=== PATIENT | male | born 1945 | race Caucasian/White ===

== ENCOUNTER 2022-03-11 16:02 | Outpatient (CLI) | payer MEDICARE, SELFPAY | END 2022-03-11 16:03 | disposition home or self-care (01) | LOC: AMB 03-17 11:31 | PROVIDERS: Visit Provider Family Medicine | DX: R07.89 Other chest pain (principal) | CPT/HCPCS: A0425; A0427 ==

== ENCOUNTER 2022-03-11 16:46 | Observation (INO) | payer MEDICARE, SELFPAY ==
[2022-03-11] VITALS (10 sets, daily range): BP systolic 81–109; BP diastolic 51–77; PULSE 81–90; RESP 14–20; TEMP 36–36.4; O2SAT 95–96; BMI 26.0; BMI 26.8
--- NOTE | 2022-03-11 17:12 | CRLHL7_ITS ---
For Patients: As a result of the Century Cures Act, medical imaging exams and procedure reports are released immediately into your electronic medical record. You may view this report before your referring provider. If you have questions, please contact your health care provider. INDICATION: Chest pain TECHNIQUE: Chest 2 views. COMPARISON: None FINDINGS: Cardiovascular and mediastinum: Heart size and vasculature are normal in caliber and appearance. Mediastinum is within normal limits. Sternotomy wires left-sided transvenous pacer device. Lungs and pleural spaces: Lungs are clear. No sign of infiltrate or mass. No sign of pleural effusion. No pneumothorax. Bones and soft tissues: No significant findings. IMPRESSION: Unremarkable chest. Dictated by Gulshan Schroeder MD @ 03/11/2022 5:39:19 PM Dictated by: Gulshan Schroeder MD @ 03/11/2022 17:39:23 (Electronically Signed)
[2022-03-11 17:35] LABS: Troponin, Point-of-Care* 0.03 ng/ml (0.01-0.04)
[2022-03-11 17:37] LABS: Basophils Absolute Auto 0.03 K/uL (0.00-0.30); Basophils Percent Auto 0.4 % (0.0-3.0); Eosinophils Absolute Auto 0.12 K/uL (0.00-0.50); Eosinophils Percent Auto 1.6 % (0.0-7.0); Hematocrit 46.8 % (37.0-53.0); Hemoglobin* 15.9 gm/dL (13.5-17.5); Immature Granulocytes Abs Auto 0.01 K/uL (0.00-0.30); Lymphocytes Absolute Auto 1.78 K/uL (0.90-2.90); Lymphocytes Percent Auto 23.9 % (20-44); Mean Corpuscular HGB Conc 34 gm/dL (32-36); Mean Corpuscular Hemoglobin 34 pg (26-34); Mean Corpuscular Volume 99 fL (80-100); Monocytes Percent Auto 10.5 % (0.0-11.0); Neutrophils Absolute Auto 4.73 K/uL (1.7-7.0); Neutrophils Percent Auto 63.5 % (42.0-72.0); Platelet Count* 95 K/uL (140-440); RDW Coefficient of Variation % 13.4 % (11.5-15.5); Red Blood Count 4.72 m/uL (4.30-5.90); White Blood Count* 7.45 K/uL (4.50-11.00)
[2022-03-11 17:39] LABS: Slide Review Reflex No
--- NOTE | 2022-03-11 17:45 | ED_ITS ---
HPI - General Adult General Chief complaint: Chest Pain Stated complaint: Chest pain Time Seen by Provider: 03/11/22 17:10 History of Present Illness HPI narrative: 76-year-old male coming in today because his defibrillator went off. States that he was in the garage drinking alcohol with his grandson when he felt lightheaded and brought him back in the house and that is when his defibrillator went off. They called EMS and he was transferred here. He states now he feels fine. Denies any chest pain or shortness of breath. He is complaining because he feels hungry. Tells me that at 1st he had a 4-5 liquor drinks then tells me it was only 2-3. He denies any recent illness. No cough, fevers or chills. No changes in his appetite. He denies a headache or blurry vision. His past medical history is significant for coronary artery disease, defibrillator placement, diabetes, hyperlipidemia, congestive heart failure. Related Data Home Medications Medication Instructions Recorded Confirmed albuterol sulfate 90 mcg/actuation 2 inh INHALATION Q8H PRN 03/11/22 03/11/22 aerosol inhaler apixaban 5 mg tablet 5 mg PO Q12H 03/11/22 03/11/22 aspirin 81 mg tablet,delayed 81 mg PO DAILY 03/11/22 03/11/22 release (Adult Aspirin Regimen) atorvastatin 40 mg tablet 40 mg PO DAILY 03/11/22 03/11/22 empagliflozin 25 mg tablet 25 mg PO DAILY 03/11/22 03/11/22 fluticasone propionate 230 2 inh INHALATION BID 03/11/22 03/11/22 mcg-salmeterol 21 mcg/actuation HFA inhaler gabapentin 300 mg capsule 600 mg PO Q8H 03/11/22 03/11/22 glipizide 10 mg tablet 10 mg PO BID 03/11/22 03/11/22 metformin 1,000 mg tablet 500 mg PO BID 03/11/22 03/11/22 nitroglycerin 0.4 mg sublingual 0.4 mg SUBLINGUAL Q5-15M PRN 03/11/22 03/11/22 tablet semaglutide 0.25 mg or 0.5 mg (2 0.5 mg SUBCUT QWEEK 03/11/22 03/11/22 mg/1.5 mL) subcutaneous pen injector vitamin B complex (B 1 tab PO DAILY 03/11/22 03/11/22 Complex-Vitamin B12 tablet) Allergies Allergy/AdvReac Type Severity Reaction Status Date / Time No Known Allergies Allergy Verified 03/11/22 16:58 Review of Systems Status of ROS: Reports: 10 or more systems reviewed and unremarkable except as noted in History and below [facility] Social History Smoking Status: Never smoker Do you use any of these nicotine containing products: None Second hand tobacco smoke exposure: No How often do you have a drink containing alcohol: 2-3 times a week AUDIT-C Alcohol total score: 3 Non-prescribed substance use: denies use service: Yes Exam Narrative: Exam Narrative: Well-nourished well-developed patient in no acute distress. Alert and oriented. Answers questions appropriately. However, he is clearly intoxicated. He can take deep breaths without any discomfort and is not in any respiratory distress. HEENT: Normocephalic. Pupils are equally round reactive to light. Extraocular muscles are intact. Conjunctivae are moist without any icterus noted. Slightly dry mucous membranes. Posterior pharynx is normal. Neck is soft without any lymphadenopathy or thyromegaly. No masses are appreciated. Cardiovascular: Heart is regular rate and rhythm S1 and S2 are present. Lungs: Clear to auscultation bilaterally no wheezes rhonchi or rales are appreciated. Patient takes deep breaths without any discomfort. Abdomen: Soft and nontender nondistended with normal bowel sounds. No guarding or rebound. Extremities: Bilateral lower extremities are without edema. Skin: Well perfused without any obvious rashes. Const: Vital Signs, click to edit/add: Vital Signs - 24 hr 03/11/22 16:51 03/11/22 18:20 03/11/22 18:30 Pulse Rate [Right Pulse Oximeter] 88 Respiratory Rate 18 Blood Pressure [Ri ght Upper Arm] 105/70 96/60 94/57 L Pulse Oximetry 03/11/22 18:31 03/11/22 18:36 03/11/22 18:46 Pulse Rate [Right Pulse Oximeter] Respiratory Rate Blood Pressure [Ri ght Upper Arm] 89/71 L 81/57 L 86/51 L Pulse Oximetry 03/11/22 19:15 Pulse Rate [Right Pulse Oximeter] 81 Respiratory Rate 20 Blood Pressure [Ri ght Upper Arm] 105/70 Pulse Oximetry 95 Course Course Hospital Course: Patient received halfL of normal saline EN route. When he arrived his systolic blood pressure was 105. He was mentating normally. Initial EKG showed normal sinus rhythm with a first-degree AV block and some nonspecific T-wave abnormalities. His troponin was within normal range. Patient was placed on the heart monitor in soon after arrival and was found he had a 13 beat run of V-tach for which he was asymptomatic. Aside from a slightly low potassium labs were unremarkable. I did discuss the patient with Dr. Wallace, cardiology at [facility], who recommended patient be admitted and monitored overnight. He also recommended that his defibrillator be interrogated. We discussed his low blood pressures which had now dropped into the 80s systolic, nursing staff at [facility] was able to see that he was discharged home with a blood pressure of mid [address] Wallace concluded that the patient likely runs very low given his poor EF and was not terribly concerned about this at this time. Vital Signs Vital signs: Initial Vital Signs Pulse Rate 88 03/11/22 16:51 Pulse Rhythm 03/11/22 16:51 Pulse Strength 3+ Normal 03/11/22 16:51 Respiratory Rate 18 03/11/22 16:51 Blood Pressure 105/70 03/11/22 16:51 Blood Pressure Mean 81 03/11/22 16:51 Blood Pressure Position Supine 03/11/22 16:51 Oxygen Delivery Method 03/11/22 16:51 Vital Signs Pulse Rate 88 03/11/22 16:51 Respiratory Rate 18 03/11/22 16:51 Blood Pressure 105/70 03/11/22 16:51 Pulse Rate 81 03/11/22 19:15 Respiratory Rate 20 03/11/22 19:15 Blood Pressure 105/70 03/11/22 19:15 Pulse Oximetry 95 03/11/22 19:15 Medical Decision Making [facility] Narrative Medical decision making narrative: 76-year-old male status post defibrillation will be admitted for observation. He is acutely intoxicated with a blood alcohol is 0.12. He is receiving a L of normal saline right now with added potassium. Magnesium was normal. Patient will be again admitted for further management. Lab Data Lab results reviewed: Yes I reviewed the patient's lab results Labs: Lab Results 03/11/22 03/11/22 03/11/22 Range/Units 17:12 17:23 17:23 WBC 7.45 (4.50-11.00) K/uL RBC 4.72 (4.30-5.90) m/uL Hgb 15.9 (13.5-17.5) gm/dL Hct 46.8 (37.0-53.0) % MCV 99 (80-100) fL MCH 34 (26-34) pg MCHC 34 (32-36) gm/dL RDW Coeff of Fallon 13.4 (11.5-15.5) % Plt Count 95 L (140-440) K/uL Neut % (Auto) 63.5 (42.0-72.0) % Lymph % (Auto) 23.9 (20-44) % [place] % (Auto) 10.5 (0.0-11.0) % Eos % (Auto) 1.6 (0.0-7.0) % Baso % (Auto) 0.4 (0.0-3.0) % Neut # (Auto) 4.73 (1.7-7.0) K/uL Lymph # (Auto) 1.78 (0.90-2.90) K/uL [place] # (Auto) 0.80 (0.00-0.90) K/UL Eos # (Auto) 0.12 (0.00-0.50) K/uL Baso # (Auto) 0.03 (0.00-0.30) K/uL Abs Immat Gran (auto) 0.01 (0.00-0.30) K/uL Sodium 138 (135-149) mmol/L Potassium 3.3 L (3.6-5.1) mmol/L Chloride 108 (96-114) mmol/L Carbon Dioxide 22 (20-32) mmol/L BUN 22 (7-30) mg/dL Creatinine 1.4 (0.5-1.5) mg/dL Estimated Creat Clear 55.33 Estimated GFR 53 ml/min Glucose 102 (60-115) mg/dL Calcium 8.6 (8.4-10.6) mg/dL Magnesium 2.2 (1.5-2.6) mg/dL Total Bilirubin 0.5 (0.1-1.5) mg/dL Direct Bilirubin 0.3 (0.0-0.5) mg/dL AST 43 H (12-35) U/L ALT 41 (4-50) U/L Alkaline Phosphatase 70 (40-150) U/L Total Protein 5.8 L (6.0-8.3) g/dL Albumin 3.7 (3.3-5.0) g/dL Ethyl Alcohol 0.12 H (0.01-0.03) % POC Troponin I 0.03 (0.01-0.04) ng/ml 03/11/22 Range/Units 18:52 WBC (4.50-11.00) K/uL RBC (4.30-5.90) m/uL Hgb (13.5-17.5) gm/dL Hct (37.0-53.0) % MCV (80-100) fL MCH (26-34) pg MCHC (32-36) gm/dL RDW Coeff of Fallon (11.5-15.5) % Plt Count (140-440) K/uL Neut % (Auto) (42.0-72.0) % Lymph % (Auto) (20-44) % [place] % (Auto) (0.0-11.0) % Eos % (Auto) (0.0-7.0) % Baso % (Auto) (0.0-3.0) % Neut # (Auto) (1.7-7.0) K/uL Lymph # (Auto) (0.90-2.90) K/uL [place] # (Auto) (0.00-0.90) K/UL Eos # (Auto) (0.00-0.50) K/uL Baso # (Auto) (0.00-0.30) K/uL Abs Immat Gran (auto) (0.00-0.30) K/uL Sodium (135-149) mmol/L Potassium (3.6-5.1) mmol/L Chloride (96-114) mmol/L Carbon Dioxide (20-32) mmol/L BUN (7-30) mg/dL Creatinine (0.5-1.5) mg/dL Estimated Creat Clear Estimated GFR ml/min Glucose (60-115) mg/dL Calcium (8.4-10.6) mg/dL Magnesium (1.5-2.6) mg/dL Total Bilirubin (0.1-1.5) mg/dL Direct Bilirubin (0.0-0.5) mg/dL AST (12-35) U/L ALT (4-50) U/L Alkaline Phosphatase (40-150) U/L Total Protein (6.0-8.3) g/dL Albumin (3.3-5.0) g/dL Ethyl Alcohol (0.01-0.03) % POC Troponin I 0.04 (0.01-0.04) ng/ml Imaging Data Chest x-ray: Attestation: I have reviewed the pertinent imaging results. My impression: Normal chest Radiologist's impression: FINDINGS: Cardiovascular and mediastinum: Heart size and vasculature are normal in caliber and appearance. Mediastinum is within normal limits. Sternotomy wires left-sided transvenous pacer device. Lungs and pleural spaces: Lungs are clear. No sign of infiltrate or mass. No sign of pleural effusion. No pneumothorax. Bones and soft tissues: No significant findings. IMPRESSION: Unremarkable chest. ECG Data Attestation: I personally reviewed and interpreted this ECG as follows: (Normal sinus rhythm with first-degree AV block and nonspecific T-wave abnormality) Discharge Plan Discharge Prescriptions: No Action albuterol sulfate 90 mcg/actuation HFA aerosol inhaler 2 inh inhalation Q8H PRN0RF apixaban 5 mg tablet 5 mg PO Q12H 0RF atorvastatin 40 mg tablet 40 mg PO DAILY 0RF empagliflozin 25 mg tablet 25 mg PO DAILY 0RF fluticasone propion-salmeterol 230-21 mcg/actuation HFA aerosol inhaler 2 inh inhalation BID 0RF gabapentin 300 mg capsule 600 mg PO Q8H 0RF glipizide 10 mg tablet 10 mg PO BID 0RF metformin 1,000 mg tablet 500 mg PO BID 0RF nitroglycerin 0.4 mg tablet, sublingual 0.4 mg sublingual Q5-15M PRN0RF Rx Instructions: do not exceed 3 doses per episode semaglutide 0.25 mg or 0.5 mg(2 mg/1.5 mL) pen injector 0.5 mg subcut QWEEK 0RF vitamin B complex [B Complex-Vitamin B12] Tablet 1 tab PO DAILY 0RF aspirin [Adult Aspirin Regimen] 81 mg tablet,delayed release (/EC) 81 mg PO DAILY 0RF Follow Up/Referrals: Provider,Not a Local [Primary Care Provider] -
[2022-03-11 17:59] LABS: Albumin* 3.7 g/dL (3.3-5.0); Chloride* 108 mmol/L (96-114); Potassium* 3.3 mmol/L (3.6-5.1); Sodium* 138 mmol/L (135-149)
[2022-03-11 18:01] LABS: Creatinine* 1.4 mg/dL (0.5-1.5); Est. Creatinine Clearance* 55.33; Estimated Glomerular Filt Rate 53 ml/min
[2022-03-11 18:02] LABS: Alanine Aminotransferase* 41 U/L (4-50); Alkaline Phosphatase* 70 U/L (40-150); Aspartate Amino Transferase* 43 U/L (12-35); Bilirubin Direct* 0.3 mg/dL (0.0-0.5); Bilirubin Total* 0.5 mg/dL (0.1-1.5); Blood Urea Nitrogen* 22 mg/dL (7-30); Calcium* 8.6 mg/dL (8.4-10.6); Carbon Dioxide* 22 mmol/L (20-32); Glucose* 102 mg/dL (60-115); Total Protein* 5.8 g/dL (6.0-8.3)
[2022-03-11 18:03] LABS: Ethanol* 0.12 % (0.01-0.03)
--- NOTE | 2022-03-11 18:45 | ED.NURSE ---
13 beats vtach at 1826. aware.
[2022-03-11 18:54] LABS: Magnesium* 2.2 mg/dL (1.5-2.6)
[2022-03-11] MEDS: 0.9 % SODIUM CHLORIDE 1000 ml 1,000 ML IV (18:56)
[2022-03-11 19:24] LABS: Troponin, Point-of-Care* 0.04 ng/ml (0.01-0.04)
[2022-03-11] MEDS: POTASSIUM CHLORIDE 10 MEQ/100 ML PIGGYBACK 100 MEQ IVPB (19:26)
--- NOTE | 2022-03-11 19:52 | W.PC.EDHO ---
Primary Language: Preferred Language: Orientation Status: [X] Alert & Oriented [] Slight Confusion [] Known Dx Dementia Transfers By: [x] Assist of 1 [] Assist of 2 [] Lift Active Medications Generic Name Dose Route Start Last Admin Trade Name Freq PRN Reason Stop Dose Admin Potassium Chloride 10 meq in 100 mls @ 100 mls/hr 03/11/22 18:51 03/11/22 19:26 Potassium Chloride IVPB 03/11/22 19:50 100 mls/hr ONCE ONE Administration Discontinued Medications Generic Name Dose Route Start Last Admin Trade Name Freq PRN Reason Stop Dose Admin Sodium Chloride 1,000 mls @ 1,000 mls/hr 03/11/22 18:45 03/11/22 18:56 0.9 % Sodium Chloride 1000 Ml IV 03/11/22 19:44 1,000 mls/hr .Q1H EMMANUEL Administration Description of Symptoms ED Triage Present Problem BIBA after defib fired. Hx of triple bipass and Description pacemaker, MIx3, DM. Was drinking etoh this afternoon - started feeling weak and went to lay down and defib fired. Nitro given by EMS ED Triage Date of Onset of 03/11/22 Symptoms IV Insertion/Site Date of IV Line Insertion [ 03/11/22 Left Forearm] Oxygen Administration Pulse Oximetry 95 Oxygen Delivery Method Room Air Oxygen Delivery Method Room Air Cardiac Monitoring EKG Method [employer] EKG Method 12 Lead EKG Method 12 Lead EKG Method 12 Lead
--- NOTE | 2022-03-11 20:28 | PM.IMHP1 ---
Hospitalist- H&P: HPI History of Present Illness Time Seen by Provider: 19:00 Date Seen: 03/11/22 Chief complaint: Chest pain Narrative: Gulshan Crouch is a 76 year old man who presents the emergency department after summoning 911 help after his automatic implantable defibrillator discharged today. He was in his usual state of health until his fibrillator discharge this afternoon. Earlier in the day he had been outside using his ?weed whacker.? After this work he went to the [facility] where he was drinking gagandeep and Coke with a friend. Initially he tells the physician in the emergency department that he drank perhaps 4-5 such drinks. Subsequently he told the same emergency department physician that he may be drink 2 to 3 such drinks. By the time I ask him how much he had drank he tells me he had 2 drinks. Subsequently, he went inside his home because he was feeling somewhat dizzy. This is when he felt his defibrillator discharge. He states that it felt like a light discharge compared to what he has experienced in the past. The last time he had an experience with his defibrillator discharging was about 3 years ago, when he had 6 discharges in a role. In August or September of this year he had a new defibrillator implanted. This is the 1st time that he has felt his defibrillator discharge since the episode 3 years ago. Denies chest heaviness, pressure, tightness, or pain. Denies syncope or near-syncope. Often feels lightheaded. States systolic blood pressures tend to run low. Denies cough for shortness of breath. No other anginal equivalent. Denies palpitations. Denies fevers, rigors, diaphoresis. No recent trauma or injury. Denies nausea or vomiting. Denies dyspepsia. States he is hungry. No recent increase in lower extremity edema. States bowel and bladder function are functioning normally. Denies any new focal motor neurologic deficits. States blood sugars have been well controlled. Denies hypoglycemia. Review of Systems Status of ROS: Reports: 10 or more systems reviewed and unremarkable except as noted in History and below Narrative: Tells me he ordinarily drinks perhaps 2-3 drinks 2-3 times per week. Denies use of street or recreational drugs. Continues to smoke roughly 3/4 of pack cigarettes per day. He tells me he receives his medical care at the [place], [place]. Primary care physician is Dr. Efren Monteiro. 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 Timo cell phone number is [phone]. Timo's home phone number is [phone]. Lives with his son, [id number], granddaughter. He is a for the past 2 years. He starting to date once again. Also has a dog and a cat. Retired. PFSH PFS Social History Smoking Status: Never smoker Do you use any of these nicotine containing products: None Second hand tobacco smoke exposure: No How often do you have a drink containing alcohol: 2-3 times a week AUDIT-C Alcohol total score: 3 Non-prescribed substance use: denies use service: Yes Meds Home Medications and Allergies Home Medications Medication Instructions Recorded Confirmed Type albuterol sulfate 90 mcg/actuation 2 inh INHALATION Q8H PRN 03/11/22 03/11/22 History aerosol inhaler apixaban 5 mg tablet 5 mg PO Q12H 03/11/22 03/11/22 History aspirin 81 mg tablet,delayed 81 mg PO DAILY 03/11/22 03/11/22 History release (Adult Aspirin Regimen) atorvastatin 40 mg tablet 40 mg PO DAILY 03/11/22 03/11/22 History empagliflozin 25 mg tablet 25 mg PO DAILY 03/11/22 03/11/22 History fluticasone propionate 230 2 inh INHALATION BID 03/11/22 03/11/22 History mcg-salmeterol 21 mcg/actuation HFA inhaler gabapentin 300 mg capsule 600 mg PO Q8H 03/11/22 03/11/22 History glipizide 10 mg tablet 10 mg PO BID 03/11/22 03/11/22 History metformin 1,000 mg tablet 500 mg PO BID 03/11/22 03/11/22 History nitroglycerin 0.4 mg sublingual 0.4 mg SUBLINGUAL Q5-15M PRN 03/11/22 03/11/22 History tablet semaglutide 0.25 mg or 0.5 mg (2 0.5 mg SUBCUT QWEEK 03/11/22 03/11/22 History mg/1.5 mL) subcutaneous pen injector vitamin B complex (B 1 tab PO DAILY 03/11/22 03/11/22 History Complex-Vitamin B12 tablet) Home Medication Comments: Taking his medications as prescribed. Allergies Allergy/AdvReac Type Severity Reaction Status Date / Time No Known Allergies Allergy Verified 03/11/22 16:58 Exam Narrative: Exam Narrative: Awake. Alert. Articulate. Oriented to self, place, time, situation. Seems somewhat jovial. Mood and affect are congruent. Symmetrically mildly decreased hearing bilaterally. Vision is preserved. No icterus or conjunctival injection. Midline nasal septum. Buccal mucosa is dry with dentition in fair repair. Midline trachea. Normal thyroid. Neck supple. Lungs clear to auscultation, without wheezing, rhonchi, or rales. Chest wall excursions are full. No CVA tenderness. Heart tones with regular rhythm, normal S1-S2, no murmur, gallop, or rub. Abdomen is obese with active bowel sounds, soft, nontender. Extremities without edema bilaterally. Skin is dry, warm, intact. No petechiae, cyanosis, or rashes. No focal motor neurologic deficits. No tremor, asterixis, or ataxia. Independent with transfers, station, and gait. Const: Vital Signs, click to edit/add: Vital Signs - 24 hr 03/11/22 16:51 03/11/22 18:20 03/11/22 18:30 Pulse Rate [Right Pulse Oximeter] 88 Respiratory Rate 18 Blood Pressure [Ri ght Upper Arm] 105/70 96/60 94/57 L Pulse Oximetry 03/11/22 18:31 03/11/22 18:36 03/11/22 18:46 Pulse Rate [Right Pulse Oximeter] Respiratory Rate Blood Pressure [Ri ght Upper Arm] 89/71 L 81/57 L 86/51 L Pulse Oximetry 03/11/22 19:15 03/11/22 20:08 Pulse Rate [Right Pulse Oximeter] 81 81 Respiratory Rate 20 14 Blood Pressure [Ri ght Upper Arm] 105/70 108/67 Pulse Oximetry 95 95 Hospitalist - H&P: Result Labs Labs: Short CBC 03/11/22 Range/Units 17:23 WBC 7.45 (4.50-11.00) K/uL Hgb 15.9 (13.5-17.5) gm/dL Hct 46.8 (37.0-53.0) % Plt Count 95 L (140-440) K/uL BMP 03/11/22 17:23 Sodium 138 Potassium 3.3 L Chloride 108 Carbon Dioxide 22 BUN 22 Creatinine 1.4 Glucose 102 Calcium 8.6 Liver Function 03/11/22 Range/Units 17:23 Total Bilirubin 0.5 (0.1-1.5) mg/dL Direct Bilirubin 0.3 (0.0-0.5) mg/dL AST 43 H (12-35) U/L ALT 41 (4-50) U/L Alkaline Phosphatase 70 (40-150) U/L Albumin 3.7 (3.3-5.0) g/dL ECG ECG interpretation date: 03/11/22 ECG interpretation time: 19:00 Prior ECG tracings: available for review Interpretation: Normal sinus rhythm with first-degree AV block. Imaging Chest x-ray: Attestation: I have reviewed the pertinent imaging results. Radiologist's impression: No acute changes. Status post open heart surgery in the past. Implanted defibrillator with leads appropriately placed. Assessment and Plan Assessment and plan (1) Defibrillator discharge: Status: Acute Assessment and Plan: Likely the defibrillator discharged due to ischemic cardiomyopathy, chronic dysrhythmia, and exacerbated by alcohol consumption, dehydration from working outdoors. Admit to observation. Monitor on telemetry. Monitor trop I's serially and ECG. Will need defibrillator interrogation in near future. Continue with current medical support. (2) Ventricular tachycardia: Status: Acute Assessment and Plan: 13 beat run in the ED today. Reviewed with superintendent plant who indicates that this is chronic. (3) AICD (automatic cardioverter/defibrillator) present: Status: Acute (4) Ischemic cardiomyopathy with implantable cardioverter-defibrillator (ICD): Problem comment: EF ~20% 2006 ECHO Status: Acute (5) Coronary artery disease: Problem comment: 1995 inferior VA, PTCA 06/13/11 CABG x 3 vessels: DEAL to LAD, SVG to PDA, SVG to OM per Dr. Pineda Status: Acute Assessment and Plan: Continue with supportive medications (6) Hypertension: Status: Acute (7) Diabetes mellitus type 2 in obese: Status: Acute Assessment and Plan: Continue with current meds. Monitor FSBG while in hospital QID and cover with SS insulin. (8) Combined systolic and diastolic congestive heart failure, NYHA class 2: Status: Acute (9) Combined systolic and diastolic ACC/AHA stage C congestive heart failure: Status: Acute (10) Dyslipidemia associated with type 2 diabetes mellitus: Status: Acute (11) Chronic anticoagulation: Problem comment: Apixaban 5 mg po BID Status: Acute (12) Atrial fibrillation: Status: Acute Assessment and Plan: Currently in NSR (13) Tobacco dependence: Status: Acute Assessment and Plan: He declines nicotine support in hospital Will nonetheless order nicotine inhaler PRN (14) Alcohol intoxication: Status: Acute Assessment and Plan: Patient is giving us mixed messages about his drinking habits. [facility] protocol monitoring and coverage in hospital. Strongly cautioned him about the increased risk of his defibrillator discharging when acutely intoxicated with alcohol. Plan 1. Reviewed my impression with the patient and his son, Timo. Answered their questions. Patient and son are agreeable to admission to observation. 2. Asked the patient if he could bring in his device so that we can interrogate his defibrillator. He refused to do so. He states that he will do so once he returns to his home and provide that information to the [facility] in [place], [place]. 3. Discussed general measures of maintaining his state of hydration during this very hot weather that we are now having.
[2022-03-11 21:12] LABS: SARS PCR* Negative SARS-CoV-2 (Negative)
[2022-03-11] MEDS: METFORMIN 1,000 MG TABLET 500 MG PO (22:48)
[2022-03-11] MEDS: glipiZIDE 5 MG TABLET 10 MG PO (22:49)
[2022-03-11] MEDS: GABAPENTIN 300 MG CAPSULE 600 MG PO (22:50)
[2022-03-11] MEDS: POTASSIUM BICARB 25 MEQ EFFERVESCENT TAB PO (22:51)
[2022-03-11] MEDS: APIXABAN 5 MG TABLET PO (22:51)
[2022-03-11 23:06] LABS: Phosphorus* 3.4 mg/dL (2.5-4.5)
[2022-03-11 23:19] LABS: Troponin I* 0.04 ng/mL (0.01-0.04)
[2022-03-12] MEDS: POTASSIUM BICARB 25 MEQ EFFERVESCENT TAB PO (01:48)
[2022-03-12 04:00] VITALS: BP 101/67; PULSE 78; RESP 20; TEMP 36.2; O2SAT 92
--- NOTE | 2022-03-12 06:05 | PC.ADMIT ---
[email or web address] [facility] Admission Note:admitted from the ED at 2130. Stable on arrival. patient vitals taken and oriented to the room The patient,Gulshan Crouch,76 y/o, was given written information regarding hospital policies, unit procedures and contact persons. Patient's smoking status: Never smoker. Vital Signs - 8 hr 03/12/22 04:00 Temperature 97.2 F L Pulse Rate [Pulse Oximeter] 78 Respiratory Rate 20 Blood Pressure [Right Arm] 101/67 Pulse Oximetry 92
--- NOTE | 2022-03-12 06:06 | PC.NURSE ---
Alert and oriented x4. Admitted overnight with stable vitals. No new concerns noted overnight. Remained on continuous telemetry and oximety monitoring.
[2022-03-12] MEDS: GABAPENTIN 300 MG CAPSULE 600 MG PO (06:18)
[2022-03-12 07:00] VITALS: BP 99/66; PULSE 73; PULSE 77; RESP 18; TEMP 36.6; O2SAT 93
[2022-03-12] MEDS: glipiZIDE 5 MG TABLET 10 MG PO (07:43)
[2022-03-12] MEDS: METFORMIN 1,000 MG TABLET 500 MG PO (07:43)
--- NOTE | 2022-03-12 08:16 | PC.NURSE ---
UPDATED ON NO LABS DRAWN THIS MORNING, PER MD NO LAB DRAW NEEDED THIS MORNING.
[2022-03-12] MEDS: ASPIRIN 81 MG TABLET EC PO (08:36)
[2022-03-12] MEDS: ATORVASTATIN CALCIUM 40 MG TABLET PO (08:36)
[2022-03-12] MEDS: APIXABAN 5 MG TABLET PO (08:36)
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
[2022-03-12 09:15] LABS: Chloride* 111 mmol/L (96-114); Glucose* 229 mg/dL (60-115); Potassium* 4.6 mmol/L (3.6-5.1); Sodium* 141 mmol/L (135-149)
[2022-03-12 09:16] LABS: Blood Urea Nitrogen* 20 mg/dL (7-30); Calcium* 8.5 mg/dL (8.4-10.6); Carbon Dioxide* 21 mmol/L (20-32); Creatinine* 1.2 mg/dL (0.5-1.5); Est. Creatinine Clearance* 64.55; Estimated Glomerular Filt Rate 63 ml/min
[2022-03-12 09:30] LABS: Albumin* 3.7 g/dL (3.3-5.0); Phosphorus* 3.2 mg/dL (2.5-4.5); Troponin I* 0.04 ng/mL (0.01-0.04)
--- NOTE | 2022-03-12 10:01 | PC.NURSE ---
Discharge: Pt. is alert and oriented x3. Cooperative and pleasant. Pt. denies any chest pain, pain, N/V. Pt. has 1 degree AV block w/BBB on tele. Pt. is on room air, IV left forearm is patent and intact. Removed at 1000 prior to discharge. Discharge instructions signed. Pt. awaiting on ride home will be leaving around 1030.
--- OUTSIDE RECORDS SUMMARY | 2022-04-02 16:02 | XMS_ITS | Continuity of Care Document ---
:1945 Author Organization [facility] Care Team Providers Name Role Phone [facility] Unavailable Unavailable Problems Combined list of problems from Department of Defense and [facility] facilities. It does not include entries that were removed or entered in error. Problem Status Onset Problem Date of Comments Source Date Type Resolution Chronic systolic Active Condition Jun 21, [place] heart failure 011 2014 Entered [facility] By: SAKSHI CROUCH Comment: S/P ICD placement in 2011. January 17, 2021 Entered By: SAKSHI CROUCH Comment: Echo (12/2020 ANW) EF 23%, LAE, mod global hypokinesis. Coronary artery Active Condition Jun 21, [place] disease 994 2014 Entered [facility] By: SAKSHI CROUCH Comment: S/P inferior [place] in 1993. Jun 21, 2015 Entered By: SAKSHI CROUCH Comment: S/P atherectomy RCA in 1993. Jun 21, 2015 Entered By: SAKSHI CROUCH Comment: S/P CABG x 3 in 2010. Cardiac defibrillator Active Condition [place] in situ [facility] Chronic low back pain Active Condition [facility] [place] Chronic obstructive Active Condition Jun 26 [place] pulmonary disease 2010 Entered [facility] (SNOMED CT [id number]) By: SAKSHI CROUCH Comment: FEV1/FVC (05/2011) 2.47/3.46. FEV1 58% pred. FEV1% 70. History of Active Condition [place] adenomatous polyp of [facility] colon (SNOMED CT 414043399) Hyperlipidemia Active Condition [place] [facility] Hypertension Active Condition [place] [facility] Peripheral neuropathy Active Condition [facility] Persistent atrial [place] fibrillation [facility] Status post left Active Condition [place] inguinal hernia [facility] CS repair Thrombocytopenia Active [place] (SNOMED CT [id number]) [facility] Tobacco use Active Condition [place] [facility] Type 2 diabetes Active Condition [place] mellitus [facility] Unifocal PVCs [facility] POL[facility] Diagnosis: ICD-10-CM active Diagnosis [place] I50.9 Heart failure, [facility] unspecifiedwith Provider Comments: Heart Failure, unspecified Diagnosis: ICD-10-CM active Diagnosis [place] E11.9 Type 2 diabetes [facility] mellitus without complicationswith Provider Comments: Type 2 diabetes mellitus ([facility] [id number]) Diagnosis: ICD-10-CM active Diagnosis [place] Z95.810 Presence of [facility] automatic (implantable) cardiac defibrillatorwith Provider Comments: Cardiac defibrillator in situ ([facility] [id number]) Diagnosis: ICD-10-CM active Diagnosis [place] Z51.81 Encounter for [facility] therapeutic drug level monitoringwith Provider Comments: Encounter for therapeutic drug level monitoring Diagnosis: ICD-10-CM active Diagnosis [place] I48.19 Other [facility] persistent atrial fibrillationwith Provider Comments: Persistent atrial fibrillation ([facility] [id number]) Admit Reason: PVI GEN active Diagnosis [place] CHANGE [facility] Diagnosis: ICD-10-CM active Diagnosis [place] D69.6 [facility] Thrombocytopenia, unspecifiedwith Provider Comments: Thrombocytopenia ([facility] [id number]) Diagnosis: ICD-10-CM active Diagnosis [place] I51.7 [facility] Cardiomegalywith Provider Comments: Cardiomegaly Diagnosis: ICD-10-CM active Diagnosis [place] Z01.818 Encounter for [facility] other preprocedural examinationwith Provider Comments: Encounter for other preprocedural examination Diagnosis: ICD-10-CM active Diagnosis [place] I49.3 Ventricular [facility] premature depolarizationwith Provider Comments: Unifocal PVCs ([facility] [id number]) Diagnosis: ICD-10-CM active Diagnosis [place] Z01.818 Encounter for [facility] other preprocedural examinationwith Provider Comments: Encounter for other Preprocedural Examination Diagnosis: ICD-10-CM active Diagnosis [place] Z95.810 Presence of [facility] automatic (implantable) cardiac defibrillatorwith Provider Comments: Presence of automatic (implantable) cardiac defibrillator Diagnosis: ICD-10-CM active Diagnosis [place] I47.2 Ventricular [facility] tachycardiawith Provider Comments: Ventricular tachycardia Diagnosis: ICD-10-CM active Diagnosis [place] Z13.6 Encounter for [facility] screening for cardiovascular disorderswith Provider Comments: Encounter for Screening for Cardiovascular Disorders Diagnosis: ICD-10-CM active Diagnosis [place] I50.22 Chronic [facility] systolic (congestive) heart failurewith Provider Comments: Chronic systolic heart failure ([facility] [id number]) Diagnosis: ICD-10-CM active Diagnosis [place] J44.9 Chronic [facility] obstructive pulmonary disease, unspecifiedwith Provider Comments: Chronic obstructive pulmonary disease ([facility] [id number]) Diagnosis: ICD-10-CM active Diagnosis [place] Z79.01 longterm [facility] (current) use of anticoagulantswith 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 Diagnosis: ICD-10-CM active Diagnosis [place] Z71.81 Spiritual or [facility] mu-ism counselingwith Provider Comments: Spiritual or mu-ism counseling Admit Reason: active Diagnosis [place] A-FIB,DOFETILIDE LOAD [facility] Diagnosis: ICD-10-CM active Diagnosis [place] I50.22 Chronic [facility] S systolic (congestive) heart failurewith Provider Comments: Chronic Systolic (Congestive) Heart Failure Diagnosis: ICD-10-CM active Diagnosis [place] E11.9 Type 2 diabetes [facility] mellitus without complicationswith Provider Comments: Type 2 diabetes mellitus without complications Diagnosis: ICD-10-CM active Diagnosis [place] J44.9 Chronic [facility] obstructive pulmonary disease, unspecifiedwith Provider Comments: COPD, Stable Diagnosis: ICD-10-CM active Diagnosis [place] I48.19 Other [facility] persistent atrial fibrillationwith Provider Comments: Persistent atrial fibrillation (SNOMED CT [id number]) Diagnosis: ICD-10-CM active Diagnosis [place] G63 Polyneuropathy in [facility] diseases classified elsewherewith Provider Comments: Peripheral neuropathy ([facility] [id number]) Diagnosis: ICD-10-CM active Diagnosis [place] M54.17 Radiculopathy, [facility] lumbosacral regionwith Provider Comments: Radiculopathy, [place] Medications Combined list of outpatient medications from Department of Defense and Veterans Affairs facilities. Medications provided include 1) outpatient medications from the last 15 months, and 2) patient-reported medications. Medication Details Route Status Patient Prescription Prescription Last Ordering Order Source Instructions Expires Number Dispense Provider Date Date ADVAIR HFA Active [id number] [place] 12/24 3/ Pharmac (FLUTICASON 1 R,MAXIMILIANO 2020 y Da ta E/SALMETERO Transac L), tion 115-21MCG, Service HFA AER AD, Facilit INHALATION, y GLAXOSMITHK LINE, 12 g CANISTER ALBUTEROL INHALE 2 INHALA ACTIVE 08/11/2022 [id number] JENIFFER GALLEGOS, 08/10/ [place] 90MCG/ACTUA PUFFS BY TION 2 JAYY L 2020 [place] [facility] T (CFC-F) INHALATI HCS INHL,ORAL,8 ON FOUR .5GM DOSE TIMES A COUNTER DAY NEEDED FOR SHORTNES S OF BREATH *SHAKE WELL* (FOR IMMEDIAT E RELIEF) ALBUTEROL INHALE 2 INHALA DISCONT 06/21/2021 [id number] H LISA,BR 06/22/ [place] 90MCG/ACTUA PUFFS BY TION INUE 1 UCE R 2020 [place] VA T (CFC-F) INHALATI HCS INHL,ORAL,8 ON FOUR .5GM DOSE TIMES A COUNTER DAY NEEDED FOR SHORTNES S OF BREATH *SHAKE WELL* (FOR IMMEDIAT E RELIEF) APIXABAN 5 TAKE ONE Active 03/27/2022 [id number] HELMR ICK, 06/01/ [place] MG ORAL TAB TABLET 1 2020 [place] BY MOUTH [facility] EVERY 12 HOURS TO PREVENT BLOOD CLOTS, STROKE APIXABAN 5 TAKE ONE Discont 01/19/2022 [id number] HOWL ETT, 03/27/ [place] MG ORAL TAB TABLET inued 1 MEGHAN Y 2020 alok s BY MOUTH [facility] EVERY 12 HOURS TO PREVENT BLOOD CLOTS, STROKE APIXABAN 5 TAKE ONE Discont 02/14/2021 [id number] THOL AKANA 01/19/ [place] MG ORAL TAB TABLET inued 1 BOOGIE2020 [place] BY MOUTH [facility] TWICE A ISHNA DAY TO [facility] PREVENT BLOOD CLOTS APIXABAN TAKE ONE ORALLY ACTIVE 03/27/2022 [id number] HELMRI CK, 03/26/ [place] 5MG TAB TABLET 2 2020 [place] BY MOUTH [facility] EVERY 12 HOURS TO PREVENT BLOOD CLOTS, STROKE APIXABAN TAKE ONE ORALLY DISCONT 01/19/2022 [id number] HOW EVELIO,K 01/18/ [place] 5MG TAB TABLET INUED 1 RISTIN Y 2020 [place] BY MOUTH (EDIT) [facility] EVERY 12 HOURS TO PREVENT BLOOD CLOTS, STROKE APIXABAN TAKE ONE ORALLY DISCONT 02/14/2021 [id number] THO LAKANA 01/17/ [place] 5MG TAB TABLET INUED 1 BOOGIE,[facility] 2020 [place] BY MOUTH (EDIT) [facility] TWICE A NA NARAS DAY TO PREVENT BLOOD CLOTS ASCORBIC TAKE TWO ACTIVE JJ PELAEZ [place] ACID 500MG TABLETS JONI A 2020 [place] [facility] TAB EVERY HCS DAY atorvastati TAKE Active 06/21/2022 [id number] IWLLA, 12/29/ [place] n (U/D) 80 ONE-HALF 2 SAKSHI R 2021 [place] MG ORAL TAB TABLET [facility] BY MOUTH AT BEDTIME FOR CHOLESTE ROL atorvastati TAKE Discont 10/31/2021 [id number] WILLA , 06/23/ [place] n (U/D) 80 ONE-HALF inued 1 SAKSHI R 2020 [place] MG ORAL TAB TABLET [facility] BY MOUTH AT BEDTIME FOR CHOLESTE ROL ATORVASTATI TAKE ORALLY ACTIVE 06/21/2022 [id number] RACHEL Kumar,BR 09/01/ [place] 80MG ONE-HALF 2 UCE R 2021 [place] TAB TABLET HCS BY MOUTH AT BEDTIME FOR CHOLESTE ROL ATORVASTATI TAKE ORALLY DISCONT 10/31/2021 [id number] H LISA,JORGE ALBERTO 11/30/ [place] CA 80MG ONE-HALF INUE 1 R 2020 [place] TAB TABLET HCS BY MOUTH AT BEDTIME FOR CHOLESTE ROL cephALEXin TAKE ONE 12/29/2021 [id number] PETER GAITAN 12/02/ [place] (U/D) 500 CAPSULE 2 CHERRY 2021 [place] MG ORAL CAP BY MOUTH VA TWICE A DAY FOR 3 DAYS - AFTER CIED PROCEDUR E - CEPHALEXIN TAKE ONE ORALLY 12/29/2021 [id number] Mehran CEVALLOS I 11/30/ [place] 500MG CAP CAPSULE 2 [id number] [place] BY MOUTH HCS TWICE A DAY FOR 3 DAYS - AFTER CIED PROCEDUR E - DIGOXIN Active [id number] CHARITY 01/14/ Pharmac (digoxin), 1 ,AVERY 2020 y Data 125 MCG, Transac TABLET, tion ORAL, Service [facility] Facilit RX LL, 100 y ea. BOTTLE digoxin TAKE ONE Discont 01/16/2022 [id number] THOLAKA NA 03/25/ [place] (U/D) 125 TABLET inued 1 2020 [place]is MCG ORAL BY MOUTH VENKATAKR [facility] TAB EVERY ISHNA DAY MELANY DIGOXIN TAKE ONE ORALLY DISCONT 01/16/2022 [id number] THOLAK EBONY 01/15/ [place] 0.125MG TAB TABLET INUED 1 BOOGIE,LAUREANO 2020 ALOK S VA BY MOUTH [place] [facility] EVERY NA NARAS DAY DOFETILIDE TAKE ONE Discont 06/21/2021 [id number] ANDRADE NGI, 04/04/ [place] 250 MCG CAPSULE inued 1 RODO S 2020 [place]is ORAL CAP BY MOUTH [facility] TWICE A DAY FOR HEART RHYTHM CONTROL DOFETILIDE TAKE ONE ORALLY DISCONT 06/21/2021 [id number] V ELANGI,P 03/23/ [place] 250MCG CAP CAPSULE INUED 1 RATIK S 2020 [place] VA BY MOUTH HCS TWICE A DAY FOR HEART RHYTHM CONTROL ELIQUIS Active [id number] OGINO 01/14/ (APIXABAN), 1 ,AVERY 2020 y Data 5 MG, Transac TABLET, tion ORAL, [facility] Facilit , 60 ea. y BOTTLE EMPAGLIFLOZ TAKE ONE Active 06/21/2022 [id number] BHASKAR ON, 01/21/ [place] IN 25 MG TABLET 2 SAKSHI R 2021 [place] ORAL TAB BY MOUTH [facility] EVERY DAY EMPAGLIFLOZ TAKE ONE Discont 01/30/2022 [id number] PRISCA SON, 06/23/ [place] IN 25 MG TABLET inued 1 SAKSHI R 2020 [place] ORAL TAB BY MOUTH [facility] EVERY DAY EMPAGLIFLOZ TAKE ONE Discont 11/16/2021 [id number] COPE SON, [place] IN 25 MG TABLET inued 1 SAKSHI R 2020 [place] ORAL TAB BY MOUTH [facility] EVERY DAY EMPAGLIFLOZ TAKE ONE ORALLY ACTIVE 06/21/2022 [id number] JORGE ALBERTO CROUCH 07/03/ [place] IN 25MG TAB TABLET 2 [facility] R 2020 [place] [facility] BY MOUTH HCS EVERY DAY EMPAGLIFLOZ TAKE ONE ORALLY DISCONT 01/30/2022 [id number] JORGE ALBERTO CROUCH 03/15/ [place] IN 25MG TAB TABLET INUE 1 [facility] R 2020 [place] [facility] BY MOUTH HCS EVERY DAY EMPAGLIFLOZ TAKE ONE ORALLY DISCONT 11/16/2021 [id number] JORGE ALBERTO CROUCH 11/20/ [place] IN 25MG TAB TABLET INUE 1 [facility] 2020 [place] [facility] BY MOUTH HCS EVERY DAY FLUTICASONE INHALE 1 INHALA DISCONT 01/30/2022 [id number] JORGE ALBERTO CROUCH 04/07/ [place] 230MCG/SALM PUFF BY TION INUED 1 [facility] 2020 OL[place] V A ETEROL INHALATI HCS 21MCG ON EVERY INHL,ORAL,1 12 HOURS 2GM RINSE MOUTH AFTER EACH USE; REPLACES SYMBICOR T FLUTICASONE INHALE 1 INHALA DISCONT 04/15/2021 [id number] THOLAKANA 01/17/ [place] 230MCG/SALM PUFF BY TION INUE 1 [facility] 2020 OL [place] VA ETEROL INHALATI [place] [facility] 21MCG ON EVERY NA NARAS INHL,ORAL,1 12 HOURS 2GM RINSE MOUTH AFTER EACH USE; REPLACES SYMBICOR T Fluticasone INHALE 1 Discont 01/30/2022 [id number] COPE SON, 07/15/ [place] Propionate PUFF inued 1 [facility] 2020 olis 0.23mg/Actu BYINHALA [facility] at + TION Salmeterol EVERY 12 0.021mg/Act HOURS uat, RINSE Aerosol, MOUTH Inhalation AFTER EACH USE; REPLACES SYMBICOR T Fluticasone INHALE 1 Discont 04/15/2021 [id number] THO LAKANA 02/01/ [place] Propionate PUFF BY inued 1 BOOGIE2020 ol[place] 0.23mg/Actu INHALATI VENKATAKR V [facility] at + ON EVERY ISHNA Salmeterol 12 HOURS MELANY 0.021mg/Act RINSE uat, MOUTH Aerosol, AFTER Inhalation EACH USE; REPLACES SYMBICOR T FUROSEMIDE Active [id number] [place] 05/2 3/ Pharmac (FUROSEMIDE 1 ,AVERY 2020 y Data ), 40MG, Transac TABLET, tion ORAL, Service MYLAN, 1000 Facilit ea. BOTTLE y FUROSEMIDE TAKE ONE Active 06/21/2022 [id number] HANSO N, 01/21/ [place] (U/D) 40 MG TABLET 2 SAKSHI R 2021 [place] ORAL TAB BY MOUTH [facility] EVERY DAY FUROSEMIDE TAKE ONE Discont 01/16/2022 [id number] THOL AKANA 06/23/ [place] (U/D) 40 MG TABLET inued 1 2020 olis ORAL TAB BY MOUTH [facility] EVERY ISHNA DAY MELANY FUROSEMIDE TAKE ONE ORALLY SUSPEND 06/21/2022 [id number] JORGE ALBERTO CROUCH 07/04/ [place] 40MG TAB TABLET ED 2 UC R 2020 [place] VA BY MOUTH [facility] EVERY DAY FUROSEMIDE TAKE ONE ORALLY DISCONT 01/16/2022 [id number] T HOLAKANA 01/15/ [place] 40MG TAB TABLET INUE 1 BOOGIE,LAUREANO 2020 [place] V A BY MOUTH [facility] EVERY NA NAR DAY GABAPENTIN TAKE TWO Active 06/21/2022 [id number] HANSO N, 01/21/ [place] (U/D) 300 CAPSULES 2 2021 [place] MG ORAL CAP BY MOUTH [facility] THREE TIMES A DAY FOR LEG PAIN GABAPENTIN TAKE TWO Discont 01/30/2022 [id number] BHASKAR ON, 06/23/ [place] (U/D) 300 CAPSULES inued 1 2020 [place] MG ORAL CAP BY MOUTH [facility] THREE TIMES A DAY FOR LEG PAIN GABAPENTIN TAKE TWO ORALLY ACTIVE 06/21/2022 [id number] H JORGE ALBERTO GONZALEZ 07/21/ [place] 300MG CAP CAPSULES 2 UCE R 2020 [place] [facility] BY MOUTH HCS THREE TIMES A DAY FOR LEG PAIN GABAPENTIN TAKE TWO ORALLY DISCONT 01/30/2022 [id number] WILLABR 01/31/ [place] 300MG CAP CAPSULES INUE 1 UCE R 2020 [place] VA BY MOUTH HCS THREE TIMES A DAY FOR LEG PAIN glipiZIDE TAKE TWO Active 06/21/2022 [id number] CROUCH , 08/27/ [place] (U/D) 10 MG TABLETS 2 SAKSHI R 2021 olis ORAL TAB BY MOUTH VA TWICE A DAY TAKE 30 MINUTES BEFORE MEAL FOR DIABETES glipiZIDE TAKE TWO Discont 10/31/2021 [id number] BHASKARO N, 06/23/ [place] (U/D) 10 MG TABLETS inued 1 SAKSHI R 2020 [place] ORAL TAB BY MOUTH VA TWICE A DAY TAKE 30 MINUTES BEFORE MEAL FOR DIABETES GLIPIZIDE TAKE TWO ORALLY ACTIVE 06/21/2022 [id number] COLLADO NSON,BR 06/21/ [place] 10MG TAB TABLETS 2 [facility] R 2020 [place] VA BY MOUTH HCS TWICE A DAY TAKE 30 MINUTES BEFORE MEAL FOR DIABETES GLIPIZIDE TAKE TWO ORALLY DISCONT 10/31/2021 [id number] COLLADO NSON,BR 10/31/ [place] 10MG TAB TABLETS INUE 1 [facility] R 2020 [place] VA BY MOUTH HCS TWICE A DAY TAKE 30 MINUTES BEFORE MEAL FOR DIABETES MARINE TAKE BY ORALLY ACTIVE JJ PELAEZ 02/19/ [place] LIPID (FISH MOUTH JONI A 2020 [place] VA OIL) HCS CAP,ORAL METFORMIN TAKE ONE ORALLY 01/30/2022 [id number] H JORGE ALBERTO GONZALEZ 01/31/ [place] HCL 1000MG TABLET 2 [facility] R 2020 [place] VA TAB BY MOUTH HCS TWO TIMES A DAY FOR DIABETES Metformin TAKE ONE 01/30/2022 [id number] BHASKARO N, 10/16/ [place] Hydrochlori TABLET 2 SAKSHI R 2021 ol[place] de Tablet BY MOUTH VA Extended TWO Release TIMES A 1,000 mg DAY FOR Oral DIABETES metoprolol TAKE Active 04/03/2022 [id number] SUSY, 06/25/ [place] succ (U/D) ONE-HALF 1 JOSSELYN Thakur 2020 alok s 100 MG ORAL TABLET VA TB24 BY MOUTH EVERY DAY FOR HEART metoprolol TAKE ONE Discont 01/30/2022 [id number] BHASK[place] ON, 08/11/ [place] succ (U/D) AND inued 1 SAKSHI R 2020 olis 25 MG ORAL ONE-HALF VA TB24 TABLETS BY MOUTH EVERY DAY FOR HEART metoprolol TAKE ONE Discont 04/15/2021 [id number] THOL AKANA 01/30/ [place] succ (U/D) AND inued 1 BOOGIE, 2020 ol[place] 25 MG ORAL ONE-HALF VENKATAKR VA TB24 TABLETS ISHNA BY MOUTH MELANY EVERY DAY FOR HEART -REPLACE S METOPROL OL SUCCINAT E 100MG SA TABLET METOPROLOL TAKE Active 09/27/2022 [id number] GLAUSER, 11/11/ [place] SUCC 200 MG ONE-HALF 2 TUCKER N 2021 olis ORAL TB24 TABLET [facility] BY MOUTH EVERY DAY FOR HEART METOPROLOL TAKE Discont 09/27/2022 [id number] GLAUSER , 11/11/ [place] SUCC 200 MG ONE-HALF inued 2 TUCKER N 2021 ol[place] ORAL TB24 TABLET [facility] BY MOUTH EVERY DAY FOR HEART METOPROLOL Active [id number] CHARITY 12/24 3/ Pharmac SUCCINATE 1 ,AVERY 2020 y Data (metoprolol Transac succinate), tion 25 MG, TAB Service ER 24H, Facilit ORAL, y [facility], 500 ea. BOTTLE METOPROLOL TAKE ORALLY DISCONT 04/03/2022 [id number] BRENT JAIN 04/03/ [place] SUCCINATE ONE-HALF INUED 2 SEPH J 2020 OLIS V A 100MG TABLET (EDIT) HCS TAB,SA BY MOUTH EVERY DAY FOR HEART METOPROLOL TAKE ORALLY ACTIVE 09/27/2022 [id number] GLAUSER ,N 11/08/ [place] SUCCINATE ONE-HALF 2 ORA N 2021 [place] VA 200MG TABLET HCS TAB,SA BY MOUTH EVERY DAY FOR HEART METOPROLOL TAKE ORALLY DISCONT 09/27/2022 [id number] GLAUSE R,N 09/27/ [place] SUCCINATE ONE-HALF INUED 2 ORA N 2021 [place] VA 200MG TABLET HCS TAB,SA BY MOUTH EVERY DAY FOR HEART METOPROLOL TAKE ONE ORALLY DISCONT 01/30/2022 [id number] H LISA,BR 01/31/ [place] SUCCINATE AND INUED 1 UCE R 2020 [place] VA 25MG TAB,SA ONE-HALF (EDIT) HCS TABLETS BY MOUTH EVERY DAY FOR HEART METOPROLOL TAKE ONE ORALLY DISCONT 04/15/2021 [id number] T HOLAKANA 01/15/ [place] SUCCINATE AND INUED 1 BOOGIELAUREANO 2020 OLIS V A 25MG TAB,SA ONE-HALF (EDIT) [place] [facility] TABLETS NA NARAS BY MOUTH EVERY DAY FOR HEART -REPLACE S METOPROL OL SUCCINAT E 100MG SA TABLET MULTIVITAMI TAKE BY ORALLY ACTIVE JJ PELAEZ 02/19/ [place] NS CAP/TAB MOUTH JONI A 2020 [place] VA HCS NON VA MED USE CATS ORALLY ACTIVE JJ PELAEZ 02/19/ [place] NOT LISTED CLAW JONI Brooks 2020 [place] VA MOUTH HCS Olodaterol INHALE 2 Active 07/12/2022 [id number] JEFF MCLAUGHLIN, 07/17/ [place] 0.0025 PUFFS BY 1 JAYY L 2020 olis mg/Actuat + INHALATI [facility] Tiotropium ON EVERY 0.0025 DAY TO mg/Actuat PREVENT Mist, TROUBLE Inhalation BREATHIN G OLODATEROL INHALE 2 INHALA ACTIVE 07/12/2022 [id number] JENIFFER GALLEGOS, 07/11/ [place] 2.5MCG/TIOT PUFFS BY TION 2 JAYY L 2020 OL IS VA ROPIUM INHALATI HCS 2.5MCG/ACTU ON EVERY AT DAY TO INHL,ORAL,6 PREVENT 0D,4GM TROUBLE BREATHIN G Sacubitril TAKE 1 02/20/2022 [id number] BENIGNO, 03/05/ [place] 24 mg + TABLET 1 VICENTE Brooks 2021 olis Valsartan BY MOUTH [facility] 26 mg TWICE A Tablet, DAY FOR Oral HEART FAILURE Sacubitril TAKE Discont 01/16/2022 [id number] THOLAKA NA 02/19/ [place] 24 mg + ONE-HALF inued 1 2020 olis Valsartan TABLET VENKATAKJanak [facility] 26 mg BY MOUTH ISHNA Tablet, TWICE A MELANY Oral DAY FOR HEART FAILURE -REPLACE S [place] SACUBITRIL TAKE ORALLY DISCONT 01/16/2022 [id number] THOLAK EBONY 01/15/ [place] 24MG/VALSAR ONE-HALF INUED 1 BOOGIE,LAUREANO 2020 O LIS VA ERICKSON 26MG TABLET (EDIT) [place] [facility] TAB BY MOUTH NA NARAS TWICE A DAY FOR HEART FAILURE -REPLACE S [place]ARTAN SACUBITRIL TAKE 1 ORALLY 02/20/2022 [id number] BAR T,JJ 02/20/ [place] 24MG/VALSAR TABLET 1 JONI A 2020 [place] VA ERICKSON 26MG BY MOUTH HCS TAB TWICE A DAY FOR HEART FAILURE SEMAGLUTIDE INJECT SUBCUT DISCONT 02/22/2022 [id number] [place] CHAELS, 04/09/ [place] 0.5MG/0.375 0.5MG ANEOUS INUED 1 [facility] 2020 OLIS VA ML UNDER (EDIT) HCS INJ,SOLN,PE THE SKIN N,1.5ML EVERY WEEK FOR DIABETES -MULTIPL E DOSES PER PEN SEMAGLUTIDE INJECT SUBCUT DISCONT 02/22/2022 [id number] [place] CHA[place]S, 02/22/ [place] 0.5MG/0.375 0.25MG ANEOUS INUE 1 [facility] 2020 ALOK S VA ML UNDER HCS INJ,SOLN,PE THE SKIN N,1.5ML EVERY WEEK FOR 4 WEEKS, THEN INJECT 0.5MG EVERY WEEK FOR DIABETES -MULTIPL E DOSES PER PEN SEMAGLUTIDE INJECT SUBCUT ACTIVE 12/05/2022 [id number] [place] CHA[place]S, 12/05/ [place] 1MG/0.75ML 1MG ANEOUS 2 [facility] 2021 OLIS VA INJ,SOLN,PE UNDER HCS N,3ML THE SKIN EVERY WEEK FOR DIABETES -REFRIGE RATE -MULTIPL E DOSES PER PEN SEMAGLUTIDE INJECT SUBCUT DISCONT 05/09/2022 [id number] [place] CHA[place]S, 05/09/ [place] 1MG/0.75ML 1MG ANEOUS INUED 2 [facility] 2020 OL[place] VA INJ,SOLN,PE UNDER HCS N,3ML THE SKIN EVERY WEEK FOR DIABETES -REFRIGE RATE -MULTIPL E DOSES PER PEN SILDENAFIL TAKE ONE ORALLY ACTIVE 01/03/2023 [id number] COLLADO NSON,BR 01/03/ [place] CITRATE TABLET 2 UCE R 2021 [place] VA 100MG TAB BY MOUTH HCS ONCE NEEDED 1 HOUR BEFORE ANTICIPA ERI SEXUAL ACTIVITY spironolact TAKE 02/28/2022 [id number] PRITCHETT, 12/02/ [place] one (U/D) ONE-HALF 2 APRIL U 2021 olis 25 MG ORAL TABLET [facility] TAB BY MOUTH EVERY DAY SPIRONOLACT TAKE ORALLY ACTIVE 01/03/2023 [id number] BHASKARO N,BR 02/18/ [place] ONE 25MG ONE-HALF 2 UCE R 2021 [place] VA TAB TABLET HCS BY MOUTH EVERY DAY SPIRONOLACT TAKE ORALLY DISCONT 02/28/2022 [id number] PRITCHETT ,NID 11/30/ [place] ONE 25MG ONE-HALF INUED 2 HI U 2021 [place] VA TAB TABLET HCS BY MOUTH EVERY DAY VITAMIN B TAKE 1 ORALLY ACTIVE 08/17/2022 [id number] WILLA ,BR 08/20/ [place] COMPLEX CAP CAPSULE 2 UCE R 2020 OLIS V A BY MOUTH HCS EVERY DAY FOR NUTRITIO N VITAMIN B TAKE 1 ORALLY DISCONT 06/21/2021 [id number] PRISCA JORGENSEN,BR 09/07/ [place] COMPLEX CAP CAPSULE INUE 1 UCE R 2020 OLIS V A BY [facility] EVERY DAY FOR NUTRITIO N Allergies, Adverse Reactions, Alerts Combined list of allergies from Department of Defense and Veterans Affairs facilities. It does not include entries that were removed or entered in error. Substance Category Reaction Severity Reaction Status Date Comments S ource type Reported LISINOPRIL Drug Cough Drug active [place] allergy allergy 8 [facility] Immunizations Combined list of available immunizations from the Department of Defense and Veterans Affairs facilities. Immunization Series Date Administered Site Reaction Lot CVX Drug [facility] atus Comments Source Given By Number Code Rack Loader INFLUENZA, complet [place] INJECTABLE, 2020 ed [facility] QUADRIVALENT, [facility] PRESERVATIVE FREE COVID-19 3 complet [place] (Ry[place]), 2020 ed [facility] MRNA, LNP-S, H CS PF, 30 MCG/0.3 ML DOSE COVID-19 2 complet [place]), 2020 ed [facility] MRNA, LNP-S, H CS PF, 30 MCG/0.3 ML DOSE COVID-19 1 complet [place] ([place]), 2020 ed [facility] MRNA, LNP-S, H CS PF, 30 MCG/0.3 ML DOSE Influenza 07/07/ PRITI VIVAR () Not In fluenza DoD vaccine, 2019 Given vaccine, quadrivalent, sobeida zan adjuvanted ent, adjuvante d INFLUENZA, complet [place] UNSPECIFIED 2019 ed [facility] FORMULATION [facility] S ZOSTER 2 complet [place] RECOMBINANT 2019 ed [facility] zoster PRITI VIVAR () Not zoste r DoD recombinant 2019 Given recombin a nt INFLUENZA, complet [place] SEASONAL, 2018 ed [facility] INJECTABLE, [facility] PRESERVATIVE FREE ZOSTER 1 complet [place] RECOMBINANT 2018 ed [facility] INFLUENZA, complet [place] SEASONAL, 2017 ed [facility] INJECTABLE, HC S PRESERVATIVE FREE INFLUENZA, complet [place] HIGH DOSE 2016 ed [facility] INFLUENZA, complet [place] HIGH DOSE 2015 ed [facility] INFLUENZA, complet [place] SEASONAL, 2014 ed [facility] INJECTABLE, HC S PRESERVATIVE FREE PNEUMOCOCCAL complet wYET H,m03 [place] CONJUGATE PCV 2015 ed 211, [place] [facility] 13 HCS INFLUENZA, complet [place] UNSPECIFIED 2013 ed [place] [facility] FORMULATION HC S PNEUMOCOCCAL, complet marybel ck and [place] UNSPECIFIED 2012 ed co, [place] FORM[facility]ATION [id number], 1 HCS 2apr14 TDAP complet glaxosmit M [place] 2012 ed hkline,74 [place] ap3,06/02 HCS /15 INFLUENZA, complet [place] UNSPECIFIED 2012 ed [facility] INFLUENZA, complet [place] UNSPECIFIED 2010 ed [facility] S INFLUENZA, complet [place] UNSPECIFIED 2009 ed [facility] S INFLUENZA, complet [place] UNSPECIFIED 2008 ed [facility] S INFLUENZA, complet [place] UNSPECIFIED 2007 ed [facility] INFLUENZA, complet [place] UNSPECIFIED 2006 ed [facility] S INFLUENZA complet M [place] (HISTORICAL) 2005 ed O [facility] INFLUENZA, complet [place] UNSPECIFIED 2004 ed [place] [facility] TD(ADULT) 139 complet M [place] UNSPECIFIED 2004 ed [facility] INFLUENZA, 08/01/ XIMENA,ABISAI 88 comple t [place] UNSPECIFIED 2003 M ed [facility] S PNEUMOCOCCAL, 08/01/ XIMENA,ABISAI 109 com plet [place] UNSPECIFIED 2003 M ed [facility] INFLUENZA complet [place] (HISTORICAL) 2002 ed O [facility] TD(ADULT) complet [place] UNSPECIFIED 1995 ed [place] [facility] S Results Combined list of recent chemistry, hematology and other laboratory results from Department of Defense and Veterans Affairs, ranging from 15 months to all on record, depending upon the facility. Order Results Value Reference Date Interpretation Specimen Commen ts Source Name Range HEMOGLOBI HEMOGLOBIN 8.5 4.0 - 6.0 02/13 H Specimen Type: BLOOD [place] N A1C A1C/HEMOGLO /2021 No comment e ntered. IS [facility] BIN.TOTAL Ordering Prov ider: JAYY SAMS IN BLOOD Report Release d Date/Time: Feb 07, 2022 04:30 PM Reporting Lab: [facility] [address] [place] [address] Performing Lab: [facility] [address] [place] [address] FINGERSTI GLUCOSE 284 70 - 100 11/30 H Specimen Type : BLOOD [place] CK [MASS/VOLUM /2021 Comment: Sa ve Result Nurse Notified IS [facility] GLUCOSE E] IN Ordering Provid er: TEAM,CARDS TWO CAPILLARY Report Releas ed Date/Time: Nov 30, 2021 11:46 AM BLOOD Reporting Lab: [facility] [address] [place] [address] Performing Lab: [facility] [address] [place] [address] ALBUMIN ALBUMIN 3.4 3.5 - 5.2 04 L Specimen Type: PLASMA [place] [MASS/VOLUM /2021 No comment e [place]tered. [place] [facility] E] IN SERUM Ordering Pr ovider: ELIUD DINERO F OR PLASMA Report Releas ed Date/Time: Nov 29, 2021 07:53 PM Reporting Lab: [facility] [address] [place] [facility] [address] Performing Lab: [facility] [address] [place] [facility] [address] BASIC CREATININE 1.2 0.7 - 1.2 11/30 Specimen Ty pe: PLASMA [place] METABOLIC [MASS/VOLUM /2021 No comment entered. IS [facility] PANEL+MG E] IN SERUM Ordering P rovider: ANGIE MALHOTRA OR PLASMA Report Releas ed Date/Time: Nov 29, 2021 08:12 PM Reporting Lab: [facility] [address] [place] [address] Performing Lab: [facility] [address] [place] [facility] [address] BASIC UREA 18 8 - 26 11/30 Specimen Type: P LASMA [place] METABOLIC NITROGEN /2021 No comment en tered. IS [facility] PANEL+MG [MASS/VOLUM Ordering P rovider: ANGIE MALHOTRA E] IN SERUM Report Rele ased Date/Time: Nov 29, 2021 08:12 PM OR PLASMA Reporting Lab : [facility] [address] [place] [address] Performing Lab: [facility] [place] [address] BASIC GLUCOSE 342 74 - 100 11/30 H Specimen Type: PLASMA [place] METABOLIC [MASS/VOLUM /2021 No comment entered. IS [facility] PANEL+MG E] IN SERUM Ordering P rovider: ANGIE MALHOTRA OR PLASMA Report Releas ed Date/Time: Nov 29, 2021 08:12 PM Reporting Lab: [facility] [address] [place] [facility] [address] Performing Lab: [facility] [address] [place] [facility] [address] BASIC SODIUM 141 136 - 145 11/30 Specimen Type: PLASMA [place] METABOLIC [MOLES/VOLU /2021 No comment entered. IS [facility] PANEL+MG ME] IN Ordering Provi lou: ANGIE MALHOTRA SERUM OR Report Release d Date/Time: Nov 29, 2021 08:12 PM PLASMA Reporting Lab: [facility] [address] [place] [address] Performing Lab: [facility] [address] [place] [address] BASIC POTASSIUM 4.3 3.5 - 5.1 11/30 Specimen Typ e: PLASMA [place] METABOLIC [MOLES/VOLU /2021 No comment entered. IS [facility] PANEL+MG ME] IN Ordering Provi lou: ANGIE MALHOTRA SERUM OR Report Release d Date/Time: Nov 29, 2021 08:12 PM PLASMA Reporting Lab: [facility] [address] [place] [address] Performing Lab: [facility] [address] [place] [address] BASIC CHLORIDE 108 98 - 107 11/30 H Specimen Type: PLASMA [place] METABOLIC [MOLES/VOLU /2021 No comment entered. IS [facility] PANEL+MG ME] IN Ordering Provi lou: ANGIE MALHOTRA SERUM OR Report Release d Date/Time: Nov 29, 2021 08:12 PM PLASMA Reporting Lab: [facility] [address] [place] [address] Performing Lab: [facility] [address] [place] [address] BASIC CARBON 26 22 - 29 11/30 Specimen Type: P LASMA [place] METABOLIC DIOXIDE, /2021 No comment en tered. IS [facility] PANEL+MG TOTAL Ordering Provi lou: ANGIE MALHOTRA [MOLES/VOLU Report Rele ased Date/Time: Nov 29, 2021 08:12 PM ME] IN Reporting Lab: [facility] SERUM OR [facility] Sa[place]ya FEL[facility] [address] PLASMA Performing Lab: [facility] [address] [place] [address] BASIC CALCIUM 8.6 8.4 - 10.2 11/30 Specimen Type : PLASMA [place] METABOLIC [MASS/VOLUM /2021 No comment entered. IS [facility] PANEL+MG E] IN SERUM Ordering P rovider: ANGIE MALHOTRA OR PLASMA Report Releas ed Date/Time: Nov 29, 2021 08:12 PM Reporting Lab: [facility] [address] [place] [address] Performing Lab: [facility] [address] [place] [address] BASIC MAGNESIUM 1.5 1.6 - 2.6 11/30 L Specimen Typ e: PLASMA [place] METABOLIC [MASS/VOLUM /2021 No comment entered. IS [facility] PANEL+MG E] IN SERUM Ordering P rovider: ANGIE MALHOTRA OR PLASMA Report Releas ed Date/Time: Nov 29, 2021 08:12 PM Reporting Lab: [facility] [address] [place] [facility] [address] Performing Lab: [facility] [address] [place] [facility] [address] BASIC ANION GAP 7 5 - 15 11/30 Specimen Type: PLASMA [place] METABOLIC IN SERUM OR /2021 No comment entered. IS [facility] PANEL+MG PLASMA Ordering Provi lou: ANGIE MALHOTRA Report Released Date/Time: Nov 29, 2021 08:12 PM Reporting Lab: [facility] [address] [place] [facility] [address] Performing Lab: [facility] [address] [place] [facility] [address] BASIC CREAT 63 60 11/30 Specimen Type: P LASMA [place] METABOLIC EGFR(CKD-EP /2021 No comment entered. IS [facility] PANEL+MG I) Ordering Provi lou: ANGIE MALHOTRA Report Released Date/Time: Nov 29, 2021 08:12 PM Reporting Lab: [facility] [address] [place] [facility] [address] Performing Lab: [facility] [address] [place] [facility] [address] CBC LEUKOCYTES 10.61 4.0 - 11.0 11/30 Specimen T ype: BLOOD [place] [#/VOLUME] /2021 No comment en tered. IS [facility] IN BLOOD BY Ordering Pr ovider: ANGIE MALHOTRA AUTOMATED Report Releas ed Date/Time: Nov 29, 2021 08:12 PM COUNT Reporting Lab: [facility] [address] [place] [facility] [address] Performing Lab: [facility] [address] [place] [facility] [address] CBC ERYTHROCYTE 4.33 4.6 - 6.2 11/30 L Specimen T ype: BLOOD [place] S /2021 No comment enter ed. [place] [facility] [#/VOLUME] Ordering Pro vider: ANGIE MALHOTRA IN BLOOD BY Report Rele ased Date/Time: Nov 29, 2021 08:12 PM AUTOMATED Reporting Lab : [facility] COUNT [address] [place] [facility] [address] Performing Lab: [facility] [address] [place] [facility] [address] CBC HEMOGLOBIN 14.6 13.5 - 11/30 Specimen Type : BLOOD [place] [MASS/VOLUM 17.9 /2021 No comment e [facility]tered. [facility] E] IN BLOOD Ordering Pr ovider: ANGIE MALHOTRA Report Released Date/Time: Nov 29, 2021 08:12 PM Reporting Lab: [facility] [address] [facility] [address] Performing Lab: [facility] [address] [place] [facility] [address] CBC HEMATOCRIT 45.2 41 - 54 11/30 Specimen Type : BLOOD [place] [VOLUME /2021 No comment enter ed. IS [facility] FRACTION] Ordering Prov ider: ANGIE MALHOTRA OF BLOOD BY Report Rele ased Date/Time: Nov 29, 2021 08:12 PM AUTOMATED Reporting Lab : [facility] [address] [facility] [address] Performing Lab: [facility] [address] [facility] [address] CBC MCV 104.4 80 - 100 04/ H Specimen Type: BLOOD [place] [ENTITIC /2021 No comment ente red. IS [facility] VOLUME] BY Ordering Pro vider: ANGIE MALHOTRA AUTOMATED Report Releas ed Date/Time: Nov 29, 2021 08:12 PM COUNT Reporting Lab: [facility] [address] [facility] [address] Performing Lab: [facility] [address] [facility] [address] CBC MCH 33.7 27 - 33 11/30 H Specimen Type: B LOOD [place] [ENTITIC /2021 No comment [place] red. [place] [facility] MASS] BY Ordering Provi lou: ANGIE MALHOTRA AUTOMATED Report Releas ed Date/Time: Nov 29, 2021 08:12 PM COUNT Reporting Lab: [facility] [address] [facility] [address] Performing Lab: [facility] [address] [facility] [address] CBC MCHC 32.3 32.0 - 11/30 Specimen Type: B LOOD [place] [MASS/VOLUM 37.5 No comment e ntered. [facility] E] BY Ordering Provid er: ANGIE MALHOTRA AUTOMATED Report Releas ed Date/Time: Nov 29, 2021 08:12 PM COUNT Reporting Lab: [facility] [address] [place] [facility] [address] Performing Lab: [facility] [address] [place] [facility] [address] CBC PLATELETS 71 150 - 400 04/08 L Specimen Typ e: BLOOD [place] [#/VOLUME] /2021 No comment [place]red. [place] [facility] IN [place]LOOD BY Ordering Pr ovider: ANGIE MALHOTRA AUTOMATED Report Releas ed Date/Time: Nov 29, 2021 08:12 PM COUNT Reporting Lab: [facility] [address] [place] [facility] [address] Performing Lab: [facility] [address] [place] [facility] [address] CBC PLATELET 13.9 7.4 - 10.4 04/08 H Specimen Typ e: BLOOD [place] MEAN VOLUME /2021 No comment [place]tered. [place] [facility] [ENTITIC Ordering Provi lou: ANGIE MALHOTRA VOLUME] IN Report Relea sed Date/Time: Nov 29, 2021 08:12 PM BLOOD BY Reporting Lab: [facility] AUTOMATED [address] [facility] [address] COUNT Performing Lab: [facility] [address] [place] [facility] [address] CBC ERYTHROCYTE 14.7 11.5 - 04/08 H Specimen Typ e: BLOOD [place] DISTRIBUTIO 14.5 /2021 No comment e [place]tered. [place] [facility] N WIDTH Ordering Provid er: ANGIE MALHOTRA [RATIO] BY Report Relea sed Date/Time: Nov 29, 2021 08:12 PM AUTOMATED Reporting Lab : [facility] COUNT [address] [place] [facility] [address] Performing Lab: [facility] [address] [place] [facility] [address] CBC PLATELETS 17.8 0 - 10 04/08 H Specimen Type: BLOOD [place] RETICULATED /2021 No comment e ntered. [facility] /100 Ordering Provid er: ANGIE MALHOTRA PLATELETS Report Releas ed Date/Time: Nov 29, 2021 08:12 PM IN BLOOD BY Reporting L ab: [facility] H[facility] AUTOMATED [address] [facility] [address] COUNT Performing Lab: [facility] [address] [place] [facility] [address] FINGERSTI GLUCOSE 165 70 - 100 04/08 H Specimen Type : BLOOD [place] CK [MASS/VOLUM /2021 Comment: Sa ve Result Nurse Notified IS [facility] GLUCOSE E] IN Ordering Provid er: IRENE BURNS TWO CAPILLARY Report Releas ed Date/Time: Nov 30, 2021 06:32 AM BLOOD Reporting Lab: [facility] [address] [place] [address] Performing Lab: [facility] [address] [place] [address] FINGERSTI GLUCOSE 160 70 - 100 04/07 H Specimen Type : BLOOD [place] CK [MASS/VOLUM /2021 Comment: Sa ve Result Nurse Notified IS [facility] GLUCOSE E] IN Ordering Provid er: IRENE BURNS TWO CAPILLARY Report Releas ed Date/Time: Nov 29, 2021 07:48 PM BLOOD Reporting Lab: [facility] [address] [place] [address] Performing Lab: [facility] [address] [place] [address] FINGERSTI GLUCOSE 161 70 - 100 04/07 H Specimen Type : BLOOD [place] CK [MASS/VOLUM /2021 Comment: Sa ve Result Nurse Notified IS [facility] GLUCOSE E] IN Ordering Provid er: SAKSHI CROUCH CAPILLARY Report Releas ed Date/Time: Nov 29, 2021 07:04 PM BLOOD Reporting Lab: [facility] [address] [place] [address] Performing Lab: [facility] [address] [place] [address] FINGERSTI GLUCOSE 179 70 - 100 04/07 H Specimen Type : BLOOD [place] CK [MASS/VOLUM /2021 No comment e ntered. IS [facility] GLUCOSE E] IN Ordering Provid er: IRENE BURNS TWO CAPILLARY Report Releas ed Date/Time: Nov 29, 2021 08:08 PM BLOOD Reporting Lab: [facility] [address] [place] [address] Performing Lab: [facility] [address] [place] [address] POC PH OF 7.321 7.35 - 04 L Specimen Type: A RTERIAL BLOOD [place] ABG/ELECT ARTERIAL 7.45 /2021 Comment: Chris ple Type = ARTERIAL IS [facility] ROLYTES BLOOD Ordering Provid er: IRENE BURNS TWO Report Released Date/Time: Nov 29, 2021 07:53 PM Reporting Lab: [facility] [address] [place] [address] Performing Lab: [facility] [address] [place] [address] POC CARBON 46.0 35.00 - 04/07 H Specimen Type: A RTERIAL BLOOD [place] ABG/ELECT DIOXIDE 45.00 /2021 Comment: [place] le Type = [place] [facility] ROLYTES [PARTIAL Ordering Provi lou: TEAM,CARDS TWO PRESSURE] Report Releas ed Date/Time: Nov 29, 2021 07:53 PM IN ARTERIAL Reporting L ab: [facility] BLOOD [address] [place] [address] Performing Lab: [facility] [address] [place] [address] POC OXYGEN 103 80.0 - 11/29 Specimen Type: A RTERIAL BLOOD [place] ABG/ELECT [PARTIAL 105.0 /2021 Comment: Chris ple Type = ARTERIAL [facility] PRESSURE] Ordering Prov ider: IRENE BURNS TWO IN ARTERIAL Report Rele ased Date/Time: Nov 29, 2021 07:53 PM BLOOD Reporting Lab: [facility] [address] [place] [facility] [address] Performing Lab: [facility] [place] [address] POC CARBON 25 23.0 - 11/29 Specimen Type: A RTERIAL BLOOD [place] ABG/ELECT DIOXIDE, 27.0 /2021 Comment: Chris ple Type = ARTERIAL [facility] TOTAL Ordering Provid er: IRENE BURNS TWO [MOLES/VOLU Report Rele ased Date/Time: Nov 29, 2021 07:53 PM ME] IN Reporting Lab: [facility] ARTERIAL [address] [facility] [address] BLOOD Performing Lab: [facility] [address] [place] [facility] [address] POC BICARBONATE 23.8 22.0 - 04 Specimen Typ e: ARTERIAL BLOOD [place] ABG/ELECT [MOLES/VOLU 26.0 /2021 Comment: Sample Type = ARTERIAL IS [facility] ROLYTES ME] IN Ordering Provid er: IRENE BURNS TWO ARTERIAL Report Release d Date/Time: Nov 29, 2021 07:53 PM BLOOD Reporting Lab: [facility] [address] [facility] [place] [address] Performing Lab: [facility] [address] [place] [facility] [address] POC BASE EXCESS -2 - 2 11/29 Specimen Typ e: ARTERIAL BLOOD [place] ABG/ELECT IN ARTERIAL /2021 Comment: Sample Type = [facility] ROL[facility] BLOOD BY Ordering Provi lou: IRENE BURNS TWO CALCULATION Report Rele ased Date/Time: Nov 29, 2021 07:53 PM Reporting Lab: [facility] [address] [place] [address] Performing Lab: [facility] [address] [place] [address] POC FRACTIONAL 97 95 - 98 11/29 Specimen Type : ARTERIAL BLOOD [place] ABG/ELECT OXYHEMOGLOB /2021 Comment: Sample Type = [facility] ROLYTES IN IN Ordering Provid er: IRENE BURNS TWO ARTERIAL Report Release d Date/Time: Nov 29, 2021 07:53 PM BLOOD Reporting Lab: [facility] [address] [place] [address] Performing Lab: [facility] [place] [address] POC SODIUM 145 138.0 - 11/29 Specimen Type: A RTERIAL BLOOD [place] ABG/ELECT [MOLES/VOLU 146.0 /2021 Comment: Sample Type = [facility] ROLYTES ME] IN Ordering Provid er: IRENE BURNS TWO ARTERIAL Report Release d Date/Time: Nov 29, 2021 07:53 PM BLOOD Reporting Lab: [facility] [address] [place] [address] Performing Lab: [facility] [place] [address] POC POTASSIUM 3.5 3.50 - 11/29 Specimen Type: ARTERIAL BLOOD [place] ABG/ELECT [MOLES/VOLU 5.00 /2021 Comment: Sample Type = [facility] ROLYTES ME] IN Ordering Provid er: IRENE BURNS TWO ARTERIAL Report Release d Date/Time: Nov 29, 2021 07:53 PM BLOOD Reporting Lab: [facility] [address] [place] [facility] [address] Performing Lab: [facility] [address] [place] [facility] [address] POC HEMOGLOBIN 16.0 12.00 - 11/29 Specimen Type : ARTERIAL BLOOD [place] ABG/ELECT [MASS/VOLUM 17.00 /2021 Comment: Sample Type = [facility] ROLYTES E] IN Ordering Provid er: IRENE BURNS TWO ARTERIAL Report Release d Date/Time: Nov 29, 2021 07:53 PM BLOOD Reporting Lab: [facility] [address] [place] [address] Performing Lab: [facility] [address] [place] [facility] [address] POC HEMATOCRIT 47 38.0 - 11/29 Specimen Type : ARTERIAL BLOOD [place] ABG/ELECT [VOLUME 51.0 Comment: Samp le Type = ARTERIAL IS [facility] ROLYTES FRACTION] Ordering Prov ider: TEAM,CARDS TWO OF ARTERIAL Report Rele ased Date/Time: Nov 29, 2021 07:53 PM BLOOD Reporting Lab: [facility] [address] [place] [facility] [address] Performing Lab: [facility] [address] [place] [facility] [address] POC CALCIUM.ION 4.2 4.50 - 11/29 L Specimen Typ e: ARTERIAL BLOOD [place] ABG/ELECT IZED 5.30 Comment: Samp le Type = ARTERIAL IS [facility] ROLYTES [MOLES/VOLU Ordering Pr ovider: TEAM,CARDS TWO ME] IN Report Released Date/Time: Nov 29, 2021 07:53 PM ARTERIAL Reporting Lab: [facility] BLOOD [address] [place] [facility] [address] Performing Lab: [facility] [address] [place] [facility] [address] Vital Signs Combined list of inpatient and outpatient Vital Signs from Department of Defense and Veterans Affairs, ranging from 12 months to all on record, depending upon the facility. Vital Sign Value Date Comments Source SYSTOLIC BLOOD PRESSURE 98 11/30/2021 03:56:00 [facility] DIASTOLIC BLOOD PRESSURE 65 11/30/2021 03:56:00 [facility] PULSE OXIMETRY 88% 11/30/2021 03:56:00 [place] [facility] PULSE 88 11/30/2021 03:56:00 [place] [facility] RESPIRATION 16 11/30/2021 03:56:00 [place] [facility] SYSTOLIC BLOOD PRESSURE 104 11/29/2021 19:53:00 [facility] DIASTOLIC BLOOD PRESSURE 68 11/29/2021 19:53:00 [facility] PULSE OXIMETRY 94% 11/29/2021 19:53:00 [place] [facility] PULSE 91 11/29/2021 19:53:00 [place] [facility] SYSTOLIC BLOOD PRESSURE 123 09/21/2021 09:49:59 [facility] DIASTOLIC BLOOD PRESSURE 75 09/21/2021 09:49:59 [place] [facility] PULSE OXIMETRY 98% 09/21/2021 09:49:59 [place] [facility] WEIGHT 223.7 09/21/2021 09:49:59 [place] [facility] BMI 29kg/m2 09/21/2021 09:49:59 [place] [facility] PAIN 0 09/21/2021 09:49:59 [place] [facility] [facility] HEIGHT 73.5 09/21/2021 09:49:59 [place] [facility] [facility] TEMPERATURE 97.5 09/21/2021 09:49:59 [place] [facility] [facility] PULSE 76 09/21/2021 09:49:59 [place] [facility] RESPIRATION 18 09/21/2021 09:49:59 [place] [facility] SYSTOLIC BLOOD PRESSURE 114 06/20/2021 09:36:05 [place] [facility] DIASTOLIC BLOOD PRESSURE 79 06/20/2021 09:36:05 [facility] PULSE OXIMETRY 96% 06/20/2021 09:36:05 [facility] WEIGHT 230.4 06/20/2021 09:36:05 [facility] BMI 30kg/m2 06/20/2021 09:36:05 [facility] PAIN 1 06/20/2021 09:36:05 [facility] TEMPERATURE 98.6 06/20/2021 09:36:05 [facility] PULSE 88 06/20/2021 09:36:05 [facility] RESPIRATION 18 06/20/2021 09:36:05 [facility] SYSTOLIC BLOOD PRESSURE 114 06/18/2021 12:53:22 [facility] DIASTOLIC BLOOD PRESSURE 71 06/18/2021 12:53:22 [facility] PULSE OXIMETRY 99% 06/18/2021 12:53:22 [facility] WEIGHT 230.1 06/18/2021 12:53:22 [facility] BMI 30kg/m2 06/18/2021 12:53:22 [facility] PAIN 0 06/18/2021 12:53:22 [facility] HEIGHT 73 06/18/2021 12:53:22 [facility] TEMPERATURE 96.8 06/18/2021 12:53:22 [facility] PULSE 62 06/18/2021 12:53[facility]22 [facility] 16 06/18/2021 12:53:22 [facility] Encounters Combined list of: 1) Encounters from [facility] facilities going back up to the last 18 months, not all VA inpatient encounters are included; 2) Encounters from the Department of Defense facilities going back up to 280 months. Location Location Encounter Encounter Reason Attending ADM DC Stat us Disposition Source Details Type Number For Provider Date Date Visit Outpatient [id number] TIFFANY BERNAL 09/27 [place] En[place] [id number] GRICELDA /2020 [facility] Outpatient [id number] 09/27 [place] [id number] /2020 [facility] Outpatient [id number] Danna WILLALISHA 09/28 [place] Encounter [id number] is: CE R /2020 [facility] ICD-10- HCS CM M54.17 Radicul opathy, lumbosa cral region< br/>wit h Provide r Comment s: Radicul opathy, Lumbosa cral Region Outpatient [id number] Danna WILLALISHA 10/04 [place] Encounter [id number] is: [place] R /2020 [facility] ICD-10- HCS CM 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
with Provide r Comment s: [facility] [facility] [id number] 06) Outpatient 82064-0.61 10/14 [place] Encounter [id number] /2021 [facility] Outpatient 00660-9.61 10/24 [place] Encounter [id number] /2020 [facility] Outpatient 82230-9.61 11/02 [place] Encounter [id number] /2020 [facility] Outpatient 44643-3.61 11/04 [place] Encounter [id number] /2020 [facility] Outpatient 10506-2.61 11/06 [place] Encounter [id number] /2020 [facility] Outpatient 90040-5.61 11/14 [place] Encounter [id number] /2020 [facility] OFFICE O/P 94159-0.61 Diagnos WILLA,BRU 11/15 [place] EST MOD 8.33100904 is: CE R /2020 [facility] 30-39 MIN ICD-10- HCS CM E11.9 Type 2 diabete s mellitu s without complic ations< br/>wit h Provide r Comment s: Type 2 diabete s mellitu s (SCT 5705205 6) Outpatient 16067-2.61 11/15 [place] Encounter [id number] /2020 [facility] Outpatient 92449-2.61 11/16 [place] Encounter [id number] /2020 [facility] [place] [address]-5.61 Diagnos MYLENE, 11/20 [place] DIG 8.19133080 is: ANGEL K /2020 [facility] ASSMT&MGMT ICD-10- HCS 5-10 CM E11.9 Type 2 diabete s mellitu s without complic ations< br/>wit h Provide r Comment s: Type 2 diabete s mellitu s (SCT 3751925 6) Outpatient 57459-6.61 01/10 [place] En[place] [id number] /2020 [facility] OFFICE O/P 19177-8.61 Diagnos SUZETTE,SA 01/10 [place] EST 8.79031105 is: NDRA L /2020 [facility] MINIMAL ICD-10- HCS PROB CM Z95.810 Presenc e of automat ic (implan table) cardiac defibri llator< br/>wit h Provide r Comment s: Cardiac defibri llator in situ (SCT 7439608 02) REM 85557-1.66 Diagnos DARLEENG 01/10 [place] INTER[place]OG 2.04646255 is: REGORY /2020 [facility] PM/IDS ICD-10- [facility] CM Z95.810 Presenc e of automat ic (implan table) cardiac defibri llator< br/>wit h Provide r Comment s: Presenc e of automat ic (implan table) cardiac defibri llator Outpatient 48014-861 01/11 [place] Encounter [id number] /2020 [facility] Outpatient 34075-7.61 RONALD,Alan 01/11 [place] Encounter [id number] ERRY /2020 [facility] Outpatient 86911-101/12 [place] Encounter [id number] /2020 [facility] Outpatient 35396-201/12 [place] Encounter [id number] /2020 [facility] Outpatient LISHA CROUCH 01/12 [place] Encounter [id number] CE R /2020 [facility] OFFICE O/P Diagnos THOLAKANAH 01/15 [place] NEW MOD 8.16383392 is: MOSESVENKA /2020 [facility] 45-59 MIN ICD-10- TAKRISHNA [facility] CM NARAS I48.19 Other persist ent atrial fibrill ation<b r/>with Provide r Comment s: Persist ent atrial fibrill ation (SNOMED CT 2825986 07) QTXP OL Diagnos MYLENE, 01/15 [place] DIG 8.17903916 is: ANGEL K [facility] ASSMT&MGMT ICD-10- HCS 5-10 CM I50.22 Chronic systoli c (conges tive) heart failure
wi th Provide r Comment s: Chronic systoli c heart failure (SCT 6845736 04) QNHP OL Diagnos DAHLEN,AND 01/16 [place] DIG 8.80957945 is: HUI L [facility] ASSMT&MGMT ICD-10- HCS 5-10 CM J44.9 Chronic obstruc tive pulmona ry disease , unspeci fied
with Provide r Comment s: COPD, Stable OFFICE O/P Diagnos LISHA CROUCH 01/17 [place] EST LOW 8.10677426 is: CE R /2020 [facility] 20-29 MIN ICD-10- HCS CM I50.22 Chronic systoli c (conges tive) heart failure
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
wi th Provide r Comment s: longterm (curren t) use of anticoa gulants OFFICE O/P 86490-261 Diagnos QUENTIN SHAFFER 01/19 [place] EST MOD 8.53987400 is: LL D /2020 [facility] 30-39 MIN ICD-10- HCS CM E11.9 Type 2 diabete s mellitu s without complic ations< br/>wit h Provide r Comment s: Type 2 diabete s mellitu s without complic ations Outpatient 61348-1.61 06/02 [place] Encounter [id number] /2020 [facility] Outpatient 14351-9.61 06/02 [place] Encounter [id number] /2020 [facility] Outpatient 16409-8.61 Diagnos CROUCHLISHA 01/29 [place] Encounter 8.18033515 is: CE R /2020 [facility] ICD-10- HCS CM I50.22 Chronic systoli c (conges tive) heart failure
wi th Provide r Comment s: Chronic systoli c heart failure (SCT 5190002 ) REM 30971-6.66 Diagnos Fransisco MOREJON 02/09 [place] INTERROG 2.03291162 is: REGORY /2020 [facility] EV[place] PM/IDS ICD-10- [facility] CM Z95.810 Presenc e of automat ic (implan table) cardiac defibri llator< br/>wit h Provide r Comment s: Presenc e of automat ic (implan table) cardiac defibri llator OFFICE O/P 74992-1.61 Diagnos BENIGNOBRADL 02/19 [place] 8.72714647 is: EY A [facility] 60-74 MIN ICD-10- HCS CM I50.22 Chronic systoli c (conges tive) heart failure
wi th Provide r Comment s: Chronic systoli c heart failure (SCT 7283283 04) INTERROG 43178-661 Diagnos CHERELLESHERYLJANELL,L 02/19 [place] DEVICE 8.60002797 is: CHRIS [facility] EVAL HEART ICD-10- HCS CM I51.7 Cardiom egaly<b r/>with Provide r Comment [place]: [place] [address]-1 Diagnos OMER,STEP 02/19 [place] DIG 8.08746199 is: HANIE [facility] ASSMT&MGMT ICD-10- HCS 5-10 CM E11.9 Type 2 diabete s mellitu s without complic ations< br/>wit h Provide r Comment s: Type 2 diabete s mellitu s (SCT 7417325 6) [place] [address]-3 Diagnos Ofe SAMS 03/05 [place] PHARM ADDL 8.29415216 is: ORDAN [facility] 15 MIN ICD-10- HCS CM E11.9 Type 2 diabete s mellitu s without complic ations< br/>wit h Provide r Comment s: Type 2 diabete s mellitu s (SCT 9485186 6) OFFICE O/P 49050-0 Diagnos EMPERATRIZ GONSALEZ 03/05 [place] EST 8.57122151 is: LLE [facility] MINIMAL ICD-10- HCS PROB CM I50.22 Chronic systoli c (conges tive) heart failure
wi th Provide r Comment s: Chronic Systoli c (Conges tive) Heart Failure Outpatient 42747-5.61 03/07 [place] Encounter [id number] /2021 [facility] Out[facility] 31363-7 MANOLO JOHNSON 03/14 [place] Encounter [id number] [facility] OFFICE O/P 11640-6 Diagnos Alan NAVA 03/15 [place] EST 8.45147598 is: BERTRAND K [facility] MINIMAL ICD-10- HCS PROB CM Z95.810 Presenc e of automat ic (implan table) cardiac defibri llator< br/>wit h Provide r Comment s: Cardiac defibri llator in situ ([facility] 6730565 02) Outpatient 32069-1.61 Diagnos GLAUSER,NO 03/15 [place] Encounter 8.75626002 is: RA N [facility] ICD-10- HCS CM I48.19 Other persist ent atrial fibrill ation<b r/>with Provide r Comment s: Persist ent atrial fibrill ation ([facility] 0520854 07) Outpatient 72923-2.61 03/20 [place] Encounter [id number] [facility] Outpatient 31243-6.61 SYSTEM,CIS 03/20 [place] Encounter [id number] -AR [facility] H[facility] ELECTROCAR 48614-861 Diagnos FLOREA,LEIGH 03/20 [place] DIOGRAM 8.73349956 is: REL [facility] COMPLETE ICD-10- HCS CM Z13.6 Encount er for screeni ng for cardiov ascular disorde rs
with Provide r Comment s: Encount er for Screeni ng for Cardiov ascular Disorde rs OFFICE O/P 98123-4.61 Diagnos GLAUSER,NO 03/20 [place] EST MOD 8.54211061 is: RA N [facility] 30-39 MIN ICD-10- HCS CM I48.19 Other persist ent atrial fibrill ation<b r/>with Provide r Comment s: Persist ent atrial fibrill ation ([facility] 6896569 07) Inpatient 41431-1.61 Admit TEAM,CARD 03/20 [place] Encounter [id number] Reason: II [facility] OFETILI DE LOAD
Inpatient 54332-5.61 Admit TEAM,CARD 03/20 03/23 [place] Encounter [id number] Reason: II [facility] inpatient HCS OFETILI treatment to DE the Service LOAD<br Connected /> (OPT-SC) rolls. Inpatient 16367-1.61 AMARI,L 03/20 03/20 [place] Encounter [id number] UCAS A /2020 [facility] Inpatient 23169-3.61 03/20 [place] En[place] [id number] /2020 [facility] INPATIENT 57730-0.61 Diagnos CHANDRASHE 03/20 03/20 [place] CONSULTATI 8.08323825 is: WHIT,Seamus S /2020 [place] ICD-10- HCS CM I48.19 Other persist ent atrial fibrill ation<b r/>with Provide r Comment s: Persist ent atrial fibrill ation ([facility] 0456499 07) Inpatient 50954-7.61 RODERICK, 03/20 03/20 [place] Encounter [id number] IGLESIA R /2020 [facility] Inpatient 37277-7.61 HERTLING,M 03/20 03/20 [place] Encounter [id number] ICHAELA R /2020 [facility] Inpatient 88532-3.61 03/21 03/21 [place] En[place] [id number] /2020 [facility] Inpatient 37383-8.61 SYSTEM,CIS 03/21 03/21 [place] Encounter [id number] -ARK /2020 [facility] Inpatient 06273-1.61 ESCALERA,CAR 03/21 03/21 [place] Encounter [id number] A M /2020 [facility] Inpatient 91801-5.61 VELANGI,IA 03/21 03/21 [place] Encounter [id number] ATIK S /2020 [facility] [address]-6.61 Diagnos FRIDA,HILDA 03/21 03/21 [place] FLAT BED KNITTER 8.31276354 is: ALD F /2020 [facility] ALLERGIST/IMMUNOLOGIST ICD-10- HCS INDIVIDU CM Z71.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 us chemical dependency counselor ing<br/ >with Provide r Comment s: Spiritu al or religio us chemical dependency counselor ing Inpatient 61772-0.61 03/22 03/22 [place] En[place] [id number] /2020 [facility] Inpatient 77993-9.61 SYSTEM,CIS 03/22 03/22 [place] Encounter [id number] -ARK /2020 [facility] Inpatient 56221-7.61 JUAN GARRISON 03/22 03/22 [place] Encounter [id number] VIPUL A /2020 [facility] Inpatient 08655-5.61 TONIO LAWRENCE 03/22 03/22 [place] Encounter [id number] IA F /2020 [facility] Inpatient 40438-2.61 03/22 03/22 [place] Encounter [id number] /2020 [facility] Inpatient 95132-5.61 RODRÍGUEZ LANDRY 03/22 03/22 [place] Encounter [id number] RLA /2020 [facility] REM 57769-1.66 Diagnos Fransisco MOREJON 03/22 [place] INTERROG 2.89504193 is: REGORY /2020 [facility] EV[place] PM/IDS ICD-10- [facility] CM Z95.810 Presenc e of automat ic (implan table) cardiac defibri llator< br/>wit h Provide r Comment s: Presenc e of automat ic (implan table) cardiac defibri llator Inpatient 53310-6.61 03/23 03/23 [place] Encounter [id number] /2020 [facility] Inpatient 30434-8.61 03/23 03/23 [place] Encounter [id number] /2020 [facility] Inpatient 06669-0.61 SYSTEM,CIS 03/23 03/23 [place] Encounter [id number] -ARK /2020 [facility] [place] [address]-6.61 Diagnos HILDA GALICIA 03/23 03/23 [place] FLAT BED KNITTER 8.51322375 is: ALD F /2020 [facility] ALLERGIST/IMMUNOLOGIST ICD-10- HCS INDIVIDU CM 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
with Provide r Comment s: Chronic obstruc tive pulmona ry disease (SCT 8064074 5) Inpatient 68723-861 ANDREEA,MI 03/23 03/23 [place] Encounter [id number] DUSTY J /2020 [facility] ANESTH 72760-1 Diagnos MICHELLE BOJORQUEZ 03/23 03/23 [place] CORRECT 8.14269071 is: José MCCALLUM /2020 [facility] HEART ICD-10- HCS RHYTHM CM I48.19 Other persist ent atrial fibrill ation<b r/>with Provide r Comment s: Persist ent atrial fibrill ation ([facility] 1070103 07) Outpatient 05991-403/23 [place] Encounter [id number] [facility] Outpatient 06605-461 03/23 [place] Encounter [id number] [facility] 34088-7 Diagnos CHANDRASHE 03/23 [place] DISCHARGE 8.61764586 is: Seamus [facility] ICD-10- HCS CM I48.19 Other persist ent atrial fibrill ation<b r/>with Provide r Comment s: Persist ent atrial fibrill ation ([facility] 3803870 07) Outpatient 20642-961 03/26 [place] Encounter [id number] [facility] HC PRO 95117-161 Diagnos WINTER,03/26 [place] PHONE CALL 8.22917839 is: [facility] 11-20 MIN ICD-10- HCS CM 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
Provide r Comment s: longterm (curren t) use of anticoa gulants Outpatient 47878-0 CARROLL SKAGGS 03/28 [place] Encounter [id number] [facility] Outpatient 00885-061 03/30 [place] Encounter [id number] [facility] OFFICE O/P 28792-961 Diagnos Alan NAVA 04/02 [place] EST 8.96143331 is: BERTRAND K [facility] ICD-10- HCS PROB CM Z95.810 Presenc e of automat ic (implan table) cardiac defibri llator< br/>wit h Provide r Comment s: Cardiac defibri llator in situ ([facility] 4325575 02) REM 45115-2.66 Diagnos NEETALEAHPADMINI,G 04/02 [place] INTER[place]OG 2.91120738 is: REGORY [facility] EVL PM/IDS ICD-10- [facility] CM Z95.810 Presenc e of automat ic (implan table) cardiac defibri llator< br/>wit h Provide r Comment s: Presenc e of automat ic (implan table) cardiac defibri llator Outpatient 17204-804/12 [place] Encounter [id number] [facility] PRO 32450-1 Diagnos Ofe SAMS 04/12 [place] PHONE CALL 8.82733085 is: ORDAN L [facility] 11-20 MIN ICD-10- HCS CM E11.9 Type 2 diabete s mellitu s without complic ations< br/>wit h Provide r Comment s: Type 2 diabete s mellitu s ([facility] 5616849 6) PRO 70318-4 Diagnos Ofe SAMS 05/08 [place] PHONE CALL 8.10344772 is: ORDAN L [facility] 11-20 MIN ICD-10- HCS CM E11.9 Type 2 diabete s mellitu s without complic ations< br/>wit h Provide r Comment s: Type 2 diabete s mellitu s (SCT 0998548 6) Outpatient 78005-1.61 / [place] Encounter [id number] [facility] Outpatient 67250-406/06 [place] En[place] [id number] [facility] HC PRO Diagnos FLAQUITAOfe 06/13 [place] PHONE CALL 8.10837099 is: CHIVO L [facility] 11-20 MIN ICD-10- HCS CM E11.9 Type 2 diabete s mellitu s without complic ations< br/>wit h Provide r Comment s: Type 2 diabete s mellitu s ([facility] 6097289 6) OFFICE O/P Diagnos BENIGNOBRADL 06/18 [place] EST MOD 8.40457025 is: EY [facility] 30-39 MIN ICD-10- HCS CM I50.22 Chronic systoli c (conges tive) heart failure
wi th Provide r Comment s: Chronic systoli c heart failure ([facility] 7428438 04) TELEMONITO Diagnos WILLY WILBURN 06/19 [place] RING/HOME 8.99147234 is: [facility] PER MNTH ICD-10- HCS CM I50.22 Chronic systoli c (conges tive) heart failure
wi th Provide r Comment s: Chronic systoli c heart failure ([facility] 5878242 04) OFFICE O/P Diagnos WILLABRU 06/20 [place] EST LOW 8.94846123 is: CE [facility] 20-29 MIN ICD-10- HCS CM E11.9 Type 2 diabete s mellitu s without complic ations< br/>wit h Provide r Comment s: Type 2 diabete s mellitu s ([facility] 9584974 6) Outpatient 06/26 [place] Encounter [id number] [facility] HC PRO Diagnos WILLY WILBURN 06/26 [place] PHONE CALL 8.18413474 is: [facility] 21-30 MIN ICD-10- HCS CM I50.22 Chronic systoli c (conges tive) heart failure
wi th Provide r Comment s: Chronic systoli c heart failure ([facility] 5508092 04) Outpatient Diagnos WILLY WILBURN 07/03 [place] Encounter 8.23321015 is: [facility] ICD-10- HCS CM I50.22 Chronic systoli c (conges tive) heart failure
wi th Provide r Comment s: Chronic systoli c heart failure (SCT 6453653 04) PRO 43364-6 Diagnos FLAQUITAOfe 07/11 [place] PHONE CALL 8.66951146 is: CHIVO L [facility] 21-30 MIN ICD-10- HCS CM E11.9 Type 2 diabete s mellitu s without complic ations< br/>wit h Provide r Comment s: Type 2 diabete s mellitu s (SCT 2834935 6) INJ 97603-9.61 Diagnos BENEDICT LYNNO 07/26 [place] PERFLUTREN 8.47663399 is: [facility] LIP ICD-10- HCS MICROS,ML CM I50.22 Chronic systoli c (conges tive) heart failure
wi th Provide r Comment s: Chronic systoli c heart failure (SCT 7340993 04) PRO 62852-8 Diagnos WILLY WILBURN 07/30 [place] PHONE CALL 8.11591804 is: [facility] 11-20 MIN ICD-10- HCS CM I50.22 Chronic systoli c (conges tive) heart failure
wi th Provide r Comment s: Chronic systoli c heart failure (SCT 3288454 04) Outpatient 45263-3 Diagnos WILLY WILBURN 07/31 [place] Encounter 8.41301320 is: [facility] ICD-10- HCS CM J44.9 Chronic obstruc tive pulmona ry disease , unspeci fied
with Provide r Comment s: Chronic obstruc tive pulmona ry disease (SCT 7049677 5) Outpatient 43644-607/31 [place] Encounter [id number] [facility] REM 65309-7. Diagnos NEETARBACH,P 08/03 [place] INTER[place]OG 2.24623487 is: ATLY ROSS S EVL PM/IDS ICD-10- [facility] CM Z95.810 Presenc e of automat ic (implan table) cardiac defibri llator< br/>wit h Provide r Comment s: Presenc e of automat ic (implan table) cardiac defibri llator DEV Diagnos SUZETTE,SA 08/03 [place] INTERROG 8.33984108 is: NDRA [facility] REMOTE ICD-10- HCS 1/2/ICT BUSINESS DEVELOPMENT MANAGER CM Z95.810 Presenc e of automat ic (implan table) cardiac defibri llator< br/>wit h Provide r Comment s: Cardiac defibri llator in situ ([facility] 5191971 02) HC PRO Diagnos Ofe SAMS 08/10 [place] PHONE CALL 8.05228057 is: CHIVO [facility] 11-20 MIN ICD-10- HCS CM E11.9 Type 2 diabete s mellitu s without complic ations< br/>wit h Provide r Comment s: Type 2 diabete s mellitu s (SCT 1847062 6) Outpatient Diagnos WILBURN,WILLY 09/03 [place] Encounter [id number] is: [facility] ICD-10- HCS CM I50.22 Chronic systoli c (conges tive) heart failure
wi Provide r Comment s: Chronic systoli c heart failure (SCT 2054235 04) HC PRO Ofe Stout 09/14 [place] PHONE CALL 8.54522831 is: CHIVO [facility] 11-20 MIN ICD-10- HCS CM E11.9 Type 2 diabete s mellitu s without complic ations< br/>wit h Provide r Comment s: Type 2 diabete s mellitu s (SCT 0878043 6) Outpatient 09/20 [place] Encounter [id number] [facility] ELECTROCAR Diagnos BENIGNO,BRADL 09/21 [place] DIOGRAM 8.93454697 is: EY [facility] COMPLETE ICD-10- HCS CM Z13.6 Encount er for screeni ng for cardiov ascular disorde rs
with Provide r Comment s: Encount er for Screeni ng for Cardiov ascular Disorde rs INTERROG 02512-1.61 Diagnos SUZETTE,SA 09/21 [place] DEVICE 8.32962963 is: NDRA [facility] EVAL HEART ICD-10- HCS CM Z95.810 Presenc e of automat ic (implan table) cardiac defibri llator< br/>wit h Provide r Comment s: Cardiac defibri llator in situ ([facility] 2195428 02) OFFICE O/P 56320-061 Diagnos GLAUSER,NO 09/21 [place] EST [place] 8.79331975 is: RA N [facility] 40-54 MIN ICD-10- HCS CM I48.19 Other persist ent atrial fibrill ation<b r/>with Provide r Comment s: Persist ent atrial fibrill ation ([facility] 4113858 07) Outpatient 11896-1.61 / [place] En[place] [id number] /2021 [facility] Out[facility] 92040-6.61 10/02 [place] Encounter [id number] /2021 [facility] HC PRO 21574-461 Diagnos GENNARO,JANET 10/09 [place] PHONE CALL 8.28915765 is: HRYN [facility] 11-20 MIN ICD-10- HCS CM I50.9 Heart failure , unspeci fied
with Provide r Comment s: Heart Failure , unspeci fied EXT 54270-7.61 Diagnos BENIGNO,BRADL 10/12 [place] ECG>48HR<7 8.15867992 is: EY A [facility] D ICD-10- HCS RECORDING CM I47.2 Ventric ular tachyca rdia
with Provide r Comment s: Ventric ular tachyca rdia HC PRO 55731-2.61 Diagnos Ofe SAMS 10/12 [place] PHONE CALL 8.04594125 is: ORDAN L [facility] 11-20 MIN ICD-10- HCS CM E11.9 Type 2 diabete s mellitu s without complic ations< br/>wit h Provide r Comment s: Type 2 diabete s mellitu s ([facility] 7661501 6) Outpatient 89087-6 Diagnos GENNAROJANET 10/18 [place] Encounter [id number] is: HRYN M /2021 [facility] ICD-10- HCS CM I50.9 Heart failure , unspeci fied
with Provide r Comment s: Heart Failure , unspeci fied Outpatient 57020-861 10/19 [place] Encounter [id number] /2021 [facility] Outpatient 70118-3.10/25 [place] Encounter [id number] /2021 [facility] Outpatient 18612-661 10/29 [place] Encounter [id number] /2021 [facility] Outpatient 11587-4.66 11/02 [place] Encounter [id number] /2021 [facility] DEV 22998-7 Diagnos FASHINGBAU 11/02 [place] INTERROG 8.49911086 is: GOPAL RAMIREZ /2021 [facility] ICD-10- T HCS 1/2/ICT BUSINESS DEVELOPMENT MANAGER CM Z95.810 Presenc e of automat ic (implan table) cardiac defibri llator< br/>wit h Provide r Comment s: Cardiac defibri llator in situ ([facility] 9402340 ) REM 67108-3.66 Diagnos ROWENA,KR 11/02 [place] INTER[place]OG 2.21144667 is: ISTI L /2021 [facility] EVL PM/IDS ICD-10- [facility] CM Z95.810 Presenc e of automat ic (implan table) cardiac defibri llator< br/>wit h Provide r Comment s: Presenc e of automat ic (implan table) cardiac defibri llator Outpatient 60798-561 Diagnos GLAUSER,NO 11/05 [place] Encounter [id number] is: RA N /2021 [facility] ICD-10- HCS CM Z95.810 Presenc e of automat ic (implan table) cardiac defibri llator< br/>wit h Provide r Comment s: Cardiac defibri llator in situ ([facility] 9118651 ) HC PRO 14591-1 Diagnos Ofe SAMS 11/09 [place] PHONE CALL 8.59069703 is: CHIVO L [facility] 5-10 MIN ICD-10- HCS CM E11.9 Type 2 diabete s mellitu s without complic ations< br/>wit h Provide r Comment s: Type 2 diabete s mellitu s (SCT [id number] 6) Outpatient 12617-8. Diagnos GENNARO,JANET 11/15 [place] Encounter [id number] is: HRYN M [facility] [place] ICD-10- HCS CM I50.9 Heart failure , unspeci fied
with Provide r Comment s: Heart Failure , unspeci fied Outpatient 61674-5.61 Diagnos GENNARO,JANET 11/16 [place] Encounter [id number] is: HRYN M [facility] [place] ICD-10- HCS CM I50.9 Heart failure , unspeci fied
with Provide r Comment s: Heart Failure , unspeci fied Outpatient 00058-7.66 11/19 [place] Encounter [id number] [place] IS [facility] DEV 98852-561 Diagnos JUDAH,L 11/19 [place] INTERROG [id number] is: CHRIS [facility] A REMOTE ICD-10- HCS 1/2/ICT BUSINESS DEVELOPMENT MANAGER CM I47.2 Ventric ular tachyca rdia
with Provide r Comment s: Ventric ular tachyca rdia REM 82339-8.66 Diagnos DARLEEN,G 11/19 [place] INTER[place] [id number] is: REGORY [place] IS EVL PM/IDS ICD-10- CO [facility] CM Z95.810 Presenc e of automat ic (implan table) cardiac defibri llator< br/>wit h Provide r Comment s: Presenc e of automat ic (implan table) cardiac defibri llator Outpatient 70567-5.61 Diagnos HANNAH REED 11/21 [place] Encounter [id number] is: YENG [facility] [place] ICD-10- HCS CM Z01.818 Encount er for other preproc edural examina tion
with Provide r Comment s: Encount er for other Preproc edural Examina tion Outpatient 59256-0.61 04/ [place] Encounter [id number] [facility] 06780-4.61 / [place] En[place] [id number] [facility] 79760-2.61 SYSTEM,CIS 11/29 [place] Encounter [id number] -ARK [facility] 19049-4.61 / [place] En[place] [id number] [facility] 01583-8.61 / [place] En[place] [id number] [facility] 92918-7.61 11/29 [place] Encounter [id number] /2022 [facility] 91078-461 11/29 [place] Encounter [id number] /2022 [facility] [place] [facility] ECHO 88292-4 Diagnos FLOREA,LEIGH 11/29 [place] TRANSESOPH [id number] is: REL [place] AGEAL ICD-10- HCS CM I49.3 Ventric ular prematu re depolar ization
wi Provide r Comment s: Unifoca l PVCs ([facility] [id number]) OFFICE O/P 96811-7 Diagnos NICOLEKRIT 11/29 [place] EST HI [id number] is: HIKA [facility] 40-54 MIN ICD-10- HCS CM Z01.818 Encount er for other preproc edural examina tion
with Provide r Comment s: Encount er for other preproc edural examina tion Outpatient 67038-361 RIC OLVERA 11/29 [place] Encounter [id number] [place] [facility] PRGRMG 03696-261 Diagnos SZUMIJANELL,L 11/29 [place] EVAL [id number] is: CHRIS [facility] [place] IMPLANTABL ICD-10- HCS E DFB CM I51.7 Cardiom egaly<b r/>with Provide r Comment s: Cardiom egaly Outpatient 57286-8.61 11/29 [place] Encounter [id number] /2021 [facility] Outpatient 79108-3.61 SYSTEM,CIS 11/29 [place] Encounter [id number] -AR [facility] INJECTION 30765-7.61 Diagnos RENE 11/29 [place] EXT [id number] is: MOSES,VEN [facility] VENOGRAPHY ICD-10- TAKRISHNA [facility] CM NARAS I48.19 Other persist ent atrial fibrill ation<b r/>with Provide r Comment s: Persist ent atrial fibrill ation (SCT 7574931 07) Outpatient 41129-1.61 11/29 [place] Encounter [id number] [facility] OFFICE O/P 40815-7.61 Diagnos LANNY RIVERA 11/29 [place] EST [id number] is: [place] [facility] MINIMAL ICD-10- HCS PROB CM D69.6 Thrombo cytopen ia, unspeci fied
with Provide r Comment s: Thrombo cytopen ia ([facility] 0142502 00) Outpatient 78276-1.61 11/29 [place] Encounter [id number] [facility] Inpatient 91203-8.61 Admit TEAM,CARDS 11/29 11/30 [place] Encounter [id number] Reason: TWO /2021 discharge [facility] PVI GEN from [facility] CHANGE< inpatient br/> treatment. Inpatient 44040-8.61 SYSTEM,CIS 11/29 11/29 [place] Encounter [id number] -ARK /2021 [facility] Inpatient 00487-0.61 11/29 [place] Encounter [id number] /2021 [facility] Inpatient 06891-3.61 11/29 11/29 [place] Encounter [id number] /2021 [facility] Inpatient 89046-0.61 11/30 11/30 [place] Encounter [id number] /2021 [facility] Inpatient 13091-6.61 11/30 11/30 [place] Encounter [id number] /2021 [facility] Inpatient 96674-7.61 SYSTEM,CIS 11/30 11/30 [place] Encounter [id number] -ARK /2021 [facility] PM DEVICE 87818-961 Diagnos FASHINGBAU 11/30 11/30 [place] PROGR EVAL [id number] is: ER,DANIAARE /2021 [facility] ICD-10- T [facility] CM Z95.810 Presenc e of automat ic (implan table) cardiac defibri llator< br/>wit h Provide r Comment s: Cardiac defibri llator in situ (SCT 9177902 02) INITIAL 12900-1 Diagnos CARCORA,YA 11/30 11/30 [facility] [id number] is: SER P /2021 [place] [facility] ICD-10- [facility] CM I48.19 Other persist ent atrial fibrill ation<b r/>with Provide r Comment s: Persist ent atrial fibrill ation ([facility] 4747045 07) Inpatient 38959-1.61 11/30 11/30 [place] Encounter [id number] /2021 [facility] Outpatient 08441-961 11/30 [place] Encounter [id number] [facility] Outpatient 83298-561 SYSTEM,CIS 12/01 [place] Encounter [id number] - [facility] 62813-5 Diagnos BENIGNO,BRADL 12/01 [place] DISCHARGE [id number] is: EY A /2021 [facility] DAY ICD-10- [facility] CM I48.19 Other persist ent atrial fibrill ation<b r/>with Provide r Comment s: Persist ent atrial fibrill ation (SCT 5632415 07) Outpatient [id number] SYSTEM,CIS 12/02 [place] Encounter [id number] - [facility] Outpatient 12736-061 SYSTEM,CIS 12/03 [place] Encounter [id number] -AR [facility] Outpatient 89321-3.66 12/03 [place] Encounter [id number] [facility] 33152-9 Diagnos SUZETTE,SA 12/03 [place] INTERROG [id number] is: NDRA L [place] REMOTE ICD-10- HCS 1/2/ICT BUSINESS DEVELOPMENT MANAGER CM Z95.810 Presenc e of automat ic (implan table) cardiac defibri llator< br/>wit h Provide r Comment s: Cardiac defibri llator in situ ([facility] 4162242 02) [place] [address]-6.61 Diagnos UWIMBABAZI 12/04 [place] DIG [id number] is: ,DAHLIA [place] ASSMT&MGMT ICD-10- HCS 21+ CM Z51.81 Encount er for therape utic drug level monitor ing<br/ >with Provide r Comment s: Encount er for therape utic drug level monitor ing Outpatient 87415-4.61 12/05 [place] En[place] [id number] [place] [facility] [place] 84876-012/06 [place] En[place] [id number] [place] [facility] POSTOP 54898-2.61 Diagnos SUZETTE,SA 12/07 [place] FOLLOW-UP [id number] is: NDRA L [place] VISIT ICD-10- HCS CM Z95.810 Presenc e of automat ic (implan table) cardiac defibri llator< br/>wit h Provide r Comment s: Cardiac defibri llator in situ ([facility] 8143619 02) Outpatient 88482-2.12/12 [place] En[place] [id number] [facility] [place] 03991-4.61 12/21 [place] En[place] [id number] [place] [facility] [place] PRO 57102-3.61 Diagnos Ofe SAMS 12/21 [place] PHONE CALL [id number] is: ORDAN L [place] 11-20 [place] ICD-10- HCS CM E11.9 Type 2 diabete s mellitu s without complic ations< br/>wit h Provide r Comment s: Type 2 diabete s mellitu s (SCT 2910309 6) Outpatient 69631-0.61 Diagnos GENNARO,JANET 12/21 [place] Encounter [id number] is: HRYN M [facility] ICD-10- HCS CM I50.9 Heart failure , unspeci fied
with Provide r Comment s: Heart Failure , unspeci fied Outpatient 85491-561 01/02 [place] Encounter [id number] /2021 [facility] PM DEVICE 62095-4 Diagnos FASHINGBAU 01/07 [place] PROGR EVAL [id number] is: ER,MARGARE /2021 [facility] DUAL ICD-10- T HCS CM Z95.810 Presenc e of automat ic (implan table) cardiac defibri llator< br/>wit h Provide r Comment s: Cardiac defibri llator in situ (SCT 8234357 02) PRO 50589-4 Diagnos JANET BURDICK 01/08 [place] PHONE CALL [id number] is: HRYN M ALOK S [place] 11-20 [place] ICD-10- HCS CM I50.9 Heart failure , unspeci fied
with Provide r Comment s: Heart Failure , unspeci fied Outpatient 82549-601/11 [place] Encounter [id number] /2021 [facility] Outpatient 46105-1 Diagnos JANET BURDICK 01/18 [place] Encounter [id number] is: HRYN M /2021 [facility] ICD-10- HCS CM I50.9 Heart failure , unspeci fied
with Provide r Comment s: Heart Failure , unspeci fied HC PRO 45715-9 Diagnos Ofe SAMS 02/07 [place] PHONE CALL [id number] is: ORDAN L /2021 [place] 11[facility] [place] ICD-10- HCS CM E11.9 Type 2 diabete s mellitu s without complic ations< br/>wit h Provide r Comment s: Type 2 diabete s mellitu s (SCT 7970696 6) Outpatient 45340-5.66 02/12 [place] Encounter [id number] [place] [facility] Outpatient 90735-7.61 02/13 [place] Encounter [id number] [facility] Outpatient 75105-5.61 Diagnos GENNAROJANET 02/20 [place] Encounter [id number] is: HRYN M [facility] ICD-10- [facility] CM I50.9 Heart failure , unspeci fied
with Provide r Comment s: Heart Failure , unspeci fied Outpatient 29719-7.61 03/06 [place] Encounter [id number] [facility] Social History Combined list of available smoking, tobacco, and other social [facility]. Social History Type Response Date Comment Source Tobacco smoking status [facility] TOBACCO USE 11/29/2021 [facility] NHIS CURRENT NRT ACCEPT History of tobacco use [facility] TOBACCO USE 03/20/2021 [facility] CURRENT NRT DECLINE [facility] of [facility]/15/2020 [facility] NO History of tobacco [facility]IMMUNOLOG[facility] 06/21/2019 [facility] NO [facility] of [facility] [place] [facility] 06/09/2018 [facility] MIN OF WAKEUP History of tobacco use CURRENT TOBACCO USER 06/20/2017 [facility] History of tobacco use CURRENT TOBACCO USER 06/19/2016 [facility] History of tobacco use CURRENT TOBACCO USER 06/21/2015 [facility] History of tobacco use CURRENT TOBACCO USER 03/22/2014 [facility] History of tobacco use CURRENT TOBACCO USER 03/25/2013 [facility] History of tobacco use CURRENT TOBACCO USER 02/05/2012 [facility] History of tobacco use CURRENT TOBACCO USER 01/01/2011 [facility] History of tobacco use CURRENT TOBACCO USER 03/07/2010 [facility] History of tobacco use CURRENT TOBACCO USER 02/21/2009 [facility] History of tobacco use CURRENT TOBACCO USER 11/06/2007 [facility] History of tobacco use CURRENT TOBACCO USER 01/02/2007 [facility] This section is an [facility] empty social history section. Plan of Care List of future care activities from [facility] facilities. Additional future care activities may be listed in the Assessment and Plan section. Date/Time Care Activity Care Activity Detail Facility 03/21/2022 AMBULATORY - NONE AMBULATORY - NONE [facility] Advance Directives List of completed, amended, or rescinded Advance Directives on record at Department of Veterans Affairs facilities. An actual copy of the Directive is not included. Date Advance Directive Provider Source 03/06/2005 ADVANCE DIRECTIVE GANESH RODRIGUEZ [facility]
--- OUTSIDE RECORDS SUMMARY | 2022-04-02 16:02 | XMS_ITS | Encounter Summary ---
:1945 Author Organization Department [facility] Address [address] [place] [address] Care Team Providers Name Role Phone CROUCH SAKSHI Primary Care Provider Unavailable Insurance Providers: All historical and current Section Date Range: From patient's date of to the date document was created.This section includes the names of all active insurance providers for the patient. Insurance Type of Plan Start of End of Group Member Insurance Policy P atient's Provider Coverage Name Policy Policy Number ID Provider's Tapia's Relationship Coverage Coverage Telephone Name to Policy Number Tapia MEDICARE MEDICARE PART Jun 25, PART B [id number] Saumya QUINONES PATIENT (WNR) (M) B 2011 [id number] 0 AVID MEDICARE MEDICARE PART Sep 25, PART A [id number] Saumya QUINONES PATIENT (WNR) (M) A 2009 78A 0 AVID MEDICARE MEDICARE PART Sep 25, PART A [id number] Saumya MICHELE (WNR) (M) A 2009 78A [phone] AVID MEDICARE MEDICARE PART Sep 25, PART B [id number] Saumya MICHELE (WNR) (M) B 2009 78A [phone] AVID Selected Encounter This section includes the information on record at [place] for the Encounter. 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 Date/Time Primary/Secondary Diagnosis Name Provider Source Diagnosis Mar 22, 2021 PRIMARY Presence of GARETH GUZMÁN 06:26 PM automatic M [facility] (implantable) cardiac defibrillator Plan of Treatment: Future Appointments (+ 6 months) and Future Tests (+/- 45 days) The Plan of Treatment section includes future care activities for the patient from all [place] [facility]. This section includes future appointments and future orders which are active, pending orscheduled.Future Appointments This section includes appointments that were scheduled to occur 6 months from the date of the Encounter, up to a maximum of 20 appointments. The data comes from all [place] treatment facilities. Appointment Date/Time Appointment Type Appointment Facili ty Name Mar 23, 2021 02:30 PM AMBULATORY - MEDICINE [facility] Mar 23, 2021 03:00 PM AMBULATORY - MEDICINE [facility] Mar 26, 2021 09:00 AM AMBULATORY - NONE [facility] Apr 02, 2021 01:13 PM AMBULATORY - MEDICINE [facility] May 08, 2021 02:00 PM AMBULATORY - NONE [facility] Jun 13, 2021 02:00 PM AMBULATORY - NONE [facility] Jun 18, 2021 12:45 PM AMBULATORY - NONE [facility] Jun 18, 2021 01:30 PM AMBULATORY - MEDICINE [facility] Jun 20, 2021 10:00 AM AMBULATORY - MEDICINE [facility] Jul 11, 2021 01:00 PM AMBULATORY - NONE [facility] Jul 26, 2021 09:00 AM AMBULATORY - MEDICINE [facility] Jul 26, 2021 10:30 AM AMBULATORY - NONE [facility] Aug 03, 2021 10:46 AM AMBULATORY - MEDICINE [facility] Aug 08, 2021 07:00 AM AMBULATORY - NONE [facility] Aug 10, 2021 10:30 AM AMBULATORY - NONE [facility] Sep 14, 2021 09:00 AM AMBULATORY - NONE [facility] Sep 21, 2021 09:45 AM AMBULATORY - MEDICINE [facility] Sep 21, 2021 10:00 AM AMBULATORY - MEDICINE [facility] Sep 21, 2021 10:30 AM AMBULATORY - MEDICINE [facility] Sep 21, 2021 11:00 AM AMBULATORY - MEDICINE [facility] Lab Results: +/- 30 days of the encounter This section includes the Chemistry and Hematology Lab Results on record with [place] for the patient. Radiology Reports and Pathology Reports are provided separately, in subsequent sections.Lab Results This section contains the Chemistry/Hematology Results that were resulted 30 days before or 30 daysafter the date of the Encounter. Date/Time Source Result Type Result - Unit Interpretation Reference Range Comment Mar 23, 2021 09:57 AM [facility] POTASSIUM Specim en Type: PLASMA No comment enter ed. Ordering Provid er: RODO PINTO Report Released Date/Time: Mar 23, 2021 09:33 AM Reporting Lab: [facility] [address] Performing Lab: [facility] [address] POTASSIUM 4.6 mmol/L 3.5-5.1 Mar 23, 2021 06:48 [facility] BASIC METABOLIC Specimen Type: PLASMA AM PANEL+MG Comment: Cancel lation Called to: Dora Mae MSA 03/23/2021 @ 0930 by AEK. 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 Ordering Provid er: RODO PINTO Report Released Date/Time: Mar 22, 2021 10:19 AM Reporting Lab: [facility] [address] Performing Lab: [facility] [address] CREATININE 1.3 mg/dL H 0.7-1.2 UREA NITROGEN 25 mg/dL 8-26 GLUCOSE 170 mg/dL H 74-100 SODIUM 139 mmol/L 136-145 POTASSIUM canc mmol/L 3.5-5.1 CHLORIDE 109 mmol/L H 98-107 CO2 23 mmol/L 22-29 CALCIUM 9.0 mg/dL 8.4-10.2 MAGNESIUM 2.2 mg/dL 1.6-2.6 ANION GAP 7 mmol/L 5-15 ESTIMATED GFR(eGFR) 54 L >60 Mar 23, 2021 06:48 AM [facility] MAGNESIUM Specim en Type: PLASMA No comment enter ed. Ordering Provid er: RODO PINTO Report Released Date/Time: Mar 22, 2021 10:19 AM Reporting Lab: [facility] [address] Performing Lab: [facility] [address] MAGNESIUM 2.2 mg/dL 1.6-2.6 Mar 23, 2021 06:13 [facility] FINGERSTICK GLUCOSE Speci men Type: BLOOD AM Comment: [place] Nurse Notified Ordering Provid er: GRANTCARD II Report Released Date/Time: Mar 23, 2021 07:07 AM Reporting Lab: [facility] [address] [facility] [address] Performing Lab: [facility] [address] [facility] [address] FINGER[place]ICK GLUCOSE 168 mg/dL H 70-100 Mar 22, 2021 08:30 [facility] [place] GLUCOSE Speci men Type: BLOOD PM Comment: VENOUS SAMPLE Ordering Provid er: DARLYN BURNS II Report Released Date/Time: Mar 23, 2021 08:23 AM Reporting Lab: [facility] [address] [facility] [address] Performing Lab: [facility] [address] [facility] [address] FINGER[place]ICK GLUCOSE 240 mg/dL H 70-100 Mar 22, 2021 04:28 [facility] [place] GLUCOSE Speci men Type: BLOOD PM Comment: [place] Nurse Notified Ordering Provid er: GRANTCARD II Report Released Date/Time: Mar 22, 2021 04:42 PM Reporting Lab: [facility] [address] [facility] [address] Performing Lab: [facility] [address] [facility] [address] [place] GLUCOSE 197 mg/dL H 70-100 Mar 22, 2021 11:28 [facility] [place] GLUCOSE Speci men Type: BLOOD AM Comment: [place] Nurse Notified Ordering Provid er: TEAMCARD II Report Released Date/Time: Mar 22, 2021 12:14 PM Reporting Lab: [facility] [address] [facility] [address] Performing Lab: [facility] [address] [facility] [address] [place] GLUCOSE 225 mg/dL H 70-100 Mar 22, 2021 06:13 [facility] [place] GLUCOSE Speci men Type: BLOOD AM Comment: [place] Nurse Notified Ordering Provid er: GRANTCARD II Report Released Date/Time: Mar 22, 2021 12:13 PM Reporting Lab: [facility] [address] [facility] [address] Performing Lab: [facility] [address] [facility] [address] [place]ING[place] GLUCOSE 155 mg/dL H 70-100 Mar 21, 2021 07:36 [facility] [place] GLUCOSE Speci men Type: BLOOD PM Comment: [place] Nurse Notified Ordering Provid er: DARLYN BURNS II Report Released Date/Time: Mar 21, 2021 08:53 PM Reporting Lab: [facility] [address] [facility] [address] Performing Lab: [facility] [address] [facility] [address] FINGER[place]ICK GLUCOSE 214 mg/dL H 70-100 Mar 21, 2021 04:00 [facility] F[place] GLUCOSE Speci men Type: BLOOD PM Comment: [place] Nurse Notified Ordering Provid er: DARLYN BURNS II Report Released Date/Time: Mar 21, 2021 04:27 PM Reporting Lab: [facility] [address] [facility] [address] Performing Lab: [facility] [address] [facility] [address] [place]ING[place] GLUCOSE 252 mg/dL H 70-100 Mar 21, 2021 11:43 [facility] F[place] GLUCOSE Speci men Type: BLOOD AM Comment: [place] Nurse Notified Ordering Provid er: DARLYN BURNS II Report Released Date/Time: Mar 21, 2021 12:08 PM Reporting Lab: [facility] [address] [facility] [address] Performing Lab: [facility] [address] [facility] [address] [place]ING[place] GLUCOSE 227 mg/dL H 70-100 Mar 21, 2021 06:45 AM [facility] ALBUMIN Specim en Type: PLASMA No comment enter ed. Ordering Provid er: LISBET WASHINGTON V Report Released Date/Time: Mar 20, 2021 10:27 AM Reporting Lab: [facility] [address] [facility] [address] Performing Lab: [facility] [address] [facility] [address] ALBUMIN 3.5 g/dL 3.5-5.2 Mar 21, 2021 06:45 [facility] BASIC METABOLIC Specimen Type: PLASMA AM PANEL+MG No comment enter ed. Ordering Provid er: RODO PINTO Report Released Date/Time: Mar 20, 2021 02:43 PM Reporting Lab: [facility] [address] [facility] [address] Performing Lab: [facility] [address] [facility] [address] CREATININE 1.5 mg/dL H 0.7-1.2 UREA NITROGEN 26 mg/dL 8-26 GLUCOSE 207 mg/dL H 74-100 SODIUM 140 mmol/L 136-145 POTASSIUM 4.4 mmol/L 3.5-5.1 CHLORIDE 109 mmol/L H 98-107 CO2 24 mmol/L 22-29 CALCIUM 9.0 mg/dL 8.4-10.2 MAGNESIUM 2.3 mg/dL 1.6-2.6 ANION GAP 7 mmol/L 5-15 ESTIMATED GFR(eGFR) 46 L >60 Mar 21, 2021 06:38 [facility] FINGER[place]ICK GLUCOSE Speci men Type: BLOOD AM Comment: [place] Nurse Notified Ordering Provid er: TEAM,CARD II Report Released Date/Time: Mar 21, 2021 07:23 AM Reporting Lab: [facility] [address] [facility] [address] Performing Lab: [facility] [address] [address] [facility] [address] [place] GLUCOSE 159 mg/dL H 70-100 Mar 20, 2021 08:27 [facility] [place] GLUCOSE Speci men Type: BLOOD PM Comment: [place] Nurse Notified Ordering Provid er: GRANTCARD II Report Released Date/Time: Mar 20, 2021 10:52 PM Reporting Lab: [facility] [address] [place] [facility] [address] Performing Lab: [facility] [address] [address] [facility] [address] [place] GLUCOSE 224 mg/dL H 70-100 Mar 20, 2021 05:06 [facility] [place] GLUCOSE Speci men Type: BLOOD PM Comment: [place] Nurse Notified Ordering Provid er: GRANT,CARD II Report Released Date/Time: Mar 20, 2021 05:27 PM Reporting Lab: [facility] [address] [facility] [address] Performing Lab: [facility] [address] [place] GLUCOSE 183 mg/dL H 70-100 Mar 20, 2021 08:16 [facility] BASIC METABOLIC Specimen Type: PLASMA AM PANEL+MG No comment enter ed. Ordering Provid er: TUCKER JULIAN Report Released Date/Time: Mar 15, 2021 02:20 PM Reporting Lab: [facility] [address] Performing Lab: [facility] [address] CREATININE 1.6 mg/dL H 0.7-1.2 UREA NITROGEN 31 mg/dL H 8-26 GLUCOSE 216 mg/dL H 74-100 SODIUM 142 mmol/L 136-145 POTASSIUM 4.6 mmol/L 3.5-5.1 CHLORIDE 106 mmol/L 98-107 CO2 25 mmol/L 22-29 CALCIUM 9.3 mg/dL 8.4-10.2 MAGNESIUM 2.2 mg/dL 1.6-2.6 ANION GAP 11 mmol/L 5-15 ESTIMATED GFR(eGFR) 43 L >60 Mar 20, 2021 08:16 [facility] COVID-19 DIAGNOSTIC Speci men Type: NASOPHARYNGEAL AM PANEL (CEPHEID) Comment: Cepchiara samuel GeneXpert (618) Ordering Provid er: TUCKER JULIAN Report Released Date/Time: Mar 15, 2021 02:20 PM Reporting Lab: [facility] [address] Performing Lab: [facility] [address] COVID-19 (CEPHEID) Not Detected Not Dete cted Mar 05, 2021 09:42 [facility] BASIC METABOLIC Specimen Type: PLASMA AM PANEL+MG No comment enter ed. Ordering Provid er: VICENTE PELAEZ Report Released Date/Time: Feb 19, 2021 01:50 PM Reporting Lab: [facility] [id number] Performing Lab: [facility] [id number] CREATININE 1.4 mg/dL H 0.7-1.2 UREA NITROGEN 22 mg/dL 8-26 GLUCOSE 241 mg/dL H 74-100 SODIUM 139 mmol/L 136-145 POTASSIUM 4.6 mmol/L 3.5-5.1 CHLORIDE 105 mmol/L 98-107 CO2 24 mmol/L 22-29 CALCIUM 9.1 mg/dL 8.4-10.2 MAGNESIUM 2.1 mg/dL 1.6-2.6 ANION GAP 10 mmol/L 5-15 ESTIMATED GFR(eGFR) 50 L >60 Advance Directives: All historical and current Section Date Range: From patient's date of to the date document was created. This section includes ALL of a patient's completed or amended [place] Advance and Rescinded Directives. The entries below indicate that a directive exists for the patient, but an actual copy is not included with this document. The data comes from all [place] facilities. Date Advance Directives Provider Source Mar 06, 2005 ADVANCE DIRECTIVE GANESH RODRIGUEZ [facility]
--- OUTSIDE RECORDS SUMMARY | 2022-04-02 16:02 | XMS_ITS ---
HOSPITALIZATION [facility] Encounter Summary Created on:March 20, 2021 Patient:PAUL MICHELE Sex:Male :1945 Author Organization [facility] Address [address] [place], [place] [id number] Care Team Providers Name Role Phone WILLA SAKSHI Primary Care Provider Unavailable Insurance Providers: [...] MEDICARE MEDICARE PART Jun 25, PART B [id number] Saumya QUINONES PATIENT (WNR) (M) B 2011 78A 0 AVID MEDICARE MEDICARE PART Sep 25, PART A [id number] Saumya QUINONES PATIENT (WNR) (M) A 2009 78A 0 AVID MEDICARE MEDICARE PART Sep 25, PART A [id number] Saumya MICHELE (WNR) (M) A 2009 78A [id number] AVID MEDICARE MEDICARE PART Sep 25, PART B [id number] Saumya MICHELE (WNR) (M) B 2009 [id number] [id number] AVID Selected Encounter This section includes the information on record at [place] for the Encounter. Date/Time Encounter Type Encounter Description Reason Provider Source Mar 20, 2021 10:20 Inpatient Visit HOSPITALIZATION TEAM,CA RD II AM [facility] Encounter Template Text not used by MS Plan of Treatment: Future Appointments (+ 6 months) and Future Tests (+/- 45 days) The Plan of Treatment section includes [facility] care activities [facility] the [facility] This section includes future appointments and future orders which are active, pending orscheduled.Future Appointments This section includes appointments that were scheduled to occur 6 months from the date of the Encounter, up to a maximum of 20 appointments. The data comes from all [place] treatment facilities. Appointment Date/Time Appointment Type Appointment Facili ty Name Mar 22, 2021 06:26 PM AMBULATORY - MEDICINE [facility] Mar 23, 2021 02:30 PM AMBULATORY - MEDICINE [facility] Mar 23, 2021 03:00 PM AMBULATORY - MEDICINE [facility] Mar 26, 2021 09:00 AM AMBULATORY - [facility] Apr 02, 2021 01:13 PM AMBULATORY - MEDICINE [facility] May 08, 2021 02:00 PM AMBULATORY - NONE [facility] Jun 13, 2021 02:00 PM AMBULATORY - [facility] Jun 18, 2021 12:45 PM AMBULATORY - [facility] Jun 18, 2021 01:30 PM AMBULATORY - MEDICINE [facility] Jun 20, 2021 10:00 AM AMBULATORY - MEDICINE [facility] Jul 11, 2021 01:00 PM AMBULATORY - [facility] Jul 26, 2021 09:00 AM AMBULATORY - MEDICINE [facility] Jul 26, 2021 10:30 AM AMBULATORY - [facility] Aug 03, 2021 10:46 AM AMBULATORY - MEDICINE [facility] Aug 08, 2021 07:00 AM AMBULATORY - [facility] Aug 10, 2021 10:30 AM AMBULATORY - [facility] Sep 14, 2021 09:00 AM AMBULATORY - [facility] Lab Results: +/- 30 days of the encounter This section includes the Chemistry and Hematology Lab Results on record with [place] for the patient. Radiology Reports and Pathology Reports are provided separately, in subsequent sections.Lab Results This section contains the Chemistry/Hematology Results that were resulted 30 days before or 30 daysafter the date of the Encounter. Date/Time Source Result Type Result - Unit Interpretation Reference Range Comment Mar 23, 2021 09:57 AM [facility] POTASSIUM Specim en Type: PLASMA No comment enter ed. Ordering Provid er: RODO PINTO Report Released Date/Time: Mar 23, 2021 09:33 AM Reporting Lab: [facility] [address] [facility] [address] Performing Lab: [facility] [address] [facility] [address] POTASSIUM 4.6 mmol/L 3.5-5.1 Mar 23, 2021 06:48 [facility] BASIC METABOLIC Specimen Type: PLASMA AM PANEL+MG Comment: Cancel lation Called to: Dora Mae MSA 03/23/2021 @ 0930 by AEK. 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 Ordering Provid er: RODO PINTO Report Released Date/Time: Mar 22, 2021 10:19 AM Reporting Lab: [facility] [address] [facility] [address] Performing Lab: [facility] [address] CREATININE 1.3 mg/dL H 0.7-1.2 UREA NITROGEN 25 mg/dL 8-26 GLUCOSE 170 mg/dL H 74-100 SODIUM 139 mmol/L 136-145 POTASSIUM canc mmol/L 3.5-5.1 CHLORIDE 109 mmol/L H 98-107 CO2 23 mmol/L 22-29 CALCIUM 9.0 mg/dL 8.4-10.2 MAGNESIUM 2.2 mg/dL 1.6-2.6 ANION GAP 7 mmol/L 5-15 ESTIMATED GFR(eGFR) 54 L >60 Mar 23, 2021 06:48 AM [facility] MAGNESIUM Specim en Type: PLASMA No comment enter ed. Ordering Provid er: RODO PINTO Report Released Date/Time: Mar 22, 2021 10:19 AM Reporting Lab: [facility] [address] [facility] [address] Performing Lab: [facility] [address] [facility] [address] MAGNESIUM 2.2 mg/dL 1.6-2.6 Mar 23, 2021 06:13 [facility] [place] GLUCOSE Speci men Type: BLOOD AM Comment: [place] Nurse Notified Ordering Provid er: DARLYN BURNS II Report Released Date/Time: Mar 23, 2021 07:07 AM Reporting Lab: [facility] [address] [facility] [address] Performing Lab: [facility] [address] [facility] [address] [place] GLUCOSE 168 mg/dL H 70-100 Mar 22, 2021 08:30 [facility] [place] GLUCOSE Speci men Type: BLOOD PM Comment: VENOUS SAMPLE Ordering Provid er: DARLYN BURNS II Report Released Date/Time: Mar 23, 2021 08:23 AM Reporting Lab: [facility] [address] [facility] [address] Performing Lab: [facility] [address] [facility] [address] [place] GLUCOSE 240 mg/dL H 70-100 Mar 22, 2021 04:28 [facility] [place] GLUCOSE Speci men Type: BLOOD PM Comment: [place] Nurse Notified Ordering Provid er: DARLYN BURNS II Report Released Date/Time: Mar 22, 2021 04:42 PM Reporting Lab: [facility] [address] [facility] [address] Performing Lab: [facility] [address] [facility] [address] [place] GLUCOSE 197 mg/dL H 70-100 Mar 22, 2021 11:28 [facility] [place] GLUCOSE Speci men Type: BLOOD AM Comment: [place] Nurse Notified Ordering Provid er: DARLYN BURNS II Report Released Date/Time: Mar 22, 2021 12:14 PM Reporting Lab: [facility] [address] [facility] [address] Performing Lab: [facility] [address] [facility] [address] FING[place]ICK GLUCOSE 225 mg/dL H 70-100 Mar 22, 2021 06:13 [facility] [place] GLUCOSE Speci men Type: BLOOD AM Comment: [place] Nurse Notified Ordering Provid er: DARLYN BURNS II Report Released Date/Time: Mar 22, 2021 12:13 PM Reporting Lab: [facility] [address] [facility] [address] Performing Lab: [facility] [address] [facility] [address] FING[place] GLUCOSE 155 mg/dL H 70-100 Mar 21, 2021 07:36 [facility] [place] GLUCOSE Speci men Type: BLOOD PM Comment: [place] Nurse Notified Ordering Provid er: DARLYN BURNS II Report Released Date/Time: Mar 21, 2021 08:53 PM Reporting Lab: [facility] [address] [facility] [address] Performing Lab: [facility] [address] [facility] [address] FINGER[place]ICK GLUCOSE 214 mg/dL H 70-100 Mar 21, 2021 04:00 [facility] [place] GLUCOSE Speci men Type: BLOOD PM Comment: [place] Nurse Notified Ordering Provid er: DARLYN BURNS II Report Released Date/Time: Mar 21, 2021 04:27 PM Reporting Lab: [facility] [address] [facility] [address] Performing Lab: [facility] [address] [facility] [address] FING[place]ICK GLUCOSE 252 mg/dL H 70-100 Mar 21, 2021 11:43 [facility] [place] GLUCOSE Speci men Type: BLOOD AM Comment: [place] Nurse Notified Ordering Provid er: DARLYN BURNS II Report Released Date/Time: Mar 21, 2021 12:08 PM Reporting Lab: [facility] [address] [facility] [address] Performing Lab: [facility] [address] [facility] [address] [place] GLUCOSE 227 mg/dL H 70-100 Mar 21, 2021 06:45 AM [facility] ALBUMIN Specim en Type: PLASMA No comment enter ed. Ordering Provid er: LISBET [place] V Report Released Date/Time: Mar 20, 2021 10:27 AM Reporting Lab: [facility] [address] [facility] [address] Performing Lab: [facility] [address] [facility] [address] ALBUMIN 3.5 g/dL 3.5-5.2 Mar 21, 2021 06:45 [facility] BASIC METABOLIC Specimen Type: PLASMA AM PANEL+MG No comment enter ed. Ordering Provid er: RODO PINTO Report Released Date/Time: Mar 20, 2021 02:43 PM Reporting Lab: [facility] [address] [facility] [address] Performing Lab: [facility] [address] [facility] [address] CREATININE 1.5 mg/dL H 0.7-1.2 UREA NITROGEN 26 mg/dL 8-26 GLUCOSE 207 mg/dL H 74-100 SODIUM 140 mmol/L 136-145 POTASSIUM 4.4 mmol/L 3.5-5.1 CHLORIDE 109 mmol/L H 98-107 CO2 24 mmol/L 22-29 CALCIUM 9.0 mg/dL 8.4-10.2 MAGNESIUM 2.3 mg/dL 1.6-2.6 ANION GAP 7 mmol/L 5-15 ESTIMATED GFR(eGFR) 46 L >60 Mar 21, 2021 06:38 [facility] [place] GLUCOSE Speci men Type: BLOOD AM Comment: [place] Nurse Notified Ordering Provid er: TEAM,CARD II Report Released Date/Time: Mar 21, 2021 07:23 AM Reporting Lab: [facility] [address] [facility] [address] Performing Lab: [facility] [address] [facility] [address] [place] GLUCOSE 159 mg/dL H 70-100 Mar 20, 2021 08:27 [facility] [place] GLUCOSE Speci men Type: BLOOD PM Comment: [place] Nurse Notified Ordering Provid er: TEAM,CARD II Report Released Date/Time: Mar 20, 2021 10:52 PM Reporting Lab: [facility] [address] [facility] [address] Performing Lab: [facility] [address] [facility] [address] F[place] GLUCOSE 224 mg/dL H 70-100 Mar 20, 2021 05:06 [facility] [place] GLUCOSE Speci men Type: BLOOD PM Comment: [place] Nurse Notified Ordering Provid er: TEAM,CARD II Report Released Date/Time: Mar 20, 2021 05:27 PM Reporting Lab: [facility] [address] [facility] [address] Performing Lab: [facility] [address] [facility] [address] [place]ING[place] GLUCOSE 183 mg/dL H 70-100 Mar 20, 2021 08:16 [facility] BASIC METABOLIC Specimen Type: PLASMA AM PANEL+MG No comment enter ed. Ordering Provid er: TUCKER JULIAN Report Released Date/Time: Mar 15, 2021 02:20 PM Reporting Lab: [facility] [address] [facility] [address] Performing Lab: [facility] [address] [facility] [address] CREATININE 1.6 mg/dL H 0.7-1.2 UREA NITROGEN 31 mg/dL H 8-26 GLUCOSE 216 mg/dL H 74-100 SODIUM 142 mmol/L 136-145 POTASSIUM 4.6 mmol/L 3.5-5.1 CHLORIDE 106 mmol/L 98-107 CO2 25 mmol/L 22-29 CALCIUM 9.3 mg/dL 8.4-10.2 MAGNESIUM 2.2 mg/dL 1.6-2.6 ANION GAP 11 mmol/L 5-15 ESTIMATED GFR(eGFR) 43 L >60 Mar 20, 2021 08:16 [facility] COVID-19 DIAGNOSTIC Speci men Type: NASOPHARYNGEAL AM PANEL (CEPHEID) Comment: Wiley samuel GeneXpert ([id number]) Ordering Provid er: TUCKER JULIAN Report Released Date/Time: Mar 15, 2021 02:20 PM Reporting Lab: [facility] [address] Performing Lab: [facility] [address] COVID-19 (CEPHEID) Not Detected Not Dete cted Mar 05, 2021 09:42 [facility] BASIC METABOLIC Specimen Type: PLASMA AM PANEL+MG No comment enter ed. Ordering Provid er: VICENTE PELAEZ Report Released Date/Time: Feb 19, 2021 01:50 PM Reporting Lab: [facility] [address] Performing Lab: [facility] [address] CREATININE 1.4 mg/dL H 0.7-1.2 UREA NITROGEN 22 mg/dL 8-26 GLUCOSE 241 mg/dL H 74-100 SODIUM 139 mmol/L 136-145 POTASSIUM 4.6 mmol/L 3.5-5.1 CHLORIDE 105 mmol/L 98-107 CO2 24 mmol/L 22-29 CALCIUM 9.1 mg/dL 8.4-10.2 MAGNESIUM 2.1 mg/dL 1.6-2.6 ANION GAP 10 mmol/L 5-15 ESTIMATED GFR(eGFR) 50 L >60 Feb 19, 2021 12:03 PM [facility] AST/SGOT Specim en Type: PLASMA No comment enter ed. Ordering Provid er: SAKSHI CRUOCH Report Released Date/Time: January 17, 2021 05:13 PM Reporting Lab: [facility] [address] Performing Lab: [facility] [address] AST/SGOT 28 U/L <34 Feb 19, 2021 12:03 PM [facility] ALT/SGPT Specim en Type: PLASMA No comment enter ed. Ordering Provid er: SAKSHI CROUCH Report Released Date/Time: January 17, 2021 05:13 PM Reporting Lab: [facility] [address] [facility] [address] Performing Lab: [facility] [address] [facility] [address] ALT/SGPT 32 U/L <55 Feb 19, 2021 [facility] CREATININE(INCLUDES EGFR) Sp ecimen Type: PLASMA 12:03 PM No comment enter ed. Ordering Provid er: SAKSHI CROUCH Report Released Date/Time: January 17, 2021 05:13 PM Reporting Lab: [facility] [address] [facility] [address] Performing Lab: [facility] [address] [facility] [address] CREATININE 1.4 mg/dL H 0.7-1.2 ESTIMATED GFR(eGFR) 50 L >60 Feb 19, 2021 12:03 PM [facility] POTASSIUM Specim en Type: PLASMA No comment enter ed. Ordering Provid er: SAKSHI CROUCH Report Released Date/Time: January 17, 2021 05:13 PM Reporting Lab: [facility] [address] [facility] [address] Performing Lab: [facility] [address] [facility] [address] POTASSIUM 4.2 mmol/L 3.5-5.1 Feb 19, 2021 12:03 PM [facility] HEMOGLOBIN A1C Specim en Type: BLOOD No comment enter ed. Ordering Provid er: SAKSHI CROUCH Report Released Date/Time: January 17, 2021 05:13 PM Reporting Lab: [facility] [address] [facility] [address] Performing Lab: [facility] [address] [facility] [address] HEMOGLOBIN A1C 10.0 H 4.0-6.0 Social History: Smoking Status (Most current) and Tobacco Use (All prior to encounter date) This section includes the most current, and the historical, smoking and tobacco-related health factors from the [place] facility where the Encounter took place.Current Smoking Status This section includes the most current smoking, or tobacco-related health factor, from the [place] facility where the Encounter took place. Date/Time Current Smoking Status Comment Facility Mar 20, 2021 11:21 AM [facility] TOBACCO USE CURRENT NRT [facility] DECLINE Tobacco Use History This section includes a history of the smoking, or tobacco- related health factors, that were collected on or before the date of the Encounter. The data comes from the [place] facility where the Encounter took place. Date/Time Smoking Status/Tobacco Use Comment Nicola ity Nov 15, 2020 10:00 AM VA-TOBACCO DOESNT USE WI 30 MIN [facility] WAKEUP Nov 15, 2020 10:00 AM VA-TOBACCO USE 30 YEARS OR MORE [facility] Nov 15, 2020 10:00 AM VA-TOBACCO USE ADVICE [place] [facility] Nov 15, 2020 10:00 AM VA-TOBACCO USE DIRECTOR CONSTRUCTION SERVICES NO [facility] Nov 15, 2020 10:00 AM VA-TOBACCO USE MED NO [place] [facility] Nov 15, 2020 10:00 AM VA-TOBACCO USER EVERY DAY [facility] Jun 21, 2019 02:29 PM VA-TOBACCO USE 30 YEARS OR MORE [facility] Jun 21, 2019 02:29 PM VA-TOBACCO USE ADVICE [place] [facility] Jun 21, 2019 02:29 PM VA-TOBACCO USE DIRECTOR CONSTRUCTION SERVICES NO [facility] Jun 21, 2019 02:29 PM VA-TOBACCO USE MED NO [place] [facility] Jun 21, 2019 02:29 PM VA-TOBACCO USE [place] 30 MIN OF WAKEUP [facility] Jun 21, 2019 02:29 PM VA-TOBACCO USER EVERY DAY [facility] Jun 09, 2018 03:48 PM VA-TOBACCO USE 30 YEARS OR MORE [facility] Jun 09, 2018 03:48 PM VA-TOBACCO USE ADVICE [place] [facility] Jun 09, 2018 03:48 PM VA-TOBACCO USE DIRECTOR CONSTRUCTION SERVICES NO [facility] Jun 09, 2018 03:48 PM VA-TOBACCO USE MED NO [place] [facility] Jun 09, 2018 03:48 PM VA-TOBACCO USE [place] 30 MIN OF WAKEUP [facility] Jun 09, 2018 03:48 PM VA-TOBACCO USER EVERY DAY [facility] Jun 20, 2017 07:53 AM [facility] Jun 19, 2016 08:41 AM CURRENT TOBACCO USER [facility] Jun 21, 2015 08:15 AM CURRENT TOBACCO USER [facility] Mar 22, 2014 10:03 AM CURRENT [facility]AC[facility] Mar 25, 2013 11:01 AM CURRENT TOBACCO USER [facility] Feb 05, 2012 08:55 AM CURRENT TOBACCO USER [facility] January 01, 2011 09:26 AM CURRENT TOBACCO USER [facility] Mar 07, 2010 10:02 AM CURRENT TOBACCO USER [facility] Feb 21, 2009 08:17 AM CURRENT TOBACCO USER [facility] Nov 06, 2007 10:02 AM CURRENT TOBACCO USER [facility] January 02, 2007 10:33 AM CURRENT TOBACCO USER [facility] Advance Directives: All historical and current Section Date Range: From patient's date of to the date document was created. This section includes ALL of a patient's completed or amended [place] Advance and Rescinded Directives. The entries below indicate that a directive exists for the patient, but an actual copy is not included with this document. The data comes from all [place] facilities. Date Advance Directives Provider Source Mar 06, 2005 ADVANCE DIRECTIVE GANESH RODRIGUEZ [facility]
--- OUTSIDE RECORDS SUMMARY | 2022-04-02 16:02 | XMS_ITS | Encounter Summary ---
:1945 Author Organization [facility] Address [address] [place] [address] Support Name Relationship Address Phone NIDIA MICHELE Unavailable [phone] [place] [phone] NIDIA MICHELE Unavailable [address] [place] [phone] Insurance Providers: All historical and current Section [...] MEDICARE MEDICARE PART Jun 25, PART B [id number] Lizzie QUINONES PATIENT (WNR) (M) B 2011 78A 0 AVID MEDICARE MEDICARE PART Sep 25, PART A [id number] Lizzie QUINONES PATIENT (WNR) (M) A 2009 78A 0 AVID MEDICARE MEDICARE PART Sep 25, PART A [id number] Lizzie MICHELE (WNR) (M) A 2009 78A [phone] AVID MEDICARE MEDICARE PART Sep 25, PART B [id number] Lizzie MICHELE (WNR) (M) B 2009 78A [phone] AVID Selected Encounter This section includes the information on record at [place] for the Encounter. Date/Time Encounter Type Encounter Description Reason Provider Source Mar 20, 2021 12:47 PM Inpatient Visit CLINICAL PHARMACY E Encounter Template Text not used by [place] Plan of Treatment: Future Appointments (+ 6 months) and Future Tests (+/- 45 days) The Plan of Treatment section includes future care activities for the patient from all [facility] treatment[facility]ilities. This section includes future appointments and future orders which are active, pending orscheduled.Future Appointments This section includes appointments that were scheduled to occur 6 months from the date of the Encounter, up to a maximum of 20 appointments. The data comes from all [place] treatment facilities. Appointment Date/Time Appointment Type Appointment Facili ty Name Mar 22, 2021 06:26 PM AMBULATORY - MEDICINE [facility] Mar 23, 2021 02:30 PM AMBULATORY - MEDICINE [facility] Mar 23, 2021 03:00 PM AMBULATORY - MEDICINE [facility] Mar 26, 2021 09:00 AM AMBULATORY - NONE [facility] Apr 02, 2021 01:13 PM AMBULATORY - MEDICINE [facility] May 08, 2021 02:00 PM AMBULATORY - NONE [facility] Jun 13, 2021 02:00 PM AMBULATORY - NONE [facility] Jun 18, 2021 12:45 PM AMBULATORY - NONE [facility] Jun 18, 2021 01:30 PM AMBULATORY - MEDICINE [facility] Jun 20, 2021 10:00 AM AMBULATORY - MEDICINE [facility] Jul 11, 2021 01:00 PM AMBULATORY - NONE [facility] Jul 26, 2021 09:00 AM AMBULATORY - MEDICINE [facility] Jul 26, 2021 10:30 AM AMBULATORY - NONE [facility] Aug 03, 2021 10:46 AM AMBULATORY - MEDICINE [facility] Aug 08, 2021 07:00 AM AMBULATORY - NONE [facility] Aug 10, 2021 10:30 AM AMBULATORY - NONE [facility] Sep 14, 2021 09:00 AM AMBULATORY - NONE [facility] Lab Results: +/- 30 days of the encounter This section includes the Chemistry and Hematology Lab Results on record with [place] for the patient. Radiology Reports and Pathology Reports are provided separately, in subsequent sections.Lab Results This section contains the Chemistry/Hematology Results that were resulted 30 days before or 30 daysafter the date of the Encounter. Date/Time Source Result Type Result - Unit Interpretation Reference Range Comment Mar 23, 2021 09:57 AM [facility] POTASSIUM Specim en Type: PLASMA No comment enter ed. Ordering Provid er: RODO PINTO Report Released Date/Time: Mar 23, 2021 09:33 AM Reporting Lab: [facility] [address] [facility] [address] Performing Lab: [facility] [address] POTASSIUM 4.6 3.5-5.1 Mar 23, 2021 06:48 AM [facility] MAGNESIUM Specim en Type: PLASMA No comment enter ed. Ordering Provid er: RODO PINTO Report Released Date/Time: Mar 22, 2021 10:19 AM Reporting Lab: [facility] [address] [facility] [address] Performing Lab: [facility] [address] [facility] [address] MAGNESIUM 2.2 1.6-2.6 Mar 23, 2021 06:48 [facility] BASIC METABOLIC Specimen Type: PLASMA AM PANEL+MG Comment: Cancel lation Called to: Dora Mae MSA 03/23/2021 @ 0930 by AEK. 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 Ordering Provid er: RODO PINTO Report Released Date/Time: Mar 22, 2021 10:19 AM Reporting Lab: [facility] [address] [facility] [address] Performing Lab: [facility] [address] [facility] [address] CREATININE 1.3 H 0.7-1.2 UREA NITROGEN 25 8-26 GLUCOSE 170 H 74-100 SODIUM 139 136-145 POTASSIUM canc 3.5-5.1 CHLORIDE 109 H 98-107 CO2 23 22-29 CALCIUM 9.0 8.4-10.2 MAGNESIUM 2.2 1.6-2.6 ANION GAP 7 5-15 ESTIMATED GFR(eGFR) 54 L >60 Mar 23, 2021 06:13 [facility] [place] GLUCOSE Speci men Type: BLOOD AM Comment: [place] Nurse Notified Ordering Provid er: GRANTCARD II Report Released Date/Time: Mar 23, 2021 07:07 AM Reporting Lab: [facility] [address] [facility] [address] Performing Lab: [facility] [address] [facility] [address] [place] GLUCOSE 168 H 70-100 Mar 22, 2021 08:30 [facility] [place] GLUCOSE Speci men Type: BLOOD PM Comment: VENOUS SAMPLE Ordering Provid er: GRANTCARD II Report Released Date/Time: Mar 23, 2021 08:23 AM Reporting Lab: [facility] [address] [facility] [address] Performing Lab: [facility] [address] [facility] [address] [place] GLUCOSE 240 H 70-100 Mar 22, 2021 04:28 [facility] [place] GLUCOSE Speci men Type: BLOOD PM Comment: [place] Nurse Notified Ordering Provid er: GRANTCARD II Report Released Date/Time: Mar 22, 2021 04:42 PM Reporting Lab: [facility] [address] [facility] [address] Performing Lab: [facility] [address] [facility] [address] [place] GLUCOSE 197 H 70-100 Mar 22, 2021 11:28 [facility] [place] GLUCOSE Speci men Type: BLOOD AM Comment: [place] Nurse Notified Ordering Provid er: GRANTCARD II Report Released Date/Time: Mar 22, 2021 12:14 PM Reporting Lab: [facility] [address] [facility] [address] Performing Lab: [facility] [address] [facility] [address] [place] GLUCOSE 225 H 70-100 Mar 22, 2021 06:13 [facility] [place] GLUCOSE Speci men Type: BLOOD AM Comment: [place] Nurse Notified Ordering Provid er: GRANTCARD II Report Released Date/Time: Mar 22, 2021 12:13 PM Reporting Lab: [facility] [address] [facility] [address] Performing Lab: [facility] [address] [facility] [address] [place] GLUCOSE 155 H 70-100 Mar 21, 2021 07:36 [facility] [place] GLUCOSE Speci men Type: BLOOD PM Comment: [place] Nurse Notified Ordering Provid er: GRANTCARD II Report Released Date/Time: Mar 21, 2021 08:53 PM Reporting Lab: [facility] [address] [facility] [address] Performing Lab: [facility] [address] [facility] [address] [place] GLUCOSE 214 H 70-100 Mar 21, 2021 04:00 [facility] F[place] GLUCOSE Speci men Type: BLOOD PM Comment: [place] Nurse Notified Ordering Provid er: GRANTCARD II Report Released Date/Time: Mar 21, 2021 04:27 PM Reporting Lab: [facility] [address] [facility] [address] Performing Lab: [facility] [address] [facility] [address] [place] GLUCOSE 252 H 70-100 Mar 21, 2021 11:43 [facility] [place] GLUCOSE Speci men Type: BLOOD AM Comment: [place] Nurse Notified Ordering Provid er: DARLYN BURNS II Report Released Date/Time: Mar 21, 2021 12:08 PM Reporting Lab: [facility] [address] [facility] [address] Performing Lab: [facility] [address] [facility] [address] [place] GLUCOSE 227 H 70-100 Mar 21, 2021 06:45 AM [facility] ALBUMIN Specim en Type: PLASMA No comment enter ed. Ordering Provid er: LISBET WASHINGTON V Report Released Date/Time: Mar 20, 2021 10:27 AM Reporting Lab: [facility] [address] [facility] [address] Performing Lab: [facility] [address] [facility] [address] ALBUMIN 3.5 3.5-5.2 Mar 21, 2021 06:45 [facility] BASIC METABOLIC Specimen Type: PLASMA AM PANEL+MG No comment enter ed. Ordering Provid er: RODO PINTO Report Released Date/Time: Mar 20, 2021 02:43 PM Reporting Lab: [facility] [address] [facility] [address] Performing Lab: [facility] [address] [facility] [address] CREATININE 1.5 H 0.7-1.2 UREA NITROGEN 26 8-26 GLUCOSE 207 H 74-100 SODIUM 140 136-145 POTASSIUM 4.4 3.5-5.1 CHLORIDE 109 H 98-107 CO2 24 22-29 CALCIUM 9.0 8.4-10.2 MAGNESIUM 2.3 1.6-2.6 ANION GAP 7 5-15 ESTIMATED GFR(eGFR) 46 L >60 Mar 21, 2021 06:38 [facility] [place] GLUCOSE Speci men Type: BLOOD AM Comment: [place] Nurse Notified Ordering Provid er: DARLYN BURNS II Report Released Date/Time: Mar 21, 2021 07:23 AM Reporting Lab: [facility] [address] [facility] [address] Performing Lab: [facility] [address] [facility] [address] [place] GLUCOSE 159 H 70-100 Mar 20, 2021 08:27 [facility] [place] GLUCOSE Speci men Type: BLOOD PM Comment: [place] Nurse Notified Ordering Provid er: DARLYN BURNS II Report Released Date/Time: Mar 20, 2021 10:52 PM Reporting Lab: [facility] [address] [facility] [address] Performing Lab: [facility] [address] [facility] [address] [place] GLUCOSE 224 H 70-100 Mar 20, 2021 05:06 [facility] [place] GLUCOSE Speci men Type: BLOOD PM Comment: [place] Nurse Notified Ordering Provid er: GRANTCARD II Report Released Date/Time: Mar 20, 2021 05:27 PM Reporting Lab: [facility] [address] [facility] [address] Performing Lab: [facility] [address] [facility] [address] [place] GLUCOSE 183 H 70-100 Mar 20, 2021 08:16 [facility] COVID-19 DIAGNOSTIC Speci men Type: NASOPHARYNGEAL AM PANEL (CEPHEID) Comment: Cephei lizzie GeneXpert (618) Ordering Provid er: TUCKER JULIAN Report Released Date/Time: Mar 15, 2021 02:20 PM Reporting Lab: [facility] [address] [facility] [address] Performing Lab: [facility] [address] [facility] [address] COVID-19 (CEPHEID) Not Detected Not Dete cted Mar 20, 2021 08:16 [facility] BASIC METABOLIC Specimen Type: PLASMA AM PANEL+MG No comment enter ed. Ordering Provid er: TUCKER JULIAN Report Released Date/Time: Mar 15, 2021 02:20 PM Reporting Lab: [facility] [address] [facility] [address] Performing Lab: [facility] [address] [facility] [address] CREATININE 1.6 H 0.7-1.2 UREA NITROGEN 31 H 8-26 GLUCOSE 216 H 74-100 SODIUM 142 136-145 POTASSIUM 4.6 3.5-5.1 CHLORIDE 106 98-107 CO2 25 22-29 CALCIUM 9.3 8.4-10.2 MAGNESIUM 2.2 1.6-2.6 ANION GAP 11 5-15 ESTIMATED GFR(eGFR) 43 L >60 Mar 05, 2021 09:42 [facility] BASIC METABOLIC Specimen Type: PLASMA AM PANEL+MG No comment enter ed. Ordering Provid er: VICENTE PELAEZ Report Released Date/Time: Feb 19, 2021 01:50 PM Reporting Lab: [facility] [address] [facility] [address] Performing Lab: [facility] [address] CREATININE 1.4 H 0.7-1.2 UREA NITROGEN 22 8-26 GLUCOSE 241 H 74-100 SODIUM 139 136-145 POTASSIUM 4.6 3.5-5.1 CHLORIDE 105 98-107 CO2 24 22-29 CALCIUM 9.1 8.4-10.2 MAGNESIUM 2.1 1.6-2.6 ANION GAP 10 5-15 ESTIMATED GFR(eGFR) 50 L >60 Feb 19, 2021 12:03 PM [facility] AST/SGOT Specim en Type: PLASMA No comment enter ed. Ordering Provid er: SAKSHI CROUCH Report Released Date/Time: January 17, 2021 05:13 PM Reporting Lab: [facility] [address] Performing Lab: [facility] [address] AST/SGOT 28 <34 Feb 19, 2021 12:03 PM [facility] ALT/SGPT Specim en Type: PLASMA No comment enter ed. Ordering Provid er: SAKSHI CROUCH Report Released Date/Time: January 17, 2021 05:13 PM Reporting Lab: [facility] [address] Performing Lab: [facility] [address] ALT/SGPT 32 <55 Feb 19, 2021 [facility] CREATININE(INCLUDES EGFR) Sp ecimen Type: PLASMA 12:03 PM No comment enter ed. Ordering Provid er: SAKSHI CROUCH Report Released Date/Time: January 17, 2021 05:13 PM Reporting Lab: [facility] [address] Performing Lab: [facility] [address] CREATININE 1.4 H 0.7-1.2 ESTIMATED GFR(eGFR) 50 L >60 Feb 19, 2021 12:03 PM [facility] POTASSIUM Specim en Type: PLASMA No comment enter ed. Ordering Provid er: SAKSHI CROUCH Report Released Date/Time: January 17, 2021 05:13 PM Reporting Lab: [facility] [address] [facility] [address] Performing Lab: [facility] [address] [facility] [address] POTASSIUM 4.2 3.5-5.1 Feb 19, 2021 12:03 PM [facility] HEMOGLOBIN A1C Specim en Type: BLOOD No comment enter ed. Ordering Provid er: SAKSHI CROUCH Report Released Date/Time: January 17, 2021 05:13 PM Reporting Lab: [facility] [address] [facility] [address] Performing Lab: [facility] [address] [facility] [address] HEMOGLOBIN A1C 10.0 H 4.0-6.0 Social History: Smoking Status (Most current) and Tobacco Use (All prior to encounter date) This section includes the most current, and the historical, smoking and tobacco-related health factors from the [place] facility where the Encounter took place.Current Smoking Status This section includes the most current smoking, or tobacco-related health factor, from the [place] facility where the Encounter took place. Date/Time Current Smoking Status Comment Facility Mar 20, 2021 11:21 AM [facility] TOBACCO USE CURRENT NRT [facility] DECLINE Tobacco Use History This section includes a history of the smoking, or tobacco- related health factors, that were collected on or before the date of the Encounter. The data comes from the [place] facility where the Encounter took place. 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 [facility] Nov 15, 2020 10:00 AM VA-TOBACCO USE MED NO [place] [facility] Nov 15, 2020 10:00 AM VA-TOBACCO USER EVERY DAY [facility] Jun 21, 2019 02:29 PM VA-TOBACCO USE 30 YEARS OR MORE [facility] Jun 21, 2019 02:29 PM VA-TOBACCO USE ADVICE [place] [facility] Jun 21, 2019 02:29 PM 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 [facility] Jun 21, 2019 02:29 PM [facility]ACCO [facility] Jun 21, 2019 02:29 PM VA-TOBACCO USE WI 30 MIN OF WAKEUP [facility] Jun 21, 2019 02:29 PM VA-TOBACCO USER EVERY DAY [facility] Jun 09, 2018 03:48 PM VA-TOBACCO USE 30 YEARS OR MORE [facility] Jun 09, 2018 03:48 PM VA-TOBACCO USE ADVICE [facility] Jun 09, 2018 03:48 PM 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 [facility] Jun 09, 2018 03:48 PM [facility] Jun 09, 2018 03:48 PM VA-TOBACCO USE WI 30 MIN OF WAKEUP [facility] Jun 09, 2018 03:48 PM VA-TOBACCO USER EVERY DAY [facility] Jun 20, 2017 07:53 AM CURRENT TOBACCO USER [facility] Jun 19, 2016 08:41 AM CURRENT TOBACCO USER [facility] Jun 21, 2015 08:15 AM CURRENT TOBACCO USER [facility] Mar 22, 2014 10:03 AM CURRENT TOBACCO USER [facility] Mar 25, 2013 11:01 AM CURRENT TOBACCO USER [facility] Feb 05, 2012 08:55 AM CURRENT TOBACCO USER [facility] January 01, 2011 09:26 AM CURRENT TOBACCO USER [facility] Mar 07, 2010 10:02 AM CURRENT TOBACCO USER [facility] Feb 21, 2009 08:17 AM CURRENT TOBACCO USER [facility] Nov 06, 2007 10:02 AM CURRENT TOBACCO USER [facility] January 02, 2007 10:33 AM CURRENT TOBACCO USER [facility] Advance Directives: All historical and current Section Date Range: From patient's date of to the date document was created. This section includes ALL of a patient's completed or amended [place] Advance and Rescinded Directives. The entries below indicate that a directive exists for the patient, but an actual copy is not included with this document. The data comes from all [place] facilities. Date Advance Directives Provider Source Mar 06, 2005 ADVANCE DIRECTIVE GANESH RODRIGUEZ [facility] Encounter Notes: All associated encounter notes This section contains the clinical notes associated to the Encounter. Date/Time Encounter Note(s) Provider Source Mar 20, 2021 12:47 PM PHARMACY MEDICATION MGT NOTE: CHRISSY MILLER [facility] LOCAL TITLE: DRUG RECONCILIATION ON ADMIT STANDARD TITLE: PHARMACY MEDICATION MGT NOTE DATE OF NOTE: MAR 20, 2021@12:47 ENTRY DATE: MAR 20, 2021@12:47:59 AUTHOR: SJ MILLER EXP COSIGNER: URGENCY: STATUS: COMPLETED PHARMACY MEDICATION HISTORY NOTE Medication & allergy history was compiled by yelena valencia to assist providers ordering inpatient medicatio ns. Essential medication list includes active local & remote VA prescriptions, non-VA medica tions, recently & discontinued prescriptions, pending & clinic medication order s. With the exception of allergies, if a category is not listed below, there were no relevant medications for the patient. Current active & pending inpati ent medication orders will be reviewed to complete medication reconciliation. COVID-19 ([employer]), MRNA, LNP-S, P* 2 11/04/2020 [place] 1 10/14/2020 [place]* INTERVIEW Patient and/or caregiver has been INTERVIEWED by pharmacy. Allergies: FACILITY ALLERGY/ADR -------- No Remote Allergy/ADR Data available for this pa meryl [facility] LISINOPRIL Tobacco use within the last 30 days: Yes Type/Amount: Cigarettes; 1 ppd Interested in inpatient NRT? No Interested in outpatient NRT? No Interested in talking with pharmacist after dis charge? No Patient has a HHN through [employer] [facility] that assists with medication management (PH: [phone]) through filling a pill box. Patient could recognize medication n angelina but was uncertain of directions for use. Generalist verified scheduled oral medications with HHN, angela addison discrepancies noted below. Source of Info: [facility] Drug Last Refills Qty Filled Remaining ---- --- ------ --------- ALBUTEROL 90MCG (CFC-F) 200D ORAL INHL 1 021 (7) 2 PUFFS QID PRN FOR SHORTNESS OF BREATH *SHAKE WELL* (FOR IMMEDIATE RELIEF) Pt using ~daily APIXABAN 5MG TAB 60 02/22/2021 (10) ONE Q12H TO PREVENT BLOOD CLOTS, STROKE (AM, PM) ATORVASTATIN CALCIUM 80MG TAB 45 11/30/2020 (3) ONE-HALF QHS FOR CHOLESTEROL (HS) DIGOXIN 0.125MG TAB 90 01/15/2021 (2) ONE QDAY This medication was not listed by HHN, however, pt reports he believes he is taking, stating the medication sounded familiar EMPAGLIFLOZIN 25MG TAB 60 03/15/2021 (2) ONE QDAY (AM) FLUTICASONE 230/SALMET 21MCG 120D INHL 2 021 (3) 1 PUFF Q12H RINSE MOUTH AFTER EACH USE; REPLACES SYMBICORT FUROSEMIDE 40MG TAB 90 01/15/2021 (1) ONE QDAY (AM) GABAPENTIN 300MG CAP 360 01/31/2021 (3) TWO TID FOR LEG PAIN GLIPIZIDE 10MG TAB 360 01/19/2021 (2) TWO BID 30 MINUTES BEFORE MEAL FOR DIABETES METFORMIN HCL 1000MG TAB 180 01/31/2021 (3) ONE TWO TIMES A DAY FOR DIABETES METOPROLOL SUCCINATE 25MG SA TAB 135 01/31/2021 (3) ONE AND ONE-HALF QDAY FOR HEART This dose reduction was started during 03/08/21 HHN visit, previously patient was splitting 100mg tab (50mg qday) NITROGLYCERIN 0.4MG SL TAB 100 11/16/2020 (3) DISSOLVE ONE UNDER THE TONGUE ONCE FOR CHEST PA IN * MAY REPEAT EVERY 5 MINUTES--NO MORE THAN 3 TOTAL Pt reports he hasn't taken in years SACUBITRIL 24MG/VALSARTAN 26MG TAB 120 1 (2) 1 BID FOR HEART FAILURE (AM, PM) SEMAGLUTIDE 0.5MG/0.375ML INJ PEN 1.5M 1 021 (5) INJECT 0.25MG SQ EVERY WEEK FOR 4 WEEKS, THEN I NJECT 0.5MG EVERY WEEK FOR DIABETES -MULTIPLE DOSES P ER PEN Pt takes on ; reports he has had thre e doses of the 0.25mg dose VITAMIN B COMPLEX CAP 100 01/24/2021 (2) 1 QDAY FOR NUTRITION (AM) The following prescriptions have expir ed ASPIRIN 81MG EC TAB 120 08/19/2020 (2) ONE EVERY DAY (AM) : 03/16/2021 KETOTIFEN 0.025% OPH SOLN 5 12/06/2019 (2) 1 DROP IN BOTH EYES TWICE A DAY : 11/16/2020 Pt not using The following are Non-VA medica tions MARINE LIPID (FISH OIL) CAP,ORAL QDAY (AM) (360M G-1200MG Dose) ASCORBIC ACID 500MG TAB 1000MG EVERY DAY (AM) CATS CLAW 500MG TAB - TWO QDAY (PM) MULTIVITAMINS CAP/TAB QDAY MAGNESIUM OXIDE 240MG TAB QDAY (PM) VITAMIN D3 5000 UNITS (125MCG) TAB QDAY (PM) CINNAMON 500MG TAB QDAY (AM) VITAMIN A (UNKNOWN STRENGTH) Reported by patient, however, [facility] does not hav e documentation of Vit A Discontinued Medications: NOT on [facility] Med List* * BUDESONIDE 80/FORMOTER 4.5MCG 120D INH (D/C'd ) INHALE 2 PUFFS BY INHALATION TWICE A DAY *RINSE MOUTH AFTER USING. LOSARTAN 50MG TAB (D/C'd 01/15/21) TAKE ONE-HALF TABLET BY MOUTH EVERY DAY FOR BLOO D PRESSURE, FOR HEART //////////////////////////////////////////////////////////////////////////////// Consider the following inpatient medications whe n reviewing list above to complete medication reconciliation: Active Inpatient Medications (including Supplies ): Active Inpatient Medications Status 1) SALINE FLUSH INJ 10ML IV Q8H AFTER EACH USE, MINIMUM ACTIVE OF EVERY SHIFT. Pending Inpatient Medications Status 1) ALBUTEROL INHL,ORAL 2 PUFFS INHL QID PRN PEND ING 2) APIXABAN TAB,ORAL 5MG PO Q12H PENDING 3) ASPIRIN TAB,EC 81MG PO QDAY PENDING 4) ATORVASTATIN TAB 40MG PO QHS PENDING 5) DIGOXIN TAB 0.125MG PO QDAY PENDING 6) EMPAGLIFLOZIN TAB,ORAL 25MG PO QDAY PENDING 7) FLUTICASONE/SALMETEROL INHL,ORAL 1 PUFF FLUTI YUVAL PENDING 230/SALMET 21 MCG INHL Q12H 8) FUROSEMIDE TAB 40MG PO QDAY PENDING 9) GABAPENTIN CAP,ORAL 600MG PO TID PENDING 10) METOPROLOL SUCCINATE TAB,SA 37.5MG PO QDAY P ENDING 11 Total Medications /es/ SJ Kristin MILLER Pharmacist Signed: 03/20/2021 13:22 Receipt Acknowledged By: * AWAITING SIGNATURE * RODO PINTO
--- OUTSIDE RECORDS SUMMARY | 2022-04-02 16:03 | XMS_ITS | Encounter Summary ---
:1945 [address] Department [facility] Address [address] [place] [address] Support Name Relationship Address Phone NIDIA MICHELE Unavailable [address] [place] [phone] NIDIA MICHELE Unavailable [address] [place] [phone] Insurance Providers: All historical and current Section [...] MEDICARE MEDICARE PART Jun 25, PART B [id number] Saumya QUINONES PATIENT (WNR) (M) B 2011 78A 0 AVID MEDICARE MEDICARE PART Sep 25, PART A [id number] Saumya QUINONES PATIENT (WNR) (M) A 2009 78A 0 AVID MEDICARE MEDICARE PART Sep 25, PART A [id number] Saumya MICHELE (WNR) (M) A 2009 [id number] [id number] AVID MEDICARE MEDICARE PART Sep 25, PART B [id number] Saumya MICHELE (WNR) (M) B 2009 [id number] AVID Selected Encounter This section includes the information on record at [place] for the Encounter. Date/Time Encounter Type Encounter Reason Provider Source Description Mar 28, 2021 12:01 Outpatient TELEPHONE PRIMARY SKAGGSCARROLL PM Encounter CARE IHE Encounter Template Text not used by [facility] Plan of Treatment: Future Appointments (+ 6 [...] 20 appointments. The data comes from all [place] treatment facilities. Appointment Date/Time Appointment Type Appointment Facili ty Name Apr 02, 2021 01:13 PM AMBULATORY - MEDICINE [facility] May 08, 2021 02:00 PM AMBULATORY - NONE [facility] Jun 13, 2021 02:00 PM AMBULATORY - NONE [facility] Jun 18, 2021 12:45 PM AMBULATORY - [facility] Jun 18, 2021 01:30 PM AMBULATORY - MEDICINE [facility] Jun 20, 2021 10:00 AM AMBULATORY - MEDICINE [facility] Jul 11, 2021 01:00 PM AMBULATORY - NONE [facility] Jul 26, 2021 09:00 AM AMBULATORY - MEDICINE [facility] Jul 26, 2021 10:30 AM AMBULATORY - [facility] Aug 03, 2021 10:46 AM AMBULATORY - MEDICINE [facility] Aug 08, 2021 07:00 AM AMBULATORY - [facility] Aug 10, 2021 10:30 AM AMBULATORY - [facility] Sep 14, 2021 09:00 AM AMBULATORY - NONE [facility] Sep 21, 2021 09:45 AM AMBULATORY - MEDICINE [facility] Sep 21, 2021 10:00 AM AMBULATORY - MEDICINE [facility] Sep 21, 2021 10:30 AM AMBULATORY - MEDICINE [facility] Sep 21, 2021 11:00 AM AMBULATORY - MEDICINE [facility] Sep 21, 2021 11:30 AM AMBULATORY - MEDICINE [facility] Lab Results: +/- 30 days of the encounter This section includes the Chemistry and Hematology Lab Results on record with [place] for the patient. Radiology Reports and Pathology Reports are provided separately, in subsequent sections.Lab Results This section contains the Chemistry/Hematology Results that were resulted 30 days before or 30 daysafter the date of the Encounter. Date/Time Source Result Type Result - Unit Interpretation Reference Range Comment Mar 23, 2021 09:57 AM [facility] POTASSIUM Specim en Type: PLASMA No comment enter ed. Ordering Provid er: RODO PINTO Report Released Date/Time: Mar 23, 2021 09:33 AM Reporting Lab: [facility] [address] [facility] [place] [address] Performing Lab: [facility] [address] [facility] [address] POTASSIUM 4.6 3.5-5.1 Mar 23, 2021 06:48 AM [facility] MAGNESIUM Specim en Type: PLASMA No comment enter ed. Ordering Provid er: RODO PINTO Report Released Date/Time: Mar 22, 2021 10:19 AM Reporting Lab: [facility] [address] [facility] [address] Performing Lab: [facility] [address] [facility] [address] MAGNESIUM 2.2 1.6-2.6 Mar 23, 2021 06:48 [facility] BASIC METABOLIC Specimen Type: PLASMA AM PANEL+MG Comment: Cancel lation Called to: Dora Mae MSA 03/23/2021 @ 3010 by AEK. 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 Ordering Provid er: RODO PINTO Report Released Date/Time: Mar 22, 2021 10:19 AM Reporting Lab: [facility] [address] [facility] [address] Performing Lab: [facility] [address] [facility] [address] CREATININE 1.3 H 0.7-1.2 UREA NITROGEN 25 8-26 GLUCOSE 170 H 74-100 SODIUM 139 136-145 POTASSIUM canc 3.5-5.1 CHLORIDE 109 H 98-107 CO2 23 22-29 CALCIUM 9.0 8.4-10.2 MAGNESIUM 2.2 1.6-2.6 ANION GAP 7 5-15 ESTIMATED GFR(eGFR) 54 L >60 Mar 23, 2021 06:13 [facility] FINGERSTICK GLUCOSE Speci men Type: BLOOD AM Comment: Abram rock Nurse Notified Ordering Provid er: GRANT,CARD II Report Released Date/Time: Mar 23, 2021 07:07 AM Reporting Lab: [facility] [address] [facility] [address] Performing Lab: [facility] [address] [facility] [address] FINGERSTICK GLUCOSE 168 H 70-100 Mar 22, 2021 08:30 [facility] FINGERSTICK GLUCOSE Speci men Type: BLOOD PM Comment: VENOUS SAMPLE Ordering Provid er: TEAM,CARD II Report Released Date/Time: Mar 23, 2021 08:23 AM Reporting Lab: [facility] [address] [facility] [address] Performing Lab: [facility] [address] [facility] [place] [address] FINGERSTICK GLUCOSE 240 H 70-100 Mar 22, 2021 04:28 [facility] FINGERSTICK GLUCOSE Speci men Type: BLOOD PM Comment: [place] rock Nurse Notified Ordering Provid er: TEAM,CARD II Report Released Date/Time: Mar 22, 2021 04:42 PM Reporting Lab: [facility] [address] [facility] [place] [address] Performing Lab: [facility] [address] [facility] [place] [address] FING[place]ICK GLUCOSE 197 H 70-100 Mar 22, 2021 11:28 [facility] F[place] GLUCOSE Speci men Type: BLOOD AM Comment: Abram Welch Notified Ordering Provid er: GRANTCARD II Report Released Date/Time: Mar 22, 2021 12:14 PM Reporting Lab: [facility] [address] [facility] [place] [address] Performing Lab: [facility] [address] [facility] [place] [address] FING[place]ICK GLUCOSE 225 H 70-100 Mar 22, 2021 06:13 [facility] FINGERSTICK GLUCOSE Speci men Type: BLOOD AM Comment: Abram Welch Notified Ordering Provid er: GRANTCARD II Report Released Date/Time: Mar 22, 2021 12:13 PM Reporting Lab: [facility] [address] [facility] [place] [address] Performing Lab: [facility] [address] [facility] [place] [address] F[place] GLUCOSE 155 H 70-100 Mar 21, 2021 07:36 [facility] F[place]ER[place]ICK GLUCOSE Speci men Type: BLOOD PM Comment: [place]am rock Nurse Notified Ordering Provid er: TEAM,CARD II Report Released Date/Time: Mar 21, 2021 08:53 PM Reporting Lab: [facility] [address] [facility] [place] [address] Performing Lab: [facility] [address] [facility] [place] [address] FINGERSTICK GLUCOSE 214 H 70-100 Mar 21, 2021 04:00 [facility] FINGERSTICK GLUCOSE Speci men Type: BLOOD PM Comment: Abram Welch Notified Ordering Provid er: GRANTCARD II Report Released Date/Time: Mar 21, 2021 04:27 PM Reporting Lab: [facility] [address] [facility] [address] Performing Lab: [facility] [address] [facility] [address] FINGERSTICK GLUCOSE 252 H 70-100 Mar 21, 2021 11:43 [facility] FINGERSTICK GLUCOSE Speci men Type: BLOOD AM Comment: [place] Nurse Notified Ordering Provid er: TEAM,CARD II Report Released Date/Time: Mar 21, 2021 12:08 PM Reporting Lab: [facility] [address] [facility] [address] Performing Lab: [facility] [address] [facility] [address] FINGERSTICK GLUCOSE 227 H 70-100 Mar 21, 2021 06:45 AM [facility] ALBUMIN Specim en Type: PLASMA No comment enter ed. Ordering Provid er: LISBET WASHINGTON V Report Released Date/Time: Mar 20, 2021 10:27 AM Reporting Lab: [facility] [address] [facility] [address] Performing Lab: [facility] [address] ALBUMIN 3.5 3.5-5.2 Mar 21, 2021 06:45 [facility] BASIC METABOLIC Specimen Type: PLASMA AM PANEL+MG No comment enter ed. Ordering Provid er: RODO PINTO Report Released Date/Time: Mar 20, 2021 02:43 PM Reporting Lab: [facility] [address] [facility] [address] Performing Lab: [facility] [address] [facility] [address] CREATININE 1.5 H 0.7-1.2 UREA NITROGEN 26 8-26 GLUCOSE 207 H 74-100 SODIUM 140 136-145 POTASSIUM 4.4 3.5-5.1 CHLORIDE 109 H 98-107 CO2 24 22-29 CALCIUM 9.0 8.4-10.2 MAGNESIUM 2.3 1.6-2.6 ANION GAP 7 5-15 ESTIMATED GFR(eGFR) 46 L >60 Mar 21, 2021 06:38 [facility] FINGERSTICK GLUCOSE Speci men Type: BLOOD AM Comment: [place] Nurse Notified Ordering Provid er: GRANT,CARD II Report Released Date/Time: Mar 21, 2021 07:23 AM Reporting Lab: [facility] [address] [facility] [address] Performing Lab: [facility] [address] [facility] [address] FINGERSTICK GLUCOSE 159 H 70-100 Mar 20, 2021 08:27 [facility] FINGERSTICK GLUCOSE Speci men Type: BLOOD PM Comment: [place] Nurse Notified Ordering Provid er: DARLYN BURNS II Report Released Date/Time: Mar 20, 2021 10:52 PM Reporting Lab: [facility] [address] [facility] [address] Performing Lab: [facility] [address] [facility] [address] FINGER[place]ICK GLUCOSE 224 H 70-100 Mar 20, 2021 05:06 [facility] FINGERSTICK GLUCOSE Speci men Type: BLOOD PM Comment: [place] Nurse Notified Ordering Provid er: GRANT,CARD II Report Released Date/Time: Mar 20, 2021 05:27 PM Reporting Lab: [facility] [address] [facility] [address] Performing Lab: [facility] [address] [place] GLUCOSE 183 H 70-100 Mar 20, 2021 08:16 [facility] COVID-19 DIAGNOSTIC Speci men Type: NASOPHARYNGEAL AM PANEL (CEPHEID) Comment: Wiley samuel GeneXpert (618) Ordering Provid er: TUCKER JULIAN Report Released Date/Time: Mar 15, 2021 02:20 PM Reporting Lab: [facility] [address] [facility] [address] Performing Lab: [facility] [address] COVID-19 (CEPHEID) Not Detected Not Dete cted Mar 20, 2021 08:16 [facility] BASIC METABOLIC Specimen Type: PLASMA AM PANEL+MG No comment enter ed. Ordering Provid er: TUCKER JULIAN Report Released Date/Time: Mar 15, 2021 02:20 PM Reporting Lab: [facility] [address] [facility] [address] Performing Lab: [facility] [address] [facility] [address] CREATININE 1.6 H 0.7-1.2 UREA NITROGEN 31 H 8-26 GLUCOSE 216 H 74-100 SODIUM 142 136-145 POTASSIUM 4.6 3.5-5.1 CHLORIDE 106 98-107 CO2 25 22-29 CALCIUM 9.3 8.4-10.2 MAGNESIUM 2.2 1.6-2.6 ANION GAP 11 5-15 ESTIMATED GFR(eGFR) 43 L >60 Mar 05, 2021 09:42 [facility] BASIC METABOLIC Specimen Type: PLASMA AM PANEL+MG No comment enter ed. Ordering Provid er: VICENTE PELAEZ Report Released Date/Time: Feb 19, 2021 01:50 PM Reporting Lab: [facility] [address] [facility] [place] [address] Performing Lab: [facility] [address] [facility] [place] [address] CREATININE 1.4 H 0.7-1.2 UREA NITROGEN 22 8-26 GLUCOSE 241 H 74-100 SODIUM 139 136-145 POTASSIUM 4.6 3.5-5.1 CHLORIDE 105 98-107 CO2 24 22-29 CALCIUM 9.1 8.4-10.2 MAGNESIUM 2.1 1.6-2.6 ANION GAP 10 5-15 ESTIMATED GFR(eGFR) 50 L >60 Social History: Smoking Status (Most current) and Tobacco Use (All prior to encounter date) This section includes the most current, and the historical, smoking and tobacco-related health factors from the [place] facility where the Encounter took place.Current Smoking Status This section includes the most current smoking, or tobacco-related health factor, from the [place] facility where the Encounter took place. Date/Time Current Smoking Status Comment Facility Mar 20, 2021 11:21 AM [facility] TOBACCO USE CURRENT NRT [facility] DECLINE Tobacco Use History This section includes a history of the smoking, or tobacco- related health factors, that were collected on or before the date of the Encounter. The data comes from the [place] facility where the Encounter took place. 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 [facility] Nov 15, 2020 10:00 AM VA-TOBACCO USE MED NO [place] [facility] Nov 15, 2020 10:00 AM VA-TOBACCO USER EVERY DAY [facility] Jun 21, 2019 02:29 PM VA-TOBACCO USE 30 YEARS OR MORE [facility] Jun 21, 2019 02:29 PM [facility] Jun 21, 2019 02:29 PM VA-TOBACCO USE POLICY CHANGE CLERK NO [facility] Jun 21, 2019 02:29 PM [facility] Jun 21, 2019 02:29 PM VA-TOBACCO USE [place] 30 MIN OF WAKEUP [facility] Jun 21, 2019 02:29 PM VA-TOBACCO USER EVERY DAY [facility] Jun 09, 2018 03:48 PM VA-TOBACCO USE 30 YEARS OR MORE [facility] Jun 09, 2018 03:48 PM [facility] Jun 09, 2018 03:48 PM VA-TOBACCO USE POLICY CHANGE CLERK NO [facility] Jun 09, 2018 03:48 PM VA-TOBACCO USE MED NO [facility] Jun 09, 2018 03:48 PM VA-TOBACCO USE [place] 30 MIN OF WAKEUP [facility] Jun 09, 2018 03:48 PM VA-TOBACCO USER EVERY DAY [facility] Jun 20, 2017 07:53 AM CURRENT TOBACCO USER [facility] Jun 19, 2016 08:41 AM CURRENT TOBACCO USER [facility] Jun 21, 2015 08:15 AM CURRENT TOBACCO USER [facility] Mar 22, 2014 10:03 AM CURRENT TOBACCO USER [facility] Mar 25, 2013 11:01 AM CURRENT TOBACCO USER [facility] Feb 05, 2012 08:55 AM CURRENT TOBACCO USER [facility] January 01, 2011 09:26 AM CURRENT TOBACCO USER [facility] Mar 07, 2010 10:02 AM CURRENT TOBACCO USER [facility] Feb 21, 2009 08:17 AM CURRENT TOBACCO USER [facility] Nov 06, 2007 10:02 AM CURRENT TOBACCO USER [facility] January 02, 2007 10:33 AM CURRENT TOBACCO USER [facility] Advance Directives: All historical and current Section Date Range: From patient's date of to the date document was created. This section includes ALL of a patient's completed or amended [place] Advance and Rescinded Directives. The entries below indicate that a directive exists for the patient, but an actual copy is not included with this document. The data comes from all [place] facilities. Date Advance Directives Provider Source Mar 06, 2005 ADVANCE DIRECTIVE GANESH RODRIGUEZ [facility] Encounter Notes: All associated encounter notes This section contains the clinical notes associated to the Encounter. Date/Time Encounter Note(s) Provider Source Mar 28, 2021 12:01 PM REPORT OF CONTACT: EMERSON SKAGGS [facility] LOCAL TITLE: PATIENT CONTACT NOTE STANDARD TITLE: REPORT OF CONTACT DATE OF NOTE: MAR 28, 2021@12:01 ENTRY DATE: MAR 28, 2021@12:01:20 AUTHOR: EMERSON SKAGGS EXP COSIGNER: URGENCY: STATUS: COMPLETED PATIENT CONTACT NOTE Has ADDENDA Patient contact Name of [place]: PAUL MICHELE Date & Time of Contact: Mar@12:01 Type of Contact: Telephone Reason for Contact: First attempt to contact pat ient re: hospital d/c. Will make another attempt to reach patient. /eb SKAGGS RN REGISTERED NURSE Signed: 03/28/2021 12:03 03/28/2021 ADDENDUM STATUS: COMPLETED Second attempt to contact patient re: hospital d /c. left message with [facility] number if patient wants to call. /eb SKAGGS RN REGISTERED NURSE Signed: 03/28/2021 15:07
--- OUTSIDE RECORDS SUMMARY | 2022-04-02 16:03 | XMS_ITS | Encounter Summary ---
:1945 Author Organization [facility] Address [address] [place], [place] [address] Care Team Providers Name Role Phone WILLA [...] MEDICARE MEDICARE PART Jun 25, PART B [id number] Saumya QUINONES PATIENT (WNR) (M) B 2011 78A 0 AVID MEDICARE MEDICARE PART Sep 25, PART A [id number] Saumya QUINONES PATIENT (WNR) (M) A 2009 78A 0 AVID MEDICARE MEDICARE PART Sep 25, PART A [id number] Saumya MICHELE (WNR) (M) A 2009 78A [phone] AVID MEDICARE MEDICARE PART Sep 25, PART B [id number] Saumya MICHELE ATTHOMAS (WNR) (M) B 2009 [id number] [id number] AVID Selected Encounter This section includes the information on record at [place] for the Encounter. Date/Time Encounter Type Encounter Description Reason Provider Source Mar 23, 2021 02:03 Outpatient Encounter CLINICAL PHARMACY PM IHE Encounter Template Text not used by [place] Plan of Treatment: Future Appointments (+ 6 months) and Future Tests (+/- 45 days) The Plan of Treatment section includes future care activities for the patient [facility] This section includes future appointments and future orders which are active, pending orscheduled.Future Appointments This section includes appointments that were scheduled to occur 6 months from the date of the Encounter, up to a maximum of 20 appointments. The data comes from all [place] treatment facilities. Appointment Date/Time Appointment Type Appointment Facili ty Name Mar 26, 2021 09:00 AM AMBULATORY - NONE [facility] Apr 02, 2021 01:13 PM AMBULATORY - MEDICINE [facility] May 08, 2021 02:00 PM AMBULATORY - NONE [facility] Jun 13, 2021 02:00 PM AMBULATORY - NONE [facility] Jun 18, 2021 12:45 PM AMBULATORY - [facility] Jun 18, 2021 01:30 PM AMBULATORY - MEDICINE [facility] Jun 20, 2021 10:00 AM AMBULATORY - MEDICINE [facility] Jul 11, 2021 01:00 PM AMBULATORY - [facility] Jul 26, 2021 09:00 AM AMBULATORY - MEDICINE [facility] Jul 26, 2021 10:30 AM AMBULATORY - [facility] Aug 03, 2021 10:46 AM AMBULATORY - MEDICINE [facility] Aug 08, 2021 07:00 AM AMBULATORY - NONE [facility] Aug 10, 2021 10:30 AM AMBULATORY - [facility] Sep 14, 2021 09:00 AM AMBULATORY - [facility] Sep 21, 2021 09:45 AM AMBULATORY - MEDICINE [facility] Sep 21, 2021 10:00 AM AMBULATORY - MEDICINE [facility] Sep 21, 2021 10:30 AM AMBULATORY - MEDICINE [facility] Sep 21, 2021 11:00 AM AMBULATORY - MEDICINE [facility] Sep 21, 2021 11:30 AM AMBULATORY - MEDICINE [facility] Lab Results: +/- 30 days of the encounter This section includes the Chemistry and Hematology Lab Results on record with [place] for the patient. Radiology Reports and Pathology Reports are provided separately, in subsequent sections.Lab Results This section contains the Chemistry/Hematology Results that were resulted 30 days before or 30 daysafter the date of the Encounter. Date/Time Source Result Type Result - Unit Interpretation Reference Range Comment Mar 23, 2021 09:57 AM [facility] POTASSIUM Specim en Type: PLASMA No comment enter ed. Ordering Provid er: VELANGI,RODO S Report Released Date/Time: Mar 23, 2021 09:33 AM Reporting Lab: [facility] [address] [facility] [address] Performing Lab: [facility] [address] [facility] [address] POTASSIUM 4.6 mmol/L 3.5-5.1 Mar 23, 2021 06:48 [facility] BASIC METABOLIC Specimen Type: PLASMA AM PANEL+MG Comment: Cancel lation Called to: Dora Mae MSA 03/23/2021 @ 0930 by AEK. 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 Ordering Provid er: RODO PINTO Report Released Date/Time: Mar 22, 2021 10:19 AM Reporting Lab: [facility] [address] [facility] [address] Performing Lab: [facility] [address] [facility] [address] CREATININE 1.3 mg/dL H 0.7-1.2 UREA NITROGEN 25 mg/dL 8-26 GLUCOSE 170 mg/dL H 74-100 SODIUM 139 mmol/L 136-145 POTASSIUM canc mmol/L 3.5-5.1 CHLORIDE 109 mmol/L H 98-107 CO2 23 mmol/L 22-29 CALCIUM 9.0 mg/dL 8.4-10.2 MAGNESIUM 2.2 mg/dL 1.6-2.6 ANION GAP 7 mmol/L 5-15 ESTIMATED GFR(eGFR) 54 L >60 Mar 23, 2021 06:48 AM [facility] MAGNESIUM Specim en Type: PLASMA No comment enter ed. Ordering Provid er: RODO PINTO Report Released Date/Time: Mar 22, 2021 10:19 AM Reporting Lab: [facility] [address] [facility] [address] Performing Lab: [facility] [address] [facility] [address] MAGNESIUM 2.2 mg/dL 1.6-2.6 Mar 23, 2021 06:13 [facility] [place] GLUCOSE Speci men Type: BLOOD AM Comment: [place] Nurse Notified Ordering Provid er: TEAM,CARD II Report Released Date/Time: Mar 23, 2021 07:07 AM Reporting Lab: [facility] [address] [facility] [address] Performing Lab: [facility] [address] [facility] [address] FINGERSTICK GLUCOSE 168 mg/dL H 70-100 Mar 22, 2021 08:30 [facility] [place] GLUCOSE Speci men Type: BLOOD PM Comment: VENOUS SAMPLE Ordering Provid er: DARLYN BURNS II Report Released Date/Time: Mar 23, 2021 08:23 AM Reporting Lab: [facility] [address] [facility] [address] Performing Lab: [facility] [address] [facility] [address] F[place]ICK GLUCOSE 240 mg/dL H 70-100 Mar 22, 2021 04:28 [facility] [place] GLUCOSE Speci men Type: BLOOD PM Comment: [place] Nurse Notified Ordering Provid er: GRANTCARD II Report Released Date/Time: Mar 22, 2021 04:42 PM Reporting Lab: [facility] [address] [facility] [address] Performing Lab: [facility] [address] [facility] [address] FING[place]ICK GLUCOSE 197 mg/dL H 70-100 Mar 22, 2021 11:28 [facility] [place] GLUCOSE Speci men Type: BLOOD AM Comment: [place] Nurse Notified Ordering Provid er: GRANTCARD II Report Released Date/Time: Mar 22, 2021 12:14 PM Reporting Lab: [facility] [address] [facility] [address] Performing Lab: [facility] [address] [facility] [address] [place] GLUCOSE 225 mg/dL H 70-100 Mar 22, 2021 06:13 [facility] [place] GLUCOSE Speci men Type: BLOOD AM Comment: [place] Nurse Notified Ordering Provid er: GRANTCARD II Report Released Date/Time: Mar 22, 2021 12:13 PM Reporting Lab: [facility] [address] [facility] [address] Performing Lab: [facility] [address] [facility] [address] [place] GLUCOSE 155 mg/dL H 70-100 Mar 21, 2021 07:36 [facility] [place] GLUCOSE Speci men Type: BLOOD PM Comment: [place] Nurse Notified Ordering Provid er: GRANTCARD II Report Released Date/Time: Mar 21, 2021 08:53 PM Reporting Lab: [facility] [address] [facility] [address] Performing Lab: [facility] [address] [facility] [address] F[place] GLUCOSE 214 mg/dL H 70-100 Mar 21, 2021 04:00 [facility] [place] GLUCOSE Speci men Type: BLOOD PM Comment: [place] Nurse Notified Ordering Provid er: DARLYN BURNS II Report Released Date/Time: Mar 21, 2021 04:27 PM Reporting Lab: [facility] [address] [facility] [address] Performing Lab: [facility] [address] [facility] [address] FINGERSTICK GLUCOSE 252 mg/dL H 70-100 Mar 21, 2021 11:43 [facility] [place] GLUCOSE Speci men Type: BLOOD AM Comment: [place] Nurse Notified Ordering Provid er: DARLYN BURNS II Report Released Date/Time: Mar 21, 2021 12:08 PM Reporting Lab: [facility] [address] [facility] [address] Performing Lab: [facility] [address] [facility] [address] [place] GLUCOSE 227 mg/dL H 70-100 Mar 21, 2021 06:45 AM [facility] ALBUMIN Specim en Type: PLASMA No comment enter ed. Ordering Provid er: LISBET WASHINGTON V Report Released Date/Time: Mar 20, 2021 10:27 AM Reporting Lab: [facility] [address] [facility] [address] Performing Lab: [facility] [address] [facility] [address] ALBUMIN 3.5 g/dL 3.5-5.2 Mar 21, 2021 06:45 [facility] BASIC METABOLIC Specimen Type: PLASMA AM PANEL+MG No comment enter ed. Ordering Provid er: RODO PINTO Report Released Date/Time: Mar 20, 2021 02:43 PM Reporting Lab: [facility] [address] [facility] [address] Performing Lab: [facility] [address] [facility] [address] CREATININE 1.5 mg/dL H 0.7-1.2 UREA NITROGEN 26 mg/dL 8-26 GLUCOSE 207 mg/dL H 74-100 SODIUM 140 mmol/L 136-145 POTASSIUM 4.4 mmol/L 3.5-5.1 CHLORIDE 109 mmol/L H 98-107 CO2 24 mmol/L 22-29 CALCIUM 9.0 mg/dL 8.4-10.2 MAGNESIUM 2.3 mg/dL 1.6-2.6 ANION GAP 7 mmol/L 5-15 ESTIMATED GFR(eGFR) 46 L >60 Mar 21, 2021 06:38 [facility] [place] GLUCOSE Speci men Type: BLOOD AM Comment: [place] Nurse Notified Ordering Provid er: TEAM,CARD II Report Released Date/Time: Mar 21, 2021 07:23 AM Reporting [facility] [address] Performing Lab: [facility] [address] [place] GLUCOSE 159 mg/dL H 70-100 Mar 20, 2021 08:27 [facility] [place] GLUCOSE Speci men Type: BLOOD PM Comment: [place] Nurse Notified Ordering Provid er: GRANT,CARD II Report Released Date/Time: Mar 20, 2021 10:52 PM Reporting Lab: [facility] [address] Performing Lab: [facility] [address] [place] GLUCOSE 224 mg/dL H 70-100 Mar 20, 2021 05:06 [facility] [place] GLUCOSE Speci men Type: BLOOD PM Comment: [place] Nurse Notified Ordering Provid er: GRANT,CARD II Report Released Date/Time: Mar 20, 2021 05:27 PM Reporting Lab: [facility] [address] Performing Lab: [facility] [address] [place] GLUCOSE 183 mg/dL H 70-100 Mar 20, 2021 08:16 [facility] BASIC METABOLIC Specimen Type: PLASMA AM PANEL+MG No comment enter ed. Ordering Provid er: TUCKER JULIAN Report Released Date/Time: Mar 15, 2021 02:20 PM Reporting Lab[facility] [address] Performing Lab: [facility] [address] CREATININE 1.6 mg/dL H 0.7-1.2 UREA NITROGEN 31 mg/dL H 8-26 GLUCOSE 216 mg/dL H 74-100 SODIUM 142 mmol/L 136-145 POTASSIUM 4.6 mmol/L 3.5-5.1 CHLORIDE 106 mmol/L 98-107 CO2 25 mmol/L 22-29 CALCIUM 9.3 mg/dL 8.4-10.2 MAGNESIUM 2.2 mg/dL 1.6-2.6 ANION GAP 11 mmol/L 5-15 ESTIMATED GFR(eGFR) 43 L >60 Mar 20, 2021 08:16 [facility] COVID-19 DIAGNOSTIC Speci men Type: NASOPHARYNGEAL AM PANEL (CEPHEID) Comment: Wiley samuel GeneXpert ([id number]) Ordering Provid er: TUCKER JULIAN Report Released Date/Time: Mar 15, 2021 02:20 PM Reporting Lab: [facility] [address] Performing Lab: [facility] [address] COVID-19 (CEPHEID) Not Detected Not Dete cted Mar 05, 2021 09:42 [facility] BASIC METABOLIC Specimen Type: PLASMA AM PANEL+MG No comment enter ed. Ordering Provid er: VICENTE PELAEZ Report Released Date/Time: Feb 19, 2021 01:50 PM Reporting Lab: [facility] [address] Performing Lab: [facility] [address] CREATININE 1.4 mg/dL H 0.7-1.2 UREA NITROGEN 22 mg/dL 8-26 GLUCOSE 241 mg/dL H 74-100 SODIUM 139 mmol/L 136-145 POTASSIUM 4.6 mmol/L 3.5-5.1 CHLORIDE 105 mmol/L 98-107 CO2 24 mmol/L 22-29 CALCIUM 9.1 mg/dL 8.4-10.2 MAGNESIUM 2.1 mg/dL 1.6-2.6 ANION GAP 10 mmol/L 5-15 ESTIMATED GFR(eGFR) 50 L >60 Vital Signs: All taken on the encounter date This section contains inpatient and outpatient Vital Signs collected on the date of the Encounter. Date/Time Temperature Pulse Blood Respiratory SP02 Pain Height Weight Axel dy Source Pressure Rate Mass Index Mar 23, 98.2 F 73 118/82 18 /min 92 % 0 [place] 2020 08:45 /min mm[Hg] [facility] Social History: Smoking Status (Most current) and Tobacco Use (All prior to encounter date) This section includes the most current, and the historical, smoking and tobacco-related health factors from the [place] facility where the Encounter took place.Current Smoking Status This section includes the most current smoking, or tobacco-related health factor, from the [place] facility where the Encounter took place. Date/Time Current Smoking Status Comment Facility Mar 20, 2021 11:21 AM VA-VAAES TOBACCO USE CURRENT NRT [facility] DECLINE Tobacco Use History This section includes a history of the smoking, or tobacco- related health factors, that were collected on or before the date of the Encounter. The data comes from the [place] facility where the Encounter took place. Date/Time Smoking Status/Tobacco Use Comment [facility] it Nov 15, 2020 10:00 AM VA-TOBACCO DOESNT USE WI 30 MIN [facility] WAKEUP Nov 15, 2020 10:00 AM VA-TOBACCO USE 30 YEARS OR MORE [facility] Nov 15, 2020 10:00 AM VA-TOBACCO USE ADVICE [place] [facility] Nov 15, 2020 10:00 AM VA-TOBACCO USE REHAB DIRECTOR NO [facility] Nov 15, 2020 10:00 AM VA-TOBACCO USE MED NO [place] [facility] Nov 15, 2020 10:00 AM VA-TOBACCO USER EVERY DAY [facility] Jun 21, 2019 02:29 PM VA-TOBACCO USE 30 YEARS OR MORE [facility] Jun 21, 2019 02:29 PM VA-TOBACCO USE ADVICE [place] [facility] Jun 21, 2019 02:29 PM VA-TOBACCO USE REHAB DIRECTOR NO [facility] Jun 21, 2019 02:29 PM VA-TOBACCO USE MED NO [place] [facility] Jun 21, 2019 02:29 PM VA-TOBACCO USE WI 30 MIN OF WAKEUP [facility] Jun 21, 2019 02:29 PM VA-TOBACCO USER EVERY DAY [facility] Jun 09, 2018 03:48 PM VA-TOBACCO USE 30 YEARS OR MORE [facility] Jun 09, 2018 03:48 PM VA-TOBACCO USE ADVICE [place] [facility] Jun 09, 2018 03:48 PM VA-TOBACCO USE REHAB DIRECTOR NO [facility] Jun 09, 2018 03:48 PM VA-TOBACCO USE MED NO [place] [facility] Jun 09, 2018 03:48 PM VA-TOBACCO USE [place] 30 MIN OF WAKEUP [facility] Jun 09, 2018 03:48 PM VA-TOBACCO USER EVERY DAY [facility] Jun 20, 2017 07:53 AM CURRENT TOBACCO USER [facility] Jun 19, 2016 08:41 AM CURRENT TOBACCO USER [facility] Jun 21, 2015 08:15 AM CURRENT TOBACCO USER [facility] Mar 22, 2014 10:03 AM CURRENT TOBACCO USER [facility] Mar 25, 2013 11:01 AM CURRENT TOBACCO USER [facility] Feb 05, 2012 08:55 AM CURRENT TOBACCO USER [facility] January 01, 2011 09:26 AM CURRENT TOBACCO USER [facility] Mar 07, 2010 10:02 AM CURRENT TOBACCO USER [facility] Feb 21, 2009 08:17 AM CURRENT TOBACCO USER [facility] Nov 06, 2007 10:02 AM CURRENT TOBACCO USER [facility] January 02, 2007 10:33 AM CURRENT TOBACCO USER [facility] Advance Directives: All historical and current Section Date Range: From patient's date of to the date document was created. This section includes ALL of a patient's completed or amended [place] Advance and Rescinded Directives. The entries below indicate that a directive exists for the patient, but an actual copy is not included with this document. The data comes from all [place] facilities. Date Advance Directives Provider Source Mar 06, 2005 ADVANCE DIRECTIVE GANESH RODRIGUEZ [facility] Encounter Notes: All associated encounter notes This section contains the clinical notes associated to the Encounter. Date/Time Encounter Note(s) Provider Source Mar 23, 2021 02:03 PM PHARMACY EDUCATION NOTE: SJ MILLER [facility] LOCAL TITLE: EDUCATION PHARMACY MED INSTRUCTION /RECONCILIATION STANDARD TITLE: PHARMACY EDUCATION NOTE DATE OF NOTE: MAR 23, 2021@14:03 ENTRY DATE: MAR 23, 2021@14:03:37 AUTHOR: SJ MILLER EXP COSIGNER: URGENCY: STATUS: COMPLETED MEDICATION DISCHARGE EDUCATION LEARNING NEEDS/OBJECTIVES Participant(s) indicates readiness to learn and has been instructed on indications, side effects, direct ions for use and given a list of medications. Participant(s) charlene l receive medication information sheets for medications filled. Education included discussion of the following: --- The following medication is NEW: - Dofetilide - Heart Rhythm Control The following medications were STOPPED: - Digoxin o Permanently discontinued; do not take any long er - Sacubitril/Valsartan o Temporarily discontinued; your primary care provider will re-asses your kidney function at follow-up to determine if you should re-start or switch to a different medication. Tobacco Cessation Discharge Plan Patient declined tobacco cessation medications and follow up services at discharge. Source of Info: [facility] Drug Last Refills Rx # Qty Filled Remaining ACCU-CHEK GUIDE (GLUCOSE) TEST STRIP [id number] 50 02/15/2021 (2) 1 STRIP FOR TESTING TWICE WEEKLY TO CHECK BLOOD SUGAR--USE WITHIN 3 MINUTES OF REMOVING FROM CONTAINER TEST AT DI FFERENT TIMES OF THE DAY OR DIRECTED Provider: SAKSHI CROUCH ALBUTEROL 90MCG (CFC-F) 200D ORAL INHL [id number] 12/21/2020 (7) INHALE 2 PUFFS BY INHALATION FOUR TIMES A DAY A S NEEDED FOR SHORTNESS OF BREATH *SHAKE WELL* (FOR IMMEDIATE RELIEF) Provider: SAKSHI CROUCH APIXABAN 5MG TAB [id number] 60 02/22/2021 (10) TAKE ONE TABLET BY MOUTH EVERY 12 HOURS TO PREV ENT BLOOD CLOTS, STROKE Provider: MEGHAN GARDNER ATORVASTATIN CALCIUM 80MG TAB [id number] 45 11/30/2020 (3) TAKE ONE-HALF TABLET BY MOUTH AT BEDTIME FOR CH OLESTEROL Provider: SAKSHI CROUCH DOFETILIDE 250MCG CAP [id number] 180 (0) TAKE ONE CAPSULE BY MOUTH TWICE A DAY FOR HEART RHYTHM CONTROL Provider: RODO PINTO EMPAGLIFLOZIN 25MG TAB [id number] 60 03/15/2021 (2) TAKE ONE TABLET BY MOUTH EVERY DAY Provider: SAKSHI CROUCH FLUTICASONE 230/SALMET 21MCG 120D INHL [id number] 04/07/2021 (3) INHALE 1 PUFF BY INHALATION EVERY 12 HOURS RINS E MOUTH AFTER EACH USE; REPLACES SYMBICORT Provider: SAKSHI CROUCH FUROSEMIDE 40MG TAB [id number] 90 01/15/2021 (1) TAKE ONE TABLET BY MOUTH EVERY DAY Provider: MARY FIGUEROA GABAPENTIN 300MG CAP [id number] 360 01/31/2021 (3) TAKE TWO CAPSULES BY MOUTH THREE TIMES A DAY FO R LEG PAIN Provider: SAKSHI CROUCH GLIPIZIDE 10MG TAB [id number] 360 01/19/2021 (2) TAKE TWO TABLETS BY MOUTH TWICE A DAY TAKE 3 0 MINUTES BEFORE MEAL FOR DIABETES Provider: SAKSHI CROUCH METFORMIN HCL 1000MG TAB [id number] 180 01/31/2021 (3) TAKE ONE TABLET BY MOUTH TWO TIMES A DAY FOR DI ABETES Provider: SAKSHI CROUCH METOPROLOL SUCCINATE 25MG SA TAB [id number] 135 01/31/2021 (3) TAKE ONE AND ONE-HALF TABLETS BY MOUTH EVERY DA Y FOR HEART Provider: SAKSHI CROUCH NITROGLYCERIN 0.4MG SL TAB [id number] 100 11/16/2020 (3) DISSOLVE ONE TABLET UNDER THE TONGUE ONCE FOR C HEST PAIN * MAY REPEAT EVERY 5 MINUTES--NO MORE THAN 3 TOTAL Provider: SAKSHI CROUCH SACUBITRIL 24MG/VALSARTAN 26MG TAB [id number] 120 02/20/2021 (2) TAKE 1 TABLET BY MOUTH TWICE A DAY FOR HEART FA ILURE Provider: VICENTE PELAEZ Please do NOT take this medication any longer. You will be given further directions at your follow-up appointment with pr imary care. SEMAGLUTIDE 0.5MG/0.375ML INJ PEN 1.5ML [id number] 02/22/2021 (5) INJECT 0.25MG UNDER THE SKIN EVERY WEEK FOR 4 W EEKS, THEN INJECT 0.5MG EVERY WEEK FOR DIABETES -MULTIPLE DOSES PER PEN Provider: JAYY SAMS You reported taking on Friday, next dose due VITAMIN B COMPLEX CAP [id number] 01/24/2021 (2) TAKE 1 CAPSULE BY MOUTH EVERY DAY FOR NUTRITION Provider: SAKSHI CROUCH The following medications rodríguez ve that you were still taking. When a refill is needed, please contact the prescriber for a r enewal. ASPIRIN 81MG EC TAB 120 08/19/2020 (2) ONE TABLET EVERY DAY : 03/16/2021 RX[facility] - Non VA Meds (max 6 months) MARINE LIPID (FISH OIL) CAP,ORAL DAILY ASCORBIC ACID 500MG TAB 1000MG EVERY DAY CATS CLAW 2 TABS EVERY DAY MULTIVITAMINS CAP/TAB EVERY DAY VITAMIN D3 5000 UNITS EVERY DAY CINNAMON 500MG TAB EVERY DAY VITAMIN A EVERY DAY PARTICIPANTS: Patient TEACHING STRATEGY: Face to Face, Medication inf ormation sheets and list of medications READINESS TO LEARN No barriers identified PATIENT/FAMILY RESPONSE (OUTCOME): Verbalizes c ritical information about the topic FOLLOW-UP RECOMMENDED: As directed by discharging provider /billy/ SJ MILLER Pharmacist Signed: 03/23/2021 14:07 Receipt Acknowledged By: * AWAITING SIGNATURE * RODO PINTO
--- OUTSIDE RECORDS SUMMARY | 2022-04-02 16:03 | XMS_ITS | Encounter Summary ---
:1945 Author Organization Department [facility] Address [address] [place] [id number] Care Team Providers Name Role Phone SAKSHI CROUCH Primary Care Provider Unavailable Insurance Providers: All [...] MEDICARE MEDICARE PART Jun 25, PART B [id number] Saumya QUINONES PATIENT (WNR) (M) B 2011 78A 0 AVID MEDICARE MEDICARE PART Sep 25, PART A [id number] Saumya QUINONES PATIENT (WNR) (M) A 2009 78A 0 AVID MEDICARE MEDICARE PART Sep 25, PART A [id number] Saumya MICHELE (WNR) (M) A 2009 78A [id number] AVID MEDICARE MEDICARE PART Sep 25, PART B [id number] Saumya MICHELE ATTHOMAS (WNR) (M) B 2009 78A [phone] AVID Selected Encounter This section includes the information on record at [place] for the Encounter. Date/Time Encounter Type Encounter Reason Provider Source Description Apr 02, 2021 OFFICE O/P EST CIED DEVICES ICD-10-CM Z95.810 Alan NAVA 09:12 AM MINIMAL PROB Presence of K automatic (implantable) cardiac defibrillator with Provider Comments: Cardiac defibrillator in situ ([facility] [id number]) IHE Encounter Template Text not used by [facility] Assessments - Encounter Diagnoses This section includes the primary and secondary diagnoses documented for the Encounter. 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 This section includes future appointments and future orders which are active, pending orscheduled.Future Appointments This section includes appointments that were scheduled to occur 6 months from the date of the Encounter, up to a maximum of 20 appointments. The data comes from all [place] treatment facilities. Appointment Date/Time Appointment Type Appointment Facili ty Name May 08, 2021 02:00 PM AMBULATORY - NONE [facility] Jun 13, 2021 02:00 PM AMBULATORY - NONE [facility] Jun 18, 2021 12:45 PM AMBULATORY - NONE [facility] Jun 18, 2021 01:30 PM AMBULATORY - MEDICINE [facility] Jun 20, 2021 10:00 AM AMBULATORY - MEDICINE [facility] Jul 11, 2021 01:00 PM AMBULATORY - NONE [facility] Jul 26, 2021 09:00 AM AMBULATORY - MEDICINE [facility] Jul 26, 2021 10:30 AM AMBULATORY - NONE [facility] Aug 03, 2021 10:46 AM AMBULATORY - MEDICINE [facility] Aug 08, 2021 07:00 AM AMBULATORY - NONE [facility] Aug 10, 2021 10:30 AM AMBULATORY - NONE [facility] Sep 14, 2021 09:00 AM AMBULATORY - NONE [facility] Sep 21, 2021 09:45 AM AMBULATORY - MEDICINE [facility] Sep 21, 2021 10:00 AM AMBULATORY - MEDICINE [facility] Sep 21, 2021 10:30 AM AMBULATORY - MEDICINE [facility] Sep 21, 2021 11:00 AM AMBULATORY - MEDICINE [facility] Sep 21, 2021 11:30 AM AMBULATORY - MEDICINE [facility] Lab Results: +/- 30 days of the encounter This section includes the Chemistry and Hematology Lab Results on record with [place] for the patient. Radiology Reports and Pathology Reports are provided separately, in subsequent sections.Lab Results This section contains the Chemistry/Hematology Results that were resulted 30 days before or 30 daysafter the date of the Encounter. Date/Time Source Result Type Result - Unit Interpretation Reference Range Comment Mar 23, 2021 09:57 AM [facility] POTASSIUM Specim en Type: PLASMA No comment enter ed. Ordering Provid er: RODO PINTO Report Released Date/Time: Mar 23, 2021 09:33 AM Reporting Lab: [facility] [address] [address] Performing Lab: [facility] [address] POTASSIUM 4.6 mmol/L 3.5-5.1 Mar 23, 2021 06:48 [facility] BASIC METABOLIC Specimen Type: PLASMA AM PANEL+MG Comment: Cancel lation Called to: Dora Mae MSA 03/23/2021 @ 0930 by AEK. 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 Ordering Provid er: RODO PINTO Report Released Date/Time: Mar 22, 2021 10:19 AM Reporting Lab: [facility] [address] Performing Lab: [facility] [address] CREATININE 1.3 mg/dL H 0.7-1.2 UREA NITROGEN 25 mg/dL 8-26 GLUCOSE 170 mg/dL H 74-100 SODIUM 139 mmol/L 136-145 POTASSIUM canc mmol/L 3.5-5.1 CHLORIDE 109 mmol/L H 98-107 CO2 23 mmol/L 22-29 CALCIUM 9.0 mg/dL 8.4-10.2 MAGNESIUM 2.2 mg/dL 1.6-2.6 ANION GAP 7 mmol/L 5-15 ESTIMATED GFR(eGFR) 54 L >60 Mar 23, 2021 06:48 AM [facility] MAGNESIUM Specim en Type: PLASMA No comment enter ed. Ordering Provid er: RODO PINTO Report Released Date/Time: Mar 22, 2021 10:19 AM [facility] [address] Per[facility] [address] MAGNESIUM 2.2 mg/dL 1.6-2.6 Mar 23, 2021 06:13 [facility] FINGER[place]ICK GLUCOSE Speci men Type: BLOOD AM Comment: [place] Nurse Notified Ordering Provid er: GRANTCARD II Report Released Date/Time: Mar 23, 2021 07:07 AM Reporting Lab: [facility] [address] [facility] [address] Performing Lab: [facility] [address] [facility] [address] [place] GLUCOSE 168 mg/dL H 70-100 Mar 22, 2021 08:30 [facility] [place] GLUCOSE Speci men Type: BLOOD PM Comment: VENOUS SAMPLE Ordering Provid er: GRANTCARD II Report Released Date/Time: Mar 23, 2021 08:23 AM Reporting Lab: [facility] [address] [facility] [address] Performing Lab: [facility] [address] [facility] [address] [place] GLUCOSE 240 mg/dL H 70-100 Mar 22, 2021 04:28 [facility] [place] GLUCOSE Speci men Type: BLOOD PM Comment: [place] Nurse Notified Ordering Provid er: GRANTCARD II Report Released Date/Time: Mar 22, 2021 04:42 PM Reporting Lab: [facility] [address] [facility] [address] Performing Lab: [facility] [address] [facility] [address] [place] GLUCOSE 197 mg/dL H 70-100 Mar 22, 2021 11:28 [facility] [place] GLUCOSE Speci men Type: BLOOD AM Comment: [place] Nurse Notified Ordering Provid er: GRANTCARD II Report Released Date/Time: Mar 22, 2021 12:14 PM Reporting Lab: [facility] [address] [facility] [address] Performing Lab: [facility] [address] [facility] [address] [place] GLUCOSE 225 mg/dL H 70-100 Mar 22, 2021 06:13 [facility] [place] GLUCOSE Speci men Type: BLOOD AM Comment: [place] Nurse Notified Ordering Provid er: GRANT,CARD II Report Released Date/Time: Mar 22, 2021 12:13 PM Reporting Lab: [facility] [address] [facility] [address] Performing Lab: [facility] [address] [facility] [address] [place] GLUCOSE 155 mg/dL H 70-100 Mar 21, 2021 07:36 [facility] [place] GLUCOSE Speci men Type: BLOOD PM Comment: [place] Nurse Notified Ordering Provid er: TEAM,CARD II Report Released Date/Time: Mar 21, 2021 08:53 PM Reporting Lab: [facility] [address] [facility] [address] Performing Lab: [facility] [address] [facility] [address] [place] GLUCOSE 214 mg/dL H 70-100 Mar 21, 2021 04:00 [facility] [place] GLUCOSE Speci men Type: BLOOD PM Comment: [place] Nurse Notified Ordering Provid er: GRANT,CARD II Report Released Date/Time: Mar 21, 2021 04:27 PM Reporting Lab: [facility] [address] [facility] [address] Performing Lab: [facility] [address] [facility] [address] [place] GLUCOSE 252 mg/dL H 70-100 Mar 21, 2021 11:43 [facility] [place] GLUCOSE Speci men Type: BLOOD AM Comment: [place] Nurse Notified Ordering Provid er: TEAM,CARD II Report Released Date/Time: Mar 21, 2021 12:08 PM Reporting Lab: [facility] [address] [facility] [address] Performing Lab: [facility] [address] [facility] [address] [place] GLUCOSE 227 mg/dL H 70-100 Mar 21, 2021 06:45 AM [facility] ALBUMIN Specim en Type: PLASMA No comment enter ed. Ordering Provid er: LISBET WASHINTGON V Report Released Date/Time: Mar 20, 2021 10:27 AM Reporting Lab: [facility] [address] [facility] [address] Performing Lab: [facility] [address] [facility] [address] ALBUMIN 3.5 g/dL 3.5-5.2 Mar 21, 2021 06:45 [facility] BASIC METABOLIC Specimen Type: PLASMA AM PANEL+MG No comment enter ed. Ordering Provid er: RODO PINTO Report Released Date/Time: Mar 20, 2021 02:43 PM Reporting Lab: [facility] [address] [facility] [address] Performing Lab: [facility] [address] [facility] [address] CREATININE 1.5 mg/dL H 0.7-1.2 UREA NITROGEN 26 mg/dL 8-26 GLUCOSE 207 mg/dL H 74-100 SODIUM 140 mmol/L 136-145 POTASSIUM 4.4 mmol/L 3.5-5.1 CHLORIDE 109 mmol/L H 98-107 CO2 24 mmol/L 22-29 CALCIUM 9.0 mg/dL 8.4-10.2 MAGNESIUM 2.3 mg/dL 1.6-2.6 ANION GAP 7 mmol/L 5-15 ESTIMATED GFR(eGFR) 46 L >60 Mar 21, 2021 06:38 [facility] [place] GLUCOSE Speci men Type: BLOOD AM Comment: [place] Nurse Notified Ordering Provid er: TEAM,CARD II Report Released Date/Time: Mar 21, 2021 07:23 AM Reporting Lab: [facility] [address] [facility] [address] [place] GLUCOSE 159 mg/dL H 70-100 Mar 20, 2021 08:27 [facility] [place] GLUCOSE Speci men Type: BLOOD PM Comment: [place] Nurse Notified Ordering Provid er: TEAM,CARD II Report Released Date/Time: Mar 20, 2021 10:52 PM Reporting Lab: [facility] [address] [facility] [address] Performing Lab: [facility] [address] [place] GLUCOSE 224 mg/dL H 70-100 Mar 20, 2021 05:06 [facility] [place] GLUCOSE Speci men Type: BLOOD PM Comment: [place] Nurse Notified Ordering Provid er: TEAM,CARD II Report Released Date/Time: Mar 20, 2021 05:27 PM Reporting [facility] [address] Performing Lab: [facility] [address] [place] GLUCOSE 183 mg/dL H 70-100 Mar 20, 2021 08:16 [facility] BASIC METABOLIC Specimen Type: PLASMA AM PANEL+MG No comment enter ed. Ordering Provid er: GLAUSER,TUCKER N Report Released Date/Time: Mar 15, 2021 02:20 PM Reporting Lab: [facility] [address] Performing Lab: [facility] [address] CREATININE 1.6 mg/dL H 0.7-1.2 UREA NITROGEN 31 mg/dL H 8-26 GLUCOSE 216 mg/dL H 74-100 SODIUM 142 mmol/L 136-145 POTASSIUM 4.6 mmol/L 3.5-5.1 CHLORIDE 106 mmol/L 98-107 CO2 25 mmol/L 22-29 CALCIUM 9.3 mg/dL 8.4-10.2 MAGNESIUM 2.2 mg/dL 1.6-2.6 ANION GAP 11 mmol/L 5-15 ESTIMATED GFR(eGFR) 43 L >60 Mar 20, 2021 08:16 [facility] COVID-19 DIAGNOSTIC Speci men Type: NASOPHARYNGEAL AM PANEL (CEPHEID) Comment: Cephei d GeneXpert (618) Ordering Provid er: TUCKER JULIAN Report Released Date/Time: Mar 15, 2021 02:20 PM Reporting Lab: [facility] [address] Performing Lab: [facility] [address] COVID-19 (CEPHEID) Not Detected Not Dete cted Mar 05, 2021 09:42 [facility] BASIC METABOLIC Specimen Type: PLASMA AM PANEL+MG No comment enter ed. Ordering Provid er: VICENTE PELAEZ Report Released Date/Time: Feb 19, 2021 01:50 PM Reporting Lab: [facility] [address] Performing Lab: [facility] [address] CREATININE 1.4 mg/dL H 0.7-1.2 UREA NITROGEN 22 mg/dL 8-26 GLUCOSE 241 mg/dL H 74-100 SODIUM 139 mmol/L 136-145 POTASSIUM 4.6 mmol/L 3.5-5.1 CHLORIDE 105 mmol/L 98-107 CO2 24 mmol/L 22-29 CALCIUM 9.1 mg/dL 8.4-10.2 MAGNESIUM 2.1 mg/dL 1.6-2.6 ANION GAP 10 mmol/L 5-15 ESTIMATED GFR(eGFR) 50 L >60 Social History: Smoking Status (Most current) and Tobacco Use (All prior to encounter date) This section includes the most current, and the historical, smoking and tobacco-related health factors from the [place] facility where the Encounter took place.Current Smoking Status This section includes the most current smoking, or tobacco-related health factor, from the [place] facility where the Encounter took place. Date/Time Current Smoking Status Comment Facility Mar 20, 2021 11:21 AM [facility] TOBACCO USE CURRENT NRT [facility] DECLINE Tobacco Use History This section includes a history of the smoking, or tobacco- related health factors, that were collected on or before the date of the Encounter. The data comes from the [place] facility where the Encounter took place. 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 [facility] Nov 15, 2020 10:00 AM VA-TOBACCO USE MED NO [place] [facility] Nov 15, 2020 10:00 AM VA-TOBACCO USER EVERY DAY [facility] Jun 21, 2019 02:29 PM VA-TOBACCO USE 30 YEARS OR MORE [facility] Jun 21, 2019 02:29 PM VA-TOBACCO USE ADVICE [place] [facility] Jun 21, 2019 02:29 PM 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 [facility] Jun 21, 2019 02:29 PM VA-TOBACCO USE MED NO [place] [facility] Jun 21, 2019 02:29 PM VA-TOBACCO USE WI 30 MIN OF WAKEUP [facility] Jun 21, 2019 02:29 PM VA-TOBACCO USER EVERY DAY [facility] Jun 09, 2018 03:48 PM VA-TOBACCO USE 30 YEARS OR MORE [facility] Jun 09, 2018 03:48 PM VA-TOBACCO USE ADVICE [place] [facility] Jun 09, 2018 03:48 PM 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 [facility] Jun 09, 2018 03:48 PM VA-TOBACCO USE MED NO [place] [facility] Jun 09, 2018 03:48 PM VA-TOBACCO USE [place] 30 MIN OF WAKEUP [facility] Jun 09, 2018 03:48 PM VA-TOBACCO USER EVERY DAY [facility] Jun 20, 2017 07:53 AM CURRENT TOBACCO USER [facility] Jun 19, 2016 08:41 AM CURRENT TOBACCO USER [facility] Jun 21, 2015 08:15 AM CURRENT TOBACCO USER [facility] Mar 22, 2014 10:03 AM CURRENT TOBACCO USER [facility] Mar 25, 2013 11:01 AM CURRENT TOBACCO USER [facility] Feb 05, 2012 08:55 AM CURRENT TOBACCO USER [facility] January 01, 2011 09:26 AM CURRENT TOBACCO USER [facility] Mar 07, 2010 10:02 AM CURRENT TOBACCO USER [facility] Feb 21, 2009 08:17 AM CURRENT TOBACCO USER [facility] Nov 06, 2007 10:02 AM CURRENT TOBACCO USER [facility] January 02, 2007 10:33 AM CURRENT TOBACCO USER [facility] Advance Directives: All historical and current Section Date Range: From patient's date of to the date document was created. This section includes ALL of a patient's completed or amended [place] Advance and Rescinded Directives. The entries below indicate that a directive exists for the patient, but an actual copy is not included with this document. The data comes from all [place] facilities. Date Advance Directives Provider Source Mar 06, 2005 ADVANCE DIRECTIVE MICHAELGANESH [facility] Encounter Notes: All associated encounter notes This section contains the clinical notes associated to the Encounter. Date/Time Encounter Note(s) Provider Source Apr 02, 2021 09:12 CARDIOLOGY DIAGNOSTIC STUDY NOTE: ZACARIAS NAVA RA [facility] AM LOCAL TITLE: CARDIOLOGY ELECTROPHYSIOLOGY NOTE STANDARD TITLE: CARDIOLOGY DIAGNOSTIC STUDY NOTE DATE OF NOTE: APR 02, 2021@09:12 ENTRY DATE: APR 02, 2021@09:12:40 AUTHOR: BHARATI NAVA EXP COSIGNER: URGENCY: STATUS: COMPLETED CARDIOLOGY ELECTROPHYSIOLOGY NOTE Has ADDEN DA Patient's Medtronic single chamber ICD checked v ia [employer]. Indication: ICM w/ LVEF <35%; CHF NYHA Class II [facility] ([facility]) comments: 1 VF, shock successful. Battery Voltage at 2.63 V, alert not yet triggered. [facility]'s comments: Episode #106 recorded in VF zone 03/30/2021 @ 1725 with successful delivery of shock. Episode #105 recorded at the same time as a non- sustained high rate episode. Two NSVT episodes recorded the same day, both at 0938, appearing to show the same episode. Spoke with pt @ 0905 who was not aware of shock, but reported feeling dizzy and waking up on the floor. Pt shared he thought he had passed out. He reports feeling fine after thinking he had passe d out, and feeling fine now. Pt denied missing any meds, and denied any other illness. He denied any other symptoms, including fluid retention, and reported being ab le to sleep flat and no breathing issues. Sent message via [employer] to EP Betina Brooks and SHIPPING LEAD PERSON to inform that that consult would be placed. Instructed by DEMETRIS YOUNG to instead discuss with Dr. Phillips as he just had pt loaded with dofetilide. Report available via [employer]. Active Outpatient Medications (including Supplie s): Active Outpatient Medications Status 1) ACCU-CHEK GUIDE (GLUCOSE) TEST STRIP 1 STRIP FOR ACTIVE TESTING TWICE WEEKLY TO CHECK BLOOD SUGAR--USE WITHIN 3 MINUTES OF REMOVING FROM CONTAINER T EST AT DIFFERENT TIMES OF THE DAY OR DIRECTED 2) ALBUTEROL 90MCG (CFC-F) 200D ORAL INHL INHALE 2 PUFFS ACTIVE BY INHALATION FOUR TIMES A DAY NEEDED FOR SHORTNESS OF BREATH *SHAKE WELL* (FOR IMMEDIATE RELIEF) 3) APIXABAN 5MG TAB TAKE ONE TABLET BY MOUTH SAMI RY 12 ACTIVE (S) HOURS TO PREVENT BLOOD CLOTS, STROKE 4) ATORVASTATIN CALCIUM 80MG TAB TAKE ONE-HALF T ABLET BY ACTIVE (S) MOUTH AT BEDTIME FOR CHOLESTEROL 5) DOFETILIDE 250MCG CAP TAKE ONE CAPSULE BY FLORY TH TWICE ACTIVE A DAY FOR HEART RHYTHM CONTROL 6) EMPAGLIFLOZIN 25MG TAB TAKE ONE TABLET BY FLORY TH EVERY ACTIVE DAY 7) FLUTICASONE 230/SALMET 21MCG 120D INHL INHALE 1 PUFF ACTIVE (S) BY INHALATION EVERY 12 HOURS RINSE MOUTH AFTER EACH USE; REPLACES SYMBICORT 8) FUROSEMIDE 40MG TAB TAKE ONE TABLET BY MOUTH EVERY ACTIVE DAY 9) GABAPENTIN 300MG CAP TAKE TWO CAPSULES BY FLORY TH THREE ACTIVE TIMES A DAY FOR LEG PAIN 10) GLIPIZIDE 10MG TAB TAKE TWO TABLETS BY MOUTH TWICE A ACTIVE (S) DAY TAKE 30 MINUTES BEFORE MEAL FOR DIABETES 11) METFORMIN HCL 1000MG TAB TAKE ONE TABLET BY MOUTH TWO ACTIVE TIMES A DAY FOR DIABETES 12) METOPROLOL SUCCINATE 25MG SA TAB TAKE ONE AN D ACTIVE ONE-HALF TABLETS BY MOUTH EVERY DAY FOR HEART 13) NITROGLYCERIN 0.4MG SL TAB DISSOLVE ONE TABL ET UNDER ACTIVE THE TONGUE ONCE FOR CHEST PAIN * MAY REPEAT SAMI RY 5 MINUTES--NO MORE THAN 3 TOTAL 14) SACUBITRIL 24MG/VALSARTAN 26MG TAB TAKE 1 TA BLET BY ACTIVE MOUTH TWICE A DAY FOR HEART FAILURE 15) SEMAGLUTIDE 0.5MG/0.375ML INJ PEN 1.5ML INJE CT 0.25MG ACTIVE UNDER THE SKIN EVERY WEEK FOR 4 WEEKS, THEN INJ ECT 0.5MG EVERY WEEK FOR DIABETES -MULTIPLE DOSES P ER PEN 16) VITAMIN B COMPLEX CAP TAKE 1 CAPSULE BY MOUT H EVERY ACTIVE DAY FOR NUTRITION Active Non-VA Medications Status 1) Non-VA ASCORBIC ACID 500MG TAB 1000MG EVERY D AY ACTIVE 2) Non-VA MARINE LIPID (FISH OIL) CAP,ORAL MOUTH ACTIVE 3) Non-VA MULTIVITAMINS CAP/TAB MOUTH ACTIVE 4) Non-VA NON VA MED NOT LISTED MISCELLANEOUS CA TS CLAW ACTIVE MOUTH 20 Total Medications Next Remote: 05/04/2021 (ongoing monitoring) Next EP device: 06/26/2021 /billy/ JOE DENG, RN REGISTERED NURSE Signed: 04/02/2021 10:59 Receipt Acknowledged By: 04/24/2021 16:43 /es/ KATHERINE AYON MD STAFF PHYSICIAN - CARDIAC BACK PADDER 04/02/2021 12:34 /es/ JOSSELYN HERNANDEZ MD ENGLISH LANGUAGE ARTS TEACHER/CARLOS VAZQUEZ 04/02/2021 ADDENDUM STATUS: COMPLETED Communicated w/ Dr. Phillips via RN in EP lab; instruct ed to review w/ Dr. Hernandez. Printed episode and brought to Dr. Hernandez, who is now co-signed to note as well, and communicated brief overview. 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 Called patient, he notes lig htheadedness and syncope at time of ICD shock. Since that time notes feels well with no reoccurrence of syncope or further ICD shocks. No chest pain or SOB. No weight gain or orthopnea. Discussed with Dr. Figueroa. Will stop dofetilide (which was started ~ 2 weeks ago for AF), as there is concern VT is related to dofetilide. He will take toprol XL 50 mg daily and will co-sign E P dancing master to assist with setting him up for PVI/possible PVC ablation. The patient is agreeable to this plan. /billy/ JOSSELYN HERNANDEZ MD ENGLISH LANGUAGE ARTS TEACHER/ED GEORGE Signed: 04/02/2021 15:19 Receipt Acknowledged By: 04/24/2021 16:43 /billy/ KATHERINE AYON MD STAFF PHYSICIAN - CARDIAC BACK PADDER * AWAITING SIGNATURE * FEI AGUILAR 04/03/2021 ADDENDUM STATUS: COMPLETED Recent admission for dofetilide load as noted. D C note mentions entresto was held due to rise in creatini ne but creatinine at discharge was back to baseline. Decision to restart entresto or change to ACEI w as deferred to me. Since CHF clinic started entresto I think I would defer to them. Creatinine already baseline at discharge so not sure why another SM A7 needed to decide that. /es/ SAKSHI CROUCH MD STAFF PHYSICIAN Signed: 04/03/2021 17:41 Receipt Acknowledged By: 04/04/2021 07:01 /billy/ EDITH GONSALEZ, RN CHF Clinical Nurse Coordinator 04/24/2021 ADDENDUM STATUS: COMPLETED Possible it looks like proarrhythmia, agree with stopping Dofetilide. /billy/ KATHERINE FIGUEROA MD STAFF PHYSICIAN - CARDIAC BACK PADDER Signed: 04/24/2021 16:45
--- OUTSIDE RECORDS SUMMARY | 2022-04-02 16:03 | XMS_ITS | Encounter Summary ---
:1945 Author Organization [facility] Address [address] [place], [place] [id number] Care Team Providers Name Role Phone WILLA [...] MEDICARE MEDICARE PART Jun 25, PART B [id number] Saumya QUINONES PATIENT (WNR) (M) B 2011 78A 0 AVID MEDICARE MEDICARE PART Sep 25, PART A [id number] Saumya QUINONES PATIENT (WNR) (M) A 2009 78A 0 AVID MEDICARE MEDICARE PART Sep 25, PART A [id number] Saumya MICHELE (WNR) (M) A 2009 [id number] [id number] AVID MEDICARE MEDICARE PART Sep 25, PART B [id number] Saumya MICHELE ATTHOMAS (WNR) (M) B 2009 [id number] AVID Selected Encounter This section includes the information on record at [place] for the Encounter. Date/Time Encounter Type Encounter Reason Provider Source Description Mar 20, 2021 ELECTROCARDIOGRAM EKG ICD-10-CM Z13.6 HERMANN LYNN 08:30 AM COMPLETE Encounter for EL screening for cardiovascular disorders with Provider Comments: Encounter for Screening for Cardiovascular Disorders IHE Encounter Template Text not used by [place] Assessments - Encounter Diagnoses This section includes the primary and secondary diagnoses documented for the Encounter. Date/Time Primary/Secondary Diagnosis Name Provider Source Diagnosis Mar 28, 2021 PRIMARY Encounter for MELVIN RODRIGUES [facility] 01:28 PM screening for [facility] cardiovascular disorders Plan of Treatment: Future Appointments (+ 6 months) and Future Tests (+/- 45 days) The Plan of Treatment section includes future care activities for the patient from all [place] treatmentfacilities. This section includes future appointments and future orders which are active, pending orscheduled.Future Appointments This section includes appointments that were scheduled to occur 6 months from the date of the Encounter, up to a maximum of 20 appointments. The data comes from all [place] treatment facilities. Appointment Date/Time Appointment Type Appointment Facili ty Name Mar 22, 2021 06:26 PM AMBULATORY - MEDICINE [facility] Mar 23, 2021 02:30 PM AMBULATORY - MEDICINE [facility] Mar 23, 2021 03:00 PM AMBULATORY - MEDICINE [facility] Mar 26, 2021 09:00 AM AMBULATORY - NONE [facility] Apr 02, 2021 01:13 PM AMBULATORY - MEDICINE [facility] May 08, 2021 02:00 PM AMBULATORY - NONE [facility] Jun 13, 2021 02:00 PM AMBULATORY - NONE [facility] Jun 18, 2021 12:45 PM AMBULATORY - NONE [facility] Jun 18, 2021 01:30 PM AMBULATORY - MEDICINE [facility] Jun 20, 2021 10:00 AM AMBULATORY - MEDICINE [facility] Jul 11, 2021 01:00 PM AMBULATORY - NONE [facility] Jul 26, 2021 09:00 AM AMBULATORY - MEDICINE [facility] Jul 26, 2021 10:30 AM AMBULATORY - NONE [facility] Aug 03, 2021 10:46 AM AMBULATORY - MEDICINE [facility] Aug 08, 2021 07:00 AM AMBULATORY - NONE [facility] Aug 10, 2021 10:30 AM AMBULATORY - NONE [facility] Sep 14, 2021 09:00 AM AMBULATORY - NONE [facility] Lab Results: +/- 30 days [...] Range Comment Mar 23, 2021 09:[address] [facility] POTASSIUM Specim en Type: PLASMA No comment enter ed. Ordering Provid er: RODO PINTO Report Released Date/Time: Mar 23, 2021 09:33 AM Reporting Lab: [facility] [address] [facility] [address] Performing Lab: [facility] [address] [facility] [address] POTASSIUM 4.6 mmol/L 3.5-5.1 Mar 23, 2021 06:48 [facility] BASIC METABOLIC Specimen Type: PLASMA AM PANEL+MG Comment: Cancel lation Called to: Dora Mae MSA 03/23/2021 @ 0930 by AEK. 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 Ordering Provid er: RODO PINTO Report Released Date/Time: Mar 22, 2021 10:19 AM Reporting Lab: [facility] [address] [facility] [address] Performing Lab: [facility] [address] [facility] [address] CREATININE 1.3 mg/dL H 0.7-1.2 UREA NITROGEN 25 mg/dL 8-26 GLUCOSE 170 mg/dL H 74-100 SODIUM 139 mmol/L 136-145 POTASSIUM canc mmol/L 3.5-5.1 CHLORIDE 109 mmol/L H 98-107 CO2 23 mmol/L 22-29 CALCIUM 9.0 mg/dL 8.4-10.2 MAGNESIUM 2.2 mg/dL 1.6-2.6 ANION GAP 7 mmol/L 5-15 ESTIMATED GFR(eGFR) 54 L >60 Mar 23, 2021 06:[address] [facility] MAGNESIUM Specim en Type: PLASMA No comment enter ed. Ordering Provid er: RODO PINTO Report Released Date/Time: Mar 22, 2021 10:19 AM Reporting Lab: [facility] [address] [facility] [address] Performing Lab: [facility] [address] [facility] [address] MAGNESIUM 2.2 mg/dL 1.6-2.6 Mar 23, 2021 06:13 [facility] FINGERSTICK GLUCOSE Speci men Type: BLOOD AM Comment: Abram rock Nurse Notified Ordering Provid er: GRANT,CARD II Report Released Date/Time: Mar 23, 2021 07:07 AM Reporting Lab: [facility] [address] [facility] [address] Performing Lab: [facility] [address] [facility] [address] FINGERSTICK GLUCOSE 168 mg/dL H 70-100 Mar 22, 2021 08:30 [facility] FINGER[place]ICK GLUCOSE Speci men Type: BLOOD PM Comment: VENOUS SAMPLE Ordering Provid er: DARLYN BURNS II Report Released Date/Time: Mar 23, 2021 08:23 AM Reporting Lab: [facility] [address] [facility] [address] Performing Lab: [facility] [address] [facility] [address] FINGERSTICK GLUCOSE 240 mg/dL H 70-100 Mar 22, 2021 04:28 [facility] F[place]ER[place]ICK GLUCOSE Speci men Type: BLOOD PM Comment: Abram Welch Notified Ordering Provid er: DARLYN BURNS II Report Released Date/Time: Mar 22, 2021 04:42 PM Reporting Lab: [facility] [address] [facility] [address] Performing Lab: [facility] [address] [facility] [address] FINGERSTICK GLUCOSE 197 mg/dL H 70-100 Mar 22, 2021 11:28 [facility] FINGERSTICK GLUCOSE Speci men Type: BLOOD AM Comment: Abram Welch Notified Ordering Provid er: DARLYN BURNS II Report Released Date/Time: Mar 22, 2021 12:14 PM Reporting Lab: [facility] [address] [facility] [address] Performing Lab: [facility] [address] [facility] [address] FINGERSTICK GLUCOSE 225 mg/dL H 70-100 Mar 22, 2021 06:13 [facility] FINGERSTICK GLUCOSE Speci men Type: BLOOD AM Comment: Abram rock Nurse Notified Ordering Provid er: DARLYN BURNS II Report Released Date/Time: Mar 22, 2021 12:13 PM Reporting Lab: [facility] [address] [facility] [address] Performing Lab: [facility] [address] [facility] [address] FINGERSTICK GLUCOSE 155 mg/dL H 70-100 Mar 21, 2021 07:36 [facility] FINGERSTICK GLUCOSE Speci men Type: BLOOD PM Comment: Abram rock Nurse Notified Ordering Provid er: DARLYN BURNS II Report Released Date/Time: Mar 21, 2021 08:53 PM Reporting Lab: [facility] [address] [facility] [address] Performing Lab: [facility] [address] [facility] [address] FINGERSTICK GLUCOSE 214 mg/dL H 70-100 Mar 21, 2021 04:00 [facility] FINGERSTICK GLUCOSE Speci men Type: BLOOD PM Comment: Abram rokc Nurse Notified Ordering Provid er: DARLYN BURNS II Report Released Date/Time: Mar 21, 2021 04:27 PM Reporting Lab: [facility] [address] [facility] [address] Performing Lab: [facility] [address] [facility] [address] FINGERSTICK GLUCOSE 252 mg/dL H 70-100 Mar 21, 2021 11:43 [facility] FINGERSTICK GLUCOSE Speci men Type: BLOOD AM Comment: Abram rock Nurse Notified Ordering Provid er: DARLYN BURNS II Report Released Date/Time: Mar 21, 2021 12:08 PM Reporting Lab: [facility] [address] [facility] [address] Performing Lab: [facility] [address] [facility] [address] FINGERSTICK GLUCOSE 227 mg/dL H 70-100 Mar 21, 2021 06:[address] [facility] ALBUMIN Specim en Type: PLASMA No comment enter ed. Ordering Provid er: LISBET [place] V Report Released Date/Time: Mar 20, 2021 10:27 AM Reporting Lab: [facility] [address] [facility] [address] Performing Lab: [facility] [address] [facility] [address] ALBUMIN 3.5 g/dL 3.5-5.2 Mar 21, 2021 06:45 [facility] BASIC METABOLIC Specimen Type: PLASMA AM PANEL+MG No comment enter ed. Ordering Provid er: RODO PINTO Report Released Date/Time: Mar 20, 2021 02:43 PM Reporting Lab: [facility] [address] [facility] [address] Performing Lab: [facility] [address] [facility] [address] CREATININE 1.5 mg/dL H 0.7-1.2 UREA NITROGEN 26 mg/dL 8-26 GLUCOSE 207 mg/dL H 74-100 SODIUM 140 mmol/L 136-145 POTASSIUM 4.4 mmol/L 3.5-5.1 CHLORIDE 109 mmol/L H 98-107 CO2 24 mmol/L 22-29 CALCIUM 9.0 mg/dL 8.4-10.2 MAGNESIUM 2.3 mg/dL 1.6-2.6 ANION GAP 7 mmol/L 5-15 ESTIMATED GFR(eGFR) 46 L >60 Mar 21, 2021 06:38 [facility] FINGERSTICK GLUCOSE Speci men Type: BLOOD AM Comment: Abram rock Nurse Notified Ordering Provid er: TEAM,CARD II Report Released Date/Time: Mar 21, 2021 07:23 AM Reporting Lab: [facility] [address] [facility] [address] Performing Lab: [facility] [address] [facility] [address] FINGERSTICK GLUCOSE 159 mg/dL H 70-100 Mar 20, 2021 08:27 [facility] FINGERSTICK GLUCOSE Speci men Type: BLOOD PM Comment: Abram rock Nurse Notified Ordering Provid er: TEAM,CARD II Report Released Date/Time: Mar 20, 2021 10:52 PM Reporting Lab: [facility] [address] [facility] [address] Performing Lab: [facility] [address] [facility] [address] FINGERSTICK GLUCOSE 224 mg/dL H 70-100 Mar 20, 2021 05:06 [facility] FINGERSTICK GLUCOSE Speci men Type: BLOOD PM Comment: Abram rock Nurse Notified Ordering Provid er: TEAM,CARD II Report Released Date/Time: Mar 20, 2021 05:27 PM Reporting Lab: [facility] [address] [facility] [address] Performing Lab: [facility] [address] [facility] [address] FINGER[place]ICK GLUCOSE 183 mg/dL H 70-100 Mar 20, 2021 08:16 [facility] BASIC METABOLIC Specimen Type: PLASMA AM PANEL+MG No comment enter ed. Ordering Provid er: TUCKER JULIAN Report Released Date/Time: Mar 15, 2021 02:20 PM Reporting Lab: [facility] [address] [facility] [address] Performing Lab: [facility] [address] [facility] [address] CREATININE 1.6 mg/dL H 0.7-1.2 UREA NITROGEN 31 mg/dL H 8-26 GLUCOSE 216 mg/dL H 74-100 SODIUM 142 mmol/L 136-145 POTASSIUM 4.6 mmol/L 3.5-5.1 CHLORIDE 106 mmol/L 98-107 CO2 25 mmol/L 22-29 CALCIUM 9.3 mg/dL 8.4-10.2 MAGNESIUM 2.2 mg/dL 1.6-2.6 ANION GAP 11 mmol/L 5-15 ESTIMATED GFR(eGFR) 43 L >60 Mar 20, 2021 08:16 [facility] COVID-19 DIAGNOSTIC Speci men Type: NASOPHARYNGEAL AM PANEL (CEPHEID) Comment: Cephei d GeneXpert (618) Ordering Provid er: TUCKER JULIAN Report Released Date/Time: Mar 15, 2021 02:20 PM Reporting Lab: [facility] [address] Performing Lab: [facility] [address] COVID-19 (CEPHEID) Not Detected Not Dete cted Mar 05, 2021 09:42 [facility] BASIC METABOLIC Specimen Type: PLASMA AM PANEL+MG No comment enter ed. Ordering Provid er: VICENTE PELAEZ Report Released Date/Time: Feb 19, 2021 01:50 PM Reporting Lab: [facility] [address] Performing Lab: [facility] [address] CREATININE 1.4 mg/dL H 0.7-1.2 UREA NITROGEN 22 mg/dL 8-26 GLUCOSE 241 mg/dL H 74-100 SODIUM 139 mmol/L 136-145 POTASSIUM 4.6 mmol/L 3.5-5.1 CHLORIDE 105 mmol/L 98-107 CO2 24 mmol/L 22-29 CALCIUM 9.1 mg/dL 8.4-10.2 MAGNESIUM 2.1 mg/dL 1.6-2.6 ANION GAP 10 mmol/L 5-15 ESTIMATED GFR(eGFR) 50 L >60 Feb 19, 2021 12:[address] [facility] AST/SGOT Specim en Type: PLASMA No comment enter ed. Ordering Provid er: SKASHI CROUCH Report Released Date/Time: January 17, 2021 05:13 PM Reporting Lab: [facility] [address] Performing Lab: [facility] [address] [facility] [address] AST/SGOT 28 U/L <34 Feb 19, 2021 12:[address] [facility] ALT/SGPT Specim en Type: PLASMA No comment enter ed. Ordering Provid er: SAKSHI CROUCH Report Released Date/Time: January 17, 2021 05:13 PM Reporting Lab: [facility] [address] [facility] [address] Performing Lab: [facility] [address] [facility] [address] ALT/SGPT 32 U/L <55 Feb 19, 2021 [facility] CREATININE(INCLUDES EGFR) Sp ecimen Type: PLASMA 12:03 PM No comment enter ed. Ordering Provid er: SAKSHI CROUCH Report Released Date/Time: January 17, 2021 05:13 PM Reporting Lab: [facility] [address] [facility] [address] Performing Lab: [facility] [address] [facility] [address] CREATININE 1.4 mg/dL H 0.7-1.2 ESTIMATED GFR(eGFR) 50 L >60 Feb 19, 2021 12:[address] [facility] POTASSIUM Specim en Type: PLASMA No comment enter ed. Ordering Provid er: SAKSHI CROUCH Report Released Date/Time: January 17, 2021 05:13 PM Reporting Lab: [facility] [address] [facility] [address] Performing Lab: [facility] [address] [facility] [address] POTASSIUM 4.2 mmol/L 3.5-5.1 Feb 19, 2021 12:[address] [facility] HEMOGLOBIN A1C Specim en Type: BLOOD No comment enter ed. Ordering Provid er: SAKSHI CROUCH Report Released Date/Time: January 17, 2021 05:13 PM Reporting Lab: [facility] [address] [facility] [address] Performing Lab: [facility] [address] [facility] [address] HEMOGLOBIN A1C 10.0 H 4.0-6.0 Social History: [...] 11:21 AM [facility] TOBACCO USE CURRENT NRT [facility] DECLINE Tobacco Use History This section includes a history of the smoking, or tobacco- related health factors, that were collected on or before the date of the Encounter. The data comes from the [place] facility where the Encounter took place. Date/Time Smoking Status/Tobacco Use Comment [facility] it Nov 15, 2020 10:00 AM VA-TOBACCO DOES[place] USE [place] [address] [facility] WAKEUP Nov 15, 2020 10:00 AM VA-TOBACCO USE [address] 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 Nov 15, 2020 10:00 AM VA-TOBACCO USE MED [place] [facility] Nov 15, 2020 10:00 AM VA-TOBACCO USER EVERY DAY [facility] Jun 21, 2019 02:29 PM VA-TOBACCO USE [address] 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 Jun 21, 2019 02:29 PM VA-TOBACCO USE MED [place] [facility] Jun 21, 2019 02:29 PM VA-TOBACCO USE [place] [address] [facility] Jun 21, 2019 02:29 PM VA-TOBACCO USER EVERY DAY [facility] Jun 09, 2018 03:48 PM VA-TOBACCO USE [address] 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 Jun 09, 2018 03:48 PM VA-TOBACCO USE MED NO [place] [facility] Jun 09, 2018 03:48 PM VA-TOBACCO USE [place] [address] [facility] Jun 09, 2018 03:48 PM VA-TOBACCO USER EVERY DAY [facility] Jun 20, 2017 07:53 AM CURRENT TOBACCO USER [facility] Jun 19, 2016 08:41 AM CURRENT TOBACCO USER [facility] Jun 21, 2015 08:15 AM CURRENT TOBACCO USER [facility] Mar 22, 2014 10:03 AM CURRENT TOBACCO USER [facility] Mar 25, 2013 11:01 AM CURRENT TOBACCO USER [facility] Feb 05, 2012 08:55 AM CURRENT TOBACCO USER [facility] January 01, 2011 09:26 AM CURRENT TOBACCO USER [facility] Mar 07, 2010 10:02 AM CURRENT TOBACCO USER [facility] Feb 21, 2009 08:17 AM CURRENT TOBACCO USER [facility] Nov 06, 2007 10:02 AM CURRENT TOBACCO USER [facility] January 02, 2007 10:33 AM CURRENT TOBACCO USER [facility] Advance Directives: All historical and current [...] Mar 06, 2005 ADVANCE DIRECTIVE GANESH RODRIGUEZ [facility]
--- OUTSIDE RECORDS SUMMARY | 2022-04-02 16:03 | XMS_ITS | Encounter Summary ---
:1945 Author Organization Department [facility] Address [address] [place] [address] Care Team Providers Name Role Phone WILLA [...] MEDICARE MEDICARE PART Jun 25, PART B [id number] Saumya QUINONES PATIENT (WNR) (M) B 2011 78A 0 AVID MEDICARE MEDICARE PART Sep 25, PART A [id number] Saumya QUINONES PATIENT (WNR) (M) A 2009 78A 0 AVID MEDICARE MEDICARE PART Sep 25, PART A [id number] Saumya MICHELE (WNR) (M) A 2009 [id number] [id number] AVID MEDICARE MEDICARE PART Sep 25, PART B [id number] Saumya MICHELE (WNR) (M) B 2009 [id number] [phone] AVID Selected Encounter This section includes the information on record at [place] for the Encounter. Date/Time Encounter Type Encounter Description Reason Provider Source Mar 26, 2021 09:00 Outpatient Encounter TELEPHONE PRIMARY CARE IHE Encounter Template Text not used by [place] Plan of Treatment: Future Appointments (+ 6 months) and Future Tests (+/- 45 days) The Plan of Treatment section includes future care activities for the patient from [facility] This section includes future appointments and future orders which are active, pending orscheduled.Future Appointments This section includes appointments that were scheduled to occur 6 months from the date of the Encounter, up to a maximum of 20 appointments. The data comes from all [place] treatment facilities. Appointment Date/Time Appointment Type Appointment Facili ty Name Apr 02, 2021 01:13 PM AMBULATORY - MEDICINE [facility] May 08, 2021 02:00 PM AMBULATORY - NONE [facility] Jun 13, 2021 02:00 PM AMBULATORY - NONE [facility] Jun 18, 2021 12:45 PM AMBULATORY - [facility] Jun 18, 2021 01:30 PM AMBULATORY - MEDICINE [facility] Jun 20, 2021 10:00 AM AMBULATORY - MEDICINE [facility] Jul 11, 2021 01:00 PM AMBULATORY - NONE [facility] Jul 26, 2021 09:00 AM AMBULATORY - MEDICINE [facility] Jul 26, 2021 10:30 AM AMBULATORY - [facility] Aug 03, 2021 10:46 AM AMBULATORY - MEDICINE [facility] Aug 08, 2021 07:00 AM AMBULATORY - [facility] Aug 10, 2021 10:30 AM AMBULATORY - NONE [facility] Sep 14, 2021 09:00 AM AMBULATORY - NONE [facility] Sep 21, 2021 09:45 AM AMBULATORY - MEDICINE [facility] Sep 21, 2021 10:00 AM AMBULATORY - MEDICINE [facility] Sep 21, 2021 10:30 AM AMBULATORY - MEDICINE [facility] Sep 21, 2021 11:00 AM AMBULATORY - MEDICINE [facility] Sep 21, 2021 11:30 AM AMBULATORY - MEDICINE [facility] Lab Results: +/- 30 days of the encounter This section includes the Chemistry and Hematology Lab Results on record with [place] for the patient. Radiology Reports and Pathology Reports are provided separately, in subsequent sections.Lab Results This section contains the Chemistry/Hematology Results that were resulted 30 days before or 30 daysafter the date of the Encounter. Date/Time Source Result Type Result - Unit Interpretation Reference Range Comment Mar 23, 2021 09:57 AM [facility] POTASSIUM Specim en Type: PLASMA No comment enter ed. Ordering Provid er: RODO PINTO Report Released Date/Time: Mar 23, 2021 09:33 AM Reporting Lab: [facility] [address] [facility] [address] Performing Lab: [facility] [address] [facility] [address] POTASSIUM 4.6 mmol/L 3.5-5.1 Mar 23, 2021 06:48 [facility] BASIC METABOLIC Specimen Type: PLASMA AM PANEL+MG Comment: Cancel lation Called to: Dora ROSANGELA Mae 03/23/2021 @ 0930 by AEK. 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 Ordering Provid er: RODO PINTO Report Released Date/Time: Mar 22, 2021 10:19 AM Reporting Lab: [facility] [address] [facility] [address] Performing Lab: [facility] [address] CREATININE 1.3 mg/dL H 0.7-1.2 UREA NITROGEN 25 mg/dL 8-26 GLUCOSE 170 mg/dL H 74-100 SODIUM 139 mmol/L 136-145 POTASSIUM canc mmol/L 3.5-5.1 CHLORIDE 109 mmol/L H 98-107 CO2 23 mmol/L 22-29 CALCIUM 9.0 mg/dL 8.4-10.2 MAGNESIUM 2.2 mg/dL 1.6-2.6 ANION GAP 7 mmol/L 5-15 ESTIMATED GFR(eGFR) 54 L >60 Mar 23, 2021 06:48 AM [facility] MAGNESIUM Specim en Type: PLASMA No comment enter ed. Ordering Provid er: RODO PINTO Report Released Date/Time: Mar 22, 2021 10:19 AM Reporting Lab: [facility] [address] [facility] [address] Performing Lab: [facility] [address] [facility] [address] MAGNESIUM 2.2 mg/dL 1.6-2.6 Mar 23, 2021 06:13 [facility] [place] GLUCOSE Speci men Type: BLOOD AM Comment: [place] Nurse Notified Ordering Provid er: DARLYN BURNS II Report Released Date/Time: Mar 23, 2021 07:07 AM Reporting Lab: [facility] [address] [facility] [address] Performing Lab: [facility] [address] [facility] [address] [place] GLUCOSE 168 mg/dL H 70-100 Mar 22, 2021 08:30 [facility] [place] GLUCOSE Speci men Type: BLOOD PM Comment: VENOUS SAMPLE Ordering Provid er: DARLYN BURNS II Report Released Date/Time: Mar 23, 2021 08:23 AM Reporting Lab: [facility] [address] [facility] [address] Performing Lab: [facility] [address] [facility] [address] [place] GLUCOSE 240 mg/dL H 70-100 Mar 22, 2021 04:28 [facility] [place] GLUCOSE Speci men Type: BLOOD PM Comment: [place] Nurse Notified Ordering Provid er: GRANTCARD II Report Released Date/Time: Mar 22, 2021 04:42 PM Reporting Lab: [facility] [address] [facility] [address] Performing Lab: [facility] [address] [facility] [address] [place] GLUCOSE 197 mg/dL H 70-100 Mar 22, 2021 11:28 [facility] [place] GLUCOSE Speci men Type: BLOOD AM Comment: Abram [place] Notified Ordering Provid er: GRANTCARD II Report Released Date/Time: Mar 22, 2021 12:14 PM Reporting Lab: [facility] [address] [facility] [address] Performing Lab: [facility] [address] [facility] [address] [place] GLUCOSE 225 mg/dL H 70-100 Mar 22, 2021 06:13 [facility] [place] GLUCOSE Speci men Type: BLOOD AM Comment: [place] Nurse Notified Ordering Provid er: GRANTCARD II Report Released Date/Time: Mar 22, 2021 12:13 PM Reporting Lab: [facility] [address] [facility] [address] Performing Lab: [facility] [address] [facility] [address] [place] GLUCOSE 155 mg/dL H 70-100 Mar 21, 2021 07:36 [facility] [place] GLUCOSE Speci men Type: BLOOD PM Comment: [place] Nurse Notified Ordering Provid er: GRANTCARD II Report Released Date/Time: Mar 21, 2021 08:53 PM Reporting Lab: [facility] [address] [facility] [address] Performing Lab: [facility] [address] [facility] [address] [place] GLUCOSE 214 mg/dL H 70-100 Mar 21, 2021 04:00 [facility] [place] GLUCOSE Speci men Type: BLOOD PM Comment: [place] Nurse Notified Ordering Provid er: DARLYN BURNS II Report Released Date/Time: Mar 21, 2021 04:27 PM Reporting Lab: [facility] [address] [facility] [address] Performing Lab: [facility] [address] [facility] [address] [place] GLUCOSE 252 mg/dL H 70-100 Mar 21, 2021 11:43 [facility] [place] GLUCOSE Speci men Type: BLOOD AM Comment: [place] Nurse Notified Ordering Provid er: GRANTCARD II Report Released Date/Time: Mar 21, 2021 12:08 PM Reporting Lab: [facility] [address] [facility] [address] Performing Lab: [facility] [address] [facility] [address] [place] GLUCOSE 227 mg/dL H 70-100 Mar 21, 2021 06:45 AM [facility] ALBUMIN Specim en Type: PLASMA No comment enter ed. Ordering Provid er: LISBET W[place] V Report Released Date/Time: Mar 20, 2021 10:27 AM Reporting Lab: [facility] [address] [facility] [address] Performing Lab: [facility] [address] [facility] [address] ALBUMIN 3.5 g/dL 3.5-5.2 Mar 21, 2021 06:45 [facility] BASIC METABOLIC Specimen Type: PLASMA AM PANEL+MG No comment enter ed. Ordering Provid er: RODO PINTO Report Released Date/Time: Mar 20, 2021 02:43 PM Reporting Lab: [facility] [address] [facility] [address] Performing Lab: [facility] [address] [facility] [address] CREATININE 1.5 mg/dL H 0.7-1.2 UREA NITROGEN 26 mg/dL 8-26 GLUCOSE 207 mg/dL H 74-100 SODIUM 140 mmol/L 136-145 POTASSIUM 4.4 mmol/L 3.5-5.1 CHLORIDE 109 mmol/L H 98-107 CO2 24 mmol/L 22-29 CALCIUM 9.0 mg/dL 8.4-10.2 MAGNESIUM 2.3 mg/dL 1.6-2.6 ANION GAP 7 mmol/L 5-15 ESTIMATED GFR(eGFR) 46 L >60 Mar 21, 2021 06:38 [facility] [place] GLUCOSE Speci men Type: BLOOD AM Comment: [place] Nurse Notified Ordering Provid er: TEAM,CARD II Report Released Date/Time: Mar 21, 2021 07:23 AM Reporting Lab: [facility] [address] [facility] [address] Performing Lab: [facility] [address] [facility] [address] [place] GLUCOSE 159 mg/dL H 70-100 Mar 20, 2021 08:27 [facility] [place] GLUCOSE Speci men Type: BLOOD PM Comment: [place] Nurse Notified Ordering Provid er: TEAM,CARD II Report Released Date/Time: Mar 20, 2021 10:52 PM Reporting Lab: [facility] [address] [address] Performing Lab: [facility] [address] [place] GLUCOSE 224 mg/dL H 70-100 Mar 20, 2021 05:06 [facility] [place] GLUCOSE Speci men Type: BLOOD PM Comment: [place] Nurse Notified Ordering Provid er: TEAM,CARD II Report Released Date/Time: Mar 20, 2021 05:27 PM Reporting Lab: [facility] [address] [facility] [address] Performing Lab: [facility] [address] [facility] [address] [place] GLUCOSE 183 mg/dL H 70-100 Mar 20, 2021 08:16 [facility] BASIC METABOLIC Specimen Type: PLASMA AM PANEL+MG No comment enter ed. Ordering Provid er: TUCKER JULIAN Report Released Date/Time: Mar 15, 2021 02:20 PM Reporting Lab: [facility] [address] [facility] [address] Performing Lab: [facility] [address] [facility] [address] CREATININE 1.6 mg/dL H 0.7-1.2 UREA NITROGEN 31 mg/dL H 8-26 GLUCOSE 216 mg/dL H 74-100 SODIUM 142 mmol/L 136-145 POTASSIUM 4.6 mmol/L 3.5-5.1 CHLORIDE 106 mmol/L 98-107 CO2 25 mmol/L 22-29 CALCIUM 9.3 mg/dL 8.4-10.2 MAGNESIUM 2.2 mg/dL 1.6-2.6 ANION GAP 11 mmol/L 5-15 ESTIMATED GFR(eGFR) 43 L >60 Mar 20, 2021 08:16 [facility] COVID-19 DIAGNOSTIC Speci men Type: NASOPHARYNGEAL AM PANEL (CEPHEID) Comment: Wiley samuel GeneXpert ([id number]) Ordering Provid er: TUCKER JULIAN Report Released Date/Time: Mar 15, 2021 02:20 PM Reporting Lab: [facility] [address] Performing Lab: [facility] [address] COVID-19 (CEPHEID) Not Detected Not Dete cted Mar 05, 2021 09:42 [facility] BASIC METABOLIC Specimen Type: PLASMA AM PANEL+MG No comment enter ed. Ordering Provid er: VICENTE PELAEZ Report Released Date/Time: Feb 19, 2021 01:50 PM Reporting Lab: [facility] [address] Performing Lab: [facility] [address] CREATININE 1.4 mg/dL H 0.7-1.2 UREA NITROGEN [...] smoking and tobacco-related health factors from the [place] facility where the Encounter took place.Current Smoking Status This section includes the most current smoking, or tobacco-related health factor, from the [place] facility where the Encounter took place. Date/Time Current Smoking Status Comment Facility Mar 20, 2021 11:21 AM [place]-VAA[facility] TOBACCO USE CURRENT NRT [facility] DECLINE Tobacco Use History This section includes a history of the smoking, or tobacco- related health factors, that were collected on or before the date of the Encounter. The data comes from the [place] facility where the Encounter took place. 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 [facility] Nov 15, 2020 10:00 AM VA-TOBACCO USE MED NO [place] [facility] Nov 15, 2020 10:00 AM VA-TOBACCO USER EVERY DAY [facility] Jun 21, 2019 02:29 PM VA-TOBACCO USE 30 YEARS OR MORE [facility] Jun 21, 2019 02:29 PM VA-TOBACCO USE ADVICE [place] [facility] Jun 21, 2019 02:29 PM 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 [facility] Jun 21, 2019 02:29 PM VA-TOBACCO USE MED NO [place] [facility] Jun 21, 2019 02:29 PM VA-TOBACCO USE [place] 30 MIN OF WAKEUP [facility] Jun 21, 2019 02:29 PM VA-TOBACCO USER EVERY DAY [facility] Jun 09, 2018 03:48 PM VA-TOBACCO USE 30 YEARS OR MORE [facility] Jun 09, 2018 03:48 PM VA-TOBACCO USE ADVICE [place] [facility] Jun 09, 2018 03:48 PM 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 [facility] Jun 09, 2018 03:48 PM VA-TOBACCO USE MED NO [place] [facility] Jun 09, 2018 03:48 PM VA-TOBACCO USE [place] 30 MIN OF WAKEUP [facility] Jun 09, 2018 03:48 PM VA-TOBACCO USER EVERY DAY [facility] Jun 20, 2017 07:53 AM CURRENT TOBACCO USER [facility] Jun 19, 2016 08:41 AM CURRENT TOBACCO USER [facility] Jun 21, 2015 08:15 AM CURRENT TOBACCO USER [facility] Mar 22, 2014 10:03 AM CURRENT TOBACCO USER [facility] Mar 25, 2013 11:01 AM CURRENT TOBACCO USER [facility] Feb 05, 2012 08:55 AM CURRENT TOBACCO USER [facility] January 01, 2011 09:26 AM CURRENT TOBACCO USER [facility] Mar 07, 2010 10:02 AM CURRENT TOBACCO USER [facility] Feb 21, 2009 08:17 AM CURRENT TOBACCO USER [facility] Nov 06, 2007 10:02 AM CURRENT TOBACCO USER [facility] January 02, 2007 10:33 AM CURRENT TOBACCO USER [facility] Advance Directives: All historical and current Section Date Range: From patient's date of to the date document was created. This section includes ALL of a patient's completed or amended [place] Advance and Rescinded Directives. The entries below indicate that a directive exists for the patient, but an actual copy is not included with this document. The data comes from all [place] facilities. Date Advance Directives Provider Source Mar 06, 2005 ADVANCE DIRECTIVE GANESH RODRIGUEZ [facility] Encounter Notes: All associated encounter notes This section contains the clinical notes associated to the Encounter. Date/Time Encounter Note(s) Provider Source Mar 26, 2021 09:14 AM REPORT OF CONTACT: JAYY SAMS [facility] LOCAL TITLE: PATIENT CONTACT NOTE STANDARD TITLE: REPORT OF CONTACT DATE OF NOTE: MAR 26, 2021@09:14 ENTRY DATE: MAR 26, 2021@09:14:51 AUTHOR: JAYY SAMS EXP COSIGNER: URGENCY: STATUS: COMPLETED Patient had a scheduled phone appointmen t today Mar at 0900am with this PACT pharmacist for Diabetes. Patient did not an swer. Attempted to contact patient 2x within appt time. Left a voice messag e asking patient to call appointment line [phone] to reschedule. When patient calls the call center appointment heri diaz please reschedule into either of my clinics per patient preference: PHONE: #[phone] ([facility] pact phone pharm blue) VVC: #[phone] ([facility] vvc pharm gabe) /billy/ JAYY SAMS Pharmacist Signed: 03/26/2021 09:16
--- OUTSIDE RECORDS SUMMARY | 2022-04-02 16:03 | XMS_ITS | Encounter Summary ---
:[address] [facility] Address [address] [place] [id number] Care Team Providers Name Role Phone WILLA [...] MEDICARE MEDICARE PART Jun 25, PART B [id number] Lizzie QUINONES PATIENT (WNR) (M) B 2011 78A 0 AVID MEDICARE MEDICARE PART Sep 25, PART A [id number] Lizzie QUINONES PATIENT (WNR) (M) A 2009 78A 0 AVID MEDICARE MEDICARE PART Sep 25, PART A [id number] Lizzie MICHELE (WNR) (M) A 2009 78A [id number] AVID MEDICARE MEDICARE PART Sep 25, PART B [id number] Lizzie MICHELE (WNR) (M) B 2009 [id number] [id number] AVID Selected Encounter This section includes the information on record at [place] for the Encounter. Date/Time Encounter Type Encounter Reason Provider Source Description Mar 26, 2021 HC PRO PHONE TELEPHONE/MEDICI ICD-10-CM Z79.01 [place] 01:38 PM CALL 11-20 MIN NE longterm (current) A use of anticoagulants with Provider Comments: longterm (current) use of anticoagulants IHE Encounter Template Text not used by [place] Assessments - Encounter Diagnoses This section includes the primary and secondary diagnoses documented for the Encounter. 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 This section includes future appointments [...] 02, 2021 01:13 PM AMBULATORY - MEDICINE [facility] May 08, 2021 02:00 PM AMBULATORY - NONE [facility] Jun 13, 2021 02:00 PM AMBULATORY - NONE [facility] Jun 18, 2021 12:45 PM AMBULATORY - NONE [facility] Jun 18, 2021 01:30 PM AMBULATORY - MEDICINE [facility] Jun 20, 2021 10:00 AM AMBULATORY - MEDICINE [facility] Jul 11, 2021 01:00 PM AMBULATORY - NONE [facility] Jul 26, 2021 09:00 AM AMBULATORY - MEDICINE [facility] CS Jul 26, 2021 10:30 AM AMBULATORY - NONE [facility] Aug 03, 2021 10:46 AM AMBULATORY - MEDICINE [facility] Aug 08, 2021 07:00 AM AMBULATORY - NONE [facility] Aug 10, 2021 10:30 AM AMBULATORY - NONE [facility] Sep 14, 2021 09:00 AM AMBULATORY - NONE [facility] Sep 21, 2021 09:45 AM AMBULATORY - MEDICINE [facility] CS Sep 21, 2021 10:00 AM AMBULATORY - MEDICINE [facility] CS Sep 21, 2021 10:30 AM AMBULATORY - MEDICINE [facility] CS Sep 21, 2021 11:00 AM AMBULATORY - MEDICINE [facility] CS Sep 21, 2021 11:30 AM AMBULATORY - MEDICINE [facility] Lab Results: +/- 30 days [...] Range Comment Mar 23, 2021 09:57 AM [facility] POTASSIUM Specim en Type: PLASMA No comment enter ed. Ordering Provid er: RODO PINTO Report Released Date/Time: Mar 23, 2021 09:33 AM Reporting Lab: [facility] [address] [address] Performing Lab: [facility] [address] POTASSIUM 4.6 mmol/L 3.5-5.1 Mar 23, 2021 06:48 [facility] BASIC METABOLIC Specimen Type: PLASMA AM PANEL+MG Comment: Cancel lation Called to: Dora Mae MSA 03/23/2021 @ 0930 by AEK. 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 Ordering Provid er: RODO PINTO Report Released Date/Time: Mar 22, 2021 10:19 AM Reporting Lab: [facility] [address] Performing Lab: [facility] [address] CREATININE 1.3 mg/dL H 0.7-1.2 UREA NITROGEN 25 mg/dL 8-26 GLUCOSE 170 mg/dL H 74-100 SODIUM 139 mmol/L 136-145 POTASSIUM canc mmol/L 3.5-5.1 CHLORIDE 109 mmol/L H 98-107 CO2 23 mmol/L 22-29 CALCIUM 9.0 mg/dL 8.4-10.2 MAGNESIUM 2.2 mg/dL 1.6-2.6 ANION GAP 7 mmol/L 5-15 ESTIMATED GFR(eGFR) 54 L >60 Mar 23, 2021 06:48 AM [facility] MAGNESIUM Specim en Type: PLASMA No comment enter ed. Ordering Provid er: RODO PINTO Report Released Date/Time: Mar 22, 2021 10:19 AM Reporting [facility] [address] Performing Lab: [facility] [address] MAGNESIUM 2.2 mg/dL 1.6-2.6 Mar 23, 2021 06:13 [facility] FINGERSTICK GLUCOSE Speci men Type: BLOOD AM Comment: [place] Nurse Notified Ordering Provid er: DARLYN BURNS II Report Released Date/Time: Mar 23, 2021 07:07 AM Reporting Lab: [facility] [address] [facility] [address] Performing Lab: [facility] [address] [facility] [address] FINGERSTICK GLUCOSE 168 mg/dL H 70-100 Mar 22, 2021 08:30 [facility] F[place] GLUCOSE Speci men Type: BLOOD PM Comment: VENOUS SAMPLE Ordering Provid er: GRANTCARD II Report Released Date/Time: Mar 23, 2021 08:23 AM Reporting Lab: [facility] [address] [facility] [address] Performing Lab: [facility] [address] [facility] [address] [place]ING[place]ICK GLUCOSE 240 mg/dL H 70-100 Mar 22, 2021 04:28 [facility] F[place] GLUCOSE Speci men Type: BLOOD PM Comment: [place] Nurse Notified Ordering Provid er: GRANTCARD II Report Released Date/Time: Mar 22, 2021 04:42 PM Reporting Lab: [facility] [address] [facility] [address] Performing Lab: [facility] [address] [facility] [address] [place] GLUCOSE 197 mg/dL H 70-100 Mar 22, 2021 11:28 [facility] [place] GLUCOSE Speci men Type: BLOOD AM Comment: [place] Nurse Notified Ordering Provid er: GRANTCARD II Report Released Date/Time: Mar 22, 2021 12:14 PM Reporting Lab: [facility] [address] [facility] [address] Performing Lab: [facility] [address] [facility] [address] [place] GLUCOSE 225 mg/dL H 70-100 Mar 22, 2021 06:13 [facility] [place] GLUCOSE Speci men Type: BLOOD AM Comment: [place] Nurse Notified Ordering Provid er: GRANTCARD II Report Released Date/Time: Mar 22, 2021 12:13 PM Reporting Lab: [facility] [address] [facility] [address] Performing Lab: [facility] [address] [facility] [address] [place] GLUCOSE 155 mg/dL H 70-100 Mar 21, 2021 07:36 [facility] [place] GLUCOSE Speci men Type: BLOOD PM Comment: [place] Nurse Notified Ordering Provid er: TEAM,CARD II Report Released Date/Time: Mar 21, 2021 08:53 PM Reporting Lab: [facility] [address] [facility] [address] Performing Lab: [facility] [address] [facility] [address] [place] GLUCOSE 214 mg/dL H 70-100 Mar 21, 2021 04:00 [facility] F[place] GLUCOSE Speci men Type: BLOOD PM Comment: [place] Nurse Notified Ordering Provid er: GRANT,CARD II Report Released Date/Time: Mar 21, 2021 04:27 PM Reporting Lab: [facility] [address] [facility] [address] Performing Lab: [facility] [address] [facility] [address] [place]ING[place] GLUCOSE 252 mg/dL H 70-100 Mar 21, 2021 11:43 [facility] [place] GLUCOSE Speci men Type: BLOOD AM Comment: [place] Nurse Notified Ordering Provid er: GRANT,CARD II Report Released Date/Time: Mar 21, 2021 12:08 PM Reporting Lab: [facility] [address] [facility] [address] Performing Lab: [facility] [address] [facility] [address] [place] GLUCOSE 227 mg/dL H 70-100 Mar 21, 2021 06:45 AM [facility] ALBUMIN Specim en Type: PLASMA No comment enter ed. Ordering Provid er: LISBET WASHINGTON V Report Released Date/Time: Mar 20, 2021 10:27 AM Reporting Lab: [facility] [address] [facility] [address] Performing Lab: [facility] [address] [facility] [address] ALBUMIN 3.5 g/dL 3.5-5.2 Mar 21, 2021 06:45 [facility] BASIC METABOLIC Specimen Type: PLASMA AM PANEL+MG No comment enter ed. Ordering Provid er: RODO PINTO Report Released Date/Time: Mar 20, 2021 02:43 PM Reporting Lab: [facility] [address] [facility] [address] Performing Lab: [facility] [address] [facility] [address] CREATININE 1.5 mg/dL H 0.7-1.2 UREA NITROGEN 26 mg/dL 8-26 GLUCOSE 207 mg/dL H 74-100 SODIUM 140 mmol/L 136-145 POTASSIUM 4.4 mmol/L 3.5-5.1 CHLORIDE 109 mmol/L H 98-107 CO2 24 mmol/L 22-29 CALCIUM 9.0 mg/dL 8.4-10.2 MAGNESIUM 2.3 mg/dL 1.6-2.6 ANION GAP 7 mmol/L 5-15 ESTIMATED GFR(eGFR) 46 L >60 Mar 21, 2021 06:38 [facility] [place] GLUCOSE Speci men Type: BLOOD AM Comment: [place] Nurse Notified Ordering Provid er: TEAM,CARD II Report Released Date/Time: Mar 21, 2021 07:23 AM Reporting Lab: [facility] [address] Performing Lab: [facility] [address] [place] GLUCOSE 159 mg/dL H 70-100 Mar 20, 2021 08:27 [facility] [place] GLUCOSE Speci men Type: BLOOD PM Comment: [place] Nurse Notified Ordering Provid er: TEAM,CARD II Report Released Date/Time: Mar 20, 2021 10:52 PM Reporting Lab: [facility] [address] [facility] [address] Performing [facility]: [facility] [address] [place] GLUCOSE 224 mg/dL H 70-100 Mar 20, 2021 05:06 [facility] [place] GLUCOSE Speci men Type: BLOOD PM Comment: [place] Nurse Notified Ordering Provid er: TEAM,CARD II Report Released Date/Time: Mar 20, 2021 05:27 PM Reporting Lab: [facility] [address] [facility] [address] Performing Lab: [facility] [address] [place] GLUCOSE 183 mg/dL H 70-100 Mar 20, 2021 08:16 [facility] BASIC METABOLIC Specimen Type: PLASMA AM PANEL+MG No comment enter ed. Ordering Provid er: TUCKER JULIAN Report Released Date/Time: Mar 15, 2021 02:20 PM Reporting Lab: [facility] [address] Performing Lab: [facility] [address] CREATININE 1.6 mg/dL H 0.7-1.2 UREA NITROGEN 31 mg/dL H 8-26 GLUCOSE 216 mg/dL H 74-100 SODIUM 142 mmol/L 136-145 POTASSIUM 4.6 mmol/L 3.5-5.1 CHLORIDE 106 mmol/L 98-107 CO2 25 mmol/L 22-29 CALCIUM 9.3 mg/dL 8.4-10.2 MAGNESIUM 2.2 mg/dL 1.6-2.6 ANION GAP 11 mmol/L 5-15 ESTIMATED GFR(eGFR) 43 L >60 Mar 20, 2021 08:16 [facility] COVID-19 DIAGNOSTIC Speci men Type: NASOPHARYNGEAL AM PANEL (CEPHEID) Comment: Cephei lizzie GeneXpert ([phone]) Ordering Provid er: TUCKER JULIAN Report Released Date/Time: Mar 15, 2021 02:20 PM Reporting Lab: [facility] [address] Performing Lab: [facility] [address] COVID-19 (CEPHEID) Not Detected Not Dete cted Mar 05, 2021 09:42 [facility] BASIC METABOLIC Specimen Type: PLASMA AM PANEL+MG No comment enter ed. Ordering Provid er: VICENTE PELAEZ Report Released Date/Time: Feb 19, 2021 01:50 PM Reporting Lab: [facility] [address] Performing Lab: [facility] [address] CREATININE 1.4 mg/dL H 0.7-1.2 UREA NITROGEN [...] smoking and tobacco-related health factors from the [place] facility where the Encounter took place.Current Smoking Status This section includes the most current smoking, or tobacco-related health factor, from the [place] facility where the Encounter took place. Date/Time Current Smoking Status Comment Facility Mar 20, 2021 11:21 AM [facility] TOBACCO USE CURRENT NRT [facility] DECLINE Tobacco Use History This section includes a history of the smoking, or tobacco- related health factors, that were collected on or before the date of the Encounter. The data comes from the [place] facility where the Encounter took place. Date/Time Smoking Status/Tobacco Use Comment [facility] ity Nov 15, 2020 10:00 AM VA-TOBACCO DOESNT USE WI 30 MIN [facility] WAKEUP Nov 15, 2020 10:00 AM VA-TOBACCO USE 30 YEARS OR MORE [facility] Nov 15, 2020 10:00 AM VA-TOBACCO USE ADVICE [facility] Nov 15, 2020 10:00 AM VA-TOBACCO USE ICING MIXER NO [facility] Nov 15, 2020 10:00 AM [facility] Nov 15, 2020 10:00 AM VA-TOBACCO USER EVERY DAY [facility] Jun 21, 2019 02:29 PM VA-TOBACCO USE 30 YEARS OR MORE [facility] Jun 21, 2019 02:29 PM VA-TOBACCO USE ADVICE [facility] Jun 21, 2019 02:29 PM VA-TOBACCO USE ICING MIXER NO [facility] Jun 21, 2019 02:29 PM VA-TOBACCO USE MED NO [facility] Jun 21, 2019 02:29 PM VA-TOBACCO USE WI 30 MIN OF WAKEUP [facility] Jun 21, 2019 02:29 PM VA-TOBACCO USER EVERY DAY [facility] Jun 09, 2018 03:48 PM VA-TOBACCO USE 30 YEARS OR MORE [facility] Jun 09, 2018 03:48 PM VA-TOBACCO USE ADVICE [facility] Jun 09, 2018 03:48 PM VA-TOBACCO USE ICING MIXER NO [facility] Jun 09, 2018 03:48 PM VA-TOBACCO USE MED NO [facility] Jun 09, 2018 03:48 PM VA-TOBACCO USE WI 30 MIN OF WAKEUP [facility] Jun 09, 2018 03:48 PM VA-TOBACCO USER EVERY DAY [facility] Jun 20, 2017 07:53 AM CURRENT TOBACCO USER [facility] Jun 19, 2016 08:41 AM CURRENT TOBACCO USER [facility] Jun 21, 2015 08:15 AM CURRENT TOBACCO USER [facility] Mar 22, 2014 10:03 AM CURRENT TOBACCO USER [facility] Mar 25, 2013 11:01 AM CURRENT TOBACCO USER [facility] Feb 05, 2012 08:55 AM CURRENT TOBACCO USER [facility] January 01, 2011 09:26 AM CURRENT TOBACCO USER [facility] Mar 07, 2010 10:02 AM CURRENT TOBACCO USER [facility] Feb 21, 2009 08:17 AM CURRENT TOBACCO USER [facility] Nov 06, 2007 10:02 AM CURRENT TOBACCO USER [facility] January 02, 2007 10:33 AM CURRENT TOBACCO USER [facility] Advance Directives: All historical and [...] Mar 06, 2005 ADVANCE DIRECTIVE GANESH RODRIGUEZ [facility] Encounter Notes: All associated encounter notes This section contains the clinical notes associated to the Encounter. 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 DOAC Monitoring note - Anticoagulant regimen: Apixaban 5mg every 12 h ours - Indication: Atrial fibrillation - Secondary Indication/Relevant PMH: - h/o CABG 2010, thrombocytopenia - Prior major bleeds: none per pt - Prior anticoagulants: uncertain per pt - Start date: 12/2020 - Anticipated duration of therapy: indefinite - CHADS2-VASC = 5 (age, htn, DM, CAD, HF) - HAS-BLED = 2 (age, aspirin) SUBJECTIVE/OBJECTIVE: History was obtained from patient on Mar via phone at [phone] No Recent health changes: No Upcoming procedures requiring interruption: No Bleeding or thromboembolic complications: No Falls or injuries: Yes Medication changes/Significant DDIs (ie: NSA ID, ASA/antiplatelet use): - Continues ASA 81mg per cardiology, no other N SAID. Yes Alcohol use: - Baseline: Has 1-2 drinks every other day. -Sm okes 1 PPD. No Compliance concerns/frequently missed doses: Lab: ---- Outside hemoglobin Lab result: 15.6 Date: January 10, 2021 Outside platelet count Lab result: 78 Date: January 11, 2021 Outside creatinine (serum) Lab result: 1.32 Date: January 12, 2021 Outside AST Lab result: 30 Date: January 10, 2021 Outside ALT Lab result: 21 Date: January 10, 2021 CrCl Cockcroft & Gault (Actual body weight): 74. 4 (mL/min) Age: 75 Height: 73.5 in [186.7 cm] (02/19/2021 12:45) Weight: 231.2 lb [105.1 kg] (02/19/2021 12:45) CREATININE 1.3 H (03/23/21) Creatinine POC: Collection DT Specimen Test Name Result Units Re f Range 03/25/2017 15:36 BLOOD POC CREATININE 1.1 mg/dL 0.6 - 1.3 CBC: Collection DT Spec WBC HGB HCT PLT MCV 10/27/2020 09:36 BLOOD 8.30 16.7 52.6 78 L 103.5 H LFT: Collection DT Specimen Test Name Result Units Re f Range 12/03/2011 14:20 PLASMA!! BILIRUBIN, TOTAL 0.5 m g/dL 0.2 - 1.0 12/03/2011 14:20 PLASMA!! ALKALINE PHOSPHAT 74 U /L 50 - 136 02/19/2021 12:03 PLASMA AST/SGOT 28 U/L Ref: <=3 4 02/19/2021 12:03 PLASMA ALT/SGPT 32 U/L Ref: <=5 5 !! Indicates COMMENTS AVAILABLE...Refer to Inter im Lab Report. ASSESSMENT/PLAN: Taking DOAC correctly, with compliance, and with out adverse effects attributable to the use of the drug. NEW LABS DRAWN SINCE INITIAL CONSULT; PHARMACIST TO REVIEW. - Continue anticoagulation at current dose. - No questions about written education provided. - Monitor dashboard for labs, drug interactions, and compliance. - Annual follow up unless otherwise specified by provider at initiation or as clinically indicated. - Yes refill requested. - RPh: Agreeable to Rx for 9 0-day supply. Please refill & send to [facility], Thanks. Time spent: 20 minutes Patient education of treatment plan: Patient ind icates readiness to learn, verbalizes understanding, agreement and satisfac tion with the treatment plan. Denies further questions. /billy/ Cert. Angela Assistant Curator Cert. Assistant Curator Signed: 03/26/2021 13:46 Receipt Acknowledged By: 03/26/2021 14:00 /billy/ Nadeen Faith PharmD. Pharmacist 03/26/2021 ADDENDUM STATUS: COMPLETED Est CrCl ~75.1ml/min (ABW) - no change to plan - Rx changed to a 90-DS /billy/ Nadeen Faith PharmD. Pharmacist Signed: 03/26/2021 14:02
--- OUTSIDE RECORDS SUMMARY | 2022-04-02 16:03 | XMS_ITS | Encounter Summary ---
:1945 Author Organization Department [facility] Address [address] [place] [id number] Care Team Providers Name Role Phone WILLA [...] MEDICARE MEDICARE PART Jun 25, PART B [id number] Saumya QUINONES PATIENT (WNR) (M) B 2011 78A 0 AVID MEDICARE MEDICARE PART Sep 25, PART A [id number] Saumya QUINONES PATIENT (WNR) (M) A 2009 78A 0 AVID MEDICARE MEDICARE PART Sep 25, PART A [id number] Saumya MICHELE (WNR) (M) A 2009 [id number] AVID MEDICARE MEDICARE PART Sep 25, PART B [id number] Saumya MICHELE (WNR) (M) B 2009 [id number] AVID Selected Encounter This section includes the information on record at ID for the Encounter. Date/Time Encounter Type Encounter Description Reason Provider Source Mar 30, 2021 10:53 Outpatient Encounter TELEPHONE PRIMARY CARE IHE Encounter Template Text not used by ID Plan of Treatment: Future Appointments (+ 6 months) and Future Tests (+/- 45 days) The Plan of Treatment section includes future care activities for the patient [facility]. This section includes future appointments and future orders which are active, pending orscheduled.Future Appointments This section includes appointments that were scheduled to occur 6 months from the date of the Encounter, up to a maximum of 20 appointments. The data comes from all ID treatment facilities. Appointment Date/Time Appointment Type Appointment Facili ty Name Apr 02, 2021 01:13 PM AMBULATORY - MEDICINE [facility] May 08, 2021 02:00 PM AMBULATORY - NONE [facility] Jun 13, 2021 02:00 PM AMBULATORY - NONE [facility] Jun 18, 2021 12:45 PM AMBULATORY - [facility] Jun 18, 2021 01:30 PM AMBULATORY - MEDICINE [facility] Jun 20, 2021 10:00 AM AMBULATORY - MEDICINE [facility] Jul 11, 2021 01:00 PM AMBULATORY - NONE [facility] Jul 26, 2021 09:00 AM AMBULATORY - MEDICINE [facility] Jul 26, 2021 10:30 AM AMBULATORY - [facility] Aug 03, 2021 10:46 AM AMBULATORY - MEDICINE [facility] Aug 08, 2021 07:00 AM AMBULATORY - [facility] Aug 10, 2021 10:30 AM AMBULATORY - NONE [facility] Sep 14, 2021 09:00 AM AMBULATORY - NONE [facility] Sep 21, 2021 09:45 AM AMBULATORY - MEDICINE [facility] Sep 21, 2021 10:00 AM AMBULATORY - MEDICINE [facility] Sep 21, 2021 10:30 AM AMBULATORY - MEDICINE [facility] Sep 21, 2021 11:00 AM AMBULATORY - MEDICINE [facility] Sep 21, 2021 11:30 AM AMBULATORY - MEDICINE [facility] Lab Results: +/- 30 days of the encounter This section includes the Chemistry and Hematology Lab Results on record with ID for the patient. Radiology Reports and Pathology Reports are provided separately, in subsequent sections.Lab Results This section contains the Chemistry/Hematology Results that were resulted 30 days before or 30 daysafter the date of the Encounter. Date/Time Source Result Type Result - Unit Interpretation Reference Range Comment Mar 23, 2021 09:57 AM [facility] POTASSIUM Specim en Type: PLASMA No comment enter ed. Ordering Provid er: RODO PINTO Report Released Date/Time: Mar 23, 2021 09:33 AM Reporting Lab: [facility] [address] [facility] [address] Performing Lab: [facility] [address] [facility] [address] POTASSIUM 4.6 mmol/L 3.5-5.1 Mar 23, 2021 06:48 [facility] BASIC METABOLIC Specimen Type: PLASMA AM PANEL+MG Comment: Cancel lation Called to: Dora ROSANGELA Mae 03/23/2021 @ 0930 by AEK. 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 Ordering Provid er: RODO PINTO Report Released Date/Time: Mar 22, 2021 10:19 AM Reporting Lab: [facility] [address] [facility] [address] Performing Lab: [facility] [address] CREATININE 1.3 mg/dL H 0.7-1.2 UREA NITROGEN 25 mg/dL 8-26 GLUCOSE 170 mg/dL H 74-100 SODIUM 139 mmol/L 136-145 POTASSIUM canc mmol/L 3.5-5.1 CHLORIDE 109 mmol/L H 98-107 CO2 23 mmol/L 22-29 CALCIUM 9.0 mg/dL 8.4-10.2 MAGNESIUM 2.2 mg/dL 1.6-2.6 ANION GAP 7 mmol/L 5-15 ESTIMATED GFR(eGFR) 54 L >60 Mar 23, 2021 06:48 AM [facility] MAGNESIUM Specim en Type: PLASMA No comment enter ed. Ordering Provid er: RODO PINTO Report Released Date/Time: Mar 22, 2021 10:19 AM Reporting Lab: [facility] [address] [facility] [address] Performing Lab: [facility] [address] [facility] [address] MAGNESIUM 2.2 mg/dL 1.6-2.6 Mar 23, 2021 06:13 [facility] FINGERSTICK GLUCOSE Speci men Type: BLOOD AM Comment: Abram rock Nurse Notified Ordering Provid er: DARLYN BURNS II Report Released Date/Time: Mar 23, 2021 07:07 AM Reporting Lab: [facility] [address] [facility] [address] Performing Lab: [facility] [address] [facility] [address] FINGERSTICK GLUCOSE 168 mg/dL H 70-100 Mar 22, 2021 08:30 [facility] FINGERSTICK GLUCOSE Speci men Type: BLOOD PM Comment: VENOUS SAMPLE Ordering Provid er: DARLYN BURNS II Report Released Date/Time: Mar 23, 2021 08:23 AM Reporting Lab: [facility] [address] [facility] [address] Performing Lab: [facility] [address] [facility] [address] FINGERSTICK GLUCOSE 240 mg/dL H 70-100 Mar 22, 2021 04:28 [facility] FINGERSTICK GLUCOSE Speci men Type: BLOOD PM Comment: Abram rock Nurse Notified Ordering Provid er: GRANTCARD II Report Released Date/Time: Mar 22, 2021 04:42 PM Reporting Lab: [facility] [address] [facility] [address] Performing Lab: [facility] [address] [facility] [address] FINGERSTICK GLUCOSE 197 mg/dL H 70-100 Mar 22, 2021 11:28 [facility] FINGERSTICK GLUCOSE Speci men Type: BLOOD AM Comment: Abram Welch Notified Ordering Provid er: GRANTCARD II Report Released Date/Time: Mar 22, 2021 12:14 PM Reporting Lab: [facility] [address] [facility] [address] Performing Lab: [facility] [address] [facility] [address] FINGERSTICK GLUCOSE 225 mg/dL H 70-100 Mar 22, 2021 06:13 [facility] FINGERSTICK GLUCOSE Speci men Type: BLOOD AM Comment: [place]am rock Nurse Notified Ordering Provid er: GRANTCARD II Report Released Date/Time: Mar 22, 2021 12:13 PM Reporting Lab: [facility] [address] [facility] [address] Performing Lab: [facility] [address] [facility] [address] FINGERSTICK GLUCOSE 155 mg/dL H 70-100 Mar 21, 2021 07:36 [facility] FINGERSTICK GLUCOSE Speci men Type: BLOOD PM Comment: Abram rock Nurse Notified Ordering Provid er: GRANTCARD II Report Released Date/Time: Mar 21, 2021 08:53 PM Reporting Lab: [facility] [address] [facility] [address] Performing Lab: [facility] [address] [facility] [address] FINGERSTICK GLUCOSE 214 mg/dL H 70-100 Mar 21, 2021 04:00 [facility] FINGERSTICK GLUCOSE Speci men Type: BLOOD PM Comment: Abram rock Nurse Notified Ordering Provid er: DARLYN BURNS II Report Released Date/Time: Mar 21, 2021 04:27 PM Reporting Lab: [facility] [address] [facility] [address] Performing Lab: [facility] [address] [facility] [address] FINGERSTICK GLUCOSE 252 mg/dL H 70-100 Mar 21, 2021 11:43 [facility] FINGERSTICK GLUCOSE Speci men Type: BLOOD AM Comment: Abram rock Nurse Notified Ordering Provid er: GRANTCARD II Report Released Date/Time: Mar 21, 2021 12:08 PM Reporting Lab: [facility] [address] [facility] [address] Performing Lab: [facility] [address] [facility] [address] FINGERSTICK GLUCOSE 227 mg/dL H 70-100 Mar 21, 2021 06:45 AM [facility] ALBUMIN Specim en Type: PLASMA No comment enter ed. Ordering Provid er: LISBET WASHINGTON V Report Released Date/Time: Mar 20, 2021 10:27 AM Reporting Lab: [facility] [address] [facility] [address] Performing Lab: [facility] [address] [facility] [address] ALBUMIN 3.5 g/dL 3.5-5.2 Mar 21, 2021 06:45 [facility] BASIC METABOLIC Specimen Type: PLASMA AM PANEL+MG No comment enter ed. Ordering Provid er: RODO PINTO Report Released Date/Time: Mar 20, 2021 02:43 PM Reporting Lab: [facility] [address] [facility] [address] Performing Lab: [facility] [address] [facility] [address] CREATININE 1.5 mg/dL H 0.7-1.2 UREA NITROGEN 26 mg/dL 8-26 GLUCOSE 207 mg/dL H 74-100 SODIUM 140 mmol/L 136-145 POTASSIUM 4.4 mmol/L 3.5-5.1 CHLORIDE 109 mmol/L H 98-107 CO2 24 mmol/L 22-29 CALCIUM 9.0 mg/dL 8.4-10.2 MAGNESIUM 2.3 mg/dL 1.6-2.6 ANION GAP 7 mmol/L 5-15 ESTIMATED GFR(eGFR) 46 L >60 Mar 21, 2021 06:38 [facility] FINGERSTICK GLUCOSE Speci men Type: BLOOD AM Comment: Abram rock Nurse Notified Ordering Provid er: TEAM,CARD II Report Released Date/Time: Mar 21, 2021 07:23 AM Reporting Lab: [facility] [address] [facility] [address] Performing Lab: [facility] [address] [facility] [address] FINGERSTICK GLUCOSE 159 mg/dL H 70-100 Mar 20, 2021 08:27 [facility] FINGERSTICK GLUCOSE Speci men Type: BLOOD PM Comment: Abram rock Nurse Notified Ordering Provid er: TEAM,CARD II Report Released Date/Time: Mar 20, 2021 10:52 PM Reporting Lab: [facility] [address] Performing Lab: [facility] [address] FINGERSTICK GLUCOSE 224 mg/dL H 70-100 Mar 20, 2021 05:06 [facility] FINGERSTICK GLUCOSE Speci men Type: BLOOD PM Comment: [place]am [place] Nurse Notified Ordering Provid er: TEAM,CARD II Report Released Date/Time: Mar 20, 2021 05:27 PM Reporting Lab: [facility] [address] [facility] [address] Performing Lab: [facility] [address] [facility] [address] FINGERSTICK GLUCOSE 183 mg/dL H 70-100 Mar 20, 2021 08:16 [facility] BASIC METABOLIC Specimen Type: PLASMA AM PANEL+MG No comment enter ed. Ordering Provid er: TUCKER JULIAN Report Released Date/Time: Mar 15, 2021 02:20 PM Reporting Lab: [facility] [address] [facility] [address] Performing Lab: [facility] [address] [facility] [address] CREATININE 1.6 mg/dL H 0.7-1.2 UREA NITROGEN 31 mg/dL H 8-26 GLUCOSE 216 mg/dL H 74-100 SODIUM 142 mmol/L 136-145 POTASSIUM 4.6 mmol/L 3.5-5.1 CHLORIDE 106 mmol/L 98-107 CO2 25 mmol/L 22-29 CALCIUM 9.3 mg/dL 8.4-10.2 MAGNESIUM 2.2 mg/dL 1.6-2.6 ANION GAP 11 mmol/L 5-15 ESTIMATED GFR(eGFR) 43 L >60 Mar 20, 2021 08:16 [facility] COVID-19 DIAGNOSTIC Speci men Type: NASOPHARYNGEAL AM PANEL (CEPHEID) Comment: Wiley samuel GeneXpert (618) Ordering Provid er: TUCKER JULIAN Report Released Date/Time: Mar 15, 2021 02:20 PM Reporting Lab: [facility] [address] Performing Lab: [facility] [address] COVID-19 (CEPHEID) Not Detected Not Dete cted Mar 05, 2021 09:42 [facility] BASIC METABOLIC Specimen Type: PLASMA AM PANEL+MG No comment enter ed. Ordering Provid er: VICENTE PELAEZ Report Released Date/Time: Feb 19, 2021 01:50 PM Reporting Lab: [facility] [address] Performing Lab: [facility] [address] CREATININE 1.4 mg/dL H 0.7-1.2 UREA NITROGEN [...] smoking and tobacco-related health factors from the ID facility where the Encounter took place.Current Smoking Status This section includes the most current smoking, or tobacco-related health factor, from the ID facility where the Encounter took place. Date/Time Current Smoking Status Comment Facility Mar 20, 2021 11:21 AM ID-VAAES TOBACCO USE CURRENT NRT [facility] DECLINE Tobacco Use History This section includes a history of the smoking, or tobacco- related health factors, that were collected on or before the date of the Encounter. The data comes from the ID facility where the Encounter took place. Date/Time Smoking Status/Tobacco Use Comment Facil ity Nov 15, 2020 10:00 AM VA-TOBACCO DOESNT USE WI 30 MIN [facility] WAKEUP Nov 15, 2020 10:00 AM VA-TOBACCO USE 30 YEARS OR MORE [facility] Nov 15, 2020 10:00 AM VA-TOBACCO USE ADVICE [facility] Nov 15, 2020 10:00 AM 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 [facility] Nov 15, 2020 10:00 AM VA-TOBACCO USE MED NO [facility] Nov 15, 2020 10:00 AM VA-TOBACCO USER EVERY DAY [facility] Jun 21, 2019 02:29 PM VA-TOBACCO USE 30 YEARS OR MORE [facility] Jun 21, 2019 02:29 PM VA-TOBACCO USE ADVICE [facility] Jun 21, 2019 02:29 PM 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 [facility] Jun 21, 2019 02:29 PM VA-TOBACCO USE MED NO [facility] Jun 21, 2019 02:29 PM VA-TOBACCO USE [place] 30 MIN OF WAKEUP [facility] Jun 21, 2019 02:29 PM VA-TOBACCO USER EVERY DAY [facility] Jun 09, 2018 03:48 PM VA-TOBACCO USE 30 YEARS OR MORE [facility] Jun 09, 2018 03:48 PM VA-TOBACCO USE ADVICE [facility] Jun 09, 2018 03:48 PM 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 [facility] Jun 09, 2018 03:48 PM VA-TOBACCO USE MED NO [place] [facility] Jun 09, 2018 03:48 PM VA-TOBACCO USE [place] 30 MIN OF WAKEUP [facility] Jun 09, 2018 03:48 PM VA-TOBACCO USER EVERY DAY [facility] Jun 20, 2017 07:53 AM [facility] Jun 19, 2016 08:41 AM CURRENT [facility]ACCO [facility] Jun 21, 2015 08:15 AM CURRENT TOBACCO [facility] Mar 22, 2014 10:03 AM CURRENT TOBACCO USER [facility] Mar 25, 2013 11:01 AM CURRENT TOBACCO USER [facility] Feb 05, 2012 08:55 AM CURRENT TOBACCO USER [facility] January 01, 2011 09:26 AM CURRENT TOBACCO USER [facility] Mar 07, 2010 10:02 AM CURRENT TOBACCO USER [facility] Feb 21, 2009 08:17 AM CURRENT TOBACCO USER [facility] Nov 06, 2007 10:02 AM CURRENT TOBACCO USER [facility] January 02, 2007 10:33 AM CURRENT TOBACCO USER [facility] Advance Directives: All historical and current Section Date Range: From patient's date of to the date document was created. This section includes ALL of a patient's completed or amended ID Advance and Rescinded Directives. The entries below indicate that a directive exists for the patient, but an actual copy is not included with this document. The data comes from all ID facilities. Date Advance Directives Provider Source Mar 06, 2005 ADVANCE DIRECTIVE GANESH RODRIGUEZ [facility] Encounter Notes: All associated encounter notes This section contains the clinical notes associated to the Encounter. Date/Time Encounter Note(s) Provider Source Mar 30, 2021 10:53 AM REPORT OF CONTACT: EMERSON SKAGGS [facility] LOCAL TITLE: PATIENT CONTACT NOTE STANDARD TITLE: REPORT OF CONTACT DATE OF NOTE: MAR 30, 2021@10:53 ENTRY DATE: MAR 30, 2021@10:53:18 AUTHOR: EMERSON SKAGGS EXP COSIGNER: URGENCY: STATUS: COMPLETED Patient contact Name of : RYNEPAUL Dorita Date & Time of Contact: Mar@10:53 Type of Contact: Telephone Reason for Contact: Third attempt to contact [facility] for f/u recent post d/c. Left message with [facility] number if patient wants to contact. /billy/ EMERSON SKAGGS RN REGISTERED NURSE Signed: 03/30/2021 10:55
--- OUTSIDE RECORDS SUMMARY | 2022-04-02 16:03 | XMS_ITS ---
HOSPITALIZATION [facility] HCS Encounter Summary Created on:March 23, 2021 Patient:PAUL MICHELE Sex:Male :1945 Author Organization [facility] Address [address] [place], [place] [address] Care Team Providers Name Role Phone WILLA [...] MEDICARE MEDICARE PART Jun 25, PART B [id number] Saumya QUINONES PATIENT (WNR) (M) B 2011 78A 0 AVID MEDICARE MEDICARE PART Sep 25, PART A [id number] Saumya QUINONES PATIENT (WNR) (M) A 2009 78A 0 AVID MEDICARE MEDICARE PART Sep 25, PART A [id number] Saumya MICHELE (WNR) (M) A 2009 [id number] [id number] AVID MEDICARE MEDICARE PART Sep 25, PART B [id number] Saumya MICHELE (WNR) (M) B 2009 78A [id number] AVID Selected Encounter This section includes the information on record at OR for the Encounter. Date/Time Encounter Type Encounter Description Reason Provider Source Mar 20, 2021 10:20 Inpatient Visit HOSPITALIZATION TEAM,MIGEL RD II AM I[facility] Encounter Template Text not used by OR Assessments - Encounter Diagnoses This section includes the primary and secondary diagnoses documented for the Encounter. Date/Time Primary/Secondary Diagnosis Name Provider Source Diagnosis Mar 23, 2021 Diagnosis for Length of Other persistent [facility] 02:00 PM Stay atrial fibrillation [facility] Plan of Treatment: Future Appointments (+ 6 months) and Future Tests (+/- 45 days) The Plan of Treatment section includes future care activities for the patient from all OR treatmentfacilities. This section includes future appointments and future orders which are active, pending orscheduled.Future Appointments This section includes appointments that were scheduled to occur 6 months from the date of the Encounter, up to a maximum of 20 appointments. The data comes from all OR treatment facilities. Appointment Date/Time Appointment Type Appointment Facili ty Name Mar 22, 2021 06:26 PM AMBULATORY - MEDICINE [facility] Mar 23, 2021 02:30 PM AMBULATORY - MEDICINE [facility] Mar 23, 2021 03:00 PM AMBULATORY - MEDICINE [facility] Mar 26, 2021 09:00 AM AMBULATORY - NONE [facility] Apr 02, 2021 01:13 PM AMBULATORY - MEDICINE [facility] May 08, 2021 02:00 PM AMBULATORY - NONE [facility] Jun 13, 2021 02:00 PM AMBULATORY - NONE [facility] Jun 18, 2021 12:45 PM AMBULATORY - NONE [facility] Jun 18, 2021 01:30 PM AMBULATORY - MEDICINE [facility] Jun 20, 2021 10:00 AM AMBULATORY - MEDICINE [facility] Jul 11, 2021 01:00 PM AMBULATORY - NONE [facility] Jul 26, 2021 09:00 AM AMBULATORY - MEDICINE [facility] Jul 26, 2021 10:30 AM AMBULATORY - NONE [facility] Aug 03, 2021 10:46 AM AMBULATORY - MEDICINE [facility] Aug 08, 2021 07:00 AM AMBULATORY - NONE [facility] Aug 10, 2021 10:30 AM AMBULATORY - NONE [facility] Sep 14, 2021 09:00 AM AMBULATORY - NONE [facility] Lab Results: +/- 30 days of the encounter This section includes the Chemistry and Hematology Lab Results on record with OR for the patient. Radiology Reports and Pathology Reports are provided separately, in subsequent sections.Lab Results This section contains the Chemistry/Hematology Results that were resulted 30 days before or 30 daysafter the date of the Encounter. Date/Time Source Result Type Result - Unit Interpretation Reference Range Comment Mar 23, 2021 09:57 AM [facility] POTASSIUM Specim en Type: PLASMA No comment enter ed. Ordering Provid er: RODO PINTO Report Released Date/Time: Mar 23, 2021 09:33 AM Reporting Lab: [facility] [address] [facility] [address] Performing Lab: [facility] [address] [facility] [address] POTASSIUM 4.6 mmol/L 3.5-5.1 Mar 23, 2021 06:48 [facility] BASIC METABOLIC Specimen Type: PLASMA AM PANEL+MG Comment: Cancel lation Called to: Dora Mae MSA 03/23/2021 @ 0930 by AEK. 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 Ordering Provid er: RODO PINTO Report Released Date/Time: Mar 22, 2021 10:19 AM Reporting Lab: [facility] [address] [facility] [address] Performing Lab: [facility] [address] [facility] [address] CREATININE 1.3 mg/dL H 0.7-1.2 UREA NITROGEN 25 mg/dL 8-26 GLUCOSE 170 mg/dL H 74-100 SODIUM 139 mmol/L 136-145 POTASSIUM canc mmol/L 3.5-5.1 CHLORIDE 109 mmol/L H 98-107 CO2 23 mmol/L 22-29 CALCIUM 9.0 mg/dL 8.4-10.2 MAGNESIUM 2.2 mg/dL 1.6-2.6 ANION GAP 7 mmol/L 5-15 ESTIMATED GFR(eGFR) 54 L >60 Mar 23, 2021 06:48 AM [facility] MAGNESIUM Specim en Type: PLASMA No comment enter ed. Ordering Provid er: RODO PINTO Report Released Date/Time: Mar 22, 2021 10:19 AM Reporting Lab: [facility] [address] [facility] [address] Performing Lab: [facility] [address] [facility] [address] MAGNESIUM 2.2 mg/dL 1.6-2.6 Mar 23, 2021 06:13 [facility] [place] GLUCOSE Speci men Type: BLOOD AM Comment: [place] Nurse Notified Ordering Provid er: GRANT,CARD II Report Released Date/Time: Mar 23, 2021 07:07 AM Reporting Lab: [facility] [address] [facility] [address] Performing Lab: [facility] [address] [facility] [address] [place]ICK GLUCOSE 168 mg/dL H 70-100 Mar 22, 2021 08:30 [facility] [place] GLUCOSE Speci men Type: BLOOD PM Comment: VENOUS SAMPLE Ordering Provid er: DARLYN BURNS II Report Released Date/Time: Mar 23, 2021 08:23 AM Reporting Lab: [facility] [address] [facility] [address] Performing Lab: [facility] [address] [facility] [address] [place] GLUCOSE 240 mg/dL H 70-100 Mar 22, 2021 04:28 [facility] [place] GLUCOSE Speci men Type: BLOOD PM Comment: [place] Nurse Notified Ordering Provid er: DARLYN BURNS II Report Released Date/Time: Mar 22, 2021 04:42 PM Reporting Lab: [facility] [address] [facility] [address] Performing Lab: [facility] [address] [facility] [address] [place] GLUCOSE 197 mg/dL H 70-100 Mar 22, 2021 11:28 [facility] [place] GLUCOSE Speci men Type: BLOOD AM Comment: [place] Nurse Notified Ordering Provid er: GRANTCARD II Report Released Date/Time: Mar 22, 2021 12:14 PM Reporting Lab: [facility] [address] [facility] [address] Performing Lab: [facility] [address] [facility] [address] [place] GLUCOSE 225 mg/dL H 70-100 Mar 22, 2021 06:13 [facility] [place] GLUCOSE Speci men Type: BLOOD AM Comment: [place] Nurse Notified Ordering Provid er: GRANTCARD II Report Released Date/Time: Mar 22, 2021 12:13 PM Reporting Lab: [facility] [address] [facility] [address] Performing Lab: [facility] [address] [facility] [address] [place] GLUCOSE 155 mg/dL H 70-100 Mar 21, 2021 07:36 [facility] [place] GLUCOSE Speci men Type: BLOOD PM Comment: [place] Nurse Notified Ordering Provid er: GRANTCARD II Report Released Date/Time: Mar 21, 2021 08:53 PM Reporting Lab: [facility] [address] [place] [place] [address] Performing Lab: [facility] [address] [facility] [address] [place] GLUCOSE 214 mg/dL H 70-100 Mar 21, 2021 04:00 [facility] [place] GLUCOSE Speci men Type: BLOOD PM Comment: [place] Nurse Notified Ordering Provid er: TEAM,CARD II Report Released Date/Time: Mar 21, 2021 04:27 PM Reporting Lab: [facility] [address] [facility] [address] Performing Lab: [facility] [address] [facility] [address] [place] GLUCOSE 252 mg/dL H 70-100 Mar 21, 2021 11:43 [facility] [place] GLUCOSE Speci men Type: BLOOD AM Comment: [place] Nurse Notified Ordering Provid er: GRANT,CARD II Report Released Date/Time: Mar 21, 2021 12:08 PM Reporting Lab: [facility] [place] [facility] [address] Performing Lab: [facility] [address] [place] GLUCOSE 227 mg/dL H 70-100 Mar 21, 2021 06:45 AM [facility] ALBUMIN Specim en Type: PLASMA No comment enter ed. Ordering Provid er: LISBET WASHINGTON V Report Released Date/Time: Mar 20, 2021 10:27 AM Reporting Lab: [facility] [address] [facility] [address] Performing Lab: [facility] [address] [facility] [address] ALBUMIN 3.5 g/dL 3.5-5.2 Mar 21, 2021 06:45 [facility] BASIC METABOLIC Specimen Type: PLASMA AM PANEL+MG No comment enter ed. Ordering Provid er: RODO PINTO Report Released Date/Time: Mar 20, 2021 02:43 PM Reporting Lab: [facility] [address] [facility] [address] Performing Lab: [facility] [address] [facility] [address] CREATININE 1.5 mg/dL H 0.7-1.2 UREA NITROGEN 26 mg/dL 8-26 GLUCOSE 207 mg/dL H 74-100 SODIUM 140 mmol/L 136-145 POTASSIUM 4.4 mmol/L 3.5-5.1 CHLORIDE 109 mmol/L H 98-107 CO2 24 mmol/L 22-29 CALCIUM 9.0 mg/dL 8.4-10.2 MAGNESIUM 2.3 mg/dL 1.6-2.6 ANION GAP 7 mmol/L 5-15 ESTIMATED GFR(eGFR) 46 L >60 Mar 21, 2021 06:38 [facility] [place] GLUCOSE Speci men Type: BLOOD AM Comment: [place] Nurse Notified Ordering Provid er: TEAM,CARD II Report Released Date/Time: Mar 21, 2021 07:23 AM Reporting Lab: [facility] [address] [facility] [address] Performing Lab: [facility] [address] [place] GLUCOSE 159 mg/dL H 70-100 Mar 20, 2021 08:27 [facility] [place] GLUCOSE Speci men Type: BLOOD PM Comment: [place] Nurse Notified Ordering Provid er: TEAM,CARD II Report Released Date/Time: Mar 20, 2021 10:52 PM Reporting Lab: [facility] [address] Performing Lab: [facility] [address] [place] GLUCOSE 224 mg/dL H 70-100 Mar 20, 2021 05:06 [facility] [place] GLUCOSE Speci men Type: BLOOD PM Comment: [place] Nurse Notified Ordering Provid er: GRANT,CARD II Report Released Date/Time: Mar 20, 2021 05:27 PM Reporting Lab: [facility] [address] Performing Lab: [facility] [address] [place] GLUCOSE 183 mg/dL H 70-100 Mar 20, 2021 08:16 [facility] BASIC METABOLIC Specimen Type: PLASMA AM PANEL+MG No comment enter ed. Ordering Provid er: TUCKER JULIAN Report Released Date/Time: Mar 15, 2021 02:20 PM Reporting Lab: [facility] [address] Performing Lab: [facility] [address] CREATININE 1.6 mg/dL H 0.7-1.2 UREA NITROGEN 31 mg/dL H 8-26 GLUCOSE 216 mg/dL H 74-100 SODIUM 142 mmol/L 136-145 POTASSIUM 4.6 mmol/L 3.5-5.1 CHLORIDE 106 mmol/L 98-107 CO2 25 mmol/L 22-29 CALCIUM 9.3 mg/dL 8.4-10.2 MAGNESIUM 2.2 mg/dL 1.6-2.6 ANION GAP 11 mmol/L 5-15 ESTIMATED GFR(eGFR) 43 L >60 Mar 20, 2021 08:16 [facility] COVID-19 DIAGNOSTIC Speci men Type: NASOPHARYNGEAL AM PANEL (CEPHEID) Comment: Wiley samuel GeneXpert (618) Ordering Provid er: TUCKER JULIAN Report Released Date/Time: Mar 15, 2021 02:20 PM Reporting Lab: [facility] [address] Performing Lab: [facility] [address] COVID-19 (CEPHEID) Not Detected Not Dete cted Mar 05, 2021 09:42 [facility] BASIC METABOLIC Specimen Type: PLASMA AM PANEL+MG No comment enter ed. Ordering Provid er: VICENTE PELAEZ Report Released Date/Time: Feb 19, 2021 01:50 PM Reporting Lab: [facility] [address] Performing Lab: [facility] [address] CREATININE 1.4 mg/dL H 0.7-1.2 UREA NITROGEN 22 mg/dL 8-26 GLUCOSE 241 mg/dL H 74-100 SODIUM 139 mmol/L 136-145 POTASSIUM 4.6 mmol/L 3.5-5.1 CHLORIDE 105 mmol/L 98-107 CO2 24 mmol/L 22-29 CALCIUM 9.1 mg/dL 8.4-10.2 MAGNESIUM 2.1 mg/dL 1.6-2.6 ANION GAP 10 mmol/L 5-15 ESTIMATED GFR(eGFR) 50 L >60 Feb 19, 2021 12:03 PM [facility] AST/SGOT Specim en Type: PLASMA No comment enter ed. Ordering Provid er: SAKSHI CROUCH Report Released Date/Time: January 17, 2021 05:13 PM Reporting Lab: [facility] [address] Performing Lab: [facility] [address] AST/SGOT 28 U/L <34 Feb 19, 2021 12:03 PM [facility] ALT/SGPT Specim en Type: PLASMA No comment enter ed. Ordering Provid er: SAKSHI CROUCH Report Released Date/Time: January 17, 2021 05:13 PM Reporting Lab: [facility] [address] [facility] [address] Performing Lab: [facility] [address] [facility] [address] ALT/SGPT 32 U/L <55 Feb 19, 2021 [facility] CREATININE(INCLUDES EGFR) Sp ecimen Type: PLASMA 12:03 PM No comment enter ed. Ordering Provid er: SAKSHI CROUCH Report Released Date/Time: January 17, 2021 05:13 PM Reporting Lab: [facility] [address] [facility] [address] Performing Lab: [facility] [address] [facility] [address] CREATININE 1.4 mg/dL H 0.7-1.2 ESTIMATED GFR(eGFR) 50 L >60 Feb 19, 2021 12:03 PM [facility] POTASSIUM Specim en Type: PLASMA No comment enter ed. Ordering Provid er: SAKSHI CROUCH Report Released Date/Time: January 17, 2021 05:13 PM Reporting Lab: [facility] [address] [facility] [address] Performing Lab: [facility] [address] [facility] [address] POTASSIUM 4.2 mmol/L 3.5-5.1 Feb 19, 2021 12:03 PM [facility] HEMOGLOBIN A1C Specim en Type: BLOOD No comment enter ed. Ordering Provid er: SAKSHI CROUCH Report Released Date/Time: January 17, 2021 05:13 PM Reporting Lab: [facility] [address] [facility] [address] Performing Lab: [facility] [address] [facility] [address] HEMOGLOBIN A1C 10.0 H 4.0-6.0 Social History: Smoking Status (Most current) and Tobacco Use (All prior to encounter date) This section includes the most current, and the historical, smoking and tobacco-related health factors from the OR facility where the Encounter took place.Current Smoking Status This section includes the most current smoking, or tobacco-related health factor, from the OR facility where the Encounter took place. Date/Time Current Smoking Status Comment Facility Mar 20, 2021 11:21 AM VA-VAAES TOBACCO USE CURRENT NRT [facility] DECLINE Tobacco Use History This section includes a history of the smoking, or tobacco- related health factors, that were collected on or before the date of the Encounter. The data comes from the OR facility where the Encounter took place. 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 [facility] Nov 15, 2020 10:00 AM VA-TOBACCO USE MED NO [place] [facility] Nov 15, 2020 10:00 AM VA-TOBACCO USER EVERY DAY [facility] Jun 21, 2019 02:29 PM VA-TOBACCO USE 30 YEARS OR MORE [facility] Jun 21, 2019 02:29 PM VA-TOBACCO USE ADVICE [place] [facility] Jun 21, 2019 02:29 PM 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 [facility] Jun 21, 2019 02:29 PM VA-TOBACCO USE MED NO [place] [facility] Jun 21, 2019 02:29 PM VA-TOBACCO USE WI 30 MIN OF WAKEUP [facility] Jun 21, 2019 02:29 PM VA-TOBACCO USER EVERY DAY [facility] Jun 09, 2018 03:48 PM VA-TOBACCO USE 30 YEARS OR MORE [facility] Jun 09, 2018 03:48 PM VA-TOBACCO USE ADVICE [place] [facility] Jun 09, 2018 03:48 PM 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 [facility] Jun 09, 2018 03:48 PM VA-TOBACCO USE MED NO [place] [facility] Jun 09, 2018 03:48 PM VA-TOBACCO USE [place] 30 MIN OF WAKEUP [facility] Jun 09, 2018 03:48 PM VA-TOBACCO USER EVERY DAY [facility] Jun 20, 2017 07:53 AM CURRENT TOBACCO USER [facility] Jun 19, 2016 08:41 AM CURRENT TOBACCO USER [facility] Jun 21, 2015 08:15 AM CURRENT TOBACCO USER [facility] Mar 22, 2014 10:03 AM CURRENT TOBACCO USER [facility] Mar 25, 2013 11:01 AM CURRENT TOBACCO USER [facility] Feb 05, 2012 08:55 AM CURRENT TOBACCO USER [facility] January 01, 2011 09:26 AM CURRENT TOBACCO USER [facility] Mar 07, 2010 10:02 AM CURRENT TOBACCO USER [facility] Feb 21, 2009 08:17 AM CURRENT TOBACCO USER [facility] Nov 06, 2007 10:02 AM CURRENT TOBACCO USER [facility] January 02, 2007 10:33 AM CURRENT TOBACCO USER [facility] Advance Directives: All historical and current Section Date Range: From patient's date of to the date document was created. This section includes ALL of a patient's completed or amended OR Advance and Rescinded Directives. The entries below indicate that a directive exists for the patient, but an actual copy is not included with this document. The data comes from all [facility]. Date Advance Directives Provider Source Mar 06, 2005 ADVANCE DIRECTIVE GANESH RODRIGUEZ [facility] Encounter Notes: All associated encounter notes This section contains the clinical notes associated to the Encounter. Date/Time Encounter Note(s) Provider Source Mar 23, 2021 02:00 DISCHARGE SUMMARY: RODO PINTO [facility] PM LOCAL TITLE: Discharge Summary STANDARD TITLE: DISCHARGE SUMMARY DICT DATE: MAR 23, 2021@11:53 ENTRY DATE: FEB 242020@11:53:59 DICTATED BY: RODO PINTO ATTENDING: Seamus SOLANO URGENCY: routine STATUS: COMPLETED Medicine Discharge Summary DRAFT UNTIL SIGNED BY ATTENDING MEDICINE DISCHARGE SUMMARY Date of Admission: 03/20 Date of Discharge: 03/23 HOSPITAL COURSE BY PROBLEM: Patient is a 75 year-old male with PMH including DM2, HTN, COPD, tobacco use, CAD s/p OK with angioplasty to RCA in 1993, s/p 3-vessel CABG 10/2010, ICM with single chamber ICD implanted 2011 for p rimary prevention. In December 2020, patient was admitted to OSH with multiple ICD shocks (6) and found to be in atrial fibrillation, a new diagnosis for h im. He was started on anticoagulation and rate-controlled. He also had some CHF and was digressed. An echocardiogram was done showing an ejection f raction of 23%. Dr. Villasenor saw patient in f/u and felt the e pisodes were likely inappropriate shocks due to AF with RVR, althoug h one of the tachycardia appears to be possible VT after ATP. Dr. Zohaib duran recommended dofetilide admission for rhythm control of AFib and consideration of PVI down the road. The following problems were addressed this hospi laura stay #Persistent atrial fibrillation [id number]: 5) s /p DCCV -Serial EGS's QTC 429 --(Dose 1)439 ---(Dose 2)4 92 --- (Dose 3) 465--- (Dose 4) 473 --(Dose 5) 490 - Dofetilide 250 mcg every 12 hours. - Converted to sinus rhythm with DC-cardioversio n (225V)(2 shocks 200 -- 225V) - Continue CHIEF SUSTAINABILITY OFFICER apixaban - D/c Dig per EP. #HFrEF 2/2 ICM s/p ICD #Stage C, class II - Volume: Euvolemic - GDMT: Entresto: Holding in the setting of increasing Scr with corelates with increase in dose of entresto per pharm recs. Consider going back to lisinopril at f/u with cards/PCP. - PRA Metop 37.5 qday - CHIEF SUSTAINABILITY OFFICER empa 25 qday #[place] Baseline Scr 1.1. Scr 1.6 on presentation. Rise corelates with increasing dose of entresto. Will hold entresto. - Follow up with PCP to decide on ACEI/ ARNI con tinuation. #T2DM - CHIEF SUSTAINABILITY OFFICER meds PERTINENT EXAM FINDINGS: Temperature: 98.2 F [36.8 C] (03/23/2021 08:45) Blood Pressure: 118/82 (03/23/2021 08:45) Pulse: 73 (03/23/2021 08:45) Respiration: 18 (03/23/2021 08:45) Pain: 0 (03/23/2021 08:45) General: NAD HEENT: [place] Cardio: RRR Lungs: Clear b/l Abd: Soft, non tender Extrem: No edema 30 minutes was spent on discharge care coordinat ion for this patient. Patients plan was discussed with attending physi kianna Dr. He /billy/ RODO PINTO MD RESIDENT Signed: 03/23/2021 12:06 /billy/ Seamus HE MD STAFF ANIMAL HOSPITAL CLERK Cosigned: 03/23/2021 17:47 Receipt Acknowledged By: * AWAITING SIGNATURE * WILLASAKSHI Mar 23, 2021 01:38 REPORT OF CONTACT: SYLVIA WESTFALL [facility] LOCAL TITLE: APPOINTMENT SCHEDULING NOTE STANDARD TITLE: REPORT OF CONTACT DATE OF NOTE: MAR 23, 2021@13:38 ENTRY DATE: MAR 23, 2021@13:38:19 AUTHOR: SYLVIA WESTFALL EXP COSIGNER: URGENCY: STATUS: COMPLETED APPOINTMENT SCHEDULING NOTE Has ADDENDA Post hospital appointment scheduling Attempt to schedule follow up visit: Patient discharging/discharged from [facility] with orders statin03/23/2021 06:58 New Order entered by Betina PINTO (RESIDENT) Order Text: Discharge Order Discharge Date: Feb Discharged to: Home 03/23/2021 06:58 New Order entered by Betina PINTO (RESIDENT) Order Text: Discharge Order Schedule Follow up Appt in Clinic (name & timef paul) :PCP in 1 week, Cards in 2 weeks. EP in 3 month s Other Follow Up Clinic Orders: With BMP in 1 week. If Scr improving Entresto m ay be the cause. Consider going back to ACEI Follow up orders needing clarification. There is no availability for a F2F visit in the timeframe indicated above. Please review patients chart and contact with a follow up call. PACT Team to address the need for Labs. Patient Assigned Care Team (PACT) notified as F CROATIAN /billy/ [facility] DISCHARGE LEAD MSA Signed: 03/23/2021 13:42 Receipt Acknowledged By: 03/23/2021 13:50 /billy/ EMERSON SKAGGS RN REGISTERED NURSE 04/03/2021 17:42 /es/ SAKSHI CROUCH MD STAFF PHYSICIAN 04/03/2021 ADDENDUM STATUS: COMPLETED I don't think the lab draw appt needed. Defer the entresto vs ACEI question to CHF clinic at this point. /billy/ SAKSHI CROUCH MD STAFF PHYSICIAN Signed: 04/03/2021 17:42 Mar 23, 2021 12:27 NURSING DISCHARGE NOTE: [facility]ORAN [place] [facility] LOCAL TITLE: [place] NURSING DISCHARGE SUMMARY STANDARD TITLE: NURSING DISCHARGE NOTE DATE OF NOTE: MAR 23, 2021@12:27 ENTRY DATE: MAR 23, 2021@12:27:39 AUTHOR: GILBERT DORAN EXP COSIGNER: URGENCY: STATUS: COMPLETED Nursing Discharge Summary Home Discharge date and time: Feb@1400 Accompanied by: Other (specify): friend Wheelchair Transportation: Other (specify): friend Verify that the Contact Name and Phone Number a re correct: PAUL MICHELE [phone] Yes Condition: Alert, Oriented Skin Condition: Intact Incision: No Education/Teach Back Patient and/or Caregiver was given casey informat ion in discharge instruction and able to teach back verbally or by return demonstration. Yes, demonstrated understanding Does patient have vascular access? Yes Peripheral IV Removed Does patient require assistance with outpatient visits due to cognitive limitations, mobility limitations, or has need for nursing assistance throughout the clinic day? Patient DOES NOT have an active YUVAL flag assigned. No /billy/ GILBERT DORAN RN STAFF NURSE Signed: 03/23/2021 14:37 Mar 23, 2021 12:10 EDUCATION DISCHARGE NOTE: GILBERT DORAN [facility] PM LOCAL TITLE: EDUCATION NURSING DISCHARGE INSTRU CTIONS STANDARD TITLE: EDUCATION DISCHARGE NOTE DATE OF NOTE: MAR 23, 2021@12:10 ENTRY DATE: MAR 23, 2021@12:10:59 AUTHOR: GILBERT DORAN EXP COSIGNER: URGENCY: STATUS: COMPLETED IF YOU HAVE A [facility] EMERGENCY CALL [phone] If you have questions about anything related to your inpatient care at the [facility] or your future care in the [facility], call the Call Center or After Hour numbers list ed below. If you receive care at another [place] facility or w ith a community provider, you will need to call them for questions about your future care. -Call Center Friday-Friday, 7:30-4:30 at or Toll Free -After Hours- toll-free -Outpatient Pharmacy - -Verification of Appointments for the following month - *'S CRISIS LINE NUMBER IS (TALK)* Discharge from ICU, Acute Care, Acute Rehab, or CLC C-SSRS Screening Payne Suicide Severity Rating Scale (C-SSRS) screener 1. Over the past month, have you wished you wer e or wished you could go to sleep and not wake up? No 2. Over the past month, have you had any actual thoughts of killing yourself? No 3. Over the past month, have you been thinking about how you might do this? Response not required due to responses to other questions. 4. Over the past month, have you had these thou ghts and had some intention of acting on them? Response not required due to responses to other questions. 5. Over the past month, have you started to wor k out or worked out the details of how to kill yourself? Response not required due to responses to other questions. 6. If yes, at any time in the past month did yo u intend to carry out this plan? Response not required due to responses to other questions. 7. In your lifetime, have you ever done anythin g, started to do anything, or prepared to do anything to end you r life (for example, collected pills, obtained a gun, gave away valuables, went to the roof but didn't jump)? No 8. If YES, was this within the past 3 months? Response not required due to responses to other questions. Written education reviewed and given on: Other diagnosis/instructions: A fibrillation s/ p dofetilide initiation Patient and/or other caregiver has had an oppor tunity to participate in the development of the discharge plan. The [facility] ent had an opportunity to ask questions. While in the hospital you were treated for: Atr ial fibrillation dofetilide initiation Primary Care Team: Primary Care Team: LAURI SEO Primary Care Provider: SAKSHI CROUCH No Associate Provider Assigned. Attending Physician: Seamus HE You are being discharged to: Home Phone number you can be contacted at for the ne xt 2 weeks: Your diet is regular Activity: No restrictions When you go home you will need: Treatments: None Supplies: None Continuing care needs: If you receive care at [place] you will nee d to call the Primary Care Call Center number at [phone] . If you receive care at another OR facility or ommunity provider, you will need to call them to arrange your follow u p care. Future appointments: 03/26/2021 09:00 [facility] PACT PHONE PHARM BLUE INTX TIENT APPOINTMENT 06/18/2021 12:45 [facility] 06/18/2021 13:30 [facility] CHF CONSULT BENIGNO 3D INPATI ENT APPOINTMENT 01/11/2022 15:00 [facility] EYE [facility]THALMOLOGY [facility] A copy of these instructions has been given to: Patient IM - Immunizations Immunization Series Date Facility Reaction Info COVID-19 (PFIZER), MRNA, LNP-S, P* 2 11/04/2020 [place] 1 10/14/2020 [place]* INFLUENZA (HISTORICAL) District O* No Site INFLUENZA, HIGH DOSE SEASONAL 06/20/2017 [place]* 06/19/2016 [place] INFLUENZA, SEASONAL, INJECTABLE,* 07/19/2019 [place] 2018 [place] 06/21/2015 [place] INFLUENZA, UNSPECIFIED FORMULATIO* H y[place] 09/28/2013 [place] 09/02/2012 [place] 07/10/2010 [place] 08/16/2009 [place] 07/12/2008 [place] 05/29/2007 [place] 06/05/2005 [place] 08/01/2004 [place] PNEUMOCOCCAL CONJUGATE PCV 13 06/21/2015 [place]* <C> PNEUMOCOCCAL, UNSPECIFIED FORMULA* 03/26/2013 [place]* <C> 08/01/2004 [place] TD(ADULT) UNSPECIFIED FORMULATION B 06/05/2005 [place] No Site TDAP 03/26/2013 [place] <C> ZOSTER RECOMBINANT 2 02/07/2020 [place]* 1 07/19/2019 [place] <C> See the Detailed [facility]IM] for Comments Copy of PROVIDERS DISCHARGE ORDERS Discharge Order Discharge Date: Feb Discharged to: Home Discharge Type: Hospital Discharge Provider Completing Summary: Noe Attending Physician: Neri Discharge Diagnosis: Persistent a-fib s/p dofit alide initiation Discharge Condition: Good Discharge Order Weight Bearing Restriction: No, Bathing Restriction: No, Activity Restriction: No, Diet: Regular NSAID/Aspirin Restriction (MED/Date to Resume): N/A Wound Condition: N/A Oxygen Needed for Transport? No Special Transportation Needs: None /es/ GILBERT DORAN, AIRCRAFT MECHANIC STRUCTURES NURSE Signed: 03/23/2021 14:37 Mar 23, 2021 11:41 CARDIOLOGY PROCEDURE NOTE: RUTH ARRIAZA [facility] LOCAL TITLE: CARDIOLOGY CARDIOVERSION PROCEDURE NOTE STANDARD TITLE: CARDIOLOGY PROCEDURE NOTE DATE OF NOTE: MAR 23, 2021@11:41 ENTRY DATE: MAR 23, 2021@11:42:12 AUTHOR: RUTH ARRIAZA EXP COSIGNER: URGENCY: STATUS: COMPLETED Responsible Staff Development Administrator: Dr. Liam pierre EKG - Pre procedure: atrial fibrillation Pre Procedure: Patient has been NPO since midnight. A responsible adult/designated petroleum transport driver accompanie s the patient. Name/Relationship: A time out was done to verify correct patient and procedure. Using full name, date of and social securi ty number identified the patient. The cardioversion proced ure was discussed with patient/family and verified to be correct. The patient/family was provided with appropriate education and ackn owledged understanding. Written informed consent was obtained from the p atient, using the [place] approved form. An informed conse nt progress note containing risks, benefits, and alternatives was documented. Procedure: Patient was brought to the anesthesia procedure room and placed on cardiac, blood pressure and oxygen monitors. The Bi-Phasic defibrillator was used with the multi- function electrodes in the anterior/posterior position. Following se dation per anesthesia, patient received 1 synchroni zed shock(s) @ 200 joules followed by an additional synchronized shock @ 225 joules Vital Signs stable throughout procedure Post Procedure: patient tolerated procedure well with return to normal sinus rhythm Patient tolerated procedure well, no complicatio ns. Dr. Varner was present throughout the ane sthesia and cardioversion procedure. Ruth Arriaza MD Physicist Cryogenics, PGY4 /es/ RUTH ARRIAZA MD CATERPILLAR MECHANIC Signed: 03/23/2021 11:47 Receipt Acknowledged By: * AWAITING SIGNATURE * Seamus HE Mar 23, 2021 11:41 ANESTHESIOLOGY OPERATIVE NOTE: MONET BOJORQUEZ [facility] LOCAL TITLE: ARK ANESTHESIA RECORD STANDARD TITLE: ANESTHESIOLOGY OPERATIVE NOTE DATE OF NOTE: MAR 23, 2021@11:41 ENTRY DATE: MAR 23, 2021@11:57 AUTHOR: MONET BOJORQUEZ EXP COSIGNER: URGENCY: STATUS: COMPLETED See [facility] for Full Anesthesia Record /es/ MONET BOJORQUEZ MD ANESTHESIOLOGIST Signed: 03/23/2021 11:57 Mar 23, 2021 11:16 CONSENT: [facility] LOCAL TITLE: CONSENT CLINICAL IMED STANDARD TITLE: CONSENT DATE OF NOTE: MAR 23, 2021@11:16:58 ENTRY DATE: MAR 23, 2021@11:17:05 AUTHOR: CARI HOLLOWAY EXP COSIGNER: URGENCY: STATUS: COMPLETED [facility] Imaging - Scanned Document Signature Informed Consent for Heart - Cardiove rsion (Cardioversion) 1. Anatomical Location: DCCV, pad placed anterio r/posterior 2. Informed consent was obtained at 11:11 AM on 03/23/21. The full consent document can be accessed [facility]. 3. Patient name: PAUL MICHELE 4. The patient HAS decision-making capacity. 5. Surrogate (if applicable): 6. Reason for the treatment (diagnosis, conditio n, or indication): Atrial fibrillation (AF). AF is a rapid heartbe at in the upper chambers of the heart. 7. Treatment/procedure: In this procedure, medic ine or an electrical shock is given. This helps restore the heart to a normal rhythm. Medications are given through a vein. An electrical shock is administe red after you are sedated. Your heart is monitored during the procedure. 8. Anesthesia will be administered. A member of the anesthesia care team will visit you before your treatment to discuss the t ype(s) of anesthesia you may need and to give you more in formation about anesthesia. It may become necessary to alter your anesthesia car e plan after this discussion. Devices may be applied to your body and placed in your veins and arteri es to monitor you during your anesthesia. All forms of anesthesia involve some risk. Minor (not life-threatening) risks incl ude: nausea, vomiting, and pain where an injection is given. Although rare, severe complications include: inj ury to blood vessels, drug reactions, bleeding, blood c lots, loss of sensation or limb function, infection, paralysis, stroke, brain damage, heart attack, a nd . Here is a basic description of the major types o f anesthesia including their risks in addition to those described above: General anesthesia involves drugs that are injec susanne into the bloodstream or breathed into the lungs. A t ube or other device may be inserted into your airway to help you breathe. The expected benefit is saray t you will be totally unconscious and you will not feel pain during the procedure. Additional risks include: injury to the teeth, throat, eyes, or lung. In less than one case in a thousand, patients may be aware of activities during their surgery. Spinal or epidural analgesia/anesthesia involves a drug being injected through a needle or catheter placed into the spinal shanice l. The expected benefit is a temporary decreased feeling in the area of surgical incision, allowing surgery to proceed without pain. Additional risks includ e: headache, backache, convulsions, persistent weak ness and or numbness, abnormal heart rhythms, and incomplete pain relief during the operation that may requir e general anesthesia. Major/minor nerve block involves a drug being in jected near nerves providing loss or reduction of sensati on and movement to the area. The expected benefit is a temporary loss of feeling and/or movem ent of a specific limb or area of your body. Additional risks include: convulsions, per sistent weakness and or numbness, and incomplete harika n relief during the operation that may require general anesthesia. Monitored anesthesia care involves monitoring of the heart and lungs to make sure that they are functioning adequately during your procedure. A local anesthetic will be injected to prevent pain, and the anesthesia care provider may use drugs to help you relax, and lessen any pain. Yo u may remain conscious throughout your procedure, or you may be given m edications that will make you unconscious. The expected benefit is that you will be comfort able during your operation with a minimum amount of anesthesia. This may re sult in a shorter stay in the hospital. Additional risks i nclude: incomplete pain relief during the operation that may require additional anesthesia. Convulsions from the injected drug are a rare but serious complication. 9. Consent to Blood Products (if applicable): It is not expected that blood products will be used in this treatment/procedure. 10. Practitioner obtaining consent: Ruth patel MD 11. Supervising practitioner: Seamus He MD 12. Practitioner(s) performing or supervising tr eatment/procedure (if not listed above): 13. Witness Name(s): 14. Comments: SCANNED DOCUMENT SIGNATURE NOT REQUIRED Electronically Filed: 03/23/2021 by: CARI HOLLOWAY Mar 23, 2021 10:34 CONSENT: [facility] TITLE: CONSENT CLINICAL IMED STANDARD TITLE: CONSENT DATE OF NOTE: MAR 23, 2021@10:34:07 ENTRY DATE: MAR 23, 2021@10:34:16 AUTHOR: CARI HOLLOWAY EXP COSIGNER: URGENCY: STATUS: COMPLETED [facility] - Scanned Document Signature Informed Consent for Heart - Cardiove rsion (Cardioversion) 1. Anatomical Location: External cardioversion 2. Informed consent was obtained at 10:29 AM on 03/23/21. The full consent document can be accessed [facility]. 3. Patient name: PAUL MICHELE 4. The patient HAS decision-making capacity. 5. Surrogate (if applicable): 6. Reason for the treatment (diagnosis, conditio n, or indication): Atrial fibrillation (AF). AF is a rapid heartbe at in the upper chambers of the heart. 7. Treatment/procedure: In this procedure, medic ine or an electrical shock is given. This helps restore the heart to a normal rhythm. Medications are given through a vein. An electrical shock is administe red after you are sedated. Your heart is monitored during the procedure. 8. Moderate sedation will be used. Medications w ill be administered to decrease anxiety and discomf ort during the treatment/procedure. These medications will be administered by a qualified practitioner. Pat ient response to some of these medications varies. Patients are e xpected to remain aware and responsive during the treatment or procedure. Minor risks o f moderate sedation include temporary amnesia or forgetf ulness and drowsiness. Moderate sedation can interfere with your ability to drive, operate machinery, or make important decisions for up to 24 hours. Medications used for moderate sedat ion can cause allergic reactions, respiratory depre ssion (this is when your breathing slows down and may stop), low blood pressure, a nd a slow or irregular heart beat. In rare instances these complications can caus e . Tell your health care team if you do not want to receive moderate sedation. 9. Consent to Blood Products (if applicable): It is not expected that blood products will be used in this treatment/procedure. 10. Practitioner obtaining consent: Ruth patel MD 11. Supervising practitioner: Seamus He MD 12. Practitioner(s) performing or supervising tr eatment/procedure (if not listed above): 13. Witness Name(s): 14. Comments: SCANNED DOCUMENT SIGNATURE NOT REQUIRED Electronically Filed: 03/23/2021 by: CARI HOLLOWAY Mar 23, 2021 07:17 NURSING NOTE: [facility] LOCAL TITLE: TELEMETRY CENTRALIZED NOTE STANDARD TITLE: NURSING NOTE DATE OF NOTE: MAR 23, 2021@07:17 ENTRY DATE: MAR 23, 2021@09:43:09 AUTHOR: FEI DUPONT EXP COSIGNER: URGENCY: STATUS: COMPLETED Telemetry (Cardiac) Monitor: Day Shift Telemetry initiation date/time: Feb@10: 45. Telemetry indication: known or potential for pr olonged QT Cardiac History: AFIB w/ RVR, ICM s/p ICD, CAD s/p CABG ICD VVI @ 40 Cardiac rhythm interpretation: ALUTTER w/ BBB, PVCs HR:52 ME Int:n/a QRS Int:.14 QT Int:.44 QTc Int:.41 Telemetry leads monitored this shift: II and V lead Alarm parameters verified this shift /es/ FEI Liriano [facility] ACO COORDINATOR Signed: 03/23/2021 09:44 Mar 22, 2021 11:05 NURSING NOTE: MICHELLE YOUNGER V [facility] LOCAL TITLE: TELEMETRY CENTRALIZED NOTE STANDARD TITLE: NURSING NOTE DATE OF NOTE: MAR 22, 2021@23:05 ENTRY DATE: MAR 23, 2021@05:32:38 AUTHOR: MICHELLE YOUNGER EXP COSIGNER: URGENCY: STATUS: COMPLETED Telemetry (Cardiac) Monitor: Insurance Coordinator Telemetry initiation date/time: Feb@10: 45. Telemetry indication: Initi ation of dofetolide w/potential for QT prolongation Cardiac History: CAD s/p CABG, ICM s/p ICD, HFr EF, A-Fib w/RVR ICD: VVI 40/-- Cardiac rhythm interpretation: A-Flutter w/vari able conduction, BBB, PVC's (HR this strip 37 to 106 BPM, inclusive of PVC' s) HR:60 ME Int:-- QRS Int:0.142 QT Int:0.45 QTc I nt:0.449 Telemetry leads monitored this shift: II and V lead Alarm parameters verified this shift Alarm parameters modified from default settings : 40 to 130 as directed by nursing previous shift /billy/ MICHELLE YOUNGER Drilling Rig Operator Signed: 03/23/2021 05:35 Mar 22, 2021 09:52 NURSING INPATIENT NOTE: STEVEN MAZARIEGOS [facility] LOCAL TITLE: [place] NURSING PROGRESS NOTE R STANDARD TITLE: NURSING INPATIENT NOTE DATE OF NOTE: MAR 22, 2021@21:52 ENTRY DATE: MAR 22, 2021@21:52:13 AUTHOR: STEVEN MAZARIEGOS EXP COSIGNER: URGENCY: STATUS: COMPLETED Nursing Shift Note Tour: Admitting Diagnosis: A-FIB,DOFETILIDE LOAD Service Branch: Feb, [place] Code Status: Full Code. Blood Pressure: 136/67 (03/22/2021 08:55) Heart Rate: 68 (03/22/2021 08:55) Respirations: 20 (03/22/2021 08:55) Temperature: 97.1 F [36.2 C] (03/22/2021 08:55) Pain: 0 (03/22/2021 08:55) (0-10 scale) Pulse Oximetry: 93 (03/22/2021 08:55) Weight: 231.2 lb [105.1 kg] (02/19/2021 12:45) FINGERSTICK GLUCOSE 197 H (03/22/21) Recent Labs: POTASSIUM 4.4 (03/21/21) SODIUM 140 (03/21/21) MAGNESIUM 2.3 (03/21/21) CALCIUM 9.0 (03/21/21) CREATININE 1.5 H (03/21/21) WBC 8.30 (10/27/20) HGB 16.7 (10/27/20) HCT 52.6 (10/27/20) PLT 78 L (10/27/20) PT____ INR____ CO2 24 (03/21/21) Shift Highlights: No acute changes this tour. Pt remains in a-fib/a-flutter. VSS. Pt still talking about going home today aft er planned cardioversion. 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, no edema noted TELE: A fib/A flutter (groundwater monitoring technician alarm par ameters verified) RESP: Denies SOB, LS CTAB, O2 Sats 95 - 98% on R A GI: Denies N/V, +BS x 4, non-tender abdomen, con tinent of bowel LBM: 03/22 DIET: NPO at midnight : Voids without issues, yellow, clear urine, c ontinent of urine INTEG: WNL PAIN: Denies ACTIVITY: Up adlib independently, ambulates occa sionally PIV: 20G LFA patent, saline locked Please see CPRS/ICIP/BCMA fo r VS, further clinical assessment, orders, labs and medications administration. SKIN REINSPECTION/REASSESSMENT SKIN INSPECTION Skin Color Color: Usual for ethnicity Skin Temperature Temp: Warm Skin Moisture Moisture: Dry Skin Turgor Turgor: Elastic (normal/immediate) INTERVENTIONS No change in previous interventions as listed b elow 03/20/2021 Pressure Ulcer Protocol NA - No Risk SKIN PATCHES The patient/resident has patches on the skin. tele RISK FACTORS THAT INCREASE RISK FOR DEVELOPING PRESSURE INJURIES The patient/resident does not have any spinal c ord injury, paralysis or neurologic disease. Pressure Ulcer/Injury Documentation from the al : No data available Intact /billy/ JOE SARMIENTO, RN, PHN REGISTERED NURSE Signed: 03/23/2021 06:27 Mar 22, 2021 05:14 NURSING INPATIENT NOTE: [facility] LOCAL TITLE: [facility] NURSING PROGRESS NOTE [facility] TITLE: NURSING INPATIENT NOTE DATE OF NOTE: MAR 22, 2021@17:14 ENTRY DATE: MAR 22, 2021@17:14:05 AUTHOR: DANI LANDRY [facility] EXP COSIGNER: URGENCY: STATUS: COMPLETED Nursing Shift Note Nursing care provided from [id number] Highlights from shift: Patient is alert and oriented x 4. Continent and independent in room. Tobacco cessation education was discussed but patient re fused to make any changes at this time. Dofetilide given at 1700. Patient wou ld like to leave tomorrow, 03/23 right after cardio aver ryan procedure. EKG done at 1900. VSS and call light is within reach. See ICCA for detailed assessment, Education pro vided on medication/cares this shift as needed SKIN REINSPECTION/REASSESSMENT SKIN INSPECTION Skin Color Color: Usual for ethnicity Skin Temperature Temp: Warm Skin Moisture Moisture: Dry Skin Turgor Turgor: Elastic (normal/immediate) Radames Skin Assessment The patient's Radames Scale Score is 23. The pat ient is considered not at risk for development of pressure ulcers/inju jorge. Sensory perception -- ability to respond meanin gfully to pressure-related discomfort No impairment. Moisture -- degree to which skin is exposed to moisture Rarely moist. Activity -- ability to change and control body position Walks frequently. Mobility -- ability to change and control body position No limitation. Nutrition -- usual food intake patterns Excellent. Friction and shear No apparent problem. INTERVENTIONS No change in previous interventions as listed b [facility] 03/20/2021 Pressure Ulcer Protocol NA - No Risk SKIN PATCHES The patient/resident has patches on the skin. telemetry RISK FACTORS THAT INCREASE RISK FOR DEVELOPING PRESSURE INJURIES The patient/resident does not have any spinal c ord injury, paralysis or neurologic disease. Pressure Ulcer/Injury Documentation from the banner year: No data available Intact Skin Interventions performed this shift: Patient kept clean and dry with barrier cream a pplied as ordered. /billy/ DANI LANDRY, RN REGISTERED NURSE Signed: 03/22/2021 19:35 Mar 22, 2021 03:05 NURSING NOTE: YANIRA MIRANDA [facility] LOCAL TITLE: TELEMETRY CENTRALIZED NOTE STANDARD TITLE: NURSING NOTE DATE OF NOTE: MAR 22, 2021@15:05 ENTRY DATE: MAR 22, 2021@19:21:37 AUTHOR: YANIRA MIRANDA EXP COSIGNER: URGENCY: STATUS: COMPLETED Telemetry (Cardiac) Monitor: Evening Shift Telemetry initiation date/time: Feb@10: 45. Telemetry indication: Known or Potential for Pr olonged QT, Initiation of Dofetilide Cardiac History: Afib w/RVR, ICM S/P ICD, CAD S /P CABG, HFrEF ICD: VVI @ 40 Cardiac rhythm interpretation: Aflutter w/varia ble conduction, BBB, and ventricular rates ranging 50-87 HR:71 ME Int:n/a QRS Int:.132 QT Int:.475 QTc Int:.516 Telemetry leads monitored this shift: II and V lead Alarm parameters verified this shift /billy/ YANIRA MIRANDA ELECTRODE TURNER AND FINISHER Signed: 03/22/2021 19:26 Mar 22, 2021 11:09 ANESTHESIOLOGY CONSULT: RICCI GONZALEZ [facility] AM LOCAL TITLE: ANESTHESIA PREOPERATIVE ASSESSMENT CONSULT STANDARD TITLE: ANESTHESIOLOGY CONSULT DATE OF NOTE: MAR 22, 2021@11:09 ENTRY DATE: MAR 22, 2021@11:09:47 AUTHOR: RICCI GONZALEZ EXP COSIGNER: URGENCY: STATUS: COMPLETED Preoperative Anesthesia Assessment Chief Complaint: 75 y/o MALE with BMI 30.2 for p reoperative anesthesia INPATIENT F2F visit. ----History of Present Illness PAUL MICHELE is scheduled for: Cardioversion on 03/23/21. If patient does not convert by tomorrow AM will proceed with cardioversion. Pt denies any concerns regarding anesthesia hx, but has responsibilitie s tomorrow night which he is concerned about missing. Other significant PMH: DM2, HTN, COPD, tobacco use, CAD s/p OK with angioplasty to RCA in 1993, s/p 3-vessel CABG 10/2010, ICM with single chamber ICD implanted 2011 for primary prevention. In December 2020, yuliana kennedy was admitted to OSH with multiple ICD shocks (6) and found to be in atria l fibrillation - AC started. ----Allergies [facility] LISINOPRIL ----VITAL SIGNS HR: 68 (03/22/2021 08:55) BP: 136/67 (03/22/2021 08:55) RR: 20 (03/22/2021 08:55) O2: 93 (03/22/2021 08:55) Temp: 97.1 F [36.2 C] (03/22/2021 08:55) HT: 73.5 in [186.7 cm] (02/19/2021 12:45) WT: 231.2 lb [105.1 kg] (02/19/2021 12:45) BMI: 30.2 ----Past Surgical History No personal or family history of anesthesia comp lications Other: atherectomy RCA in 1993 PTCA to RCA in 1993 CABG x3(2010) ICD implant 02/04/12 (Anes: QIAN 70mcg grabiel liriano) ----SOCIAL HISTORY Tobacco: Former Alcohol: No Substance use: No ----PAST MEDICAL HISTORY 1. Status post left inguinal hernia repair 2. Chronic low back pain 3. Thrombocytopenia 4. Chronic obstructive pulmonary disease - FEV1/FVC (05/2011) 2.47/3.46. FEV1 58% pred. FEV1% 70. 5. History of adenomatous polyp of colon 6. Type 2 diabetes mellitus 7. Hypertension 8. Coronary artery disease - S/P inferior OK in 1993. - S/P atherectomy RCA in 1993. - S/P CABG x 3 in 2010. 9. Chronic systolic heart failure - S/P ICD placement in 2011. - Echo (12/2020 ANW) EF 23%, LAE, mod global hyp okinesis. 10. Hyperlipidemia 11. Tobacco use 12. Cardiac defibrillator in situ 13. Peripheral neuropathy 14. Persistent atrial fibrillation ----DETAILED PAST MEDICAL HISTORY CARDIAC SYSTEM - HTN: BP (136-107/71-67) - HLD: on statin. - AF: on AC, Dofetilide initiated 03/22. Holding Dig per EP (Worsening Scr ) - CAD s/p OK with angioplasty to RCA in 1993, s/ p 3-vessel CABG 10/2010 - HFrEF (echo EF ~23% at [facility] 12/2020): Chronic - Cardiac Implanted Electrical Device (CIED): PATTI S ICM with single chamber ICD implanted 2011 for p rimary prevention Denies CP/worsening dyspnea/orthopnea/edema. RESPIRATORY SYSTEM - COPD: moderate - On 2L NC, however, did not place back on after up to bathroom and sats 93% on RA. EAR NOSE AND THROAT (ENT) SYSTEM - dentures GENITOURINARY SYSTEM - CKD: 3a ENDOCRINE SYSTEM/METABOLIC - Elevated BMI: 30.2 - DM Type 2: Currently on in patient Hypoglycemia protocol and Sliding scale. CHIEF SUSTAINABILITY OFFICER Empagliflozin 25 mg 1 table qday, Metformin 1000 mg BID, Glipizide 20 mg BID and Semaglutide weekly. HEMOGLOBIN A1C 10.0 H (02/19) INFECTIOUS DISEASE - COVID-19 vaccine complete: Immunization Series Date Facility Reaction Info COVID-19 ([employer]), MRNA, LNP-S, P* 2 11/04/2020 [facility] 1 10/14/2020 [facility]* 15-point review of systems completed and negativ e other than stated above. ----FUNCTIONAL CAPACITY IN M EASURE OF EXERCISE TOLERANCE BEFORE SURGERY (METS): METS: >4, Climbs 2 flights of stairs w/o CV sx. ----MEDICATIONS Active Inpatient Medications (including Supplies ): Active Inpatient Medications Status 1) ALBUTEROL INHL,ORAL 2 PUFFS INHL QID PRN For ACTIVE shortness of breath 2) APIXABAN TAB,ORAL 5MG PO Q12H ACTIVE 3) ASPIRIN TAB,EC 81MG PO QDAY ACTIVE 4) ATORVASTATIN TAB 40MG PO QHS ACTIVE 5) DEXTROSE 50% WATER (INPT) INJ,SOLN 25-50ML IV PRN ACTIVE Instructions too long. See order details for fu ll text. 6) DOFETILIDE CAP,ORAL 250MCG PO BID Give 05-17 per ACTIVE patient request. Please obtain EKG 2 hours afte r dose administered. 7) EMPAGLIFLOZIN TAB,ORAL 25MG PO QDAY ACTIVE 8) FLUTICASONE/SALMETEROL INHL,ORAL 1 PUFF INHL Q12H ACTIVE 9) FUROSEMIDE TAB 40MG PO QDAY ACTIVE 10) GABAPENTIN CAP,ORAL 600MG PO TID ACTIVE 11) GLUCAGON (INPT) INJ 1MG/1VIAL IM PRN Instruc tions ACTIVE too long. See order details for full text. 12) GLUCOSE SOLN (INPT) LIQUID 36ML-67.5ML PO ME N ACTIVE Instructions too long. See order details for fu ll text. 13) GLUCOSE TAB,CHEWABLE 20-32GM PO PRN Instruct ions too ACTIVE long. See order details for full text. 14) INSULIN ASPART (HUMAN) INJ LOW DOSE MEALTIME ACTIVE CORRECTION SQ DTID Low Dose (requiring less saray n 40 units/day) BG 201-250 2 units, BG 251-300 3 uni ts, BG 301-350 4 units, BG 351-400 5 units, BG >400 6 units 15) SALINE FLUSH INJ 10ML IV Q8H AFTER EACH USE, MINIMUM ACTIVE OF EVERY SHIFT. Naltrexone: No Buprenorphine: No Chronic opioid use: No. ---LABORATORY STUDIES Collection DT Specimen Test Name Result Units Re f Range 10/27/2020 09:36 BLOOD WBC 8.30 K/cmm 4.0 - 11.0 10/27/2020 09:36 BLOOD RBC 5.08 M/cmm 4.6 - 6.2 10/27/2020 09:36 BLOOD HGB 16.7 g/dL 13.5 - 17.9 10/27/2020 09:36 BLOOD HCT 52.6 % 41 - 54 10/27/2020 09:36 BLOOD MCV 103.5 H fL 80 - 100 10/27/2020 09:36 BLOOD MCH 32.9 pg 27 - 33 10/27/2020 09:36 BLOOD MCHC 31.7 L g/dL 32.0 - 3 7.5 10/27/2020 09:36 BLOOD PLT 78 L K/cmm 150 - 400 10/27/2020 09:36 BLOOD MPV 13.2 H fL 7.4 - 10.4 10/27/2020 09:36 BLOOD RDW 13.1 % 11.5 - 14.5 Collection DT Specimen Test Name Result Units Re f Range 03/21/2021 05:30 PLASMA GLUCOSE 207 H mg/dL 74 - 100 03/21/2021 05:30 PLASMA SODIUM 140 mmol/L 136 - 145 03/21/2021 05:30 PLASMA POTASSIUM 4.4 mmol/L 3.5 - 5.1 03/21/2021 05:30 PLASMA CHLORIDE 109 H mmol/L 98 - 107 03/21/2021 05:30 PLASMA CO2 24 mmol/L 22 - 29 03/21/2021 05:30 PLASMA ANION GAP 7 mmol/L 5 - 1 5 03/21/2021 05:30 PLASMA UREA NITROGEN 26 mg/dL 8 - 26 03/21/2021 05:30 PLASMA CREATININE 1.5 H mg/dL 0 .7 - 1.2 03/21/2021 05:30 PLASMA ALBUMIN 3.5 g/dL 3.5 - 5 .2 03/21/2021 05:30 PLASMA CALCIUM 9.0 mg/dL 8.4 - 10.2 02/19/2021 12:03 PLASMA AST/SGOT 28 U/L Ref: <=3 4 02/19/2021 12:03 PLASMA ALT/SGPT 32 U/L Ref: <=5 5 ESTIMATED GFR(eGFR) 46 L (03/21/21) MAGNESIUM 2.3 (03/21/21) Collection DT Spec HGBA1C 02/19/2021 12:03 BLOOD 10.0 H 10/27/2020 09:36 BLOOD 9.5 H 07/19/2019 08:18 BLOOD 8.2 H ----DIAGNOSTIC STUDIES - EKG (03/22/21): AF PVCs, septal infarct (HR 72) Compared to previous: no significant change - EKG (03/21/21): AF PVCs (HR 69) - PULMONARY FUNCTION TEST 11/06/2007: UNITS PRED ACTUAL %PRED PREV1 PREV2 CI FLOWS........................................................................... STANDARD STUDY FVC L 5.29 3.35 63.4 FEV1 L 4.00 2.40 60.0 PF L/SEC 8.230 4.680 56.9 5.26 [id number] L/SEC 3.636 2.040 56.1 1.97 FEV1/FVC % 72 AFTER BRONCHODILATOR FVC L 5.29 3.95 74.7 FEV1 L 4.00 2.93 73.3 PF L/SEC 8.230 7.920 96.2 5.26 [id number] L/SEC 3.636 2.280 62.7 1.97 FEV1/FVC % 74 INTERPRETATION: Probable obstruction: FEV1/FVC r atio<predicted and FEV1 <CI. Lung Volumes may be required to distinguish obs truction from restriction, if clinically indicated. Moderate ( Fev1 >=50% and <80% ref )Bronchodilator response: < 30% increa se does not exclude Asthma and should not be used to guide Rx. - FEV1/FVC (05/2011 ANW)2.47/3.46. FEV1 58% pred . FEV1% 70. - Echocardiogram 01/11/21: 1. Severely increased left ventricular size, mil dly increased wall thickness, severely reduced global systolic function, calcu lated EF of 23 %. 2. Mildly enlarged left atrium. 3. Right ventricular cavity size is normal, glob al systolic RV function is moderately reduced. 4. The aortic valve is trileaflet and sclerotic, no stenosis and no regurgitation. 5. The mitral valve is normal, mild to moderate mitral regurgitation. 6. Mild-moderate tricuspid regurgitation 7. Echo contrast was administered to enhance vis ualization of all left ventricular segments. - CARDIAC CATH (05/2011 ANW) LM 75%, LAD 30%, R1 80%, CX 80% ostial, 75% mid at Om1 bifurcation, RCA 35% prox and distal. EF 35% by LV gram. - Thallium: 05/2007 Impression: Left ventricular ejection fraction is 41 %. No focal wall motion abnormality. ----Risk Stratification CAPRINI score: 7 (High VTE risk, 6.0%) ---Physical Exam Airway Exam: Mallampati Class: I Mouth opening: full Neck: full range of motion Thyromental distance: >6cm. Dentition: dentures Cardiac System: Cardiovascular exam normal: irregular rhythm an d rate, no murmur. Respiratory: Clear to auscultation, normal respiratory rate and effort. on RA. Mental/Neuro exam: Alert, oriented, calm, cooperative. ---EDUCATION Verbal instruction given to patient: NPO instruction: NPO after midnight Additional anesthetic preparation and risk discu ssed: - KYMA - A-line - Anesthesia team - IV access - Monitoring - Positioning - Pre/post op expectations ----ASSESSMENT/PLAN Yes-History and physical: 03/22/21 cardiology in t N/A-Antibiotics ordered: not found-Type & Screen/Cross This is a 75 y/o undergoing evaluation for cardi oversion w/ PMH as listed above. The risks pertaining to anesthesia and flynn rgery are outlined below. 1. Cardiac: Hx of CAD s/p OK with angioplasty to RCA in 1993, s/p 3-vessel CABG 10/2010, AF on AC, HFrEF (echo EF ~23%) Anesthesia to be aware, monitor hemodynamics hugo sely perioperatively and maintain euvolemic state as tolerated. Consider post-op troponins/EKG as needed. 2. Pulmonary: Hx of moderate COPD and elevated B OK (30.2). - Anesthesia to be aware, risk for respi ratory complications, hypoventilation, consider use of duoneubulize r preoperatively, consider minimizing use of opioids & benzodiazepines as well as other medications causing respiratory suppression. 3. Endocrine: DMT2 Currently on inpatient hypogl ycemia protocol and sliding scale. Final decision to be made per Anesthesia team regarding use of perioperative insulin protoc ol (consider usual) for hyperglycemia as indicated. 4. Renal: CKD stage 3a, GFR 46, CREATININE 1.5 H (03/21/21) Avoid nephrotoxic medications as tolerated. Anesthesia Plan: Final plan TBD by anesthesia an d surgical teams on DOSTamera /billy/ RICCI GONZALEZ NP NURSE PRACTITIONER Signed: 03/22/2021 12:03 Mar 22, 2021 10:23 CARDIOLOGY INPATIENT NOTE: RODO PINTO [facility] TITLE: CARDIOLOGY INPT PROGRESS NOTE STANDARD TITLE: CARDIOLOGY INPATIENT NOTE DATE OF NOTE: MAR 22, 2021@10:23 ENTRY DATE: MAR 22, 2021@10:23:48 AUTHOR: RODO PINTO EXP COSIGNER: URGENCY: STATUS: COMPLETED INPATIENT PROGRESS NOTE Assessment/Plan: Patient is a 75 year-old male with PMH including DM2, HTN, COPD, tobacco use, CAD s/p OK with angioplasty to RCA in 1993, s/p 3-vessel CABG 10/2010, ICM with single chamber ICD implanted 2011 for prima ry prevention. In December 2020, patient was admitted to OSH with multiple ICD sh ocks (6) and found to be in atrial fibrillation, a new d iagnosis for him. He was started on anticoagulation and rate-controlled. He also had some CHF and wa s diuresed. An echocardiogram was done showing an ejection fraction of 23%. Dr. Villasenor saw patient in f/u and felt the episodes were likely in appropriate shocks due to AF with RVR, although one of the tachycardia appears to be po ssible VT after ATP. Dr. Villasenor recommended dofetilide ad mission for rhythm control of AFib and consideration of PVI down the road. Changes today - Serial EGS's QTC 429 --(Do se 1)439 ---(Dose 2)492 --- (Dose 3) 465--- (Dose 4) 473 - Still in A-fib. - Will repeat EKG after dose 3. Plan to stop dof etilide if QTC>550. - Will plan to cardiovert if patient does not co nvert to NSR. - Vivian consulted, Aware for possible cardi oversion in the AM. - AM BMP, MG. #Persistent atrial fibrillation [id number]: 5) - Start Dofetilide 250 mcg every 12 hours. Plan for a total of 5 monitored inpatient doses. - EKGs 2 hours after each dose to evaluate QTc. 1st dose only: If QTc increases by <=15%, con tinue current dose of Dofetilide. If QTc increases by >15% or is >550 msec (given RBBB), decrease dose of Dofetilide to 125 mcg BID. Doses 2-5: Dofetilide karen uld be discontinued if at any time after the second dose the QTc increases to >550 msec (ventricula r conduction abnormalities (i.e paced rhythm, bundle branch block or IVCD)). - If pt. does not convert to sinus rhythm after full Dofetilide load, will perform DC-cardioversion. - Continue CHIEF SUSTAINABILITY OFFICER apixaban, pt denies any m issed doses in last 30 days, so no GIRMA needed - Hold Dig per EP ( Worsening Scr ) #HFrEF 2/2 ICM s/p ICD #Stage C, class II - Volume: Euvolimic - GDMT: Entresto: Hol ding in the setting of increasing Scr with corelates with increase in dose of entresto per pharm recs . Metop 37.5 qday ( Holding in the setting of dof etilide load) empa 25 qday Not on MRA. #[place] Baseline Scr 1.1. Scr 1.6 on presentatio n. Rise corelates with increasing dose of entresto. Will hold entresto for now. #T2DM - Hypoglycemia protocol - Sliding scale Deep Vein Thrombosis (DVT) Prophylaxis: On A/C Code Status: Full I have seen and discussed the patient with my a ttending, DrMarbin Subjective: Denies CP, nausea, palpitations. Eger to be dis charched on Mart[place]. Objective: General: NAD HEENT: KHUSHBOO Cardio: A-fib Lungs: Clear b/l Abd: Soft, non tender Extrem: No edema Active Medications: Active Inpatient Medications (including Supplie s): Active Inpatient Medications Status 1) ALBUTEROL INHL,ORAL 2 PUFFS INHL QID PRN For ACTIVE shortness of breath 2) APIXABAN TAB,ORAL 5MG PO Q12H ACTIVE 3) ASPIRIN TAB,EC 81MG PO QDAY ACTIVE 4) ATORVASTATIN TAB 40MG PO QHS ACTIVE 5) DEXTROSE 50% WATER (INPT) INJ,SOLN 25-50ML I V PRN ACTIVE Instructions too long. See order details for fu ll text. 6) DOFETILIDE CAP,ORAL 250MCG PO BID Give 05-17 per ACTIVE patient request. Please obtain EKG 2 hours afte r dose administered. 7) EMPAGLIFLOZIN TAB,ORAL 25MG PO QDAY ACTIVE 8) FLUTICASONE/SALMETEROL INHL,ORAL 1 PUFF INHL Q12H ACTIVE 9) FUROSEMIDE TAB 40MG PO QDAY ACTIVE 10) GABAPENTIN CAP,ORAL 600MG PO TID ACTIVE 11) GLUCAGON (INPT) INJ 1MG/1VIAL IM PRN Instru ctions ACTIVE too long. See order details for full text. 12) GLUCOSE SOLN (INPT) LIQUID 36ML-67.5ML PO P RN ACTIVE Instructions too long. See order details for fu ll text. 13) GLUCOSE TAB,CHEWABLE 20-32GM PO PRN Instruc tions too ACTIVE long. See order details for full text. 14) INSULIN ASPART (HUMAN) INJ LOW DOSE MEALTIM E ACTIVE CORRECTION SQ DTID Low Dose (requiring less saray n 40 units/day) BG 201-250 2 units, BG 251-300 3 uni ts, BG 301-350 4 units, BG 351-400 5 units, BG >400 6 units 15) SALINE FLUSH INJ 10ML IV Q8H AFTER EACH USE , MINIMUM ACTIVE OF EVERY SHIFT. Labs: - INR: INR - NONE FOUND - Complete Blood Count White count: WBC 8.30 (10/27/20) Hemoglobin: HGB 16.7 (10/27/20) Hematocrit: HCT 52.6 (10/27/20) Platelets: PLT 78 L (10/27/20) - Complete Metabolic Panel SODIUM 140 (03/21/21) POTASSIUM 4.4 (03/21/21) CHLORIDE 109 H (03/21/21) CO2 24 (03/21/21) UREA NITROGEN 26 (03/21/21) CREATININE 1.5 H (03/21/21) GLUCOSE 207 H (03/21/21) CALCIUM 9.0 (03/21/21) MAGNESIUM 2.3 (03/21/21) ESTIMATED GFR(eGFR) 46 L (03/21/21) AST/SGOT 28 (02/19/21) ALT/SGPT 32 (02/19/21) ALK PHOSPHATASE____ ALBUMIN 3.5 (03/21/21) BILIRUBIN, TOTAL____ /es/ RODO PINTO MD RESIDENT Signed: 03/22/2021 10:28 Mar 22, 2021 09:14 PASTORAL CARE NOTE: [facility] LOCAL TITLE: PROFESSIONAL ORGANIZER-VISITATION NOTE STANDARD TITLE: PASTORAL CARE NOTE DATE OF NOTE: MAR 22, 2021@09:14 ENTRY DATE: MAR 22, 2021@09:14:03 AUTHOR: MATI GALICIA EXP COSIGNER: URGENCY: STATUS: COMPLETED Pastoral visit. The patient was busy with staff. /es/ FATHER MATI PANTERATonio GALICIA CHIEF, PROFESSIONAL ORGANIZER SERVICE Signed: 03/22/2021 09:14 Mar 22, 2021 09:13 NURSING INPATIENT NOTE: [facility] LOC[facility] TITLE: [place] NURSING PROGRESS NOTE STANDARD TITLE: NURSING INPATIENT NOTE DATE OF NOTE: MAR 22, 2021@09:13 ENTRY DATE: MAR 22, 2021@09:13:40 AUTHOR: GILBERT DORAN EXP COSIGNER: URGENCY: STATUS: COMPLETED Admitting DX: A-FIB,DOFETILIDE LOAD Blood Pressure: 136/67 (03/22/2021 08:55) Heart Rate: 68 (03/22/2021 08:55) Respirations: 20 (03/22/2021 08:55) Temperature: 97.1 F [36.2 C] (03/22/2021 08:55) Pain: 0 (03/22/2021 08:55) Pulse Oximetry: 93 (03/22/2021 08:55) FINGERSTICK GLUCOSE 214 H (03/21/21) Recent Labs: PT____ INR - NONE FOUND POTASSIUM 4.4 (03/21/21) SODIUM 140 (03/21/21) MAGNESIUM 2.3 (03/21/21) WBC 8.30 (10/27/20) HGB 16.7 (10/27/20) HCT 52.6 (10/27/20) CREATININE 1.5 H (03/21/21) NEURO: Alert & Oriented x 4, calm & coop erative with cares, able to make needs known, uses call light appropriately, pt hoping that he can go to CARDIO: Denies C/P, no edema noted, 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 TELE: A flutter 2:1, 4:1 RESP: Denies SOB, LS clear t o decrease, non-labored breathing, O2 sats 93% on 2L via NC, taken off this a.m., low - mid 90s GI: Denies N/V, BS active x 4, non-tender abdomen, continent of bowel, LBM: 03/21 DIET: REGULAR - sitting up to edge of bed to eat breakfast and lunch : Voids without issues, yellow, clear urine, c ontinent of urine PAIN: Denies ACTIVITY: Up adlib independently, ambulates freq uently in room PIV: 20G L FA patent, saline locked SKIN REINSPECTION/REASSESSMENT SKIN INSPECTION Skin Color Color: Usual for ethnicity Skin Temperature Temp: Warm Skin Moisture Moisture: Dry Skin Turgor Turgor: Elastic (normal/immediate) Radames Skin Assessment The patient's Radames Scale Score is 19. The pat ient is considered not at risk for development of pressure ulcers/injurie s. Sensory perception -- ability to respond meanin gfully to pressure-related discomfort Slightly limited. Moisture -- degree to which skin is exposed to moisture Occasionally moist. Activity -- ability to change and control body position Walks occasionally. Mobility -- ability to change and control body position No limitation. Nutrition -- usual food intake patterns Adequate. Friction and shear No apparent problem. INTERVENTIONS No change in previous interventions as listed b [facility] 03/20/2021 Pressure Ulcer Protocol NA - No Risk SKIN PATCHES The patient/resident has patches on the skin. tele RISK FACTORS THAT INCREASE RISK FOR DEVELOPING PRESSURE INJURIES The patient/resident does not have any spinal c ord injury, paralysis or neurologic disease. Pressure Ulcer/Injury Documentation from the al st year: No data available Intact Please see ICIP for further detailed assessmen ts and BCMA for medication Administrations /billy/ GILBERT DORAN, AIRCRAFT MECHANIC STRUCTURES NURSE Signed: 03/22/2021 15:24 Mar 22, 2021 07:01 NURSING NOTE: FEI DUPONT V [facility] LOCAL TITLE: TELEMETRY CENTRALIZED NOTE STANDARD TITLE: NURSING NOTE DATE OF NOTE: MAR 22, 2021@07:01 ENTRY DATE: MAR 22, 2021@09:14:50 AUTHOR: FEI DUPONT EXP COSIGNER: URGENCY: STATUS: COMPLETED Telemetry (Cardiac) Monitor: Day Shift Telemetry initiation date/time: Feb@10: 45. Telemetry indication: known or potential for pr olonged QT Cardiac History: AFIB w/ RVR, CAD s/p CABG ICD VVI @ 40 Cardiac rhythm interpretation: AFLUTTER w/ BBB, PVCs HR:67 ME Int:n/a QRS Int:.14 QT Int:.53 QTc Int:.56 Telemetry leads monitored this shift: II and V lead Alarm parameters verified this shift /billy/ FEI DUPONT ACO COORDINATOR Signed: 03/22/2021 09:18 Mar 22, 2021 01:46 NURSING INPATIENT NOTE: ROHAN LAWRENCE [facility] AM [facility] TITLE: [place]ATINA NURSING PROGRESS NOTE STANDARD TITLE: NURSING INPATIENT NOTE DATE OF NOTE: MAR 22, 2021@01:46 ENTRY DATE: MAR 22, 2021@01:46:47 AUTHOR: ROHAN LAWRENCE EXP COSIGNER: URGENCY: STATUS: COMPLETED Nursing Shift Note Tour: [id number] Admitting Diagnosis: A-FIB,DOFETILIDE LOAD Code Status: Full Code. Shift Highlights: -Gave pt 4th dose of Dofetilide at 0500. Complet ed EKG at 0700, QTc 473 -Pt asked about DC plan. Informed pt of 5th Dofe tilide dose. Encouraged pt to speak with provider. 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 TELE: A Fib w/ frequent PVCs RESP: SOB on exertion, LS diminished, O2 Sats 91 - 95% on 2L NC GI: Denies N/V, +BS x 4, non-tender abdomen, con tinent of bowel LBM: 03/21/2021 DIET: Regular : Voids without issues, yellow, clear urine, c ontinent of urine INTEG: WNL PAIN: Denies ACTIVITY: Up adlib independe ntly, ambulates occasionally, working on word search puzzle PIV: 20G LFA patent, saline locked SAFETY: Falls risk interventions in plac e: call light within reach, side rails up x2, purposeful rounding, non-slip socks on fe et SKIN Skin Interventions performed this shift: Patient turned [id number] or as appropriate while in bed. Patient kept clean and dry. Device(s) removed and skin underneath was inspe cted. Head of Bed kept below 30 degrees unless otherw ise ordered. Please see CPRS/ICIP/BCMA fo r VS, further clinical assessment, orders, labs and medications administration. /billy/ ROHAN LAWRENCE RN, BSN, PHN Signed: 03/22/2021 07:15 Mar 22, 2021 01:38 NURSING INPATIENT NOTE: HOWARD GARRISON [facility] AM LOCAL TITLE: [place]INA NURSING PROGRESS NOTE STANDARD TITLE: NURSING INPATIENT NOTE DATE OF NOTE: MAR 22, 2021@01:38 ENTRY DATE: MAR 22, 2021@01:38:15 AUTHOR: HOWARD GARRISON EXP COSIGNER: URGENCY: STATUS: COMPLETED Shift: [id number] NEURO: Alert, oriented X4, makes needs known. CARDIO: Telemetry shows a-fi b with frequent PVCs, HR 50s-60s. Denies chest pain, dizziness, shortness of breath. BP 100/55. No ed bolivar noted. RESP: Lung sounds decreased, breathing nonlabore d. Satting low-mid 90s% on 2L nasal cannula. GI: Last BM 03/21 : Continent ACTIVITY: Independent with cares and ambulating IV: 20G LFA SKIN Skin Interventions performed this shift: Patient turned [id number] or as appropriate while in bed. Head of Bed kept below 30 degrees unless otherw ise ordered. /billy/ HOWARD GARRISON RN RN Signed: 03/22/2021 01:41 Mar 21, 2021 10:51 NURSING NOTE: NERY HARRINGTON [facility] LOCAL TITLE: TELEMETRY CENTRALIZED NOTE STANDARD TITLE: NURSING NOTE DATE OF NOTE: MAR 21, 2021@22:51 ENTRY DATE: MAR 22, 2021@00:39:31 AUTHOR: NERY HARRINGTON EXP COSIGNER: URGENCY: STATUS: COMPLETED TELEMETRY CENTRALIZED NOTE Has ADDENDA Telemetry (Cardiac) Monitor: Insurance Coordinator Telemetry initiation date/time: Feb@10: 56. Telemetry indication: known or potential for pr olonged QT Cardiac History: AFIB w/ RVR, ICM s/p ICD ICD VVI@40 Cardiac rhythm interpretation: Atrial F lutter with variable conduction ratio; bigeminal PVC's; BBB HR:69 ME Int:-- QRS Int:.14 QT Int:.48 QTc Int:.51 Telemetry leads monitored this shift: II and V lead Alarm parameters verified this shift /eb HARRINGTON HVAC MECHANIC Signed: 03/22/2021 00:41 03/22/2021 ADDENDUM STATUS: COMPLETED 03/21/21 @ 19:40pm- RN was notified of 7 beat run s of Vtach /billy/ NERY KARIBON HARRINGTON HVAC MECHANIC Signed: 03/22/2021 01:00 Mar 21, 2021 03:07 NURSING NOTE: FEI DUPONT [facility] LOCAL TITLE: TELEMETRY CENTRALIZED NOTE STANDARD TITLE: NURSING NOTE DATE OF NOTE: MAR 21, 2021@15:07 ENTRY DATE: MAR 21, 2021@17:20:29 AUTHOR: FEI DUPONT EXP COSIGNER: URGENCY: STATUS: COMPLETED Telemetry (Cardiac) Monitor: Evening Shift Telemetry initiation date/time: Feb@10: 56. Telemetry indication: known or potential for pr olonged QT Cardiac History: AFIB w/ RVR, ICM s/p ICD ICD VVI @ 40 Cardiac rhythm interpretation: AFLUTTER w/ BBB, PVCs HR:56 ME Int:n/a QRS Int:.14 QT Int:.40 QTc Int:.42 Telemetry leads monitored this shift: II and V lead Alarm parameters verified this shift /billy/ FEI DUPONT ACO COORDINATOR Signed: 03/21/2021 17:22 Mar 21, 2021 10:14 CARDIOLOGY INPATIENT NOTE: RODO PINTO [facility] LOCAL TITLE: CARDIOLOGY INPT PROGRESS NOTE STANDARD TITLE: CARDIOLOGY INPATIENT NOTE DATE OF NOTE: MAR 21, 2021@10:14 ENTRY DATE: MAR 21, 2021@10:14:30 AUTHOR: RODO PINTO EXP COSIGNER: URGENCY: STATUS: COMPLETED INPATIENT PROGRESS NOTE Assessment/Plan: Patient is a 75 year-old male with PMH including DM2, HTN, COPD, tobacco use, CAD s/p OK with angioplasty to RCA in 1993, s/p 3-vessel CABG 10/2010, ICM with single chamber ICD implanted 2011 for prima ry prevention. In December 2020, patient was admitted to OSH with multiple ICD sh ocks (6) and found to be in atrial fibrillation, a new d iagnosis for him. He was started on anticoagulation and rate-controlled. He also had some CHF and wa s diuresed. An echocardiogram was done showing an ejection fraction of 23%. Dr. Villasenor saw patient in f/u and felt the episodes were likely in appropriate shocks due to AF with RVR, although one of the tachycardia appears to be po ssible VT after ATP. Dr. Villasenor recommended dofetilide ad mission for rhythm control of AFib and consideration of PVI down the road. Changes today - Serial EGS's QTC 429 --(Dose 1)439 ---(Dose 2) 492 - Still in A-fib. - Will repeat EKG after dose 3. Plan to stop dof etilide if QTC>550. - Will plan to cardiovert if patient does not co nvert to NSR. #Persistent atrial fibrillation [id number]: 5) - Start Dofetilide 250 mcg every 12 hours. Plan for a total of 5 monitored inpatient doses. - EKGs 2 hours after each dose to evaluate QTc. 1st dose only: If QTc increases by <=15%, con tinue current dose of Dofetilide. If QTc increases by >15% or is >550 msec (given RBBB), decrease dose of Dofetilide to 125 mcg BID. Doses 2-5: Dofetilide karen uld be discontinued if at any time after the second dose the QTc increases to >550 msec (ventricula r conduction abnormalities (i.e paced rhythm, bundle branch block or IVCD)). - If pt. does not convert to sinus rhythm after full Dofetilide load, will perform DC-cardioversion. - Continue CHIEF SUSTAINABILITY OFFICER apixaban, pt denies any m issed doses in last 30 days, so no GIRMA needed - Hold Dig per EP ( Worsening Scr ) #HFrEF 2/2 ICM s/p ICD #Stage C, class II - Volume: Euvolimic - GDMT: Entresto: Hol ding in the setting of increasing Scr with corelates with increase in dose of entresto per pharm recs . Metop 37.5 qday ( Holding in the setting of dof etilide load) empa 25 qday Not on MRA. #[place] Baseline Scr 1.1. Scr 1.6 on presentatio n. Rise corelates with increasing dose of entresto. Will hold entresto for now. #T2DM - Hypoglycemia protocol - Sliding scale Deep Vein Thrombosis (DVT) Prophylaxis: On A/C Code Status: Full I have seen and discussed the patient with my a ttending, Subjective: Denies CP, nausea, palpitations. Eger to be dis charched on [place]. Objective: General: NAD HEENT: KHUSHBOO Cardio: A-fib Lungs: Clear b/l Abd: Soft, non tender Extrem: No edema Active Medications: Active Inpatient Medications (including Supplie s): Active Inpatient Medications Status 1) ALBUTEROL INHL,ORAL 2 PUFFS INHL QID PRN For ACTIVE shortness of breath 2) APIXABAN TAB,ORAL 5MG PO Q12H ACTIVE 3) ASPIRIN TAB,EC 81MG PO QDAY ACTIVE 4) ATORVASTATIN TAB 40MG PO QHS ACTIVE 5) DEXTROSE 50% WATER (INPT) INJ,SOLN 25-50ML I V PRN ACTIVE Instructions too long. See order details for fu ll text. 6) DOFETILIDE CAP,ORAL 250MCG PO BID Give 05-17 per ACTIVE patient request. Please obtain EKG 2 hours afte r dose administered. 7) EMPAGLIFLOZIN TAB,ORAL 25MG PO QDAY ACTIVE 8) FLUTICASONE/SALMETEROL INHL,ORAL 1 PUFF INHL Q12H ACTIVE 9) FUROSEMIDE TAB 40MG PO QDAY ACTIVE 10) GABAPENTIN CAP,ORAL 600MG PO TID ACTIVE 11) GLUCAGON (INPT) INJ 1MG/1VIAL IM PRN Instru ctions ACTIVE too long. See order details for full text. 12) GLUCOSE SOLN (INPT) LIQUID 36ML-67.5ML PO P RN ACTIVE Instructions too long. See order details for fu ll text. 13) GLUCOSE TAB,CHEWABLE 20-32GM PO PRN Instruc tions too ACTIVE long. See order details for full text. 14) INSULIN ASPART (HUMAN) INJ LOW DOSE MEALTIM E ACTIVE CORRECTION SQ DTID Low Dose (requiring less saray n 40 units/day) BG 201-250 2 units, BG 251-300 3 uni ts, BG 301-350 4 units, BG 351-400 5 units, BG >400 6 units 15) SALINE FLUSH INJ 10ML IV Q8H AFTER EACH USE , MINIMUM ACTIVE OF EVERY SHIFT. Labs: - INR: INR - NONE FOUND - Complete Blood Count White count: WBC 8.30 (10/27/20) Hemoglobin: HGB 16.7 (10/27/20) Hematocrit: HCT 52.6 (10/27/20) Platelets: PLT 78 L (10/27/20) - Complete Metabolic Panel SODIUM 140 (03/21/21) POTASSIUM 4.4 (03/21/21) CHLORIDE 109 H (03/21/21) CO2 24 (03/21/21) UREA NITROGEN 26 (03/21/21) CREATININE 1.5 H (03/21/21) GLUCOSE 207 H (03/21/21) CALCIUM 9.0 (03/21/21) MAGNESIUM 2.3 (03/21/21) ESTIMATED GFR(eGFR) 46 L (03/21/21) AST/SGOT 28 (02/19/21) ALT/SGPT 32 (02/19/21) ALK PHOSPHATASE____ ALBUMIN 3.5 (03/21/21) BILIRUBIN, TOTAL____ /es/ RODO PINTO MD RESIDENT Signed: 03/21/2021 10:23 Mar 21, 2021 10:12 NURSING INPATIENT NOTE: KORI ESCALERA [facility] LOCAL TITLE: KATINA NURSING PROGRESS NOTE STANDARD TITLE: NURSING INPATIENT NOTE DATE OF NOTE: MAR 21, 2021@10:12 ENTRY DATE: MAR 21, 2021@10:13:03 AUTHOR: KORI ESCALERA EXP COSIGNER: URGENCY: STATUS: COMPLETED Assumed pt care at 0800 from night RN. Pt is AAO , calm/cooperative, follows commands, FLANAGAN, up ad sweta. Lungs CTA. Tel e in place. Voids/BM independently. No major complaints or concerns at this lola e. Pt instructed to use call light for assistance, call light is within reach. SKIN REINSPECTION/REASSESSMENT SKIN INSPECTION Skin Color Color: Usual for ethnicity Skin Temperature Temp: Warm Skin Moisture Moisture: Dry Skin Turgor Turgor: Elastic (normal/immediate) Radames Skin Assessment The patient's Radames Scale Score is 23. The pat ient is considered not at risk for development of pressure ulcers/injurie s. Sensory perception -- ability to respond meanin gfully to pressure-related discomfort No impairment. Moisture -- degree to which skin is exposed to moisture Rarely moist. Activity -- ability to change and control body position Walks frequently. Mobility -- ability to change and control body position No limitation. Nutrition -- usual food intake patterns Excellent. Friction and shear No apparent problem. INTERVENTIONS No change in previous interventions as listed b [facility] 03/20/2021 Pressure Ulcer Protocol NA - No Risk SKIN PATCHES The patient/resident has patches on the skin. tele RISK FACTORS THAT INCREASE RISK FOR DEVELOPING PRESSURE INJURIES The patient/resident does not have any spinal c ord injury, paralysis or neurologic disease. Pressure Ulcer/Injury Documentation from the al st year: No data available Intact - no new skin issues noted /es/ KORI ESCALERA RN Signed: 03/21/2021 10:18 Mar 21, 2021 07:18 NURSING NOTE: FEI DUPONT [facility] LOCAL TITLE: TELEMETRY CENTRALIZED NOTE STANDARD TITLE: NURSING NOTE DATE OF NOTE: MAR 21, 2021@07:18 ENTRY DATE: MAR 21, 2021@09:41:35 AUTHOR: FEI DUPONT EXP COSIGNER: URGENCY: STATUS: COMPLETED Telemetry (Cardiac) Monitor: Day Shift Telemetry initiation date/time: Feb@10: 45. Telemetry indication: known or potential for pr olonged QT Cardiac History: AFIB w/ RVR, ICM w/ ICD, CAD s /p CABG ICD VVI @ 40 Cardiac rhythm interpretation: AFLUTTER w/ BBB, PVCs HR:72 ME Int:n/a QRS Int:.14 QT Int:.48 QTc Int:.52 Telemetry leads monitored this shift: II and V lead Alarm parameters verified this shift /es/ FEI Liriano [facility] ACO COORDINATOR Signed: 03/21/2021 09:43 Mar 21, 2021 02:10 NURSING INPATIENT NOTE: ROHAN LAWRENCE [facility] LOCAL TITLE: [facility] NURSING PROGRESS NOTE STANDARD TITLE: NURSING INPATIENT NOTE DATE OF NOTE: MAR 21, 2021@02:10 ENTRY DATE: MAR 21, 2021@02:10:27 AUTHOR: ROHAN LAWRENCE EXP COSIGNER: URGENCY: STATUS: COMPLETED Nursing Shift Note Tour: [id number] Admitting Diagnosis: A-FIB,DOFETILIDE LOAD Code Status: Full Code. Blood Pressure: 107/71 (03/21/2021 01:00) Heart Rate: 71 (03/21/2021 01:00) Respirations: 18 (03/21/2021 01:00) Temperature: 97.9 F [36.6 C] (03/21/2021 01:00) Pain: 0 (03/21/2021 01:00) (0-10 scale) Pulse Oximetry: 92 (03/21/2021 01:00) Weight: 231.2 lb [105.1 kg] (02/19/2021 12:45) FINGERSTICK GLUCOSE 224 H (03/20/21) Shift Highlights: -Gave oral dofetilide at 0445, completed followu p EKG at 0645 -FS 159, 0700 aspart insulin held 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, no edema noted TELE: A Fib, BBB - EKG completed at 0645 (2 hrs post dofetilide) RESP: Denies SOB, LS CTAB, O2 Sats 92% on 2L NC GI: Denies N/V, +BS x 4, non-tender abdomen, con tinent of bowel LBM: 03/20/2021 DIET: Regular : Voids without issues, yellow, clear urine, c ontinent of urine INTEG: WNL PAIN: Denies ACTIVITY: Up adlib independently, ambulates occa sionally PIV: 20G LFA patent, saline locked SAFETY: Falls risk interventions in plac e: call light within reach, side rails up x2, purposeful rounding, non-slip socks on fe et SKIN Skin Interventions performed this shift: Patient turned [id number] or as appropriate while in bed. Patient kept clean and dry with barrier cream a pplied as ordered. Device(s) removed and skin underneath was inspe cted. Head of Bed kept below 30 degrees unless otherw ise ordered. Please see CPRS/ICIP/BCMA fo r VS, further clinical assessment, orders, labs and medications administration. /billy/ ROHAN LAWRENCE RN, BSN, PHN Signed: 03/21/2021 07:19 Mar 20, 2021 11:00 NURSING NOTE: ANGELIQUE MONTGOMERY [facility] LOCAL TITLE: TELEMETRY CENTRALIZED NOTE STANDARD TITLE: NURSING NOTE DATE OF NOTE: MAR 20, 2021@23:00 ENTRY DATE: MAR 21, 2021@01:15:18 AUTHOR: ANGELIQUE MONTGOMERY EXP COSIGNER: URGENCY: STATUS: COMPLETED Telemetry (Cardiac) Monitor: Insurance Coordinator Telemetry initiation date/time: Feb@10: 45. Telemetry indication: known or potential for pr olonged QT; initiation of dofetilide Cardiac History: AFIB w/ RVR, ICM s/p ICD, HFrE F 2/2 ICM, CAD s/p CABG ICD Parameters: VVI 40 Cardiac rhythm interpretation: AF/FL w/ BBB, is olated PVCs, & ventricular rates from 50 to 90 bpm HR: 70 ME Int: NA QRS Int:0.16 QT Int: 0.39 QTc Int:0.42 Telemetry leads monitored this shift: II and V lead Alarm parameters verified this shift. Alarm parameters modified from default settings : 40 to 130 as directed by nursing who want notification if patient sustai ns <40 bpm. /eb MONTGOMERY Drilling Rig Operator Signed: 03/21/2021 01:19 Mar 20, 2021 10:28 NURSING INPATIENT NOTE: STEVEN MAZARIEGOS [facility] LOCAL TITLE: KATINA NURSING PROGRESS NOTE R STANDARD TITLE: NURSING INPATIENT NOTE DATE OF NOTE: MAR 20, 2021@22:28 ENTRY DATE: MAR 20, 2021@22:28:09 AUTHOR: STEVEN MAZARIEGOS EXP COSIGNER: URGENCY: STATUS: COMPLETED Nursing Shift Note Tour: 1930-midnight Admitting Diagnosis: A-FIB,DOFETILIDE LOAD Service Branch: Feb, [place] Code Status: Full Code. Blood Pressure: 103/60 (02/19/2021 12:45) Heart Rate: 77 (02/19/2021 12:45) Respirations: 16 (02/19/2021 12:45) Temperature: 97.2 F [36.2 C] (02/19/2021 12:45) Pain: 0 (02/19/2021 12:45) (0-10 scale) Pulse Oximetry: 95 (02/19/2021 12:45) Weight: 231.2 lb [105.1 kg] (02/19/2021 12:45) FINGERSTICK GLUCOSE 183 H (03/20/21) Recent Labs: POTASSIUM 4.6 (03/20/21) SODIUM 142 (03/20/21) MAGNESIUM 2.2 (03/20/21) CALCIUM 9.3 (03/20/21) CREATININE 1.6 H (03/20/21) WBC 8.30 (10/27/20) HGB 16.7 (10/27/20) HCT 52.6 (10/27/20) PLT 78 L (10/27/20) PT____ INR____ CO2 25 (03/20/21) Shift Highlights: No acute changes. Pt continues in afib/flutter. VSS. 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, no edema noted TELE: Afib/flutter (groundwater monitoring technician alarm parame ters verified) RESP: Denies SOB, LS CTAB, O2 Sats 93 - 95% on R A until 2230, while pt is sleeping, pt O2 sats decreased to 88-89 on RA, Pt placed on 2L via NC and sats increased to 90-92% GI: Denies N/V, +BS x 4, non-tender abdomen, con tinent of bowel : Voids without issues, yellow, clear urine, c ontinent of urine INTEG: WNL PAIN: Denies ACTIVITY: Up adlib independently, ambulates occa sionally PIV: 20G LFA patent, saline locked Please see CPRS/ICIP/BCMA fo r VS, further clinical assessment, orders, labs and medications administration. SKIN REINSPECTION/REASSESSMENT SKIN INSPECTION Skin Color Color: Usual for ethnicity Skin Temperature Temp: Warm Skin Moisture Moisture: Dry Skin Turgor Turgor: Elastic (normal/immediate) INTERVENTIONS No change in previous interventions as listed b elow 03/20/2021 Pressure Ulcer Protocol NA - No Risk SKIN PATCHES The patient/resident has patches on the skin. tele RISK FACTORS THAT INCREASE RISK FOR DEVELOPING PRESSURE INJURIES The patient/resident does not have any spinal c ord injury, paralysis or neurologic disease. Pressure Ulcer/Injury Documentation from the al year: No data available Satish /billy/ JOE SARMIENTO, RN, PHN REGISTERED NURSE Signed: 03/20/2021 23:25 Mar 20, 2021 07:17 NURSING INPATIENT NOTE: IGLESIA VAUGHN [facility] [facility] PM LOCAL TITLE: KATINA NURSING PROGRESS NOTE STANDARD TITLE: NURSING INPATIENT NOTE DATE OF NOTE: MAR 20, 2021@19:17 ENTRY DATE: MAR 20, 2021@19:17:06 AUTHOR: IGLESIA VAUGHN EXP COSIGNER: URGENCY: STATUS: COMPLETED Nursing Shift Note Tour: [id number] Admitting DX: A-FIB,DOFETILIDE LOAD Please see ICIP for additional assessments a nd vital signs HIGHLIGHTS: -- Patient requested to take dofetilide at 1700 & 0500 - medication re-timed by pharmacist. First dose given this evening, EKG c ompleted two hours after medication administration and available in [employer] [facility]. -- Pt occasionally dipping into low 40s per copy technician but not sustaining. Alarm parameters changed to reflect MD order. ASSSESMENT: Patient is alert and oriented, able to make need s known. Appears slightly anxious about timing of medications while in [facility] pital as he has tickets to an event on Friday. VSS, telemetry shows aflutter w ith BBB and HR in 60s. Denies SOB, unlabored breathing on room air. Voids with out difficulty. ACTIVITY: independent without assistive device IV: 20G PIV LFA saline locked FLUIDS/GTTS/ELECTROLYTES: n/a EDUCATION: Education provided on medication/cares this shif t as needed. SKIN: Skin Interventions performed this shift: Patient turned [id number] or as appropriate while in bed. Other: repositions independently /es/ IGLESIA VAUGHN, MSN RN NURSE EDUCATOR Signed: 03/20/2021 20:06 Mar 20, 2021 03:50 NURSING NOTE: ADRIAN FLETCHER [facility] PM LOCAL TITLE: TELEMETRY CENTRALIZED NOTE [facility] STANDARD TITLE: NURSING NOTE DATE OF NOTE: MAR 20, 2021@15:50 ENTRY DATE: MAR 20, 2021@17:29:20 AUTHOR: ADRIAN FLETCHER EXP COSIGNER: URGENCY: STATUS: COMPLETED Telemetry (Cardiac) Monitor: Telemetry initiation date/time: Feb @ 10 :45 Telemetry indication: /Order: Known or potentia l for pronlonged QT Cardiac History: AFIB w/ RVR; HFrEF 2/2 ICM(S/P ICD); CAD(S/P CABG) ICD Bradycardia Pacing Mode/Rate: VVI @ 40 Cardiac rhythm interpretation: A FIB/FLUTTER; B BB; isolated PVCs HR: 37 - 107 ME Int: N/A QRS Int: .152 QT Int: .465 QTc Int: .437 Telemetry leads monitored this shift: II and V lead Alarm parameters verified this shift. Alarm parameters modified from default settings : 46 to 130 by nursing unit. /billy/ ADRIAN FLETCHER HVAC MECHANIC Signed: 03/20/2021 17:31 Mar 20, 2021 12:00 TREATMENT PLAN INTERDISCIPLINARY NOTE: LINDA MONTE [facility] PM LOCAL TITLE: ITP INTERDISCIPLINARY TREATMENT PL AN STANDARD TITLE: TREATMENT PLAN INTERDISCIPLINARY NOTE DATE OF NOTE: MAR 20, 2021@12:00 ENTRY DATE: MAR 20, 2021@12:01:06 AUTHOR: LINDA FITZPATRICK EXP COSIGNER: URGENCY: STATUS: COMPLETED Interdisciplinary Treatment Plan (ITP) Date of current Admission: Feb Medical problems to be addressed, including reas on for admission as well as all active medical problems: 1. A-fib RVR (dofetilide trial) At risk indicators at time of admission: Current tobacco use Support services in community: Current living situation: Lives alone Patient/Family input to care: Patient Goals:Keep pain under control, get heart rate under control Treatment plan/Interventions: Encourage activity as tolera susanne., Educated Patient on use of Pain Scale, Assess patients'coordination/balance before assisting w ith transfer/mobility. Measurable Outcomes: Patient will verablize under standing of the 0-10 pain scale., Patient will deny pain or report that pain is managed at an accept able level., Patient will not fall during hospitalization. , Skin will remain intact/or no further breakdown., Patient will maintain maximum level of function. Discharge Plan: Discharge plan depends upon patients progress du ring hospitalization. Anticipated resources needed for discharge: Anticipated educational needs: Tests/treatments/procedures: risks and benefits, disease process, medication management, and discharge instructions. Participants: Transportation needs: Friend will pick pt up Plan of care shared with patient/family and verb alized with understanding. /billy/ LINDA FITZPATRICK RN REGISTERED NURSE Signed: 03/20/2021 15:08 Mar 20, 2021 11:21 NURSING ADMISSION EVALUATION NOTE: Dorita FITZPATRICK [facility] AM LOCAL TITLE: VAAES ACUTE INPATIENT NSG ADMISSIO N SCREEN STANDARD TITLE: NURSING ADMISSION EVALUATION NOT E DATE OF NOTE: MAR 20, 2021@11:21 ENTRY DATE: MAR 20, 2021@11:21:15 AUTHOR: LINDA FITZPATRICK EXP COSIGNER: URGENCY: STATUS: COMPLETED ALLERGY/ADVERSE DRUG REACTION (ADR) REVIEW (MRT 5) FACILITY ALLERGY/ADR -------- No Remote Allergy/ADR Data available for this pa [facility] Allergy/Adverse Drug Reaction Review to be condu cted by: Nurse Results of Allergy/ADR Review: Allergy/Adverse Drug Reaction list confirmed MEDICATION REVIEW (MRR1) Did patient bring medication(s) from home? No Medication Review to be conducted by Pharmacist GENERAL INFORMATION Admission information given by: Patient Preferred Language for Discussing Healthcare: Chilean Preferred mode of communication: Verbal Sensory Deficits: Visual deficit: Bilateral Items at bedside: Dentures: Top and bottom Glasses/contacts: On pt (glasses) INFECTIOUS DISEASE RISK SCREEN Travel Screen: Have you traveled within the [facility] with in the last 21 days? No Have you traveled outside the [facility] wit hin the last 21 days? No Have you had other exposure(s) to infectious di sease? No known exposure Symptoms Present: No Symptoms Present History of Multiple Drug Resistant Organism (MD RO): No NUTRITION SCREENING Malnutrition Screening Measurement DT WEIGHT LB(KG)[BMI] 02/19/2021 12:45 231.2(104.87)[30*] 01/17/2021 09:55 232(105.23)[30*] 11/15/2020 09:34 243(110.22)[31*] Lost weight recently without trying: No (0 points) Eating poorly due to decreased appetite: No (0 points) Total Score: 0 Additional Nutrition Screening ==== ======== Patient requiring tube feedings/TPN/PPN? No Do you have any food intolerances, special dieta ry needs, ethnic, cultural or orthodoxy preferences affecting dietary needs? No In the past 3 months, did you ever run o ut of food and were not able to access more food or money to buy more food? No RISK SCREENINGS Alcohol Screen: Screen to be completed by: Nurse SCREEN FOR ALCOHOL (AUDIT-C) An alcohol screening test (AUDIT-C) was [place] (score=4). 1. How often did you have a drink containing al cohol in the past year? Two to three times per week 2. How many drinks containing alcohol did you h ave on a typical day when you were drinking in the past year? One or two drinks 3. How often did you have six or more drinks on one occasion in the past year? Less than monthly Have you consumed alcohol within the last 72 ho urs? No Tobacco or Nicotine Use: Current everyday tobacco user Type: Cigarettes Patient offered FDA-Approved cessation medicati on (nicotine replacement): Patient declines cessation medication. Complete tobacco cessation education: Now Patient declines tobacco cessation counseling. Substance Use Assessment: Have you used any recreational drugs or narcoti cs in the last 72 hours? No RISK OF WANDERING History of wandering or elopement: No Patient expressing a desire/plan to leave immed iately: No SUICIDE Payne Suicide Severity Rating Scale (C-SSRS) 1. Over the past month, have you wished you wer e or wished you could go to sleep and not wake up? No 2. Over the past month, have you had any actual thoughts of killing yourself? No 3. Over the past month, have you been thinking about how you might do this? Response not required due to responses to other questions. 4. Over the past month, have you had these thou ghts and had some intention of acting on them? Response not required due to responses to other questions. 5. Over the past month, have you started to wor k out or worked out the details of how to kill yourself? Response not required due to responses to other questions. 6. If yes, at any time in the past month did yo u intend to carry out this plan? Response not required due to responses to other questions. 7. In your lifetime, have you ever done anythin g, started to do anything, or prepared to do anything to end your life (fo r example, collected pills, obtained a gun, gave away valuables, went to th e roof but didn't jump)? No 8. If YES, was this within the past 3 months? Response not required due to responses to other questions. EXPOSURE TO VIOLENCE AND ABUSE PRE-SCREEN Are you worried for your safety, that you will be hurt or harmed? No Has anyone tried to force you to sign papers or use your money against your will? No POST TRAUMATIC STRESS/ SEXUAL TRAUMA CARE CONSIDERATIONS To minimize a startle response, what is your preference on how best to awaken you? No preference SEXUAL HEALTH Do you have any concerns or health questions re garding your sexual health that you would like to discuss with your provid er? No ADVANCE DIRECTIVE Notification of Rights Related to Advance Direc tives: Written notification provided. The patient wishes to receive information about or assistance with Advance Care Planning and/or Advance Directive: Yes SPIRITUAL ASSESSMENT Are there orthodoxy practices or spiritual conc erns you want the footwear sales associate, your provider, and other health care team membe rs to know? No ANTICIPATED DISCHARGE NEEDS Where do you live? Housing owned/rented by [place] Do you have a legal guardian/conservator? No Method of transportation: Private Vehicle EDUCATIONAL NEEDS/LEARNING STYLE Barriers to learning: None evident Patient learning style preferences: None VISITOR INFORMATION Will you have a primary support person while in the hospital? Yes: Relationship to patient: Other: Friend Visitor Name: Meridian Contact Number: Patient's Visitor Restriction preferences: No Privacy Review: SANTIAGO FALL SCALE & TIPS PROGRAM SANTIAGO FALL SCALE The [place] Fall scale was performed and score wa s 20. This is indicative of low risk of falls. History of falling in past 3 months? No Secondary diagnosis: No Ambulatory aid: None/bedrest/nurse assist Intravenous therapy/Heparin lock: Yes Gait/Transferring: Normal/bed rest/immobile Mental Status: Oriented to own ability/knows own limitations Fall Tailoring Interventions for Patient Safety (TIPS): Fall TIPS initiated with patient: No Comment: Unnecessary for this pt Fall TIPS reviewed with patient: Yes ASPIRATION RISK ASSESSMENT AND SWALLOW SCREEN None INITIAL SKIN INSPECTION/ASSESSMENT SKIN INSPECTION Skin Color Color: Usual for ethnicity Skin Temperature Temp: Warm Skin Moisture Moisture: Dry Skin Turgor Turgor: Elastic (normal/immediate) Radames Skin Assessment The patient's Radames Scale Score is 21. The pat ient is considered not at risk for development of pressure ulcers/injurie s. Sensory perception -- ability to respond meanin gfully to pressure-related discomfort No impairment. Moisture -- degree to which skin is exposed to moisture Rarely moist. Activity -- ability to change and control body position Walks occasionally. Mobility -- ability to change and control body position No limitation. Nutrition -- usual food intake patterns Adequate. Friction and shear No apparent problem. INTERVENTIONS The pressure ulcer/injury prevention protocol w as not needed - patient/resident is not at risk. SKIN PATCHES The patient/resident has patches on the skin. Tele RISK FACTORS THAT INCREASE RISK FOR DEVELOPING PRESSURE INJURIES The patient/resident has the following spinal c ord injury or neurologic deficit. Known vascular surgery or vascular disease Line Operator Comment: ICD Pressure Ulcer/Injury Documentation from the year: No data available Localized abnormality Abrasion/Laceration Right arm (scabbed/healing and healthy) Patient belongings: Dentures (top and bottom) Glasses 2 wallets/money clip S30.00 [facility] home [facility] keys cellphone watch, gold ring chocolate donuts, toiletry kit, dentures case 2 t-shirts 2 coins in wallet /es/ LINDA FITZPATRICK RN REGISTERED NURSE Signed: 03/20/2021 15:13 Mar 20, 2021 11:20 H & P NOTE: RODO PINTO [facility] TITLE: H&P HISTORY & PHYSICAL - MEDICINE STANDARD TITLE: H & P NOTE DATE OF NOTE: MAR 20, 2021@11:20 ENTRY DATE: MAR 20, 2021@11:20:24 AUTHOR: RODO PINTO EXP COSIGNER: URGENCY: STATUS: COMPLETED MEDICINE HISTORY & PHYSICAL Chief Complaint: Planned admission for dofitalite load History of Present Illness (HPI) Patient is a 75 year-old male with PMH including DM2, HTN, COPD, tobacco use, CAD s/p OK with angioplasty to RCA in 1993, s/p 3-vessel CABG 10/2010, ICM with single chamber ICD implanted 2011 for prima ry prevention. In December 2020, patient was admitted to OSH with multiple ICD sh ocks (6) and found to be in atrial fibrillation, a new d iagnosis for him. He was started on anticoagulation and rate-controlled. He also had some CHF and wa s diuresed. An echocardiogram was done showing an ejection fraction of 23%. Dr. Villasenor saw patient in f/u and felt the episodes were likely in appropriate shocks due to AF with RVR, although one of the tachycardia appears to be po ssible VT after ATP. Dr. Villasenor recommended dofetilide ad mission for rhythm control of AFib and consideration of PVI down the road. Past Medical History: Active problems - Computerized Problem List is t he source for the followin. Status post left inguinal hernia repair 2. Chronic low back pain 3. Thrombocytopenia (SNOMED CT 533681850) 4. Chronic obstructive pulmonary disease (SNOME D CT [id number]) - FEV1/FVC (05/2011) 2.47/3.46. FEV1 58% pred. FEV1% 70. 5. History of adenomatous polyp of colon (SNOME D CT [id number]) 6. Type 2 diabetes mellitus 7. Hypertension 8. Coronary artery disease - S/P inferior OK in 1993. - S/P atherectomy RCA in 1993. - S/P CABG x 3 in 2010. 9. Chronic systolic heart failure - S/P ICD placement in 2011. - Echo (12/2020 ANW) EF 23%, LAE, mod global hyp okinesis. 10. Hyperlipidemia 11. Tobacco use 12. Cardiac defibrillator in situ 13. Peripheral neuropathy 14. Persistent atrial fibrillation Past Surgical History: CABG ( 2010) Family History: None Allergies: LISINOPRIL (Nov 09, 2007) Review of System: 5 point ROS Negative except above Physical Exam: Temp: 97.2 F [36.2 C] (02/19/2021 12:45) Pulse:77 (02/19/2021 12:45) BP: 103/60 (02/19/2021 12:45) Resp: 16 (02/19/2021 12:45) Weight: 231.2 lb [105.1 kg] (02/19/2021 12:45) Pain: 0 (02/19/2021 12:45) O2 Sat: 95 (02/19/2021 12:45) BMI: 30.2 General: NAD HEENT: KHUSHBOO Cardio: A-fib Lungs: Clear b/l Abd: Soft, non tender Extrem: No edema Labs: - INR: INR - NONE FOUND - Complete Blood Count White count: WBC 8.30 (10/27/20) Hemoglobin: HGB 16.7 (10/27/20) Hematocrit: HCT 52.6 (10/27/20) Platelets: PLT 78 L (10/27/20) - Complete Metabolic Panel SODIUM 142 (03/20/21) POTASSIUM 4.6 (03/20/21) CHLORIDE 106 (03/20/21) CO2 25 (03/20/21) UREA NITROGEN 31 H (03/20/21) CREATININE 1.6 H (03/20/21) GLUCOSE 216 H (03/20/21) CALCIUM 9.3 (03/20/21) MAGNESIUM 2.2 (03/20/21) ESTIMATED GFR(eGFR) 43 L (03/20/21) AST/SGOT 28 (02/19/21) ALT/SGPT 32 (02/19/21) Assessment/Plan: Patient is a 75 year-old male with PMH including DM2, HTN, COPD, tobacco use, CAD s/p OK with angioplasty to RCA in 1993, s/p 3-vessel CABG 10/2010, ICM with single chamber ICD implanted 2011 for prima ry prevention. Presents for a planned admission for Dofitalide start. #Persistent atrial fibrillation [id number]: 5) - Start Dofetilide 250 mcg every 12 hours. Plan for a total of 5 monitored inpatient doses. - EKGs 2 hours after each dose to evaluate QTc. 1st dose only: If QTc increases by <=15%, con tinue current dose of Dofetilide. If QTc increases by >15% or is >550 msec (given RBBB), decrease dose of Dofetilide to 125 mcg BID. Doses 2-5: Dofetilide karen uld be discontinued if at any time after the second dose the QTc increases to >550 msec (ventricula r conduction abnormalities (i.e paced rhythm, bundle branch block or IVCD)). - If pt. does not convert to sinus rhythm after full Dofetilide load, will perform DC-cardioversion. - Continue CHIEF SUSTAINABILITY OFFICER apixaban, pt denies any m issed doses in last 30 days, so no GIRMA needed - Hold Dig per EP ( Worsening Scr ) #HFrEF 2/2 ICM s/p ICD #Stage C, class II - Volume: Euvolimic - GDMT: Entresto: Hol ding in the setting of increasing Scr with corelates with increase in dose of entresto per pharm recs . Metop 37.5 qday ( Holding in the setting of dof etilide load) empa 25 qday Not on MRA. #[place] Baseline Scr 1.1. Scr 1.6 on presentatio n. Rise corelates with increasing dose of entresto. Will hold entresto for now. #T2DM - Hypoglycemia protocol - Sliding scale Deep Vein Thrombosis (DVT) Prophylaxis: On A/C Code Status: Full I have seen and discussed the patient with my at tending, Dr. Cooper, who agrees with the above assessment and plan. /billy/ RODO PINTO MD RESIDENT Signed: 03/20/2021 14:47 Mar 20, 2021 10:52 CARDIOLOGY ATTENDING NOTE: RUTH ARRIAZA [facility] LOCAL TITLE: CARDIOLOGY ADMISSION STAFF NOTE STANDARD TITLE: CARDIOLOGY ATTENDING NOTE DATE OF NOTE: MAR 20, 2021@10:52 ENTRY DATE: MAR 20, 2021@10:52:19 AUTHOR: RUTH ARRIAZA EXP COSIGNER: URGENCY: STATUS: COMPLETED CARDIOLOGY ADMISSION STAFF NOTE Has ADDENDA Assessment and Plan: 75 year-old male with PMH in cluding DM2, HTN, COPD, tobacco use, CAD s/p OK with angioplasty to RCA in 1993, s/p 3-vessel CABG 2010, ICM with single chamber ICD implanted 2011 for prima ry prevention. In December 2020, patient was admitted to OSH with multiple ICD shocks (6) and found to be in atrial fibrillation. Per EP, will admit the patient for start of dofetilide. Will plan to start first dose this evening after check of labs, baseline EKG a nd will monitor closely per protocol Patient seen and staffed with Dr. Gardenia Arriaza MD Physicist [employer] PGY4 [id number] === Subjective: Patient presenting for planned admission per EP for planned admission for dofetilide load given history of inappropriate s hock in setting of atrial fibrillation. Feels well and without acute compl aints today Objective: Vitals: Temp: 97.2 F [36.2 C] (02/19/2021 12:45) O2 Sat: 95 (02/19/2021 12:45) HR: 77 (02/19/2021 12:45) BP: 103/60 (02/19/2021 12:45) Resp: 16 (02/19/2021 12:45) Weight: 231.2 lb [105.1 kg] (02/19/2021 12:45) Pain: 0 (02/19/2021 12:45) Exam: General: well appearing male in NAD breathing on room air Head: at/nc Eyes: eomi, perrl, sclera anicteric Oral: mucous membranes moist, no oral ulceration CV: irr irr, S1, S2, no murmurs, no JVD Resp: CTAB, breathing non labored Abdomen: obese, soft, NT/ND, BS+ Extremities: moving all 4 with no limitations, n o LE edema Skin: warm and dry, no rashes or wounds noted Neuro: alert, interactive, speech fluent, CN II- XII grossly intact, strength normal Psych: good mood and appropriate affect /es/ RUTH ARRIAZA MD CATERPILLAR MECHANIC Signed: 03/20/2021 13:02 Receipt Acknowledged By: * AWAITING SIGNATURE * Seamus HE 03/20/2021 ADDENDUM STATUS: COMPLETED I have seen and evaluated Mr Tamera Anaya and have discussed his care with the team. Please see team notes for historical details and Dr. Arriaza's note for our mutual opinion. He is here for a Dofetilide load and we will follow per protocol. /billy/ Seamus HE MD STAFF ANIMAL HOSPITAL CLERK Signed: 03/20/2021 15:24 Mar 20, 2021 10:45 NURSING NOTE: ADRIAN FLETCHER [facility] LOCAL TITLE: TELEMETRY CENTRALIZED NOTE BÁRBARA STANDARD TITLE: NURSING NOTE DATE OF NOTE: MAR 20, 2021@10:45 ENTRY DATE: MAR 20, 2021@11:50:19 AUTHOR: ADRIAN FLETCHER EXP COSIGNER: URGENCY: STATUS: COMPLETED Telemetry (Cardiac) Monitor: Telemetry initiation date/time: Feb @ 1 0:45 Telemetry indication: /Order: Known or potentia l for pronlonged QT Cardiac History: AFIB w/ RVR; HFrEF 2/2 ICM(S/P ICD); CAD(S/P CABG) ICD Bradycardia Pacing Mode/Rate: VVI @ 40 Cardiac rhythm interpretation: Atrial fibrillat ion; BBB; multifocal ventricular ectopy; ventricular triplet HR: 68 ME Int: N/A QRS Int: .155 QT Int: .375 QTc Int: .400 Telemetry leads monitored this shift: II and V lead Alarm parameters verified this shift. Alarm parameters modified from default settings : 46 to 130 by nursing unit. /billy/ ADRIAN FLETCHER HVAC MECHANIC Signed: 03/20/2021 11:54
--- OUTSIDE RECORDS SUMMARY | 2022-04-02 16:03 | XMS_ITS | Encounter Summary ---
:1945 Author Organization [facility] Address [address] [place], [place] [address] Care Team Providers Name Role Phone WILLA [...] MEDICARE MEDICARE PART Jun 25, PART B [id number] Saumya QUINONES PATIENT (WNR) (M) B 2011 78A 0 AVID MEDICARE MEDICARE PART Sep 25, PART A [id number] Saumya QUINONES PATIENT (WNR) (M) A 2009 78A 0 AVID MEDICARE MEDICARE PART Sep 25, PART A [id number] Saumya MICHELE (WNR) (M) A 2009 78A [phone] AVID MEDICARE MEDICARE PART Sep 25, PART B [id number] Saumya MICHELE ATTHOMAS (WNR) (M) B 2009 78A [id number] AVID Selected Encounter This section includes the information on record at [place] for the Encounter. Date/Time Encounter Type Encounter Description Reason Provider Source Apr 12, 2021 10:52 Outpatient Encounter CLINICAL PHARMACY AM [facility] Encounter Template Text not used by [place] Plan of Treatment: Future Appointments (+ 6 months) and Future Tests (+/- 45 days) The Plan of Treatment section includes future care activities for the patient from [facility] This section includes future appointments and future orders which are active, pending orscheduled.Future Appointments This section includes appointments that were scheduled to occur 6 months from the date of the Encounter, up to a maximum of 20 appointments. The data comes from all [place] treatment facilities. Appointment Date/Time Appointment Type Appointment Facili ty Name May 08, 2021 02:00 PM AMBULATORY - NONE [facility] Jun 13, 2021 02:00 PM AMBULATORY - NONE [facility] Jun 18, 2021 12:45 PM AMBULATORY - NONE [facility] Jun 18, 2021 01:30 PM AMBULATORY - [facility] Jun 20, 2021 10:00 AM AMBULATORY - [facility] Jul 11, 2021 01:00 PM AMBULATORY - NONE [facility] Jul 26, 2021 09:00 AM AMBULATORY - [facility]ICINE [facility] Jul 26, 2021 10:30 AM [facility]ATORY - [facility] Aug 03, 2021 10:46 AM AMBULATORY - [facility]ICINE [facility] Aug 08, 2021 07:00 AM AMBULATORY - NONE [facility] Aug 10, 2021 10:30 AM AMBULATORY - [facility] Sep 14, 2021 09:00 AM AMBULATORY - [facility] Sep 21, 2021 09:45 AM AMBULATORY - [facility] Sep 21, 2021 10:00 AM AMBULATORY - [facility] Sep 21, 2021 10:30 AM AMBULATORY - [facility] Sep 21, 2021 11:00 AM AMBULATORY - [facility] Sep 21, 2021 11:30 AM AMBULATORY - [facility]IC[facility] Oct 12, 2021 09:30 AM AMBULATORY - NONE [facility] Lab Results: +/- 30 days of the encounter This section includes the Chemistry and Hematology Lab Results on record with [place] for the patient. Radiology Reports and Pathology Reports are provided separately, in subsequent sections.Lab Results This section contains the Chemistry/Hematology Results that were resulted 30 days before or 30 daysafter the date of the Encounter. Date/Time Source Result Type Result - Unit Interpretation Reference Range Comment Mar 23, 2021 09:57 AM [facility] POTASSIUM Specim en Type: PLASMA No comment enter ed. Ordering Provid er: RODO PINTO Report Released Date/Time: Mar 23, 2021 09:33 AM Reporting Lab: [facility] [address] [facility] [phone] Performing Lab: [facility] [address] [facility] [phone] POTASSIUM 4.6 mmol/L 3.5-5.1 Mar 23, 2021 06:48 [facility] BASIC METABOLIC Specimen Type: PLASMA AM PANEL+MG Comment: Cancel lation Called to: Dora Mae ROSANGELA 03/23/2021 @ 0930 by AEK. 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 Ordering Provid er: RODO PINTO Report Released Date/Time: Mar 22, 2021 10:19 AM Reporting Lab: [facility] [address] [facility] [address] Performing Lab: [facility] [address] CREATININE 1.3 mg/dL H 0.7-1.2 UREA NITROGEN 25 mg/dL 8-26 GLUCOSE 170 mg/dL H 74-100 SODIUM 139 mmol/L 136-145 POTASSIUM canc mmol/L 3.5-5.1 CHLORIDE 109 mmol/L H 98-107 CO2 23 mmol/L 22-29 CALCIUM 9.0 mg/dL 8.4-10.2 MAGNESIUM 2.2 mg/dL 1.6-2.6 ANION GAP 7 mmol/L 5-15 ESTIMATED GFR(eGFR) 54 L >60 Mar 23, 2021 06:48 AM [facility] MAGNESIUM Specim en Type: PLASMA No comment enter ed. Ordering Provid er: RODO PINTO Report Released Date/Time: Mar 22, 2021 10:19 AM Reporting Lab: [facility] [address] [facility] [address] Performing Lab: [facility] [address] [facility] [address] MAGNESIUM 2.2 mg/dL 1.6-2.6 Mar 23, 2021 06:13 [facility] [place] GLUCOSE Speci men Type: BLOOD AM Comment: Abram rock Nurse Notified Ordering Provid er: GRANT,CARD II Report Released Date/Time: Mar 23, 2021 07:07 AM Reporting Lab: [facility] [address] [facility] [address] Performing Lab: [facility] [address] [facility] [address] FINGERSTICK GLUCOSE 168 mg/dL H 70-100 Mar 22, 2021 08:30 [facility] [place] GLUCOSE Speci men Type: BLOOD PM Comment: VENOUS SAMPLE Ordering Provid er: GRANT,CARD II Report Released Date/Time: Mar 23, 2021 08:23 AM Reporting Lab: [facility] [address] [facility] [address] Performing Lab: [facility] [address] [facility] [address] [place] GLUCOSE 240 mg/dL H 70-100 Mar 22, 2021 04:28 [facility] [place] GLUCOSE Speci men Type: BLOOD PM Comment: [place]am rock Nurse Notified Ordering Provid er: TEAM,CARD II Report Released Date/Time: Mar 22, 2021 04:42 PM Reporting Lab: [facility] [address] [facility] [address] Performing Lab: [facility] [address] [facility] [address] [place] GLUCOSE 197 mg/dL H 70-100 Mar 22, 2021 11:28 [facility] [place] GLUCOSE Speci men Type: BLOOD AM Comment: Abram Welch Notified Ordering Provid er: GRANTCARD II Report Released Date/Time: Mar 22, 2021 12:14 PM Reporting Lab: [facility] [address] [facility] [phone] Performing Lab: [facility] [address] [facility] [address] [place] GLUCOSE 225 mg/dL H 70-100 Mar 22, 2021 06:13 [facility] [place] GLUCOSE Speci men Type: BLOOD AM Comment: Abram Welch Notified Ordering Provid er: GRANTCARD II Report Released Date/Time: Mar 22, 2021 12:13 PM Reporting Lab: [facility] [address] [facility] [address] Performing Lab: [facility] [address] [facility] [address] [place] GLUCOSE 155 mg/dL H 70-100 Mar 21, 2021 07:36 [facility] [place] GLUCOSE Speci men Type: BLOOD PM Comment: Abram rock Nurse Notified Ordering Provid er: GRANTCARD II Report Released Date/Time: Mar 21, 2021 08:53 PM Reporting Lab: [facility] [address] [facility] [address] Performing Lab: [facility] [address] [facility] [address] [place] GLUCOSE 214 mg/dL H 70-100 Mar 21, 2021 04:00 [facility] [place] GLUCOSE Speci men Type: BLOOD PM Comment: Abram rock Nurse Notified Ordering Provid er: DARLYN BURNS II Report Released Date/Time: Mar 21, 2021 04:27 PM Reporting Lab: [facility] [address] [facility] [address] Performing Lab: [facility] [address] [facility] [address] [place] GLUCOSE 252 mg/dL H 70-100 Mar 21, 2021 11:43 [facility] [place] GLUCOSE Speci men Type: BLOOD AM Comment: Abram rock Nurse Notified Ordering Provid er: GRANTCARD II Report Released Date/Time: Mar 21, 2021 12:08 PM Reporting Lab: [facility] [address] [facility] [address] Performing Lab: [facility] [address] [facility] [address] FINGERSTICK GLUCOSE 227 mg/dL H 70-100 Mar 21, 2021 06:45 AM [facility] ALBUMIN Specim en Type: PLASMA No comment enter ed. Ordering Provid er: LISBET WASHINGTON V Report Released Date/Time: Mar 20, 2021 10:27 AM Reporting Lab: [facility] [address] [facility] [phone] Performing Lab: [facility] [address] [facility] [address] ALBUMIN 3.5 g/dL 3.5-5.2 Mar 21, 2021 06:45 [facility] BASIC METABOLIC Specimen Type: PLASMA AM PANEL+MG No comment enter ed. Ordering Provid er: RODO PINTO Report Released Date/Time: Mar 20, 2021 02:43 PM Reporting Lab: [facility] [address] [facility] [address] Performing Lab: [facility] [address] [facility] [address] CREATININE 1.5 mg/dL H 0.7-1.2 UREA NITROGEN 26 mg/dL 8-26 GLUCOSE 207 mg/dL H 74-100 SODIUM 140 mmol/L 136-145 POTASSIUM 4.4 mmol/L 3.5-5.1 CHLORIDE 109 mmol/L H 98-107 CO2 24 mmol/L 22-29 CALCIUM 9.0 mg/dL 8.4-10.2 MAGNESIUM 2.3 mg/dL 1.6-2.6 ANION GAP 7 mmol/L 5-15 ESTIMATED GFR(eGFR) 46 L >60 Mar 21, 2021 06:38 [facility] [place] GLUCOSE Speci men Type: BLOOD AM Comment: Abram rock Nurse Notified Ordering Provid er: TEAM,CARD II Report Released Date/Time: Mar 21, 2021 07:23 AM Reporting Lab: [facility] [address] [facility] [address] Performing Lab: [facility] [address] [facility] [address] F[place] GLUCOSE 159 mg/dL H 70-100 Mar 20, 2021 08:27 [facility] [place] GLUCOSE Speci men Type: BLOOD PM Comment: Abram rock Nurse Notified Ordering Provid er: TEAM,CARD II Report Released Date/Time: Mar 20, 2021 10:52 PM Reporting Lab: [facility] I [facility] [address] Per[facility]: [facility] [address] [place] GLUCOSE 224 mg/dL H 70-100 Mar 20, 2021 05:06 [facility] [place] GLUCOSE Speci men Type: BLOOD PM Comment: [place]am [place] Nurse Notified Ordering Provid er: TEAM,CARD II Report Released Date/Time: Mar 20, 2021 05:27 PM Reporting Lab: [facility] [address] [facility] [address] Performing Lab: [facility] [address] [place] GLUCOSE 183 mg/dL H 70-100 Mar 20, 2021 08:16 [facility] BASIC METABOLIC Specimen Type: PLASMA AM PANEL+MG No comment enter ed. Ordering Provid er: TUCKER JULIAN Report Released Date/Time: Mar 15, 2021 02:20 PM Reporting Lab: [facility] [address] [facility] [phone] Performing Lab: [facility] [address] [facility] [address] CREATININE 1.6 mg/dL H 0.7-1.2 UREA NITROGEN 31 mg/dL H 8-26 GLUCOSE 216 mg/dL H 74-100 SODIUM 142 mmol/L 136-145 POTASSIUM 4.6 mmol/L 3.5-5.1 CHLORIDE 106 mmol/L 98-107 CO2 25 mmol/L 22-29 CALCIUM 9.3 mg/dL 8.4-10.2 MAGNESIUM 2.2 mg/dL 1.6-2.6 ANION GAP 11 mmol/L 5-15 ESTIMATED GFR(eGFR) 43 L >60 Mar 20, 2021 08:16 [facility] COVID-19 DIAGNOSTIC Speci men Type: NASOPHARYNGEAL AM PANEL (CEPHEID) Comment: Wiley samuel GeneXpert ([id number]) Ordering Provid er: TUCKER JULIAN Report Released Date/Time: Mar 15, 2021 02:20 PM Reporting Lab: [facility] [address] [facility] [address] Performing Lab: [facility] [address] [facility] [address] COVID-19 (CEPHEID) Not Detected Not Dete cted Social History: Smoking Status (Most current) and Tobacco Use (All prior to encounter date) This section includes the most current, and the historical, smoking and tobacco-related health factors from the [place] facility where the Encounter took place.Current Smoking Status This section includes the most current smoking, or tobacco-related health factor, from the [place] facility where the Encounter took place. Date/Time Current Smoking Status Comment Facility Mar 20, 2021 11:21 AM [facility] TOBACCO USE CURRENT NRT [facility] DECLINE Tobacco Use History This section includes a history of the smoking, or tobacco- related health factors, that were collected on or before the date of the Encounter. The data comes from the [place] facility where the Encounter took place. 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 [facility] Nov 15, 2020 10:00 AM VA-TOBACCO USE MED [place] [facility] Nov 15, 2020 10:00 AM VA-TOBACCO USER EVERY DAY [facility] Jun 21, 2019 02:29 PM VA-TOBACCO USE 30 YEARS OR MORE [facility] Jun 21, 2019 02:29 PM VA-TOBACCO USE ADVICE [place] [facility] Jun 21, 2019 02:29 PM 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 [facility] Jun 21, 2019 02:29 PM VA-TOBACCO USE MED NO [facility] Jun 21, 2019 02:29 PM VA-TOBACCO USE WI 30 MIN OF WAKEUP [facility] Jun 21, 2019 02:29 PM VA-TOBACCO USER EVERY DAY [facility] Jun 09, 2018 03:48 PM VA-TOBACCO USE 30 YEARS OR MORE [facility] Jun 09, 2018 03:48 PM VA-TOBACCO USE ADVICE [facility] Jun 09, 2018 03:48 PM 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 Jun 09, 2018 03:48 PM VA-TOBACCO USE WI 30 MIN OF WAKEUP [facility] Jun 09, 2018 03:48 PM VA-TOBACCO USER EVERY DAY [facility] Jun 20, 2017 07:53 AM CURRENT TOBACCO USER [facility] Jun 19, 2016 08:41 AM CURRENT TOBACCO USER [facility] Jun 21, 2015 08:15 AM CURRENT TOBACCO USER [facility] Mar 22, 2014 10:03 AM CURRENT TOBACCO USER [facility] Mar 25, 2013 11:01 AM CURRENT TOBACCO USER [facility] Feb 05, 2012 08:55 AM CURRENT TOBACCO USER [facility] January 01, 2011 09:26 AM CURRENT TOBACCO USER [facility] Mar 07, 2010 10:02 AM CURRENT TOBACCO USER [facility] Feb 21, 2009 08:17 AM CURRENT TOBACCO USER [facility] Nov 06, 2007 10:02 AM CURRENT TOBACCO USER [facility] January 02, 2007 10:33 AM CURRENT TOBACCO USER [facility] Advance Directives: All historical and current Section Date Range: From patient's date of to the date document was created. This section includes ALL of a patient's completed or amended [place] Advance and Rescinded Directives. The entries below indicate that a directive exists for the patient, but an actual copy is not included with this document. The data comes from all [place] facilities. Date Advance Directives Provider Source Mar 06, 2005 ADVANCE DIRECTIVE GANESH RODRIGUEZ [facility] Encounter Notes: All associated encounter notes This section contains the clinical notes associated to the Encounter. Date/Time Encounter Note(s) Provider Source Apr 12, 2021 10:52 AM REPORT OF CONTACT: MOJGAN SHIN [facility] LOCAL TITLE: PATIENT CONTACT NOTE - PHARMACY STANDARD TITLE: REPORT OF CONTACT DATE OF NOTE: APR 12, 2021@10:52 ENTRY DATE: APR 12, 2021@10:52:14 AUTHOR: MOJGAN SHIN EXP COSIGNER: URGENCY: STATUS: COMPLETED PATIENT CONTACT NOTE - PHARMACY Has ADDENDA Patient us requesting a call regarding why DOFET ILIDE 250MCG CAP was discontinued and what is replacing it. Please ca back with plan. Thank you /billy/ MOJGAN SHIN CPHT [facility] COLLECTIONS SPECIALIST Signed: 04/12/2021 10:53 Receipt Acknowledged By: * AWAITING SIGNATURE * PAT FIGUEROA 04/12/2021 12:30 /billy/ JOSSELYN JAIN MD COLLECTIONS SPECIALIST/CARLOS VAZQUEZ 04/13/2021 08:18 /billy/ JOE DENG, RN REGISTERED NURSE 04/12/2021 ADDENDUM STATUS: COMPLETED Called pt 04/12/21. Confirmed he stopped Dofetili de and has no more ICD shocks since stopping. Clarified why we are stopping do fetilide (concern about pro- arrhythmia as indicated in previous note from 04/02/21). Also discussed with patient that plan now is for PVI/PVC ablation. He expressed understanding of the plan and is in agreement with going forward with ablation. /eb JAIN MD COLLECTIONS SPECIALIST/CARLOS VAZQUEZ Signed: 04/12/2021 12:36 04/13/2021 ADDENDUM STATUS: COMPLETED This RN was not in the office 04/12; pt contacted by laboratory secretary per addendum. /billy/ JOE DENG, RN REGISTERED NURSE Signed: 04/13/2021 08:19
--- OUTSIDE RECORDS SUMMARY | 2022-04-02 16:03 | XMS_ITS | Encounter Summary ---
:1945 Author Organization Department [facility] Address [address] [place] [id number] Care Team Providers Name Role Phone WILLA [...] MEDICARE MEDICARE PART Jun 25, PART B [id number] Saumya QUINONES PATIENT (WNR) (M) B 2011 78A 0 AVID MEDICARE MEDICARE PART Sep 25, PART A [id number] Saumya QUINONES PATIENT (WNR) (M) A 2009 78A 0 AVID MEDICARE MEDICARE PART Sep 25, PART A [id number] Saumya MICHELE (WNR) (M) A 2009 [id number] [phone] AVID MEDICARE MEDICARE PART Sep 25, PART B [id number] Saumya MICHELE (WNR) (M) B 2009 [id number] [phone] AVID Selected Encounter This section includes the information on record at [place] for the Encounter. Date/Time Encounter Type Encounter Reason Provider Source Description Apr 12, 2021 HC PRO PHONE TELEPHONE PRIMARY ICD-10-CM E11.9 JETT SAMS 11:17 AM CALL 11-20 MIN CARE Type 2 diabetes AN L mellitus without complications with Provider Comments: Type 2 diabetes mellitus ([facility] [id number]) IHE Encounter Template Text not used by [facility] Assessments - Encounter Diagnoses This section includes the primary and secondary diagnoses documented for the Encounter. Date/Time Primary/Secondary Diagnosis Name Provider Source Diagnosis Apr 12, 2021 PRIMARY Type 2 diabetes JETT SAMS [facility] 11:17 AM mellitus without AN L [facility] complications Plan of Treatment: Future Appointments (+ 6 months) and Future Tests (+/- 45 days) The Plan of Treatment section includes future care activities for the patient from all [place] treatmentfacilities. This section includes future appointments and future orders which are active, pending orscheduled.Future Appointments This section includes appointments that were scheduled to occur 6 months from the date of the Encounter, up to a maximum of 20 appointments. The data comes from all [place] treatment facilities. Appointment Date/Time Appointment Type Appointment Facili ty Name May 08, 2021 02:00 PM AMBULATORY - NONE [facility] Jun 13, 2021 02:00 PM AMBULATORY - NONE [facility] Jun 18, 2021 12:45 PM AMBULATORY - NONE [facility] Jun 18, 2021 01:30 PM AMBULATORY - MEDICINE [facility] Jun 20, 2021 10:00 AM AMBULATORY - MEDICINE [facility] Jul 11, 2021 01:00 PM AMBULATORY - NONE [facility] Jul 26, 2021 09:00 AM AMBULATORY - MEDICINE [facility] Jul 26, 2021 10:30 AM AMBULATORY - NONE [facility] Aug 03, 2021 10:46 AM AM[facility]ULATORY - [facility]ICINE [facility] Aug 08, 2021 07:00 AM AMBULATORY - NONE [facility] Aug 10, 2021 10:30 AM AMBULATORY - NONE [facility] Sep 14, 2021 09:00 AM AMBULATORY - NONE [facility] Sep 21, 2021 09:45 AM AMBULATORY - MEDICINE [facility] Sep 21, 2021 10:00 AM AMBULATORY - MEDICINE [facility] Sep 21, 2021 10:30 AM AMBULATORY - MEDICINE [facility] Sep 21, 2021 11:00 AM AMBULATORY - MEDICINE [facility] Sep 21, 2021 11:30 AM AMBULATORY - MEDICINE [facility] Oct 12, 2021 09:30 AM AMBULATORY - NONE [facility] Lab Results: +/- 30 days of the encounter This section includes the Chemistry and Hematology Lab Results on record with [place] for the patient. Radiology Reports and Pathology Reports are provided separately, in subsequent sections.Lab Results This section contains the Chemistry/Hematology Results that were resulted 30 days before or 30 daysafter the date of the Encounter. Date/Time Source Result Type Result - Unit Interpretation Reference Range Comment Mar 23, 2021 09:57 AM [facility] POTASSIUM Specim en Type: PLASMA No comment enter ed. Ordering Provid er: RODO PINTO Report Released Date/Time: Mar 23, 2021 09:33 AM Reporting Lab: [facility] [address] [facility] [address] Performing Lab: [facility] [address] POTASSIUM 4.6 mmol/L 3.5-5.1 Mar 23, 2021 06:48 [facility] BASIC METABOLIC Specimen Type: PLASMA AM PANEL+MG Comment: Cancel lation Called to: Dora Mae MSA 03/23/2021 @ 0930 by AEK. 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 Ordering Provid er: RODO PINTO Report Released Date/Time: Mar 22, 2021 10:19 AM Reporting Lab: [facility] [address] [facility] [address] Performing Lab: [facility] [address] [facility] [address] CREATININE 1.3 mg/dL H 0.7-1.2 UREA NITROGEN 25 mg/dL 8-26 GLUCOSE 170 mg/dL H 74-100 SODIUM 139 mmol/L 136-145 POTASSIUM canc mmol/L 3.5-5.1 CHLORIDE 109 mmol/L H 98-107 CO2 23 mmol/L 22-29 CALCIUM 9.0 mg/dL 8.4-10.2 MAGNESIUM 2.2 mg/dL 1.6-2.6 ANION GAP 7 mmol/L 5-15 ESTIMATED GFR(eGFR) 54 L >60 Mar 23, 2021 06:48 AM [facility] MAGNESIUM Specim en Type: PLASMA No comment enter ed. Ordering Provid er: RODO PINTO Report Released Date/Time: Mar 22, 2021 10:19 AM Reporting Lab: [facility] [address] [facility] [address] Performing Lab: [facility] [address] [facility] [address] MAGNESIUM 2.2 mg/dL 1.6-2.6 Mar 23, 2021 06:13 [facility] [place] GLUCOSE Speci men Type: BLOOD AM Comment: [place] Nurse Notified Ordering Provid er: GRANTCARD II Report Released Date/Time: Mar 23, 2021 07:07 AM Reporting Lab: [facility] [address] [facility] [address] Performing Lab: [facility] [address] [facility] [address] [place] GLUCOSE 168 mg/dL H 70-100 Mar 22, 2021 08:30 [facility] [place] GLUCOSE Speci men Type: BLOOD PM Comment: VENOUS SAMPLE Ordering Provid er: TEAMCARD II Report Released Date/Time: Mar 23, 2021 08:23 AM Reporting Lab: [facility] [address] [facility] [address] Performing Lab: [facility] [address] [facility] [address] [place] GLUCOSE 240 mg/dL H 70-100 Mar 22, 2021 04:28 [facility] [place] GLUCOSE Speci men Type: BLOOD PM Comment: [place] Nurse Notified Ordering Provid er: GRANTCARD II Report Released Date/Time: Mar 22, 2021 04:42 PM Reporting Lab: [facility] [address] [facility] [phone] Performing Lab: [facility] [address] [facility] [address] [place] GLUCOSE 197 mg/dL H 70-100 Mar 22, 2021 11:28 [facility] [place] GLUCOSE Speci men Type: BLOOD AM Comment: [place] Nurse Notified Ordering Provid er: GRANTCARD II Report Released Date/Time: Mar 22, 2021 12:14 PM Reporting Lab: [facility] [address] [facility] [address] Performing Lab: [facility] [address] [facility] [address] [place] GLUCOSE 225 mg/dL H 70-100 Mar 22, 2021 06:13 [facility] [place] GLUCOSE Speci men Type: BLOOD AM Comment: [place] Nurse Notified Ordering Provid er: GRANTCARD II Report Released Date/Time: Mar 22, 2021 12:13 PM Reporting Lab: [facility] [address] [facility] [address] Performing Lab: [facility] [address] [facility] [address] [place] GLUCOSE 155 mg/dL H 70-100 Mar 21, 2021 07:36 [facility] [place] GLUCOSE Speci men Type: BLOOD PM Comment: [place] Nurse Notified Ordering Provid er: DARLYN BURNS II Report Released Date/Time: Mar 21, 2021 08:53 PM Reporting Lab: [facility] [address] [facility] [address] Performing Lab: [facility] [address] [facility] [address] [place] GLUCOSE 214 mg/dL H 70-100 Mar 21, 2021 04:00 [facility] [place] GLUCOSE Speci men Type: BLOOD PM Comment: [place] Nurse Notified Ordering Provid er: DARLYN BURNS II Report Released Date/Time: Mar 21, 2021 04:27 PM Reporting Lab: [facility] [address] [facility] [address] Performing Lab: [facility] [address] [facility] [address] [place] GLUCOSE 252 mg/dL H 70-100 Mar 21, 2021 11:43 [facility] [place] GLUCOSE Speci men Type: BLOOD AM Comment: [place] Nurse Notified Ordering Provid er: DARLYN BURNS II Report Released Date/Time: Mar 21, 2021 12:08 PM Reporting Lab: [facility] [address] [facility] [address] Performing Lab: [facility] [address] [facility] [address] [place] GLUCOSE 227 mg/dL H 70-100 Mar 21, 2021 06:45 AM [facility] ALBUMIN Specim en Type: PLASMA No comment enter ed. Ordering Provid er: LISBET W[place] V Report Released Date/Time: Mar 20, 2021 10:27 AM Reporting Lab: [facility] [address] [facility] [address] Performing Lab: [facility] [address] [facility] [address] ALBUMIN 3.5 g/dL 3.5-5.2 Mar 21, 2021 06:45 [facility] BASIC METABOLIC Specimen Type: PLASMA AM PANEL+MG No comment enter ed. Ordering Provid er: RODO PINTO Report Released Date/Time: Mar 20, 2021 02:43 PM Reporting Lab: [facility] [address] [facility] [phone] Performing Lab: [facility] [address] [facility] [address] CREATININE 1.5 mg/dL H 0.7-1.2 UREA NITROGEN 26 mg/dL 8-26 GLUCOSE 207 mg/dL H 74-100 SODIUM 140 mmol/L 136-145 POTASSIUM 4.4 mmol/L 3.5-5.1 CHLORIDE 109 mmol/L H 98-107 CO2 24 mmol/L 22-29 CALCIUM 9.0 mg/dL 8.4-10.2 MAGNESIUM 2.3 mg/dL 1.6-2.6 ANION GAP 7 mmol/L 5-15 ESTIMATED GFR(eGFR) 46 L >60 Mar 21, 2021 06:38 [facility] [place] GLUCOSE Speci men Type: BLOOD AM Comment: [place] Nurse Notified Ordering Provid er: DARLYN BURNS II Report Released Date/Time: Mar 21, 2021 07:23 AM Reporting Lab: [facility] [address] [facility] [address] Performing Lab: [facility] [address] [facility] [address] [place] GLUCOSE 159 mg/dL H 70-100 Mar 20, 2021 08:27 [facility] [place] GLUCOSE Speci men Type: BLOOD PM Comment: [place] Nurse Notified Ordering Provid er: GRANTCARD II Report Released Date/Time: Mar 20, 2021 10:52 PM Reporting Lab: [facility] [address] [facility] [address] Performing Lab: [facility] [address] [facility] [address] [place] GLUCOSE 224 mg/dL H 70-100 Mar 20, 2021 05:06 [facility] [place] GLUCOSE Speci men Type: BLOOD PM Comment: [place] Nurse Notified Ordering Provid er: DARLYN BURNS II Report Released Date/Time: Mar 20, 2021 05:27 PM Reporting Lab: [facility] [address] [facility] [address] Performing Lab: [facility] [address] [facility] [address] [place] GLUCOSE 183 mg/dL H 70-100 Mar 20, 2021 08:16 [facility] BASIC METABOLIC Specimen Type: PLASMA AM PANEL+MG No comment enter ed. Ordering Provid er: TUCKER JUILAN Report Released Date/Time: Mar 15, 2021 02:20 PM Reporting Lab: [facility] [address] [facility] [phone] Performing Lab: [facility] [address] [facility] [phone] CREATININE 1.6 mg/dL H 0.7-1.2 UREA NITROGEN 31 mg/dL H 8-26 GLUCOSE 216 mg/dL H 74-100 SODIUM 142 mmol/L 136-145 POTASSIUM 4.6 mmol/L 3.5-5.1 CHLORIDE 106 mmol/L 98-107 CO2 25 mmol/L 22-29 CALCIUM 9.3 mg/dL 8.4-10.2 MAGNESIUM 2.2 mg/dL 1.6-2.6 ANION GAP 11 mmol/L 5-15 ESTIMATED GFR(eGFR) 43 L >60 Mar 20, 2021 08:16 [facility] COVID-19 DIAGNOSTIC Speci men Type: NASOPHARYNGEAL AM PANEL (CEPHEID) Comment: Wiley samuel GeneXpert ([id number]) Ordering Provid er: TUCKER JULIAN Report Released Date/Time: Mar 15, 2021 02:20 PM Reporting Lab: [facility] [address] Performing Lab: [facility] [phone] COVID-19 (CEPHEID) Not Detected Not Dete cted Social History: Smoking Status (Most current) and Tobacco Use (All prior to encounter date) This section includes the most current, and the historical, smoking and tobacco-related health factors from the [place] facility where the Encounter took place.Current Smoking Status This section includes the most current smoking, or tobacco-related health factor, from the [place] facility where the Encounter took place. Date/Time Current Smoking Status Comment Facility Mar 20, 2021 11:21 AM [place] TOBACCO USE CURRENT NRT [facility] DECLINE Tobacco Use History This section includes a history of the smoking, or tobacco- related health factors, that were collected on or before the date of the Encounter. The data comes from the [place] facility where the Encounter took place. Date/Time Smoking Status/Tobacco Use Comment Facil ity Nov 15, 2020 10:00 AM VA-TOBACCO DOESNT USE [place] 30 MIN [facility] WAKEUP Nov 15, 2020 10:00 AM VA-TOBACCO USE 30 YEARS OR MORE [facility] Nov 15, 2020 10:00 AM VA-TOBACCO USE ADVICE [facility] Nov 15, 2020 10:00 AM VA-TOBACCO USE FREIGHT SEPARATOR NO [facility] Nov 15, 2020 10:00 AM VA-TOBACCO USE MED NO [place] [facility] Nov 15, 2020 10:00 AM VA-TOBACCO USER EVERY DAY [facility] Jun 21, 2019 02:29 PM VA-TOBACCO USE 30 YEARS OR MORE [facility] Jun 21, 2019 02:29 PM VA-TOBACCO USE ADVICE [place] [facility] Jun 21, 2019 02:29 PM VA-TOBACCO USE FREIGHT SEPARATOR NO [facility] Jun 21, 2019 02:29 PM VA-TOBACCO USE MED NO [place] [facility] Jun 21, 2019 02:29 PM VA-TOBACCO USE [place] 30 MIN OF WAKEUP [facility] Jun 21, 2019 02:29 PM VA-TOBACCO USER EVERY DAY [facility] Jun 09, 2018 03:48 PM VA-TOBACCO USE 30 YEARS OR MORE [facility] Jun 09, 2018 03:48 PM VA-TOBACCO USE ADVICE [place] [facility] Jun 09, 2018 03:48 PM VA-TOBACCO USE FREIGHT SEPARATOR NO [facility] Jun 09, 2018 03:48 PM VA-TOBACCO USE MED NO [place] [facility] Jun 09, 2018 03:48 PM VA-TOBACCO USE [place] 30 MIN OF WAKEUP [facility] Jun 09, 2018 03:48 PM VA-TOBACCO USER EVERY DAY [facility] Jun 20, 2017 07:53 AM CURRENT TOBACCO USER [facility] Jun 19, 2016 08:41 AM CURRENT TOBACCO USER [facility] Jun 21, 2015 08:15 AM CURRENT TOBACCO USER [facility] Mar 22, 2014 10:03 AM CURRENT TOBACCO USER [facility] Mar 25, 2013 11:01 AM CURRENT TOBACCO USER [facility] Feb 05, 2012 08:55 AM CURRENT TOBACCO USER [facility] January 01, 2011 09:26 AM CURRENT TOBACCO USER [facility] Mar 07, 2010 10:02 AM CURRENT TOBACCO USER [facility] Feb 21, 2009 08:17 AM CURRENT TOBACCO USER [facility] Nov 06, 2007 10:02 AM CURRENT TOBACCO USER [facility] January 02, 2007 10:33 AM CURRENT TOBACCO USER [facility] Advance Directives: All historical and current Section Date Range: From patient's date of to the date document was created. This section includes ALL of a patient's completed or amended [place] Advance and Rescinded Directives. The entries below indicate that a directive exists for the patient, but an actual copy is not included with this document. The data comes from all [place] facilities. Date Advance Directives Provider Source Mar 06, 2005 ADVANCE DIRECTIVE GANESH RODRIGUEZ [facility] Encounter Notes: All associated encounter notes This section contains the clinical notes associated to the Encounter. Date/Time Encounter Note(s) Provider Source Apr 12, 2021 11:17 AM DRY TALC RACKER NOTE: JAYY SAMS [facility] LOCAL TITLE: DIABETES DRY TALC RACKER NOTE STANDARD TITLE: DRY TALC RACKER NOTE DATE OF NOTE: APR 12, 2021@11:17 ENTRY DATE: APR 12, 2021@11:17:10 AUTHOR: JAYY SAMS EXP COSIGNER: URGENCY: STATUS: COMPLETED PAUL MICHELE is a 75 YO MALE followed by [facility] for medication management. SUBJECTIVE: [place] reports that he is d oing well. He has completed 4 injections of the 0.25 mg dose of his semaglutide. He states he is tole rating well. He denies any SE (nausea/diarrhea/constipation) so far. He hasn't noticed any changes in his intake or any weight loss so far. He is ready to increase the dose to the 0.5 mg. He isn't sure why his BG have been higher over the last few days. He thinks he might have been splurging on bigger meals or sweets before bed. ROS: (-) hypoglycemia symptoms (-) hyperglycemia symptoms SMBG Readings: Date AM Noon PM Notes 144 178 147 164 146 157 214 162 179 203 191 219 194 222 186 MEDICATION RECONCILIATION: Active and Recently Outpatient Medicatio ns (excluding Supplies): Active Outpatient Medications Status 1) ACCU-CHEK GUIDE (GLUCOSE) TEST STRIP 1 STRIP FOR ACTIVE (S) TESTING TWICE WEEKLY TO CHECK BLOOD SUGAR--USE [...] (S) MOUTH AT BEDTIME FOR CHOLESTEROL 5) EMPAGLIFLOZIN 25MG TAB TAKE ONE TABLET BY FLORY TH EVERY ACTIVE DAY *confirms* 6) FLUTICASONE 230/SALMET 21MCG 120D INHL INHALE 1 PUFF ACTIVE (S) BY INHALATION EVERY 12 HOURS RINSE MOUTH AFTER EACH USE; REPLACES SYMBICORT 7) FUROSEMIDE 40MG TAB TAKE ONE TABLET BY MOUTH EVERY ACTIVE DAY 8) GABAPENTIN 300MG CAP TAKE TWO CAPSULES BY FLORY TH THREE ACTIVE TIMES A DAY FOR LEG PAIN 9) GLIPIZIDE 10MG TAB TAKE TWO TABLETS BY MOUTH TWICE A ACTIVE DAY TAKE 30 MINUTES BEFORE MEAL FOR DIABETES *confirms* 10) METFORMIN HCL 1000MG TAB TAKE ONE TABLET BY MOUTH TWO ACTIVE TIMES A DAY FOR DIABETES *confirms* 11) METOPROLOL SUCCINATE 100MG SA TAB TAKE ONE-H SKILLED NURSING ACTIVE TABLET BY MOUTH EVERY DAY FOR HEART 12) NITROGLYCERIN 0.4MG SL TAB DISSOLVE ONE TABL ET UNDER ACTIVE THE TONGUE ONCE FOR CHEST PAIN * MAY REPEAT SAMI RY 5 MINUTES--NO MORE THAN 3 TOTAL 13) SACUBITRIL 24MG/VALSARTAN 26MG TAB TAKE 1 TA BLET BY ACTIVE MOUTH TWICE A DAY FOR HEART FAILURE 14) SEMAGLUTIDE 0.5MG/0.375ML INJ PEN 1.5ML INJE CT 0.5MG ACTIVE UNDER THE SKIN EVERY WEEK FOR DIABETES -MULTIPL E DOSES PER PEN *Friday morning; has given 4 doses so fa r of the 0.25 mg; plans to increase to 0.5 mg on Monday 04/16* 15) VITAMIN B COMPLEX CAP TAKE 1 CAPSULE BY MOUT H EVERY ACTIVE DAY FOR NUTRITION Inactive Outpatient Medications Status 1) ASPIRIN 81MG EC TAB TAKE ONE TABLET BY MOUTH EVERY DAY Active Non-VA Medications Status 1) Non-VA ASCORBIC ACID 500MG TAB 1000MG EVERY D AY ACTIVE 2) Non-VA MARINE LIPID (FISH OIL) CAP,ORAL MOUTH ACTIVE 3) Non-VA MULTIVITAMINS CAP/TAB MOUTH ACTIVE 4) Non-VA NON VA MED NOT LISTED MISCELLANEOUS CA TS CLAW ACTIVE MOUTH 20 Total Medications Adherence to medications: denies any missed dose s OBJECTIVE: ALLERGIES/ADR: LISINOPRIL (Nov 09, 2007) Vitals: Temperature: 98.2 F [36.8 C] (03/23/2021 08:45) Blood Pressure: 118/82 (03/23/2021 08:45) Pulse: 73 (03/23/2021 08:45) Respiration: 18 (03/23/2021 08:45) Pain: 0 (03/23/2021 08:45) Height: 73.5 in [186.7 cm] (02/19/2021 12:45) Weight: 231.2 lb [105.1 kg] (02/19/2021 12:45) BMI: 30.2 LABS: Basic Metabolic Panel SODIUM 139 (03/23/21) POTASSIUM 4.6 (03/23/21) CREATININE 1.3 H (03/23/21) UREA NITROGEN 25 (03/23/21) GLUCOSE 170 H (03/23/21) CO2 23 (03/23/21) CHLORIDE 109 H (03/23/21) ESTIMATED GFR(eGFR) 54 L (03/23/21) MAGNESIUM 2.2 (03/23/21) Collection DT Specimen Test Name Result Units Re f Range 03/23/2021 05:30 PLASMA!! CREATININE 1.3 H mg/dL 0.7 - 1.2 03/21/2021 05:30 PLASMA CREATININE 1.5 H mg/dL 0 .7 - 1.2 03/20/2021 08:16 PLASMA CREATININE 1.6 H mg/dL 0 .7 - 1.2 03/23/2021 05:30 PLASMA!! ESTIMATED GFR(eGF 54 L Ref: >=60 03/21/2021 05:30 PLASMA ESTIMATED GFR(eGF 46 L R ef: >=60 03/20/2021 08:16 PLASMA ESTIMATED GFR(eGF 43 L R ef: >=60 CHOLESTEROL 166 (10/27/20) MEASURED LDL____ LDL CALCULATION 76 (10/27/20) HDL 63 (10/27/20) TRIGLYCERIDE____ Collection DT Spec HGBA1C 02/19/2021 12:03 BLOOD 10.0 H 10/27/2020 09:36 BLOOD 9.5 H 07/19/2019 08:18 BLOOD 8.2 H Collection DT Specimen Test Name Result Units Re f Range 12/22/2017 09:45 URINE ALB/CREAT RATIO,U 275.5 H mg/g creat 0 - 30 12/03/2011 18:23 URINE ALB/CREAT RATIO,U 65.79 H mg/g creat 0 - 30 Collection DT Spec WBC HGB HCT PLT MCV 10/27/2020 09:36 BLOOD 8.30 16.7 52.6 78 L 103.5 H ASSESSMENT: #DM - Goal A1c <8% (FBG 80-160, PPG <210) per [facility]/DoD g uidelines. Last A1C above goal. SMBG remains elevated. Suspect diet playin g a role in recent elevations seen. Tolerating semaglutide so far. Reasonable to continue titration to next dose. Expect further improve ment in readings with the higher dose. No changes at this time. Encouraged to be mindful abou t portion sizes and sweet intake. PLAN: - Continue Metformin 1000 mg 1 tablet twice yulia y - Continue Empagliflozin 25 mg 1 tablet daily - Continue Glipizide 10 mg 2 tablets twice daily - Increase Semaglutide 0.5 mg qweek for 4 weeks - Check BG during the day #Disease-Specific Med Rec: Completed today #Labs: A1C when semaglutide titration complete --- - Educated vet on indication/risks/benefits of n ew/changed medication. - Education provided on therapeutic nonpharmacol ogic management to achieve goals. - Vet advised of recent labs. - verbalized understanding to all plans discussed today. Questions were answered to vet's satisfaction. --- Time spent: 16 minutes RTC: 05/08@14:00 /billy/ JAYY SAMS Pharmacist Signed: 04/12/2021 13:47
--- OUTSIDE RECORDS SUMMARY | 2022-04-02 16:03 | XMS_ITS ---
:1945 Author Organization Department [facility] Address [address] [place] [id number] Care Team Providers Name Role Phone SAKSHI [...] MEDICARE MEDICARE PART Jun 25, PART B [id number] Saumya QUINONES PATIENT (WNR) (M) B 2011 78A 0 AVID MEDICARE MEDICARE PART Sep 25, PART A [id number] Saumya QUINONES PATIENT (WNR) (M) A 2009 78A 0 AVID MEDICARE MEDICARE PART Sep 25, PART A [id number] Saumya MICHELE (WNR) (M) A 2009 [id number] [id number] AVID MEDICARE MEDICARE PART Sep 25, PART B [id number] Saumya MICHELE (WNR) (M) B 2009 [id number] AVID Selected Encounter This section includes the information on record at [place] for the Encounter. 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 Date/Time Primary/Secondary Diagnosis Name Provider Source Diagnosis Mar 23, 2021 PRIMARY Spiritual or MATI GALICIA [facility] 08:57 AM hoahaoism F HCS counseling Plan of Treatment: Future Appointments (+ 6 months) and Future Tests (+/- 45 days) The Plan of Treatment section includes future care activities for the patient from all [place] treatmentfacilities. This section includes future appointments and future orders which are active, pending orscheduled.Future Appointments This section includes appointments that were scheduled to occur 6 months from the date of the Encounter, up to a maximum of 20 appointments. The data comes from all [place] treatment facilities. Appointment Date/Time Appointment Type Appointment Facili ty Name Mar 26, 2021 09:00 AM AMBULATORY - NONE [facility] Apr 02, 2021 01:13 PM AMBULATORY - MEDICINE [facility] May 08, 2021 02:00 PM AMBULATORY - NONE [facility] Jun 13, 2021 02:00 PM AMBULATORY - NONE [facility] Jun 18, 2021 12:45 PM AMBULATORY - NONE [facility] Jun 18, 2021 01:30 PM AMBULATORY - MEDICINE [facility] Jun 20, 2021 10:00 AM AMBULATORY - MEDICINE [facility] Jul 11, 2021 01:00 PM AMBULATORY - NONE [facility] Jul 26, 2021 09:00 AM AMBULATORY - MEDICINE [facility] Jul 26, 2021 10:30 AM AMBULATORY - NONE [facility] Aug 03, 2021 10:46 AM AMBULATORY - MEDICINE [facility] Aug 08, 2021 07:00 AM AMBULATORY - NONE [facility] Aug 10, 2021 10:30 AM AMBULATORY - NONE [facility] Sep 14, 2021 09:00 AM AMBULATORY - NONE [facility] Sep 21, 2021 09:45 AM [facility]ICINE [facility] Sep 21, 2021 10:00 AM [facility]UL[facility]ORY - [facility]ICINE [facility] Sep 21, 2021 10:30 AM AMBULATORY - MEDICINE [facility] Sep 21, 2021 11:00 AM AMBULATORY - MEDICINE [facility] Sep 21, 2021 11:30 AM AMBULATORY - MEDICINE [facility] Lab Results: +/- 30 days of [...] Range Comment Mar 23, 2021 09:57 AM [facility] POTASSIUM Specim en Type: PLASMA No comment enter ed. Ordering Provid er: RODO PINTO Report Released Date/Time: Mar 23, 2021 09:33 AM Reporting [facility] [address] Performing Lab: [facility] [address] POTASSIUM 4.6 mmol/L 3.5-5.1 Mar 23, 2021 06:48 [facility] BASIC METABOLIC Specimen Type: PLASMA AM PANEL+MG Comment: Cancel lation Called to: Dora Mae MSA 03/23/2021 @ 0930 by AEK. 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 Ordering Provid er: RODO PINTO Report Released Date/Time: Mar 22, 2021 10:19 AM Reporting Lab: [facility] [address] Performing Lab: [facility] [address] CREATININE 1.3 mg/dL H 0.7-1.2 UREA NITROGEN 25 mg/dL 8-26 GLUCOSE 170 mg/dL H 74-100 SODIUM 139 mmol/L 136-145 POTASSIUM canc mmol/L 3.5-5.1 CHLORIDE 109 mmol/L H 98-107 CO2 23 mmol/L 22-29 CALCIUM 9.0 mg/dL 8.4-10.2 MAGNESIUM 2.2 mg/dL 1.6-2.6 ANION GAP 7 mmol/L 5-15 ESTIMATED GFR(eGFR) 54 L >60 Mar 23, 2021 06:48 AM [facility] MAGNESIUM Specim en Type: PLASMA No comment enter ed. Ordering Provid er: RODO PINTO Report Released Date/Time: Mar 22, 2021 10:19 AM Reporting Lab: [facility] [address] Performing Lab: [facility] [address] MAGNESIUM 2.2 mg/dL 1.6-2.6 Mar 23, 2021 06:13 [facility] FING[place]ICK GLUCOSE Speci men Type: BLOOD AM Comment: [place] Nurse Notified Ordering Provid er: DARLYN BURNS II Report Released Date/Time: Mar 23, 2021 07:07 AM Reporting Lab: [facility] [address] [facility] [address] Performing Lab: [facility] [address] [facility] [address] [place] GLUCOSE 168 mg/dL H 70-100 Mar 22, 2021 08:30 [facility] [place] GLUCOSE Speci men Type: BLOOD PM Comment: VENOUS SAMPLE Ordering Provid er: DARLYN BURNS II Report Released Date/Time: Mar 23, 2021 08:23 AM Reporting Lab: [facility] [address] [facility] [address] Performing Lab: [facility] [address] [facility] [address] [place] GLUCOSE 240 mg/dL H 70-100 Mar 22, 2021 04:28 [facility] [place] GLUCOSE Speci men Type: BLOOD PM Comment: [place] Nurse Notified Ordering Provid er: DARLYN BURNS II Report Released Date/Time: Mar 22, 2021 04:42 PM Reporting Lab: [facility] [address] [facility] [address] Performing Lab: [facility] [address] [facility] [address] [place] GLUCOSE 197 mg/dL H 70-100 Mar 22, 2021 11:28 [facility] [place] GLUCOSE Speci men Type: BLOOD AM Comment: [place] Nurse Notified Ordering Provid er: DARLYN BURNS II Report Released Date/Time: Mar 22, 2021 12:14 PM Reporting Lab: [facility] [address] [facility] [address] Performing Lab: [facility] [address] [facility] [address] [place] GLUCOSE 225 mg/dL H 70-100 Mar 22, 2021 06:13 [facility] [place] GLUCOSE Speci men Type: BLOOD AM Comment: [place] Nurse Notified Ordering Provid er: GRANTCARD II Report Released Date/Time: Mar 22, 2021 12:13 PM Reporting Lab: [facility] [address] [facility] [address] Performing Lab: [facility] [address] [facility] [address] [place] GLUCOSE 155 mg/dL H 70-100 Mar 21, 2021 07:36 [facility] [place] GLUCOSE Speci men Type: BLOOD PM Comment: [place] Nurse Notified Ordering Provid er: GRANTCARD II Report Released Date/Time: Mar 21, 2021 08:53 PM Reporting Lab: [facility] [address] [facility] [address] Performing Lab: [facility] [address] [facility] [address] [place] GLUCOSE 214 mg/dL H 70-100 Mar 21, 2021 04:00 [facility] [place] GLUCOSE Speci men Type: BLOOD PM Comment: [place] Nurse Notified Ordering Provid er: GRANTCARD II Report Released Date/Time: Mar 21, 2021 04:27 PM Reporting Lab: [facility] [address] [facility] [address] Performing Lab: [facility] [address] [facility] [address] [place] GLUCOSE 252 mg/dL H 70-100 Mar 21, 2021 11:43 [facility] [place] GLUCOSE Speci men Type: BLOOD AM Comment: [place] Nurse Notified Ordering Provid er: GRANTCARD II Report Released Date/Time: Mar 21, 2021 12:08 PM Reporting Lab: [facility] [address] [facility] [address] Performing Lab: [facility] [address] [facility] [address] [place] GLUCOSE 227 mg/dL H 70-100 Mar 21, 2021 06:45 AM [facility] ALBUMIN Specim en Type: PLASMA No comment enter ed. Ordering Provid er: LISBET W[place] V Report Released Date/Time: Mar 20, 2021 10:27 AM Reporting Lab: [facility] [address] [facility] [address] Performing Lab: [facility] [address] [facility] [address] ALBUMIN 3.5 g/dL 3.5-5.2 Mar 21, 2021 06:45 [facility] BASIC METABOLIC Specimen Type: PLASMA AM PANEL+MG No comment enter ed. Ordering Provid er: RODO PINTO Report Released Date/Time: Mar 20, 2021 02:43 PM Reporting Lab: [facility] [address] [facility] [address] Performing Lab: [facility] [address] [facility] [address] CREATININE 1.5 mg/dL H 0.7-1.2 UREA NITROGEN 26 mg/dL 8-26 GLUCOSE 207 mg/dL H 74-100 SODIUM 140 mmol/L 136-145 POTASSIUM 4.4 mmol/L 3.5-5.1 CHLORIDE 109 mmol/L H 98-107 CO2 24 mmol/L 22-29 CALCIUM 9.0 mg/dL 8.4-10.2 MAGNESIUM 2.3 mg/dL 1.6-2.6 ANION GAP 7 mmol/L 5-15 ESTIMATED GFR(eGFR) 46 L >60 Mar 21, 2021 06:38 [facility] [place] GLUCOSE Speci men Type: BLOOD AM Comment: [place] Nurse Notified Ordering Provid er: GRANT,CARD II Report Released Date/Time: Mar 21, 2021 07:23 AM Reporting Lab: [facility] [address] [facility] [address] Performing Lab: [facility] [address] [facility] [address] [place] GLUCOSE 159 mg/dL H 70-100 Mar 20, 2021 08:27 [facility] [place] GLUCOSE Speci men Type: BLOOD PM Comment: [place] Nurse Notified Ordering Provid er: TEAM,CARD II Report Released Date/Time: Mar 20, 2021 10:52 PM Reporting Lab: [facility] [address] [facility] [address] Performing Lab: [facility] [address] [facility] [address] [place] GLUCOSE 224 mg/dL H 70-100 Mar 20, 2021 05:06 [facility] [place] GLUCOSE Speci men Type: BLOOD PM Comment: [place] Nurse Notified Ordering Provid er: TEAM,CARD II Report Released Date/Time: Mar 20, 2021 05:27 PM Reporting Lab: [facility] [address] [facility] [address] Performing Lab: [facility] [address] [facility] [address] [place] GLUCOSE 183 mg/dL H 70-100 Mar 20, 2021 08:16 [facility] BASIC METABOLIC Specimen Type: PLASMA AM PANEL+MG No comment enter ed. Ordering Provid er: TUCKER JULIAN Report Released Date/Time: Mar 15, 2021 02:20 PM Reporting Lab: [facility] [address] Performing Lab: [facility] [address] CREATININE 1.6 mg/dL H 0.7-1.2 UREA NITROGEN 31 mg/dL H 8-26 GLUCOSE 216 mg/dL H 74-100 SODIUM 142 mmol/L 136-145 POTASSIUM 4.6 mmol/L 3.5-5.1 CHLORIDE 106 mmol/L 98-107 CO2 25 mmol/L 22-29 CALCIUM 9.3 mg/dL 8.4-10.2 MAGNESIUM 2.2 mg/dL 1.6-2.6 ANION GAP 11 mmol/L 5-15 ESTIMATED GFR(eGFR) 43 L >60 Mar 20, 2021 08:16 [facility] COVID-19 DIAGNOSTIC Speci men Type: NASOPHARYNGEAL AM PANEL (CEPHEID) Comment: Wiley samuel GeneXpert (618) Ordering Provid er: TUCKER JULIAN Report Released Date/Time: Mar 15, 2021 02:20 PM Reporting Lab: [facility] [address] Performing Lab: [facility] [address] COVID-19 (CEPHEID) Not Detected Not Dete cted Mar 05, 2021 09:42 [facility] BASIC METABOLIC Specimen Type: PLASMA AM PANEL+MG No comment enter ed. Ordering Provid er: VICENTE PELAEZ Report Released Date/Time: Feb 19, 2021 01:50 PM Reporting Lab: [facility] [address] Performing Lab: [facility] [address] CREATININE 1.4 mg/dL H 0.7-1.2 UREA NITROGEN [...] % 0 [place] 2020 08:45 /min mm[Hg] [facility] Social History: Smoking Status (Most current) [...] 11:21 AM VA-VAAES TOBACCO USE CURRENT NRT [facility] DECLINE Tobacco Use History This section includes a history of the smoking, or tobacco- related health factors, that were collected on or before the date of the Encounter. The data comes from the [place] facility where the Encounter took place. 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 [facility] Nov 15, 2020 10:00 AM VA-TOBACCO USE MED NO [place] [facility] Nov 15, 2020 10:00 AM VA-TOBACCO USER EVERY DAY [facility] Jun 21, 2019 02:29 PM VA-TOBACCO USE 30 YEARS OR MORE [facility] Jun 21, 2019 02:29 PM VA-TOBACCO USE ADVICE [place] [facility] Jun 21, 2019 02:29 PM 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 [facility] Jun 21, 2019 02:29 PM VA-TOBACCO USE MED NO [place] [facility] Jun 21, 2019 02:29 PM VA-TOBACCO USE [place] 30 MIN OF WAKEUP [facility] Jun 21, 2019 02:29 PM VA-TOBACCO USER EVERY DAY [facility] Jun 09, 2018 03:48 PM VA-TOBACCO USE 30 YEARS OR MORE [facility] Jun 09, 2018 03:48 PM VA-TOBACCO USE ADVICE [place] [facility] Jun 09, 2018 03:48 PM 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 [facility] Jun 09, 2018 03:48 PM VA-TOBACCO USE MED NO [place] [facility] Jun 09, 2018 03:48 PM VA-TOBACCO USE [place] 30 MIN OF WAKEUP [facility] Jun 09, 2018 03:48 PM VA-TOBACCO USER EVERY DAY [facility] Jun 20, 2017 07:53 AM CURRENT TOBACCO USER [facility] Jun 19, 2016 08:41 AM CURRENT TOBACCO USER [facility] Jun 21, 2015 08:15 AM CURRENT TOBACCO USER [facility] Mar 22, 2014 10:03 AM CURRENT TOBACCO USER [facility] Mar 25, 2013 11:01 AM CURRENT TOBACCO USER [facility] Feb 05, 2012 08:55 AM CURRENT TOBACCO USER [facility] January 01, 2011 09:26 AM CURRENT TOBACCO USER [facility] Mar 07, 2010 10:02 AM CURRENT TOBACCO USER [facility] Feb 21, 2009 08:17 AM CURRENT TOBACCO USER [facility] Nov 06, 2007 10:02 AM CURRENT TOBACCO USER [facility] January 02, 2007 10:33 AM CURRENT TOBACCO USER [facility] Advance Directives: All historical and current Section [...] Mar 06, 2005 ADVANCE DIRECTIVE GANESH RODRIGUEZ [facility] Encounter Notes: All associated encounter notes This section contains the clinical notes associated to the Encounter. Date/Time Encounter Note(s) Provider Source Mar 23, 2021 08:30 AM PASTORAL CARE [facility] LOCAL TITLE: SILVER STEWARD-VISITATION NOTE STANDARD TITLE: PASTORAL CARE NOTE DATE OF NOTE: MAR 23, 2021@08:30 ENTRY DATE: MAR 23, 2021@08:56:46 AUTHOR: MATI GALICIA EXP COSIGNER: URGENCY: STATUS: COMPLETED Pastoral visit. The patient talked of his upcomi ng procedure. He appeared ok with it. He declined prayer. /es/ FATHER MATI GALICIA (DAMIEN) CHIEF, SILVER STEWARD SERVICE Signed: 03/23/2021 08:57
--- OUTSIDE RECORDS SUMMARY | 2022-04-02 16:04 | XMS_ITS | Encounter Summary ---
:1945 Author Organization Department [facility] Address [address] [place] [id number] Care Team Providers Name Role Phone CROUCH [...] MEDICARE MEDICARE PART Jun 25, PART B [id number] Saumya QUINONES PATIENT (WNR) (M) B 2011 78A 0 AVID MEDICARE MEDICARE PART Sep 25, PART A [id number] Saumya QUINONES PATIENT (WNR) (M) A 2009 78A 0 AVID MEDICARE MEDICARE PART Sep 25, PART A [id number] Saumya MICHELE (WNR) (M) A 2009 78A [id number] AVID MEDICARE MEDICARE PART Sep 25, PART B [id number] Saumya MICHELE (WNR) (M) B 2009 [id number] [id number] AVID Selected Encounter This section includes the information on record at [place] for the Encounter. Date/Time Encounter Type Encounter Description Reason Provider Source Mar 22, 2021 12:00 AM Inpatient Visit EVENT (HISTORICAL) IHE Encounter Template Text not used by [place] Plan of Treatment: Future Appointments (+ 6 months) and Future Tests (+/- 45 days) The Plan of Treatment section includes future care activities for the [facility] This section includes future appointments and future orders which are active, pending orscheduled.Future Appointments This section includes appointments that were scheduled to occur 6 months from the date of the Encounter, up to a maximum of 20 appointments. The data comes from all [place] treatment facilities. Appointment Date/Time Appointment Type Appointment Facili ty Name Mar 23, 2021 02:30 PM AMBULATORY - MEDICINE [facility] Mar 23, 2021 03:00 PM AMBULATORY - MEDICINE [facility] Mar 26, 2021 09:00 AM AMBULATORY - NONE [facility] Apr 02, 2021 01:13 PM AMBULATORY - MEDICINE [facility] May 08, 2021 02:00 PM AMBULATORY - NONE [facility] Jun 13, 2021 02:00 PM AMBULATORY - NONE [facility] Jun 18, 2021 12:45 PM AMBULATORY - NONE [facility] Jun 18, 2021 01:30 PM AMBULATORY - MEDICINE [facility] Jun 20, 2021 10:00 AM AMBULATORY - MEDICINE [facility] Jul 11, 2021 01:00 PM AMBULATORY - NONE [facility] Jul 26, 2021 09:00 AM AMBULATORY - MEDICINE [facility] Jul 26, 2021 10:30 AM AMBULATORY - NONE [facility] Aug 03, 2021 10:46 AM AMBULATORY - MEDICINE [facility] Aug 08, 2021 07:00 AM AMBULATORY - NONE [facility] Aug 10, 2021 10:30 AM AMBULATORY - NONE [facility] Sep 14, 2021 09:00 AM AMBULATORY - NONE [facility] Sep 21, 2021 09:45 AM AMBULATORY - MEDICINE [facility] Sep 21, 2021 10:00 AM AMBULATORY - MEDICINE [facility] Sep 21, 2021 10:30 AM AMBULATORY - MEDICINE [facility] Sep 21, 2021 11:00 AM AMBULATORY - MEDICINE [facility] Lab Results: +/- 30 days of the encounter This section includes the Chemistry and Hematology Lab Results on record with [place] for the patient. Radiology Reports and Pathology Reports are provided separately, in subsequent sections.Lab Results This section contains the Chemistry/Hematology Results that were resulted 30 days before or 30 daysafter the date of the Encounter. Date/Time Source Result Type Result - Unit Interpretation Reference Range Comment Mar 23, 2021 09:57 AM [facility] POTASSIUM Specim en Type: PLASMA No comment enter ed. Ordering Provid er: RODO PINTO Report Released Date/Time: Mar 23, 2021 09:33 AM Reporting Lab: [facility] [address] [facility] [address] Performing Lab: [facility] [address] [facility] [address] POTASSIUM 4.6 mmol/L 3.5-5.1 Mar 23, 2021 06:48 [facility] BASIC METABOLIC Specimen Type: PLASMA AM PANEL+MG Comment: Cancel lation Called to: Dora Mae MSA 03/23/2021 @ 0930 by AEK. 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 Ordering Provid er: RODO PINTO Report Released Date/Time: Mar 22, 2021 10:19 AM Reporting Lab: [facility] [address] [facility] [address] Performing Lab: [facility] [address] [facility] [address] CREATININE 1.3 mg/dL H 0.7-1.2 UREA NITROGEN 25 mg/dL 8-26 GLUCOSE 170 mg/dL H 74-100 SODIUM 139 mmol/L 136-145 POTASSIUM canc mmol/L 3.5-5.1 CHLORIDE 109 mmol/L H 98-107 CO2 23 mmol/L 22-29 CALCIUM 9.0 mg/dL 8.4-10.2 MAGNESIUM 2.2 mg/dL 1.6-2.6 ANION GAP 7 mmol/L 5-15 ESTIMATED GFR(eGFR) 54 L >60 Mar 23, 2021 06:48 AM [facility] MAGNESIUM Specim en Type: PLASMA No comment enter ed. Ordering Provid er: RODO PINTO Report Released Date/Time: Mar 22, 2021 10:19 AM Reporting Lab: [facility] [address] [facility] [address] Performing Lab: [facility] [address] [facility] [address] MAGNESIUM 2.2 mg/dL 1.6-2.6 Mar 23, 2021 06:13 [facility] [place] GLUCOSE Speci men Type: BLOOD AM Comment: [place] Nurse Notified Ordering Provid er: GRANT,CARD II Report Released Date/Time: Mar 23, 2021 07:07 AM Reporting Lab: [facility] [address] [facility] [address] Performing Lab: [facility] [address] [facility] [address] [place]ICK GLUCOSE 168 mg/dL H 70-100 Mar 22, 2021 08:30 [facility] [place] GLUCOSE Speci men Type: BLOOD PM Comment: VENOUS SAMPLE Ordering Provid er: DARLYN BURNS II Report Released Date/Time: Mar 23, 2021 08:23 AM Reporting Lab: [facility] [address] [facility] [address] Performing Lab: [facility] [address] [facility] [address] [place] GLUCOSE 240 mg/dL H 70-100 Mar 22, 2021 04:28 [facility] [place] GLUCOSE Speci men Type: BLOOD PM Comment: [place] Nurse Notified Ordering Provid er: DARLYN BURNS II Report Released Date/Time: Mar 22, 2021 04:42 PM Reporting Lab: [facility] [address] [facility] [address] Performing Lab: [facility] [address] [facility] [address] [place] GLUCOSE 197 mg/dL H 70-100 Mar 22, 2021 11:28 [facility] [place] GLUCOSE Speci men Type: BLOOD AM Comment: [place] Nurse Notified Ordering Provid er: GRANTCARD II Report Released Date/Time: Mar 22, 2021 12:14 PM Reporting Lab: [facility] [address] [facility] [address] Performing Lab: [facility] [address] [facility] [address] [place] GLUCOSE 225 mg/dL H 70-100 Mar 22, 2021 06:13 [facility] [place] GLUCOSE Speci men Type: BLOOD AM Comment: [place] Nurse Notified Ordering Provid er: GRANTCARD II Report Released Date/Time: Mar 22, 2021 12:13 PM Reporting Lab: [facility] [address] [facility] [address] Performing Lab: [facility] [address] [facility] [address] [place] GLUCOSE 155 mg/dL H 70-100 Mar 21, 2021 07:36 [facility] [place] GLUCOSE Speci men Type: BLOOD PM Comment: [place] Nurse Notified Ordering Provid er: GRANTCARD II Report Released Date/Time: Mar 21, 2021 08:53 PM Reporting Lab: [facility] [place] [address] Performing Lab: [facility] [address] [facility] [address] [place] GLUCOSE 214 mg/dL H 70-100 Mar 21, 2021 04:00 [facility] [place] GLUCOSE Speci men Type: BLOOD PM Comment: [place] Nurse Notified Ordering Provid er: TEAM,CARD II Report Released Date/Time: Mar 21, 2021 04:27 PM Reporting Lab: [facility] [address] [facility] [address] Performing Lab: [facility] [address] [facility] [address] [place] GLUCOSE 252 mg/dL H 70-100 Mar 21, 2021 11:43 [facility] [place] GLUCOSE Speci men Type: BLOOD AM Comment: [place] Nurse Notified Ordering Provid er: GRANT,CARD II Report Released Date/Time: Mar 21, 2021 12:08 PM Reporting Lab: [facility] [place] [facility] [address] Performing Lab: [facility] [address] [place] GLUCOSE 227 mg/dL H 70-100 Mar 21, 2021 06:45 AM [facility] ALBUMIN Specim en Type: PLASMA No comment enter ed. Ordering Provid er: LISBET W[place] V Report Released Date/Time: Mar 20, 2021 10:27 AM Reporting Lab: [facility] [address] [facility] [address] Performing Lab: [facility] [address] [facility] [address] ALBUMIN 3.5 g/dL 3.5-5.2 Mar 21, 2021 06:45 [facility] BASIC METABOLIC Specimen Type: PLASMA AM PANEL+MG No comment enter ed. Ordering Provid er: RODO PINTO Report Released Date/Time: Mar 20, 2021 02:43 PM Reporting Lab: [facility] [address] [facility] [address] Performing Lab: [facility] [address] CREATININE 1.5 mg/dL H 0.7-1.2 UREA NITROGEN 26 mg/dL 8-26 GLUCOSE 207 mg/dL H 74-100 SODIUM 140 mmol/L 136-145 POTASSIUM 4.4 mmol/L 3.5-5.1 CHLORIDE 109 mmol/L H 98-107 CO2 24 mmol/L 22-29 CALCIUM 9.0 mg/dL 8.4-10.2 MAGNESIUM 2.3 mg/dL 1.6-2.6 ANION GAP 7 mmol/L 5-15 ESTIMATED GFR(eGFR) 46 L >60 Mar 21, 2021 06:38 [facility] [place] GLUCOSE Speci men Type: BLOOD AM Comment: [place] Nurse Notified Ordering Provid er: TEAM,CARD II Report Released Date/Time: Mar 21, 2021 07:23 AM Reporting Lab: [facility] [address] [facility] [address] Performing Lab: [facility] [address] [place] GLUCOSE 159 mg/dL H 70-100 Mar 20, 2021 08:27 [facility] [place] GLUCOSE Speci men Type: BLOOD PM Comment: [place] Nurse Notified Ordering Provid er: TEAM,CARD II Report Released Date/Time: Mar 20, 2021 10:52 PM Reporting Lab: [facility] [address] Performing Lab: [facility] [address] [place] GLUCOSE 224 mg/dL H 70-100 Mar 20, 2021 05:06 [facility] [place] GLUCOSE Speci men Type: BLOOD PM Comment: [place] Nurse Notified Ordering Provid er: GRANT,CARD II Report Released Date/Time: Mar 20, 2021 05:27 PM Reporting Lab: [facility] [address] Performing Lab: [facility] [address] [place] GLUCOSE 183 mg/dL H 70-100 Mar 20, 2021 08:16 [facility] BASIC METABOLIC Specimen Type: PLASMA AM PANEL+MG No comment enter ed. Ordering Provid er: TUCKER JULIAN Report Released Date/Time: Mar 15, 2021 02:20 PM Reporting Lab: [facility] [address] Performing Lab: [facility] [address] CREATININE 1.6 mg/dL H 0.7-1.2 UREA NITROGEN 31 mg/dL H 8-26 GLUCOSE 216 mg/dL H 74-100 SODIUM 142 mmol/L 136-145 POTASSIUM 4.6 mmol/L 3.5-5.1 CHLORIDE 106 mmol/L 98-107 CO2 25 mmol/L 22-29 CALCIUM 9.3 mg/dL 8.4-10.2 MAGNESIUM 2.2 mg/dL 1.6-2.6 ANION GAP 11 mmol/L 5-15 ESTIMATED GFR(eGFR) 43 L >60 Mar 20, 2021 08:16 [facility] COVID-19 DIAGNOSTIC Speci men Type: NASOPHARYNGEAL AM PANEL (CEPHEID) Comment: Wiley samuel GeneXpert ([id number]) Ordering Provid er: TUCKER JULIAN Report Released Date/Time: Mar 15, 2021 02:20 PM Reporting Lab: [facility] [address] Performing Lab: [facility] [address] COVID-19 (CEPHEID) Not Detected Not Dete cted Mar 05, 2021 09:42 [facility] BASIC METABOLIC Specimen Type: PLASMA AM PANEL+MG No comment enter ed. Ordering Provid er: VICENTE PELAEZ Report Released Date/Time: Feb 19, 2021 01:50 PM Reporting Lab: [facility] [address] [facility] [address] Performing Lab : [facility] [address] CREATININE 1.4 mg/dL H 0.7-1.2 UREA NITROGEN [...] dy Source Pressure Rate Mass Index Mar 22, 97.1 F 68 136/67 20 /min 93 % 0 [place] 2020 08:55 /min mm[Hg] [facility] Social History: Smoking Status (Most current) and Tobacco Use (All prior to encounter date) This section includes the most current, and the historical, smoking and tobacco-related health factors from the [place] facility where the Encounter took place.Current Smoking Status This section includes the most current smoking, or tobacco-related health factor, from the [place] facility where the Encounter took place. Date/Time Current Smoking Status Comment Facility Mar 20, 2021 11:21 AM [facility] TOBACCO USE CURRENT NRT [facility] DECLINE Tobacco Use History This section includes a history of the smoking, or tobacco- related health factors, that were collected on or before the date of the Encounter. The data comes from the [place] facility where the Encounter took place. 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 [facility] Nov 15, 2020 10:00 AM VA-TOBACCO USE MED NO [place] [facility] Nov 15, 2020 10:00 AM VA-TOBACCO USER EVERY DAY [facility] Jun 21, 2019 02:29 PM VA-TOBACCO USE 30 YEARS OR MORE [facility] Jun 21, 2019 02:29 PM VA-TOBACCO USE ADVICE [place] [facility] Jun 21, 2019 02:29 PM VA-TOBACCO USE ROLLED [employer] WORKER NO [facility] Jun 21, 2019 02:29 PM VA-TOBACCO USE MED NO [place] [facility] Jun 21, 2019 02:29 PM VA-TOBACCO USE WI 30 MIN OF WAKEUP [facility] Jun 21, 2019 02:29 PM VA-TOBACCO USER EVERY DAY [facility] Jun 09, 2018 03:48 PM VA-TOBACCO USE 30 YEARS OR MORE [facility] Jun 09, 2018 03:48 PM VA-TOBACCO USE ADVICE [place] [facility] Jun 09, 2018 03:48 PM VA-TOBACCO USE [employer] WORKER NO [facility] Jun 09, 2018 03:48 PM VA-TOBACCO USE MED NO [place] [facility] Jun 09, 2018 03:48 PM VA-TOBACCO USE [place] 30 MIN OF WAKEUP [facility] Jun 09, 2018 03:48 PM VA-TOBACCO USER EVERY DAY [facility] Jun 20, 2017 07:53 AM CURRENT TOBACCO USER [facility] Jun 19, 2016 08:41 AM CURRENT TOBACCO USER [facility] Jun 21, 2015 08:15 AM CURRENT TOBACCO USER [facility] Mar 22, 2014 10:03 AM [facility] Mar 25, 2013 11:01 AM CURRENT [facility]BACCO [facility]ER [facility] Feb 05, 2012 08:55 AM CURRENT TOBACCO USER [facility] January 01, 2011 09:26 AM CURRENT TOBACCO USER [facility] Mar 07, 2010 10:02 AM CURRENT TOBACCO USER [facility] Feb 21, 2009 08:17 AM CURRENT TOBACCO USER [facility] Nov 06, 2007 10:02 AM CURRENT TOBACCO USER [facility] January 02, 2007 10:33 AM CURRENT TOBACCO USER [facility] Advance Directives: All historical and current Section Date Range: From patient's date of to the date document was created. This section includes ALL of a patient's completed or amended [place] Advance and Rescinded Directives. The entries below indicate that a directive exists for the patient, but an actual copy is not included with this document. The data comes from all [place] facilities. Date Advance Directives Provider Source Mar 06, 2005 ADVANCE DIRECTIVE GANESH RODRIGUEZ [facility]
--- OUTSIDE RECORDS SUMMARY | 2022-04-02 16:04 | XMS_ITS | Encounter Summary ---
:1945 Author Organization Department [facility] Address [address] [place] [id number] Care Team Providers Name Role Phone WILLA [...] MEDICARE MEDICARE PART Jun 25, PART B [id number] Saumya QUINONES PATIENT (WNR) (M) B 2011 78A 0 AVID MEDICARE MEDICARE PART Sep 25, PART A [id number] Saumya QUINONES PATIENT (WNR) (M) A 2009 78A 0 AVID MEDICARE MEDICARE PART Sep 25, PART A [id number] Saumya MICHELE (WNR) (M) A 2009 [id number] [id number] AVID MEDICARE MEDICARE PART Sep 25, PART B [id number] Saumya MICHELE (WNR) (M) B 2009 [id number] [id number] AVID Selected Encounter This section includes the information on record at [place] for the Encounter. Date/Time Encounter Type Encounter Reason Provider Source Description Mar 23, 2021 SUBSEQUENT ANESTHESIA ICD-10-CM J44.9 MONET BOJORQUEZ 11:57 AM HOSPITAL CARE PRE/POST-OP Chronic ALESSIO CONSULT obstructive pulmonary disease, unspecified with Provider Comments: Chronic obstructive pulmonary disease ([facility] [id number]) IHE Encounter Template Text not used by [place] Assessments - Encounter Diagnoses This section includes the primary and secondary diagnoses documented for the Encounter. Date/Time Primary/Secondary Diagnosis Name Provider Source Diagnosis Mar 23, 2021 PRIMARY Chronic MONET BOJORQUEZ [facility] 11:57 AM obstructive [facility] pulmonary disease, unspecified Mar 23, 2021 SECONDARY Personal history MONET BOJORQUEZ [place] 11:57 AM of colonic polyps [facility] Plan of Treatment: Future Appointments (+ 6 months) and Future Tests (+/- 45 days) The Plan of Treatment section includes future care activities for the patient from all [place] treatmentfacilities. This section includes future appointments and future orders which are active, pending orscheduled.Future Appointments This section includes appointments that were scheduled to occur 6 months from the date of the Encounter, up to a maximum of 20 appointments. The data comes from all [place] treatment facilities. Appointment Date/Time Appointment Type Appointment Facili ty Name Mar 26, 2021 09:00 AM AMBULATORY - NONE [facility] Apr 02, 2021 01:13 PM AMBULATORY - MEDICINE [facility] May 08, 2021 02:00 PM AMBULATORY - NONE [facility] Jun 13, 2021 02:00 PM AMBULATORY - NONE [facility] Jun 18, 2021 12:45 PM AMBULATORY - NONE [facility] Jun 18, 2021 01:30 PM AMBULATORY - MEDICINE [facility] Jun 20, 2021 10:00 AM AMBULATORY - MEDICINE [facility] Jul 11, 2021 01:00 PM AMBULATORY - NONE [facility] Jul 26, 2021 09:00 AM AMBULATORY - MEDICINE [facility] Jul 26, 2021 10:30 AM AMBULATORY - NONE [facility] Aug 03, 2021 10:46 AM AMBULATORY - MEDICINE [facility] Aug 08, 2021 07:00 AM AMBULATORY - NONE [facility] Aug 10, 2021 10:30 AM AMBULATORY - NONE [facility] Sep 14, 2021 09:00 AM AMBULATORY - NONE [facility] Sep 21, 2021 09:45 AM AMBULATORY - MEDICINE [facility] Sep 21, 2021 10:00 AM AMBULATORY - MEDICINE [facility] Sep 21, 2021 10:30 AM AMBULATORY - MEDICINE [facility] Sep 21, 2021 11:00 AM AMBULATORY - MEDICINE [facility] Sep 21, 2021 11:30 AM [facility] Lab Results: +/- 30 days of the encounter This section includes the Chemistry and Hematology Lab Results on record with [place] for the patient. Radiology Reports and Pathology Reports are provided separately, in subsequent sections.Lab Results This section contains the Chemistry/Hematology Results that were resulted 30 days before or 30 daysafter the date of the Encounter. Date/Time Source Result Type Result - Unit Interpretation Reference Range Comment Mar 23, 2021 09:57 AM [facility] POTASSIUM Specim en Type: PLASMA No comment enter ed. Ordering Provid er: RODO PINTO Report Released Date/Time: Mar 23, 2021 09:33 AM Reporting Lab: [facility] [id number] Performing Lab: [facility] [address] POTASSIUM 4.6 mmol/L 3.5-5.1 Mar 23, 2021 06:48 [facility] BASIC METABOLIC Specimen Type: PLASMA AM PANEL+MG Comment: Cancel lation Called to: Dora Mae MSA 03/23/2021 @ 0930 by AEK. 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 Ordering Provid er: RODO PINTO Report Released Date/Time: Mar 22, 2021 10:19 AM Reporting Lab: [facility] [id number] Performing Lab: [facility] [address] CREATININE 1.3 mg/dL H 0.7-1.2 UREA NITROGEN 25 mg/dL 8-26 GLUCOSE 170 mg/dL H 74-100 SODIUM 139 mmol/L 136-145 POTASSIUM canc mmol/L 3.5-5.1 CHLORIDE 109 mmol/L H 98-107 CO2 23 mmol/L 22-29 CALCIUM 9.0 mg/dL 8.4-10.2 MAGNESIUM 2.2 mg/dL 1.6-2.6 ANION GAP 7 mmol/L 5-15 ESTIMATED GFR(eGFR) 54 L >60 Mar 23, 2021 06:48 AM [facility] MAGNESIUM Specim en Type: PLASMA No comment enter ed. Ordering Provid er: RODO PINTO Report Released Date/Time: Mar 22, 2021 10:19 AM Reporting Lab: [facility] [phone] Performing Lab: [place] [address] MAGNESIUM 2.2 mg/dL 1.6-2.6 Mar 23, 2021 06:13 [facility] FINGERSTICK GLUCOSE Speci men Type: BLOOD AM Comment: [place] Nurse Notified Ordering Provid er: GRANTCARD II Report Released Date/Time: Mar 23, 2021 07:07 AM Reporting Lab: [facility] [address] [facility] [address] Performing Lab: [facility] [address] [facility] [address] FINGERSTICK GLUCOSE 168 mg/dL H 70-100 Mar 22, 2021 08:30 [facility] FINGERSTICK GLUCOSE Speci men Type: BLOOD PM Comment: VENOUS SAMPLE Ordering Provid er: GRANTCARD II Report Released Date/Time: Mar 23, 2021 08:23 AM Reporting Lab: [facility] [address] [facility] [address] Performing Lab: [facility] [address] [facility] [address] FINGERSTICK GLUCOSE 240 mg/dL H 70-100 Mar 22, 2021 04:28 [facility] FINGERSTICK GLUCOSE Speci men Type: BLOOD PM Comment: [place] Nurse Notified Ordering Provid er: GRANTCARD II Report Released Date/Time: Mar 22, 2021 04:42 PM Reporting Lab: [facility] [address] [facility] [address] Performing Lab: [facility] [address] [facility] [address] FINGERSTICK GLUCOSE 197 mg/dL H 70-100 Mar 22, 2021 11:28 [facility] FINGERSTICK GLUCOSE Speci men Type: BLOOD AM Comment: [place] Nurse Notified Ordering Provid er: TEAMCARD II Report Released Date/Time: Mar 22, 2021 12:14 PM Reporting Lab: [facility] [address] [facility] [address] Performing Lab: [facility] [address] [facility] [address] FINGERSTICK GLUCOSE 225 mg/dL H 70-100 Mar 22, 2021 06:13 [facility] FINGERSTICK GLUCOSE Speci men Type: BLOOD AM Comment: [place] Nurse Notified Ordering Provid er: TEAMCARD II Report Released Date/Time: Mar 22, 2021 12:13 PM Reporting Lab: [facility] [address] [facility] [address] Performing Lab: [facility] [address] [facility] [address] FINGERSTICK GLUCOSE 155 mg/dL H 70-100 Mar 21, 2021 07:36 [facility] FINGERSTICK GLUCOSE Speci men Type: BLOOD PM Comment: [place] Nurse Notified Ordering Provid er: DARLYN BURNS II Report Released Date/Time: Mar 21, 2021 08:53 PM Reporting Lab: [facility] [address] [facility] [address] Performing Lab: [facility] [address] [facility] [address] FINGERSTICK GLUCOSE 214 mg/dL H 70-100 Mar 21, 2021 04:00 [facility] FINGERSTICK GLUCOSE Speci men Type: BLOOD PM Comment: [place] Nurse Notified Ordering Provid er: DARLYN BURNS II Report Released Date/Time: Mar 21, 2021 04:27 PM Reporting Lab: [facility] [address] [facility] [address] Performing Lab: [facility] [address] [facility] [address] FINGERSTICK GLUCOSE 252 mg/dL H 70-100 Mar 21, 2021 11:43 [facility] FINGERSTICK GLUCOSE Speci men Type: BLOOD AM Comment: [place] Nurse Notified Ordering Provid er: DARLYN BURNS II Report Released Date/Time: Mar 21, 2021 12:08 PM Reporting Lab: [facility] [address] [facility] [address] Performing Lab: [facility] [address] [facility] [address] FINGERSTICK GLUCOSE 227 mg/dL H 70-100 Mar 21, 2021 06:45 AM [facility] ALBUMIN Specim en Type: PLASMA No comment enter ed. Ordering Provid er: LISBET WASHINGTON V Report Released Date/Time: Mar 20, 2021 10:27 AM Reporting Lab: [facility] [address] [facility] [address] Performing Lab: [facility] [address] [facility] [address] ALBUMIN 3.5 g/dL 3.5-5.2 Mar 21, 2021 06:45 [facility] BASIC METABOLIC Specimen Type: PLASMA AM PANEL+MG No comment enter ed. Ordering Provid er: RODO PINTO Report Released Date/Time: Mar 20, 2021 02:43 PM Reporting Lab: [facility] [address] [facility] [address] Performing Lab: [facility] [address] [facility] [address] CREATININE 1.5 mg/dL H 0.7-1.2 UREA NITROGEN 26 mg/dL 8-26 GLUCOSE 207 mg/dL H 74-100 SODIUM 140 mmol/L 136-145 POTASSIUM 4.4 mmol/L 3.5-5.1 CHLORIDE 109 mmol/L H 98-107 CO2 24 mmol/L 22-29 CALCIUM 9.0 mg/dL 8.4-10.2 MAGNESIUM 2.3 mg/dL 1.6-2.6 ANION GAP 7 mmol/L 5-15 ESTIMATED GFR(eGFR) 46 L >60 Mar 21, 2021 06:38 [facility] FINGERSTICK GLUCOSE Speci men Type: BLOOD AM Comment: [place] Nurse Notified Ordering Provid er: TEAM,CARD II Report Released Date/Time: Mar 21, 2021 07:23 AM Reporting Lab: [facility] [address] Performing Lab: [facility] [address] FINGERSTICK GLUCOSE 159 mg/dL H 70-100 Mar 20, 2021 08:27 [facility] FINGERSTICK GLUCOSE Speci men Type: BLOOD PM Comment: [place] Nurse Notified Ordering Provid er: GRANT,CARD II Report Released Date/Time: Mar 20, 2021 10:52 PM Reporting Lab: [facility] [address] [facility] [address] Performing Lab: [facility] [address] [facility] [address] FINGERSTICK GLUCOSE 224 mg/dL H 70-100 Mar 20, 2021 05:06 [facility] FINGERSTICK GLUCOSE Speci men Type: BLOOD PM Comment: [place] Nurse Notified Ordering Provid er: TEAM,CARD II Report Released Date/Time: Mar 20, 2021 05:27 PM Reporting Lab: [facility] [address] [facility] [address] Performing Lab: [facility] [address] FINGERSTICK GLUCOSE 183 mg/dL H 70-100 Mar 20, 2021 08:16 [facility] BASIC METABOLIC Specimen Type: PLASMA AM PANEL+MG No comment enter ed. Ordering Provid er: TUCKER JULIAN Report Released Date/Time: Mar 15, 2021 02:20 PM Reporting Lab: [facility] [address] Performing Lab: [facility] [address] CREATININE 1.6 mg/dL H 0.7-1.2 UREA NITROGEN 31 mg/dL H 8-26 GLUCOSE 216 mg/dL H 74-100 SODIUM 142 mmol/L 136-145 POTASSIUM 4.6 mmol/L 3.5-5.1 CHLORIDE 106 mmol/L 98-107 CO2 25 mmol/L 22-29 CALCIUM 9.3 mg/dL 8.4-10.2 MAGNESIUM 2.2 mg/dL 1.6-2.6 ANION GAP 11 mmol/L 5-15 ESTIMATED GFR(eGFR) 43 L >60 Mar 20, 2021 08:16 [facility] COVID-19 DIAGNOSTIC Speci men Type: NASOPHARYNGEAL AM PANEL (CEPHEID) Comment: Cephei d GeneXpert (618) Ordering Provid er: TUCKER JULIAN Report Released Date/Time: Mar 15, 2021 02:20 PM Reporting Lab: [facility] [address] Performing Lab: [facility] [address] COVID-19 (CEPHEID) Not Detected Not Dete cted Mar 05, 2021 09:42 [facility] BASIC METABOLIC Specimen Type: PLASMA AM PANEL+MG No comment enter ed. Ordering Provid er: VICENTE PELAEZ Report Released Date/Time: Feb 19, 2021 01:50 PM Reporting Lab: [facility] [address] Performing Lab: [facility] [address] CREATININE 1.4 mg/dL H 0.7-1.2 UREA NITROGEN [...] % 0 [place] 2020 08:45 /min mm[Hg] IS [facility] Social History: Smoking Status (Most current) and Tobacco Use (All prior to encounter date) This section includes the most current, and the historical, smoking and tobacco-related health factors from the [place] facility where the Encounter took place.Current Smoking Status This section includes the most current smoking, or tobacco-related health factor, from the [place] facility where the Encounter took place. Date/Time Current Smoking Status Comment Facility Mar 20, 2021 11:21 AM [facility] TOBACCO USE CURRENT NRT [facility] DECLINE Tobacco Use History This section includes a history of the smoking, or tobacco- related health factors, that were collected on or before the date of the Encounter. The data comes from the [place] facility where the Encounter took place. Date/Time Smoking Status/Tobacco Use Comment [facility]ly [facility] ity Nov 15, 2020 10:00 AM VA-TOBACCO DOESNT USE WI 30 MIN [facility] WAKEUP Nov 15, 2020 10:00 AM VA-TOBACCO USE 30 YEARS OR MORE [facility] Nov 15, 2020 10:00 AM VA-TOBACCO USE ADVICE [facility] Nov 15, 2020 10:00 AM VA-TOBACCO USE CHEMIST BIOLOGICAL NO [facility] Nov 15, 2020 10:00 AM VA-TOBACCO USE MED NO [facility] [facility] [facility] Nov 15, 2020 10:00 AM VA-TOBACCO USER EVERY DAY [facility] Jun 21, 2019 02:29 PM VA-TOBACCO USE 30 YEARS OR MORE [facility] Jun 21, 2019 02:29 PM VA-TOBACCO USE ADVICE [facility] Jun 21, 2019 02:29 PM VA-TOBACCO USE CHEMIST BIOLOGICAL NO [facility] Jun 21, 2019 02:29 PM VA-TOBACCO USE MED NO [facility] [facility] [facility] Jun 21, 2019 02:29 PM VA-TOBACCO USE WI 30 MIN OF WAKEUP [facility] Jun 21, 2019 02:29 PM VA-TOBACCO USER EVERY DAY [facility] Jun 09, 2018 03:48 PM VA-TOBACCO USE 30 YEARS OR MORE [facility] Jun 09, 2018 03:48 PM VA-TOBACCO USE ADVICE [facility] Jun 09, 2018 03:48 PM VA-TOBACCO USE CHEMIST BIOLOGICAL NO [facility] Jun 09, 2018 03:48 PM [facility]BACCO [facility] Jun 09, 2018 03:48 PM VA-TOBACCO USE [place] 30 MIN OF WAKEUP [facility] Jun 09, 2018 03:48 PM VA-TOBACCO USER EVERY DAY [facility] Jun 20, 2017 07:53 AM CURRENT TOBACCO USER [facility] Jun 19, 2016 08:41 AM CURRENT TOBACCO [facility]ER [facility] Jun 21, 2015 08:15 AM CURRENT TOBACCO USER [facility] Mar 22, 2014 10:03 AM CURRENT TOBACCO [facility] Mar 25, 2013 11:01 AM CURRENT TOBACCO [facility]ER [facility] Feb 05, 2012 08:55 AM CURRENT TOBACCO [facility] January 01, 2011 09:26 AM CURRENT TOBACCO [facility] Mar 07, 2010 10:02 AM CURRENT TOBACCO [facility]ER [facility] Feb 21, 2009 08:17 AM CURRENT TOBACCO USER [facility] Nov 06, 2007 10:02 AM CURRENT TOBACCO [facility] January 02, 2007 10:33 AM CURRENT TOBACCO USER [facility] Advance Directives: All historical and current Section Date Range: From patient's date of to the date document was created. This section includes ALL of a patient's completed or amended [place] Advance and Rescinded Directives. The entries below indicate that a directive exists for the patient, but an actual copy is not included with this document. The data comes from all [place] facilities. Date Advance Directives Provider Source Mar 06, 2005 ADVANCE DIRECTIVE GANESH RODRIGUEZ [facility] Encounter Notes: All associated encounter notes This section contains the clinical notes associated to the Encounter. Date/Time Encounter Note(s) Provider Source Mar 23, 2021 11:59 ANESTHESIOLOGY NOTE: MONET BOJORQUEZ [facility] AM LOCAL TITLE: ANESTHESIA POST-ANESTHESIA EVALUAT ION STANDARD TITLE: ANESTHESIOLOGY NOTE DATE OF NOTE: MAR 23, 2021@11:59 ENTRY DATE: MAR 23, 2021@11:59:58 AUTHOR: MONET BOJORQUEZ EXP COSIGNER: URGENCY: STATUS: COMPLETED POST-ANESTHESIA EVALUATION PACU PATIENT MET DISCHARGE CRITERIA -- Sanjana score of > or = 8 ANESTHESIA TYPE -- General VITAL SIGNS -- Vital signs stable NORMAL PHYSIOLOGIC SYSTEMS ASSESSMENT -- Neuro/Mental Health: appropriate mentation or p reoperative baseline Airway/Respiratory: normal respiratory status Cardiovascular: appropriate blood pressure, hea rt rate and rhythm Pain: comfortable, well controlled Postop nausea/vomiting: none STATUS AT SIGNOUT -- stable DISPOSITION -- out of OR phase II /es/ MONET BOJORQUEZ MD ANESTHESIOLOGIST Signed: 03/23/2021 12:00 Mar 23, 2021 11:57 ANESTHESIOLOGY NOTE: MONET BOJORQUEZ [facility] TITLE: ANESTHESIA PRE-INDUCTION NOTE STANDARD TITLE: ANESTHESIOLOGY NOTE DATE OF NOTE: MAR 23, 2021@11:57 ENTRY DATE: MAR 23, 2021@11:57:40 AUTHOR: MONET BOJORQUEZ EXP COSIGNER: URGENCY: STATUS: COMPLETED ANESTHESIA PREINDUCTION NOTE Patient identified by name and either date of b irth or full social security. -- Scheduled procedure: ^@@^ -- PREOPERATIVE ASSESSMENT -- ASA status: III Patient's preoperative assessment reviewed----- -- There are no significant changes, new condition s, or additions from the patient's anesthesia preoperative assessment No personal or family history of anesthesia com plications NPO status --- Met ASA guidelines (>2 hrs clear liquids, >6 hr s light meal, >8 hrs heavy meal) Gastroesophogeal Reflux Disease: No Functional Capacity in Measure of Exercise Felix shah before surgery (METS): 4-10 Obstructive sleep apnea: No ----SOCIAL HISTORY Tobacco: Yes Alcohol: Yes Substance use: No Naltrexone: No Buprenorphine: No Medications given today, MAR 23, 2021 SALINE FLUSH 10ML - MAR 23, 2021@06:14:29 GABAPENTIN 600MG - MAR 23, 2021@06:14:33 ASPIRIN 81MG - MAR 23, 2021@09:26:57 APIXABAN 5MG - MAR 23, 2021@09:27:01 FUROSEMIDE 40MG - MAR 23, 2021@09:27:05 EMPAGLIFLOZIN 25MG - MAR 23, 2021@09:27:07 FLUTICASONE/SALMETEROL 1 PUFF - MAR 23, 2021@09 :29:51 Physical Exam -- HT: 73.5 in [186.7 cm] (02/19/2021 12:45) WT: 231.2 lb [105.1 kg] (02/19/2021 12:45) BMI: 30.2 Vital signs stable Airway Exam: Mallampati Class: II Mouth opening: full Neck: full range of motion Thyromental distance: >6cm Dentition: edentulous Cardiac System: Cardiovascular System: Abnormal irregular rhythm Respiratory: Clear to auscultation, normal respiratory rate and effort Mental/Neuro exam: Alert, oriented, calm, cooperative Anesthetic technique -- General Anesthesia Monitors/Equipment: Standard montitors--------- -- Informed consent discussion of anesthesia plan The anesthetic plan has been discussed with the patient and/or responsible dealer compliance representative. The patient/dealer compliance representative has been encouraged to ask questions and any concerns have been addressed. The risks, benefits, side effects, and alternative options of the plan we re discussed. The patient/dealer compliance representative endorses understanding o f the information disclosed. The patient/dealer compliance representative voluntarily elects t o move forward with the anesthetic plan. Planned destination -- Other: darcy /billy/ MONET BOJORQUEZ MD ANESTHESIOLOGIST Signed: 03/23/2021 11:58
--- OUTSIDE RECORDS SUMMARY | 2022-04-02 16:04 | XMS_ITS ---
NON-OR ANESTHESIA PROCEDURES [facility] Encounter Summary Created on:March 23, 2021 Patient:PAUL MICHELE Sex:Male :1945 Author Organization [facility] Address [address] [place] [address] Care Team Providers Name Role Phone CROUCH [...] MEDICARE MEDICARE PART Jun 25, PART B [id number] Saumya QUINONES PATIENT (WNR) (M) B 2011 78A 0 AVID MEDICARE MEDICARE PART Sep 25, PART A [id number] Saumya QUINONES PATIENT (WNR) (M) A 2009 78A 0 AVID MEDICARE MEDICARE PART Sep 25, PART A [id number] Saumya MICHELE (WNR) (M) A 2009 78A [phone] AVID MEDICARE MEDICARE PART Sep 25, PART B [id number] Saumya MICHELE (WNR) (M) B 2009 78A [id number] AVID Selected Encounter This section includes the information on record at [place] for the Encounter. Date/Time Encounter Type Encounter Reason Provider Source Description Mar 23, 2021 ANESTH CORRECT NON-OR ANESTHESIA ICD-10-CM I48.19 MONET JONES 01:02 PM HEART RHYTHM PROCEDURES Other persistent ALESSIO atrial fibrillation with Provider Comments: Persistent atrial fibrillation ([facility] [id number]) IHE Encounter Template Text not used by [place] Assessments - Encounter Diagnoses This section includes the primary and secondary diagnoses documented for the Encounter. 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 This section includes future appointments and future orders which are active, pending orscheduled.Future Appointments This section includes appointments that were scheduled to occur 6 months from the date of the Encounter, up to a maximum of 20 appointments. The data comes from all [place] treatment facilities. Appointment Date/Time Appointment Type Appointment Facili ty Name Mar 26, 2021 09:00 AM AMBULATORY - NONE [facility] Apr 02, 2021 01:13 PM AMBULATORY - MEDICINE [facility] May 08, 2021 02:00 PM AMBULATORY - NONE [facility] Jun 13, 2021 02:00 PM AMBULATORY - NONE [facility] Jun 18, 2021 12:45 PM AMBULATORY - NONE [facility] Jun 18, 2021 01:30 PM AMBULATORY - MEDICINE [facility] Jun 20, 2021 10:00 AM AMBULATORY - MEDICINE [facility] Jul 11, 2021 01:00 PM AMBULATORY - NONE [facility] Jul 26, 2021 09:00 AM AMBULATORY - MEDICINE [facility] Jul 26, 2021 10:30 AM AMBULATORY - NONE [facility] Aug 03, 2021 10:46 AM AMBULATORY - MEDICINE [facility] Aug 08, 2021 07:00 AM AMBULATORY - NONE [facility] Aug 10, 2021 10:30 AM AMBULATORY - NONE [facility] Sep 14, 2021 09:00 AM AMBULATORY - NONE [facility] Sep 21, 2021 09:45 AM AMBULATORY - MEDICINE [facility] Sep 21, 2021 10:00 AM AMBULATORY - MEDICINE [facility] Sep 21, 2021 10:30 AM AMBULATORY - MEDICINE [facility] Sep 21, 2021 11:00 AM AMBULATORY - MEDICINE [facility] Sep 21, 2021 11:30 AM AMBULATORY - MEDICINE [facility] Lab Results: +/- 30 days of the encounter This section includes the Chemistry and Hematology Lab Results on record with [place] for the patient. Radiology Reports and Pathology Reports are provided separately, in subsequent sections.Lab Results This section contains the Chemistry/Hematology Results that were resulted 30 days before or 30 daysafter the date of the Encounter. Date/Time Source Result Type Result - Unit Interpretation Reference Range Comment Mar 23, 2021 09:57 AM [facility] POTASSIUM Specim en Type: PLASMA No comment enter ed. Ordering Provid er: RODO PINTO Report Released Date/Time: Mar 23, 2021 09:33 AM Reporting Lab: [facility] [phone] Performing Lab: [facility] [phone] POTASSIUM 4.6 mmol/L 3.5-5.1 Mar 23, 2021 06:48 [facility] BASIC METABOLIC Specimen Type: PLASMA AM PANEL+MG Comment: Cancel lation Called to: Dora Mae MSA 03/23/2021 @ 0930 by AEK. 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 Ordering Provid er: RODO PINTO Report Released Date/Time: Mar 22, 2021 10:19 AM Reporting Lab: [facility] [address] Performing Lab: [facility] [phone] CREATININE 1.3 mg/dL H 0.7-1.2 UREA NITROGEN 25 mg/dL 8-26 GLUCOSE 170 mg/dL H 74-100 SODIUM 139 mmol/L 136-145 POTASSIUM canc mmol/L 3.5-5.1 CHLORIDE 109 mmol/L H 98-107 CO2 23 mmol/L 22-29 CALCIUM 9.0 mg/dL 8.4-10.2 MAGNESIUM 2.2 mg/dL 1.6-2.6 ANION GAP 7 mmol/L 5-15 ESTIMATED GFR(eGFR) 54 L >60 Mar 23, 2021 06:48 AM [facility] MAGNESIUM Specim en Type: PLASMA No comment enter ed. Ordering Provid er: RODO PINTO Report Released Date/Time: Mar 22, 2021 10:19 AM Reporting Lab: [facility] [phone] Performing Lab: [facility] [address] [facility] [address] MAGNESIUM 2.2 mg/dL 1.6-2.6 Mar 23, 2021 06:13 [facility] FINGERSTICK GLUCOSE Speci men Type: BLOOD AM Comment: [place] Nurse Notified Ordering Provid er: GRANTCARD II Report Released Date/Time: Mar 23, 2021 07:07 AM Reporting Lab: [facility] [address] [facility] [address] Performing Lab: [facility] [address] [facility] [address] FINGERSTICK GLUCOSE 168 mg/dL H 70-100 Mar 22, 2021 08:30 [facility] FINGER[place]ICK GLUCOSE Speci men Type: BLOOD PM Comment: VENOUS SAMPLE Ordering Provid er: DARLYN BURNS II Report Released Date/Time: Mar 23, 2021 08:23 AM Reporting Lab: [facility] [address] [facility] [address] Performing Lab: [facility] [address] [facility] [address] FINGERSTICK GLUCOSE 240 mg/dL H 70-100 Mar 22, 2021 04:28 [facility] F[place] GLUCOSE Speci men Type: BLOOD PM Comment: [place] Nurse Notified Ordering Provid er: DARLYN BURNS II Report Released Date/Time: Mar 22, 2021 04:42 PM Reporting Lab: [facility] [address] [facility] [address] Performing Lab: [facility] [address] [facility] [address] FINGER[place]ICK GLUCOSE 197 mg/dL H 70-100 Mar 22, 2021 11:28 [facility] F[place] GLUCOSE Speci men Type: BLOOD AM Comment: [place] Nurse Notified Ordering Provid er: GRANTCARD II Report Released Date/Time: Mar 22, 2021 12:14 PM Reporting Lab: [facility] [address] [facility] [address] Performing Lab: [facility] [address] [facility] [address] FINGER[place]ICK GLUCOSE 225 mg/dL H 70-100 Mar 22, 2021 06:13 [facility] F[place]ER[place]ICK GLUCOSE Speci men Type: BLOOD AM Comment: [place] Nurse Notified Ordering Provid er: GRANTCARD II Report Released Date/Time: Mar 22, 2021 12:13 PM Reporting Lab: [facility] [address] [facility] [address] Performing Lab: [facility] [address] [facility] [address] [place] GLUCOSE 155 mg/dL H 70-100 Mar 21, 2021 07:36 [facility] F[place] GLUCOSE Speci men Type: BLOOD PM Comment: [place] Nurse Notified Ordering Provid er: GRANT,CARD II Report Released Date/Time: Mar 21, 2021 08:53 PM Reporting Lab: [facility] [address] [facility] [address] Performing Lab: [facility] [address] [facility] [address] FING[place]ICK GLUCOSE 214 mg/dL H 70-100 Mar 21, 2021 04:00 [facility] FINGERSTICK GLUCOSE Speci men Type: BLOOD PM Comment: [place] Nurse Notified Ordering Provid er: GRANT,CARD II Report Released Date/Time: Mar 21, 2021 04:27 PM Reporting Lab: [facility] [address] [facility] [address] Performing Lab: [facility] [address] [facility] [address] [place] GLUCOSE 252 mg/dL H 70-100 Mar 21, 2021 11:43 [facility] F[place] GLUCOSE Speci men Type: BLOOD AM Comment: [place] Nurse Notified Ordering Provid er: GRANTCARD II Report Released Date/Time: Mar 21, 2021 12:08 PM Reporting Lab: [facility] [address] [facility] [address] Performing Lab: [facility] [address] [facility] [address] [place] GLUCOSE 227 mg/dL H 70-100 Mar 21, 2021 06:45 AM [facility] ALBUMIN Specim en Type: PLASMA No comment enter ed. Ordering Provid er: LISBET W[place] V Report Released Date/Time: Mar 20, 2021 10:27 AM Reporting Lab: [facility] [address] [facility] [address] Performing Lab: [facility] [address] [facility] [address] ALBUMIN 3.5 g/dL 3.5-5.2 Mar 21, 2021 06:45 [facility] BASIC METABOLIC Specimen Type: PLASMA AM PANEL+MG No comment enter ed. Ordering Provid er: VELANGI,RODO S Report Released Date/Time: Mar 20, 2021 02:43 PM Reporting Lab: [facility] [address] [facility] [address] Performing Lab: [facility] [address] [facility] [address] CREATININE 1.5 mg/dL H 0.7-1.2 UREA NITROGEN 26 mg/dL 8-26 GLUCOSE 207 mg/dL H 74-100 SODIUM 140 mmol/L 136-145 POTASSIUM 4.4 mmol/L 3.5-5.1 CHLORIDE 109 mmol/L H 98-107 CO2 24 mmol/L 22-29 CALCIUM 9.0 mg/dL 8.4-10.2 MAGNESIUM 2.3 mg/dL 1.6-2.6 ANION GAP 7 mmol/L 5-15 ESTIMATED GFR(eGFR) 46 L >60 Mar 21, 2021 06:38 [facility] F[place] GLUCOSE Speci men Type: BLOOD AM Comment: [place] Nurse Notified Ordering Provid er: TEAM,CARD II Report Released Date/Time: Mar 21, 2021 07:23 AM Reporting Lab: [facility] [address] [facility] [address] Performing Lab: [facility] [address] [facility] [address] [place] GLUCOSE 159 mg/dL H 70-100 Mar 20, 2021 08:27 [facility] [place] GLUCOSE Speci men Type: BLOOD PM Comment: [place] Nurse Notified Ordering Provid er: GRANT,CARD II Report Released Date/Time: Mar 20, 2021 10:52 PM Reporting Lab: [facility] [address] [facility] [address] Performing Lab: [facility] [address] [facility] [address] F[place] GLUCOSE 224 mg/dL H 70-100 Mar 20, 2021 05:06 [facility] [place] GLUCOSE Speci men Type: BLOOD PM Comment: [place] Nurse Notified Ordering Provid er: GRANT,CARD II Report Released Date/Time: Mar 20, 2021 05:27 PM Reporting Lab: [facility] [address] [facility] [address] Performing Lab: [facility] [address] [facility] [address] [place] GLUCOSE 183 mg/dL H 70-100 Mar 20, 2021 08:16 [facility] BASIC METABOLIC Specimen Type: PLASMA AM PANEL+MG No comment enter ed. Ordering Provid er: TUCKER JULIAN Report Released Date/Time: Mar 15, 2021 02:20 PM Reporting Lab: [facility] [address] Performing Lab: [facility] [address] CREATININE 1.6 mg/dL H 0.7-1.2 UREA NITROGEN 31 mg/dL H 8-26 GLUCOSE 216 mg/dL H 74-100 SODIUM 142 mmol/L 136-145 POTASSIUM 4.6 mmol/L 3.5-5.1 CHLORIDE 106 mmol/L 98-107 CO2 25 mmol/L 22-29 CALCIUM 9.3 mg/dL 8.4-10.2 MAGNESIUM 2.2 mg/dL 1.6-2.6 ANION GAP 11 mmol/L 5-15 ESTIMATED GFR(eGFR) 43 L >60 Mar 20, 2021 08:16 [facility] COVID-19 DIAGNOSTIC Speci men Type: NASOPHARYNGEAL AM PANEL (CEPHEID) Comment: Wliey samuel GeneXpert ([id number]) Ordering Provid er: TUCKER JULIAN Report Released Date/Time: Mar 15, 2021 02:20 PM Reporting Lab: [facility] [address] Performing Lab: [facility] [address] COVID-19 (CEPHEID) Not Detected Not Dete cted Mar 05, 2021 09:42 [facility] BASIC METABOLIC Specimen Type: PLASMA AM PANEL+MG No comment enter ed. Ordering Provid er: VICENTE PELAEZ Report Released Date/Time: Feb 19, 2021 01:50 PM Reporting Lab: [facility] [address] Performing Lab: [facility] [address] CREATININE 1.4 mg/dL H 0.7-1.2 UREA NITROGEN [...] smoking and tobacco-related health factors from the [place] facility where the Encounter took place.Current Smoking Status This section includes the most current smoking, or tobacco-related health factor, from the PR facility where the Encounter took place. Date/Time Current Smoking Status Comment Facility Mar 20, 2021 11:21 AM [facility] TOBACCO USE CURRENT NRT [facility] DECLINE Tobacco Use History This section includes a history of the smoking, or tobacco- related health factors, that were collected on or before the date of the Encounter. The data comes from the [place] facility where the Encounter took place. 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 [facility] Nov 15, 2020 10:00 AM VA-TOBACCO USE MED NO [place] [facility] Nov 15, 2020 10:00 AM VA-TOBACCO USER EVERY DAY [facility] Jun 21, 2019 02:29 PM VA-TOBACCO USE 30 YEARS OR MORE [facility] Jun 21, 2019 02:29 PM VA-TOBACCO USE ADVICE [place] [facility] Jun 21, 2019 02:29 PM 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 [facility] Jun 21, 2019 02:29 PM VA-TOBACCO USE MED NO [place] [facility] Jun 21, 2019 02:29 PM VA-TOBACCO USE [place] 30 MIN OF WAKEUP [facility] Jun 21, 2019 02:29 PM VA-TOBACCO USER EVERY DAY [facility] Jun 09, 2018 03:48 PM VA-TOBACCO USE 30 YEARS OR MORE [facility] Jun 09, 2018 03:48 PM [facility]BACCO [facility] Jun 09, 2018 03:48 PM 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 [facility] Jun 09, 2018 03:48 PM VA-TOBACCO USE MED NO [facility] Jun 09, 2018 03:48 PM VA-TOBACCO USE [place] 30 MIN OF WAKEUP [facility] Jun 09, 2018 03:48 PM VA-TOBACCO USER EVERY DAY [facility] Jun 20, 2017 07:53 AM CURRENT TOBACCO USER [facility] Jun 19, 2016 08:41 AM CURRENT TOBACCO USER [facility] Jun 21, 2015 08:15 AM CURRENT TOBACCO USER [facility] Mar 22, 2014 10:03 AM CURRENT TOBACCO USER [facility] Mar 25, 2013 11:01 AM CURRENT TOBACCO USER [facility] Feb 05, 2012 08:55 AM CURRENT TOBACCO USER [facility] January 01, 2011 09:26 AM CURRENT TOBACCO USER [facility] Mar 07, 2010 10:02 AM CURRENT TOBACCO USER [facility] Feb 21, 2009 08:17 AM CURRENT TOBACCO USER [facility] Nov 06, 2007 10:02 AM CURRENT TOBACCO USER [facility] January 02, 2007 10:33 AM CURRENT TOBACCO USER [facility] Advance Directives: All historical and current Section Date Range: From patient's date of to the date document was created. This section includes ALL of a patient's completed or amended [place] Advance and Rescinded Directives. The entries below indicate that a directive exists for the patient, but an actual copy is not included with this document. The data comes from all [place] facilities. Date Advance Directives Provider Source Mar 06, 2005 ADVANCE DIRECTIVE GANESH RODRIGUEZ [facility] Encounter Notes: All associated encounter notes This section contains the clinical notes associated to the Encounter. Date/Time Encounter Note(s) Provider Source Mar 23, 2021 01:02 PM ANESTHESIOLOGY NOTE: MARLYS BENJAMIN [facility] LOCAL TITLE: ANESTHESIA NON OR PROCEDURE NOTE R N STANDARD TITLE: ANESTHESIOLOGY NOTE DATE OF NOTE: MAR 23, 2021@13:02 ENTRY DATE: MAR 23, 2021@13:03 AUTHOR: AMARI,MARLYS M R EXP COSIGNER: URGENCY: STATUS: COMPLETED Prin[place]al Procedure: cardioverson Location of Procedure: [id number] Date: March 23, 2021 Anesthesia start time: 1104 Procedure start time: Procedure end time: Anesthesia end time: 1141 Principal trainmaster: Marlys Benjamin CRNA Anesthesiologist: Trinity Jones MD. 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
--- OUTSIDE RECORDS SUMMARY | 2022-04-02 16:04 | XMS_ITS ---
DAILY HOSPITALIZATION DATA [facility] Encounter Summary Created on:March 22, 2021 Patient:PAUL MICHELE Sex:Male :1945 Author Organization Department [facility] Address [address] [place] [address] Support Name Relationship Address Phone NIDIA MICHELE Unavailable [address] [place] [address] NIDIA MICHELE Unavailable [address] [place] [phone] Insurance Providers: All historical and current Section [...] MEDICARE MEDICARE PART Jun 25, PART B [id number] Saumya QUINONES PATIENT (WNR) (M) B 2011 78A 0 AVID MEDICARE MEDICARE PART Sep 25, PART A [id number] Saumya QUINONES PATIENT (WNR) (M) A 2009 78A 0 AVID MEDICARE MEDICARE PART Sep 25, PART A [id number] Saumya MICHELE (WNR) (M) A 2009 78A [id number] AVID MEDICARE MEDICARE PART Sep 25, PART B [id number] Saumya MICHELE (WNR) (M) B 2009 [id number] [id number] AVID Selected Encounter This section includes the information on record at [facility] for the Encounter. Date/Time Encounter Type Encounter Description Reason Provider Source Mar 22, 2021 Inpatient Visit DAILY HOSPITALIZATION Sofia LAWRENCE 01:46 AM DATA IHE Encounter Template Text not used by [facility] Plan of Treatment: Future Appointments (+ 6 months) and Future Tests (+/- 45 days) The Plan of Treatment section includes [facility] care [facility] the [facility] This section includes future appointments and future orders which are active, pending orscheduled.Future Appointments This section includes appointments that were scheduled to occur 6 months from the date of the Encounter, up to a maximum of 20 appointments. The data comes from all [facility] treatment facilities. Appointment Date/Time Appointment Type Appointment Facili ty Name Mar 23, 2021 02:30 PM AMBULATORY - MEDICINE [facility] Mar 23, 2021 03:00 PM AMBULATORY - MEDICINE [facility] Mar 26, 2021 09:00 AM AMBULATORY - NONE [facility] Apr 02, 2021 01:13 PM [facility] May 08, 2021 02:00 PM AMBULATORY - NONE [facility] Jun 13, 2021 02:00 PM AMBULATORY - NONE [facility] Jun 18, 2021 12:45 PM AMBULATORY - NONE [facility] Jun 18, 2021 01:30 PM AMBULATORY - MEDICINE [facility] Jun 20, 2021 10:00 AM AMBULATORY - MEDICINE [facility] Jul 11, 2021 01:00 PM AMBULATORY - NONE [facility] Jul 26, 2021 09:00 AM AMBULATORY - MEDICINE [facility] Jul 26, 2021 10:30 AM AMBULATORY - NONE [facility] Aug 03, 2021 10:46 AM AM[facility]ULATORY - [facility] Aug 08, 2021 07:00 AM AMBULATORY - NONE [facility] Aug 10, 2021 10:30 AM AMBULATORY - NONE [facility] Sep 14, 2021 09:00 AM AMBULATORY - NONE [facility] Sep 21, 2021 09:45 AM AMBULATORY - MEDICINE [facility] Sep 21, 2021 10:00 AM AMBULATORY - MEDICINE [facility] Sep 21, 2021 10:30 AM AMBULATORY - MEDICINE [facility] Sep 21, 2021 11:00 AM AMBULATORY - MEDICINE [facility] Lab Results: +/- 30 days of the encounter This section includes the Chemistry and Hematology Lab Results on record with [facility] for the patient. Radiology Reports and Pathology Reports are provided separately, in subsequent sections.Lab Results This section contains the Chemistry/Hematology Results that were resulted 30 days before or 30 daysafter the date of the Encounter. Date/Time Source Result Type Result - Unit Interpretation Reference Range Comment Mar 23, 2021 09:57 AM [facility] POTASSIUM Specim en Type: PLASMA No comment enter ed. Ordering Provid er: VELANGI,RODO S Report Released Date/Time: Mar 23, 2021 09:33 AM Reporting Lab: [facility] [address] [facility] [address] Performing Lab: [facility] [address] [facility] [address] POTASSIUM 4.6 3.5-5.1 Mar 23, 2021 06:48 AM [facility] MAGNESIUM Specim en Type: PLASMA No comment enter ed. Ordering Provid er: RODO PINTO Report Released Date/Time: Mar 22, 2021 10:19 AM Reporting Lab: [facility] [address] [facility] [address] Performing Lab: [facility] [address] [facility] [address] MAGNESIUM 2.2 1.6-2.6 Mar 23, 2021 06:48 [facility] BASIC METABOLIC Specimen Type: PLASMA AM PANEL+MG Comment: Cancel lation Called to: Dora Mae MSA 03/23/2021 @ [id number] by AEK. 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 Ordering Provid er: RODO PINTO Report Released Date/Time: Mar 22, 2021 10:19 AM Reporting Lab: [facility] [address] [facility] [address] Performing Lab: [facility] [address] [facility] [address] CREATININE 1.3 H 0.7-1.2 UREA NITROGEN 25 8-26 GLUCOSE 170 H 74-100 SODIUM 139 136-145 POTASSIUM canc 3.5-5.1 CHLORIDE 109 H 98-107 CO2 23 22-29 CALCIUM 9.0 8.4-10.2 MAGNESIUM 2.2 1.6-2.6 ANION GAP 7 5-15 ESTIMATED GFR(eGFR) 54 L >60 Mar 23, 2021 06:13 [facility] [place] GLUCOSE Speci men Type: BLOOD AM Comment: Abram rock Nurse Notified Ordering Provid er: DARLYN BURNS II Report Released Date/Time: Mar 23, 2021 07:07 AM Reporting Lab: [facility] [address] [facility] [address] Performing Lab: [facility] [address] [facility] [address] F[place] GLUCOSE 168 H 70-100 Mar 22, 2021 08:30 [facility] [place] GLUCOSE Speci men Type: BLOOD PM Comment: VENOUS SAMPLE Ordering Provid er: DARLYN BURNS II Report Released Date/Time: Mar 23, 2021 08:23 AM Reporting Lab: [facility] [address] [facility] [address] Performing Lab: [facility] [address] [facility] [address] [place] GLUCOSE 240 H 70-100 Mar 22, 2021 04:28 [facility] [place] GLUCOSE Speci men Type: BLOOD PM Comment: Abram Welch Notified Ordering Provid er: GRANTCARD II Report Released Date/Time: Mar 22, 2021 04:42 PM Reporting Lab: [facility] [address] [facility] [address] Performing Lab: [facility] [address] [facility] [address] [place] GLUCOSE 197 H 70-100 Mar 22, 2021 11:28 [facility] [place] GLUCOSE Speci men Type: BLOOD AM Comment: Abram Welch Notified Ordering Provid er: GRANTCARD II Report Released Date/Time: Mar 22, 2021 12:14 PM Reporting Lab: [facility] [address] [facility] [address] Performing Lab: [facility] [address] [facility] [address] [place] GLUCOSE 225 H 70-100 Mar 22, 2021 06:13 [facility] [place] GLUCOSE Speci men Type: BLOOD AM Comment: Abram Welch Notified Ordering Provid er: DARLYN BRUNS II Report Released Date/Time: Mar 22, 2021 12:13 PM Reporting Lab: [facility] [address] [facility] [address] Performing Lab: [facility] [address] [facility] [address] [place] GLUCOSE 155 H 70-100 Mar 21, 2021 07:36 [facility] [place] GLUCOSE Speci men Type: BLOOD PM Comment: Abram Welch Notified Ordering Provid er: DARLYN BURNS II Report Released Date/Time: Mar 21, 2021 08:53 PM Reporting Lab: [facility] [address] [facility] [address] Performing Lab: [facility] [address] [facility] [address] [place] GLUCOSE 214 H 70-100 Mar 21, 2021 04:00 [facility] [place] GLUCOSE Speci men Type: BLOOD PM Comment: Save R esult Nurse Notified Ordering Provid er: DARLYN BURNS II Report Released Date/Time: Mar 21, 2021 04:27 PM Reporting Lab: [facility] [address] [facility] [address] Performing Lab: [facility] [address] [facility] [address] [place] GLUCOSE 252 H 70-100 Mar 21, 2021 11:43 [facility] [place] GLUCOSE Speci men Type: BLOOD AM Comment: Abram rock Nurse Notified Ordering Provid er: DARLYN BURNS II Report Released Date/Time: Mar 21, 2021 12:08 PM Reporting Lab: [facility] [address] [facility] [address] Performing Lab: [facility] [address] [facility] [address] [place] GLUCOSE 227 H 70-100 Mar 21, 2021 06:45 AM [facility] ALBUMIN Specim en Type: PLASMA No comment enter ed. Ordering Provid er: LISBET [place] V Report Released Date/Time: Mar 20, 2021 10:27 AM Reporting Lab: [facility] [address] [facility] [address] Performing Lab: [facility] [address] [facility] [address] ALBUMIN 3.5 3.5-5.2 Mar 21, 2021 06:45 [facility] BASIC METABOLIC Specimen Type: PLASMA AM PANEL+MG No comment enter ed. Ordering Provid er: RODO PINTO Report Released Date/Time: Mar 20, 2021 02:43 PM Reporting Lab: [facility] [address] [facility] [address] Performing Lab: [facility] [address] [facility] [address] CREATININE 1.5 H 0.7-1.2 UREA NITROGEN 26 8-26 GLUCOSE 207 H 74-100 SODIUM 140 136-145 POTASSIUM 4.4 3.5-5.1 CHLORIDE 109 H 98-107 CO2 24 22-29 CALCIUM 9.0 8.4-10.2 MAGNESIUM 2.3 1.6-2.6 ANION GAP 7 5-15 ESTIMATED GFR(eGFR) 46 L >60 Mar 21, 2021 06:38 [facility] [place] GLUCOSE Speci men Type: BLOOD AM Comment: Abram rock Nurse Notified Ordering Provid er: DARLYN BURNS II Report Released Date/Time: Mar 21, 2021 07:23 AM Reporting Lab: [facility] [address] [facility] [address] Performing Lab: [facility] [address] [facility] [address] [place] GLUCOSE 159 H 70-100 Mar 20, 2021 08:27 [facility] [place] GLUCOSE Speci men Type: BLOOD PM Comment: Abram rock Nurse Notified Ordering Provid er: TEAM,CARD II Report Released Date/Time: Mar 20, 2021 10:52 PM Reporting Lab: [facility] [address] [facility] [address] Performing Lab: [facility] [address] [facility] [address] [place] GLUCOSE 224 H 70-100 Mar 20, 2021 05:06 [facility] [place] GLUCOSE Speci men Type: BLOOD PM Comment: Abram rock Nurse Notified Ordering Provid er: TEAM,CARD II Report Released Date/Time: Mar 20, 2021 05:27 PM Reporting Lab: [facility] [address] [facility] [address] Performing Lab: [facility] [address] [facility] [address] [place] GLUCOSE 183 H 70-100 Mar 20, 2021 08:16 [facility] COVID-19 DIAGNOSTIC Speci men Type: NASOPHARYNGEAL AM PANEL (CEPHEID) Comment: Wiley samuel GeneXpert (618) Ordering Provid er: TUCKER JULIAN Report Released Date/Time: Mar 15, 2021 02:20 PM Reporting Lab: [facility] [address] [facility] [address] Performing Lab: [facility] [address] [facility] [address] COVID-19 (CEPHEID) Not Detected Not Dete cted Mar 20, 2021 08:16 [facility] BASIC METABOLIC Specimen Type: PLASMA AM PANEL+MG No comment enter ed. Ordering Provid er: TUCKER JULIAN Report Released Date/Time: Mar 15, 2021 02:20 PM Reporting Lab: [facility] [address] [facility] [address] Performing Lab: [facility] [address] [facility] [address] CREATININE 1.6 H 0.7-1.2 UREA NITROGEN 31 H 8-26 GLUCOSE 216 H 74-100 SODIUM 142 136-145 POTASSIUM 4.6 3.5-5.1 CHLORIDE 106 98-107 CO2 25 22-29 CALCIUM 9.3 8.4-10.2 MAGNESIUM 2.2 1.6-2.6 ANION GAP 11 5-15 ESTIMATED GFR(eGFR) 43 L >60 Mar 05, 2021 09:42 [facility] BASIC METABOLIC Specimen Type: PLASMA AM PANEL+MG No comment enter ed. Ordering Provid er: VICENTE PELAEZ Report Released Date/Time: Feb 19, 2021 01:50 PM Reporting Lab: [facility] [address] [facility] [address] Performing Lab: [facility] [address] CREATININE 1.4 H 0.7-1.2 UREA NITROGEN 22 8-26 GLUCOSE 241 H 74-100 SODIUM 139 136-145 POTASSIUM 4.6 3.5-5.1 CHLORIDE 105 98-107 CO2 24 22-29 CALCIUM 9.1 8.4-10.2 MAGNESIUM 2.1 1.6-2.6 ANION GAP 10 5-15 ESTIMATED GFR(eGFR) 50 L >60 Vital Signs: All taken on the encounter date This section contains inpatient and outpatient Vital Signs collected on the date of the Encounter. Date/Time Temperature Pulse Blood Respiratory SP02 Pain Height Weight Axel dy Source Pressure Rate Mass Index Mar 22, 97.1 F 68 136/67 20 /min 93 % 0 [place] 2020 08:55 /min mm[Hg] [facility] Social History: Smoking Status (Most current) and Tobacco Use (All prior to encounter date) This section includes the most current, and the historical, smoking and tobacco-related health factors from the [facility] facility where the Encounter took place.Current Smoking Status This section includes the most current smoking, or tobacco-related health factor, from the [facility] facility where the Encounter took place. Date/Time Current Smoking Status Comment Facility Mar 20[facility] 2021 11:[facility] NRT [facility] DECLINE Tobacco Use History This section includes a history of the smoking, or tobacco- related health factors, that were collected on or before the date of the Encounter. The data comes from the [facility] facility where the Encounter took place. 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 [facility] Nov 15, 2020 10:00 AM VA-TOBACCO USE MED NO [place] [facility] Nov 15, 2020 10:00 AM VA-TOBACCO USER EVERY DAY [facility] Jun 21, 2019 02:29 PM VA-TOBACCO USE 30 YEARS OR MORE [facility] Jun 21, 2019 02:29 PM VA-TOBACCO USE ADVICE [place] [facility] Jun 21, 2019 02:29 PM 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 [facility] Jun 21, 2019 02:29 PM VA-TOBACCO USE MED NO [place] [facility] Jun 21, 2019 02:29 PM VA-TOBACCO USE [place] 30 MIN OF WAKEUP [facility] Jun 21, 2019 02:29 PM VA-TOBACCO USER EVERY DAY [facility] Jun 09, 2018 03:48 PM VA-TOBACCO USE 30 YEARS OR MORE [facility] Jun 09, 2018 03:48 PM VA-TOBACCO USE ADVICE [place] [facility] Jun 09, 2018 03:48 PM 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 Mar 22, 2014 10:03 AM [facility] Mar 25, 2013 11:01 AM CURRENT [facility]AC[facility] Feb 05, 2012 08:55 AM CURRENT [facility]AC[facility] January 01, 2011 09:26 AM CURRENT [facility]AC[facility] Mar 07, 2010 10:02 AM CUR[facility] Feb 21, 2009 08:17 AM [facility] Nov 06, 2007 10:02 AM CURRENT [facility]BACCO [facility] January 02, 2007 10:33 AM CURRENT TOBACCO USER [facility] Advance Directives: All historical and current Section Date Range: From patient's date of to the date document was created. This section includes ALL of a patient's completed or amended [facility] Advance and Rescinded Directives. The entries below indicate that a directive exists for the patient, but an actual copy is not included with this document. The data comes from all [facility] facilities. Date Advance Directives Provider Source Mar 06, 2005 ADVANCE DIRECTIVE GANEHS RODRIGUEZ [facility]
--- OUTSIDE RECORDS SUMMARY | 2022-04-02 16:04 | XMS_ITS | Encounter Summary ---
:1945 Author Organization [facility] Address [address] [place], [place] [id number] Support Name Relationship Address Phone NIDIA MICHELE Unavailable [address] [phone] [place]ERS [address] NIDIA MICHELE Unavailable [address] [phone] [place] [address] Insurance Providers: All historical and current Section Date Range: From patient's date of to the date document was created.This section includes the names of all active insurance providers for the patient. Insurance Type of Plan Start of End of Group Member Insurance Policy P atient's Provider Coverage Name Policy Policy Number ID Provider's Pyle's Relationship Coverage Coverage Telephone Name to Policy Number Pyle MEDICARE MEDICARE PART Jun 25, PART B [id number] Saumya QUINONES PATIENT (WNR) (M) B 2011 78A 0 AVID MEDICARE MEDICARE PART Sep 25, PART A [id number] Saumya QUINONES PATIENT (WNR) (M) A 2009 78A 0 AVID MEDICARE MEDICARE PART Sep 25, PART A [id number] Saumya MICHELE ATTHOMAS (WNR) (M) A 2009 78A [id number] AVID MEDICARE MEDICARE PART Sep 25, PART B [id number] Saumya MICHELE ATTHOMAS (WNR) (M) B 2009 [id number] AVID Selected Encounter This section includes the information on record at [place] for the Encounter. Date/Time Encounter Type Encounter Description Reason Provider Source Mar 23, 2021 01:00 Inpatient Visit ADMIN PAT ACTIVTIES SYS [place],[facility] AM ([facility]ASNON[facility]) IHE Encounter Template Text not used by [place] Plan of Treatment: Future Appointments (+ 6 months) and Future Tests (+/- 45 days) The Plan of Treatment section includes future care activities for the patient [facility] [place] [facility] This section includes future appointments and future orders which are active, pending orscheduled.Future Appointments This section includes appointments that were scheduled to occur 6 months from the date of the Encounter, up to a maximum of 20 appointments. The data comes from all [place] treatment facilities. Appointment Date/Time Appointment Type Appointment Facili ty Name Mar 26, 2021 09:00 AM AMBULATORY - NONE [facility] Apr 02, 2021 01:13 PM AMBULATORY - MEDICINE [facility] May 08, 2021 02:00 PM [facility]ORY - [facility] Jun 13, 2021 02:00 PM AMBULATORY - NONE [facility] Jun 18, 2021 12:45 PM AMBULATORY - [facility] Jun 18, 2021 01:30 PM AMBULATORY - MEDICINE [facility] Jun 20, 2021 10:00 AM AMBULATORY - MEDICINE [facility] Jul 11, 2021 01:00 PM AMBULATORY - [facility] Jul 26, 2021 09:00 AM AMBULATORY - MEDICINE [facility] Jul 26, 2021 10:30 AM AM[facility]ULATORY - [facility] Aug 03, 2021 10:46 AM AMBULATORY - MEDICINE [facility] Aug 08, 2021 07:00 AM AMBULATORY - NONE [facility] Aug 10, 2021 10:30 AM AMBULATORY - NONE [facility] Sep 14, 2021 09:00 AM AM[facility]ULATORY - [facility] Sep 21, 2021 09:45 AM AMBULATORY - MEDICINE [facility] Sep 21, 2021 10:00 AM AMBULATORY - MEDICINE [facility] Sep 21, 2021 10:30 AM AMBULATORY - MEDICINE [facility] Sep 21, 2021 11:00 AM AMBULATORY - MEDICINE [facility] Sep 21, 2021 11:30 AM AMBULATORY - MEDICINE [facility] Lab Results: +/- 30 days of the [...] Comment Mar 23, 2021 09:[address] [facility] POTASSIUM Specim en Type: PLASMA No comment enter ed. Ordering Provid er: RODO PINTO Report Released Date/Time: Mar 23, 2021 09:33 AM Reporting Lab: [facility] [address] [facility] [address] Performing Lab: [facility] [address] [facility] [address] POTASSIUM 4.6 3.5-5.1 Mar 23, 2021 06:[address] [facility] MAGNESIUM Specim en Type: PLASMA No comment enter ed. Ordering Provid er: RODO PINTO Report Released Date/Time: Mar 22, 2021 10:19 AM Reporting Lab: [facility] [address] [facility] [address] Performing Lab: [facility] [address] [facility] [address] MAGNESIUM 2.2 1.6-2.6 Mar 23, 2021 06:48 [facility] BASIC METABOLIC Specimen Type: PLASMA AM PANEL+MG Comment: Cancel lation Called to: Dora Mae MSA 03/23/2021 @ 0930 by AEK. 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 Ordering Provid er: RODO PINTO Report Released Date/Time: Mar 22, 2021 10:19 AM Reporting Lab: [facility] [address] [facility] [address] Performing Lab: [facility] [address] [facility] [address] CREATININE 1.3 H 0.7-1.2 UREA NITROGEN 25 8-26 GLUCOSE 170 H 74-100 SODIUM 139 136-145 POTASSIUM canc 3.5-5.1 CHLORIDE 109 H 98-107 CO2 23 22-29 CALCIUM 9.0 8.4-10.2 MAGNESIUM 2.2 1.6-2.6 ANION GAP 7 5-15 ESTIMATED GFR(eGFR) 54 L >60 Mar 23, 2021 06:13 [facility] FINGERSTICK GLUCOSE Speci men Type: BLOOD AM Comment: [place] Nurse Notified Ordering Provid er: DARLYN BURNS II Report Released Date/Time: Mar 23, 2021 07:07 AM Reporting Lab: [facility] [address] [facility] [address] Performing Lab: [facility] [address] [facility] [address] FINGERSTICK GLUCOSE 168 H 70-100 Mar 22, 2021 08:30 [facility] FINGERSTICK GLUCOSE Speci men Type: BLOOD PM Comment: VENOUS SAMPLE Ordering Provid er: TEAM,CARD II Report Released Date/Time: Mar 23, 2021 08:23 AM Reporting Lab: [facility] [address] [facility] [address] Performing Lab: [facility] [address] [facility] [address] FINGERSTICK GLUCOSE 240 H 70-100 Mar 22, 2021 04:28 [facility] FINGERSTICK GLUCOSE Speci men Type: BLOOD PM Comment: Abram Welch Notified Ordering Provid er: GRANTCARD II Report Released Date/Time: Mar 22, 2021 04:42 PM Reporting Lab: [facility] [address] [facility] [address] Performing Lab: [facility] [address] [facility] [address] FINGERSTICK GLUCOSE 197 H 70-100 Mar 22, 2021 11:28 [facility] FINGERSTICK GLUCOSE Speci men Type: BLOOD AM Comment: Abram Welch Notified Ordering Provid er: GRANTCARD II Report Released Date/Time: Mar 22, 2021 12:14 PM Reporting Lab: [facility] [address] [facility] [address] Performing Lab: [facility] [address] [facility] [address] FINGERSTICK GLUCOSE 225 H 70-100 Mar 22, 2021 06:13 [facility] FINGERSTICK GLUCOSE Speci men Type: BLOOD AM Comment: Abram Welch Notified Ordering Provid er: DARLYN BURNS II Report Released Date/Time: Mar 22, 2021 12:13 PM Reporting Lab: [facility] [address] [facility] [address] Performing Lab: [facility] [address] [facility] [address] FINGERSTICK GLUCOSE 155 H 70-100 Mar 21, 2021 07:36 [facility] FINGERSTICK GLUCOSE Speci men Type: BLOOD PM Comment: Abram Welch Notified Ordering Provid er: GRANTCARD II Report Released Date/Time: Mar 21, 2021 08:53 PM Reporting Lab: [facility] [address] [facility] [address] Performing Lab: [facility] [address] [facility] [address] FINGERSTICK GLUCOSE 214 H 70-100 Mar 21, 2021 04:00 [facility] FINGERSTICK GLUCOSE Speci men Type: BLOOD PM Comment: Save R esult Nurse Notified Ordering Provid er: DARLYN BURNS II Report Released Date/Time: Mar 21, 2021 04:27 PM Reporting Lab: [facility] [address] [facility] [address] Performing Lab: [facility] [address] [facility] [address] FINGERSTICK GLUCOSE 252 H 70-100 Mar 21, 2021 11:43 [facility] FINGERSTICK GLUCOSE Speci men Type: BLOOD AM Comment: [place] Nurse Notified Ordering Provid er: DARLYN BURNS II Report Released Date/Time: Mar 21, 2021 12:08 PM Reporting Lab: [facility] [address] [facility] [address] Performing Lab: [facility] [address] [facility] [address] FINGERSTICK GLUCOSE 227 H 70-100 Mar 21, 2021 06:[address] [facility] ALBUMIN Specim en Type: PLASMA No comment enter ed. Ordering Provid er: LISBET WASHINGTON V Report Released Date/Time: Mar 20, 2021 10:27 AM Reporting Lab: [facility] [address] [facility] [address] Performing Lab: [facility] [address] [facility] [address] ALBUMIN 3.5 3.5-5.2 Mar 21, 2021 06:45 [facility] BASIC METABOLIC Specimen Type: PLASMA AM PANEL+MG No comment enter ed. Ordering Provid er: RODO PINTO Report Released Date/Time: Mar 20, 2021 02:43 PM Reporting Lab: [facility] [address] [facility] [address] Performing Lab: [facility] [address] [facility] [address] CREATININE 1.5 H 0.7-1.2 UREA NITROGEN 26 8-26 GLUCOSE 207 H 74-100 SODIUM 140 136-145 POTASSIUM 4.4 3.5-5.1 CHLORIDE 109 H 98-107 CO2 24 22-29 CALCIUM 9.0 8.4-10.2 MAGNESIUM 2.3 1.6-2.6 ANION GAP 7 5-15 ESTIMATED GFR(eGFR) 46 L >60 Mar 21, 2021 06:38 [facility] FINGERSTICK GLUCOSE Speci men Type: BLOOD AM Comment: [place] Nurse Notified Ordering Provid er: DARLYN BURNS II Report Released Date/Time: Mar 21, 2021 07:23 AM Reporting Lab: [facility] [address] [facility] [address] Performing Lab: [facility] [address] [facility] [address] FINGERSTICK GLUCOSE 159 H 70-100 Mar 20, 2021 08:27 [facility] FINGERSTICK GLUCOSE Speci men Type: BLOOD PM Comment: [place] Nurse Notified Ordering Provid er: TEAM,CARD II Report Released Date/Time: Mar 20, 2021 10:52 PM Reporting Lab: [facility] [address] [facility] [address] Performing Lab: [facility] [address] [facility] [address] FINGERSTICK GLUCOSE 224 H 70-100 Mar 20, 2021 05:06 [facility] FINGERSTICK GLUCOSE Speci men Type: BLOOD PM Comment: [place] Nurse Notified Ordering Provid er: TEAM,CARD II Report Released Date/Time: Mar 20, 2021 05:27 PM Reporting Lab: [facility] [address] [facility] [address] Performing Lab: [facility] [address] [facility] [address] FINGERSTICK GLUCOSE 183 H 70-100 Mar 20, 2021 08:16 [facility] COVID-19 DIAGNOSTIC Speci men Type: NASOPHARYNGEAL AM PANEL (CEPHEID) Comment: Wiley samuel GeneXpert ([id number]) Ordering Provid er: TUCKER JULIAN Report Released Date/Time: Mar 15, 2021 02:20 PM Reporting Lab: [facility] [address] [facility] [address] Performing Lab: [facility] [address] [facility] [address] COVID-19 (CEPHEID) Not Detected Not Dete cted Mar 20, 2021 08:16 [facility] BASIC METABOLIC Specimen Type: PLASMA AM PANEL+MG No comment enter ed. Ordering Provid er: TUCKER JULIAN Report Released Date/Time: Mar 15, 2021 02:20 PM Reporting Lab: [facility] [address] [facility] [address] Performing Lab: [facility] [address] [facility] [address] CREATININE 1.6 H 0.7-1.2 UREA NITROGEN 31 H 8-26 GLUCOSE 216 H 74-100 SODIUM 142 136-145 POTASSIUM 4.6 3.5-5.1 CHLORIDE 106 98-107 CO2 25 22-29 CALCIUM 9.3 8.4-10.2 MAGNESIUM 2.2 1.6-2.6 ANION GAP 11 5-15 ESTIMATED GFR(eGFR) 43 L >60 Mar 05, 2021 09:42 [facility] BASIC METABOLIC Specimen Type: PLASMA AM PANEL+MG No comment enter ed. Ordering Provid er: VICENTE PELAEZ Report Released Date/Time: Feb 19, 2021 01:50 PM Reporting Lab: [facility] [address] Performing Lab: [facility] [address] CREATININE 1.4 H 0.7-1.2 UREA NITROGEN 22 [...] 0 [place] 2020 08:45 /min mm[Hg] [facility] Social History: Smoking Status (Most current) [...] 11:21 AM [place]-V[place] TOBACCO USE CURRENT NRT [facility] DECLINE Tobacco Use History This section includes a history of the smoking, or tobacco- related health factors, that were collected on or before the date of the Encounter. The data comes from the [place] facility where the Encounter took place. Date/Time Smoking Status/Tobacco Use Comment Facil ity Nov 15, 2020 10:00 AM [place] [address] [facility] WAKEUP Nov 15, 2020 10:00 AM [place] USE [address] [facility] Nov 15, 2020 10:00 AM [place]-TOBACCO USE ADVICE [place] [facility] Nov 15, 2020 10:00 AM VA-TOBACCO USE NIGHT COORDINATOR NO [facility] Nov 15, 2020 10:00 AM [place]-TOBACCO USE MED NO [place] [facility] Nov 15, 2020 10:00 AM VA-TOBACCO USER EVERY DAY [facility] Jun 21, 2019 02:29 PM VA-TOBACCO USE [address] [facility] Jun 21, 2019 02:29 PM [place]-TOBACCO USE ADVICE [place] [facility] Jun 21, 2019 02:29 PM VA-TOBACCO USE NIGHT COORDINATOR NO [facility] Jun 21, 2019 02:29 PM VA-TOBACCO USE MED NO [place] [facility] Jun 21, 2019 02:29 PM [place]ACCO [place] [address] [facility] Jun 21, 2019 02:29 PM VA-TOBACCO USER EVERY DAY [facility] Jun 09, 2018 03:48 PM VA-TOBACCO USE [address] [facility] Jun 09, 2018 03:48 PM VA-TOBACCO USE ADVICE [place] [facility] Jun 09, 2018 03:48 PM VA-TOBACCO USE NIGHT COORDINATOR NO [facility] Jun 09, 2018 03:48 PM VA-TOBACCO USE MED NO [place] [facility] Jun 09, 2018 03:48 PM [place]ACCO [place] [address] [facility] Jun 09, 2018 03:48 PM VA-TOBACCO USER EVERY DAY [facility] Jun 20, 2017 07:53 AM CURRENT [facility]BACCO USER [facility] Jun 19, 2016 08:41 AM CURRENT TOBACCO USER [facility] Jun 21, 2015 08:15 AM CURRENT TOBACCO USER [facility] Mar 22, 2014 10:03 AM CURRENT TOBACCO USER [facility] Mar 25, 2013 11:01 AM CURRENT TOBACCO USER [facility] Feb 05, 2012 08:55 AM CURRENT TOBACCO USER [facility] January 01, 2011 09:26 AM CURRENT TOBACCO USER [facility] Mar 07, 2010 10:02 AM CURRENT TOBACCO USER [facility] Feb 21, 2009 08:17 AM CURRENT TOBACCO USER [facility] Nov 06, 2007 10:02 AM CURRENT TOBACCO USER [facility] January 02, 2007 10:33 AM CURRENT TOBACCO USER [facility] Advance Directives: All historical and current Section Date Range: From patient's date of to the date document was created. This section includes ALL of a patient's completed or amended [place] Advance and Rescinded Directives. The entries below indicate that a directive exists for the patient, but an actual copy is not included with this document. The data comes from all [place] facilities. Date Advance Directives Provider Source Mar 06, 2005 ADVANCE DIRECTIVE GANESH RODRIGUEZ [facility] Encounter Notes: All associated encounter notes This section contains the clinical notes associated to the Encounter. Date/Time Encounter Note(s) Provider Source Mar 23, 2021 01:00 AM CRITICAL CARE UNIT NOTE: FLORENCIO RIOS [facility] LOCAL TITLE: [facility] RESPIRATORY THERAPY FLOWSHEET STANDARD TITLE: CRITICAL CARE UNIT NOTE DATE OF NOTE: MAR 23, 2021@01:00 ENTRY DATE: MAR 26, 2021@11:47:04 AUTHOR: KARLA RIOSStormMQMehran EXP COSIGNER: URGENCY: STATUS: COMPLETED This is a place pyle only. Please see blueKiwi to view document. /es/ [employer] SYSTEM ICU DOCUMENT IMPORT Signed: 03/26/2021 11:47 Mar 23, 2021 01:00 AM CRITICAL CARE UNIT NOTE: BLANCAKARLANOLA Kristin [facility] LOCAL TITLE: [facility] INPATIENT FLOWSHEET STANDARD TITLE: CRITICAL CARE UNIT NOTE DATE OF NOTE: MAR 23, 2021@01:00 ENTRY DATE: MAR 26, 2021@11:48:19 AUTHOR: BLANCASuperior Solar Solution-ARK EXP COSIGNER: URGENCY: STATUS: COMPLETED This is a place pyle only. Please see blueKiwi to view document. /es/ [facility] SYSTEM ICU DOCUMENT IMPORT Signed: 03/26/2021 11:48
--- OUTSIDE RECORDS SUMMARY | 2022-04-02 16:04 | XMS_ITS | Encounter Summary ---
:1945 Author Organization Department [facility] Address [address] [place] [address] Care Team Providers Name Role Phone SAKSHI [...] MEDICARE MEDICARE PART Jun 25, PART B [id number] Saumya QUINONES PATIENT (WNR) (M) B 2011 78A 0 AVID MEDICARE MEDICARE PART Sep 25, PART A [id number] Saumya QUINONES PATIENT (WNR) (M) A 2009 78A 0 AVID MEDICARE MEDICARE PART Sep 25, PART A [id number] Saumya MICHELE ATTHOMAS (WNR) (M) A 2009 [id number] [phone] AVID MEDICARE MEDICARE PART Sep 25, PART B [id number] Saumya MICHELE ATIENT (WNR) (M) B 2009 [id number] [phone] AVID Selected Encounter This section includes the information on record at [place] for the [place]counter. Date/Time Encounter Type Encounter Description Reason Provider Source Mar 23, 2021 12:00 AM Inpatient Visit ADMIN PAT ACTIVTIES (MASNONCT) E Encounter Template Text not used by [place] Plan of Treatment: Future Appointments (+ 6 months) and Future Tests (+/- 45 days) The Plan of Treatment section includes future care activities for the patient from all [place] [facility]. This section includes future appointments and future orders which are active, pending orscheduled.Future Appointments This section includes appointments that were scheduled to occur 6 months from the date of the Encounter, up to a maximum of 20 appointments. The data comes from all [place] treatment facilities. Appointment Date/Time Appointment Type Appointment Facili ty Name Mar 26, 2021 09:00 AM AMBULATORY - NONE [facility] Apr 02, 2021 01:13 PM AMBULATORY - MEDICINE [facility] May 08, 2021 02:00 PM AMBULATORY - NONE [facility] Jun 13, 2021 02:00 PM AMBULATORY - NONE [facility] Jun 18, 2021 12:45 PM AMBULATORY - [facility] Jun 18, 2021 01:30 PM AMBULATORY - MEDICINE [facility] Jun 20, 2021 10:00 AM AMBULATORY - [facility]IC[facility] Jul 11, 2021 01:00 PM AMBULATORY - NONE [facility] Jul 26, 2021 09:00 AM AMBULATORY - [facility]IC[facility] Jul 26, 2021 10:30 AM AMBULATORY - [facility] Aug 03, 2021 10:46 AM AMBULATORY - MEDICINE [facility] Aug 08, 2021 07:00 AM AMBULATORY - NONE [facility] Aug 10, 2021 10:30 AM AMBULATORY - [facility] Sep 14, 2021 09:00 AM AMBULATORY - [facility] Sep 21, 2021 09:45 AM AMBULATORY - MEDICINE [facility] Sep 21, 2021 10:00 AM AMBULATORY - MEDICINE [facility] Sep 21, 2021 10:30 AM AMBULATORY - MEDICINE [facility] Sep 21, 2021 11:00 AM AMBULATORY - MEDICINE [facility] Sep 21, 2021 11:30 AM AMBULATORY - [facility]IC[facility] Lab Results: +/- 30 days of the encounter This section includes the Chemistry and Hematology Lab Results on record with [place] for the patient. Radiology Reports and Pathology Reports are provided separately, in subsequent sections.Lab Results This section contains the Chemistry/Hematology Results that were resulted 30 days before or 30 daysafter the date of the Encounter. Date/Time Source Result Type Result - Unit Interpretation Reference Range Comment Mar 23, 2021 09:57 AM [facility] POTASSIUM Specim en Type: PLASMA No comment enter ed. Ordering Provid er: VELANGI,RODO S Report Released Date/Time: Mar 23, 2021 09:33 AM Reporting Lab: [facility] [address] [facility] [address] Performing Lab: [facility] [address] [facility] [address] POTASSIUM 4.6 mmol/L 3.5-5.1 Mar 23, 2021 06:48 [facility] BASIC METABOLIC Specimen Type: PLASMA AM PANEL+MG Comment: Cancel lation Called to: Dora Mae MSA 03/23/2021 @ 0930 by AEK. 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 Ordering Provid er: RODO PINTO Report Released Date/Time: Mar 22, 2021 10:19 AM Reporting Lab: [facility] [address] [facility] [address] Performing Lab: [facility] [address] [facility] [address] CREATININE 1.3 mg/dL H 0.7-1.2 UREA NITROGEN 25 mg/dL 8-26 GLUCOSE 170 mg/dL H 74-100 SODIUM 139 mmol/L 136-145 POTASSIUM canc mmol/L 3.5-5.1 CHLORIDE 109 mmol/L H 98-107 CO2 23 mmol/L 22-29 CALCIUM 9.0 mg/dL 8.4-10.2 MAGNESIUM 2.2 mg/dL 1.6-2.6 ANION GAP 7 mmol/L 5-15 ESTIMATED GFR(eGFR) 54 L >60 Mar 23, 2021 06:48 AM [facility] MAGNESIUM Specim en Type: PLASMA No comment enter ed. Ordering Provid er: RODO PINTO Report Released Date/Time: Mar 22, 2021 10:19 AM Reporting Lab: [facility] [address] [facility] [address] Performing Lab: [facility] [address] [facility] [address] MAGNESIUM 2.2 mg/dL 1.6-2.6 Mar 23, 2021 06:13 [facility] FINGERSTICK GLUCOSE Speci men Type: BLOOD AM Comment: [place]am rock Nurse Notified Ordering Provid er: GRANT,CARD II Report Released Date/Time: Mar 23, 2021 07:07 AM Reporting Lab: [facility] [address] [facility] [address] Performing Lab: [facility] [address] [facility] [address] FINGERSTICK GLUCOSE 168 mg/dL H 70-100 Mar 22, 2021 08:30 [facility] FINGERSTICK GLUCOSE Speci men Type: BLOOD PM Comment: VENOUS SAMPLE Ordering Provid er: DARLYN BURNS II Report Released Date/Time: Mar 23, 2021 08:23 AM Reporting Lab: [facility] [address] [facility] [address] Performing Lab: [facility] [address] [facility] [address] FINGERSTICK GLUCOSE 240 mg/dL H 70-100 Mar 22, 2021 04:28 [facility] FINGERSTICK GLUCOSE Speci men Type: BLOOD PM Comment: [place] Nurse Notified Ordering Provid er: DARLYN BURNS II Report Released Date/Time: Mar 22, 2021 04:42 PM Reporting Lab: [facility] [address] [facility] [address] Performing Lab: [facility] [address] [facility] [address] FINGERSTICK GLUCOSE 197 mg/dL H 70-100 Mar 22, 2021 11:28 [facility] FINGERSTICK GLUCOSE Speci men Type: BLOOD AM Comment: [place] Nurse Notified Ordering Provid er: GRANTCARD II Report Released Date/Time: Mar 22, 2021 12:14 PM Reporting Lab: [facility] [address] [facility] [address] Performing Lab: [facility] [address] [facility] [address] FINGERSTICK GLUCOSE 225 mg/dL H 70-100 Mar 22, 2021 06:13 [facility] FINGERSTICK GLUCOSE Speci men Type: BLOOD AM Comment: [place] Nurse Notified Ordering Provid er: DARLYN BURNS II Report Released Date/Time: Mar 22, 2021 12:13 PM Reporting Lab: [facility] [address] [facility] [address] Performing Lab: [facility] [address] [facility] [address] FINGERSTICK GLUCOSE 155 mg/dL H 70-100 Mar 21, 2021 07:36 [facility] FINGERSTICK GLUCOSE Speci men Type: BLOOD PM Comment: [place] Nurse Notified Ordering Provid er: GRANTCARD II Report Released Date/Time: Mar 21, 2021 08:53 PM Reporting Lab: [facility] [address] [facility] [address] Performing Lab: [facility] [address] [facility] [address] FINGERSTICK GLUCOSE 214 mg/dL H 70-100 Mar 21, 2021 04:00 [facility] FINGERSTICK GLUCOSE Speci men Type: BLOOD PM Comment: [place] Nurse Notified Ordering Provid er: TEAM,CARD II Report Released Date/Time: Mar 21, 2021 04:27 PM Reporting Lab: [facility] [address] [facility] [address] Performing Lab: [facility] [address] [facility] [address] FINGERSTICK GLUCOSE 252 mg/dL H 70-100 Mar 21, 2021 11:43 [facility] FINGERSTICK GLUCOSE Speci men Type: BLOOD AM Comment: [place] Nurse Notified Ordering Provid er: GRANTCARD II Report Released Date/Time: Mar 21, 2021 12:08 PM Reporting Lab: [facility] [address] [facility] [address] Performing Lab: [facility] [address] [facility] [address] FINGERSTICK GLUCOSE 227 mg/dL H 70-100 Mar 21, 2021 06:45 AM [facility] ALBUMIN Specim en Type: PLASMA No comment enter ed. Ordering Provid er: LISBET WASHINGTON V Report Released Date/Time: Mar 20, 2021 10:27 AM Reporting Lab: [facility] [address] [facility] [address] Performing Lab: [facility] [address] [facility] [address] ALBUMIN 3.5 g/dL 3.5-5.2 Mar 21, 2021 06:45 [facility] BASIC METABOLIC Specimen Type: PLASMA AM PANEL+MG No comment enter ed. Ordering Provid er: RODO PINTO Report Released Date/Time: Mar 20, 2021 02:43 PM Reporting Lab: [facility] [address] [facility] [address] Performing Lab: [facility] [address] [facility] [address] CREATININE 1.5 mg/dL H 0.7-1.2 UREA NITROGEN 26 mg/dL 8-26 GLUCOSE 207 mg/dL H 74-100 SODIUM 140 mmol/L 136-145 POTASSIUM 4.4 mmol/L 3.5-5.1 CHLORIDE 109 mmol/L H 98-107 CO2 24 mmol/L 22-29 CALCIUM 9.0 mg/dL 8.4-10.2 MAGNESIUM 2.3 mg/dL 1.6-2.6 ANION GAP 7 mmol/L 5-15 ESTIMATED GFR(eGFR) 46 L >60 Mar 21, 2021 06:38 [facility] FINGERSTICK GLUCOSE Speci men Type: BLOOD AM Comment: [place] Nurse Notified Ordering Provid er: TEAM,CARD II Report Released Date/Time: Mar 21, 2021 07:23 AM Reporting Lab: [facility] [address] [facility] [address] [facility] [address] FINGERSTICK GLUCOSE 159 mg/dL H 70-100 Mar 20, 2021 08:27 [facility] FINGERSTICK GLUCOSE Speci men Type: BLOOD PM Comment: [place] Nurse Notified Ordering Provid er: TEAM,CARD II Report Released Date/Time: Mar 20, 2021 10:52 PM Reporting [facility] [address] Performing [facility] [address] FINGERSTICK GLUCOSE 224 mg/dL H 70-100 Mar 20, 2021 05:06 [facility] FINGERSTICK GLUCOSE Speci men Type: BLOOD PM Comment: [place] Nurse Notified Ordering Provid er: TEAM,CARD II Report Released Date/Time: Mar 20, 2021 05:27 PM Reporting Lab: [facility] [address] [facility] [address] Performing Lab: [facility] [address] [facility] [address] FINGERSTICK GLUCOSE 183 mg/dL H 70-100 Mar 20, 2021 08:16 [facility] BASIC METABOLIC Specimen Type: PLASMA AM PANEL+MG No comment enter ed. Ordering Provid er: TUCKER JULIAN Report Released Date/Time: Mar 15, 2021 02:20 PM Reporting Lab: [facility] [address] [facility] [address] Performing [facility]: [facility] [address] CREATININE 1.6 mg/dL H 0.7-1.2 UREA NITROGEN 31 mg/dL H 8-26 GLUCOSE 216 mg/dL H 74-100 SODIUM 142 mmol/L 136-145 POTASSIUM 4.6 mmol/L 3.5-5.1 CHLORIDE 106 mmol/L 98-107 CO2 25 mmol/L 22-29 CALCIUM 9.3 mg/dL 8.4-10.2 MAGNESIUM 2.2 mg/dL 1.6-2.6 ANION GAP 11 mmol/L 5-15 ESTIMATED GFR(eGFR) 43 L >60 Mar 20, 2021 08:16 [facility] COVID-19 DIAGNOSTIC Speci men Type: NASOPHARYNGEAL AM PANEL (CEPHEID) Comment: Wiley samuel GeneXpert ([id number]) Ordering Provid er: TUCKER JULIAN Report Released Date/Time: Mar 15, 2021 02:20 PM Reporting Lab: [facility] [address] Performing Lab: [facility] [address] COVID-19 (CEPHEID) Not Detected Not Dete cted Mar 05, 2021 09:42 [facility] BASIC METABOLIC Specimen Type: PLASMA AM PANEL+MG No comment enter ed. Ordering Provid er: VICENTE PELAEZ Report Released Date/Time: Feb 19, 2021 01:50 PM Reporting Lab: [facility] [address] Performing Lab: [facility] [address] CREATININE 1.4 mg/dL H 0.7-1.2 UREA NITROGEN [...] dy Source Pressure Rate Mass Index Mar 23 98.2 F 73 118/82 18 /min 92 % 0 [place] 2020 08:45 /min mm[Hg] [facility] Social History: Smoking Status (Most current) and Tobacco Use (All prior to encounter date) This section includes the most current, and the historical, smoking and tobacco-related health factors from the [place] facility where the Encounter took place.Current Smoking Status This section includes the most current smoking, or tobacco-related health factor, from the [place] facility where the Encounter took place. Date/Time Current Smoking Status Comment Facility Mar 20, 2021 11:21 AM [facility] TOBACCO USE CURRENT NRT [facility] DECLINE Tobacco Use History This section includes a history of the smoking, or tobacco- related health factors, that were collected on or before the date of the Encounter. The data comes from the [place] facility where the Encounter took place. 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 [facility] Nov 15, 2020 10:00 AM VA-TOBACCO USE MED NO [place] [facility] Nov 15, 2020 10:00 AM VA-TOBACCO USER EVERY DAY [facility] Jun 21, 2019 02:29 PM VA-TOBACCO USE 30 YEARS OR MORE [facility] Jun 21, 2019 02:29 PM VA-TOBACCO USE ADVICE [place] [facility] Jun 21, 2019 02:29 PM 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 [facility] Jun 21, 2019 02:29 PM VA-TOBACCO USE MED NO [place] [facility] Jun 21, 2019 02:29 PM VA-TOBACCO USE WI 30 MIN OF WAKEUP [facility] Jun 21, 2019 02:29 PM VA-TOBACCO USER EVERY DAY [facility] Jun 09, 2018 03:48 PM VA-TOBACCO USE 30 YEARS OR MORE [facility] Jun 09, 2018 03:48 PM VA-TOBACCO USE ADVICE [place] [facility] Jun 09, 2018 03:48 PM 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 [facility] Jun 09, 2018 03:48 PM VA-TOBACCO USE MED NO [place] [facility] Jun 09, 2018 03:48 PM VA-TOBACCO USE [place] 30 MIN OF WAKEUP [facility] Jun 09, 2018 03:48 PM VA-TOBACCO USER EVERY DAY [facility] Jun 20, 2017 07:53 AM CURRENT TOBACCO USER [place] [facility] Jun 19, 2016 08:41 AM [facility] Jun 21, 2015 08:15 AM CURRENT TOBACCO USER [facility] Mar 22, 2014 10:03 AM CURRENT TOBACCO USER [facility] Mar 25, 2013 11:01 AM CURRENT [facility]AC[facility] Feb 05, 2012 08:55 AM CURRENT [facility]BACCO [facility]ER [facility] January 01, 2011 09:26 AM CURRENT TOBACCO USER [facility] Mar 07, 2010 10:02 AM CURRENT TOBACCO USER [facility] Feb 21, 2009 08:17 AM CURRENT TOBACCO USER [facility] Nov 06, 2007 10:02 AM CURRENT TOBACCO USER [facility] January 02, 2007 10:33 AM CURRENT TOBACCO USER [facility] Advance Directives: All historical and current Section Date Range: From patient's date of to the date document was created. This section includes ALL of a patient's completed or amended [place] Advance and Rescinded Directives. The entries below indicate that a directive exists for the patient, but an actual copy is not included with this document. The data comes from all [place] facilities. Date Advance Directives Provider Source Mar 06, 2005 ADVANCE DIRECTIVE MICHAELGANESH [facility] Encounter Notes: All associated encounter notes This section contains the clinical notes associated to the Encounter. Date/Time Encounter Note(s) Provider Source Mar 23, 2021 12:00 AM PROCEDURE NOTE: DARLENE BUTLERJulien Black [facility] LOCAL TITLE: MODERATE SEDATION POST-SEDATION NO TE STANDARD TITLE: PROCEDURE NOTE DATE OF NOTE: MAR 23, 2021 ENTRY DATE: MAR 27 021@15:50:58 AUTHOR: DARLENE BUTLER EXP COSIGNER: URGENCY: STATUS: COMPLETED [facility] - Scanned Document /billy/ DARLENE BUTLER [facility] Signed: 03/27/2021 15:50
--- OUTSIDE RECORDS SUMMARY | 2022-04-02 16:04 | XMS_ITS | Encounter Summary ---
:1945 Author Organization [facility] Address [address] [place] [address] Care Team Providers Name Role Phone SAKSHI [...] MEDICARE MEDICARE PART Jun 25, PART B [id number] Saumya QUINONES PATIENT (WNR) (M) B 2011 78A 0 AVID MEDICARE MEDICARE PART Sep 25, PART A [id number] Saumya QUINONES PATIENT (WNR) (M) A 2009 78A 0 AVID MEDICARE MEDICARE PART Sep 25, PART A [id number] Saumya MICHELE ATTHOMAS (WNR) (M) A 2009 78A [id number] AVID MEDICARE MEDICARE PART Sep 25, PART B [id number] Saumya MICHELE ATIENT (WNR) (M) B 2009 78A [id number] AVID Selected Encounter This section includes the information on record at [place] for the Encounter. Date/Time Encounter Type Encounter Description Reason Provider Source Mar 23, 2021 02:00 Outpatient Encounter ADMIN PAT ACTIVTIES PM (MERTCT) IHE Encounter Template Text not used by [place] Plan of Treatment: Future Appointments (+ 6 months) and Future Tests (+/- 45 days) The Plan of Treatment section includes future care activities for the patient from all [place] [facility]. This section includes future appointments and future orders which are active, pending orscheduled.Future Appointments This section includes appointments that were scheduled to occur 6 months from the date of the Encounter, up to a maximum of 20 appointments. The data comes from all [place] treatment facilities. Appointment Date/Time Appointment Type Appointment Facili ty Name Mar 26, 2021 09:00 AM AMBULATORY - NONE [facility] Apr 02, 2021 01:13 PM AMBULATORY - MEDICINE [facility] May 08, 2021 02:00 PM AMBULATORY - NONE [facility] Jun 13, 2021 02:00 PM AMBULATORY - NONE [facility] Jun 18, 2021 12:45 PM AMBULATORY - [facility] Jun 18, 2021 01:30 PM AMBULATORY - MEDICINE [facility] Jun 20, 2021 10:00 AM AMBULATORY - MEDICINE [facility] Jul 11, 2021 01:00 PM AMBULATORY - NONE [facility] Jul 26, 2021 09:00 AM AMBULATORY - MEDICINE [facility] Jul 26, 2021 10:30 AM AMBULATORY - [facility] Aug 03, 2021 10:46 AM AMBULATORY - MEDICINE [facility] Aug 08, 2021 07:00 AM AMBULATORY - NONE [facility] Aug 10, 2021 10:30 AM AMBULATORY - [facility] Sep 14, 2021 09:00 AM AMBULATORY - [facility] Sep 21, 2021 09:45 AM AMBULATORY - MEDICINE [facility] Sep 21, 2021 10:00 AM AMBULATORY - MEDICINE [facility] Sep 21, 2021 10:30 AM AMBULATORY - MEDICINE [facility] Sep 21, 2021 11:00 AM AMBULATORY - MEDICINE [facility] Sep 21, 2021 11:30 AM AMBULATORY - MEDICINE [facility] Lab Results: +/- 30 days of the encounter This section includes the Chemistry and Hematology Lab Results on record with [place] for the patient. Radiology Reports and Pathology Reports are provided separately, in subsequent sections.Lab Results This section contains the Chemistry/Hematology Results that were resulted 30 days before or 30 daysafter the date of the Encounter. Date/Time Source Result Type Result - Unit Interpretation Reference Range Comment Mar 23, 2021 09:57 AM [facility] POTASSIUM Specim en Type: PLASMA No comment enter ed. Ordering Provid er: VELANGI,RODO S Report Released Date/Time: Mar 23, 2021 09:33 AM Reporting Lab: [facility] [address] [facility] [address] Performing Lab: [facility] [address] [facility] [address] POTASSIUM 4.6 mmol/L 3.5-5.1 Mar 23, 2021 06:48 [facility] BASIC METABOLIC Specimen Type: PLASMA AM PANEL+MG Comment: Cancel lation Called to: Dora Mae MSA 03/23/2021 @ 0930 by AEK. 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 Ordering Provid er: RODO PINTO Report Released Date/Time: Mar 22, 2021 10:19 AM Reporting Lab: [facility] [address] [facility] [address] Performing Lab: [facility] [address] [facility] [address] CREATININE 1.3 mg/dL H 0.7-1.2 UREA NITROGEN 25 mg/dL 8-26 GLUCOSE 170 mg/dL H 74-100 SODIUM 139 mmol/L 136-145 POTASSIUM canc mmol/L 3.5-5.1 CHLORIDE 109 mmol/L H 98-107 CO2 23 mmol/L 22-29 CALCIUM 9.0 mg/dL 8.4-10.2 MAGNESIUM 2.2 mg/dL 1.6-2.6 ANION GAP 7 mmol/L 5-15 ESTIMATED GFR(eGFR) 54 L >60 Mar 23, 2021 06:48 AM [facility] MAGNESIUM Specim en Type: PLASMA No comment enter ed. Ordering Provid er: RODO PINTO Report Released Date/Time: Mar 22, 2021 10:19 AM Reporting Lab: [facility] [address] [facility] [address] Performing Lab: [facility] [address] [facility] [address] MAGNESIUM 2.2 mg/dL 1.6-2.6 Mar 23, 2021 06:13 [facility] FINGERSTICK GLUCOSE Speci men Type: BLOOD AM Comment: [place] Nurse Notified Ordering Provid er: GRANT,CARD II Report Released Date/Time: Mar 23, 2021 07:07 AM Reporting Lab: [facility] [address] [facility] [address] Performing Lab: [facility] [address] [facility] [address] FINGERSTICK GLUCOSE 168 mg/dL H 70-100 Mar 22, 2021 08:30 [facility] FINGERSTICK GLUCOSE Speci men Type: BLOOD PM Comment: VENOUS SAMPLE Ordering Provid er: DARLYN BURNS II Report Released Date/Time: Mar 23, 2021 08:23 AM Reporting Lab: [facility] [address] [facility] [address] Performing Lab: [facility] [address] [facility] [address] FINGERSTICK GLUCOSE 240 mg/dL H 70-100 Mar 22, 2021 04:28 [facility] FINGERSTICK GLUCOSE Speci men Type: BLOOD PM Comment: [place] Nurse Notified Ordering Provid er: DARLYN BURNS II Report Released Date/Time: Mar 22, 2021 04:42 PM Reporting Lab: [facility] [address] [facility] [address] Performing Lab: [facility] [address] [facility] [address] FINGERSTICK GLUCOSE 197 mg/dL H 70-100 Mar 22, 2021 11:28 [facility] FINGERSTICK GLUCOSE Speci men Type: BLOOD AM Comment: [place] Nurse Notified Ordering Provid er: GRANTCARD II Report Released Date/Time: Mar 22, 2021 12:14 PM Reporting Lab: [facility] [address] [facility] [address] Performing Lab: [facility] [address] [facility] [address] FINGERSTICK GLUCOSE 225 mg/dL H 70-100 Mar 22, 2021 06:13 [facility] FINGERSTICK GLUCOSE Speci men Type: BLOOD AM Comment: [place] Nurse Notified Ordering Provid er: DARLYN BURNS II Report Released Date/Time: Mar 22, 2021 12:13 PM Reporting Lab: [facility] [address] [facility] [address] Performing Lab: [facility] [address] [facility] [address] FINGERSTICK GLUCOSE 155 mg/dL H 70-100 Mar 21, 2021 07:36 [facility] FINGERSTICK GLUCOSE Speci men Type: BLOOD PM Comment: [place] Nurse Notified Ordering Provid er: GRANTCARD II Report Released Date/Time: Mar 21, 2021 08:53 PM Reporting Lab: [facility] [address] [facility] [address] Performing Lab: [facility] [address] [facility] [address] FINGERSTICK GLUCOSE 214 mg/dL H 70-100 Mar 21, 2021 04:00 [facility] FINGERSTICK GLUCOSE Speci men Type: BLOOD PM Comment: [place] Nurse Notified Ordering Provid er: TEAM,CARD II Report Released Date/Time: Mar 21, 2021 04:27 PM Reporting Lab: [facility] [address] [facility] [address] Performing Lab: [facility] [address] [facility] [address] FINGERSTICK GLUCOSE 252 mg/dL H 70-100 Mar 21, 2021 11:43 [facility] FINGERSTICK GLUCOSE Speci men Type: BLOOD AM Comment: [place] Nurse Notified Ordering Provid er: GRANTCARD II Report Released Date/Time: Mar 21, 2021 12:08 PM Reporting Lab: [facility] [address] [facility] [address] Performing Lab: [facility] [address] [facility] [address] FINGERSTICK GLUCOSE 227 mg/dL H 70-100 Mar 21, 2021 06:45 AM [facility] ALBUMIN Specim en Type: PLASMA No comment enter ed. Ordering Provid er: LISBET W[place] V Report Released Date/Time: Mar 20, 2021 10:27 AM Reporting Lab: [facility] [address] [facility] [address] Performing Lab: [facility] [address] [facility] [address] ALBUMIN 3.5 g/dL 3.5-5.2 Mar 21, 2021 06:45 [facility] BASIC METABOLIC Specimen Type: PLASMA AM PANEL+MG No comment enter ed. Ordering Provid er: RODO PINTO Report Released Date/Time: Mar 20, 2021 02:43 PM Reporting Lab: [facility] [address] [facility] [address] Performing Lab: [facility] [address] [facility] [address] CREATININE 1.5 mg/dL H 0.7-1.2 UREA NITROGEN 26 mg/dL 8-26 GLUCOSE 207 mg/dL H 74-100 SODIUM 140 mmol/L 136-145 POTASSIUM 4.4 mmol/L 3.5-5.1 CHLORIDE 109 mmol/L H 98-107 CO2 24 mmol/L 22-29 CALCIUM 9.0 mg/dL 8.4-10.2 MAGNESIUM 2.3 mg/dL 1.6-2.6 ANION GAP 7 mmol/L 5-15 ESTIMATED GFR(eGFR) 46 L >60 Mar 21, 2021 06:38 [facility] FINGERSTICK GLUCOSE Speci men Type: BLOOD AM Comment: [place] Nurse Notified Ordering Provid er: TEAM,CARD II Report Released Date/Time: Mar 21, 2021 07:23 AM Reporting Lab: [facility] [address] [facility] [address] Performing Lab: [facility] [address] FINGERSTICK GLUCOSE 159 mg/dL H 70-100 Mar 20, 2021 08:27 [facility] FINGERSTICK GLUCOSE Speci men Type: BLOOD PM Comment: [place] Nurse Notified Ordering Provid er: TEAM,CARD II Report Released Date/Time: Mar 20, 2021 10:52 PM Reporting Lab: [facility] [address] Performing Lab: [facility] [address] FINGERSTICK GLUCOSE 224 mg/dL H 70-100 Mar 20, 2021 05:06 [facility] FINGERSTICK GLUCOSE Speci men Type: BLOOD PM Comment: [place] Nurse Notified Ordering Provid er: TEAM,CARD II Report Released Date/Time: Mar 20, 2021 05:27 PM Reporting Lab: [facility] [address] [facility] [address] Performing Lab: [facility] [address] [facility] [address] [place] GLUCOSE 183 mg/dL H 70-100 Mar 20, 2021 08:16 [facility] BASIC METABOLIC Specimen Type: PLASMA AM PANEL+MG No comment enter ed. Ordering Provid er: TUCKER JULIAN Report Released Date/Time: Mar 15, 2021 02:20 PM Reporting Lab: [facility] [address] Performing Lab: [facility] [address] CREATININE 1.6 mg/dL H 0.7-1.2 UREA NITROGEN 31 mg/dL H 8-26 GLUCOSE 216 mg/dL H 74-100 SODIUM 142 mmol/L 136-145 POTASSIUM 4.6 mmol/L 3.5-5.1 CHLORIDE 106 mmol/L 98-107 CO2 25 mmol/L 22-29 CALCIUM 9.3 mg/dL 8.4-10.2 MAGNESIUM 2.2 mg/dL 1.6-2.6 ANION GAP 11 mmol/L 5-15 ESTIMATED GFR(eGFR) 43 L >60 Mar 20, 2021 08:16 [facility] COVID-19 DIAGNOSTIC Speci men Type: NASOPHARYNGEAL AM PANEL (CEPHEID) Comment: Wiley samuel GeneXpert (618) Ordering Provid er: TUCKER JULIAN Report Released Date/Time: Mar 15, 2021 02:20 PM Reporting Lab: [facility] [address] Performing Lab: [facility] [address] COVID-19 (CEPHEID) Not Detected Not Dete cted Mar 05, 2021 09:42 [facility] BASIC METABOLIC Specimen Type: PLASMA AM PANEL+MG No comment enter ed. Ordering Provid er: VICENTE PELAEZ Report Released Date/Time: Feb 19, 2021 01:50 PM Reporting Lab: [facility] [address] Performing Lab: [facility] [address] CREATININE 1.4 mg/dL H 0.7-1.2 UREA NITROGEN [...] % 0 [place] 2020 08:45 /min mm[Hg] [facility] Social History: Smoking Status (Most current) and Tobacco Use (All prior to encounter date) This section includes the most current, and the historical, smoking and tobacco-related health factors from the [place] facility where the Encounter took place.Current Smoking Status This section includes the most current smoking, or tobacco-related health factor, from the [place] facility where the Encounter took place. Date/Time Current Smoking Status Comment Facility Mar 20, 2021 11:21 AM [facility] TOBACCO USE CURRENT NRT [facility] DECLINE Tobacco Use History This section includes a history of the smoking, or tobacco- related health factors, that were collected on or before the date of the Encounter. The data comes from the [place] facility where the Encounter took place. 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 [facility] Nov 15, 2020 10:00 AM VA-TOBACCO USE MED NO [place] [facility] Nov 15, 2020 10:00 AM VA-TOBACCO USER EVERY DAY [facility] Jun 21, 2019 02:29 PM VA-TOBACCO USE 30 YEARS OR MORE [facility] Jun 21, 2019 02:29 PM VA-TOBACCO USE ADVICE [place] [facility] Jun 21, 2019 02:29 PM 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 [facility] Jun 21, 2019 02:29 PM VA-TOBACCO USE MED NO [place] [facility] Jun 21, 2019 02:29 PM VA-TOBACCO USE WI 30 MIN OF WAKEUP [facility] Jun 21, 2019 02:29 PM VA-TOBACCO USER EVERY DAY [facility] Jun 09, 2018 03:48 PM VA-TOBACCO USE 30 YEARS OR MORE [facility] Jun 09, 2018 03:48 PM VA-TOBACCO USE ADVICE [place] [facility] Jun 09, 2018 03:48 PM 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 [facility] Jun 09, 2018 03:48 PM VA-TOBACCO USE MED NO [place] [facility] Jun 09, 2018 03:48 PM VA-TOBACCO USE WI 30 MIN OF WAKEUP [facility] Jun 09, 2018 03:48 PM VA-TOBACCO USER EVERY DAY [facility] Jun 20, 2017 07:53 AM CURRENT TOBACCO USER [place] [facility] Jun 19, 2016 08:41 AM CURRENT TOBACCO USER [facility] Jun 21, 2015 08:15 AM CURRENT TOBACCO USER [facility] Mar 22, 2014 10:03 AM CURRENT TOBACCO USER [facility] Mar 25, 2013 11:01 AM CURRENT TOBACCO USER [facility] Feb 05, 2012 08:55 AM CURRENT TOBACCO USER [facility] January 01, 2011 09:26 AM CURRENT TOBACCO USER [facility] Mar 07, 2010 10:02 AM CURRENT TOBACCO USER [facility] Feb 21, 2009 08:17 AM CURRENT TOBACCO USER [facility] Nov 06, 2007 10:02 AM CURRENT TOBACCO USER [facility] January 02, 2007 10:33 AM CURRENT TOBACCO USER [facility] Advance Directives: All historical and current Section Date Range: From patient's date of to the date document was created. This section includes ALL of a patient's completed or amended [place] Advance and Rescinded Directives. The entries below indicate that a directive exists for the patient, but an actual copy is not included with this document. The data comes from all [place] facilities. Date Advance Directives Provider Source Mar 06, 2005 ADVANCE DIRECTIVE MICHAELGANESH [facility] Encounter Notes: All associated encounter notes This section contains the clinical notes associated to the Encounter. Date/Time Encounter Note(s) Provider Source Mar 23, 2021 02:00 PM SCANNED REPORT: GILDA GOVEAWILLIESharmila [facility] LOCAL TITLE: TELEMETRY RHYTHM STRIPS STANDARD TITLE: SCANNED REPORT DATE OF NOTE: MAR 23, 2021@14:00 ENTRY DATE: MAR 27, 2021@10:27:42 AUTHOR: GILDA GOVEA EXP COSIGNER: URGENCY: STATUS: COMPLETED [facility] - Scanned Document See [facility]. /billy/ G[facility]DA GOVEA [facility] DIRECT[facility] Signed: 03/27/2021 10:27
--- OUTSIDE RECORDS SUMMARY | 2022-04-02 16:04 | XMS_ITS | Encounter Summary ---
:1945 Author Organization Department [facility] Address [address] [place] [id number] Care Team Providers Name Role Phone CROUCH [...] MEDICARE MEDICARE PART Jun 25, PART B [id number] Saumya QUINONES PATIENT (WNR) (M) B 2011 78A 0 AVID MEDICARE MEDICARE PART Sep 25, PART A [id number] Saumya QUINONES PATIENT (WNR) (M) A 2009 78A 0 AVID MEDICARE MEDICARE PART Sep 25, PART A [id number] Saumya MICHELE (WNR) (M) A 2009 [id number] AVID MEDICARE MEDICARE PART Sep 25, PART B [id number] Saumya MICHELE (WNR) (M) B 2009 [id number] AVID Selected Encounter This section includes the information on [place] at [place] for the Encounter. Date/Time Encounter Type Encounter Reason Provider Source Description Mar 23, 2021 HOSPITAL CARDIOLOGY ICD-10-CM I48.19 TYSHAWN 05:47 PM DISCHARGE DAY Other persistent R,Y S atrial fibrillation with Provider Comments: Persistent atrial fibrillation (SCT [id number]) IHE Encounter Template Text not used by [place] Assessments - Encounter Diagnoses This section includes the primary and secondary diagnoses documented for the Encounter. 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,Y S HCS pulmonary disease, unspecified Mar 23, 2021 SECONDARY Chronic systolic [facility] [place] 05:49 PM (congestive) heart R,Y S HCS failure Mar 23, 2021 SECONDARY Essential [facility] 05:49 PM (primary) R,Y S HCS hypertension Mar 23, 2021 SECONDARY 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 This section includes future appointments [...] 26, 2021 09:00 AM AMBULATORY - NONE [facility] Apr 02, 2021 01:13 PM AMBULATORY - MEDICINE [facility] May 08, 2021 02:00 PM AMBULATORY - NONE [facility] Jun 13, 2021 02:00 PM AMBULATORY - NONE [facility] Jun 18, 2021 12:45 PM AMBULATORY - NONE [facility] Jun 18, 2021 01:30 PM AMBULATORY - MEDICINE [facility] Jun 20, 2021 10:00 AM AMBULATORY - MEDICINE [facility] Jul 11, 2021 01:00 PM AMBULATORY - NONE [facility] Jul 26, 2021 09:00 AM AMBULATORY - MEDICINE [facility] Jul 26, 2021 10:30 AM AMBULATORY - NONE [facility] Aug 03, 2021 10:46 AM AMBULATORY - MEDICINE [facility] Aug 08, 2021 07:00 AM AMBULATORY - NONE [facility] Aug 10, 2021 10:30 AM AMBULATORY - NONE [facility] Sep 14, 2021 09:00 AM AMBULATORY - NONE [facility] Sep 21, 2021 09:45 AM AMBULATORY - MEDICINE [facility] Sep 21, 2021 10:00 AM AMBULATORY - MEDICINE [facility] Sep 21, 2021 10:30 AM AMBULATORY - MEDICINE [facility] Sep 21, 2021 11:00 AM AMBULATORY - MEDICINE [facility] Sep 21, 2021 11:30 AM AMBULATORY - MEDICINE [facility] Lab Results: +/- 30 days of [...] Range Comment Mar 23, 2021 09:57 AM [facility] POTASSIUM Specim en Type: PLASMA No comment enter ed. Ordering Provid er: RODO PINTO Report Released Date/Time: Mar 23, 2021 09:33 AM Reporting Lab: [facility] [address] [facility] [address] Performing Lab: [facility] [address] [facility] [address] POTASSIUM 4.6 mmol/L 3.5-5.1 Mar 23, 2021 06:48 [facility] BASIC METABOLIC Specimen Type: PLASMA AM PANEL+MG Comment: Cancel lation Called to: Dora Mae MSA 03/23/2021 @ 0930 by AEK. 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 Ordering Provid er: RODO PINTO Report Released Date/Time: Mar 22, 2021 10:19 AM Reporting Lab: [facility] [address] [facility] [address] Performing Lab: [facility] [address] [facility] [address] CREATININE 1.3 mg/dL H 0.7-1.2 UREA NITROGEN 25 mg/dL 8-26 GLUCOSE 170 mg/dL H 74-100 SODIUM 139 mmol/L 136-145 POTASSIUM canc mmol/L 3.5-5.1 CHLORIDE 109 mmol/L H 98-107 CO2 23 mmol/L 22-29 CALCIUM 9.0 mg/dL 8.4-10.2 MAGNESIUM 2.2 mg/dL 1.6-2.6 ANION GAP 7 mmol/L 5-15 ESTIMATED GFR(eGFR) 54 L >60 Mar 23, 2021 06:48 AM [facility] MAGNESIUM Specim en Type: PLASMA No comment enter ed. Ordering Provid er: RODO PINTO Report Released Date/Time: Mar 22, 2021 10:19 AM Reporting Lab: [facility] [address] [facility] [address] Performing Lab: [facility] [address] [facility] [address] MAGNESIUM 2.2 mg/dL 1.6-2.6 Mar 23, 2021 06:13 [facility] FINGERSTICK GLUCOSE Speci men Type: BLOOD AM Comment: Abram rock Nurse Notified Ordering Provid er: GRANTCARD II Report Released Date/Time: Mar 23, 2021 07:07 AM Reporting Lab: [facility] [address] [facility] [address] Performing Lab: [facility] [address] [facility] [address] FINGERSTICK GLUCOSE 168 mg/dL H 70-100 Mar 22, 2021 08:30 [facility] GLUCOSE Speci men Type: BLOOD PM Comment: VENOUS SAMPLE Ordering Provid er: GRANTCARD II Report Released Date/Time: Mar 23, 2021 08:23 AM Reporting Lab: [facility] [address] [facility] [address] Performing Lab: [facility] [address] [facility] [address] FINGERSTICK GLUCOSE 240 mg/dL H 70-100 Mar 22, 2021 04:28 [facility] [place] GLUCOSE Speci men Type: BLOOD PM Comment: Abram Welch Notified Ordering Provid er: GRANTCARD II Report Released Date/Time: Mar 22, 2021 04:42 PM Reporting Lab: [facility] [address] [facility] [address] Performing Lab: [facility] [address] [facility] [address] FINGER[place]ICK GLUCOSE 197 mg/dL H 70-100 Mar 22, 2021 11:28 [facility] F[place] GLUCOSE Speci men Type: BLOOD AM Comment: [place] Nurse Notified Ordering Provid er: TEAM,CARD II Report Released Date/Time: Mar 22, 2021 12:14 PM Reporting Lab: [facility] [address] [facility] [address] Performing Lab: [facility] [address] [facility] [address] FINGERSTICK GLUCOSE 225 mg/dL H 70-100 Mar 22, 2021 06:13 [facility] FING[place] GLUCOSE Speci men Type: BLOOD AM Comment: [place] Nurse Notified Ordering Provid er: TEAM,CARD II Report Released Date/Time: Mar 22, 2021 12:13 PM Reporting Lab: [facility] [address] [facility] [address] Performing Lab: [facility] [address] [facility] [address] FINGER[place]ICK GLUCOSE 155 mg/dL H 70-100 Mar 21, 2021 07:36 [facility] FINGER[place]ICK GLUCOSE Speci men Type: BLOOD PM Comment: [place] Nurse Notified Ordering Provid er: TEAM,CARD II Report Released Date/Time: Mar 21, 2021 08:53 PM Reporting Lab: [facility] [address] [facility] [address] Performing Lab: [facility] [address] [facility] [address] FINGERSTICK GLUCOSE 214 mg/dL H 70-100 Mar 21, 2021 04:00 [facility] FINGER[place]ICK GLUCOSE Speci men Type: BLOOD PM Comment: [place] Nurse Notified Ordering Provid er: TEAM,CARD II Report Released Date/Time: Mar 21, 2021 04:27 PM Reporting Lab: [facility] [address] [facility] [address] Performing Lab: [facility] [address] [facility] [address] FINGERSTICK GLUCOSE 252 mg/dL H 70-100 Mar 21, 2021 11:43 [facility] FINGER[place]ICK GLUCOSE Speci men Type: BLOOD AM Comment: [place] Nurse Notified Ordering Provid er: TEAM,CARD II Report Released Date/Time: Mar 21, 2021 12:08 PM Reporting Lab: [facility] [address] [facility] [address] Performing Lab: [facility] [address] [facility] [address] FINGERSTICK GLUCOSE 227 mg/dL H 70-100 Mar 21, 2021 06:45 AM [facility] ALBUMIN Specim en Type: PLASMA No comment enter ed. Ordering Provid er: LISBET W[place] V Report Released Date/Time: Mar 20, 2021 10:27 AM Reporting Lab: [facility] [address] [facility] [address] Performing Lab: [facility] [address] [facility] [address] ALBUMIN 3.5 g/dL 3.5-5.2 Mar 21, 2021 06:45 [facility] BASIC METABOLIC Specimen Type: PLASMA AM PANEL+MG No comment enter ed. Ordering Provid er: RODO PINTO Report Released Date/Time: Mar 20, 2021 02:43 PM Reporting Lab: [facility] [address] [facility] [address] Performing Lab: [facility] [address] [facility] [address] CREATININE 1.5 mg/dL H 0.7-1.2 UREA NITROGEN 26 mg/dL 8-26 GLUCOSE 207 mg/dL H 74-100 SODIUM 140 mmol/L 136-145 POTASSIUM 4.4 mmol/L 3.5-5.1 CHLORIDE 109 mmol/L H 98-107 CO2 24 mmol/L 22-29 CALCIUM 9.0 mg/dL 8.4-10.2 MAGNESIUM 2.3 mg/dL 1.6-2.6 ANION GAP 7 mmol/L 5-15 ESTIMATED GFR(eGFR) 46 L >60 Mar 21, 2021 06:38 [facility] [place] GLUCOSE Speci men Type: BLOOD AM Comment: [place] Nurse Notified Ordering Provid er: TEAM,CARD II Report Released Date/Time: Mar 21, 2021 07:23 AM Reporting Lab: [facility] [address] [facility] [address] Performing Lab: [facility] [address] [facility] [address] FINGER[place]ICK GLUCOSE 159 mg/dL H 70-100 Mar 20, 2021 08:27 [facility] F[place] GLUCOSE Speci men Type: BLOOD PM Comment: [place] Nurse Notified Ordering Provid er: TEAM,CARD II Report Released Date/Time: Mar 20, 2021 10:52 PM Reporting Lab: [facility] [address] [facility] [address] Performing Lab: [facility] [address] [facility] [address] FINGER[place]ICK GLUCOSE 224 mg/dL H 70-100 Mar 20, 2021 05:06 [facility] [place] GLUCOSE Speci men Type: BLOOD PM Comment: [place] Nurse Notified Ordering Provid er: DARLYN BURNS II Report Released Date/Time: Mar 20, 2021 05:27 PM Reporting Lab: [facility] [address] Performing Lab: [facility] [address] FINGER[place] GLUCOSE 183 mg/dL H 70-100 Mar 20, 2021 08:16 [facility] BASIC METABOLIC Specimen Type: PLASMA AM PANEL+MG No comment enter ed. Ordering Provid er: TUCKER JULIAN Report Released Date/Time: Mar 15, 2021 02:20 PM Reporting Lab: [facility] [address] Performing Lab: [facility] [address] CREATININE 1.6 mg/dL H 0.7-1.2 UREA NITROGEN 31 mg/dL H 8-26 GLUCOSE 216 mg/dL H 74-100 SODIUM 142 mmol/L 136-145 POTASSIUM 4.6 mmol/L 3.5-5.1 CHLORIDE 106 mmol/L 98-107 CO2 25 mmol/L 22-29 CALCIUM 9.3 mg/dL 8.4-10.2 MAGNESIUM 2.2 mg/dL 1.6-2.6 ANION GAP 11 mmol/L 5-15 ESTIMATED GFR(eGFR) 43 L >60 Mar 20, 2021 08:16 [facility] COVID-19 DIAGNOSTIC Speci men Type: NASOPHARYNGEAL AM PANEL (CEPHEID) Comment: Wiley samuel GeneXpert (618) Ordering Provid er: TUCKER JULIAN Report Released Date/Time: Mar 15, 2021 02:20 PM Reporting Lab: [facility] [address] Performing Lab: [facility] [address] COVID-19 (CEPHEID) Not Detected Not Dete cted Mar 05, 2021 09:42 [facility] BASIC METABOLIC Specimen Type: PLASMA AM PANEL+MG No comment enter ed. Ordering Provid er: VICENTE PELAEZ Report Released Date/Time: Feb 19, 2021 01:50 PM Reporting Lab: [facility] [address] [facility] [address] Performing Lab: [facility] [address] [facility] [address] CREATININE 1.4 mg/dL H 0.7-1.2 UREA NITROGEN [...] 0 [place] 2020 08:45 /min mm[Hg] IS [facility] Social History: Smoking Status (Most [...] Comment Facility Mar 20, 2021 11:21 AM [place] TOBACCO USE CURRENT NRT [facility] DECLINE Tobacco Use History This section includes a history of the smoking, or tobacco- related health factors, that were collected on or before the date of the Encounter. The data comes from the [place] facility where the Encounter took place. 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 [facility] Nov 15, 2020 10:00 AM VA-TOBACCO USE MED NO [place] [facility] Nov 15, 2020 10:00 AM VA-TOBACCO USER EVERY DAY [facility] Jun 21, 2019 02:29 PM VA-TOBACCO USE 30 YEARS OR MORE [facility] Jun 21, 2019 02:29 PM VA-TOBACCO USE ADVICE [place] [facility] Jun 21, 2019 02:29 PM 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 [facility] Jun 21, 2019 02:29 PM VA-TOBACCO USE MED NO [place] [facility] Jun 21, 2019 02:29 PM VA-TOBACCO USE [place] 30 MIN OF WAKEUP [facility] Jun 21, 2019 02:29 PM VA-TOBACCO USER EVERY DAY [facility] Jun 09, 2018 03:48 PM VA-TOBACCO USE 30 YEARS OR MORE [facility] Jun 09, 2018 03:48 PM [facility] Jun 09, 2018 03:48 PM 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 [facility] Jun 09, 2018 03:48 PM VA-TOBACCO USE MED NO [place] [facility] Jun 09, 2018 03:48 PM VA-TOBACCO USE [place] 30 MIN OF WAKEUP [facility] Jun 09, 2018 03:48 PM VA-TOBACCO USER EVERY DAY [facility] Jun 20, 2017 07:53 AM CURRENT TOBACCO USER [facility] Jun 19, 2016 08:41 AM CURRENT TOBACCO USER [facility] Jun 21, 2015 08:15 AM CURRENT TOBACCO USER [facility] Mar 22, 2014 10:03 AM CURRENT TOBACCO USER [facility] Mar 25, 2013 11:01 AM CURRENT TOBACCO USER [facility] Feb 05, 2012 08:55 AM CURRENT TOBACCO USER [facility] January 01, 2011 09:26 AM CURRENT TOBACCO USER [facility] Mar 07, 2010 10:02 AM CURRENT TOBACCO USER [facility] Feb 21, 2009 08:17 AM CURRENT TOBACCO USER [facility] Nov 06, 2007 10:02 AM CURRENT TOBACCO USER [facility] January 02, 2007 10:33 AM CURRENT TOBACCO USER [facility] Advance Directives: All historical and current [...] Mar 06, 2005 ADVANCE DIRECTIVE GANESH RODRIGUEZ [facility]
--- OUTSIDE RECORDS SUMMARY | 2022-04-02 16:04 | XMS_ITS ---
DAILY HOSPITALIZATION DATA [facility] Encounter Summary Created on:March 23, 2021 Patient:PAUL MICHELE Sex:Male :1945 Author Organization Department [facility] Address [address] [place] [address] Support Name Relationship Address Phone NIDIA MICHELE Unavailable [address] [place] [phone] NIDIA MICHELE Unavailable [address] [place] [phone] Insurance Providers: All historical and current Section [...] MEDICARE MEDICARE PART Jun 25, PART B [id number] Saumya QUINONES PATIENT (WNR) (M) B 2011 78A 0 AVID MEDICARE MEDICARE PART Sep 25, PART A [id number] Saumya QUINONES PATIENT (WNR) (M) A 2009 78A 0 AVID MEDICARE MEDICARE PART Sep 25, PART A [id number] Saumya MICHELE (WNR) (M) A 2009 [id number] AVID MEDICARE MEDICARE PART Sep 25, PART B [id number] Saumya MICHELE (WNR) (M) B 2009 [id number] AVID Selected Encounter This section includes the information on record at [place] for the Encounter. Date/Time Encounter Type Encounter Description Reason Provider Source Mar 23, 2021 Inpatient Visit DAILY HOSPITALIZATION LEATHA DORAN 12:10 PM DATA E J IHE Encounter Template Text not used by [facility] Plan of Treatment: Future Appointments (+ 6 months) and Future Tests (+/- 45 days) The Plan of Treatment section includes future care activities for the patient [facility] [place] [facility] This section includes future appointments and future orders which are active, pending orscheduled.Future Appointments This section includes appointments that were scheduled to occur 6 months from the date of the Encounter, up to a maximum of 20 appointments. The data comes from all [place] treatment facilities. Appointment Date/Time Appointment Type Appointment Facili ty Name Mar 26, 2021 09:00 AM AMBULATORY - NONE [facility] Apr 02, 2021 01:13 PM AMBULATORY - MEDICINE [facility] May 08, 2021 02:00 PM AMBULATORY - NONE [facility] Jun 13, 2021 02:00 PM AMBULATORY - NONE [facility] Jun 18, 2021 12:45 PM AMBULATORY - NONE [facility] Jun 18, 2021 01:30 PM AMBULATORY - MEDICINE [facility] Jun 20, 2021 10:00 AM AMBULATORY - MEDICINE [facility] Jul 11, 2021 01:00 PM AMBULATORY - NONE [facility] Jul 26, 2021 09:00 AM AMBULATORY - MEDICINE [facility] Jul 26, 2021 10:30 AM AMBULATORY - NONE [facility] Aug 03, 2021 10:46 AM AMBULATORY - MEDICINE [facility] Aug 08, 2021 07:00 AM AM[facility]ULATORY - [facility] Aug 10, 2021 10:30 AM AMBULATORY - NONE [facility] Sep 14, 2021 09:00 AM AMBULATORY - NONE [facility] Sep 21, 2021 09:45 AM AMBULATORY - MEDICINE [facility] Sep 21, 2021 10:00 AM AMBULATORY - MEDICINE [facility] Sep 21, 2021 10:30 AM AMBULATORY - MEDICINE [facility] Sep 21, 2021 11:00 AM AMBULATORY - MEDICINE [facility] Sep 21, 2021 11:30 AM AMBULATORY - MEDICINE [facility] Lab Results: +/- 30 days of the encounter This section includes the Chemistry and Hematology Lab Results on record with [place] for the patient. Radiology Reports and Pathology Reports are provided separately, in subsequent sections.Lab Results This section contains the Chemistry/Hematology Results that were resulted 30 days before or 30 daysafter the date of the Encounter. Date/Time Source Result Type Result - Unit Interpretation Reference Range Comment Mar 23, 2021 09:57 AM [facility] POTASSIUM Specim en Type: PLASMA No comment enter ed. Ordering Provid er: RODO PINTO Report Released Date/Time: Mar 23, 2021 09:33 AM Reporting Lab: [facility] [address] [facility] [address] Performing Lab: [facility] [address] [facility] [address] POTASSIUM 4.6 3.5-5.1 Mar 23, 2021 06:48 AM [facility] MAGNESIUM Specim en Type: PLASMA No comment enter ed. Ordering Provid er: RODO PINTO Report Released Date/Time: Mar 22, 2021 10:19 AM Reporting Lab: [facility] [address] [facility] [address] Performing Lab: [facility] [address] [facility] [address] MAGNESIUM 2.2 1.6-2.6 Mar 23, 2021 06:48 [facility] BASIC METABOLIC Specimen Type: PLASMA AM PANEL+MG Comment: Cancel lation Called to: Dora Mae MSA 03/23/2021 @ [id number] by AEK. 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 Ordering Provid er: RODO PINTO Report Released Date/Time: Mar 22, 2021 10:19 AM Reporting Lab: [facility] [address] [facility] [address] Performing Lab: [facility] [address] [facility] [address] CREATININE 1.3 H 0.7-1.2 UREA NITROGEN 25 8-26 GLUCOSE 170 H 74-100 SODIUM 139 136-145 POTASSIUM canc 3.5-5.1 CHLORIDE 109 H 98-107 CO2 23 22-29 CALCIUM 9.0 8.4-10.2 MAGNESIUM 2.2 1.6-2.6 ANION GAP 7 5-15 ESTIMATED GFR(eGFR) 54 L >60 Mar 23, 2021 06:13 [facility] [place] GLUCOSE Speci men Type: BLOOD AM Comment: [place] Nurse Notified Ordering Provid er: GRANTCARD II Report Released Date/Time: Mar 23, 2021 07:07 AM Reporting Lab: [facility] [address] [facility] [address] Performing Lab: [facility] [address] [place] GLUCOSE 168 H 70-100 Mar 22, 2021 08:30 [facility] [place] GLUCOSE Speci men Type: BLOOD PM Comment: VENOUS SAMPLE Ordering Provid er: TEAM,CARD II Report Released Date/Time: Mar 23, 2021 08:23 AM Reporting Lab: [facility] [address] [facility] [address] Performing Lab: [facility] [address] [facility] [address] [place] GLUCOSE 240 H 70-100 Mar 22, 2021 04:28 [facility] [place] GLUCOSE Speci men Type: BLOOD PM Comment: [place]am [place] Notified Ordering Provid er: TEAM,CARD II Report Released Date/Time: Mar 22, 2021 04:42 PM Reporting Lab: [facility] [address] [facility] [address] Performing Lab: [facility] [address] [facility] [address] [place] GLUCOSE 197 H 70-100 Mar 22, 2021 11:28 [facility] [place] GLUCOSE Speci men Type: BLOOD AM Comment: [place]am [place] Notified Ordering Provid er: TEAM,CARD II Report Released Date/Time: Mar 22, 2021 12:14 PM Reporting Lab: [facility] [address] [facility] [address] Performing Lab: [facility] [address] [facility] [address] [place] GLUCOSE 225 H 70-100 Mar 22, 2021 06:13 [facility] [place] GLUCOSE Speci men Type: BLOOD AM Comment: Abram [place] Notified Ordering Provid er: TEAM,CARD II Report Released Date/Time: Mar 22, 2021 12:13 PM Reporting Lab: [facility] [address] [facility] [address] Performing Lab: [facility] [address] [facility] [address] [place] GLUCOSE 155 H 70-100 Mar 21, 2021 07:36 [facility] [place] GLUCOSE Speci men Type: BLOOD PM Comment: Abram [place] Notified Ordering Provid er: TEAM,CARD II Report Released Date/Time: Mar 21, 2021 08:53 PM Reporting Lab: [facility] [address] [facility] [address] Performing Lab: [facility] [address] [facility] [address] [place] GLUCOSE 214 H 70-100 Mar 21, 2021 04:00 [facility] [place] GLUCOSE Speci men Type: BLOOD PM Comment: Abram [place] Notified Ordering Provid er: TEAM,CARD II Report Released Date/Time: Mar 21, 2021 04:27 PM Reporting Lab: [facility] [address] [facility] [address] Performing Lab: [facility] [address] [facility] [address] [place] GLUCOSE 252 H 70-100 Mar 21, 2021 11:43 [facility] [place] GLUCOSE Speci men Type: BLOOD AM Comment: [place] Nurse Notified Ordering Provid er: GRANTCARD II Report Released Date/Time: Mar 21, 2021 12:08 PM Reporting Lab: [facility] [address] [facility] [address] Performing Lab: [facility] [address] [facility] [address] [place] GLUCOSE 227 H 70-100 Mar 21, 2021 06:45 AM [facility] ALBUMIN Specim en Type: PLASMA No comment enter ed. Ordering Provid er: LISBET WASHINGTON V Report Released Date/Time: Mar 20, 2021 10:27 AM Reporting Lab: [facility] [address] [facility] [address] Performing Lab: [facility] [address] [facility] [address] ALBUMIN 3.5 3.5-5.2 Mar 21, 2021 06:45 [facility] BASIC METABOLIC Specimen Type: PLASMA AM PANEL+MG No comment enter ed. Ordering Provid er: RODO PINTO Report Released Date/Time: Mar 20, 2021 02:43 PM Reporting Lab: [facility] [address] [facility] [address] Performing Lab: [facility] [address] [facility] [address] CREATININE 1.5 H 0.7-1.2 UREA NITROGEN 26 8-26 GLUCOSE 207 H 74-100 SODIUM 140 136-145 POTASSIUM 4.4 3.5-5.1 CHLORIDE 109 H 98-107 CO2 24 22-29 CALCIUM 9.0 8.4-10.2 MAGNESIUM 2.3 1.6-2.6 ANION GAP 7 5-15 ESTIMATED GFR(eGFR) 46 L >60 Mar 21, 2021 06:38 [facility] [place] GLUCOSE Speci men Type: BLOOD AM Comment: [place] Nurse Notified Ordering Provid er: GRANTCARD II Report Released Date/Time: Mar 21, 2021 07:23 AM Reporting Lab: [facility] [address] [facility] [address] Performing Lab: [facility] [address] [facility] [address] [place] GLUCOSE 159 H 70-100 Mar 20, 2021 08:27 [facility] [place] GLUCOSE Speci men Type: BLOOD PM Comment: [place] Nurse Notified Ordering Provid er: GRANT,CARD II Report Released Date/Time: Mar 20, 2021 10:52 PM Reporting Lab: [facility] [address] [facility] [address] Performing Lab: [facility] [address] [facility] [address] [place] GLUCOSE 224 H 70-100 Mar 20, 2021 05:06 [facility] [place] GLUCOSE Speci men Type: BLOOD PM Comment: [place] Nurse Notified Ordering Provid er: GRANT,CARD II Report Released Date/Time: Mar 20, 2021 05:27 PM Reporting Lab: [facility] [address] [facility] [address] Performing Lab: [facility] [address] [facility] [address] [place] GLUCOSE 183 H 70-100 Mar 20, 2021 08:16 [facility] COVID-19 DIAGNOSTIC Speci men Type: NASOPHARYNGEAL AM PANEL (CEPHEID) Comment: Cephei d GeneXpert (618) Ordering Provid er: TUCKER JULIAN Report Released Date/Time: Mar 15, 2021 02:20 PM Reporting Lab: [facility] [address] [facility] [address] Performing Lab: [facility] [address] [facility] [address] COVID-19 (CEPHEID) Not Detected Not Dete cted Mar 20, 2021 08:16 [facility] BASIC METABOLIC Specimen Type: PLASMA AM PANEL+MG No comment enter ed. Ordering Provid er: TUCKER JULIAN Report Released Date/Time: Mar 15, 2021 02:20 PM Reporting Lab: [facility] [address] [facility] [address] Performing Lab: [facility] [address] [facility] [address] CREATININE 1.6 H 0.7-1.2 UREA NITROGEN 31 H 8-26 GLUCOSE 216 H 74-100 SODIUM 142 136-145 POTASSIUM 4.6 3.5-5.1 CHLORIDE 106 98-107 CO2 25 22-29 CALCIUM 9.3 8.4-10.2 MAGNESIUM 2.2 1.6-2.6 ANION GAP 11 5-15 ESTIMATED GFR(eGFR) 43 L >60 Mar 05, 2021 09:42 [facility] BASIC METABOLIC Specimen Type: PLASMA AM PANEL+MG No comment enter ed. Ordering Provid er: VICENTE PELAEZ Report Released Date/Time: Feb 19, 2021 01:50 PM Reporting Lab: [facility] [address] [facility] [address] Performing Lab: [facility] [address] [facility] [address] CREATININE 1.4 H 0.7-1.2 UREA NITROGEN 22 [...] 0 [place] 2020 08:45 /min mm[Hg] [facility] Social History: Smoking Status (Most current) and Tobacco Use (All prior to encounter date) This section includes the most current, and the historical, smoking and tobacco-related health factors from the [place] facility where the Encounter took place.Current Smoking Status This section includes the most current smoking, or tobacco-related health factor, from the [place] facility where the Encounter took place. Date/Time Current Smoking Status Comment Facility Mar 20, 2021 11:21 AM [place]-VAAES TOBACCO USE CURRENT NRT [facility] DECLINE Tobacco Use History This section includes a history of the smoking, or tobacco- related health factors, that were collected on or before the date of the Encounter. The data comes from the [place] facility where the Encounter took place. Date/Time Smoking Status/Tobacco Use Comment [facility] Nov 15, 2020 10:00 AM VA-TOBACCO DOESNT USE WI 30 MIN [facility] WAKEUP Nov 15, 2020 10:00 AM [place]-TOBACCO USE 30 YEARS OR MORE [facility] Nov 15, 2020 10:00 AM VA-TOBACCO USE ADVICE [facility] Nov 15, 2020 10:00 AM VA-TOBACCO USE RN ALLERGY NO [facility] Nov 15, 2020 10:00 AM VA-TOBACCO USE MED NO [facility] [facility] Nov 15, 2020 10:00 AM VA-TOBACCO USER EVERY DAY [facility] Jun 21, 2019 02:29 PM VA-TOBACCO USE 30 YEARS OR MORE [facility] Jun 21, 2019 02:29 PM VA-TOBACCO USE ADVICE [facility] Jun 21, 2019 02:29 PM VA-TOBACCO USE RN ALLERGY NO [facility] Jun 21, 2019 02:29 PM VA-TOBACCO USE MED NO [place] [facility] Jun 21, 2019 02:29 PM VA-TOBACCO USE WI 30 MIN OF WAKEUP [facility] Jun 21, 2019 02:29 PM VA-TOBACCO USER EVERY DAY [facility] Jun 09, 2018 03:48 PM VA-TOBACCO USE 30 YEARS OR MORE [facility] Jun 09, 2018 03:48 PM VA-TOBACCO USE ADVICE [facility] [facility] Jun 09, 2018 03:48 PM VA-TOBACCO USE RN ALLERGY NO [facility] Jun 09, 2018 03:48 PM VA-TOBACCO USE MED NO [place] [facility] Jun 09, 2018 03:48 PM VA-TOBACCO USE [place] 30 MIN OF WAKEUP [facility] Jun 09, 2018 03:48 PM VA-TOBACCO USER EVERY DAY [facility] Jun 20, 2017 07:53 AM CURRENT TOBACCO USER [facility] Jun 19, 2016 08:41 AM CURRENT TOBACCO USER [facility] Jun 21, 2015 08:15 AM CURRENT TOBACCO USER [facility] Mar 22, 2014 10:03 AM CURRENT TOBACCO USER [facility] Mar 25, 2013 11:01 AM CURRENT TOBACCO USER [facility] Feb 05, 2012 08:55 AM CURRENT TOBACCO USER [facility] January 01, 2011 09:26 AM CURRENT TOBACCO USER [facility] Mar 07, 2010 10:02 AM CURRENT TOBACCO USER [facility] Feb 21, 2009 08:17 AM CURRENT TOBACCO USER [facility] Nov 06, 2007 10:02 AM CURRENT TOBACCO USER [facility] January 02, 2007 10:33 AM CURRENT TOBACCO USER [facility] Advance Directives: All historical and current Section Date Range: From patient's date of to the date document was created. This section includes ALL of a patient's completed or amended [place] Advance and Rescinded Directives. The entries below indicate that a directive exists for the patient, but an actual copy is not included with this document. The data comes from all [place] facilities. Date Advance Directives Provider Source Mar 06, 2005 ADVANCE DIRECTIVE GANESH RODRIGUEZ [facility]
--- OUTSIDE RECORDS SUMMARY | 2022-04-02 16:04 | XMS_ITS ---
DAILY HOSPITALIZATION DATA [facility] Encounter Summary Created on:March 22, 2021 Patient:PAUL MICHELE Sex:Male :1945 Author Organization Department [facility] Address [address] [place] [address] Support Name Relationship Address Phone NIDIA MICHELE Unavailable [address] [place] [phone] NIDIA MICHELE Unavailable [address] [place] [phone] Insurance Providers: All historical and current Section [...] MEDICARE MEDICARE PART Jun 25, PART B [id number] Saumya QUINONES PATIENT (WNR) (M) B 2011 78A 0 AVID MEDICARE MEDICARE PART Sep 25, PART A [id number] Saumya QUINONES PATIENT (WNR) (M) A 2009 78A 0 AVID MEDICARE MEDICARE PART Sep 25, PART A [id number] Saumya MICHELE (WNR) (M) A 2009 [id number] AVID MEDICARE MEDICARE PART Sep 25, PART B [id number] Saumya MICHELE (WNR) (M) B 2009 [id number] AVID Selected Encounter This section includes the information on record at [place] for the Encounter. Date/Time Encounter Type Encounter Description Reason Provider Source Mar 22, 2021 Inpatient Visit DAILY HOSPITALIZATION HOWARD GARRISON 01:38 AM DATA A [facility] Encounter Template Text not used by [place] Plan of Treatment: Future Appointments (+ 6 months) and Future Tests (+/- 45 days) The Plan of Treatment section includes future care activities for the [facility] [place] This section includes future appointments and future orders which are active, pending orscheduled.Future Appointments This section includes appointments that were scheduled to occur 6 months from the date of the Encounter, up to a maximum of 20 appointments. The data comes from all [place] treatment facilities. Appointment Date/Time Appointment Type Appointment Facili ty Name Mar 23, 2021 02:30 PM AMBULATORY - MEDICINE [facility] Mar 23, 2021 03:00 PM AMBULATORY - MEDICINE [facility] Mar 26, 2021 09:00 AM AMBULATORY - NONE [facility] Apr 02, 2021 01:13 PM AMBULATORY - MEDICINE [facility] May 08, 2021 02:00 PM AMBULATORY - NONE [facility] Jun 13, 2021 02:00 PM AMBULATORY - NONE [facility] Jun 18, 2021 12:45 PM AMBULATORY - NONE [facility] Jun 18, 2021 01:30 PM AMBULATORY - MEDICINE [facility] Jun 20, 2021 10:00 AM AMBULATORY - MEDICINE [facility] Jul 11, 2021 01:00 PM AMBULATORY - NONE [facility] Jul 26, 2021 09:00 AM AMBULATORY - MEDICINE [facility] Jul 26, 2021 10:30 AM AMBULATORY - NONE [facility] Aug 03, 2021 10:46 AM AMBULATORY - MEDICINE [facility] Aug 08, 2021 07:00 AM AMBULATORY - NONE [facility] Aug 10, 2021 10:30 AM AMBULATORY - NONE [facility] Sep 14, 2021 09:00 AM AMBULATORY - NONE [facility] Sep 21, 2021 09:45 AM AMBULATORY - MEDICINE [facility] Sep 21, 2021 10:00 AM AMBULATORY - MEDICINE [facility] Sep 21, 2021 10:30 AM AMBULATORY - MEDICINE [facility] Sep 21, 2021 11:00 AM AMBULATORY - MEDICINE [facility] Lab Results: +/- 30 days [...] Range Comment Mar 23, 2021 09:57 AM [facility] POTASSIUM Specim en Type: PLASMA No comment enter ed. Ordering Provid er: VELANGI,RODO S Report Released Date/Time: Mar 23, 2021 09:33 AM Reporting Lab: [facility] [address] [facility] [address] Performing Lab: [facility] [address] [facility] [address] POTASSIUM 4.6 3.5-5.1 Mar 23, 2021 06:48 AM [facility] MAGNESIUM Specim en Type: PLASMA No comment enter ed. Ordering Provid er: RODO PINTO Report Released Date/Time: Mar 22, 2021 10:19 AM Reporting Lab: [facility] [address] [facility] [address] Performing Lab: [facility] [address] [facility] [address] MAGNESIUM 2.2 1.6-2.6 Mar 23, 2021 06:48 [facility] BASIC METABOLIC Specimen Type: PLASMA AM PANEL+MG Comment: Cancel lation Called to: Dora Mae MSA 03/23/2021 @ 3530 by AEK. 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 Ordering Provid er: RODO PINTO Report Released Date/Time: Mar 22, 2021 10:19 AM Reporting Lab: [facility] [address] [facility] [address] Performing Lab: [facility] [address] [facility] [address] CREATININE 1.3 H 0.7-1.2 UREA NITROGEN 25 8-26 GLUCOSE 170 H 74-100 SODIUM 139 136-145 POTASSIUM canc 3.5-5.1 CHLORIDE 109 H 98-107 CO2 23 22-29 CALCIUM 9.0 8.4-10.2 MAGNESIUM 2.2 1.6-2.6 ANION GAP 7 5-15 ESTIMATED GFR(eGFR) 54 L >60 Mar 23, 2021 06:13 [facility] FINGERSTICK GLUCOSE Speci men Type: BLOOD AM Comment: [place] Nurse Notified Ordering Provid er: DARLYN BURNS II Report Released Date/Time: Mar 23, 2021 07:07 AM Reporting Lab: [facility] [address] [facility] [address] Performing Lab: [facility] [address] [facility] [address] FINGERSTICK GLUCOSE 168 H 70-100 Mar 22, 2021 08:30 [facility] FINGERSTICK GLUCOSE Speci men Type: BLOOD PM Comment: VENOUS SAMPLE Ordering Provid er: DARLYN BURNS II Report Released Date/Time: Mar 23, 2021 08:23 AM Reporting Lab: [facility] [address] [facility] [address] Performing Lab: [facility] [address] [facility] [address] FINGERSTICK GLUCOSE 240 H 70-100 Mar 22, 2021 04:28 [facility] FINGERSTICK GLUCOSE Speci men Type: BLOOD PM Comment: Abram Welch Notified Ordering Provid er: GRANTCARD II Report Released Date/Time: Mar 22, 2021 04:42 PM Reporting Lab: [facility] [address] [facility] [address] Performing Lab: [facility] [address] [facility] [address] FINGERSTICK GLUCOSE 197 H 70-100 Mar 22, 2021 11:28 [facility] FINGERSTICK GLUCOSE Speci men Type: BLOOD AM Comment: Abram Welch Notified Ordering Provid er: GRANTCARD II Report Released Date/Time: Mar 22, 2021 12:14 PM Reporting Lab: [facility] [address] [facility] [address] Performing Lab: [facility] [address] [facility] [address] FINGERSTICK GLUCOSE 225 H 70-100 Mar 22, 2021 06:13 [facility] FINGERSTICK GLUCOSE Speci men Type: BLOOD AM Comment: Abram Welch Notified Ordering Provid er: DARLYN BURNS II Report Released Date/Time: Mar 22, 2021 12:13 PM Reporting Lab: [facility] [address] [facility] [address] Performing Lab: [facility] [address] [facility] [address] FINGERSTICK GLUCOSE 155 H 70-100 Mar 21, 2021 07:36 [facility] FINGERSTICK GLUCOSE Speci men Type: BLOOD PM Comment: Abram Welch Notified Ordering Provid er: DARLYN BURNS II Report Released Date/Time: Mar 21, 2021 08:53 PM Reporting Lab: [facility] [address] [facility] [address] Performing Lab: [facility] [address] [facility] [address] FINGERSTICK GLUCOSE 214 H 70-100 Mar 21, 2021 04:00 [facility] FINGERSTICK GLUCOSE Speci men Type: BLOOD PM Comment: Save R esult Nurse Notified Ordering Provid er: DARLYN BURNS II Report Released Date/Time: Mar 21, 2021 04:27 PM Reporting Lab: [facility] [address] [facility] [address] Performing Lab: [facility] [address] [facility] [address] FINGERSTICK GLUCOSE 252 H 70-100 Mar 21, 2021 11:43 [facility] FINGERSTICK GLUCOSE Speci men Type: BLOOD AM Comment: [place] Nurse Notified Ordering Provid er: DARLYN BURNS II Report Released Date/Time: Mar 21, 2021 12:08 PM Reporting Lab: [facility] [address] [facility] [address] Performing Lab: [facility] [address] [facility] [address] FINGERSTICK GLUCOSE 227 H 70-100 Mar 21, 2021 06:45 AM [facility] ALBUMIN Specim en Type: PLASMA No comment enter ed. Ordering Provid er: LISBET WASHINGTON V Report Released Date/Time: Mar 20, 2021 10:27 AM Reporting Lab: [facility] [address] [facility] [address] Performing Lab: [facility] [address] [facility] [address] ALBUMIN 3.5 3.5-5.2 Mar 21, 2021 06:45 [facility] BASIC METABOLIC Specimen Type: PLASMA AM PANEL+MG No comment enter ed. Ordering Provid er: RODO PINTO Report Released Date/Time: Mar 20, 2021 02:43 PM Reporting Lab: [facility] [address] [facility] [address] Performing Lab: [facility] [address] [facility] [address] CREATININE 1.5 H 0.7-1.2 UREA NITROGEN 26 8-26 GLUCOSE 207 H 74-100 SODIUM 140 136-145 POTASSIUM 4.4 3.5-5.1 CHLORIDE 109 H 98-107 CO2 24 22-29 CALCIUM 9.0 8.4-10.2 MAGNESIUM 2.3 1.6-2.6 ANION GAP 7 5-15 ESTIMATED GFR(eGFR) 46 L >60 Mar 21, 2021 06:38 [facility] FINGERSTICK GLUCOSE Speci men Type: BLOOD AM Comment: [place] Nurse Notified Ordering Provid er: DARLYN BURNS II Report Released Date/Time: Mar 21, 2021 07:23 AM Reporting Lab: [facility] [address] [facility] [address] Performing Lab: [facility] [address] [facility] [address] FINGERSTICK GLUCOSE 159 H 70-100 Mar 20, 2021 08:27 [facility] FINGERSTICK GLUCOSE Speci men Type: BLOOD PM Comment: [place] Nurse Notified Ordering Provid er: TEAM,CARD II Report Released Date/Time: Mar 20, 2021 10:52 PM Reporting Lab: [facility] [address] [facility] [address] Performing Lab: [facility] [address] [facility] [address] FINGERSTICK GLUCOSE 224 H 70-100 Mar 20, 2021 05:06 [facility] FINGERSTICK GLUCOSE Speci men Type: BLOOD PM Comment: [place] Nurse Notified Ordering Provid er: TEAM,CARD II Report Released Date/Time: Mar 20, 2021 05:27 PM Reporting Lab: [facility] [address] [facility] [address] Performing Lab: [facility] [address] [facility] [address] FINGERSTICK GLUCOSE 183 H 70-100 Mar 20, 2021 08:16 [facility] COVID-19 DIAGNOSTIC Speci men Type: NASOPHARYNGEAL AM PANEL (CEPHEID) Comment: Wiley samuel GeneXpert (618) Ordering Provid er: TUCKER JULIAN Report Released Date/Time: Mar 15, 2021 02:20 PM Reporting Lab: [facility] [address] [facility] [address] Performing Lab: [facility] [address] [facility] [address] COVID-19 (CEPHEID) Not Detected Not Dete cted Mar 20, 2021 08:16 [facility] BASIC METABOLIC Specimen Type: PLASMA AM PANEL+MG No comment enter ed. Ordering Provid er: TUCKER JULIAN Report Released Date/Time: Mar 15, 2021 02:20 PM Reporting Lab: [facility] [address] [facility] [address] Performing Lab: [facility] [address] [facility] [address] CREATININE 1.6 H 0.7-1.2 UREA NITROGEN 31 H 8-26 GLUCOSE 216 H 74-100 SODIUM 142 136-145 POTASSIUM 4.6 3.5-5.1 CHLORIDE 106 98-107 CO2 25 22-29 CALCIUM 9.3 8.4-10.2 MAGNESIUM 2.2 1.6-2.6 ANION GAP 11 5-15 ESTIMATED GFR(eGFR) 43 L >60 Mar 05, 2021 09:42 [facility] BASIC METABOLIC Specimen Type: PLASMA AM PANEL+MG No comment enter ed. Ordering Provid er: VICENTE PELAEZ Report Released Date/Time: Feb 19, 2021 01:50 PM Reporting Lab: [facility] [address] [facility] [address] Performing Lab: [facility] [address] CREATININE 1.4 H 0.7-1.2 UREA NITROGEN 22 [...] 0 [place] 2020 08:55 /min mm[Hg] [facility] Social History: Smoking Status (Most [...] Comment Facility Mar 20, 2021 11:[facility] N[facility] DECLINE Tobacco Use History This section includes a history of the smoking, or tobacco- related health factors, that were collected on or before the date of the Encounter. The data comes from the [place] facility where the Encounter took place. Date/Time Smoking Status/Tobacco Use Comment Facil ity Nov 15, 2020 10:00 AM [place]-TOBACCO DOESNT USE WI 30 MIN [facility] WAKEUP Nov 15, 2020 10:00 AM [facility]-TOBACCO USE 30 YEARS OR MORE [facility] Nov 15, 2020 10:00 AM VA-TOBACCO USE ADVICE [place] [facility] Nov 15, 2020 10:00 AM VA-TOBACCO USE LATHE SANDER NO [facility] Nov 15, 2020 10:00 AM VA-TOBACCO USE MED NO [place] [facility] Nov 15, 2020 10:00 AM VA-TOBACCO USER EVERY DAY [facility] Jun 21, 2019 02:29 PM VA-TOBACCO USE 30 YEARS OR MORE [facility] Jun 21, 2019 02:29 PM VA-TOBACCO USE ADVICE [place] [facility] Jun 21, 2019 02:29 PM VA-TOBACCO USE LATHE SANDER NO [facility] Jun 21, 2019 02:29 PM VA-TOBACCO USE MED NO [place] [facility] Jun 21, 2019 02:29 PM VA-TOBACCO USE WI 30 MIN OF WAKEUP [facility] Jun 21, 2019 02:29 PM VA-TOBACCO USER EVERY DAY [facility] Jun 09, 2018 03:48 PM VA-TOBACCO USE 30 YEARS OR MORE [facility] Jun 09, 2018 03:48 PM VA-TOBACCO USE ADVICE [place] [facility] Jun 09, 2018 03:48 PM VA-TOBACCO USE LATHE SANDER NO [facility] Jun 09, 2018 03:48 PM VA-TOBACCO USE MED NO [place] [facility] Jun 09, 2018 03:48 PM VA-TOBACCO USE WI 30 MIN OF WAKEUP [facility] Jun 09, 2018 03:48 PM VA-TOBACCO USER EVERY DAY [facility] Jun 20, 2017 07:53 AM [facility] Jun 19, 2016 08:41 AM [facility] Jun 21, 2015 08:15 AM CURRENT [facility]BACCO [facility]ER [facility] Mar 22, 2014 10:03 AM [facility] Mar 25, 2013 11:01 AM CURRENT TOBACCO USER [facility] Feb 05, 2012 08:55 AM CURRENT TOBACCO USER [facility] January 01, 2011 09:26 AM CURRENT [facility]AC[facility] Mar 07[facility] 2010 10:02 AM CUR[facility]AC[facility] Feb 21, 2009 08:17 AM CUR[facility] Nov 06, 2007 10:02 AM CURRENT TOBACCO USER [facility] January 02, 2007 10:33 AM CURRENT TOBACCO USER [facility] Advance Directives: All historical and current [...] Mar 06, 2005 ADVANCE DIRECTIVE GANESH RODRIGUEZ [facility]
--- OUTSIDE RECORDS SUMMARY | 2022-04-02 16:04 | XMS_ITS | Encounter Summary ---
:1945 Author Organization Department [facility] Address [address] [place] [id number] Care Team Providers Name Role Phone CROUCH [...] MEDICARE MEDICARE PART Jun 25, PART B [id number] Saumya QUINONES PATIENT (WNR) (M) B 2011 78A 0 AVID MEDICARE MEDICARE PART Sep 25, PART A [id number] Saumya QUINONES PATIENT (WNR) (M) A 2009 78A 0 AVID MEDICARE MEDICARE PART Sep 25, PART A [id number] Saumya MICHELE (WNR) (M) A 2009 78A [id number] AVID MEDICARE MEDICARE PART Sep 25, PART B [id number] Saumya MICHELE (WNR) (M) B 2009 [id number] AVID Selected Encounter This section includes the information on record at [place] for the Encounter. Date/Time Encounter Type Encounter Description Reason Provider Source Mar 23, 2021 12:00 AM Inpatient Visit EVENT (HISTORICAL) IHE Encounter Template Text not used by [place] Plan of Treatment: Future Appointments (+ 6 months) and Future Tests (+/- 45 days) The Plan of Treatment section includes [facility] care [facility] the [facility] [place] [facility] This section includes future appointments and future orders which are active, pending orscheduled.Future Appointments This section includes appointments that were scheduled to occur 6 months from the date of the Encounter, up to a maximum of 20 appointments. The data comes from all [place] treatment facilities. Appointment Date/Time Appointment Type Appointment Facili ty Name Mar 26, 2021 09:00 AM AMBULATORY - NONE [facility] Apr 02, 2021 01:13 PM AMBULATORY - [facility]ICINE [facility] May 08, 2021 02:00 PM AMBULATORY - NONE [facility] Jun 13, 2021 02:00 PM AMBULATORY - NONE [facility] Jun 18, 2021 12:45 PM AMBULATORY - [facility] Jun 18, 2021 01:30 PM AMBULATORY - MEDICINE [facility] Jun 20, 2021 10:00 AM AMBULATORY - MEDICINE [facility] Jul 11, 2021 01:00 PM AMBULATORY - [facility] Jul 26, 2021 09:00 AM AMBULATORY - MEDICINE [facility] Jul 26, 2021 10:30 AM AMBULATORY - [facility] Aug 03, 2021 10:46 AM AMBULATORY - [facility]ICINE [facility] Aug 08, 2021 07:00 AM AMBULATORY - NONE [facility] Aug 10, 2021 10:30 AM AMBULATORY - NONE [facility] Sep 14, 2021 09:00 AM AMBULATORY - [facility] Sep 21, 2021 09:45 AM AMBULATORY - MEDICINE [facility] Sep 21, 2021 10:00 AM AMBULATORY - MEDICINE [facility] Sep 21, 2021 10:30 AM AMBULATORY - MEDICINE [facility] Sep 21, 2021 11:00 AM AMBULATORY - MEDICINE [facility] Sep 21, 2021 11:30 AM AMBULATORY - MEDICINE [facility] Lab Results: +/- 30 days of [...] Range Comment Mar 23, 2021 09:57 AM [facility] POTASSIUM Specim en Type: PLASMA No comment enter ed. Ordering Provid er: RODO PINTO Report Released Date/Time: Mar 23, 2021 09:33 AM Reporting Lab: [facility] [address] [facility] [address] Performing Lab: [facility] [address] [facility] [address] POTASSIUM 4.6 mmol/L 3.5-5.1 Mar 23, 2021 06:48 [facility] BASIC METABOLIC Specimen Type: PLASMA AM PANEL+MG Comment: Cancel lation Called to: Dora Mae MSA 03/23/2021 @ 0930 by AEK. 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 Ordering Provid er: RODO PINTO Report Released Date/Time: Mar 22, 2021 10:19 AM Reporting Lab: [facility] [address] [facility] [address] Performing Lab: [facility] [address] [facility] [address] CREATININE 1.3 mg/dL H 0.7-1.2 UREA NITROGEN 25 mg/dL 8-26 GLUCOSE 170 mg/dL H 74-100 SODIUM 139 mmol/L 136-145 POTASSIUM canc mmol/L 3.5-5.1 CHLORIDE 109 mmol/L H 98-107 CO2 23 mmol/L 22-29 CALCIUM 9.0 mg/dL 8.4-10.2 MAGNESIUM 2.2 mg/dL 1.6-2.6 ANION GAP 7 mmol/L 5-15 ESTIMATED GFR(eGFR) 54 L >60 Mar 23, 2021 06:48 AM [facility] MAGNESIUM Specim en Type: PLASMA No comment enter ed. Ordering Provid er: RODO PINTO Report Released Date/Time: Mar 22, 2021 10:19 AM Reporting Lab: [facility] [address] [facility] [address] Performing Lab: [facility] [address] [facility] [address] MAGNESIUM 2.2 mg/dL 1.6-2.6 Mar 23, 2021 06:13 [facility] [place] GLUCOSE Speci men Type: BLOOD AM Comment: [place] Nurse Notified Ordering Provid er: TEAM,CARD II Report Released Date/Time: Mar 23, 2021 07:07 AM Reporting Lab: [facility] [address] [facility] [address] Performing Lab: [facility] [address] [facility] [address] FINGERSTICK GLUCOSE 168 mg/dL H 70-100 Mar 22, 2021 08:30 [facility] [place] GLUCOSE Speci men Type: BLOOD PM Comment: VENOUS SAMPLE Ordering Provid er: DARLYN BURNS II Report Released Date/Time: Mar 23, 2021 08:23 AM Reporting Lab: [facility] [address] [facility] [address] Performing Lab: [facility] [address] [facility] [address] FINGERSTICK GLUCOSE 240 mg/dL H 70-100 Mar 22, 2021 04:28 [facility] [place] GLUCOSE Speci men Type: BLOOD PM Comment: [place] Nurse Notified Ordering Provid er: DARLYN BURNS II Report Released Date/Time: Mar 22, 2021 04:42 PM Reporting Lab: [facility] [address] [facility] [address] Performing Lab: [facility] [address] [facility] [address] FINGERSTICK GLUCOSE 197 mg/dL H 70-100 Mar 22, 2021 11:28 [facility] [place] GLUCOSE Speci men Type: BLOOD AM Comment: [place] Nurse Notified Ordering Provid er: GRANTCARD II Report Released Date/Time: Mar 22, 2021 12:14 PM Reporting Lab: [facility] [address] [facility] [address] Performing Lab: [facility] [address] [facility] [address] FING[place]ICK GLUCOSE 225 mg/dL H 70-100 Mar 22, 2021 06:13 [facility] [place] GLUCOSE Speci men Type: BLOOD AM Comment: [place] Nurse Notified Ordering Provid er: DARLYN BURNS II Report Released Date/Time: Mar 22, 2021 12:13 PM Reporting Lab: [facility] [address] [facility] [address] Performing Lab: [facility] [address] [facility] [address] FING[place] GLUCOSE 155 mg/dL H 70-100 Mar 21, 2021 07:36 [facility] [place] GLUCOSE Speci men Type: BLOOD PM Comment: [place] Nurse Notified Ordering Provid er: GRANTCARD II Report Released Date/Time: Mar 21, 2021 08:53 PM Reporting Lab: [facility] [address] [facility] [address] Performing Lab: [facility] [address] [facility] [address] FINGERSTICK GLUCOSE 214 mg/dL H 70-100 Mar 21, 2021 04:00 [facility] F[place] GLUCOSE Speci men Type: BLOOD PM Comment: [place] Nurse Notified Ordering Provid er: GRANTCARD II Report Released Date/Time: Mar 21, 2021 04:27 PM Reporting Lab: [facility] [address] [facility] [address] Performing Lab: [facility] [address] [facility] [address] FINGER[place]ICK GLUCOSE 252 mg/dL H 70-100 Mar 21, 2021 11:43 [facility] [place] GLUCOSE Speci men Type: BLOOD AM Comment: [place] Nurse Notified Ordering Provid er: GRANTCARD II Report Released Date/Time: Mar 21, 2021 12:08 PM Reporting Lab: [facility] [address] [facility] [address] Performing Lab: [facility] [address] [facility] [address] FING[place] GLUCOSE 227 mg/dL H 70-100 Mar 21, 2021 06:45 AM [facility] ALBUMIN Specim en Type: PLASMA No comment enter ed. Ordering Provid er: LISBET W[place] V Report Released Date/Time: Mar 20, 2021 10:27 AM Reporting Lab: [facility] [address] [facility] [address] Performing Lab: [facility] [address] [facility] [address] ALBUMIN 3.5 g/dL 3.5-5.2 Mar 21, 2021 06:45 [facility] BASIC METABOLIC Specimen Type: PLASMA AM PANEL+MG No comment enter ed. Ordering Provid er: RODO PINTO Report Released Date/Time: Mar 20, 2021 02:43 PM Reporting Lab: [facility] [address] [facility] [address] Performing Lab: [facility] [address] [facility] [address] CREATININE 1.5 mg/dL H 0.7-1.2 UREA NITROGEN 26 mg/dL 8-26 GLUCOSE 207 mg/dL H 74-100 SODIUM 140 mmol/L 136-145 POTASSIUM 4.4 mmol/L 3.5-5.1 CHLORIDE 109 mmol/L H 98-107 CO2 24 mmol/L 22-29 CALCIUM 9.0 mg/dL 8.4-10.2 MAGNESIUM 2.3 mg/dL 1.6-2.6 ANION GAP 7 mmol/L 5-15 ESTIMATED GFR(eGFR) 46 L >60 Mar 21, 2021 06:38 [facility] [place] GLUCOSE Speci men Type: BLOOD AM Comment: [place] Nurse Notified Ordering Provid er: TEAM,CARD II Report Released Date/Time: Mar 21, 2021 07:23 AM Reporting Lab: [facility] [address] [facility] [address] [facility] [address] [place] GLUCOSE 159 mg/dL H 70-100 Mar 20, 2021 08:27 [facility] [place] GLUCOSE Speci men Type: BLOOD PM Comment: [place] Nurse Notified Ordering Provid er: GRANT,CARD II Report Released Date/Time: Mar 20, 2021 10:52 PM Reporting Lab: [facility] [address] Performing Lab: [facility] [address] [place] GLUCOSE 224 mg/dL H 70-100 Mar 20, 2021 05:06 [facility] [place] GLUCOSE Speci men Type: BLOOD PM Comment: [place] Nurse Notified Ordering Provid er: GRANTCARD II Report Released Date/Time: Mar 20, 2021 05:27 PM Reporting [facility]: [facility] [address] Performing Lab: [facility] [address] [place] GLUCOSE 183 mg/dL H 70-100 Mar 20, 2021 08:16 [facility] BASIC METABOLIC Specimen Type: PLASMA AM PANEL+MG No comment enter ed. Ordering Provid er: TUCKER JULIAN Report Released Date/Time: Mar 15, 2021 02:20 PM Reporting [facility] [address] Performing Lab: [facility] [address] CREATININE 1.6 mg/dL H 0.7-1.2 UREA NITROGEN 31 mg/dL H 8-26 GLUCOSE 216 mg/dL H 74-100 SODIUM 142 mmol/L 136-145 POTASSIUM 4.6 mmol/L 3.5-5.1 CHLORIDE 106 mmol/L 98-107 CO2 25 mmol/L 22-29 CALCIUM 9.3 mg/dL 8.4-10.2 MAGNESIUM 2.2 mg/dL 1.6-2.6 ANION GAP 11 mmol/L 5-15 ESTIMATED GFR(eGFR) 43 L >60 Mar 20, 2021 08:16 [facility] COVID-19 DIAGNOSTIC Speci men Type: NASOPHARYNGEAL AM PANEL (CEPHEID) Comment: Wiley samuel GeneXpert (618) Ordering Provid er: TUCKER JULIAN Report Released Date/Time: Mar 15, 2021 02:20 PM Reporting Lab: [facility] [address] Performing Lab: [facility] [address] COVID-19 (CEPHEID) Not Detected Not Dete cted Mar 05, 2021 09:42 [facility] BASIC METABOLIC Specimen Type: PLASMA AM PANEL+MG No comment enter ed. Ordering Provid er: VICENTE PELAEZ Report Released Date/Time: Feb 19, 2021 01:50 PM Reporting Lab: [facility] [address] Performing Lab: [facility] [address] CREATININE 1.4 mg/dL H 0.7-1.2 UREA NITROGEN [...] 0 [place] 2020 08:45 /min mm[Hg] [facility] Social History: Smoking Status (Most current) and [...] 11:21 AM [facility] TOBACCO USE CURRENT NRT [facility] DECLINE Tobacco Use History This section includes a history of the smoking, or tobacco- related health factors, that were collected on or before the date of the Encounter. The data comes from the [place] facility where the Encounter took place. 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 [facility] Nov 15, 2020 10:00 AM VA-TOBACCO USE MED NO [facility] Nov 15, 2020 10:00 AM VA-TOBACCO USER EVERY DAY [facility] Jun 21, 2019 02:29 PM VA-TOBACCO USE 30 YEARS OR MORE [facility] Jun 21, 2019 02:29 PM VA-TOBACCO USE ADVICE [facility] Jun 21, 2019 02:29 PM VA-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 [facility] Jun 21, 2019 02:29 PM VA-TOBACCO USE MED NO [facility] [facility] Jun 21, 2019 02:29 PM VA-TOBACCO USE [place] 30 MIN OF WAKEUP [facility] Jun 21, 2019 02:29 PM VA-TOBACCO USER EVERY DAY [facility] Jun 09, 2018 03:48 PM VA-TOBACCO USE 30 YEARS OR MORE [facility] Jun 09, 2018 03:48 PM VA-TOBACCO USE ADVICE [facility] [facility] Jun 09, 2018 03:48 PM 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
--- OUTSIDE RECORDS SUMMARY | 2022-04-02 16:05 | XMS_ITS | Encounter Summary ---
:1945 Author Organization Department [facility] Address [address] [place] [id number] Care Team Providers Name Role Phone SAKSHI [...] MEDICARE MEDICARE PART Jun 25, PART B [id number] Saumya QUINONES PATIENT (WNR) (M) B 2011 78A 0 AVID MEDICARE MEDICARE PART Sep 25, PART A [id number] Saumya QUINONES PATIENT (WNR) (M) A 2009 78A 0 AVID MEDICARE MEDICARE PART Sep 25, PART A [id number] Saumya MICHELE ATIENT (WNR) (M) A 2009 78A [phone] AVID MEDICARE MEDICARE PART Sep 25, PART B [id number] Saumya MICHELE ATIENT (WNR) (M) B 2009 78A [phone] AVID Selected Encounter This section includes the information on record at [place] for the Encounter. Date/Time Encounter Type Encounter Reason Provider Source Description Mar 20, 2021 OFFICE O/P EST CARDIOLOGY ICD-10-CM I48.19 GLAUSERTUCKER 09:15 AM MOD 30-39 MIN Other persistent N atrial fibrillation with Provider Comments: Persistent atrial fibrillation ([facility] [id number]) IHE Encounter Template Text not used by [facility] Assessments - Encounter Diagnoses This section includes the primary and secondary diagnoses documented for the Encounter. Date/Time Primary/Secondary Diagnosis Name Provider Source Diagnosis Mar 20, 2021 PRIMARY Other persistent TUCKER JULIAN [facility] 10:49 AM atrial N HCS fibrillation Plan of Treatment: Future Appointments (+ 6 months) and Future Tests (+/- 45 days) The Plan of Treatment section includes future care activities for the patient from all [place] treatmentfacilities. This section includes future appointments and future orders which are active, pending orscheduled.Future Appointments This section includes appointments that were scheduled to occur 6 months from the date of the Encounter, up to a maximum of 20 appointments. The data comes from all [place] treatment facilities. Appointment Date/Time Appointment Type Appointment Facili ty Name Mar 22, 2021 06:26 PM AMBULATORY - MEDICINE [facility] Mar 23, 2021 02:30 PM AMBULATORY - MEDICINE [facility] Mar 23, 2021 03:00 PM AMBULATORY - MEDICINE [facility] Mar 26, 2021 09:00 AM AMBULATORY - NONE [facility] Apr 02, 2021 01:13 PM AMBULATORY - MEDICINE [facility] May 08, 2021 02:00 PM AMBULATORY - NONE [facility] Jun 13, 2021 02:00 PM AMBULATORY - NONE [facility] Jun 18, 2021 12:45 PM AMBULATORY - NONE [facility] Jun 18, 2021 01:30 PM AMBULATORY - MEDICINE [facility] Jun 20, 2021 10:00 AM AMBULATORY - MEDICINE [facility] Jul 11, 2021 01:00 PM AMBULATORY - NONE [facility] Jul 26, 2021 09:00 AM AMBULATORY - MEDICINE [facility] Jul 26, 2021 10:30 AM AMBULATORY - NONE [facility] Aug 03, 2021 10:46 AM AMBULATORY - MEDICINE [facility] Aug 08, 2021 07:00 AM AMBULATORY - NONE [facility] Aug 10, 2021 10:30 AM AMBULATORY - NONE [facility] Sep 14, 2021 09:00 AM AMBULATORY - NONE [facility] Lab Results: +/- 30 days of the encounter This section includes the Chemistry and Hematology Lab Results on record with [place] for the patient. Radiology Reports and Pathology Reports are provided separately, in subsequent sections.Lab Results This section contains the Chemistry/Hematology Results that were resulted 30 days before or 30 daysafter the date of the Encounter. Date/Time Source Result Type Result - Unit Interpretation Reference Range Comment Mar 23, 2021 09:57 AM [facility] POTASSIUM Specim en Type: PLASMA No comment enter ed. Ordering Provid er: RODO PINTO Report Released Date/Time: Mar 23, 2021 09:33 AM Reporting [facility] [phone] Performing Lab: [facility] [address] POTASSIUM 4.6 mmol/L 3.5-5.1 Mar 23, 2021 06:48 [facility] BASIC METABOLIC Specimen Type: PLASMA AM PANEL+MG Comment: Cancel lation Called to: Dora Mae MSA 03/23/2021 @ 0930 by AEK. 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 Ordering Provid er: RODO PINTO Report Released Date/Time: Mar 22, 2021 10:19 AM Reporting Lab: [facility] [address] Performing Lab: [facility] [address] CREATININE 1.3 mg/dL H 0.7-1.2 UREA NITROGEN 25 mg/dL 8-26 GLUCOSE 170 mg/dL H 74-100 SODIUM 139 mmol/L 136-145 POTASSIUM canc mmol/L 3.5-5.1 CHLORIDE 109 mmol/L H 98-107 CO2 23 mmol/L 22-29 CALCIUM 9.0 mg/dL 8.4-10.2 MAGNESIUM 2.2 mg/dL 1.6-2.6 ANION GAP 7 mmol/L 5-15 ESTIMATED GFR(eGFR) 54 L >60 Mar 23, 2021 06:48 AM [facility] MAGNESIUM Specim en Type: PLASMA No comment enter ed. Ordering Provid er: RODO PINTO Report Released Date/Time: Mar 22, 2021 10:19 AM Reporting Lab: [facility] [address] [facility] [address] Performing Lab: [facility] [address] MAGNESIUM 2.2 mg/dL 1.6-2.6 Mar 23, 2021 06:13 [facility] FINGERSTICK GLUCOSE Speci men Type: BLOOD AM Comment: Abram Welch Notified Ordering Provid er: GRANT,CARD II Report Released Date/Time: Mar 23, 2021 07:07 AM Reporting Lab: [facility] [address] [facility] [address] Performing Lab: [facility] [address] [facility] [address] FINGERSTICK GLUCOSE 168 mg/dL H 70-100 Mar 22, 2021 08:30 [facility] FINGERSTICK GLUCOSE Speci men Type: BLOOD PM Comment: VENOUS SAMPLE Ordering Provid er: GRANTCARD II Report Released Date/Time: Mar 23, 2021 08:23 AM Reporting Lab: [facility] [address] [facility] [address] Performing Lab: [facility] [address] [facility] [address] FINGERSTICK GLUCOSE 240 mg/dL H 70-100 Mar 22, 2021 04:28 [facility] FINGERSTICK GLUCOSE Speci men Type: BLOOD PM Comment: Abram Welch Notified Ordering Provid er: GRANTCARD II Report Released Date/Time: Mar 22, 2021 04:42 PM Reporting Lab: [facility] [address] [facility] [address] Performing Lab: [facility] [address] [facility] [address] FINGERSTICK GLUCOSE 197 mg/dL H 70-100 Mar 22, 2021 11:28 [facility] FINGERSTICK GLUCOSE Speci men Type: BLOOD AM Comment: Abram Welch Notified Ordering Provid er: GRANTCARD II Report Released Date/Time: Mar 22, 2021 12:14 PM Reporting Lab: [facility] [address] [facility] [address] Performing Lab: [facility] [address] [facility] [address] FINGERSTICK GLUCOSE 225 mg/dL H 70-100 Mar 22, 2021 06:13 [facility] FINGERSTICK GLUCOSE Speci men Type: BLOOD AM Comment: Abram Welch Notified Ordering Provid er: GRANTCARD II Report Released Date/Time: Mar 22, 2021 12:13 PM Reporting Lab: [facility] [address] [facility] [address] Performing Lab: [facility] [address] [facility] [address] FINGERSTICK GLUCOSE 155 mg/dL H 70-100 Mar 21, 2021 07:36 [facility] FINGERSTICK GLUCOSE Speci men Type: BLOOD PM Comment: Abram rock Nurse Notified Ordering Provid er: GRANT,CARD II Report Released Date/Time: Mar 21, 2021 08:53 PM Reporting Lab: [facility] [address] [facility] [address] Performing Lab: [facility] [address] [facility] [address] FINGERSTICK GLUCOSE 214 mg/dL H 70-100 Mar 21, 2021 04:00 [facility] FINGERSTICK GLUCOSE Speci men Type: BLOOD PM Comment: Abram rock Nurse Notified Ordering Provid er: TEAM,CARD II Report Released Date/Time: Mar 21, 2021 04:27 PM Reporting Lab: [facility] [address] [facility] [address] Performing Lab: [facility] [address] [facility] [address] FINGERSTICK GLUCOSE 252 mg/dL H 70-100 Mar 21, 2021 11:43 [facility] FINGERSTICK GLUCOSE Speci men Type: BLOOD AM Comment: Abram rock Nurse Notified Ordering Provid er: GRANTCARD II Report Released Date/Time: Mar 21, 2021 12:08 PM Reporting Lab: [facility] [address] [facility] [address] Performing Lab: [facility] [address] [facility] [address] FINGERSTICK GLUCOSE 227 mg/dL H 70-100 Mar 21, 2021 06:45 AM [facility] ALBUMIN Specim en Type: PLASMA No comment enter ed. Ordering Provid er: LISBET W[place] V Report Released Date/Time: Mar 20, 2021 10:27 AM Reporting Lab: [facility] [address] [facility] [address] Performing Lab: [facility] [address] [facility] [address] ALBUMIN 3.5 g/dL 3.5-5.2 Mar 21, 2021 06:45 [facility] BASIC METABOLIC Specimen Type: PLASMA AM PANEL+MG No comment enter ed. Ordering Provid er: RODO PINTO Report Released Date/Time: Mar 20, 2021 02:43 PM Reporting Lab: [facility] [address] [facility] [address] Performing Lab: [facility] [address] [facility] [address] CREATININE 1.5 mg/dL H 0.7-1.2 UREA NITROGEN 26 mg/dL 8-26 GLUCOSE 207 mg/dL H 74-100 SODIUM 140 mmol/L 136-145 POTASSIUM 4.4 mmol/L 3.5-5.1 CHLORIDE 109 mmol/L H 98-107 CO2 24 mmol/L 22-29 CALCIUM 9.0 mg/dL 8.4-10.2 MAGNESIUM 2.3 mg/dL 1.6-2.6 ANION GAP 7 mmol/L 5-15 ESTIMATED GFR(eGFR) 46 L >60 Mar 21, 2021 06:38 [facility] FINGERSTICK GLUCOSE Speci men Type: BLOOD AM Comment: Abram rock Nurse Notified Ordering Provid er: TEAM,CARD II Report Released Date/Time: Mar 21, 2021 07:23 AM Reporting Lab: [facility] [address] Performing Lab: [facility] [address] FINGERSTICK GLUCOSE 159 mg/dL H 70-100 Mar 20, 2021 08:27 [facility] FINGERSTICK GLUCOSE Speci men Type: BLOOD PM Comment: Abram rock Nurse Notified Ordering Provid er: TEAM,CARD II Report Released Date/Time: Mar 20, 2021 10:52 PM Reporting Lab: [facility] [address] [facility] [address] Performing Lab: [facility] [address] FINGERSTICK GLUCOSE 224 mg/dL H 70-100 Mar 20, 2021 05:06 [facility] FINGERSTICK GLUCOSE Speci men Type: BLOOD PM Comment: Abram rock Nurse Notified Ordering Provid er: GRANT,CARD II Report Released Date/Time: Mar 20, 2021 05:27 PM Reporting Lab: [facility] [address] [facility] [address] Performing Lab: [facility] [address] [facility] [address] FINGERSTICK GLUCOSE 183 mg/dL H 70-100 Mar 20, 2021 08:16 [facility] BASIC METABOLIC Specimen Type: PLASMA AM PANEL+MG No comment enter ed. Ordering Provid er: TUCKER JULIAN Report Released Date/Time: Mar 15, 2021 02:20 PM Reporting Lab: [facility] [address] Performing Lab: [facility] [address] CREATININE 1.6 mg/dL H 0.7-1.2 UREA NITROGEN 31 mg/dL H 8-26 GLUCOSE 216 mg/dL H 74-100 SODIUM 142 mmol/L 136-145 POTASSIUM 4.6 mmol/L 3.5-5.1 CHLORIDE 106 mmol/L 98-107 CO2 25 mmol/L 22-29 CALCIUM 9.3 mg/dL 8.4-10.2 MAGNESIUM 2.2 mg/dL 1.6-2.6 ANION GAP 11 mmol/L 5-15 ESTIMATED GFR(eGFR) 43 L >60 Mar 20, 2021 08:16 [facility] COVID-19 DIAGNOSTIC Speci men Type: NASOPHARYNGEAL AM PANEL (CEPHEID) Comment: Wiley samuel GeneXpert ([id number]) Ordering Provid er: TUCKER JULIAN Report Released Date/Time: Mar 15, 2021 02:20 PM Reporting Lab: [facility] [address] Performing Lab: [facility] [address] COVID-19 (CEPHEID) Not Detected Not Dete cted Mar 05, 2021 09:42 [facility] BASIC METABOLIC Specimen Type: PLASMA AM PANEL+MG No comment enter ed. Ordering Provid er: VICENTE PELAEZ Report Released Date/Time: Feb 19, 2021 01:50 PM Reporting Lab: [facility] [address] Performing Lab: [facility] [address] CREATININE 1.4 mg/dL H 0.7-1.2 UREA NITROGEN 22 mg/dL 8-26 GLUCOSE 241 mg/dL H 74-100 SODIUM 139 mmol/L 136-145 POTASSIUM 4.6 mmol/L 3.5-5.1 CHLORIDE 105 mmol/L 98-107 CO2 24 mmol/L 22-29 CALCIUM 9.1 mg/dL 8.4-10.2 MAGNESIUM 2.1 mg/dL 1.6-2.6 ANION GAP 10 mmol/L 5-15 ESTIMATED GFR(eGFR) 50 L >60 Feb 19, 2021 12:03 PM [facility] AST/SGOT Specim en Type: PLASMA No comment enter ed. Ordering Provid er: SAKSHI CROUCH Report Released Date/Time: January 17, 2021 05:13 PM Reporting Lab: [facility] [address] [facility] [address] Performing Lab: [facility] [address] [facility] [address] AST/SGOT 28 U/L <34 Feb 19, 2021 12:03 PM [facility] ALT/SGPT Specim en Type: PLASMA No comment enter ed. Ordering Provid er: SAKSHI CROUCH Report Released Date/Time: January 17, 2021 05:13 PM Reporting Lab: [facility] [address] [facility] [address] Performing Lab: [facility] [address] [facility] [address] ALT/SGPT 32 U/L <55 Feb 19, 2021 [facility] CREATININE(INCLUDES EGFR) Sp ecimen Type: PLASMA 12:03 PM No comment enter ed. Ordering Provid er: SAKSHI CROUCH Report Released Date/Time: January 17, 2021 05:13 PM Reporting Lab: [facility] [address] [facility] [address] Performing Lab: [facility] [address] [facility] [address] CREATININE 1.4 mg/dL H 0.7-1.2 ESTIMATED GFR(eGFR) 50 L >60 Feb 19, 2021 12:03 PM [facility] POTASSIUM Specim en Type: PLASMA No comment enter ed. Ordering Provid er: SAKSHI CROUCH Report Released Date/Time: January 17, 2021 05:13 PM Reporting Lab: [facility] [address] [facility] [address] Performing Lab: [facility] [address] [facility] [address] POTASSIUM 4.2 mmol/L 3.5-5.1 Feb 19, 2021 12:03 PM [facility] HEMOGLOBIN A1C Specim en Type: BLOOD No comment enter ed. Ordering Provid er: SAKSHI CROUCH Report Released Date/Time: January 17, 2021 05:13 PM Reporting Lab: [facility] [address] [facility] [address] Performing Lab: [facility] [address] [facility] [address] HEMOGLOBIN A1C 10.0 H 4.0-6.0 Social History: Smoking Status (Most current) and Tobacco Use (All prior to encounter date) This section includes the most current, and the historical, smoking and tobacco-related health factors from the [place] facility where the Encounter took place.Current Smoking Status This section includes the most current smoking, or tobacco-related health factor, from the [place] facility where the Encounter took place. Date/Time Current Smoking Status Comment Facility Mar 20, 2021 11:21 AM [facility] TOBACCO USE CURRENT NRT [facility] DECLINE Tobacco Use History This section includes a history of the smoking, or tobacco- related health factors, that were collected on or before the date of the Encounter. The data comes from the [place] facility where the Encounter took place. Date/Time Smoking Status/Tobacco Use Comment [facility] it Nov 15, 2020 10:00 AM VA-TOBACCO DOESNT USE WI 30 MIN [facility] WAKEUP Nov 15, 2020 10:00 AM VA-TOBACCO USE 30 YEARS OR MORE [facility] Nov 15, 2020 10:00 AM VA-TOBACCO USE ADVICE [place] [facility] Nov 15, 2020 10:00 AM VA-TOBACCO USE HEALTH CARE LIAISON NO [facility] Nov 15, 2020 10:00 AM VA-TOBACCO USE MED NO [place] [facility] Nov 15, 2020 10:00 AM VA-TOBACCO USER EVERY DAY [facility] Jun 21, 2019 02:29 PM VA-TOBACCO USE 30 YEARS OR MORE [facility] Jun 21, 2019 02:29 PM VA-TOBACCO USE ADVICE [place] [facility] Jun 21, 2019 02:29 PM VA-TOBACCO USE HEALTH CARE LIAISON NO [facility] Jun 21, 2019 02:29 PM VA-TOBACCO USE MED NO [place] [facility] Jun 21, 2019 02:29 PM VA-TOBACCO USE WI 30 MIN OF WAKEUP [facility] Jun 21, 2019 02:29 PM VA-TOBACCO USER EVERY DAY [facility] Jun 09, 2018 03:48 PM VA-TOBACCO USE 30 YEARS OR MORE [facility] Jun 09, 2018 03:48 PM VA-TOBACCO USE ADVICE [place] [facility] Jun 09, 2018 03:48 PM VA-TOBACCO USE HEALTH CARE LIAISON NO [facility] Jun 09, 2018 03:48 PM VA-TOBACCO USE MED NO [place] [facility] Jun 09, 2018 03:48 PM VA-TOBACCO USE [place] 30 MIN OF WAKEUP [facility] Jun 09, 2018 03:48 PM VA-TOBACCO USER EVERY DAY [facility] Jun 20, 2017 07:53 AM CURRENT TOBACCO USER [facility] Jun 19, 2016 08:41 AM CURRENT TOBACCO USER [facility] Jun 21, 2015 08:15 AM CURRENT TOBACCO USER [facility] Mar 22, 2014 10:03 AM CURRENT TOBACCO USER [facility] Mar 25, 2013 11:01 AM CURRENT TOBACCO USER [facility] Feb 05, 2012 08:55 AM CURRENT TOBACCO USER [facility] January 01, 2011 09:26 AM CURRENT TOBACCO USER [facility] Mar 07, 2010 10:02 AM CURRENT TOBACCO USER [facility] Feb 21, 2009 08:17 AM CURRENT TOBACCO USER [facility] Nov 06, 2007 10:02 AM CURRENT TOBACCO USER [facility] January 02, 2007 10:33 AM CURRENT TOBACCO USER [facility] Advance Directives: All historical and current Section Date Range: From patient's date of to the date document was created. This section includes ALL of a patient's completed or amended [place] Advance and Rescinded Directives. The entries below indicate that a directive exists for the patient, but an actual copy is not included with this document. The data comes from all [place] facilities. Date Advance Directives Provider Source Mar 06, 2005 ADVANCE DIRECTIVE MICHAELGANESH [facility] Encounter Notes: All associated encounter notes This section contains the clinical notes associated to the Encounter. Date/Time Encounter Note(s) Provider Source Mar 20, 2021 10:40 AM CARDIOLOGY DIAGNOSTIC STUDY NOTE: TUCKER JULIAN [facility] LOCAL TITLE: CARDIOLOGY ELECTROPHYSIOLOGY NOTE STANDARD TITLE: CARDIOLOGY DIAGNOSTIC STUDY NOTE DATE OF NOTE: MAR 20, 2021@10:40 ENTRY DATE: MAR 20, 2021@10:41 AUTHOR: TUCKER JULIAN EXP COSIGNER: URGENCY: STATUS: COMPLETED EP Medication Loading Note EP MD: Dr. Hamilton MD Medication: Dofetilide Anticoagulant: Apixaban GIRMA not needed as patient reports no missed dose s of apixaban within last 30 days. Meds to hold: None DCCV: if still in afib following the 5th dose of Dofetilide. HPI: Patient is a 75 year-old male with PMH incl uding DM2, HTN, COPD, tobacco use, CAD s/p VT with angioplasty to RCA in 1993, s/p [...] AF with RVR, although one of the tachycardias appears to be p ossible VT after ATP. Dr. Villasenor recommended dofetilide ad mission for rhythm control of AFib and consideration of PVI down the road. He presents today for elective dofetilide admiss ion. - 03/20/21 labs: Collection time: Mar 20, 2021@08:16 Test Name Result Units Range --------- ------ ----- ----- SODIUM 142 mmol/L 136 - 145 POTASSIUM 4.6 mmol/L 3.5 - 5.1 CHLORIDE 106 mmol/L 98 - 107 CO2 25 mmol/L 22 - 29 ANION GAP 11 mmol/L 5 - 15 GLUCOSE 216H mg/dL 74 - 100 UREA NITROGEN 31H mg/dL 8 - 26 CREATININE 1.6H mg/dL 0.7 - 1.2 ESTIMATED GFR(eGFR) 43L Ref: >=60 CALCIUM 9.3 mg/dL 8.4 - 10.2 MAGNESIUM 2.2 mg/dL 1.6 - 2.6 - 03/20/21 EKG: AFib with PVCs QTc 431, RBBB A/P: - Pt to be admitted to [facility]. - Start Dofetilide 250 mcg every 12 hours - spok e with Dr. Villasenor and given borderline creatinine clearance will start at reduced dose. Also discussed with blue team re: w/u for c auses of elevated creatinine, as prior baseline was ~1.1. Perhaps r/t Entresto vs overdiuresis? Based on creatinine clearance of 61 which is borderline we we start at 250 mcg bid. Plan for a total of 5 monitored inpatient dos es. Obtain EKGs 2 hours after each dose to [...] to sinus rhythm after full Dofetilide load, please perform DC-cardioversion. - Continue apixaban, pt denies any missed doses in last 30 days, so no GIRMA needed - Consider discontinuation of digoxin once sinus rhythm established given his elevated creatinine. - Avoid other QT prolonging medications - Signout given to blue team and bedside RN. IF YOU ARE CONSIDERING A D OSE REDUCTION OR DISCONTINUATION OF DOFETILIDE BASED ON QT PROLONGATION, PLEASE CONTACT EP FOR EKG R [place]. IF LOAD IS SUCCESSFUL, PLE ASE BE SURE PT. GOES HOME WITH A 90 DAYS SUPPLY. EP WILL ARRANGE OUTPATIENT CLINIC FOLLOW-UP WITH L ABS AND EKG. /billy/ TUCKER JULIAN PA-C PHYSICIAN REGULATORY SUBMISSIONS ASSOCIATE Signed: 03/20/2021 10:49
--- OUTSIDE RECORDS SUMMARY | 2022-04-02 16:05 | XMS_ITS | Encounter Summary ---
:1945 Author Organization [facility] Address [address] [place], [place] [id number] Care Team Providers Name Role Phone WILLA [...] MEDICARE MEDICARE PART Jun 25, PART B [id number] Saumya QUINONES PATIENT (WNR) (M) B 2011 78A 0 AVID MEDICARE MEDICARE PART Sep 25, PART A [id number] Saumya QUINONES PATIENT (WNR) (M) A 2009 78A 0 AVID MEDICARE MEDICARE PART Sep 25, PART A [id number] Saumya MICHELE (WNR) (M) A 2009 78A [id number] AVID MEDICARE MEDICARE PART Sep 25, PART B [id number] Saumya MICHELE ATTHOMAS (WNR) (M) B 2009 78A [id number] AVID Selected Encounter This section includes the information on record at [place] for the Encounter. Date/Time Encounter Type Encounter Reason Provider Source Description Mar 20, 2021 INPATIENT CARDIOLOGY ICD-10-CM I48.19 TYSHAWN 03:24 PM CONSULTATION Other persistent R,Y S atrial fibrillation with Provider Comments: Persistent atrial fibrillation ([facility] [id number]) IHE Encounter Template Text not used by [place] Assessments - Encounter Diagnoses This section includes the primary and secondary diagnoses documented for the Encounter. 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 Mar 20, 2021 SECONDARY Chronic [facility] 03:25 PM obstructive R,Y S HCS pulmonary disease, unspecified Mar 20, 2021 SECONDARY Chronic systolic [facility] [place] 03:25 PM (congestive) heart R,Y S HCS failure Mar 20, 2021 SECONDARY Essential [facility] 03:25 PM (primary) R,Y S HCS hypertension Mar 20, 2021 SECONDARY 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 This section includes future appointments and future orders which are active, pending orscheduled.Future Appointments This section includes appointments that were scheduled to occur 6 months from the date of the Encounter, up to a maximum of 20 appointments. The data comes from all [place] treatment facilities. Appointment Date/Time Appointment Type Appointment Facili ty Name Mar 22, 2021 06:26 PM AMBULATORY - MEDICINE [facility] Mar 23, 2021 02:30 PM AMBULATORY - MEDICINE [facility] Mar 23, 2021 03:00 PM AMBULATORY - MEDICINE [facility] Mar 26, 2021 09:00 AM AMBULATORY - NONE [facility] Apr 02, 2021 01:13 PM AMBULATORY - MEDICINE [facility] May 08, 2021 02:00 PM AMBULATORY - NONE [facility] Jun 13, 2021 02:00 PM AMBULATORY - NONE [facility] Jun 18, 2021 12:45 PM AMBULATORY - NONE [facility] Jun 18, 2021 01:30 PM AMBULATORY - MEDICINE [facility] Jun 20, 2021 10:00 AM AMBULATORY - MEDICINE [facility] Jul 11, 2021 01:00 PM AMBULATORY - NONE [facility] Jul 26, 2021 09:00 AM AMBULATORY - MEDICINE [facility] Jul 26, 2021 10:30 AM AMBULATORY - NONE [facility] Aug 03, 2021 10:46 AM AMBULATORY - MEDICINE [facility] Aug 08, 2021 07:00 AM AMBULATORY - NONE [facility] Aug 10, 2021 10:30 AM AMBULATORY - NONE [facility] Sep 14, 2021 09:00 AM AMBULATORY - NONE [facility] Lab Results: +/- 30 days of the encounter This section includes the Chemistry and Hematology Lab Results on record with [place] for the patient. Radiology Reports and Pathology [...] 2021 09:33 AM Reporting Lab: [facility] [address] Performing Lab: [facility] [address] POTASSIUM 4.6 mmol/L 3.5-5.1 Mar 23, 2021 06:48 [facility] BASIC METABOLIC Specimen Type: PLASMA AM PANEL+MG Comment: Cancel lation Called to: Dora Mae MSA 03/23/2021 @ 0930 by AEK. 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 Ordering Provid er: RODO PINTO Report Released Date/Time: Mar 22, 2021 10:19 AM Reporting Lab: [facility] [address] [facility] [address] Performing Lab: [facility] [address] CREATININE 1.3 mg/dL H 0.7-1.2 UREA NITROGEN [...] [facility] [address] [facility] [address] Performing Lab: [facility] [address] [facility] [address] MAGNESIUM 2.2 mg/dL 1.6-2.6 Mar 23, 2021 06:13 [facility] FINGERSTICK GLUCOSE Speci men Type: BLOOD AM Comment: Abram Welch Notified Ordering Provid er: GRANTCARD II Report Released Date/Time: Mar 23, 2021 07:07 AM Reporting Lab: [facility] [address] [facility] [address] Performing Lab: [facility] [address] [facility] [address] FINGERSTICK GLUCOSE 168 mg/dL H 70-100 Mar 22, 2021 08:30 [facility] [place] GLUCOSE Speci men Type: BLOOD PM Comment: VENOUS SAMPLE Ordering Provid er: DARLYN BURNS II Report Released Date/Time: Mar 23, 2021 08:23 AM Reporting Lab: [facility] [address] [facility] [address] Performing Lab: [facility] [address] [facility] [address] FINGERSTICK GLUCOSE 240 mg/dL H 70-100 Mar 22, 2021 04:28 [facility] FINGERSTICK GLUCOSE Speci men Type: BLOOD PM Comment: Abram Welch Notified Ordering Provid er: GRANTCARD II Report Released Date/Time: Mar 22, 2021 04:42 PM Reporting Lab: [facility] [address] [facility] [address] Performing Lab: [facility] [address] [facility] [address] FINGERSTICK GLUCOSE 197 mg/dL H 70-100 Mar 22, 2021 11:28 [facility] FINGERSTICK GLUCOSE Speci men Type: BLOOD AM Comment: Abram Welch Notified Ordering Provid er: GRANTCARD II Report Released Date/Time: Mar 22, 2021 12:14 PM Reporting Lab: [facility] [address] [facility] [address] Performing Lab: [facility] [address] [facility] [address] FINGERSTICK GLUCOSE 225 mg/dL H 70-100 Mar 22, 2021 06:13 [facility] F[place]ERSTICK GLUCOSE Speci men Type: BLOOD AM Comment: Abram rock Nurse Notified Ordering Provid er: TEAMCARD II Report Released Date/Time: Mar 22, 2021 12:13 PM Reporting Lab: [facility] [address] [facility] [address] Performing Lab: [facility] [address] [facility] [address] FINGERSTICK GLUCOSE 155 mg/dL H 70-100 Mar 21, 2021 07:36 [facility] FINGERSTICK GLUCOSE Speci men Type: BLOOD PM Comment: Abram rock Nurse Notified Ordering Provid er: DARLYN BURNS II Report Released Date/Time: Mar 21, 2021 08:53 PM Reporting Lab: [facility] [address] [facility] [address] Performing Lab: [facility] [address] [facility] [address] FINGERSTICK GLUCOSE 214 mg/dL H 70-100 Mar 21, 2021 04:00 [facility] FINGERSTICK GLUCOSE Speci men Type: BLOOD PM Comment: Abram rock Nurse Notified Ordering Provid er: DARLYN BURNS II Report Released Date/Time: Mar 21, 2021 04:27 PM Reporting Lab: [facility] [address] [facility] [address] Performing Lab: [facility] [address] [facility] [address] FINGERSTICK GLUCOSE 252 mg/dL H 70-100 Mar 21, 2021 11:43 [facility] FINGERSTICK GLUCOSE Speci men Type: BLOOD AM Comment: Abram rock Nurse Notified Ordering Provid er: GRANTCARD II Report Released Date/Time: Mar 21, 2021 12:08 PM Reporting Lab: [facility] [address] [facility] [address] Performing Lab: [facility] [address] [facility] [address] FINGERSTICK GLUCOSE 227 mg/dL H 70-100 Mar 21, 2021 06:45 AM [facility] ALBUMIN Specim en Type: PLASMA No comment enter ed. Ordering Provid er: LISBET W[place] V Report Released Date/Time: Mar 20, 2021 10:27 AM Reporting Lab: [facility] [address] [facility] [address] Performing Lab: [facility] [address] [facility] [address] ALBUMIN 3.5 g/dL 3.5-5.2 Mar 21, 2021 06:45 [facility] BASIC METABOLIC Specimen Type: PLASMA AM PANEL+MG No comment enter ed. Ordering Provid er: RODO PINTO Report Released Date/Time: Mar 20, 2021 02:43 PM Reporting Lab: [facility] [address] [facility] [address] Performing Lab: [facility] [address] [facility] [address] CREATININE 1.5 mg/dL H 0.7-1.2 UREA NITROGEN [...] Mar 21, 2021 07:23 AM Reporting Lab: [facility] [address] [facility] [address] Performing Lab: [facility] [address] [facility] [address] FINGERSTICK GLUCOSE 159 mg/dL H 70-100 Mar 20, 2021 08:27 [facility] FINGERSTICK GLUCOSE Speci men Type: BLOOD PM Comment: Abram rock Nurse Notified Ordering Provid er: GRANT,CARD II Report Released Date/Time: Mar 20, 2021 10:52 PM Reporting Lab: [facility] [address] [facility] [address] Performing Lab: [facility] [address] [facility] [address] FINGERSTICK GLUCOSE 224 mg/dL H 70-100 Mar 20, 2021 05:06 [facility] FINGERSTICK GLUCOSE Speci men Type: BLOOD PM Comment: Abram rock Nurse Notified Ordering Provid er: DARLYN BURNS II Report Released Date/Time: Mar 20, 2021 05:27 PM Reporting Lab: [facility] [address] [facility] [address] Performing Lab: [facility] [address] FINGERSTICK GLUCOSE 183 mg/dL H 70-100 Mar 20, 2021 08:16 [facility] BASIC METABOLIC Specimen Type: PLASMA AM PANEL+MG No comment enter ed. Ordering Provid er: TUCKER JULIAN Report Released Date/Time: Mar 15, 2021 02:20 PM Reporting Lab: [facility] [address] Performing Lab: [facility] [address] CREATININE 1.6 mg/dL H 0.7-1.2 UREA NITROGEN [...] Mar 15, 2021 02:20 PM Reporting Lab: [facility] [address] [facility] [address] Performing Lab: [facility] [address] [facility] [address] COVID-19 (CEPHEID) Not Detected Not Dete cted Mar 05, 2021 09:42 [facility] BASIC METABOLIC Specimen Type: PLASMA AM PANEL+MG No comment enter ed. Ordering Provid er: VICENTE PELAEZ Report Released Date/Time: Feb 19, 2021 01:50 PM Reporting Lab: [facility] [address] Performing Lab: [facility] [address] [facility] [address] CREATININE 1.4 mg/dL H 0.7-1.2 UREA NITROGEN 22 mg/dL 8-26 GLUCOSE 241 mg/dL H 74-100 SODIUM 139 mmol/L 136-145 POTASSIUM 4.6 mmol/L 3.5-5.1 CHLORIDE 105 mmol/L 98-107 CO2 24 mmol/L 22-29 CALCIUM 9.1 mg/dL 8.4-10.2 MAGNESIUM 2.1 mg/dL 1.6-2.6 ANION GAP 10 mmol/L 5-15 ESTIMATED GFR(eGFR) 50 L >60 Feb 19, 2021 12:03 PM [facility] AST/SGOT Specim en Type: PLASMA No comment enter ed. Ordering Provid er: SAKSHI CROUCH Report Released Date/Time: January 17, 2021 05:13 PM Reporting Lab: [facility] [address] [facility] [address] Performing Lab: [facility] [address] [facility] [address] AST/SGOT 28 U/L <34 Feb 19, 2021 12:03 PM [facility] ALT/SGPT Specim en Type: PLASMA No comment enter ed. Ordering Provid er: SAKSHI CROUCH Report Released Date/Time: January 17, 2021 05:13 PM Reporting Lab: [facility] [address] [facility] [address] Performing Lab: [facility] [address] [facility] [address] ALT/SGPT 32 U/L <55 Feb 19, 2021 [facility] CREATININE(INCLUDES EGFR) Sp ecimen Type: PLASMA 12:03 PM No comment enter ed. Ordering Provid er: SAKSHI CROUCH Report Released Date/Time: January 17, 2021 05:13 PM Reporting Lab: [facility] [address] [facility] [address] Performing Lab: [facility] [address] [facility] [address] CREATININE 1.4 mg/dL H 0.7-1.2 ESTIMATED GFR(eGFR) 50 L >60 Feb 19, 2021 12:03 PM [facility] POTASSIUM Specim en Type: PLASMA No comment enter ed. Ordering Provid er: SAKSHI CROUCH Report Released Date/Time: January 17, 2021 05:13 PM Reporting Lab: [facility] [address] [facility] [address] Performing Lab: [facility] [address] [facility] [address] POTASSIUM 4.2 mmol/L 3.5-5.1 Feb 19, 2021 12:03 PM [facility] HEMOGLOBIN A1C Specim en Type: BLOOD No comment enter ed. Ordering Provid er: SAKSHI CROUCH Report Released Date/Time: January 17, 2021 05:13 PM Reporting Lab: [facility] [address] [facility] [address] Performing Lab: [facility] [address] [facility] [address] HEMOGLOBIN A1C 10.0 H 4.0-6.0 Social History: Smoking Status (Most current) and Tobacco Use (All prior to encounter date) This section includes the most current, and the historical, smoking and tobacco-related health factors from the [place] facility where the Encounter took place.Current Smoking Status This section includes the most current smoking, or tobacco-related health factor, from the [place] facility where the Encounter took place. Date/Time Current Smoking Status Comment Facility Mar 20, 2021 11:21 AM [facility] TOBACCO USE CURRENT NRT [facility] DECLINE Tobacco Use History This section includes a history of the smoking, or tobacco- related health factors, that were collected on or before the date of the Encounter. The data comes from the [place] facility where the Encounter took place. Date/Time Smoking Status/Tobacco Use Comment Nicola matta Nov 15, 2020 10:00 AM VA-TOBACCO DOESNT USE WI 30 MIN [facility] WAKEUP Nov 15, 2020 10:00 AM VA-TOBACCO USE 30 YEARS OR MORE [facility] Nov 15, 2020 10:00 AM VA-TOBACCO USE ADVICE [facility] Nov 15, 2020 10:00 AM VA-TOBACCO USE VALIDATION ARCHITECT NO [facility] Nov 15, 2020 10:00 AM VA-TOBACCO USE MED NO [place] [facility] [facility] Nov 15, 2020 10:00 AM VA-TOBACCO USER EVERY DAY [facility] Jun 21, 2019 02:29 PM VA-TOBACCO USE 30 YEARS OR MORE [facility] Jun 21, 2019 02:29 PM VA-TOBACCO USE ADVICE [place] [facility] [facility] Jun 21, 2019 02:29 PM VA-TOBACCO USE VALIDATION ARCHITECT NO [facility] Jun 21, 2019 02:29 PM VA-TOBACCO USE MED NO [place] [facility] Jun 21, 2019 02:29 PM VA-TOBACCO USE WI 30 MIN OF WAKEUP [facility] Jun 21, 2019 02:29 PM VA-TOBACCO USER EVERY DAY [facility] Jun 09, 2018 03:48 PM VA-TOBACCO USE 30 YEARS OR MORE [facility] Jun 09, 2018 03:48 PM VA-TOBACCO USE ADVICE [facility] Jun 09, 2018 03:48 PM VA-TOBACCO USE VALIDATION ARCHITECT NO [facility] Jun 09, 2018 03:48 PM VA-TOBACCO USE MED NO [facility] Jun 09, 2018 03:48 PM VA-TOBACCO USE [place] 30 MIN OF WAKEUP [facility] Jun 09, 2018 03:48 PM VA-TOBACCO USER EVERY DAY [facility] Jun 20, 2017 07:53 AM CURRENT TOBACCO USER [facility] Jun 19, 2016 08:41 AM CURRENT TOBACCO USER [facility] Jun 21, 2015 08:15 AM CURRENT TOBACCO USER [facility] Mar 22, 2014 10:03 AM CURRENT TOBACCO USER [facility] Mar 25, 2013 11:01 AM CURRENT TOBACCO USER [facility] Feb 05, 2012 08:55 AM CURRENT TOBACCO USER [facility] January 01, 2011 09:26 AM CURRENT TOBACCO USER [facility] Mar 07, 2010 10:02 AM CURRENT TOBACCO USER [facility] Feb 21, 2009 08:17 AM CURRENT TOBACCO USER [facility] Nov 06, 2007 10:02 AM CURRENT TOBACCO USER [facility] January 02, 2007 10:33 AM CURRENT TOBACCO USER [facility] Advance Directives: All historical and current Section Date Range: From patient's date of to the date document was created. This section includes ALL of a patient's completed or amended [place] Advance and Rescinded Directives. The entries below indicate that a directive exists for the patient, but an actual copy is not included with this document. The data comes from all [place] facilities. Date Advance Directives Provider Source Mar 06, 2005 ADVANCE DIRECTIVE GANESH RODRIGUEZ [facility]
--- OUTSIDE RECORDS SUMMARY | 2022-04-02 16:05 | XMS_ITS | Encounter Summary ---
:[address] [facility] Address [address] [place] [address] Care Team Providers Name Role Phone SAKSHI [...] MEDICARE MEDICARE PART Jun 25, PART B [id number] Saumya QUINONES PATIENT (WNR) (M) B 2011 78A 0 AVID MEDICARE MEDICARE PART Sep 25, PART A [id number] Saumya QUINONES PATIENT (WNR) (M) A 2009 78A 0 AVID MEDICARE MEDICARE PART Sep 25, PART A [id number] Saumya MICHELE ATTHOMAS (WNR) (M) A 2009 [id number] [id number] AVID MEDICARE MEDICARE PART Sep 25, PART B [id number] Saumya MICHELE ATIENT (WNR) (M) B 2009 [id number] AVID Selected Encounter This section includes the information on record at [place] for the Encounter. Date/Time Encounter Type Encounter Description Reason Provider Source Mar 22, 2021 01:00 Inpatient Visit ADMIN PAT ACTIVTIES SYS IRVING,DANNY-RICHARDK AM (MASNONCT) IHE Encounter Template Text not used by [facility] Plan of Treatment: Future Appointments (+ 6 months) and Future Tests (+/- 45 days) The Plan of Treatment section includes future care activities for the [facility] [place] [facility] This section includes future appointments and future orders which are active, pending orscheduled.Future Appointments This section includes appointments that were scheduled to occur 6 months from the date of the Encounter, up to a maximum of 20 appointments. The data comes from all [place] treatment facilities. Appointment Date/Time Appointment Type Appointment Facili ty Name Mar 23, 2021 02:30 PM AMBULATORY - MEDICINE [facility] Mar 23, 2021 03:00 PM AMBULATORY - MEDICINE [facility] Mar 26, 2021 09:00 AM AMBULATORY - NONE [facility] Apr 02, 2021 01:13 PM AMBULATORY - [facility]ICINE [facility] May 08, 2021 02:00 PM AMBULATORY - NONE [facility] Jun 13, 2021 02:00 PM AMBULATORY - NONE [facility] Jun 18, 2021 12:45 PM AMBULATORY - NONE [facility] Jun 18, 2021 01:30 PM AMBULATORY - MEDICINE [facility] Jun 20, 2021 10:00 AM AMBULATORY - MEDICINE [facility] Jul 11, 2021 01:00 PM AMBULATORY - NONE [facility] Jul 26, 2021 09:00 AM AMBULATORY - MEDICINE [facility] Jul 26, 2021 10:30 AM AMBULATORY - NONE [facility] Aug 03, 2021 10:46 AM AMBULATORY - MEDICINE [facility] Aug 08, 2021 07:00 AM AMBULATORY - NONE [facility] Aug 10, 2021 10:30 AM AMBULATORY - NONE [facility] Sep 14, 2021 09:00 AM AMBULATORY - NONE [facility] Sep 21, 2021 09:45 AM AMBULATORY - MEDICINE [facility] Sep 21, 2021 10:00 AM AMBULATORY - MEDICINE [facility] Sep 21, 2021 10:30 AM AMBULATORY - MEDICINE [facility] Sep 21, 2021 11:00 AM AMBULATORY - MEDICINE [facility] Lab Results: +/- 30 days of the encounter This section includes the Chemistry and Hematology Lab Results on record with [place] for the patient. Radiology Reports and Pathology [...] Reporting Lab: [facility] [address] [facility] [address] Performing Lab: [facility] [address] [facility] [address] POTASSIUM 4.6 mmol/L 3.5-5.1 Mar 23, 2021 06:48 [facility] BASIC METABOLIC Specimen Type: PLASMA AM PANEL+MG Comment: Cancel lation Called to: Dora Mae MSA 03/23/2021 @ 0930 by AEK. 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 Ordering Provid er: RODO PINTO Report Released Date/Time: Mar 22, 2021 10:19 AM Reporting Lab: [facility] [address] [facility] [address] Performing Lab: [facility] [address] [facility] [address] CREATININE 1.3 mg/dL H 0.7-1.2 UREA NITROGEN [...] Reporting Lab: [facility] [address] [facility] [address] Performing Lab: [facility] [address] [facility] [address] MAGNESIUM 2.2 mg/dL 1.6-2.6 Mar 23, 2021 06:13 [facility] [place] GLUCOSE Speci men Type: BLOOD AM Comment: [place] Nurse Notified Ordering Provid er: GRANT,CARD II Report Released Date/Time: Mar 23, 2021 07:07 AM Reporting Lab: [facility] [address] [address] Performing Lab: [facility] [address] [facility] [address] FINGERSTICK GLUCOSE 168 mg/dL H 70-100 Mar 22, 2021 08:30 [facility] [place] GLUCOSE Speci men Type: BLOOD PM Comment: VENOUS SAMPLE Ordering Provid er: GRANTCARD II Report Released Date/Time: Mar 23, 2021 08:23 AM Reporting Lab: [facility] [address] [facility] [address] Performing Lab: [facility] [address] [facility] [address] FINGERSTICK GLUCOSE 240 mg/dL H 70-100 Mar 22, 2021 04:28 [facility] [place] GLUCOSE Speci men Type: BLOOD PM Comment: Abram Welch Notified Ordering Provid er: GRANTCARD II Report Released Date/Time: Mar 22, 2021 04:42 PM Reporting Lab: [facility] [address] [facility] [address] Performing Lab: [facility] [address] [facility] [address] FINGERSTICK GLUCOSE 197 mg/dL H 70-100 Mar 22, 2021 11:28 [facility] [place] GLUCOSE Speci men Type: BLOOD AM Comment: Abram Welch Notified Ordering Provid er: DARLYN BURNS II Report Released Date/Time: Mar 22, 2021 12:14 PM Reporting Lab: [facility] [address] [facility] [address] Performing Lab: [facility] [address] [facility] [address] FINGERSTICK GLUCOSE 225 mg/dL H 70-100 Mar 22, 2021 06:13 [facility] [place] GLUCOSE Speci men Type: BLOOD AM Comment: [place] Nurse Notified Ordering Provid er: GRANTCARD II Report Released Date/Time: Mar 22, 2021 12:13 PM Reporting Lab: [facility] [address] [facility] [address] Performing Lab: [facility] [address] [facility] [address] FINGERSTICK GLUCOSE 155 mg/dL H 70-100 Mar 21, 2021 07:36 [facility] [place] GLUCOSE Speci men Type: BLOOD PM Comment: [place] Nurse Notified Ordering Provid er: GRANTCARD II Report Released Date/Time: Mar 21, 2021 08:53 PM Reporting Lab: [facility] [address] [facility] [address] Performing Lab: [facility] [address] [facility] [address] FINGERSTICK GLUCOSE 214 mg/dL H 70-100 Mar 21, 2021 04:00 [facility] [place] GLUCOSE Speci men Type: BLOOD PM Comment: [place] Nurse Notified Ordering Provid er: DARLYN BURNS II Report Released Date/Time: Mar 21, 2021 04:27 PM Reporting Lab: [facility] [address] [facility] [address] Performing Lab: [facility] [address] [facility] [address] FINGERSTICK GLUCOSE 252 mg/dL H 70-100 Mar 21, 2021 11:43 [facility] F[place] GLUCOSE Speci men Type: BLOOD AM Comment: [place] Nurse Notified Ordering Provid er: DARLYN BURNS II Report Released Date/Time: Mar 21, 2021 12:08 PM Reporting Lab: [facility] [address] [facility] [address] Performing Lab: [facility] [address] [facility] [address] FINGERSTICK GLUCOSE 227 mg/dL H 70-100 Mar 21, 2021 06:45 AM [facility] ALBUMIN Specim en Type: PLASMA No comment enter ed. Ordering Provid er: LISBET WASHINGTON V Report Released Date/Time: Mar 20, 2021 10:27 AM Reporting Lab: [facility] [address] [facility] [address] Performing Lab: [facility] [address] [facility] [address] ALBUMIN 3.5 g/dL 3.5-5.2 Mar 21, 2021 06:45 [facility] BASIC METABOLIC Specimen Type: PLASMA AM PANEL+MG No comment enter ed. Ordering Provid er: RODO PINTO Report Released Date/Time: Mar 20, 2021 02:43 PM Reporting Lab: [facility] [address] [facility] [address] Performing Lab: [facility] [address] [facility] [address] CREATININE 1.5 mg/dL H 0.7-1.2 UREA NITROGEN [...] Reporting Lab: [facility] [address] [facility] [address] Performing Lab: [facility] [address] [address] FINGERSTICK GLUCOSE 159 mg/dL H 70-100 Mar 20, 2021 08:27 [facility] [place] GLUCOSE Speci men Type: BLOOD PM Comment: [place] Nurse Notified Ordering Provid er: TEAM,CARD II Report Released Date/Time: Mar 20, 2021 10:52 PM Reporting Lab: [facility] [address] [facility] [address] Performing Lab: [facility] [address] [facility] [address] FINGERSTICK GLUCOSE 224 mg/dL H 70-100 Mar 20, 2021 05:06 [facility] [place] GLUCOSE Speci men Type: BLOOD PM Comment: [place] Nurse Notified Ordering Provid er: TEAM,CARD II Report Released Date/Time: Mar 20, 2021 05:27 PM Reporting Lab: [facility] [address] [facility] [address] Performing Lab: [facility] [address] [facility] [address] FINGER[place]ICK GLUCOSE 183 mg/dL H 70-100 Mar 20, 2021 08:16 [facility] BASIC METABOLIC Specimen Type: PLASMA AM PANEL+MG No comment enter ed. Ordering Provid er: TUCKER JULIAN Report Released Date/Time: Mar 15, 2021 02:20 PM Reporting Lab: [facility] [address] [facility] [address] Performing Lab: [facility] [address] [facility] [address] CREATININE 1.6 mg/dL H 0.7-1.2 UREA NITROGEN [...] Reporting Lab: [facility] [address] Performing Lab: [facility] [address] COVID-19 (CEPHEID) Not Detected Not Dete cted Mar 05, 2021 09:42 [facility] BASIC METABOLIC Specimen Type: PLASMA AM PANEL+MG No comment enter ed. Ordering Provid er: VICENTE PELAEZ Report Released Date/Time: Feb 19, 2021 01:50 PM Reporting Lab: [facility] [address] Performing Lab: [facility] [address] CREATININE 1.4 mg/dL H 0.7-1.2 UREA NITROGEN [...] % 0 [place] 2020 08:55 /min mm[Hg] [facility] Social History: Smoking Status (Most current) and Tobacco Use (All prior to encounter date) This section includes the most current, and the historical, smoking and tobacco-related health factors from the [place] facility where the Encounter took place.Current Smoking Status This section includes the most current smoking, or tobacco-related health factor, from the [place] facility where the Encounter took place. Date/Time Current Smoking Status Comment Facility Mar 20, 2021 11:21 AM [facility] TOBACCO USE CURRENT NRT [facility] DECLINE Tobacco Use History This section includes a history of the smoking, or tobacco- related health factors, that were collected on or before the date of the Encounter. The data comes from the [place] facility where the Encounter took place. Date/Time Smoking Status/Tobacco Use Comment [facility] it Nov 15, 2020 10:00 AM VA-TOBACCO DOESNT USE WI 30 MIN [facility] WAKEUP Nov 15, 2020 10:00 AM VA-TOBACCO USE 30 YEARS OR MORE [facility] Nov 15, 2020 10:00 AM [facility] Nov 15, 2020 10:00 AM VA-TOBACCO USE SOCIAL INSURANCE ADVISER NO [facility] Nov 15, 2020 10:00 AM [facility] Nov 15, 2020 10:00 AM VA-TOBACCO USER EVERY DAY [facility] Jun 21, 2019 02:29 PM VA-TOBACCO USE 30 YEARS OR MORE [facility] Jun 21, 2019 02:29 PM VA-TOBACCO USE ADVICE [place] [facility] Jun 21, 2019 02:29 PM VA-TOBACCO USE SOCIAL INSURANCE ADVISER NO [facility] Jun 21, 2019 02:29 PM VA-TOBACCO USE MED NO [place] [facility] Jun 21, 2019 02:29 PM VA-TOBACCO USE [place] 30 MIN OF WAKEUP [facility] Jun 21, 2019 02:29 PM VA-TOBACCO USER EVERY DAY [facility] Jun 09, 2018 03:48 PM VA-TOBACCO USE 30 YEARS OR MORE [facility] Jun 09, 2018 03:48 PM [facility] Jun 09, 2018 03:48 PM VA-TOBACCO USE SOCIAL INSURANCE ADVISER NO [facility] Jun 09, 2018 03:48 PM VA-TOBACCO USE MED NO [place] [facility] Jun 09, 2018 03:48 PM VA-TOBACCO USE [place] 30 MIN OF WAKEUP [facility] Jun 09, 2018 03:48 PM VA-TOBACCO USER EVERY DAY [facility] Jun 20, 2017 07:53 AM CURRENT TOBACCO USER [facility] Jun 19, 2016 08:41 AM CURRENT TOBACCO USER [facility] Jun 21, 2015 08:15 AM CURRENT TOBACCO USER [facility] Mar 22, 2014 10:03 AM CURRENT TOBACCO USER [facility] Mar 25, 2013 11:01 AM CURRENT TOBACCO USER [facility] Feb 05, 2012 08:55 AM CURRENT TOBACCO USER [facility] January 01, 2011 09:26 AM CURRENT TOBACCO USER [facility] Mar 07, 2010 10:02 AM CURRENT TOBACCO USER [facility] Feb 21, 2009 08:17 AM CURRENT TOBACCO USER [facility] Nov 06, 2007 10:02 AM CURRENT TOBACCO USER [facility] January 02, 2007 10:33 AM CURRENT TOBACCO USER [facility] Advance Directives: All historical and current Section Date Range: From patient's date of to the date document was created. This section includes ALL of a patient's completed or amended [place] Advance and Rescinded Directives. The entries below indicate that a directive exists for the patient, but an actual copy is not included with this document. The data comes from all [place] facilities. Date Advance Directives Provider Source Mar 06, 2005 ADVANCE DIRECTIVE MICHAELGANESH [facility] Encounter Notes: All associated encounter notes This section contains the clinical notes associated to the Encounter. Date/Time Encounter Note(s) Provider Source Mar 22, 2021 01:00 AM CRITICAL CARE UNIT NOTE: FLORENCIO RIOS [facility] LOCAL TITLE: ICCA INPATIENT FLOWSHEET STANDARD TITLE: CRITICAL CARE UNIT NOTE DATE OF NOTE: MAR 22, 2021@01:00 ENTRY DATE: MAR 23, 2021@14:31:54 AUTHOR: FLORENCIO RIOS EXP COSIGNER: URGENCY: STATUS: COMPLETED This is a place tapia only. Please see VISTA Im aging to view document. /billy/ FLORENCIO SYSTEM ICU DOCUMENT IMPORT Signed: 03/23/2021 14:31 Mar 22, 2021 01:00 AM CRITICAL CARE UNIT NOTE: FLORENCIO RIOS [facility] LOCAL TITLE: ICCA RESPIRATORY THERAPY FLOWSHEET STANDARD TITLE: CRITICAL CARE UNIT NOTE DATE OF NOTE: MAR 22, 2021@01:00 ENTRY DATE: MAR 23, 2021@15:02:47 AUTHOR: SYSTEM,FLORENCIO EXP COSIGNER: URGENCY: STATUS: COMPLETED This is a place tapia only. Please see VISTA Im aging to view document. /es/ [facility] SYSTEM ICU DOCUMENT IMPORT Signed: 03/23/2021 15:02
--- OUTSIDE RECORDS SUMMARY | 2022-04-02 16:05 | XMS_ITS ---
DAILY HOSPITALIZATION DATA [facility] HCS Encounter Summary Created on:March 21, 2021 Patient:PAUL MICHELE Sex:Male :1945 Author Organization Department [facility] Address [address] [place] [id number] Care Team Providers Name Role Phone WILLA [...] MEDICARE MEDICARE PART Jun 25, PART B [id number] Saumya QUINONES PATIENT (WNR) (M) B 2011 78A 0 AVID MEDICARE MEDICARE PART Sep 25, PART A [id number] Saumya QUINONES PATIENT (WNR) (M) A 2009 78A 0 AVID MEDICARE MEDICARE PART Sep 25, PART A [id number] Saumya MICHELE ATTHOMAS (WNR) (M) A 2009 [id number] [id number] AVID MEDICARE MEDICARE PART Sep 25, PART B [id number] Saumya MICHELE ATIENT (WNR) (M) B 2009 [id number] [id number] AVID Selected Encounter This section includes the information on record at [place] for the Encounter. Date/Time Encounter Type Encounter Description Reason Provider Source Mar 21, 2021 10:12 Inpatient Visit DAILY HOSPITALIZATION B KORI GONZALEZ AM DATA IHE Encounter Template Text not used by [place] Plan of Treatment: Future Appointments (+ 6 months) and Future Tests (+/- 45 days) The Plan of Treatment section includes [facility] [place] [facility] This section includes future appointments and future orders which are active, pending orscheduled.Future Appointments This section includes appointments that were scheduled to occur 6 months from the date of the Encounter, up to a maximum of 20 appointments. The data comes from all [place] treatment facilities. Appointment Date/Time Appointment Type Appointment Facili ty Name Mar 22, 2021 06:26 PM AMBULATORY - MEDICINE [facility] Mar 23, 2021 02:30 PM AMBULATORY - MEDICINE [facility] Mar 23, 2021 03:00 PM AMBULATORY - MEDICINE [facility] Mar 26, 2021 09:00 AM AMBULATORY - NONE [facility] Apr 02, 2021 01:13 PM AMBULATORY - MEDICINE [facility] May 08, 2021 02:00 PM AMBULATORY - NONE [facility] Jun 13, 2021 02:00 PM AMBULATORY - NONE [facility] Jun 18, 2021 12:45 PM AMBULATORY - NONE [facility] Jun 18, 2021 01:30 PM AMBULATORY - MEDICINE [facility] Jun 20, 2021 10:00 AM AMBULATORY - MEDICINE [facility] Jul 11, 2021 01:00 PM AMBULATORY - NONE [facility] Jul 26, 2021 09:00 AM AMBULATORY - MEDICINE [facility] Jul 26, 2021 10:30 AM AMBULATORY - NONE [facility] Aug 03, 2021 10:46 AM AMBULATORY - MEDICINE [facility] Aug 08, 2021 07:00 AM AMBULATORY - NONE [facility] Aug 10, 2021 10:30 AM AMBULATORY - NONE [facility] Sep 14, 2021 09:00 AM AMBULATORY - NONE [facility] Sep 21, 2021 09:45 AM AMBULATORY - MEDICINE [facility] Sep 21, 2021 10:00 AM AMBULATORY - MEDICINE [facility] Sep 21, 2021 10:30 AM AMBULATORY - MEDICINE [facility] Lab Results: +/- 30 days [...] Range Comment Mar 23, 2021 09:57 AM [facility] POTASSIUM Specim en Type: PLASMA No comment enter ed. Ordering Provid er: RODO PINTO Report Released Date/Time: Mar 23, 2021 09:33 AM Reporting Lab: [facility] [address] [facility] [address] Performing Lab: [facility] [address] [facility] [address] POTASSIUM 4.6 mmol/L 3.5-5.1 Mar 23, 2021 06:48 [facility] BASIC METABOLIC Specimen Type: PLASMA AM PANEL+MG Comment: Cancel lation Called to: Dora Mae MSA 03/23/2021 @ 0930 by AEK. 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 Ordering Provid er: RODO PINTO Report Released Date/Time: Mar 22, 2021 10:19 AM Reporting Lab: [facility] [address] [facility] [address] Performing Lab: [facility] [address] [facility] [address] CREATININE 1.3 mg/dL H 0.7-1.2 UREA NITROGEN 25 mg/dL 8-26 GLUCOSE 170 mg/dL H 74-100 SODIUM 139 mmol/L 136-145 POTASSIUM canc mmol/L 3.5-5.1 CHLORIDE 109 mmol/L H 98-107 CO2 23 mmol/L 22-29 CALCIUM 9.0 mg/dL 8.4-10.2 MAGNESIUM 2.2 mg/dL 1.6-2.6 ANION GAP 7 mmol/L 5-15 ESTIMATED GFR(eGFR) 54 L >60 Mar 23, 2021 06:48 AM [facility] MAGNESIUM Specim en Type: PLASMA No comment enter ed. Ordering Provid er: RODO PINTO Report Released Date/Time: Mar 22, 2021 10:19 AM Reporting Lab: [facility] [address] [facility] [address] Performing Lab: [facility] [address] [facility] [address] MAGNESIUM 2.2 mg/dL 1.6-2.6 Mar 23, 2021 06:13 [facility] FINGERSTICK GLUCOSE Speci men Type: BLOOD AM Comment: [place]am rock Nurse Notified Ordering Provid er: TEAM,CARD II Report Released Date/Time: Mar 23, 2021 07:07 AM Reporting Lab: [facility] [address] [facility] [address] Performing Lab: [facility] [address] [facility] [address] F[place]ER[place]ICK GLUCOSE 168 mg/dL H 70-100 Mar 22, 2021 08:30 [facility] [place] GLUCOSE Speci men Type: BLOOD PM Comment: VENOUS SAMPLE Ordering Provid er: GRANTCARD II Report Released Date/Time: Mar 23, 2021 08:23 AM Reporting Lab: [facility] [address] [facility] [address] Performing Lab: [facility] [address] [facility] [address] [place] GLUCOSE 240 mg/dL H 70-100 Mar 22, 2021 04:28 [facility] [place] GLUCOSE Speci men Type: BLOOD PM Comment: Abram Welch Notified Ordering Provid er: GRANTCARD II Report Released Date/Time: Mar 22, 2021 04:42 PM Reporting Lab: [facility] [address] [facility] [address] Performing Lab: [facility] [address] [facility] [address] [place] GLUCOSE 197 mg/dL H 70-100 Mar 22, 2021 11:28 [facility] [place] GLUCOSE Speci men Type: BLOOD AM Comment: [place] Nurse Notified Ordering Provid er: GRANTCARD II Report Released Date/Time: Mar 22, 2021 12:14 PM Reporting Lab: [facility] [address] [facility] [address] Performing Lab: [facility] [address] [facility] [address] [place] GLUCOSE 225 mg/dL H 70-100 Mar 22, 2021 06:13 [facility] [place] GLUCOSE Speci men Type: BLOOD AM Comment: [place] Nurse Notified Ordering Provid er: GRANTCARD II Report Released Date/Time: Mar 22, 2021 12:13 PM Reporting Lab: [facility] [address] [facility] [address] Performing Lab: [facility] [address] [facility] [address] [place] GLUCOSE 155 mg/dL H 70-100 Mar 21, 2021 07:36 [facility] F[place] GLUCOSE Speci men Type: BLOOD PM Comment: [place] Nurse Notified Ordering Provid er: GRANTCARD II Report Released Date/Time: Mar 21, 2021 08:53 PM Reporting Lab: [facility] [address] [facility] [address] Performing Lab: [facility] [address] [facility] [address] F[place] GLUCOSE 214 mg/dL H 70-100 Mar 21, 2021 04:00 [facility] FINGERSTICK GLUCOSE Speci men Type: BLOOD PM Comment: [place] Nurse Notified Ordering Provid er: TEAM,CARD II Report Released Date/Time: Mar 21, 2021 04:27 PM Reporting Lab: [facility] [address] [facility] [address] Performing Lab: [facility] [address] [facility] [address] [place] GLUCOSE 252 mg/dL H 70-100 Mar 21, 2021 11:43 [facility] [place] GLUCOSE Speci men Type: BLOOD AM Comment: [place] Nurse Notified Ordering Provid er: TEAM,CARD II Report Released Date/Time: Mar 21, 2021 12:08 PM Reporting Lab: [facility] [address] [facility] [address] Performing Lab: [facility] [address] [facility] [address] [place] GLUCOSE 227 mg/dL H 70-100 Mar 21, 2021 06:45 AM [facility] ALBUMIN Specim en Type: PLASMA No comment enter ed. Ordering Provid er: LISBET W[place] V Report Released Date/Time: Mar 20, 2021 10:27 AM Reporting Lab: [facility] [address] [facility] [address] Performing Lab: [facility] [address] [facility] [address] ALBUMIN 3.5 g/dL 3.5-5.2 Mar 21, 2021 06:45 [facility] BASIC METABOLIC Specimen Type: PLASMA AM PANEL+MG No comment enter ed. Ordering Provid er: RODO PINTO Report Released Date/Time: Mar 20, 2021 02:43 PM Reporting Lab: [facility] [address] [facility] [address] Performing Lab: [facility] [address] [facility] [address] CREATININE 1.5 mg/dL H 0.7-1.2 UREA NITROGEN 26 mg/dL 8-26 GLUCOSE 207 mg/dL H 74-100 SODIUM 140 mmol/L 136-145 POTASSIUM 4.4 mmol/L 3.5-5.1 CHLORIDE 109 mmol/L H 98-107 CO2 24 mmol/L 22-29 CALCIUM 9.0 mg/dL 8.4-10.2 MAGNESIUM 2.3 mg/dL 1.6-2.6 ANION GAP 7 mmol/L 5-15 ESTIMATED GFR(eGFR) 46 L >60 Mar 21, 2021 06:38 [facility] F[place]ER[place] GLUCOSE Speci men Type: BLOOD AM Comment: [place] Nurse Notified Ordering Provid er: TEAM,CARD II Report Released Date/Time: Mar 21, 2021 07:23 AM Reporting Lab: [facility] [address] [facility] [address] Performing Lab: [facility] [address] [place] GLUCOSE 159 mg/dL H 70-100 Mar 20, 2021 08:27 [facility] [place] GLUCOSE Speci men Type: BLOOD PM Comment: [place] Nurse Notified Ordering Provid er: TEAM,CARD II Report Released Date/Time: Mar 20, 2021 10:52 PM Reporting Lab: [facility] [address] [facility] [address] Performing Lab[facility] [address] [place] GLUCOSE 224 mg/dL H 70-100 Mar 20, 2021 05:06 [facility] [place] GLUCOSE Speci men Type: BLOOD PM Comment: [place] Nurse Notified Ordering Provid er: GRANT,CARD II Report Released Date/Time: Mar 20, 2021 05:27 PM Reporting Lab: [facility] [address] [facility] [address] Performing Lab: [facility] [address] [place] GLUCOSE 183 mg/dL H 70-100 Mar 20, 2021 08:16 [facility] BASIC METABOLIC Specimen Type: PLASMA AM PANEL+MG No comment enter ed. Ordering Provid er: TUCKER JULIAN Report Released Date/Time: Mar 15, 2021 02:20 PM Reporting Lab: [facility] [address] [facility] [address] Performing Lab: [facility] [address] CREATININE 1.6 mg/dL H 0.7-1.2 UREA NITROGEN 31 mg/dL H 8-26 GLUCOSE 216 mg/dL H 74-100 SODIUM 142 mmol/L 136-145 POTASSIUM 4.6 mmol/L 3.5-5.1 CHLORIDE 106 mmol/L 98-107 CO2 25 mmol/L 22-29 CALCIUM 9.3 mg/dL 8.4-10.2 MAGNESIUM 2.2 mg/dL 1.6-2.6 ANION GAP 11 mmol/L 5-15 ESTIMATED GFR(eGFR) 43 L >60 Mar 20, 2021 08:16 [facility] COVID-19 DIAGNOSTIC Speci men Type: NASOPHARYNGEAL AM PANEL (CEPHEID) Comment: Wiley samuel GeneXpert ([id number]) Ordering Provid er: TUCKER JULIAN Report Released Date/Time: Mar 15, 2021 02:20 PM Reporting Lab: [facility] [address] Performing Lab: [facility] [address] COVID-19 (CEPHEID) Not Detected Not Dete cted Mar 05, 2021 09:42 [facility] BASIC METABOLIC Specimen Type: PLASMA AM PANEL+MG No comment enter ed. Ordering Provid er: VICENTE PELAEZ Report Released Date/Time: Feb 19, 2021 01:50 PM Reporting Lab: [facility] [address] Performing Lab: [facility] [address] CREATININE 1.4 mg/dL H 0.7-1.2 UREA NITROGEN [...] dy Source Pressure Rate Mass Index Mar 21, 97.9 F 71 107/71 18 /min 92 % 0 [place] 2020 01:00 /min mm[Hg] [facility] Social History: Smoking Status [...] 11:21 AM VA-VAAES TOBACCO USE CURRENT NRT [facility] DECLINE Tobacco Use History This section includes a history of the smoking, or tobacco- related health factors, that were collected on or before the date of the Encounter. The data comes from the [place] facility where the Encounter took place. Date/Time Smoking Status/Tobacco Use Comment [facility] it Nov 15, 2020 10:00 AM VA-TOBACCO DOESNT USE [place] 30 MIN [facility] WAKEUP Nov 15, 2020 10:00 AM VA-TOBACCO USE 30 YEARS OR MORE [facility] Nov 15, 2020 10:00 AM VA-TOBACCO USE ADVICE [facility] Nov 15, 2020 10:00 AM VA-TOBACCO USE CATTLE KILLER NO [facility] Nov 15, 2020 10:00 AM VA-TOBACCO USE MED NO [place] [facility] Nov 15, 2020 10:00 AM VA-TOBACCO USER EVERY DAY [facility] Jun 21, 2019 02:29 PM VA-TOBACCO USE 30 YEARS OR MORE [facility] Jun 21, 2019 02:29 PM VA-TOBACCO USE ADVICE [place] [facility] Jun 21, 2019 02:29 PM VA-TOBACCO USE CATTLE KILLER NO [facility] Jun 21, 2019 02:29 PM VA-TOBACCO USE MED NO [place] [facility] Jun 21, 2019 02:29 PM VA-TOBACCO USE [place] 30 MIN OF WAKEUP [facility] Jun 21, 2019 02:29 PM VA-TOBACCO USER EVERY DAY [facility] Jun 09, 2018 03:48 PM VA-TOBACCO USE 30 YEARS OR MORE [facility] Jun 09, 2018 03:48 PM VA-TOBACCO USE ADVICE [place] [facility] Jun 09, 2018 03:48 PM VA-TOBACCO USE CATTLE KILLER NO [facility] Jun 09, 2018 03:48 PM VA-TOBACCO USE MED NO [place] [facility] Jun 09, 2018 03:48 PM VA-TOBACCO USE [place] 30 MIN OF WAKEUP [facility] Jun 09, 2018 03:48 PM VA-TOBACCO USER EVERY DAY [facility] Jun 20, 2017 07:53 AM CURRENT TOBACCO USER [facility] Jun 19, 2016 08:41 AM CURRENT TOBACCO USER [facility] Jun 21, 2015 08:15 AM CURRENT TOBACCO USER [facility] Mar 22, 2014 10:03 AM CURRENT TOBACCO USER [facility] Mar 25, 2013 11:01 AM CURRENT TOBACCO USER [facility] Feb 05, 2012 08:55 AM CURRENT TOBACCO USER [facility] January 01, 2011 09:26 AM CURRENT TOBACCO USER [facility] Mar 07, 2010 10:02 AM CURRENT TOBACCO USER [facility] Feb 21, 2009 08:17 AM CURRENT TOBACCO USER [facility] Nov 06, 2007 10:02 AM CURRENT TOBACCO USER [facility] January 02, 2007 10:33 AM CURRENT TOBACCO USER [facility] Advance Directives: All historical and current Section [...] Mar 06, 2005 ADVANCE DIRECTIVE GANESH RODRIGUEZ [facility]
--- OUTSIDE RECORDS SUMMARY | 2022-04-02 16:05 | XMS_ITS ---
DAILY HOSPITALIZATION DATA [facility] Encounter Summary Created on:March 21, 2021 Patient:PAUL MICHELE Sex:Male :1945 Author Organization Department [facility] Address [address] [place] [id number] Care Team Providers Name Role Phone WILLA [...] MEDICARE MEDICARE PART Jun 25, PART B [id number] Saumya QUINONES PATIENT (WNR) (M) B 2011 78A 0 AVID MEDICARE MEDICARE PART Sep 25, PART A [id number] Saumya QUINONES PATIENT (WNR) (M) A 2009 78A 0 AVID MEDICARE MEDICARE PART Sep 25, PART A [id number] Saumya MICHELE (WNR) (M) A 2009 78A [id number] AVID MEDICARE MEDICARE PART Sep 25, PART B [id number] Saumya MICHELE ATTHOMAS (WNR) (M) B 2009 [id number] AVID Selected Encounter This section includes the information on record at [place] for the Encounter. Date/Time Encounter Type Encounter Description Reason Provider Source Mar 21, 2021 Inpatient Visit DAILY HOSPITALIZATION RODO PINTO 10:14 AM DATA S E Encounter Template Text not used by [place] Plan of Treatment: Future Appointments (+ 6 months) and Future Tests (+/- 45 days) The Plan of Treatment section includes future care activities for the [facility] This section includes future appointments and future orders which are active, pending orscheduled.Future Appointments This section includes appointments that were scheduled to occur 6 months from the date of the Encounter, up to a maximum of 20 appointments. The data comes from all [place] treatment facilities. Appointment Date/Time Appointment Type Appointment Facili ty Name Mar 22, 2021 06:26 PM AMBULATORY - MEDICINE [facility] Mar 23, 2021 02:30 PM AMBULATORY - MEDICINE [facility] Mar 23, 2021 03:00 PM AMBULATORY - MEDICINE [facility] Mar 26, 2021 09:00 AM AMBULATORY - NONE [facility] Apr 02, 2021 01:13 PM AMBULATORY - MEDICINE [facility] May 08, 2021 02:00 PM AMBULATORY - NONE [facility] Jun 13, 2021 02:00 PM AMBULATORY - NONE [facility] Jun 18, 2021 12:45 PM AMBULATORY - NONE [facility] Jun 18, 2021 01:30 PM AMBULATORY - MEDICINE [facility] Jun 20, 2021 10:00 AM AMBULATORY - MEDICINE [facility] Jul 11, 2021 01:00 PM AMBULATORY - NONE [facility] Jul 26, 2021 09:00 AM AMBULATORY - MEDICINE [facility] Jul 26, 2021 10:30 AM AMBULATORY - NONE [facility] Aug 03, 2021 10:46 AM AM[facility]ULATORY - MEDICINE [facility] Aug 08, 2021 07:00 AM AMBULATORY - NONE [facility] Aug 10, 2021 10:30 AM AMBULATORY - NONE [facility] Sep 14, 2021 09:00 AM AMBULATORY - NONE [facility] Sep 21, 2021 09:45 AM AMBULATORY - MEDICINE [facility] Sep 21, 2021 10:00 AM AMBULATORY - MEDICINE [facility] Sep 21, 2021 10:30 AM AMBULATORY - MEDICINE [facility] Lab Results: +/- 30 days of the encounter This section includes the Chemistry and Hematology Lab Results on record with [place] for the patient. Radiology Reports and Pathology Reports are provided separately, in subsequent sections.Lab Results This section contains the Chemistry/Hematology Results that were resulted 30 days before or 30 daysafter the date of the Encounter. Date/Time Source Result Type Result - Unit Interpretation Reference Range Comment Mar 23, 2021 09:[address] [facility] POTASSIUM Specim en Type: PLASMA No comment enter ed. Ordering Provid er: RODO PINTO Report Released Date/Time: Mar 23, 2021 09:33 AM Reporting Lab: [facility] [address] [facility] [address] Performing Lab: [facility] [address] [facility] [address] POTASSIUM 4.6 mmol/L 3.5-5.1 Mar 23, 2021 06:48 [facility] BASIC METABOLIC Specimen Type: PLASMA AM PANEL+MG Comment: Cancel lation Called to: Dora Mae MSA 03/23/2021 @ 0930 by AEK. 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 Ordering Provid er: RODO PINTO Report Released Date/Time: Mar 22, 2021 10:19 AM Reporting Lab: [facility] [address] [facility] [address] Performing Lab: [facility] [address] [facility] [address] CREATININE 1.3 mg/dL H 0.7-1.2 UREA NITROGEN 25 mg/dL 8-26 GLUCOSE 170 mg/dL H 74-100 SODIUM 139 mmol/L 136-145 POTASSIUM canc mmol/L 3.5-5.1 CHLORIDE 109 mmol/L H 98-107 CO2 23 mmol/L 22-29 CALCIUM 9.0 mg/dL 8.4-10.2 MAGNESIUM 2.2 mg/dL 1.6-2.6 ANION GAP 7 mmol/L 5-15 ESTIMATED GFR(eGFR) 54 L >60 Mar 23, 2021 06:[address] [facility] MAGNESIUM Specim en Type: PLASMA No comment enter ed. Ordering Provid er: RODO PINTO Report Released Date/Time: Mar 22, 2021 10:19 AM Reporting Lab: [facility] [address] [facility] [address] Performing Lab: [facility] [address] [facility] [address] MAGNESIUM 2.2 mg/dL 1.6-2.6 Mar 23, 2021 06:13 [facility] [place] GLUCOSE Speci men Type: BLOOD AM Comment: Abram rock Nurse Notified Ordering Provid er: TEAM,CARD II Report Released Date/Time: Mar 23, 2021 07:07 AM Reporting Lab: [facility] [address] [facility] [address] Performing Lab: [facility] [address] [facility] [address] FING[place] GLUCOSE 168 mg/dL H 70-100 Mar 22, 2021 08:30 [facility] [place] GLUCOSE Speci men Type: BLOOD PM Comment: VENOUS SAMPLE Ordering Provid er: GRANTCARD II Report Released Date/Time: Mar 23, 2021 08:23 AM Reporting Lab: [facility] [address] [facility] [address] Performing Lab: [facility] [address] [facility] [address] [place] GLUCOSE 240 mg/dL H 70-100 Mar 22, 2021 04:28 [facility] [place] GLUCOSE Speci men Type: BLOOD PM Comment: Abram Welch Notified Ordering Provid er: GRANTCARD II Report Released Date/Time: Mar 22, 2021 04:42 PM Reporting Lab: [facility] [address] [facility] [address] Performing Lab: [facility] [address] [facility] [address] [place] GLUCOSE 197 mg/dL H 70-100 Mar 22, 2021 11:28 [facility] [place] GLUCOSE Speci men Type: BLOOD AM Comment: [place]am rock Nurse Notified Ordering Provid er: GRANTCARD II Report Released Date/Time: Mar 22, 2021 12:14 PM Reporting Lab: [facility] [address] [facility] [address] Performing Lab: [facility] [address] [facility] [address] [place] GLUCOSE 225 mg/dL H 70-100 Mar 22, 2021 06:13 [facility] [place] GLUCOSE Speci men Type: BLOOD AM Comment: [place] Nurse Notified Ordering Provid er: GRANTCARD II Report Released Date/Time: Mar 22, 2021 12:13 PM Reporting Lab: [facility] [address] [facility] [address] Performing Lab: [facility] [address] [facility] [address] [place] GLUCOSE 155 mg/dL H 70-100 Mar 21, 2021 07:36 [facility] [place] GLUCOSE Speci men Type: BLOOD PM Comment: [place]am rock Nurse Notified Ordering Provid er: GRANTCARD II Report Released Date/Time: Mar 21, 2021 08:53 PM Reporting Lab: [facility] [address] [place] [facility] [address] Performing Lab: [facility] [address] [facility] [address] [place] GLUCOSE 214 mg/dL H 70-100 Mar 21, 2021 04:00 [facility] [place] GLUCOSE Speci men Type: BLOOD PM Comment: [place]am [place] Nurse Notified Ordering Provid er: TEAM,CARD II Report Released Date/Time: Mar 21, 2021 04:27 PM Reporting Lab: [facility] [address] [place] [facility] [address] Performing Lab: [facility] [address] [facility] [address] [place] GLUCOSE 252 mg/dL H 70-100 Mar 21, 2021 11:43 [facility] [place] GLUCOSE Speci men Type: BLOOD AM Comment: [place] Nurse Notified Ordering Provid er: TEAM,CARD II Report Released Date/Time: Mar 21, 2021 12:08 PM Reporting Lab: [facility] [address] [facility] [address] Performing Lab: [facility] [address] [facility] [address] [place] GLUCOSE 227 mg/dL H 70-100 Mar 21, 2021 06:[address] [facility] ALBUMIN Specim en Type: PLASMA No comment enter ed. Ordering Provid er: LISBET WASHINGTON V Report Released Date/Time: Mar 20, 2021 10:27 AM Reporting Lab: [facility] [address] [facility] [address] Performing Lab: [facility] [address] [facility] [address] ALBUMIN 3.5 g/dL 3.5-5.2 Mar 21, 2021 06:45 [facility] BASIC METABOLIC Specimen Type: PLASMA AM PANEL+MG No comment enter ed. Ordering Provid er: RODO PINTO Report Released Date/Time: Mar 20, 2021 02:43 PM Reporting Lab: [facility] [address] [facility] [address] Performing Lab: [facility] [address] [facility] [address] CREATININE 1.5 mg/dL H 0.7-1.2 UREA NITROGEN 26 mg/dL 8-26 GLUCOSE 207 mg/dL H 74-100 SODIUM 140 mmol/L 136-145 POTASSIUM 4.4 mmol/L 3.5-5.1 CHLORIDE 109 mmol/L H 98-107 CO2 24 mmol/L 22-29 CALCIUM 9.0 mg/dL 8.4-10.2 MAGNESIUM 2.3 mg/dL 1.6-2.6 ANION GAP 7 mmol/L 5-15 ESTIMATED GFR(eGFR) 46 L >60 Mar 21, 2021 06:38 [facility] [place] GLUCOSE Speci men Type: BLOOD AM Comment: [place]am [place] Nurse Notified Ordering Provid er: TEAM,CARD II Report Released Date/Time: Mar 21, 2021 07:23 AM Reporting Lab: [facility] [address] [facility] [address] Performing Lab: [facility] [address] [place] GLUCOSE 159 mg/dL H 70-100 Mar 20, 2021 08:27 [facility] [place] GLUCOSE Speci men Type: BLOOD PM Comment: [place]am [place] Nurse Notified Ordering Provid er: TEAM,CARD II Report Released Date/Time: Mar 20, 2021 10:52 PM Reporting Lab: [facility] [address] [facility] [address] Performing Lab: [facility] [address] [place] GLUCOSE 224 mg/dL H 70-100 Mar 20, 2021 05:06 [facility] [place] GLUCOSE Speci men Type: BLOOD PM Comment: [place]am [place] Nurse Notified Ordering Provid er: GRANT,CARD II Report Released Date/Time: Mar 20, 2021 05:27 PM Reporting Lab: [facility] [address] [facility] [address] Performing Lab: [facility] [address] [place] GLUCOSE 183 mg/dL H 70-100 Mar 20, 2021 08:16 [facility] BASIC METABOLIC Specimen Type: PLASMA AM PANEL+MG No comment enter ed. Ordering Provid er: TUCKER JULIAN Report Released Date/Time: Mar 15, 2021 02:20 PM Reporting Lab: [facility] [address] [facility] [address] Performing Lab: [facility] [address] CREATININE 1.6 mg/dL H 0.7-1.2 UREA NITROGEN 31 mg/dL H 8-26 GLUCOSE 216 mg/dL H 74-100 SODIUM 142 mmol/L 136-145 POTASSIUM 4.6 mmol/L 3.5-5.1 CHLORIDE 106 mmol/L 98-107 CO2 25 mmol/L 22-29 CALCIUM 9.3 mg/dL 8.4-10.2 MAGNESIUM 2.2 mg/dL 1.6-2.6 ANION GAP 11 mmol/L 5-15 ESTIMATED GFR(eGFR) 43 L >60 Mar 20, 2021 08:16 [facility] COVID-19 DIAGNOSTIC Speci men Type: NASOPHARYNGEAL AM PANEL (CEPHEID) Comment: Wiley samuel GeneXpert ([id number]) Ordering Provid er: TUCKER JULIAN Report Released Date/Time: Mar 15, 2021 02:20 PM Reporting Lab: [facility] [address] Performing Lab: [facility] [address] COVID-19 (CEPHEID) Not Detected Not Dete cted Mar 05, 2021 09:42 [facility] BASIC METABOLIC Specimen Type: PLASMA AM PANEL+MG No comment enter ed. Ordering Provid er: VICENTE PELAEZ Report Released Date/Time: Feb 19, 2021 01:50 PM Reporting Lab: [facility] [address] Performing Lab: [facility] [address] CREATININE 1.4 mg/dL H 0.7-1.2 UREA NITROGEN [...] % 0 [place] 2020 01:00 /min mm[Hg] [facility] Social History: Smoking Status (Most current) and Tobacco Use (All prior to encounter date) This section includes the most current, and the historical, smoking and tobacco-related health factors from the [place] facility where the Encounter took place.Current Smoking Status This section includes the most current smoking, or tobacco-related health factor, from the [place] facility where the Encounter took place. Date/Time Current Smoking Status Comment Facility Mar 20, 2021 11:21 AM [facility] TOBACCO USE CURRENT NRT [facility] DECLINE Tobacco Use History This section includes a history of the smoking, or tobacco- related health factors, that were collected on or before the date of the Encounter. The data comes from the [place] facility where the Encounter took place. Date/Time Smoking Status/Tobacco Use Comment [facility] it Nov 15, 2020 10:00 AM VA-TOBACCO DOES[place] USE [place] [address] [facility] WAKEUP Nov 15, 2020 10:00 AM VA-TOBACCO USE [address] 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 Nov 15, 2020 10:00 AM VA-TOBACCO USE MED NO [place] [facility] Nov 15, 2020 10:00 AM VA-TOBACCO USER EVERY DAY [facility] Jun 21, 2019 02:29 PM VA-TOBACCO USE [address] 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 Jun 21, 2019 02:29 PM VA-TOBACCO USE MED NO [place] [facility] Jun 21, 2019 02:29 PM VA-TOBACCO [place] [address] [facility] Jun 21, 2019 02:29 PM VA-TOBACCO USER EVERY DAY [facility] Jun 09, 2018 03:48 PM VA-TOBACCO USE [address] 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 Jun 09, 2018 03:48 PM VA-TOBACCO USE MED NO [place] [facility] Jun 09, 2018 03:48 PM VA-TOBACCO [place] [address] [facility] Jun 09, 2018 03:48 PM VA-TOBACCO USER EVERY DAY [facility] Jun 20, 2017 07:53 AM [...] ALL of a patient's completed or amended [place] Advance and Rescinded Directives. The entries below indicate that a directive exists for the patient, but an actual copy is not included with this document. The data comes from all [place] facilities. Date Advance Directives Provider Source Mar 06, 2005 ADVANCE DIRECTIVE GANESH R[address]RIGUEZ [facility]
--- OUTSIDE RECORDS SUMMARY | 2022-04-02 16:05 | XMS_ITS | Encounter Summary ---
:[address] [facility] Address [address] [place] [id number] Care Team Providers Name Role Phone CROUCH [...] MEDICARE MEDICARE PART Jun 25, PART B [id number] Saumya QUINONES PATIENT (WNR) (M) B 2011 78A 0 AVID MEDICARE MEDICARE PART Sep 25, PART A [id number] Saumya QUINONES PATIENT (WNR) (M) A 2009 78A 0 AVID MEDICARE MEDICARE PART Sep 25, PART A [id number] Saumya MICHELE (WNR) (M) A 2009 78A [id number] AVID MEDICARE MEDICARE PART Sep 25, PART B [id number] Saumya MICHELE ATTHOMAS (WNR) (M) B 2009 [id number] [id number] AVID Selected Encounter This section includes the information on record at [place] for the Encounter. Date/Time Encounter Type Encounter Description Reason Provider Source Mar 20, 2021 12:00 Outpatient Encounter EVENT (HISTORICAL) AM IHE Encounter Template Text not used by [place] Plan of Treatment: Future Appointments (+ 6 months) and Future Tests (+/- 45 days) The Plan of Treatment section includes future care activities for the patient [facility] [place] [facility]. This section includes future appointments and future orders which are active, pending orscheduled.Future Appointments This section includes appointments that were scheduled to occur 6 months from the date of the Encounter, up to a maximum of 20 appointments. The data comes from all [place] treatment facilities. Appointment Date/Time Appointment Type Appointment Facili ty Name Mar 22, 2021 06:26 PM AMBULATORY - MEDICINE [facility] Mar 23, 2021 02:30 PM AMBULATORY - [facility]ICINE [facility] Mar 23, 2021 03:00 PM AMBULATORY - MEDICINE [facility] Mar 26, 2021 09:00 AM AMBULATORY - NONE [facility] Apr 02, 2021 01:13 PM AMBULATORY - MEDICINE [facility] May 08, 2021 02:00 PM AMBULATORY - NONE [facility] Jun 13, 2021 02:00 PM AMBULATORY - [facility] Jun 18, 2021 12:45 PM AMBULATORY - [facility] Jun 18, 2021 01:30 PM AMBULATORY - MEDICINE [facility] Jun 20, 2021 10:00 AM AMBULATORY - MEDICINE [facility] Jul 11, 2021 01:00 PM AMBULATORY - [facility] Jul 26, 2021 09:00 AM AMBULATORY - MEDICINE [facility] Jul 26, 2021 10:30 AM AMBULATORY - [facility] Aug 03, 2021 10:46 AM AMBULATORY - MEDICINE [facility] Aug 08, 2021 07:00 AM AMBULATORY - [facility] Aug 10, 2021 10:30 AM AMBULATORY - [facility] Sep 14, 2021 09:00 AM AMBULATORY - [facility] Lab Results: +/- 30 days of the encounter This section includes the Chemistry and Hematology Lab Results on record with [place] for the patient. Radiology Reports and Pathology [...] Lab: [facility] [address] Performing Lab: [facility] [address] [facility] [address] POTASSIUM 4.6 mmol/L 3.5-5.1 Mar 23, 2021 06:48 [facility] BASIC METABOLIC Specimen Type: PLASMA AM PANEL+MG Comment: Cancel latdevin Called to: Dora Mae MSA 03/23/2021 @ 0930 by AEK. 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 Ordering Provid er: RODO PINTO Report Released Date/Time: Mar 22, 2021 10:19 AM Reporting Lab: [facility] [address] [facility] [address] Performing [facility]: [facility] [address] CREATININE 1.3 mg/dL H 0.7-1.2 UREA NITROGEN 25 mg/dL 8-26 GLUCOSE 170 mg/dL H 74-100 SODIUM 139 mmol/L 136-145 POTASSIUM canc mmol/L 3.5-5.1 CHLORIDE 109 mmol/L H 98-107 CO2 23 mmol/L 22-29 CALCIUM 9.0 mg/dL 8.4-10.2 MAGNESIUM 2.2 mg/dL 1.6-2.6 ANION GAP 7 mmol/L 5-15 ESTIMATED GFR(eGFR) 54 L >60 Mar 23, 2021 06:48 AM [facility] MAGNESIUM Specim en Type: PLASMA No comment enter ed. Ordering Provid er: RODO PINTO Report Released Date/Time: Mar 22, 2021 10:19 AM Reporting Lab: [facility] [address] [facility] [address] Performing Lab: [facility] [address] [facility] [address] MAGNESIUM 2.2 mg/dL 1.6-2.6 Mar 23, 2021 06:13 [facility] FINGERSTICK GLUCOSE Speci men Type: BLOOD AM Comment: [place] Nurse Notified Ordering Provid er: DARLYN BURNS II Report Released Date/Time: Mar 23, 2021 07:07 AM Reporting Lab: [facility] [address] [facility] [address] Performing Lab: [facility] [address] [facility] [address] FINGERSTICK GLUCOSE 168 mg/dL H 70-100 Mar 22, 2021 08:30 [facility] FINGERSTICK GLUCOSE Speci men Type: BLOOD PM Comment: VENOUS SAMPLE Ordering Provid er: DARLYN BURNS II Report Released Date/Time: Mar 23, 2021 08:23 AM Reporting Lab: [facility] [address] [facility] [address] Performing Lab: [facility] [address] [facility] [address] FINGERSTICK GLUCOSE 240 mg/dL H 70-100 Mar 22, 2021 04:28 [facility] FINGERSTICK GLUCOSE Speci men Type: BLOOD PM Comment: [place] Nurse Notified Ordering Provid er: DARLYN BURNS II Report Released Date/Time: Mar 22, 2021 04:42 PM Reporting Lab: [facility] [address] [facility] [address] Performing Lab: [facility] [address] [facility] [address] FINGERSTICK GLUCOSE 197 mg/dL H 70-100 Mar 22, 2021 11:28 [facility] FINGERSTICK GLUCOSE Speci men Type: BLOOD AM Comment: [place] Nurse Notified Ordering Provid er: DARLYN BURNS II Report Released Date/Time: Mar 22, 2021 12:14 PM Reporting Lab: [facility] [address] [facility] [address] Performing Lab: [facility] [address] [facility] [address] FINGERSTICK GLUCOSE 225 mg/dL H 70-100 Mar 22, 2021 06:13 [facility] FINGERSTICK GLUCOSE Speci men Type: BLOOD AM Comment: [place] Nurse Notified Ordering Provid er: DARLYN BURNS II Report Released Date/Time: Mar 22, 2021 12:13 PM Reporting Lab: [facility] [address] [facility] [address] Performing Lab: [facility] [address] [facility] [address] FINGERSTICK GLUCOSE 155 mg/dL H 70-100 Mar 21, 2021 07:36 [facility] FINGERSTICK GLUCOSE Speci men Type: BLOOD PM Comment: [place] Nurse Notified Ordering Provid er: DARLYN BURNS II Report Released Date/Time: Mar 21, 2021 08:53 PM Reporting Lab: [facility] [address] [facility] [address] Performing Lab: [facility] [address] [facility] [address] FINGERSTICK GLUCOSE 214 mg/dL H 70-100 Mar 21, 2021 04:00 [facility] FINGERSTICK GLUCOSE Speci men Type: BLOOD PM Comment: [place] Nurse Notified Ordering Provid er: DARLYN BURNS II Report Released Date/Time: Mar 21, 2021 04:27 PM Reporting Lab: [facility] [address] [facility] [address] Performing Lab: [facility] [address] [facility] [address] FINGERSTICK GLUCOSE 252 mg/dL H 70-100 Mar 21, 2021 11:43 [facility] FINGERSTICK GLUCOSE Speci men Type: BLOOD AM Comment: [place] Nurse Notified Ordering Provid er: DARLYN BURNS II Report Released Date/Time: Mar 21, 2021 12:08 PM Reporting Lab: [facility] [address] [facility] [address] Performing Lab: [facility] [address] [facility] [address] FINGERSTICK GLUCOSE 227 mg/dL H 70-100 Mar 21, 2021 06:45 AM [facility] ALBUMIN Specim en Type: PLASMA No comment enter ed. Ordering Provid er: LISBET [place] V Report Released Date/Time: Mar 20, 2021 10:27 AM Reporting Lab: [facility] [address] [facility] [address] Performing Lab: [facility] [address] [facility] [address] ALBUMIN 3.5 g/dL 3.5-5.2 Mar 21, 2021 06:45 [facility] BASIC METABOLIC Specimen Type: PLASMA AM PANEL+MG No comment enter ed. Ordering Provid er: RODO PINTO Report Released Date/Time: Mar 20, 2021 02:43 PM Reporting Lab: [facility] [address] [facility] [address] Performing Lab: [facility] [address] [facility] [address] CREATININE 1.5 mg/dL H 0.7-1.2 UREA NITROGEN [...] [facility] CARE [facility] [address] [facility] [address] Performing Lab: [facility] [address] [facility] [address] FINGERSTICK GLUCOSE 159 mg/dL H 70-100 Mar 20, 2021 08:27 [facility] FINGERSTICK GLUCOSE Speci men Type: BLOOD PM Comment: [place] Nurse Notified Ordering Provid er: TEAM,CARD II Report Released Date/Time: Mar 20, 2021 10:52 PM Reporting Lab: [facility] [address] [facility] [address] Performing Lab: [facility] [address] [facility] [address] FINGERSTICK GLUCOSE 224 mg/dL H 70-100 Mar 20, 2021 05:06 [facility] FINGERSTICK GLUCOSE Speci men Type: BLOOD PM Comment: [place] Nurse Notified Ordering Provid er: TEAM,CARD II Report Released Date/Time: Mar 20, 2021 05:27 PM Reporting Lab: [facility] [address] [facility] [address] Performing Lab: [facility] [address] [facility] [address] FINGERSTICK GLUCOSE 183 mg/dL H 70-100 Mar 20, 2021 08:16 [facility] BASIC METABOLIC Specimen Type: PLASMA AM PANEL+MG No comment enter ed. Ordering Provid er: TUCKER JULIAN Report Released Date/Time: Mar 15, 2021 02:20 PM Reporting Lab: [facility] [address] [facility] [address] Performing Lab: [facility] [address] [facility] [address] CREATININE 1.6 mg/dL H 0.7-1.2 UREA NITROGEN 31 mg/dL H 8-26 GLUCOSE 216 mg/dL H 74-100 SODIUM 142 mmol/L 136-145 POTASSIUM 4.6 mmol/L 3.5-5.1 CHLORIDE 106 mmol/L 98-107 CO2 25 mmol/L 22-29 CALCIUM 9.3 mg/dL 8.4-10.2 MAGNESIUM 2.2 mg/dL 1.6-2.6 ANION GAP 11 mmol/L 5-15 ESTIMATED GFR(eGFR) 43 L >60 Mar 20, 2021 08:16 [facility] COVID-19 DIAGNOSTIC Speci men Type: NASOPHARYNGEAL AM PANEL (CEPHEID) Comment: Wiley samuel GeneXpert (618) Ordering Provid er: TUCKER JULIAN Report Released Date/Time: Mar 15, 2021 02:20 PM Reporting Lab: [facility] [address] Performing Lab: [facility] [address] COVID-19 (CEPHEID) Not Detected Not Dete cted Mar 05, 2021 09:42 [facility] BASIC METABOLIC Specimen Type: PLASMA AM PANEL+MG No comment enter ed. Ordering Provid er: VICENTE PELAEZ Report Released Date/Time: Feb 19, 2021 01:50 PM Reporting Lab: [facility] [address] Performing Lab: [facility] [address] CREATININE 1.4 mg/dL H 0.7-1.2 UREA NITROGEN 22 mg/dL 8-26 GLUCOSE 241 mg/dL H 74-100 SODIUM 139 mmol/L 136-145 POTASSIUM 4.6 mmol/L 3.5-5.1 CHLORIDE 105 mmol/L 98-107 CO2 24 mmol/L 22-29 CALCIUM 9.1 mg/dL 8.4-10.2 MAGNESIUM 2.1 mg/dL 1.6-2.6 ANION GAP 10 mmol/L 5-15 ESTIMATED GFR(eGFR) 50 L >60 Feb 19, 2021 12:03 PM [facility] AST/SGOT Specim en Type: PLASMA No comment enter ed. Ordering Provid er: SAKSHI CROUCH Report Released Date/Time: January 17, 2021 05:13 PM Reporting Lab: [facility] [address] Performing Lab: [facility] [address] AST/SGOT 28 U/L <34 Feb 19, 2021 12:03 PM [facility] ALT/SGPT Specim en Type: PLASMA No comment enter ed. Ordering Provid er: SAKSHI CROUCH Report Released Date/Time: January 17, 2021 05:13 PM Reporting Lab: [facility] [address] [facility] [address] Performing Lab: [facility] [address] [facility] [address] ALT/SGPT 32 U/L <55 Feb 19, 2021 [facility] CREATININE(INCLUDES EGFR) Sp ecimen Type: PLASMA 12:03 PM No comment enter ed. Ordering Provid er: SAKSHI CROUCH Report Released Date/Time: January 17, 2021 05:13 PM Reporting Lab: [facility] [address] [facility] [address] Performing Lab: [facility] [address] [facility] [address] CREATININE 1.4 mg/dL H 0.7-1.2 ESTIMATED GFR(eGFR) 50 L >60 Feb 19, 2021 12:03 PM [facility] POTASSIUM Specim en Type: PLASMA No comment enter ed. Ordering Provid er: SAKSHI CROUCH Report Released Date/Time: January 17, 2021 05:13 PM Reporting Lab: [facility] [address] [facility] [address] Performing Lab: [facility] [address] [facility] [address] POTASSIUM 4.2 mmol/L 3.5-5.1 Feb 19, 2021 12:03 PM [facility] HEMOGLOBIN A1C Specim en Type: BLOOD No comment enter ed. Ordering Provid er: SAKSHI CROUCH Report Released Date/Time: January 17, 2021 05:13 PM Reporting Lab: [facility] [address] [facility] [address] Performing Lab: [facility] [address] [facility] [address] HEMOGLOBIN A1C 10.0 H 4.0-6.0 Social History: Smoking Status (Most current) and Tobacco Use (All prior to encounter date) This section includes the most current, and the historical, smoking and tobacco-related health factors from the [place] facility where the Encounter took place.Current Smoking Status This section includes the most current smoking, or tobacco-related health factor, from the [place] facility where the Encounter took place. Date/Time Current Smoking Status Comment Facility Mar 20, 2021 11:21 AM IN-VAAES TOBACCO USE CURRENT NRT [facility] DECLINE Tobacco Use History This section includes a history of the smoking, or tobacco- related health factors, that were collected on or before the date of the Encounter. The data comes from the [place] facility where the Encounter took place. Date/Time Smoking Status/Tobacco Use Comment Nicola ity Nov 15, 2020 10:00 AM VA-TOBACCO DOESNT USE WI 30 MIN [facility] WAKEUP Nov 15, 2020 10:00 AM VA-TOBACCO USE 30 YEARS OR MORE [facility] Nov 15, 2020 10:00 AM VA-TOBACCO USE ADVICE [facility] Nov 15, 2020 10:00 AM VA-TOBACCO USE DATE PITTER NO [facility] Nov 15, 2020 10:00 AM VA-TOBACCO USE MED NO [facility] Nov 15, 2020 10:00 AM VA-TOBACCO USER EVERY DAY [facility] Jun 21, 2019 02:29 PM VA-TOBACCO USE 30 YEARS OR MORE [facility] Jun 21, 2019 02:29 PM [facility]-TOBACCO [facility] Jun 21, 2019 02:29 PM VA-TOBACCO USE DATE PITTER NO [facility] Jun [...] Jun 09, 2018 03:48 PM VA-TOBACCO USE DATE PITTER NO [facility] Jun 09, 2018 03:48 PM VA-TOBACCO USE MED NO [facility] Jun 09, 2018 03:48 PM VA-TOBACCO USE WI 30 MIN OF WAKEUP [facility] Jun 09, 2018 03:48 PM VA-TOBACCO USER EVERY DAY [facility] Jun 20, 2017 07:53 AM CURRENT TOBACCO USER [facility] Jun 19, 2016 08:41 AM CURRENT TOBACCO USER [facility] Jun 21, 2015 08:15 AM CURRENT TOBACCO [facility] Mar 22, 2014 10:03 AM CURRENT TOBACCO [facility] Mar 25, 2013 11:01 AM CURRENT TOBACCO [facility] Feb 05, 2012 08:55 AM CURRENT TOBACCO US[facility] January 01, 2011 09:26 AM CURRENT TOBACCO [facility] Mar 07, 2010 10:02 AM CURRENT TOBACCO [facility] Feb 21, 2009 08:17 AM CURRENT TOBACCO USER [facility] Nov 06, 2007 10:02 AM CURRENT TOBACCO US[facility] January 02, 2007 10:33 AM CURRENT TOBACCO USER [facility] Advance Directives: All historical and current Section Date Range: From patient's date of to the date document was created. This section includes ALL of a patient's completed or amended [place] Advance and Rescinded Directives. The entries below indicate that a directive exists for the patient, but an actual copy is not included with this document. The data comes from all [place] facilities. Date Advance Directives Provider Source Mar 06, 2005 ADVANCE DIRECTIVE GANESH RODRIGUEZ [facility]
--- OUTSIDE RECORDS SUMMARY | 2022-04-02 16:05 | XMS_ITS | Encounter Summary ---
:1945 Author Organization Department [facility] Address [address] [place] [address] Care Team Providers Name Role Phone SAKSHI [...] MEDICARE MEDICARE PART Jun 25, PART B [id number] Saumya QUINONES PATIENT (WNR) (M) B 2011 78A 0 AVID MEDICARE MEDICARE PART Sep 25, PART A [id number] Saumya QUINONES PATIENT (WNR) (M) A 2009 78A 0 AVID MEDICARE MEDICARE PART Sep 25, PART A [id number] Saumya MICHELE ATTHOMAS (WNR) (M) A 2009 78A [id number] AVID MEDICARE MEDICARE PART Sep 25, PART B [id number] Saumya MICHELE ATIENT (WNR) (M) B 2009 [id number] [id number] AVID Selected Encounter This section includes the information on record at [place] for the Encounter. Date/Time Encounter Type Encounter Description Reason Provider Source Mar 21, 2021 01:00 Inpatient Visit ADMIN PAT ACTIVTIES SYS IRVING,DANNY-RICHARDK AM (MASNONCT) IHE Encounter Template Text not used by [facility] Plan of Treatment: Future Appointments (+ 6 months) and Future Tests (+/- 45 days) The Plan of Treatment section includes future care activities for the [facility] This section includes future appointments and future orders which are active, pending orscheduled.Future Appointments This section includes appointments that were scheduled to occur 6 months from the date of the Encounter, up to a maximum of 20 appointments. The data comes from all [place] treatment facilities. Appointment Date/Time Appointment Type Appointment Facili ty Name Mar 22, 2021 06:26 PM AMBULATORY - MEDICINE [facility] Mar 23, 2021 02:30 PM AMBULATORY - MEDICINE [facility] Mar 23, 2021 03:00 PM AMBULATORY - MEDICINE [facility] Mar 26, 2021 09:00 AM AMBULATORY - NONE [facility] Apr 02, 2021 01:13 PM AMBULATORY - MEDICINE [facility] May 08, 2021 02:00 PM AMBULATORY - NONE [facility] Jun 13, 2021 02:00 PM AMBULATORY - NONE [facility] Jun 18, 2021 12:45 PM AMBULATORY - NONE [facility] Jun 18, 2021 01:30 PM AMBULATORY - MEDICINE [facility] Jun 20, 2021 10:00 AM AMBULATORY - MEDICINE [facility] Jul 11, 2021 01:00 PM AMBULATORY - NONE [facility] Jul 26, 2021 09:00 AM AMBULATORY - MEDICINE [facility] Jul 26, 2021 10:30 AM AMBULATORY - NONE [facility] Aug 03, 2021 10:46 AM AMBULATORY - MEDICINE [facility] Aug 08, 2021 07:00 AM AMBULATORY - NONE [facility] Aug 10, 2021 10:30 AM AMBULATORY - NONE [facility] Sep 14, 2021 09:00 AM AMBULATORY - NONE [facility] Sep 21, 2021 09:45 AM AMBULATORY - MEDICINE [facility] Sep 21, 2021 10:00 AM AMBULATORY - MEDICINE [facility] Sep 21, 2021 10:30 AM AMBULATORY - MEDICINE [facility] Lab Results: +/- 30 days of the encounter This section includes the Chemistry and Hematology Lab Results on record with [place] for the patient. Radiology Reports and Pathology Reports are provided separately, in subsequent sections.Lab Results This section contains the Chemistry/Hematology Results that were resulted 30 days before or 30 daysafter the date of the Encounter. Date/Time Source Result Type Result - Unit Interpretation Reference Range Comment Mar 23, 2021 09:57 AM [facility] POTASSIUM Specim en Type: PLASMA No comment enter ed. Ordering Provid er: RODO PINTO Report Released Date/Time: Mar 23, 2021 09:33 AM Reporting Lab: [facility] [address] [facility] [address] Performing Lab: [facility] [address] [facility] [address] POTASSIUM 4.6 mmol/L 3.5-5.1 Mar 23, 2021 06:48 [facility] BASIC METABOLIC Specimen Type: PLASMA AM PANEL+MG Comment: Cancel lation Called to: Dora Mae MSA 03/23/2021 @ 0930 by AEK. 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 Ordering Provid er: RODO PINTO Report Released Date/Time: Mar 22, 2021 10:19 AM Reporting Lab: [facility] [address] [facility] [address] Performing Lab: [facility] [address] [facility] [address] CREATININE 1.3 mg/dL H 0.7-1.2 UREA NITROGEN 25 mg/dL 8-26 GLUCOSE 170 mg/dL H 74-100 SODIUM 139 mmol/L 136-145 POTASSIUM canc mmol/L 3.5-5.1 CHLORIDE 109 mmol/L H 98-107 CO2 23 mmol/L 22-29 CALCIUM 9.0 mg/dL 8.4-10.2 MAGNESIUM 2.2 mg/dL 1.6-2.6 ANION GAP 7 mmol/L 5-15 ESTIMATED GFR(eGFR) 54 L >60 Mar 23, 2021 06:48 AM [facility] MAGNESIUM Specim en Type: PLASMA No comment enter ed. Ordering Provid er: RODO PINTO Report Released Date/Time: Mar 22, 2021 10:19 AM Reporting Lab: [facility] [address] [facility] [address] Performing Lab: [facility] [address] [facility] [address] MAGNESIUM 2.2 mg/dL 1.6-2.6 Mar 23, 2021 06:13 [facility] FINGERSTICK GLUCOSE Speci men Type: BLOOD AM Comment: Abram rock Nurse Notified Ordering Provid er: GRANT,CARD II Report Released Date/Time: Mar 23, 2021 07:07 AM Reporting Lab: [facility] [address] [facility] [address] Performing Lab: [facility] [address] [facility] [address] FINGERSTICK GLUCOSE 168 mg/dL H 70-100 Mar 22, 2021 08:30 [facility] [place]ICK GLUCOSE Speci men Type: BLOOD PM Comment: VENOUS SAMPLE Ordering Provid er: GRANTCARD II Report Released Date/Time: Mar 23, 2021 08:23 AM Reporting Lab: [facility] [address] [facility] [address] Performing Lab: [facility] [address] [facility] [address] FINGERSTICK GLUCOSE 240 mg/dL H 70-100 Mar 22, 2021 04:28 [facility] FINGERSTICK GLUCOSE Speci men Type: BLOOD PM Comment: Abram Welch Notified Ordering Provid er: GRANTCARD II Report Released Date/Time: Mar 22, 2021 04:42 PM Reporting Lab: [facility] [address] [facility] [address] Performing Lab: [facility] [address] [facility] [address] FINGERSTICK GLUCOSE 197 mg/dL H 70-100 Mar 22, 2021 11:28 [facility] F[place]ER[place]ICK GLUCOSE Speci men Type: BLOOD AM Comment: Abram Welch Notified Ordering Provid er: DARLYN BURNS II Report Released Date/Time: Mar 22, 2021 12:14 PM Reporting Lab: [facility] [address] [facility] [address] Performing Lab: [facility] [address] [facility] [address] FINGERSTICK GLUCOSE 225 mg/dL H 70-100 Mar 22, 2021 06:13 [facility] FINGERSTICK GLUCOSE Speci men Type: BLOOD AM Comment: [place]am rock Nurse Notified Ordering Provid er: GRANTCARD II Report Released Date/Time: Mar 22, 2021 12:13 PM Reporting Lab: [facility] [address] [facility] [address] Performing Lab: [facility] [address] [facility] [address] FINGERSTICK GLUCOSE 155 mg/dL H 70-100 Mar 21, 2021 07:36 [facility] FINGERSTICK GLUCOSE Speci men Type: BLOOD PM Comment: [place]am rock Nurse Notified Ordering Provid er: GRANTCARD II Report Released Date/Time: Mar 21, 2021 08:53 PM Reporting Lab: [facility] [address] [facility] [address] Performing Lab: [facility] [address] [facility] [address] FINGERSTICK GLUCOSE 214 mg/dL H 70-100 Mar 21, 2021 04:00 [facility] FINGERSTICK GLUCOSE Speci men Type: BLOOD PM Comment: [place]am [place] Nurse Notified Ordering Provid er: DARLYN BURNS II Report Released Date/Time: Mar 21, 2021 04:27 PM Reporting Lab: [facility] [address] [facility] [address] Performing Lab: [facility] [address] [facility] [address] FINGERSTICK GLUCOSE 252 mg/dL H 70-100 Mar 21, 2021 11:43 [facility] FINGERSTICK GLUCOSE Speci men Type: BLOOD AM Comment: [place] Nurse Notified Ordering Provid er: DARLYN BURNS II Report Released Date/Time: Mar 21, 2021 12:08 PM Reporting Lab: [facility] [address] [facility] [address] Performing Lab: [facility] [address] [facility] [address] FINGERSTICK GLUCOSE 227 mg/dL H 70-100 Mar 21, 2021 06:45 AM [facility] ALBUMIN Specim en Type: PLASMA No comment enter ed. Ordering Provid er: LISBET [place] V Report Released Date/Time: Mar 20, 2021 10:27 AM Reporting Lab: [facility] [address] [facility] [address] Performing Lab: [facility] [address] [facility] [address] ALBUMIN 3.5 g/dL 3.5-5.2 Mar 21, 2021 06:45 [facility] BASIC METABOLIC Specimen Type: PLASMA AM PANEL+MG No comment enter ed. Ordering Provid er: RODO PINTO Report Released Date/Time: Mar 20, 2021 02:43 PM Reporting Lab: [facility] [address] [facility] [address] Performing Lab: [facility] [address] [facility] [address] CREATININE 1.5 mg/dL H 0.7-1.2 UREA NITROGEN 26 mg/dL 8-26 GLUCOSE 207 mg/dL H 74-100 SODIUM 140 mmol/L 136-145 POTASSIUM 4.4 mmol/L 3.5-5.1 CHLORIDE 109 mmol/L H 98-107 CO2 24 mmol/L 22-29 CALCIUM 9.0 mg/dL 8.4-10.2 MAGNESIUM 2.3 mg/dL 1.6-2.6 ANION GAP 7 mmol/L 5-15 ESTIMATED GFR(eGFR) 46 L >60 Mar 21, 2021 06:38 [facility] FINGERSTICK GLUCOSE Speci men Type: BLOOD AM Comment: Abram rock Nurse Notified Ordering Provid er: TEAM,CARD II Report Released Date/Time: Mar 21, 2021 07:23 AM Reporting Lab: [facility] [address] [facility] [address] Performing Lab: [facility] [address] [facility] [address] FINGER[place]ICK GLUCOSE 159 mg/dL H 70-100 Mar 20, 2021 08:27 [facility] FINGERSTICK GLUCOSE Speci men Type: BLOOD PM Comment: [place] Nurse Notified Ordering Provid er: TEAM,CARD II Report Released Date/Time: Mar 20, 2021 10:52 PM Reporting Lab: [facility] [address] [facility] [address] Performing Lab: [facility] [address] [facility] [address] F[place]ICK GLUCOSE 224 mg/dL H 70-100 Mar 20, 2021 05:06 [facility] FINGERSTICK GLUCOSE Speci men Type: BLOOD PM Comment: [place] Nurse Notified Ordering Provid er: TEAM,CARD II Report Released Date/Time: Mar 20, 2021 05:27 PM Reporting Lab: [facility] [address] [facility] [address] Performing Lab: [facility] [address] [facility] [address] F[place]ICK GLUCOSE 183 mg/dL H 70-100 Mar 20, 2021 08:16 [facility] BASIC METABOLIC Specimen Type: PLASMA AM PANEL+MG No comment enter ed. Ordering Provid er: TUCKER JULIAN Report Released Date/Time: Mar 15, 2021 02:20 PM Reporting Lab: [facility] [address] [facility] [address] Performing Lab: [facility] [address] [facility] [address] CREATININE 1.6 mg/dL H 0.7-1.2 UREA NITROGEN 31 mg/dL H 8-26 GLUCOSE 216 mg/dL H 74-100 SODIUM 142 mmol/L 136-145 POTASSIUM 4.6 mmol/L 3.5-5.1 CHLORIDE 106 mmol/L 98-107 CO2 25 mmol/L 22-29 CALCIUM 9.3 mg/dL 8.4-10.2 MAGNESIUM 2.2 mg/dL 1.6-2.6 ANION GAP 11 mmol/L 5-15 ESTIMATED GFR(eGFR) 43 L >60 Mar 20, 2021 08:16 [facility] COVID-19 DIAGNOSTIC Speci men Type: NASOPHARYNGEAL AM PANEL (CEPHEID) Comment: Wiley samuel GeneXpert ([id number]) Ordering Provid er: TUCKER JULIAN Report Released Date/Time: Mar 15, 2021 02:20 PM Reporting Lab: [facility] [address] Performing Lab: [facility] [address] COVID-19 (CEPHEID) Not Detected Not Dete cted Mar 05, 2021 09:42 [facility] BASIC METABOLIC Specimen Type: PLASMA AM PANEL+MG No comment enter ed. Ordering Provid er: VICENTE PELAEZ Report Released Date/Time: Feb 19, 2021 01:50 PM Reporting Lab: [facility] [address] Performing Lab: [facility] [address] CREATININE 1.4 mg/dL H 0.7-1.2 UREA NITROGEN [...] % 0 [place] 2020 01:00 /min mm[Hg] [facility] Social History: Smoking Status (Most current) and Tobacco Use (All prior to encounter date) This section includes the most current, and the historical, smoking and tobacco-related health factors from the [place] facility where the Encounter took place.Current Smoking Status This section includes the most current smoking, or tobacco-related health factor, from the [place] facility where the Encounter took place. Date/Time Current Smoking Status Comment Facility Mar 20, 2021 11:21 AM [facility] TOBACCO USE CURRENT NRT [facility] DECLINE Tobacco Use History This section includes a history of the smoking, or tobacco- related health factors, that were collected on or before the date of the Encounter. The data comes from the [place] facility where the Encounter took place. 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 [facility] Nov 15, 2020 10:00 AM [facility] USE [place] [facility] Nov 15, 2020 10:00 AM VA-TOBACCO USER EVERY DAY [facility] Jun 21, 2019 02:29 PM VA-TOBACCO USE 30 YEARS OR MORE [facility] Jun 21, 2019 02:29 PM VA-TOBACCO USE ADVICE [place] [facility] Jun 21, 2019 02:29 PM 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 [facility] Jun 21, 2019 02:29 PM VA-TOBACCO USE MED NO [place] [facility] Jun 21, 2019 02:29 PM VA-TOBACCO USE [place] 30 MIN OF WAKEUP [facility] Jun 21, 2019 02:29 PM VA-TOBACCO USER EVERY DAY [facility] Jun 09, 2018 03:48 PM VA-TOBACCO USE 30 YEARS OR MORE [facility] Jun 09, 2018 03:48 PM [facility]ACCO [place]VICE [place] [facility] Jun 09, 2018 03:48 PM 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 [facility] Jun 09, 2018 03:48 PM VA-TOBACCO USE MED NO [place] [facility] Jun 09, 2018 03:48 PM VA-TOBACCO USE [place] 30 MIN OF WAKEUP [facility] Jun 09, 2018 03:48 PM VA-TOBACCO USER EVERY DAY [facility] Jun 20, 2017 07:53 AM CURRENT TOBACCO USER [facility] Jun 19, 2016 08:41 AM CURRENT TOBACCO USER [facility] Jun 21, 2015 08:15 AM CURRENT TOBACCO USER [facility] Mar 22, 2014 10:03 AM CURRENT TOBACCO USER [facility] Mar 25, 2013 11:01 AM CURRENT TOBACCO USER [facility] Feb 05, 2012 08:55 AM CURRENT TOBACCO USER [facility] January 01, 2011 09:26 AM CURRENT TOBACCO USER [facility] Mar 07, 2010 10:02 AM CURRENT TOBACCO USER [facility] Feb 21, 2009 08:17 AM CURRENT TOBACCO USER [facility] Nov 06, 2007 10:02 AM CURRENT TOBACCO USER [facility] January 02, 2007 10:33 AM CURRENT TOBACCO USER [facility] Advance Directives: All historical and current Section Date Range: From patient's date of to the date document was created. This section includes ALL of a patient's completed or amended [place] Advance and Rescinded Directives. The entries below indicate that a directive exists for the patient, but an actual copy is not included with this document. The data comes from all [place] facilities. Date Advance Directives Provider Source Mar 06, 2005 ADVANCE DIRECTIVE MICHAELGANESH [facility] Encounter Notes: All associated encounter notes This section contains the clinical notes associated to the Encounter. Date/Time Encounter Note(s) Provider Source Mar 21, 2021 01:00 AM CRITICAL CARE UNIT NOTE: FLORENCIO RIOS [facility] LOCAL TITLE: ICCA INPATIENT FLOWSHEET STANDARD TITLE: CRITICAL CARE UNIT NOTE DATE OF NOTE: MAR 21, 2021@01:00 ENTRY DATE: MAR 22, 2021@14:33:13 AUTHOR: FLORENCIO RIOS EXP COSIGNER: URGENCY: STATUS: COMPLETED This is a place tapia only. Please see VISTA Im aging to view document. /billy/ FLORENCIO SYSTEM ICU DOCUMENT IMPORT Signed: 03/22/2021 14:33 Mar 21, 2021 01:00 AM CRITICAL CARE UNIT NOTE: FLORENCIO RIOS [facility] LOCAL TITLE: ICCA RESPIRATORY THERAPY FLOWSHEET STANDARD TITLE: CRITICAL CARE UNIT NOTE DATE OF NOTE: MAR 21, 2021@01:00 ENTRY DATE: MAR 22, 2021@15:03:16 AUTHOR: SYSTEM,FLORENCIO EXP COSIGNER: URGENCY: STATUS: COMPLETED This is a place tapia only. Please see VISTA Im aging to view document. /es/ [facility] SYSTEM ICU DOCUMENT IMPORT Signed: 03/22/2021 15:03
--- OUTSIDE RECORDS SUMMARY | 2022-04-02 16:05 | XMS_ITS | Encounter Summary ---
:1945 Author Organization Department [facility] Address [address] [place] [id number] Care Team Providers Name Role Phone CROUCH [...] MEDICARE MEDICARE PART Jun 25, PART B [id number] Saumya QUINONES PATIENT (WNR) (M) B 2011 78A 0 AVID MEDICARE MEDICARE PART Sep 25, PART A [id number] Saumya QUINONES PATIENT (WNR) (M) A 2009 78A 0 AVID MEDICARE MEDICARE PART Sep 25, PART A [id number] Saumya MICHELE (WNR) (M) A 2009 [id number] [id number] AVID MEDICARE MEDICARE PART Sep 25, PART B [id number] Saumya MICHELE (WNR) (M) B 2009 [id number] AVID Selected Encounter This section includes the information on record at AL for the Encounter. Date/Time Encounter Type Encounter Description Reason Provider Source Mar 21, 2021 12:00 AM Inpatient Visit EVENT (HISTORICAL) IHE Encounter Template Text not used by AL Plan of Treatment: Future Appointments (+ 6 months) and Future Tests (+/- 45 days) The Plan of Treatment section includes future care activities for the [facility] This section includes future appointments and future orders which are active, pending orscheduled.Future Appointments This section includes appointments that were scheduled to occur 6 months from the date of the Encounter, up to a maximum of 20 appointments. The data comes from all AL treatment facilities. Appointment Date/Time Appointment Type Appointment Facili ty Name Mar 22, 2021 06:26 PM AMBULATORY - MEDICINE [facility] Mar 23, 2021 02:30 PM AMBULATORY - MEDICINE [facility] Mar 23, 2021 03:00 PM AMBULATORY - MEDICINE [facility] Mar 26, 2021 09:00 AM AMBULATORY - NONE [facility] Apr 02, 2021 01:13 PM AMBULATORY - MEDICINE [facility] May 08, 2021 02:00 PM AMBULATORY - NONE [facility] Jun 13, 2021 02:00 PM AMBULATORY - NONE [facility] Jun 18, 2021 12:45 PM AMBULATORY - NONE [facility] Jun 18, 2021 01:30 PM AMBULATORY - MEDICINE [facility] Jun 20, 2021 10:00 AM AMBULATORY - MEDICINE [facility] Jul 11, 2021 01:00 PM AMBULATORY - NONE [facility] Jul 26, 2021 09:00 AM AMBULATORY - MEDICINE [facility] Jul 26, 2021 10:30 AM AMBULATORY - NONE [facility] Aug 03, 2021 10:46 AM AMBULATORY - MEDICINE [facility] Aug 08, 2021 07:00 AM AMBULATORY - NONE [facility] Aug 10, 2021 10:30 AM AMBULATORY - NONE [facility] Sep 14, 2021 09:00 AM AMBULATORY - NONE [facility] Sep 21, 2021 09:45 AM AMBULATORY - MEDICINE [facility] Sep 21, 2021 10:00 AM AMBULATORY - MEDICINE [facility] Sep 21, 2021 10:30 AM AMBULATORY - MEDICINE [facility] Lab Results: +/- 30 days of the encounter This section includes the Chemistry and Hematology Lab Results on record with AL for the patient. Radiology Reports and Pathology Reports are provided separately, in subsequent sections.Lab Results This section contains the Chemistry/Hematology Results that were resulted 30 days before or 30 daysafter the date of the Encounter. Date/Time Source Result Type Result - Unit Interpretation Reference Range Comment Mar 23, 2021 09:57 AM [facility] POTASSIUM Specim en Type: PLASMA No comment enter ed. Ordering Provid er: RODO PINTO Report Released Date/Time: Mar 23, 2021 09:33 AM Reporting Lab: [facility] [address] [facility] [address] Performing Lab: [facility] [address] [facility] [address] POTASSIUM 4.6 mmol/L 3.5-5.1 Mar 23, 2021 06:48 [facility] BASIC METABOLIC Specimen Type: PLASMA AM PANEL+MG Comment: Cancel lation Called to: Dora Mae MSA 03/23/2021 @ 0930 by AEK. 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 Ordering Provid er: RODO PINTO Report Released Date/Time: Mar 22, 2021 10:19 AM Reporting Lab: [facility] [address] [facility] [address] Performing Lab: [facility] [address] [facility] [address] CREATININE 1.3 mg/dL H 0.7-1.2 UREA NITROGEN 25 mg/dL 8-26 GLUCOSE 170 mg/dL H 74-100 SODIUM 139 mmol/L 136-145 POTASSIUM canc mmol/L 3.5-5.1 CHLORIDE 109 mmol/L H 98-107 CO2 23 mmol/L 22-29 CALCIUM 9.0 mg/dL 8.4-10.2 MAGNESIUM 2.2 mg/dL 1.6-2.6 ANION GAP 7 mmol/L 5-15 ESTIMATED GFR(eGFR) 54 L >60 Mar 23, 2021 06:48 AM [facility] MAGNESIUM Specim en Type: PLASMA No comment enter ed. Ordering Provid er: RODO PINTO Report Released Date/Time: Mar 22, 2021 10:19 AM Reporting Lab: [facility] [address] [facility] [address] Performing Lab: [facility] [address] [facility] [address] MAGNESIUM 2.2 mg/dL 1.6-2.6 Mar 23, 2021 06:13 [facility] FINGERSTICK GLUCOSE Speci men Type: BLOOD AM Comment: [place] Nurse Notified Ordering Provid er: GRANT,CARD II Report Released Date/Time: Mar 23, 2021 07:07 AM Reporting Lab: [facility] [address] [facility] [address] Performing Lab: [facility] [address] [facility] [address] FINGERSTICK GLUCOSE 168 mg/dL H 70-100 Mar 22, 2021 08:30 [facility] FINGERSTICK GLUCOSE Speci men Type: BLOOD PM Comment: VENOUS SAMPLE Ordering Provid er: DARLYN BURNS II Report Released Date/Time: Mar 23, 2021 08:23 AM Reporting Lab: [facility] [address] [facility] [address] Performing Lab: [facility] [address] [facility] [address] FINGERSTICK GLUCOSE 240 mg/dL H 70-100 Mar 22, 2021 04:28 [facility] F[place]ERSTICK GLUCOSE Speci men Type: BLOOD PM Comment: [place] Nurse Notified Ordering Provid er: DARLYN BURNS II Report Released Date/Time: Mar 22, 2021 04:42 PM Reporting Lab: [facility] [address] [facility] [address] Performing Lab: [facility] [address] [facility] [address] FINGERSTICK GLUCOSE 197 mg/dL H 70-100 Mar 22, 2021 11:28 [facility] FINGERSTICK GLUCOSE Speci men Type: BLOOD AM Comment: [place] Nurse Notified Ordering Provid er: GRANTCARD II Report Released Date/Time: Mar 22, 2021 12:14 PM Reporting Lab: [facility] [address] [facility] [address] Performing Lab: [facility] [address] [facility] [address] FINGERSTICK GLUCOSE 225 mg/dL H 70-100 Mar 22, 2021 06:13 [facility] FINGERSTICK GLUCOSE Speci men Type: BLOOD AM Comment: [place] Nurse Notified Ordering Provid er: GRANTCARD II Report Released Date/Time: Mar 22, 2021 12:13 PM Reporting Lab: [facility] [address] [facility] [address] Performing Lab: [facility] [address] [facility] [address] FINGERSTICK GLUCOSE 155 mg/dL H 70-100 Mar 21, 2021 07:36 [facility] F[place]ERSTICK GLUCOSE Speci men Type: BLOOD PM Comment: [place] Nurse Notified Ordering Provid er: GRANTCARD II Report Released Date/Time: Mar 21, 2021 08:53 PM Reporting Lab: [facility] [address] [place] [address] Performing Lab: [facility] [address] [facility] [address] FINGERSTICK GLUCOSE 214 mg/dL H 70-100 Mar 21, 2021 04:00 [facility] F[place]ERSTICK GLUCOSE Speci men Type: BLOOD PM Comment: [place] Nurse Notified Ordering Provid er: TEAM,CARD II Report Released Date/Time: Mar 21, 2021 04:27 PM Reporting Lab: [facility] [address] [facility] [address] Performing Lab: [facility] [address] [facility] [address] FINGER[place]ICK GLUCOSE 252 mg/dL H 70-100 Mar 21, 2021 11:43 [facility] F[place] GLUCOSE Speci men Type: BLOOD AM Comment: [place] Nurse Notified Ordering Provid er: GRANT,CARD II Report Released Date/Time: Mar 21, 2021 12:08 PM Reporting Lab: [facility] [place] [address] [facility] [address] [facility]forming [facility]: [facility] [address] F[place]ER[place]ICK GLUCOSE 227 mg/dL H 70-100 Mar 21, 2021 06:45 AM [facility] ALBUMIN Specim en Type: PLASMA No comment enter ed. Ordering Provid er: LISBET [place] V Report Released Date/Time: Mar 20, 2021 10:27 AM Reporting Lab: [facility] [address] [facility] [address] Performing Lab: [facility] [address] [facility] [address] ALBUMIN 3.5 g/dL 3.5-5.2 Mar 21, 2021 06:45 [facility] BASIC METABOLIC Specimen Type: PLASMA AM PANEL+MG No comment enter ed. Ordering Provid er: RODO PINTO Report Released Date/Time: Mar 20, 2021 02:43 PM Reporting Lab: [facility] [address] [facility] [address] Performing Lab: [facility] [address] [facility] [address] CREATININE 1.5 mg/dL H 0.7-1.2 UREA NITROGEN 26 mg/dL 8-26 GLUCOSE 207 mg/dL H 74-100 SODIUM 140 mmol/L 136-145 POTASSIUM 4.4 mmol/L 3.5-5.1 CHLORIDE 109 mmol/L H 98-107 CO2 24 mmol/L 22-29 CALCIUM 9.0 mg/dL 8.4-10.2 MAGNESIUM 2.3 mg/dL 1.6-2.6 ANION GAP 7 mmol/L 5-15 ESTIMATED GFR(eGFR) 46 L >60 Mar 21, 2021 06:38 [facility] F[place]ICK GLUCOSE Speci men Type: BLOOD AM Comment: [place] Nurse Notified Ordering Provid er: TEAM,CARD II Report Released Date/Time: Mar 21, 2021 07:23 AM Reporting Lab: [facility] [address] [facility] [address] Performing [facility]: [facility] [address] F[place] GLUCOSE 159 mg/dL H 70-100 Mar 20, 2021 08:27 [facility] [place] GLUCOSE Speci men Type: BLOOD PM Comment: [place] Nurse Notified Ordering Provid er: TEAM,CARD II Report Released Date/Time: Mar 20, 2021 10:52 PM Reporting Lab: [facility] [address] Performing Lab: [facility] [address] F[place] GLUCOSE 224 mg/dL H 70-100 Mar 20, 2021 05:06 [facility] [place] GLUCOSE Speci men Type: BLOOD PM Comment: [place] Nurse Notified Ordering Provid er: GRANT,CARD II Report Released Date/Time: Mar 20, 2021 05:27 PM Reporting Lab: [facility] [address] Performing Lab: [facility] [address] [place] GLUCOSE 183 mg/dL H 70-100 Mar 20, 2021 08:16 [facility] BASIC METABOLIC Specimen Type: PLASMA AM PANEL+MG No comment enter ed. Ordering Provid er: TUCKER JULIAN Report Released Date/Time: Mar 15, 2021 02:20 PM Reporting Lab: [facility] [address] Performing Lab: [facility] [address] CREATININE 1.6 mg/dL H 0.7-1.2 UREA NITROGEN 31 mg/dL H 8-26 GLUCOSE 216 mg/dL H 74-100 SODIUM 142 mmol/L 136-145 POTASSIUM 4.6 mmol/L 3.5-5.1 CHLORIDE 106 mmol/L 98-107 CO2 25 mmol/L 22-29 CALCIUM 9.3 mg/dL 8.4-10.2 MAGNESIUM 2.2 mg/dL 1.6-2.6 ANION GAP 11 mmol/L 5-15 ESTIMATED GFR(eGFR) 43 L >60 Mar 20, 2021 08:16 [facility] COVID-19 DIAGNOSTIC Speci men Type: NASOPHARYNGEAL AM PANEL (CEPHEID) Comment: Wiley samuel GeneXpert (618) Ordering Provid er: TUCKER JULIAN Report Released Date/Time: Mar 15, 2021 02:20 PM Reporting Lab: [facility] [address] Performing Lab: [facility] [address] COVID-19 (CEPHEID) Not Detected Not Dete cted Mar 05, 2021 09:42 [facility] BASIC METABOLIC Specimen Type: PLASMA AM PANEL+MG No comment enter ed. Ordering Provid er: VICENTE PELAEZ Report Released Date/Time: Feb 19, 2021 01:50 PM Reporting Lab: [facility] [address] Performing Lab : [facility] [address] CREATININE 1.4 mg/dL H 0.7-1.2 UREA NITROGEN [...] smoking and tobacco-related health factors from the AL facility where the Encounter took place.Current Smoking Status This section includes the most current smoking, or tobacco-related health factor, from the AL facility where the Encounter took place. Date/Time Current Smoking Status Comment Facility Mar 20, 2021 11:21 AM [facility] TOBACCO USE CURRENT NRT [facility] DECLINE Tobacco Use History This section includes a history of the smoking, or tobacco- related health factors, that were collected on or before the date of the Encounter. The data comes from the AL facility where the Encounter took place. Date/Time Smoking Status/Tobacco Use Comment [facility] it Nov 15, 2020 10:00 AM VA-TOBACCO DOESNT USE WI 30 MIN [facility] WAKEUP Nov 15, 2020 10:00 AM VA-TOBACCO USE 30 YEARS OR MORE [facility] Nov 15, 2020 10:00 AM VA-TOBACCO USE ADVICE [place] [facility] Nov 15, 2020 10:00 AM VA-TOBACCO USE CRYPTOGRAPHER NO [facility] Nov 15, 2020 10:00 AM VA-TOBACCO USE MED NO [place] [facility] Nov 15, 2020 10:00 AM VA-TOBACCO USER EVERY DAY [facility] Jun 21, 2019 02:29 PM VA-TOBACCO USE 30 YEARS OR MORE [facility] Jun 21, 2019 02:29 PM VA-TOBACCO USE ADVICE [place] [facility] Jun 21, 2019 02:29 PM VA-TOBACCO USE CRYPTOGRAPHER NO [facility] Jun 21, 2019 02:29 PM VA-TOBACCO USE MED NO [place] [facility] Jun 21, 2019 02:29 PM VA-TOBACCO USE [place] 30 MIN OF WAKEUP [facility] Jun 21, 2019 02:29 PM VA-TOBACCO USER EVERY DAY [facility] Jun 09, 2018 03:48 PM VA-TOBACCO USE 30 YEARS OR MORE [facility] Jun 09, 2018 03:48 PM VA-TOBACCO USE ADVICE [place] [facility] Jun 09, 2018 03:48 PM VA-TOBACCO USE CRYPTOGRAPHER NO [facility] Jun 09, 2018 03:48 PM VA-TOBACCO USE MED NO [place] [facility] Jun 09, 2018 03:48 PM VA-TOBACCO USE [place] 30 MIN OF WAKEUP [facility] Jun 09, 2018 03:48 PM VA-TOBACCO USER EVERY DAY [facility] Jun 20, 2017 07:53 AM CURRENT TOBACCO USER [facility] Jun 19, 2016 08:41 AM CURRENT TOBACCO USER [facility] Jun 21, 2015 08:15 AM CURRENT TOBACCO USER [facility] Mar 22, 2014 10:03 AM [facility] Mar 25, 2013 11:01 AM [facility] Feb 05, 2012 08:55 AM CURRENT TOBACCO USER [facility] January 01, 2011 09:26 AM CURRENT TOBACCO USER [facility] Mar 07, 2010 10:02 AM CURRENT TOBACCO USER [facility] Feb 21, 2009 08:17 AM CURRENT TOBACCO USER [facility] Nov 06, 2007 10:02 AM CURRENT TOBACCO USER [facility] January 02, 2007 10:33 AM CURRENT TOBACCO USER [facility] Advance Directives: All historical and current Section Date Range: From patient's date of to the date document was created. This section includes ALL of a patient's completed or amended AL Advance and Rescinded Directives. The entries below indicate that a directive exists for the patient, but an actual copy is not included with this document. The data comes from all AL facilities. Date Advance Directives Provider Source Mar 06, 2005 ADVANCE DIRECTIVE GANESH RODRIGUEZ [facility]
--- OUTSIDE RECORDS SUMMARY | 2022-04-02 16:05 | XMS_ITS ---
ANESTHESIA PRE/POST-OP CONSULT [facility] Encounter Summary Created on:March 22, 2021 Patient:PAUL MICHELE Sex:Male :1945 Author Organization Department [facility] Address [address] [place] [id number] Care Team Providers Name Role Phone SAKSHI [...] MEDICARE MEDICARE PART Jun 25, PART B [id number] Saumya QUINONES PATIENT (WNR) (M) B 2011 78A 0 AVID MEDICARE MEDICARE PART Sep 25, PART A [id number] Saumya QUINONES PATIENT (WNR) (M) A 2009 78A 0 AVID MEDICARE MEDICARE PART Sep 25, PART A [id number] Saumya MICHELE (WNR) (M) A 2009 78A [id number] AVID MEDICARE MEDICARE PART Sep 25, PART B [id number] Saumya MICHELE (WNR) (M) B 2009 78A [id number] AVID Selected Encounter This section includes the information on record at OR for the Encounter. Date/Time Encounter Type Encounter Description Reason Provider Source Mar 22, 2021 01:00 PM Inpatient Visit ANESTHESIA PRE/POST-OP CONSULT I[facility] Encounter Template Text not used by OR Plan of Treatment: Future Appointments (+ 6 months) and Future Tests (+/- 45 days) The Plan of Treatment section includes future care activities for the [facility] This section includes future appointments and [...] 26, 2021 09:00 AM AMBULATORY - NONE [facility] Apr 02, 2021 01:13 PM AMBULATORY - MEDICINE [facility] May 08, 2021 02:00 PM AMBULATORY - NONE [facility] Jun 13, 2021 02:00 PM AMBULATORY - NONE [facility] Jun 18, 2021 12:45 PM AMBULATORY - NONE [facility] Jun 18, 2021 01:30 PM AMBULATORY - MEDICINE [facility] Jun 20, 2021 10:00 AM AMBULATORY - MEDICINE [facility] Jul 11, 2021 01:00 PM AMBULATORY - NONE [facility] Jul 26, 2021 09:00 AM AMBULATORY - MEDICINE [facility] Jul 26, 2021 10:30 AM AMBULATORY - NONE [facility] Aug 03, 2021 10:46 AM AMBULATORY - MEDICINE [facility] Aug 08, 2021 07:00 AM AMBULATORY - NONE [facility] Aug 10, 2021 10:30 AM AMBULATORY - NONE [facility] Sep 14, 2021 09:00 AM AMBULATORY - NONE [facility] Sep 21, 2021 09:45 AM AMBULATORY [...] Range Comment Mar 23, 2021 09:57 AM [facility] POTASSIUM Specim en Type: PLASMA No comment enter ed. Ordering Provid er: RODO PINTO Report Released Date/Time: Mar 23, 2021 09:33 AM Reporting Lab: [facility] [address] [facility] [address] Performing Lab: [facility] [address] [facility] [address] POTASSIUM 4.6 mmol/L 3.5-5.1 Mar 23, 2021 06:48 [facility] BASIC METABOLIC Specimen Type: PLASMA AM PANEL+MG Comment: Cancel lation Called to: oDra Mae MSA 03/23/2021 @ 0930 by AEK. 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 Ordering Provid er: RODO PINTO Report Released Date/Time: Mar 22, 2021 10:19 AM Reporting Lab: [facility] [address] [facility] [address] Performing Lab: [facility] [address] [facility] [address] CREATININE 1.3 mg/dL H 0.7-1.2 UREA NITROGEN 25 mg/dL 8-26 GLUCOSE 170 mg/dL H 74-100 SODIUM 139 mmol/L 136-145 POTASSIUM canc mmol/L 3.5-5.1 CHLORIDE 109 mmol/L H 98-107 CO2 23 mmol/L 22-29 CALCIUM 9.0 mg/dL 8.4-10.2 MAGNESIUM 2.2 mg/dL 1.6-2.6 ANION GAP 7 mmol/L 5-15 ESTIMATED GFR(eGFR) 54 L >60 Mar 23, 2021 06:48 AM [facility] MAGNESIUM Specim en Type: PLASMA No comment enter ed. Ordering Provid er: RODO PINTO Report Released Date/Time: Mar 22, 2021 10:19 AM Reporting Lab: [facility] [address] [facility] [address] Performing Lab: [facility] [address] [facility] [address] MAGNESIUM 2.2 mg/dL 1.6-2.6 Mar 23, 2021 06:13 [facility] F[place] GLUCOSE Speci men Type: BLOOD AM Comment: [place] Nurse Notified Ordering Provid er: TEAM,CARD II Report Released Date/Time: Mar 23, 2021 07:07 AM Reporting Lab: [facility] [address] [facility] [address] Performing Lab: [facility] [address] [facility] [address] [place] GLUCOSE 168 mg/dL H 70-100 Mar 22, 2021 08:30 [facility] [place] GLUCOSE Speci men Type: BLOOD PM Comment: VENOUS SAMPLE Ordering Provid er: GRANTCARD II Report Released Date/Time: Mar 23, 2021 08:23 AM Reporting Lab: [facility] [address] [facility] [address] Performing Lab: [facility] [address] [facility] [address] [place] GLUCOSE 240 mg/dL H 70-100 Mar 22, 2021 04:28 [facility] [place] GLUCOSE Speci men Type: BLOOD PM Comment: [place] Nurse Notified Ordering Provid er: GRANTCARD II Report Released Date/Time: Mar 22, 2021 04:42 PM Reporting Lab: [facility] [address] [facility] [address] Performing Lab: [facility] [address] [facility] [address] [place] GLUCOSE 197 mg/dL H 70-100 Mar 22, 2021 11:28 [facility] [place] GLUCOSE Speci men Type: BLOOD AM Comment: [place] Nurse Notified Ordering Provid er: DARLYN BURNS II Report Released Date/Time: Mar 22, 2021 12:14 PM Reporting Lab: [facility] [address] [facility] [address] Performing Lab: [facility] [address] [facility] [address] [place] GLUCOSE 225 mg/dL H 70-100 Mar 22, 2021 06:13 [facility] [place] GLUCOSE Speci men Type: BLOOD AM Comment: [place] Nurse Notified Ordering Provid er: GRANTCARD II Report Released Date/Time: Mar 22, 2021 12:13 PM Reporting Lab: [facility] [address] [facility] [address] Performing Lab: [facility] [address] [facility] [address] [place] GLUCOSE 155 mg/dL H 70-100 Mar 21, 2021 07:36 [facility] [place] GLUCOSE Speci men Type: BLOOD PM Comment: [place] Nurse Notified Ordering Provid er: GRANTCARD II Report Released Date/Time: Mar 21, 2021 08:53 PM Reporting Lab: [facility] [address] [facility] [address] Performing Lab: [facility] [address] [facility] [address] [place] GLUCOSE 214 mg/dL H 70-100 Mar 21, 2021 04:00 [facility] [place] GLUCOSE Speci men Type: BLOOD PM Comment: [place] Nurse Notified Ordering Provid er: TEAM,CARD II Report Released Date/Time: Mar 21, 2021 04:27 PM Reporting Lab: [facility] [address] [facility] [address] Performing Lab: [facility] [address] [facility] [address] [place] GLUCOSE 252 mg/dL H 70-100 Mar 21, 2021 11:43 [facility] [place] GLUCOSE Speci men Type: BLOOD AM Comment: [place] Nurse Notified Ordering Provid er: TEAM,CARD II Report Released Date/Time: Mar 21, 2021 12:08 PM Reporting Lab: [facility] [address] [facility] [address] Performing Lab: [facility] [address] [facility] [address] [place] GLUCOSE 227 mg/dL H 70-100 Mar 21, 2021 06:45 AM [facility] ALBUMIN Specim en Type: PLASMA No comment enter ed. Ordering Provid er: LISBET WASHINGTON V Report Released Date/Time: Mar 20, 2021 10:27 AM Reporting Lab: [facility] [address] [facility] [address] Performing Lab: [facility] [address] [facility] [address] ALBUMIN 3.5 g/dL 3.5-5.2 Mar 21, 2021 06:45 [facility] BASIC METABOLIC Specimen Type: PLASMA AM PANEL+MG No comment enter ed. Ordering Provid er: RODO PINTO Report Released Date/Time: Mar 20, 2021 02:43 PM Reporting Lab: [facility] [address] [facility] [address] Performing Lab: [facility] [address] [facility] [address] CREATININE 1.5 mg/dL H 0.7-1.2 UREA NITROGEN 26 mg/dL 8-26 GLUCOSE 207 mg/dL H 74-100 SODIUM 140 mmol/L 136-145 POTASSIUM 4.4 mmol/L 3.5-5.1 CHLORIDE 109 mmol/L H 98-107 CO2 24 mmol/L 22-29 CALCIUM 9.0 mg/dL 8.4-10.2 MAGNESIUM 2.3 mg/dL 1.6-2.6 ANION GAP 7 mmol/L 5-15 ESTIMATED GFR(eGFR) 46 L >60 Mar 21, 2021 06:38 [facility] [place] GLUCOSE Speci men Type: BLOOD AM Comment: [place] Nurse Notified Ordering Provid er: TEAM,CARD II Report Released Date/Time: Mar 21, 2021 07:23 AM Reporting Lab: [facility] [address] [facility] [address] Performing Lab: [facility] [address] [place] GLUCOSE 159 mg/dL H 70-100 Mar 20, 2021 08:27 [facility] [place] GLUCOSE Speci men Type: BLOOD PM Comment: [place] Nurse Notified Ordering Provid er: TEAM,CARD II Report Released Date/Time: Mar 20, 2021 10:52 PM Reporting Lab: [facility] [address] [facility] [address] Performing Lab: [facility] [address] [place] GLUCOSE 224 mg/dL H 70-100 Mar 20, 2021 05:06 [facility] [place] GLUCOSE Speci men Type: BLOOD PM Comment: [place] Nurse Notified Ordering Provid er: TEAM,CARD II Report Released Date/Time: Mar 20, 2021 05:27 PM Reporting Lab: [facility] [address] [facility] [address] Performing Lab: [facility] [address] [facility] [address] [place] GLUCOSE 183 mg/dL H 70-100 Mar 20, 2021 08:16 [facility] BASIC METABOLIC Specimen Type: PLASMA AM PANEL+MG No comment enter ed. Ordering Provid er: TUCKER JULIAN Report Released Date/Time: Mar 15, 2021 02:20 PM Reporting Lab: [facility] [address] [facility] [address] Performing Lab: [facility] [address] CREATININE 1.6 mg/dL H 0.7-1.2 UREA NITROGEN 31 mg/dL H 8-26 GLUCOSE 216 mg/dL H 74-100 SODIUM 142 mmol/L 136-145 POTASSIUM 4.6 mmol/L 3.5-5.1 CHLORIDE 106 mmol/L 98-107 CO2 25 mmol/L 22-29 CALCIUM 9.3 mg/dL 8.4-10.2 MAGNESIUM 2.2 mg/dL 1.6-2.6 ANION GAP 11 mmol/L 5-15 ESTIMATED GFR(eGFR) 43 L >60 Mar 20, 2021 08:16 [facility] COVID-19 DIAGNOSTIC Speci men Type: NASOPHARYNGEAL AM PANEL (CEPHEID) Comment: Wiley samuel GeneXpert (618) Ordering Provid er: TUCKER JULIAN Report Released Date/Time: Mar 15, 2021 02:20 PM Reporting Lab: [facility] [address] Performing Lab: [facility] [phone] COVID-19 (CEPHEID) Not Detected Not Dete cted Mar 05, 2021 09:42 [facility] BASIC METABOLIC Specimen Type: PLASMA AM PANEL+MG No comment enter ed. Ordering Provid er: VICENTE PELAEZ Report Released Date/Time: Feb 19, 2021 01:50 PM Reporting Lab: [facility] [address] Performing Lab: [facility] [phone] CREATININE 1.4 mg/dL H 0.7-1.2 UREA NITROGEN [...] % 0 [place] 2020 08:55 /min mm[Hg] [facility] Social History: Smoking Status (Most [...] 11:21 AM VA-VAAES TOBACCO USE CURRENT NRT [facility] DECLINE Tobacco Use History This section includes a history of the smoking, or tobacco- related health factors, that were collected on or before the date of the Encounter. The data comes from the OR facility where the Encounter took place. Date/Time Smoking Status/Tobacco Use Comment [facility] it Nov 15, 2020 10:00 AM VA-TOBACCO DOESNT USE WI 30 MIN [facility] WAKEUP Nov 15, 2020 10:00 AM VA-TOBACCO USE 30 YEARS OR MORE [facility] Nov 15, 2020 10:00 AM VA-TOBACCO USE ADVICE [place] [facility] Nov 15, 2020 10:00 AM VA-TOBACCO USE CUSHION STUFFER NO [facility] Nov 15, 2020 10:00 AM VA-TOBACCO USE MED NO [place] [facility] Nov 15, 2020 10:00 AM VA-TOBACCO USER EVERY DAY [facility] Jun 21, 2019 02:29 PM VA-TOBACCO USE 30 YEARS OR MORE [facility] Jun 21, 2019 02:29 PM VA-TOBACCO USE ADVICE [place] [facility] Jun 21, 2019 02:29 PM VA-TOBACCO USE CUSHION STUFFER NO [facility] Jun 21, 2019 02:29 PM VA-TOBACCO USE MED NO [place] [facility] Jun 21, 2019 02:29 PM VA-TOBACCO USE WI 30 MIN OF WAKEUP [facility] Jun 21, 2019 02:29 PM VA-TOBACCO USER EVERY DAY [facility] Jun 09, 2018 03:48 PM VA-TOBACCO USE 30 YEARS OR MORE [facility] Jun 09, 2018 03:48 PM VA-TOBACCO USE ADVICE [place] [facility] Jun 09, 2018 03:48 PM VA-TOBACCO USE CUSHION STUFFER NO [facility] Jun 09, 2018 03:48 PM VA-TOBACCO USE MED NO [place] [facility] Jun 09, 2018 03:48 PM VA-TOBACCO USE WI 30 MIN OF WAKEUP [facility] Jun 09, 2018 03:48 PM VA-TOBACCO USER EVERY DAY [facility] Jun 20, 2017 07:53 AM CURRENT TOBACCO USER [facility] Jun 19, 2016 08:41 AM CURRENT TOBACCO USER [facility] Jun 21, 2015 08:15 AM CURRENT TOBACCO USER [facility] Mar 22, 2014 10:03 AM CURRENT TOBACCO USER [facility] Mar 25, 2013 11:01 AM CURRENT TOBACCO USER [facility] Feb 05, 2012 08:55 AM CURRENT TOBACCO USER [facility] January 01, 2011 09:26 AM CURRENT TOBACCO USER [facility] Mar 07, 2010 10:02 AM CURRENT TOBACCO USER [facility] Feb 21, 2009 08:17 AM CURRENT TOBACCO USER [facility] Nov 06, 2007 10:02 AM CURRENT TOBACCO USER [facility] January 02, 2007 10:33 AM CURRENT TOBACCO USER [facility] Advance Directives: All historical and current Section Date Range: From patient's date of to the date document was created. This section includes ALL of a patient's completed or amended OR Advance and Rescinded Directives. The entries below indicate that a directive exists for the patient, but an actual copy is not included with this document. The data comes from all OR facilities. Date Advance Directives Provider Source Mar 06, 2005 ADVANCE DIRECTIVE MICHAELGANESH [facility] Encounter Notes: All associated encounter notes This section contains the clinical notes associated to the Encounter. Date/Time Encounter Note(s) Provider Source Mar 22, 2021 11:09 AM ANESTHESIOLOGY CONSULT: RICCI GONZALEZ [place] [facility] LOCAL TITLE: ANESTHESIA PREOPERATIVE ASSESSMENT CONSULT STANDARD [...] DM2, HTN, COPD, tobacco use, CAD s/p NM with angioplasty to RCA in 1993, s/p 3-vessel CABG 10/2010, ICM with single chamber ICD implanted 2011 for primary prevention. In December 2020, yuliana kennedy was admitted to OSH with multiple ICD shocks (6) and found to be in atria l fibrillation - AC started. ----Allergies [facility] LISINOPRIL ----VITAL SIGNS HR: 68 (03/22/2021 08:55) [...] 1993 CABG x3(2010) ICD implant 02/04/12 (Anes: GETA 70mcg propofo l) ----SOCIAL HISTORY Tobacco: Former Alcohol: No Substance use: No ----PAST MEDICAL HISTORY 1. Status post left inguinal hernia repair 2. Chronic low back pain 3. Thrombocytopenia 4. Chronic obstructive pulmonary disease - FEV1/FVC (05/2011) 2.47/3.46. FEV1 58% pred. FEV1% 70. 5. History of adenomatous polyp of colon 6. Type 2 diabetes mellitus 7. Hypertension 8. Coronary artery disease - S/P inferior NM in 1993. - S/P atherectomy RCA in [...] EP (Worsening Scr ) - CAD s/p NM with angioplasty to RCA in 1993, s/ p 3-vessel CABG 10/2010 - HFrEF (echo EF ~23% at [facility] 12/2020): Chronic - Cardiac Implanted Electrical Device (CIED): PATTI Black ICM with single chamber ICD implanted 2011 [...] in patient Hypoglycemia protocol and Sliding scale. [employer] Empagliflozin 25 mg 1 table qday, Metformin 1000 mg BID, Glipizide 20 mg BID and Semaglutide weekly. HEMOGLOBIN A1C 10.0 H (02/19) INFECTIOUS DISEASE - COVID-19 vaccine complete: Immunization Series Date Facility Reaction Info COVID-19 ([employer]), MRNA, LNP-S, P* 2 11/04/2020 [place] 1 10/14/2020 [place]* 15-point review of systems completed and negativ [...] 12) GLUCOSE SOLN (INPT) LIQUID 36ML-67.5ML PO TN N ACTIVE Instructions too long. See order [...] 60.0 PF L/SEC 8.230 4.680 56.9 5.26 [id number] L/SEC 3.636 2.040 56.1 1.97 FEV1/FVC % 72 AFTER BRONCHODILATOR FVC L 5.29 3.95 74.7 FEV1 L 4.00 2.93 73.3 PF L/SEC 8.230 7.920 96.2 5.26 BBN12-18 L/SEC 3.636 2.280 62.7 1.97 FEV1/FVC % [...] anesthetic preparation and risk discu ssed: - GETA - A-line - Anesthesia team - IV access - Monitoring - Positioning - Pre/post op expectations ----ASSESSMENT/PLAN Yes-History and physical: 03/22/21 cardiology inp t N/A-Antibiotics ordered: not found-Type & Screen/Cross This is a 75 y/o undergoing evaluation for cardi oversion w/ PMH as listed above. The risks pertaining to anesthesia and flynn rgery are outlined below. 1. Cardiac: Hx of CAD s/p NM with angioplasty to RCA in 1993, s/p 3-vessel CABG 10/2010, AF on AC, HFrEF (echo EF ~23%) Anesthesia to be aware, monitor hemodynamics hugo sely perioperatively and maintain euvolemic state as tolerated. Consider post-op troponins/EKG as needed. 2. Pulmonary: Hx of moderate COPD and elevated B NM (30.2). - Anesthesia to be aware, risk [...] by anesthesia an d surgical teams on DOS. /billy/ RICCI GONZALEZ NP NURSE PRACTITIONER Signed: 03/22/2021 12:03
--- OUTSIDE RECORDS SUMMARY | 2022-04-02 16:05 | XMS_ITS ---
DAILY HOSPITALIZATION [facility] Encounter Summary Created on:March 20, 2021 Patient:PAUL MICHELE Sex:Male :1945 [address] Organization Department [facility] Address [address] [place] [address] Care Team Providers Name Role Phone WILLA [...] MEDICARE MEDICARE PART Jun 25, PART B [id number] Saumya QUINONES PATIENT (WNR) (M) B 2011 78A 0 AVID MEDICARE MEDICARE PART Sep 25, PART A [id number] Saumya QUINONES PATIENT (WNR) (M) A 2009 78A 0 AVID MEDICARE MEDICARE PART Sep 25, PART A [id number] Saumya MICHELE (WNR) (M) A 2009 78A [id number] AVID MEDICARE MEDICARE PART Sep 25, PART B [id number] Samuya MICHELE ATTHOMAS (WNR) (M) B 2009 [id number] AVID Selected Encounter This section includes the information on record at [place] for the Encounter. Date/Time Encounter Type Encounter Description Reason Provider Source Mar 20, 2021 Inpatient Visit DAILY HOSPITALIZATION LINDA SMITH 11:21 AM DATA A E Encounter Template Text not used by [place] Plan of Treatment: Future Appointments (+ 6 months) and Future Tests (+/- 45 days) The Plan of Treatment section includes [facility] care activities for the [facility] [place] [facility] This section includes future appointments and future orders which are active, pending orscheduled.Future Appointments This section includes appointments that were scheduled to occur 6 months from the date of the Encounter, up to a maximum of 20 appointments. The data comes from all [place] treatment facilities. Appointment Date/Time Appointment Type Appointment Facili ty Name Mar 22, 2021 06:26 PM AMBULATORY - MEDICINE [facility] Mar 23, 2021 02:30 PM AMBULATORY - MEDICINE [facility] Mar 23, 2021 03:00 PM AMBULATORY - MEDICINE [facility] Mar 26, 2021 09:00 AM [facility]ORY - [facility] Apr 02, 2021 01:13 PM AMBULATORY - MEDICINE [facility] May 08, 2021 02:00 PM [facility]UL[facility]ORY - [facility] Jun 13, 2021 02:00 PM [facility]ORY - [facility] Jun 18, 2021 12:45 PM [facility]ORY - [facility] Jun 18, 2021 01:30 PM AMBULATORY - MEDICINE [facility] Jun 20, 2021 10:00 AM AMBULATORY - MEDICINE [facility] Jul 11, 2021 01:00 PM [facility]ORY - [facility] Jul 26, 2021 09:00 AM AMBULATORY - MEDICINE [facility] Jul 26, 2021 10:30 AM [facility]ORY - [facility] Aug 03, 2021 10:46 AM AMBULATORY - MEDICINE [facility] Aug 08, 2021 07:00 AM [facility] - [facility] Aug 10, 2021 10:30 AM [facility]ORY - [facility] Sep 14, 2021 09:00 AM [facility]ORY - [facility] Lab Results: +/- 30 days of the encounter This section includes the Chemistry and Hematology Lab Results on record with [place] for the patient. Radiology Reports and Pathology Reports are provided separately, in subsequent sections.Lab Results This section contains the Chemistry/Hematology Results that were resulted 30 days before or 30 daysafter the date of the Encounter. Date/Time Source Result Type Result - Unit Interpretation Reference Range Comment Mar 23, 2021 09:57 AM [facility] POTASSIUM Specim en Type: PLASMA No comment enter ed. Ordering Provid er: RODO PINTO Report Released Date/Time: Mar 23, 2021 09:33 AM Reporting Lab: [facility] [address] [facility] [address] Performing Lab: [facility] [address] [facility] [address] POTASSIUM 4.6 mmol/L 3.5-5.1 Mar 23, 2021 06:48 [facility] BASIC METABOLIC Specimen Type: PLASMA AM PANEL+MG Comment: Cancel lation Called to: Dora Mae, ROSANGELA 03/23/2021 @ 0930 by AEK. 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 Ordering Provid er: RODO PINTO Report Released Date/Time: Mar 22, 2021 10:19 AM Reporting Lab: [facility] [address] [facility] [address] Performing Lab: [facility] [address] [facility] [address] CREATININE 1.3 mg/dL H 0.7-1.2 UREA NITROGEN 25 mg/dL 8-26 GLUCOSE 170 mg/dL H 74-100 SODIUM 139 mmol/L 136-145 POTASSIUM canc mmol/L 3.5-5.1 CHLORIDE 109 mmol/L H 98-107 CO2 23 mmol/L 22-29 CALCIUM 9.0 mg/dL 8.4-10.2 MAGNESIUM 2.2 mg/dL 1.6-2.6 ANION GAP 7 mmol/L 5-15 ESTIMATED GFR(eGFR) 54 L >60 Mar 23, 2021 06:48 AM [facility] MAGNESIUM Specim en Type: PLASMA No comment enter ed. Ordering Provid er: RODO PINTO Report Released Date/Time: Mar 22, 2021 10:19 AM Reporting Lab: [facility] [address] [facility] [address] Performing Lab: [facility] [address] [facility] [address] MAGNESIUM 2.2 mg/dL 1.6-2.6 Mar 23, 2021 06:13 [facility] FINGERSTICK GLUCOSE Speci men Type: BLOOD AM Comment: [place] Nurse Notified Ordering Provid er: DARLYN BURNS II Report Released Date/Time: Mar 23, 2021 07:07 AM Reporting Lab: [facility] [address] [facility] [address] Performing Lab: [facility] [address] [facility] [address] FINGERSTICK GLUCOSE 168 mg/dL H 70-100 Mar 22, 2021 08:30 [facility] F[place]ER[place]ICK GLUCOSE Speci men Type: BLOOD PM Comment: VENOUS SAMPLE Ordering Provid er: DARLYN BURNS II Report Released Date/Time: Mar 23, 2021 08:23 AM Reporting Lab: [facility] [address] [facility] [address] Performing Lab: [facility] [address] [facility] [address] FINGERSTICK GLUCOSE 240 mg/dL H 70-100 Mar 22, 2021 04:28 [facility] F[place] GLUCOSE Speci men Type: BLOOD PM Comment: [place] Nurse Notified Ordering Provid er: GRANTCARD II Report Released Date/Time: Mar 22, 2021 04:42 PM Reporting Lab: [facility] [address] [facility] [address] Performing Lab: [facility] [address] [facility] [address] FINGERSTICK GLUCOSE 197 mg/dL H 70-100 Mar 22, 2021 11:28 [facility] FINGERSTICK GLUCOSE Speci men Type: BLOOD AM Comment: Abram Welch Notified Ordering Provid er: GRANTCARD II Report Released Date/Time: Mar 22, 2021 12:14 PM Reporting Lab: [facility] [address] [facility] [address] Performing Lab: [facility] [address] [facility] [address] FINGERSTICK GLUCOSE 225 mg/dL H 70-100 Mar 22, 2021 06:13 [facility] F[place]ER[place]ICK GLUCOSE Speci men Type: BLOOD AM Comment: [place] Nurse Notified Ordering Provid er: GRANTCARD II Report Released Date/Time: Mar 22, 2021 12:13 PM Reporting Lab: [facility] [address] [facility] [address] Performing Lab: [facility] [address] [facility] [address] FINGERSTICK GLUCOSE 155 mg/dL H 70-100 Mar 21, 2021 07:36 [facility] FINGERSTICK GLUCOSE Speci men Type: BLOOD PM Comment: [place] Nurse Notified Ordering Provid er: DARLYN BURNS II Report Released Date/Time: Mar 21, 2021 08:53 PM Reporting Lab: [facility] [address] [facility] [address] Performing Lab: [facility] [address] [facility] [address] FINGERSTICK GLUCOSE 214 mg/dL H 70-100 Mar 21, 2021 04:00 [facility] FINGERSTICK GLUCOSE Speci men Type: BLOOD PM Comment: [place] Nurse Notified Ordering Provid er: DARLYN BURNS II Report Released Date/Time: Mar 21, 2021 04:27 PM Reporting Lab: [facility] [address] [facility] [address] Performing Lab: [facility] [address] [facility] [address] FINGERSTICK GLUCOSE 252 mg/dL H 70-100 Mar 21, 2021 11:43 [facility] F[place]ERSTICK GLUCOSE Speci men Type: BLOOD AM Comment: [place] Nurse Notified Ordering Provid er: DARLYN BURNS II Report Released Date/Time: Mar 21, 2021 12:08 PM Reporting Lab: [facility] [address] [facility] [address] Performing Lab: [facility] [address] [facility] [address] FINGERSTICK GLUCOSE 227 mg/dL H 70-100 Mar 21, 2021 06:45 AM [facility] ALBUMIN Specim en Type: PLASMA No comment enter ed. Ordering Provid er: LISBET WASHINGTON V Report Released Date/Time: Mar 20, 2021 10:27 AM Reporting Lab: [facility] [address] [facility] [address] Performing Lab: [facility] [address] [facility] [address] ALBUMIN 3.5 g/dL 3.5-5.2 Mar 21, 2021 06:45 [facility] BASIC METABOLIC Specimen Type: PLASMA AM PANEL+MG No comment enter ed. Ordering Provid er: RODO PINTO S Report Released Date/Time: Mar 20, 2021 02:43 PM Reporting Lab: [facility] [address] [facility] [address] Performing Lab: [facility] [address] [facility] [address] CREATININE 1.5 mg/dL H 0.7-1.2 UREA NITROGEN 26 mg/dL 8-26 GLUCOSE 207 mg/dL H 74-100 SODIUM 140 mmol/L 136-145 POTASSIUM 4.4 mmol/L 3.5-5.1 CHLORIDE 109 mmol/L H 98-107 CO2 24 mmol/L 22-29 CALCIUM 9.0 mg/dL 8.4-10.2 MAGNESIUM 2.3 mg/dL 1.6-2.6 ANION GAP 7 mmol/L 5-15 ESTIMATED GFR(eGFR) 46 L >60 Mar 21, 2021 06:38 [facility] FINGERSTICK GLUCOSE Speci men Type: BLOOD AM Comment: [place] Nurse Notified Ordering Provid er: GRANT,CARD II Report Released Date/Time: Mar 21, 2021 07:23 AM Reporting Lab: [facility] [address] [facility] [address] Performing Lab: [facility] [address] [facility] [address] FINGERSTICK GLUCOSE 159 mg/dL H 70-100 Mar 20, 2021 08:27 [facility] F[place]ER[place] GLUCOSE Speci men Type: BLOOD PM Comment: [place] Nurse Notified Ordering Provid er: GRANT,CARD II Report Released Date/Time: Mar 20, 2021 10:52 PM Reporting Lab: [facility] [address] [facility] [address] Performing Lab: [facility] [address] [facility] [address] FINGERSTICK GLUCOSE 224 mg/dL H 70-100 Mar 20, 2021 05:06 [facility] FINGERSTICK GLUCOSE Speci men Type: BLOOD PM Comment: [place] Nurse Notified Ordering Provid er: TEAM,CARD II Report Released Date/Time: Mar 20, 2021 05:27 PM Reporting Lab: [facility] [address] [facility] [address] Performing Lab: [facility] [address] [facility] [address] [place] GLUCOSE 183 mg/dL H 70-100 Mar 20, 2021 08:16 [facility] BASIC METABOLIC Specimen Type: PLASMA AM PANEL+MG No comment enter ed. Ordering Provid er: TUCKER JULIAN Report Released Date/Time: Mar 15, 2021 02:20 PM Reporting Lab: [facility] [address] [facility] [address] Performing Lab: [facility] [address] [facility] [address] CREATININE 1.6 mg/dL H 0.7-1.2 UREA NITROGEN 31 mg/dL H 8-26 GLUCOSE 216 mg/dL H 74-100 SODIUM 142 mmol/L 136-145 POTASSIUM 4.6 mmol/L 3.5-5.1 CHLORIDE 106 mmol/L 98-107 CO2 25 mmol/L 22-29 CALCIUM 9.3 mg/dL 8.4-10.2 MAGNESIUM 2.2 mg/dL 1.6-2.6 ANION GAP 11 mmol/L 5-15 ESTIMATED GFR(eGFR) 43 L >60 Mar 20, 2021 08:16 [facility] COVID-19 DIAGNOSTIC Speci men Type: NASOPHARYNGEAL AM PANEL (CEPHEID) Comment: Wiley samuel GeneXpert ([id number]) Ordering Provid er: TUCKER JULIAN Report Released Date/Time: Mar 15, 2021 02:20 PM Reporting Lab: [facility] [address] Performing Lab: [facility] [address] COVID-19 (CEPHEID) Not Detected Not Dete cted Mar 05, 2021 09:42 [facility] BASIC METABOLIC Specimen Type: PLASMA AM PANEL+MG No comment enter ed. Ordering Provid er: VICENTE PELAEZ Report Released Date/Time: Feb 19, 2021 01:50 PM Reporting Lab: [facility] [address] Performing Lab: [facility] [address] CREATININE 1.4 mg/dL H 0.7-1.2 UREA NITROGEN 22 mg/dL 8-26 GLUCOSE 241 mg/dL H 74-100 SODIUM 139 mmol/L 136-145 POTASSIUM 4.6 mmol/L 3.5-5.1 CHLORIDE 105 mmol/L 98-107 CO2 24 mmol/L 22-29 CALCIUM 9.1 mg/dL 8.4-10.2 MAGNESIUM 2.1 mg/dL 1.6-2.6 ANION GAP 10 mmol/L 5-15 ESTIMATED GFR(eGFR) 50 L >60 Feb 19, 2021 12:03 PM [facility] AST/SGOT Specim en Type: PLASMA No comment enter ed. Ordering Provid er: SAKSHI CROUCH Report Released Date/Time: January 17, 2021 05:13 PM Reporting Lab: [facility] [address] Performing Lab: [facility] [address] AST/SGOT 28 U/L <34 Feb 19, 2021 12:03 PM [facility] ALT/SGPT Specim en Type: PLASMA No comment enter ed. Ordering Provid er: SAKSHI CROUCH Report Released Date/Time: January 17, 2021 05:13 PM Reporting Lab: [facility] [address] [facility] [address] Performing Lab: [facility] [address] [facility] [address] ALT/SGPT 32 U/L <55 Feb 19, 2021 [facility] CREATININE(INCLUDES EGFR) Sp ecimen Type: PLASMA 12:03 PM No comment enter ed. Ordering Provid er: SAKSHI CROUCH Report Released Date/Time: January 17, 2021 05:13 PM Reporting Lab: [facility] [address] [facility] [address] Performing Lab: [facility] [address] [facility] [address] CREATININE 1.4 mg/dL H 0.7-1.2 ESTIMATED GFR(eGFR) 50 L >60 Feb 19, 2021 12:03 PM [facility] POTASSIUM Specim en Type: PLASMA No comment enter ed. Ordering Provid er: SAKSHI CROUCH Report Released Date/Time: January 17, 2021 05:13 PM Reporting Lab: [facility] [address] [facility] [address] Performing Lab: [facility] [address] [facility] [address] POTASSIUM 4.2 mmol/L 3.5-5.1 Feb 19, 2021 12:03 PM [facility] HEMOGLOBIN A1C Specim en Type: BLOOD No comment enter ed. Ordering Provid er: SAKSHI CROUCH Report Released Date/Time: January 17, 2021 05:13 PM Reporting Lab: [facility] [address] [facility] [address] Performing Lab: [facility] [address] [facility] [address] HEMOGLOBIN A1C 10.0 H 4.0-6.0 Social History: Smoking Status (Most current) and Tobacco Use (All prior to encounter date) This section includes the most current, and the historical, smoking and tobacco-related health factors from the [place] facility where the Encounter took place.Current Smoking Status This section includes the most current smoking, or tobacco-related health factor, from the [place] facility where the Encounter took place. Date/Time Current Smoking Status Comment Facility Mar 20, 2021 11:21 AM [place]-[facility] TOBACCO USE CURRENT NRT [facility] DECLINE Tobacco Use History This section includes a history of the smoking, or tobacco- related health factors, that were collected on or before the date of the Encounter. The data comes from the [place] facility where the Encounter took place. Date/Time Smoking Status/Tobacco Use Comment Facil ity Nov 15, 2020 10:00 AM [place]-TOBACCO DOESNT USE WI 30 MIN [facility] WAKEUP Nov 15, 2020 10:00 AM VA-TOBACCO USE 30 YEARS OR MORE [facility] Nov 15, 2020 10:00 AM VA-TOBACCO USE ADVICE [facility] [facility] Nov 15, 2020 10:00 AM VA-TOBACCO USE HAND HEEL SEAT FITTER NO [facility] Nov 15, 2020 10:00 AM VA-TOBACCO USE MED NO [place] [facility] Nov 15, 2020 10:00 AM VA-TOBACCO USER EVERY DAY [facility] Jun 21, 2019 02:29 PM VA-TOBACCO USE 30 YEARS OR MORE [facility] Jun 21, 2019 02:29 PM VA-TOBACCO USE ADVICE [place] [facility] Jun 21, 2019 02:29 PM VA-TOBACCO USE HAND HEEL SEAT FITTER NO [facility] Jun 21, 2019 02:29 PM VA-TOBACCO USE MED NO [place] [facility] Jun 21, 2019 02:29 PM VA-TOBACCO USE [place] 30 MIN OF WAKEUP [facility] Jun 21, 2019 02:29 PM VA-TOBACCO USER EVERY DAY [facility] Jun 09, 2018 03:48 PM VA-TOBACCO USE 30 YEARS OR MORE [facility] Jun 09, 2018 03:48 PM VA-TOBACCO USE ADVICE [place] [facility] Jun 09, 2018 03:48 PM VA-TOBACCO USE HAND HEEL SEAT FITTER NO [facility] Jun 09, 2018 03:48 PM VA-TOBACCO USE MED NO [place] [facility] Jun 09, 2018 03:48 PM VA-TOBACCO USE [place] 30 MIN OF WAKEUP [facility] Jun 09, 2018 03:48 PM VA-TOBACCO USER EVERY DAY [facility] Jun 20, 2017 07:53 AM [facility] Jun 19, 2016 08:41 AM CURRENT [facility]BACCO USER [facility] Jun 21, 2015 08:15 AM CURRENT TOBACCO USER [facility] Mar 22, 2014 10:03 AM CURRENT TOBACCO USER [facility] Mar 25, 2013 11:01 AM CURRENT TOBACCO USER [facility] Feb 05, 2012 08:55 AM CURRENT TOBACCO USER [facility] January 01, 2011 09:26 AM CURRENT TOBACCO USER [facility] Mar 07, 2010 10:02 AM CURRENT TOBACCO USER [facility] Feb 21, 2009 08:17 AM CURRENT TOBACCO USER [facility] Nov 06, 2007 10:02 AM CURRENT TOBACCO USER [facility] January 02, 2007 10:33 AM CURRENT TOBACCO USER [facility] Advance Directives: All historical and current Section Date Range: From patient's date of to the date document was created. This section includes ALL of a patient's completed or amended [place] Advance and Rescinded Directives. The entries below indicate that a directive exists for the patient, but an actual copy is not included with this document. The data comes from all [place] facilities. Date Advance Directives Provider Source Mar 06, 2005 ADVANCE DIRECTIVE GANESH RODRIGUEZ [facility]
--- OUTSIDE RECORDS SUMMARY | 2022-04-02 16:05 | XMS_ITS ---
DAILY HOSPITALIZATION DATA [facility] Encounter Summary Created on:March 22, 2021 Patient:PAUL MICHELE Sex:Male :1945 Author Organization Department [facility] Address [address] [place] [id number] Care Team Providers Name Role Phone WILLA [...] MEDICARE MEDICARE PART Jun 25, PART B [id number] Saumya QUINONES PATIENT (WNR) (M) B 2011 78A 0 AVID MEDICARE MEDICARE PART Sep 25, PART A [id number] Saumya QUINONES PATIENT (WNR) (M) A 2009 78A 0 AVID MEDICARE MEDICARE PART Sep 25, PART A [id number] Saumya MICHELE (WNR) (M) A 2009 [id number] AVID MEDICARE MEDICARE PART Sep 25, PART B [id number] Saumya MICHELE (WNR) (M) B 2009 [id number] AVID Selected Encounter This section includes the information on record at [facility] for the Encounter. Date/Time Encounter Type Encounter Description Reason Provider Source Mar 22, 2021 Inpatient Visit DAILY HOSPITALIZATION DANI LANDRY 05:14 PM DATA [facility] Encounter Template Text not used by [facility] Plan of Treatment: Future Appointments (+ 6 months) and Future Tests (+/- 45 days) The Plan of Treatment section includes future care activities for the [facility] This section includes future appointments and future orders which are active, pending orscheduled.Future Appointments This section includes appointments that were scheduled to occur 6 months from the date of the Encounter, up to a maximum of 20 appointments. The data comes from all [facility] treatment facilities. Appointment Date/Time Appointment Type Appointment Facili ty Name Mar 23, 2021 02:30 PM AMBULATORY - MEDICINE [facility] Mar 23, 2021 03:00 PM AMBULATORY - MEDICINE [facility] Mar 26, 2021 09:00 AM AMBULATORY - NONE [facility] Apr 02, 2021 01:13 PM AMBULATORY - MEDICINE [facility] May 08, 2021 02:00 PM AMBULATORY - NONE [facility] Jun 13, 2021 02:00 PM AMBULATORY - NONE [facility] Jun 18, 2021 12:45 PM AMBULATORY - NONE [facility] Jun 18, 2021 01:30 PM AMBULATORY - MEDICINE [facility] Jun 20, 2021 10:00 AM AMBULATORY - MEDICINE [facility] Jul 11, 2021 01:00 PM AMBULATORY - NONE [facility] Jul 26, 2021 09:00 AM AMBULATORY - MEDICINE [facility] Jul 26, 2021 10:30 AM AMBULATORY - NONE [facility] Aug 03, 2021 10:46 AM AMBULATORY - MEDICINE [facility] Aug 08, 2021 07:00 AM AMBULATORY - NONE [facility] Aug 10, 2021 10:30 AM AMBULATORY - NONE [facility] Sep 14, 2021 09:00 AM AMBULATORY - NONE [facility] Sep 21, 2021 09:45 AM AMBULATORY - MEDICINE [facility] Sep 21, 2021 10:00 AM AMBULATORY - MEDICINE [facility] Sep 21, 2021 10:30 AM AMBULATORY - MEDICINE [facility] Sep 21, 2021 11:00 AM AMBULATORY - MEDICINE [facility] Lab Results: +/- 30 days [...] Range Comment Mar 23, 2021 09:57 AM [facility] POTASSIUM Specim en Type: PLASMA No comment enter ed. Ordering Provid er: RODO PINTO Report Released Date/Time: Mar 23, 2021 09:33 AM Reporting Lab: [facility] [address] [facility] [address] Performing Lab: [facility] [address] [facility] [address] POTASSIUM 4.6 mmol/L 3.5-5.1 Mar 23, 2021 06:48 [facility] BASIC METABOLIC Specimen Type: PLASMA AM PANEL+MG Comment: Cancel lation Called to: Dora Mae MSA 03/23/2021 @ 0930 by AEK. 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 Ordering Provid er: RODO PINTO Report Released Date/Time: Mar 22, 2021 10:19 AM Reporting Lab: [facility] [address] [facility] [address] Performing Lab: [facility] [address] [facility] [address] CREATININE 1.3 mg/dL H 0.7-1.2 UREA NITROGEN 25 mg/dL 8-26 GLUCOSE 170 mg/dL H 74-100 SODIUM 139 mmol/L 136-145 POTASSIUM canc mmol/L 3.5-5.1 CHLORIDE 109 mmol/L H 98-107 CO2 23 mmol/L 22-29 CALCIUM 9.0 mg/dL 8.4-10.2 MAGNESIUM 2.2 mg/dL 1.6-2.6 ANION GAP 7 mmol/L 5-15 ESTIMATED GFR(eGFR) 54 L >60 Mar 23, 2021 06:48 AM [facility] MAGNESIUM Specim en Type: PLASMA No comment enter ed. Ordering Provid er: RODO PINTO Report Released Date/Time: Mar 22, 2021 10:19 AM Reporting Lab: [facility] [address] [facility] [address] Performing Lab: [facility] [address] [facility] [address] MAGNESIUM 2.2 mg/dL 1.6-2.6 Mar 23, 2021 06:13 [facility] [place] GLUCOSE Speci men Type: BLOOD AM Comment: Abram rock Nurse Notified Ordering Provid er: TEAM,CARD II Report Released Date/Time: Mar 23, 2021 07:07 AM Reporting Lab: [facility] [address] [facility] [address] Performing Lab: [facility] [address] [facility] [address] [place] GLUCOSE 168 mg/dL H 70-100 Mar 22, 2021 08:30 [facility] [place] GLUCOSE Speci men Type: BLOOD PM Comment: VENOUS SAMPLE Ordering Provid er: GRANTCARD II Report Released Date/Time: Mar 23, 2021 08:23 AM Reporting Lab: [facility] [address] [facility] [address] Performing Lab: [facility] [address] [facility] [address] [place] GLUCOSE 240 mg/dL H 70-100 Mar 22, 2021 04:28 [facility] [place] GLUCOSE Speci men Type: BLOOD PM Comment: Abram Welch Notified Ordering Provid er: GRANTCARD II Report Released Date/Time: Mar 22, 2021 04:42 PM Reporting Lab: [facility] [address] [facility] [address] Performing Lab: [facility] [address] [facility] [address] [place] GLUCOSE 197 mg/dL H 70-100 Mar 22, 2021 11:28 [facility] [place] GLUCOSE Speci men Type: BLOOD AM Comment: Abram rock Nurse Notified Ordering Provid er: GRANTCARD II Report Released Date/Time: Mar 22, 2021 12:14 PM Reporting Lab: [facility] [address] [facility] [address] Performing Lab: [facility] [address] [facility] [address] [place] GLUCOSE 225 mg/dL H 70-100 Mar 22, 2021 06:13 [facility] [place] GLUCOSE Speci men Type: BLOOD AM Comment: Abram rock Nurse Notified Ordering Provid er: GRANTCARD II Report Released Date/Time: Mar 22, 2021 12:13 PM Reporting Lab: [facility] [address] [facility] [address] Performing Lab: [facility] [address] [facility] [address] [place] GLUCOSE 155 mg/dL H 70-100 Mar 21, 2021 07:36 [facility] [place] GLUCOSE Speci men Type: BLOOD PM Comment: Abram rock Nurse Notified Ordering Provid er: GRANTCARD II Report Released Date/Time: Mar 21, 2021 08:53 PM Reporting Lab: [facility] [address] [facility] [address] Performing Lab: [facility] [address] [facility] [address] [place] GLUCOSE 214 mg/dL H 70-100 Mar 21, 2021 04:00 [facility] [place] GLUCOSE Speci men Type: BLOOD PM Comment: Abram rock Nurse Notified Ordering Provid er: TEAM,CARD II Report Released Date/Time: Mar 21, 2021 04:27 PM Reporting Lab: [facility] [address] [facility] [address] Performing Lab: [facility] [address] [facility] [address] [place] GLUCOSE 252 mg/dL H 70-100 Mar 21, 2021 11:43 [facility] [place] GLUCOSE Speci men Type: BLOOD AM Comment: Abram rock Nurse Notified Ordering Provid er: TEAM,CARD II Report Released Date/Time: Mar 21, 2021 12:08 PM Reporting Lab: [facility] [address] [facility] [address] Performing Lab: [facility] [address] [facility] [address] FINGERSTICK GLUCOSE 227 mg/dL H 70-100 Mar 21, 2021 06:45 AM [facility] ALBUMIN Specim en Type: PLASMA No comment enter ed. Ordering Provid er: LISBET WASHINGTON V Report Released Date/Time: Mar 20, 2021 10:27 AM Reporting Lab: [facility] [address] [facility] [address] Performing Lab: [facility] [address] [facility] [address] ALBUMIN 3.5 g/dL 3.5-5.2 Mar 21, 2021 06:45 [facility] BASIC METABOLIC Specimen Type: PLASMA AM PANEL+MG No comment enter ed. Ordering Provid er: RODO PINTO Report Released Date/Time: Mar 20, 2021 02:43 PM Reporting Lab: [facility] [address] [facility] [address] Performing Lab: [facility] [address] [facility] [address] CREATININE 1.5 mg/dL H 0.7-1.2 UREA NITROGEN 26 mg/dL 8-26 GLUCOSE 207 mg/dL H 74-100 SODIUM 140 mmol/L 136-145 POTASSIUM 4.4 mmol/L 3.5-5.1 CHLORIDE 109 mmol/L H 98-107 CO2 24 mmol/L 22-29 CALCIUM 9.0 mg/dL 8.4-10.2 MAGNESIUM 2.3 mg/dL 1.6-2.6 ANION GAP 7 mmol/L 5-15 ESTIMATED GFR(eGFR) 46 L >60 Mar 21, 2021 06:38 [facility] [place] GLUCOSE Speci men Type: BLOOD AM Comment: Abram rock Nurse Notified Ordering Provid er: TEAM,CARD II Report Released Date/Time: Mar 21, 2021 07:23 AM Reporting Lab: [facility] [address] [facility] [address] [facility] [address] [place] GLUCOSE 159 mg/dL H 70-100 Mar 20, 2021 08:27 [facility] [place] GLUCOSE Speci men Type: BLOOD PM Comment: Abram rock Nurse Notified Ordering Provid er: TEAM,CARD II Report Released Date/Time: Mar 20, 2021 10:52 PM Reporting Lab: [facility] [address] [facility] [address] [facility] [address] [place] GLUCOSE 224 mg/dL H 70-100 Mar 20, 2021 05:06 [facility] [place] GLUCOSE Speci men Type: BLOOD PM Comment: Abram rock Nurse Notified Ordering Provid er: GRANT,CARD II Report Released Date/Time: Mar 20, 2021 05:27 PM Reporting Lab: [facility] [address] [facility] [address] [facility] [address] [place] GLUCOSE 183 mg/dL H 70-100 Mar 20, 2021 08:16 [facility] BASIC METABOLIC Specimen Type: PLASMA AM PANEL+MG No comment enter ed. Ordering Provid er: TUCKER JULIAN Report Released Date/Time: Mar 15, 2021 02:20 PM Reporting Lab: [facility] [address] [facility] [address] Performing Lab: [facility] [address] CREATININE 1.6 mg/dL H 0.7-1.2 UREA NITROGEN 31 mg/dL H 8-26 GLUCOSE 216 mg/dL H 74-100 SODIUM 142 mmol/L 136-145 POTASSIUM 4.6 mmol/L 3.5-5.1 CHLORIDE 106 mmol/L 98-107 CO2 25 mmol/L 22-29 CALCIUM 9.3 mg/dL 8.4-10.2 MAGNESIUM 2.2 mg/dL 1.6-2.6 ANION GAP 11 mmol/L 5-15 ESTIMATED GFR(eGFR) 43 L >60 Mar 20, 2021 08:16 [facility] COVID-19 DIAGNOSTIC Speci men Type: NASOPHARYNGEAL AM PANEL (CEPHEID) Comment: Wiley samuel GeneXpert ([id number]) Ordering Provid er: TUCKER JULIAN Report Released Date/Time: Mar 15, 2021 02:20 PM Reporting Lab: [facility] [address] Performing Lab: [facility] [address] COVID-19 (CEPHEID) Not Detected Not Dete cted Mar 05, 2021 09:42 [facility] BASIC METABOLIC Specimen Type: PLASMA AM PANEL+MG No comment enter ed. Ordering Provid er: VICENTE PELAEZ Report Released Date/Time: Feb 19, 2021 01:50 PM Reporting Lab: [facility] [address] Performing Lab: [facility] [address] CREATININE 1.4 mg/dL H 0.7-1.2 UREA NITROGEN [...] % 0 [place] 2020 08:55 /min mm[Hg] [facility] Social History: Smoking Status (Most current) and [...] 11:21 AM VA-VAAES TOBACCO USE CURRENT NRT [facility] DECLINE Tobacco Use History This section includes a history of the smoking, or tobacco- related health factors, that were collected on or before the date of the Encounter. The data comes from the [facility] facility where the Encounter took place. 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 [facility] Nov 15, 2020 10:00 AM VA-TOBACCO USE MED NO [place] [facility] [facility] Nov 15, 2020 10:00 AM VA-TOBACCO USER EVERY DAY [facility] Jun 21, 2019 02:29 PM VA-TOBACCO USE 30 YEARS OR MORE [facility] Jun 21, 2019 02:29 PM VA-TOBACCO USE ADVICE [place] [facility] [facility] Jun 21, 2019 02:29 PM 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 [facility] Jun 21, 2019 02:29 PM VA-TOBACCO USE MED NO [place] [facility] Jun 21, 2019 02:29 PM VA-TOBACCO USE WI 30 MIN OF WAKEUP [facility] Jun 21, 2019 02:29 PM VA-TOBACCO USER EVERY DAY [facility] Jun 09, 2018 03:48 PM VA-TOBACCO USE 30 YEARS OR MORE [facility] Jun 09, 2018 03:48 PM VA-TOBACCO USE ADVICE [place] [facility] [facility] Jun 09, 2018 03:48 PM 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
--- OUTSIDE RECORDS SUMMARY | 2022-04-02 16:05 | XMS_ITS | Encounter Summary ---
:1945 Author Organization [facility] Address [address] [place], [place] [address] Support Name Relationship Address Phone NIDIA MICHELE Unavailable [phone] [place] [phone] NIDIA MICHELE Unavailable [address] [place] [phone] Insurance Providers: All historical and current Section [...] MEDICARE MEDICARE PART Jun 25, PART B [id number] Saumya QUINONES PATIENT (WNR) (M) B 2011 78A 0 [facility] MEDICARE MEDICARE PART Sep 25, PART A [id number] Saumya QUINONES PATIENT (WNR) (M) A 2009 78A 0 [facility] MEDICARE MEDICARE PART Sep 25, PART A [id number] Saumya MICHELE (WNR) (M) A 2009 [id number] [id number] [facility] MEDICARE MEDICARE PART Sep 25, PART B [id number] Saumya MICHELE (WNR) (M) B 2009 [id number] [facility] Selected Encounter This section includes the information on record at [place] for the Encounter. Date/Time Encounter Type Encounter Reason Provider Source Description Mar 21, 2021 [place] DISPATCH COORDINATOR DISPATCH COORDINATOR SERVICE ICD-10-CM Z71.81 HILDA GALICIA 11:45 AM PADDING GLUER - INDIVIDUAL Spiritual or F INDIVIDU baptism counseling with Provider Comments: Spiritual or baptism counseling IHE Encounter Template Text not used by [facility] Assessments - Encounter Diagnoses This section includes the primary and secondary diagnoses documented for the Encounter. Date/Time Primary/Secondary Diagnosis Name Provider Source Diagnosis Mar 21, 2021 PRIMARY Spiritual or MATI GALICIA [facility] 01:07 PM baptism F [facility] counseling Plan of Treatment: Future Appointments (+ 6 months) and Future Tests (+/- 45 days) The Plan of Treatment section includes future care activities for the patient from all [place] [facility] This section includes future appointments and future orders which are active, pending orscheduled.Future Appointments This section includes appointments that were scheduled to occur 6 months from the date of the Encounter, up to a maximum of 20 appointments. The data comes from all [place] treatment facilities. Appointment Date/Time Appointment Type Appointment Facili ty Name Mar 22, 2021 06:26 PM AMBULATORY - MEDICINE [facility] Mar 23, 2021 02:30 PM AMBULATORY - MEDICINE [facility] Mar 23, 2021 03:00 PM AMBULATORY - MEDICINE [facility] Mar 26, 2021 09:00 AM AMBULATORY - NONE [facility] Apr 02, 2021 01:13 PM AMBULATORY - MEDICINE [facility] May 08, 2021 02:00 PM AMBULATORY - NONE [facility] Jun 13, 2021 02:00 PM AMBULATORY - NONE [facility] Jun 18, 2021 12:45 PM AMBULATORY - NONE [facility] Jun 18, 2021 01:30 PM AMBULATORY - MEDICINE [facility] Jun 20, 2021 10:00 AM AMBULATORY - MEDICINE [facility] Jul 11, 2021 01:00 PM AMBULATORY - NONE [facility] Jul 26, 2021 09:00 AM AMBULATORY - MEDICINE [facility] Jul 26, 2021 10:30 AM AMBULATORY - NONE [facility] Aug 03, 2021 10:46 AM AMBULATORY - MEDICINE [facility] Aug 08, 2021 07:00 AM AMBULATORY - NONE [facility] Aug 10, 2021 10:30 AM AMBULATORY - NONE [facility] Sep 14, 2021 09:00 AM AMBULATORY - NONE [facility] Sep 21, 2021 09:45 AM AMBULATORY - MEDICINE [facility] Sep 21, 2021 10:00 AM AMBULATORY - MEDICINE [facility] Sep 21, 2021 10:30 AM AMBULATORY - MEDICINE [facility] Lab Results: +/- 30 days of [...] Comment Mar 23, 2021 09:[address] [facility] POTASSIUM Specim en Type: PLASMA No comment enter ed. Ordering Provid er: RODO PINTO Report Released Date/Time: Mar 23, 2021 09:33 AM Reporting Lab: [facility] [address] [facility] [address] Performing Lab: [facility] [address] [facility] [address] POTASSIUM 4.6 3.5-5.1 Mar 23, 2021 06:[address] [facility] MAGNESIUM Specim en Type: PLASMA No comment enter ed. Ordering Provid er: RODO PINTO Report Released Date/Time: Mar 22, 2021 10:19 AM Reporting Lab: [facility] [place] [facility] [address] Performing Lab: [facility] [address] MAGNESIUM 2.2 1.6-2.6 Mar 23, 2021 06:48 [facility] BASIC METABOLIC Specimen Type: PLASMA AM PANEL+MG Comment: Cancel lation Called to: Dora Mae MSA 03/23/2021 @ 0930 by AEK. 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 Ordering Provid er: RODO PINTO Report Released Date/Time: Mar 22, 2021 10:19 AM Reporting Lab: [facility] [address] [address] Performing Lab: [facility] [address] CREATININE 1.3 H 0.7-1.2 UREA NITROGEN 25 8-26 GLUCOSE 170 H 74-100 SODIUM 139 136-145 POTASSIUM canc 3.5-5.1 CHLORIDE 109 H 98-107 CO2 23 22-29 CALCIUM 9.0 8.4-10.2 MAGNESIUM 2.2 1.6-2.6 ANION GAP 7 5-15 ESTIMATED GFR(eGFR) 54 L >60 Mar 23, 2021 06:13 [facility] FINGERSTICK GLUCOSE Speci men Type: BLOOD AM Comment: Abram rock Nurse Notified Ordering Provid er: GRANT,CARD II Report Released Date/Time: Mar 23, 2021 07:07 AM Reporting Lab: [facility] [address] [facility] [address] Performing Lab: [facility] [address] [facility] [address] FINGERSTICK GLUCOSE 168 H 70-100 Mar 22, 2021 08:30 [facility] FING[place] GLUCOSE Speci men Type: BLOOD PM Comment: VENOUS SAMPLE Ordering Provid er: TEAM,CARD II Report Released Date/Time: Mar 23, 2021 08:23 AM Reporting Lab: [facility] [address] [facility] [address] Performing Lab: [facility] [address] [facility] [address] FINGERSTICK GLUCOSE 240 H 70-100 Mar 22, 2021 04:28 [facility] FINGERSTICK GLUCOSE Speci men Type: BLOOD PM Comment: Abram Welch Notified Ordering Provid er: GRANT,CARD II Report Released Date/Time: Mar 22, 2021 04:42 PM Reporting Lab: [facility] [address] [facility] [address] Performing Lab: [facility] [address] [facility] [address] FINGERSTICK GLUCOSE 197 H 70-100 Mar 22, 2021 11:28 [facility] F[place]ER[place] GLUCOSE Speci men Type: BLOOD AM Comment: Abram Welch Notified Ordering Provid er: GRANTCARD II Report Released Date/Time: Mar 22, 2021 12:14 PM Reporting Lab: [facility] [address] [facility] [address] Performing Lab: [facility] [address] [facility] [address] FINGERST[place] GLUCOSE 225 H 70-100 Mar 22, 2021 06:13 [facility] FINGERSTICK GLUCOSE Speci men Type: BLOOD AM Comment: [place] Nurse Notified Ordering Provid er: TEAMCARD II Report Released Date/Time: Mar 22, 2021 12:13 PM Reporting Lab: [facility] [address] [facility] [address] Performing Lab: [facility] [address] [facility] [address] FINGERSTICK GLUCOSE 155 H 70-100 Mar 21, 2021 07:36 [facility] FINGERSTICK GLUCOSE Speci men Type: BLOOD PM Comment: Abram Welch Notified Ordering Provid er: GRANTCARD II Report Released Date/Time: Mar 21, 2021 08:53 PM Reporting Lab: [facility] [address] [facility] [address] Performing Lab: [facility] [address] [facility] [address] FINGERSTICK GLUCOSE 214 H 70-100 Mar 21, 2021 04:00 [facility] FINGERSTICK GLUCOSE Speci men Type: BLOOD PM Comment: [place] Nurse Notified Ordering Provid er: GRANTCARD II Report Released Date/Time: Mar 21, 2021 04:27 PM Reporting Lab: [facility] [address] [facility] [address] Performing Lab: [facility] [address] [facility] [address] FINGERSTICK GLUCOSE 252 H 70-100 Mar 21, 2021 11:43 [facility] FINGERSTICK GLUCOSE Speci men Type: BLOOD AM Comment: [place] Nurse Notified Ordering Provid er: GRANTCARD II Report Released Date/Time: Mar 21, 2021 12:08 PM Reporting Lab: [facility] [address] [facility] [address] Performing Lab: [facility] [address] [facility] [address] FINGERSTICK GLUCOSE 227 H 70-100 Mar 21, 2021 06:[address] [facility] ALBUMIN Specim en Type: PLASMA No comment enter ed. Ordering Provid er: LISBET [place] V Report Released Date/Time: Mar 20, 2021 10:27 AM Reporting Lab: [facility] [address] [facility] [address] Performing Lab: [facility] [address] [address] [facility] [address] ALBUMIN 3.5 3.5-5.2 Mar 21, 2021 06:45 [facility] BASIC METABOLIC Specimen Type: PLASMA AM PANEL+MG No comment enter ed. Ordering Provid er: RODO PINTO Report Released Date/Time: Mar 20, 2021 02:43 PM Reporting Lab: [facility] [address] [facility] [address] Performing Lab: [facility] [address] [facility] [address] CREATININE 1.5 H 0.7-1.2 UREA NITROGEN 26 8-26 GLUCOSE 207 H 74-100 SODIUM 140 136-145 POTASSIUM 4.4 3.5-5.1 CHLORIDE 109 H 98-107 CO2 24 22-29 CALCIUM 9.0 8.4-10.2 MAGNESIUM 2.3 1.6-2.6 ANION GAP 7 5-15 ESTIMATED GFR(eGFR) 46 L >60 Mar 21, 2021 06:38 [facility] FINGERSTICK GLUCOSE Speci men Type: BLOOD AM Comment: [place] Nurse Notified Ordering Provid er: TEAM,CARD II Report Released Date/Time: Mar 21, 2021 07:23 AM Reporting Lab: [facility] [address] [facility] [address] Performing Lab: [facility] [address] [facility] [address] FINGERSTICK GLUCOSE 159 H 70-100 Mar 20, 2021 08:27 [facility] FINGERSTICK GLUCOSE Speci men Type: BLOOD PM Comment: [place] Nurse Notified Ordering Provid er: TEAM,CARD II Report Released Date/Time: Mar 20, 2021 10:52 PM Reporting Lab: [facility] [address] [facility] [address] Performing Lab: [facility] [address] [facility] [address] FINGERSTICK GLUCOSE 224 H 70-100 Mar 20, 2021 05:06 [facility] FINGERSTICK GLUCOSE Speci men Type: BLOOD PM Comment: [place] Nurse Notified Ordering Provid er: TEAM,CARD II Report Released Date/Time: Mar 20, 2021 05:27 PM Reporting Lab: [facility] [address] [facility] [address] Performing Lab: [facility] [address] [facility] [address] FINGERSTICK GLUCOSE 183 H 70-100 Mar 20, 2021 08:16 [facility] COVID-19 DIAGNOSTIC Speci men Type: NASOPHARYNGEAL AM PANEL (CEPHEID) Comment: Wiley samuel GeneXpert (618) Ordering Provid er: TUCKER JULIAN Report Released Date/Time: Mar 15, 2021 02:20 PM Reporting Lab: [facility] [address] [facility] [address] Performing Lab: [facility] [address] [facility] [address] COVID-19 (CEPHEID) Not Detected Not Dete cted Mar 20, 2021 08:16 [facility] BASIC METABOLIC Specimen Type: PLASMA AM PANEL+MG No comment enter ed. Ordering Provid er: TUCKER JULIAN Report Released Date/Time: Mar 15, 2021 02:20 PM Reporting Lab: [facility] [place] [facility] [address] Performing Lab: [facility] [address] CREATININE 1.6 H 0.7-1.2 UREA NITROGEN 31 H 8-26 GLUCOSE 216 H 74-100 SODIUM 142 136-145 POTASSIUM 4.6 3.5-5.1 CHLORIDE 106 98-107 CO2 25 22-29 CALCIUM 9.3 8.4-10.2 MAGNESIUM 2.2 1.6-2.6 ANION GAP 11 5-15 ESTIMATED GFR(eGFR) 43 L >60 Mar 05, 2021 09:42 [facility] BASIC METABOLIC Specimen Type: PLASMA AM PANEL+MG No comment enter ed. Ordering Provid er: VICENTE PELAEZ Report Released Date/Time: Feb 19, 2021 01:50 PM Reporting Lab: [facility] [place] [facility] [address] Performing Lab: [facility] [address] CREATININE 1.4 H 0.7-1.2 UREA NITROGEN 22 [...] % 0 [place] 2020 01:00 /min mm[Hg] [facility] Social History: Smoking Status (Most current) [...] Comment Facility Mar 20, 2021 11:21 AM [place] TOBACCO USE CURRENT NRT [facility] DECLINE Tobacco Use History This section includes a history of the smoking, or tobacco- related health factors, that were collected on or before the date of the Encounter. The data comes from the [place] facility where the Encounter took place. Date/Time Smoking Status/Tobacco Use Comment Facil ity Nov 15, 2020 10:00 AM [place]-TO[place]ACCO [place] [address] [facility] WAKEUP Nov 15, 2020 10:00 AM VA-TOBACCO USE [address] [facility] Nov 15, 2020 10:00 AM [facility] Nov 15, 2020 10:00 AM VA-TOBACCO USE PADDING GLUER NO [facility] Nov 15, 2020 10:00 AM [facility]ACCO USE [facility] Nov 15, 2020 10:00 AM VA-TOBACCO USER EVERY DAY [facility] Jun 21, 2019 02:29 PM VA-TOBACCO USE [address] [facility] Jun 21, 2019 02:29 PM [facility]ACCO [facility]ICE [facility] Jun 21, 2019 02:29 PM VA-TOBACCO USE PADDING GLUER NO [facility] Jun 21, 2019 02:29 PM [place]-TOBACCO USE [place] [facility] Jun 21, 2019 02:29 PM VA-TOBACCO [place] [address] [facility] Jun 21, 2019 02:29 PM VA-TOBACCO USER EVERY DAY [facility] Jun 09, 2018 03:48 PM VA-TOBACCO USE [address] [facility] Jun 09, 2018 03:48 PM VA-TOBACCO USE ADVICE [place] [facility] Jun 09, 2018 03:48 PM VA-TOBACCO USE PADDING GLUER NO [facility] Jun 09, 2018 03:48 PM VA-TOBACCO USE MED [place] [facility] Jun 09, 2018 03:48 PM VA-TOBACCO USE [place] [address] [facility] Jun 09, 2018 03:48 PM VA-TOBACCO USER EVERY DAY [facility] Jun 20, 2017 07:53 AM CURRENT TOBACCO USER [facility] Jun 19, 2016 08:41 AM CURRENT TOBACCO USER [facility] Jun 21, 2015 08:15 AM CURRENT TOBACCO USER [facility] Mar 22, 2014 10:03 AM CURRENT TOBACCO USER [facility] Mar 25, 2013 11:01 AM CURRENT TOBACCO USER [facility] Feb 05, 2012 08:55 AM CURRENT TOBACCO USER [facility] January 01, 2011 09:26 AM CURRENT TOBACCO USER [facility] Mar 07, 2010 10:02 AM CURRENT TOBACCO USER [facility] Feb 21, 2009 08:17 AM CURRENT TOBACCO USER [facility] Nov 06, 2007 10:02 AM CURRENT TOBACCO USER [facility] January 02, 2007 10:33 AM CURRENT TOBACCO USER [facility] Advance Directives: All historical and current Section [...] 06, 2005 ADVANCE DIRECTIVE GANESH R[address]RIGUEZ [facility] Encounter Notes: All associated encounter notes This section contains the clinical notes associated to the Encounter. Date/Time Encounter Note(s) Provider Source Mar 21, 2021 01:06 PM PASTORAL CARE NOTE: [facility] LOCAL TITLE: DISPATCH COORDINATOR-VISITATION NOTE STANDARD TITLE: PASTORAL CARE NOTE DATE OF NOTE: MAR 21, 2021@13:06 ENTRY DATE: MAR 21, 2021@13:06:52 AUTHOR: MATI GALICIA EXP COSIGNER: URGENCY: STATUS: COMPLETED Pastoral visit. The patient was listed by the [facility] methodist. The patient stated that he is a Congregational. The patient's lashanda t has been changed to reflect this reality. The patient was given a copy of O ur Daily Bread devotional. The patient was also given a copy of the [facility] Service brochure and a schedule and invited to watch the Baptism Serv ices in the Chapel on the television or to attend in the Chapel. /es/ FATHER MATI (DALE GALICIA CHIEF, DISPATCH COORDINATOR SERVICE Signed: 03/21/2021 13:07
--- OUTSIDE RECORDS SUMMARY | 2022-04-02 16:06 | XMS_ITS ---
DAILY HOSPITALIZATION DATA [facility] Encounter Summary Created on:March 20, 2021 Patient:PAUL MICHELE Sex:Male :1945 Author Organization Department [facility] Address [address] [place] [id number] Care Team Providers Name Role Phone WILLA [...] MEDICARE MEDICARE PART Jun 25, PART B [id number] Saumya QUINONES PATIENT (WNR) (M) B 2011 78A 0 AVID MEDICARE MEDICARE PART Sep 25, PART A [id number] Saumya QUINONES PATIENT (WNR) (M) A 2009 78A 0 AVID MEDICARE MEDICARE PART Sep 25, PART A [id number] Saumya MICHELE (WNR) (M) A 2009 [id number] [id number] AVID MEDICARE MEDICARE PART Sep 25, PART B [id number] Saumya MICHELE ATTHOMAS (WNR) (M) B 2009 [id number] AVID Selected Encounter This section includes the information on record at [place] for the Encounter. Date/Time Encounter Type Encounter Description Reason Provider Source Mar 20, 2021 Inpatient Visit DAILY HOSPITALIZATION LISETTE CABALLERO 10:28 PM TREY IGLESIAS IHNancy Encounter Template Text not used by [place] Plan of Treatment: Future Appointments (+ 6 months) and Future Tests (+/- 45 days) The Plan of Treatment section includes future care activities for the [facility] [place] [facility] This section includes future appointments [...] 22, 2021 06:26 PM AMBULATORY - MEDICINE [facility] Mar 23, 2021 02:30 PM AMBULATORY - MEDICINE [facility] Mar 23, 2021 03:00 PM AMBULATORY - MEDICINE [facility] Mar 26, 2021 09:00 AM AMBULATORY - [facility] Apr 02, 2021 01:13 PM AMBULATORY - MEDICINE [facility] May 08, 2021 02:00 PM AMBULATORY - [facility] Jun 13, 2021 02:00 PM AMBULATORY - [facility] Jun 18, 2021 12:45 PM AMBULATORY - [facility] Jun 18, 2021 01:30 PM AMBULATORY - MEDICINE [facility] Jun 20, 2021 10:00 AM AMBULATORY - MEDICINE [facility] Jul 11, 2021 01:00 PM AMBULATORY - [facility] Jul 26, 2021 09:00 AM AMBULATORY - MEDICINE [facility] Jul 26, 2021 10:30 AM AMBULATORY - [facility] Aug 03, 2021 10:46 AM AMBULATORY - MEDICINE [facility] Aug 08, 2021 07:00 AM AMBULATORY - [facility] Aug 10, 2021 10:30 AM AMBULATORY - [facility] Sep 14, 2021 09:00 AM AMBULATORY - [facility] Lab Results: +/- 30 days of [...] Range Comment Mar 23, 2021 09:57 AM [facility] POTASSIUM Specim en Type: PLASMA No comment enter ed. Ordering Provid er: RODO PINTO Report Released Date/Time: Mar 23, 2021 09:33 AM Reporting Lab: [facility] [address] [facility] [address] Performing Lab: [facility] [address] [facility] [address] POTASSIUM 4.6 mmol/L 3.5-5.1 Mar 23, 2021 06:48 [facility] BASIC METABOLIC Specimen Type: PLASMA AM PANEL+MG Comment: Cancel lation Called to: Dora Westbrooknorma ROSANGELA 03/23/2021 @ 0930 by AEK. 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 Ordering Provid er: RODO PINTO Report Released Date/Time: Mar 22, 2021 10:19 AM Reporting Lab: [facility] [address] [facility] [address] Performing Lab: [facility] [address] [facility] [address] CREATININE 1.3 mg/dL H 0.7-1.2 UREA NITROGEN 25 mg/dL 8-26 GLUCOSE 170 mg/dL H 74-100 SODIUM 139 mmol/L 136-145 POTASSIUM canc mmol/L 3.5-5.1 CHLORIDE 109 mmol/L H 98-107 CO2 23 mmol/L 22-29 CALCIUM 9.0 mg/dL 8.4-10.2 MAGNESIUM 2.2 mg/dL 1.6-2.6 ANION GAP 7 mmol/L 5-15 ESTIMATED GFR(eGFR) 54 L >60 Mar 23, 2021 06:48 AM [facility] MAGNESIUM Specim en Type: PLASMA No comment enter ed. Ordering Provid er: RODO PINTO Report Released Date/Time: Mar 22, 2021 10:19 AM Reporting Lab: [facility] [address] [facility] [address] Performing Lab: [facility] [address] [facility] [address] MAGNESIUM 2.2 mg/dL 1.6-2.6 Mar 23, 2021 06:13 [facility] FINGERSTICK GLUCOSE Speci men Type: BLOOD AM Comment: Abram rock Nurse Notified Ordering Provid er: GRANTCARD II Report Released Date/Time: Mar 23, 2021 07:07 AM Reporting Lab: [facility] [address] [facility] [address] Performing Lab: [facility] [address] [facility] [address] FINGERSTICK GLUCOSE 168 mg/dL H 70-100 Mar 22, 2021 08:30 [facility] F[place]ER[place] GLUCOSE Speci men Type: BLOOD PM Comment: VENOUS SAMPLE Ordering Provid er: GRANTCARD II Report Released Date/Time: Mar 23, 2021 08:23 AM Reporting Lab: [facility] [address] [facility] [address] Performing Lab: [facility] [address] [facility] [address] FINGERSTICK GLUCOSE 240 mg/dL H 70-100 Mar 22, 2021 04:28 [facility] FINGERSTICK GLUCOSE Speci men Type: BLOOD PM Comment: Abram rock Nurse Notified Ordering Provid er: GRANTCARD II Report Released Date/Time: Mar 22, 2021 04:42 PM Reporting Lab: [facility] [address] [facility] [address] Performing Lab: [facility] [address] [facility] [address] FINGERSTICK GLUCOSE 197 mg/dL H 70-100 Mar 22, 2021 11:28 [facility] FINGERSTICK GLUCOSE Speci men Type: BLOOD AM Comment: Abram Welch Notified Ordering Provid er: GRANTCARD II Report Released Date/Time: Mar 22, 2021 12:14 PM Reporting Lab: [facility] [address] [facility] [address] Performing Lab: [facility] [address] [facility] [address] FING[place]ICK GLUCOSE 225 mg/dL H 70-100 Mar 22, 2021 06:13 [facility] FINGERSTICK GLUCOSE Speci men Type: BLOOD AM Comment: Abram rcok Nurse Notified Ordering Provid er: GRANTCARD II Report Released Date/Time: Mar 22, 2021 12:13 PM Reporting Lab: [facility] [address] [facility] [address] Performing Lab: [facility] [address] [facility] [address] F[place] GLUCOSE 155 mg/dL H 70-100 Mar 21, 2021 07:36 [facility] FINGERSTICK GLUCOSE Speci men Type: BLOOD PM Comment: Abram rock Nurse Notified Ordering Provid er: GRANTCARD II Report Released Date/Time: Mar 21, 2021 08:53 PM Reporting Lab: [facility] [address] [facility] [address] Performing Lab: [facility] [address] [facility] [address] FINGERSTICK GLUCOSE 214 mg/dL H 70-100 Mar 21, 2021 04:00 [facility] FINGERSTICK GLUCOSE Speci men Type: BLOOD PM Comment: [place]am [place] Nurse Notified Ordering Provid er: DARLYN BURNS II Report Released Date/Time: Mar 21, 2021 04:27 PM Reporting Lab: [facility] [address] [facility] [address] Performing Lab: [facility] [address] [facility] [address] FINGERSTICK GLUCOSE 252 mg/dL H 70-100 Mar 21, 2021 11:43 [facility] FINGERSTICK GLUCOSE Speci men Type: BLOOD AM Comment: [place]am [place] Nurse Notified Ordering Provid er: DARLYN BURNS II Report Released Date/Time: Mar 21, 2021 12:08 PM Reporting Lab: [facility] [address] [facility] [address] Performing Lab: [facility] [address] [facility] [address] FINGERSTICK GLUCOSE 227 mg/dL H 70-100 Mar 21, 2021 06:45 AM [facility] ALBUMIN Specim en Type: PLASMA No comment enter ed. Ordering Provid er: LISBET WASHINGTON V Report Released Date/Time: Mar 20, 2021 10:27 AM Reporting Lab: [facility] [address] [facility] [address] Performing Lab: [facility] [address] [facility] [address] ALBUMIN 3.5 g/dL 3.5-5.2 Mar 21, 2021 06:45 [facility] BASIC METABOLIC Specimen Type: PLASMA AM PANEL+MG No comment enter ed. Ordering Provid er: RODO PINTO Report Released Date/Time: Mar 20, 2021 02:43 PM Reporting Lab: [facility] [address] [facility] [address] Performing Lab: [facility] [address] [facility] [address] CREATININE 1.5 mg/dL H 0.7-1.2 UREA NITROGEN 26 mg/dL 8-26 GLUCOSE 207 mg/dL H 74-100 SODIUM 140 mmol/L 136-145 POTASSIUM 4.4 mmol/L 3.5-5.1 CHLORIDE 109 mmol/L H 98-107 CO2 24 mmol/L 22-29 CALCIUM 9.0 mg/dL 8.4-10.2 MAGNESIUM 2.3 mg/dL 1.6-2.6 ANION GAP 7 mmol/L 5-15 ESTIMATED GFR(eGFR) 46 L >60 Mar 21, 2021 06:38 [facility] FINGERSTICK GLUCOSE Speci men Type: BLOOD AM Comment: [place]am [place] Nurse Notified Ordering Provid er: GRANT,DARLYN II Report Released Date/Time: Mar 21, 2021 07:23 AM Reporting Lab: [facility] [address] [facility] [address] Performing Lab: [facility] [address] [facility] [address] FINGERSTICK GLUCOSE 159 mg/dL H 70-100 Mar 20, 2021 08:27 [facility] FINGERSTICK GLUCOSE Speci men Type: BLOOD PM Comment: Abram rokc Nurse Notified Ordering Provid er: GRANT,CARD II Report Released Date/Time: Mar 20, 2021 10:52 PM Reporting Lab: [facility] [address] [facility] [address] Performing Lab: [facility] [address] [facility] [address] FINGERSTICK GLUCOSE 224 mg/dL H 70-100 Mar 20, 2021 05:06 [facility] FINGERSTICK GLUCOSE Speci men Type: BLOOD PM Comment: [place]am [place] Nurse Notified Ordering Provid er: GRANT,CARD II Report Released Date/Time: Mar 20, 2021 05:27 PM Reporting Lab: [facility] [address] [facility] [address] Performing Lab: [facility] [address] [facility] [address] FINGER[place]ICK GLUCOSE 183 mg/dL H 70-100 Mar 20, 2021 08:16 [facility] BASIC METABOLIC Specimen Type: PLASMA AM PANEL+MG No comment enter ed. Ordering Provid er: TUCKER JULIAN Report Released Date/Time: Mar 15, 2021 02:20 PM Reporting Lab: [facility] [address] [facility] [address] Performing Lab: [facility] [address] [facility] [address] CREATININE 1.6 mg/dL H 0.7-1.2 UREA NITROGEN 31 mg/dL H 8-26 GLUCOSE 216 mg/dL H 74-100 SODIUM 142 mmol/L 136-145 POTASSIUM 4.6 mmol/L 3.5-5.1 CHLORIDE 106 mmol/L 98-107 CO2 25 mmol/L 22-29 CALCIUM 9.3 mg/dL 8.4-10.2 MAGNESIUM 2.2 mg/dL 1.6-2.6 ANION GAP 11 mmol/L 5-15 ESTIMATED GFR(eGFR) 43 L >60 Mar 20, 2021 08:16 [facility] COVID-19 DIAGNOSTIC Speci men Type: NASOPHARYNGEAL AM PANEL (CEPHEID) Comment: Wiley samuel GeneXpert (618) Ordering Provid er: TUCKER JULIAN Report Released Date/Time: Mar 15, 2021 02:20 PM Reporting Lab: [facility] [address] Performing Lab: [facility] [address] COVID-19 (CEPHEID) Not Detected Not Dete cted Mar 05, 2021 09:42 [facility] BASIC METABOLIC Specimen Type: PLASMA AM PANEL+MG No comment enter ed. Ordering Provid er: VICENTE PELAEZ Report Released Date/Time: Feb 19, 2021 01:50 PM Reporting Lab: [facility] [address] Performing Lab: [facility] [address] CREATININE 1.4 mg/dL H 0.7-1.2 UREA NITROGEN 22 mg/dL 8-26 GLUCOSE 241 mg/dL H 74-100 SODIUM 139 mmol/L 136-145 POTASSIUM 4.6 mmol/L 3.5-5.1 CHLORIDE 105 mmol/L 98-107 CO2 24 mmol/L 22-29 CALCIUM 9.1 mg/dL 8.4-10.2 MAGNESIUM 2.1 mg/dL 1.6-2.6 ANION GAP 10 mmol/L 5-15 ESTIMATED GFR(eGFR) 50 L >60 Feb 19, 2021 12:03 PM [facility] AST/SGOT Specim en Type: PLASMA No comment enter ed. Ordering Provid er: SAKSHI CROUCH Report Released Date/Time: January 17, 2021 05:13 PM Reporting Lab: [facility] [address] Performing Lab: [facility] [address] AST/SGOT 28 U/L <34 Feb 19, 2021 12:03 PM [facility] ALT/SGPT Specim en Type: PLASMA No comment enter ed. Ordering Provid er: SAKSHI CROUCH Report Released Date/Time: January 17, 2021 05:13 PM Reporting Lab: [facility] [address] [facility] [address] Performing Lab: [facility] [address] [facility] [address] ALT/SGPT 32 U/L <55 Feb 19, 2021 [facility] CREATININE(INCLUDES EGFR) Sp ecimen Type: PLASMA 12:03 PM No comment enter ed. Ordering Provid er: SAKSHI CROUCH Report Released Date/Time: January 17, 2021 05:13 PM Reporting Lab: [facility] [address] [facility] [address] Performing Lab: [facility] [address] [facility] [address] CREATININE 1.4 mg/dL H 0.7-1.2 ESTIMATED GFR(eGFR) 50 L >60 Feb 19, 2021 12:03 PM [facility] POTASSIUM Specim en Type: PLASMA No comment enter ed. Ordering Provid er: SAKSHI CROUCH Report Released Date/Time: January 17, 2021 05:13 PM Reporting Lab: [facility] [address] [facility] [address] Performing Lab: [facility] [address] [facility] [address] POTASSIUM 4.2 mmol/L 3.5-5.1 Feb 19, 2021 12:03 PM [facility] HEMOGLOBIN A1C Specim en Type: BLOOD No comment enter ed. Ordering Provid er: SAKSHI CROUCH Report Released Date/Time: January 17, 2021 05:13 PM Reporting Lab: [facility] [address] [facility] [address] Performing Lab: [facility] [address] [facility] [address] HEMOGLOBIN A1C 10.0 H 4.0-6.0 Social History: [...] Comment Facility Mar 20, 2021 11:21 AM [place] TOBACCO USE CURRENT NRT [facility] DECLINE Tobacco Use History This section includes a history of the smoking, or tobacco- related health factors, that were collected on or before the date of the Encounter. The data comes from the [place] facility where the Encounter took place. 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 [facility] Nov 15, 2020 10:00 AM VA-TOBACCO USE MED NO [place] [facility] Nov 15, 2020 10:00 AM VA-TOBACCO USER EVERY DAY [facility] Jun 21, 2019 02:29 PM VA-TOBACCO USE 30 YEARS OR MORE [facility] Jun 21, 2019 02:29 PM VA-TOBACCO USE ADVICE [place] [facility] Jun 21, 2019 02:29 PM 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 [facility] Jun 21, 2019 02:29 PM VA-TOBACCO USE MED NO [place] [facility] Jun 21, 2019 02:29 PM VA-TOBACCO USE [place] 30 MIN OF WAKEUP [facility] Jun 21, 2019 02:29 PM VA-TOBACCO USER EVERY DAY [facility] Jun 09, 2018 03:48 PM VA-TOBACCO USE 30 YEARS OR MORE [facility] Jun 09, 2018 03:48 PM VA-TOBACCO USE ADVICE [place] [facility] Jun 09, 2018 03:48 PM 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 [facility] Jun 09, 2018 03:48 PM VA-TOBACCO USE MED NO [place] [facility] Jun 09, 2018 03:48 PM VA-TOBACCO USE [place] 30 MIN OF WAKEUP [facility] Jun 09, 2018 03:48 PM VA-TOBACCO USER EVERY DAY [facility] Jun 20, 2017 07:53 AM CURRENT TOBACCO USER [facility] Jun 19, 2016 08:41 AM CURRENT TOBACCO USER [facility] Jun 21, 2015 08:15 AM CURRENT [facility]ACCO [facility]ER [facility] Mar 22, 2014 10:03 AM CURRENT TOBACCO USER [facility] Mar 25, 2013 11:01 AM CURRENT TOBACCO USER [facility] Feb 05, 2012 08:55 AM CURRENT TOBACCO USER [facility] January 01, 2011 09:26 AM CURRENT TOBACCO USER [facility] Mar 07, 2010 10:02 AM CURRENT TOBACCO USER [facility] Feb 21, 2009 08:17 AM CURRENT TOBACCO USER [facility] Nov 06, 2007 10:02 AM CURRENT TOBACCO USER [facility] January 02, 2007 10:33 AM CURRENT TOBACCO [...] Mar 06, 2005 ADVANCE DIRECTIVE GANESH RODRIGUEZ [facility]
--- OUTSIDE RECORDS SUMMARY | 2022-04-02 16:06 | XMS_ITS ---
DAILY HOSPITALIZATION DATA [facility] Encounter Summary Created on:March 20, 2021 Patient:PAUL MICHELE Sex:Male :1945 Author Organization Department [facility] Address [address] [place] [id number] Care Team Providers Name Role Phone SAKSHI [...] MEDICARE MEDICARE PART Jun 25, PART B [id number] Saumya QUINONES PATIENT (WNR) (M) B 2011 78A 0 AVID MEDICARE MEDICARE PART Sep 25, PART A [id number] Saumya QUINONES PATIENT (WNR) (M) A 2009 78A 0 AVID MEDICARE MEDICARE PART Sep 25, PART A [id number] Saumya MICHELE (WNR) (M) A 2009 78A [id number] AVID MEDICARE MEDICARE PART Sep 25, PART B [id number] Saumya MICHELE ATTHOMAS (WNR) (M) B 2009 [id number] AVID Selected Encounter This section includes the information on record at [place] for the Encounter. Date/Time Encounter Type Encounter Description Reason Provider Source Mar 20, 2021 Inpatient Visit DAILY HOSPITALIZATION RAJESH ARZOLA 07:17 PM DATA Y R IHE Encounter Template Text not used by [place] Plan of Treatment: Future Appointments (+ 6 months) and Future Tests (+/- 45 days) The Plan of Treatment section includes future care activities for the [facility] [place] [facility] This section includes future appointments [...] Mar 26, 2021 09:00 AM AMBULATORY - [facility] Apr 02, 2021 01:13 PM AMBULATORY - MEDICINE [facility] May 08, 2021 02:00 PM AMBULATORY - [facility] Jun 13, 2021 02:00 PM AMBULATORY - [facility] Jun 18, 2021 12:45 PM AMBULATORY - [facility] Jun 18, 2021 01:30 PM AMBULATORY - MEDICINE [facility] Jun 20, 2021 10:00 AM AMBULATORY - MEDICINE [facility] Jul 11, 2021 01:00 PM AMBULATORY - [facility] Jul 26, 2021 09:00 AM AMBULATORY - MEDICINE [facility] Jul 26, 2021 10:30 AM AMBULATORY - [facility] Aug 03, 2021 10:46 AM AMBULATORY - MEDICINE [facility] Aug 08, 2021 07:00 AM AMBULATORY - [facility] Aug 10, 2021 10:30 AM AMBULATORY - [facility] Sep 14, 2021 09:00 AM AMBULATORY - [facility] Lab Results: +/- 30 days [...] Range Comment Mar 23, 2021 09:57 AM [facility] POTASSIUM Specim en Type: PLASMA No comment enter ed. Ordering Provid er: RODO PINTO Report Released Date/Time: Mar 23, 2021 09:33 AM Reporting Lab: [facility] [address] [facility] [address] Performing Lab: [facility] [address] [facility] [address] POTASSIUM 4.6 mmol/L 3.5-5.1 Mar 23, 2021 06:48 [facility] BASIC METABOLIC Specimen Type: PLASMA AM PANEL+MG Comment: Cancel lation Called to: Dora Mae, ROSANGELA 03/23/2021 @ 0930 by AEK. 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 Ordering Provid er: RODO PINTO Report Released Date/Time: Mar 22, 2021 10:19 AM Reporting Lab: [facility] [address] [facility] [address] Performing Lab: [facility] [address] [facility] [address] CREATININE 1.3 mg/dL H 0.7-1.2 UREA NITROGEN 25 mg/dL 8-26 GLUCOSE 170 mg/dL H 74-100 SODIUM 139 mmol/L 136-145 POTASSIUM canc mmol/L 3.5-5.1 CHLORIDE 109 mmol/L H 98-107 CO2 23 mmol/L 22-29 CALCIUM 9.0 mg/dL 8.4-10.2 MAGNESIUM 2.2 mg/dL 1.6-2.6 ANION GAP 7 mmol/L 5-15 ESTIMATED GFR(eGFR) 54 L >60 Mar 23, 2021 06:48 AM [facility] MAGNESIUM Specim en Type: PLASMA No comment enter ed. Ordering Provid er: RODO PINTO Report Released Date/Time: Mar 22, 2021 10:19 AM Reporting Lab: [facility] [address] [facility] [address] Performing Lab: [facility] [address] [facility] [address] MAGNESIUM 2.2 mg/dL 1.6-2.6 Mar 23, 2021 06:13 [facility] FINGERSTICK GLUCOSE Speci men Type: BLOOD AM Comment: [place] Nurse Notified Ordering Provid er: DARLYN BURNS II Report Released Date/Time: Mar 23, 2021 07:07 AM Reporting Lab: [facility] [address] [facility] [address] Performing Lab: [facility] [address] [facility] [address] FINGERSTICK GLUCOSE 168 mg/dL H 70-100 Mar 22, 2021 08:30 [facility] FINGERSTICK GLUCOSE Speci men Type: BLOOD PM Comment: VENOUS SAMPLE Ordering Provid er: DARLYN BURNS II Report Released Date/Time: Mar 23, 2021 08:23 AM Reporting Lab: [facility] [address] [facility] [address] Performing Lab: [facility] [address] [facility] [address] FINGERSTICK GLUCOSE 240 mg/dL H 70-100 Mar 22, 2021 04:28 [facility] FINGERSTICK GLUCOSE Speci men Type: BLOOD PM Comment: [place] Nurse Notified Ordering Provid er: GRANTCARD II Report Released Date/Time: Mar 22, 2021 04:42 PM Reporting Lab: [facility] [address] [facility] [address] Performing Lab: [facility] [address] [facility] [address] FINGERSTICK GLUCOSE 197 mg/dL H 70-100 Mar 22, 2021 11:28 [facility] FINGERSTICK GLUCOSE Speci men Type: BLOOD AM Comment: Abram Welch Notified Ordering Provid er: GRANTCARD II Report Released Date/Time: Mar 22, 2021 12:14 PM Reporting Lab: [facility] [address] [facility] [address] Performing Lab: [facility] [address] [facility] [address] FINGER[place]ICK GLUCOSE 225 mg/dL H 70-100 Mar 22, 2021 06:13 [facility] FINGERSTICK GLUCOSE Speci men Type: BLOOD AM Comment: [place] Nurse Notified Ordering Provid er: GRANTCARD II Report Released Date/Time: Mar 22, 2021 12:13 PM Reporting Lab: [facility] [address] [facility] [address] Performing Lab: [facility] [address] [facility] [address] FINGERSTICK GLUCOSE 155 mg/dL H 70-100 Mar 21, 2021 07:36 [facility] FINGERSTICK GLUCOSE Speci men Type: BLOOD PM Comment: [place] Nurse Notified Ordering Provid er: DARLYN BURNS II Report Released Date/Time: Mar 21, 2021 08:53 PM Reporting Lab: [facility] [address] [facility] [address] Performing Lab: [facility] [address] [facility] [address] FINGERSTICK GLUCOSE 214 mg/dL H 70-100 Mar 21, 2021 04:00 [facility] FINGERSTICK GLUCOSE Speci men Type: BLOOD PM Comment: [place] Nurse Notified Ordering Provid er: DARLYN BURNS II Report Released Date/Time: Mar 21, 2021 04:27 PM Reporting Lab: [facility] [address] [facility] [address] Performing Lab: [facility] [address] [facility] [address] FINGERSTICK GLUCOSE 252 mg/dL H 70-100 Mar 21, 2021 11:43 [facility] FINGERSTICK GLUCOSE Speci men Type: BLOOD AM Comment: [place] Nurse Notified Ordering Provid er: DARLYN BURNS II Report Released Date/Time: Mar 21, 2021 12:08 PM Reporting Lab: [facility] [address] [facility] [address] Performing Lab: [facility] [address] [facility] [address] [place]INGER[place]ICK GLUCOSE 227 mg/dL H 70-100 Mar 21, 2021 06:45 AM [facility] ALBUMIN Specim en Type: PLASMA No comment enter ed. Ordering Provid er: LISBET W[place] V Report Released Date/Time: Mar 20, 2021 10:27 AM Reporting Lab: [facility] [address] [facility] [address] Performing Lab: [facility] [address] [facility] [address] ALBUMIN 3.5 g/dL 3.5-5.2 Mar 21, 2021 06:45 [facility] BASIC METABOLIC Specimen Type: PLASMA AM PANEL+MG No comment enter ed. Ordering Provid er: RODO PINTO S Report Released Date/Time: Mar 20, 2021 02:43 PM Reporting Lab: [facility] [address] [facility] [address] Performing Lab: [facility] [address] [facility] [address] CREATININE 1.5 mg/dL H 0.7-1.2 UREA NITROGEN 26 mg/dL 8-26 GLUCOSE 207 mg/dL H 74-100 SODIUM 140 mmol/L 136-145 POTASSIUM 4.4 mmol/L 3.5-5.1 CHLORIDE 109 mmol/L H 98-107 CO2 24 mmol/L 22-29 CALCIUM 9.0 mg/dL 8.4-10.2 MAGNESIUM 2.3 mg/dL 1.6-2.6 ANION GAP 7 mmol/L 5-15 ESTIMATED GFR(eGFR) 46 L >60 Mar 21, 2021 06:38 [facility] FINGERSTICK GLUCOSE Speci men Type: BLOOD AM Comment: [place] Nurse Notified Ordering Provid er: GRANT,CARD II Report Released Date/Time: Mar 21, 2021 07:23 AM Reporting Lab: [facility] [address] [facility] [address] Performing Lab: [facility] [address] [facility] [address] FING[place]ICK GLUCOSE 159 mg/dL H 70-100 Mar 20, 2021 08:27 [facility] FINGERSTICK GLUCOSE Speci men Type: BLOOD PM Comment: [place] Nurse Notified Ordering Provid er: GRANT,CARD II Report Released Date/Time: Mar 20, 2021 10:52 PM Reporting Lab: [facility] [address] [facility] [address] Performing Lab: [facility] [address] [facility] [address] FINGERSTICK GLUCOSE 224 mg/dL H 70-100 Mar 20, 2021 05:06 [facility] FINGERSTICK GLUCOSE Speci men Type: BLOOD PM Comment: [place] Nurse Notified Ordering Provid er: TEAM,CARD II Report Released Date/Time: Mar 20, 2021 05:27 PM Reporting Lab: [facility] [address] [facility] [address] Performing Lab: [facility] [address] [facility] [address] [place] GLUCOSE 183 mg/dL H 70-100 Mar 20, 2021 08:16 [facility] BASIC METABOLIC Specimen Type: PLASMA AM PANEL+MG No comment enter ed. Ordering Provid er: TUCKER JULIAN Report Released Date/Time: Mar 15, 2021 02:20 PM Reporting Lab: [facility] [address] [facility] [address] Performing Lab: [facility] [address] [facility] [address] CREATININE 1.6 mg/dL H 0.7-1.2 UREA NITROGEN 31 mg/dL H 8-26 GLUCOSE 216 mg/dL H 74-100 SODIUM 142 mmol/L 136-145 POTASSIUM 4.6 mmol/L 3.5-5.1 CHLORIDE 106 mmol/L 98-107 CO2 25 mmol/L 22-29 CALCIUM 9.3 mg/dL 8.4-10.2 MAGNESIUM 2.2 mg/dL 1.6-2.6 ANION GAP 11 mmol/L 5-15 ESTIMATED GFR(eGFR) 43 L >60 Mar 20, 2021 08:16 [facility] COVID-19 DIAGNOSTIC Speci men Type: NASOPHARYNGEAL AM PANEL (CEPHEID) Comment: Wiley samuel GeneXpert (618) Ordering Provid er: TUCKER JULIAN Report Released Date/Time: Mar 15, 2021 02:20 PM Reporting Lab: [facility] [address] Performing Lab: [facility] [address] COVID-19 (CEPHEID) Not Detected Not Dete cted Mar 05, 2021 09:42 [facility] BASIC METABOLIC Specimen Type: PLASMA AM PANEL+MG No comment enter ed. Ordering Provid er: VICENTE PELAEZ Report Released Date/Time: Feb 19, 2021 01:50 PM Reporting Lab: [facility] [address] Performing Lab: [facility] [address] CREATININE 1.4 mg/dL H 0.7-1.2 UREA NITROGEN 22 mg/dL 8-26 GLUCOSE 241 mg/dL H 74-100 SODIUM 139 mmol/L 136-145 POTASSIUM 4.6 mmol/L 3.5-5.1 CHLORIDE 105 mmol/L 98-107 CO2 24 mmol/L 22-29 CALCIUM 9.1 mg/dL 8.4-10.2 MAGNESIUM 2.1 mg/dL 1.6-2.6 ANION GAP 10 mmol/L 5-15 ESTIMATED GFR(eGFR) 50 L >60 Feb 19, 2021 12:03 PM [facility] AST/SGOT Specim en Type: PLASMA No comment enter ed. Ordering Provid er: SAKSHI CROUCH Report Released Date/Time: January 17, 2021 05:13 PM Reporting Lab: [facility] [address] Performing Lab: [facility] [address] AST/SGOT 28 U/L <34 Feb 19, 2021 12:03 PM [facility] ALT/SGPT Specim en Type: PLASMA No comment enter ed. Ordering Provid er: SAKSHI CROUCH Report Released Date/Time: January 17, 2021 05:13 PM Reporting Lab: [facility] [address] [facility] [address] Performing Lab: [facility] [address] [facility] [address] ALT/SGPT 32 U/L <55 Feb 19, 2021 [facility] CREATININE(INCLUDES EGFR) Sp ecimen Type: PLASMA 12:03 PM No comment enter ed. Ordering Provid er: SAKSHI CROUCH Report Released Date/Time: January 17, 2021 05:13 PM Reporting Lab: [facility] [address] [facility] [address] Performing Lab: [facility] [address] [facility] [address] CREATININE 1.4 mg/dL H 0.7-1.2 ESTIMATED GFR(eGFR) 50 L >60 Feb 19, 2021 12:03 PM [facility] POTASSIUM Specim en Type: PLASMA No comment enter ed. Ordering Provid er: SAKSHI CROUCH Report Released Date/Time: January 17, 2021 05:13 PM Reporting Lab: [facility] [address] [facility] [address] Performing Lab: [facility] [address] [facility] [address] POTASSIUM 4.2 mmol/L 3.5-5.1 Feb 19, 2021 12:03 PM [facility] HEMOGLOBIN A1C Specim en Type: BLOOD No comment enter ed. Ordering Provid er: SAKSHI CROUCH Report Released Date/Time: January 17, 2021 05:13 PM Reporting Lab: [facility] [address] [facility] [address] Performing Lab: [facility] [address] [facility] [address] HEMOGLOBIN A1C 10.0 H 4.0-6.0 Social History: [...] Comment Facility Mar 20, 2021 11:21 AM [place] TOBACCO USE CURRENT NRT [facility] DECLINE Tobacco Use History This section includes a history of the smoking, or tobacco- related health factors, that were collected on or before the date of the Encounter. The data comes from the [place] facility where the Encounter took place. Date/Time Smoking Status/Tobacco Use Comment Facil ity Nov 15, 2020 10:00 AM VA-TOBACCO DOESNT USE WI 30 MIN [facility] WAKEUP Nov 15, 2020 10:00 AM VA-TOBACCO USE 30 YEARS OR MORE [facility] Nov 15, 2020 10:00 AM VA-TOBACCO USE ADVICE [place] [facility] Nov 15, 2020 10:00 AM VA-TOBACCO USE TEACHING YOUNG NO [facility] Nov 15, 2020 10:00 AM VA-TOBACCO USE MED NO [place] [facility] Nov 15, 2020 10:00 AM VA-TOBACCO USER EVERY DAY [facility] Jun 21, 2019 02:29 PM VA-TOBACCO USE 30 YEARS OR MORE [facility] Jun 21, 2019 02:29 PM VA-TOBACCO USE ADVICE [place] [facility] Jun 21, 2019 02:29 PM VA-TOBACCO USE TEACHING YOUNG NO [facility] Jun 21, 2019 02:29 PM VA-TOBACCO USE MED NO [place] [facility] Jun 21, 2019 02:29 PM VA-TOBACCO USE [place] 30 MIN OF WAKEUP [facility] Jun 21, 2019 02:29 PM VA-TOBACCO USER EVERY DAY [facility] Jun 09, 2018 03:48 PM VA-TOBACCO USE 30 YEARS OR MORE [facility] Jun 09, 2018 03:48 PM VA-TOBACCO USE ADVICE [place] [facility] Jun 09, 2018 03:48 PM VA-TOBACCO USE TEACHING YOUNG NO [facility] Jun 09, 2018 03:48 PM VA-TOBACCO USE MED NO [place] [facility] Jun 09, 2018 03:48 PM VA-TOBACCO USE [place] 30 MIN OF WAKEUP [facility] Jun 09, 2018 03:48 PM VA-TOBACCO USER EVERY DAY [facility] Jun 20, 2017 07:53 AM [facility] Jun 19, 2016 08:41 AM CUR[facility] Jun 21, 2015 08:15 AM CURRENT [facility] Mar 22, 2014 10:03 AM CURRENT TOBACCO USER [facility] Mar 25, 2013 11:01 AM CURRENT TOBACCO USER [facility] Feb 05, 2012 08:55 AM CURRENT TOBACCO USER [facility] January 01, 2011 09:26 AM CURRENT TOBACCO USER [facility] Mar 07, 2010 10:02 AM CURRENT TOBACCO USER [facility] Feb 21, 2009 08:17 AM CURRENT TOBACCO USER [facility] Nov 06, 2007 10:02 AM CURRENT TOBACCO USER [facility] January 02, 2007 10:33 AM CURRENT TOBACCO USER [facility] Advance Directives: All historical and current [...] Mar 06, 2005 ADVANCE DIRECTIVE GANESH RODRIGUEZ [facility]
--- OUTSIDE RECORDS SUMMARY | 2022-04-02 16:06 | XMS_ITS | Encounter Summary ---
:1945 Author Organization Department [facility] Address [address] [place] [address] Care Team Providers Name Role Phone SAKSHI [...] MEDICARE MEDICARE PART Jun 25, PART B [id number] Saumya QUINONES PATIENT (WNR) (M) B 2011 78A 0 AVID MEDICARE MEDICARE PART Sep 25, PART A [id number] Saumya QUINONES PATIENT (WNR) (M) A 2009 78A 0 AVID MEDICARE MEDICARE PART Sep 25, PART A [id number] Saumya IMCHELE ATIENT (WNR) (M) A 2009 78A [id number] AVID MEDICARE MEDICARE PART Sep 25, PART B [id number] Saumya MICHELE ATIENT (WNR) (M) B 2009 [id number] [id number] AVID Selected Encounter This section includes the information on record at [place] for the Encounter. Date/Time Encounter Type Encounter Reason Provider Source Description Mar 20, 2021 01:00 Outpatient ADMIN PAT ACTIVTIES SYSTEM,C IS-RICHARDK AM Encounter (MASNONCT) IHE Encounter Template Text not used by [facility] Plan of Treatment: Future Appointments (+ 6 months) and Future Tests (+/- 45 days) The Plan of Treatment section includes future care activities for the patient from all [place] [facility]. This section includes future appointments and future orders which are active, pending orscheduled.Future Appointments This section includes appointments that were scheduled to occur 6 months from the date of the Encounter, up to a maximum of 20 appointments. The data comes from all [place] treatment facilities. Appointment Date/Time Appointment Type Appointment Facili ty Name Mar 22, 2021 06:26 PM AMBULATORY - MEDICINE [facility] Mar 23, 2021 02:30 PM AMBULATORY - MEDICINE [facility] Mar 23, 2021 03:00 PM AMBULATORY - MEDICINE [facility] Mar 26, 2021 09:00 AM AMBULATORY - NONE [facility] Apr 02, 2021 01:13 PM AMBULATORY - MEDICINE [facility] May 08, 2021 02:00 PM AMBULATORY - NONE [facility] Jun 13, 2021 02:00 PM AMBULATORY - NONE [facility] Jun 18, 2021 12:45 PM AMBULATORY - NONE [facility] Jun 18, 2021 01:30 PM AMBULATORY - MEDICINE [facility] Jun 20, 2021 10:00 AM AMBULATORY - MEDICINE [facility] Jul 11, 2021 01:00 PM AMBULATORY - NONE [facility] Jul 26, 2021 09:00 AM AMBULATORY - MEDICINE [facility] Jul 26, 2021 10:30 AM [facility] Aug 03, 2021 10:46 AM AMBULATORY - MEDICINE [facility] Aug 08, 2021 07:00 AM AMBULATORY - NONE [facility] Aug 10, 2021 10:30 AM AMBULATORY - NONE [facility] Sep 14, 2021 09:00 AM [facility]ORY - [facility] Lab Results: +/- 30 days of the encounter This section includes the Chemistry and Hematology Lab Results on record with [place] for the patient. Radiology Reports and Pathology Reports are provided separately, in subsequent sections.Lab Results This section contains the Chemistry/Hematology Results that were resulted 30 days before or 30 daysafter the date of the Encounter. Date/Time Source Result Type Result - Unit Interpretation Reference Range Comment Mar 23, 2021 09:57 AM [facility] POTASSIUM Specim en Type: PLASMA No comment enter ed. Ordering Provid er: RODO PINTO Report Released Date/Time: Mar 23, 2021 09:33 AM Reporting Lab: [facility] [address] [facility] [address] Performing Lab: [facility] [address] [facility] [address] POTASSIUM 4.6 mmol/L 3.5-5.1 Mar 23, 2021 06:48 [facility] BASIC METABOLIC Specimen Type: PLASMA AM PANEL+MG Comment: Cancel lation Called to: Doraelissa Mae MSA 03/23/2021 @ 0930 by AEK. 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 Ordering Provid er: RODO PINTO Report Released Date/Time: Mar 22, 2021 10:19 AM Reporting Lab: [facility] [address] Performing Lab: [facility] [address] CREATININE 1.3 mg/dL H 0.7-1.2 UREA NITROGEN 25 mg/dL 8-26 GLUCOSE 170 mg/dL H 74-100 SODIUM 139 mmol/L 136-145 POTASSIUM canc mmol/L 3.5-5.1 CHLORIDE 109 mmol/L H 98-107 CO2 23 mmol/L 22-29 CALCIUM 9.0 mg/dL 8.4-10.2 MAGNESIUM 2.2 mg/dL 1.6-2.6 ANION GAP 7 mmol/L 5-15 ESTIMATED GFR(eGFR) 54 L >60 Mar 23, 2021 06:48 AM [facility] MAGNESIUM Specim en Type: PLASMA No comment enter ed. Ordering Provid er: RODO PINTO Report Released Date/Time: Mar 22, 2021 10:19 AM Reporting Lab: [facility] [address] [facility] [address] Performing Lab: [facility] [address] [facility] [phone] MAGNESIUM 2.2 mg/dL 1.6-2.6 Mar 23, 2021 06:13 [facility] FINGERSTICK GLUCOSE Speci men Type: BLOOD AM Comment: [place] Nurse Notified Ordering Provid er: GRANT,CARD II Report Released Date/Time: Mar 23, 2021 07:07 AM Reporting Lab: [facility] [address] [facility] [address] Performing Lab: [facility] [address] [facility] [address] FINGERSTICK GLUCOSE 168 mg/dL H 70-100 Mar 22, 2021 08:30 [facility] [place] GLUCOSE Speci men Type: BLOOD PM Comment: VENOUS SAMPLE Ordering Provid er: DARLYN BURNS II Report Released Date/Time: Mar 23, 2021 08:23 AM Reporting Lab: [facility] [address] [facility] [address] Performing Lab: [facility] [address] [facility] [address] FINGERSTICK GLUCOSE 240 mg/dL H 70-100 Mar 22, 2021 04:28 [facility] F[place] GLUCOSE Speci men Type: BLOOD PM Comment: [place] Nurse Notified Ordering Provid er: GRANTCARD II Report Released Date/Time: Mar 22, 2021 04:42 PM Reporting Lab: [facility] [address] [facility] [address] Performing Lab: [facility] [address] [facility] [address] FINGER[place]ICK GLUCOSE 197 mg/dL H 70-100 Mar 22, 2021 11:28 [facility] F[place] GLUCOSE Speci men Type: BLOOD AM Comment: [place] Nurse Notified Ordering Provid er: GRANTCARD II Report Released Date/Time: Mar 22, 2021 12:14 PM Reporting Lab: [facility] [address] [facility] [address] Performing Lab: [facility] [address] [facility] [address] FINGERSTICK GLUCOSE 225 mg/dL H 70-100 Mar 22, 2021 06:13 [facility] F[place] GLUCOSE Speci men Type: BLOOD AM Comment: [place] Nurse Notified Ordering Provid er: DARLYN BURNS II Report Released Date/Time: Mar 22, 2021 12:13 PM Reporting Lab: [facility] [address] [facility] [address] Performing Lab: [facility] [address] [facility] [address] FINGER[place]ICK GLUCOSE 155 mg/dL H 70-100 Mar 21, 2021 07:36 [facility] F[place] GLUCOSE Speci men Type: BLOOD PM Comment: [place] Nurse Notified Ordering Provid er: GRANTCARD II Report Released Date/Time: Mar 21, 2021 08:53 PM Reporting Lab: [facility] [address] [facility] [address] Performing Lab: [facility] [address] [facility] [address] FINGERSTICK GLUCOSE 214 mg/dL H 70-100 Mar 21, 2021 04:00 [facility] F[place]ER[place] GLUCOSE Speci men Type: BLOOD PM Comment: [place] Nurse Notified Ordering Provid er: DARLYN BURNS II Report Released Date/Time: Mar 21, 2021 04:27 PM Reporting Lab: [facility] [address] [facility] [address] Performing Lab: [facility] [address] [facility] [address] FINGERSTICK GLUCOSE 252 mg/dL H 70-100 Mar 21, 2021 11:43 [facility] FINGER[place]ICK GLUCOSE Speci men Type: BLOOD AM Comment: [place] Nurse Notified Ordering Provid er: DARLYN BURNS II Report Released Date/Time: Mar 21, 2021 12:08 PM Reporting Lab: [facility] [address] [facility] [address] Performing Lab: [facility] [address] [facility] [address] FINGERSTICK GLUCOSE 227 mg/dL H 70-100 Mar 21, 2021 06:45 AM [facility] ALBUMIN Specim en Type: PLASMA No comment enter ed. Ordering Provid er: LISBET WASHINGTON V Report Released Date/Time: Mar 20, 2021 10:27 AM Reporting Lab: [facility] [address] [facility] [address] Performing Lab: [facility] [address] [facility] [address] ALBUMIN 3.5 g/dL 3.5-5.2 Mar 21, 2021 06:45 [facility] BASIC METABOLIC Specimen Type: PLASMA AM PANEL+MG No comment enter ed. Ordering Provid er: RODO PINTO Report Released Date/Time: Mar 20, 2021 02:43 PM Reporting Lab: [facility] [address] [facility] [address] Performing Lab: [facility] [address] [facility] [address] CREATININE 1.5 mg/dL H 0.7-1.2 UREA NITROGEN 26 mg/dL 8-26 GLUCOSE 207 mg/dL H 74-100 SODIUM 140 mmol/L 136-145 POTASSIUM 4.4 mmol/L 3.5-5.1 CHLORIDE 109 mmol/L H 98-107 CO2 24 mmol/L 22-29 CALCIUM 9.0 mg/dL 8.4-10.2 MAGNESIUM 2.3 mg/dL 1.6-2.6 ANION GAP 7 mmol/L 5-15 ESTIMATED GFR(eGFR) 46 L >60 Mar 21, 2021 06:38 [facility] F[place]ER[place] GLUCOSE Speci men Type: BLOOD AM Comment: [place] Nurse Notified Ordering Provid er: TEAM,CARD II Report Released Date/Time: Mar 21, 2021 07:23 AM Reporting Lab: [facility] [address] [facility] [address] Performing Lab: [facility] [address] [facility] [address] FINGER[place]ICK GLUCOSE 159 mg/dL H 70-100 Mar 20, 2021 08:27 [facility] [place] GLUCOSE Speci men Type: BLOOD PM Comment: [place] Nurse Notified Ordering Provid er: TEAM,CARD II Report Released Date/Time: Mar 20, 2021 10:52 PM Reporting Lab: [facility] [address] [facility] [address] [facility] [address] FINGERSTICK GLUCOSE 224 mg/dL H 70-100 Mar 20, 2021 05:06 [facility] [place] GLUCOSE Speci men Type: BLOOD PM Comment: [place] Nurse Notified Ordering Provid er: TEAM,CARD II Report Released Date/Time: Mar 20, 2021 05:27 PM Reporting Lab: [facility] [address] [facility] [address] Performing Lab: [facility] [address] [facility] [address] FING[place]ICK GLUCOSE 183 mg/dL H 70-100 Mar 20, 2021 08:16 [facility] BASIC METABOLIC Specimen Type: PLASMA AM PANEL+MG No comment enter ed. Ordering Provid er: TUCKER JULIAN Report Released Date/Time: Mar 15, 2021 02:20 PM Reporting Lab: [facility] [address] [facility] [address] Performing Lab: [facility] [address] [facility] [address] CREATININE 1.6 mg/dL H 0.7-1.2 UREA NITROGEN 31 mg/dL H 8-26 GLUCOSE 216 mg/dL H 74-100 SODIUM 142 mmol/L 136-145 POTASSIUM 4.6 mmol/L 3.5-5.1 CHLORIDE 106 mmol/L 98-107 CO2 25 mmol/L 22-29 CALCIUM 9.3 mg/dL 8.4-10.2 MAGNESIUM 2.2 mg/dL 1.6-2.6 ANION GAP 11 mmol/L 5-15 ESTIMATED GFR(eGFR) 43 L >60 Mar 20, 2021 08:16 [facility] COVID-19 DIAGNOSTIC Speci men Type: NASOPHARYNGEAL AM PANEL (CEPHEID) Comment: Cephei d GeneXpert (618) Ordering Provid er: TUCKER JULIAN Report Released Date/Time: Mar 15, 2021 02:20 PM Reporting Lab: [facility] [address] Performing Lab: [facility] [address] COVID-19 (CEPHEID) Not Detected Not Dete cted Mar 05, 2021 09:42 [facility] BASIC METABOLIC Specimen Type: PLASMA AM PANEL+MG No comment enter ed. Ordering Provid er: VICENTE PELAEZ Report Released Date/Time: Feb 19, 2021 01:50 PM Reporting Lab: [facility] [address] Performing Lab: [facility] [address] CREATININE 1.4 mg/dL H 0.7-1.2 UREA NITROGEN 22 mg/dL 8-26 GLUCOSE 241 mg/dL H 74-100 SODIUM 139 mmol/L 136-145 POTASSIUM 4.6 mmol/L 3.5-5.1 CHLORIDE 105 mmol/L 98-107 CO2 24 mmol/L 22-29 CALCIUM 9.1 mg/dL 8.4-10.2 MAGNESIUM 2.1 mg/dL 1.6-2.6 ANION GAP 10 mmol/L 5-15 ESTIMATED GFR(eGFR) 50 L >60 Feb 19, 2021 12:03 PM [facility] AST/SGOT Specim en Type: PLASMA No comment enter ed. Ordering Provid er: SAKSHI CROUCH Report Released Date/Time: January 17, 2021 05:13 PM Reporting Lab: [facility] [address] Performing Lab: [facility] [address] AST/SGOT 28 U/L <34 Feb 19, 2021 12:03 PM [facility] ALT/SGPT Specim en Type: PLASMA No comment enter ed. Ordering Provid er: SAKSHI CROUCH Report Released Date/Time: January 17, 2021 05:13 PM Reporting Lab: [facility] [address] [facility] [address] Performing Lab: [facility] [address] [facility] [address] ALT/SGPT 32 U/L <55 Feb 19, 2021 [facility] CREATININE(INCLUDES EGFR) Sp ecimen Type: PLASMA 12:03 PM No comment enter ed. Ordering Provid er: SAKSHI CROUCH Report Released Date/Time: January 17, 2021 05:13 PM Reporting Lab: [facility] [address] [facility] [address] Performing Lab: [facility] [address] [facility] [address] CREATININE 1.4 mg/dL H 0.7-1.2 ESTIMATED GFR(eGFR) 50 L >60 Feb 19, 2021 12:03 PM [facility] POTASSIUM Specim en Type: PLASMA No comment enter ed. Ordering Provid er: SAKSHI CROUCH Report Released Date/Time: January 17, 2021 05:13 PM Reporting Lab: [facility] [address] [facility] [address] Performing Lab: [facility] [address] [facility] [address] POTASSIUM 4.2 mmol/L 3.5-5.1 Feb 19, 2021 12:03 PM [facility] HEMOGLOBIN A1C Specim en Type: BLOOD No comment enter ed. Ordering Provid er: SAKSHI CROUCH Report Released Date/Time: January 17, 2021 05:13 PM Reporting Lab: [facility] [address] [facility] [address] Performing Lab: [facility] [address] [facility] [address] HEMOGLOBIN A1C 10.0 H 4.0-6.0 Social History: Smoking Status (Most current) and Tobacco Use (All prior to encounter date) This section includes the most current, and the historical, smoking and tobacco-related health factors from the [place] facility where the Encounter took place.Current Smoking Status This section includes the most current smoking, or tobacco-related health factor, from the [place] facility where the Encounter took place. Date/Time Current Smoking Status Comment Facility Mar 20, 2021 11:21 AM [place] TOBAC[place] USE CURRENT NRT [facility] DECLINE Tobacco Use History This section includes a history of the smoking, or tobacco- related health factors, that were collected on or before the date of the Encounter. The data comes from the [place] facility where the Encounter took place. Date/Time Smoking Status/Tobacco Use Comment Facil ity Nov 15, 2020 10:00 AM VA-TOBACCO DOESNT USE WI 30 MIN [facility] WAKEUP Nov 15, 2020 10:00 AM VA-TOBACCO USE 30 YEARS OR MORE [facility] Nov 15, 2020 10:00 AM [facility] Nov 15, 2020 10:00 AM VA-TOBACCO USE FIBER[place]ASS ROVING WINDER NO [facility] Nov 15, 2020 10:00 AM [facility] Nov 15, 2020 10:00 AM VA-TOBACCO USER EVERY DAY [facility] Jun 21, 2019 02:29 PM VA-TOBACCO USE 30 YEARS OR MORE [facility] Jun 21, 2019 02:29 PM [facility] Jun 21, 2019 02:29 PM VA-TOBACCO USE [place] R[place]ING [place] NO [facility] Jun 21, 2019 02:29 PM [facility] [place] [facility] [facility] Jun 21, 2019 02:29 PM VA-TOBACCO USE [place] 30 MIN OF WAKEUP [facility] Jun 21, 2019 02:29 PM VA-TOBACCO USER EVERY DAY [facility] Jun 09, 2018 03:48 PM VA-TOBACCO USE 30 YEARS OR MORE [facility] Jun 09, 2018 03:48 PM VA-TOBACCO USE ADVICE [place] [facility] Jun 09, 2018 03:48 PM VA-TOBACCO USE [place]ASS [place]ING [place] NO [facility] Jun 09, 2018 03:48 PM VA-TOBACCO USE MED [place] [facility] Jun 09, 2018 03:48 PM VA-TOBACCO USE [place] 30 MIN OF WAKEUP [facility] Jun 09, 2018 03:48 PM VA-TOBACCO USER EVERY DAY [facility] Jun 20, 2017 07:53 AM CURRENT TOBACCO USER [facility] Jun 19, 2016 08:41 AM CURRENT TOBACCO USER [facility] Jun 21, 2015 08:15 AM CURRENT TOBACCO USER [facility] Mar 22, 2014 10:03 AM CURRENT TOBACCO [facility] Mar 25, 2013 11:01 AM CURRENT TOBACCO US[facility] Feb 05, 2012 08:55 AM CURRENT TOBACCO USER [facility] January 01, 2011 09:26 AM [facility] Mar 07, 2010 10:02 AM CURRENT [facility]BAC[facility] USER [facility] Feb 21, 2009 08:17 AM [facility] Nov 06, 2007 10:02 AM CURRENT TOBACCO USER [facility] January 02, 2007 10:33 AM [address]AC[facility] US[facility] Advance Directives: All historical and current Section Date Range: From patient's date of to the date document was created. This section includes ALL of a patient's completed or amended [place] Advance and Rescinded Directives. The entries below indicate that a directive exists for the patient, but an actual copy is not included with this document. The data comes from all [place] facilities. Date Advance Directives Provider Source Mar 06, 2005 ADVANCE DIRECTIVE MICHAELGANESHNancy FERREIRA [facility] Encounter Notes: All associated encounter notes This section contains the clinical notes associated to the Encounter. Date/Time Encounter Note(s) Provider Source Mar 20, 2021 01:00 AM CRITICAL CARE UNIT NOTE: FLORENCIO RIOS Kristin [facility] LOCAL TITLE: [facility] INPATIENT FLOWSHEET STANDARD TITLE: CRITICAL CARE UNIT NOTE DATE OF NOTE: MAR 20, 2021@01:00 ENTRY DATE: MAR 21, 2021@14:31:47 AUTHOR: FLORENCIO RIOS EXP COSIGNER: URGENCY: STATUS: COMPLETED This is a place tapia only. Please see [employer] to view document. /es/ [facility] ICU DOCUMENT IMPORT Signed: 03/21/2021 14:31 Mar 20, 2021 01:00 AM CRITICAL CARE UNIT NOTE: FLORENCIO RIOS Kristin [facility] LOCAL TITLE: [facility] RESPIRATORY THERAPY FLOWSHEET STANDARD TITLE: CRITICAL CARE UNIT NOTE DATE OF NOTE: MAR 20, 2021@01:00 ENTRY DATE: MAR 21, 2021@15:02:20 AUTHOR: FLORENCIO RIOS EXP COSIGNER: URGENCY: STATUS: COMPLETED This is a place tapia only. Please see [employer] to view document. /es/ [facility] ICU DOCUMENT IMPORT Signed: 03/21/2021 15:02
--- OUTSIDE RECORDS SUMMARY | 2022-04-02 16:06 | XMS_ITS | Encounter Summary ---
:1945 Author Organization Department [facility] Address [address] [place] [address] Care Team Providers Name Role Phone SAKSHI [...] MEDICARE MEDICARE PART Jun 25, PART B [id number] Saumya QUINONES PATIENT (WNR) (M) B 2011 78A 0 AVID MEDICARE MEDICARE PART Sep 25, PART A [id number] Saumya QUINONES PATIENT (WNR) (M) A 2009 78A 0 AVID MEDICARE MEDICARE PART Sep 25, PART A [id number] Saumya MICHELE ATTHOMAS (WNR) (M) A 2009 [id number] [id number] AVID MEDICARE MEDICARE PART Sep 25, PART B [id number] Saumya MICHELE ATIENT (WNR) (M) B 2009 [id number] [id number] AVID Selected Encounter This section includes the information on record at [place] for the Encounter. Date/Time Encounter Type Encounter Reason Provider Source Description Mar 14, 2021 02:18 Outpatient ADMIN PAT ACTIVTIES Janak JOHNSON PM Encounter (MASNONCT) IHE Encounter Template Text not used by [facility] Plan of Treatment: Future Appointments (+ 6 months) and Future Tests (+/- 45 days) The Plan of Treatment section includes future care activities for the patient [facility] This section includes future appointments and future orders which are active, pending orscheduled.Future Appointments This section includes appointments that were scheduled to occur 6 months from the date of the Encounter, up to a maximum of 20 appointments. The data comes from all [place] treatment facilities. Appointment Date/Time Appointment Type Appointment Facili ty Name Mar 15, 2021 11:00 AM AMBULATORY - MEDICINE [facility] Mar 20, 2021 08:00 AM AMBULATORY - MEDICINE [facility] Mar 20, 2021 08:15 AM AMBULATORY - NONE [facility] Mar 20, 2021 08:30 AM AM[facility]ORY [facility] MEDICINE [facility] Mar 20, 2021 09:15 AM AMBULATORY - MEDICINE [facility] Mar 20, 2021 10:00 AM AMBULATORY - NONE [facility] Mar 22, 2021 06:26 PM AMBULATORY - MEDICINE [facility] Mar 23, 2021 02:30 PM AMBULATORY - MEDICINE [facility] Mar 23, 2021 03:00 PM AMBULATORY - MEDICINE [facility] Mar 26, 2021 09:00 AM AMBULATORY - NONE [facility] Apr 02, 2021 01:13 PM AMBULATORY - MEDICINE [facility] May 08, 2021 02:00 PM AMBULATORY - NONE [facility] Jun 13, 2021 02:00 PM AMBULATORY - NONE [facility] Jun 18, 2021 12:45 PM AMBULATORY - NONE [facility] Jun 18, 2021 01:30 PM AMBULATORY - MEDICINE [facility] Jun 20, 2021 10:00 AM AMBULATORY - MEDICINE [facility] Jul 11, 2021 01:00 PM AMBULATORY - NONE [facility] Jul 26, 2021 09:00 AM AMBULATORY - MEDICINE [facility] Jul 26, 2021 10:30 AM AMBULATORY - NONE [facility] Aug 03, 2021 10:46 AM AMBULATORY - MEDICINE [facility] Lab Results: +/- 30 days of the encounter This section includes the Chemistry and Hematology Lab Results on record with [place] for the patient. Radiology Reports and Pathology Reports are provided separately, in subsequent sections.Lab Results This section contains the Chemistry/Hematology Results that were resulted 30 days before or 30 daysafter the date of the Encounter. Date/Time Source Result Type Result - Unit Interpretation Reference Range Comment Mar 23, 2021 09:57 AM [facility] POTASSIUM Specim en Type: PLASMA No comment enter ed. Ordering Provid er: RODO PINTO Report Released Date/Time: Mar 23, 2021 09:33 AM Reporting Lab: [facility] [address] [facility] [address] Performing Lab: [facility] [address] [facility] [address] POTASSIUM 4.6 mmol/L 3.5-5.1 Mar 23, 2021 06:48 [facility] BASIC METABOLIC Specimen Type: PLASMA AM PANEL+MG Comment: Cancel lation Called to: Dora Mae, ROSANGELA 03/23/2021 @ 0930 by AEK. 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 Ordering Provid er: RODO PINTO Report Released Date/Time: Mar 22, 2021 10:19 AM Reporting Lab: [facility] [address] [facility] [address] Performing Lab: [facility] [address] [facility] [address] CREATININE 1.3 mg/dL H 0.7-1.2 UREA NITROGEN 25 mg/dL 8-26 GLUCOSE 170 mg/dL H 74-100 SODIUM 139 mmol/L 136-145 POTASSIUM canc mmol/L 3.5-5.1 CHLORIDE 109 mmol/L H 98-107 CO2 23 mmol/L 22-29 CALCIUM 9.0 mg/dL 8.4-10.2 MAGNESIUM 2.2 mg/dL 1.6-2.6 ANION GAP 7 mmol/L 5-15 ESTIMATED GFR(eGFR) 54 L >60 Mar 23, 2021 06:48 AM [facility] MAGNESIUM Specim en Type: PLASMA No comment enter ed. Ordering Provid er: RODO PINTO Report Released Date/Time: Mar 22, 2021 10:19 AM Reporting Lab: [facility] [address] [facility] [address] Performing Lab: [facility] [address] [facility] [address] MAGNESIUM 2.2 mg/dL 1.6-2.6 Mar 23, 2021 06:13 [facility] [place] GLUCOSE Speci men Type: BLOOD AM Comment: Abram rock Nurse Notified Ordering Provid er: GRANT,CARD II Report Released Date/Time: Mar 23, 2021 07:07 AM Reporting Lab: [facility] [address] [facility] [address] Performing Lab: [facility] [address] [facility] [address] [place] GLUCOSE 168 mg/dL H 70-100 Mar 22, 2021 08:30 [facility] [place] GLUCOSE Speci men Type: BLOOD PM Comment: VENOUS SAMPLE Ordering Provid er: DARLYN BURNS II Report Released Date/Time: Mar 23, 2021 08:23 AM Reporting Lab: [facility] [address] [facility] [address] Performing Lab: [facility] [address] [facility] [address] [place] GLUCOSE 240 mg/dL H 70-100 Mar 22, 2021 04:28 [facility] [place] GLUCOSE Speci men Type: BLOOD PM Comment: Abram Welch Notified Ordering Provid er: GRANTCARD II Report Released Date/Time: Mar 22, 2021 04:42 PM Reporting Lab: [facility] [address] [facility] [address] Performing Lab: [facility] [address] [facility] [address] [place] GLUCOSE 197 mg/dL H 70-100 Mar 22, 2021 11:28 [facility] [place] GLUCOSE Speci men Type: BLOOD AM Comment: Abram Welch Notified Ordering Provid er: DARLYN BURNS II Report Released Date/Time: Mar 22, 2021 12:14 PM Reporting Lab: [facility] [address] [facility] [address] Performing Lab: [facility] [address] [facility] [address] [place] GLUCOSE 225 mg/dL H 70-100 Mar 22, 2021 06:13 [facility] [place] GLUCOSE Speci men Type: BLOOD AM Comment: Abram rock Nurse Notified Ordering Provid er: GRANTCARD II Report Released Date/Time: Mar 22, 2021 12:13 PM Reporting Lab: [facility] [address] [facility] [address] Performing Lab: [facility] [address] [facility] [address] [place] GLUCOSE 155 mg/dL H 70-100 Mar 21, 2021 07:36 [facility] [place] GLUCOSE Speci men Type: BLOOD PM Comment: Abram rock Nurse Notified Ordering Provid er: GRANTCARD II Report Released Date/Time: Mar 21, 2021 08:53 PM Reporting Lab: [facility] [address] [facility] [address] Performing Lab: [facility] [address] [facility] [address] [place] GLUCOSE 214 mg/dL H 70-100 Mar 21, 2021 04:00 [facility] [place] GLUCOSE Speci men Type: BLOOD PM Comment: Abram rock Nurse Notified Ordering Provid er: GRANTCARD II Report Released Date/Time: Mar 21, 2021 04:27 PM Reporting Lab: [facility] [address] [facility] [address] Performing Lab: [facility] [address] [facility] [address] [place] GLUCOSE 252 mg/dL H 70-100 Mar 21, 2021 11:43 [facility] [place] GLUCOSE Speci men Type: BLOOD AM Comment: Abram rock Nurse Notified Ordering Provid er: GRANTCARD II Report Released Date/Time: Mar 21, 2021 12:08 PM Reporting Lab: [facility] [address] [facility] [address] Performing Lab: [facility] [address] [facility] [address] [place] GLUCOSE 227 mg/dL H 70-100 Mar 21, 2021 06:45 AM [facility] ALBUMIN Specim en Type: PLASMA No comment enter ed. Ordering Provid er: LISBET W[place] V Report Released Date/Time: Mar 20, 2021 10:27 AM Reporting Lab: [facility] [address] [facility] [address] Performing Lab: [facility] [address] [facility] [address] ALBUMIN 3.5 g/dL 3.5-5.2 Mar 21, 2021 06:45 [facility] BASIC METABOLIC Specimen Type: PLASMA AM PANEL+MG No comment enter ed. Ordering Provid er: RODO PINTO Report Released Date/Time: Mar 20, 2021 02:43 PM Reporting Lab: [facility] [address] [facility] [address] Performing Lab: [facility] [address] [facility] [address] CREATININE 1.5 mg/dL H 0.7-1.2 UREA NITROGEN 26 mg/dL 8-26 GLUCOSE 207 mg/dL H 74-100 SODIUM 140 mmol/L 136-145 POTASSIUM 4.4 mmol/L 3.5-5.1 CHLORIDE 109 mmol/L H 98-107 CO2 24 mmol/L 22-29 CALCIUM 9.0 mg/dL 8.4-10.2 MAGNESIUM 2.3 mg/dL 1.6-2.6 ANION GAP 7 mmol/L 5-15 ESTIMATED GFR(eGFR) 46 L >60 Mar 21, 2021 06:38 [facility] [place] GLUCOSE Speci men Type: BLOOD AM Comment: Abram rock Nurse Notified Ordering Provid er: TEAM,CARD II Report Released Date/Time: Mar 21, 2021 07:23 AM Reporting Lab: [facility] [address] [facility] [address] Performing Lab: [facility] [address] [address] [place] GLUCOSE 159 mg/dL H 70-100 Mar 20, 2021 08:27 [facility] [place] GLUCOSE Speci men Type: BLOOD PM Comment: bAram rock Nurse Notified Ordering Provid er: TEAM,CARD II Report Released Date/Time: Mar 20, 2021 10:52 PM Reporting Lab: [facility] [address] [facility] [address] Performing Lab: [facility] [address] [facility] [address] [place] GLUCOSE 224 mg/dL H 70-100 Mar 20, 2021 05:06 [facility] [place] GLUCOSE Speci men Type: BLOOD PM Comment: Abram rock Nurse Notified Ordering Provid er: TEAM,CARD II Report Released Date/Time: Mar 20, 2021 05:27 PM Reporting Lab: [facility] [address] [facility] [address] Performing Lab: [facility] [address] [facility] [address] [place] GLUCOSE 183 mg/dL H 70-100 Mar 20, 2021 08:16 [facility] BASIC METABOLIC Specimen Type: PLASMA AM PANEL+MG No comment enter ed. Ordering Provid er: TUCKER JULIAN Report Released Date/Time: Mar 15, 2021 02:20 PM Reporting Lab: [facility] [address] [facility] [address] Performing Lab: [facility] [address] [facility] [address] CREATININE 1.6 mg/dL H 0.7-1.2 UREA NITROGEN 31 mg/dL H 8-26 GLUCOSE 216 mg/dL H 74-100 SODIUM 142 mmol/L 136-145 POTASSIUM 4.6 mmol/L 3.5-5.1 CHLORIDE 106 mmol/L 98-107 CO2 25 mmol/L 22-29 CALCIUM 9.3 mg/dL 8.4-10.2 MAGNESIUM 2.2 mg/dL 1.6-2.6 ANION GAP 11 mmol/L 5-15 ESTIMATED GFR(eGFR) 43 L >60 Mar 20, 2021 08:16 [facility] COVID-19 DIAGNOSTIC Speci men Type: NASOPHARYNGEAL AM PANEL (CEPHEID) Comment: Cephei d GeneXpert (618) Ordering Provid er: TUCKER JULIAN Report Released Date/Time: Mar 15, 2021 02:20 PM Reporting Lab: [facility] [address] Performing Lab: [facility] [address] COVID-19 (CEPHEID) Not Detected Not Dete cted Mar 05, 2021 09:42 [facility] BASIC METABOLIC Specimen Type: PLASMA AM PANEL+MG No comment enter ed. Ordering Provid er: VICENTE PELAEZ Report Released Date/Time: Feb 19, 2021 01:50 PM Reporting Lab: [facility] [address] Performing Lab: [facility] [address] CREATININE 1.4 mg/dL H 0.7-1.2 UREA NITROGEN 22 mg/dL 8-26 GLUCOSE 241 mg/dL H 74-100 SODIUM 139 mmol/L 136-145 POTASSIUM 4.6 mmol/L 3.5-5.1 CHLORIDE 105 mmol/L 98-107 CO2 24 mmol/L 22-29 CALCIUM 9.1 mg/dL 8.4-10.2 MAGNESIUM 2.1 mg/dL 1.6-2.6 ANION GAP 10 mmol/L 5-15 ESTIMATED GFR(eGFR) 50 L >60 Feb 19, 2021 12:03 PM [facility] AST/SGOT Specim en Type: PLASMA No comment enter ed. Ordering Provid er: SAKSHI CROUCH Report Released Date/Time: January 17, 2021 05:13 PM Reporting Lab: [facility] [address] Performing Lab: [facility] [address] AST/SGOT 28 U/L <34 Feb 19, 2021 12:03 PM [facility] ALT/SGPT Specim en Type: PLASMA No comment enter ed. Ordering Provid er: SAKSHI CROUCH Report Released Date/Time: January 17, 2021 05:13 PM Reporting Lab: [facility] [address] [facility] [address] Performing Lab: [facility] [address] [facility] [address] ALT/SGPT 32 U/L <55 Feb 19, 2021 [facility] CREATININE(INCLUDES EGFR) Sp ecimen Type: PLASMA 12:03 PM No comment enter ed. Ordering Provid er: SAKSHI CROUCH Report Released Date/Time: January 17, 2021 05:13 PM Reporting Lab: [facility] [address] [facility] [address] Performing Lab: [facility] [address] [facility] [address] CREATININE 1.4 mg/dL H 0.7-1.2 ESTIMATED GFR(eGFR) 50 L >60 Feb 19, 2021 12:03 PM [facility] POTASSIUM Specim en Type: PLASMA No comment enter ed. Ordering Provid er: SAKSHI CROUCH Report Released Date/Time: January 17, 2021 05:13 PM Reporting Lab: [facility] [address] [facility] [address] Performing Lab: [facility] [address] [facility] [address] POTASSIUM 4.2 mmol/L 3.5-5.1 Feb 19, 2021 12:03 PM [facility] HEMOGLOBIN A1C Specim en Type: BLOOD No comment enter ed. Ordering Provid er: SAKSHI CROUCH Report Released Date/Time: January 17, 2021 05:13 PM Reporting Lab: [facility] [address] [facility] [address] Performing Lab: [facility] [address] [facility] [address] HEMOGLOBIN A1C 10.0 H 4.0-6.0 Social History: Smoking Status (Most current) and Tobacco Use (All prior to encounter date) This section includes the most current, and the historical, smoking and tobacco-related health factors from the [place] facility where the Encounter took place.Current Smoking Status This section includes the most current smoking, or tobacco-related health factor, from the CO facility where the Encounter took place. Date/Time Current Smoking Status Comment Facility Nov 15, 2020 10:00 AM VA-TOBACCO USE ROLFER NO [facility] Tobacco Use History This section includes a history of the smoking, or tobacco- related health factors, that were collected on or before the date of the Encounter. The data comes from the [place] facility where the Encounter took place. Date/Time Smoking Status/Tobacco Use Comment [facility] Nov 15, 2020 10:00 AM VA-TOBACCO USE 30 YEARS OR MORE [facility] Nov 15, 2020 10:00 AM [facility] Nov 15, 2020 10:00 AM VA-TOBACCO USE ROLFER NO [facility] Nov 15, 2020 10:00 AM VA-TOBACCO USE MED NO [place] [facility] Nov 15, 2020 10:00 AM VA-TOBACCO USER EVERY DAY [facility] Jun 21, 2019 02:29 PM VA-TOBACCO USE 30 YEARS OR MORE [facility] Jun 21, 2019 02:29 PM VA-TOBACCO USE ADVICE [place] [facility] Jun 21, 2019 02:29 PM VA-TOBACCO USE ROLFER NO [facility] Jun 21, 2019 02:29 PM VA-TOBACCO USE MED NO [place] [facility] Jun 21, 2019 02:29 PM VA-TOBACCO USE [place] 30 MIN OF WAKEUP [facility] Jun 21, 2019 02:29 PM VA-TOBACCO USER EVERY DAY [facility] Jun 09, 2018 03:48 PM VA-TOBACCO USE 30 YEARS OR MORE [facility] Jun 09, 2018 03:48 PM VA-TOBACCO USE ADVICE [place] [facility] Jun 09, 2018 03:48 PM VA-TOBACCO USE ROLFER NO [facility] Jun 09, 2018 03:48 PM VA-TOBACCO USE MED NO [place] [facility] Jun 09, 2018 03:48 PM VA-TOBACCO USE [place] 30 MIN OF WAKEUP [facility] Jun 09, 2018 03:48 PM VA-TOBACCO USER EVERY DAY [facility] Jun 20, 2017 07:53 AM CURRENT TOBACCO USER [facility] Jun 19, 2016 08:41 AM CURRENT TOBACCO USER [facility] Jun 21, 2015 08:15 AM CURRENT TOBACCO USER [facility] Mar 22, 2014 10:03 AM CURRENT TOBACCO USER [facility] Mar 25, 2013 11:01 AM CURRENT TOBACCO USER [facility] Feb 05, 2012 08:55 AM CURRENT TOBACCO USER [facility] January 01, 2011 09:26 AM CURRENT TOBACCO USER [facility] Mar 07, 2010 10:02 AM [facility] Feb 21, 2009 08:17 AM CURRENT TOBACCO USER [facility] Nov 06, 2007 10:02 AM [facility] January 02, 2007 10:33 AM CURRENT TOBACCO USER [facility] Advance Directives: All historical and current Section Date Range: From patient's date of to the date document was created. This section includes ALL of a patient's completed or amended [place] Advance and Rescinded Directives. The entries below indicate that a directive exists for the patient, but an actual copy is not included with this document. The data comes from all [place] facilities. Date Advance Directives Provider Source Mar 06, 2005 ADVANCE DIRECTIVE GANESH RODRIGUEZ [facility] Encounter Notes: All associated encounter notes This section contains the clinical notes associated to the Encounter. Date/Time Encounter Note(s) Provider Source Mar 14, 2021 02:18 PM TELEHEALTH NOTE: ANTONIETA JOHNSON IS [facility] LOCAL TITLE: TELEHEALTH TECHNOLOGY SCREENING (T TS) STANDARD TITLE: TELEHEALTH NOTE DATE OF NOTE: MAR 14, 2021@14:18 ENTRY DATE: MAR 14, 2021@14:18:27 AUTHOR: ANTONIETA JOHNSON EXP COSIGNER: URGENCY: STATUS: COMPLETED [place] declines [facility] (VVC) now and in the future or is not VVC appropriate. declines interest in VVC or any video ap pointments. /billy/ ANTONIETA JOHNSON Health Junior Account Executive Telehealth Signed: 03/14/2021 14:18
--- OUTSIDE RECORDS SUMMARY | 2022-04-02 16:06 | XMS_ITS | Encounter Summary ---
:1945 Author Organization Department [facility] Address [address] [place] [id number] Care Team Providers Name Role Phone SAKSHI [...] MEDICARE MEDICARE PART Jun 25, PART B [id number] Lizzie QUINONES PATIENT (WNR) (M) B 2011 78A 0 AVID MEDICARE MEDICARE PART Sep 25, PART A [id number] Lizzie QUINONES PATIENT (WNR) (M) A 2009 78A 0 AVID MEDICARE MEDICARE PART Sep 25, PART A [id number] Lizzie MICHELE (WNR) (M) A 2009 78A [id number] AVID MEDICARE MEDICARE PART Sep 25, PART B [id number] Lizzie MICHELE ATTHOMAS (WNR) (M) B 2009 78A [phone] AVID Selected Encounter This section includes the information on record at [place] for the Encounter. 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 This section includes future appointments and future orders which are active, pending orscheduled.Future Appointments This section includes appointments that were scheduled to occur 6 months from the date of the Encounter, up to a maximum of 20 appointments. The data comes from all [place] treatment facilities. Appointment Date/Time Appointment Type Appointment Facili ty Name Mar 20, 2021 08:00 AM AMBULATORY - MEDICINE [facility] Mar 20, 2021 08:15 AM AMBULATORY - NONE [facility] Mar 20, 2021 08:30 AM AMBULATORY - MEDICINE [facility] Mar 20, 2021 09:15 AM AMBULATORY - MEDICINE [facility] Mar 20, 2021 10:00 AM AMBULATORY - NONE [facility] Mar 22, 2021 06:26 PM AMBULATORY - MEDICINE [facility] Mar 23, 2021 02:30 PM AMBULATORY - MEDICINE [facility] Mar 23, 2021 03:00 PM AMBULATORY - MEDICINE [facility] Mar 26, 2021 09:00 AM AMBULATORY - NONE [facility] Apr 02, 2021 01:13 PM AMBULATORY - MEDICINE [facility] May 08, 2021 02:00 PM AMBULATORY - NONE [facility] Jun 13, 2021 02:00 PM AMBULATORY - NONE [facility] Jun 18, 2021 12:45 PM AMBULATORY - NONE [facility] Jun 18, 2021 01:30 PM AMBULATORY - MEDICINE [facility] Jun 20, 2021 10:00 AM AMBULATORY - MEDICINE [facility] Jul 11, 2021 01:00 PM AMBULATORY - NONE [facility] Jul 26, 2021 09:00 AM AMBULATORY - MEDICINE [facility] Jul 26, 2021 10:30 AM AMBULATORY - NONE [facility] Aug 03, 2021 10:46 AM AMBULATORY - MEDICINE [facility] Aug 08, 2021 07:00 AM AMBULATORY - NONE [facility] Lab Results: +/- 30 days of [...] AM Reporting Lab: [facility] [address] Performing Lab: [facility] [address] [facility] [address] POTASSIUM 4.6 mmol/L 3.5-5.1 Mar 23, 2021 06:48 [facility] BASIC METABOLIC Specimen Type: PLASMA AM PANEL+MG Comment: Cancel lation Called to: Dora Mae MSA 03/23/2021 @ 0930 by AEK. 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 Ordering Provid er: RODO PINTO Report Released Date/Time: Mar 22, 2021 10:19 AM Reporting Lab: [facility] [address] [facility] [address] Performing Lab: [facility] [address] [facility] [address] CREATININE 1.3 mg/dL H 0.7-1.2 UREA NITROGEN 25 mg/dL 8-26 GLUCOSE 170 mg/dL H 74-100 SODIUM 139 mmol/L 136-145 POTASSIUM canc mmol/L 3.5-5.1 CHLORIDE 109 mmol/L H 98-107 CO2 23 mmol/L 22-29 CALCIUM 9.0 mg/dL 8.4-10.2 MAGNESIUM 2.2 mg/dL 1.6-2.6 ANION GAP 7 mmol/L 5-15 ESTIMATED GFR(eGFR) 54 L >60 Mar 23, 2021 06:48 AM [facility] MAGNESIUM Specim en Type: PLASMA No comment enter ed. Ordering Provid er: RODO PINTO Report Released Date/Time: Mar 22, 2021 10:19 AM Reporting Lab: [facility] [address] [facility] [address] Performing Lab: [facility] [address] [facility] [address] MAGNESIUM 2.2 mg/dL 1.6-2.6 Mar 23, 2021 06:13 [facility] F[place] GLUCOSE Speci men Type: BLOOD AM Comment: Abram rock Nurse Notified Ordering Provid er: TEAMCARD II Report Released Date/Time: Mar 23, 2021 07:07 AM Reporting Lab: [facility] [address] [facility] [address] Performing Lab: [facility] [address] [facility] [address] FINGER[place]ICK GLUCOSE 168 mg/dL H 70-100 Mar 22, 2021 08:30 [facility] [place] GLUCOSE Speci men Type: BLOOD PM Comment: VENOUS SAMPLE Ordering Provid er: GRANTCARD II Report Released Date/Time: Mar 23, 2021 08:23 AM Reporting Lab: [facility] [address] [facility] [address] Performing Lab: [facility] [address] [facility] [address] [place] GLUCOSE 240 mg/dL H 70-100 Mar 22, 2021 04:28 [facility] [place] GLUCOSE Speci men Type: BLOOD PM Comment: Abram Welch Notified Ordering Provid er: GRANTCARD II Report Released Date/Time: Mar 22, 2021 04:42 PM Reporting Lab: [facility] [address] [facility] [address] Performing Lab: [facility] [address] [facility] [address] [place] GLUCOSE 197 mg/dL H 70-100 Mar 22, 2021 11:28 [facility] [place] GLUCOSE Speci men Type: BLOOD AM Comment: Abram Welch Notified Ordering Provid er: GRANTCARD II Report Released Date/Time: Mar 22, 2021 12:14 PM Reporting Lab: [facility] [address] [facility] [address] Performing Lab: [facility] [address] [facility] [address] FING[place]ICK GLUCOSE 225 mg/dL H 70-100 Mar 22, 2021 06:13 [facility] [place] GLUCOSE Speci men Type: BLOOD AM Comment: [place]am [place] Nurse Notified Ordering Provid er: DARLYN BURNS II Report Released Date/Time: Mar 22, 2021 12:13 PM Reporting Lab: [facility] [address] [facility] [address] Performing Lab: [facility] [address] [facility] [address] [place] GLUCOSE 155 mg/dL H 70-100 Mar 21, 2021 07:36 [facility] [place] GLUCOSE Speci men Type: BLOOD PM Comment: [place]am rock Nurse Notified Ordering Provid er: GRANTCARD II Report Released Date/Time: Mar 21, 2021 08:53 PM Reporting Lab: [facility] [address] [facility] [address] Performing Lab: [facility] [address] [facility] [address] FINGER[place]ICK GLUCOSE 214 mg/dL H 70-100 Mar 21, 2021 04:00 [facility] FINGER[place]ICK GLUCOSE Speci men Type: BLOOD PM Comment: [place]am [place] Nurse Notified Ordering Provid er: DARLYN BURNS II Report Released Date/Time: Mar 21, 2021 04:27 PM Reporting Lab: [facility] [address] [facility] [address] Performing Lab: [facility] [address] [facility] [address] FING[place]ICK GLUCOSE 252 mg/dL H 70-100 Mar 21, 2021 11:43 [facility] F[place] GLUCOSE Speci men Type: BLOOD AM Comment: [place] Nurse Notified Ordering Provid er: DARLYN BURNS II Report Released Date/Time: Mar 21, 2021 12:08 PM Reporting Lab: [facility] [address] [facility] [address] Performing Lab: [facility] [address] [facility] [address] [place] GLUCOSE 227 mg/dL H 70-100 Mar 21, 2021 06:45 AM [facility] ALBUMIN Specim en Type: PLASMA No comment enter ed. Ordering Provid er: LISBET WASHINGTON V Report Released Date/Time: Mar 20, 2021 10:27 AM Reporting Lab: [facility] [address] [facility] [address] Performing Lab: [facility] [address] [facility] [address] ALBUMIN 3.5 g/dL 3.5-5.2 Mar 21, 2021 06:45 [facility] BASIC METABOLIC Specimen Type: PLASMA AM PANEL+MG No comment enter ed. Ordering Provid er: RODO PINTO Report Released Date/Time: Mar 20, 2021 02:43 PM Reporting Lab: [facility] [address] [facility] [address] Performing Lab: [facility] [address] [facility] [address] CREATININE 1.5 mg/dL H 0.7-1.2 UREA NITROGEN [...] Mar 21, 2021 07:23 AM Reporting Lab: [facility] [address] [facility] [address] Performing Lab: [facility] [address] [facility] [address] [place]ING[place]ICK GLUCOSE 159 mg/dL H 70-100 Mar 20, 2021 08:27 [facility] F[place]ER[place]ICK GLUCOSE Speci men Type: BLOOD PM Comment: Abram Welch Notified Ordering Provid er: TEAM,CARD II Report Released Date/Time: Mar 20, 2021 10:52 PM Reporting Lab: [facility] [address] [facility] [address] Performing Lab: [facility] [address] [facility] [address] FINGER[place]ICK GLUCOSE 224 mg/dL H 70-100 Mar 20, 2021 05:06 [facility] FINGERSTICK GLUCOSE Speci men Type: BLOOD PM Comment: [place]am [place] Nurse Notified Ordering Provid er: GRANT,CARD II Report Released Date/Time: Mar 20, 2021 05:27 PM Reporting Lab: [facility] [address] [facility] [address] Performing Lab: [facility] [address] [facility] [address] FINGER[place]ICK GLUCOSE 183 mg/dL H 70-100 Mar 20, 2021 08:16 [facility] BASIC METABOLIC Specimen Type: PLASMA AM PANEL+MG No comment enter ed. Ordering Provid er: TUCKER JULIAN Report Released Date/Time: Mar 15, 2021 02:20 PM Reporting Lab: [facility] [address] Performing Lab: [facility] [address] CREATININE 1.6 mg/dL H 0.7-1.2 UREA NITROGEN 31 mg/dL H 8-26 GLUCOSE 216 mg/dL H 74-100 SODIUM 142 mmol/L 136-145 POTASSIUM 4.6 mmol/L 3.5-5.1 CHLORIDE 106 mmol/L 98-107 CO2 25 mmol/L 22-29 CALCIUM 9.3 mg/dL 8.4-10.2 MAGNESIUM 2.2 mg/dL 1.6-2.6 ANION GAP 11 mmol/L 5-15 ESTIMATED GFR(eGFR) 43 L >60 Mar 20, 2021 08:16 [facility] COVID-19 DIAGNOSTIC Speci men Type: NASOPHARYNGEAL AM PANEL (CEPHEID) Comment: Cephei lizzie GeneXpert ([phone]) Ordering Provid er: TUCKER JULIAN Report Released Date/Time: Mar 15, 2021 02:20 PM Reporting Lab: [facility] [address] Performing Lab: [facility] [address] COVID-19 (CEPHEID) Not Detected Not Dete cted Mar 05, 2021 09:42 [facility] BASIC METABOLIC Specimen Type: PLASMA AM PANEL+MG No comment enter ed. Ordering Provid er: VICENTE PELAEZ Report Released Date/Time: Feb 19, 2021 01:50 PM Reporting Lab: [facility] [address] Performing Lab: [facility] [address] CREATININE 1.4 mg/dL H 0.7-1.2 UREA NITROGEN 22 mg/dL 8-26 GLUCOSE 241 mg/dL H 74-100 SODIUM 139 mmol/L 136-145 POTASSIUM 4.6 mmol/L 3.5-5.1 CHLORIDE 105 mmol/L 98-107 CO2 24 mmol/L 22-29 CALCIUM 9.1 mg/dL 8.4-10.2 MAGNESIUM 2.1 mg/dL 1.6-2.6 ANION GAP 10 mmol/L 5-15 ESTIMATED GFR(eGFR) 50 L >60 Feb 19, 2021 12:03 PM [facility] AST/SGOT Specim en Type: PLASMA No comment enter ed. Ordering Provid er: SAKSHI CROUCH Report Released Date/Time: January 17, 2021 05:13 PM Reporting Lab: [facility] [address] [facility] [address] Performing Lab: [facility] [address] [facility] [address] AST/SGOT 28 U/L <34 Feb 19, 2021 12:03 PM [facility] ALT/SGPT Specim en Type: PLASMA No comment enter ed. Ordering Provid er: SAKSHI CROUCH Report Released Date/Time: January 17, 2021 05:13 PM Reporting Lab: [facility] [address] [facility] [address] Performing Lab: [facility] [address] [facility] [address] ALT/SGPT 32 U/L <55 Feb 19, 2021 [facility] CREATININE(INCLUDES EGFR) Sp ecimen Type: PLASMA 12:03 PM No comment enter ed. Ordering Provid er: SAKSHI CROUCH Report Released Date/Time: January 17, 2021 05:13 PM Reporting Lab: [facility] [address] [facility] [address] Performing Lab: [facility] [address] [facility] [address] CREATININE 1.4 mg/dL H 0.7-1.2 ESTIMATED GFR(eGFR) 50 L >60 Feb 19, 2021 12:03 PM [facility] POTASSIUM Specim en Type: PLASMA No comment enter ed. Ordering Provid er: SAKSHI CROUCH Report Released Date/Time: January 17, 2021 05:13 PM Reporting Lab: [facility] [address] [facility] [address] Performing Lab: [facility] [address] [facility] [address] POTASSIUM 4.2 mmol/L 3.5-5.1 Feb 19, 2021 12:03 PM [facility] HEMOGLOBIN A1C Specim en Type: BLOOD No comment enter ed. Ordering Provid er: SAKSHI CROUCH Report Released Date/Time: January 17, 2021 05:13 PM Reporting Lab: [facility] [address] [facility] [address] Performing Lab: [facility] [address] [facility] [address] HEMOGLOBIN A1C 10.0 H 4.0-6.0 Social History: [...] Nov 15, 2020 10:00 AM VA-TOBACCO USE STUDIO HAND NO [facility] Tobacco Use History This section includes a history of the smoking, or tobacco- related health factors, that were collected on or before the date of the Encounter. The data comes from the [place] facility where the Encounter took place. Date/Time Smoking Status/Tobacco Use Comment [facility] Nov 15, 2020 10:00 AM VA-TOBACCO USE 30 YEARS OR MORE [facility] Nov 15, 2020 10:00 AM VA-TOBACCO USE ADVICE [place] [facility] Nov 15, 2020 10:00 AM VA-TOBACCO USE STUDIO HAND NO [facility] Nov 15, 2020 10:00 AM VA-TOBACCO USE MED NO [place] [facility] Nov 15, 2020 10:00 AM VA-TOBACCO USER EVERY DAY [facility] Jun 21, 2019 02:29 PM VA-TOBACCO USE 30 YEARS OR MORE [facility] Jun 21, 2019 02:29 PM VA-TOBACCO USE ADVICE [place] [facility] Jun 21, 2019 02:29 PM VA-TOBACCO USE STUDIO HAND NO [facility] Jun 21, 2019 02:29 PM VA-TOBACCO USE MED NO [place] [facility] Jun 21, 2019 02:29 PM VA-TOBACCO USE [place] 30 MIN OF WAKEUP [facility] Jun 21, 2019 02:29 PM VA-TOBACCO USER EVERY DAY [facility] Jun 09, 2018 03:48 PM VA-TOBACCO USE 30 YEARS OR MORE [facility] Jun 09, 2018 03:48 PM VA-TOBACCO USE ADVICE [place] [facility] Jun 09, 2018 03:48 PM VA-TOBACCO USE STUDIO HAND NO [facility] Jun 09, 2018 03:48 PM VA-TOBACCO USE MED NO [place] [facility] Jun 09, 2018 03:48 PM VA-TOBACCO USE [place] 30 MIN OF WAKEUP [facility] Jun 09, 2018 03:48 PM VA-TOBACCO USER EVERY DAY [facility] Jun 20, 2017 07:53 AM CURRENT TOBACCO USER [facility] Jun 19, 2016 08:41 AM CURRENT TOBACCO USER [facility] Jun 21, 2015 08:15 AM CURRENT TOBACCO USER [facility] Mar 22, 2014 10:03 AM CURRENT TOBACCO USER [facility] Mar 25, 2013 11:01 AM CURRENT TOBACCO USER [facility] Feb 05, 2012 08:55 AM CURRENT TOBACCO USER [facility] January 01, 2011 09:26 AM CURRENT TOBACCO USER [facility] Mar 07, 2010 10:02 AM CURRENT TOBACCO USER [facility] Feb 21, 2009 08:17 AM CURRENT TOBACCO USER [facility] Nov 06, 2007 10:02 AM CURRENT TOBACCO USER [facility] January 02, 2007 10:33 AM CURRENT TOBACCO USER [facility] Advance Directives: All historical and current [...] Mar 06, 2005 ADVANCE DIRECTIVE GANESH RODRIGUEZ [facility] Encounter Notes: All associated encounter notes This section contains the clinical notes associated to the Encounter. Date/Time Encounter Note(s) Provider Source Mar 15, 2021 10:42 AM CARDIOLOGY DIAGNOSTIC STUDY NOTE: BHARATI NAVA [facility] LOCAL TITLE: CARDIOLOGY ELECTROPHYSIOLOGY NOTE STANDARD TITLE: CARDIOLOGY DIAGNOSTIC STUDY NOTE DATE OF NOTE: MAR 15, 2021@10:42 ENTRY DATE: MAR 15, 2021@10:42:39 AUTHOR: BHARATI NAVA EXP COSIGNER: URGENCY: STATUS: COMPLETED EP PA requested remote trans mission prior to phone visit w/ pt, thus called and walked pt thru steps of doing so. Counters indic ate 303.1 PVCs/hr. 5 episodes recorded as NSVT. Report attached for review. /billy/ JOE DENG, RN REGISTERED NURSE Signed: 03/15/2021 10:45 Receipt Acknowledged By: * AWAITING SIGNATURE * TUCKER JULIAN
--- OUTSIDE RECORDS SUMMARY | 2022-04-02 16:06 | XMS_ITS | Encounter Summary ---
:1945 Author Organization Department [facility] Address [address] [place] [id number] Care Team Providers Name Role Phone WILLA [...] MEDICARE MEDICARE PART Jun 25, PART B [id number] Saumya QUINONES PATIENT (WNR) (M) B 2011 78A 0 AVID MEDICARE MEDICARE PART Sep 25, PART A [id number] Saumya QUINONES PATIENT (WNR) (M) A 2009 78A 0 AVID MEDICARE MEDICARE PART Sep 25, PART A [id number] Saumya MICHELE (WNR) (M) A 2009 78A [id number] AVID MEDICARE MEDICARE PART Sep 25, PART B [id number] Saumya MICHELE (WNR) (M) B 2009 78A [id number] AVID Selected Encounter This section includes the information on record at [place] for the Encounter. Date/Time Encounter Type Encounter Reason Provider Source Description Mar 15, 2021 Outpatient TELEPHONE/MEDICIN ICD-10-CM I48.19 GLAUSER,NO RA 11:00 AM Encounter E Other persistent N atrial fibrillation with Provider Comments: Persistent atrial fibrillation (SCT [id number]) IHE Encounter Template Text not used by [facility] Assessments - Encounter Diagnoses This section includes the primary and secondary diagnoses documented for the Encounter. Date/Time Primary/Secondary Diagnosis Name Provider Source Diagnosis Mar 15, 2021 PRIMARY Other persistent KATERIN JULIAN [place] 11:00 AM atrial N HCS fibrillation Mar 15, 2021 SECONDARY Presence of KATERIN JULIAN [place] 11:00 AM automatic N HCS (implantable) cardiac defibrillator Plan of Treatment: Future Appointments (+ 6 months) and Future Tests (+/- 45 days) The Plan of Treatment section includes future care activities for the [facility] This section includes future appointments and future orders which are active, pending orscheduled.Future Appointments This section includes appointments that were scheduled to occur 6 months from the date of the Encounter, up to a maximum of 20 appointments. The data comes from all [place] treatment facilities. Appointment Date/Time Appointment Type Appointment Facili ty Name Mar 20, 2021 08:00 AM AMBULATORY - MEDICINE [facility] Mar 20, 2021 08:15 AM AMBULATORY - NONE [facility] Mar 20, 2021 08:30 AM AMBULATORY - MEDICINE [facility] Mar 20, 2021 09:15 AM AMBULATORY - MEDICINE [facility] Mar 20, 2021 10:00 AM AMBULATORY - NONE [facility] Mar 22, 2021 06:26 PM AMBULATORY - MEDICINE [facility] Mar 23, 2021 02:30 PM AMBULATORY - MEDICINE [facility] Mar 23, 2021 03:00 PM AMBULATORY - MEDICINE [facility] Mar 26, 2021 09:00 AM AMBULATORY - NONE [facility] Apr 02, 2021 01:13 PM AMBULATORY - MEDICINE [facility] May 08, 2021 02:00 PM AMBULATORY - NONE [facility] Jun 13, 2021 02:00 PM AMBULATORY - NONE [facility] Jun 18, 2021 12:45 PM AMBULATORY - NONE [facility] Jun 18, 2021 01:30 PM AMBULATORY - MEDICINE [facility] Jun 20, 2021 10:00 AM AMBULATORY - MEDICINE [facility] Jul 11, 2021 01:00 PM AMBULATORY - NONE [facility] Jul 26, 2021 09:00 AM AMBULATORY - MEDICINE [facility] Jul 26, 2021 10:30 AM AMBULATORY - NONE [facility] Aug 03, 2021 10:46 AM AMBULATORY - MEDICINE [facility] Aug 08, 2021 07:00 AM AMBULATORY - NONE [facility] Lab Results: +/- 30 days of the encounter This section includes the Chemistry and Hematology Lab Results on record with NE for the patient. Radiology Reports and Pathology Reports are provided separately, in subsequent sections.Lab Results This section contains the Chemistry/Hematology Results that were resulted 30 days before or 30 daysafter the date of the Encounter. Date/Time Source Result Type Result - Unit Interpretation Reference Range Comment Mar 23, 2021 09:57 AM [facility] POTASSIUM Specim en Type: PLASMA No comment enter ed. Ordering Provid er: RODO PINTO Report Released Date/Time: Mar 23, 2021 09:33 AM Reporting Lab: [facility] [address] Performing Lab: [facility] [address] POTASSIUM 4.6 mmol/L 3.5-5.1 Mar 23, 2021 06:48 [facility] BASIC METABOLIC Specimen Type: PLASMA AM PANEL+MG Comment: Cancel lation Called to: Dora Mae MSA 03/23/2021 @ 0930 by AEK. 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 Ordering Provid er: RODO PINTO Report Released Date/Time: Mar 22, 2021 10:19 AM Reporting Lab: [facility] [address] Performing Lab: [facility] [address] CREATININE 1.3 mg/dL H 0.7-1.2 UREA NITROGEN 25 mg/dL 8-26 GLUCOSE 170 mg/dL H 74-100 SODIUM 139 mmol/L 136-145 POTASSIUM canc mmol/L 3.5-5.1 CHLORIDE 109 mmol/L H 98-107 CO2 23 mmol/L 22-29 CALCIUM 9.0 mg/dL 8.4-10.2 MAGNESIUM 2.2 mg/dL 1.6-2.6 ANION GAP 7 mmol/L 5-15 ESTIMATED GFR(eGFR) 54 L >60 Mar 23, 2021 06:48 AM [facility] MAGNESIUM Specim en Type: PLASMA No comment enter ed. Ordering Provid er: RODO PINTO Report Released Date/Time: Mar 22, 2021 10:19 AM Reporting [facility] [address] Performing Lab: [facility] [address] [facility] [address] MAGNESIUM 2.2 mg/dL 1.6-2.6 Mar 23, 2021 06:13 [facility] FINGERSTICK GLUCOSE Speci men Type: BLOOD AM Comment: Abram rock Nurse Notified Ordering Provid er: DARLYN BURNS II Report Released Date/Time: Mar 23, 2021 07:07 AM Reporting Lab: [facility] [address] [facility] [address] Performing Lab: [facility] [address] [facility] [address] FINGERSTICK GLUCOSE 168 mg/dL H 70-100 Mar 22, 2021 08:30 [facility] FINGERSTICK GLUCOSE Speci men Type: BLOOD PM Comment: VENOUS SAMPLE Ordering Provid er: DARLYN BURNS II Report Released Date/Time: Mar 23, 2021 08:23 AM Reporting Lab: [facility] [address] [facility] [phone] Performing Lab: [facility] [address] [facility] [address] FINGERSTICK GLUCOSE 240 mg/dL H 70-100 Mar 22, 2021 04:28 [facility] FINGERSTICK GLUCOSE Speci men Type: BLOOD PM Comment: Abram rock Nurse Notified Ordering Provid er: DARLYN BURNS II Report Released Date/Time: Mar 22, 2021 04:42 PM Reporting Lab: [facility] [address] [facility] [address] Performing Lab: [facility] [address] [facility] [address] FINGERSTICK GLUCOSE 197 mg/dL H 70-100 Mar 22, 2021 11:28 [facility] FINGERSTICK GLUCOSE Speci men Type: BLOOD AM Comment: Abram rock Nurse Notified Ordering Provid er: DARLYN BURNS II Report Released Date/Time: Mar 22, 2021 12:14 PM Reporting Lab: [facility] [address] [facility] [phone] Performing Lab: [facility] [address] [facility] [address] FINGERSTICK GLUCOSE 225 mg/dL H 70-100 Mar 22, 2021 06:13 [facility] FINGERSTICK GLUCOSE Speci men Type: BLOOD AM Comment: Abram rock Nurse Notified Ordering Provid er: DARLYN BURNS II Report Released Date/Time: Mar 22, 2021 12:13 PM Reporting Lab: [facility] [address] [facility] [phone] Performing Lab: [facility] [address] [facility] [address] FINGERSTICK GLUCOSE 155 mg/dL H 70-100 Mar 21, 2021 07:36 [facility] FINGERSTICK GLUCOSE Speci men Type: BLOOD PM Comment: Abram rock Nurse Notified Ordering Provid er: GRANTCARD II Report Released Date/Time: Mar 21, 2021 08:53 PM Reporting Lab: [facility] [address] [facility] [address] Performing Lab: [facility] [address] [facility] [address] FINGERSTICK GLUCOSE 214 mg/dL H 70-100 Mar 21, 2021 04:00 [facility] FINGERSTICK GLUCOSE Speci men Type: BLOOD PM Comment: Abram rock Nurse Notified Ordering Provid er: GRANTCARD II Report Released Date/Time: Mar 21, 2021 04:27 PM Reporting Lab: [facility] [address] [facility] [address] Performing Lab: [facility] [address] [facility] [address] FINGERSTICK GLUCOSE 252 mg/dL H 70-100 Mar 21, 2021 11:43 [facility] FINGERSTICK GLUCOSE Speci men Type: BLOOD AM Comment: Abram rock Nurse Notified Ordering Provid er: DARLYN BURNS II Report Released Date/Time: Mar 21, 2021 12:08 PM Reporting Lab: [facility] [address] [facility] [address] Performing Lab: [facility] [address] [facility] [address] FINGERSTICK GLUCOSE 227 mg/dL H 70-100 Mar 21, 2021 06:45 AM [facility] ALBUMIN Specim en Type: PLASMA No comment enter ed. Ordering Provid er: LISBET WASHINGTON V Report Released Date/Time: Mar 20, 2021 10:27 AM Reporting Lab: [facility] [address] [facility] [address] Performing Lab: [facility] [address] [facility] [address] ALBUMIN 3.5 g/dL 3.5-5.2 Mar 21, 2021 06:45 [facility] BASIC METABOLIC Specimen Type: PLASMA AM PANEL+MG No comment enter ed. Ordering Provid er: RODO PINTO Report Released Date/Time: Mar 20, 2021 02:43 PM Reporting Lab: [facility] [address] [facility] [phone] Performing Lab: [facility] [address] [facility] [address] CREATININE 1.5 mg/dL H 0.7-1.2 UREA NITROGEN 26 mg/dL 8-26 GLUCOSE 207 mg/dL H 74-100 SODIUM 140 mmol/L 136-145 POTASSIUM 4.4 mmol/L 3.5-5.1 CHLORIDE 109 mmol/L H 98-107 CO2 24 mmol/L 22-29 CALCIUM 9.0 mg/dL 8.4-10.2 MAGNESIUM 2.3 mg/dL 1.6-2.6 ANION GAP 7 mmol/L 5-15 ESTIMATED GFR(eGFR) 46 L >60 Mar 21, 2021 06:38 [facility] FINGERSTICK GLUCOSE Speci men Type: BLOOD AM Comment: Abram Welch Notified Ordering Provid er: TEAM,CARD II Report Released Date/Time: Mar 21, 2021 07:23 AM Reporting Lab: [facility] [address] [facility] [address] Performing Lab: [facility] [address] [facility] [address] FINGERSTICK GLUCOSE 159 mg/dL H 70-100 Mar 20, 2021 08:27 [facility] FINGERSTICK GLUCOSE Speci men Type: BLOOD PM Comment: Abram Welch Notified Ordering Provid er: TEAM,CARD II Report Released Date/Time: Mar 20, 2021 10:52 PM Reporting Lab: [facility] [address] [facility] [address] Performing Lab: [facility] [address] [facility] [address] FINGERSTICK GLUCOSE 224 mg/dL H 70-100 Mar 20, 2021 05:06 [facility] FINGERSTICK GLUCOSE Speci men Type: BLOOD PM Comment: Abram Welch Notified Ordering Provid er: TEAM,CARD II Report Released Date/Time: Mar 20, 2021 05:27 PM Reporting Lab: [facility] [address] [facility] [address] Performing Lab: [facility] [address] [facility] [address] FINGERSTICK GLUCOSE 183 mg/dL H 70-100 Mar 20, 2021 08:16 [facility] BASIC METABOLIC Specimen Type: PLASMA AM PANEL+MG No comment enter ed. Ordering Provid er: KATERIN JULIAN Report Released Date/Time: Mar 15, 2021 02:20 PM Reporting Lab: [facility] [address] Performing Lab: [facility] [address] CREATININE 1.6 mg/dL H 0.7-1.2 UREA NITROGEN 31 mg/dL H 8-26 GLUCOSE 216 mg/dL H 74-100 SODIUM 142 mmol/L 136-145 POTASSIUM 4.6 mmol/L 3.5-5.1 CHLORIDE 106 mmol/L 98-107 CO2 25 mmol/L 22-29 CALCIUM 9.3 mg/dL 8.4-10.2 MAGNESIUM 2.2 mg/dL 1.6-2.6 ANION GAP 11 mmol/L 5-15 ESTIMATED GFR(eGFR) 43 L >60 Mar 20, 2021 08:16 [facility] COVID-19 DIAGNOSTIC Speci men Type: NASOPHARYNGEAL AM PANEL (CEPHEID) Comment: Wiley samuel GeneXpert (618) Ordering Provid er: KATERIN JULIAN Report Released Date/Time: Mar 15, 2021 02:20 PM Reporting Lab: [facility] [address] Performing Lab: [facility] [address] COVID-19 (CEPHEID) Not Detected Not Dete cted Mar 05, 2021 09:42 [facility] BASIC METABOLIC Specimen Type: PLASMA AM PANEL+MG No comment enter ed. Ordering Provid er: VICENTE PELAEZ Report Released Date/Time: Feb 19, 2021 01:50 PM Reporting Lab: [facility] [address] Performing Lab: [facility] [address] CREATININE 1.4 mg/dL H 0.7-1.2 UREA NITROGEN 22 mg/dL 8-26 GLUCOSE 241 mg/dL H 74-100 SODIUM 139 mmol/L 136-145 POTASSIUM 4.6 mmol/L 3.5-5.1 CHLORIDE 105 mmol/L 98-107 CO2 24 mmol/L 22-29 CALCIUM 9.1 mg/dL 8.4-10.2 MAGNESIUM 2.1 mg/dL 1.6-2.6 ANION GAP 10 mmol/L 5-15 ESTIMATED GFR(eGFR) 50 L >60 Feb 19, 2021 12:03 PM [facility] AST/SGOT Specim en Type: PLASMA No comment enter ed. Ordering Provid er: SAKSHI CROUCH Report Released Date/Time: January 17, 2021 05:13 PM Reporting Lab: [facility] [address] [facility] [address] Performing Lab: [facility] [address] [facility] [address] AST/SGOT 28 U/L <34 Feb 19, 2021 12:03 PM [facility] ALT/SGPT Specim en Type: PLASMA No comment enter ed. Ordering Provid er: SAKSHI CROUCH Report Released Date/Time: January 17, 2021 05:13 PM Reporting Lab: [facility] [address] [facility] [address] Performing Lab: [facility] [address] [facility] [address] ALT/SGPT 32 U/L <55 Feb 19, 2021 [facility] CREATININE(INCLUDES EGFR) Sp ecimen Type: PLASMA 12:03 PM No comment enter ed. Ordering Provid er: SAKSHI CROUCH Report Released Date/Time: January 17, 2021 05:13 PM Reporting Lab: [facility] [address] [facility] [address] Performing Lab: [facility] [address] [facility] [address] CREATININE 1.4 mg/dL H 0.7-1.2 ESTIMATED GFR(eGFR) 50 L >60 Feb 19, 2021 12:03 PM [facility] POTASSIUM Specim en Type: PLASMA No comment enter ed. Ordering Provid er: SAKSHI CROUCH Report Released Date/Time: January 17, 2021 05:13 PM Reporting Lab: [facility] [address] [facility] [address] Performing Lab: [facility] [address] [facility] [address] POTASSIUM 4.2 mmol/L 3.5-5.1 Feb 19, 2021 12:03 PM [facility] HEMOGLOBIN A1C Specim en Type: BLOOD No comment enter ed. Ordering Provid er: SAKSHI CROUCH Report Released Date/Time: January 17, 2021 05:13 PM Reporting Lab: [facility] [address] [facility] [address] Performing Lab: [facility] [address] [facility] [address] HEMOGLOBIN A1C 10.0 H 4.0-6.0 Social History: Smoking Status (Most current) and Tobacco Use (All prior to encounter date) This section includes the most current, and the historical, smoking and tobacco-related health factors from the NE facility where the Encounter took place.Current Smoking Status This section includes the most current smoking, or tobacco-related health factor, from the NE facility where the Encounter took place. 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 The data comes from the NE facility where the Encounter took place. 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 [facility] Nov 15, 2020 10:00 AM VA-TOBACCO USE MED [place] [facility] Nov 15, 2020 10:00 AM VA-TOBACCO USER EVERY DAY [facility] Jun 21, 2019 02:29 PM VA-TOBACCO USE 30 YEARS OR MORE [facility] Jun 21, 2019 02:29 PM VA-TOBACCO USE ADVICE [place] [facility] Jun 21, 2019 02:29 PM 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 [facility] Jun 21, 2019 02:29 PM VA-TOBACCO USE MED NO [place] [facility] Jun 21, 2019 02:29 PM VA-TOBACCO USE [place] 30 MIN OF WAKEUP [facility] Jun 21, 2019 02:29 PM VA-TOBACCO USER EVERY DAY [facility] Jun 09, 2018 03:48 PM VA-TOBACCO USE 30 YEARS OR MORE [facility] Jun 09, 2018 03:48 PM [facility] Jun 09, 2018 03:48 PM 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 [facility] Jun 09, 2018 03:48 PM VA-TOBACCO USE MED NO [place] [facility] Jun 09, 2018 03:48 PM VA-TOBACCO USE [place] 30 MIN OF WAKEUP [facility] Jun 09, 2018 03:48 PM VA-TOBACCO USER EVERY DAY [facility] Jun 20, 2017 07:53 AM CURRENT TOBACCO USER [facility] Jun 19, 2016 08:41 AM CURRENT TOBACCO USER [facility] Jun 21, 2015 08:15 AM CURRENT TOBACCO USER [facility] Mar 22, 2014 10:03 AM CURRENT TOBACCO USER [facility] Mar 25, 2013 11:01 AM CURRENT TOBACCO USER [facility] Feb 05, 2012 08:55 AM CURRENT TOBACCO USER [facility] January 01, 2011 09:26 AM CURRENT TOBACCO USER [facility] Mar 07, 2010 10:02 AM CURRENT TOBACCO USER [facility] Feb 21, 2009 08:17 AM CURRENT TOBACCO USER [facility] Nov 06, 2007 10:02 AM CURRENT TOBACCO USER [facility] January 02, 2007 10:33 AM CURRENT TOBACCO USER [facility] Advance Directives: All historical and current Section Date Range: From patient's date of to the date document was created. This section includes ALL of a patient's completed or amended NE Advance and Rescinded Directives. The entries below indicate that a directive exists for the patient, but an actual copy is not included with this document. The data comes from all [place] facilities. Date Advance Directives Provider Source Mar 06, 2005 ADVANCE DIRECTIVE GANESH RODRIGUEZ [facility] Encounter Notes: All associated encounter notes This section contains the clinical notes associated to the Encounter. Date/Time Encounter Note(s) Provider Source Mar 15, 2021 09:46 AM CARDIOLOGY DIAGNOSTIC STUDY NOTE: KATERIN JULIAN [facility] LOCAL TITLE: CARDIOLOGY ELECTROPHYSIOLOGY NOTE STANDARD TITLE: CARDIOLOGY DIAGNOSTIC STUDY NOTE DATE OF NOTE: MAR 15, 2021@09:46 ENTRY DATE: MAR 15, 2021@09:47:04 AUTHOR: KATERIN JULIAN EXP COSIGNER: URGENCY: STATUS: COMPLETED CARDIOLOGY ELECTROPHYSIOLOGY NOTE Has ADDEN DA CARDIAC ELECTROPHYSIOLOGY TELEPHONE CLINIC NOTE This visit was completed via telephone CC: F/U atrial fibrillation HPI: Patient is a 75 year-old male with PMH incl uding DM2, HTN, COPD, tobacco use, CAD s/p DE with angioplasty to RCA in 1993, s/p [...] and consideration of PVI down the road. Dr. Evan gomez requested I follow up with patient once he had had adequate anticoagulation to arrange for dofetilide admission. I contacted patient today ov er the phone to discuss. He reports no missed doses of apixaban in the last month. He reports doing well - denies current palpitations, dyspnea on exertion, chest pain/pr essure, lightheadedness, dizziness, presyncope, syncope, orthopnea, PND, or LE edema. PAST MEDICAL HISTORY Active problems - Computerized Problem List is t he source for the followin. Status post left inguinal hernia repair 2. Chronic low back pain 3. Thrombocytopenia (SNOMED CT [id number]) 4. Chronic obstructive pulmonary disease (SNOME D CT [id number]) - FEV1/FVC (05/2011) 2.47/3.46. FEV1 58% pred. FEV1% 70. 5. History of adenomatous polyp of colon (SNOME D CT [id number]) 6. Type 2 diabetes mellitus 7. Hypertension 8. Coronary artery disease - S/P inferior DE in 1993. - S/P atherectomy RCA in 1993. - S/P CABG x 3 in 2010. 9. Chronic systolic heart failure - S/P ICD placement in 2011. - Echo (12/2020 ANW) EF 23%, LAE, mod global hyp okinesis. 10. Hyperlipidemia 11. Tobacco use 12. Cardiac defibrillator in situ 13. Peripheral neuropathy 14. Persistent atrial fibrillation -----PRIOR CARDIAC TESTING----- -Echocardiogram (01/11/21): 1. Severely increased left ventricular size, mil [...] Mild-moderate tricuspid regurgitation 7. Echo contrast was administrered to enhance vi sualization of all left ventricular segments. -Echo (12/11/11): Summary: 1. Left ventricular ejection fraction, by visual estimation, is 30 to 35%. 2. Moderately dilated left atrium. 3. Multiple segmental abnormalities exist. See f indings. 4. Impaired relaxation pattern of LV diastolic f illing. 5. Mild concentric left ventricular hypertrophy. 6. The left ventricular internal size is mild to moderately increased. 7. Mildly dilated right atrium. 8. 27.5 mmHg plus right atrial pressure = pulmon jorge a artery systolic pressure. In comparison to the previous echocardio gram(s): There are no prior studies on this patient for comparison purposes. -Latest EKG (01/17/21): AF with PVCs 89 bpm, RBBB, QTc ~500 msecs ALLERGIES LISINOPRIL (Nov 09, 2007) FACILITY ALLERGY/ADR -------- No Remote Allergy/ADR Data available for this hi meryl [facility] LISINOPRIL MEDICATIONS Active and Recently Outpatient Medicatio ns (excluding [...] TABLET BY MOUTH SAMI RY 12 ACTIVE HOURS TO PREVENT BLOOD CLOTS, STROKE 4) ASPIRIN 81MG EC TAB TAKE ONE TABLET BY MOUTH EVERY ACTIVE DAY 5) ATORVASTATIN CALCIUM 80MG TAB TAKE ONE-HALF T ABLET BY ACTIVE MOUTH AT BEDTIME FOR CHOLESTEROL 6) DIGOXIN 0.125MG TAB TAKE ONE TABLET BY MOUTH EVERY ACTIVE DAY 7) EMPAGLIFLOZIN 25MG TAB TAKE ONE TABLET BY FLORY TH EVERY ACTIVE DAY 8) FLUTICASONE 230/SALMET 21MCG 120D INHL INHALE 1 PUFF ACTIVE (S) BY INHALATION EVERY 12 HOURS RINSE MOUTH AFTER EACH USE; REPLACES SYMBICORT 9) FUROSEMIDE 40MG TAB TAKE ONE TABLET BY MOUTH EVERY ACTIVE DAY 10) GABAPENTIN 300MG CAP TAKE TWO CAPSULES BY MO UTH THREE ACTIVE TIMES A DAY FOR LEG PAIN 11) GLIPIZIDE 10MG TAB TAKE TWO TABLETS BY MOUTH TWICE A ACTIVE DAY TAKE 30 MINUTES BEFORE MEAL FOR DIABETES 12) METFORMIN HCL 1000MG TAB TAKE ONE TABLET BY MOUTH TWO ACTIVE TIMES A DAY FOR DIABETES 13) METOPROLOL SUCCINATE 25MG SA TAB TAKE ONE AN D ACTIVE ONE-HALF TABLETS BY MOUTH EVERY DAY FOR HEART 14) NITROGLYCERIN 0.4MG SL TAB DISSOLVE ONE TABL ET UNDER ACTIVE THE TONGUE ONCE FOR CHEST PAIN * MAY REPEAT SAMI RY 5 MINUTES--NO MORE THAN 3 TOTAL 15) SACUBITRIL 24MG/VALSARTAN 26MG TAB TAKE 1 TA BLET BY ACTIVE MOUTH TWICE A DAY FOR HEART FAILURE 16) SEMAGLUTIDE 0.5MG/0.375ML INJ PEN 1.5ML INJE CT 0.25MG ACTIVE UNDER THE SKIN EVERY WEEK FOR 4 WEEKS, THEN INJ ECT 0.5MG EVERY WEEK FOR DIABETES -MULTIPLE DOSES P ER PEN 17) VITAMIN B COMPLEX CAP TAKE 1 CAPSULE BY MOUT H EVERY ACTIVE DAY FOR NUTRITION Active Non-VA Medications Status 1) Non-VA ASCORBIC ACID 500MG TAB 1000MG EVERY D AY ACTIVE 2) Non-VA MARINE LIPID (FISH OIL) CAP,ORAL MOUTH ACTIVE 3) Non-VA MULTIVITAMINS CAP/TAB MOUTH ACTIVE 4) Non-VA NON VA MED NOT LISTED MISCELLANEOUS CA TS CLAW ACTIVE MOUTH 21 Total Medications No Active Remote Medications for this patient LABS SODIUM 139 (03/05/21) POTASSIUM 4.6 (03/05/21) MAGNESIUM 2.1 (03/05/21) UREA NITROGEN 22 (03/05/21) CREATININE 1.4 H (03/05/21) GLUCOSE 241 H (03/05/21) WBC 8.30 (10/27/20) HGB 16.7 (10/27/20) PLT 78 L (10/27/20) Collection DT Specimen Test Name Result Units Re f Range 12/13/2016 09:40 PLASMA TSH 2.55 uIU/mL 0.30 - 5 .00 09/11/2011 08:06 PLASMA TSH 2.36 uIU/mL 0.3 - 6. 0 Collection DT Specimen Test Name Result Units Re f Range 12/03/2011 14:20 PLASMA!! BILIRUBIN, TOTAL 0.5 m g/dL 0.2 - 1.0 12/03/2011 14:20 PLASMA!! ALKALINE PHOSPHAT 74 U /L 50 - 136 02/19/2021 12:03 PLASMA AST/SGOT 28 U/L Ref: <=3 4 02/19/2021 12:03 PLASMA ALT/SGPT 32 U/L Ref: <=5 5 ASSESSMENT/PLAN 1. Apparently persistent atr ial fibrillation: Patient has single chamber device making detection of AFib dif ficult, but presenting EGM on remote today does show irregular rhythm. He has been on apixaban 5 mg b id for anticoagulation since diagnosis in December and denies any missed doses in the past month. He is tolerating anticoagulation with no bleeding concern s. CHADSVASC score is at least 5 (age, CHF, HTN, DM, CAD). -I discussed Dr. Villasenor's recomm endation for dofetilide initiation. We will arrange for admission . QTc is around 500 msecs, but does have RBBB so allow up to 550 msecs. On no other QT prolonging medications from my review. Creatinine clearance > 60. Mild LVH on latest ec ho from OSH. 2. 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 Pelaez, on me dical therapy with metoprolol succinate, digoxin, Entresto, emplagliflozin 3. Single-chamber ICD in place: Brief RVR episod es, overall appears rate controlled. Follow up: will be arranged after dofetilide adm it Time spent: 35 minutes Katerin Julian PA-C Cardiac Electrophysiology [facility] /billy/ KATERIN JULIAN PA-C [employer] Signed: 03/16/2021 10:31 03/20/2021 ADDENDUM STATUS: COMPLETED Device is nearing ANJANA - we should consider upgra ding to DC-ICD at time of generator replacement. /billy/ KATERIN JULIAN PA-C [employer] [employer] Signed: 03/20/2021 10:51
--- OUTSIDE RECORDS SUMMARY | 2022-04-02 16:07 | XMS_ITS | Encounter Summary ---
:1945 Author Organization Department [facility] Address [address] [place], [place] [address] Care Team Providers Name Role Phone CROUCH [...] MEDICARE MEDICARE PART Jun 25, PART B [id number] Saumya QUINONES PATIENT (WNR) (M) B 2011 78A 0 AVID MEDICARE MEDICARE PART Sep 25, PART A [id number] Saumya QUINONES PATIENT (WNR) (M) A 2009 78A 0 AVID MEDICARE MEDICARE PART Sep 25, PART A [id number] Saumya MICHELE (WNR) (M) A 2009 78A [id number] AVID MEDICARE MEDICARE PART Sep 25, PART B [id number] Saumya MICHELE (WNR) (M) B 2009 78A [phone] AVID Selected Encounter This section includes the information on record at [place] for the Encounter. Date/Time Encounter Type Encounter Reason Provider Source Description Nov 19, 2021 REM INTERROG CIED DEVICES ICD-10-CM Z95.810 GUILLERMO MOREJON 12:45 PM EVL PM/IDS Presence of ORY automatic (implantable) cardiac defibrillator with Provider Comments: Presence of automatic (implantable) cardiac defibrillator IHE Encounter Template Text not used by [place] Assessments - Encounter Diagnoses This section includes the primary and secondary diagnoses documented for the Encounter. Date/Time Primary/Secondary Diagnosis Name Provider Source Diagnosis Nov 26, 2021 PRIMARY Presence of GARETH GUZMÁN 10:31 AM automatic M [facility] (implantable) cardiac defibrillator Plan of Treatment: Future Appointments (+ 6 months) and Future Tests (+/- 45 days) The Plan of Treatment section includes future care activities for the patient from all [place] [facility] This section includes future appointments and future orders which are active, pending orscheduled.Future Appointments This section includes appointments that were scheduled to occur 6 months from the date of the Encounter, up to a maximum of 20 appointments. The data comes from all [facility]. Appointment Date/Time Appointment Type Appointment Facili ty Name Nov 21, 2021 10:00 AM AMBULATORY - SURGERY [facility] Nov 29, 2021 06:30 AM AMBULATORY - NONE [facility] Nov 29, 2021 07:30 AM AMBULATORY - MEDICINE [facility] Nov 29, 2021 08:00 AM AMBULATORY - MEDICINE [facility] Dec 21, 2021 09:30 AM AMBULATORY - NONE [facility] January 07, 2022 01:30 PM AMBULATORY - MEDICINE [facility] Feb 05, 2022 07:00 AM AMBULATORY - NONE [facility] Feb 07, 2022 09:30 AM AMBULATORY - NONE [facility] Feb 13, 2022 10:00 AM AMBULATORY - NONE [facility] Mar 21, 2022 09:30 AM AMBULATORY - NONE [facility] Active, Pending, and Scheduled Orders This section includes a listing of several types of active, pending, and scheduled orders, including clinic medications orders, diagnostic test orders, procedure orders and consult orders; where the start date of the order is 45 days before the date of the Encounter or 45 days after the date of the Encounter. The data comes from all [facility]. Test Date/Time Test Type Test Details Facility Name Nov 29, 2021 06:30 AM Laboratory - Blood Bank TYPE & SCREEN - LA B [facility] Order BLOOD SP Dec 15, 2021 12:00 AM Laboratory - Chemistry BASIC METABOLIC MIN [facility] Order PANEL+MG PLASMA SP Lab Results: +/- 30 days of the [...] Result - Unit Interpretation Reference Range Comment Nov 30, 2021 11:26 [facility] FINGERSTICK GLUCOSE Speci men Type: BLOOD AM Comment: Save R esult Nurse Notified Ordering Provid er: IRENE BURNS Report Released Date/Time: Nov 30, 2021 11:46 AM Reporting Lab: [facility] [address] [facility] [address] Performing Lab: [facility] [address] [facility] [address] FINGERSTICK GLUCOSE 284 mg/dL H 70-100 Nov 30, 2021 09:47 AM [facility] ALBUMIN Specim en Type: PLASMA No comment enter ed. Ordering Provid er: ELIUD DINERO Report Released Date/Time: Nov 29, 2021 07:53 PM Reporting Lab: [facility] [address] [facility] [address] Performing Lab: [facility] [address] [facility] [address] ALBUMIN 3.4 g/dL L 3.5-5.2 Nov 30, 2021 09:47 [facility] BASIC METABOLIC Specimen Type: PLASMA AM PANEL+MG No comment enter ed. Ordering Provid er: ANGIE MALHOTRA Report Released Date/Time: Nov 29, 2021 08:12 PM Reporting Lab: [facility] [address] [facility] [address] Performing Lab: [facility] [address] [facility] [address] CREATININE 1.2 mg/dL 0.7-1.2 UREA NITROGEN 18 mg/dL 8-26 GLUCOSE 342 mg/dL H 74-100 SODIUM 141 mmol/L 136-145 POTASSIUM 4.3 mmol/L 3.5-5.1 CHLORIDE 108 mmol/L H 98-107 CO2 26 mmol/L 22-29 CALCIUM 8.6 mg/dL 8.4-10.2 MAGNESIUM 1.5 mg/dL L 1.6-2.6 ANION GAP 7 mmol/L 5-15 CREAT EGFR(CKD-EPI) 63 >60 Nov 30, 2021 09:46 AM [facility] CBC Specim en Type: BLOOD No comment enter ed. Ordering Provid er: ANGIE MALHOTRA Report Released Date/Time: Nov 29, 2021 08:12 PM Reporting Lab: [facility] [address] [facility] [address] Performing Lab: [facility] [address] [facility] [address] WBC 10.61 10*3/uL 4.0-11.0 RBC 4.33 10*6/uL L 4.6-6.2 HGB 14.6 g/dL 13.5-17.9 HCT 45.2 41-54 MCV 104.4 fL H 80-100 MCH 33.7 pg H 27-33 MCHC 32.3 g/dL 32.0-37.5 PLT 71 10*3/uL L 150-400 MPV 13.9 fL H 7.4-10.4 RDW 14.7 H 11.5-14.5 IPF 17.8 H 0-10 Nov 30, 2021 06:09 [facility] FINGERSTICK GLUCOSE Speci men Type: BLOOD AM Comment: Abram Welch Notified Ordering Provid er: TEAMIRENE TWO Report Released Date/Time: Nov 30, 2021 06:32 AM Reporting Lab: [facility] [address] [facility] [address] Performing Lab: [facility] [address] [facility] [address] FINGERSTICK GLUCOSE 165 mg/dL H 70-100 Nov 29, 2021 07:35 [facility] FINGERSTICK GLUCOSE Speci men Type: BLOOD PM Comment: Abram Welch Notified Ordering Provid er: GRANTCARDS TWO Report Released Date/Time: Nov 29, 2021 07:48 PM Reporting Lab: [facility] [address] [facility] [address] Performing Lab: [facility] [address] [facility] [address] FINGERSTICK GLUCOSE 160 mg/dL H 70-100 Nov 29, 2021 06:52 [facility] FINGERSTICK GLUCOSE Speci men Type: BLOOD PM Comment: Abram rock Nurse Notified Ordering Provid er: SAKSHI CROUCH Report Released Date/Time: Nov 29, 2021 07:04 PM Reporting Lab: [facility] [address] [facility] [address] Performing Lab: [facility] [address] [facility] [address] FINGERSTICK GLUCOSE 161 mg/dL H 70-100 Nov 29, 2021 04:18 [facility] FINGERSTICK GLUCOSE Speci men Type: BLOOD PM No comment enter ed. Ordering Provid er: IRENE BURNS TWO Report Released Date/Time: Nov 29, 2021 08:08 PM Reporting Lab: [facility] [address] [facility] [address] Performing Lab: [facility] [address] [facility] [address] FINGERSTICK GLUCOSE 179 mg/dL H 70-100 Nov 29, 2021 03:26 [facility] POC ABG/ELECTROLYTES Spec imen Type: ARTERIAL BLOOD PM Comment: Sample Type = ARTERIAL Ordering Provid er: IRENE BURNS TWO Report Released Date/Time: Nov 29, 2021 07:53 PM Reporting Lab: [facility] [address] Performing Lab: [facility] [address] POC PH 7.321 L 7.35-7.45 POC PCO2 46.0 mm[Hg] H 35.00-45.00 POC PO2 103 mm[Hg] 80.0-105.0 POC TCO2 25 mmol/L 23.0-27.0 POC HCO3 23.8 mmol/L 22.0-26.0 POC BE ECT -2 mmol/L -2 POC SO2 97 95-98 POC SODIUM 145 mmol/L 138.0-146.0 POC POTASSIUM 3.5 mmol/L 3.50-5.00 POC HGB 16.0 g/dL 12.00-17.00 POC HCT 47 38.0-51.0 POC IONIZED CALCIUM 4.2 mg/dL L 4.50-5.30 Nov 29, 2021 03:24 [facility] FINGERSTICK GLUCOSE Speci men Type: BLOOD PM Comment: Save R esult Ordering Provid er: IRENE BURNS TWO Report Released Date/Time: Nov 29, 2021 08:08 PM Reporting Lab: [facility] [address] Performing Lab: [facility] [address] FINGERSTICK GLUCOSE 188 mg/dL H 70-100 Nov 29, 2021 02:06 [facility] POC ABG/ELECTROLYTES Spec imen Type: ARTERIAL BLOOD PM Comment: Sample Type = ARTERIAL Ordering Provid er: IRENE BURNS TWO Report Released Date/Time: Nov 29, 2021 07:53 PM Reporting Lab: [facility] [address] [facility] [address] Performing Lab: [facility] [address] [facility] [address] POC PH 7.313 L 7.35-7.45 POC PCO2 48.4 mm[Hg] H 35.00-45.00 POC PO2 93 mm[Hg] 80.0-105.0 POC TCO2 26 mmol/L 23.0-27.0 POC HCO3 24.5 mmol/L 22.0-26.0 POC BE ECT -2 mmol/L -2 POC SO2 96 95-98 POC SODIUM 144 mmol/L 138.0-146.0 POC POTASSIUM 3.5 mmol/L 3.50-5.00 POC HGB 16.3 g/dL 12.00-17.00 POC HCT 48 38.0-51.0 POC IONIZED CALCIUM 4.3 mg/dL L 4.50-5.30 Nov 29, 2021 02:04 [facility] FINGERSTICK GLUCOSE Speci men Type: BLOOD PM Comment: Save R esult Ordering Provid er: IRENE BURNS TWO Report Released Date/Time: Nov 29, 2021 08:08 PM Reporting Lab: [facility] [address] [facility] [address] Performing Lab: [facility] [address] FINGERSTICK GLUCOSE 236 mg/dL H 70-100 Nov 29, 2021 01:52 PM [facility] POC ACT Specim en Type: BLOOD No comment enter ed. Ordering Provid er: IRENE BURNS TWO Report Released Date/Time: Dec 03, 2021 01:31 PM Reporting Lab: [facility] [address] [facility] [address] Performing Lab: [facility] [address] [facility] [address] POC ACT 135 s 84-139 Nov 29, 2021 01:16 PM [facility] POC ACT Specim en Type: BLOOD No comment enter ed. Ordering Provid er: IRENE BURNS TWO Report Released Date/Time: Dec 03, 2021 01:30 PM Reporting Lab: [facility] [address] [facility] [address] Performing Lab: [facility] [address] [facility] [address] POC ACT 355 s 84-139 Nov 29, 2021 12:49 PM [facility] POC ACT Specim en Type: BLOOD No comment enter ed. Ordering Provid er: GRANTCARDS TWO Report Released Date/Time: Dec 03, 2021 01:30 PM Reporting Lab: [facility] [address] [facility] [address] Performing Lab: [facility] [address] [facility] [address] POC ACT 367 s 84-139 Nov 29, 2021 12:48 [facility] POC ABG/ELECTROLYTES Spec imen Type: ARTERIAL BLOOD PM Comment: Sample Type = ARTERIAL Ordering Provid er: IRENE BURNS TWO Report Released Date/Time: Nov 29, 2021 07:53 PM Reporting Lab: [facility] [address] [facility] [address] Performing Lab: [facility] [address] [facility] [address] POC PH 7.289 L 7.35-7.45 POC PCO2 52.6 mm[Hg] H 35.00-45.00 POC PO2 86 mm[Hg] 80.0-105.0 POC TCO2 27 mmol/L 23.0-27.0 POC HCO3 25.2 mmol/L 22.0-26.0 POC BE ECT -1 mmol/L -2 POC SO2 95 95-98 POC SODIUM 145 mmol/L 138.0-146.0 POC POTASSIUM 3.2 mmol/L L 3.50-5.00 POC HGB 16.7 g/dL 12.00-17.00 POC HCT 49 38.0-51.0 POC IONIZED CALCIUM 4.7 mg/dL 4.50-5.30 Nov 29, 2021 12:45 [facility] FINGERSTICK GLUCOSE Speci men Type: BLOOD PM Comment: Save R esult Ordering Provid er: IRENE BURNS TWO Report Released Date/Time: Nov 29, 2021 08:08 PM Reporting Lab: [facility] [address] [facility] [address] Performing Lab: [facility] [address] [facility] [address] FINGERSTICK GLUCOSE 186 mg/dL H 70-100 Nov 29, 2021 12:26 PM [facility] POC ACT Specim en Type: BLOOD No comment enter ed. Ordering Provid er: GRANTCARDS TWO Report Released Date/Time: Dec 03, 2021 01:30 PM Reporting Lab: [facility] [address] [facility] [address] Performing Lab: [facility] [address] [facility] [address] POC ACT 367 s 84-139 Nov 29, 2021 11:58 AM [facility] POC ACT Specim en Type: BLOOD No comment enter ed. Ordering Provid er: IRENE BURNS Report Released Date/Time: Dec 03, 2021 01:30 PM Reporting Lab: [facility] [address] [facility] [address] Performing Lab: [facility] [address] [facility] [address] POC ACT 338 s 84-139 Nov 29, 2021 11:53 [facility] FINGERSTICK GLUCOSE Speci men Type: BLOOD AM Comment: Save R esult Ordering Provid er: IRENE BURNS Report Released Date/Time: Nov 29, 2021 08:08 PM Reporting Lab: [facility] [address] [facility] [address] Performing Lab: [facility] [address] [facility] [address] FINGERSTICK GLUCOSE 225 mg/dL H 70-100 Nov 29, 2021 11:30 AM [facility] POC ACT Specim en Type: BLOOD No comment enter ed. Ordering Provid er: IRENE BURNS TWO Report Released Date/Time: Dec 03, 2021 01:30 PM Reporting Lab: [facility] [address] [facility] [address] Performing Lab: [facility] [address] [facility] [address] POC ACT 355 s 84-139 Nov 29, 2021 11:26 [facility] POC ABG/ELECTROLYTES Spec imen Type: ARTERIAL BLOOD AM Comment: Sample Type = ARTERIAL Ordering Provid er: IRENE BURNS TWO Report Released Date/Time: Nov 29, 2021 07:53 PM Reporting Lab: [facility] [address] [facility] [address] Performing Lab: [facility] [address] [facility] [address] POC PH 7.317 L 7.35-7.45 POC PCO2 52.3 mm[Hg] H 35.00-45.00 POC PO2 81 mm[Hg] 80.0-105.0 POC TCO2 28 mmol/L H 23.0-27.0 POC HCO3 26.8 mmol/L H 22.0-26.0 POC BE ECT 1 mmol/L -2 POC SO2 94 L 95-98 POC SODIUM 143 mmol/L 138.0-146.0 POC POTASSIUM 3.5 mmol/L 3.50-5.00 POC HGB 17.3 g/dL H 12.00-17.00 POC HCT 51 38.0-51.0 POC IONIZED CALCIUM 4.8 mg/dL 4.50-5.30 Nov 29, 2021 11:06 [facility] FINGERSTICK GLUCOSE Speci men Type: BLOOD AM No comment enter ed. Ordering Provid er: IRENE BURNS Report Released Date/Time: Nov 29, 2021 08:08 PM Reporting Lab: [facility] [address] [facility] [address] Performing Lab: [facility] [address] [facility] [address] FINGERSTICK GLUCOSE 221 mg/dL H 70-100 Nov 29, 2021 11:02 AM [facility] POC ACT Specim en Type: BLOOD No comment enter ed. Ordering Provid er: IRENE BURNS Report Released Date/Time: Dec 03, 2021 01:30 PM Reporting Lab: [facility] [address] [facility] [address] Performing Lab: [facility] [address] [facility] [address] POC ACT 294 s 84-139 Nov 29, 2021 10:26 AM [facility] POC ACT Specim en Type: BLOOD No comment enter ed. Ordering Provid er: IRENE BURNS Report Released Date/Time: Dec 03, 2021 01:30 PM Reporting Lab: [facility] [address] [facility] [address] Performing Lab: [facility] [address] [facility] [address] POC ACT 329 s 84-139 Nov 29, 2021 10:06 AM [facility] POC ACT Specim en Type: BLOOD No comment enter ed. Ordering Provid er: IRENE BURNS Report Released Date/Time: Dec 03, 2021 01:30 PM Reporting Lab: [facility] [address] [facility] [address] Performing Lab: [facility] [address] [facility] [address] POC ACT 312 s 84-139 Nov 29, 2021 09:58 [facility] POC ABG/ELECTROLYTES Spec imen Type: ARTERIAL BLOOD AM Comment: Sample Type = ARTERIAL Ordering Provid er: IRENE BURNS Report Released Date/Time: Nov 29, 2021 07:53 PM Reporting Lab: [facility] [address] [facility] [address] Performing Lab: [facility] [address] [facility] [address] POC PH 7.334 L 7.35-7.45 POC PCO2 48.7 mm[Hg] H 35.00-45.00 POC PO2 96 mm[Hg] 80.0-105.0 POC TCO2 27 mmol/L 23.0-27.0 POC HCO3 25.9 mmol/L 22.0-26.0 POC BE ECT 0 mmol/L -2 POC SO2 97 95-98 POC SODIUM 143 mmol/L 138.0-146.0 POC POTASSIUM 4.1 mmol/L 3.50-5.00 POC HGB 17.3 g/dL H 12.00-17.00 POC HCT 51 38.0-51.0 POC IONIZED CALCIUM 4.9 mg/dL 4.50-5.30 Nov 29, 2021 09:56 [facility] FINGERSTICK GLUCOSE Speci men Type: BLOOD AM No comment enter ed. Ordering Provid er: IRENE BURNS TWO Report Released Date/Time: Nov 29, 2021 08:08 PM Reporting Lab: [facility] [address] [facility] [address] Performing Lab: [facility] [facility] [address] FINGERSTICK GLUCOSE 194 mg/dL H 70-100 Nov 29, 2021 09:45 AM [facility] POC ACT Specim en Type: BLOOD No comment enter ed. Ordering Provid er: IRENE BURNS TWO Report Released Date/Time: Dec 03, 2021 01:30 PM Reporting Lab: [facility] [address] [facility] [address] Performing Lab: [facility] [address] [facility] [address] POC ACT 269 s 84-139 Nov 29, 2021 08:59 AM [facility] POC ACT Specim en Type: BLOOD No comment enter ed. Ordering Provid er: IRENE BURNS TWO Report Released Date/Time: Dec 03, 2021 01:30 PM Reporting Lab: [facility] [address] [facility] [address] Performing Lab: [facility] [address] POC ACT 135 s 84-139 Nov 29, 2021 [facility] COVID-19 AND FLU/RSV Specime n Type: NASOPHARYNGEAL 07:05 AM DIAG PANEL(CEPHEID) Comment: Ce pheid GeneXpert (618) Ordering Provid er: KATHERINE FIGUEROA Report Released Date/Time: Oct 29, 2021 12:22 PM Reporting Lab: [facility] [address] Performing Lab: [facility] [address] COVID-19 (CEPHEID) Not Detected Not Dete cted INFLUENZA A (PCR) Not Detected Not Detec susanne INFLUENZA B (PCR) Not Detected Not Detec susanne RSV (PCR) Not Detected Not Detected Nov 29, 2021 [facility] BASIC METABOLIC Specimen Typ e: PLASMA 06:38 AM PANEL+MG No comment enter ed. Ordering Provid er: KATHERIEN FIGUEROA Report Released Date/Time: Oct 29, 2021 12:22 PM Reporting Lab: [facility] [address] Performing Lab: [facility] [address] CREATININE 1.4 mg/dL H 0.7-1.2 UREA NITROGEN 23 mg/dL 8-26 GLUCOSE 201 mg/dL H 74-100 SODIUM 143 mmol/L 136-145 POTASSIUM 4.3 mmol/L 3.5-5.1 CHLORIDE 108 mmol/L H 98-107 CO2 28 mmol/L 22-29 CALCIUM 9.9 mg/dL 8.4-10.2 MAGNESIUM 1.9 mg/dL 1.6-2.6 ANION GAP 7 mmol/L 5-15 CREAT EGFR(CKD-EPI) 53 L >60 Nov 29, 2021 06:38 [facility] CBC Specimen Type: BLOOD AM No comment enter ed. Ordering Provid er: KATHERINE FIGUEROA Report Released Date/Time: Oct 29, 2021 12:22 PM Reporting Lab: [facility] [address] Performing Lab: [facility] [address] WBC 7.40 10*3/uL 4.0-11.0 RBC 5.17 10*6/uL 4.6-6.2 HGB 17.6 g/dL 13.5-17.9 HCT 52.7 41-54 MCV 101.9 fL H 80-100 MCH 34.0 pg H 27-33 MCHC 33.4 g/dL 32.0-37.5 PLT 88 10*3/uL L 150-400 MPV 14.3 fL H 7.4-10.4 RDW 14.4 11.5-14.5 IPF 18.0 H 0-10 Nov 29, 2021 [facility] PROTHROMBIN Specimen Typ e: PLASMA 06:38 AM TIME/INR No comment enter ed. Ordering Provid er: KATHERINE FIGUEROA Report Released Date/Time: Oct 29, 2021 12:22 PM Reporting Lab: [facility] [address] Performing Lab: [facility] [address] .INR 1.1 0.8-1.1 .PT 13.1 s H 9.4-12.5 Nov 29, 2021 [facility] ACT PART Specimen Typ e: PLASMA 06:38 AM THROMBO TIME No comment enter ed. Ordering Provid er: KATHERINE FIGUEROA Report Released Date/Time: Oct 29, 2021 12:22 PM Reporting Lab: [facility] [address] Performing Lab: [facility] [address] APTT 33.3 s 25.1-36.5 Advance Directives: All historical and current Section [...] Mar 06, 2005 ADVANCE DIRECTIVE GANESH RODRIGUEZ [facility] Radiology Reports: +/- 30 days of the encounter Radiology Reports For cases when an order for radiology services may have been completed prior to the date of the Encounter, the report list includes the Radiology Reports that were completed up to 30 days before date of the Encounter. For cases when an order for radiology services may have been completed after the date of the Encounter, the report list also includes the Radiology Reports that were completed up to 30days after date of the Encounter. The data comes from all [place] treatment facilities. Date/Time Radiology Report Provider Source Nov 30, 2021 07:05 AM CHEST 2 VIEWS PA AND LAT: MONET LUDWIG [facility] PAUL MICHELEEN [id number] -[birth year] M Exm Date: NOV 30, 2021@07:05 Req Phys: CHERRY MENDOZA Pat Loc: 3LSOB/ 2@08:05 Img Loc: MAIN X-RAY Service: zzcard sect (Case [id number] COMPLETE) CHEST 2 VIEWS PA AND LAT (R AD Detailed) CPT:08709 Reason for Study: s/p upgrade ICD adding an A l ead Clinical History: Post ICD or Pacemaker: Verify Lead Placement. Gill IS NOT under investigation for COVID-19 or is COVID-19 negative s/p upgrade ICD adding an A lead Responsible pr ovider name and phone number to notify for critical findings if other than user placing the order and pager listed below: User placing orders pager: [phone] LAST CREATININE 1.4 H (11/29/21) Report Status: Verified Date Reported: NOV 30, 2021 Date Verified: NOV 30, 2021 Multi Share Program Coordinator E-Sig:/ES/MONET LUDWIG MD, FACR, C CD Report: EXAMINATION: CHEST 2 VIEWS PA AND LAT 11/30/2021 7:05 AM INDICATION: s/p upgrade ICD adding an A lead COMPARISON: Portable chest x-ray November 29, 2021. FINDINGS: The tips of the leads again appear to project over the right atrium and right ventricle. No pneumothor ax identified. The pulmonary vasculature is within normal limits. Mild blunting of both costophrenic angles suggesting the possibi lity of small bilateral pleural effusions. The lungs appear c lear of infiltrate. Impression: No significant change. Primary Interpreting Staff: MONET LUDWIG MD, FACR, STAFF RADIOLOGIST (V erifier) /BSF Nov 29, 2021 06:25 PM CHEST 1 VIEW: LETYMAGDALENE JOLLY [facility] PAUL MICHELEEN [id number] -[birth year] 9 M Exm Date: NOV 29, 2021@18:25 Req Phys: CHERRY MENDOZA Pat Loc: [facility] [address] [facility] (Req'g Loc) Img Loc: MAIN X-RAY Service: Unknown (Case [id number] COMPLETE) CHEST 1 VIEW (RAD Detailed) CPT:81522 Reason for Study: s/p upgrade ICD adding an A l ead Clinical History: Immediate Post-Op Pacemaker/ICD placement Gill IS NOT under investigation for COVID-19 or is COVID-19 negative s/p upgrade his ICD to dual chamber (adding an A lead) Responsible provider name and phone number to n otify for critical findings if other than user placing the order a nd pager listed below: User placing orders pager: [phone] LAST CREATININE 1.4 H (11/29/21) Report Status: Verified Date Reported: NOV 29, 2021 Date Verified: NOV 29, 2021 Multi Share Program Coordinator E-Sig:/ES/MAGDALENE DAVIDSON MD Report: DATE/TIME REGISTERED: 11/29/2021 6:25 PM STUDY: CHEST 1 VIEW HISTORY: s/p upgrade ICD adding an A lead Prior study 02/05/2012. FINDINGS: A single AP view of the chest is rece ived. The current study reveals interval addition of a 2nd left s ubclavian lead which is believed to be in the right atrium. Th e cardiac silhouette has increased in size. Median sterno estella wires are again noted. There is mild pulmonary venous con gestion. No definite infiltrates are identified. There is n o evidence of pneumothorax. Impression: 1. New left subclavian lead. No evidence of pne umothorax. 2. Cardiomegaly and mild pulmonary venous conge stion. Primary Interpreting Staff: MAGDALENE DAVIDSON MD, RADIOLOGIST (Multi Share Program Coordinator) /LUAN
--- OUTSIDE RECORDS SUMMARY | 2022-04-02 16:07 | XMS_ITS | Encounter Summary ---
:1945 Author Organization Department [facility] Address [address] [place], [place] [id number] Care Team Providers Name Role Phone CROUCH [...] MEDICARE MEDICARE PART Jun 25, PART B [id number] Saumya QUINONES PATIENT (WNR) (M) B 2011 78A 0 AVID MEDICARE MEDICARE PART Sep 25, PART A [phone] Saumya QUINONES PATIENT (WNR) (M) A 2009 78A 0 AVID MEDICARE MEDICARE PART Sep 25, PART A [id number] Saumya MICHELE (WNR) (M) A 2009 [id number] [phone] AVID MEDICARE MEDICARE PART Sep 25, PART B [id number] Saumya MICHELE ATTHOMAS (WNR) (M) B 2009 [id number] [phone] [facility]ID Selected Encounter This section includes the information on record at [place] for the Encounter. Date/Time Encounter Type Encounter Description Reason Provider Source Feb 12, 2022 10:58 Outpatient Encounter EVENT (HISTORICAL) AM [facility] Encounter Template Text not used by [facility] Plan of Treatment: Future Appointments (+ 6 months) and Future Tests (+/- 45 days) The Plan of Treatment section includes future care activities for the patient from all [place] treatmentfacilities. This section includes future appointments and future orders which are active, pending orscheduled.Future Appointments This section includes appointments that were scheduled to occur 6 months from the date of the Encounter, up to a maximum of 20 appointments. The data comes from all [place] treatment facilities. Appointment Date/Time Appointment Type Appointment Facili ty Name Feb 13, 2022 10:00 AM AMBULATORY - NONE [facility] Mar 21, 2022 09:30 AM AMBULATORY - NONE [facility] Lab [...] Result - Unit Interpretation Reference Range Comment Feb 13, 2022 09:28 AM [facility] HEMOGLOBIN A1C Specim en Type: BLOOD No comment enter ed. Ordering Provid er: JAYY SAMS Report Released Date/Time: Feb 07, 2022 04:30 PM Reporting Lab: [facility] [address] [facility] [id number] [facility] [id number] HEMOGLOBIN A1C 8.5 H 4.0-6.0 Advance Directives: All historical and current Section Date Range: From patient's date of to the date document was created. This section includes ALL of a patient's completed or amended [place] Advance and Rescinded Directives. The entries below indicate that a directive exists for the patient, but an actual copy is not included with this document. The data comes from all [facility]. Date Advance Directives Provider Source Mar 06, 2005 ADVANCE DIRECTIVE GANESH RODRIGUEZ [facility]
--- OUTSIDE RECORDS SUMMARY | 2022-04-02 16:07 | XMS_ITS | Encounter Summary ---
:1945 Author Organization [facility] Address [address] [place], [place] [address] Support Name Relationship Address Phone NIDIA MICHELE Unavailable [address] [place] [phone] NIDIA MICHELE Unavailable [address] [phone] [place] [phone] Insurance Providers: All historical and current Section [...] MEDICARE MEDICARE PART Jun 25, PART B [id number] Saumya QUINONES PATIENT (WNR) (M) B 2011 78A 0 AVID MEDICARE MEDICARE PART Sep 25, PART A [id number] Saumya QUINONES PATIENT (WNR) (M) A 2009 78A 0 AVID MEDICARE MEDICARE PART Sep 25, PART A [id number] Saumya MICHELE (WNR) (M) A 2009 78A [id number] AVID MEDICARE MEDICARE PART Sep 25, PART B [id number] Saumya MICHELE (WNR) (M) B 2009 78A [id number] AVID Selected Encounter This section includes the information on record at [place] for the Encounter. Date/Time Encounter Type Encounter Description Reason Provider Source Dec 03, 2021 06:34 Outpatient Encounter EVENT (HISTORICAL) AM IHE Encounter [...] 20 appointments. The data comes from all [facility]. Appointment Date/Time Appointment Type Appointment Facili ty Name Dec 21, 2021 09:30 AM AMBULATORY - NONE [facility] January 07, 2022 01:30 PM AMBULATORY - MEDICINE [facility] Feb 05, 2022 07:00 AM AMBULATORY - NONE [facility] Feb 07, 2022 09:30 AM AMBULATORY - NONE [facility] Feb 13, 2022 10:00 AM AMBULATORY - [facility] Mar 21, 2022 09:30 AM AMBULATORY [facility] Active, Pending, and Scheduled Orders This section includes a listing of several types of active, pending, and scheduled orders, including clinic medications orders, diagnostic test orders, procedure orders and consult orders; where the start date of the order is 45 days before the date of the Encounter or 45 days after the date of the Encounter. The data comes from all [facility]. Test Date/Time Test Type Test Details Facility Name Nov 29, 2021 06:30 AM Laboratory - Blood Bank TYPE & SCREEN - LA B [facility] Order BLOOD SP Dec 15, 2021 12:00 AM Laboratory - Chemistry BASIC METABOLIC [facility] Order PANEL+MG PLASMA SP Lab Results: +/- 30 days of the encounter This section includes the Chemistry and Hematology Lab Results on [facility] with [facility] for the [facility]. Radiology Reports and Pathology Reports are provided separately, in subsequent sections.Lab Results This section contains the Chemistry/Hematology Results that were resulted 30 days before or 30 daysafter the date of the Encounter. Date/Time Source Result Type Result - Unit Interpretation Reference Range Comment Nov 30, 2021 11:26 [facility] GLUCOSE Speci men Type: BLOOD AM Comment: [place] Nurse Notified Ordering Provid er: TEAM,CARDS TWO Report Released Date/Time: Nov 30, 2021 11:46 AM Reporting Lab: [facility] [address] [facility] [address] Performing Lab: [facility] [address] [facility] [address] F[facility]ICK GLUCOSE 284 H 70-100 Nov 30, 2021 09:47 AM [facility] ALBUMIN Specim en Type: PLASMA No comment enter ed. Ordering Provid er: ELIUD DINERO Report Released Date/Time: Nov 29, 2021 07:53 PM Reporting Lab: [facility] [address] [facility] [address] Performing Lab: [facility] [address] [facility] [address] ALBUMIN 3.4 L 3.5-5.2 Nov 30, 2021 09:47 [facility] BASIC METABOLIC Specimen Type: PLASMA AM PANEL+MG No comment enter ed. Ordering Provid er: ANGIE MALHOTRA Report Released Date/Time: Nov 29, 2021 08:12 PM Reporting Lab: [facility] [address] [facility] [address] Performing Lab: [facility] [address] [facility] [address] CREATININE 1.2 0.7-1.2 UREA NITROGEN 18 8-26 GLUCOSE 342 H 74-100 SODIUM 141 136-145 POTASSIUM 4.3 3.5-5.1 CHLORIDE 108 H 98-107 CO2 26 22-29 CALCIUM 8.6 8.4-10.2 MAGNESIUM 1.5 L 1.6-2.6 ANION GAP 7 5-15 CREAT EGFR(CKD-EPI) 63 >60 Nov 30, 2021 09:46 AM [facility] CBC Specim en Type: BLOOD No comment enter ed. Ordering Provid er: ANGIE MALHOTRA Report Released Date/Time: Nov 29, 2021 08:12 PM Reporting Lab: [facility] [address] [facility] [address] Performing Lab: [facility] [address] [facility] [address] WBC 10.61 4.0-11.0 RBC 4.33 L 4.6-6.2 HGB 14.6 13.5-17.9 HCT 45.2 41-54 MCV 104.4 H 80-100 MCH 33.7 H 27-33 MCHC 32.3 32.0-37.5 PLT 71 L 150-400 MPV 13.9 H 7.4-10.4 RDW 14.7 H 11.5-14.5 IPF 17.8 H 0-10 Nov 30, 2021 06:09 [facility] F[employer]ICK GLUCOSE Speci men Type: BLOOD AM Comment: [place] Nurse Notified Ordering Provid er: TEAM,CARDS TWO Report Released Date/Time: Nov 30, 2021 06:32 AM Reporting Lab: [facility] [address] [facility] [address] Performing Lab: [facility] [address] [facility] [address] F[place] GLUCOSE 165 H 70-100 Nov 29, 2021 07:35 [facility] GLUCOSE Speci men Type: BLOOD PM Comment: [place] Nurse Notified Ordering Provid er: IRENE BURNS TWO Report Released Date/Time: Nov 29, 2021 07:48 PM Reporting Lab: [facility] [address] [facility] [address] Performing Lab: [facility] [address] [facility] [address] FING[place]ICK GLUCOSE 160 H 70-100 Nov 29, 2021 06:52 [facility] GLUCOSE Speci men Type: BLOOD PM Comment: [place] Nurse Notified Ordering Provid er: SAKSHI CROUCH Report Released Date/Time: Nov 29, 2021 07:04 PM Reporting Lab: [facility] [address] [facility] [address] Performing Lab: [facility] [address] [facility] [address] FING[place]ICK GLUCOSE 161 H 70-100 Nov 29, 2021 04:18 [facility] F[place] GLUCOSE Speci men Type: BLOOD PM No comment enter ed. Ordering Provid er: IRENE BURNS Report Released Date/Time: Nov 29, 2021 08:08 PM Reporting Lab: [facility] [address] [facility] [address] Performing Lab: [facility] [address] [facility] [address] FINGERSTICK GLUCOSE 179 H 70-100 Nov 29, 2021 03:26 [facility] POC ABG/ELECTROLYTES Spec imen Type: ARTERIAL BLOOD PM Comment: Sample Type = ARTERIAL Ordering Provid er: IRENE BURNS TWO Report Released Date/Time: Nov 29, 2021 07:53 PM Reporting Lab: [facility] [address] [facility] [address] Performing Lab: [facility] [address] [facility] [address] POC PH 7.321 L 7.35-7.45 POC PCO2 46.0 H 35.00-45.00 POC PO2 103 80.0-105.0 POC TCO2 25 23.0-27.0 POC HCO3 23.8 22.0-26.0 POC BE ECT -2 -2 POC SO2 97 95-98 POC SODIUM 145 138.0-146.0 POC POTASSIUM 3.5 3.50-5.00 POC HGB 16.0 12.00-17.00 POC HCT 47 38.0-51.0 POC IONIZED CALCIUM 4.2 L 4.50-5.30 Nov 29, 2021 03:24 [facility] F[employer] GLUCOSE Speci men Type: BLOOD PM Comment: Save R esult Ordering Provid er: TEAM,CARDS TWO Report Released Date/Time: Nov 29, 2021 08:08 PM Reporting Lab: [facility] [address] [facility] [address] Performing Lab: [facility] [address] F[place] GLUCOSE 188 H 70-100 Nov 29, 2021 02:06 [facility] POC ABG/ELECTROLYTES Spec imen Type: ARTERIAL BLOOD PM Comment: Sample Type = ARTERIAL Ordering Provid er: TEAM,CARDS TWO Report Released Date/Time: Nov 29, 2021 07:53 PM Reporting Lab: [facility] [address] [facility] [address] Performing Lab: [facility] [address] POC PH 7.313 L 7.35-7.45 POC PCO2 48.4 H 35.00-45.00 POC PO2 93 80.0-105.0 POC TCO2 26 23.0-27.0 POC HCO3 24.5 22.0-26.0 POC BE ECT -2 -2 POC SO2 96 95-98 POC SODIUM 144 138.0-146.0 POC POTASSIUM 3.5 3.50-5.00 POC HGB 16.3 12.00-17.00 POC HCT 48 38.0-51.0 POC IONIZED CALCIUM 4.3 L 4.50-5.30 Nov 29, 2021 02:04 [facility] F[employer]ICK GLUCOSE Speci men Type: BLOOD PM Comment: Save R esult Ordering Provid er: TEAM,CARDS TWO Report Released Date/Time: Nov 29, 2021 08:08 PM Reporting Lab: [facility] [address] [facility] [address] [facility] [address] F[employer] GLUCOSE 236 H 70-100 Nov 29, 2021 01:52 PM [facility] POC ACT Specim en Type: BLOOD No comment enter ed. Ordering Provid er: IRENE BURNS Report Released Date/Time: Dec 03, 2021 01:31 PM Reporting Lab: [facility] [address] [facility] [address] Performing Lab: [facility] [address] [facility] [address] POC ACT 135 84-139 Nov 29, 2021 01:16 PM [facility] POC ACT Specim en Type: BLOOD No comment enter ed. Ordering Provid er: IRENE BURNS TWO Report Released Date/Time: Dec 03, 2021 01:30 PM Reporting Lab: [facility] [address] [facility] [address] Performing Lab: [facility] [address] [facility] [address] POC ACT 355 84-139 Nov 29, 2021 12:49 PM [facility] POC ACT Specim en Type: BLOOD No comment enter ed. Ordering Provid er: IRENE BURNS Report Released Date/Time: Dec 03, 2021 01:30 PM Reporting Lab: [facility] [address] [facility] [address] Performing Lab: [facility] [address] [facility] [address] POC ACT 367 84-139 Nov 29, 2021 12:48 [facility] POC ABG/ELECTROLYTES Spec imen Type: ARTERIAL BLOOD PM Comment: Sample Type = ARTERIAL Ordering Provid er: IRENE BURNS Report Released Date/Time: Nov 29, 2021 07:53 PM Reporting Lab: [facility] [address] [facility] [address] Performing Lab: [facility] [address] [facility] [address] POC PH 7.289 L 7.35-7.45 POC PCO2 52.6 H 35.00-45.00 POC PO2 86 80.0-105.0 POC TCO2 27 23.0-27.0 POC HCO3 25.2 22.0-26.0 POC BE ECT -1 -2 POC SO2 95 95-98 POC SODIUM 145 138.0-146.0 POC POTASSIUM 3.2 L 3.50-5.00 POC HGB 16.7 12.00-17.00 POC HCT 49 38.0-51.0 POC IONIZED CALCIUM 4.7 4.50-5.30 Nov 29, 2021 12:45 [facility] F[employer] GLUCOSE Speci men Type: BLOOD PM Comment: Save R esult Ordering Provid er: IRENE BURNS Report Released Date/Time: Nov 29, 2021 08:08 PM Reporting Lab: [facility] [address] [facility] [address] Performing Lab: [facility] [address] [facility] [address] F[place]ICK GLUCOSE 186 H 70-100 Nov 29, 2021 12:26 PM [facility] POC ACT Specim en Type: BLOOD No comment enter ed. Ordering Provid er: IRENE BURNS TWO Report Released Date/Time: Dec 03, 2021 01:30 PM Reporting Lab: [facility] [address] [facility] [address] Performing Lab: [facility] [address] [facility] [address] POC ACT 367 84-139 Nov 29, 2021 11:58 AM [facility] POC ACT Specim en Type: BLOOD No comment enter ed. Ordering Provid er: IRENE BURNS Report Released Date/Time: Dec 03, 2021 01:30 PM Reporting Lab: [facility] [address] [facility] [address] Performing Lab: [facility] [address] [facility] [address] POC ACT 338 84-139 Nov 29, 2021 11:53 [facility] F[place] GLUCOSE Speci men Type: BLOOD AM Comment: Save R esult Ordering Provid er: IRENE BURNS Report Released Date/Time: Nov 29, 2021 08:08 PM Reporting Lab: [facility] [address] [facility] [address] Performing Lab: [facility] [address] [facility] [address] [place]ICK GLUCOSE 225 H 70-100 Nov 29, 2021 11:30 AM [facility] POC ACT Specim en Type: BLOOD No comment enter ed. Ordering Provid er: IRENE BURNS TWO Report Released Date/Time: Dec 03, 2021 01:30 PM Reporting Lab: [facility] [address] [facility] [address] Performing Lab: [facility] [address] [facility] [address] POC ACT 355 84-139 Nov 29, 2021 11:26 [facility] POC ABG/ELECTROLYTES Spec imen Type: ARTERIAL BLOOD AM Comment: Sample Type = ARTERIAL Ordering Provid er: IRENE BURNS TWO Report Released Date/Time: Nov 29, 2021 07:53 PM Reporting Lab: [facility] [address] [facility] [address] Performing Lab: [facility] [address] [facility] [address] POC PH 7.317 L 7.35-7.45 POC PCO2 52.3 H 35.00-45.00 POC PO2 81 80.0-105.0 POC TCO2 28 H 23.0-27.0 POC HCO3 26.8 H 22.0-26.0 POC BE ECT 1 -2 POC SO2 94 L 95-98 POC SODIUM 143 138.0-146.0 POC POTASSIUM 3.5 3.50-5.00 POC HGB 17.3 H 12.00-17.00 POC HCT 51 38.0-51.0 POC IONIZED CALCIUM 4.8 4.50-5.30 Nov 29, 2021 11:06 [facility] F[place]ER[employer]ICK GLUCOSE Speci men Type: BLOOD AM No comment enter ed. Ordering Provid er: IRENE BURNS TWO Report Released Date/Time: Nov 29, 2021 08:08 PM Reporting Lab: [facility] [address] [facility] [address] Performing Lab: [facility] [address] [facility] [address] FINGERSTICK GLUCOSE 221 H 70-100 Nov 29, 2021 11:02 AM [facility] POC ACT Specim en Type: BLOOD No comment enter ed. Ordering Provid er: IRENE BURNS TWO Report Released Date/Time: Dec 03, 2021 01:30 PM Reporting Lab: [facility] [address] [facility] [address] Performing Lab: [facility] [address] [facility] [address] POC ACT 294 84-139 Nov 29, 2021 10:26 AM [facility] POC ACT Specim en Type: BLOOD No comment enter ed. Ordering Provid er: IRENE BURNS TWO Report Released Date/Time: Dec 03, 2021 01:30 PM Reporting Lab: [facility] [address] [facility] [address] Performing Lab: [facility] [address] [facility] [address] POC ACT 329 84-139 Nov 29, 2021 10:06 AM [facility] POC ACT Specim en Type: BLOOD No comment enter ed. Ordering Provid er: IRENE BURNS TWO Report Released Date/Time: Dec 03, 2021 01:30 PM Reporting Lab: [facility] [address] [facility] [address] Performing Lab: [facility] [address] [facility] [address] POC ACT 312 84-139 Nov 29, 2021 09:58 [facility] POC ABG/ELECTROLYTES Spec imen Type: ARTERIAL BLOOD AM Comment: Sample Type = ARTERIAL Ordering Provid er: IRENE BURNS TWO Report Released Date/Time: Nov 29, 2021 07:53 PM Reporting Lab: [facility] [address] [facility] [address] Performing Lab: [facility] [address] [facility] [address] POC PH 7.334 L 7.35-7.45 POC PCO2 48.7 H 35.00-45.00 POC PO2 96 80.0-105.0 POC TCO2 27 23.0-27.0 POC HCO3 25.9 22.0-26.0 POC BE ECT 0 -2 POC SO2 97 95-98 POC SODIUM 143 138.0-146.0 POC POTASSIUM 4.1 3.50-5.00 POC HGB 17.3 H 12.00-17.00 POC HCT 51 38.0-51.0 POC IONIZED CALCIUM 4.9 4.50-5.30 Nov 29, 2021 09:56 [facility] FINGERSTICK GLUCOSE Speci men Type: BLOOD AM No comment enter ed. Ordering Provid er: IRENE BURNS TWO Report Released Date/Time: Nov 29, 2021 08:08 PM Reporting Lab: [facility] [address] [facility] [address] Performing Lab: [facility] [address] [facility] [address] F[place]ICK GLUCOSE 194 H 70-100 Nov 29, 2021 09:45 AM [facility] POC ACT Specim en Type: BLOOD No comment enter ed. Ordering Provid er: IRENE BURNS TWO Report Released Date/Time: Dec 03, 2021 01:30 PM Reporting Lab: [facility] [address] [facility] [address] Performing Lab: [facility] [address] [facility] [address] POC ACT 269 84-139 Nov 29, 2021 08:59 AM [facility] POC ACT Specim en Type: BLOOD No comment enter ed. Ordering Provid er: IRENE BURNS TWO Report Released Date/Time: Dec 03, 2021 01:30 PM Reporting Lab: [facility] [address] [facility] [address] Performing Lab: [facility] [address] [facility] [address] POC ACT 135 84-139 Nov 29, 2021 [facility] COVID-19 AND FLU/RSV Specime n Type: NASOPHARYNGEAL 07:05 AM DIAG PANEL(CEPHEID) Comment: Ce pheid GeneXpert (618) Ordering Provid er: KATHERINE FIGUEROA Report Released Date/Time: Oct 29, 2021 12:22 PM Reporting Lab: [facility] [address] [facility] [address] Performing Lab: [facility] [address] [facility] [address] COVID-19 (CEPHEID) Not Detected Not Dete cted INFLUENZA A (PCR) Not Detected Not Detec susanne INFLUENZA B (PCR) Not Detected Not Detec susanne RSV (PCR) Not Detected Not Detected Nov 29, 2021 [facility] PROTHROMBIN Specimen Typ e: PLASMA 06:38 AM TIME/INR No comment enter ed. Ordering Provid er: KATHERINE FIGUEROA Report Released Date/Time: Oct 29, 2021 12:22 PM Reporting Lab: [facility] [address] [facility] [address] Performing Lab: [facility] [address] [facility] [address] .INR 1.1 0.8-1.1 .PT 13.1 H 9.4-12.5 Nov 29, 2021 [facility] ACT PART Specimen Typ e: PLASMA 06:38 AM THROMBO TIME No comment enter ed. Ordering Provid er: KATHERINE FIGUEROA Report Released Date/Time: Oct 29, 2021 12:22 PM Reporting Lab: [facility] [address] [facility] [address] Performing Lab: [facility] [address] [facility] [address] APTT 33.3 25.1-36.5 Nov 29, 2021 [facility] BASIC METABOLIC Specimen Typ e: PLASMA 06:38 AM PANEL+MG No comment enter ed. Ordering Provid er: KATHERINE FIGUEROA Report Released Date/Time: Oct 29, 2021 12:22 PM Reporting Lab: [facility] [address] Performing Lab: [facility] [address] CREATININE 1.4 H 0.7-1.2 UREA NITROGEN 23 8-26 GLUCOSE 201 H 74-100 SODIUM 143 136-145 POTASSIUM 4.3 3.5-5.1 CHLORIDE 108 H 98-107 CO2 28 22-29 CALCIUM 9.9 8.4-10.2 MAGNESIUM 1.9 1.6-2.6 ANION GAP 7 5-15 CREAT EGFR(CKD-EPI) 53 L >60 Nov 29, 2021 06:38 [facility] CBC Specimen Type: BLOOD AM No comment enter ed. Ordering Provid er: KATHERINE FIGUEROA Report Released Date/Time: Oct 29, 2021 12:22 PM Reporting Lab: [facility] [address] Performing Lab: [facility] [address] WBC 7.40 4.0-11.0 RBC 5.17 4.6-6.2 HGB 17.6 13.5-17.9 HCT 52.7 41-54 MCV 101.9 H 80-100 MCH 34.0 H 27-33 MCHC 33.4 32.0-37.5 PLT 88 L 150-400 MPV 14.3 H 7.4-10.4 RDW 14.4 11.5-14.5 IPF 18.0 H 0-10 Advance Directives: All historical and current Section Date Range: From patient's date of to the date document was created. This section includes ALL of a patient's completed or amended [place] Advance and Rescinded Directives. The entries below indicate that a directive exists for the patient, but an actual copy is not included with this document. The data comes from all [place] facilities. Date Advance Directives Provider Source Mar 06, 2005 ADVANCE DIRECTIVE GANESH RODRIGUEZ [facility] Radiology Reports: +/- 30 days of the [...] the Encounter. The data comes from all [place] treatment facilities. Date/Time Radiology Report Provider Source Nov 30, 2021 07:05 AM CHEST 2 VIEWS PA AND LAT: MONET LUDWIG [facility] PAUL MICHELE [id number] -[birth year] M Exm Date: NOV 30, 2021@07:05 Req Phys: CHERRY MENDOZA Pat Loc: 3LSOB/ 2@08:05 Img Loc: MAIN X-RAY Service: zzcard sect (Case [id number] COMPLETE) CHEST 2 VIEWS PA AND LAT (R AD Detailed) CPT:71054 Reason for Study: s/p upgrade ICD adding an A l ead Clinical History: Post ICD or Pacemaker: Verify Lead Placement. [facility] IS NOT under investigation for COVID-19 or is COVID-19 negative s/p upgrade ICD adding an A lead Responsible pr ovider name and phone number to notify for critical findings if other than user placing the order and pager listed below: User placing orders pager: [phone] LAST CREATININE 1.4 H (11/29/21) Report Status: Verified Date Reported: NOV 30, 2021 Date Verified: NOV 30, 2021 Length Control Tester E-Sig:/ES/MONET LUDWIG MD, FACR, C CD Report: [...] 29, 2021 06:25 PM CHEST 1 VIEW: MAGDALENE DAVIDSON [facility] KNIEFELPAUL [id number] -[birth year] M Exm Date: NOV 29, 2021@18:25 Req Phys: CHERRY MENDOZA Pat Loc: [facility] [address] A[facility] (Req'g Loc) Img Loc: MAIN X-RAY Service: Unknown (Case [id number] COMPLETE) CHEST 1 VIEW (RAD Detailed) CPT:52124 Reason for Study: s/p upgrade ICD adding an A l ead Clinical History: Immediate Post-Op Pacemaker/ICD placement IS NOT under investigation for COVID-19 or is COVID-19 negative s/p upgrade his ICD to dual chamber (adding an A lead) Responsible provider name and phone number to n otify for critical findings if other than user placing the order a nd pager listed below: User placing orders pager: [phone] LAST CREATININE 1.4 H (11/29/21) Report Status: Verified Date Reported: NOV 29, 2021 Date Verified: NOV 29, 2021 Length Control Tester E-Sig:/ES/MAGDALENE DAVIDSON MD Report: DATE/TIME REGISTERED: 11/29/2021 [...] Primary Interpreting Staff: MAGDALENE DAVIDSON MD, RADIOLOGIST (Length Control Tester) /LUAN
--- OUTSIDE RECORDS SUMMARY | 2022-04-02 16:07 | XMS_ITS | Encounter Summary ---
:1945 Author Organization Department [facility] Address [address] [place] [id number] Care Team Providers Name Role Phone WILLA [...] MEDICARE MEDICARE PART Jun 25, PART B [id number] Saumya QUINONES PATIENT (WNR) (M) B 2011 78A 0 AVID MEDICARE MEDICARE PART Sep 25, PART A [id number] Saumya QUINONES PATIENT (WNR) (M) A 2009 78A 0 AVID MEDICARE MEDICARE PART Sep 25, PART A [id number] Saumya MICHELE (WNR) (M) A 2009 78A [phone] AVID MEDICARE MEDICARE PART Sep 25, PART B [id number] Saumya MIHCELE (WNR) (M) B 2009 [id number] [phone] AVID Selected Encounter This section includes the information on record at ID for the Encounter. Date/Time Encounter Type Encounter Reason Provider Source Description May 08, 2021 HC PRO PHONE TELEPHONE PRIMARY ICD-10-CM E11.9 JETT SAMS 02:00 PM CALL 11-20 MIN CARE Type 2 diabetes AN L mellitus without complications with Provider Comments: Type 2 diabetes mellitus ([facility] [id number]) IHE Encounter Template Text not used by [facility] Assessments - Encounter Diagnoses This section includes the primary and secondary diagnoses documented for the Encounter. Date/Time Primary/Secondary Diagnosis Name Provider Source Diagnosis May 08, 2021 PRIMARY Type 2 diabetes JETT SAMS [facility] 02:00 PM mellitus without AN L [facility] complications Plan of Treatment: Future Appointments (+ 6 months) and Future Tests (+/- 45 days) The Plan of Treatment section includes future care activities for the patient from all ID treatmentfacilities. This section includes future appointments and future orders which are active, pending orscheduled.Future Appointments This section includes appointments that were scheduled to occur 6 months from the date of the Encounter, up to a maximum of 20 appointments. The data comes from all ID treatment facilities. Appointment Date/Time Appointment Type Appointment Facili ty Name Jun 13, 2021 02:00 PM AMBULATORY - NONE [facility] Jun 18, 2021 12:45 PM AMBULATORY - NONE [facility] Jun 18, 2021 01:30 PM AMBULATORY - MEDICINE [facility] Jun 20, 2021 10:00 AM AMBULATORY - MEDICINE [facility] Jul 11, 2021 01:00 PM AMBULATORY - NONE [facility] Jul 26, 2021 09:00 AM AMBULATORY - MEDICINE [facility] Jul 26, 2021 10:30 AM AMBULATORY - NONE [facility] Aug 03, 2021 10:46 AM AMBULATORY - MEDICINE [facility] Aug 08, 2021 07:00 AM AMBULATORY - NONE [facility] Aug 10, 2021 10:30 AM AMBULATORY - NONE [facility] Sep 14, 2021 09:00 AM AMBULATORY - NONE [facility] Sep 21, 2021 09:45 AM AMBULATORY - MEDICINE [facility] Sep 21, 2021 10:00 AM AMBULATORY - MEDICINE [facility] Sep 21, 2021 10:30 AM AMBULATORY - MEDICINE [facility] Sep 21, 2021 11:00 AM AMBULATORY - MEDICINE [facility] Sep 21, 2021 11:30 AM AMBULATORY - MEDICINE [facility] Oct 12, 2021 09:30 AM AMBULATORY - NONE [facility] Nov 02, 2021 08:42 PM AMBULATORY - MEDICINE [facility] Nov 05, 2021 11:30 AM AMBULATORY - MEDICINE [facility] Social History: Smoking Status (Most current) [...] took place. Date/Time Current Smoking Status Comment [facility] Mar 20, 2021 11:21 AM VA-VAAES TOBACCO USE CURRENT NRT [facility] DECLINE Tobacco Use History This section includes a history of the smoking, or tobacco- related health factors, that were collected on or before the date of the Encounter. The data comes from the ID facility where the Encounter took place. 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 [facility] Nov 15, 2020 10:00 AM VA-TOBACCO USE MED NO [place] [facility] Nov 15, 2020 10:00 AM VA-TOBACCO USER EVERY DAY [facility] Jun 21, 2019 02:29 PM VA-TOBACCO USE 30 YEARS OR MORE [facility] Jun 21, 2019 02:29 PM VA-TOBACCO USE ADVICE [place] [facility] Jun 21, 2019 02:29 PM 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 Jun 21, 2015 08:15 AM CURRENT TOBACCO USER [facility] Mar 22, 2014 10:03 AM CURRENT TOBACCO USER [facility] Mar 25, 2013 11:01 AM CURRENT TOBACCO USER [facility] Feb 05, 2012 08:55 AM CURRENT TOBACCO USER [facility] January 01, 2011 09:26 AM CURRENT TOBACCO USER [facility] Mar 07, 2010 10:02 AM CURRENT TOBACCO USER [facility] Feb 21, 2009 08:17 AM CURRENT TOBACCO USER [facility] Nov 06, 2007 10:02 AM CURRENT TOBACCO USER [facility] January 02, 2007 10:33 AM CURRENT TOBACCO USER [facility] Advance Directives: All historical and [...] the Encounter. Date/Time Encounter Note(s) Provider Source May 08, 2021 02:16 PM LAUNDERER HAND NOTE: JAYY SAMS [facility] LOCAL TITLE: DIABETES LAUNDERER HAND NOTE STANDARD TITLE: LAUNDERER HAND NOTE DATE OF NOTE: MAY 08, 2021@14:16 ENTRY DATE: MAY 08, 2021@14:16:30 AUTHOR: JAYY SAMS EXP COSIGNER: URGENCY: STATUS: COMPLETED PAUL MICHELE is a 75 YO MALE followed by [facility] for medication management. SUBJECTIVE: [place] reports he is doing well. He denies havi ng any acute issues at this time. He states he is tolerating the higher dose of semaglutide so far. No Nausea/vomiting/diarrhea/con stipation. No changes in appetite. No weight loss so far. No hypoglycemia. ROS: (-) hypoglycemia symptoms (-) hyperglycemia symptoms SMBG Readings: Date AM Noon PM HS Notes 04/24 197 04/25 184 9/2 180 / 164 9/4 185 9/5 159 /6 185 05/01 175 05/02 188 05/03 177 05/04 165 05/05 188 05/06 198 05/07 200 05/08 167 MEDICATION RECONCILIATION: Active and Recently Outpatient Medicatio [...] TABLET BY FLORY TH EVERY ACTIVE DAY *continue* 6) FLUTICASONE 230/SALMET 21MCG 120D INHL INHALE 1 PUFF ACTIVE (S) BY INHALATION EVERY 12 HOURS RINSE MOUTH AFTER EACH USE; REPLACES SYMBICORT 7) FUROSEMIDE 40MG TAB TAKE ONE TABLET BY MOUTH EVERY ACTIVE DAY 8) GABAPENTIN 300MG CAP TAKE TWO CAPSULES BY FLORY TH THREE ACTIVE (S) TIMES A DAY FOR LEG PAIN 9) GLIPIZIDE 10MG TAB TAKE TWO TABLETS BY MOUTH TWICE A ACTIVE DAY TAKE 30 MINUTES BEFORE MEAL FOR DIABETES *confirms* 10) METFORMIN HCL 1000MG TAB TAKE ONE TABLET BY MOUTH TWO ACTIVE TIMES A DAY FOR DIABETES *confirms* 11) METOPROLOL SUCCINATE 100MG SA TAB TAKE ONE-H LONGTERM ACTIVE TABLET BY MOUTH EVERY DAY FOR [...] FOR DIABETES -MULTIPL E DOSES PER PEN *has taken 4 doses so far* 15) VITAMIN B COMPLEX CAP TAKE 1 CAPSULE BY MOUT H EVERY ACTIVE DAY FOR NUTRITION Active Non-VA Medications Status 1) Non-VA ASCORBIC ACID 500MG TAB 1000MG EVERY D AY ACTIVE 2) Non-VA MARINE LIPID (FISH OIL) CAP,ORAL MOUTH ACTIVE 3) Non-VA MULTIVITAMINS CAP/TAB MOUTH ACTIVE 4) Non-VA NON VA MED NOT LISTED MISCELLANEOUS CA TS CLAW ACTIVE MOUTH 19 Total Medications Adherence to medications: good per . Conf irms adherence to injection including changing site, allowing for pr oper absorption, ensuring dose changed based on fluid levels in pen OBJECTIVE: ALLERGIES/ADR: LISINOPRIL (Nov 09, 2007) Vitals: [...] 8.30 16.7 52.6 78 L 103.5 H No data available GLUCOSE 170 H (03/23/21) ASSESSMENT: #DM - Goal A1c <8% (FBG 80-160, PPG <210) per [facility]/DoD g uidelines. Last A1C above goal. SMBG remains elevated. Tolerating semaglut lashonda so far. Reasonable to continue titration. Reviewed injection and appea rs to be correct based on 's report. Encouraged to monitor sweets intake as AM elevations coincide with evening ice-cream. PLAN: - Continue Metformin 1000 mg 1 tablet twice yulia y - Continue Empagliflozin 25 mg 1 tablet daily - Continue Glipizide 10 mg 2 tablets twice daily - Increase Semaglutide 1.0 mg qweek *when supply of 0.5 mg ends* #Disease-Specific Med Rec: Completed today #Labs: A1C when semaglutide titration complete - Educated vet on indication/risks/benefits of n ew/changed medication. - Education provided on therapeutic nonpharmacol ogic management to achieve goals. - Vet advised of recent labs. - verbalized underst anding to all plans discussed today. Questions were answered to vet's satisfaction. Time spent: 19 minutes RTC: 06/13@14:00 /billy/ JAYY SAMS Pharmacist Signed: 05/08/2021 18:40
--- OUTSIDE RECORDS SUMMARY | 2022-04-02 16:08 | XMS_ITS | Encounter Summary ---
:1945 Author Organization [facility] Address [address] [place], [place] [id number] Care Team Providers Name Role Phone WILLA [...] MEDICARE MEDICARE PART Jun 25, PART B [id number] Saumya QUINONES PATIENT (WNR) (M) B 2011 78A 0 AVID MEDICARE MEDICARE PART Sep 25, PART A [id number] Saumya QUINONES PATIENT (WNR) (M) A 2009 78A 0 AVID MEDICARE MEDICARE PART Sep 25, PART A [id number] Saumya MICHELE (WNR) (M) A 2009 78A [id number] AVID MEDICARE MEDICARE PART Sep 25, PART B [id number] Saumya MICHELE ATTHOMAS (WNR) (M) B 2009 78A [phone] AVID Selected Encounter This section includes the information on record at [place] for the Encounter. Date/Time Encounter Type Encounter Description Reason Provider Source Nov 30, 2021 01:41 Outpatient Encounter CLINICAL PHARMACY PM IHE Encounter Template Text not used by [place] Plan of Treatment: Future Appointments (+ 6 months) and Future Tests (+/- 45 days) The Plan of Treatment section includes future care activities for the patient [facility] This section includes future appointments and future orders which are active, pending orscheduled.Future Appointments This section includes appointments that were scheduled to occur 6 months from the date of the Encounter, up to a maximum of 20 appointments. The data comes from all [facility]. Appointment Date/Time Appointment Type Appointment Facili ty Name Dec 21, 2021 09:30 AM AMBULATORY - NONE [facility] January 07, 2022 01:30 PM AMBULATORY - MEDICINE [facility] Feb 05, 2022 07:00 AM AMBULATORY - NONE [facility] Feb 07, 2022 09:30 AM AMBULATORY - NONE [facility] Feb 13, 2022 10:00 AM AMBULATORY [facility] Mar 21, 2022 09:30 AM AMBULATORY [facility] Active, Pending, and Scheduled Orders This section includes a listing of several types of active, pending, and scheduled orders, including clinic medications orders, diagnostic test orders, procedure orders and consult orders; where the start date of the order is 45 days before the date of the Encounter or 45 days after the date of the Encounter. The data comes from all [facility]. Test Date/Time Test Type Test Details Facility Name Nov 29, 2021 06:30 AM Laboratory - Blood Bank TYPE & SCREEN - LA B [facility] Order BLOOD SP Dec 15, 2021 12:00 AM Laboratory - Chemistry BASIC METABOLIC MIN [facility] Order PANEL+MG PLASMA SP Lab Results: +/- 30 days of the encounter This section includes the Chemistry and Hematology Lab Results on record with [place] for the patient. Radiology Reports and Pathology Reports are provided separately, in subsequent sections.Lab Results This section contains the Chemistry/Hematology Results that were resulted 30 days before or 30 daysafter the date of the Encounter. Date/Time Source Result Type Result - Unit Interpretation Reference Range Comment Nov 30, 2021 11:26 [facility] FINGERSTICK GLUCOSE Speci men Type: BLOOD AM Comment: [place] Nurse Notified Ordering Provid er: TEAM,CARDS TWO Report Released Date/Time: Nov 30, 2021 11:46 AM Reporting Lab: [facility] [address] [facility] [address] Performing Lab: [facility] I PHIL [facility] [address] FINGERSTICK GLUCOSE 284 mg/dL H 70-100 Nov 30, 2021 09:47 AM [facility] ALBUMIN Specim en Type: PLASMA No comment enter ed. Ordering Provid er: ELIUD DINERO Report Released Date/Time: Nov 29, 2021 07:53 PM Reporting Lab: [facility] [address] [facility] [address] Performing Lab: [facility] [address] [facility] [address] ALBUMIN 3.4 g/dL L 3.5-5.2 Nov 30, 2021 09:47 [facility] BASIC METABOLIC Specimen Type: PLASMA AM PANEL+MG No comment enter ed. Ordering Provid er: ANGIE MALHOTRA Report Released Date/Time: Nov 29, 2021 08:12 PM Reporting Lab: [facility] [address] [facility] [address] Performing Lab: [facility] [address] [facility] [address] CREATININE 1.2 mg/dL 0.7-1.2 UREA NITROGEN 18 mg/dL 8-26 GLUCOSE 342 mg/dL H 74-100 SODIUM 141 mmol/L 136-145 POTASSIUM 4.3 mmol/L 3.5-5.1 CHLORIDE 108 mmol/L H 98-107 CO2 26 mmol/L 22-29 CALCIUM 8.6 mg/dL 8.4-10.2 MAGNESIUM 1.5 mg/dL L 1.6-2.6 ANION GAP 7 mmol/L 5-15 CREAT EGFR(CKD-EPI) 63 >60 Nov 30, 2021 09:46 AM [facility] CBC Specim en Type: BLOOD No comment enter ed. Ordering Provid er: ANGIE MALHOTRA Report Released Date/Time: Nov 29, 2021 08:12 PM Reporting Lab: [facility] [address] [facility] [address] Performing Lab: [facility] [address] [facility] [address] WBC 10.61 10*3/uL 4.0-11.0 RBC 4.33 10*6/uL L 4.6-6.2 HGB 14.6 g/dL 13.5-17.9 HCT 45.2 41-54 MCV 104.4 fL H 80-100 MCH 33.7 pg H 27-33 MCHC 32.3 g/dL 32.0-37.5 PLT 71 10*3/uL L 150-400 MPV 13.9 fL H 7.4-10.4 RDW 14.7 H 11.5-14.5 IPF 17.8 H 0-10 Nov 30, 2021 06:09 [facility] FINGERSTICK GLUCOSE Speci men Type: BLOOD AM Comment: [place] Nurse Notified Ordering Provid er: IRENE BURNS TWO Report Released Date/Time: Nov 30, 2021 06:32 AM Reporting Lab: [facility] [address] [facility] [address] Performing Lab: [facility] [address] [facility] [address] FINGERSTICK GLUCOSE 165 mg/dL H 70-100 Nov 29, 2021 07:35 [facility] FINGERSTICK GLUCOSE Speci men Type: BLOOD PM Comment: [place] Nurse Notified Ordering Provid er: IRENE BURNS TWO Report Released Date/Time: Nov 29, 2021 07:48 PM Reporting Lab: [facility] [address] [facility] [address] Performing Lab: [facility] [address] [facility] [address] FINGERSTICK GLUCOSE 160 mg/dL H 70-100 Nov 29, 2021 06:52 [facility] FINGERSTICK GLUCOSE Speci men Type: BLOOD PM Comment: [place] Nurse Notified Ordering Provid er: SAKSHI CROUCH Report Released Date/Time: Nov 29, 2021 07:04 PM Reporting Lab: [facility] [address] [facility] [address] Performing Lab: [facility] [address] [facility] [address] FINGERSTICK GLUCOSE 161 mg/dL H 70-100 Nov 29, 2021 04:18 [facility] FINGERSTICK GLUCOSE Speci men Type: BLOOD PM No comment enter ed. Ordering Provid er: IRENE BURNS TWO Report Released Date/Time: Nov 29, 2021 08:08 PM Reporting Lab: [facility] [address] [facility] [address] Performing Lab: [facility] [address] [facility] [address] FINGERSTICK GLUCOSE 179 mg/dL H 70-100 Nov 29, 2021 03:26 [facility] POC ABG/ELECTROLYTES Spec imen Type: ARTERIAL BLOOD PM Comment: Sample Type = ARTERIAL Ordering Provid er: IRENE BURNS TWO Report Released Date/Time: Nov 29, 2021 07:53 PM Reporting Lab: [facility] [address] Performing Lab: [facility] [address] POC PH 7.321 L 7.35-7.45 POC PCO2 [...] mg/dL L 4.50-5.30 Nov 29, 2021 03:24 [facility] FINGERSTICK GLUCOSE Speci men Type: BLOOD PM Comment: Save R esult Ordering Provid er: TEAM,CARDS TWO Report Released Date/Time: Nov 29, 2021 08:08 PM Reporting Lab: [facility] [address] Performing Lab: [facility] [address] FINGERSTICK GLUCOSE 188 mg/dL H 70-100 Nov 29, 2021 02:06 [facility] POC ABG/ELECTROLYTES Spec imen Type: ARTERIAL BLOOD PM Comment: Sample Type = ARTERIAL Ordering Provid er: TEAM,CARDS TWO Report Released Date/Time: Nov 29, 2021 07:53 PM Reporting Lab: [facility] [address] Performing Lab: [facility] [address] POC PH 7.313 L 7.35-7.45 POC PCO2 [...] mg/dL L 4.50-5.30 Nov 29, 2021 02:04 [facility] FINGERSTICK GLUCOSE Speci men Type: BLOOD PM Comment: Save R esult Ordering Provid er: IRENE BURNS Report Released Date/Time: Nov 29, 2021 08:08 PM Reporting Lab: [facility] [address] [facility] [address] Performing Lab: [facility] [address] [facility] [address] FINGERSTICK GLUCOSE 236 mg/dL H 70-100 Nov 29, 2021 01:52 PM [facility] POC ACT Specim en Type: BLOOD No comment enter ed. Ordering Provid er: IRENE BURNS Report Released Date/Time: Dec 03, 2021 01:31 PM Reporting Lab: [facility] [address] [facility] [address] Performing Lab: [facility] [address] [facility] [address] POC ACT 135 s 84-139 Nov 29, 2021 01:16 PM [facility] POC ACT Specim en Type: BLOOD No comment enter ed. Ordering Provid er: IRENE BURNS Report Released Date/Time: Dec 03, 2021 01:30 PM Reporting Lab: [facility] [address] [facility] [address] Performing Lab: [facility] [address] [facility] [address] POC ACT 355 s 84-139 Nov 29, 2021 12:49 PM [facility] POC ACT Specim en Type: BLOOD No comment enter ed. Ordering Provid er: IRENE BURNS Report Released Date/Time: Dec 03, 2021 01:30 PM Reporting Lab: [facility] [address] [facility] [address] Performing Lab: [facility] [address] [facility] [address] POC ACT 367 s 84-139 Nov 29, 2021 12:48 [facility] POC ABG/ELECTROLYTES Spec imen Type: ARTERIAL BLOOD PM Comment: Sample Type = ARTERIAL Ordering Provid er: IRENE BURNS Report Released Date/Time: Nov 29, 2021 07:53 PM Reporting Lab: [facility] [address] [facility] [address] Performing Lab: [facility] [address] [facility] [address] POC PH 7.289 L 7.35-7.45 POC PCO2 [...] 4.7 mg/dL 4.50-5.30 Nov 29, 2021 12:45 [facility] FINGERSTICK GLUCOSE Speci men Type: BLOOD PM Comment: [place] Ordering Provid er: IRENE BURNS TWO Report Released Date/Time: Nov 29, 2021 08:08 PM Reporting Lab: [facility] [address] [facility] [address] Performing [facility] [address] FINGERSTICK GLUCOSE 186 mg/dL H 70-100 Nov 29, 2021 12:26 PM [facility] POC ACT Specim en Type: BLOOD No comment enter ed. Ordering Provid er: IRENE BURNS TWO Report Released Date/Time: Dec 03, 2021 01:30 PM Reporting Lab: [facility] [address] [facility] [address] Performing Lab: [facility] [address] [facility] [address] POC ACT 367 s 84-139 Nov 29, 2021 11:58 AM [facility] POC ACT Specim en Type: BLOOD No comment enter ed. Ordering Provid er: IRENE BURNS TWO Report Released Date/Time: Dec 03, 2021 01:30 PM Reporting Lab: [facility] [address] [facility] [address] Performing Lab: [facility] [address] [facility] [address] POC ACT 338 s 84-139 Nov 29, 2021 11:53 [facility] FINGERSTICK GLUCOSE Speci men Type: BLOOD AM Comment: Save R esult Ordering Provid er: IRENE BURNS TWO Report Released Date/Time: Nov 29, 2021 08:08 PM Reporting Lab: [facility] [address] [facility] [address] Performing Lab: [facility] [address] FINGERSTICK GLUCOSE 225 mg/dL H 70-100 Nov 29, 2021 11:30 AM [facility] POC ACT Specim en Type: BLOOD No comment enter ed. Ordering Provid er: GRANTCARDS TWO Report Released Date/Time: Dec 03, 2021 01:30 PM Reporting Lab: [facility] [address] Performing Lab: [facility] [address] POC ACT 355 s 84-139 Nov 29, 2021 11:26 [facility] POC ABG/ELECTROLYTES Spec imen Type: ARTERIAL BLOOD AM Comment: Sample Type = ARTERIAL Ordering Provid er: IRENE BURNS TWO Report Released Date/Time: Nov 29, 2021 07:53 PM Reporting Lab: [facility] [address] Performing Lab: [facility] [address] POC PH 7.317 L 7.35-7.45 POC PCO2 [...] 4.8 mg/dL 4.50-5.30 Nov 29, 2021 11:06 [facility] FINGERSTICK GLUCOSE Speci men Type: BLOOD AM No comment enter ed. Ordering Provid er: IRENE BURNS TWO Report Released Date/Time: Nov 29, 2021 08:08 PM Reporting Lab: [facility] [address] Performing Lab: [facility] [address] FINGERSTICK GLUCOSE 221 mg/dL H 70-100 Nov 29, 2021 11:02 AM [facility] POC ACT Specim en Type: BLOOD No comment enter ed. Ordering Provid er: IRENE BURNS Report Released Date/Time: Dec 03, 2021 01:30 PM Reporting Lab: [facility] [address] [facility] [address] Performing Lab: [facility] [address] [facility] [address] POC ACT 294 s 84-139 Nov 29, 2021 10:26 AM [facility] POC ACT Specim en Type: BLOOD No comment enter ed. Ordering Provid er: IRENE BURNS Report Released Date/Time: Dec 03, 2021 01:30 PM Reporting Lab: [facility] [address] [facility] [address] Performing Lab: [facility] [address] [facility] [address] POC ACT 329 s 84-139 Nov 29, 2021 10:06 AM [facility] POC ACT Specim en Type: BLOOD No comment enter ed. Ordering Provid er: IRENE BURNS Report Released Date/Time: Dec 03, 2021 01:30 PM Reporting Lab: [facility] [address] [facility] [address] Performing Lab: [facility] [address] [facility] [address] POC ACT 312 s 84-139 Nov 29, 2021 09:58 [facility] POC ABG/ELECTROLYTES Spec imen Type: ARTERIAL BLOOD AM Comment: Sample Type = ARTERIAL Ordering Provid er: IRENE BURNS Report Released Date/Time: Nov 29, 2021 07:53 PM Reporting Lab: [facility] [address] [facility] [address] Performing Lab: [facility] [address] [facility] [address] POC PH 7.334 L 7.35-7.45 POC PCO2 [...] 4.9 mg/dL 4.50-5.30 Nov 29, 2021 09:56 [facility] FINGERSTICK GLUCOSE Speci men Type: BLOOD AM No comment enter ed. Ordering Provid er: IRENE BURNS TWO Report Released Date/Time: Nov 29, 2021 08:08 PM Reporting Lab: [facility] [address] [facility] [address] Performing Lab: [facility] [address] [facility] [address] FINGERSTICK GLUCOSE 194 mg/dL H 70-100 Nov 29, 2021 09:45 AM [facility] POC ACT Specim en Type: BLOOD No comment enter ed. Ordering Provid er: IRENE BURNS TWO Report Released Date/Time: Dec 03, 2021 01:30 PM Reporting Lab: [facility] [address] [facility] [address] Performing Lab: [facility] [address] [facility] [address] POC ACT 269 s 84-139 Nov 29, 2021 08:59 AM [facility] POC ACT Specim en Type: BLOOD No comment enter ed. Ordering Provid er: IRENE BURNS TWO Report Released Date/Time: Dec 03, 2021 01:30 PM Reporting Lab: [facility] [address] [facility] [address] Performing Lab: [facility] [address] [facility] [address] POC ACT 135 s 84-139 Nov 29, 2021 [facility] COVID-19 AND FLU/RSV Specime n Type: NASOPHARYNGEAL 07:05 AM DIAG PANEL(CEPHEID) Comment: Ce pheid GeneXpert (618) Ordering Provid er: KATHERINE FIGUEROA Report Released Date/Time: Oct 29, 2021 12:22 PM Reporting Lab: [facility] [address] [facility] [address] Performing Lab: [facility] [address] [facility] [address] COVID-19 (CEPHEID) Not Detected Not Dete cted INFLUENZA A (PCR) Not Detected Not Detec susanne INFLUENZA B (PCR) Not Detected Not Detec susanne RSV (PCR) Not Detected Not Detected Nov 29, 2021 [facility] BASIC METABOLIC Specimen Typ e: PLASMA 06:38 AM PANEL+MG No comment enter ed. Ordering Provid er: KATHERINE FIGUEROA Report Released Date/Time: Oct 29, 2021 12:22 PM Reporting Lab: [facility] [address] Performing Lab: [facility] [address] CREATININE 1.4 mg/dL H 0.7-1.2 UREA NITROGEN 23 mg/dL 8-26 GLUCOSE 201 mg/dL H 74-100 SODIUM 143 mmol/L 136-145 POTASSIUM 4.3 mmol/L 3.5-5.1 CHLORIDE 108 mmol/L H 98-107 CO2 28 mmol/L 22-29 CALCIUM 9.9 mg/dL 8.4-10.2 MAGNESIUM 1.9 mg/dL 1.6-2.6 ANION GAP 7 mmol/L 5-15 CREAT EGFR(CKD-EPI) 53 L >60 Nov 29, 2021 06:38 [facility] CBC Specimen Type: BLOOD AM No comment enter ed. Ordering Provid er: KATHERINE FIGUEROA Report Released Date/Time: Oct 29, 2021 12:22 PM Reporting Lab: [facility] [address] Performing Lab: [facility] [address] WBC 7.40 10*3/uL 4.0-11.0 RBC 5.17 10*6/uL 4.6-6.2 HGB 17.6 g/dL 13.5-17.9 HCT 52.7 41-54 MCV 101.9 fL H 80-100 MCH 34.0 pg H 27-33 MCHC 33.4 g/dL 32.0-37.5 PLT 88 10*3/uL L 150-400 MPV 14.3 fL H 7.4-10.4 RDW 14.4 11.5-14.5 IPF 18.0 H 0-10 Nov 29, 2021 [facility] PROTHROMBIN Specimen Typ e: PLASMA 06:38 AM TIME/INR No comment enter ed. Ordering Provid er: KATHERINE FIGUEROA Report Released Date/Time: Oct 29, 2021 12:22 PM Reporting Lab: [facility] [address] Performing Lab: [facility] [address] [facility] [address] .INR 1.1 0.8-1.1 .PT 13.1 s H 9.4-12.5 Nov 29, 2021 [facility] ACT PART Specimen Typ e: PLASMA 06:38 AM THROMBO TIME No comment enter ed. Ordering Provid er: KATHERINE FIGUEROA Report Released Date/Time: Oct 29, 2021 12:22 PM Reporting Lab: [facility] [address] [facility] [address] Performing Lab: [facility] [address] [facility] [address] APTT 33.3 s 25.1-36.5 Vital Signs: All taken on the encounter date This section contains inpatient and outpatient Vital Signs collected on the date of the Encounter. Date/Time Temperature Pulse Blood Respiratory SP02 Pain Height Weight Axel dy Source Pressure Rate Mass Index Nov 30, 100 104/72 18 /min 92 % [place] 2021 10:19 /min mm[Hg] [facility] Nov 30, 99.0 F 92 102/69 18 /min 90 % 0 [place] 2021 07:53 /min mm[Hg] [facility] Nov 30, 88 98/65 16 /min 88 % [place] 2021 03:56 /min mm[Hg] [facility] Social History: Smoking Status (Most current) and Tobacco Use (All prior to encounter date) This section includes the most current, and the historical, smoking and tobacco-related health factors from the [place] facility where the Encounter took place.Current Smoking Status This section includes the most current smoking, or tobacco-related health factor, from the [place] facility where the Encounter took place. Date/Time Current Smoking Status Comment [facility] ACCEPT Tobacco Use History This section includes a history of the smoking, or tobacco- related health factors, that were collected on or before the date of the Encounter. The data comes from the [place] facility where the Encounter took place. Date/Time Smoking Status/Tobacco Use Comment Nicola matta Mar 20, 2021 11:21 AM [facility] TOBACCO USE CURRENT NRT [facility] DECLINE Nov 15, 2020 10:00 AM [facility]-TOBACCO DOESNT USE WI 30 MIN [facility] WAKEUP Nov 15, 2020 10:00 AM VA-TOBACCO USE 30 YEARS OR MORE [facility] Nov 15, 2020 10:00 AM VA-TOBACCO USE ADVICE [place] [facility] Nov 15, 2020 10:00 AM VA-TOBACCO USE BASKET SORTER NO [facility] Nov 15, 2020 10:00 AM VA-TOBACCO USE MED NO [place] [facility] Nov 15, 2020 10:00 AM VA-TOBACCO USER EVERY DAY [facility] Jun 21, 2019 02:29 PM VA-TOBACCO USE 30 YEARS OR MORE [facility] Jun 21, 2019 02:29 PM VA-TOBACCO USE ADVICE [place] [facility] Jun 21, 2019 02:29 PM VA-TOBACCO USE BASKET SORTER NO [facility] Jun 21, 2019 02:29 PM VA-TOBACCO USE MED NO [place] [facility] Jun 21, 2019 02:29 PM VA-TOBACCO USE [place] 30 MIN OF WAKEUP [facility] Jun 21, 2019 02:29 PM VA-TOBACCO USER EVERY DAY [facility] Jun 09, 2018 03:48 PM VA-TOBACCO USE 30 YEARS OR MORE [facility] Jun 09, 2018 03:48 PM VA-TOBACCO USE ADVICE [place] [facility] Jun 09, 2018 03:48 PM VA-TOBACCO USE BASKET SORTER NO [facility] Jun 09, 2018 03:48 PM VA-TOBACCO USE MED NO [place] [facility] Jun 09, 2018 03:48 PM VA-TOBACCO USE [place] 30 MIN OF WAKEUP [facility] Jun 09, 2018 03:48 PM VA-TOBACCO USER EVERY DAY [facility] Jun 20, 2017 07:53 AM CURRENT TOBACCO USER [facility] Jun 19, 2016 08:41 AM [facility] Jun 21, 2015 08:15 AM [facility] Mar 22, 2014 10:03 AM CURRENT TOBACCO USER [facility] Mar 25, 2013 11:01 AM [facility] Feb 05, 2012 08:55 AM CUR[facility] January 01, 2011 09:26 AM CURRENT [facility]BAC[facility]ER [facility] Mar 07, 2010 10:02 AM CURRENT [facility]AC[facility] Feb 21, 2009 08:17 AM CUR[facility]AC[facility] Nov 06, 2007 10:02 AM CURRENT TOBACCO USER [facility] January 02, 2007 10:33 AM CURRENT TOBACCO USER [facility] Advance Directives: All historical and current Section Date Range: From patient's date of to the date document was created. This section includes ALL of a patient's completed or amended [place] Advance and Rescinded Directives. The entries below indicate that a directive exists for the patient, but an actual copy is not included with this document. The data comes from all [place] facilities. Date Advance Directives Provider Source Mar 06, 2005 ADVANCE DIRECTIVE [facility] Radiology Reports: +/- 30 days of the [...] the Encounter. The data comes from all [place] treatment facilities. Date/Time Radiology Report Provider Source Nov 30, 2021 07:05 AM CHEST 2 VIEWS PA AND LAT: [facility] PAUL MICHELE [id number] -[birth year] 9 M Exm Date: NOV 30, 2021@07:05 Req Phys: CHERRY MENDOZA Loc: 3LSOB/ 2@08:05 Img Loc: MAIN X-RAY Service: zzcard sect (Case [id number] COMPLETE) CHEST 2 VIEWS PA AND LAT (R AD Detailed) CPT:38230 Reason for Study: s/p upgrade ICD adding an A l ead Clinical History: Post ICD or Pacemaker: Verify Lead Placement. 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 E-Sig:/ES/MONET LUDWIG MD, FACR, C CD Report: [...] 06:25 PM CHEST 1 VIEW: MAGDALENE DAVIDSON [facility] MICHELE [id number] -[phone] M Exm Date: NOV 29, 2021@18:25 Req Phys: CHERRY MENDOZA Pat Loc: [facility] [address] [facility] (Req'g Loc) Img Loc: MAIN X-RAY Service: Unknown (Case [id number] COMPLETE) CHEST 1 VIEW (RAD Detailed) CPT:49555 Reason for Study: s/p upgrade ICD adding [...] pager listed below: User placing orders pager: [phone] LAST CREATININE 1.4 H (11/29/21) Report Status: Verified Date Reported: NOV 29, 2021 Date Verified: NOV 29, 2021 Motorboat Mechanic Helper E-Sig:/ES/MAGDALENE DAVIDSON MD Report: DATE/TIME REGISTERED: 11/29/2021 [...] Primary Interpreting Staff: MAGDALENE DAVIDSON MD, RADIOLOGIST (Motorboat Mechanic Helper) /LUAN Encounter Notes: All associated encounter notes This section contains the clinical notes associated to the Encounter. Date/Time Encounter Note(s) Provider Source Nov 30, 2021 01:41 PM EDUCATION NOTE: [facility] SON[facility] LOCAL TITLE: EDUCATION MEDICATION INSTRUCTION C STANDARD TITLE: EDUCATION NOTE DATE OF NOTE: NOV 30, 2021@13:41 ENTRY DATE: NOV 30, 2021@13:42:08 AUTHOR: COBY SONI EXP COSIGNER: URGENCY: STATUS: COMPLETED MEDICATION EDUCATION PARTICIPANTS: Patient TEACHING STRATEGY: Verbal READINESS TO LEARN: No barriers identified LEARNING NEEDS/OBJECTIVES Participant(s) indicates readiness to learn and has been instructed on indications, side effects, and directions for u se. Medication reconciliation has been completed. Participant(s) provided an updated list medicat ions. Education included discussion of the following: New medication(s): cephalexin spironolactone PATIENT/FAMILY RESPONSE (OUTCOME): Verbalizes critical information about the topic FOLLOW-UP RECOMMENDED: None needed Active Outpatient Medications (including Supplie s): Outpatient Medications Status 1) ACCU-CHEK GUIDE (GLUCOSE) TEST STRIP USE 1 ST RIP ACTIVE TOPICALLY EVERY DAY TO CHECK BLOOD SUGAR--USE WITHIN 3 MINUTES [...] BY ACTIVE MOUTH AT BEDTIME FOR CHOLESTEROL 5) CEPHALEXIN 500MG CAP TAKE ONE CAPSULE BY MOUT H TWICE ACTIVE A DAY FOR 3 DAYS - AFTER CIED PROCEDURE - 6) EMPAGLIFLOZIN 25MG TAB TAKE ONE TABLET BY FLORY TH EVERY ACTIVE DAY 7) FUROSEMIDE 40MG TAB TAKE ONE TABLET BY MOUTH EVERY ACTIVE DAY 8) GABAPENTIN 300MG CAP TAKE TWO CAPSULES BY FLORY TH THREE ACTIVE TIMES A DAY FOR LEG PAIN 9) GLIPIZIDE 10MG TAB TAKE TWO TABLETS BY MOUTH TWICE A ACTIVE DAY TAKE 30 MINUTES BEFORE MEAL FOR DIABETES 10) METFORMIN HCL 1000MG TAB TAKE ONE TABLET BY MOUTH TWO ACTIVE TIMES A DAY FOR DIABETES 11) METOPROLOL SUCCINATE 200MG SA TAB TAKE ONE-H [facility] ACTIVE TABLET BY MOUTH EVERY DAY FOR HEART 12) OLODATEROL/TIOTROP 2.5MCG/ACTUAT 60D INH INH COLE 2 ACTIVE PUFFS BY INHALATION EVERY DAY TO PREVENT TROUBL E BREATHING 13) SACUBITRIL 24MG/VALSARTAN 26MG TAB TAKE 1 TA BLET BY ACTIVE MOUTH TWICE A DAY FOR HEART FAILURE 14) SEMAGLUTIDE 1MG/0.75ML INJ PEN 3ML INJECT 1M G UNDER ACTIVE THE SKIN EVERY WEEK FOR DIABETES -REFRIGERATE -MULTIPLE DOSES PER PEN 15) SPIRONOLACTONE 25MG TAB TAKE ONE-HALF TABLET BY MOUTH ACTIVE EVERY DAY 16) VITAMIN B COMPLEX CAP TAKE 1 CAPSULE BY MOUT H EVERY ACTIVE DAY FOR NUTRITION Non-VA Medications Status 1) Non-VA ASCORBIC ACID 500MG TAB 1000MG EVERY D AY ACTIVE 2) Non-VA MARINE LIPID (FISH OIL) CAP,ORAL MOUTH ACTIVE 3) Non-VA MULTIVITAMINS CAP/TAB MOUTH ACTIVE 4) Non-VA NON VA MED NOT LISTED MISCELLANEOUS CA TS CLAW ACTIVE MOUTH 20 Total Medications /es/ COBY SONI RP [facility] OUTPATIENT PHARMACIST Signed: 11/30/2021 13:43
--- OUTSIDE RECORDS SUMMARY | 2022-04-02 16:08 | XMS_ITS | Encounter Summary ---
:1945 Author Organization [facility] Address [address] [place] [address] Care Team Providers Name Role Phone SAKSHI [...] MEDICARE MEDICARE PART Jun 25, PART B [id number] Saumya QUINONES PATIENT (WNR) (M) B 2011 78A 0 AVID MEDICARE MEDICARE PART Sep 25, PART A [id number] Saumya QUINONES PATIENT (WNR) (M) A 2009 78A 0 AVID MEDICARE MEDICARE PART Sep 25, PART A [id number] Saumya MICHELE ATIENT (WNR) (M) A 2009 78A [phone] AVID MEDICARE MEDICARE PART Sep 25, PART B [id number] Saumya MICHELE ATIENT (WNR) (M) B 2009 78A [phone] AVID Selected Encounter This section includes the information on record at [facility] for the Encounter. Date/Time Encounter Type Encounter Reason Provider Source Description Nov 29, 2021 01:26 Outpatient ADMIN PAT ACTIVTIES SYSTEM,C IS-ARK PM Encounter (MASNONCT) IHE Encounter Template Text not used by [facility] Plan of Treatment: Future Appointments (+ 6 months) and Future Tests (+/- 45 days) The Plan of Treatment section includes future care activities for the [facility] This section includes future appointments and future orders which are active, pending orscheduled.Future Appointments This section includes appointments that were scheduled to occur 6 months from the date of the Encounter, up to a maximum of 20 appointments. The data comes from all [facility]. Appointment Date/Time Appointment Type Appointment Facili ty Name Dec 21, 2021 09:30 AM AMBULATORY - NONE [facility] January 07, 2022 01:30 PM AMBULATORY - MEDICINE [facility] Feb 05, 2022 07:00 AM AMBULATORY [facility] Feb 07, 2022 09:30 AM AMBULATORY - NONE [facility] Feb 13, 2022 10:00 AM AMBULATORY [facility] Mar 21, 2022 09:30 AM AMBULATORY [facility] Active, Pending, and Scheduled Orders This [...] Bank TYPE & SCREEN - LA B [facility] Order BLOOD SP Dec 15, 2021 12:00 AM Laboratory - Chemistry BASIC METABOLIC [facility] Order PANEL+MG PLASMA SP Lab Results: +/- [...] Reference Range Comment Nov 30, 2021 11:26 [facility] FINGERSTICK GLUCOSE Speci men Type: BLOOD AM Comment: [place] Nurse Notified Ordering Provid er: TEAM,CARDS TWO Report Released Date/Time: Nov 30, 2021 11:46 AM Reporting Lab: [facility] ONE [facility] [place] [address] [facility] [address] Performing Lab: [facility] [address] [address] FINGERSTICK GLUCOSE 284 mg/dL H 70-100 Nov 30, 2021 09:47 AM [facility] ALBUMIN Specim en Type: PLASMA No comment enter ed. Ordering Provid er: ELIUD DINERO Report Released Date/Time: Nov 29, 2021 07:53 PM Reporting Lab: [facility] [address] [facility] [address] Performing Lab: [facility] [address] [facility] [address] ALBUMIN 3.4 g/dL L 3.5-5.2 Nov 30, 2021 09:47 [facility] BASIC METABOLIC Specimen Type: PLASMA AM PANEL+MG No comment enter ed. Ordering Provid er: ANGIE MALHOTRA Report Released Date/Time: Nov 29, 2021 08:12 PM Reporting Lab: [facility] [address] [facility] [address] Performing Lab: [facility] [address] CREATININE 1.2 mg/dL 0.7-1.2 UREA NITROGEN 18 mg/dL 8-26 GLUCOSE 342 mg/dL H 74-100 SODIUM 141 mmol/L 136-145 POTASSIUM 4.3 mmol/L 3.5-5.1 CHLORIDE 108 mmol/L H 98-107 CO2 26 mmol/L 22-29 CALCIUM 8.6 mg/dL 8.4-10.2 MAGNESIUM 1.5 mg/dL L 1.6-2.6 ANION GAP 7 mmol/L 5-15 CREAT EGFR(CKD-EPI) 63 >60 Nov 30, 2021 09:46 AM [facility] CBC Specim en Type: BLOOD No comment enter ed. Ordering Provid er: ANGIE MALHOTRA Report Released Date/Time: Nov 29, 2021 08:12 PM Reporting Lab: [facility] [address] [facility] [address] Performing Lab: [facility] [address] [facility] [address] WBC 10.61 10*3/uL 4.0-11.0 RBC 4.33 10*6/uL L 4.6-6.2 HGB 14.6 g/dL 13.5-17.9 HCT 45.2 41-54 MCV 104.4 fL H 80-100 MCH 33.7 pg H 27-33 MCHC 32.3 g/dL 32.0-37.5 PLT 71 10*3/uL L 150-400 MPV 13.9 fL H 7.4-10.4 RDW 14.7 H 11.5-14.5 IPF 17.8 H 0-10 Nov 30, 2021 06:09 [facility] FINGERSTICK GLUCOSE Speci men Type: BLOOD AM Comment: [place] Nurse Notified Ordering Provid er: TEAM,CARDS TWO Report Released Date/Time: Nov 30, 2021 06:32 AM Reporting Lab: [facility] [address] [facility] [address] Performing Lab: [facility] [address] [facility] [address] FINGERSTICK GLUCOSE 165 mg/dL H 70-100 Nov 29, 2021 07:35 [facility] FINGERSTICK GLUCOSE Speci men Type: BLOOD PM Comment: [place] Nurse Notified Ordering Provid er: GRANTCARDS TWO Report Released Date/Time: Nov 29, 2021 07:48 PM Reporting Lab: [facility] [address] [facility] [address] Performing Lab: [facility] [address] [facility] [address] FINGERSTICK GLUCOSE 160 mg/dL H 70-100 Nov 29, 2021 06:52 [facility] FINGERSTICK GLUCOSE Speci men Type: BLOOD PM Comment: [place] Nurse Notified Ordering Provid er: SAKSHI CROUCH Report Released Date/Time: Nov 29, 2021 07:04 PM Reporting Lab: [facility] [address] [facility] [address] Performing Lab: [facility] [address] [facility] [address] FINGERSTICK GLUCOSE 161 mg/dL H 70-100 Nov 29, 2021 04:18 [facility] FINGERSTICK GLUCOSE Speci men Type: BLOOD PM No comment enter ed. Ordering Provid er: GRANTCARDS TWO Report Released Date/Time: Nov 29, 2021 08:08 PM Reporting Lab: [facility] [address] [facility] [address] Performing Lab: [facility] [address] [facility] [address] FINGERSTICK GLUCOSE 179 mg/dL H 70-100 Nov 29, 2021 03:26 [facility] POC ABG/ELECTROLYTES Spec imen Type: ARTERIAL BLOOD PM Comment: Sample Type = ARTERIAL Ordering Provid er: TEAMCARDS TWO Report Released Date/Time: Nov 29, 2021 07:53 PM Reporting Lab: [facility] [address] Performing Lab: [facility] [address] POC PH 7.321 L 7.35-7.45 POC PCO2 [...] mg/dL L 4.50-5.30 Nov 29, 2021 03:24 [facility] FINGERSTICK GLUCOSE Speci men Type: BLOOD PM Comment: Save R esult Ordering Provid er: IRENE BURNS Report Released Date/Time: Nov 29, 2021 08:08 PM Reporting Lab: [facility] [address] Performing Lab: [facility] [address] FINGERSTICK GLUCOSE 188 mg/dL H 70-100 Nov 29, 2021 02:06 [facility] POC ABG/ELECTROLYTES Spec imen Type: ARTERIAL BLOOD PM Comment: Sample Type = ARTERIAL Ordering Provid er: IRENE BURNS Report Released Date/Time: Nov 29, 2021 07:53 PM Reporting Lab: [facility] [address] Performing Lab: [facility] [address] POC PH 7.313 L 7.35-7.45 POC PCO2 [...] mg/dL L 4.50-5.30 Nov 29, 2021 02:04 [facility] FINGERSTICK GLUCOSE Speci men Type: BLOOD PM Comment: Save R esult Ordering Provid er: IRENE BURNS Report Released Date/Time: Nov 29, 2021 08:08 PM Reporting Lab: [facility] [address] [facility] [address] Performing Lab: [facility] [address] [facility] [address] FINGERSTICK GLUCOSE 236 mg/dL H 70-100 Nov 29, 2021 01:52 PM [facility] POC ACT Specim en Type: BLOOD No comment enter ed. Ordering Provid er: IRENE BURNS Report Released Date/Time: Dec 03, 2021 01:31 PM Reporting Lab: [facility] [address] [facility] [address] Performing Lab: [facility] [address] [facility] [address] POC ACT 135 s 84-139 Nov 29, 2021 01:16 PM [facility] POC ACT Specim en Type: BLOOD No comment enter ed. Ordering Provid er: IRENE BURNS Report Released Date/Time: Dec 03, 2021 01:30 PM Reporting Lab: [facility] [address] [facility] [address] Performing Lab: [facility] [address] [facility] [address] POC ACT 355 s 84-139 Nov 29, 2021 12:49 PM [facility] POC ACT Specim en Type: BLOOD No comment enter ed. Ordering Provid er: IRENE BURNS Report Released Date/Time: Dec 03, 2021 01:30 PM Reporting Lab: [facility] [address] [facility] [address] Performing Lab: [facility] [address] [facility] [address] POC ACT 367 s 84-139 Nov 29, 2021 12:48 [facility] POC ABG/ELECTROLYTES Spec imen Type: ARTERIAL BLOOD PM Comment: Sample Type = ARTERIAL Ordering Provid er: IRENE BURNS Report Released Date/Time: Nov 29, 2021 07:53 PM Reporting Lab: [facility] [address] [facility] [address] Performing Lab: [facility] [address] [facility] [address] POC PH 7.289 L 7.35-7.45 POC PCO2 [...] 4.7 mg/dL 4.50-5.30 Nov 29, 2021 12:45 [facility] FINGERSTICK GLUCOSE Speci men Type: BLOOD PM Comment: [place] Ordering Provid er: IRENE BURNS TWO Report Released Date/Time: Nov 29, 2021 08:08 PM [facility] [address] [facility] [address] FINGERSTICK GLUCOSE 186 mg/dL H 70-100 Nov 29, 2021 12:26 PM [facility] POC ACT Specim en Type: BLOOD No comment enter ed. Ordering Provid er: IRENE BURNS Report Released Date/Time: Dec 03, 2021 01:30 PM Reporting Lab: [facility] [address] Performing Lab: [facility] [address] POC ACT 367 s 84-139 Nov 29, 2021 11:58 AM [facility] POC ACT Specim en Type: BLOOD No comment enter ed. Ordering Provid er: IRENE BURNS Report Released Date/Time: Dec 03, 2021 01:30 PM Reporting Lab: [facility] [address] Performing Lab: [facility] [address] POC ACT 338 s 84-139 Nov 29, 2021 11:53 [facility] FINGERSTICK GLUCOSE Speci men Type: BLOOD AM Comment: Save R esult Ordering Provid er: IRENE BURNS TWO Report Released Date/Time: Nov 29, 2021 08:08 PM Reporting Lab: [facility] [address] Performing Lab: [facility] [address] FINGERSTICK GLUCOSE 225 mg/dL H 70-100 Nov 29, 2021 11:30 AM [facility] POC ACT Specim en Type: BLOOD No comment enter ed. Ordering Provid er: IRENE BURNS TWO Report Released Date/Time: Dec 03, 2021 01:30 PM Reporting Lab: [facility] [address] Performing Lab: [facility] [address] POC ACT 355 s 84-139 Nov 29, 2021 11:26 [facility] POC ABG/ELECTROLYTES Spec imen Type: ARTERIAL BLOOD AM Comment: Sample Type = ARTERIAL Ordering Provid er: IRENE BURNS TWO Report Released Date/Time: Nov 29, 2021 07:53 PM Reporting Lab: [facility] [address] Performing Lab: [facility] [address] POC PH 7.317 L 7.35-7.45 POC PCO2 [...] 4.8 mg/dL 4.50-5.30 Nov 29, 2021 11:06 [facility] FINGERSTICK GLUCOSE Speci men Type: BLOOD AM No comment enter ed. Ordering Provid er: IRENE BURNS TWO Report Released Date/Time: Nov 29, 2021 08:08 PM Reporting Lab: [facility] [address] Performing Lab: [facility] [place] [address] FINGERSTICK GLUCOSE 221 mg/dL H 70-100 Nov 29, 2021 11:02 AM [facility] POC ACT Specim en Type: BLOOD No comment enter ed. Ordering Provid er: IRENE BURNS Report Released Date/Time: Dec 03, 2021 01:30 PM Reporting Lab: [facility] [address] [facility] [address] Performing Lab: [facility] [address] [facility] [address] POC ACT 294 s 84-139 Nov 29, 2021 10:26 AM [facility] POC ACT Specim en Type: BLOOD No comment enter ed. Ordering Provid er: IRENE BURNS Report Released Date/Time: Dec 03, 2021 01:30 PM Reporting Lab: [facility] [address] [facility] [address] Performing Lab: [facility] [address] [facility] [address] POC ACT 329 s 84-139 Nov 29, 2021 10:06 AM [facility] POC ACT Specim en Type: BLOOD No comment enter ed. Ordering Provid er: IRENE BURNS Report Released Date/Time: Dec 03, 2021 01:30 PM Reporting Lab: [facility] [address] [facility] [address] Performing Lab: [facility] [address] [facility] [address] POC ACT 312 s 84-139 Nov 29, 2021 09:58 [facility] POC ABG/ELECTROLYTES Spec imen Type: ARTERIAL BLOOD AM Comment: Sample Type = ARTERIAL Ordering Provid er: IRENE BURNS Report Released Date/Time: Nov 29, 2021 07:53 PM Reporting Lab: [facility] [address] [facility] [address] Performing Lab: [facility] [address] [facility] [address] POC PH 7.334 L 7.35-7.45 POC PCO2 [...] 4.9 mg/dL 4.50-5.30 Nov 29, 2021 09:56 [facility] FINGERSTICK GLUCOSE Speci men Type: BLOOD AM No comment enter ed. Ordering Provid er: IRENE BURNS Report Released Date/Time: Nov 29, 2021 08:08 PM Reporting Lab: [facility] [address] [facility] [address] Performing Lab: [facility] [address] FINGERSTICK GLUCOSE 194 mg/dL H 70-100 Nov 29, 2021 09:45 AM [facility] POC ACT Specim en Type: BLOOD No comment enter ed. Ordering Provid er: IRENE BURNS Report Released Date/Time: Dec 03, 2021 01:30 PM Reporting [facility] [address] [facility] Lab[facility] [address] POC ACT 269 s 84-139 Nov 29, 2021 08:59 AM [facility] POC ACT Specim en Type: BLOOD No comment enter ed. Ordering Provid er: IRENE BURNS Report Released Date/Time: Dec 03, 2021 01:30 PM Reporting Lab: [facility] [address] [address] [address] Performing Lab: [facility] [address] POC ACT 135 s 84-139 Nov 29, 2021 [facility] COVID-19 AND FLU/RSV Specime n Type: NASOPHARYNGEAL 07:05 AM DIAG PANEL(CEPHEID) Comment: Ce pheid GeneXpert (618) Ordering Provid er: KATHERINE FIGUEROA Report Released Date/Time: Oct 29, 2021 12:22 PM Reporting Lab: [facility] [address] [address] [address] [facility] Lab[facility] [address] COVID-19 (CEPHEID) Not Detected Not Dete cted INFLUENZA A (PCR) Not Detected Not Detec susanne INFLUENZA B (PCR) Not Detected Not Detec suasnne RSV (PCR) Not Detected Not Detected Nov 29, 2021 [facility] BASIC METABOLIC Specimen Typ e: PLASMA 06:38 AM PANEL+MG No comment enter ed. Ordering Provid er: KATHERINE FIGUEROA Report Released Date/Time: Oct 29, 2021 12:22 PM Reporting Lab: [facility] [address] Performing Lab: [facility] [address] CREATININE 1.4 mg/dL H 0.7-1.2 UREA NITROGEN 23 mg/dL 8-26 GLUCOSE 201 mg/dL H 74-100 SODIUM 143 mmol/L 136-145 POTASSIUM 4.3 mmol/L 3.5-5.1 CHLORIDE 108 mmol/L H 98-107 CO2 28 mmol/L 22-29 CALCIUM 9.9 mg/dL 8.4-10.2 MAGNESIUM 1.9 mg/dL 1.6-2.6 ANION GAP 7 mmol/L 5-15 CREAT EGFR(CKD-EPI) 53 L >60 Nov 29, 2021 06:38 [facility] CBC Specimen Type: BLOOD AM No comment enter ed. Ordering Provid er: KATHERINE FIGUEROA Report Released Date/Time: Oct 29, 2021 12:22 PM Reporting Lab: [facility] [address] Performing Lab: [facility] [address] WBC 7.40 10*3/uL 4.0-11.0 RBC 5.17 10*6/uL 4.6-6.2 HGB 17.6 g/dL 13.5-17.9 HCT 52.7 41-54 MCV 101.9 fL H 80-100 MCH 34.0 pg H 27-33 MCHC 33.4 g/dL 32.0-37.5 PLT 88 10*3/uL L 150-400 MPV 14.3 fL H 7.4-10.4 RDW 14.4 11.5-14.5 IPF 18.0 H 0-10 Nov 29, 2021 [facility] PROTHROMBIN Specimen Typ e: PLASMA 06:38 AM TIME/INR No comment enter ed. Ordering Provid er: KATHERINE FIGUEROA Report Released Date/Time: Oct 29, 2021 12:22 PM Reporting Lab: [facility] [address] [facility] [address] Performing Lab: [facility] [address] [facility] [address] .INR 1.1 0.8-1.1 .PT 13.1 s H 9.4-12.5 Nov 29, 2021 [facility] ACT PART Specimen Typ e: PLASMA 06:38 AM THROMBO TIME No comment enter ed. Ordering Provid er: KATHERINE FIGUEROA Report Released Date/Time: Oct 29, 2021 12:22 PM Reporting Lab: [facility] [address] [facility] [address] Performing Lab: [facility] [address] [facility] [address] APTT 33.3 s 25.1-36.5 Vital Signs: All taken on the encounter date This section contains inpatient and outpatient Vital Signs collected on the date of the Encounter. Date/Time Temperature Pulse Blood Respiratory SP02 Pain Height Weight Axel dy Source Pressure Rate Mass Index Nov 29.3 F 96 99/66 18 /min 90 % 0 [place] 2021 11:07 /min mm[Hg] [facility] Nov 29 96 % [place] 2021 08:40 /min [facility] Nov 29, 232 lb 30 [place] 2021 08:38 [facility] Nov 29 112/73 97 % [place] 2021 08:35 /min mm[Hg] [facility] Nov 29, 113/69 90 % [place] 2021 08:15 /min mm[Hg] [facility] Social History: Smoking Status (Most current) [...] Comment Facility Nov 29, 2021 08:36 PM [facility] TOBACCO USE CURRENT NRT [facility] ACCEPT Tobacco Use History This section includes a history of the smoking, or tobacco- related health factors, that were collected on or before the date of the Encounter. The data comes from the [facility] facility where the Encounter took place. 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 [facility] Nov 15, 2020 10:00 AM VA-TOBACCO USE MED NO [place] [facility] Nov 15, 2020 10:00 AM VA-TOBACCO USER EVERY DAY [facility] Jun 21, 2019 02:29 PM VA-TOBACCO USE 30 YEARS OR MORE [facility] Jun 21, 2019 02:29 PM VA-TOBACCO USE ADVICE [place] [facility] Jun 21, 2019 02:29 PM 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 [facility] Jun 21, 2019 02:29 PM VA-TOBACCO USE MED NO [place] [facility] Jun 21, 2019 02:29 PM VA-TOBACCO USE WI 30 MIN OF WAKEUP [facility] Jun 21, 2019 02:29 PM VA-TOBACCO USER EVERY DAY [facility] Jun 09, 2018 03:48 PM VA-TOBACCO USE 30 YEARS OR MORE [facility] Jun 09, 2018 03:48 PM VA-TOBACCO USE ADVICE [place] [facility] Jun 09, 2018 03:48 PM 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 [facility] Jun 09, 2018 03:48 PM VA-TOBACCO USE MED NO [place] [facility] Jun 09, 2018 03:48 PM VA-TOBACCO USE WI 30 MIN OF WAKEUP [facility] Jun 09, 2018 03:48 PM VA-TOBACCO USER EVERY DAY [facility] Jun 20, 2017 07:53 AM CURRENT [facility]BACCO [facility]ER [facility] Jun 19, 2016 08:41 AM CURRENT TOBACCO USER [facility] Jun 21, 2015 08:15 AM CURRENT TOBACCO USER [facility] Mar 22, 2014 10:03 AM CURRENT TOBACCO USER [facility] Mar 25, 2013 11:01 AM CURRENT TOBACCO USER [facility] Feb 05, 2012 08:55 AM CURRENT TOBACCO USER [facility] January 01, 2011 09:26 AM CURRENT TOBACCO USER [facility] Mar 07, 2010 10:02 AM CURRENT TOBACCO USER [facility] Feb 21, 2009 08:17 AM CURRENT TOBACCO USER [facility] Nov 06, 2007 10:02 AM CURRENT TOBACCO USER [facility] January 02, 2007 10:33 AM [...] GANESH RODRIGUEZ [facility] Radiology Reports: +/- 30 days of the [...] the Encounter. The data comes from all [facility] treatment facilities. Date/Time Radiology Report Provider Source Nov 30, 2021 07:05 AM CHEST 2 VIEWS PA AND LAT: MONET LUDWIG [facility] PAUL MICHELE [id number] -[birth year] 9 M Exm Date: NOV 30, 2021@07:05 Req Phys: CHERRY MENDOZA Loc: 3LSOB/ 2@08:05 Img Loc: MAIN X-RAY Service: zzcard sect (Case [id number] COMPLETE) CHEST 2 VIEWS PA AND LAT (R AD Detailed) CPT:07430 Reason for Study: s/p upgrade ICD adding an A l ead Clinical History: Post ICD or Pacemaker: Verify Lead Placement. [facility] IS NOT under investigation for COVID-19 or is COVID-19 negative s/p upgrade ICD adding an A lead Responsible pr ovider name and phone number to notify for critical findings if other than user placing the order and pager listed below: User placing orders pager: [phone] LAST CREATININE 1.4 H (11/29/21) Report Status: Verified Date Reported: NOV 30, 2021 Date Verified: NOV 30, 2021 Telephone Services Sales Representative E-Sig:/[email or web address]/MONET LUDWIG MD, FACR, C CD Report: EXAMINATION: [...] 06:25 PM CHEST 1 VIEW: MAGDALENE DAVIDSON [facility] [place] [id number] -[birth year] 9 M Exm Date: NOV 29, 2021@18:25 Req Phys: CHERRY MENDOZA Pat Loc: [facility] [address] [facility] (Req'g Loc) Img Loc: MAIN X-RAY Service: Unknown (Case [id number] COMPLETE) CHEST 1 VIEW (RAD Detailed) CPT:79693 Reason for Study: s/p upgrade ICD adding an A l ead Clinical History: Immediate Post-Op Pacemaker/ICD placement [facility] IS NOT under investigation for COVID-19 or is COVID-19 negative s/p upgrade his ICD to dual chamber (adding an A lead) Responsible provider name and phone number to n otify for critical findings if other than user placing the order a nd pager listed below: User placing orders pager: [phone] LAST CREATININE 1.4 H (11/29/21) Report Status: Verified Date Reported: NOV 29, 2021 Date Verified: NOV 29, 2021 Telephone Services Sales Representative E-Sig:/HOLLIE/MAGDALENE DAVIDSON MD Report: DATE/TIME REGISTERED: 11/29/2021 6:25 [...] Primary Interpreting Staff: MAGDALENE DAVIDSON MD, RADIOLOGIST (Telephone Services Sales Representative) /LUAN Encounter Notes: All associated encounter notes This section contains the clinical notes associated to the Encounter. Date/Time Encounter Note(s) Provider Source Nov 29, 2021 01:26 PM CRITICAL CARE UNIT NOTE: FLORENCIO RIOS [facility] LOCAL TITLE: [facility] PACU FLOWSHEET STANDARD TITLE: CRITICAL CARE UNIT NOTE DATE OF NOTE: NOV 29, 2021@13:26 ENTRY DATE: NOV 29, 2021@19:50:27 AUTHOR: FLORENCIO RIOS EXP COSIGNER: URGENCY: STATUS: COMPLETED This is a place pyle only. Please see VISTA Im aging to view document. /es/ FLORENCIO SYSTEM ICU DOCUMENT IMPORT Signed: 11/29/2021 19:50
--- OUTSIDE RECORDS SUMMARY | 2022-04-02 16:08 | XMS_ITS | Encounter Summary ---
:1945 Author Organization Department [facility] Address [address] [place], [place] [address] Care Team Providers Name Role Phone CROUCH [...] MEDICARE MEDICARE PART Jun 25, PART B [id number] Saumya QUINONES PATIENT (WNR) (M) B 2011 78A 0 AVID MEDICARE MEDICARE PART Sep 25, PART A [id number] Saumya QUINONES PATIENT (WNR) (M) A 2009 78A 0 AVID MEDICARE MEDICARE PART Sep 25, PART A [id number] Saumya MICHELE (WNR) (M) A 2009 78A [id number] AVID MEDICARE MEDICARE PART Sep 25, PART B [id number] Saumya MICHELE (WNR) (M) B 2009 78A [id number] AVID Selected Encounter This section includes the information on record at [place] for the Encounter. Date/Time Encounter Type Encounter Reason Provider Source Description Nov 02, 2021 REM INTERROG CIED DEVICES ICD-10-CM Z95.810 SOSA GUAMAN 08:42 PM EVL PM/IDS Presence of I L automatic (implantable) cardiac defibrillator with Provider Comments: Presence of automatic (implantable) cardiac defibrillator IHE Encounter Template Text not used by [place] Assessments - Encounter Diagnoses This section includes the primary and secondary diagnoses documented for the Encounter. Date/Time Primary/Secondary Diagnosis Name Provider Source Diagnosis Nov 26, 2021 PRIMARY Presence of GARETH GUZMÁN 05:00 PM automatic M [facility] (implantable) cardiac defibrillator Plan of Treatment: Future Appointments (+ 6 months) and Future Tests (+/- 45 days) The Plan of Treatment section includes future care activities for the patient from all [place] [facility]. This section includes future appointments and future orders which are active, pending orscheduled.Future Appointments This section includes appointments that were scheduled to occur 6 months from the date of the Encounter, up to a maximum of 20 appointments. The data comes from all [facility]. Appointment Date/Time Appointment Type Appointment Facili ty Name Nov 05, 2021 11:30 AM AMBULATORY - MEDICINE [facility] Nov 09, 2021 09:30 AM AMBULATORY - NONE [facility] Nov 19, 2021 12:45 PM AMBULATORY - MEDICINE [facility] Nov 21, 2021 10:00 AM AMBULATORY - SURGERY [facility] Nov 29, 2021 06:30 AM AMBULATORY - NONE [facility] Nov 29, 2021 07:30 AM AMBULATORY - MEDICINE [facility] Nov 29, 2021 08:00 AM AMBULATORY - MEDICINE [facility] Dec 21, 2021 09:30 AM AMBULATORY - NONE [facility] January 07, 2022 01:30 PM AMBULATORY - MEDICINE [facility] Feb 05, 2022 07:00 AM AMBULATORY - NONE [facility] Feb 07, 2022 09:30 AM AMBULATORY - NONE [facility] Feb 13, 2022 10:00 AM AMBULATORY - NONE [facility] Mar 21, 2022 09:30 AM AMBULATORY - NONE [facility] Active, Pending, and Scheduled Orders This section includes a listing of several types of active, pending, and scheduled orders, including clinic medications orders, diagnostic test orders, procedure orders and consult orders; where the start date of the order is 45 days before the date of the Encounter or 45 days after the date of the Encounter. The data comes from all [place] treatment [facility]. Test Date/Time Test Type Test Details Facility Name Sep 25, 2021 03:21 PM Pharmacy - Clinic [facility] Infusion Order Nov 29, 2021 06:30 AM Laboratory - Blood Bank TYPE & SCREEN - LA B [facility] Order BLOOD SP Dec 15, 2021 12:00 AM Laboratory - Chemistry [facility]IC [facility]ABOL[facility] PANEL+MG PLASMA SP Lab Results: +/- [...] Reference Range Comment Nov 30, 2021 11:26 [facility] FINGERSTICK GLUCOSE Speci men Type: BLOOD AM Comment: Abram rock Nurse Notified Ordering Provid er: IRENE BURNS Report Released Date/Time: Nov 30, 2021 11:46 AM Reporting Lab[facility] [address] Performing Lab: [facility] [address] FINGERSTICK GLUCOSE 284 mg/dL H 70-100 Nov 30, 2021 09:47 AM [facility] ALBUMIN Specim en Type: PLASMA No comment enter ed. Ordering Provid er: ELIUD DINERO Report Released Date/Time: Nov 29, 2021 07:53 PM Reporting Lab: [facility] [address] Performing Lab: [facility] [address] ALBUMIN 3.4 g/dL L 3.5-5.2 Nov 30, 2021 09:47 [facility] BASIC METABOLIC Specimen Type: PLASMA AM PANEL+MG No comment enter ed. Ordering Provid er: ANGIE MALHOTRA Report Released Date/Time: Nov 29, 2021 08:12 PM Reporting Lab: [facility] [address] [facility] [address] Performing Lab: [facility] [address] CREATININE 1.2 mg/dL 0.7-1.2 UREA NITROGEN 18 mg/dL 8-26 GLUCOSE 342 mg/dL H 74-100 SODIUM 141 mmol/L 136-145 POTASSIUM 4.3 mmol/L 3.5-5.1 CHLORIDE 108 mmol/L H 98-107 CO2 26 mmol/L 22-29 CALCIUM 8.6 mg/dL 8.4-10.2 MAGNESIUM 1.5 mg/dL L 1.6-2.6 ANION GAP 7 mmol/L 5-15 CREAT EGFR(CKD-EPI) 63 >60 Nov 30, 2021 09:46 AM [facility] CBC Specim en Type: BLOOD No comment enter ed. Ordering Provid er: ANGIE MALHOTRA Report Released Date/Time: Nov 29, 2021 08:12 PM Reporting Lab: [facility] [address] [facility] [address] Performing Lab: [facility] [address] [facility] [address] WBC 10.61 10*3/uL 4.0-11.0 RBC 4.33 10*6/uL L 4.6-6.2 HGB 14.6 g/dL 13.5-17.9 HCT 45.2 41-54 MCV 104.4 fL H 80-100 MCH 33.7 pg H 27-33 MCHC 32.3 g/dL 32.0-37.5 PLT 71 10*3/uL L 150-400 MPV 13.9 fL H 7.4-10.4 RDW 14.7 H 11.5-14.5 IPF 17.8 H 0-10 Nov 30, 2021 06:09 [facility] FINGERSTICK GLUCOSE Speci men Type: BLOOD AM Comment: Abram Welch Notified Ordering Provid er: TEAM,IRENE TWO Report Released Date/Time: Nov 30, 2021 06:32 AM Reporting Lab: [facility] [address] [facility] [address] Performing Lab: [facility] [address] [facility] [address] FINGERSTICK GLUCOSE 165 mg/dL H 70-100 Nov 29, 2021 07:35 [facility] FINGERSTICK GLUCOSE Speci men Type: BLOOD PM Comment: Abram rock Nurse Notified Ordering Provid er: TEAM,CARDS TWO Report Released Date/Time: Nov 29, 2021 07:48 PM Reporting Lab: [facility] [address] [facility] [address] Performing Lab: [facility] [address] FINGERSTICK GLUCOSE 160 mg/dL H 70-100 Nov 29, 2021 06:52 [facility] FINGERSTICK GLUCOSE Speci men Type: BLOOD PM Comment: Abram rock Nurse Notified Ordering Provid er: SAKSHI CROUCH Report Released Date/Time: Nov 29, 2021 07:04 PM Reporting Lab: [facility] [address] [facility] [address] Performing Lab: [facility] [address] [facility] [address] FINGERSTICK GLUCOSE 161 mg/dL H 70-100 Nov 29, 2021 04:18 [facility] FINGERSTICK GLUCOSE Speci men Type: BLOOD PM No comment enter ed. Ordering Provid er: TEAMCARDS TWO Report Released Date/Time: Nov 29, 2021 08:08 PM Reporting Lab: [facility] [address] Performing Lab: [facility] [address] FINGERSTICK GLUCOSE 179 mg/dL H 70-100 Nov 29, 2021 03:26 [facility] POC ABG/ELECTROLYTES Spec imen Type: ARTERIAL BLOOD PM Comment: Sample Type = ARTERIAL Ordering Provid er: GRANT,CARDS TWO Report Released Date/Time: Nov 29, 2021 07:53 PM Reporting Lab: [facility] [address] Performing Lab: [facility] [address] POC PH 7.321 L 7.35-7.45 POC PCO2 [...] mg/dL L 4.50-5.30 Nov 29, 2021 03:24 [facility] FINGERSTICK GLUCOSE Speci men Type: BLOOD PM Comment: Abram rock Ordering Provid er: GRANTCARDS TWO Report Released Date/Time: Nov 29, 2021 08:08 PM Reporting Lab: [facility] [address] Performing Lab: [facility] [address] FINGERSTICK GLUCOSE 188 mg/dL H 70-100 Nov 29, 2021 02:06 [facility] POC ABG/ELECTROLYTES Spec imen Type: ARTERIAL BLOOD PM Comment: Sample Type = ARTERIAL Ordering Provid er: IRENE BURNS TWO Report Released Date/Time: Nov 29, 2021 07:53 PM Reporting Lab: [facility] [address] [facility] [address] Performing Lab: [facility] [address] POC PH 7.313 L 7.35-7.45 POC PCO2 [...] mg/dL L 4.50-5.30 Nov 29, 2021 02:04 [facility] FINGERSTICK GLUCOSE Speci men Type: BLOOD PM Comment: Save R esult Ordering Provid er: IRENE BURNS TWO Report Released Date/Time: Nov 29, 2021 08:08 PM Reporting Lab: [facility] [address] [facility] [address] Performing Lab: [facility] [address] FINGERSTICK GLUCOSE 236 mg/dL H 70-100 Nov 29, 2021 01:52 PM [facility] POC ACT Specim en Type: BLOOD No comment enter ed. Ordering Provid er: IRENE UBRNS TWO Report Released Date/Time: Dec 03, 2021 01:31 PM Reporting Lab: [facility] [address] [facility] [address] Performing Lab: [facility] [address] [facility] [address] POC ACT 135 s 84-139 Nov 29, 2021 01:16 PM [facility] POC ACT Specim en Type: BLOOD No comment enter ed. Ordering Provid er: TEAM,CARDS TWO Report Released Date/Time: Dec 03, 2021 01:30 PM Reporting Lab: [facility] [address] [facility] [address] Performing Lab: [facility] [address] [facility] [address] POC ACT 355 s 84-139 Nov 29, 2021 12:49 PM [facility] POC ACT Specim en Type: BLOOD No comment enter ed. Ordering Provid er: IRENE BURNS TWO Report Released Date/Time: Dec 03, 2021 01:30 PM Reporting Lab: [facility] [address] Performing Lab: [facility] [address] POC ACT 367 s 84-139 Nov 29, 2021 12:48 [facility] POC ABG/ELECTROLYTES Spec imen Type: ARTERIAL BLOOD PM Comment: Sample Type = ARTERIAL Ordering Provid er: IRENE BURNS TWO Report Released Date/Time: Nov 29, 2021 07:53 PM Reporting Lab: [facility] [address] Performing Lab: [facility] [address] POC PH 7.289 L 7.35-7.45 POC PCO2 [...] 4.7 mg/dL 4.50-5.30 Nov 29, 2021 12:45 [facility] FINGERSTICK GLUCOSE Speci men Type: BLOOD PM Comment: Save R esult Ordering Provid er: IRENE BURNS TWO Report Released Date/Time: Nov 29, 2021 08:08 PM Reporting Lab: [facility] [address] Performing Lab: [facility] [address] FINGERSTICK GLUCOSE 186 mg/dL H 70-100 Nov 29, 2021 12:26 PM [facility] POC ACT Specim en Type: BLOOD No comment enter ed. Ordering Provid er: IRENE BURNS Report Released Date/Time: Dec 03, 2021 01:30 PM Reporting Lab: [facility] [address] [facility] [address] Performing Lab: [facility] [address] [facility] [address] POC ACT 367 s 84-139 Nov 29, 2021 11:58 AM [facility] POC ACT Specim en Type: BLOOD No comment enter ed. Ordering Provid er: IRENE BURNS Report Released Date/Time: Dec 03, 2021 01:30 PM Reporting Lab: [facility] [address] [facility] [address] Performing Lab: [facility] [address] [facility] [address] POC ACT 338 s 84-139 Nov 29, 2021 11:53 [facility] FINGERSTICK GLUCOSE Speci men Type: BLOOD AM Comment: Save R esult Ordering Provid er: IRENE BURNS Report Released Date/Time: Nov 29, 2021 08:08 PM Reporting Lab: [facility] [address] [facility] [address] Performing Lab: [facility] [address] [facility] [address] FINGERSTICK GLUCOSE 225 mg/dL H 70-100 Nov 29, 2021 11:30 AM [facility] POC ACT Specim en Type: BLOOD No comment enter ed. Ordering Provid er: IRENE BURNS Report Released Date/Time: Dec 03, 2021 01:30 PM Reporting Lab: [facility] [address] [facility] [address] Performing Lab: [facility] [address] [facility] [address] POC ACT 355 s 84-139 Nov 29, 2021 11:26 [facility] POC ABG/ELECTROLYTES Spec imen Type: ARTERIAL BLOOD AM Comment: Sample Type = ARTERIAL Ordering Provid er: IRENE BURNS Report Released Date/Time: Nov 29, 2021 07:53 PM Reporting Lab: [facility] [address] [facility] [address] Performing Lab: [facility] [address] [facility] [address] POC PH 7.317 L 7.35-7.45 POC PCO2 [...] 4.8 mg/dL 4.50-5.30 Nov 29, 2021 11:06 [facility] FINGERSTICK GLUCOSE Speci men Type: BLOOD AM No comment enter ed. Ordering Provid er: IRENE BURNS Report Released Date/Time: Nov 29, 2021 08:08 PM Reporting Lab: [facility] [address] [facility] [address] Performing Lab: [facility] [address] [facility] [address] FINGERSTICK GLUCOSE 221 mg/dL H 70-100 Nov 29, 2021 11:02 AM [facility] POC ACT Specim en Type: BLOOD No comment enter ed. Ordering Provid er: IRENE BURNS TWO Report Released Date/Time: Dec 03, 2021 01:30 PM Reporting Lab: [facility] [address] [facility] [address] Performing Lab: [facility] [address] [facility] [address] POC ACT 294 s 84-139 Nov 29, 2021 10:26 AM [facility] POC ACT Specim en Type: BLOOD No comment enter ed. Ordering Provid er: IRENE BURNS TWO Report Released Date/Time: Dec 03, 2021 01:30 PM Reporting Lab: [facility] [address] [facility] [address] Performing Lab: [facility] [address] [facility] [address] POC ACT 329 s 84-139 Nov 29, 2021 10:06 AM [facility] POC ACT Specim en Type: BLOOD No comment enter ed. Ordering Provid er: IRENE BURNS TWO Report Released Date/Time: Dec 03, 2021 01:30 PM Reporting Lab: [facility] [address] [facility] [address] Performing Lab: [facility] [address] [facility] [address] POC ACT 312 s 84-139 Nov 29, 2021 09:58 [facility] POC ABG/ELECTROLYTES Spec imen Type: ARTERIAL BLOOD AM Comment: Sample Type = ARTERIAL Ordering Provid er: IRENE BURNS TWO Report Released Date/Time: Nov 29, 2021 07:53 PM Reporting Lab: [facility] [address] [facility] [address] Performing Lab: [facility] [address] [facility] [address] POC PH 7.334 L 7.35-7.45 POC PCO2 [...] 4.9 mg/dL 4.50-5.30 Nov 29, 2021 09:56 [facility] FINGERSTICK GLUCOSE Speci men Type: BLOOD AM No comment enter ed. Ordering Provid er: IRENE BURNS TWO Report Released Date/Time: Nov 29, 2021 08:08 PM Reporting Lab: [facility] [address] [facility] [address] Performing Lab: [facility] [address] [facility] [address] FINGERSTICK GLUCOSE 194 mg/dL H 70-100 Nov 29, 2021 09:45 AM [facility] POC ACT Specim en Type: BLOOD No comment enter ed. Ordering Provid er: IRENE BURNS TWO Report Released Date/Time: Dec 03, 2021 01:30 PM Reporting Lab: [facility] [address] [facility] [address] Performing Lab: [facility] [address] [facility] [address] POC ACT 269 s 84-139 Nov 29, 2021 08:59 AM [facility] POC ACT Specim en Type: BLOOD No comment enter ed. Ordering Provid er: IRENE BURNS TWO Report Released Date/Time: Dec 03, 2021 01:30 PM Reporting Lab: [facility] [address] [facility] [address] Performing Lab: [facility] [address] [facility] [address] POC ACT 135 s 84-139 Nov 29, 2021 [facility] COVID-19 AND FLU/RSV Specime n Type: NASOPHARYNGEAL 07:05 AM DIAG PANEL(CEPHEID) Comment: Ce pheid GeneXpert (618) Ordering Provid er: KATHERINE FIGUEROA Report Released Date/Time: Oct 29, 2021 12:22 PM Reporting Lab: [facility] [address] Performing Lab: [facility] [address] COVID-19 (CEPHEID) Not Detected Not Dete cted INFLUENZA A (PCR) Not Detected Not Detec susanne INFLUENZA B (PCR) Not Detected Not Detec susanne RSV (PCR) Not Detected Not Detected Nov 29, 2021 [facility] BASIC METABOLIC Specimen Typ e: PLASMA 06:38 AM PANEL+MG No comment enter ed. Ordering Provid er: KATHERINE FIGUEROA Report Released Date/Time: Oct 29, 2021 12:22 PM Reporting Lab: [facility] [address] [facility] [address] Performing Lab: [facility] [address] CREATININE 1.4 mg/dL H 0.7-1.2 UREA NITROGEN 23 mg/dL 8-26 GLUCOSE 201 mg/dL H 74-100 SODIUM 143 mmol/L 136-145 POTASSIUM 4.3 mmol/L 3.5-5.1 CHLORIDE 108 mmol/L H 98-107 CO2 28 mmol/L 22-29 CALCIUM 9.9 mg/dL 8.4-10.2 MAGNESIUM 1.9 mg/dL 1.6-2.6 ANION GAP 7 mmol/L 5-15 CREAT EGFR(CKD-EPI) 53 L >60 Nov 29, 2021 06:38 [facility] CBC Specimen Type: BLOOD AM No comment enter ed. Ordering Provid er: KATHERINE FIGUEROA Report Released Date/Time: Oct 29, 2021 12:22 PM Reporting Lab: [facility] [address] [facility] [address] Performing Lab: [facility] [address] [facility] [address] WBC 7.40 10*3/uL 4.0-11.0 RBC 5.17 10*6/uL 4.6-6.2 HGB 17.6 g/dL 13.5-17.9 HCT 52.7 41-54 MCV 101.9 fL H 80-100 MCH 34.0 pg H 27-33 MCHC 33.4 g/dL 32.0-37.5 PLT 88 10*3/uL L 150-400 MPV 14.3 fL H 7.4-10.4 RDW 14.4 11.5-14.5 IPF 18.0 H 0-10 Nov 29, 2021 [facility] PROTHROMBIN Specimen Typ e: PLASMA 06:38 AM TIME/INR No comment enter ed. Ordering Provid er: KATHERINE FIGUEROA Report Released Date/Time: Oct 29, 2021 12:22 PM Reporting Lab: [facility] [address] Performing Lab: [facility] [address] .INR 1.1 0.8-1.1 .PT 13.1 s H 9.4-12.5 Nov 29, 2021 [facility] ACT PART Specimen Typ e: PLASMA 06:38 AM THROMBO TIME No comment enter ed. Ordering Provid er: KATHERINE FIGUEROA Report Released Date/Time: Oct 29, 2021 12:22 PM Reporting Lab: [facility] [address] Performing Lab: [facility] [address] APTT 33.3 s 25.1-36.5 Advance Directives: All [...] Mar 06, 2005 ADVANCE DIRECTIVE GANESH RODRIGUEZ [facility] Radiology Reports: +/- 30 days of the [...] the Encounter. The data comes from all [place] treatment facilities. Date/Time Radiology Report Provider Source Nov 30, 2021 07:05 AM CHEST 2 VIEWS PA AND LAT: MONET LUDWIG [facility] PAUL MICHELE [id number] -[birth year] M Exm Date: NOV 30, 2021@07:05 Req Phys: CHERRY MENDOZA Loc: 3LSOB/ 2@08:05 Img Loc: MAIN X-RAY Service: zzcard sect (Case [id number] COMPLETE) CHEST 2 VIEWS PA AND LAT (R AD Detailed) CPT:11850 Reason for Study: s/p upgrade ICD adding [...] pager listed below: User placing orders pager: [phone] LAST CREATININE 1.4 H (11/29/21) Report Status: Verified Date Reported: NOV 30, 2021 Date Verified: NOV 30, 2021 Maintenance Journeyman E-Sig:/ES/MONET LUDWIG MD, FACR, C CD Report: [...] 06:25 PM CHEST 1 VIEW: MAGDALENE DAVIDSON [facility] PAUL MICHELE [id number] -[birth year] M Exm Date: NOV 29, 2021@18:25 Req Phys: CHERRY MENDOZA Pat Loc: [facility] [address] [facility] (Req'g Loc) Img Loc: MAIN X-RAY Service: Unknown (Case [id number] COMPLETE) CHEST 1 VIEW (RAD Detailed) CPT:35373 Reason for Study: s/p upgrade ICD adding an A l ead Clinical History: Immediate Post-Op Pacemaker/ICD placement [place] IS NOT under investigation for COVID-19 or is COVID-19 negative s/p upgrade his ICD to dual chamber (adding an A lead) Responsible provider name and phone number to n otify for critical findings if other than user placing the order a nd pager listed below: User placing orders pager: [phone] LAST CREATININE 1.4 H (11/29/21) Report Status: Verified Date Reported: NOV 29, 2021 Date Verified: NOV 29, 2021 Maintenance Journeyman E-Sig:/ES/MAGDALENE DAVIDSON MD Report: DATE/TIME REGISTERED: 11/29/2021 [...] Primary Interpreting Staff: MAGDALENE DAVIDSON MD, RADIOLOGIST (Maintenance Journeyman) /LUAN
--- OUTSIDE RECORDS SUMMARY | 2022-04-02 16:08 | XMS_ITS | Encounter Summary ---
:1945 Author Organization Department [facility] Address [address] [place] [address] Care Team Providers Name Role Phone CROUCH [...] MEDICARE MEDICARE PART Jun 25, PART B [id number] Saumya QUINONES PATIENT (WNR) (M) B 2011 78A 0 AVID MEDICARE MEDICARE PART Sep 25, PART A [id number] Saumya QUINONES PATIENT (WNR) (M) A 2009 78A 0 AVID MEDICARE MEDICARE PART Sep 25, PART A [id number] Saumya MICHELE (WNR) (M) A 2009 78A [phone] AVID MEDICARE MEDICARE PART Sep 25, PART B [id number] Saumya MICHELE ATTHOMAS (WNR) (M) B 2009 78A [phone] AVID Selected Encounter This section includes the information on record at [place] for the Encounter. Date/Time Encounter Type Encounter Description Reason Provider Source Nov 02, 2021 12:42 Outpatient Encounter EVENT (HISTORICAL) PM IHE Encounter Template Text not used by [facility] Plan of Treatment: Future Appointments (+ 6 months) and Future Tests (+/- 45 days) The Plan of Treatment section includes future care activities for the patient [facility] [place] [facility] This section includes future appointments and future orders which are active, pending orscheduled.Future Appointments This section includes appointments that were scheduled to occur 6 months from the date of the Encounter, up to a maximum of 20 appointments. The data comes from all [place] treatment [facility]. Appointment Date/Time Appointment Type Appointment Facili ty Name Nov 05, 2021 11:30 AM AMBULATORY - MEDICINE [facility] Nov 09, 2021 09:30 AM AMBULATORY - NONE [facility] Nov 19, 2021 12:45 PM AMBULATORY - MEDICINE [facility] Nov 21, 2021 10:00 AM AMBULATORY - SURGERY [facility] Nov 29, 2021 06:30 AM AMBULATORY - NONE [facility] Nov 29, 2021 07:30 AM AMBULATORY - MEDICINE [facility] Nov 29, 2021 08:00 AM AMBULATORY - MEDICINE [facility] Dec 21, 2021 09:30 AM AMBULATORY - NONE [facility] January 07, 2022 01:30 PM AMBULATORY - MEDICINE [facility] Feb 05, 2022 07:00 AM AMBULATORY - NONE [facility] Feb 07, 2022 09:30 AM AMBULATORY - NONE [facility] Feb 13, 2022 10:00 AM AMBULATORY - NONE [facility] Mar 21, 2022 09:30 AM AMBULATORY - NONE [facility] Active, Pending, and Scheduled Orders This section includes a listing of several types of active, pending, and scheduled orders, including clinic medications orders, diagnostic test orders, procedure orders and consult orders; where the start date of the order is 45 days before the date of the Encounter or 45 days after the date of the Encounter. The data comes from all [place] treatment [facility]. Test Date/Time Test Type Test Details Facility Name Sep 25, 2021 03:21 PM Pharmacy - Clinic [facility] Infusion Order Nov 29, 2021 06:30 AM Laboratory - Blood Bank TYPE & SCREEN - LA B [facility] Order BLOOD SP Dec 15, 2021 12:00 AM Laboratory - Chemistry BASIC METABOLIC MIN [facility] Order PANEL+MG PLASMA SP Lab Results: +/- [...] Reference Range Comment Nov 30, 2021 11:26 [facility] FINGERSTICK GLUCOSE Speci men Type: BLOOD AM Comment: [place] Nurse Notified Ordering Provid er: GRANT,IRENE TWO Report Released Date/Time: Nov 30, 2021 11:46 AM Reporting Lab: [facility] [address] [facility] [address] Performing Lab: [facility] [address] [facility] [address] FINGERSTICK GLUCOSE 284 mg/dL H 70-100 Nov 30, 2021 09:47 AM [facility] ALBUMIN Specim en Type: PLASMA No comment enter ed. Ordering Provid er: ELIUD DINERO Report Released Date/Time: Nov 29, 2021 07:53 PM Reporting Lab: [facility] [address] [facility] [address] Performing Lab: [facility] [address] [facility] [address] ALBUMIN 3.4 g/dL L 3.5-5.2 Nov 30, 2021 09:47 [facility] BASIC METABOLIC Specimen Type: PLASMA AM PANEL+MG No comment enter ed. Ordering Provid er: ANGIE MALHOTRA Report Released Date/Time: Nov 29, 2021 08:12 PM Reporting Lab: [facility] [address] [facility] [address] Performing Lab: [facility] [address] [facility] [address] CREATININE 1.2 mg/dL 0.7-1.2 UREA NITROGEN 18 mg/dL 8-26 GLUCOSE 342 mg/dL H 74-100 SODIUM 141 mmol/L 136-145 POTASSIUM 4.3 mmol/L 3.5-5.1 CHLORIDE 108 mmol/L H 98-107 CO2 26 mmol/L 22-29 CALCIUM 8.6 mg/dL 8.4-10.2 MAGNESIUM 1.5 mg/dL L 1.6-2.6 ANION GAP 7 mmol/L 5-15 CREAT EGFR(CKD-EPI) 63 >60 Nov 30, 2021 09:46 AM [facility] CBC Specim en Type: BLOOD No comment enter ed. Ordering Provid er: ANGIE MALHOTRA Report Released Date/Time: Nov 29, 2021 08:12 PM Reporting Lab: [facility] [address] [facility] [address] Performing Lab: [facility] [address] [facility] [address] WBC 10.61 10*3/uL 4.0-11.0 RBC 4.33 10*6/uL L 4.6-6.2 HGB 14.6 g/dL 13.5-17.9 HCT 45.2 41-54 MCV 104.4 fL H 80-100 MCH 33.7 pg H 27-33 MCHC 32.3 g/dL 32.0-37.5 PLT 71 10*3/uL L 150-400 MPV 13.9 fL H 7.4-10.4 RDW 14.7 H 11.5-14.5 IPF 17.8 H 0-10 Nov 30, 2021 06:09 [facility] FINGERSTICK GLUCOSE Speci men Type: BLOOD AM Comment: [place] Nurse Notified Ordering Provid er: TEAM,CARDS TWO Report Released Date/Time: Nov 30, 2021 06:32 AM [facility] [address] [facility] Lab[facility] [address] FINGERSTICK GLUCOSE 165 mg/dL H 70-100 Nov 29, 2021 07:35 [facility] FINGERSTICK GLUCOSE Speci men Type: BLOOD PM Comment: [place] Nurse Notified Ordering Provid er: TEAM,CARDS TWO Report Released Date/Time: Nov 29, 2021 07:48 PM Reporting [facility] [address] Performing Lab: [facility] [address] [facility] [address] FINGERSTICK GLUCOSE 160 mg/dL H 70-100 Nov 29, 2021 06:52 [facility] FINGERSTICK GLUCOSE Speci men Type: BLOOD PM Comment: [place] Nurse Notified Ordering Provid er: SAKSHI CROUCH Report Released Date/Time: Nov 29, 2021 07:04 PM Reporting Lab: [facility] [address] [facility] [address] Performing Lab: [facility] [address] FINGERSTICK GLUCOSE 161 mg/dL H 70-100 Nov 29, 2021 04:18 [facility] FINGERSTICK GLUCOSE Speci men Type: BLOOD PM No comment enter ed. Ordering Provid er: IRENE BURNS TWO Report Released Date/Time: Nov 29, 2021 08:08 PM Reporting Lab: [facility] [address] [facility] [address] Performing Lab: [facility] [address] [facility] [address] FINGERSTICK GLUCOSE 179 mg/dL H 70-100 Nov 29, 2021 03:26 [facility] POC ABG/ELECTROLYTES Spec imen Type: ARTERIAL BLOOD PM Comment: Sample Type = ARTERIAL Ordering Provid er: IRENE BURNS TWO Report Released Date/Time: Nov 29, 2021 07:53 PM Reporting Lab: [facility] [address] [facility] [address] Performing Lab: [facility] [address] [facility] [address] POC PH 7.321 L 7.35-7.45 POC PCO2 [...] mg/dL L 4.50-5.30 Nov 29, 2021 03:24 [facility] FINGERSTICK GLUCOSE Speci men Type: BLOOD PM Comment: Save R esult Ordering Provid er: IRENE BURNS TWO Report Released Date/Time: Nov 29, 2021 08:08 PM Reporting Lab: [facility] [address] [facility] [address] Performing Lab: [facility] [address] [facility] [address] FINGERSTICK GLUCOSE 188 mg/dL H 70-100 Nov 29, 2021 02:06 [facility] POC ABG/ELECTROLYTES Spec imen Type: ARTERIAL BLOOD PM Comment: Sample Type = ARTERIAL Ordering Provid er: IRENE BURNS TWO Report Released Date/Time: Nov 29, 2021 07:53 PM Reporting Lab: [facility] [address] [facility] [address] Performing Lab: [facility] [address] [facility] [address] POC PH 7.313 L 7.35-7.45 POC PCO2 [...] mg/dL L 4.50-5.30 Nov 29, 2021 02:04 [facility] FINGERSTICK GLUCOSE Speci men Type: BLOOD PM Comment: Save R esult Ordering Provid er: IRENE BURNS TWO Report Released Date/Time: Nov 29, 2021 08:08 PM Reporting Lab: [facility] [address] [facility] [address] Performing Lab: [facility] [address] FINGERSTICK GLUCOSE 236 mg/dL H 70-100 Nov 29, 2021 01:52 PM [facility] POC ACT Specim en Type: BLOOD No comment enter ed. Ordering Provid er: IRENE BURNS Report Released Date/Time: Dec 03, 2021 01:31 PM Reporting Lab: [facility] [address] [facility] [address] Performing Lab: [facility] [address] POC ACT 135 s 84-139 Nov 29, 2021 01:16 PM [facility] POC ACT Specim en Type: BLOOD No comment enter ed. Ordering Provid er: IRENE BURNS TWO Report Released Date/Time: Dec 03, 2021 01:30 PM Reporting Lab: [facility] [address] [facility] [address] Performing Lab: [facility] [address] POC ACT 355 s 84-139 Nov 29, 2021 12:49 PM [facility] POC ACT Specim en Type: BLOOD No comment enter ed. Ordering Provid er: IRENE BURNS TWO Report Released Date/Time: Dec 03, 2021 01:30 PM Reporting Lab: [facility] [address] [facility] [address] Performing Lab: [facility] [address] [facility] [address] POC ACT 367 s 84-139 Nov 29, 2021 12:48 [facility] POC ABG/ELECTROLYTES Spec imen Type: ARTERIAL BLOOD PM Comment: Sample Type = ARTERIAL Ordering Provid er: IRENE BURNS TWO Report Released Date/Time: Nov 29, 2021 07:53 PM Reporting Lab: [facility] [address] [facility] [address] Performing Lab: [facility] [address] POC PH 7.289 L 7.35-7.45 POC PCO2 [...] 4.7 mg/dL 4.50-5.30 Nov 29, 2021 12:45 [facility] FINGERSTICK GLUCOSE Speci men Type: BLOOD PM Comment: Save R esult Ordering Provid er: IRENE BURNS TWO Report Released Date/Time: Nov 29, 2021 08:08 PM Reporting Lab: [facility] [address] [facility] [address] Performing Lab: [facility] [address] [facility] [address] FINGERSTICK GLUCOSE 186 mg/dL H 70-100 Nov 29, 2021 12:26 PM [facility] POC ACT Specim en Type: BLOOD No comment enter ed. Ordering Provid er: IRENE BURNS Report Released Date/Time: Dec 03, 2021 01:30 PM Reporting Lab: [facility] [address] [facility] [address] Performing Lab: [facility] [address] [facility] [address] POC ACT 367 s 84-139 Nov 29, 2021 11:58 AM [facility] POC ACT Specim en Type: BLOOD No comment enter ed. Ordering Provid er: IRENE BURNS Report Released Date/Time: Dec 03, 2021 01:30 PM Reporting Lab: [facility] [address] [facility] [address] Performing Lab: [facility] [address] [facility] [address] POC ACT 338 s 84-139 Nov 29, 2021 11:53 [facility] FINGERSTICK GLUCOSE Speci men Type: BLOOD AM Comment: Save R esult Ordering Provid er: IRENE BURNS Report Released Date/Time: Nov 29, 2021 08:08 PM Reporting Lab: [facility] [address] [facility] [address] Performing Lab: [facility] [address] [facility] [address] FINGERSTICK GLUCOSE 225 mg/dL H 70-100 Nov 29, 2021 11:30 AM [facility] POC ACT Specim en Type: BLOOD No comment enter ed. Ordering Provid er: IRENE BURNS Report Released Date/Time: Dec 03, 2021 01:30 PM Reporting Lab: [facility] [address] [facility] [address] Performing Lab: [facility] [address] [facility] [address] POC ACT 355 s 84-139 Nov 29, 2021 11:26 [facility] POC ABG/ELECTROLYTES Spec imen Type: ARTERIAL BLOOD AM Comment: Sample Type = ARTERIAL Ordering Provid er: IRENE BURNS Report Released Date/Time: Nov 29, 2021 07:53 PM Reporting Lab: [facility] [address] [facility] [address] Performing Lab: [facility] [address] [facility] [address] POC PH 7.317 L 7.35-7.45 POC PCO2 [...] 4.8 mg/dL 4.50-5.30 Nov 29, 2021 11:06 [facility] FINGERSTICK GLUCOSE Speci men Type: BLOOD AM No comment enter ed. Ordering Provid er: IRENE BURNS Report Released Date/Time: Nov 29, 2021 08:08 PM Reporting Lab: [facility] [address] [facility] [address] Performing Lab: [facility] [address] [facility] [address] FINGERSTICK GLUCOSE 221 mg/dL H 70-100 Nov 29, 2021 11:02 AM [facility] POC ACT Specim en Type: BLOOD No comment enter ed. Ordering Provid er: IRENE BURNS Report Released Date/Time: Dec 03, 2021 01:30 PM Reporting Lab: [facility] [address] [facility] [address] Performing Lab: [facility] [address] [facility] [address] POC ACT 294 s 84-139 Nov 29, 2021 10:26 AM [facility] POC ACT Specim en Type: BLOOD No comment enter ed. Ordering Provid er: IRENE BURNS Report Released Date/Time: Dec 03, 2021 01:30 PM Reporting Lab: [facility] [address] [facility] [address] Performing Lab: [facility] [address] [facility] [address] POC ACT 329 s 84-139 Nov 29, 2021 10:06 AM [facility] POC ACT Specim en Type: BLOOD No comment enter ed. Ordering Provid er: IRENE BURNS Report Released Date/Time: Dec 03, 2021 01:30 PM Reporting Lab: [facility] [address] [facility] [address] Performing Lab: [facility] [address] [facility] [address] POC ACT 312 s 84-139 Nov 29, 2021 09:58 [facility] POC ABG/ELECTROLYTES Spec imen Type: ARTERIAL BLOOD AM Comment: Sample Type = ARTERIAL Ordering Provid er: IRENE BURNS Report Released Date/Time: Nov 29, 2021 07:53 PM Reporting Lab: [facility] [address] [facility] [address] Performing Lab: [facility] [address] [facility] [address] POC PH 7.334 L 7.35-7.45 POC PCO2 [...] 4.9 mg/dL 4.50-5.30 Nov 29, 2021 09:56 [facility] FINGERSTICK GLUCOSE Speci men Type: BLOOD AM No comment enter ed. Ordering Provid er: IRENE BURNS TWO Report Released Date/Time: Nov 29, 2021 08:08 PM Reporting Lab: [facility] [address] [facility] [address] Performing Lab: [facility] [address] [facility] [address] FINGERSTICK GLUCOSE 194 mg/dL H 70-100 Nov 29, 2021 09:45 AM [facility] POC ACT Specim en Type: BLOOD No comment enter ed. Ordering Provid er: IRENE BURNS TWO Report Released Date/Time: Dec 03, 2021 01:30 PM Reporting Lab: [facility] [address] [facility] [address] Performing Lab: [facility] [address] [facility] [address] POC ACT 269 s 84-139 Nov 29, 2021 08:59 AM [facility] POC ACT Specim en Type: BLOOD No comment enter ed. Ordering Provid er: IRENE BURNS TWO Report Released Date/Time: Dec 03, 2021 01:30 PM Reporting Lab: [facility] [address] [facility] [address] Performing Lab: [facility] [address] [facility] [address] POC ACT 135 s 84-139 Nov 29, 2021 [facility] COVID-19 AND FLU/RSV Specime n Type: NASOPHARYNGEAL 07:05 AM DIAG PANEL(CEPHEID) Comment: Ce pheid GeneXpert (618) Ordering Provid er: KATHERINE FIGUEROA Report Released Date/Time: Oct 29, 2021 12:22 PM Reporting Lab: [facility] [address] Performing Lab: [facility] [address] COVID-19 (CEPHEID) Not Detected Not Dete cted INFLUENZA A (PCR) Not Detected Not Detec susanne INFLUENZA B (PCR) Not Detected Not Detec susanne RSV (PCR) Not Detected Not Detected Nov 29, 2021 [facility] BASIC METABOLIC Specimen Typ e: PLASMA 06:38 AM PANEL+MG No comment enter ed. Ordering Provid er: KATHERINE FIGUEROA Report Released Date/Time: Oct 29, 2021 12:22 PM Reporting Lab: [facility] [address] Performing Lab: [facility] [address] CREATININE 1.4 mg/dL H 0.7-1.2 UREA NITROGEN 23 mg/dL 8-26 GLUCOSE 201 mg/dL H 74-100 SODIUM 143 mmol/L 136-145 POTASSIUM 4.3 mmol/L 3.5-5.1 CHLORIDE 108 mmol/L H 98-107 CO2 28 mmol/L 22-29 CALCIUM 9.9 mg/dL 8.4-10.2 MAGNESIUM 1.9 mg/dL 1.6-2.6 ANION GAP 7 mmol/L 5-15 CREAT EGFR(CKD-EPI) 53 L >60 Nov 29, 2021 06:38 [facility] CBC Specimen Type: BLOOD AM No comment enter ed. Ordering Provid er: KATHERINE FIGUEROA Report Released Date/Time: Oct 29, 2021 12:22 PM Reporting Lab: [facility] [address] Performing Lab: [facility] [address] WBC 7.40 10*3/uL 4.0-11.0 RBC 5.17 10*6/uL 4.6-6.2 HGB 17.6 g/dL 13.5-17.9 HCT 52.7 41-54 MCV 101.9 fL H 80-100 MCH 34.0 pg H 27-33 MCHC 33.4 g/dL 32.0-37.5 PLT 88 10*3/uL L 150-400 MPV 14.3 fL H 7.4-10.4 RDW 14.4 11.5-14.5 IPF 18.0 H 0-10 Nov 29, 2021 [facility] PROTHROMBIN Specimen Typ e: PLASMA 06:38 AM TIME/INR No comment enter ed. Ordering Provid er: KATHERINE FIGUEROA Report Released Date/Time: Oct 29, 2021 12:22 PM Reporting Lab: [facility] [address] [address] Performing Lab: [facility] [address] .INR 1.1 0.8-1.1 .PT 13.1 s H 9.4-12.5 Nov 29, 2021 [facility] ACT PART Specimen Typ e: PLASMA 06:38 AM THROMBO TIME No comment enter ed. Ordering Provid er: KATHERINE FIGUEROA Report Released Date/Time: Oct 29, 2021 12:22 PM Reporting Lab: [facility] [address] [facility] [address] Performing Lab: [facility] [address] APTT 33.3 s 25.1-36.5 Advance Directives: All [...] this document. The data comes from all [facility]. Date Advance Directives Provider Source Mar 06, 2005 ADVANCE DIRECTIVE GANESH RODRIGUEZ [facility] Radiology Reports: +/- 30 [...] the Encounter. The data comes from all [place] treatment facilities. Date/Time Radiology Report Provider Source Nov 30, 2021 07:05 AM CHEST 2 VIEWS PA AND LAT: MONET LUDWIG [facility] PAUL MICHELE [id number] -JUL 03 7 M Exm Date: NOV 30, 2021@07:05 Req Phys: CHERRY MENDOZA Loc: 3LSOB/ 2@08:05 Img Loc: MAIN X-RAY Service: zzcard sect (Case [id number] COMPLETE) CHEST 2 VIEWS PA AND LAT (R AD Detailed) CPT:54168 Reason for Study: s/p upgrade ICD adding an A l ead Clinical History: Post ICD or Pacemaker: Verify Lead Placement. Basile IS NOT under investigation for COVID-19 or is COVID-19 negative s/p upgrade ICD adding an A lead Responsible pr ovider name and phone number to notify for critical findings if other than user placing the order and pager listed below: User placing orders pager: [phone] LAST CREATININE 1.4 H (11/29/21) Report Status: Verified Date Reported: NOV 30, 2021 Date Verified: NOV 30, 2021 Sales And Production Manager E-Sig:/ES/MONET LUDWIG MD, FACR, C CD Report: [...] 06:25 PM CHEST 1 VIEW: LETYMAGDALENE JOLLY [facility] PAUL MIHCELE [id number] -JUL 03 [birth year] 7 M Exm Date: NOV 29, 2021@18:25 Req Phys: CHERRY MENDOZA Loc: [facility] [address] A[facility] (Req'g Loc) Img Loc: MAIN X-RAY Service: Unknown (Case [id number] COMPLETE) CHEST 1 VIEW (RAD Detailed) CPT:32966 Reason for Study: s/p upgrade ICD adding an A l ead Clinical History: Immediate Post-Op Pacemaker/ICD placement Basile IS NOT under investigation for COVID-19 or is COVID-19 negative s/p upgrade his ICD to dual chamber (adding an A lead) Responsible provider name and phone number to n otify for critical findings if other than user placing the order a nd pager listed below: User placing orders pager: [phone] LAST CREATININE 1.4 H (11/29/21) Report Status: Verified Date Reported: NOV 29, 2021 Date Verified: NOV 29, 2021 Sales And Production Manager E-Sig:/ES/MAGDALENE DAVIDSON MD Report: DATE/TIME REGISTERED: 11/29/2021 [...] Primary Interpreting Staff: MAGDALENE DAVIDSON MD, RADIOLOGIST (Sales And Production Manager) /LUAN
--- OUTSIDE RECORDS SUMMARY | 2022-04-02 16:08 | XMS_ITS | Encounter Summary ---
:1945 Author Organization Department [facility] Address [address] [place] [id number] Care Team Providers Name Role Phone CROUCH [...] MEDICARE MEDICARE PART Jun 25, PART B [id number] Saumya QUINONES PATIENT (WNR) (M) B 2011 78A 0 AVID MEDICARE MEDICARE PART Sep 25, PART A [id number] Saumya QUINONES PATIENT (WNR) (M) A 2009 78A 0 AVID MEDICARE MEDICARE PART Sep 25, PART A [id number] Saumya MICHELE (WNR) (M) A 2009 [id number] [id number] AVID MEDICARE MEDICARE PART Sep 25, PART B [id number] Saumya MICHELE (WNR) (M) B 2009 [id number] [phone] AVID Selected Encounter This section includes the information on record at [place] for the Encounter. Date/Time Encounter Type Encounter Reason Provider Source Description Aug 03, 2021 REM INTERROG [employer] DEVICES ICD-10-CM Z95.810 JADA MOREJON 10:46 AM EVL PM/IDS Presence of Y automatic (implantable) cardiac defibrillator with Provider Comments: Presence of automatic (implantable) cardiac defibrillator IHE Encounter Template Text not used by [place] Assessments - Encounter Diagnoses This section includes the primary and secondary diagnoses documented for the Encounter. Date/Time Primary/Secondary Diagnosis Name Provider Source Diagnosis Aug 31, 2021 PRIMARY Presence of GARETH GUZMÁN 09:42 AM automatic M [facility] (implantable) cardiac defibrillator Plan of Treatment: Future Appointments (+ 6 months) and Future Tests (+/- 45 days) The Plan of Treatment section includes future care activities for the patient from all [place] [facility]. This section includes future appointments and future orders which are active, pending orscheduled.Future Appointments This section includes appointments that were scheduled to occur 6 months from the date of the Encounter, up to a maximum of 20 appointments. The data comes from all [place] treatment facilities. Appointment Date/Time Appointment Type Appointment Facili ty Name Aug 08, 2021 07:00 AM AMBULATORY - NONE [facility] Aug 10, 2021 10:30 AM AMBULATORY - NONE [facility] Sep 14, 2021 09:00 AM AMBULATORY - NONE [facility] Sep 21, 2021 09:45 AM AMBULATORY - MEDICINE [facility] Sep 21, 2021 10:00 AM AMBULATORY - MEDICINE [facility] Sep 21, 2021 10:30 AM AMBULATORY - MEDICINE [facility] Sep 21, 2021 11:00 AM AMBULATORY - MEDICINE [facility] Sep 21, 2021 11:30 AM AMBULATORY - MEDICINE [facility] Oct 12, 2021 09:30 AM AMBULATORY - NONE [facility] Nov 02, 2021 08:42 PM AMBULATORY - MEDICINE [facility] Nov 05, 2021 11:30 AM AMBULATORY - MEDICINE [facility] Nov 09, 2021 09:30 AM AMBULATORY - NONE [facility] Nov 19, 2021 12:45 PM AMBULATORY - MEDICINE [facility] Nov 21, 2021 10:00 AM AMBULATORY - SURGERY [facility] S Nov 29, 2021 06:30 AM AMBULATORY - NONE [facility] Nov 29, 2021 07:30 AM AMBULATORY - MEDICINE [facility] Nov 29, 2021 08:00 AM AMBULATORY - MEDICINE [facility] H Dec 21, 2021 09:30 AM AMBULATORY - NONE [facility] January 07, 2022 01:30 PM AMBULATORY - MEDICINE [facility] CS Active, Pending, and Scheduled Orders This section includes a listing of several types of active, pending, and scheduled orders, including clinic medications orders, diagnostic test orders, procedure orders and consult orders; where the start date of the order is 45 days before the date of the Encounter or 45 days after the date of the Encounter. The data comes from all [facility] facilities. Test Date/Time Test Type Test Details Facility Name Jul 26, 2021 09:16 AM Pharmacy - Clinic Infusion [facility] Order Advance Directives: All historical and current Section Date Range: From patient's date of to the date document was created. This section includes ALL of a patient's completed or amended [place] Advance and Rescinded Directives. The entries below indicate that a directive exists for the patient, but an actual copy is not included with this document. The data comes from all [facility]. Date Advance Directives Provider Source Mar 06, 2005 ADVANCE DIRECTIVE MICHAELGANESH [facility] Radiology Reports: +/- 30 days of the [...] the Encounter. The data comes from all [facility]. Date/Time Radiology Report Provider Source Jul 26, 2021 09:06 AM US RIGHT UPPER QUADRANT (P): LAMBERT DHILLON [facility] PAUL MICHELE [id number] -1945 M Exm Date: JUL 26, 2021@09:06 Req Phys: SAKSHI CROUCH Loc: [facility] PACT CLOUD 4E (Req'g Loc) Img Loc: Ultrasound Imaging Service: Unknown (Case 2006 COMPLETE) US ECHOGRAM ABDOMEN LTD (US Detailed) CPT:92094 Proc Modifiers : RIGHT Reason for Study: Chronic thrombocytopenia Clinical History: [place] IS NOT under investigation for COVID-19 or is COVID-19 negative Look for any evident cirrhosis Responsible prov ider name and phone number to notify for critical findings if other than user placing the order and pager listed below: User placing orders pager: [phone] LAST CREATININE 1.3 H (10/25/21) Report Status: Verified Date Reported: JUL 26, 2021 Date Verified: JUL 26, 2021 Enrollment Nurse E-Sig:/ES/JOSE DHILLON MD Report: EXAM: Right upper quadrant abdominal ultrasound 05/26/2021 HISTORY: 76-year-old male. Chronic thrombocytop enia. Look for any evidence cirrhosis. COMPARISON: No prior sonographic imaging of the abdomen is available for comparison. Low-dose CT chest 01/26, 10/24/2017. TECHNIQUE: Sonographic evaluation of the right upper quadrant was performed. FINDINGS: LIVER: Densely hyperechogenic moderately coarse hepatic parenchyma. There is a smooth contour of the he patic surface. No sonographic evidence for focal hepatic mass. No intrahepatic biliary dilation. There is flow towards the charlie er in the main portal vein. GALLBLADDER: Cholelithiasis. No gallbladder wal l thickening or pericholecystic fluid. Negative sonographic Mur phy's sign. COMMON DUCT: Nondilated, measures 3 mm. PANCREAS: The partially visualized portions of the pancreas are unremarkable. The posterior pancreatic head, po sterior pancreatic body and pancreatic tail are not well seen. Yepez creas is more fully depicted on noncontrast chest CT 01/26/2018 . RIGHT KIDNEY: The right kidney measures 10.6 cm . There is no hydronephrosis. Doppler evaluation shows flow t o the right kidney. Impression: 1. Hyperechogenic hepatic parenchyma with coars e echotexture, nonspecific findings, which can be seen in degr ees of fatty infiltration, or intrinsic hepatic parenchymal disease. No hepatic surface nodularity. No suspect focal li fani mass. 2. Cholelithiasis without findings of acute cho lecystitis. 3. Suboptimal visualization of posterior pancre atic head, distal pancreatic body, and pancreatic tail. I, JOSE DHILLON, have reviewed the images a nd report. Primary Interpreting Staff: JOSE DHILLON MD, RADIOLOGIST (Enrollment Nurse) Primary Interpreting Resident: KIMBERLY GOODSON DO, RAILROAD TRACK REPAIR SUPERVISOR /NVP
--- OUTSIDE RECORDS SUMMARY | 2022-04-02 16:08 | XMS_ITS | Encounter Summary ---
:1945 Author Organization [facility] Address [address] [place], [place] [address] Care Team Providers Name Role Phone WILLA [...] MEDICARE MEDICARE PART Jun 25, PART B [id number] Saumya QUINONES PATIENT (WNR) (M) B 2011 78A 0 AVID MEDICARE MEDICARE PART Sep 25, PART A [id number] Saumya QUINONES PATIENT (WNR) (M) A 2009 78A 0 AVID MEDICARE MEDICARE PART Sep 25, PART A [id number] Saumya MICHELE (WNR) (M) A 2009 78A [id number] AVID MEDICARE MEDICARE PART Sep 25, PART B [id number] Saumya MICHELE ATTHOMAS (WNR) (M) B 2009 78A [phone] AVID Selected Encounter This section includes the information on record at OR for the Encounter. Date/Time Encounter Type Encounter Description Reason Provider Source Nov 29, 2021 08:06 PM Inpatient Visit CLINICAL PHARMACY E Encounter Template Text not used by OR Plan of Treatment: Future Appointments (+ 6 months) and Future Tests (+/- 45 days) The Plan of Treatment section includes future care activities for the [facility] This section includes future appointments and future orders which are active, pending orscheduled.Future Appointments This section includes appointments that were scheduled to occur 6 months from the date of the Encounter, up to a maximum of 20 appointments. The data comes from all [facility]. Appointment Date/Time Appointment Type Appointment Facili ty Name Dec 21, 2021 09:30 AM AMBULATORY - NONE [facility] January 07, 2022 01:30 PM AMBULATORY - MEDICINE [facility] Feb 05, 2022 07:00 AM AMBULATORY - NONE [facility] Feb 07, 2022 09:30 AM AMBULATORY - NONE [facility] Feb 13, 2022 10:00 AM AMBULATORY [facility] Mar 21, 2022 09:30 AM AMBULATORY [facility] Active, Pending, and Scheduled Orders This section includes a listing of several types of active, pending, and scheduled orders, including clinic medications orders, diagnostic test orders, procedure orders and consult orders; where the start date of the order is 45 days before the date of the Encounter or 45 days after the date of the Encounter. The data comes from all [facility]. Test Date/Time Test Type Test Details Facility Name Nov 29, 2021 06:30 AM Laboratory - Blood Bank TYPE & SCREEN - LA B [facility] Order BLOOD SP Dec 15, 2021 12:00 AM Laboratory - Chemistry BASIC METABOLIC MIN [facility] Order PANEL+MG PLASMA SP Lab Results: [...] Reference Range Comment Nov 30, 2021 11:26 [facility] FINGERSTICK GLUCOSE Speci men Type: BLOOD AM Comment: [place] Nurse Notified Ordering Provid er: TEAM,CARDS TWO Report Released Date/Time: Nov 30, 2021 11:46 AM Reporting Lab: [facility] ONE [facility] [address] Performing Lab: [facility] [address] [facility] [address] FINGERSTICK GLUCOSE 284 mg/dL H 70-100 Nov 30, 2021 09:47 AM [facility] ALBUMIN Specim en Type: PLASMA No comment enter ed. Ordering Provid er: ELIUD DINERO Report Released Date/Time: Nov 29, 2021 07:53 PM Reporting Lab: [facility] [address] [facility] [address] Performing Lab: [facility] [address] [facility] [address] ALBUMIN 3.4 g/dL L 3.5-5.2 Nov 30, 2021 09:47 [facility] BASIC METABOLIC Specimen Type: PLASMA AM PANEL+MG No comment enter ed. Ordering Provid er: ANGIE SIMS Report Released Date/Time: Nov 29, 2021 08:12 PM Reporting Lab: [facility] [address] [facility] [address] Performing Lab: [facility] [address] [facility] [address] CREATININE 1.2 mg/dL 0.7-1.2 UREA NITROGEN 18 mg/dL 8-26 GLUCOSE 342 mg/dL H 74-100 SODIUM 141 mmol/L 136-145 POTASSIUM 4.3 mmol/L 3.5-5.1 CHLORIDE 108 mmol/L H 98-107 CO2 26 mmol/L 22-29 CALCIUM 8.6 mg/dL 8.4-10.2 MAGNESIUM 1.5 mg/dL L 1.6-2.6 ANION GAP 7 mmol/L 5-15 CREAT EGFR(CKD-EPI) 63 >60 Nov 30, 2021 09:46 AM [facility] CBC Specim en Type: BLOOD No comment enter ed. Ordering Provid er: ANGIE SIMS Report Released Date/Time: Nov 29, 2021 08:12 PM Reporting Lab: [facility] [address] [facility] [address] Performing Lab: [facility] [address] [facility] [address] WBC 10.61 10*3/uL 4.0-11.0 RBC 4.33 10*6/uL L 4.6-6.2 HGB 14.6 g/dL 13.5-17.9 HCT 45.2 41-54 MCV 104.4 fL H 80-100 MCH 33.7 pg H 27-33 MCHC 32.3 g/dL 32.0-37.5 PLT 71 10*3/uL L 150-400 MPV 13.9 fL H 7.4-10.4 RDW 14.7 H 11.5-14.5 IPF 17.8 H 0-10 Nov 30, 2021 06:09 [facility] FINGERSTICK GLUCOSE Speci men Type: BLOOD AM Comment: [place] Nurse Notified Ordering Provid er: IRENE BURNS TWO Report Released Date/Time: Nov 30, 2021 06:32 AM Reporting Lab: [facility] [address] [facility] [address] Performing Lab: [facility] [address] [facility] [address] FINGERSTICK GLUCOSE 165 mg/dL H 70-100 Nov 29, 2021 07:35 [facility] FINGERSTICK GLUCOSE Speci men Type: BLOOD PM Comment: [place] Nurse Notified Ordering Provid er: IRENE BURNS TWO Report Released Date/Time: Nov 29, 2021 07:48 PM Reporting Lab: [facility] [address] [facility] [address] Performing Lab: [facility] [address] [facility] [address] FINGERSTICK GLUCOSE 160 mg/dL H 70-100 Nov 29, 2021 06:52 [facility] FINGERSTICK GLUCOSE Speci men Type: BLOOD PM Comment: [place] Nurse Notified Ordering Provid er: SAKSHI CROUCH Report Released Date/Time: Nov 29, 2021 07:04 PM Reporting Lab: [facility] [address] [facility] [address] Performing Lab: [facility] [address] [facility] [address] FINGERSTICK GLUCOSE 161 mg/dL H 70-100 Nov 29, 2021 04:18 [facility] FINGERSTICK GLUCOSE Speci men Type: BLOOD PM No comment enter ed. Ordering Provid er: IRENE BURNS TWO Report Released Date/Time: Nov 29, 2021 08:08 PM Reporting Lab: [facility] [address] [facility] [address] Performing Lab: [facility] [address] [facility] [address] FINGERSTICK GLUCOSE 179 mg/dL H 70-100 Nov 29, 2021 03:26 [facility] POC ABG/ELECTROLYTES Spec imen Type: ARTERIAL BLOOD PM Comment: Sample Type = ARTERIAL Ordering Provid er: IRENE BURNS TWO Report Released Date/Time: Nov 29, 2021 07:53 PM Reporting Lab: [facility] [address] Performing Lab: [facility] [address] POC PH 7.321 L 7.35-7.45 POC PCO2 [...] mg/dL L 4.50-5.30 Nov 29, 2021 03:24 [facility] FINGERSTICK GLUCOSE Speci men Type: BLOOD PM Comment: Save R esult Ordering Provid er: TEAM,CARDS TWO Report Released Date/Time: Nov 29, 2021 08:08 PM Reporting Lab: [facility] [address] Performing Lab: [facility] [address] FINGERSTICK GLUCOSE 188 mg/dL H 70-100 Nov 29, 2021 02:06 [facility] POC ABG/ELECTROLYTES Spec imen Type: ARTERIAL BLOOD PM Comment: Sample Type = ARTERIAL Ordering Provid er: TEAM,CARDS TWO Report Released Date/Time: Nov 29, 2021 07:53 PM Reporting Lab: [facility] [address] Performing Lab: [facility] [address] POC PH 7.313 L 7.35-7.45 POC PCO2 [...] mg/dL L 4.50-5.30 Nov 29, 2021 02:04 [facility] FINGERSTICK GLUCOSE Speci men Type: BLOOD PM Comment: Save R esult Ordering Provid er: IRENE BURNS Report Released Date/Time: Nov 29, 2021 08:08 PM Reporting Lab: [facility] [address] [facility] [address] Performing Lab: [facility] [address] [facility] [address] FINGERSTICK GLUCOSE 236 mg/dL H 70-100 Nov 29, 2021 01:52 PM [facility] POC ACT Specim en Type: BLOOD No comment enter ed. Ordering Provid er: IRENE BURNS Report Released Date/Time: Dec 03, 2021 01:31 PM Reporting Lab: [facility] [address] [facility] [address] Performing Lab: [facility] [address] [facility] [address] POC ACT 135 s 84-139 Nov 29, 2021 01:16 PM [facility] POC ACT Specim en Type: BLOOD No comment enter ed. Ordering Provid er: IRENE BURNS Report Released Date/Time: Dec 03, 2021 01:30 PM Reporting Lab: [facility] [address] [facility] [address] Performing Lab: [facility] [address] [facility] [address] POC ACT 355 s 84-139 Nov 29, 2021 12:49 PM [facility] POC ACT Specim en Type: BLOOD No comment enter ed. Ordering Provid er: IRENE BURNS Report Released Date/Time: Dec 03, 2021 01:30 PM Reporting Lab: [facility] [address] [facility] [address] Performing Lab: [facility] [address] [facility] [address] POC ACT 367 s 84-139 Nov 29, 2021 12:48 [facility] POC ABG/ELECTROLYTES Spec imen Type: ARTERIAL BLOOD PM Comment: Sample Type = ARTERIAL Ordering Provid er: IRENE BURNS Report Released Date/Time: Nov 29, 2021 07:53 PM Reporting Lab: [facility] [address] [facility] [address] Performing Lab: [facility] [address] [facility] [address] POC PH 7.289 L 7.35-7.45 POC PCO2 [...] 4.7 mg/dL 4.50-5.30 Nov 29, 2021 12:45 [facility] FINGERSTICK GLUCOSE Speci men Type: BLOOD PM Comment: [place] Ordering Provid er: IRENE BURNS TWO Report Released Date/Time: Nov 29, 2021 08:08 PM Reporting Lab: [facility] [address] [facility] [address] Performing [facility]: [facility] [address] FINGERSTICK GLUCOSE 186 mg/dL H 70-100 Nov 29, 2021 12:26 PM [facility] POC ACT Specim en Type: BLOOD No comment enter ed. Ordering Provid er: IRENE BURNS TWO Report Released Date/Time: Dec 03, 2021 01:30 PM Reporting Lab: [facility] [address] [facility] [address] Performing Lab: [facility] [address] [facility] [address] POC ACT 367 s 84-139 Nov 29, 2021 11:58 AM [facility] POC ACT Specim en Type: BLOOD No comment enter ed. Ordering Provid er: IRENE BURNS TWO Report Released Date/Time: Dec 03, 2021 01:30 PM Reporting Lab: [facility] [address] [facility] [address] Performing Lab: [facility] [address] [facility] [address] POC ACT 338 s 84-139 Nov 29, 2021 11:53 [facility] FINGERSTICK GLUCOSE Speci men Type: BLOOD AM Comment: Save R esult Ordering Provid er: IRENE BURNS TWO Report Released Date/Time: Nov 29, 2021 08:08 PM Reporting Lab: [facility] [address] [facility] [address] Performing Lab: [facility] [address] [facility] [address] FINGERSTICK GLUCOSE 225 mg/dL H 70-100 Nov 29, 2021 11:30 AM [facility] POC ACT Specim en Type: BLOOD No comment enter ed. Ordering Provid er: GRANTCARDS TWO Report Released Date/Time: Dec 03, 2021 01:30 PM Reporting Lab: [facility] [address] [facility] [address] Performing Lab: [facility] [address] [facility] [address] POC ACT 355 s 84-139 Nov 29, 2021 11:26 [facility] POC ABG/ELECTROLYTES Spec imen Type: ARTERIAL BLOOD AM Comment: Sample Type = ARTERIAL Ordering Provid er: IRENE BURNS TWO Report Released Date/Time: Nov 29, 2021 07:53 PM Reporting Lab: [facility] [address] [facility] [address] Performing Lab: [facility] [address] POC PH 7.317 L 7.35-7.45 POC PCO2 [...] 4.8 mg/dL 4.50-5.30 Nov 29, 2021 11:06 [facility] FINGERSTICK GLUCOSE Speci men Type: BLOOD AM No comment enter ed. Ordering Provid er: IRENE BURNS TWO Report Released Date/Time: Nov 29, 2021 08:08 PM Reporting Lab: [facility] [address] [facility] [address] Performing Lab: [facility] [address] [facility] [address] FINGERSTICK GLUCOSE 221 mg/dL H 70-100 Nov 29, 2021 11:02 AM [facility] POC ACT Specim en Type: BLOOD No comment enter ed. Ordering Provid er: IRENE BURNS Report Released Date/Time: Dec 03, 2021 01:30 PM Reporting Lab: [facility] [address] [facility] [address] Performing Lab: [facility] [address] [facility] [address] POC ACT 294 s 84-139 Nov 29, 2021 10:26 AM [facility] POC ACT Specim en Type: BLOOD No comment enter ed. Ordering Provid er: IRENE BURNS Report Released Date/Time: Dec 03, 2021 01:30 PM Reporting Lab: [facility] [address] [facility] [address] Performing Lab: [facility] [address] [facility] [address] POC ACT 329 s 84-139 Nov 29, 2021 10:06 AM [facility] POC ACT Specim en Type: BLOOD No comment enter ed. Ordering Provid er: IRENE BURNS Report Released Date/Time: Dec 03, 2021 01:30 PM Reporting Lab: [facility] [address] [facility] [address] Performing Lab: [facility] [address] [facility] [address] POC ACT 312 s 84-139 Nov 29, 2021 09:58 [facility] POC ABG/ELECTROLYTES Spec imen Type: ARTERIAL BLOOD AM Comment: Sample Type = ARTERIAL Ordering Provid er: IRENE BURNS Report Released Date/Time: Nov 29, 2021 07:53 PM Reporting Lab: [facility] [address] [facility] [address] Performing Lab: [facility] [address] [facility] [address] POC PH 7.334 L 7.35-7.45 POC PCO2 [...] 4.9 mg/dL 4.50-5.30 Nov 29, 2021 09:56 [facility] FINGERSTICK GLUCOSE Speci men Type: BLOOD AM No comment enter ed. Ordering Provid er: IRENE BURNS TWO Report Released Date/Time: Nov 29, 2021 08:08 PM Reporting Lab: [facility] [address] [facility] [address] Performing Lab: [facility] [address] [facility] [address] FINGERSTICK GLUCOSE 194 mg/dL H 70-100 Nov 29, 2021 09:45 AM [facility] POC ACT Specim en Type: BLOOD No comment enter ed. Ordering Provid er: IRENE BURNS TWO Report Released Date/Time: Dec 03, 2021 01:30 PM Reporting Lab: [facility] [address] [facility] [address] Performing Lab: [facility] [address] [facility] [address] POC ACT 269 s 84-139 Nov 29, 2021 08:59 AM [facility] POC ACT Specim en Type: BLOOD No comment enter ed. Ordering Provid er: IRENE BURNS TWO Report Released Date/Time: Dec 03, 2021 01:30 PM Reporting Lab: [facility] [address] [facility] [address] Performing Lab: [facility] [address] [facility] [address] POC ACT 135 s 84-139 Nov 29, 2021 [facility] COVID-19 AND FLU/RSV Specime n Type: NASOPHARYNGEAL 07:05 AM DIAG PANEL(CEPHEID) Comment: Ce pheid GeneXpert (618) Ordering Provid er: KATHERINE FIGUEROA Report Released Date/Time: Oct 29, 2021 12:22 PM Reporting Lab: [facility] [address] [facility] [address] Performing Lab: [facility] [address] [facility] [address] COVID-19 (CEPHEID) Not Detected Not Dete cted INFLUENZA A (PCR) Not Detected Not Detec susanne INFLUENZA B (PCR) Not Detected Not Detec susanne RSV (PCR) Not Detected Not Detected Nov 29, 2021 [facility] BASIC METABOLIC Specimen Typ e: PLASMA 06:38 AM PANEL+MG No comment enter ed. Ordering Provid er: KATHERINE FIGUEROA Report Released Date/Time: Oct 29, 2021 12:22 PM Reporting Lab: [facility] [address] [facility] [address] Performing Lab: [facility] [address] CREATININE 1.4 mg/dL H 0.7-1.2 UREA NITROGEN 23 mg/dL 8-26 GLUCOSE 201 mg/dL H 74-100 SODIUM 143 mmol/L 136-145 POTASSIUM 4.3 mmol/L 3.5-5.1 CHLORIDE 108 mmol/L H 98-107 CO2 28 mmol/L 22-29 CALCIUM 9.9 mg/dL 8.4-10.2 MAGNESIUM 1.9 mg/dL 1.6-2.6 ANION GAP 7 mmol/L 5-15 CREAT EGFR(CKD-EPI) 53 L >60 Nov 29, 2021 06:38 [facility] CBC Specimen Type: BLOOD AM No comment enter ed. Ordering Provid er: KATHERINE FIGUEROA Report Released Date/Time: Oct 29, 2021 12:22 PM Reporting Lab: [facility] [address] [facility] [address] Performing Lab: [facility] [address] WBC 7.40 10*3/uL 4.0-11.0 RBC 5.17 10*6/uL 4.6-6.2 HGB 17.6 g/dL 13.5-17.9 HCT 52.7 41-54 MCV 101.9 fL H 80-100 MCH 34.0 pg H 27-33 MCHC 33.4 g/dL 32.0-37.5 PLT 88 10*3/uL L 150-400 MPV 14.3 fL H 7.4-10.4 RDW 14.4 11.5-14.5 IPF 18.0 H 0-10 Nov 29, 2021 [facility] PROTHROMBIN Specimen Typ e: PLASMA 06:38 AM TIME/INR No comment enter ed. Ordering Provid er: KATHERINE FIGUEROA Report Released Date/Time: Oct 29, 2021 12:22 PM Reporting Lab: [facility] [address] Performing Lab: [facility] [address] [facility] [address] .INR 1.1 0.8-1.1 .PT 13.1 s H 9.4-12.5 Nov 29, 2021 [facility] ACT PART Specimen Typ e: PLASMA 06:38 AM THROMBO TIME No comment enter ed. Ordering Provid er: KATHERINE FIGUEROA Report Released Date/Time: Oct 29, 2021 12:22 PM Reporting Lab: [facility] [address] [facility] [address] Performing Lab: [facility] [address] [facility] [address] APTT 33.3 s 25.1-36.5 Vital Signs: All taken on the encounter date This section contains inpatient and outpatient Vital Signs collected on the date of the Encounter. Date/Time Temperature Pulse Blood Respiratory SP02 Pain Height Weight Axel dy Source Pressure Rate Mass Index Nov 29, 98.3 F 96 99/66 18 /min 90 % 0 [place] 2021 11:07 /min mm[Hg] [facility] Nov 29, 98 96 % [place] 2021 08:40 /min [facility] Nov 29, 232 lb 30 [place] 2021 08:38 [facility] Nov 29 112/73 97 % [place] 2021 08:35 /min mm[Hg] [facility] Nov 29, 95 113/69 90 % [place] 2021 08:15 /min mm[Hg] [facility] Social History: Smoking Status (Most current) and [...] Comment Facility Nov 29, 2021 08:36 PM [facility] TOBACCO USE CURRENT NRT [facility] ACCEPT Tobacco Use History This section includes a history of the smoking, or tobacco- related health factors, that were collected on or before the date of the Encounter. The data comes from the [place] facility where the Encounter took place. 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 [facility] Jun 21, 2019 02:29 PM VA-TOBACCO USE MED NO [place] [facility] Jun [...] [place] [facility] Jun 09, 2018 03:48 PM 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 [facility] Jun 09, 2018 03:48 PM VA-TOBACCO USE MED NO [place] [facility] Jun 09, 2018 03:48 PM VA-TOBACCO USE WI 30 MIN OF WAKEUP [facility] Jun 09, 2018 03:48 PM VA-TOBACCO USER EVERY DAY [facility] Jun 20, 2017 07:53 AM CURRENT TOBACCO USER [facility] Jun 19, 2016 08:41 AM CURRENT TOBACCO USER [facility] Jun 21, 2015 08:15 AM CURRENT TOBACCO USER [facility] Mar 22, 2014 10:03 AM CURRENT TOBACCO USER [facility] Mar 25, 2013 11:01 AM CURRENT TOBACCO USER [facility] Feb 05, 2012 08:55 AM CURRENT TOBACCO USER [facility] January 01, 2011 09:26 AM CURRENT TOBACCO USER [facility] Mar 07, 2010 10:02 AM [...] this document. The data comes from all [facility]. Date Advance Directives Provider Source Mar 06, 2005 ADVANCE DIRECTIVE GANESH RODRIGUEZ [facility] Radiology Reports: +/- 30 days [...] the Encounter. The data comes from all [place] treatment facilities. Date/Time Radiology Report Provider Source Nov 30, 2021 07:05 AM CHEST 2 VIEWS PA AND LAT: MONET LUDWIG [facility] PAUL MICHELE [id number] -[birth year] M Exm Date: NOV 30, 2021@07:05 Req Phys: CHERRY MENDOZA Pat Loc: 3LSOB/ 2@08:05 Img Loc: MAIN X-RAY Service: zzcard sect (Case [id number] COMPLETE) CHEST 2 VIEWS PA AND LAT (R AD Detailed) CPT:21060 Reason for Study: s/p upgrade ICD adding an A l ead Clinical History: Post ICD or Pacemaker: Verify Lead Placement. [place] IS NOT under investigation for COVID-19 or is COVID-19 negative s/p upgrade ICD adding an A lead Responsible pr ovider name and phone number to notify for critical findings if other than user placing the order and pager listed below: User placing orders pager: [phone] LAST CREATININE 1.4 H (11/29/21) Report Status: Verified Date Reported: NOV 30, 2021 Date Verified: NOV 30, 2021 Receiving And Processing Supervisor E-Sig:/ES/MONET LUDWIG MD, FACR, C CD Report: [...] 06:25 PM CHEST 1 VIEW: MAGDALENE DAVIDSON [facility] [phone] -[phone] M Exm Date: NOV 29, 2021@18:25 Req Phys: CHERRY MENDOZA Pat Loc: [facility] [address] [facility] (Req'g Loc) Img Loc: MAIN X-RAY Service: Unknown (Case [id number] COMPLETE) CHEST 1 VIEW (RAD Detailed) CPT:01604 Reason for Study: s/p upgrade ICD adding [...] pager listed below: User placing orders pager: [phone] LAST CREATININE 1.4 H (11/29/21) Report Status: Verified Date Reported: NOV 29, 2021 Date Verified: NOV 29, 2021 Receiving And Processing Supervisor E-Sig:/HOLLIE/MAGDALENE DAVIDSON MD Report: DATE/TIME REGISTERED: 11/29/2021 [...] Primary Interpreting Staff: MAGDALENE DAVIDSON MD, RADIOLOGIST (Receiving And Processing Supervisor) /LUAN Encounter Notes: All associated encounter notes This section contains the clinical notes associated to the Encounter. Date/Time Encounter Note(s) Provider Source Nov 29, 2021 08:06 PM PHARMACY MEDICATION MGT NOTE: AM[facility] LOCAL TITLE: DRUG RECONCILIATION ON ADMIT STANDARD TITLE: PHARMACY MEDICATION MGT NOTE DATE OF NOTE: NOV 29, 2021@20:06 ENTRY DATE: NOV 29, 2021@20:06:36 AUTHOR: LISA WEST EXP COSIGNER: URGENCY: STATUS: COMPLETED PHARMACY MEDICATION HISTORY NOTE Medication & allergy history was compiled by [facility] to assist providers ordering inpatient medicatio ns. Essential medication list includes active local & remote VA prescriptions, non-VA medica tions, recently & discontinued prescriptions, pending & clinic medication order s. With the exception of allergies, if a category is not listed below, there were no relevant medications for the patient. [facility] to complete medication reconciliation. Seasonal Influenza Immunization: 06/18/2021 MIN [facility] NON-INTERVIEW Patient has NOT BEEN INTERVIEWED by pharmacy reg néstor outpatient medication use prior to admit. Reason for Non-Interview: Observation patient Allergies: FACILITY ALLERGY/ADR -------- No Remote Allergy/ADR Data available for this pa meryl [facility] LISINOPAUL FAY [phone] Source of Info: [facility] Drug Last Refills Qty Filled Remaining ---- --- ------ --------- ALBUTEROL 90MCG (CFC-F) 200D ORAL INHL 2 022 (10) 2 PUFFS QID PRN FOR SHORTNESS OF BREATH APIXABAN 5MG TAB 180 09/28/2021 (1) ONE Q12H TO PREVENT BLOOD CLOTS, STROKE ATORVASTATIN CALCIUM 80MG TAB 45 09/01/2021 (3) ONE-HALF QHS FOR CHOLESTEROL EMPAGLIFLOZIN 25MG TAB 60 08/30/2021 (3) ONE QDAY FUROSEMIDE 40MG TAB 90 09/22/2021 (2) ONE QDAY GABAPENTIN 300MG CAP 360 10/25/2021 (2) TWO TID FOR LEG PAIN GLIPIZIDE 10MG TAB 360 09/09/2021 (2) TWO BID FOR DIABETES METFORMIN HCL 1000MG TAB 180 10/11/2021 (2) ONE TWO TIMES A DAY FOR DIABETES METOPROLOL SUCCINATE 200MG SA TAB 45 11/08/2021 (2) ONE-HALF QDAY FOR HEART OLODATEROL/TIOTROP 2.5MCG/ACTUAT 60D I 1 022 (10) 2 PUFFS QDAY TO PREVENT TROUBLE BREATHING SACUBITRIL 24MG/VALSARTAN 26MG TAB 120 1 (2) 1 BID FOR HEART FAILURE SEMAGLUTIDE 1MG/0.75ML INJ PEN 3ML 1 10/02/2021 (0) INJECT 1MG SQ EVERY WEEK FOR DIABETES VITAMIN B COMPLEX CAP 100 11/23/2021 (2) 1 QDAY FOR NUTRITION The following prescriptions have expir ed NITROGLYCERIN 0.4MG SL TAB 100 11/16/2020 (3) DISSOLVE ONE UNDER THE TONGUE ONCE FOR CHEST PA IN : 11/16/2021 The following are Non-VA medica tions MARINE LIPID (FISH OIL) CAP,ORAL Statement/Explanation/Comment: 1 a day ASCORBIC ACID 500MG TAB 1000MG EVERY DAY Statement/Explanation/Comment: 1 at night NON VA MED NOT LISTED MISCELLANEOUS CATS CLAW Statement/Explanation/Comment: 2 at night MULTIVITAMINS CAP/TAB Statement/Explanation/Comment: 1 at night PENDING ORDERS Drug: CEPHALEXIN 500MG CAP Eff. Date: [id number]: 6 Refills: 0 Prov: CHERRY NAJERA Sig: TAKE ONE CAPSULE BY MOUTH TWICE A DAY FOR 3 DAYS Written today by EP cardiology //////////////////////////////////////////////// ////////////////////////// Consider the following inpatient medications whe n reviewing list above to complete medication reconciliation: Active Inpatient Medications (including Supplies ): Active Inpatient Medications Status 1) DEXTROSE 50% WATER (INPT) INJ,SOLN 25-50ML IV PRN ACTIVE Instructions too long. See order details for fu ll text. 2) GLUCAGON (INPT) INJ 1MG/1VIAL IM PRN Instruct ions ACTIVE too long. See order details for full text. 3) GLUCOSE SOLN (INPT) LIQUID 36ML-67.5ML PO PRN ACTIVE Instructions too long. See order details for fu ll text. 4) GLUCOSE TAB,CHEWABLE 20-32GM PO PRN Instructi ons too ACTIVE long. See order details for full text. Pending Inpatient Medications Status 1) ALBUTEROL INHL,ORAL 2 PUFFS INHL QID PRN PEND ING 2) ATORVASTATIN TAB 40MG PO QHS PENDING 3) EMPAGLIFLOZIN TAB,ORAL 25MG PO QDAY PENDING 4) GABAPENTIN CAP,ORAL 600MG PO TID PENDING 5) GLIPIZIDE TAB 20MG PO BID PENDING 6) INFLUENZA INJ 0.5 ML IM ONCE PENDING 7) INSULIN ASPART (HUMAN) INJ LOW DOSE MEALTIME PENDING CORRECTION SQ DTID 8) INSULIN ASPART (HUMAN) INJ LOW DOSE QHS CORRE CTION PENDING SQ QHS 9) METOPROLOL SUCCINATE TAB,SA 100MG PO QDAY PEN DING 10) OLODATEROL/TIOTROPIUM INHL,ORAL 2 PUFFS INHL QDAY PENDING 11) SACUBITRIL/VALSARTAN TAB 1 TABLET PO BID PEN DING 12) SALINE FLUSH INJ 10ML IV Q8H PENDING 13) VITAMIN B COMPLEX CAP,ORAL 1 CAPSULE PO QDAY PENDING 17 Total Medications /es/ Maricruz GonzalezD, BCPS Pharmacist Signed: 11/29/2021 20:11 Receipt Acknowledged By: 11/29/2021 20:12 /es/ Angie Sims MD Resident Physician
--- OUTSIDE RECORDS SUMMARY | 2022-04-02 16:08 | XMS_ITS | Encounter Summary ---
:[address] [facility] Address [address] [place] [id number] Care Team Providers Name Role Phone CROUCH [...] MEDICARE MEDICARE PART Jun 25, PART B [id number] Saumya QUINONES PATIENT (WNR) (M) B 2011 78A 0 AVID MEDICARE MEDICARE PART Sep 25, PART A [id number] Saumya QUINONES PATIENT (WNR) (M) A 2009 78A 0 AVID MEDICARE MEDICARE PART Sep 25, PART A [id number] Saumya MICHELE (WNR) (M) A 2009 [id number] [id number] AVID MEDICARE MEDICARE PART Sep 25, PART B [id number] Saumya MICHELE (WNR) (M) B 2009 [id number] [phone] AVID Selected Encounter This section includes the information on record at [place] for the Encounter. Date/Time Encounter Type Encounter Reason Provider Source Description Apr 02, 2021 REM INTERROG TELEPHONE/MEDICIN ICD-10-CM Z95.810 GRACIE SALMON 01:13 PM EVL PM/IDS E [facility] automatic (implantable) cardiac defibrillator with Provider Comments: [facility] of automatic (implantable) cardiac defibrillator IHE Encounter Template Text not used by [place] Assessments - Encounter Diagnoses This section includes the primary and secondary diagnoses documented for the Encounter. Date/Time Primary/Secondary Diagnosis Name Provider Source Diagnosis Apr 02, 2021 PRIMARY [facility] GARETH GUZMÁN 01:13 PM automatic M [facility] (implantable) cardiac defibrillator Plan of Treatment: Future Appointments (+ 6 months) and Future Tests (+/- 45 days) The Plan of Treatment section includes future care activities for the patient from all [place] [facility]. This section includes future appointments and [...] 18, 2021 01:30 PM AMBULATORY - MEDICINE [facility] Jun 20, 2021 10:00 AM AMBULATORY - MEDICINE [facility] Jul 11, 2021 01:00 PM AMBULATORY - NONE [facility] Jul 26, 2021 09:00 AM AMBULATORY - MEDICINE [facility] Jul 26, 2021 10:30 AM AMBULATORY - NONE [facility] Aug 03, 2021 10:46 AM AM[facility]ULATORY - MEDICINE [facility] Aug 08, 2021 07:00 AM AMBULATORY - NONE [facility] Aug 10, 2021 10:30 AM AMBULATORY - NONE [facility] Sep 14, 2021 09:00 AM AMBULATORY - NONE [facility] Sep 21, 2021 09:45 AM AMBULATORY - MEDICINE [facility] Sep 21, 2021 10:00 AM AMBULATORY - MEDICINE [facility] Sep 21, 2021 10:30 AM AMBULATORY - MEDICINE [facility] Sep 21, 2021 11:00 AM AMBULATORY - MEDICINE [facility] Sep 21, 2021 11:30 AM AMBULATORY - MEDICINE [facility] Lab Results: +/- 30 days [...] Mar 23, 2021 09:33 AM Reporting Lab[facility] [id number] Performing Lab: [facility] [address] POTASSIUM 4.6 mmol/L 3.5-5.1 Mar 23, 2021 06:48 [facility] BASIC METABOLIC Specimen Type: PLASMA AM PANEL+MG Comment: Cancel lation Called to: Dora Mae MSA 03/23/2021 @ 0930 by AEK. 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 Ordering Provid er: RODO PINTO Report Released Date/Time: Mar 22, 2021 10:19 AM Reporting Lab: [facility] [address] [facility] [phone] Performing Lab: [facility] [address] CREATININE 1.3 mg/dL H 0.7-1.2 UREA NITROGEN [...] [facility] [address] [facility] [address] Performing Lab: [facility] [address] MAGNESIUM 2.2 mg/dL 1.6-2.6 Mar 23, 2021 06:13 [facility] FINGERSTICK GLUCOSE Speci men Type: BLOOD AM Comment: Save R esult Nurse Notified Ordering Provid er: GRANTCARD II Report Released Date/Time: Mar 23, 2021 07:07 AM Reporting Lab: [facility] [address] [facility] [address] Performing Lab: [facility] [address] [facility] [address] FINGERSTICK GLUCOSE 168 mg/dL H 70-100 Mar 22, 2021 08:30 [facility] FINGERSTICK GLUCOSE Speci men Type: BLOOD PM Comment: VENOUS SAMPLE Ordering Provid er: DARLYN BURNS II Report Released Date/Time: Mar 23, 2021 08:23 AM Reporting Lab: [facility] [address] [facility] [address] Performing Lab: [facility] [address] [facility] [address] FINGERSTICK GLUCOSE 240 mg/dL H 70-100 Mar 22, 2021 04:28 [facility] FINGERSTICK GLUCOSE Speci men Type: BLOOD PM Comment: [place] Nurse Notified Ordering Provid er: GRANTCARD II Report Released Date/Time: Mar 22, 2021 04:42 PM Reporting Lab: [facility] [address] [facility] [address] Performing Lab: [facility] [address] [facility] [address] FINGERSTICK GLUCOSE 197 mg/dL H 70-100 Mar 22, 2021 11:28 [facility] FINGERSTICK GLUCOSE Speci men Type: BLOOD AM Comment: [place] Nurse Notified Ordering Provid er: GRANTCARD II Report Released Date/Time: Mar 22, 2021 12:14 PM Reporting Lab: [facility] [address] [facility] [address] Performing Lab: [facility] [address] [facility] [address] FINGERSTICK GLUCOSE 225 mg/dL H 70-100 Mar 22, 2021 06:13 [facility] FINGERSTICK GLUCOSE Speci men Type: BLOOD AM Comment: [place] Nurse Notified Ordering Provid er: GRANTCARD II Report Released Date/Time: Mar 22, 2021 12:13 PM Reporting Lab: [facility] [address] [facility] [address] Performing Lab: [facility] [address] [facility] [address] FINGERSTICK GLUCOSE 155 mg/dL H 70-100 Mar 21, 2021 07:36 [facility] FINGERSTICK GLUCOSE Speci men Type: BLOOD PM Comment: [place] Nurse Notified Ordering Provid er: DARLYN BURNS II Report Released Date/Time: Mar 21, 2021 08:53 PM Reporting Lab: [facility] [address] [facility] [address] Performing Lab: [facility] [address] [facility] [address] FINGERSTICK GLUCOSE 214 mg/dL H 70-100 Mar 21, 2021 04:00 [facility] FINGERSTICK GLUCOSE Speci men Type: BLOOD PM Comment: [place] Nurse Notified Ordering Provid er: DARLYN BURNS II Report Released Date/Time: Mar 21, 2021 04:27 PM Reporting Lab: [facility] [address] [facility] [address] Performing Lab: [facility] [address] [facility] [address] FINGERSTICK GLUCOSE 252 mg/dL H 70-100 Mar 21, 2021 11:43 [facility] FINGERSTICK GLUCOSE Speci men Type: BLOOD AM Comment: [place] Nurse Notified Ordering Provid er: DARLYN BURNS II Report Released Date/Time: Mar 21, 2021 12:08 PM Reporting Lab: [facility] [address] [facility] [address] Performing Lab: [facility] [address] [facility] [address] FINGERSTICK GLUCOSE 227 mg/dL H 70-100 Mar 21, 2021 06:45 AM [facility] ALBUMIN Specim en Type: PLASMA No comment enter ed. Ordering Provid er: LISBET [place] V Report Released Date/Time: Mar 20, 2021 10:27 AM Reporting Lab: [facility] [address] [facility] [address] Performing Lab: [facility] [address] [facility] [address] ALBUMIN 3.5 g/dL 3.5-5.2 Mar 21, 2021 06:45 [facility] BASIC METABOLIC Specimen Type: PLASMA AM PANEL+MG No comment enter ed. Ordering Provid er: RODO PINTO Report Released Date/Time: Mar 20, 2021 02:43 PM Reporting Lab: [facility] [address] [facility] [address] Performing Lab: [facility] [address] [facility] [address] CREATININE 1.5 mg/dL H 0.7-1.2 UREA NITROGEN [...] 07:23 AM Reporting Lab: [facility] [address] [facility] [address] Performing Lab: [facility] [address] [facility] [address] FINGERSTICK GLUCOSE 159 mg/dL H 70-100 Mar 20, 2021 08:27 [facility] FINGERSTICK GLUCOSE Speci men Type: BLOOD PM Comment: [place] Nurse Notified Ordering Provid er: TEAM,CARD II Report Released Date/Time: Mar 20, 2021 10:52 PM Reporting Lab: [facility] [address] [facility] [address] Performing Lab: [facility] [address] [facility] [address] FINGERSTICK GLUCOSE 224 mg/dL H 70-100 Mar 20, 2021 05:06 [facility] FINGERSTICK GLUCOSE Speci men Type: BLOOD PM Comment: [place] Nurse Notified Ordering Provid er: TEAM,CARD II Report Released Date/Time: Mar 20, 2021 05:27 PM Reporting Lab: [facility] [address] [facility] [address] Performing Lab: [facility] [address] [facility] [address] FINGERSTICK GLUCOSE 183 mg/dL H 70-100 Mar 20, 2021 08:16 [facility] BASIC METABOLIC Specimen Type: PLASMA AM PANEL+MG No comment enter ed. Ordering Provid er: TUCKER JULIAN Report Released Date/Time: Mar 15, 2021 02:20 PM Reporting Lab: [facility] [address] [facility] [address] Performing Lab: [facility] [address] CREATININE 1.6 mg/dL H 0.7-1.2 UREA NITROGEN [...] 2021 02:20 PM Reporting Lab: [facility] [address] Performing Lab: [facility] [address] COVID-19 (CEPHEID) Not Detected Not Dete cted Mar 05, 2021 09:42 [facility] BASIC METABOLIC Specimen Type: PLASMA AM PANEL+MG No comment enter ed. Ordering Provid er: VICENTE PELAEZ Report Released Date/Time: Feb 19, 2021 01:50 PM Reporting Lab: [facility] [address] Performing Lab: [facility] [address] CREATININE 1.4 mg/dL H 0.7-1.2 UREA NITROGEN [...] ADVANCE DIRECTIVE GANESH RODRIGUEZ [facility]
--- OUTSIDE RECORDS SUMMARY | 2022-04-02 16:08 | XMS_ITS | Encounter Summary ---
:1945 Author Organization [facility] Address [address] [place], [place] [address] Support Name Relationship Address Phone NIDIA MICHELE Unavailable [address] [phone] KENY [place]ERS [phone] NIDIA MICHELE Unavailable [address] [place] [phone] Insurance Providers: All historical and current Section [...] MEDICARE MEDICARE PART Jun 25, PART B [id number] Saumya QUINONES PATIENT (WNR) (M) B 2011 78A 0 AVID MEDICARE MEDICARE PART Sep 25, PART A [id number] Saumya QUINONES PATIENT (WNR) (M) A 2009 78A 0 AVID MEDICARE MEDICARE PART Sep 25, PART A [id number] Saumya MICHELE (WNR) (M) A 2009 78A [id number] AVID MEDICARE MEDICARE PART Sep 25, PART B [id number] Saumya MICHELE (WNR) (M) B 2009 78A [id number] AVID Selected Encounter This section includes the information on record at [place] for the Encounter. Date/Time Encounter Type Encounter Description Reason Provider Source Nov 19, 2021 05:45 Outpatient Encounter EVENT (HISTORICAL) AM IHE Encounter [...] 20 appointments. The data comes from all [facility]. Appointment Date/Time Appointment Type Appointment Facili ty Name Nov 21, 2021 10:00 AM AMBULATORY - SURGERY [facility] Nov 29, 2021 06:30 AM AMBULATORY - NONE [facility] Nov 29, 2021 07:30 AM AMBULATORY - MEDICINE [facility] Nov 29, 2021 08:00 AM AMBULATORY - MEDICINE [facility] Dec 21, 2021 09:30 AM AMBULATORY - NONE [facility] January 07, 2022 01:30 PM AMBULATORY - MEDICINE [facility] Feb 05, 2022 07:00 AM AMBULATORY - NONE [facility] Feb 07, 2022 09:30 AM AMBULATORY - NONE [facility] Feb 13, 2022 10:00 AM AMBULATORY - [facility] Mar 21, 2022 09:30 AM AMBULATORY [facility] Active, Pending, and Scheduled Orders This section includes a listing of several types of active, pending, and scheduled orders, including clinic medications orders, diagnostic test orders, procedure orders and consult orders; where the start date of the order is 45 days before the date of the Encounter or 45 days after the date of the Encounter. The data comes from all [facility]. Test Date/Time Test Type Test Details Facility Name Nov 29, 2021 06:30 AM Laboratory - Blood Bank TYPE & SCREEN - LA B [facility] Order BLOOD SP Dec 15, 2021 12:00 AM Laboratory - Chemistry BASIC METABOLIC MIN [facility] Order PANEL+MG PLASMA SP Lab Results: +/- 30 days of the encounter This section includes the Chemistry and Hematology Lab Results on record with [place] for the patient. Radiology Reports and Pathology Reports are provided separately, in subsequent sections.Lab Results This section contains the Chemistry/Hematology Results that were resulted 30 days before or 30 daysafter the date of the Encounter. Date/Time Source Result Type Result - Unit Interpretation Reference Range Comment Nov 30, 2021 11:26 [facility] F[facility]ICK GLUCOSE Speci men Type: BLOOD AM Comment: Abram R pranav Nurse Notified Ordering Provid er: TEAM,CARDS TWO Report Released Date/Time: Nov 30, 2021 11:46 AM Reporting Lab: [facility] [address] [facility] [address] Performing Lab: [facility] [address] [facility] [address] FINGERSTICK GLUCOSE 284 H 70-100 Nov 30, 2021 09:47 AM [facility] ALBUMIN Specim en Type: PLASMA No comment enter ed. Ordering Provid er: ELIUD DINERO Report Released Date/Time: Nov 29, 2021 07:53 PM Reporting Lab: [facility] [address] [facility] [address] Performing Lab: [facility] [address] [facility] [address] ALBUMIN 3.4 L 3.5-5.2 Nov 30, 2021 09:47 [facility] BASIC METABOLIC Specimen Type: PLASMA AM PANEL+MG No comment enter ed. Ordering Provid er: ANGIE MALHOTRA Report Released Date/Time: Nov 29, 2021 08:12 PM Reporting Lab: [facility] [address] Performing Lab: [facility] [address] CREATININE 1.2 0.7-1.2 UREA NITROGEN 18 8-26 GLUCOSE 342 H 74-100 SODIUM 141 136-145 POTASSIUM 4.3 3.5-5.1 CHLORIDE 108 H 98-107 CO2 26 22-29 CALCIUM 8.6 8.4-10.2 MAGNESIUM 1.5 L 1.6-2.6 ANION GAP 7 5-15 CREAT EGFR(CKD-EPI) 63 >60 Nov 30, 2021 09:46 AM [facility] CBC Specim en Type: BLOOD No comment enter ed. Ordering Provid er: ANGIE MALHOTRA Report Released Date/Time: Nov 29, 2021 08:12 PM Reporting Lab: [facility] [address] [facility] [address] Performing Lab: [facility] [address] [facility] [address] WBC 10.61 4.0-11.0 RBC 4.33 L 4.6-6.2 HGB 14.6 13.5-17.9 HCT 45.2 41-54 MCV 104.4 H 80-100 MCH 33.7 H 27-33 MCHC 32.3 32.0-37.5 PLT 71 L 150-400 MPV 13.9 H 7.4-10.4 RDW 14.7 H 11.5-14.5 IPF 17.8 H 0-10 Nov 30, 2021 06:09 [facility] F[place]ICK GLUCOSE Speci men Type: BLOOD AM Comment: Abram rock Nurse Notified Ordering Provid er: IRENE BURNS Report Released Date/Time: Nov 30, 2021 06:32 AM Reporting Lab: [facility] [address] [place] [facility] [address] Performing Lab: [facility] [address] [facility] [facility] [address] [place] GLUCOSE 165 H 70-100 Nov 29, 2021 07:35 [facility] F[place] GLUCOSE Speci men Type: BLOOD PM Comment: [place]am rock Nurse Notified Ordering Provid er: IRENE BURNS TWO Report Released Date/Time: Nov 29, 2021 07:48 PM Reporting Lab: [facility] [address] [place] [facility] [address] Performing Lab: [facility] [address] [place] [facility] [address] [place] GLUCOSE 160 H 70-100 Nov 29, 2021 06:52 [facility] F[place] GLUCOSE Speci men Type: BLOOD PM Comment: Abram rock Nurse Notified Ordering Provid er: SAKSHI CROUCH Report Released Date/Time: Nov 29, 2021 07:04 PM Reporting Lab: [facility] [address] [facility] [address] Performing Lab: [facility] [address] [facility] [facility] [address] [place] GLUCOSE 161 H 70-100 Nov 29, 2021 04:18 [facility] F[place]ICK GLUCOSE Speci men Type: BLOOD PM No comment enter ed. Ordering Provid er: IRENE BURNS Report Released Date/Time: Nov 29, 2021 08:08 PM Reporting Lab: [facility] [address] [facility] [facility] [address] Performing Lab: [facility] [address] [facility] [address] [place]ICK GLUCOSE 179 H 70-100 Nov 29, 2021 03:26 [facility] POC ABG/ELECTROLYTES Spec imen Type: ARTERIAL BLOOD PM Comment: Sample Type = ARTERIAL Ordering Provid er: IRENE BURNS Report Released Date/Time: Nov 29, 2021 07:53 PM Reporting Lab: [facility] [address] [facility] [facility] [address] Performing Lab: [facility] [address] [facility] [facility] [address] POC PH 7.321 L 7.35-7.45 POC PCO2 46.0 H 35.00-45.00 POC PO2 103 80.0-105.0 POC TCO2 25 23.0-27.0 POC HCO3 23.8 22.0-26.0 POC BE ECT -2 -2 POC SO2 97 95-98 POC SODIUM 145 138.0-146.0 POC POTASSIUM 3.5 3.50-5.00 POC HGB 16.0 12.00-17.00 POC HCT 47 38.0-51.0 POC IONIZED CALCIUM 4.2 L 4.50-5.30 Nov 29, 2021 03:24 [facility] F[place]ICK GLUCOSE Speci men Type: BLOOD PM Comment: Save R esult Ordering Provid er: TEAM,CARDS TWO Report Released Date/Time: Nov 29, 2021 08:08 PM Reporting Lab: [facility] [address] Performing Lab: [facility] [address] [place] GLUCOSE 188 H 70-100 Nov 29, 2021 02:06 [facility] POC ABG/ELECTROLYTES Spec imen Type: ARTERIAL BLOOD PM Comment: Sample Type = ARTERIAL Ordering Provid er: TEAM,CARDS TWO Report Released Date/Time: Nov 29, 2021 07:53 PM Reporting Lab: [facility] [address] Performing Lab: [facility] [address] POC PH 7.313 L 7.35-7.45 POC PCO2 48.4 H 35.00-45.00 POC PO2 93 80.0-105.0 POC TCO2 26 23.0-27.0 POC HCO3 24.5 22.0-26.0 POC BE ECT -2 -2 POC SO2 96 95-98 POC SODIUM 144 138.0-146.0 POC POTASSIUM 3.5 3.50-5.00 POC HGB 16.3 12.00-17.00 POC HCT 48 38.0-51.0 POC IONIZED CALCIUM 4.3 L 4.50-5.30 Nov 29, 2021 02:04 [facility] FINGERSTICK GLUCOSE Speci men Type: BLOOD PM Comment: Save R esult Ordering Provid er: TEAM,CARDS TWO Report Released Date/Time: Nov 29, 2021 08:08 PM Reporting Lab: [facility] [address] [facility] [address] Performing Lab: [facility] [address] [facility] [address] [place]ICK GLUCOSE 236 H 70-100 Nov 29, 2021 01:52 PM [facility] POC ACT Specim en Type: BLOOD No comment enter ed. Ordering Provid er: IRENE BURNS Report Released Date/Time: Dec 03, 2021 01:31 PM Reporting Lab: [facility] [address] [facility] [address] Performing Lab: [facility] [address] [facility] [address] POC ACT 135 84-139 Nov 29, 2021 01:16 PM [facility] POC ACT Specim en Type: BLOOD No comment enter ed. Ordering Provid er: IRENE BURNS Report Released Date/Time: Dec 03, 2021 01:30 PM Reporting Lab: [facility] [address] [facility] [address] Performing Lab: [facility] [address] [facility] [address] POC ACT 355 84-139 Nov 29, 2021 12:49 PM [facility] POC ACT Specim en Type: BLOOD No comment enter ed. Ordering Provid er: IRENE BURNS Report Released Date/Time: Dec 03, 2021 01:30 PM Reporting Lab: [facility] [address] [facility] [address] Performing Lab: [facility] [address] [facility] [address] POC ACT 367 84-139 Nov 29, 2021 12:48 [facility] POC ABG/ELECTROLYTES Spec imen Type: ARTERIAL BLOOD PM Comment: Sample Type = ARTERIAL Ordering Provid er: IRENE BURNS Report Released Date/Time: Nov 29, 2021 07:53 PM Reporting Lab: [facility] [address] [facility] [address] Performing Lab: [facility] [address] [facility] [address] POC PH 7.289 L 7.35-7.45 POC PCO2 52.6 H 35.00-45.00 POC PO2 86 80.0-105.0 POC TCO2 27 23.0-27.0 POC HCO3 25.2 22.0-26.0 POC BE ECT -1 -2 POC SO2 95 95-98 POC SODIUM 145 138.0-146.0 POC POTASSIUM 3.2 L 3.50-5.00 POC HGB 16.7 12.00-17.00 POC HCT 49 38.0-51.0 POC IONIZED CALCIUM 4.7 4.50-5.30 Nov 29, 2021 12:45 [facility] FINGERSTICK GLUCOSE Speci men Type: BLOOD PM Comment: Save R esult Ordering Provid er: IRENE BURNS Report Released Date/Time: Nov 29, 2021 08:08 PM Reporting Lab: [facility] [address] [facility] [address] Performing Lab: [facility] [address] [facility] [facility] [address] FING[place]ICK GLUCOSE 186 H 70-100 Nov 29, 2021 12:26 PM [facility] POC ACT Specim en Type: BLOOD No comment enter ed. Ordering Provid er: IRENE BURNS Report Released Date/Time: Dec 03, 2021 01:30 PM Reporting Lab: [facility] [address] [facility] [facility] [address] Performing Lab: [facility] [address] [facility] [facility] [address] POC ACT 367 84-139 Nov 29, 2021 11:58 AM [facility] POC ACT Specim en Type: BLOOD No comment enter ed. Ordering Provid er: IRENE BURNS TWO Report Released Date/Time: Dec 03, 2021 01:30 PM Reporting Lab: [facility] [address] [facility] [facility] [address] Performing Lab: [facility] [address] [facility] [address] POC ACT 338 84-139 Nov 29, 2021 11:53 [facility] FINGERSTICK GLUCOSE Speci men Type: BLOOD AM Comment: Save R esult Ordering Provid er: IRENE BURNS TWO Report Released Date/Time: Nov 29, 2021 08:08 PM Reporting Lab: [facility] [address] [facility] [address] Performing Lab: [facility] [address] [facility] [address] FINGERSTICK GLUCOSE 225 H 70-100 Nov 29, 2021 11:30 AM [facility] POC ACT Specim en Type: BLOOD No comment enter ed. Ordering Provid er: IRENE BURNS TWO Report Released Date/Time: Dec 03, 2021 01:30 PM Reporting Lab: [facility] [address] [facility] [facility] [address] Performing Lab: [facility] [address] [facility] [address] POC ACT 355 84-139 Nov 29, 2021 11:26 [facility] POC ABG/ELECTROLYTES Spec imen Type: ARTERIAL BLOOD AM Comment: Sample Type = ARTERIAL Ordering Provid er: IRENE BURNS Report Released Date/Time: Nov 29, 2021 07:53 PM Reporting Lab: [facility] [address] [facility] [address] Performing Lab: [facility] [address] [address] [facility] [address] POC PH 7.317 L 7.35-7.45 POC PCO2 52.3 H 35.00-45.00 POC PO2 81 80.0-105.0 POC TCO2 28 H 23.0-27.0 POC HCO3 26.8 H 22.0-26.0 POC BE ECT 1 -2 POC SO2 94 L 95-98 POC SODIUM 143 138.0-146.0 POC POTASSIUM 3.5 3.50-5.00 POC HGB 17.3 H 12.00-17.00 POC HCT 51 38.0-51.0 POC IONIZED CALCIUM 4.8 4.50-5.30 Nov 29, 2021 11:06 [facility] FINGERSTICK GLUCOSE Speci men Type: BLOOD AM No comment enter ed. Ordering Provid er: IRENE BURNS TWO Report Released Date/Time: Nov 29, 2021 08:08 PM Reporting Lab: [facility] [address] [facility] [address] Performing Lab: [facility] [address] FINGERSTICK GLUCOSE 221 H 70-100 Nov 29, 2021 11:02 AM [facility] POC ACT Specim en Type: BLOOD No comment enter ed. Ordering Provid er: IRENE BURNS TWO Report Released Date/Time: Dec 03, 2021 01:30 PM Reporting Lab: [facility] [address] [facility] [address] Performing Lab: [facility] [address] POC ACT 294 84-139 Nov 29, 2021 10:26 AM [facility] POC ACT Specim en Type: BLOOD No comment enter ed. Ordering Provid er: IRENE BURNS TWO Report Released Date/Time: Dec 03, 2021 01:30 PM Reporting Lab: [facility] [address] [facility] [address] Performing Lab: [facility] [address] [place] [facility] [address] POC ACT 329 84-139 Nov 29, 2021 10:06 AM [facility] POC ACT Specim en Type: BLOOD No comment enter ed. Ordering Provid er: IRENE BURNS Report Released Date/Time: Dec 03, 2021 01:30 PM Reporting Lab: [facility] [address] [facility] [address] Performing Lab: [facility] [address] [facility] [address] POC ACT 312 84-139 Nov 29, 2021 09:58 [facility] POC ABG/ELECTROLYTES Spec imen Type: ARTERIAL BLOOD AM Comment: Sample Type = ARTERIAL Ordering Provid er: IRENE BURNS Report Released Date/Time: Nov 29, 2021 07:53 PM Reporting Lab: [facility] [address] [address] [facility] [address] Performing Lab: [facility] [address] POC PH 7.334 L 7.35-7.45 POC PCO2 48.7 H 35.00-45.00 POC PO2 96 80.0-105.0 POC TCO2 27 23.0-27.0 POC HCO3 25.9 22.0-26.0 POC BE ECT 0 -2 POC SO2 97 95-98 POC SODIUM 143 138.0-146.0 POC POTASSIUM 4.1 3.50-5.00 POC HGB 17.3 H 12.00-17.00 POC HCT 51 38.0-51.0 POC IONIZED CALCIUM 4.9 4.50-5.30 Nov 29, 2021 09:56 [facility] FINGERSTICK GLUCOSE Speci men Type: BLOOD AM No comment enter ed. Ordering Provid er: IRENE BURNS TWO Report Released Date/Time: Nov 29, 2021 08:08 PM Reporting Lab: [facility] [address] [place] [facility] [address] Performing Lab: [facility] [address] [facility] [address] FING[place]ICK GLUCOSE 194 H 70-100 Nov 29, 2021 09:45 AM [facility] POC ACT Specim en Type: BLOOD No comment enter ed. Ordering Provid er: IRENE BURNS TWO Report Released Date/Time: Dec 03, 2021 01:30 PM Reporting Lab: [facility] [address] [facility] [address] Performing Lab: [facility] [address] [place] [facility] [address] POC ACT 269 84-139 Nov 29, 2021 08:59 AM [facility] POC ACT Specim en Type: BLOOD No comment enter ed. Ordering Provid er: IRENE BURNS TWO Report Released Date/Time: Dec 03, 2021 01:30 PM Reporting Lab: [facility] [address] [facility] [address] Performing Lab: [facility] [address] [facility] [address] POC ACT 135 84-139 Nov 29, 2021 [facility] COVID-19 AND FLU/RSV Specime n Type: NASOPHARYNGEAL 07:05 AM DIAG PANEL(CEPHEID) Comment: Ce pheid GeneXpert (618) Ordering Provid er: KATHERINE FIGUEROA Report Released Date/Time: Oct 29, 2021 12:22 PM Reporting Lab: [facility] [address] [facility]forming [facility]: [facility] [address] COVID-19 (CEPHEID) Not Detected Not Dete cted INFLUENZA A (PCR) Not Detected Not Detec susanne INFLUENZA B (PCR) Not Detected Not Detec susanne RSV (PCR) Not Detected Not Detected Nov 29, 2021 [facility] PROTHROMBIN Specimen Typ e: PLASMA 06:38 AM TIME/INR No comment enter ed. Ordering Provid er: KATHERINE FIGUEROA Report Released Date/Time: Oct 29, 2021 12:22 PM Reporting Lab: [facility] [address] [facility] [address] Performing Lab: [facility] [address] [facility] [address] .INR 1.1 0.8-1.1 .PT 13.1 H 9.4-12.5 Nov 29, 2021 [facility] ACT PART Specimen Typ e: PLASMA 06:38 AM THROMBO TIME No comment enter ed. Ordering Provid er: KATHERINE FIGUEROA Report Released Date/Time: Oct 29, 2021 12:22 PM Reporting Lab: [facility] [address] Performing Lab: [facility] [address] [facility] [address] APTT 33.3 25.1-36.5 Nov 29, 2021 [facility] BASIC METABOLIC Specimen Typ e: PLASMA 06:38 AM PANEL+MG No comment enter ed. Ordering Provid er: KATHERINE FIGUEROA Report Released Date/Time: Oct 29, 2021 12:22 PM Reporting Lab: [facility] [address] Performing Lab: [facility] [address] CREATININE 1.4 H 0.7-1.2 UREA NITROGEN 23 8-26 GLUCOSE 201 H 74-100 SODIUM 143 136-145 POTASSIUM 4.3 3.5-5.1 CHLORIDE 108 H 98-107 CO2 28 22-29 CALCIUM 9.9 8.4-10.2 MAGNESIUM 1.9 1.6-2.6 ANION GAP 7 5-15 CREAT EGFR(CKD-EPI) 53 L >60 Nov 29, 2021 06:38 [facility] CBC Specimen Type: BLOOD AM No comment enter ed. Ordering Provid er: KATHERINE FIGUEROA Report Released Date/Time: Oct 29, 2021 12:22 PM Reporting Lab: [facility] [address] Performing Lab: [facility] [address] WBC 7.40 4.0-11.0 RBC 5.17 4.6-6.2 HGB [...] ALL of a patient's completed or amended [place] Advance and Rescinded Directives. The entries below indicate that a directive exists for the patient, but an actual copy is not included with this document. The data comes from all [place] facilities. Date Advance Directives Provider Source Mar 06, 2005 ADVANCE DIRECTIVE GANESH RODRIGUEZ [facility] Radiology Reports: +/- 30 days of [...] the Encounter. The data comes from all [place] treatment facilities. Date/Time Radiology Report Provider Source Nov 30, 2021 07:05 AM CHEST 2 VIEWS PA AND LAT: MONET LUDWIG [facility] [place] [id number] -[birth year] M Exm Date: NOV 30, 2021@07:05 Req Phys: CHERRY MENDOZA Loc: 3LSOB/ 2@08:05 Img Loc: MAIN X-RAY Service: zzcard sect (Case [id number] COMPLETE) CHEST 2 VIEWS PA AND LAT (R AD Detailed) CPT:86193 Reason for Study: s/p upgrade ICD adding [...] pager listed below: User placing orders pager: [phone] LAST CREATININE 1.4 H (11/29/21) Report Status: Verified Date Reported: NOV 30, 2021 Date Verified: NOV 30, 2021 Boot Maker E-Sig:/ES/MONET LUDWIG MD, FACR, C CD Report: [...] 06:25 PM CHEST 1 VIEW: MAGDALENE DAVIDSON [facility] [place] [id number] -[birth year], [birth year] 9 M Exm Date: NOV 29, 2021@18:25 Req Phys: REJICHERRY Pat Loc: [facility] [address] [facility] (Req'g Loc) Img Loc: MAIN X-RAY Service: Unknown (Case [id number] COMPLETE) CHEST 1 VIEW (RAD Detailed) CPT:18116 Reason for Study: s/p upgrade ICD adding an A l ead Clinical History: Immediate Post-Op Pacemaker/ICD placement [place] IS NOT under investigation for COVID-19 or is COVID-19 negative s/p upgrade his ICD to dual chamber (adding an A lead) Responsible provider name and phone number to n otify for critical findings if other than user placing the order a nd pager listed below: User placing orders pager: [phone] LAST CREATININE 1.4 H (11/29/21) Report Status: Verified Date Reported: NOV 29, 2021 Date Verified: NOV 29, 2021 Boot Maker E-Sig:/ES/MAGDALENE DAVIDSON MD Report: DATE/TIME REGISTERED: 11/29/2021 [...] Primary Interpreting Staff: MAGDALENE DAVIDSON MD, RADIOLOGIST (Boot Maker) /LUAN
--- OUTSIDE RECORDS SUMMARY | 2022-04-02 16:08 | XMS_ITS | Encounter Summary ---
:1945 Author Organization [facility] Address [address] [place], [place] [id number] Care Team Providers Name Role Phone WILLA [...] MEDICARE MEDICARE PART Jun 25, PART B [id number] Saumya QUINONES PATIENT (WNR) (M) B 2011 78A 0 AVID MEDICARE MEDICARE PART Sep 25, PART A [id number] Saumya QUINONES PATIENT (WNR) (M) A 2009 78A 0 AVID MEDICARE MEDICARE PART Sep 25, PART A [id number] Saumya MICHELE (WNR) (M) A 2009 78A [phone] AVID MEDICARE MEDICARE PART Sep 25, PART B [id number] Saumya MICHELE ATTHOMAS (WNR) (M) B 2009 [id number] [phone] AVID Selected Encounter This section includes the information on record at [place] for the Encounter. Date/Time Encounter Type Encounter Description Reason Provider Source Oct 25, 2021 11:43 Outpatient Encounter CLINICAL PHARMACY [facility] Encounter Template Text not used by [place] Plan of Treatment: Future Appointments (+ 6 months) and Future Tests (+/- 45 days) The Plan of Treatment section includes future care activities for the patient from all [place] [facility] This section includes future appointments and future orders which are active, pending orscheduled.Future Appointments This section includes appointments that were scheduled to occur 6 months from the date of the Encounter, up to a maximum of 20 appointments. The data comes from all [facility]. Appointment Date/Time Appointment Type Appointment Facili ty Name Nov 02, 2021 08:42 PM AMBULATORY - MEDICINE [facility] Nov 05, 2021 11:30 AM AMBULATORY - MEDICINE [facility] Nov 09, 2021 09:30 AM AMBULATORY - NONE [facility] Nov 19, 2021 12:45 PM AMBULATORY - MEDICINE [facility] Nov 21, 2021 10:00 AM AMBULATORY - SURGERY [facility] Nov 29, 2021 06:30 AM AMBULATORY - NONE [facility] Nov 29, 2021 07:30 AM AMBULATORY - MEDICINE [facility] Nov 29, 2021 08:00 AM AMBULATORY - MEDICINE [facility] Dec 21, 2021 09:30 AM AMBULATORY - NONE [facility] January 07, 2022 01:30 PM AMBULATORY - MEDICINE [facility] Feb 05, 2022 07:00 AM AMBULATORY - NONE [facility] Feb 07, 2022 09:30 AM AMBULATORY - NONE [facility] Feb 13, 2022 10:00 AM AMBULATORY - NONE [facility] Mar 21, 2022 09:30 AM AMBULATORY - NONE [facility] Active, Pending, and Scheduled Orders This section includes a listing of several types of active, pending, and scheduled orders, including clinic medications orders, diagnostic test orders, procedure orders and consult orders; where the start date of the order is 45 days before the date of the Encounter or 45 days after the date of the Encounter. The data comes from all [facility]. Test Date/Time Test Type Test Details Facility Name Sep 25, 2021 03:21 PM Pharmacy - Clinic [facility] Infusion Order Nov 29, 2021 06:30 AM Laboratory - Blood Bank TYPE & SCREEN - [place] B [facility] Order BLOOD SP Social History: Smoking Status (Most current) and Tobacco Use (All prior to encounter date) This section includes the most current, and the historical, smoking and tobacco-related health factors from the [place] facility where the Encounter took place.Current Smoking Status This section includes the most current smoking, or tobacco-related health factor, from the [facility] facility where the Encounter took place. Date/Time Current Smoking Status Comment Facility Mar 20, 2021 11:21 AM [facility]-VAAES TOBACCO USE CURRENT NRT [facility] DECLINE Tobacco Use History This section includes a history of the smoking, or tobacco- related health factors, that were collected on or before the date of the Encounter. The data comes from the [place] facility where the Encounter took place. 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 Jun 21, 2019 02:29 PM VA-TOBACCO USE WI 30 MIN OF WAKEUP [facility] Jun 21, 2019 02:29 PM VA-TOBACCO USER EVERY DAY [facility] Jun 09, 2018 03:48 PM VA-TOBACCO USE 30 YEARS OR MORE [facility] Jun 09, 2018 03:48 PM VA-TOBACCO USE ADVICE 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 Jun 09, 2018 03:48 PM VA-TOBACCO USE WI 30 MIN OF WAKEUP [facility] Jun 09, 2018 03:48 PM VA-TOBACCO USER EVERY DAY [facility] Jun 20, 2017 07:53 AM CURRENT TOBACCO USER [facility] Jun 19, 2016 08:41 AM CURRENT [...] ALL of a patient's completed or amended [place] Advance and Rescinded Directives. The entries below indicate that a directive exists for the patient, but an actual copy is not included with this document. The data comes from all [place] facilities. Date Advance Directives Provider Source Mar 06, 2005 ADVANCE DIRECTIVE MICHAELGANESH [facility] Encounter Notes: All associated encounter notes This section contains the clinical notes associated to the Encounter. Date/Time Encounter Note(s) Provider Source Oct 25, 2021 11:43 CARDIOLOGY DIAGNOSTIC STUDY NOTE: LAUREANO GRIDER [facility] DANITA LOCAL TITLE: CARDIOLOGY ELECTROPHYSIOLOGY NOTE RUKHSANA TORRES STANDARD TITLE: CARDIOLOGY DIAGNOSTIC STUDY NOTE DATE OF NOTE: OCT 25, 2021@11:43 ENTRY DATE: OCT 25, 2021@11:43:31 AUTHOR: MARLEY FIGUEROA EXP COSIGNER: URGENCY: STATUS: COMPLETED I have reviewed the case, patient was sc heduled on November 09 can be performed on November 29 clinically, as it is a long case an d needs supporting staff and permit schedule. /billy/ KATHERINE FIGUEROA MD STAFF PHYSICIAN - CARDIAC CUSTOMER SUCCESS SPECIALIST Signed: 10/25/2021 11:44
--- OUTSIDE RECORDS SUMMARY | 2022-04-02 16:09 | XMS_ITS | Encounter Summary ---
:[address] [facility] Address [address] [place] [id number] Care Team Providers Name Role Phone CROUCH EFREN Primary Care Provider Unavailable Insurance Providers: All [...] MEDICARE MEDICARE PART Jun 25, PART B [id number] Saumya QUINONES PATIENT (WNR) (M) B 2011 78A 0 AVID MEDICARE MEDICARE PART Sep 25, PART A [id number] Saumya QUINONES PATIENT (WNR) (M) A 2009 78A 0 AVID MEDICARE MEDICARE PART Sep 25, PART A [id number] Saumya MICHELE (WNR) (M) A 2009 78A [id number] AVID MEDICARE MEDICARE PART Sep 25, PART B [id number] Saumya MICHELE (WNR) (M) B 2009 78A [id number] AVID Selected Encounter This section includes the information on record at [place] for the Encounter. Date/Time Encounter Type Encounter Description Reason Provider Source Dec 21, 2021 08:49 Outpatient Encounter PRIMARY CARE/MEDICINE AM I[facility] Encounter Template Text not used by [place] Plan of Treatment: Future Appointments (+ 6 months) and Future Tests (+/- 45 days) The Plan of Treatment section includes future care activities for the patient from all [place] [facility] This section includes future appointments and future orders which are active, pending orscheduled.Future Appointments This section includes appointments that were scheduled to occur 6 months from the date of the Encounter, up to a maximum of 20 appointments. The data comes from all [facility]. Appointment Date/Time Appointment Type Appointment Facili ty Name January 07, 2022 01:30 PM AMBULATORY - MEDICINE [facility] Feb 05, 2022 07:00 AM AMBULATORY - NONE [facility] Feb 07, 2022 09:30 AM AMBULATORY NONE [facility] Feb 13, 2022 10:00 AM AMBULATORY [facility] Mar 21, 2022 09:30 AM AMBULATORY [facility] Active, Pending, [...] the Encounter. The data comes from all [facility]. Test Date/Time Test Type Test Details Facility Name Nov 29, 2021 06:30 AM Laboratory - Blood Bank TYPE & SCREEN - LA B [facility] Order BLOOD SP Dec 15, 2021 12:00 AM Laboratory - Chemistry BASIC METABOLIC MIN [facility] Order PANEL+MG PLASMA SP Lab Results: [...] Reference Range Comment Nov 30, 2021 11:26 [facility] FINGERSTICK GLUCOSE Speci men Type: BLOOD AM Comment: [place] Nurse Notified Ordering Provid er: TEAM,CARDS TWO Report Released Date/Time: Nov 30, 2021 11:46 AM Reporting Lab: [facility] I PHIL [facility] [address] Performing [facility] [address] FINGERSTICK GLUCOSE 284 mg/dL H 70-100 Nov 30, 2021 09:47 AM [facility] ALBUMIN Specim en Type: PLASMA No comment enter ed. Ordering Provid er: ELIUD DINERO Report Released Date/Time: Nov 29, 2021 07:53 PM Reporting Lab: [facility] [address] Performing Lab: [facility] [address] ALBUMIN 3.4 g/dL L 3.5-5.2 Nov 30, 2021 09:47 [facility] BASIC METABOLIC Specimen Type: PLASMA AM PANEL+MG No comment enter ed. Ordering Provid er: ANGIE MALHOTRA Report Released Date/Time: Nov 29, 2021 08:12 PM Reporting Lab: [facility] [address] Performing Lab: [facility] [address] CREATININE 1.2 mg/dL 0.7-1.2 UREA NITROGEN 18 mg/dL 8-26 GLUCOSE 342 mg/dL H 74-100 SODIUM 141 mmol/L 136-145 POTASSIUM 4.3 mmol/L 3.5-5.1 CHLORIDE 108 mmol/L H 98-107 CO2 26 mmol/L 22-29 CALCIUM 8.6 mg/dL 8.4-10.2 MAGNESIUM 1.5 mg/dL L 1.6-2.6 ANION GAP 7 mmol/L 5-15 CREAT EGFR(CKD-EPI) 63 >60 Nov 30, 2021 09:46 AM [facility] CBC Specim en Type: BLOOD No comment enter ed. Ordering Provid er: ANGIE MALHOTRA Report Released Date/Time: Nov 29, 2021 08:12 PM Reporting Lab: [facility] [address] Performing Lab: [facility] [address] WBC 10.61 10*3/uL 4.0-11.0 RBC 4.33 10*6/uL L 4.6-6.2 HGB 14.6 g/dL 13.5-17.9 HCT 45.2 41-54 MCV 104.4 fL H 80-100 MCH 33.7 pg H 27-33 MCHC 32.3 g/dL 32.0-37.5 PLT 71 10*3/uL L 150-400 MPV 13.9 fL H 7.4-10.4 RDW 14.7 H 11.5-14.5 IPF 17.8 H 0-10 Nov 30, 2021 06:09 [facility] FINGERSTICK GLUCOSE Speci men Type: BLOOD AM Comment: [place] Nurse Notified Ordering Provid er: IRENE BURNS Report Released Date/Time: Nov 30, 2021 06:32 AM Reporting Lab: [facility] [address] [facility] [address] Performing Lab: [facility] [address] [facility] [address] FINGERSTICK GLUCOSE 165 mg/dL H 70-100 Nov 29, 2021 07:35 [facility] FINGERSTICK GLUCOSE Speci men Type: BLOOD PM Comment: [place] Nurse Notified Ordering Provid er: IRENE BURNS Report Released Date/Time: Nov 29, 2021 07:48 PM Reporting Lab: [facility] [address] [facility] [address] Performing Lab: [facility] [address] [facility] [address] FINGERSTICK GLUCOSE 160 mg/dL H 70-100 Nov 29, 2021 06:52 [facility] FINGERSTICK GLUCOSE Speci men Type: BLOOD PM Comment: [place] Nurse Notified Ordering Provid er: EFREN CROUCH Report Released Date/Time: Nov 29, 2021 07:04 PM Reporting Lab: [facility] [address] [facility] [address] Performing Lab: [facility] [address] [facility] [address] FINGERSTICK GLUCOSE 161 mg/dL H 70-100 Nov 29, 2021 04:18 [facility] FINGERSTICK GLUCOSE Speci men Type: BLOOD PM No comment enter ed. Ordering Provid er: IRENE BURNS Report Released Date/Time: Nov 29, 2021 08:08 PM Reporting Lab: [facility] [address] [facility] [address] Performing Lab: [facility] [address] [facility] [address] FINGERSTICK GLUCOSE 179 mg/dL H 70-100 Nov 29, 2021 03:26 [facility] POC ABG/ELECTROLYTES Spec imen Type: ARTERIAL BLOOD PM Comment: Sample Type = ARTERIAL Ordering Provid er: IRENE BURNS Report Released Date/Time: Nov 29, 2021 07:53 PM Reporting Lab: [facility] [address] [facility] [address] Performing Lab: [facility] [address] POC PH 7.321 L 7.35-7.45 POC PCO2 [...] mg/dL L 4.50-5.30 Nov 29, 2021 03:24 [facility] FINGERSTICK GLUCOSE Speci men Type: BLOOD PM Comment: Save R esult Ordering Provid er: TEAM,CARDS TWO Report Released Date/Time: Nov 29, 2021 08:08 PM Reporting Lab: [facility] [address] Performing Lab: [facility] [address] FINGERSTICK GLUCOSE 188 mg/dL H 70-100 Nov 29, 2021 02:06 [facility] POC ABG/ELECTROLYTES Spec imen Type: ARTERIAL BLOOD PM Comment: Sample Type = ARTERIAL Ordering Provid er: TEAM,CARDS TWO Report Released Date/Time: Nov 29, 2021 07:53 PM Reporting Lab: [facility] [address] Performing Lab: [facility] [address] POC PH 7.313 L 7.35-7.45 POC PCO2 [...] mg/dL L 4.50-5.30 Nov 29, 2021 02:04 [facility] FINGERSTICK GLUCOSE Speci men Type: BLOOD PM Comment: Save R esult Ordering Provid er: IRENE BURNS Report Released Date/Time: Nov 29, 2021 08:08 PM Reporting Lab: [facility] [address] [facility] [address] Performing Lab: [facility] [address] [facility] [address] FINGERSTICK GLUCOSE 236 mg/dL H 70-100 Nov 29, 2021 01:52 PM [facility] POC ACT Specim en Type: BLOOD No comment enter ed. Ordering Provid er: IRENE BURNS Report Released Date/Time: Dec 03, 2021 01:31 PM Reporting Lab: [facility] [address] [facility] [address] Performing Lab: [facility] [address] [facility] [address] POC ACT 135 s 84-139 Nov 29, 2021 01:16 PM [facility] POC ACT Specim en Type: BLOOD No comment enter ed. Ordering Provid er: IRENE BURNS Report Released Date/Time: Dec 03, 2021 01:30 PM Reporting Lab: [facility] [address] [facility] [address] Performing Lab: [facility] [address] [facility] [address] POC ACT 355 s 84-139 Nov 29, 2021 12:49 PM [facility] POC ACT Specim en Type: BLOOD No comment enter ed. Ordering Provid er: IRENE BURNS Report Released Date/Time: Dec 03, 2021 01:30 PM Reporting Lab: [facility] [address] [facility] [address] Performing Lab: [facility] [address] [facility] [address] POC ACT 367 s 84-139 Nov 29, 2021 12:48 [facility] POC ABG/ELECTROLYTES Spec imen Type: ARTERIAL BLOOD PM Comment: Sample Type = ARTERIAL Ordering Provid er: IRENE BURNS Report Released Date/Time: Nov 29, 2021 07:53 PM Reporting Lab: [facility] [address] [facility] [address] Performing Lab: [facility] [address] [facility] [address] POC PH 7.289 L 7.35-7.45 POC PCO2 [...] 4.7 mg/dL 4.50-5.30 Nov 29, 2021 12:45 [facility] FINGERSTICK GLUCOSE Speci men Type: BLOOD PM Comment: Save R esult Ordering Provid er: IRENE BURNS Report Released Date/Time: Nov 29, 2021 08:08 PM Reporting Lab: [facility] [address] [facility] [address] [facility]: [facility] [address] FINGERSTICK GLUCOSE 186 mg/dL H 70-100 Nov 29, 2021 12:26 PM [facility] POC ACT Specim en Type: BLOOD No comment enter ed. Ordering Provid er: IRENE BURNS Report Released Date/Time: Dec 03, 2021 01:30 PM Reporting Lab: [facility] [address] [facility] [address] Performing [facility]: [facility] [address] POC ACT 367 s 84-139 Nov 29, 2021 11:58 AM [facility] POC ACT Specim en Type: BLOOD No comment enter ed. Ordering Provid er: IRENE BURNS TWO Report Released Date/Time: Dec 03, 2021 01:30 PM Reporting Lab: [facility] [address] [facility] [address] Performing Lab: [facility] [address] POC ACT 338 s 84-139 Nov 29, 2021 11:53 [facility] FINGERSTICK GLUCOSE Speci men Type: BLOOD AM Comment: Save R esult Ordering Provid er: IRENE BURNS TWO Report Released Date/Time: Nov 29, 2021 08:08 PM Reporting Lab: [facility] I [facility] [address] Performing Lab: [facility] [place] [address] [facility] [address] FINGERSTICK GLUCOSE 225 mg/dL H 70-100 Nov 29, 2021 11:30 AM [facility] POC ACT Specim en Type: BLOOD No comment enter ed. Ordering Provid er: IRENE BURNS Report Released Date/Time: Dec 03, 2021 01:30 PM Reporting Lab: [facility] [address] Performing Lab: [facility] [address] POC ACT 355 s 84-139 Nov 29, 2021 11:26 [facility] POC ABG/ELECTROLYTES Spec imen Type: ARTERIAL BLOOD AM Comment: Sample Type = ARTERIAL Ordering Provid er: IRENE BURNS Report Released Date/Time: Nov 29, 2021 07:53 PM Reporting Lab: [facility] [place] [facility] [address] Performing Lab: [facility] [address] POC PH 7.317 L 7.35-7.45 POC PCO2 [...] 4.8 mg/dL 4.50-5.30 Nov 29, 2021 11:06 [facility] FINGERSTICK GLUCOSE Speci men Type: BLOOD AM No comment enter ed. Ordering Provid er: IRENE BURNS Report Released Date/Time: Nov 29, 2021 08:08 PM Reporting Lab: [facility] [facility] [address] Performing Lab: [facility] [place] [facility] [address] FINGERSTICK GLUCOSE 221 mg/dL H 70-100 Nov 29, 2021 11:02 AM [facility] POC ACT Specim en Type: BLOOD No comment enter ed. Ordering Provid er: IRENE BURNS Report Released Date/Time: Dec 03, 2021 01:30 PM Reporting Lab: [facility] [address] [facility] [address] Performing Lab: [facility] [address] [facility] [address] POC ACT 294 s 84-139 Nov 29, 2021 10:26 AM [facility] POC ACT Specim en Type: BLOOD No comment enter ed. Ordering Provid er: IRENE BURNS Report Released Date/Time: Dec 03, 2021 01:30 PM Reporting Lab: [facility] [address] [facility] [address] Performing Lab: [facility] [place] [address] [facility] [address] POC ACT 329 s 84-139 Nov 29, 2021 10:06 AM [facility] POC ACT Specim en Type: BLOOD No comment enter ed. Ordering Provid er: IRENE BURNS Report Released Date/Time: Dec 03, 2021 01:30 PM Reporting Lab: [facility] [address] [facility] [address] Performing Lab: [facility] [address] [facility] [address] POC ACT 312 s 84-139 Nov 29, 2021 09:58 [facility] POC ABG/ELECTROLYTES Spec imen Type: ARTERIAL BLOOD AM Comment: Sample Type = ARTERIAL Ordering Provid er: IRENE BURNS Report Released Date/Time: Nov 29, 2021 07:53 PM Reporting Lab: [facility] [address] [facility] [address] Performing Lab: [facility] [address] [facility] [address] POC PH 7.334 L 7.35-7.45 POC PCO2 [...] 4.9 mg/dL 4.50-5.30 Nov 29, 2021 09:56 [facility] FINGERSTICK GLUCOSE Speci men Type: BLOOD AM No comment enter ed. Ordering Provid er: IRENE BURNS TWO Report Released Date/Time: Nov 29, 2021 08:08 PM Reporting Lab: [facility] [address] [facility] [address] Performing Lab: [facility] [address] [facility] [address] FINGERSTICK GLUCOSE 194 mg/dL H 70-100 Nov 29, 2021 09:45 AM [facility] POC ACT Specim en Type: BLOOD No comment enter ed. Ordering Provid er: IRENE BURNS TWO Report Released Date/Time: Dec 03, 2021 01:30 PM Reporting Lab: [facility] [address] [facility] [address] Performing Lab: [facility] [address] [facility] [address] POC ACT 269 s 84-139 Nov 29, 2021 08:59 AM [facility] POC ACT Specim en Type: BLOOD No comment enter ed. Ordering Provid er: IRENE BURNS TWO Report Released Date/Time: Dec 03, 2021 01:30 PM Reporting Lab: [facility] [address] [facility] [address] Performing Lab: [facility] [address] [facility] [address] POC ACT 135 s 84-139 Nov 29, 2021 [facility] COVID-19 AND FLU/RSV Specime n Type: NASOPHARYNGEAL 07:05 AM DIAG PANEL(CEPHEID) Comment: Ce phearline GeneXpert (618) Ordering Provid er: KATHERNIE FIGUEROA Report Released Date/Time: Oct 29, 2021 12:22 PM Reporting Lab: [facility] [address] [facility] [address] Performing Lab: [facility] [address] [facility] [address] COVID-19 (CEPHEID) Not Detected Not Dete cted INFLUENZA A (PCR) Not Detected Not Detec susanne INFLUENZA B (PCR) Not Detected Not Detec susanne RSV (PCR) Not Detected Not Detected Nov 29, 2021 [facility] BASIC METABOLIC Specimen Typ e: PLASMA 06:38 AM PANEL+MG No comment enter ed. Ordering Provid er: KATHERINE FIGUEROA Report Released Date/Time: Oct 29, 2021 12:22 PM Reporting Lab: [facility] [address] Performing Lab: [facility] [address] CREATININE 1.4 mg/dL H 0.7-1.2 UREA NITROGEN 23 mg/dL 8-26 GLUCOSE 201 mg/dL H 74-100 SODIUM 143 mmol/L 136-145 POTASSIUM 4.3 mmol/L 3.5-5.1 CHLORIDE 108 mmol/L H 98-107 CO2 28 mmol/L 22-29 CALCIUM 9.9 mg/dL 8.4-10.2 MAGNESIUM 1.9 mg/dL 1.6-2.6 ANION GAP 7 mmol/L 5-15 CREAT EGFR(CKD-EPI) 53 L >60 Nov 29, 2021 06:38 [facility] CBC Specimen Type: BLOOD AM No comment enter ed. Ordering Provid er: KATHERINE FIGUEROA Report Released Date/Time: Oct 29, 2021 12:22 PM Reporting Lab: [facility] [address] Performing Lab: [facility] [address] WBC 7.40 10*3/uL 4.0-11.0 RBC 5.17 10*6/uL 4.6-6.2 HGB 17.6 g/dL 13.5-17.9 HCT 52.7 41-54 MCV 101.9 fL H 80-100 MCH 34.0 pg H 27-33 MCHC 33.4 g/dL 32.0-37.5 PLT 88 10*3/uL L 150-400 MPV 14.3 fL H 7.4-10.4 RDW 14.4 11.5-14.5 IPF 18.0 H 0-10 Nov 29, 2021 [facility] PROTHROMBIN Specimen Typ e: PLASMA 06:38 AM TIME/INR No comment enter ed. Ordering Provid er: KATHERINE FIGUEROA Report Released Date/Time: Oct 29, 2021 12:22 PM Reporting Lab: [facility] [address] Performing Lab: [facility] [address] .INR 1.1 0.8-1.1 .PT 13.1 s H 9.4-12.5 Nov 29, 2021 [facility] ACT PART Specimen Typ e: PLASMA 06:38 AM THROMBO TIME No comment enter ed. Ordering Provid er: KATHERINE FIGUEROA Report Released Date/Time: Oct 29, 2021 12:22 PM Reporting Lab: [facility] [address] [facility] [address] Performing Lab: [facility] [address] [facility] [address] APTT 33.3 s 25.1-36.5 Social History: Smoking Status (Most current) and [...] Comment Facility Nov 29, 2021 08:36 PM [facility] TOBACCO USE CURRENT NRT [facility] ACCEPT Tobacco Use History This section includes a history of the smoking, or tobacco- related health factors, that were collected on or before the date of the Encounter. The data comes from the [place] facility where the Encounter took place. 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 [facility] Nov 15, 2020 10:00 AM VA-TOBACCO USE MED NO [place] [facility] Nov 15, 2020 10:00 AM VA-TOBACCO USER EVERY DAY [facility] Jun 21, 2019 02:29 PM VA-TOBACCO USE 30 YEARS OR MORE [facility] Jun 21, 2019 02:29 PM VA-TOBACCO USE ADVICE [place] [facility] Jun 21, 2019 02:29 PM 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 Jun 09, 2018 03:48 PM VA-TOBACCO USE [place] 30 MIN OF WAKEUP [facility] Jun 09, 2018 03:48 PM VA-TOBACCO USER EVERY DAY [facility] Jun 20, 2017 07:53 AM CURRENT TOBACCO USER [facility] Jun 19, 2016 08:41 AM CURRENT TOBACCO USER [facility] Jun 21, 2015 08:15 AM CURRENT TOBACCO USER [facility] Mar 22, 2014 10:03 AM CURRENT TOBACCO USER [facility] Mar 25, 2013 11:01 AM CURRENT TOBACCO USER [facility] Feb 05, 2012 08:55 AM CURRENT TOBACCO USER [facility] January 01, 2011 09:26 AM CURRENT TOBACCO USER [facility] Mar 07, 2010 10:02 AM CURRENT TOBACCO USER [facility] Feb 21, 2009 08:17 AM CURRENT TOBACCO USER [facility] Nov 06, 2007 10:02 AM CURRENT TOBACCO USER [facility] January 02, 2007 10:33 AM CURRENT [...] this document. The data comes from all [facility]. Date Advance Directives Provider Source Mar 06, 2005 ADVANCE DIRECTIVE GANESH RODRIGUEZ [facility] Radiology Reports: +/- 30 days of [...] the Encounter. The data comes from all [place] treatment facilities. Date/Time Radiology Report Provider Source Nov 30, 2021 07:05 AM CHEST 2 VIEWS PA AND LAT: MONET LUDWIG [facility] PAUL MICHELE [id number] -[birth year] M Exm Date: NOV 30, 2021@07:05 Req Phys: CHERRY MENDOZA Pat Loc: 3LSOB/ 2@08:05 Img Loc: MAIN X-RAY Service: zzcard sect (Case [id number] COMPLETE) CHEST 2 VIEWS PA AND LAT (R AD Detailed) CPT:44256 Reason for Study: s/p upgrade ICD adding [...] pager listed below: User placing orders pager: [phone] LAST CREATININE 1.4 H (11/29/21) Report Status: Verified Date Reported: NOV 30, 2021 Date Verified: NOV 30, 2021 Software Development Analyst E-Sig:/ES/MONET LUDWIG MD, FACR, C CD Report: [...] 2021 06:25 PM CHEST 1 VIEW: MAGDALENE DAVIDSONWILLIE JOLLY [facility] [place] [id number] -[birth year], [birth year] 9 M Exm Date: NOV 29, 2021@18:25 Req Phys: CHERRY MENDOZA Pat Loc: [facility] [address] [facility] (Req'g Loc) Img Loc: MAIN X-RAY Service: Unknown (Case [id number] COMPLETE) CHEST 1 VIEW (RAD Detailed) CPT:25095 Reason for Study: s/p upgrade ICD adding [...] pager listed below: User placing orders pager: [phone] LAST CREATININE 1.4 H (11/29/21) Report Status: Verified Date Reported: NOV 29, 2021 Date Verified: NOV 29, 2021 Software Development Analyst E-Sig:/ES/MAGDALENE DAVIDSON MD Report: DATE/TIME REGISTERED: 11/29/2021 [...] Primary Interpreting Staff: MAGDALENE DAVIDSON MD, RADIOLOGIST (Software Development Analyst) /LUAN Encounter Notes: All associated encounter notes This section contains the clinical notes associated to the Encounter. Date/Time Encounter Note(s) Provider Source Dec 21, 2021 08:49 AM HOME HEALTH REFERRAL NOTE: KODI MUHAMMAD [facility] LOCAL TITLE: [facility] STANDARD TITLE: HOME HEALTH REFERRAL NOTE DATE OF NOTE: DEC 21, 2021@08:49 ENTRY DATE: DEC 21, 2021@08:49:16 AUTHOR: KODI MUHAMMAD EXP COSIGNER: URGENCY: STATUS: COMPLETED HOME HEALTH CARE CERTIFICATION AND PLAN OF CARE SIGNED BY: Dr. 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
--- OUTSIDE RECORDS SUMMARY | 2022-04-02 16:09 | XMS_ITS | Encounter Summary ---
:1945 Author Organization Department [facility] Address [address] [place] [address] Support Name Relationship Address Phone NIDIA MICHELE Unavailable [address] [place] [phone] NIDIA MICHELE Unavailable [address] [phone] [place] [phone] Insurance Providers: All historical and current Section [...] MEDICARE MEDICARE PART Jun 25, PART B [id number] Saumya QUINONES PATIENT (WNR) (M) B 2011 78A 0 AVID MEDICARE MEDICARE PART Sep 25, PART A [id number] Saumya QUINONES PATIENT (WNR) (M) A 2009 78A 0 AVID MEDICARE MEDICARE PART Sep 25, PART A [id number] Saumya MICHELE (WNR) (M) A 2009 [id number] [phone] AVID MEDICARE MEDICARE PART Sep 25, PART B [id number] Saumya MICHELE (WNR) (M) B 2009 78A [phone] AVID Selected Encounter This section includes the information on record at CT for the Encounter. Date/Time Encounter Type Encounter Reason Provider Source Description January 07, 2022 PM DEVICE PROGR CIED DEVICES ICD-10-CM Z95.810 SUGEY SURESH, 01:30 PM EVAL DUAL Presence of [employer] automatic (implantable) cardiac defibrillator with Provider Comments: Cardiac defibrillator in situ (SCT [id number]) IHE Encounter Template Text not used by CT Assessments - Encounter Diagnoses This section includes the primary and secondary diagnoses documented for the Encounter. Date/Time Primary/Secondary Diagnosis Name Provider Source Diagnosis January 07, 2022 PRIMARY [facility] 01:28 PM automatic [facility] (implantable) cardiac defibrillator Plan of Treatment: Future Appointments (+ 6 months) and Future Tests (+/- 45 days) The Plan of Treatment section includes future care activities for the [facility] This section includes future appointments and future orders which are active, pending orscheduled.Future Appointments This section includes appointments that were scheduled to occur 6 months from the date of the Encounter, up to a maximum of 20 appointments. The data comes from all [facility] treatment [facility]. Appointment Date/Time Appointment Type Appointment Facili ty Name Feb 05, 2022 07:00 AM AMBULATORY - [facility] Feb 07, 2022 09:30 AM AMBULATORY [facility] Feb 13, 2022 10:00 AM AMBULATORY [facility] Mar 21, 2022 09:30 AM AMBULATORY [facility] Active, Pending, and Scheduled Orders This section includes a listing of several types of active, pending, and scheduled orders, including clinic medications orders, diagnostic test orders, procedure orders and consult orders; where the start date of the order is 45 days before the date of the Encounter or 45 days after the date of the Encounter. The data comes from all [facility]. Test Date/Time Test Type Test Details Facility Name Nov 29, 2021 06:30 AM Laboratory - Blood Bank TYPE & SCREEN - [facility] B [facility] Order BLOOD SP Dec 15, 2021 12:00 AM Laboratory - Chemistry BASIC METABOLIC MIN [facility] Order PANEL+MG PLASMA SP Social History: Smoking Status (Most current) and Tobacco Use (All prior to encounter date) This section includes the most current, and the historical, smoking and tobacco-related health factors from the CT facility where the Encounter took place.Current Smoking Status This section includes the most current smoking, or tobacco-related health factor, from the CT facility where the Encounter took place. Date/Time Current Smoking Status Comment Facility Nov 29, 2021 08:[address]-VAAES TOBACCO USE CURRENT NRT [facility] ACCEPT Tobacco Use History This section includes a history of the smoking, or tobacco- related health factors, that were collected on or before the date of the Encounter. The data comes from the CT facility where the Encounter took place. Date/Time Smoking Status/Tobacco Use Comment Nicola ity Mar 20, 2021 11:21 AM VA-[facility]AAES TOBACCO USE CURRENT NRT [facility] DECLINE Nov 15, 2020 10:00 AM VA-TOBACCO DOESNT USE [place] [address] [facility] WAKEUP Nov 15, 2020 10:00 AM VA-TOBACCO USE [address] 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 Nov 15, 2020 10:00 AM VA-TOBACCO USE MED [facility] Nov 15, 2020 10:00 AM VA-TOBACCO USER EVERY DAY [facility] Jun 21, 2019 02:29 PM VA-TOBACCO USE [address] 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 Jun 21, 2019 02:29 PM VA-TOBACCO USE MED NO [place] [facility] Jun 21, 2019 02:29 PM VA-TOBACCO USE [place] [address] [facility] Jun 21, 2019 02:29 PM VA-TOBACCO USER EVERY DAY [facility] Jun 09, 2018 03:48 PM VA-TOBACCO USE [address] 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 Jun 09, 2018 03:48 PM VA-TOBACCO USE MED NO [place] [facility] Jun 09, 2018 03:48 PM VA-TOBACCO USE [place] [address] [facility] Jun 09, 2018 03:48 PM VA-TOBACCO USER EVERY DAY [facility] Jun 20, 2017 07:53 AM CURRENT TOBACCO USER [facility] Jun 19, 2016 08:41 AM CURRENT TOBACCO USER [facility] Jun 21, 2015 08:15 AM CURRENT TOBACCO USER [facility] Mar 22, 2014 10:03 AM CURRENT TOBACCO USER [facility] Mar 25, 2013 11:01 AM CURRENT TOBACCO USER [facility] Feb 05, 2012 08:55 AM CURRENT TOBACCO USER [facility] January 01, 2011 09:26 AM CURRENT TOBACCO USER [facility] Mar 07, 2010 10:02 AM CURRENT TOBACCO USER [facility] Feb 21, 2009 08:17 AM CURRENT TOBACCO USER [facility] Nov 06, 2007 10:02 AM CURRENT TOBACCO USER [facility] January 02, 2007 10:33 AM CURRENT TOBACCO USER [facility] Advance Directives: All historical and current Section Date Range: From patient's date of to the date document was created. This section includes ALL of a patient's completed or amended CT Advance and Rescinded Directives. The entries below indicate that a directive exists for the patient, but an actual copy is not included with this document. The data comes from all CT facilities. Date Advance Directives Provider Source Mar 06, [address] [facility] Encounter Notes: All associated encounter notes This section contains the clinical notes associated to the Encounter. Date/Time Encounter Note(s) Provider Source January 07, 2022 07:56 CARDIOLOGY DIAGNOSTIC STUDY NOTE: NESHA DAI [facility] AM LOCAL TITLE: CARDIOLOGY ELECTROPHYSIOLOGY NOTE RET STANDARD TITLE: CARDIOLOGY DIAGNOSTIC STUDY NOTE DATE OF NOTE: JANUARY 07, 2022@07:56 ENTRY DATE: JANUARY 07, 2022@07:56:16 AUTHOR: LUIS MURILLO EXP COSIGNER: URGENCY: STATUS: COMPLETED CARDIOLOGY ELECTROPHYSIOLOGY NOTE Has ADDEN DA ICD Analysis Visit Location (Clinic): EP Cardiac Device Diagnosis/Indication: CMP Incision check performed Site: clean, dry, intact, without sign or sympt oms of infection Arm restrictions have been removed. Report s ome soreness with seat belt, discussed sheep skin or wash cloth. 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[employer] Model: [place] Dual Chamber Device will deliver therapy for rates > 188bpm Luis Armando Parameters: AAI-DDD Lower Rate/Upper Rate: 50/130bpm Mode Switch: Not Available Battery Longevity: 12yrs Sensing Threshold - Atrium: 4.1 mV (R) Ventricle: 4.9 mV Pacing Threshold - Atrium: 0.75V @ 0.4 ms (R) Ventricle: 0.75V @ 0.4 ms Lead Impedance - Atrium: 570 ohms (R) Ventricle: 361 ohms Shockin ohms Percent Paced - Atrium: 3.9 % Ventricle: 0.2 % Pacer Dependent at VVI 30 bpm: No Ventricle Episodes: 54 VTNS Mode Switch Episodes: 3 =12 .9% Longest and most recent episode >24minutes, avg V rate 99bpm. 3 SVT, EGMs appear to be afib with RVR, overall afib burden is low. History of afib, confirms AC. Comment: PVI and upgrade to DDD ICD 11/29/21, new RA lead. History of low R wave. rATP fine-tuned to match SOP. Monitored status via Bluetooth [employer] Reprogrammed: Yes Return to clinic: one year Analysis by: DEMETRIS Smith Device report viewable via [employer]. Patient enrolled in remote monitoring. Data avai lable via CT National Cardiac Device Surveillance System. Normal quarterly nora cks are not documented via CPRS, data available upon request by paging [phone]. Abnormal remote checks documented in CPRS. /billy/ AKBAR JOYNER EP Clinical Specialist Signed: 01/07/2022 13:28 01/07/2022 ADDENDUM STATUS: COMPLETED Correction, longest AFib episode 12/07/21 > 24 ho urs. /AKBAR Perla EP Clinical Specialist Signed: 01/07/2022 13:48
--- OUTSIDE RECORDS SUMMARY | 2022-04-02 16:09 | XMS_ITS | Encounter Summary ---
:1945 Author Organization [facility] Address [address] [place], [place] [address] Care Team Providers Name Role Phone SAKSHI [...] MEDICARE MEDICARE PART Jun 25, PART B [id number] Saumya QUINONES PATIENT (WNR) (M) B 2011 78A 0 AVID MEDICARE MEDICARE PART Sep 25, PART A [id number] Saumya QUINONES PATIENT (WNR) (M) A 2009 78A 0 AVID MEDICARE MEDICARE PART Sep 25, PART A [id number] Saumya MICHELE (WNR) (M) A 2009 78A [phone] AVID MEDICARE MEDICARE PART Sep 25, PART B [id number] Saumya MICHELE (WNR) (M) B 2009 78A [phone] AVID Selected Encounter This section includes the information on record at [place] for the Encounter. Date/Time Encounter Type Encounter Reason Provider Source Description Nov 29, 2021 08:04 Outpatient AMBULATORY [facility] AM Encounter IHE Encounter Template Text not used by [place] Plan of Treatment: Future Appointments (+ 6 months) and Future Tests (+/- 45 days) The Plan of Treatment section includes future care activities for the [facility] [place] [facility] This section includes future appointments and future orders which are active, pending orscheduled.Future Appointments This section includes appointments that were scheduled to occur 6 months from the date of the Encounter, up to a maximum of 20 appointments. The data comes from all [facility]. Appointment Date/Time Appointment Type Appointment Facili ty Name Dec 21, 2021 09:30 AM AMBULATORY - NONE [facility] January 07, 2022 01:30 PM AMBULATORY - MEDICINE [facility] Feb 05, 2022 07:00 AM AMBULATORY - [facility] Feb 07, 2022 09:30 AM AMBULATORY - NONE [facility] Feb 13, 2022 10:00 AM AMBULATORY [facility] Mar 21, 2022 09:30 AM AMBULATORY [facility] Active, Pending, and Scheduled Orders This section includes a listing of several types of active, pending, and scheduled orders, including clinic medications orders, diagnostic test orders, procedure orders and consult orders; where the start date of the order is 45 days before the date of the Encounter or 45 days after the date of the Encounter. The data comes from all [facility]. Test Date/Time Test Type Test Details Facility Name Nov 29, 2021 06:30 AM Laboratory - Blood Bank TYPE & SCREEN - LA B [facility] Order BLOOD SP Dec 15, 2021 12:00 AM Laboratory - Chemistry BASIC METABOLIC MIN [facility] Order PANEL+MG PLASMA SP Lab Results: [...] Reference Range Comment Nov 30, 2021 11:26 [facility] FINGERSTICK GLUCOSE Speci men Type: BLOOD AM Comment: [place] Nurse Notified Ordering Provid er: TEAM,CARDS TWO Report Released Date/Time: Nov 30, 2021 11:46 AM Reporting Lab: [facility] ONE [facility] [address] Performing Lab: [facility] [address] FINGERSTICK GLUCOSE 284 mg/dL H 70-100 Nov 30, 2021 09:47 AM [facility] ALBUMIN Specim en Type: PLASMA No comment enter ed. Ordering Provid er: ELIUD DINERO Report Released Date/Time: Nov 29, 2021 07:53 PM Reporting Lab: [facility] [address] Performing Lab: [facility] [address] ALBUMIN 3.4 g/dL L 3.5-5.2 Nov 30, 2021 09:47 [facility] BASIC METABOLIC Specimen Type: PLASMA AM PANEL+MG No comment enter ed. Ordering Provid er: ANGIE MALHOTRA Report Released Date/Time: Nov 29, 2021 08:12 PM Reporting Lab: [facility] [address] Performing Lab: [facility] [address] CREATININE 1.2 mg/dL 0.7-1.2 UREA NITROGEN 18 mg/dL 8-26 GLUCOSE 342 mg/dL H 74-100 SODIUM 141 mmol/L 136-145 POTASSIUM 4.3 mmol/L 3.5-5.1 CHLORIDE 108 mmol/L H 98-107 CO2 26 mmol/L 22-29 CALCIUM 8.6 mg/dL 8.4-10.2 MAGNESIUM 1.5 mg/dL L 1.6-2.6 ANION GAP 7 mmol/L 5-15 CREAT EGFR(CKD-EPI) 63 >60 Nov 30, 2021 09:46 AM [facility] CBC Specim en Type: BLOOD No comment enter ed. Ordering Provid er: ANGIE MALHOTRA Report Released Date/Time: Nov 29, 2021 08:12 PM Reporting Lab: [facility] [address] [facility] [address] Performing Lab: [facility] [address] WBC 10.61 10*3/uL 4.0-11.0 RBC 4.33 10*6/uL L 4.6-6.2 HGB 14.6 g/dL 13.5-17.9 HCT 45.2 41-54 MCV 104.4 fL H 80-100 MCH 33.7 pg H 27-33 MCHC 32.3 g/dL 32.0-37.5 PLT 71 10*3/uL L 150-400 MPV 13.9 fL H 7.4-10.4 RDW 14.7 H 11.5-14.5 IPF 17.8 H 0-10 Nov 30, 2021 06:09 [facility] FINGERSTICK GLUCOSE Speci men Type: BLOOD AM Comment: [place] Nurse Notified Ordering Provid er: IRENE BURNS Report Released Date/Time: Nov 30, 2021 06:32 AM Reporting Lab: [facility] [address] [facility] [address] Performing Lab: [facility] [address] [facility] [address] FINGERSTICK GLUCOSE 165 mg/dL H 70-100 Nov 29, 2021 07:35 [facility] F[place]ICK GLUCOSE Speci men Type: BLOOD PM Comment: [place] Nurse Notified Ordering Provid er: IRENE BURNS TWO Report Released Date/Time: Nov 29, 2021 07:48 PM Reporting Lab: [facility] [address] [facility] [address] Performing Lab: [facility] [address] [facility] [address] FINGERSTICK GLUCOSE 160 mg/dL H 70-100 Nov 29, 2021 06:52 [facility] F[place] GLUCOSE Speci men Type: BLOOD PM Comment: [place] Nurse Notified Ordering Provid er: SAKSHI CROUCH Report Released Date/Time: Nov 29, 2021 07:04 PM Reporting Lab: [facility] [address] [facility] [address] Performing Lab: [facility] [address] [facility] [address] FINGERSTICK GLUCOSE 161 mg/dL H 70-100 Nov 29, 2021 04:18 [facility] FINGERSTICK GLUCOSE Speci men Type: BLOOD PM No comment enter ed. Ordering Provid er: IRENE BURNS TWO Report Released Date/Time: Nov 29, 2021 08:08 PM Reporting Lab: [facility] [address] [facility] [address] Performing Lab: [facility] [address] [facility] [address] FINGERSTICK GLUCOSE 179 mg/dL H 70-100 Nov 29, 2021 03:26 [facility] POC ABG/ELECTROLYTES Spec imen Type: ARTERIAL BLOOD PM Comment: Sample Type = ARTERIAL Ordering Provid er: IRENE BURNS TWO Report Released Date/Time: Nov 29, 2021 07:53 PM Reporting Lab: [facility] [address] Performing Lab: [facility] [address] POC PH 7.321 L 7.35-7.45 POC PCO2 [...] mg/dL L 4.50-5.30 Nov 29, 2021 03:24 [facility] FINGERSTICK GLUCOSE Speci men Type: BLOOD PM Comment: Save R esult Ordering Provid er: TEAM,CARDS TWO Report Released Date/Time: Nov 29, 2021 08:08 PM Reporting Lab: [facility] [address] Performing Lab: [facility] [address] FINGERSTICK GLUCOSE 188 mg/dL H 70-100 Nov 29, 2021 02:06 [facility] POC ABG/ELECTROLYTES Spec imen Type: ARTERIAL BLOOD PM Comment: Sample Type = ARTERIAL Ordering Provid er: TEAM,CARDS TWO Report Released Date/Time: Nov 29, 2021 07:53 PM Reporting Lab: [facility] [address] Performing Lab: [facility] [address] POC PH 7.313 L 7.35-7.45 POC PCO2 [...] mg/dL L 4.50-5.30 Nov 29, 2021 02:04 [facility] FINGERSTICK GLUCOSE Speci men Type: BLOOD PM Comment: Save R esult Ordering Provid er: IRENE BURNS Report Released Date/Time: Nov 29, 2021 08:08 PM Reporting Lab: [facility] [address] [facility] [address] Performing Lab: [facility] [address] [facility] [address] FINGERSTICK GLUCOSE 236 mg/dL H 70-100 Nov 29, 2021 01:52 PM [facility] POC ACT Specim en Type: BLOOD No comment enter ed. Ordering Provid er: IRENE BURNS Report Released Date/Time: Dec 03, 2021 01:31 PM Reporting Lab: [facility] [address] [facility] [address] Performing Lab: [facility] [address] [facility] [address] POC ACT 135 s 84-139 Nov 29, 2021 01:16 PM [facility] POC ACT Specim en Type: BLOOD No comment enter ed. Ordering Provid er: IRENE BURNS Report Released Date/Time: Dec 03, 2021 01:30 PM Reporting Lab: [facility] [address] [facility] [address] Performing Lab: [facility] [address] [facility] [address] POC ACT 355 s 84-139 Nov 29, 2021 12:49 PM [facility] POC ACT Specim en Type: BLOOD No comment enter ed. Ordering Provid er: IRENE BURNS Report Released Date/Time: Dec 03, 2021 01:30 PM Reporting Lab: [facility] [address] [facility] [address] Performing Lab: [facility] [address] [facility] [address] POC ACT 367 s 84-139 Nov 29, 2021 12:48 [facility] POC ABG/ELECTROLYTES Spec imen Type: ARTERIAL BLOOD PM Comment: Sample Type = ARTERIAL Ordering Provid er: IRENE BURNS Report Released Date/Time: Nov 29, 2021 07:53 PM Reporting Lab: [facility] [address] [facility] [address] Performing Lab: [facility] [address] [facility] [address] POC PH 7.289 L 7.35-7.45 POC PCO2 [...] 4.7 mg/dL 4.50-5.30 Nov 29, 2021 12:45 [facility] FINGERSTICK GLUCOSE Speci men Type: BLOOD PM Comment: Abram R pranav Ordering Provid er: IRENE BURNS TWO Report Released Date/Time: Nov 29, 2021 08:08 PM Reporting Lab: [facility] [address] [facility] [address] Performing Lab: [facility] [address] [facility] [address] FINGERSTICK GLUCOSE 186 mg/dL H 70-100 Nov 29, 2021 12:26 PM [facility] POC ACT Specim en Type: BLOOD No comment enter ed. Ordering Provid er: IRENE BURNS TWO Report Released Date/Time: Dec 03, 2021 01:30 PM Reporting Lab: [facility] [address] [facility] [address] Performing Lab: [facility] [address] [facility] [address] POC ACT 367 s 84-139 Nov 29, 2021 11:58 AM [facility] POC ACT Specim en Type: BLOOD No comment enter ed. Ordering Provid er: IRENE BURNS TWO Report Released Date/Time: Dec 03, 2021 01:30 PM Reporting Lab: [facility] [address] [facility] [address] Performing Lab: [facility] [address] [facility] [address] POC ACT 338 s 84-139 Nov 29, 2021 11:53 [facility] FINGERSTICK GLUCOSE Speci men Type: BLOOD AM Comment: Save R esult Ordering Provid er: IRENE BURNS TWO Report Released Date/Time: Nov 29, 2021 08:08 PM Reporting Lab: [facility] [address] Performing Lab: [facility] [address] FINGERSTICK GLUCOSE 225 mg/dL H 70-100 Nov 29, 2021 11:30 AM [facility] POC ACT Specim en Type: BLOOD No comment enter ed. Ordering Provid er: IRENE BURNS Report Released Date/Time: Dec 03, 2021 01:30 PM Reporting Lab: [facility] [address] Performing Lab: [facility] [address] POC ACT 355 s 84-139 Nov 29, 2021 11:26 [facility] POC ABG/ELECTROLYTES Spec imen Type: ARTERIAL BLOOD AM Comment: Sample Type = ARTERIAL Ordering Provid er: IRENE BURNS Report Released Date/Time: Nov 29, 2021 07:53 PM Reporting Lab: [facility] [address] Performing Lab: [facility] [address] POC PH 7.317 L 7.35-7.45 POC PCO2 [...] 4.8 mg/dL 4.50-5.30 Nov 29, 2021 11:06 [facility] FINGERSTICK GLUCOSE Speci men Type: BLOOD AM No comment enter ed. Ordering Provid er: IRENE BURNS Report Released Date/Time: Nov 29, 2021 08:08 PM Reporting Lab: [facility] [address] Performing Lab: [facility] [address] FINGERSTICK GLUCOSE 221 mg/dL H 70-100 Nov 29, 2021 11:02 AM [facility] POC ACT Specim en Type: BLOOD No comment enter ed. Ordering Provid er: IRENE BURNS Report Released Date/Time: Dec 03, 2021 01:30 PM Reporting Lab: [facility] [address] [facility] [address] Performing Lab: [facility] [address] [facility] [address] POC ACT 294 s 84-139 Nov 29, 2021 10:26 AM [facility] POC ACT Specim en Type: BLOOD No comment enter ed. Ordering Provid er: IRENE BURNS Report Released Date/Time: Dec 03, 2021 01:30 PM Reporting Lab: [facility] [address] [facility] [address] Performing Lab: [facility] [address] [facility] [address] POC ACT 329 s 84-139 Nov 29, 2021 10:06 AM [facility] POC ACT Specim en Type: BLOOD No comment enter ed. Ordering Provid er: IRENE BURNS Report Released Date/Time: Dec 03, 2021 01:30 PM Reporting Lab: [facility] [address] [facility] [address] Performing Lab: [facility] [address] [facility] [address] POC ACT 312 s 84-139 Nov 29, 2021 09:58 [facility] POC ABG/ELECTROLYTES Spec imen Type: ARTERIAL BLOOD AM Comment: Sample Type = ARTERIAL Ordering Provid er: IRENE BURNS Report Released Date/Time: Nov 29, 2021 07:53 PM Reporting Lab: [facility] [address] [facility] [place] [address] Performing Lab: [facility] [address] [facility] [place] [address] POC PH 7.334 L 7.35-7.45 POC PCO2 [...] 4.9 mg/dL 4.50-5.30 Nov 29, 2021 09:56 [facility] FINGERSTICK GLUCOSE Speci men Type: BLOOD AM No comment enter ed. Ordering Provid er: IRENE BURNS TWO Report Released Date/Time: Nov 29, 2021 08:08 PM Reporting Lab: [facility] [address] [facility] [address] Performing Lab: [facility] [address] [facility] [address] FINGERSTICK GLUCOSE 194 mg/dL H 70-100 Nov 29, 2021 09:45 AM [facility] POC ACT Specim en Type: BLOOD No comment enter ed. Ordering Provid er: IRENE BURNS Report Released Date/Time: Dec 03, 2021 01:30 PM Reporting Lab: [facility] [address] [facility] [address] Performing Lab: [facility] [address] [facility] [place] [address] POC ACT 269 s 84-139 Nov 29, 2021 08:59 AM [facility] POC ACT Specim en Type: BLOOD No comment enter ed. Ordering Provid er: IRENE BURNS TWO Report Released Date/Time: Dec 03, 2021 01:30 PM Reporting Lab: [facility] [address] [facility] [place] [address] Performing Lab: [facility] [address] [facility] [place] [address] POC ACT 135 s 84-139 Nov 29, 2021 [facility] COVID-19 AND FLU/RSV Specime n Type: NASOPHARYNGEAL 07:05 AM DIAG PANEL(CEPHEID) Comment: [place] phearline GeneXpert (618) Ordering Provid er: KATHERINE FIGUEROA Report Released Date/Time: Oct 29, 2021 12:22 PM Reporting Lab: [facility] [address] [facility] [address] Performing Lab: [facility] [address] [facility] [place] [address] COVID-19 (CEPHEID) Not Detected Not Dete cted INFLUENZA A (PCR) Not Detected Not Detec susanne INFLUENZA B (PCR) Not Detected Not Detec susanne RSV (PCR) Not Detected Not Detected Nov 29, 2021 [facility] BASIC METABOLIC Specimen Typ e: PLASMA 06:38 AM PANEL+MG No comment enter ed. Ordering Provid er: KATHERINE FIGUEROA Report Released Date/Time: Oct 29, 2021 12:22 PM Reporting Lab: [facility] [address] [facility] [place] [address] Performing Lab: [facility] [address] CREATININE 1.4 mg/dL H 0.7-1.2 UREA NITROGEN 23 mg/dL 8-26 GLUCOSE 201 mg/dL H 74-100 SODIUM 143 mmol/L 136-145 POTASSIUM 4.3 mmol/L 3.5-5.1 CHLORIDE 108 mmol/L H 98-107 CO2 28 mmol/L 22-29 CALCIUM 9.9 mg/dL 8.4-10.2 MAGNESIUM 1.9 mg/dL 1.6-2.6 ANION GAP 7 mmol/L 5-15 CREAT EGFR(CKD-EPI) 53 L >60 Nov 29, 2021 06:38 [facility] CBC Specimen Type: BLOOD AM No comment enter ed. Ordering Provid er: KATHERINE FIGUEROA Report Released Date/Time: Oct 29, 2021 12:22 PM Reporting Lab: [facility] [address] [facility] [address] Performing Lab: [facility] [address] WBC 7.40 10*3/uL 4.0-11.0 RBC 5.17 10*6/uL 4.6-6.2 HGB 17.6 g/dL 13.5-17.9 HCT 52.7 41-54 MCV 101.9 fL H 80-100 MCH 34.0 pg H 27-33 MCHC 33.4 g/dL 32.0-37.5 PLT 88 10*3/uL L 150-400 MPV 14.3 fL H 7.4-10.4 RDW 14.4 11.5-14.5 IPF 18.0 H 0-10 Nov 29, 2021 [facility] PROTHROMBIN Specimen Typ e: PLASMA 06:38 AM TIME/INR No comment enter ed. Ordering Provid er: KATHERINE FIGUEROA Report Released Date/Time: Oct 29, 2021 12:22 PM Reporting [facility] [place] [address] Performing Lab: [facility] [address] [facility] [address] .INR 1.1 0.8-1.1 .PT 13.1 s H 9.4-12.5 Nov 29, 2021 [facility] ACT PART Specimen Typ e: PLASMA 06:38 AM THROMBO TIME No comment enter ed. Ordering Provid er: KATHERINE FIGUEROA Report Released Date/Time: Oct 29, 2021 12:22 PM Reporting Lab: [facility] [address] [facility] [place] [address] Performing Lab: [facility] [address] APTT 33.3 s 25.1-36.5 Vital Signs: All taken on the encounter date This section contains inpatient and outpatient Vital Signs collected on the date of the Encounter. Date/Time Temperature Pulse Blood Respiratory SP02 Pain Height Weight Axel dy Source Pressure Rate Mass Index Nov 29, 98.3 F 96 99/66 18 /min 90 % 0 [place] 2021 11:07 /min mm[Hg] [facility] Nov 29 96 % [place] 2021 08:40 /min [facility] Nov 29, 232 lb 30 [place] 2021 08:38 [facility] Nov 29 112/73 97 % [place] 2021 08:35 /min mm[Hg] [facility] Nov 29 113/69 90 % [place] 2021 08:15 /min mm[Hg] [facility] Social History: Smoking Status (Most current) [...] 08:36 PM VA-VAAES TOBACCO USE CURRENT NRT [facility] ACCEPT Tobacco Use History This section includes a history of the smoking, or tobacco- related health factors, that were collected on or before the date of the Encounter. The data comes from the [place] facility where the Encounter took place. Date/Time Smoking Status/Tobacco Use Comment [facility] Mar 20, 2021 11:21 AM VA-VAAES TOBACCO USE CURRENT NRT [facility] DECLINE Nov 15, 2020 10:00 AM VA-TOBACCO DOESNT USE WI 30 MIN [facility] WAKEUP Nov 15, 2020 10:00 AM VA-TOBACCO USE 30 YEARS OR MORE [facility] Nov 15, 2020 10:00 AM VA-TOBACCO USE ADVICE [place] [facility] Nov 15, 2020 10:00 AM VA-TOBACCO USE INCLUSION 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 [facility] Nov 15, 2020 10:00 AM VA-TOBACCO USE MED NO [place] [facility] Nov 15, 2020 10:00 AM VA-TOBACCO USER EVERY DAY [facility] Jun 21, 2019 02:29 PM VA-TOBACCO USE 30 YEARS OR MORE [facility] Jun 21, 2019 02:29 PM VA-TOBACCO USE ADVICE [place] [facility] Jun 21, 2019 02:29 PM VA-TOBACCO USE INCLUSION 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 [facility] Jun 21, 2019 02:29 PM VA-TOBACCO USE MED NO [place] [facility] Jun 21, 2019 02:29 PM VA-TOBACCO USE WI 30 MIN OF WAKEUP [facility] Jun 21, 2019 02:29 PM VA-TOBACCO USER EVERY DAY [facility] Jun 09, 2018 03:48 PM VA-TOBACCO USE 30 YEARS OR MORE [facility] Jun 09, 2018 03:48 PM VA-TOBACCO USE ADVICE [place] [facility] Jun 09, 2018 03:48 PM VA-TOBACCO USE INCLUSION 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 [facility] Jun 09, 2018 03:48 PM VA-TOBACCO USE MED NO [place] [facility] Jun 09, 2018 03:48 PM VA-TOBACCO USE [place] 30 MIN OF WAKEUP [facility] Jun 09, 2018 03:48 PM VA-TOBACCO USER EVERY DAY [facility] Jun 20, 2017 07:53 AM CURRENT TOBACCO USER [facility] Jun 19, 2016 08:41 AM CURRENT TOBACCO USER [facility] Jun 21, 2015 08:15 AM CURRENT TOBACCO USER [facility] Mar 22, 2014 10:03 AM CURRENT TOBACCO USER [facility] Mar 25, 2013 11:01 AM CURRENT TOBACCO USER [facility] Feb 05, 2012 08:55 AM CURRENT TOBACCO USER [facility] January 01, 2011 09:26 AM CURRENT TOBACCO USER [facility] Mar 07, 2010 10:02 AM CURRENT TOBACCO USER [facility] Feb 21, 2009 08:17 AM CURRENT TOBACCO USER [facility] Nov 06, 2007 10:02 AM CURRENT TOBACCO USER [facility] January 02, 2007 10:33 AM CURRENT TOBACCO USER [facility] Advance Directives: All historical and current Section Date Range: From patient's date of to the date document was created. This section includes ALL of a patient's completed or amended [place] Advance and Rescinded Directives. The entries below indicate that a directive exists for the patient, but an actual copy is not included with this document. The data comes from all [facility]. Date Advance Directives Provider Source Mar 06, 2005 ADVANCE DIRECTIVE GANESH RODRIGUEZ [facility] Radiology Reports: +/- 30 days of [...] 2 VIEWS PA AND LAT: MONET LUDWIG [facility] PAUL MICHELE [phone] -[birth year] 9 M Exm Date: NOV 30, 2021@07:05 Req Phys: CHERRY MENDOZA Loc: 3LSOB/ 2@08:05 Img Loc: MAIN X-RAY Service: zzcard sect (Case [id number] COMPLETE) CHEST 2 VIEWS PA AND LAT (R AD Detailed) CPT:97234 Reason for Study: s/p upgrade ICD adding an A l ead Clinical History: Post ICD or Pacemaker: Verify Lead Placement. [facility] IS NOT under investigation for COVID-19 or is COVID-19 negative s/p upgrade ICD adding an A lead Responsible pr ovider name and phone number to notify for critical findings if other than user placing the order and pager listed below: User placing orders pager: [phone] LAST CREATININE 1.4 H (11/29/21) Report Status: Verified Date Reported: NOV 30, 2021 Date Verified: NOV 30, 2021 Lamp Replacer E-Sig:/ES/MONET LUDWIG MD, FACR, C CD Report: [...] 06:25 PM CHEST 1 VIEW: MAGDALENE DAVIDSON [facility] [place] [id number] -[birth year] 9 M Exm Date: NOV 29, 2021@18:25 Req Phys: CHERRY MENDOZA Pat Loc: [facility] [address] [facility] (Req'g Loc) Img Loc: MAIN X-RAY Service: Unknown (Case [id number] COMPLETE) CHEST 1 VIEW (RAD Detailed) CPT:15404 Reason for Study: s/p upgrade ICD adding [...] pager listed below: User placing orders pager: [phone] LAST CREATININE 1.4 H (11/29/21) Report Status: Verified Date Reported: NOV 29, 2021 Date Verified: NOV 29, 2021 Lamp Replacer E-Sig:/HOLLIE/MAGDALENE DAVIDSON MD Report: DATE/TIME REGISTERED: 11/29/2021 [...] Primary Interpreting Staff: MAGDALENE DAVIDSON MD, RADIOLOGIST (Lamp Replacer) /LUAN
--- OUTSIDE RECORDS SUMMARY | 2022-04-02 16:09 | XMS_ITS | Encounter Summary ---
:1945 Author Organization [facility] Address [address] [place] [id number] Care Team Providers Name Role Phone WILLA [...] MEDICARE MEDICARE PART Jun 25, PART B [id number] Saumya QUINONES PATIENT (WNR) (M) B 2011 78A 0 AVID MEDICARE MEDICARE PART Sep 25, PART A [id number] Saumya QUINONES PATIENT (WNR) (M) A 2009 78A 0 AVID MEDICARE MEDICARE PART Sep 25, PART A [id number] Saumya MICHELE (WNR) (M) A 2009 78A [id number] AVID MEDICARE MEDICARE PART Sep 25, PART B [id number] Saumya MICHELE ATTHOMAS (WNR) (M) B 2009 [id number] [id number] AVID Selected Encounter This section includes the information on record at [place] for the Encounter. Date/Time Encounter Type Encounter Description Reason Provider Source Mar 06, 2022 12:33 Outpatient Encounter CARDIOLOGY PM IHE Encounter Template Text not used by [place] Plan of Treatment: Future Appointments (+ 6 months) and Future Tests (+/- 45 days) The Plan of Treatment section includes future care activities for the patient from all [place] [facility]. This section includes future appointments and future orders which are active, pending orscheduled.Future Appointments This section includes appointments that were scheduled to occur 6 months from the date of the Encounter, up to a maximum of 20 appointments. The data comes from all [place] treatment facilities. Appointment Date/Time Appointment Type Appointment Facili ty Name Mar 21, 2022 09:30 AM AMBULATORY - NONE [facility] Lab Results: +/- 30 days of the [...] Range Comment Feb 13, 2022 09:28 AM [facility] HEMOGLOBIN A1C Specim en Type: BLOOD No comment enter ed. Ordering Provid er: JAYY SAMS Report Released Date/Time: Feb 07, 2022 04:30 PM Reporting Lab: [facility] [address] [facility] [id number] Performing Lab: [facility] [address] [facility] [id number] HEMOGLOBIN A1C 8.5 H 4.0-6.0 Social History: Smoking Status (Most [...] Comment Facility Nov 29, 2021 08:36 PM [facility] TOBACCO USE CURRENT NRT [facility] ACCEPT Tobacco Use History This section includes a history of the smoking, or tobacco- related health factors, that were collected on or before the date of the Encounter. The data comes from the [place] facility where the Encounter took place. 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 [facility] Nov 15, 2020 10:00 AM VA-TOBACCO USE MED NO [place] [facility] Nov 15, 2020 10:00 AM VA-TOBACCO USER EVERY DAY [facility] Jun 21, 2019 02:29 PM VA-TOBACCO USE 30 YEARS OR MORE [facility] Jun 21, 2019 02:29 PM VA-TOBACCO USE ADVICE [place] [facility] Jun 21, 2019 02:29 PM 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 [facility] Jun 21, 2019 02:29 PM VA-TOBACCO USE MED NO [place] [facility] Jun 21, 2019 02:29 PM VA-TOBACCO USE WI 30 MIN OF WAKEUP [facility] Jun 21, 2019 02:29 PM VA-TOBACCO USER EVERY DAY [facility] Jun 09, 2018 03:48 PM VA-TOBACCO USE 30 YEARS OR MORE [facility] Jun 09, 2018 03:48 PM VA-TOBACCO USE ADVICE [place] [facility] Jun 09, 2018 03:48 PM 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 [facility] Jun 09, 2018 03:48 PM VA-TOBACCO USE MED NO [place] [facility] Jun 09, 2018 03:48 PM VA-TOBACCO USE WI 30 MIN OF WAKEUP [facility] Jun 09, 2018 03:48 PM VA-TOBACCO USER EVERY DAY [facility] Jun 20, 2017 07:53 AM CURRENT TOBACCO USER [facility] Jun 19, 2016 08:41 AM [facility] Jun 21, 2015 08:15 AM [facility] Mar 22, 2014 10:03 AM [facility] Mar 25, 2013 11:01 AM [facility] Feb 05, 2012 08:55 AM CURRENT [facility] January 01, 2011 09:26 AM CURRENT [facility]AC[facility] Mar 07, 2010 10:02 AM CURRENT [facility]BACCO USER [facility] Feb 21, 2009 08:17 AM CURRENT [facility]BACCO USER [facility] Nov 06, 2007 10:02 AM CURRENT [facility]ACCO [facility] January 02, 2007 10:33 AM CURRENT TOBACCO USER [facility] Advance Directives: All historical and [...] Mar 06, 2005 ADVANCE DIRECTIVE GANESH RODRIGUEZ [facility] Encounter Notes: All associated encounter notes This section contains the clinical notes associated to the Encounter. Date/Time Encounter Note(s) Provider Source Mar 06, 2022 12:33 PM REPORT OF CONTACT: SUJATA BUTLERWILLIE JOLLY [facility] LOCAL TITLE: APPOINTMENT SCHEDULING NOTE STANDARD TITLE: REPORT OF CONTACT DATE OF NOTE: MAR 06, 2022@12:33 ENTRY DATE: MAR 06, 2022@12:33:38 AUTHOR: SUJATA BUTLER EXP COSIGNER: URGENCY: STATUS: COMPLETED APPOINTMENT SCHEDULING NOTE [facility] No response to scheduling efforts Contact: Automated letter sent to Veterans peter razo on file on: Jan Contact: Called Arrington at phone:[phone] J Left message on voice mail. Phone number left for to call back: [phone] If calls back, schedule appointment for : Activity: 11/30/2021 10:16 New Order entered by ZAFAR JULIAN RA (PHYSICIAN DOMINGA) Order Text: Return to [facility] CARDIAC EP ELIEL 3D on or around ( Mar 01, 2022 ) for a total of 1 appointment(s) Prerequisites: EKG w/ EKG, device check prior Nature of Order: ELECTRONICALLY ENTERED Elec Signature: TUCKER JULIAN (PHYSICIAN DOMINGA ) on 11/30/2021 10:17 Provider: please review veterans chart and medi cations for renewal needs (if appropriate). The recall request has been deleted. /eb BUTLER LEAD ROSANGELA Signed: 03/06/2022 12:34 Receipt Acknowledged By: 03/06/2022 16:30 /eb JULIAN PA-C PHYSICIAN [employer] HEATER HELPER 03/06/2022 ADDENDUM STATUS: COMPLETED I called patient and reached him. He would like to proceed with scheduling. I transferred him to [facility] line to leave voicemail. /billy/ TUCKER JULIAN PA-C PHYSICIAN [employer] HEATER HELPER Signed: 03/06/2022 16:33 Receipt Acknowledged By: 03/08/2022 10:29 /billy/ SUJATA VERAS MSA 03/08/2022 ADDENDUM STATUS: COMPLETED left a voicemail, when writer editor attempt co ntact there was no answer and another voicemail was left with direlorraine t # /billy/ SUJATA VERAS MSA Signed: 03/08/2022 10:30
--- OUTSIDE RECORDS SUMMARY | 2022-04-02 16:09 | XMS_ITS | Encounter Summary ---
:[address] [facility] Address [address] [place] [id number] Care Team Providers Name Role Phone SAKSHI [...] MEDICARE MEDICARE PART Jun 25, PART B [id number] Saumya QUINONES PATIENT (WNR) (M) B 2011 78A 0 AVID MEDICARE MEDICARE PART Sep 25, PART A [id number] Saumya QUINONES PATIENT (WNR) (M) A 2009 78A 0 AVID MEDICARE MEDICARE PART Sep 25, PART A [id number] Saumya MICHELE (WNR) (M) A 2009 78A [id number] AVID MEDICARE MEDICARE PART Sep 25, PART B [id number] Saumya MICHELE ATTHOMAS (WNR) (M) B 2009 78A [phone] AVID Selected Encounter This section includes the information on record at [place] for the Encounter. Date/Time Encounter Type Encounter Description Reason Provider Source January 02, 2022 12:59 Outpatient Encounter TELEPHONE TRIAGE PM IHE Encounter Template Text not used by [facility] Plan of Treatment: Future Appointments (+ 6 months) and Future Tests (+/- 45 days) The Plan of Treatment section includes future care activities for the patient from all [place] [facility] This section includes future appointments and future orders which are active, pending orscheduled.Future Appointments This section includes appointments that were scheduled to occur 6 months from the date of the Encounter, up to a maximum of 20 appointments. The data comes from all [facility]. Appointment Date/Time Appointment Type Appointment Facili ty Name January 07, 2022 01:30 PM AMBULATORY - MEDICINE [facility] Feb 05, 2022 07:00 AM AMBULATORY - NONE [facility] Feb 07, 2022 09:30 AM AMBULATORY - NONE [facility] Feb 13, 2022 10:00 AM AMBULATORY - NONE [facility] Mar 21, 2022 09:30 AM AMBULATORY [...] the Encounter. The data comes from all [facility]. Test Date/Time Test Type Test Details Facility Name Nov 29, 2021 06:30 AM Laboratory - Blood Bank TYPE & SCREEN - LA B [facility] Order BLOOD SP Dec 15, 2021 12:00 AM Laboratory - Chemistry BASIC METABOLIC MIN [facility] Order PANEL+MG PLASMA SP Social History: Smoking [...] Facility Nov 29, 2021 08:36 PM [facility] TOBACCO USE CURRENT NRT [facility] ACCEPT Tobacco Use History This section includes a history of the smoking, or tobacco- related health factors, that were collected on or before the date of the Encounter. The data comes from the [place] facility where the Encounter took place. 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 [facility] Nov 15, 2020 10:00 AM VA-TOBACCO USE MED NO [place] [facility] Nov 15, 2020 10:00 AM VA-TOBACCO USER EVERY DAY [facility] Jun 21, 2019 02:29 PM VA-TOBACCO USE 30 YEARS OR MORE [facility] Jun 21, 2019 02:29 PM VA-TOBACCO USE ADVICE [place] [facility] Jun 21, 2019 02:29 PM 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 [facility] Jun 21, 2019 [...] 2018 03:48 PM [facility]-[place]BACCO USE ADVICE [place] [facility] Jun 09, 2018 03:48 PM 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 [facility] Jun 09, 2018 03:48 PM VA-TOBACCO USE MED NO [place] [facility] Jun 09, 2018 03:48 PM VA-TOBACCO USE WI 30 MIN OF WAKEUP [facility] Jun 09, 2018 03:48 PM VA-TOBACCO USER EVERY DAY [facility] Jun 20, 2017 07:53 AM CURRENT TOBACCO USER [facility] Jun 19, 2016 08:41 AM [facility] Jun 21, 2015 08:15 AM CURRENT [facility] Mar 22, 2014 10:03 AM CUR[facility] Mar 25, 2013 11:01 AM CURRENT [facility] Feb 05, 2012 08:55 AM [facility] January 01, 2011 09:26 AM CURRENT [facility] Mar 07, 2010 10:02 AM CUR[facility] Feb 21, 2009 08:17 AM CUR[facility] Nov 06, 2007 10:02 AM CURRENT TOBACCO USER [facility] January 02, 2007 10:33 AM CURRENT TOBACCO USER [facility] Advance Directives: All historical and current [...] ADVANCE DIRECTIVE GANESH RODRIGUEZ [facility] Encounter Notes: All associated encounter notes This section contains the clinical notes associated to the Encounter. Date/Time Encounter Note(s) Provider Source January 02, 2022 12:59 PM REPORT OF CONTACT: LUTHER CHICAS [facility]AR[facility] LOCAL TITLE: PATIENT CONTACT NOTE STANDARD TITLE: REPORT OF CONTACT DATE OF NOTE: JANUARY 02, 2022@12:59 ENTRY DATE: JANUARY 02, 2022@12:59:17 AUTHOR: LUTHER CHICAS EXP COSIGNER: URGENCY: STATUS: COMPLETED PATIENT CONTACT NOTE Has ADDENDA Primary Care Call Center Primary Care Provider Call. [place] contacts the call ce maureen requesting a prescription for Viagra from PCP. He declines speaking to a nurse unless necessary . Phone number verified as correct [phone]. /billy/ LUTHER ANNA [address] [facility] Signed: 01/02/2022 13:00 Receipt Acknowledged By: 01/02/2022 16:09 /es/ SAKSHI CROUCH MD STAFF PHYSICIAN 01/02/2022 ADDENDUM STATUS: COMPLETED Called regarding viagra requ est. Not currently on long-acting nitrates. Carries NTG but has not taken any in what he estimates a s years. Told him rule number one is that he should not ever use ntg a nd viagra within 24H of each other. He acknowleges that he understands. Explain ed that viagra does not affect desire- only erections. Reviewed common SE's and the rare but serious ocular SE. If he gets any odd visual distubance he needs to never use it again. Will send a 30 day supply to try. If it works and he tolerates it can change to 90 days. Explained that he can't have active SL ntg and viagra Rx concurrently. When ntg refill needed will have to cancel viagra Rx. Rev iewed literature for any interaction with entresto. Rare interactions onheri vu /billy/ SAKSHI CROUCH MD STAFF PHYSICIAN Signed: 01/02/2022 16:09
--- OUTSIDE RECORDS SUMMARY | 2022-04-02 16:09 | XMS_ITS | Encounter Summary ---
:[address] [facility] Address [address] [place] [id number] Care Team Providers Name Role Phone WILLA [...] MEDICARE MEDICARE PART Jun 25, PART B [id number] Saumya QUINONES PATIENT (WNR) (M) B 2011 78A 0 AVID MEDICARE MEDICARE PART Sep 25, PART A [id number] Saumya QUINONES PATIENT (WNR) (M) A 2009 78A 0 AVID MEDICARE MEDICARE PART Sep 25, PART A [id number] Saumya MICHELE (WNR) (M) A 2009 [id number] [phone] AVID MEDICARE MEDICARE PART Sep 25, PART B [id number] Saumya MICHELE (WNR) (M) B [id number] AVID Selected Encounter This section includes the information on record at [place] for the Encounter. Date/Time Encounter Type Encounter Reason Provider Source Description Feb 07, 2022 HC PRO PHONE TELEPHONE PRIMARY ICD-10-CM E11.9 JETT SAMS 09:30 AM CALL 11-20 MIN CARE Type 2 diabetes AN L mellitus without complications with Provider Comments: Type 2 diabetes mellitus ([facility] [id number]) IHE Encounter Template Text not used by [place] Assessments - Encounter Diagnoses This section includes the primary and secondary diagnoses documented for the Encounter. Date/Time Primary/Secondary Diagnosis Name Provider Source Diagnosis Feb 07, 2022 PRIMARY Type 2 diabetes [facility] 09:30 AM mellitus without AN [facility] complications Plan of Treatment: Future Appointments (+ 6 months) and Future Tests (+/- 45 days) The Plan of Treatment section includes future care activities for the patient from all [place] treatmentfacilities. This section includes future appointments and future orders which are active, pending orscheduled.Future Appointments This section includes appointments that were scheduled to occur 6 months from the date of the Encounter, up to a maximum of 20 appointments. The data comes from all [place] treatment facilities. Appointment Date/Time Appointment Type Appointment Facili ty Name Feb 13, 2022 10:00 AM AMBULATORY - NONE [facility] Mar 21, 2022 09:30 AM AMBULATORY - [facility] Lab Results: +/- 30 days of the encounter This section includes the Chemistry and Hematology Lab Results on record with [place] for the patient. Radiology Reports and Pathology Reports are provided separately, in subsequent sections.Lab Results This section contains the Chemistry/Hematology Results that were resulted 30 days before or 30 daysafter the date of the Encounter. Date/Time Source Result Type Result - Unit Interpretation Reference Range Comment Feb 13, 2022 09:28 AM [facility] HEMOGLOBIN A1C Specim en Type: BLOOD No comment enter ed. Ordering Provid er: JAYY SAMS Report Released Date/Time: Feb 07, 2022 04:30 PM Reporting Lab: [facility] [id number] Performing Lab: [facility] [id number] HEMOGLOBIN A1C 8.5 H 4.0-6.0 Social History: Smoking Status (Most current) and Tobacco Use (All prior to encounter date) This section includes the most current, and the historical, smoking and tobacco-related health factors from the [place] facility where the Encounter took place.Current Smoking Status This section includes the most current smoking, or tobacco-related health factor, from the [place] facility where the Encounter took place. Date/Time Current Smoking Status Comment Facility Nov 29, 2021 08:36 PM NM-VAAES TOBACCO USE CURRENT NRT [facility] ACCEPT Tobacco Use History This section includes a history of the smoking, or tobacco- related health factors, that were collected on or before the date of the Encounter. The data comes from the [place] facility where the Encounter took place. 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 [facility] Nov 15, 2020 10:00 AM VA-TOBACCO USE MED NO [facility] [facility] Nov 15, 2020 10:00 AM VA-TOBACCO USER EVERY DAY [facility] Jun 21, 2019 02:29 PM VA-TOBACCO USE 30 YEARS OR MORE [facility] Jun 21, 2019 02:29 PM VA-TOBACCO USE ADVICE [facility] Jun 21, 2019 02:29 PM 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 [facility] Jun 21, 2019 02:29 PM VA-TOBACCO USE MED NO [place] [facility] Jun 21, 2019 02:29 PM VA-TOBACCO USE WI 30 MIN OF WAKEUP [facility] Jun 21, 2019 02:29 PM VA-TOBACCO USER EVERY DAY [facility] Jun 09, 2018 03:48 PM VA-TOBACCO USE 30 YEARS OR MORE [facility] Jun 09, 2018 03:48 PM VA-TOBACCO USE ADVICE [facility] Jun 09, 2018 03:48 PM 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 Jun 19, 2016 08:41 AM CURRENT TOBACCO USER [facility] Jun 21, 2015 08:15 AM CURRENT TOBACCO USER [facility] Mar 22, 2014 10:03 AM CURRENT TOBACCO USER [facility] Mar 25, 2013 11:01 AM CURRENT TOBACCO USER [facility] Feb 05, 2012 08:55 AM CURRENT TOBACCO USER [facility] January 01, 2011 09:26 AM CURRENT TOBACCO USER [facility] Mar 07, 2010 10:02 AM CURRENT TOBACCO USER [facility] Feb 21, 2009 08:17 AM CURRENT TOBACCO USER [facility] Nov 06, 2007 10:02 AM CURRENT TOBACCO USER [facility] January 02, 2007 10:33 AM CURRENT TOBACCO USER [facility] Advance Directives: All historical and current Section Date Range: From patient's date of to the date document was created. This section includes ALL of a patient's completed or amended [place] Advance and Rescinded Directives. The entries below indicate that a directive exists for the patient, but an actual copy is not included with this document. The data comes from all [place] facilities. Date Advance Directives Provider Source Mar 06, 2005 ADVANCE DIRECTIVE BETH RODRIGUEZRICE [facility] Encounter Notes: All associated encounter notes This section contains the clinical notes associated to the Encounter. Date/Time Encounter Note(s) Provider Source Feb 07, 2022 09:42 AM PIE CHEF NOTE: JAYY SAMS [facility] LOCAL TITLE: DIABETES PIE CHEF NOTE STANDARD TITLE: PIE CHEF NOTE DATE OF NOTE: FEB 07, 2022@09:42 ENTRY DATE: FEB 07, 2022@09:42:32 AUTHOR: JAYY SAMS EXP COSIGNER: URGENCY: STATUS: COMPLETED Visit Type: Phone PAUL MICHELE is a 76 YO MALE followed by [facility] for medication management. SUBJECTIVE: [place] reports he is doing well. His BG are looking good. He has days when it is elevated. He isn't sure w hat is the cause. He notes he struggles with missing his weekly injection. He sets it next to his ora l medications and then will forget to take it. He isn't sure how often he is missing it, but he knows he didn't take it last week. ROS: (-) hypoglycemia symptoms (-) hyperglycemia symptoms SMBG Readings: Date AM Noon PM HS Notes 6 156 6/2 169 6/3 186 6/4 119 6/5 150 6/6 173 6/7 103 6/8 107 6/9 147 6/10 168 6/11 163 6/12 144 02/04 148 14 145 15 103 02/07 195 MEDICATION RECONCILIATION: Active and Recently Outpatient Medicatio [...] ACTIVE MOUTH AT BEDTIME FOR CHOLESTEROL 5) EMPAGLIFLOZIN 25MG TAB TAKE ONE TABLET BY FLORY TH EVERY ACTIVE DAY 6) FUROSEMIDE 40MG TAB TAKE ONE TABLET BY MOUTH EVERY ACTIVE DAY 7) GABAPENTIN 300MG CAP TAKE TWO CAPSULES BY FLORY TH THREE ACTIVE TIMES A DAY FOR LEG PAIN 8) GLIPIZIDE 10MG TAB TAKE TWO TABLETS BY MOUTH TWICE A ACTIVE DAY TAKE 30 MINUTES BEFORE MEAL FOR DIABETES 9) METOPROLOL SUCCINATE 200MG SA TAB TAKE ONE-COLLADO LF ACTIVE TABLET BY MOUTH EVERY DAY FOR HEART 10) OLODATEROL/TIOTROP 2.5MCG/ACTUAT 60D INH INH COLE 2 ACTIVE PUFFS BY INHALATION EVERY DAY TO PREVENT TROUBL E BREATHING 11) SACUBITRIL 24MG/VALSARTAN 26MG TAB TAKE 1 TA BLET BY ACTIVE MOUTH TWICE A DAY FOR HEART FAILURE 12) SEMAGLUTIDE 1MG/0.75ML INJ PEN 3ML INJECT 1M G UNDER ACTIVE THE SKIN EVERY WEEK FOR DIABETES -REFRIGERATE -MULTIPLE DOSES PER PEN 13) SILDENAFIL CITRATE 100MG TAB TAKE ONE TABLET BY MOUTH ACTIVE ONCE NEEDED 1 HOUR BEFORE ANTICIPATED SEXUAL ACTIVITY 14) SPIRONOLACTONE 25MG TAB TAKE ONE-HALF TABLET BY MOUTH ACTIVE EVERY DAY 15) VITAMIN B COMPLEX CAP TAKE 1 CAPSULE BY MOUT H EVERY ACTIVE DAY FOR NUTRITION Inactive Outpatient Medications Status 1) METFORMIN HCL 1000MG TAB TAKE ONE TABLET BY M OUTH TWO TIMES A DAY FOR DIABETES Active Non-VA Medications Status 1) Non-VA ASCORBIC ACID 500MG TAB 1000MG EVERY D AY ACTIVE 2) Non-VA MARINE LIPID (FISH OIL) CAP,ORAL MOUTH ACTIVE 3) Non-VA MULTIVITAMINS CAP/TAB MOUTH ACTIVE 4) Non-VA NON VA MED NOT LISTED MISCELLANEOUS CA TS CLAW ACTIVE MOUTH 20 Total Medications OBJECTIVE: ALLERGIES/ADR: LISINOPRIL (Nov 09, 2007) Vitals: Temperature: 99.0 F [37.2 C] (11/30/2021 07:53) Blood Pressure: 104/72 (11/30/2021 10:19) Pulse: 100 (11/30/2021 10:19) Respiration: 18 (11/30/2021 10:19) Pain: 0 (11/30/2021 07:53) Height: 73.5 in [186.7 cm] (09/21/2021 09:49) Weight: 232 lb [105.23 kg] (11/29/2021 20:38) BMI: 30.3 LABS: Basic Metabolic Panel SODIUM 141 (11/30/21) POTASSIUM 4.3 (11/30/21) CREATININE 1.2 (11/30/21) UREA NITROGEN 18 (11/30/21) GLUCOSE 342 H (11/30/21) CO2 26 (11/30/21) CHLORIDE 108 H (11/30/21) EGFR (03/28) 09/21/21 @ 0858 54 L CREATININE EGFR (CKD-EPI) 11/30/21 @ 0530 63 MAGNESIUM 1.5 L (11/30/21) Collection DT Specimen Test Name Result Units Re f Range 11/30/2021 05:30 PLASMA CREATININE 1.2 mg/dL 0.7 - 1.2 11/29/2021 06:38 PLASMA CREATININE 1.4 H mg/dL 0 .7 - 1.2 09/21/2021 08:58 PLASMA CREATININE 1.3 H mg/dL 0 .7 - 1.2 11/30/2021 05:30 PLASMA CREAT EGFR(CKD-EP 63 Ref : >=60 11/29/2021 06:38 PLASMA CREAT EGFR(CKD-EP 53 L R ef: >=60 09/21/2021 08:58 PLASMA ESTIMATED GFR(eGF 54 L R ef: >=60 06/18/2021 11:52 PLASMA ESTIMATED GFR(eGF 54 L R ef: >=60 06/18/2021 11:50 PLASMA ESTIMATED GFR(eGF 54 L R ef: >=60 Collection DT Spec HGBA1C 09/21/2021 08:55 BLOOD 8.5 H 06/18/2021 11:52 BLOOD 8.6 H 02/19/2021 12:03 BLOOD 10.0 H Collection DT Specimen Test Name Result Units Re f Range 12/22/2017 09:45 URINE ALB/CREAT RATIO,U 275.5 H mg/g creat 0 - 30 12/03/2011 18:23 URINE ALB/CREAT RATIO,U 65.79 H mg/g creat 0 - 30 Collection DT Spec WBC HGB HCT PLT MCV 11/30/2021 05:30 BLOOD 10.61 14.6 45.2 71 L 104. 4 H 11/29/2021 06:38 BLOOD 7.40 17.6 52.7 88 L 101.9 H 06/18/2021 11:52 BLOOD 7.85 16.8 51.9 98 L 104.6 H GLUCOSE 342 H (11/30/21) ASSESSMENT: #DM - Goal A1c <8% (FBG 80-150, PP G <210) per VA/DoD guidelines. Last A1C above goal. SMBG are at goal. Notable continued issues with non-adherence to semaglutide. Discussed methods to improve adherence including placing pen needles with medications as reminder. No changes to therapy a t this time. PLAN: - Improve adherence #Disease-Specific Med Rec: Completed today #Labs: 02/13@10:00 - Educated vet on indication/risks/benefits of n ew/changed medication. - Education provided on therapeutic nonpharmacol ogic management to achieve goals. - Vet advised of recent labs. - [place] verbalized understanding to all plans discussed today. Questions were answered to vet's satisfaction. Time spent: () 5-10 minutes () 11-20 minutes () 21-30 minutes RTC: 03/21@09:30 /billy/ JAYY SAMS Pharmacist Signed: 02/08/2022 08:14
--- OUTSIDE RECORDS SUMMARY | 2022-04-02 16:09 | XMS_ITS | Encounter Summary ---
:1945 Author Organization [facility] Address [address] [place] [address] Care Team Providers Name Role Phone CROUCH [...] MEDICARE MEDICARE PART Jun 25, PART B [id number] Saumya QUINONES PATIENT (WNR) (M) B 2011 78A 0 AVID MEDICARE MEDICARE PART Sep 25, PART A [id number] Saumya QUINONES PATIENT (WNR) (M) A 2009 78A 0 AVID MEDICARE MEDICARE PART Sep 25, PART A [id number] Saumya MICHELE (WNR) (M) A 2009 78A [id number] AVID MEDICARE MEDICARE PART Sep 25, PART B [id number] Saumya MICHELE (WNR) (M) B 2009 78A [id number] AVID Selected Encounter This section includes the information on record at [place] for the Encounter. Date/Time Encounter Type Encounter Reason Provider Source Description Feb 20, 2022 Outpatient HT NON-VIDEO ICD-10-CM I50.9 DOE BURDICK 09:20 AM Encounter MONITORING Heart failure, N M unspecified with Provider Comments: Heart Failure, unspecified IHE Encounter Template Text not used by [place] Assessments - Encounter Diagnoses This section includes the primary and secondary diagnoses documented for the Encounter. Date/Time Primary/Secondary Diagnosis Name Provider Source Diagnosis Feb 20, 2022 PRIMARY Heart failure, NILESH BURDICK [facility] 09:21 AM unspecified [facility] Plan of Treatment: Future Appointments (+ 6 months) and Future Tests (+/- 45 days) The Plan of Treatment section includes future care activities for the patient from all [place] treatmentfacilities. This section includes future appointments and future orders which are active, pending orscheduled.Future Appointments This section includes appointments that were scheduled to occur 6 months from the date of the Encounter, up to a maximum of 20 appointments. The data comes from all [place] treatment facilities. Appointment Date/Time Appointment Type Appointment Facili ty Name Mar 21, 2022 09:30 AM AMBULATORY - NONE [facility] Lab Results: +/- 30 days of the encounter This section includes the Chemistry and Hematology Lab Results on record with [place] for the patient. Radiology Reports and Pathology Reports are provided separately, in subsequent sections.Lab Results This section contains the Chemistry/Hematology Results that were resulted 30 days before or 30 daysafter the date of the Encounter. Date/Time Source Result Type Result - Unit Interpretation Reference Range Comment Feb 13, 2022 09:28 AM [facility] HEMOGLOBIN A1C Specim en Type: BLOOD No comment enter ed. Ordering Provid er: JAYY SAMS Report Released Date/Time: Feb 07, 2022 04:30 PM Reporting Lab: [facility] [address] [facility] [id number] Performing Lab: [facility] [id number] HEMOGLOBIN A1C 8.5 H 4.0-6.0 Social History: Smoking Status (Most current) and Tobacco Use (All prior to encounter date) This section includes the most current, and the historical, smoking and tobacco-related health factors from the [place] facility where the Encounter took place.Current Smoking Status This section includes the most current smoking, or tobacco-related health factor, from the [place] facility where the Encounter took place. Date/Time Current Smoking Status Comment Facility Nov 29, 2021 08:36 PM HI-VAAES TOBACCO USE CURRENT NRT [facility] ACCEPT Tobacco Use History This section includes a history of the smoking, or tobacco- related health factors, that were collected on or before the date of the Encounter. The data comes from the [place] facility where the Encounter took place. 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 [facility] Nov 15, 2020 10:00 AM VA-TOBACCO USE MED NO [place] [facility] Nov 15, 2020 10:00 AM VA-TOBACCO USER EVERY DAY [facility] Jun 21, 2019 02:29 PM VA-TOBACCO USE 30 YEARS OR MORE [facility] Jun 21, 2019 02:29 PM VA-TOBACCO USE ADVICE [place] [facility] Jun 21, 2019 02:29 PM 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 [facility] Jun 21, 2019 02:29 PM VA-TOBACCO USE MED NO [place] [facility] Jun 21, 2019 02:29 PM VA-TOBACCO USE WI 30 MIN OF WAKEUP [facility] Jun 21, 2019 02:29 PM VA-TOBACCO USER EVERY DAY [facility] Jun 09, 2018 03:48 PM VA-TOBACCO USE 30 YEARS OR MORE [facility] Jun 09, 2018 03:48 PM VA-TOBACCO USE ADVICE [place] [facility] Jun 09, 2018 03:48 PM 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 [facility] Jun 09, 2018 03:48 PM VA-TOBACCO USE MED NO [place] [facility] Jun 09, 2018 03:48 PM VA-TOBACCO USE WI 30 MIN OF WAKEUP [facility] Jun 09, 2018 03:48 PM VA-TOBACCO USER EVERY DAY [facility] Jun 20, 2017 07:53 AM CURRENT TOBACCO [...] 08:55 AM CURRENT [facility]AC[facility] January 01, 2011 09:26 AM CURRENT TOBACCO USER [facility] Mar 07, 2010 10:02 AM CURRENT TOBACCO USER [facility] Feb 21, 2009 08:17 AM CURRENT TOBACCO [facility] Nov 06, 2007 10:02 AM CURRENT TOBACCO USER [facility] January 02, 2007 10:33 AM CURRENT TOBACCO USER [facility] Advance Directives: All historical and current Section Date Range: From patient's date of to the date document was created. This section includes ALL of a patient's completed or amended [place] Advance and Rescinded Directives. The entries below indicate that a directive exists for the patient, but an actual copy is not included with this document. The data comes from all [place] facilities. Date Advance Directives Provider Source Mar 06, 2005 ADVANCE DIRECTIVE GANESH RODRIGUEZ [facility] Encounter Notes: All associated encounter notes This section contains the clinical notes associated to the Encounter. Date/Time Encounter Note(s) Provider Source Feb 20, 2022 09:20 AM CARE COORDINATION HOME TELEHEALTH [facility] ARIZATION NOTE: NILESH BURDICK [facility] LOCAL TITLE: HT MONTHLY MONITOR NOTE STANDARD TITLE: CARE COORDINATION HOME TELEHEALT H SUMMARIZATION DATE OF NOTE: FEB 20, 2022@09:20 ENTRY DATE: FEB 20, 2022@09:20:24 AUTHOR: NILESH BURDICK EXP COSIGNER: URGENCY: STATUS: COMPLETED The is enrolled in the Home Telehealth ( HT) program and continues to be monitored via HT technology. The data sent by the is reviewed and analyzed by the staff, who provide ongoin g case management and [place] health education while communicating and collaborating with the health care team as appropriate. This note cover s a total of 30 minutes for the month monitored. Month monitored: January/ NILESH BURDICK RN Chronic Animal Damage Control Agent/HT Signed: 02/20/2022 09:21
--- OUTSIDE RECORDS SUMMARY | 2022-04-02 16:09 | XMS_ITS | Encounter Summary ---
:1945 Author Organization Department [facility] Address [address] [place] [address] Support Name Relationship Address Phone NIDIA MICHELE Unavailable [address] [place] [address] NIDIA MICHELE Unavailable [address] [phone] [place] [phone] Insurance Providers: All historical and current Section [...] MEDICARE MEDICARE PART Jun 25, PART B [id number] Saumya QUINONES PATIENT (WNR) (M) B 2011 78A 0 AVID MEDICARE MEDICARE PART Sep 25, PART A [id number] Saumya QUINONES PATIENT (WNR) (M) A 2009 78A 0 AVID MEDICARE MEDICARE PART Sep 25, PART A [id number] Saumya MICHELE (WNR) (M) A 2009 [id number] [id number] AVID MEDICARE MEDICARE PART Sep 25, PART B [id number] Saumya MICHELE (WNR) (M) B 2009 [id number] [phone] AVID Selected Encounter This section includes the information on record at [place] for the Encounter. Date/Time Encounter Type Encounter Reason Provider Source Description Dec 21, 2021 PRO PHONE TELEPHONE PRIMARY ICD-10-CM E11.9 JETT SAMS 09:30 AM CALL 11-20 MIN CARE Type 2 diabetes AN L mellitus without complications with Provider Comments: Type 2 diabetes mellitus ([facility] [id number]) IHE Encounter Template Text not used by [facility] Assessments - Encounter Diagnoses This section includes the primary and secondary diagnoses documented for the Encounter. Date/Time Primary/Secondary Diagnosis Name Provider Source Diagnosis Dec 21, 2021 PRIMARY Type 2 diabetes [facility] 09:30 AM mellitus without E E [facility] complications Plan of Treatment: Future Appointments (+ 6 months) and Future Tests (+/- 45 days) The Plan of Treatment section includes future care activities for the patient from [facility] [place] [facility]. This section includes future appointments [...] 2022 01:30 PM AMBULATORY - MEDICINE [facility] Feb 05, 2022 07:00 AM AMBULATORY - [facility] Feb 07, 2022 09:30 AM AMBULATORY [facility] Feb 13, 2022 10:00 AM AMBULATORY [facility] Mar 21, 2022 09:30 AM AMBULATORY [facility] Active, Pending, and Scheduled Orders This section includes a listing of several types of active, pending, and scheduled orders, including clinic medications orders, diagnostic test orders, procedure orders and consult orders; where the start date of the order is 45 days before the date of the Encounter or 45 days after the date of the Encounter. The data comes from all [place] treatment [facility]. Test Date/Time Test Type Test Details Facility Name Nov 29, 2021 06:30 AM Laboratory - Blood Bank TYPE & SCREEN - LA B [facility] Order BLOOD SP Dec 15, 2021 12:00 AM Laboratory - Chemistry BASIC METABOLIC [facility] Order PANEL+MG PLASMA SP Lab Results: [...] Reference Range Comment Nov 30, 2021 11:26 [facility] FINGERSTICK GLUCOSE Speci men Type: BLOOD AM Comment: Save R pranav Nurse Notified Ordering Provid er: TEAM,CARDS TWO Report Released Date/Time: Nov 30, 2021 11:46 AM Reporting Lab: [facility] [address] [facility] [address] Performing Lab: [facility] [address] [facility] [address] FINGERSTICK GLUCOSE 284 H 70-100 Nov 30, 2021 09:47 AM [facility] ALBUMIN Specim en Type: PLASMA No comment enter ed. Ordering Provid er: ELIUD DINERO Report Released Date/Time: Nov 29, 2021 07:53 PM Reporting Lab: [facility] [address] [facility] [address] Performing Lab: [facility] [address] [facility] [address] ALBUMIN 3.4 L 3.5-5.2 Nov 30, 2021 09:47 [facility] BASIC METABOLIC Specimen Type: PLASMA AM PANEL+MG No comment enter ed. Ordering Provid er: ANGIE MALHOTRA Report Released Date/Time: Nov 29, 2021 08:12 PM Reporting [facility] [address] Performing Lab: [facility] [address] [facility] [address] CREATININE 1.2 0.7-1.2 UREA NITROGEN 18 8-26 GLUCOSE 342 H 74-100 SODIUM 141 136-145 POTASSIUM 4.3 3.5-5.1 CHLORIDE 108 H 98-107 CO2 26 22-29 CALCIUM 8.6 8.4-10.2 MAGNESIUM 1.5 L 1.6-2.6 ANION GAP 7 5-15 CREAT EGFR(CKD-EPI) 63 >60 Nov 30, 2021 09:46 AM [facility] CBC Specim en Type: BLOOD No comment enter ed. Ordering Provid er: ANGIE MALHOTRA Report Released Date/Time: Nov 29, 2021 08:12 PM Reporting Lab: [facility] [address] [facility] [address] Performing Lab: [facility] [address] [facility] [address] WBC 10.61 4.0-11.0 RBC 4.33 L 4.6-6.2 HGB 14.6 13.5-17.9 HCT 45.2 41-54 MCV 104.4 H 80-100 MCH 33.7 H 27-33 MCHC 32.3 32.0-37.5 PLT 71 L 150-400 MPV 13.9 H 7.4-10.4 RDW 14.7 H 11.5-14.5 IPF 17.8 H 0-10 Nov 30, 2021 06:09 [facility] FINGERSTICK GLUCOSE Speci men Type: BLOOD AM Comment: [place] Nurse Notified Ordering Provid er: IRENE BURNS TWO Report Released Date/Time: Nov 30, 2021 06:32 AM Reporting Lab: [facility] [address] [facility] [address] Performing Lab: [facility] [address] [facility] [address] FINGERSTICK GLUCOSE 165 H 70-100 Nov 29, 2021 07:35 [facility] [place] GLUCOSE Speci men Type: BLOOD PM Comment: [place] Nurse Notified Ordering Provid er: IRENE BURNS TWO Report Released Date/Time: Nov 29, 2021 07:48 PM Reporting Lab: [facility] [address] [facility] [address] Performing Lab: [facility] [address] [facility] [address] FING[place]ICK GLUCOSE 160 H 70-100 Nov 29, 2021 06:52 [facility] F[place]ERSTICK GLUCOSE Speci men Type: BLOOD PM Comment: [place] Nurse Notified Ordering Provid er: SAKSHI CROUCH Report Released Date/Time: Nov 29, 2021 07:04 PM Reporting Lab: [facility] [address] [facility] [address] Performing Lab: [facility] [address] [facility] [address] FINGERSTICK GLUCOSE 161 H 70-100 Nov 29, 2021 04:18 [facility] F[place]ICK GLUCOSE Speci men Type: BLOOD PM No comment enter ed. Ordering Provid er: IRENE BURNS TWO Report Released Date/Time: Nov 29, 2021 08:08 PM Reporting Lab: [facility] [address] [facility] [address] Performing Lab: [facility] [address] [facility] [address] FINGERSTICK GLUCOSE 179 H 70-100 Nov 29, 2021 03:26 [facility] POC ABG/ELECTROLYTES Spec imen Type: ARTERIAL BLOOD PM Comment: Sample Type = ARTERIAL Ordering Provid er: GRANTCARDS TWO Report Released Date/Time: Nov 29, 2021 07:53 PM Reporting Lab: [facility] [address] [facility] [address] Performing Lab: [facility] [address] [facility] [address] POC PH 7.321 L 7.35-7.45 POC PCO2 46.0 H 35.00-45.00 POC PO2 103 80.0-105.0 POC TCO2 25 23.0-27.0 POC HCO3 23.8 22.0-26.0 POC BE ECT -2 -2 POC SO2 97 95-98 POC SODIUM 145 138.0-146.0 POC POTASSIUM 3.5 3.50-5.00 POC HGB 16.0 12.00-17.00 POC HCT 47 38.0-51.0 POC IONIZED CALCIUM 4.2 L 4.50-5.30 Nov 29, 2021 03:24 [facility] F[place]ER[place]ICK GLUCOSE Speci men Type: BLOOD PM Comment: Save R esult Ordering Provid er: TEAM,CARDS TWO Report Released Date/Time: Nov 29, 2021 08:08 PM Reporting Lab: [facility] [address] Performing Lab: [facility] [address] F[place]ICK GLUCOSE 188 H 70-100 Nov 29, 2021 02:06 [facility] POC ABG/ELECTROLYTES Spec imen Type: ARTERIAL BLOOD PM Comment: Sample Type = ARTERIAL Ordering Provid er: TEAM,CARDS TWO Report Released Date/Time: Nov 29, 2021 07:53 PM Reporting Lab: [facility] [address] Performing Lab: [facility] [address] POC PH 7.313 L 7.35-7.45 POC PCO2 48.4 H 35.00-45.00 POC PO2 93 80.0-105.0 POC TCO2 26 23.0-27.0 POC HCO3 24.5 22.0-26.0 POC BE ECT -2 -2 POC SO2 96 95-98 POC SODIUM 144 138.0-146.0 POC POTASSIUM 3.5 3.50-5.00 POC HGB 16.3 12.00-17.00 POC HCT 48 38.0-51.0 POC IONIZED CALCIUM 4.3 L 4.50-5.30 Nov 29, 2021 02:04 [facility] F[place]ER[place]ICK GLUCOSE Speci men Type: BLOOD PM Comment: Save R esult Ordering Provid er: TEAM,CARDS TWO Report Released Date/Time: Nov 29, 2021 08:08 PM Reporting Lab: [facility] [address] [facility] [address] Performing Lab: [facility] [address] [facility] [address] FINGER[place]ICK GLUCOSE 236 H 70-100 Nov 29, 2021 01:52 PM [facility] POC ACT Specim en Type: BLOOD No comment enter ed. Ordering Provid er: IRENE BURNS Report Released Date/Time: Dec 03, 2021 01:31 PM Reporting Lab: [facility] [address] [facility] [address] Performing Lab: [facility] [address] [facility] [address] POC ACT 135 84-139 Nov 29, 2021 01:16 PM [facility] POC ACT Specim en Type: BLOOD No comment enter ed. Ordering Provid er: IRENE BURNS Report Released Date/Time: Dec 03, 2021 01:30 PM Reporting Lab: [facility] [address] [facility] [address] Performing Lab: [facility] [address] [facility] [address] POC ACT 355 84-139 Nov 29, 2021 12:49 PM [facility] POC ACT Specim en Type: BLOOD No comment enter ed. Ordering Provid er: IRENE BURNS Report Released Date/Time: Dec 03, 2021 01:30 PM Reporting Lab: [facility] [address] [facility] [address] Performing Lab: [facility] [address] [facility] [address] POC ACT 367 84-139 Nov 29, 2021 12:48 [facility] POC ABG/ELECTROLYTES Spec imen Type: ARTERIAL BLOOD PM Comment: Sample Type = ARTERIAL Ordering Provid er: IRENE BURNS Report Released Date/Time: Nov 29, 2021 07:53 PM Reporting Lab: [facility] [address] [facility] [address] Performing Lab: [facility] [address] [facility] [address] POC PH 7.289 L 7.35-7.45 POC PCO2 52.6 H 35.00-45.00 POC PO2 86 80.0-105.0 POC TCO2 27 23.0-27.0 POC HCO3 25.2 22.0-26.0 POC BE ECT -1 -2 POC SO2 95 95-98 POC SODIUM 145 138.0-146.0 POC POTASSIUM 3.2 L 3.50-5.00 POC HGB 16.7 12.00-17.00 POC HCT 49 38.0-51.0 POC IONIZED CALCIUM 4.7 4.50-5.30 Nov 29, 2021 12:45 [facility] FINGERSTICK GLUCOSE Speci men Type: BLOOD PM Comment: Save R esult Ordering Provid er: IRENE BURNS TWO Report Released Date/Time: Nov 29, 2021 08:08 PM Reporting Lab: [facility] [address] [facility] [address] Performing Lab: [facility] [address] [facility] [address] FINGER[place]ICK GLUCOSE 186 H 70-100 Nov 29, 2021 12:26 PM [facility] POC ACT Specim en Type: BLOOD No comment enter ed. Ordering Provid er: IRENE BURNS TWO Report Released Date/Time: Dec 03, 2021 01:30 PM Reporting Lab: [facility] [address] [facility] [address] Performing Lab: [facility] [address] [facility] [address] POC ACT 367 84-139 Nov 29, 2021 11:58 AM [facility] POC ACT Specim en Type: BLOOD No comment enter ed. Ordering Provid er: IRENE BURNS Report Released Date/Time: Dec 03, 2021 01:30 PM Reporting Lab: [facility] [address] [facility] [address] Performing Lab: [facility] [address] [facility] [address] POC ACT 338 84-139 Nov 29, 2021 11:53 [facility] FINGERSTICK GLUCOSE Speci men Type: BLOOD AM Comment: Save R esult Ordering Provid er: IRENE BURNS TWO Report Released Date/Time: Nov 29, 2021 08:08 PM Reporting Lab: [facility] [address] [facility] [address] Performing Lab: [facility] [address] [facility] [address] FINGERSTICK GLUCOSE 225 H 70-100 Nov 29, 2021 11:30 AM [facility] POC ACT Specim en Type: BLOOD No comment enter ed. Ordering Provid er: IRENE BURNS TWO Report Released Date/Time: Dec 03, 2021 01:30 PM Reporting Lab: [facility] [address] [facility] [address] Performing Lab: [facility] [address] [facility] [address] POC ACT 355 84-139 Nov 29, 2021 11:26 [facility] POC ABG/ELECTROLYTES Spec imen Type: ARTERIAL BLOOD AM Comment: Sample Type = ARTERIAL Ordering Provid er: IRENE BURNS TWO Report Released Date/Time: Nov 29, 2021 07:53 PM Reporting Lab: [facility] [address] [facility] [address] Performing Lab: [facility] [address] [facility] [address] POC PH 7.317 L 7.35-7.45 POC PCO2 52.3 H 35.00-45.00 POC PO2 81 80.0-105.0 POC TCO2 28 H 23.0-27.0 POC HCO3 26.8 H 22.0-26.0 POC BE ECT 1 -2 POC SO2 94 L 95-98 POC SODIUM 143 138.0-146.0 POC POTASSIUM 3.5 3.50-5.00 POC HGB 17.3 H 12.00-17.00 POC HCT 51 38.0-51.0 POC IONIZED CALCIUM 4.8 4.50-5.30 Nov 29, 2021 11:06 [facility] FINGERSTICK GLUCOSE Speci men Type: BLOOD AM No comment enter ed. Ordering Provid er: IRENE BURNS TWO Report Released Date/Time: Nov 29, 2021 08:08 PM Reporting Lab: [facility] [address] [facility] [address] Performing Lab: [facility] [address] [facility] [address] FINGERSTICK GLUCOSE 221 H 70-100 Nov 29, 2021 11:02 AM [facility] POC ACT Specim en Type: BLOOD No comment enter ed. Ordering Provid er: IRENE BURNS TWO Report Released Date/Time: Dec 03, 2021 01:30 PM Reporting Lab: [facility] [address] [facility] [address] Performing Lab: [facility] [address] [facility] [address] POC ACT 294 84-139 Nov 29, 2021 10:26 AM [facility] POC ACT Specim en Type: BLOOD No comment enter ed. Ordering Provid er: IRENE BURNS TWO Report Released Date/Time: Dec 03, 2021 01:30 PM Reporting Lab: [facility] [address] [facility] [address] Performing Lab: [facility] [address] [facility] [address] POC ACT 329 84-139 Nov 29, 2021 10:06 AM [facility] POC ACT Specim en Type: BLOOD No comment enter ed. Ordering Provid er: IRENE BURNS Report Released Date/Time: Dec 03, 2021 01:30 PM Reporting Lab: [facility] [address] [facility] [address] Performing Lab: [facility] [address] [facility] [address] POC ACT 312 84-139 Nov 29, 2021 09:58 [facility] POC ABG/ELECTROLYTES Spec imen Type: ARTERIAL BLOOD AM Comment: Sample Type = ARTERIAL Ordering Provid er: IRENE BURNS Report Released Date/Time: Nov 29, 2021 07:53 PM Reporting Lab: [facility] [address] [facility] [address] Performing Lab: [facility] [address] [facility] [address] POC PH 7.334 L 7.35-7.45 POC PCO2 48.7 H 35.00-45.00 POC PO2 96 80.0-105.0 POC TCO2 27 23.0-27.0 POC HCO3 25.9 22.0-26.0 POC BE ECT 0 -2 POC SO2 97 95-98 POC SODIUM 143 138.0-146.0 POC POTASSIUM 4.1 3.50-5.00 POC HGB 17.3 H 12.00-17.00 POC HCT 51 38.0-51.0 POC IONIZED CALCIUM 4.9 4.50-5.30 Nov 29, 2021 09:56 [facility] FINGERSTICK GLUCOSE Speci men Type: BLOOD AM No comment enter ed. Ordering Provid er: IRENE BURNS Report Released Date/Time: Nov 29, 2021 08:08 PM Reporting Lab: [facility] [address] [facility] [address] Performing Lab: [facility] [address] [facility] [address] [place] GLUCOSE 194 H 70-100 Nov 29, 2021 09:45 AM [facility] POC ACT Specim en Type: BLOOD No comment enter ed. Ordering Provid er: IRENE BURNS TWO Report Released Date/Time: Dec 03, 2021 01:30 PM Reporting Lab: [facility] [address] [facility] [address] Performing Lab: [facility] [address] [facility] [address] POC ACT 269 84-139 Nov 29, 2021 08:59 AM [facility] POC ACT Specim en Type: BLOOD No comment enter ed. Ordering Provid er: TEAM,CARDS TWO Report Released Date/Time: Dec 03, 2021 01:30 PM Reporting Lab: [facility] [address] [facility] [address] Performing Lab: [facility] [address] [facility] [address] POC ACT 135 84-139 Nov 29, 2021 [facility] COVID-19 AND FLU/RSV Specime n Type: NASOPHARYNGEAL 07:05 AM DIAG PANEL(CEPHEID) Comment: Ce pheid GeneXpert (618) Ordering Provid er: KATHERINE FIGUEROA Report Released Date/Time: Oct 29, 2021 12:22 PM Reporting Lab: [facility] [address] [facility] [address] Performing Lab: [facility] [address] [facility] [address] COVID-19 (CEPHEID) Not Detected Not Dete cted INFLUENZA A (PCR) Not Detected Not Detec susanne INFLUENZA B (PCR) Not Detected Not Detec susanne RSV (PCR) Not Detected Not Detected Nov 29, 2021 [facility] PROTHROMBIN Specimen Typ e: PLASMA 06:38 AM TIME/INR No comment enter ed. Ordering Provid er: KATHERINE FIGUEROA Report Released Date/Time: Oct 29, 2021 12:22 PM Reporting Lab: [facility] [address] [facility] [address] Performing Lab: [facility] [address] [facility] [address] .INR 1.1 0.8-1.1 .PT 13.1 H 9.4-12.5 Nov 29, 2021 [facility] ACT PART Specimen Typ e: PLASMA 06:38 AM THROMBO TIME No comment enter ed. Ordering Provid er: KATHERINE FIGUEROA Report Released Date/Time: Oct 29, 2021 12:22 PM Reporting Lab: [facility] [address] [facility] [address] Performing Lab: [facility] [address] [place] [address] APTT 33.3 25.1-36.5 Nov 29, 2021 [facility] BASIC METABOLIC Specimen Typ e: PLASMA 06:38 AM PANEL+MG No comment enter ed. Ordering Provid er: KATHERINE FIGUEROA Report Released Date/Time: Oct 29, 2021 12:22 PM Reporting Lab: [facility] [address] [facility] [address] Performing Lab: [facility] [address] CREATININE 1.4 H 0.7-1.2 UREA NITROGEN 23 8-26 GLUCOSE 201 H 74-100 SODIUM 143 136-145 POTASSIUM 4.3 3.5-5.1 CHLORIDE 108 H 98-107 CO2 28 22-29 CALCIUM 9.9 8.4-10.2 MAGNESIUM 1.9 1.6-2.6 ANION GAP 7 5-15 CREAT EGFR(CKD-EPI) 53 L >60 Nov 29, 2021 06:38 [facility] CBC Specimen Type: BLOOD AM No comment enter ed. Ordering Provid er: KATHERINE FIGUEROA Report Released Date/Time: Oct 29, 2021 12:22 PM Reporting Lab: [facility] [address] [facility] [address] Performing Lab: [facility] [address] WBC 7.40 4.0-11.0 RBC 5.17 4.6-6.2 HGB 17.6 13.5-17.9 HCT 52.7 41-54 MCV 101.9 H 80-100 MCH 34.0 H 27-33 MCHC 33.4 32.0-37.5 PLT 88 L 150-400 MPV 14.3 H 7.4-10.4 RDW 14.4 11.5-14.5 IPF 18.0 H 0-10 Social History: Smoking Status (Most current) and [...] 08:36 PM [facility] TOBACCO USE CURRENT NRT [facility] ACCEPT Tobacco Use History This section includes a history of the smoking, or tobacco- related health factors, that were collected on or before the date of the Encounter. The data comes from the [facility] where the Encounter took place. Date/Time Smoking Status/Tobacco Use Comment [facility] Mar 20, 2021 11:21 AM [facility] TOBACCO USE CURRENT NRT [facility] DECLINE Nov 15, 2020 10:00 AM VA-TOBACCO DOESNT USE WI 30 MIN [facility] WAKEUP Nov 15, 2020 10:00 AM VA-TOBACCO USE 30 YEARS OR MORE [facility] Nov 15, 2020 10:00 AM VA-TOBACCO USE ADVICE [place] [facility] Nov 15, 2020 10:00 AM VA-TOBACCO USE MANAGER GRANT NO [facility] Nov 15, 2020 10:00 AM VA-TOBACCO USE MED NO [place] [facility] Nov 15, 2020 10:00 AM VA-TOBACCO USER EVERY DAY [facility] Jun 21, 2019 02:29 PM VA-TOBACCO USE 30 YEARS OR MORE [facility] Jun 21, 2019 02:29 PM VA-TOBACCO USE ADVICE [place] [facility] Jun 21, 2019 02:29 PM VA-TOBACCO USE MANAGER GRANT NO [facility] Jun 21, 2019 02:29 PM VA-TOBACCO USE MED NO [place] [facility] Jun 21, 2019 02:29 PM VA-TOBACCO USE WI 30 MIN OF WAKEUP [facility] Jun 21, 2019 02:29 PM VA-TOBACCO USER EVERY DAY [facility] Jun 09, 2018 03:48 PM VA-TOBACCO USE 30 YEARS OR MORE [facility] Jun 09, 2018 03:48 PM VA-TOBACCO USE ADVICE [place] [facility] Jun 09, 2018 03:48 PM VA-TOBACCO USE MANAGER GRANT NO [facility] Jun 09, 2018 03:48 PM VA-TOBACCO USE MED NO [place] [facility] Jun 09, 2018 03:48 PM VA-TOBACCO USE [place] 30 MIN OF WAKEUP [facility] Jun 09, 2018 03:48 PM VA-TOBACCO USER EVERY DAY [facility] Jun 20, 2017 07:53 AM CURRENT TOBACCO USER [facility] Jun 19, 2016 08:41 AM CURRENT TOBACCO USER [facility] Jun 21, 2015 08:15 AM CURRENT TOBACCO USER [facility] Mar 22, 2014 10:03 AM CURRENT TOBACCO USER [facility] Mar 25, 2013 11:01 AM CURRENT TOBACCO USER [facility] Feb 05, 2012 08:55 AM CURRENT TOBACCO USER [facility] January 01, 2011 09:26 AM CURRENT TOBACCO USER [facility] Mar 07, 2010 10:02 AM CURRENT TOBACCO USER [facility] Feb 21, 2009 08:17 AM CURRENT TOBACCO USER [facility] Nov 06, 2007 10:02 AM CURRENT TOBACCO USER [facility] January 02, 2007 10:33 AM CURRENT TOBACCO USER [facility] Advance Directives: All historical and current Section [...] Mar 06, 2005 ADVANCE DIRECTIVE GANESH RODRIGUEZ [facility] Radiology Reports: +/- 30 days [...] the Encounter. The data comes from all [place] treatment facilities. Date/Time Radiology Report Provider Source Nov 30, 2021 07:05 AM CHEST 2 VIEWS PA AND LAT: MONET LUDWIG [facility] [place] [id number] -[birth year] M Exm Date: NOV 30, 2021@07:05 Req Phys: CHERRY MENDOZA Loc: 3LSOB/ 2@08:05 Img Loc: MAIN X-RAY Service: zzcard sect (Case [id number] COMPLETE) CHEST 2 VIEWS PA AND LAT (R AD Detailed) CPT:63181 Reason for Study: s/p upgrade ICD adding [...] pager listed below: User placing orders pager: [phone] LAST CREATININE 1.4 H (11/29/21) Report Status: Verified Date Reported: NOV 30, 2021 Date Verified: NOV 30, 2021 Environmental Research Project Manager E-Sig:/ES/MONET LUDWIG MD, FACR, C CD [...] 06:25 PM CHEST 1 VIEW: MAGDALENE DAVIDSON [facility] [place] [id number] -[birth year] 9 M Exm Date: NOV 29, 2021@18:25 Req Phys: CHERRY MENDOZA Pat Loc: [facility] [address] (Req'g Loc) Img Loc: MAIN X-RAY Service: Unknown (Case [id number] COMPLETE) CHEST 1 VIEW (RAD Detailed) CPT:51532 Reason for Study: s/p upgrade ICD adding [...] pager listed below: User placing orders pager: [phone] LAST CREATININE 1.4 H (11/29/21) Report Status: Verified Date Reported: NOV 29, 2021 Date Verified: NOV 29, 2021 Environmental Research Project Manager E-Sig:/ES/MAGDALENE DAVIDSON MD Report: DATE/TIME REGISTERED: [...] Primary Interpreting Staff: MAGDALENE DAVIDSON MD, RADIOLOGIST (Environmental Research Project Manager) /LUAN Encounter Notes: All associated encounter notes This section contains the clinical notes associated to the Encounter. Date/Time Encounter Note(s) Provider Source Dec 21, 2021 09:30 AM MUSIC CATALOGUER NOTE: NIKI FATIMA [facility] LOCAL TITLE: DIABETES MUSIC CATALOGUER NOTE STANDARD TITLE: MUSIC CATALOGUER NOTE DATE OF NOTE: DEC 21, 2021@09:30 ENTRY DATE: DEC 21, 2021@09:18:05 AUTHOR: NIKI FATIMA EXP COSIGNER: URGENCY: STATUS: COMPLETED DIABETES MUSIC CATALOGUER NOTE Has ADDENDA Visit Type: phone PAUL MICHELE is a 76 YO MALE followed by [facility] for medication management. SUBJECTIVE: Reports things are going real good. Miguel vering well from recent cardiac device upgrade surgery. Reports missed his semaglutide dose this week. Will keep his box with his open pen near his medications to he lp remind him to take on Mondays. Has been cutting down on sweets. Patient Goals: take semaglutide each week ROS: (-) hypoglycemia symptoms (-) hyperglycemia symptoms SMBG Readings: Date AM 12/21 169 12/20 124 12/19 186 12/18 136 12/17 159 12/16 167 12/15 162 12/14 182 12/13 160 12/12 144 12/11 164 12/10 140 12/09 196 12/08 152 12/07 152 12/06 147 Avg 159 Current DM Medications: - empagliflozin 25mg qday - glipizide 10mg 2 tabs BID - metformin 1000mg BID - semaglutide 1mg SQ qweek *takes on Mondays Adherence to medications: december miss semaglutide OBJECTIVE: ALLERGIES/ADR: LISINOPRIL (Nov 09, 2007) MEDICATION RECONCILIATION: Active and Recently Outpatient Medicatio [...] METOPROLOL SUCCINATE 200MG SA TAB TAKE ONE-H SHELTER ACTIVE TABLET BY MOUTH EVERY DAY FOR [...] TS CLAW ACTIVE MOUTH 20 Total Medications Vitals: Temperature: 99.0 F [37.2 C] (11/30/2021 [...] 65.79 H mg/g creat 0 - 30 SGOT 28 (02/19/21) SGPT 32 (02/19/21) Collection DT Spec WBC HGB HCT PLT MCV 11/30/2021 05:30 BLOOD 10.61 14.6 45.2 71 L 104. 4 H 11/29/2021 06:38 BLOOD 7.40 17.6 52.7 88 L 101.9 H 06/18/2021 11:52 BLOOD 7.85 16.8 51.9 98 L 104.6 H ASSESSMENT: #DM Goal A1c <8% (FBG 80-160, PPG <210) d/t comorbid ities per VA/DoD guidelines. 's average FBG near goal. Adherence to se maglutide is still a barrier, discussed further strategies such as writing when to take it on his calendar and crossing it off once he gave the medication, or keeping the open pen with his other medications to remind him to take it on Mondays. Continue current regimen with emphasis on adherence to semaglutide. PLAN: - work on strategies to increase semaglutide ad herence #Disease-Specific Med Rec: Completed today #Labs: will order A1c once consistent with semag lutide dose - Education provided on therapeutic nonpharmacol ogic management to achieve goals. - verbalized underst anding to all plans discussed today. Questions were answered to vet's satisfaction. Time spent: 12 minutes RTC: 02/07 at 9:30am /billy/ NIKI FATIMA Distribution Spec Signed: 12/21/2021 13:39 Receipt Acknowledged By: 12/21/2021 15:38 /billy/ JAYY SAMS Pharmacist 12/21/2021 ADDENDUM STATUS: COMPLETED In area supervision Agree with trainee note with comments below. Nature of encounter: Type 2 Diabetes Clinical thinking, assessment and treatment plan : [place] with a history of ty pe 2 diabetes. SMBG improving. Continues to struggle with adherence. Reviewed alternative methods to help improve. No changes in regimen today. Will schedule A1C once adherence to regimen is better. /billy/ JAYY SAMS Pharmacist Signed: 12/21/2021 15:35
--- OUTSIDE RECORDS SUMMARY | 2022-04-02 16:09 | XMS_ITS | Encounter Summary ---
:1945 Author Organization [facility] Address [address] [place] [address] Care Team Providers Name Role Phone WILLA [...] MEDICARE MEDICARE PART Jun 25, PART B [id number] Saumya QUINONES PATIENT (WNR) (M) B 2011 78A 0 AVID MEDICARE MEDICARE PART Sep 25, PART A [id number] Saumya QUINONES PATIENT (WNR) (M) A 2009 78A 0 AVID MEDICARE MEDICARE PART Sep 25, PART A [id number] Saumya MICHELE (WNR) (M) A 2009 78A [phone] AVID MEDICARE MEDICARE PART Sep 25, PART B [id number] Saumya MICHELE (WNR) (M) B 2009 78A [phone] AVID Selected Encounter This section includes the information on record at [place] for the Encounter. Date/Time Encounter Type Encounter Reason Provider Source Description January 18, 2022 Outpatient HT NON-VIDEO ICD-10-CM I50.9 DOE BURDICK 08:35 AM Encounter MONITORING Heart failure, N M unspecified with Provider Comments: Heart Failure, unspecified IHE Encounter Template Text not used by [place] Assessments - Encounter Diagnoses This section includes the primary and secondary diagnoses documented for the Encounter. Date/Time Primary/Secondary Diagnosis Name Provider Source Diagnosis January 18, 2022 PRIMARY Heart failure, NILESH BURDICK [facility] 08:40 AM unspecified [facility] Plan of Treatment: Future Appointments (+ 6 months) and Future Tests (+/- 45 days) The Plan of Treatment section includes future care activities for the patient from all [place] [facility]. This section includes future appointments and future orders which are active, pending orscheduled.Future Appointments This section includes appointments that were scheduled to occur 6 months from the date of the Encounter, up to a maximum of 20 appointments. The data comes from all [place] treatment facilities. Appointment Date/Time Appointment Type Appointment Facili ty Name Feb 05, 2022 07:00 AM AMBULATORY - [facility] Feb 07, 2022 09:30 AM AMBULATORY [facility] Feb 13, 2022 10:00 AM AMBULATORY [facility] Mar 21, 2022 09:30 AM [facility] Active, Pending, and Scheduled Orders This section includes a listing of several types of active, pending, and scheduled orders, including clinic medications orders, diagnostic test orders, procedure orders and consult orders; where the start date of the order is 45 days before the date of the Encounter or 45 days after the date of the Encounter. The data comes from all [facility]. Test Date/Time Test Type Test Details Facility Name Dec 15, 2021 12:00 AM Laboratory - Chemistry BASIC METABOLIC MIN [facility] Order PANEL+MG PLASMA SP Lab Results: [...] Range Comment Feb 13, 2022 09:[address] [facility] HEMOGLOBIN A1C Specim en Type: BLOOD No comment enter ed. Ordering Provid er: JAYY SAMS Report Released Date/Time: Feb 07, 2022 04:30 PM Reporting Lab: [facility] [place] [facility] [id number] Performing Lab: [facility] [place] [place] [facility] [id number] HEMOGLOBIN A1C 8.5 H 4.0-6.0 Social History: [...] 08:36 PM VA-VAAES TOBACCO USE CURRENT NRT [facility] ACCEPT Tobacco Use History This section includes a history of the smoking, or tobacco- related health factors, that were collected on or before the date of the Encounter. The data comes from the [place] facility where the Encounter took place. Date/Time Smoking Status/Tobacco Use Comment [facility] Mar 20, 2021 11:21 AM VA-VAAES TOBACCO USE CURRENT NRT [facility] DECLINE Nov 15, 2020 10:00 AM VA-TOBACCO DOESNT USE [place] [address] [facility] WAKEUP Nov 15, 2020 10:00 AM VA-TOBACCO USE [address] 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 Nov 15, 2020 10:00 AM VA-TOBACCO USE MED NO [place] [facility] Nov 15, 2020 10:00 AM VA-TOBACCO USER EVERY DAY [facility] Jun 21, 2019 02:29 PM VA-TOBACCO USE [address] 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 Jun 21, 2019 02:29 PM VA-TOBACCO USE MED NO [place] [facility] Jun 21, 2019 02:29 PM VA-TOBACCO [place] [address] [facility] Jun 21, 2019 02:29 PM VA-TOBACCO USER EVERY DAY [facility] Jun 09, 2018 03:48 PM VA-TOBACCO USE [address] 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 Jun 09, 2018 03:48 PM VA-TOBACCO USE MED NO [place] [facility] Jun 09, 2018 03:48 PM VA-TOBACCO USE [place] [address] [facility] Jun 09, 2018 03:48 PM VA-TOBACCO USER EVERY DAY [facility] Jun 20, 2017 07:53 AM CURRENT TOBACCO USER [facility] Jun 19, 2016 08:41 AM CURRENT TOBACCO USER [facility] Jun 21, 2015 08:15 AM CURRENT TOBACCO USER [facility] Mar 22, 2014 10:03 AM CURRENT TOBACCO USER [facility] Mar 25, 2013 11:01 AM CURRENT TOBACCO USER [facility] Feb 05, 2012 08:55 AM CURRENT TOBACCO USER [facility] January 01, 2011 09:26 AM CURRENT TOBACCO USER [facility] Mar 07, 2010 10:02 AM CURRENT TOBACCO USER [facility] Feb 21, 2009 08:17 AM CURRENT TOBACCO USER [facility] Nov 06, 2007 10:02 AM CURRENT [...] 06, 2005 ADVANCE DIRECTIVE GANESH RODRIGUE[address] [facility] Encounter Notes: All associated encounter notes This section contains the clinical notes associated to the Encounter. Date/Time Encounter Note(s) Provider Source January 18, 2022 08:35 AM CARE COORDINATION HOME TELEHEALTH [facility] NOTE: NILESH BURDICK [facility] LOCAL TITLE: HT MONTHLY MONITOR NOTE STANDARD TITLE: CARE COORDINATION HOME TELEHEALT H SUMMARIZATION DATE OF NOTE: JANUARY 18, 2022@08:35 ENTRY DATE: JANUARY 18, 2022@08:35:12 AUTHOR: NILESH BURDICK EXP COSIGNER: URGENCY: STATUS: COMPLETED The [facility] is enrolled in the Home Telehealth ( HT) program and continues to be monitored via HT technology. The data sent by the [facility] is reviewed and analyzed by the staff, who provide ongoin g case management and [facility] health education while communicating and collaborating with the health care team as appropriate. This note cover s a total of 30 minutes for the month monitored. Month monitored: December /billy/ NILESH BURDICK RN Chronic Ham Rolling Machine Operator/ Signed: 01/18/2022 08:40
--- OUTSIDE RECORDS SUMMARY | 2022-04-02 16:09 | XMS_ITS | Encounter Summary ---
:1945 Author Organization Department [facility] Address [address] [place] [id number] Care Team Providers Name Role Phone SAKSHI [...] MEDICARE MEDICARE PART Jun 25, PART B [id number] Saumya QUINONES PATIENT (WNR) (M) B 2011 78A 0 AVID MEDICARE MEDICARE PART Sep 25, PART A [id number] Saumya QUINONES PATIENT (WNR) (M) A 2009 78A 0 AVID MEDICARE MEDICARE PART Sep 25, PART A [id number] Saumya MICHELE (WNR) (M) A 2009 78A [phone] AVID MEDICARE MEDICARE PART Sep 25, PART B [id number] Saumya MICHELE (WNR) (M) B 2009 [id number] [phone] AVID Selected Encounter This section includes the information on record at [place] for the Encounter. Date/Time Encounter Type Encounter Reason Provider Source Description January 08, 2022 HC PRO PHONE TELEPHONE PRIMARY ICD-10-CM I50.9 KERON BURDICK 02:59 PM CALL 11-20 MIN CARE Heart failure, M unspecified with Provider Comments: Heart Failure, unspecified IHE Encounter Template Text not used by [place] Assessments - Encounter Diagnoses This section includes the primary and secondary diagnoses documented for the Encounter. Date/Time Primary/Secondary Diagnosis Name Provider Source Diagnosis January 08, 2022 PRIMARY Heart failure, NILESH BURDICK [facility] 02:59 PM unspecified [facility] Plan of Treatment: Future Appointments (+ 6 months) and Future Tests (+/- 45 days) The Plan of Treatment section includes future care activities for the patient [facility] This section includes future appointments and future orders which are active, pending orscheduled.Future Appointments This section includes appointments that were scheduled to occur 6 months from the date of the Encounter, up to a maximum of 20 appointments. The data comes from all [facility]. Appointment Date/Time Appointment Type Appointment Facili ty Name Feb 05, 2022 07:00 AM AMBULATORY - [facility] Feb 07, 2022 09:30 AM AMBULATORY [facility] Feb 13, 2022 10:00 AM AMBULATORY [facility] Mar 21, 2022 09:30 AM AMBULATORY [facility] Active, Pending, and Scheduled Orders This section includes a listing of several types of active, pending, and scheduled orders, including clinic medications orders, diagnostic test orders, procedure orders and consult orders; where the start date of the order is 45 days before the date of the Encounter or 45 days after the date of the Encounter. The data comes from all [facility]. Test Date/Time Test Type Test Details Facility Name Nov 29, 2021 06:30 AM Laboratory - Blood Bank TYPE & SCREEN - [place] [facility] Order BLOOD SP Dec 15, 2021 12:00 AM Laboratory - Chemistry BASIC METABOLIC [facility] Order PANEL+MG PLASMA SP Social History: Smoking Status (Most current) and Tobacco Use (All prior to encounter date) This section includes the most current, and the historical, smoking and tobacco-related health factors from the [place] facility where the Encounter took place.Current Smoking Status This section includes the most current smoking, or tobacco-related health factor, from the [place] facility where the Encounter took place. Date/Time Current Smoking Status Comment Facility Nov 29, 2021 08:36 PM [facility] TOBACCO USE CURRENT NRT [facility] ACCEPT Tobacco Use History This section includes a history of the smoking, or tobacco- related health factors, that were collected on or before the date of the Encounter. The data comes from the [place] facility where the Encounter took place. 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 [facility] Nov 15, 2020 10:00 AM VA-TOBACCO USE MED NO [facility] Nov 15, 2020 10:00 AM VA-TOBACCO USER EVERY DAY [facility] Jun 21, 2019 02:29 PM VA-TOBACCO USE 30 YEARS OR MORE [facility] Jun 21, 2019 02:29 PM VA-TOBACCO USE ADVICE [facility] Jun 21, 2019 02:29 PM VA-TOBACCO USE WHEEL BORER NO [facility] Jun 21, 2019 02:29 PM VA-TOBACCO USE MED NO [facility] Jun 21, 2019 02:29 PM VA-TOBACCO USE WI 30 MIN OF WAKEUP [facility] Jun 21, 2019 02:29 PM VA-TOBACCO USER EVERY DAY [facility] Jun 09, 2018 03:48 PM VA-TOBACCO USE 30 YEARS OR MORE [facility] Jun 09, 2018 03:48 PM VA-TOBACCO USE ADVICE [facility] Jun 09, 2018 03:48 PM VA-TOBACCO USE WHEEL BORER NO [facility] Jun 09, 2018 03:48 PM VA-TOBACCO USE MED NO [facility] Jun 09, 2018 03:48 PM VA-TOBACCO USE WI 30 MIN OF WAKEUP [facility] Jun 09, 2018 03:48 PM VA-TOBACCO USER EVERY DAY [facility] Jun 20, 2017 07:53 AM CURRENT TOBACCO USER [facility] Jun 19, 2016 08:41 AM CURRENT TOBACCO USER [facility] Jun 21, 2015 08:15 AM CURRENT TOBACCO USER [facility] Mar 22, 2014 10:03 AM CURRENT TOBACCO USER [facility] Mar 25, 2013 11:01 AM CURRENT TOBACCO USER [facility] Feb 05, 2012 08:55 AM CURRENT TOBACCO USER [facility] January 01, 2011 09:26 AM CURRENT [...] ALL of a patient's completed or amended [place] Advance and Rescinded Directives. The entries below indicate that a directive exists for the patient, but an actual copy is not included with this document. The data comes from all [place] facilities. Date Advance Directives Provider Source Mar 06, 2005 ADVANCE DIRECTIVE MICHAELGANESH [facility] Encounter Notes: All associated encounter notes This section contains the clinical notes associated to the Encounter. Date/Time Encounter Note(s) Provider Source January 08, 2022 02:59 PM CARE COORDINATION HOME TELEHEALTH REPO RT: NILESH BURDICK [facility] LOCAL TITLE: HT PERIODIC EVALUATION NOTE STANDARD TITLE: CARE COORDINATION HOME TELEHEALT H REPORT DATE OF NOTE: JANUARY 08, 2022@14:59 ENTRY DATE: JANUARY 08, 2022@14:59:52 AUTHOR: NILESH BURDICK EXP COSIGNER: URGENCY: STATUS: COMPLETED HOME TELEHEALTH (HT) PERIODIC EVALUATION NOTE Provider: This information is sent for your revi ew and any further recommendations in regards to the HT Plan of Karl barrera HT (HOME TELEHEALTH) [C] 06/26/2021 Ht Enrollment-Start Date 06/26/2021 Ht Clinical Reason For Enrollment HF 'S CURRENT HT CATEGORY OF CARE: Non-Institutional Intermediate Monitoring technology assigned: Other Vendor: [employer] Peripheral Device(s): Blood pressure Monitor with pulse Entry: Cabled Digital Scale Entry: Cabled Non-pharmacy provided Blood Glucose Meter Entry: Cabled SUMMARY SINCE LAST REVIEW: [place] in good spirits drinking a Brigitte and Coke with his friend...Unable to review Lasix order I gotta nurse that sets those up.... Is aware that he takes Glipizide twice daily, Metformin and Semaglutide 1 shot on Mondays... SOB is uncha nged and he has no swelling in his LE. Does not wear compression s tockings. Limits his salt I don't use salt at all... and he has also cu t down on the sweets he eats at night. Blood sugar has been stable. Average blood sugar is 150 though he only checks in the morning. Weight & BP stable. [place] feels he is moderately active. My girlfriend makes sure of it... He uses a tracking device for his steps. Drinks alcohol a couple days a week & smokes too much. [place] will follow-up with Pharmacist for phon e appt. February 07 and has a recall with Dr. Pelaez at the end of November? Fannie mancilla scheduled yet. Patient Name: PAUL MICHELE Disease(s): CHF Date Range: 12/23/2021 - 01/08/2022 [facility] Vitals Report Reading Date Sys/Aracely BP-HR Weight BG 01/08/22 118/69 (06:01) 41 (06:01) 216.4 (06:02) 137 (05:52) 01/07/22 135/87 (05:05) 97 (05:05) 216.0 (05:06) 136 (04:59) 01/06/22 122 (05:26) 01/05/22 169 (06:15) 01/04/22 128/98 (08:13) 91 (08:13) 216.0 (08:14) 172 (06:05) 01/03/22 165 (05:47) 12/30/21 173 (04:40) 12/29/21 96 (05:00) 12/29/21 95 (04:58) 12/28/21 190 (05:37) 12/27/21 104/63 (05:36) 106 (05:36) 216.6 (05:37 ) 152 (05:31) 12/26/21 119/86 (05:59) 94 (05:59) 216.8 (06:00) 130 (05:54) 12/24/21 167 (05:04) 12/23/21 178 (04:43) Blood Glucose Readings: Date 05:00-11:30 11:30-16:00 16:00-18:30 18:30-2 3:00 23:00-05:00 01/08/22 137(05:52) 01/07/22 136(04:59) 01/06/22 122(05:26) 01/05/22 169(06:15) 01/04/22 172(06:05) 01/03/22 165(05:47) 12/30/21 173(04:40) 12/29/21 96(05:00) 95(04:58) 12/28/21 190(05:37) 12/27/21 152(05:31) 12/26/21 130(05:54) 12/24/21 167(05:04) 12/23/21 178(04:43) [facility] Average Report Sys/Aracely BP-HR Weight BG Average 121/81 86 216.4 149 High 135/98 106 216.8 190 Low 104/63 41 216.0 95 Blood Glucose Summary: 05:00-11:30 11:30-16:00 16:00-18:30 18:30-23:00 23:00-05:00 Average 150 146 High 190 178 Low 96 95 HEALTH STATUS and REVIEW OF SYSTEMS: Heart Failure/CAD: Shortness of breath...............Same Edema.............................None Dizziness.........................None Chest pain/palpitations...........None Cough (productive/nonproductive)..Same Fatigue...........................Same Abdominal distension..............Same Increased urination...............No Decreased urination...............No Diabetes: Hyperglycemia: Increase thirst...................No Dizziness/Lightheaded.............No Vision changes....................No Fatigue...........................No Polyuria..........................No Hypoglycemia: Diaphoretic.......................No Dizzy/Lightheaded.................No Vision changes....................No Shakiness.........................No Confusion.........................No Is the [place] on Oxygen? No PROGRESS TOWARDS GOAL(S): Making progress toward at least one goal. DISEASE SPECIFIC INTERVENTIONS: Cardiac: Educated on HF symptoms (when to seek medical a ttention/when to call care coordination or healthcare team) Reviewed importance of medication compliance/re port any medication concerns Reviewed with patient parameters for fluid rest riction 2 liters Educated patient on sodium restriction 2 grams Reviewed with patient hidden sodium without chris bee a salt shaker/avoid foods and beverages high in sodium Provided support and Encouragement Encouraged to report health concerns and/or see k medical attention if needed UPDATE OF GOALS AND CARE COORDINATION INTERVENT ION PLAN: Demonstrate self-management in the care of his HF/DM in the next 3 months. Limit sodium to <2000 mg of sodium & dr pascual no more than 64 ounces of fluid daily. Limit sweets & increase activity t o help regulate blood sugar. The [place] does not get prescriptions from out side providers. Is the [place] taking other medications includi ng over the counter medications? Yes, Vitamins These medications are listed in the Non-VA medi cations list in CPRS. /caregiver has a current list of active medications. The [place] and/or caregiver does not have ques tions about medications. MEDICATION INTERVENTIONS: Other: He only knows his DM medication not familiar wi th all of his meds EMERGENCY MANAGEMENT (DUE TO ENVIRONMENTALLY-RE LATED OR TECHNOLOGY -RELATED EMERGENCIES) - PATIENT CLASSSIFICATION /PRIORITY LEVEL: Level 2 (Moderate Priority) - Need to be evalua susanne within 3-7 days A. Veterans who are able to manage for 3-7 days without HT intervention. PATIENT'S LIVING SITUATION With whom does the patient live? Patient lives with child. Spouse does not live w ith them. Where does the patient live? Patient lives in a private home. INSTRUMENTAL ACTIVITIES OF DAILY LIVING In the last 7 days, has the patient expressed di fficulty with the following activities? Patient has expressed difficulty with managing m edications. BASIC ACTIVITIES OF DAILY LIVING In the last 7 days, has the patient required help or supervision to perform any of the following activities? Independent. Son & Granddaughter live with him & help if need ed. COGNITIVE STATUS In the last 7 days was the patient able, without difficulty, to make decisions that are reasonable about organizing the day, flynn ch as when to get up, what meals to have or what clothe s to wear, or frequent medication errors, or unable to comply with treatment plan consistently due t o cognitive status, etc.? Yes, patient consistently made reasonable decisi ons without difficulty. In the last 7 days, has the patient usually been able to make himself/herself understood? Yes, patient's expression of information is unde rstood, even if he/she has difficulty in finding words or finishing thought s. NON INSTITUTIONAL CARE SCORING SUMMARY JESI Criteria: Patient does meet JESI Criteria. TYPE OF ENCOUNTER: Telephone Length of call: 11-20 minutes /billy/ NILESH BURDICK RN Chronic Insurance Sales Manager/HT Signed: 01/09/2022 07:54 Receipt Acknowledged By: * AWAITING SIGNATURE * VICENTE PELAEZ * AWAITING SIGNATURE * NIKI FATIMA
--- OUTSIDE RECORDS SUMMARY | 2022-04-02 16:09 | XMS_ITS | Encounter Summary ---
:[address] [facility] Address [address] [place], [place] [id number] Care Team Providers Name Role Phone WILLA [...] MEDICARE MEDICARE PART Jun 25, PART B [id number] Saumya QUINONES PATIENT (WNR) (M) B 2011 78A 0 AVID MEDICARE MEDICARE PART Sep 25, PART A [id number] Saumya QUINONES PATIENT (WNR) (M) A 2009 78A 0 AVID MEDICARE MEDICARE PART Sep 25, PART A [id number] Saumya MICHELE (WNR) (M) A 2009 78A [id number] AVID MEDICARE MEDICARE PART Sep 25, PART B [id number] Saumya MICHELE ATTHOMAS (WNR) (M) B 2009 [id number] [id number] AVID Selected Encounter This section includes the information on record at [place] for the Encounter. Date/Time Encounter Type Encounter Description Reason Provider Source Nov 29, 2021 07:30 Outpatient CARDIAC CATHETERIZATION AM Encounter [facility] Encounter Template Text not used by [facility] Plan of Treatment: Future Appointments (+ 6 months) and Future Tests (+/- 45 days) The Plan of Treatment section includes future care activities for the patient from [facility] [place] [facility] This section includes future appointments and future orders which are active, pending orscheduled.Future Appointments This section includes appointments that were scheduled to occur 6 months from the date of the Encounter, up to a maximum of 20 appointments. The data comes from all [facility]. Appointment Date/Time Appointment Type Appointment Facili ty Name Dec 21, 2021 09:30 AM AMBULATORY - NONE [facility] January 07, 2022 01:30 PM AMBULATORY - MEDICINE [facility] Feb 05, 2022 07:00 AM AMBULATORY - NONE [facility] Feb 07, 2022 09:30 AM AMBULATORY - NONE [facility] Feb 13, 2022 10:00 AM AMBULATORY [facility] Mar 21, 2022 09:30 AM AMBULATORY [facility] Active, Pending, and Scheduled Orders This section includes a listing of several types of active, pending, and scheduled orders, including clinic medications orders, diagnostic test orders, procedure orders and consult orders; where the start date of the order is 45 days before the date of the Encounter or 45 days after the date of the Encounter. The data comes from all [facility]. Test Date/Time Test Type Test Details Facility Name Nov 29, 2021 06:30 AM Laboratory - Blood Bank TYPE & SCREEN - LA B [facility] Order BLOOD SP Dec 15, 2021 12:00 AM Laboratory - Chemistry BASIC METABOLIC [facility] Order PANEL+MG PLASMA SP Lab Results: [...] Reference Range Comment Nov 30, 2021 11:26 [facility] FINGERSTICK GLUCOSE Speci men Type: BLOOD AM Comment: [place] Nurse Notified Ordering Provid er: TEAM,CARDS TWO Report Released Date/Time: Nov 30, 2021 11:46 AM Reporting Lab: [facility] [address] Performing Lab: [facility] [address] FINGERSTICK GLUCOSE 284 mg/dL H 70-100 Nov 30, 2021 09:47 AM [facility] ALBUMIN Specim en Type: PLASMA No comment enter ed. Ordering Provid er: ELIUD DINERO Report Released Date/Time: Nov 29, 2021 07:53 PM Reporting Lab: [facility] [address] [facility] [address] Performing Lab: [facility] [address] [facility] [address] ALBUMIN 3.4 g/dL L 3.5-5.2 Nov 30, 2021 09:47 [facility] BASIC METABOLIC Specimen Type: PLASMA AM PANEL+MG No comment enter ed. Ordering Provid er: ANGIE MALHOTRA Report Released Date/Time: Nov 29, 2021 08:12 PM Reporting Lab: [facility] [address] [facility] [address] Performing Lab: [facility] [address] [facility] [address] CREATININE 1.2 mg/dL 0.7-1.2 UREA NITROGEN 18 mg/dL 8-26 GLUCOSE 342 mg/dL H 74-100 SODIUM 141 mmol/L 136-145 POTASSIUM 4.3 mmol/L 3.5-5.1 CHLORIDE 108 mmol/L H 98-107 CO2 26 mmol/L 22-29 CALCIUM 8.6 mg/dL 8.4-10.2 MAGNESIUM 1.5 mg/dL L 1.6-2.6 ANION GAP 7 mmol/L 5-15 CREAT EGFR(CKD-EPI) 63 >60 Nov 30, 2021 09:46 AM [facility] CBC Specim en Type: BLOOD No comment enter ed. Ordering Provid er: ANGIE MALHOTRA Report Released Date/Time: Nov 29, 2021 08:12 PM Reporting Lab: [facility] [address] [facility] [address] Performing Lab: [facility] [address] [facility] [address] WBC 10.61 10*3/uL 4.0-11.0 RBC 4.33 10*6/uL L 4.6-6.2 HGB 14.6 g/dL 13.5-17.9 HCT 45.2 41-54 MCV 104.4 fL H 80-100 MCH 33.7 pg H 27-33 MCHC 32.3 g/dL 32.0-37.5 PLT 71 10*3/uL L 150-400 MPV 13.9 fL H 7.4-10.4 RDW 14.7 H 11.5-14.5 IPF 17.8 H 0-10 Nov 30, 2021 06:09 [facility] FINGERSTICK GLUCOSE Speci men Type: BLOOD AM Comment: [place] Nurse Notified Ordering Provid er: IRENE BURNS TWO Report Released Date/Time: Nov 30, 2021 06:32 AM Reporting Lab: [facility] [address] [facility] [address] Performing Lab: [facility] [address] [facility] [address] FINGERSTICK GLUCOSE 165 mg/dL H 70-100 Nov 29, 2021 07:35 [facility] FINGERSTICK GLUCOSE Speci men Type: BLOOD PM Comment: [place] Nurse Notified Ordering Provid er: IRENE BURNS TWO Report Released Date/Time: Nov 29, 2021 07:48 PM Reporting Lab: [facility] [address] [facility] [address] Performing Lab: [facility] [address] [facility] [address] FINGERSTICK GLUCOSE 160 mg/dL H 70-100 Nov 29, 2021 06:52 [facility] FINGERSTICK GLUCOSE Speci men Type: BLOOD PM Comment: [place] Nurse Notified Ordering Provid er: SAKSHI CROUCH Report Released Date/Time: Nov 29, 2021 07:04 PM Reporting Lab: [facility] [address] [facility] [address] Performing Lab: [facility] [address] [facility] [address] FINGERSTICK GLUCOSE 161 mg/dL H 70-100 Nov 29, 2021 04:18 [facility] FINGERSTICK GLUCOSE Speci men Type: BLOOD PM No comment enter ed. Ordering Provid er: IRENE BURNS TWO Report Released Date/Time: Nov 29, 2021 08:08 PM Reporting Lab: [facility] [address] [facility] [address] Performing Lab: [facility] [address] [facility] [address] FINGERSTICK GLUCOSE 179 mg/dL H 70-100 Nov 29, 2021 03:26 [facility] POC ABG/ELECTROLYTES Spec imen Type: ARTERIAL BLOOD PM Comment: Sample Type = ARTERIAL Ordering Provid er: IRENE BURNS TWO Report Released Date/Time: Nov 29, 2021 07:53 PM Reporting Lab: [facility] [address] Performing Lab: [facility] [address] POC PH 7.321 L 7.35-7.45 POC PCO2 [...] mg/dL L 4.50-5.30 Nov 29, 2021 03:24 [facility] FINGERSTICK GLUCOSE Speci men Type: BLOOD PM Comment: Save R esult Ordering Provid er: TEAM,CARDS TWO Report Released Date/Time: Nov 29, 2021 08:08 PM Reporting Lab: [facility] [address] Performing Lab: [facility] [address] FINGERSTICK GLUCOSE 188 mg/dL H 70-100 Nov 29, 2021 02:06 [facility] POC ABG/ELECTROLYTES Spec imen Type: ARTERIAL BLOOD PM Comment: Sample Type = ARTERIAL Ordering Provid er: TEAM,CARDS TWO Report Released Date/Time: Nov 29, 2021 07:53 PM Reporting Lab: [facility] [address] Performing Lab: [facility] [address] POC PH 7.313 L 7.35-7.45 POC PCO2 [...] mg/dL L 4.50-5.30 Nov 29, 2021 02:04 [facility] FINGERSTICK GLUCOSE Speci men Type: BLOOD PM Comment: Save R esult Ordering Provid er: IRENE BURNS Report Released Date/Time: Nov 29, 2021 08:08 PM Reporting Lab: [facility] [address] [facility] [address] Performing Lab: [facility] [address] [facility] [address] FINGERSTICK GLUCOSE 236 mg/dL H 70-100 Nov 29, 2021 01:52 PM [facility] POC ACT Specim en Type: BLOOD No comment enter ed. Ordering Provid er: IRENE BURNS Report Released Date/Time: Dec 03, 2021 01:31 PM Reporting Lab: [facility] [address] [facility] [address] Performing Lab: [facility] [address] [facility] [address] POC ACT 135 s 84-139 Nov 29, 2021 01:16 PM [facility] POC ACT Specim en Type: BLOOD No comment enter ed. Ordering Provid er: IRENE BURNS Report Released Date/Time: Dec 03, 2021 01:30 PM Reporting Lab: [facility] [address] [facility] [address] Performing Lab: [facility] [address] [facility] [address] POC ACT 355 s 84-139 Nov 29, 2021 12:49 PM [facility] POC ACT Specim en Type: BLOOD No comment enter ed. Ordering Provid er: IRENE BURNS Report Released Date/Time: Dec 03, 2021 01:30 PM Reporting Lab: [facility] [address] [facility] [address] Performing Lab: [facility] [address] [facility] [address] POC ACT 367 s 84-139 Nov 29, 2021 12:48 [facility] POC ABG/ELECTROLYTES Spec imen Type: ARTERIAL BLOOD PM Comment: Sample Type = ARTERIAL Ordering Provid er: IRENE BURNS Report Released Date/Time: Nov 29, 2021 07:53 PM Reporting Lab: [facility] [address] [facility] [address] Performing Lab: [facility] [address] [facility] [address] POC PH 7.289 L 7.35-7.45 POC PCO2 [...] 4.7 mg/dL 4.50-5.30 Nov 29, 2021 12:45 [facility] FINGERSTICK GLUCOSE Speci men Type: BLOOD PM Comment: [place] Ordering Provid er: IRENE BURNS TWO Report Released Date/Time: Nov 29, 2021 08:08 PM Reporting Lab: [facility] [address] [facility] [address] Performing Lab: [facility] [address] FINGERSTICK GLUCOSE 186 mg/dL H 70-100 Nov 29, 2021 12:26 PM [facility] POC ACT Specim en Type: BLOOD No comment enter ed. Ordering Provid er: IRENE BURNS TWO Report Released Date/Time: Dec 03, 2021 01:30 PM Reporting Lab: [facility] [address] [facility] [address] Performing Lab: [facility] [address] [facility] [address] POC ACT 367 s 84-139 Nov 29, 2021 11:58 AM [facility] POC ACT Specim en Type: BLOOD No comment enter ed. Ordering Provid er: IRENE BURNS TWO Report Released Date/Time: Dec 03, 2021 01:30 PM Reporting Lab: [facility] [address] [facility] [address] Performing Lab: [facility] [address] [facility] [address] POC ACT 338 s 84-139 Nov 29, 2021 11:53 [facility] FINGERSTICK GLUCOSE Speci men Type: BLOOD AM Comment: Save R esult Ordering Provid er: IRENE BURNS TWO Report Released Date/Time: Nov 29, 2021 08:08 PM Reporting Lab: [facility] [address] [facility] [address] Performing Lab: [facility] [address] [facility] [address] FINGERSTICK GLUCOSE 225 mg/dL H 70-100 Nov 29, 2021 11:30 AM [facility] POC ACT Specim en Type: BLOOD No comment enter ed. Ordering Provid er: GRANTCARDS TWO Report Released Date/Time: Dec 03, 2021 01:30 PM Reporting Lab: [facility] [address] [facility] [address] Performing Lab: [facility] [address] [address] POC ACT 355 s 84-139 Nov 29, 2021 11:26 [facility] POC ABG/ELECTROLYTES Spec imen Type: ARTERIAL BLOOD AM Comment: Sample Type = ARTERIAL Ordering Provid er: IRENE BURNS TWO Report Released Date/Time: Nov 29, 2021 07:53 PM Reporting Lab: [facility] [address] [address] Performing Lab: [facility] [address] POC PH 7.317 L 7.35-7.45 POC PCO2 [...] 4.8 mg/dL 4.50-5.30 Nov 29, 2021 11:06 [facility] FINGERSTICK GLUCOSE Speci men Type: BLOOD AM No comment enter ed. Ordering Provid er: IRENE BURNS TWO Report Released Date/Time: Nov 29, 2021 08:08 PM Reporting Lab: [facility] [address] [facility] [address] Performing Lab: [facility] [address] [address] FINGERSTICK GLUCOSE 221 mg/dL H 70-100 Nov 29, 2021 11:02 AM [facility] POC ACT Specim en Type: BLOOD No comment enter ed. Ordering Provid er: IRENE BURNS Report Released Date/Time: Dec 03, 2021 01:30 PM Reporting Lab: [facility] [address] [facility] [address] Performing Lab: [facility] [address] [facility] [address] POC ACT 294 s 84-139 Nov 29, 2021 10:26 AM [facility] POC ACT Specim en Type: BLOOD No comment enter ed. Ordering Provid er: IRENE BURNS Report Released Date/Time: Dec 03, 2021 01:30 PM Reporting Lab: [facility] [address] [facility] [address] Performing Lab: [facility] [address] [facility] [address] POC ACT 329 s 84-139 Nov 29, 2021 10:06 AM [facility] POC ACT Specim en Type: BLOOD No comment enter ed. Ordering Provid er: IRENE BURNS Report Released Date/Time: Dec 03, 2021 01:30 PM Reporting Lab: [facility] [address] [facility] [address] Performing Lab: [facility] [address] [facility] [address] POC ACT 312 s 84-139 Nov 29, 2021 09:58 [facility] POC ABG/ELECTROLYTES Spec imen Type: ARTERIAL BLOOD AM Comment: Sample Type = ARTERIAL Ordering Provid er: IRENE BURNS Report Released Date/Time: Nov 29, 2021 07:53 PM Reporting Lab: [facility] [address] [facility] [address] Performing Lab: [facility] [address] [facility] [address] POC PH 7.334 L 7.35-7.45 POC PCO2 [...] 4.9 mg/dL 4.50-5.30 Nov 29, 2021 09:56 [facility] FINGERSTICK GLUCOSE Speci men Type: BLOOD AM No comment enter ed. Ordering Provid er: IRENE BURNS TWO Report Released Date/Time: Nov 29, 2021 08:08 PM Reporting Lab: [facility] [address] [facility] [address] Performing Lab: [facility] [address] [facility] [address] FINGERSTICK GLUCOSE 194 mg/dL H 70-100 Nov 29, 2021 09:45 AM [facility] POC ACT Specim en Type: BLOOD No comment enter ed. Ordering Provid er: IRENE BURNS TWO Report Released Date/Time: Dec 03, 2021 01:30 PM Reporting Lab: [facility] [address] [facility] [address] Performing Lab: [facility] [address] [facility] [address] POC ACT 269 s 84-139 Nov 29, 2021 08:59 AM [facility] POC ACT Specim en Type: BLOOD No comment enter ed. Ordering Provid er: IRENE BURNS TWO Report Released Date/Time: Dec 03, 2021 01:30 PM Reporting Lab: [facility] [address] [facility] [address] Performing Lab: [facility] [address] [facility] [address] POC ACT 135 s 84-139 Nov 29, 2021 [facility] COVID-19 AND FLU/RSV Specime n Type: NASOPHARYNGEAL 07:05 AM DIAG PANEL(CEPHEID) Comment: Ce pheid GeneXpert (618) Ordering Provid er: KATHERINE FIGUEROA Report Released Date/Time: Oct 29, 2021 12:22 PM Reporting Lab: [facility] [address] [facility] [address] Performing Lab: [facility] [address] [facility] [address] COVID-19 (CEPHEID) Not Detected Not Dete cted INFLUENZA A (PCR) Not Detected Not Detec susanne INFLUENZA B (PCR) Not Detected Not Detec susanne RSV (PCR) Not Detected Not Detected Nov 29, 2021 [facility] BASIC METABOLIC Specimen Typ e: PLASMA 06:38 AM PANEL+MG No comment enter ed. Ordering Provid er: KATHERINE FIGUEROA Report Released Date/Time: Oct 29, 2021 12:22 PM Reporting Lab: [facility] [address] Performing Lab: [facility] [address] CREATININE 1.4 mg/dL H 0.7-1.2 UREA NITROGEN 23 mg/dL 8-26 GLUCOSE 201 mg/dL H 74-100 SODIUM 143 mmol/L 136-145 POTASSIUM 4.3 mmol/L 3.5-5.1 CHLORIDE 108 mmol/L H 98-107 CO2 28 mmol/L 22-29 CALCIUM 9.9 mg/dL 8.4-10.2 MAGNESIUM 1.9 mg/dL 1.6-2.6 ANION GAP 7 mmol/L 5-15 CREAT EGFR(CKD-EPI) 53 L >60 Nov 29, 2021 06:38 [facility] CBC Specimen Type: BLOOD AM No comment enter ed. Ordering Provid er: KATHERINE FIGUEROA Report Released Date/Time: Oct 29, 2021 12:22 PM Reporting Lab: [facility] [address] Performing Lab: [facility] [address] WBC 7.40 10*3/uL 4.0-11.0 RBC 5.17 10*6/uL 4.6-6.2 HGB 17.6 g/dL 13.5-17.9 HCT 52.7 41-54 MCV 101.9 fL H 80-100 MCH 34.0 pg H 27-33 MCHC 33.4 g/dL 32.0-37.5 PLT 88 10*3/uL L 150-400 MPV 14.3 fL H 7.4-10.4 RDW 14.4 11.5-14.5 IPF 18.0 H 0-10 Nov 29, 2021 [facility] PROTHROMBIN Specimen Typ e: PLASMA 06:38 AM TIME/INR No comment enter ed. Ordering Provid er: KATHERINE FIGUEROA Report Released Date/Time: Oct 29, 2021 12:22 PM Reporting Lab: [facility] [address] Performing Lab: [facility] [address] [facility] [address] .INR 1.1 0.8-1.1 .PT 13.1 s H 9.4-12.5 Nov 29, 2021 [facility] ACT PART Specimen Typ e: PLASMA 06:38 AM THROMBO TIME No comment enter ed. Ordering Provid er: KATHERINE FIGUEROA Report Released Date/Time: Oct 29, 2021 12:22 PM Reporting Lab: [facility] [address] [facility] [address] Performing Lab: [facility] [address] [facility] [address] APTT 33.3 s 25.1-36.5 Vital Signs: All taken on the encounter date This section contains inpatient and outpatient Vital Signs collected on the date of the Encounter. Date/Time Temperature Pulse Blood Respiratory SP02 Pain Height Weight Axel dy Source Pressure Rate Mass Index Nov 29, 98.3 F 96 99/66 18 /min 90 % 0 [place] 2021 11:07 /min mm[Hg] [facility] Nov 29, 98 96 % [place] 2021 08:40 /min [facility] Nov 29, 232 lb 30 [place] 2021 08:38 [facility] Nov 29 112/73 97 % [place] 2021 08:35 /min mm[Hg] [facility] Nov 29, 95 113/69 90 % [place] 2021 08:15 /min mm[Hg] [facility] Social History: Smoking Status (Most [...] Facility Nov 29, 2021 08:36 PM [facility] TOBACCO USE CURRENT NRT [facility] ACCEPT Tobacco Use History This section includes a history of the smoking, or tobacco- related health factors, that were collected on or before the date of the Encounter. The data comes from the [place] facility where the Encounter took place. Date/Time Smoking Status/Tobacco Use Comment [facility] armaan Mar 20, 2021 11:21 AM [facility] TOBACCO USE CURRENT NRT [facility] DECLINE Nov 15, 2020 10:00 AM VA-TOBACCO DOESNT USE WI 30 MIN [facility] WAKEUP Nov 15, 2020 10:00 AM VA-TOBACCO USE 30 YEARS OR MORE [facility] Nov 15, 2020 10:00 AM VA-TOBACCO USE ADVICE [place] [facility] Nov 15, 2020 10:00 AM VA-TOBACCO USE SECURITY GUARD NO [facility] Nov 15, 2020 10:00 AM VA-TOBACCO USE MED NO [place] [facility] Nov 15, 2020 10:00 AM VA-TOBACCO USER EVERY DAY [facility] Jun 21, 2019 02:29 PM VA-TOBACCO USE 30 YEARS OR MORE [facility] Jun 21, 2019 02:29 PM VA-TOBACCO USE ADVICE [place] [facility] Jun 21, 2019 02:29 PM VA-TOBACCO USE SECURITY GUARD NO [facility] Jun 21, 2019 02:29 PM VA-TOBACCO USE MED NO [place] [facility] Jun 21, 2019 02:29 PM VA-TOBACCO USE WI 30 MIN OF WAKEUP [facility] Jun 21, 2019 02:29 PM VA-TOBACCO USER EVERY DAY [facility] Jun 09, 2018 03:48 PM VA-TOBACCO USE 30 YEARS OR MORE [facility] Jun 09, 2018 03:48 PM VA-TOBACCO USE ADVICE [place] [facility] Jun 09, 2018 03:48 PM VA-TOBACCO USE SECURITY GUARD NO [facility] Jun 09, 2018 03:48 PM VA-TOBACCO USE MED NO [place] [facility] Jun 09, 2018 03:48 PM VA-TOBACCO USE [place] 30 MIN OF WAKEUP [facility] Jun 09, 2018 03:48 PM VA-TOBACCO USER EVERY DAY [facility] Jun 20, 2017 07:53 AM CURRENT TOBACCO USER [facility] Jun 19, 2016 08:41 AM CURRENT TOBACCO USER [facility] Jun 21, 2015 08:15 AM CURRENT TOBACCO USER [facility] Mar 22, 2014 10:03 AM CURRENT TOBACCO USER [facility] Mar 25, 2013 11:01 AM CURRENT TOBACCO USER [facility] Feb 05, 2012 08:55 AM CURRENT TOBACCO USER [facility] January 01, 2011 09:26 AM CURRENT TOBACCO USER [facility] Mar 07, 2010 10:02 AM [...] this document. The data comes from all [facility]. Date Advance Directives Provider Source Mar 06, 2005 ADVANCE DIRECTIVE GANESH RODRIGUEZ [facility] Radiology Reports: +/- 30 days of [...] the Encounter. The data comes from all [place] treatment facilities. Date/Time Radiology Report Provider Source Nov 30, 2021 07:05 AM CHEST 2 VIEWS PA AND LAT: MONET LUDWIG [facility] [place] [id number] -[birth year] M Exm Date: NOV 30, 2021@07:05 Req Phys: CHERRY MENDOZA Pat Loc: 3LSOB/ 2@08:05 Img Loc: MAIN X-RAY Service: zzcard sect (Case [id number] COMPLETE) CHEST 2 VIEWS PA AND LAT (R AD Detailed) CPT:33877 Reason for Study: s/p upgrade ICD adding an A l ead Clinical History: Post ICD or Pacemaker: Verify Lead Placement. [place] IS NOT under investigation for COVID-19 or is COVID-19 negative s/p upgrade ICD adding an A lead Responsible pr ovider name and phone number to notify for critical findings if other than user placing the order and pager listed below: User placing orders pager: [phone] LAST CREATININE 1.4 H (11/29/21) Report Status: Verified Date Reported: NOV 30, 2021 Date Verified: NOV 30, 2021 Special Events Director E-Sig:/ES/MONET LUDWIG MD, FACR, C CD Report: [...] 06:25 PM CHEST 1 VIEW: MAGDALENE DAVIDSON [facility] [place] [id number] -[birth year] 9 M Exm Date: NOV 29, 2021@18:25 Req Phys: CHERRY MENDOZA Pat Loc: [facility] [address] [facility] (Req'g Loc) Img Loc: MAIN X-RAY Service: Unknown (Case [id number] COMPLETE) CHEST 1 VIEW (RAD Detailed) CPT:04576 Reason for Study: s/p upgrade ICD adding [...] pager listed below: User placing orders pager: [phone] LAST CREATININE 1.4 H (11/29/21) Report Status: Verified Date Reported: NOV 29, 2021 Date Verified: NOV 29, 2021 Special Events Director E-Sig:/BILLY/MAGDALENE DAVIDSON MD Report: DATE/TIME REGISTERED: 11/29/2021 6:25 [...] Primary Interpreting Staff: MAGDALENE DAVIDSON MD, RADIOLOGIST (Special Events Director) /LUAN Encounter Notes: All associated encounter notes This section contains the clinical notes associated to the Encounter. Date/Time Encounter Note(s) Provider Source Nov 29, 2021 04:27 PM NURSING INPATIENT NOTE: AUBREY CUNNINGHAM [facility] LOCAL TITLE: [place]ATINA NURSING PROGRESS NOTE STANDARD TITLE: NURSING INPATIENT NOTE DATE OF NOTE: NOV 29, 2021@16:27 ENTRY DATE: NOV 29, 2021@16:27:32 AUTHOR: AUBREY CUNNINGHAM EXP COSIGNER: URGENCY: STATUS: COMPLETED SUBJECT: Venous sheath removal VENOUS SHEATH REMOVAL ACTIVATED CLOTTING TIME (ACT): not applicable ACT result: 135 SECS ACT machine number: [id number] SHEATH SITE Right Femoral Vein 11FR and 7FR FR sheath aspirated and removed. C losure Device used: Perclose Sites covered with sterile dressing. Affected Limb pulses post sheath remova l at baseline RDp doppler, LPT doppler Color/Warmth/Motion/Sensation at baseline Additional Manual Pressure Needed Left Femoral Vein FR sheath aspirated and removed. Closure Device used: Perclose Sites covered with sterile dressing. Affected Limb pulses post sheath remova l at baseline LDP doppler, LPT doppler Color/Warmth/Motion/Sensation at baseline Additional Manual Pressure Needed No PATIENT DENIES: chest pain, shortness of breath, numbness/tingling to bilateral lower extremities, comment: PATIENT ON BED REST UNTIL Nov@18:00. PUNCTURE SITE APPEARANCE Clean/Dry/Intact Without Hematoma PATIENT EDUCATION: Participant: Patient not ready to learn or no one present to learn because: pt just waking up from general anesthesia Teaching Methods: 1 on 1 Written Objectives for Groin Site Management discussed w [facility] participant: 1. Keep your head flat on your pillow. 2. Keep affected extremity flat on your bed and straight. 3. Support site when coughing/laughing/sneezing . 4. If you start bleeding, hold firm pressure ov er the site and notify your nurse immediately. 5. Your head of your bed can be raised up to a 30 degree angle. 6. Drink plenty of fluids. 7. Okay to shower after 24 hours and take dress ing off at that time (do not scrub site for 5-7 days). 8. No soaking the site in water for 5-[address] for 24 hours after your test. 10. No lifting greater that 10-15 pounds for 10 days. 11. Signs and symptoms of infection. Comments: Pt tx to PACU. Report given to PACU Janak Bar /billy/ AUBREY CUNNINGHAM, RN, CCRN Staff Nurse, CCRN Signed: 11/29/2021 19:45
--- OUTSIDE RECORDS SUMMARY | 2022-04-02 16:09 | XMS_ITS | Encounter Summary ---
:1945 Author Organization [facility] Address [address] [place] [id number] Care Team Providers Name Role Phone WILLA [...] MEDICARE MEDICARE PART Jun 25, PART B [id number] Saumya QUINONES PATIENT (WNR) (M) B 2011 78A 0 AVID MEDICARE MEDICARE PART Sep 25, PART A [id number] Saumya QUINONES PATIENT (WNR) (M) A 2009 78A 0 AVID MEDICARE MEDICARE PART Sep 25, PART A [id number] Saumya MICHELE (WNR) (M) A 2009 78A [phone] AVID MEDICARE MEDICARE PART Sep 25, PART B [id number] Saumya MICHELE ATTHOMAS (WNR) (M) B 2009 78A [phone] AVID Selected Encounter This section includes the information on record at [place] for the Encounter. Date/Time Encounter Type Encounter Description Reason Provider Source January 11, 2022 10:05 Outpatient Encounter CARDIOLOGY AM [facility] Encounter Template Text not used by [place] Plan of Treatment: Future Appointments (+ 6 months) and Future Tests (+/- 45 days) The Plan of Treatment section includes future care activities for the patient from [facility] [place] [facility] This section includes future appointments and future orders which are active, pending orscheduled.Future Appointments This section includes appointments that were scheduled to occur 6 months from the date of the Encounter, up to a maximum of 20 appointments. The data comes from all [facility]. Appointment Date/Time Appointment Type Appointment Facili ty Name Feb 05, 2022 07:00 AM AMBULATORY - [facility] Feb 07, 2022 09:30 AM AMBULATORY [facility] Feb 13, 2022 10:00 AM AMBULATORY [facility] Mar 21, 2022 09:30 AM AMBULATORY [facility] Active, Pending, and Scheduled Orders This section includes a listing of several types of active, pending, and scheduled orders, including clinic medications orders, diagnostic test orders, procedure orders and consult orders; where the start date of the order is 45 days before the date of the Encounter or 45 days after the date of the Encounter. The data comes from all [facility]. Test Date/Time Test Type Test Details Facility Name Nov 29, 2021 06:30 AM Laboratory - Blood Bank TYPE & SCREEN - LA B [facility] Order BLOOD SP Dec 15, 2021 12:00 AM Laboratory - Chemistry BASIC METABOLIC MIN [facility] Order PANEL+MG PLASMA SP Social History: Smoking [...] Comment Facility Nov 29, 2021 08:36 PM [facility] TOBACCO USE CURRENT NRT [facility] ACCEPT Tobacco Use History This section includes a history of the smoking, or tobacco- related health factors, that were collected on or before the date of the Encounter. The data comes from the [place] facility where the Encounter took place. Date/Time Smoking Status/Tobacco Use Comment [facility] it Mar 20, 2021 11:21 AM [facility] TOBACCO USE CURRENT NRT [facility] DECLINE Nov 15, 2020 10:00 AM [facility]-TO[facility]ACCO DOESNT USE WI 30 MIN [facility] WAKEUP Nov 15, 2020 10:00 AM VA-TOBACCO USE 30 YEARS OR MORE [facility] Nov 15, 2020 10:00 AM VA-TOBACCO USE ADVICE [facility] Nov 15, 2020 10:00 AM VA-TOBACCO USE ALUMINIZER NO [facility] Nov 15, 2020 10:00 AM VA-TOBACCO USE MED NO [place] [facility] Nov 15, 2020 10:00 AM VA-TOBACCO USER EVERY DAY [facility] Jun 21, 2019 02:29 PM VA-TOBACCO USE 30 YEARS OR MORE [facility] Jun 21, 2019 02:29 PM VA-TOBACCO USE ADVICE [place] [facility] [facility] Jun 21, 2019 02:29 PM VA-TOBACCO USE ALUMINIZER NO [facility] Jun 21, 2019 02:29 [...] Jun 09, 2018 03:48 PM VA-TOBACCO USE ALUMINIZER NO [facility] Jun 09, 2018 03:48 PM VA-TOBACCO USE MED NO [place] [facility] Jun 09, 2018 03:48 PM VA-TOBACCO USE WI 30 MIN OF WAKEUP [facility] Jun 09, 2018 03:48 PM VA-TOBACCO USER EVERY DAY [facility] Jun 20, 2017 07:53 AM CURRENT [facility] Jun 19, 2016 08:41 AM CURRENT [facility] Jun 21, 2015 08:15 AM CURRENT [facility]BACCO [facility]ER [facility] Mar 22, 2014 10:03 AM CURRENT TOBACCO USER [facility] Mar 25, 2013 11:01 AM CURRENT TOBACCO USER [facility] Feb 05, 2012 08:55 AM CURRENT [facility]BACCO USER [facility] January 01, 2011 09:26 AM CURRENT TOBACCO USER [facility] Mar 07, 2010 10:02 AM CURRENT TOBACCO USER [facility] Feb 21, 2009 08:17 AM CURRENT [facility]BACCO [facility]ER [facility] Nov 06, 2007 10:02 AM CURRENT [facility]AC[facility]ER [facility] January 02, 2007 10:33 AM CURRENT TOBACCO USER [facility] Advance Directives: All historical and current [...] Encounter. Date/Time Encounter Note(s) Provider Source January 11, 2022 10:06 AM REPORT OF CONTACT: ROE HURTADO [facility] LOCAL TITLE: APPOINTMENT SCHEDULING NOTE STANDARD TITLE: REPORT OF CONTACT DATE OF NOTE: JANUARY 11, 2022@10:06 ENTRY DATE: JANUARY 11, 2022@10:06:50 AUTHOR: ROE HURTADO EXP COSIGNER: URGENCY: STATUS: COMPLETED APPOINTMENT SCHEDULING NOTE [facility] No response to scheduling efforts Contact: Automated letter sent to [employer] addr ess on file on: Oct Additional information/contact attempts: CAll on 01/11/22 If Bertha calls back, schedule appointment for : Return to [facility] CHF CONSULT BENIGNO 3D on or around ( Dec 15, 2021 ) for a total of 1 appointment(s) Prerequisites: Labs (NON-FASTING), EKG Activity: 06/18/2021 14:12 New Order entered by JOSEPH PELAEZ (PHYSICIAN) Order Text: Return to [facility] CHF CONSULT BENIG[facility] 3D o n or around ( Dec 15, 2021 ) for a total of 1 appointment(s) Prerequisites: Labs (NON-FASTING),[id number] an d EKG Nature of Order: ELECTRONICALLY ENTERED /billy/ ROE HURTADO 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 /billy/ EVELYN YANCEY Outpt MSA Team Primary Care Physician Signed: 02/05/2022 12:29 Receipt Acknowledged By: * AWAITING SIGNATURE * VICENTE PELAEZ
--- OUTSIDE RECORDS SUMMARY | 2022-04-02 16:09 | XMS_ITS | Encounter Summary ---
:1945 Author Organization [facility] Address [address] [place], [place] [address] Care Team Providers Name Role Phone WILLA [...] MEDICARE MEDICARE PART Jun 25, PART B [id number] Saumya QUINONES PATIENT (WNR) (M) B 2011 78A 0 AVID MEDICARE MEDICARE PART Sep 25, PART A [id number] Saumya QUINONES PATIENT (WNR) (M) A 2009 78A 0 AVID MEDICARE MEDICARE PART Sep 25, PART A [id number] Saumya MICHELE (WNR) (M) A 2009 78A [id number] AVID MEDICARE MEDICARE PART Sep 25, PART B [id number] Saumya MICHELE ATTHOMAS (WNR) (M) B 2009 78A [phone] AVID Selected Encounter This section includes the information on record at [place] for the Encounter. Date/Time Encounter Type Encounter Description Reason Provider Source Nov 29, 2021 08:00 Outpatient Encounter CARDIAC ECHO AM IHE Encounter Template Text not used by [place] Plan of Treatment: Future Appointments (+ 6 months) and Future Tests (+/- 45 days) The Plan of Treatment section includes future care activities for the patient from all [facility] This section includes future appointments and future orders which are active, pending orscheduled.Future Appointments This section includes appointments that were scheduled to occur 6 months from the date of the Encounter, up to a maximum of 20 appointments. The data comes from all [facility]. Appointment Date/Time Appointment Type Appointment Facili ty Name Dec 21, 2021 09:30 AM AMBULATORY - NONE [facility] January 07, 2022 01:30 PM AMBULATORY - MEDICINE [facility] Feb 05, 2022 07:00 AM AMBULATORY - NONE [facility] Feb 07, 2022 09:30 AM AMBULATORY - NONE [facility] Feb 13, 2022 10:00 AM AMBULATORY [facility] Mar 21, 2022 09:30 AM AMBULATORY [facility] Active, Pending, and Scheduled Orders This section includes a listing of several types of active, pending, and scheduled orders, including clinic medications orders, diagnostic test orders, procedure orders and consult orders; where the start date of the order is 45 days before the date of the Encounter or 45 days after the date of the Encounter. The data comes from all [facility]. Test Date/Time Test Type Test Details Facility Name Nov 29, 2021 06:30 AM Laboratory - Blood Bank TYPE & SCREEN - LA B [facility] Order BLOOD SP Dec 15, 2021 12:00 AM Laboratory - Chemistry BASIC METABOLIC [facility] Order PANEL+MG PLASMA SP Lab Results: +/- [...] Reference Range Comment Nov 30, 2021 11:26 [facility] FINGERSTICK GLUCOSE Speci men Type: BLOOD AM Comment: [place] Nurse Notified Ordering Provid er: TEAM,CARDS TWO Report Released Date/Time: Nov 30, 2021 11:46 AM Reporting Lab: [facility] [address] Performing Lab: [facility] I PHIL [facility] [address] FINGERSTICK GLUCOSE 284 mg/dL H 70-100 Nov 30, 2021 09:[address] [facility] ALBUMIN Specim en Type: PLASMA No comment enter ed. Ordering Provid er: ELIUD DINERO Report Released Date/Time: Nov 29, 2021 07:53 PM Reporting Lab: [facility] [address] [facility] [address] Performing Lab: [facility] [address] [facility] [address] ALBUMIN 3.4 g/dL L 3.5-5.2 Nov 30, 2021 09:47 [facility] BASIC METABOLIC Specimen Type: PLASMA AM PANEL+MG No comment enter ed. Ordering Provid er: ANGIE MALHOTRA Report Released Date/Time: Nov 29, 2021 08:12 PM Reporting Lab: [facility] [address] [facility] [address] Performing Lab: [facility] [address] [facility] [address] CREATININE 1.2 mg/dL 0.7-1.2 UREA NITROGEN 18 mg/dL 8-26 GLUCOSE 342 mg/dL H 74-100 SODIUM 141 mmol/L 136-145 POTASSIUM 4.3 mmol/L 3.5-5.1 CHLORIDE 108 mmol/L H 98-107 CO2 26 mmol/L 22-29 CALCIUM 8.6 mg/dL 8.4-10.2 MAGNESIUM 1.5 mg/dL L 1.6-2.6 ANION GAP 7 mmol/L 5-15 CREAT EGFR(CKD-EPI) 63 >60 Nov 30, 2021 09:[address] [facility] CBC Specim en Type: BLOOD No comment enter ed. Ordering Provid er: ANGIE MALHOTRA Report Released Date/Time: Nov 29, 2021 08:12 PM Reporting Lab: [facility] [address] [facility] [address] Performing Lab: [facility] [address] [facility] [address] WBC 10.61 10*3/uL 4.0-11.0 RBC 4.33 10*6/uL L 4.6-6.2 HGB 14.6 g/dL 13.5-17.9 HCT 45.2 41-54 MCV 104.4 fL H 80-100 MCH 33.7 pg H 27-33 MCHC 32.3 g/dL 32.0-37.5 PLT 71 10*3/uL L 150-400 MPV 13.9 fL H 7.4-10.4 RDW 14.7 H 11.5-14.5 IPF 17.8 H 0-10 Nov 30, 2021 06:09 [facility] FINGERSTICK GLUCOSE Speci men Type: BLOOD AM Comment: [place] Nurse Notified Ordering Provid er: IRENE BURNS TWO Report Released Date/Time: Nov 30, 2021 06:32 AM Reporting Lab: [facility] [address] [facility] [address] Performing Lab: [facility] [address] [facility] [address] FINGERSTICK GLUCOSE 165 mg/dL H 70-100 Nov 29, 2021 07:35 [facility] FINGERSTICK GLUCOSE Speci men Type: BLOOD PM Comment: [place] Nurse Notified Ordering Provid er: IRENE BURNS TWO Report Released Date/Time: Nov 29, 2021 07:48 PM Reporting Lab: [facility] [address] [facility] [address] Performing Lab: [facility] [address] [facility] [address] FINGERSTICK GLUCOSE 160 mg/dL H 70-100 Nov 29, 2021 06:52 [facility] FINGERSTICK GLUCOSE Speci men Type: BLOOD PM Comment: [place] Nurse Notified Ordering Provid er: SAKSHI CROUCH Report Released Date/Time: Nov 29, 2021 07:04 PM Reporting Lab: [facility] [address] [facility] [address] Performing Lab: [facility] [address] [facility] [address] FINGERSTICK GLUCOSE 161 mg/dL H 70-100 Nov 29, 2021 04:18 [facility] FINGERSTICK GLUCOSE Speci men Type: BLOOD PM No comment enter ed. Ordering Provid er: IRENE BURNS TWO Report Released Date/Time: Nov 29, 2021 08:08 PM Reporting Lab: [facility] [address] [facility] [address] Performing Lab: [facility] [address] [facility] [address] FINGERSTICK GLUCOSE 179 mg/dL H 70-100 Nov 29, 2021 03:26 [facility] POC ABG/ELECTROLYTES Spec imen Type: ARTERIAL BLOOD PM Comment: Sample Type = ARTERIAL Ordering Provid er: IRENE BURNS TWO Report Released Date/Time: Nov 29, 2021 07:53 PM Reporting Lab: [facility] [address] Performing Lab: [facility] [address] POC PH 7.321 L 7.35-7.45 POC PCO2 [...] mg/dL L 4.50-5.30 Nov 29, 2021 03:24 [facility] FINGERSTICK GLUCOSE Speci men Type: BLOOD PM Comment: Save R esult Ordering Provid er: TEAM,CARDS TWO Report Released Date/Time: Nov 29, 2021 08:08 PM Reporting Lab: [facility] [address] Performing Lab: [facility] [address] FINGERSTICK GLUCOSE 188 mg/dL H 70-100 Nov 29, 2021 02:06 [facility] POC ABG/ELECTROLYTES Spec imen Type: ARTERIAL BLOOD PM Comment: Sample Type = ARTERIAL Ordering Provid er: TEAM,CARDS TWO Report Released Date/Time: Nov 29, 2021 07:53 PM Reporting Lab: [facility] [address] Performing Lab: [facility] [address] POC PH 7.313 L 7.35-7.45 POC PCO2 [...] mg/dL L 4.50-5.30 Nov 29, 2021 02:04 [facility] FINGERSTICK GLUCOSE Speci men Type: BLOOD PM Comment: Save R esult Ordering Provid er: IRENE BURNS Report Released Date/Time: Nov 29, 2021 08:08 PM Reporting Lab: [facility] [address] [facility] [address] Performing Lab: [facility] [address] [facility] [address] FINGERSTICK GLUCOSE 236 mg/dL H 70-100 Nov 29, 2021 01:[address] [facility] POC ACT Specim en Type: BLOOD No comment enter ed. Ordering Provid er: IRENE BURNS Report Released Date/Time: Dec 03, 2021 01:31 PM Reporting Lab: [facility] [address] [facility] [address] Performing Lab: [facility] [address] [facility] [address] POC ACT 135 s 84-139 Nov 29, 2021 01:[address] [facility] POC ACT Specim en Type: BLOOD No comment enter ed. Ordering Provid er: IRENE BURNS Report Released Date/Time: Dec 03, 2021 01:30 PM Reporting Lab: [facility] [address] [facility] [address] Performing Lab: [facility] [address] [facility] [address] POC ACT 355 s 84-139 Nov 29, 2021 12:[address] [facility] POC ACT Specim en Type: BLOOD No comment enter ed. Ordering Provid er: IRENE BURNS Report Released Date/Time: Dec 03, 2021 01:30 PM Reporting Lab: [facility] [address] [facility] [address] Performing Lab: [facility] [address] [facility] [address] POC ACT 367 s 84-139 Nov 29, 2021 12:48 [facility] POC ABG/ELECTROLYTES Spec imen Type: ARTERIAL BLOOD PM Comment: Sample Type = ARTERIAL Ordering Provid er: IRENE BURNS Report Released Date/Time: Nov 29, 2021 07:53 PM Reporting Lab: [facility] [address] [facility] [address] Performing Lab: [facility] [address] [facility] [address] POC PH 7.289 L 7.35-7.45 POC PCO2 [...] 4.7 mg/dL 4.50-5.30 Nov 29, 2021 12:45 [facility] FINGERSTICK GLUCOSE Speci men Type: BLOOD PM Comment: [place] Ordering Provid er: IRENE BURNS TWO Report Released Date/Time: Nov 29, 2021 08:08 PM Reporting Lab: [facility] [address] [facility] [address] Performing Lab: [facility] [address] FINGERSTICK GLUCOSE 186 mg/dL H 70-100 Nov 29, 2021 12:[address] [facility] POC ACT Specim en Type: BLOOD No comment enter ed. Ordering Provid er: IRENE BURNS TWO Report Released Date/Time: Dec 03, 2021 01:30 PM Reporting Lab: [facility] [address] [facility] [address] Performing Lab: [facility] [address] [facility] [address] POC ACT 367 s 84-139 Nov 29, 2021 11:[address] [facility] POC ACT Specim en Type: BLOOD No comment enter ed. Ordering Provid er: IRENE BURNS TWO Report Released Date/Time: Dec 03, 2021 01:30 PM Reporting Lab: [facility] [address] [facility] [address] Performing Lab: [facility] [address] [facility] [address] POC ACT 338 s 84-139 Nov 29, 2021 11:53 [facility] FINGERSTICK GLUCOSE Speci men Type: BLOOD AM Comment: Save R esult Ordering Provid er: IRENE BURNS TWO Report Released Date/Time: Nov 29, 2021 08:08 PM Reporting Lab: [facility] [address] [facility] [address] Performing Lab: [facility] [address] FINGERSTICK GLUCOSE 225 mg/dL H 70-100 Nov 29, 2021 11:[address] [facility] POC ACT Specim en Type: BLOOD No comment enter ed. Ordering Provid er: GRANTCARDS TWO Report Released Date/Time: Dec 03, 2021 01:30 PM Reporting Lab: [facility] [address] Performing Lab: [facility] [address] POC ACT 355 s 84-139 Nov 29, 2021 11:26 [facility] POC ABG/ELECTROLYTES Spec imen Type: ARTERIAL BLOOD AM Comment: Sample Type = ARTERIAL Ordering Provid er: IRENE BURNS TWO Report Released Date/Time: Nov 29, 2021 07:53 PM Reporting Lab: [facility] [address] Performing Lab: [facility] [address] POC PH 7.317 L 7.35-7.45 POC PCO2 [...] 4.8 mg/dL 4.50-5.30 Nov 29, 2021 11:06 [facility] FINGERSTICK GLUCOSE Speci men Type: BLOOD AM No comment enter ed. Ordering Provid er: IRENE BURNS TWO Report Released Date/Time: Nov 29, 2021 08:08 PM Reporting Lab: [facility] [address] Performing Lab: [facility] [address] FINGERSTICK GLUCOSE 221 mg/dL H 70-100 Nov 29, 2021 11:[address] [facility] POC ACT Specim en Type: BLOOD No comment enter ed. Ordering Provid er: IRENE BURNS Report Released Date/Time: Dec 03, 2021 01:30 PM Reporting Lab: [facility] [address] [facility] [address] Performing Lab: [facility] [address] [facility] [address] POC ACT 294 s 84-139 Nov 29, 2021 10:[address] [facility] POC ACT Specim en Type: BLOOD No comment enter ed. Ordering Provid er: IRENE BURNS Report Released Date/Time: Dec 03, 2021 01:30 PM Reporting Lab: [facility] [address] [facility] [address] Performing Lab: [facility] [address] [facility] [address] POC ACT 329 s 84-139 Nov 29, 2021 10:[address] [facility] POC ACT Specim en Type: BLOOD No comment enter ed. Ordering Provid er: IRENE BURNS Report Released Date/Time: Dec 03, 2021 01:30 PM Reporting Lab: [facility] [address] [facility] [address] Performing Lab: [facility] [address] [facility] [address] POC ACT 312 s 84-139 Nov 29, 2021 09:58 [facility] POC ABG/ELECTROLYTES Spec imen Type: ARTERIAL BLOOD AM Comment: Sample Type = ARTERIAL Ordering Provid er: IRENE BURNS Report Released Date/Time: Nov 29, 2021 07:53 PM Reporting Lab: [facility] [address] [facility] [address] Performing Lab: [facility] [address] [facility] [address] POC PH 7.334 L 7.35-7.45 POC PCO2 [...] 4.9 mg/dL 4.50-5.30 Nov 29, 2021 09:56 [facility] FINGERSTICK GLUCOSE Speci men Type: BLOOD AM No comment enter ed. Ordering Provid er: IRENE BURNS TWO Report Released Date/Time: Nov 29, 2021 08:08 PM Reporting Lab: [facility] [address] [facility] [address] Performing Lab: [facility] [address] [facility] [address] FINGERSTICK GLUCOSE 194 mg/dL H 70-100 Nov 29, 2021 09:[address] [facility] POC ACT Specim en Type: BLOOD No comment enter ed. Ordering Provid er: IRENE BURNS TWO Report Released Date/Time: Dec 03, 2021 01:30 PM Reporting Lab: [facility] [address] [facility] [address] Performing Lab: [facility] [address] [facility] [address] POC ACT 269 s 84-139 Nov 29, 2021 08:[address] [facility] POC ACT Specim en Type: BLOOD No comment enter ed. Ordering Provid er: IRENE BURNS TWO Report Released Date/Time: Dec 03, 2021 01:30 PM Reporting Lab: [facility] [address] [facility] [address] Performing Lab: [facility] [address] [facility] [address] POC ACT 135 s 84-139 Nov 29, 2021 [facility] COVID-19 AND FLU/RSV Specime n Type: NASOPHARYNGEAL 07:05 AM DIAG PANEL(CEPHEID) Comment: Ce pheid GeneXpert (618) Ordering Provid er: KATHERINE FIGUEROA Report Released Date/Time: Oct 29, 2021 12:22 PM Reporting Lab: [facility] [address] [facility] [address] Performing Lab: [facility] [address] [facility] [address] COVID-19 (CEPHEID) Not Detected Not Dete cted INFLUENZA A (PCR) Not Detected Not Detec susanne INFLUENZA B (PCR) Not Detected Not Detec susanne RSV (PCR) Not Detected Not Detected Nov 29, 2021 [facility] BASIC METABOLIC Specimen Typ e: PLASMA 06:38 AM PANEL+MG No comment enter ed. Ordering Provid er: KATHERINE FIGUEROA Report Released Date/Time: Oct 29, 2021 12:22 PM Reporting Lab: [facility] [address] Performing Lab: [facility] [address] CREATININE 1.4 mg/dL H 0.7-1.2 UREA NITROGEN 23 mg/dL 8-26 GLUCOSE 201 mg/dL H 74-100 SODIUM 143 mmol/L 136-145 POTASSIUM 4.3 mmol/L 3.5-5.1 CHLORIDE 108 mmol/L H 98-107 CO2 28 mmol/L 22-29 CALCIUM 9.9 mg/dL 8.4-10.2 MAGNESIUM 1.9 mg/dL 1.6-2.6 ANION GAP 7 mmol/L 5-15 CREAT EGFR(CKD-EPI) 53 L >60 Nov 29, 2021 06:38 [facility] CBC Specimen Type: BLOOD AM No comment enter ed. Ordering Provid er: KATHERINE FIGUEROA Report Released Date/Time: Oct 29, 2021 12:22 PM Reporting Lab: [facility] [address] Performing Lab: [facility] [address] WBC 7.40 10*3/uL 4.0-11.0 RBC 5.17 10*6/uL 4.6-6.2 HGB 17.6 g/dL 13.5-17.9 HCT 52.7 41-54 MCV 101.9 fL H 80-100 MCH 34.0 pg H 27-33 MCHC 33.4 g/dL 32.0-37.5 PLT 88 10*3/uL L 150-400 MPV 14.3 fL H 7.4-10.4 RDW 14.4 11.5-14.5 IPF 18.0 H 0-10 Nov 29, 2021 [facility] PROTHROMBIN Specimen Typ e: PLASMA 06:38 AM TIME/INR No comment enter ed. Ordering Provid er: KATHERINE FIGUEROA Report Released Date/Time: Oct 29, 2021 12:22 PM Reporting Lab: [facility] [address] Performing Lab: [facility] [address] [facility] [address] .INR 1.1 0.8-1.1 .PT 13.1 s H 9.4-12.5 Nov 29, 2021 [facility] ACT PART Specimen Typ e: PLASMA 06:38 AM THROMBO TIME No comment enter ed. Ordering Provid er: KATHERINE FIGUEROA Report Released Date/Time: Oct 29, 2021 12:22 PM Reporting Lab: [facility] [address] [place] [facility] [address] Performing Lab: [facility] [address] [facility] [address] APTT 33.3 s 25.1-36.5 Vital Signs: All taken on the encounter date This section contains inpatient and outpatient Vital Signs collected on the date of the Encounter. Date/Time Temperature Pulse Blood Respiratory SP02 Pain Height Weight Axel dy Source Pressure Rate Mass Index Nov 29, 98.3 F 96 99/66 18 /min 90 % 0 [place] 2021 11:07 /min mm[Hg] [facility] Nov 29, 98 96 % [place] 2021 08:40 /min [facility] Nov 29, 232 lb 30 [place] 2021 08:38 [facility] Nov 29 112/73 97 % [place] 2021 08:35 /min mm[Hg] [facility] Nov 29, 95 113/69 90 % [place] 2021 08:15 /min mm[Hg] [facility] Social History: Smoking Status (Most [...] Comment Facility Nov 29, 2021 08:36 PM [facility] TOBACCO USE CURRENT NRT [facility] ACCEPT Tobacco Use History This section includes a history of the smoking, or tobacco- related health factors, that were collected on or before the date of the Encounter. The data comes from the [place] facility where the Encounter took place. Date/Time Smoking Status/Tobacco Use Comment [facility] armaan Mar 20, 2021 11:21 AM [facility] TOBACCO USE CURRENT NRT [facility] DECLINE Nov 15, 2020 10:00 AM VA-TOBACCO DOESNT USE [place] [address] [facility] WAKEUP Nov 15, 2020 10:00 AM VA-TOBACCO USE [address] 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 Nov 15, 2020 10:00 AM VA-TOBACCO USE MED NO [place] [facility] Nov 15, 2020 10:00 AM VA-TOBACCO USER EVERY DAY [facility] Jun 21, 2019 02:29 PM VA-TOBACCO USE [address] 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 Jun 21, 2019 02:29 PM VA-TOBACCO USE MED NO [place] [facility] Jun 21, 2019 02:29 PM VA-TOBACCO [place] [address] [facility] Jun 21, 2019 02:29 PM VA-TOBACCO USER EVERY DAY [facility] Jun 09, 2018 03:48 PM VA-TOBACCO USE [address] 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 Jun 09, 2018 03:48 PM VA-TOBACCO USE MED NO [place] [facility] Jun 09, 2018 03:48 PM VA-TOBACCO [place] [address] [facility] Jun 09, 2018 03:48 PM VA-TOBACCO USER EVERY DAY [facility] Jun 20, 2017 07:53 AM CURRENT [...] this document. The data comes from all [facility]. Date Advance Directives Provider Source Mar 06, 2005 ADVANCE DIRECTIVE GANESH RODRIGUEZ [facility] Radiology Reports: +/- 30 days of [...] the Encounter. The data comes from all [place] treatment facilities. Date/Time Radiology Report Provider Source Nov 30, 2021 07:05 AM CHEST 2 VIEWS PA AND LAT: MONET LUDWIG [facility] PA[place]LE [id number] -[birth year] M Exm Date: NOV 30, 2021@07:05 Req Phys: CHERRY MENDOZA Pat Loc: 3LSOB/ 2@08:05 Img Loc: MAIN X-RAY Service: zzcard sect (Case [id number] COMPLETE) CHEST 2 VIEWS PA AND LAT (R AD Detailed) CPT:80042 Reason for Study: s/p upgrade ICD adding [...] pager listed below: User placing orders pager: [phone] LAST CREATININE 1.4 H (11/29/21) Report Status: Verified Date Reported: NOV 30, 2021 Date Verified: NOV 30, 2021 Peanut Blancher E-Sig:/ES/MONET LUDWIG MD, FACR, C CD Report: [...] 06:25 PM CHEST 1 VIEW: MAGDALENE DAVIDSON [facility] [place] MIC[place] [id number] -[birth year], [birth year] 9 M Exm Date: NOV 29, 2021@18:25 Req Phys: CHERRY MENDOZA Pat Loc: [facility] [address] [facility] (Req'g Loc) Img Loc: MAIN X-RAY Service: Unknown (Case [id number] COMPLETE) CHEST 1 VIEW (RAD Detailed) CPT:94942 Reason for Study: s/p upgrade ICD adding [...] pager listed below: User placing orders pager: [phone] LAST CREATININE 1.4 H (11/29/21) Report Status: Verified Date Reported: NOV 29, 2021 Date Verified: NOV 29, 2021 Peanut Blancher E-Sig:/HOLLIE/MAGDALENE DAVIDSON MD Report: DATE/TIME REGISTERED: 11/29/2021 [...] pulmonary venous conge stion. Primary Interpreting Staff: MAGDAELNE DAVIDSON MD, RADIOLOGIST (Peanut Blancher) /LUAN
--- OUTSIDE RECORDS SUMMARY | 2022-04-02 16:09 | XMS_ITS | Encounter Summary ---
:1945 Author Organization [facility] Address [address] [place], [place] [id number] Care Team Providers Name Role Phone WILLA [...] MEDICARE MEDICARE PART Jun 25, PART B [id number] Saumya QUINONES PATIENT (WNR) (M) B 2011 78A 0 AVID MEDICARE MEDICARE PART Sep 25, PART A [id number] Saumya QUINONES PATIENT (WNR) (M) A 2009 78A 0 AVID MEDICARE MEDICARE PART Sep 25, PART A [id number] Saumya MICHELE (WNR) (M) A 2009 [id number] [phone] AVID MEDICARE MEDICARE PART Sep 25, PART B [id number] Saumya MICHELE (WNR) (M) B 2009 [id number] [id number] AVID Selected Encounter This section includes the information on record at [facility] for the Encounter. Date/Time Encounter Type Encounter Description Reason Provider Source Feb 13, 2022 04:37 Outpatient Encounter OPHTHALMOLOGY PM [facility] Encounter Template Text not used by [facility] Plan of Treatment: Future Appointments (+ 6 months) and Future Tests (+/- 45 days) The Plan of Treatment section includes future care activities for the patient [facility]. This section includes future appointments [...] 21, 2022 09:30 AM AMBULATORY - NONE [facility] Lab Results: +/- 30 days [...] Range Comment Feb 13, 2022 09:28 AM [facility] HEMOGLOBIN A1C Specim en Type: BLOOD No comment enter ed. Ordering Provid er: JAYY SAMS Report Released Date/Time: Feb 07, 2022 04:30 PM Reporting Lab: [facility] [address] [facility] [id number] Performing Lab: [facility] [address] [facility] [id number] HEMOGLOBIN A1C 8.5 H 4.0-6.0 Social History: [...] Comment Facility Nov 29, 2021 08:[address] [facility] TOBACCO USE CURRENT NRT [facility] ACCEPT Tobacco Use History This section includes a history of the smoking, or tobacco- related health factors, that were collected on or before the date of the Encounter. The data comes from the [facility] facility where the Encounter took place. 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 [facility] Jun 21, 2019 02:29 PM VA-TOBACCO USE 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 [facility] Jun 09, 2018 03:48 PM VA-TOBACCO USE 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 [facility] [...] 07:53 AM CURRENT TOBACCO USER [facility] Jun 19, 2016 08:41 AM [facility] Jun 21, 2015 08:15 AM [facility] Mar 22, 2014 10:03 AM [facility] Mar 25, 2013 11:01 AM [facility] Feb 05, 2012 08:55 AM CURRENT TOBACCO USER [facility] January 01, 2011 09:26 AM CURRENT TOBACCO USER [facility] Mar 07, 2010 10:02 AM CURRENT TOBACCO USER [facility] Feb 21, 2009 08:17 AM CURRENT TOBACCO USER [facility] Nov 06, 2007 10:02 AM CURRENT TOBACCO USER [facility] January 02, 2007 10:33 AM CURRENT TOBACCO [...] Source Mar 06, 2005 ADVANCE DIRECTIVE MICHAELGANESH [facility] Encounter Notes: All associated encounter notes This section contains the clinical notes associated to the Encounter. Date/Time Encounter Note(s) Provider Source Feb 13, 2022 04:37 PM REPORT OF CONTACT: FABIÁN HERNANDEZ [facility] LOCAL TITLE: APPOINTMENT SCHEDULING NOTE STANDARD TITLE: REPORT OF CONTACT DATE OF NOTE: FEB 13, 2022@16:37 ENTRY DATE: FEB 13, 2022@16:37:39 AUTHOR: FABIÁN HERNANDEZ EXP COSIGNER: URGENCY: STATUS: COMPLETED Attempt to schedule return to clinic 1st Contact: Called at: [phone] [facility] Patient does not wish to schedule. Return to [facility] EYE OPHTHALMOLOGY MARISELA 2E on or stephania und ( January 14, 2022 ) for a total of 1 appointment(s) JAYLA /billy/ FABIÁN HERNANDEZ [employer] Signed: 02/13/2022 16:38 Receipt Acknowledged By: * AWAITING SIGNATURE * MARGIE SHAFFER
--- OUTSIDE RECORDS SUMMARY | 2022-04-02 16:10 | XMS_ITS | Encounter Summary ---
:1945 Author Organization [facility] Address [address] [place] [address] Care Team Providers Name Role Phone CROUCH [...] MEDICARE MEDICARE PART Jun 25, PART B [id number] Saumya QUINONES PATIENT (WNR) (M) B 2011 78A 0 AVID MEDICARE MEDICARE PART Sep 25, PART A [id number] Saumya QUINONES PATIENT (WNR) (M) A 2009 78A 0 AVID MEDICARE MEDICARE PART Sep 25, PART A [id number] Saumya MICHELE (WNR) (M) A 2009 78A [id number] AVID MEDICARE MEDICARE PART Sep 25, PART B [id number] Saumya MICHELE (WNR) (M) B 2009 78A [id number] AVID Selected Encounter This section includes the information on record at [place] for the Encounter. Date/Time Encounter Type Encounter Reason Provider Source Description Dec 21, 2021 Outpatient HT NON-VIDEO ICD-10-CM I50.9 DOE BURDICK 11:54 AM Encounter MONITORING Heart failure, N M unspecified with Provider Comments: Heart Failure, unspecified IHE Encounter Template Text not used by [place] Assessments - Encounter Diagnoses This section includes the primary and secondary diagnoses documented for the Encounter. Date/Time Primary/Secondary Diagnosis Name Provider Source Diagnosis Dec 21, 2021 PRIMARY Heart failure, NILESH BURDICK [facility] 11:55 AM unspecified [facility] Plan of Treatment: Future Appointments (+ 6 months) and Future Tests (+/- 45 days) The Plan of Treatment section includes future care activities for the patient from [facility] [place] [facility] This section includes future appointments and [...] AMBULATORY - MEDICINE [facility] Feb 05, 2022 07:00 AM AMBULATORY - NONE [facility] Feb 07, 2022 09:30 AM AMBULATORY [facility] Feb 13, 2022 10:00 AM AMBULATORY [facility] Mar 21, 2022 09:30 AM [facility] Active, Pending, and Scheduled Orders This section includes a listing of several types of active, pending, and scheduled orders, including clinic medications orders, diagnostic test orders, procedure orders and consult orders; where the start date of the order is 45 days before the date of the Encounter or 45 days after the date of the Encounter. The data comes from all [facility]. Test Date/Time Test Type Test Details Facility Name Nov 29, 2021 06:30 AM Laboratory - Blood Bank TYPE & SCREEN - LA B [facility] Order BLOOD SP Dec 15, 2021 12:00 AM Laboratory - Chemistry BASIC METABOLIC MIN [facility] Order PANEL+MG PLASMA SP Lab Results: +/- [...] Reference Range Comment Nov 30, 2021 11:26 [facility] FINGERSTICK GLUCOSE Speci men Type: BLOOD AM Comment: [place] Nurse Notified Ordering Provid er: IRENE BURNS Report Released Date/Time: Nov 30, 2021 11:46 AM Reporting Lab: [facility] [address] [facility] [address] Performing Lab: [facility] [address] [facility] [address] FINGERSTICK GLUCOSE 284 mg/dL H 70-100 Nov 30, 2021 09:47 AM [facility] ALBUMIN Specim en Type: PLASMA No comment enter ed. Ordering Provid er: ELIUD DINERO Report Released Date/Time: Nov 29, 2021 07:53 PM Reporting Lab: [facility] [address] [facility] [address] Performing Lab: [facility] [address] [facility] [address] ALBUMIN 3.4 g/dL L 3.5-5.2 Nov 30, 2021 09:47 [facility] BASIC METABOLIC Specimen Type: PLASMA AM PANEL+MG No comment enter ed. Ordering Provid er: ANGIE MALHOTRA Report Released Date/Time: Nov 29, 2021 08:12 PM Reporting Lab: [facility] [address] [facility] [address] Performing Lab: [facility] [address] [facility] [address] CREATININE 1.2 mg/dL 0.7-1.2 UREA NITROGEN 18 mg/dL 8-26 GLUCOSE 342 mg/dL H 74-100 SODIUM 141 mmol/L 136-145 POTASSIUM 4.3 mmol/L 3.5-5.1 CHLORIDE 108 mmol/L H 98-107 CO2 26 mmol/L 22-29 CALCIUM 8.6 mg/dL 8.4-10.2 MAGNESIUM 1.5 mg/dL L 1.6-2.6 ANION GAP 7 mmol/L 5-15 CREAT EGFR(CKD-EPI) 63 >60 Nov 30, 2021 09:46 AM [facility] CBC Specim en Type: BLOOD No comment enter ed. Ordering Provid er: ANGIE MALHOTRA Report Released Date/Time: Nov 29, 2021 08:12 PM Reporting Lab: [facility] [address] [facility] [address] Performing Lab: [facility] [address] [facility] [address] WBC 10.61 10*3/uL 4.0-11.0 RBC 4.33 10*6/uL L 4.6-6.2 HGB 14.6 g/dL 13.5-17.9 HCT 45.2 41-54 MCV 104.4 fL H 80-100 MCH 33.7 pg H 27-33 MCHC 32.3 g/dL 32.0-37.5 PLT 71 10*3/uL L 150-400 MPV 13.9 fL H 7.4-10.4 RDW 14.7 H 11.5-14.5 IPF 17.8 H 0-10 Nov 30, 2021 06:09 [facility] FINGERSTICK GLUCOSE Speci men Type: BLOOD AM Comment: [place] Nurse Notified Ordering Provid er: TEAM,CARDS TWO Report Released Date/Time: Nov 30, 2021 06:32 AM Reporting Lab: [facility] [address] [facility] [address] Performing Lab: [facility] [address] [facility] [address] FINGERSTICK GLUCOSE 165 mg/dL H 70-100 Nov 29, 2021 07:35 [facility] FINGERSTICK GLUCOSE Speci men Type: BLOOD PM Comment: [place] Nurse Notified Ordering Provid er: GRANTCARDS TWO Report Released Date/Time: Nov 29, 2021 07:48 PM Reporting Lab: [facility] [address] [facility] [address] Performing Lab: [facility] [address] [facility] [address] FINGERSTICK GLUCOSE 160 mg/dL H 70-100 Nov 29, 2021 06:52 [facility] FINGERSTICK GLUCOSE Speci men Type: BLOOD PM Comment: [place] Nurse Notified Ordering Provid er: SAKSHI CROUCH Report Released Date/Time: Nov 29, 2021 07:04 PM Reporting Lab: [facility] [address] [facility] [address] Performing Lab: [facility] [address] [facility] [address] FINGERSTICK GLUCOSE 161 mg/dL H 70-100 Nov 29, 2021 04:18 [facility] FINGERSTICK GLUCOSE Speci men Type: BLOOD PM No comment enter ed. Ordering Provid er: GRANTCARDS TWO Report Released Date/Time: Nov 29, 2021 08:08 PM Reporting Lab: [facility] [address] [facility] [address] Performing Lab: [facility] [address] [facility] [address] FINGERSTICK GLUCOSE 179 mg/dL H 70-100 Nov 29, 2021 03:26 [facility] POC ABG/ELECTROLYTES Spec imen Type: ARTERIAL BLOOD PM Comment: Sample Type = ARTERIAL Ordering Provid er: IRENE BURNS TWO Report Released Date/Time: Nov 29, 2021 07:53 PM Reporting Lab: [facility] [address] [facility] [address] Performing Lab: [facility] [address] POC PH 7.321 L 7.35-7.45 POC PCO2 [...] mg/dL L 4.50-5.30 Nov 29, 2021 03:24 [facility] FINGERSTICK GLUCOSE Speci men Type: BLOOD PM Comment: Save R esult Ordering Provid er: IRENE BURNS TWO Report Released Date/Time: Nov 29, 2021 08:08 PM Reporting Lab: [facility] [address] [facility] [address] Performing Lab: [facility] [address] FINGERSTICK GLUCOSE 188 mg/dL H 70-100 Nov 29, 2021 02:06 [facility] POC ABG/ELECTROLYTES Spec imen Type: ARTERIAL BLOOD PM Comment: Sample Type = ARTERIAL Ordering Provid er: GRANTCARDS TWO Report Released Date/Time: Nov 29, 2021 07:53 PM Reporting Lab: [facility] [address] [facility] [address] Performing Lab: [facility] [address] POC PH 7.313 L 7.35-7.45 POC PCO2 [...] mg/dL L 4.50-5.30 Nov 29, 2021 02:04 [facility] FINGERSTICK GLUCOSE Speci men Type: BLOOD PM Comment: Save R esult Ordering Provid er: IRENE BURNS TWO Report Released Date/Time: Nov 29, 2021 08:08 PM Reporting Lab: [facility] [address] [facility] [address] Performing Lab: [facility] [address] [facility] [address] FINGERSTICK GLUCOSE 236 mg/dL H 70-100 Nov 29, 2021 01:52 PM [facility] POC ACT Specim en Type: BLOOD No comment enter ed. Ordering Provid er: IRENE BURNS TWO Report Released Date/Time: Dec 03, 2021 01:31 PM Reporting Lab: [facility] [address] [facility] [address] Performing Lab: [facility] [address] [facility] [address] POC ACT 135 s 84-139 Nov 29, 2021 01:16 PM [facility] POC ACT Specim en Type: BLOOD No comment enter ed. Ordering Provid er: IRENE BURNS TWO Report Released Date/Time: Dec 03, 2021 01:30 PM Reporting Lab: [facility] [address] [facility] [address] Performing Lab: [facility] [address] [facility] [address] POC ACT 355 s 84-139 Nov 29, 2021 12:49 PM [facility] POC ACT Specim en Type: BLOOD No comment enter ed. Ordering Provid er: IRENE BURNS TWO Report Released Date/Time: Dec 03, 2021 01:30 PM Reporting Lab: [facility] [address] [facility] [address] Performing Lab: [facility] [address] [facility] [address] POC ACT 367 s 84-139 Nov 29, 2021 12:48 [facility] POC ABG/ELECTROLYTES Spec imen Type: ARTERIAL BLOOD PM Comment: Sample Type = ARTERIAL Ordering Provid er: IRENE BURNS TWO Report Released Date/Time: Nov 29, 2021 07:53 PM Reporting Lab: [facility] [address] [facility] [address] Performing Lab: [facility] [address] [facility] [address] POC PH 7.289 L 7.35-7.45 POC PCO2 [...] 4.7 mg/dL 4.50-5.30 Nov 29, 2021 12:45 [facility] FINGERSTICK GLUCOSE Speci men Type: BLOOD PM Comment: Save R esult Ordering Provid er: IRENE BURNS TWO Report Released Date/Time: Nov 29, 2021 08:08 PM Reporting Lab: [facility] [address] [facility] [address] Performing Lab: [facility] [address] [facility] [address] FINGERSTICK GLUCOSE 186 mg/dL H 70-100 Nov 29, 2021 12:26 PM [facility] POC ACT Specim en Type: BLOOD No comment enter ed. Ordering Provid er: IRENE BURNS TWO Report Released Date/Time: Dec 03, 2021 01:30 PM Reporting Lab: [facility] [address] [facility] [address] Performing Lab: [facility] [address] [facility] [address] POC ACT 367 s 84-139 Nov 29, 2021 11:58 AM [facility] POC ACT Specim en Type: BLOOD No comment enter ed. Ordering Provid er: IRENE BURNS TWO Report Released Date/Time: Dec 03, 2021 01:30 PM Reporting Lab: [facility] [address] [facility] [address] Performing Lab: [facility] [address] POC ACT 338 s 84-139 Nov 29, 2021 11:53 [facility] FINGERSTICK GLUCOSE Speci men Type: BLOOD AM Comment: Save R esult Ordering Provid er: TEAM,CARDS TWO Report Released Date/Time: Nov 29, 2021 08:08 PM Reporting Lab: [facility] [address] Performing Lab: [facility] [address] FINGERSTICK GLUCOSE 225 mg/dL H 70-100 Nov 29, 2021 11:30 AM [facility] POC ACT Specim en Type: BLOOD No comment enter ed. Ordering Provid er: IRENE BURNS TWO Report Released Date/Time: Dec 03, 2021 01:30 PM Reporting Lab: [facility] [address] Performing Lab: [facility] [address] POC ACT 355 s 84-139 Nov 29, 2021 11:26 [facility] POC ABG/ELECTROLYTES Spec imen Type: ARTERIAL BLOOD AM Comment: Sample Type = ARTERIAL Ordering Provid er: TEAM,CARDS TWO Report Released Date/Time: Nov 29, 2021 07:53 PM Reporting Lab: [facility] [address] Performing Lab: [facility] [address] POC PH 7.317 L 7.35-7.45 POC PCO2 [...] 4.8 mg/dL 4.50-5.30 Nov 29, 2021 11:06 [facility] FINGERSTICK GLUCOSE Speci men Type: BLOOD AM No comment enter ed. Ordering Provid er: IRENE BURNS Report Released Date/Time: Nov 29, 2021 08:08 PM Reporting Lab: [facility] [address] [facility] [address] Performing Lab: [facility] [address] [facility] [address] FINGERSTICK GLUCOSE 221 mg/dL H 70-100 Nov 29, 2021 11:02 AM [facility] POC ACT Specim en Type: BLOOD No comment enter ed. Ordering Provid er: IRENE BURNS Report Released Date/Time: Dec 03, 2021 01:30 PM Reporting Lab: [facility] [address] [facility] [address] Performing Lab: [facility] [address] [facility] [address] POC ACT 294 s 84-139 Nov 29, 2021 10:26 AM [facility] POC ACT Specim en Type: BLOOD No comment enter ed. Ordering Provid er: IRENE BURNS Report Released Date/Time: Dec 03, 2021 01:30 PM Reporting Lab: [facility] [address] [facility] [address] Performing Lab: [facility] [address] [facility] [address] POC ACT 329 s 84-139 Nov 29, 2021 10:06 AM [facility] POC ACT Specim en Type: BLOOD No comment enter ed. Ordering Provid er: IRENE BURNS Report Released Date/Time: Dec 03, 2021 01:30 PM Reporting Lab: [facility] [address] [facility] [address] Performing Lab: [facility] [address] [facility] [address] POC ACT 312 s 84-139 Nov 29, 2021 09:58 [facility] POC ABG/ELECTROLYTES Spec imen Type: ARTERIAL BLOOD AM Comment: Sample Type = ARTERIAL Ordering Provid er: IRENE BURNS Report Released Date/Time: Nov 29, 2021 07:53 PM Reporting Lab: [facility] [address] [facility] [address] Performing Lab: [facility] [address] [facility] [address] POC PH 7.334 L 7.35-7.45 POC PCO2 [...] 4.9 mg/dL 4.50-5.30 Nov 29, 2021 09:56 [facility] FINGERSTICK GLUCOSE Speci men Type: BLOOD AM No comment enter ed. Ordering Provid er: IRENE BURNS Report Released Date/Time: Nov 29, 2021 08:08 PM Reporting Lab: [facility] [address] [facility] [address] Performing Lab: [facility] [address] [facility] [address] FINGERSTICK GLUCOSE 194 mg/dL H 70-100 Nov 29, 2021 09:45 AM [facility] POC ACT Specim en Type: BLOOD No comment enter ed. Ordering Provid er: IRENE BURNS Report Released Date/Time: Dec 03, 2021 01:30 PM Reporting Lab: [facility] [address] [facility] [address] Performing Lab: [facility] [address] [facility] [address] POC ACT 269 s 84-139 Nov 29, 2021 08:59 AM [facility] POC ACT Specim en Type: BLOOD No comment enter ed. Ordering Provid er: IRENE BURNS TWO Report Released Date/Time: Dec 03, 2021 01:30 PM Reporting Lab: [facility] [address] [facility] [address] Performing Lab: [facility] [address] [facility] [address] POC ACT 135 s 84-139 Nov 29, 2021 [facility] COVID-19 AND FLU/RSV Specime n Type: NASOPHARYNGEAL 07:05 AM DIAG PANEL(CEPHEID) Comment: Ce phearline GeneXpert (618) Ordering Provid er: KATHERINE FIGUEROA Report Released Date/Time: Oct 29, 2021 12:22 PM Reporting Lab: [facility] [address] [facility] [address] Performing Lab: [facility] [address] COVID-19 (CEPHEID) Not Detected Not Dete cted INFLUENZA A (PCR) Not Detected Not Detec susanne INFLUENZA B (PCR) Not Detected Not Detec susanne RSV (PCR) Not Detected Not Detected Nov 29, 2021 [facility] BASIC METABOLIC Specimen Typ e: PLASMA 06:38 AM PANEL+MG No comment enter ed. Ordering Provid er: KATHERINE FIGUEROA Report Released Date/Time: Oct 29, 2021 12:22 PM Reporting Lab: [facility] [address] Performing Lab: [facility] [address] CREATININE 1.4 mg/dL H 0.7-1.2 UREA NITROGEN 23 mg/dL 8-26 GLUCOSE 201 mg/dL H 74-100 SODIUM 143 mmol/L 136-145 POTASSIUM 4.3 mmol/L 3.5-5.1 CHLORIDE 108 mmol/L H 98-107 CO2 28 mmol/L 22-29 CALCIUM 9.9 mg/dL 8.4-10.2 MAGNESIUM 1.9 mg/dL 1.6-2.6 ANION GAP 7 mmol/L 5-15 CREAT EGFR(CKD-EPI) 53 L >60 Nov 29, 2021 06:38 [facility] CBC Specimen Type: BLOOD AM No comment enter ed. Ordering Provid er: KATHERINE FIGUEROA Report Released Date/Time: Oct 29, 2021 12:22 PM Reporting Lab: [facility] [address] Performing Lab: [facility] [address] WBC 7.40 10*3/uL 4.0-11.0 RBC 5.17 10*6/uL 4.6-6.2 HGB 17.6 g/dL 13.5-17.9 HCT 52.7 41-54 MCV 101.9 fL H 80-100 MCH 34.0 pg H 27-33 MCHC 33.4 g/dL 32.0-37.5 PLT 88 10*3/uL L 150-400 MPV 14.3 fL H 7.4-10.4 RDW 14.4 11.5-14.5 IPF 18.0 H 0-10 Nov 29, 2021 [facility] PROTHROMBIN Specimen Typ e: PLASMA 06:38 AM TIME/INR No comment enter ed. Ordering Provid er: KATHERINE FIGUEROA Report Released Date/Time: Oct 29, 2021 12:22 PM Reporting Lab: [facility] [address] [facility] [address] Performing Lab: [facility] [address] [facility] [address] .INR 1.1 0.8-1.1 .PT 13.1 s H 9.4-12.5 Nov 29, 2021 [facility] ACT PART Specimen Typ e: PLASMA 06:38 AM THROMBO TIME No comment enter ed. Ordering Provid er: KATHERINE FIGUEROA Report Released Date/Time: Oct 29, 2021 12:22 PM Reporting Lab: [facility] [address] [facility] [address] Performing Lab: [facility] [address] [facility] [address] APTT 33.3 s 25.1-36.5 Social History: Smoking [...] Comment Facility Nov 29, 2021 08:36 PM [place] TOBACCO USE CURRENT NRT [facility] ACCEPT Tobacco Use History This section includes a history of the smoking, or tobacco- related health factors, that were collected on or before the date of the Encounter. The data comes from the [place] facility where the Encounter took place. Date/Time Smoking Status/Tobacco Use Comment [facility] Mar 20, 2021 11:21 AM [place] TOBACCO USE CURRENT NRT [facility] DECLINE Nov 15, 2020 10:00 AM VA-TOBACCO DOESNT USE WI 30 MIN [facility] WAKEUP Nov 15, 2020 10:00 AM VA-TOBACCO USE 30 YEARS OR MORE [facility] Nov 15, 2020 10:00 AM VA-TOBACCO USE ADVICE HO CASE [facility] Nov 15, 2020 10:00 AM VA-TOBACCO USE QUALITY CONTROL LAB TECH NO [facility] Nov 15, 2020 10:00 AM VA-TOBACCO USE MED NO [place] [facility] Nov 15, 2020 10:00 AM VA-TOBACCO USER EVERY DAY [facility] Jun 21, 2019 02:29 PM VA-TOBACCO USE 30 YEARS OR MORE [facility] Jun 21, 2019 02:29 PM VA-TOBACCO USE ADVICE [place] [facility] Jun 21, 2019 02:29 PM VA-TOBACCO USE QUALITY CONTROL LAB TECH NO [facility] Jun 21, 2019 02:29 PM VA-TOBACCO USE MED NO [place] [facility] Jun 21, 2019 02:29 PM VA-TOBACCO USE [place] 30 MIN OF WAKEUP [facility] Jun 21, 2019 02:29 PM VA-TOBACCO USER EVERY DAY [facility] Jun 09, 2018 03:48 PM VA-TOBACCO USE 30 YEARS OR MORE [facility] Jun 09, 2018 03:48 PM VA-TOBACCO USE ADVICE [place] [facility] Jun 09, 2018 03:48 PM VA-TOBACCO USE QUALITY CONTROL LAB TECH NO [facility] Jun 09, 2018 03:48 PM VA-TOBACCO USE MED NO [place] [facility] Jun 09, 2018 03:48 PM VA-TOBACCO USE [place] 30 MIN OF WAKEUP [facility] Jun 09, 2018 03:48 PM VA-TOBACCO USER EVERY DAY [facility] Jun 20, 2017 07:53 AM CURRENT TOBACCO USER [facility] Jun 19, 2016 08:41 AM CURRENT TOBACCO USER [facility] Jun 21, 2015 08:15 AM CURRENT TOBACCO USER [facility] Mar 22, 2014 10:03 AM CURRENT TOBACCO USER [facility] Mar 25, 2013 11:01 AM CURRENT TOBACCO USER [facility] Feb 05, 2012 08:55 AM CURRENT TOBACCO USER [facility] January 01, 2011 09:26 AM CURRENT TOBACCO USER [facility] Mar 07, 2010 10:02 AM CURRENT TOBACCO USER [facility] Feb 21, 2009 08:17 AM CURRENT TOBACCO USER [facility] Nov 06, 2007 10:02 AM CURRENT TOBACCO USER [facility] January 02, 2007 10:33 AM CURRENT TOBACCO USER [facility] Advance Directives: All historical and [...] Mar 06, 2005 ADVANCE DIRECTIVE GANESH RODRIGUEZ [facility] Radiology Reports: +/- 30 days of [...] 2 VIEWS PA AND LAT: MONET LUDWIG [facility] [place] [id number] -[birth year] M Exm Date: NOV 30, 2021@07:05 Req Phys: CHERRY MENDOZA Pat Loc: 3LSOB/ 2@08:05 Img Loc: MAIN X-RAY Service: zzcard sect (Case [id number] COMPLETE) CHEST 2 VIEWS PA AND LAT (R AD Detailed) CPT:90443 Reason for Study: s/p upgrade ICD adding [...] pager listed below: User placing orders pager: [phone] LAST CREATININE 1.4 H (11/29/21) Report Status: Verified Date Reported: NOV 30, 2021 Date Verified: NOV 30, 2021 Receptionist Nurse E-Sig:/ES/MONET LUDWIG MD, FACR, C CD Report: [...] [facility] [place] [id number] -[birth year] 9 M Exm Date: NOV 29, 2021@18:25 Req Phys: REJICHERRY Pat Loc: [facility] [address] [facility] (Req'g Loc) Img Loc: MAIN X-RAY Service: Unknown (Case [id number] COMPLETE) CHEST 1 VIEW (RAD Detailed) CPT:45475 Reason for Study: s/p upgrade ICD adding [...] pager listed below: User placing orders pager: [phone] LAST CREATININE 1.4 H (11/29/21) Report Status: Verified Date Reported: NOV 29, 2021 Date Verified: NOV 29, 2021 Receptionist Nurse E-Sig:/ES/MAGDALENE DAVIDSON MD Report: DATE/TIME REGISTERED: 11/29/2021 [...] Primary Interpreting Staff: MAGDALENE DAVIDSON MD, RADIOLOGIST (Receptionist Nurse) /LUAN Encounter Notes: All associated encounter notes This section contains the clinical notes associated to the Encounter. Date/Time Encounter Note(s) Provider Source Dec 21, 2021 11:54 AM CARE COORDINATION HOME [facility]LE[facility] ARIZATION NOTE: NILESH BURDICK [facility] LOCAL TITLE: HT MONTHLY MONITOR NOTE STANDARD TITLE: CARE COORDINATION HOME TELEHEALT H SUMMARIZATION DATE OF NOTE: DEC 21, 2021@11:54 ENTRY DATE: DEC 21, 2021@11:54:20 AUTHOR: NILESH BURDICK EXP COSIGNER: URGENCY: STATUS: COMPLETED The [place] is enrolled in the Home Telehealth ( HT) program and continues to be monitored via HT technology. The data sent by the [place] is reviewed and analyzed by the HT staff, who provide ongoin g case management and [place] health education while communicating and collaborating with the health care team as appropriate. This note cover s a total of 30 minutes for the month monitored. Month monitored: November/ NILESH BURDICK RN Chronic Academic Interventionist/HT Signed: 12/21/2021 11:55
--- OUTSIDE RECORDS SUMMARY | 2022-04-02 16:10 | XMS_ITS | Encounter Summary ---
:1945 Author Organization Department [facility] Address [address] [place] [id number] Care Team Providers Name Role Phone WILLA [...] MEDICARE MEDICARE PART Jun 25, PART B [id number] Saumya QUINONES PATIENT (WNR) (M) B 2011 78A 0 AVID MEDICARE MEDICARE PART Sep 25, PART A [id number] Saumya QUINONES PATIENT (WNR) (M) A 2009 78A 0 AVID MEDICARE MEDICARE PART Sep 25, PART A [id number] Saumya MICHELE (WNR) (M) A 2009 78A [phone] AVID MEDICARE MEDICARE PART Sep 25, PART B [id number] Saumya MICHELE (WNR) (M) B 2009 78A [phone] AVID Selected Encounter This section includes the information on record at [place] for the Encounter. Date/Time Encounter Type Encounter Description Reason Provider Source Dec 06, 2021 09:39 Outpatient Encounter TELEPHONE PRIMARY CARE IHE Encounter Template Text not used by [place] Plan of Treatment: Future Appointments (+ 6 months) and Future Tests (+/- 45 days) The Plan of Treatment section includes future care activities for the patient from [facility] This section includes future appointments and future orders which are active, pending orscheduled.Future Appointments This section includes appointments that were scheduled to occur 6 months from the date of the Encounter, up to a maximum of 20 appointments. The data comes from all [facility]. Appointment Date/Time Appointment Type Appointment Facili ty Name Dec 21, 2021 09:30 AM AMBULATORY - NONE [facility] January 07, 2022 01:30 PM AMBULATORY - MEDICINE [facility] Feb 05, 2022 07:00 AM AMBULATORY - [facility] Feb 07, 2022 09:30 AM AMBULATORY - NONE [facility] Feb 13, 2022 10:[address] [facility] Mar 21, 2022 09:[address] [facility] Active, Pending, and Scheduled Orders This section includes a listing of several types of active, pending, and scheduled orders, including clinic medications orders, diagnostic test orders, procedure orders and consult orders; where the start date of the order is 45 days before the date of the Encounter or 45 days after the date of the Encounter. The data comes from all [facility]. Test Date/Time Test Type Test Details Facility Name Nov 29, 2021 06:30 AM Laboratory - Blood Bank TYPE & SCREEN - LA B [facility] Order BLOOD SP Dec 15, 2021 12:00 AM Laboratory - Chemistry BASIC METABOLIC MIN [facility] Order PANEL+MG PLASMA SP Lab Results: [...] Reference Range Comment Nov 30, 2021 11:26 [facility] FINGERSTICK GLUCOSE Speci men Type: BLOOD AM Comment: [place] Nurse Notified Ordering Provid er: TEAM,CARDS TWO Report Released Date/Time: Nov 30, 2021 11:46 AM Reporting Lab: [facility] [address] [facility] [address] Performing Lab: [facility] [address] [facility] [address] FINGERSTICK GLUCOSE 284 mg/dL H 70-100 Nov 30, 2021 09:47 AM [facility] ALBUMIN Specim en Type: PLASMA No comment enter ed. Ordering Provid er: ELIUD DINERO Report Released Date/Time: Nov 29, 2021 07:53 PM Reporting Lab: [facility] [address] [facility] [address] Performing Lab: [facility] [address] [facility] [address] ALBUMIN 3.4 g/dL L 3.5-5.2 Nov 30, 2021 09:47 [facility] BASIC METABOLIC Specimen Type: PLASMA AM PANEL+MG No comment enter ed. Ordering Provid er: ANGIE MALHOTRA Report Released Date/Time: Nov 29, 2021 08:12 PM Reporting Lab: [facility] [address] [facility] [address] Performing Lab: [facility] [address] [facility] [address] CREATININE 1.2 mg/dL 0.7-1.2 UREA NITROGEN 18 mg/dL 8-26 GLUCOSE 342 mg/dL H 74-100 SODIUM 141 mmol/L 136-145 POTASSIUM 4.3 mmol/L 3.5-5.1 CHLORIDE 108 mmol/L H 98-107 CO2 26 mmol/L 22-29 CALCIUM 8.6 mg/dL 8.4-10.2 MAGNESIUM 1.5 mg/dL L 1.6-2.6 ANION GAP 7 mmol/L 5-15 CREAT EGFR(CKD-EPI) 63 >60 Nov 30, 2021 09:46 AM [facility] CBC Specim en Type: BLOOD No comment enter ed. Ordering Provid er: ANGIE MALHOTRA Report Released Date/Time: Nov 29, 2021 08:12 PM Reporting Lab: [facility] [address] [facility] [address] Performing Lab: [facility] [address] [facility] [address] WBC 10.61 10*3/uL 4.0-11.0 RBC 4.33 10*6/uL L 4.6-6.2 HGB 14.6 g/dL 13.5-17.9 HCT 45.2 41-54 MCV 104.4 fL H 80-100 MCH 33.7 pg H 27-33 MCHC 32.3 g/dL 32.0-37.5 PLT 71 10*3/uL L 150-400 MPV 13.9 fL H 7.4-10.4 RDW 14.7 H 11.5-14.5 IPF 17.8 H 0-10 Nov 30, 2021 06:09 [facility] FINGERSTICK GLUCOSE Speci men Type: BLOOD AM Comment: [place] Nurse Notified Ordering Provid er: IRENE BURNS TWO Report Released Date/Time: Nov 30, 2021 06:32 AM Reporting Lab: [facility] [address] [facility] [address] Performing Lab: [facility] [address] [facility] [address] FINGERSTICK GLUCOSE 165 mg/dL H 70-100 Nov 29, 2021 07:35 [facility] FINGERSTICK GLUCOSE Speci men Type: BLOOD PM Comment: [place] Nurse Notified Ordering Provid er: IRENE BURNS TWO Report Released Date/Time: Nov 29, 2021 07:48 PM Reporting Lab: [facility] [address] [facility] [address] Performing Lab: [facility] [address] [facility] [address] FINGERSTICK GLUCOSE 160 mg/dL H 70-100 Nov 29, 2021 06:52 [facility] FINGERSTICK GLUCOSE Speci men Type: BLOOD PM Comment: [place] Nurse Notified Ordering Provid er: SAKSHI CROUCH Report Released Date/Time: Nov 29, 2021 07:04 PM Reporting Lab: [facility] [address] [facility] [address] Performing Lab: [facility] [address] [facility] [address] FINGERSTICK GLUCOSE 161 mg/dL H 70-100 Nov 29, 2021 04:18 [facility] FINGERSTICK GLUCOSE Speci men Type: BLOOD PM No comment enter ed. Ordering Provid er: IRENE BURNS TWO Report Released Date/Time: Nov 29, 2021 08:08 PM Reporting Lab: [facility] [address] [facility] [address] Performing Lab: [facility] [address] [facility] [address] FINGERSTICK GLUCOSE 179 mg/dL H 70-100 Nov 29, 2021 03:26 [facility] POC ABG/ELECTROLYTES Spec imen Type: ARTERIAL BLOOD PM Comment: Sample Type = ARTERIAL Ordering Provid er: IRENE BURNS TWO Report Released Date/Time: Nov 29, 2021 07:53 PM Reporting Lab: [facility] [address] Performing Lab: [facility] [address] POC PH 7.321 L 7.35-7.45 POC PCO2 [...] mg/dL L 4.50-5.30 Nov 29, 2021 03:24 [facility] FINGERSTICK GLUCOSE Speci men Type: BLOOD PM Comment: Save R esult Ordering Provid er: TEAM,CARDS TWO Report Released Date/Time: Nov 29, 2021 08:08 PM Reporting Lab: [facility] [address] Performing Lab: [facility] [address] FINGERSTICK GLUCOSE 188 mg/dL H 70-100 Nov 29, 2021 02:06 [facility] POC ABG/ELECTROLYTES Spec imen Type: ARTERIAL BLOOD PM Comment: Sample Type = ARTERIAL Ordering Provid er: TEAM,CARDS TWO Report Released Date/Time: Nov 29, 2021 07:53 PM Reporting Lab: [facility] [address] Performing Lab: [facility] [address] POC PH 7.313 L 7.35-7.45 POC PCO2 [...] mg/dL L 4.50-5.30 Nov 29, 2021 02:04 [facility] FINGERSTICK GLUCOSE Speci men Type: BLOOD PM Comment: Save R esult Ordering Provid er: IRENE BURNS Report Released Date/Time: Nov 29, 2021 08:08 PM Reporting Lab: [facility] [address] [facility] [address] Performing Lab: [facility] [address] [facility] [address] FINGERSTICK GLUCOSE 236 mg/dL H 70-100 Nov 29, 2021 01:52 PM [facility] POC ACT Specim en Type: BLOOD No comment enter ed. Ordering Provid er: IRENE BURNS Report Released Date/Time: Dec 03, 2021 01:31 PM Reporting Lab: [facility] [address] [facility] [address] Performing Lab: [facility] [address] [facility] [address] POC ACT 135 s 84-139 Nov 29, 2021 01:16 PM [facility] POC ACT Specim en Type: BLOOD No comment enter ed. Ordering Provid er: IRENE BURNS Report Released Date/Time: Dec 03, 2021 01:30 PM Reporting Lab: [facility] [address] [facility] [address] Performing Lab: [facility] [address] [facility] [address] POC ACT 355 s 84-139 Nov 29, 2021 12:49 PM [facility] POC ACT Specim en Type: BLOOD No comment enter ed. Ordering Provid er: IRENE BURNS Report Released Date/Time: Dec 03, 2021 01:30 PM Reporting Lab: [facility] [address] [facility] [address] Performing Lab: [facility] [address] [facility] [address] POC ACT 367 s 84-139 Nov 29, 2021 12:48 [facility] POC ABG/ELECTROLYTES Spec imen Type: ARTERIAL BLOOD PM Comment: Sample Type = ARTERIAL Ordering Provid er: IRENE BURNS Report Released Date/Time: Nov 29, 2021 07:53 PM Reporting Lab: [facility] [address] [facility] [address] Performing Lab: [facility] [address] [facility] [address] POC PH 7.289 L 7.35-7.45 POC PCO2 [...] 4.7 mg/dL 4.50-5.30 Nov 29, 2021 12:45 [facility] FINGERSTICK GLUCOSE Speci men Type: BLOOD PM Comment: Abram R pranav Ordering Provid er: IRENE BURNS TWO Report Released Date/Time: Nov 29, 2021 08:08 PM Reporting [facility] [address] Performing Lab: [facility] [address] FINGERSTICK GLUCOSE 186 mg/dL H 70-100 Nov 29, 2021 12:26 PM [facility] POC ACT Specim en Type: BLOOD No comment enter ed. Ordering Provid er: IRENE BURNS TWO Report Released Date/Time: Dec 03, 2021 01:30 PM Reporting Lab: [facility] [address] [facility] [address] Performing Lab: [facility] [address] POC ACT 367 s 84-139 Nov 29, 2021 11:58 AM [facility] POC ACT Specim en Type: BLOOD No comment enter ed. Ordering Provid er: IRENE BURNS TWO Report Released Date/Time: Dec 03, 2021 01:30 PM Reporting Lab: [facility] [address] [facility] [address] Performing Lab: [facility] [address] POC ACT 338 s 84-139 Nov 29, 2021 11:53 [facility] FINGERSTICK GLUCOSE Speci men Type: BLOOD AM Comment: Save R esult Ordering Provid er: IRENE BURNS TWO Report Released Date/Time: Nov 29, 2021 08:08 PM Reporting Lab: [facility] [address] Performing Lab: [facility] [address] FINGERSTICK GLUCOSE 225 mg/dL H 70-100 Nov 29, 2021 11:30 AM [facility] POC ACT Specim en Type: BLOOD No comment enter ed. Ordering Provid er: GRANTCARDS TWO Report Released Date/Time: Dec 03, 2021 01:30 PM Reporting Lab: [facility] [address] Performing Lab: [facility] [address] POC ACT 355 s 84-139 Nov 29, 2021 11:26 [facility] POC ABG/ELECTROLYTES Spec imen Type: ARTERIAL BLOOD AM Comment: Sample Type = ARTERIAL Ordering Provid er: IRENE BURNS TWO Report Released Date/Time: Nov 29, 2021 07:53 PM Reporting Lab: [facility] [address] Performing Lab: [facility] [address] POC PH 7.317 L 7.35-7.45 POC PCO2 [...] 4.8 mg/dL 4.50-5.30 Nov 29, 2021 11:06 [facility] FINGERSTICK GLUCOSE Speci men Type: BLOOD AM No comment enter ed. Ordering Provid er: IRENE BURNS Report Released Date/Time: Nov 29, 2021 08:08 PM Reporting Lab: [facility] [address] Performing Lab: [facility] [address] FINGERSTICK GLUCOSE 221 mg/dL H 70-100 Nov 29, 2021 11:02 AM [facility] POC ACT Specim en Type: BLOOD No comment enter ed. Ordering Provid er: IRENE BURNS Report Released Date/Time: Dec 03, 2021 01:30 PM Reporting Lab: [facility] [address] [facility] [address] Performing Lab: [facility] [address] [facility] [address] POC ACT 294 s 84-139 Nov 29, 2021 10:26 AM [facility] POC ACT Specim en Type: BLOOD No comment enter ed. Ordering Provid er: IRENE BURNS Report Released Date/Time: Dec 03, 2021 01:30 PM Reporting Lab: [facility] [address] [facility] [address] Performing Lab: [facility] [address] POC ACT 329 s 84-139 Nov 29, 2021 10:06 AM [facility] POC ACT Specim en Type: BLOOD No comment enter ed. Ordering Provid er: IRENE BURNS Report Released Date/Time: Dec 03, 2021 01:30 PM Reporting Lab: [facility] [address] [facility] [address] Performing Lab: [facility] [address] [facility] [address] POC ACT 312 s 84-139 Nov 29, 2021 09:58 [facility] POC ABG/ELECTROLYTES Spec imen Type: ARTERIAL BLOOD AM Comment: Sample Type = ARTERIAL Ordering Provid er: IRENE BURNS Report Released Date/Time: Nov 29, 2021 07:53 PM Reporting Lab: [facility] [address] [facility] [address] Performing Lab: [facility] [address] [facility] [address] POC PH 7.334 L 7.35-7.45 POC PCO2 [...] 4.9 mg/dL 4.50-5.30 Nov 29, 2021 09:56 [facility] FINGERSTICK GLUCOSE Speci men Type: BLOOD AM No comment enter ed. Ordering Provid er: IRENE BURNS TWO Report Released Date/Time: Nov 29, 2021 08:08 PM Reporting Lab: [facility] [address] [facility] [address] Performing Lab: [facility] [address] [facility] [address] FINGERSTICK GLUCOSE 194 mg/dL H 70-100 Nov 29, 2021 09:45 AM [facility] POC ACT Specim en Type: BLOOD No comment enter ed. Ordering Provid er: IRENE BURNS Report Released Date/Time: Dec 03, 2021 01:30 PM Reporting Lab: [facility] [address] [facility] [address] Performing Lab: [facility] [address] POC ACT 269 s 84-139 Nov 29, 2021 08:59 AM [facility] POC ACT Specim en Type: BLOOD No comment enter ed. Ordering Provid er: IRENE BURNS TWO Report Released Date/Time: Dec 03, 2021 01:30 PM Reporting Lab: [facility] [address] [facility] [address] Performing Lab: [facility] [address] [facility] [address] POC ACT 135 s 84-139 Nov 29, 2021 [facility] COVID-19 AND FLU/RSV Specime n Type: NASOPHARYNGEAL 07:05 AM DIAG PANEL(CEPHEID) Comment: Ce pheid GeneXpert (618) Ordering Provid er: KATHERINE FIGUEROA Report Released Date/Time: Oct 29, 2021 12:22 PM Reporting Lab: [facility] [address] [facility] [address] Performing Lab: [facility] [address] [facility] [address] COVID-19 (CEPHEID) Not Detected Not Dete cted INFLUENZA A (PCR) Not Detected Not Detec susanne INFLUENZA B (PCR) Not Detected Not Detec susanne RSV (PCR) Not Detected Not Detected Nov 29, 2021 [facility] BASIC METABOLIC Specimen Typ e: PLASMA 06:38 AM PANEL+MG No comment enter ed. Ordering Provid er: KATHERINE FIGUEROA Report Released Date/Time: Oct 29, 2021 12:22 PM Reporting Lab: [facility] [address] [facility] [address] Performing Lab: [facility] [address] CREATININE 1.4 mg/dL H 0.7-1.2 UREA NITROGEN 23 mg/dL 8-26 GLUCOSE 201 mg/dL H 74-100 SODIUM 143 mmol/L 136-145 POTASSIUM 4.3 mmol/L 3.5-5.1 CHLORIDE 108 mmol/L H 98-107 CO2 28 mmol/L 22-29 CALCIUM 9.9 mg/dL 8.4-10.2 MAGNESIUM 1.9 mg/dL 1.6-2.6 ANION GAP 7 mmol/L 5-15 CREAT EGFR(CKD-EPI) 53 L >60 Nov 29, 2021 06:38 [facility] CBC Specimen Type: BLOOD AM No comment enter ed. Ordering Provid er: KATHERINE FIGUEROA Report Released Date/Time: Oct 29, 2021 12:22 PM Reporting Lab: [facility] [address] [facility] [address] Performing Lab: [facility] [address] WBC 7.40 10*3/uL 4.0-11.0 RBC 5.17 10*6/uL 4.6-6.2 HGB 17.6 g/dL 13.5-17.9 HCT 52.7 41-54 MCV 101.9 fL H 80-100 MCH 34.0 pg H 27-33 MCHC 33.4 g/dL 32.0-37.5 PLT 88 10*3/uL L 150-400 MPV 14.3 fL H 7.4-10.4 RDW 14.4 11.5-14.5 IPF 18.0 H 0-10 Nov 29, 2021 [facility] PROTHROMBIN Specimen Typ e: PLASMA 06:38 AM TIME/INR No comment enter ed. Ordering Provid er: KATHERINE FIGUEROA Report Released Date/Time: Oct 29, 2021 12:22 PM Reporting Lab: [facility] [address] Performing Lab: [facility] [address] [facility] [address] .INR 1.1 0.8-1.1 .PT 13.1 s H 9.4-12.5 Nov 29, 2021 [facility] ACT PART Specimen Typ e: PLASMA 06:38 AM THROMBO TIME No comment enter ed. Ordering Provid er: KATHERINE FIGUEROA Report Released Date/Time: Oct 29, 2021 12:22 PM Reporting Lab: [facility] [address] [facility] [address] Performing Lab: [facility] [address] [facility] [address] APTT 33.3 s 25.1-36.5 Social History: Smoking [...] 08:36 PM [facility] TOBACCO USE CURRENT NRT [facility] ACCEPT Tobacco Use History This section includes a history of the smoking, or tobacco- related health factors, that were collected on or before the date of the Encounter. The data comes from the [place] facility where the Encounter took place. 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 [facility] Nov 15, 2020 10:00 AM VA-TOBACCO USE MED NO [place] [facility] Nov 15, 2020 10:00 AM VA-TOBACCO USER EVERY DAY [facility] Jun 21, 2019 02:29 PM VA-TOBACCO USE 30 YEARS OR MORE [facility] Jun 21, 2019 02:29 PM VA-TOBACCO USE ADVICE [place] [facility] Jun 21, 2019 02:29 PM VA-TOBACCO USE 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 [facility] Jun 21, 2019 02:29 PM [facility]CO [facility] Jun 21, 2019 02:29 PM VA-TOBACCO USE [place] 30 MIN OF WAKEUP [facility] Jun 21, 2019 02:29 PM VA-TOBACCO USER EVERY DAY [facility] Jun 09, 2018 03:48 PM VA-TOBACCO USE 30 YEARS OR MORE [facility] Jun 09, 2018 03:48 PM VA-TOBACCO USE [facility]ICE [facility] Jun 09, 2018 03:48 PM VA-TOBACCO USE 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 [facility] Jun 09, 2018 03:48 PM VA-TOBACCO USE MED NO [facility] Jun 09, 2018 03:48 PM VA-TOBACCO USE [place] 30 MIN OF WAKEUP [facility] Jun 09, 2018 03:48 PM VA-TOBACCO USER EVERY DAY [facility] Jun 20, 2017 07:53 AM CURRENT [...] Mar 06, 2005 ADVANCE DIRECTIVE GANESH RODRIGUEZ [facility] Radiology Reports: +/- 30 days of [...] 2 VIEWS PA AND LAT: MONET LUDWIG [facility] PAUL MICHELE [id number] -[birth year] M Exm Date: NOV 30, 2021@07:05 Req Phys: CHERRY MENDOZA Loc: 3LSOB/ 2@08:05 Img Loc: MAIN X-RAY Service: zzcard sect (Case [id number] COMPLETE) CHEST 2 VIEWS PA AND LAT (R AD Detailed) CPT:36746 Reason for Study: s/p upgrade ICD adding an A l ead Clinical History: Post ICD or Pacemaker: Verify Lead Placement. [place] IS NOT under investigation for COVID-19 or is COVID-19 negative s/p upgrade ICD adding an A lead Responsible pr ovider name and phone number to notify for critical findings if other than user placing the order and pager listed below: User placing orders pager: [phone] LAST CREATININE 1.4 H (11/29/21) Report Status: Verified Date Reported: NOV 30, 2021 Date Verified: NOV 30, 2021 [employer] E-Sig:/ES/MONET LUDWIG MD, FACR, C CD Report: [...] 06:25 PM CHEST 1 VIEW: MAGDALENE DAVIDSON [facility] PAUL MICHELE [id number] -[birth year] M Exm Date: NOV 29, 2021@18:25 Req Phys: CHERRY MENDOZA Pat Loc: [facility] [address] AY (Req'g Loc) Img Loc: MAIN X-RAY Service: Unknown (Case [id number] COMPLETE) CHEST 1 VIEW (RAD Detailed) CPT:53790 Reason for Study: s/p upgrade ICD adding an A l ead Clinical History: Immediate Post-Op Pacemaker/ICD placement [place] IS NOT under investigation for COVID-19 or is COVID-19 negative s/p upgrade his ICD to dual chamber (adding an A lead) Responsible provider name and phone number to n otify for critical findings if other than user placing the order a nd pager listed below: User placing orders pager: [phone] LAST CREATININE 1.4 H (11/29/21) Report Status: Verified Date Reported: NOV 29, 2021 Date Verified: NOV 29, 2021 [employer] E-Sig:/ES/MAGDALENE DAVIDSON MD Report: DATE/TIME REGISTERED: 11/29/2021 [...] Primary Interpreting Staff: MAGDALENE DAVIDSON MD, RADIOLOGIST ([employer]) /LUAN Encounter Notes: All associated encounter notes This section contains the clinical notes associated to the Encounter. Date/Time Encounter Note(s) Provider Source Dec 06, 2021 09:39 AM REPORT OF CONTACT: RUST,PRITI L [facility] LOCAL TITLE: PATIENT CONTACT NOTE STANDARD TITLE: REPORT OF CONTACT DATE OF NOTE: DEC 06, 2021@09:39 ENTRY DATE: DEC 06, 2021@09:39:35 AUTHOR: PRITI MARIE COSIGNER: URGENCY: STATUS: COMPLETED Patient contact Name of [place]: PAUL MICHELE Name/Relationship of Contact if other than Veter an: Date & Time of Contact: Nov@09:39 Type of Contact: Other REMINDER LETTER Reason for Contact: 15 Days Reminder letter sent to to send [employer] data update. System - [employer] [place] was mailed a reminder letter to upload / contact your nurse case management if there are technical difficulties or questions. /billy/ PRITI MARIE OPERATIONS ASSOCIATE Signed: 12/06/2021 09:41 Receipt Acknowledged By: * AWAITING SIGNATURE * NILESH BURDICK
--- OUTSIDE RECORDS SUMMARY | 2022-04-02 16:10 | XMS_ITS | Encounter Summary ---
:1945 Author Organization Department [facility] Address [address] [place] [id number] Care Team Providers Name Role Phone WILLA [...] MEDICARE MEDICARE PART Jun 25, PART B [id number] Saumya QUINONES PATIENT (WNR) (M) B 2011 78A 0 AVID MEDICARE MEDICARE PART Sep 25, PART A [id number] Saumya QUINONES PATIENT (WNR) (M) A 2009 78A 0 AVID MEDICARE MEDICARE PART Sep 25, PART A [id number] Saumya MICHELE (WNR) (M) A 2009 78A [phone] AVID MEDICARE MEDICARE PART Sep 25, PART B [id number] Saumya MICHELE (WNR) (M) B 2009 78A [phone] AVID Selected Encounter This section includes the information on record at [place] for the Encounter. Date/Time Encounter Type Encounter Description Reason Provider Source Dec 05, 2021 12:00 Outpatient Encounter [facility]ITY [facility]ARE AM CONSULT IHE Encounter Template Text not used by [facility] Plan of Treatment: Future Appointments (+ 6 months) and Future Tests (+/- 45 days) The Plan of Treatment section includes future care activities for the patient from all [place] [facility] This section includes future appointments and future orders which are active, pending orscheduled.Future Appointments This section includes appointments that were scheduled to occur 6 months from the date of the Encounter, up to a maximum of 20 appointments. The data comes from all [facility]. Appointment Date/Time Appointment Type Appointment Facili ty Name Dec 21, 2021 09:30 AM AMBULATORY - NONE [facility] January 07, 2022 01:30 PM AMBULATORY - MEDICINE [facility] Feb 05, 2022 07:00 AM AMBULATORY - [facility] Feb 07, 2022 09:30 AM AMBULATORY - NONE [facility] Feb 13, 2022 10:00 AM AMBULATORY [facility] Mar 21, 2022 09:30 AM AMBULATORY [facility] Active, Pending, and Scheduled Orders This section includes a listing of several types of active, pending, and scheduled orders, including clinic medications orders, diagnostic test orders, procedure orders and consult orders; where the start date of the order is 45 days before the date of the Encounter or 45 days after the date of the Encounter. The data comes from all [facility]. Test Date/Time Test Type Test Details Facility Name Nov 29, 2021 06:30 AM Laboratory - Blood Bank TYPE & SCREEN - LA B [facility] Order BLOOD SP Dec 15, 2021 12:00 AM Laboratory - Chemistry BASIC METABOLIC MIN [facility] Order PANEL+MG PLASMA SP Lab Results: [...] Reference Range Comment Nov 30, 2021 11:26 [facility] FINGERSTICK GLUCOSE Speci men Type: BLOOD AM Comment: [place] Nurse Notified Ordering Provid er: TEAM,CARDS TWO Report Released Date/Time: Nov 30, 2021 11:46 AM Reporting Lab: [facility] [address] [facility] [address] Performing Lab: [facility] [address] [facility] [address] [facility] [address] FINGERSTICK GLUCOSE 284 mg/dL H 70-100 Nov 30, 2021 09:47 AM [facility] ALBUMIN Specim en Type: PLASMA No comment enter ed. Ordering Provid er: ELIUD DINERO Report Released Date/Time: Nov 29, 2021 07:53 PM Reporting Lab: [facility] [address] [facility] [address] Performing Lab: [facility] [address] [facility] [address] ALBUMIN 3.4 g/dL L 3.5-5.2 Nov 30, 2021 09:47 [facility] BASIC METABOLIC Specimen Type: PLASMA AM PANEL+MG No comment enter ed. Ordering Provid er: ANGIE MALHOTRA Report Released Date/Time: Nov 29, 2021 08:12 PM Reporting Lab: [facility] [address] [facility] [address] Performing Lab: [facility] [address] [facility] [address] CREATININE 1.2 mg/dL 0.7-1.2 UREA NITROGEN 18 mg/dL 8-26 GLUCOSE 342 mg/dL H 74-100 SODIUM 141 mmol/L 136-145 POTASSIUM 4.3 mmol/L 3.5-5.1 CHLORIDE 108 mmol/L H 98-107 CO2 26 mmol/L 22-29 CALCIUM 8.6 mg/dL 8.4-10.2 MAGNESIUM 1.5 mg/dL L 1.6-2.6 ANION GAP 7 mmol/L 5-15 CREAT EGFR(CKD-EPI) 63 >60 Nov 30, 2021 09:46 AM [facility] CBC Specim en Type: BLOOD No comment enter ed. Ordering Provid er: ANGIE MALHOTRA Report Released Date/Time: Nov 29, 2021 08:12 PM Reporting Lab: [facility] [address] [facility] [address] Performing Lab: [facility] [address] [facility] [address] WBC 10.61 10*3/uL 4.0-11.0 RBC 4.33 10*6/uL L 4.6-6.2 HGB 14.6 g/dL 13.5-17.9 HCT 45.2 41-54 MCV 104.4 fL H 80-100 MCH 33.7 pg H 27-33 MCHC 32.3 g/dL 32.0-37.5 PLT 71 10*3/uL L 150-400 MPV 13.9 fL H 7.4-10.4 RDW 14.7 H 11.5-14.5 IPF 17.8 H 0-10 Nov 30, 2021 06:09 [facility] FINGERSTICK GLUCOSE Speci men Type: BLOOD AM Comment: [place] Nurse Notified Ordering Provid er: IRENE BURNS TWO Report Released Date/Time: Nov 30, 2021 06:32 AM Reporting Lab: [facility] [address] [facility] [address] Performing Lab: [facility] [address] [facility] [address] FINGERSTICK GLUCOSE 165 mg/dL H 70-100 Nov 29, 2021 07:35 [facility] FINGERSTICK GLUCOSE Speci men Type: BLOOD PM Comment: [place] Nurse Notified Ordering Provid er: IRENE BURNS TWO Report Released Date/Time: Nov 29, 2021 07:48 PM Reporting Lab: [facility] [address] [facility] [address] Performing Lab: [facility] [address] [facility] [address] FINGERSTICK GLUCOSE 160 mg/dL H 70-100 Nov 29, 2021 06:52 [facility] FINGERSTICK GLUCOSE Speci men Type: BLOOD PM Comment: [place] Nurse Notified Ordering Provid er: SAKSHI CROUCH Report Released Date/Time: Nov 29, 2021 07:04 PM Reporting Lab: [facility] [address] [facility] [address] Performing Lab: [facility] [address] [facility] [address] FINGERSTICK GLUCOSE 161 mg/dL H 70-100 Nov 29, 2021 04:18 [facility] FINGERSTICK GLUCOSE Speci men Type: BLOOD PM No comment enter ed. Ordering Provid er: IRENE BURNS TWO Report Released Date/Time: Nov 29, 2021 08:08 PM Reporting Lab: [facility] [address] [facility] [address] Performing Lab: [facility] [address] [facility] [address] FINGERSTICK GLUCOSE 179 mg/dL H 70-100 Nov 29, 2021 03:26 [facility] POC ABG/ELECTROLYTES Spec imen Type: ARTERIAL BLOOD PM Comment: Sample Type = ARTERIAL Ordering Provid er: IRENE BURNS TWO Report Released Date/Time: Nov 29, 2021 07:53 PM Reporting Lab: [facility] [address] Performing Lab: [facility] [address] POC PH 7.321 L 7.35-7.45 POC PCO2 [...] mg/dL L 4.50-5.30 Nov 29, 2021 03:24 [facility] FINGERSTICK GLUCOSE Speci men Type: BLOOD PM Comment: Save R esult Ordering Provid er: TEAM,CARDS TWO Report Released Date/Time: Nov 29, 2021 08:08 PM Reporting Lab: [facility] [address] Performing Lab: [facility] [address] FINGERSTICK GLUCOSE 188 mg/dL H 70-100 Nov 29, 2021 02:06 [facility] POC ABG/ELECTROLYTES Spec imen Type: ARTERIAL BLOOD PM Comment: Sample Type = ARTERIAL Ordering Provid er: TEAM,CARDS TWO Report Released Date/Time: Nov 29, 2021 07:53 PM Reporting Lab: [facility] [address] Performing Lab: [facility] [address] POC PH 7.313 L 7.35-7.45 POC PCO2 [...] mg/dL L 4.50-5.30 Nov 29, 2021 02:04 [facility] FINGERSTICK GLUCOSE Speci men Type: BLOOD PM Comment: Save R esult Ordering Provid er: IRENE BURNS Report Released Date/Time: Nov 29, 2021 08:08 PM Reporting Lab: [facility] [address] [facility] [address] Performing Lab: [facility] [address] [facility] [address] FINGERSTICK GLUCOSE 236 mg/dL H 70-100 Nov 29, 2021 01:52 PM [facility] POC ACT Specim en Type: BLOOD No comment enter ed. Ordering Provid er: IRENE BURNS Report Released Date/Time: Dec 03, 2021 01:31 PM Reporting Lab: [facility] [address] [facility] [address] Performing Lab: [facility] [address] [facility] [address] POC ACT 135 s 84-139 Nov 29, 2021 01:16 PM [facility] POC ACT Specim en Type: BLOOD No comment enter ed. Ordering Provid er: IRENE BURNS Report Released Date/Time: Dec 03, 2021 01:30 PM Reporting Lab: [facility] [address] [facility] [address] Performing Lab: [facility] [address] [facility] [address] POC ACT 355 s 84-139 Nov 29, 2021 12:49 PM [facility] POC ACT Specim en Type: BLOOD No comment enter ed. Ordering Provid er: IRENE BURNS Report Released Date/Time: Dec 03, 2021 01:30 PM Reporting Lab: [facility] [address] [facility] [address] Performing Lab: [facility] [address] [facility] [address] POC ACT 367 s 84-139 Nov 29, 2021 12:48 [facility] POC ABG/ELECTROLYTES Spec imen Type: ARTERIAL BLOOD PM Comment: Sample Type = ARTERIAL Ordering Provid er: IRENE BURNS Report Released Date/Time: Nov 29, 2021 07:53 PM Reporting Lab: [facility] [address] [facility] [address] Performing Lab: [facility] [address] [facility] [address] POC PH 7.289 L 7.35-7.45 POC PCO2 [...] 4.7 mg/dL 4.50-5.30 Nov 29, 2021 12:45 [facility] FINGERSTICK GLUCOSE Speci men Type: BLOOD PM Comment: Abram R pranav Ordering Provid er: IRENE BURNS TWO Report Released Date/Time: Nov 29, 2021 08:08 PM Reporting [facility] [address] [facility]forming Lab[facility] [address] FINGERSTICK GLUCOSE 186 mg/dL H 70-100 Nov 29, 2021 12:26 PM [facility] POC ACT Specim en Type: BLOOD No comment enter ed. Ordering Provid er: IRENE BURNS TWO Report Released Date/Time: Dec 03, 2021 01:30 PM Reporting Lab: [facility] [address] [facility] [address] Performing Lab: [facility] [address] [facility] [address] POC ACT 367 s 84-139 Nov 29, 2021 11:58 AM [facility] POC ACT Specim en Type: BLOOD No comment enter ed. Ordering Provid er: IRENE BURNS TWO Report Released Date/Time: Dec 03, 2021 01:30 PM Reporting Lab: [facility] [address] [facility] [address] Performing Lab: [facility] [address] [facility] [address] POC ACT 338 s 84-139 Nov 29, 2021 11:53 [facility] FINGERSTICK GLUCOSE Speci men Type: BLOOD AM Comment: Save R esult Ordering Provid er: IRENE BURNS TWO Report Released Date/Time: Nov 29, 2021 08:08 PM Reporting Lab: [facility] [address] Performing Lab: [facility] [address] FINGERSTICK GLUCOSE 225 mg/dL H 70-100 Nov 29, 2021 11:30 AM [facility] POC ACT Specim en Type: BLOOD No comment enter ed. Ordering Provid er: GRANTCARDS TWO Report Released Date/Time: Dec 03, 2021 01:30 PM Reporting Lab: [facility] [address] Performing Lab: [facility] [address] POC ACT 355 s 84-139 Nov 29, 2021 11:26 [facility] POC ABG/ELECTROLYTES Spec imen Type: ARTERIAL BLOOD AM Comment: Sample Type = ARTERIAL Ordering Provid er: IRENE BURNS TWO Report Released Date/Time: Nov 29, 2021 07:53 PM Reporting Lab: [facility] [address] Performing Lab: [facility] [address] POC PH 7.317 L 7.35-7.45 POC PCO2 [...] 4.8 mg/dL 4.50-5.30 Nov 29, 2021 11:06 [facility] FINGERSTICK GLUCOSE Speci men Type: BLOOD AM No comment enter ed. Ordering Provid er: IRENE BURNS Report Released Date/Time: Nov 29, 2021 08:08 PM Reporting Lab: [facility] [address] Performing Lab: [facility] [address] FINGERSTICK GLUCOSE 221 mg/dL H 70-100 Nov 29, 2021 11:02 AM [facility] POC ACT Specim en Type: BLOOD No comment enter ed. Ordering Provid er: IRENE BURNS Report Released Date/Time: Dec 03, 2021 01:30 PM Reporting Lab: [facility] [address] [facility] [address] Performing Lab: [facility] [address] [facility] [address] POC ACT 294 s 84-139 Nov 29, 2021 10:26 AM [facility] POC ACT Specim en Type: BLOOD No comment enter ed. Ordering Provid er: IRENE BURNS Report Released Date/Time: Dec 03, 2021 01:30 PM Reporting Lab: [facility] [address] [facility] [address] Performing Lab: [facility] [address] [facility] [address] POC ACT 329 s 84-139 Nov 29, 2021 10:06 AM [facility] POC ACT Specim en Type: BLOOD No comment enter ed. Ordering Provid er: IRENE BURNS Report Released Date/Time: Dec 03, 2021 01:30 PM Reporting Lab: [facility] [address] [facility] [address] Performing Lab: [facility] [address] [facility] [address] POC ACT 312 s 84-139 Nov 29, 2021 09:58 [facility] POC ABG/ELECTROLYTES Spec imen Type: ARTERIAL BLOOD AM Comment: Sample Type = ARTERIAL Ordering Provid er: IRENE BURNS Report Released Date/Time: Nov 29, 2021 07:53 PM Reporting Lab: [facility] [address] [facility] [address] Performing Lab: [facility] [address] [facility] [address] POC PH 7.334 L 7.35-7.45 POC PCO2 [...] 4.9 mg/dL 4.50-5.30 Nov 29, 2021 09:56 [facility] FINGERSTICK GLUCOSE Speci men Type: BLOOD AM No comment enter ed. Ordering Provid er: IRENE BURNS TWO Report Released Date/Time: Nov 29, 2021 08:08 PM Reporting Lab: [facility] [address] [facility] [address] Performing Lab: [facility] [address] [facility] [address] FINGERSTICK GLUCOSE 194 mg/dL H 70-100 Nov 29, 2021 09:45 AM [facility] POC ACT Specim en Type: BLOOD No comment enter ed. Ordering Provid er: IRENE BURNS Report Released Date/Time: Dec 03, 2021 01:30 PM Reporting Lab: [facility] [address] [facility] [address] Performing Lab: [facility] [address] [facility] [address] POC ACT 269 s 84-139 Nov 29, 2021 08:59 AM [facility] POC ACT Specim en Type: BLOOD No comment enter ed. Ordering Provid er: IRENE BURNS TWO Report Released Date/Time: Dec 03, 2021 01:30 PM Reporting Lab: [facility] [address] [facility] [address] Performing Lab: [facility] [address] [facility] [address] POC ACT 135 s 84-139 Nov 29, 2021 [facility] COVID-19 AND FLU/RSV Specime n Type: NASOPHARYNGEAL 07:05 AM DIAG PANEL(CEPHEID) Comment: Ce pheid GeneXpert (618) Ordering Provid er: KATHERINE FIGUEROA Report Released Date/Time: Oct 29, 2021 12:22 PM Reporting Lab: [facility] [address] [facility] [address] Performing Lab: [facility] [address] [facility] [address] COVID-19 (CEPHEID) Not Detected Not Dete cted INFLUENZA A (PCR) Not Detected Not Detec susanne INFLUENZA B (PCR) Not Detected Not Detec susanne RSV (PCR) Not Detected Not Detected Nov 29, 2021 [facility] BASIC METABOLIC Specimen Typ e: PLASMA 06:38 AM PANEL+MG No comment enter ed. Ordering Provid er: KATHERINE FIGUEROA Report Released Date/Time: Oct 29, 2021 12:22 PM Reporting Lab: [facility] [address] [facility] [address] Performing Lab: [facility] [address] CREATININE 1.4 mg/dL H 0.7-1.2 UREA NITROGEN 23 mg/dL 8-26 GLUCOSE 201 mg/dL H 74-100 SODIUM 143 mmol/L 136-145 POTASSIUM 4.3 mmol/L 3.5-5.1 CHLORIDE 108 mmol/L H 98-107 CO2 28 mmol/L 22-29 CALCIUM 9.9 mg/dL 8.4-10.2 MAGNESIUM 1.9 mg/dL 1.6-2.6 ANION GAP 7 mmol/L 5-15 CREAT EGFR(CKD-EPI) 53 L >60 Nov 29, 2021 06:38 [facility] CBC Specimen Type: BLOOD AM No comment enter ed. Ordering Provid er: KATHERINE FIGUEROA Report Released Date/Time: Oct 29, 2021 12:22 PM Reporting Lab: [facility] [address] [facility] [address] Performing Lab: [facility] [address] WBC 7.40 10*3/uL 4.0-11.0 RBC 5.17 10*6/uL 4.6-6.2 HGB 17.6 g/dL 13.5-17.9 HCT 52.7 41-54 MCV 101.9 fL H 80-100 MCH 34.0 pg H 27-33 MCHC 33.4 g/dL 32.0-37.5 PLT 88 10*3/uL L 150-400 MPV 14.3 fL H 7.4-10.4 RDW 14.4 11.5-14.5 IPF 18.0 H 0-10 Nov 29, 2021 [facility] PROTHROMBIN Specimen Typ e: PLASMA 06:38 AM TIME/INR No comment enter ed. Ordering Provid er: KATHERINE FIGUEROA Report Released Date/Time: Oct 29, 2021 12:22 PM Reporting Lab: [facility] [address] Performing Lab: [facility] [address] [facility] [address] .INR 1.1 0.8-1.1 .PT 13.1 s H 9.4-12.5 Nov 29, 2021 [facility] ACT PART Specimen Typ e: PLASMA 06:38 AM THROMBO TIME No comment enter ed. Ordering Provid er: KATHERINE FIGUEROA Report Released Date/Time: Oct 29, 2021 12:22 PM Reporting Lab: [facility] [address] [facility] [address] Performing Lab: [facility] [address] [facility] [address] APTT 33.3 s 25.1-36.5 Social History: Smoking [...] 08:36 PM [facility] TOBACCO USE CURRENT NRT [facility] ACCEPT Tobacco Use History This section includes a history of the smoking, or tobacco- related health factors, that were collected on or before the date of the Encounter. The data comes from the [place] facility where the Encounter took place. 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 WITH BLIND NO [facility] Nov 15, 2020 10:00 AM VA-TOBACCO USE MED NO [place] [facility] Nov 15, 2020 10:00 AM VA-TOBACCO USER EVERY DAY [facility] Jun 21, 2019 02:29 PM VA-TOBACCO USE 30 YEARS OR MORE [facility] Jun 21, 2019 02:29 PM VA-TOBACCO USE ADVICE [place] [facility] Jun 21, 2019 02:29 PM VA-TOBACCO USE CHIEF LIBRARIAN WORK WITH BLIND NO [facility] Jun 21, 2019 02:29 PM [facility]ACCO [facility] Jun 21, 2019 02:29 PM VA-TOBACCO USE [place] 30 MIN OF WAKEUP [facility] Jun 21, 2019 02:29 PM VA-TOBACCO USER EVERY DAY [facility] Jun 09, 2018 03:48 PM VA-TOBACCO USE 30 YEARS OR MORE [facility] Jun 09, 2018 03:48 PM VA-TOBACCO USE ADVICE [facility] Jun 09, 2018 03:48 PM VA-TOBACCO USE CHIEF LIBRARIAN WORK WITH BLIND NO [facility] Jun 09, 2018 03:48 PM VA-TOBACCO USE MED NO [facility] Jun 09, 2018 03:48 PM VA-TOBACCO USE [place] 30 MIN OF WAKEUP [facility] Jun 09, 2018 03:48 PM VA-TOBACCO USER EVERY DAY [facility] Jun 20, 2017 07:53 AM CURRENT TOBACCO USER [facility] Jun 19, 2016 08:41 AM CURRENT TOBACCO USER [facility] Jun 21, 2015 08:15 AM CURRENT TOBACCO USER [facility] Mar 22, 2014 10:03 AM CURRENT TOBACCO USER [facility] Mar 25, 2013 11:01 AM CURRENT TOBACCO USER [facility] Feb 05, 2012 08:55 AM CURRENT TOBACCO USER [facility] January 01, 2011 09:26 AM CURRENT TOBACCO USER [facility] Mar 07, 2010 10:02 AM CURRENT TOBACCO USER [facility] Feb 21, 2009 08:17 AM CURRENT TOBACCO USER [facility] Nov 06, 2007 10:02 AM CURRENT TOBACCO USER [facility] January 02, 2007 10:33 AM CURRENT TOBACCO USER [facility] Advance Directives: All historical and [...] ADVANCE DIRECTIVE GANESH RODRIGUEZ [facility] Radiology Reports: +/- 30 days [...] 2 VIEWS PA AND LAT: MONET LUDWIG [facility] [place] [id number] -[birth year] M Exm Date: NOV 30, 2021@07:05 Req Phys: CHERRY MENDOZA Loc: 3LSOB/ 2@08:05 Img Loc: MAIN X-RAY Service: zzcard sect (Case [id number] COMPLETE) CHEST 2 VIEWS PA AND LAT (R AD Detailed) CPT:84821 Reason for Study: s/p upgrade ICD adding an A l ead Clinical History: Post ICD or Pacemaker: Verify Lead Placement. [place] IS NOT under investigation for COVID-19 or is COVID-19 negative s/p upgrade ICD adding an A lead Responsible pr ovider name and phone number to notify for critical findings if other than user placing the order and pager listed below: User placing orders pager: [phone] LAST CREATININE 1.4 H (11/29/21) Report Status: Verified Date Reported: NOV 30, 2021 Date Verified: NOV 30, 2021 Construction Quality Control Manager E-Sig:/ES/MONET LUDWIG MD, FACR, C CD [...] 06:25 PM CHEST 1 VIEW: MAGDALENE DAVIDSON [facility] [place] [id number] -[birth year] M Exm Date: NOV 29, 2021@18:25 Req Phys: CHERRY MENDOZA Pat Loc: [facility] [address] AY (Req'g Loc) Img Loc: MAIN X-RAY Service: Unknown (Case [id number] COMPLETE) CHEST 1 VIEW (RAD Detailed) CPT:15466 Reason for Study: s/p upgrade ICD adding an A l ead Clinical History: Immediate Post-Op Pacemaker/ICD placement [place] IS NOT under investigation for COVID-19 or is COVID-19 negative s/p upgrade his ICD to dual chamber (adding an A lead) Responsible provider name and phone number to n otify for critical findings if other than user placing the order a nd pager listed below: User placing orders pager: [phone] LAST CREATININE 1.4 H (11/29/21) Report Status: Verified Date Reported: NOV 29, 2021 Date Verified: NOV 29, 2021 Construction Quality Control Manager E-Sig:/ES/MAGDALENE DAVIDSON MD Report: DATE/TIME REGISTERED: [...] Primary Interpreting Staff: MAGDALENE DAVIDSON MD, RADIOLOGIST (Construction Quality Control Manager) /LUAN Encounter Notes: All associated encounter notes This section contains the clinical notes associated to the Encounter. Date/Time Encounter Note(s) Provider Source Dec 05, 2021 12:00 AM NONVA CONSULT: TESS CASANOVA [facility] LOCAL TITLE: COMMUNITY CARE CONSULT RESULT NOTE STANDARD TITLE: NONVA CONSULT DATE OF NOTE: DEC 05, 2021 ENTRY DATE: JANUARY 22 022@09:17:11 AUTHOR: TESS CASANOVA EXP COSIGNER: URGENCY: STATUS: COMPLETED [employer] - Scanned Document [facility] APPOINTMENT INFORMATION Documentation received from non-VA provider and scanned into [employer]. /billy/ TESS PROCESS Signed: 01/22/2022 09:17
--- OUTSIDE RECORDS SUMMARY | 2022-04-02 16:10 | XMS_ITS | Encounter Summary ---
:1945 Author Organization [facility] Address [address] [place] [address] Support Name Relationship Address Phone NIDIA MICHELE Unavailable [address] [place] [phone] NIDIA MICHELE Unavailable [address] [phone] [place] [phone] Insurance Providers: All historical and current Section [...] MEDICARE MEDICARE PART Jun 25, PART B [id number] Saumya QUINONES PATIENT (WNR) (M) B 2011 78A 0 AVID MEDICARE MEDICARE PART Sep 25, PART A [id number] Saumya QUINONES PATIENT (WNR) (M) A 2009 78A 0 AVID MEDICARE MEDICARE PART Sep 25, PART A [id number] Saumya MICHELE (WNR) (M) A 2009 [id number] [id number] AVID MEDICARE MEDICARE PART Sep 25, PART B [id number] Saumya MICHELE (WNR) (M) B 2009 78A [id number] AVID Selected Encounter This section includes the information on record at OR for the Encounter. Date/Time Encounter Type Encounter Description Reason Provider Source Dec 12, 2021 10:43 Outpatient Encounter CIED DEVICES AM IHE Encounter Template Text not used [...] 20 appointments. The data comes from all [facility]. Appointment Date/Time Appointment Type Appointment Facili ty Name Dec 21, 2021 09:30 AM AMBULATORY - NONE [facility] January 07, 2022 01:30 PM AMBULATORY - MEDICINE [facility] Feb 05, 2022 07:00 AM AMBULATORY - NONE [facility] Feb 07, 2022 09:30 AM AMBULATORY - NONE [facility] Feb 13, 2022 10:00 AM AMBULATORY PARK [...] the Encounter. The data comes from all [facility]. Test Date/Time Test Type Test Details Facility Name Nov 29, 2021 06:30 AM Laboratory - Blood Bank TYPE & SCREEN - LA B [facility] Order BLOOD SP Dec 15, 2021 12:00 AM Laboratory - Chemistry BASIC METABOLIC [facility] Order PANEL+MG PLASMA SP Lab [...] Reference Range Comment Nov 30, 2021 11:26 [facility] F[employer]ICK GLUCOSE Speci men Type: BLOOD AM Comment: [place] Nurse Notified Ordering Provid er: TEAM,CARDS TWO Report Released Date/Time: Nov 30, 2021 11:46 AM Reporting Lab: [facility] [address] [facility] [address] Performing Lab: [facility] [address] [facility] [address] FINGERSTICK GLUCOSE 284 H 70-100 Nov 30, 2021 09:47 AM [facility] ALBUMIN Specim en Type: PLASMA No comment enter ed. Ordering Provid er: ELIUD DINERO Report Released Date/Time: Nov 29, 2021 07:53 PM Reporting Lab: [facility] [address] [facility] [address] Performing Lab: [facility] [address] [facility] [address] ALBUMIN 3.4 L 3.5-5.2 Nov 30, 2021 09:47 [facility] BASIC METABOLIC Specimen Type: PLASMA AM PANEL+MG No comment enter ed. Ordering Provid er: ANGIE MALHOTRA Report Released Date/Time: Nov 29, 2021 08:12 PM Reporting Lab: [facility] [address] [facility] [address] Performing Lab: [facility] [address] [facility] [address] CREATININE 1.2 0.7-1.2 UREA NITROGEN 18 8-26 GLUCOSE 342 H 74-100 SODIUM 141 136-145 POTASSIUM 4.3 3.5-5.1 CHLORIDE 108 H 98-107 CO2 26 22-29 CALCIUM 8.6 8.4-10.2 MAGNESIUM 1.5 L 1.6-2.6 ANION GAP 7 5-15 CREAT EGFR(CKD-EPI) 63 >60 Nov 30, 2021 09:46 AM [facility] CBC Specim en Type: BLOOD No comment enter ed. Ordering Provid er: ANGIE MALHOTRA Report Released Date/Time: Nov 29, 2021 08:12 PM Reporting Lab: [facility] [address] [facility] [address] Performing Lab: [facility] [address] [facility] [address] WBC 10.61 4.0-11.0 RBC 4.33 L 4.6-6.2 HGB 14.6 13.5-17.9 HCT 45.2 41-54 MCV 104.4 H 80-100 MCH 33.7 H 27-33 MCHC 32.3 32.0-37.5 PLT 71 L 150-400 MPV 13.9 H 7.4-10.4 RDW 14.7 H 11.5-14.5 IPF 17.8 H 0-10 Nov 30, 2021 06:09 [facility] F[place]ICK GLUCOSE Speci men Type: BLOOD AM Comment: [place] Nurse Notified Ordering Provid er: GRANT,IRENE TWO Report Released Date/Time: Nov 30, 2021 06:32 AM Reporting Lab: [facility] [address] [facility] [address] Performing Lab: [facility] [address] [facility] [address] FING[place]ICK GLUCOSE 165 H 70-100 Nov 29, 2021 07:35 [facility] F[place]ICK GLUCOSE Speci men Type: BLOOD PM Comment: [place] Nurse Notified Ordering Provid er: IRENE BURNS TWO Report Released Date/Time: Nov 29, 2021 07:48 PM Reporting Lab: [facility] [address] [facility] [address] Performing Lab: [facility] [address] [facility] [address] FINGER[employer]ICK GLUCOSE 160 H 70-100 Nov 29, 2021 06:52 [facility] F[place] GLUCOSE Speci men Type: BLOOD PM Comment: [place] Nurse Notified Ordering Provid er: SAKSHI CROUCH Report Released Date/Time: Nov 29, 2021 07:04 PM Reporting Lab: [facility] [address] [facility] [address] Performing Lab: [facility] [address] [facility] [address] FING[employer]ICK GLUCOSE 161 H 70-100 Nov 29, 2021 04:18 [facility] F[place]ICK GLUCOSE Speci men Type: BLOOD PM No comment enter ed. Ordering Provid er: IRENE BURNS TWO Report Released Date/Time: Nov 29, 2021 08:08 PM Reporting Lab: [facility] [address] [facility] [address] Performing Lab: [facility] [address] [facility] [address] FINGER[employer]ICK GLUCOSE 179 H 70-100 Nov 29, 2021 03:26 [facility] POC ABG/ELECTROLYTES Spec imen Type: ARTERIAL BLOOD PM Comment: Sample Type = ARTERIAL Ordering Provid er: IRENE BURNS TWO Report Released Date/Time: Nov 29, 2021 07:53 PM Reporting Lab: [facility] [address] [facility] [address] Performing Lab: [facility] ONE [facility] [address] POC PH 7.321 L 7.35-7.45 POC PCO2 46.0 H 35.00-45.00 POC PO2 103 80.0-105.0 POC TCO2 25 23.0-27.0 POC HCO3 23.8 22.0-26.0 POC BE ECT -2 -2 POC SO2 97 95-98 POC SODIUM 145 138.0-146.0 POC POTASSIUM 3.5 3.50-5.00 POC HGB 16.0 12.00-17.00 POC HCT 47 38.0-51.0 POC IONIZED CALCIUM 4.2 L 4.50-5.30 Nov 29, 2021 03:24 [facility] F[employer]ICK GLUCOSE Speci men Type: BLOOD PM Comment: Save R esult Ordering Provid er: TEAM,CARDS TWO Report Released Date/Time: Nov 29, 2021 08:08 PM Reporting Lab: [facility] [address] Performing Lab: [facility] [address] F[place] GLUCOSE 188 H 70-100 Nov 29, 2021 02:06 [facility] POC ABG/ELECTROLYTES Spec imen Type: ARTERIAL BLOOD PM Comment: Sample Type = ARTERIAL Ordering Provid er: TEAM,CARDS TWO Report Released Date/Time: Nov 29, 2021 07:53 PM Reporting Lab: [facility] [address] Performing Lab: [facility] [address] POC PH 7.313 L 7.35-7.45 POC PCO2 48.4 H 35.00-45.00 POC PO2 93 80.0-105.0 POC TCO2 26 23.0-27.0 POC HCO3 24.5 22.0-26.0 POC BE ECT -2 -2 POC SO2 96 95-98 POC SODIUM 144 138.0-146.0 POC POTASSIUM 3.5 3.50-5.00 POC HGB 16.3 12.00-17.00 POC HCT 48 38.0-51.0 POC IONIZED CALCIUM 4.3 L 4.50-5.30 Nov 29, 2021 02:04 [facility] F[place]ICK GLUCOSE Speci men Type: BLOOD PM Comment: Save R esult Ordering Provid er: TEAM,CARDS TWO Report Released Date/Time: Nov 29, 2021 08:08 PM Reporting Lab: [facility] [address] Performing Lab: [facility] [address] F[employer]ICK GLUCOSE 236 H 70-100 Nov 29, 2021 01:52 PM [facility] POC ACT Specim en Type: BLOOD No comment enter ed. Ordering Provid er: IRENE BURNS Report Released Date/Time: Dec 03, 2021 01:31 PM Reporting Lab: [facility] [address] [facility] [address] Performing Lab: [facility] [address] [facility] [address] POC ACT 135 84-139 Nov 29, 2021 01:16 PM [facility] POC ACT Specim en Type: BLOOD No comment enter ed. Ordering Provid er: IRENE BURNS Report Released Date/Time: Dec 03, 2021 01:30 PM Reporting Lab: [facility] [address] [facility] [address] Performing Lab: [facility] [address] [facility] [address] POC ACT 355 84-139 Nov 29, 2021 12:49 PM [facility] POC ACT Specim en Type: BLOOD No comment enter ed. Ordering Provid er: IRENE BURNS Report Released Date/Time: Dec 03, 2021 01:30 PM Reporting Lab: [facility] [address] [facility] [address] Performing Lab: [facility] [address] [facility] [address] POC ACT 367 84-139 Nov 29, 2021 12:48 [facility] POC ABG/ELECTROLYTES Spec imen Type: ARTERIAL BLOOD PM Comment: Sample Type = ARTERIAL Ordering Provid er: IRENE BURNS Report Released Date/Time: Nov 29, 2021 07:53 PM Reporting Lab: [facility] [address] [facility] [address] Performing Lab: [facility] [address] [facility] [address] POC PH 7.289 L 7.35-7.45 POC PCO2 52.6 H 35.00-45.00 POC PO2 86 80.0-105.0 POC TCO2 27 23.0-27.0 POC HCO3 25.2 22.0-26.0 POC BE ECT -1 -2 POC SO2 95 95-98 POC SODIUM 145 138.0-146.0 POC POTASSIUM 3.2 L 3.50-5.00 POC HGB 16.7 12.00-17.00 POC HCT 49 38.0-51.0 POC IONIZED CALCIUM 4.7 4.50-5.30 Nov 29, 2021 12:45 [facility] FINGER[employer]ICK GLUCOSE Speci men Type: BLOOD PM Comment: Save R esult Ordering Provid er: IRENE BURNS Report Released Date/Time: Nov 29, 2021 08:08 PM Reporting Lab: [facility] [address] [facility] [address] Performing Lab: [facility] [address] [facility] [address] FINGER[employer]ICK GLUCOSE 186 H 70-100 Nov 29, 2021 12:26 PM [facility] POC ACT Specim en Type: BLOOD No comment enter ed. Ordering Provid er: IRENE BURNS Report Released Date/Time: Dec 03, 2021 01:30 PM Reporting Lab: [facility] [address] [facility] [address] Performing Lab: [facility] [address] [facility] [address] POC ACT 367 84-139 Nov 29, 2021 11:58 AM [facility] POC ACT Specim en Type: BLOOD No comment enter ed. Ordering Provid er: IRENE BURNS Report Released Date/Time: Dec 03, 2021 01:30 PM Reporting Lab: [facility] [address] [facility] [address] Performing Lab: [facility] [address] [facility] [address] POC ACT 338 84-139 Nov 29, 2021 11:53 [facility] F[place]ER[place]ICK GLUCOSE Speci men Type: BLOOD AM Comment: Save R esult Ordering Provid er: IRENE BURNS Report Released Date/Time: Nov 29, 2021 08:08 PM Reporting Lab: [facility] [address] [facility] [address] Performing Lab: [facility] [address] [facility] [address] F[place]ICK GLUCOSE 225 H 70-100 Nov 29, 2021 11:30 AM [facility] POC ACT Specim en Type: BLOOD No comment enter ed. Ordering Provid er: IRENE BURNS TWO Report Released Date/Time: Dec 03, 2021 01:30 PM Reporting Lab: [facility] [address] [facility] [address] Performing Lab: [facility] [address] [facility] [address] POC ACT 355 84-139 Nov 29, 2021 11:26 [facility] POC ABG/ELECTROLYTES Spec imen Type: ARTERIAL BLOOD AM Comment: Sample Type = ARTERIAL Ordering Provid er: IRENE BURNS TWO Report Released Date/Time: Nov 29, 2021 07:53 PM Reporting Lab: [facility] [address] [facility] [address] Performing Lab: [facility] [address] [facility] [address] POC PH 7.317 L 7.35-7.45 POC PCO2 52.3 H 35.00-45.00 POC PO2 81 80.0-105.0 POC TCO2 28 H 23.0-27.0 POC HCO3 26.8 H 22.0-26.0 POC BE ECT 1 -2 POC SO2 94 L 95-98 POC SODIUM 143 138.0-146.0 POC POTASSIUM 3.5 3.50-5.00 POC HGB 17.3 H 12.00-17.00 POC HCT 51 38.0-51.0 POC IONIZED CALCIUM 4.8 4.50-5.30 Nov 29, 2021 11:06 [facility] FINGERSTICK GLUCOSE Speci men Type: BLOOD AM No comment enter ed. Ordering Provid er: IRENE BURNS Report Released Date/Time: Nov 29, 2021 08:08 PM Reporting Lab: [facility] [address] [facility] [address] Performing Lab: [facility] [address] [facility] [address] FING[place]ICK GLUCOSE 221 H 70-100 Nov 29, 2021 11:02 AM [facility] POC ACT Specim en Type: BLOOD No comment enter ed. Ordering Provid er: IRENE BURNS Report Released Date/Time: Dec 03, 2021 01:30 PM Reporting Lab: [facility] [address] [facility] [address] Performing Lab: [facility] [address] [facility] [address] POC ACT 294 84-139 Nov 29, 2021 10:26 AM [facility] POC ACT Specim en Type: BLOOD No comment enter ed. Ordering Provid er: IRENE BURNS TWO Report Released Date/Time: Dec 03, 2021 01:30 PM Reporting Lab: [facility] [address] [facility] [address] Performing Lab: [facility] [address] [facility] [address] POC ACT 329 84-139 Nov 29, 2021 10:06 AM [facility] POC ACT Specim en Type: BLOOD No comment enter ed. Ordering Provid er: IRENE BURNS TWO Report Released Date/Time: Dec 03, 2021 01:30 PM Reporting Lab: [facility] [address] [facility] [address] Performing Lab: [facility] [address] [facility] [address] POC ACT 312 84-139 Nov 29, 2021 09:58 [facility] POC ABG/ELECTROLYTES Spec imen Type: ARTERIAL BLOOD AM Comment: Sample Type = ARTERIAL Ordering Provid er: IRENE BURNS TWO Report Released Date/Time: Nov 29, 2021 07:53 PM Reporting Lab: [facility] [address] [facility] [address] Performing Lab: [facility] [address] [facility] [address] POC PH 7.334 L 7.35-7.45 POC PCO2 48.7 H 35.00-45.00 POC PO2 96 80.0-105.0 POC TCO2 27 23.0-27.0 POC HCO3 25.9 22.0-26.0 POC BE ECT 0 -2 POC SO2 97 95-98 POC SODIUM 143 138.0-146.0 POC POTASSIUM 4.1 3.50-5.00 POC HGB 17.3 H 12.00-17.00 POC HCT 51 38.0-51.0 POC IONIZED CALCIUM 4.9 4.50-5.30 Nov 29, 2021 09:56 [facility] FINGER[employer]ICK GLUCOSE Speci men Type: BLOOD AM No comment enter ed. Ordering Provid er: IRENE BURNS TWO Report Released Date/Time: Nov 29, 2021 08:08 PM Reporting Lab: [facility] [address] [facility] [address] Performing Lab: [facility] [address] [facility] [address] F[place] GLUCOSE 194 H 70-100 Nov 29, 2021 09:45 AM [facility] POC ACT Specim en Type: BLOOD No comment enter ed. Ordering Provid er: IRENE BURNS TWO Report Released Date/Time: Dec 03, 2021 01:30 PM Reporting Lab: [facility] [address] [facility] [address] Performing Lab: [facility] [address] [facility] [address] POC ACT 269 84-139 Nov 29, 2021 08:59 AM [facility] POC ACT Specim en Type: BLOOD No comment enter ed. Ordering Provid er: IRENE BURNS TWO Report Released Date/Time: Dec 03, 2021 01:30 PM Reporting Lab: [facility] [address] [facility] [address] Performing Lab: [facility] [address] [facility] [address] POC ACT 135 84-139 Nov 29, 2021 [facility] COVID-19 AND FLU/RSV Specime n Type: NASOPHARYNGEAL 07:05 AM DIAG PANEL(CEPHEID) Comment: Ce pheid GeneXpert (618) Ordering Provid er: KATHERINE FIGUEROA Report Released Date/Time: Oct 29, 2021 12:22 PM Reporting Lab: [facility] [address] [facility] [address] Performing Lab: [facility] [address] [facility] [address] COVID-19 (CEPHEID) Not Detected Not Dete cted INFLUENZA A (PCR) Not Detected Not Detec susanne INFLUENZA B (PCR) Not Detected Not Detec susanne RSV (PCR) Not Detected Not Detected Nov 29, 2021 [facility] PROTHROMBIN Specimen Typ e: PLASMA 06:38 AM TIME/INR No comment enter ed. Ordering Provid er: KATHERINE FIGUEROA Report Released Date/Time: Oct 29, 2021 12:22 PM Reporting Lab: [facility] [address] [facility] [address] Performing Lab: [facility] [address] [facility] [address] .INR 1.1 0.8-1.1 .PT 13.1 H 9.4-12.5 Nov 29, 2021 [facility] ACT PART Specimen Typ e: PLASMA 06:38 AM THROMBO TIME No comment enter ed. Ordering Provid er: KATHERINE FIGUEROA Report Released Date/Time: Oct 29, 2021 12:22 PM Reporting Lab: [facility] [address] [facility] [address] Performing Lab: [facility] [address] [facility] [address] APTT 33.3 25.1-36.5 Nov 29, 2021 [facility] BASIC METABOLIC Specimen Typ e: PLASMA 06:38 AM PANEL+MG No comment enter ed. Ordering Provid er: KATHERINE FIGUEROA Report Released Date/Time: Oct 29, 2021 12:22 PM Reporting Lab: [facility] [facility] [facility] [address] Performing Lab: [facility] [address] CREATININE 1.4 H 0.7-1.2 UREA NITROGEN 23 8-26 GLUCOSE 201 H 74-100 SODIUM 143 136-145 POTASSIUM 4.3 3.5-5.1 CHLORIDE 108 H 98-107 CO2 28 22-29 CALCIUM 9.9 8.4-10.2 MAGNESIUM 1.9 1.6-2.6 ANION GAP 7 5-15 CREAT EGFR(CKD-EPI) 53 L >60 Nov 29, 2021 06:38 [facility] CBC Specimen Type: BLOOD AM No comment enter ed. Ordering Provid er: KATHERINE FIGUEROA Report Released Date/Time: Oct 29, 2021 12:22 PM Reporting Lab: [facility] [address] Performing Lab: [facility] [address] WBC 7.40 4.0-11.0 RBC 5.17 4.6-6.2 HGB [...] smoking and tobacco-related health factors from the [facility] where the Encounter took place.Current Smoking Status This section includes the most current smoking, or tobacco-related health factor, from the [place] facility where the Encounter took place. Date/Time Current Smoking Status Comment Facility Nov 29, 2021 08:36 PM [facility] TOBACCO USE CURRENT NRT [facility] ACCEPT Tobacco Use History This section includes a history of the smoking, or tobacco- related health factors, that were collected on or before the date of the Encounter. The data comes from the [place] facility where the Encounter took place. Date/Time Smoking Status/Tobacco Use Comment [facility] Mar 20, 2021 11:21 AM [facility] TOBACCO USE CURRENT NRT [facility] DECLINE Nov 15, 2020 10:00 AM VA-TOBACCO DOESNT USE WI 30 MIN [facility] WAKEUP Nov 15, 2020 10:00 AM VA-TOBACCO USE 30 YEARS OR MORE [facility] Nov 15, 2020 10:00 AM VA-TOBACCO USE ADVICE [place] [facility] Nov 15, 2020 10:00 AM VA-TOBACCO USE OFFICE CLEANER NO [facility] Nov 15, 2020 10:00 AM VA-TOBACCO USE MED NO [place] [facility] Nov 15, 2020 10:00 AM VA-TOBACCO USER EVERY DAY [facility] Jun 21, 2019 02:29 PM VA-TOBACCO USE 30 YEARS OR MORE [facility] Jun 21, 2019 02:29 PM VA-TOBACCO USE ADVICE [place] [facility] Jun 21, 2019 02:29 PM VA-TOBACCO USE OFFICE CLEANER NO LONG [facility] Jun 21, 2019 02:29 PM VA-TOBACCO USE MED NO [place] [facility] Jun 21, 2019 02:29 PM VA-TOBACCO USE [place] 30 MIN OF WAKEUP LONG [facility] Jun 21, 2019 02:29 PM VA-TOBACCO USER EVERY DAY LONG [facility] Jun 09, 2018 03:48 PM VA-TOBACCO USE 30 YEARS OR MORE LONG [facility] Jun 09, 2018 03:48 PM [facility]BACCO [facility] [place] Jun 09, 2018 03:48 PM VA-TOBACCO USE OFFICE CLEANER NO LONG [facility] Jun 09, 2018 03:48 PM VA-TOBACCO USE MED NO [place] [facility] Jun 09, 2018 03:48 PM VA-TOBACCO USE [place] 30 MIN OF WAKEUP LONG [facility] Jun 09, 2018 03:48 PM VA-TOBACCO USER EVERY DAY LONG [facility] Jun 20, 2017 07:53 AM CURRENT TOBACCO USER [facility] Jun 19, 2016 08:41 AM CURRENT TOBACCO USER [facility] Jun 21, 2015 08:15 AM CURRENT TOBACCO USER [facility] Mar 22, 2014 10:03 AM CURRENT TOBACCO USER [facility] Mar 25, 2013 11:01 AM CURRENT TOBACCO USER [facility] Feb 05, 2012 08:55 AM CURRENT TOBACCO USER [facility] January 01, 2011 09:26 AM CURRENT TOBACCO USER [facility] Mar 07, 2010 10:02 AM CURRENT [...] this document. The data comes from all [facility]. Date Advance Directives Provider Source Mar 06, 2005 ADVANCE DIRECTIVE GANESH RODRIGUEZ [facility] Radiology Reports: +/- 30 days of the [...] 2 VIEWS PA AND LAT: MONET LUDWIG [facility] PA[place] MIC[place]LE [id number] -[birth year] 9 M Exm Date: NOV 30, 2021@07:05 Req Phys: CHERRY MENDOZA Loc: 3LSOB/ 2@08:05 Img Loc: MAIN X-RAY Service: zzcard sect (Case [id number] COMPLETE) CHEST 2 VIEWS PA AND LAT (R AD Detailed) CPT:44354 Reason for Study: s/p upgrade ICD adding an A l ead Clinical History: Post ICD or Pacemaker: Verify Lead Placement. [place] IS NOT under investigation for COVID-19 or is COVID-19 negative s/p upgrade ICD adding an A lead Responsible pr ovider name and phone number to notify for critical findings if other than user placing the order and pager listed below: User placing orders pager: [phone] LAST CREATININE 1.4 H (11/29/21) Report Status: Verified Date Reported: NOV 30, 2021 Date Verified: NOV 30, 2021 Plant Operations Vice President E-Sig:/ES/MONET LUDWIG MD, FACR, C CD Report: [...] 06:25 PM CHEST 1 VIEW: MAGDALENE DAVIDSON [facility] PA[place] MICHELE [id number] -[birth year] 9 M Exm Date: NOV 29, 2021@18:25 Req Phys: CHERRY MENDOZA Pat Loc: [facility] [address] [facility] (Req'g Loc) Img Loc: MAIN X-RAY Service: Unknown (Case [id number] COMPLETE) CHEST 1 VIEW (RAD Detailed) CPT:72958 Reason for Study: s/p upgrade ICD adding an A l ead Clinical History: Immediate Post-Op Pacemaker/ICD placement [place] IS NOT under investigation for COVID-19 or is COVID-19 negative s/p upgrade his ICD to dual chamber (adding an A lead) Responsible provider name and phone number to n otify for critical findings if other than user placing the order a nd pager listed below: User placing orders pager: [phone] LAST CREATININE 1.4 H (11/29/21) Report Status: Verified Date Reported: NOV 29, 2021 Date Verified: NOV 29, 2021 Plant Operations Vice President E-Sig:/BILLY/MAGDALENE DAVIDSON MD Report: DATE/TIME REGISTERED: 11/29/2021 [...] Primary Interpreting Staff: MAGDALENE DAVIDSON MD, RADIOLOGIST (Plant Operations Vice President) /LUAN Encounter Notes: All associated encounter notes This section contains the clinical notes associated to the Encounter. Date/Time Encounter Note(s) Provider Source Dec 12, 2021 10:43 AM REPORT OF CONTACT[facility] LOCAL TITLE: APPOINTMENT SCHEDULING NOTE STANDARD TITLE: REPORT OF CONTACT DATE OF NOTE: DEC 12, 2021@10:43 ENTRY DATE: DEC 12, 2021@10:43:19 AUTHOR: FLORA PERALTA COSIGNER: URGENCY: STATUS: COMPLETED APPOINTMENT SCHEDULING NOTE Has ADDENDA Attempt to schedule return to clinic 1st Contact: Called at: [phone] r Left message Phone number left for to call back: 2nd Contact: Sent letter by regular [place] mail to address on [facility] [address] [place] [address] If calls back, schedule appointment for : 11/30/2021 10:17 New Order entered by José JULIAN (PHYSICIAN DOMINGA) Order Text: Return to [facility] CARDIAC DEVICE 3D on or around ( Mar 01, 2022 ) for a total of 1 appointment(s) Is the RTC marked as no later than? No D/C if no response on 12/26/21 /billy/ FLORA PERALTA ADVANCED MSA Signed: 12/12/2021 10:52 12/19/2021 ADDENDUM STATUS: COMPLETED Made 3rd attempt to reach to scheduled [facility] RTC for Device-February Recall was documented in error on first attempt. Left r eturned call # [phone]. If [place] calls back, please schedule: 11/30/2021 09:46 New Order entered by EVETTE SILVA (HEALTH SCIENCE ) Order Text: Return to [facility] CARDIAC DEVICE 3D on or around ( December 30, 2021 ) for a total of 1 appointment(s) Gen change and new RA lead 11/29/21 Med ICD /billy/ FLORA KILGORE MSA Signed: 12/19/2021 09:52 12/19/2021 ADDENDUM STATUS: COMPLETED Attempted to reach patient for continued schedul ing attempts. Unable to reach patient, voicemail left with instructions to ple ase call cards office prateek. Patient was reminded arm restrictions continue u ntil this apt is completed. /billy/ AKBAR JOYNER EP Clinical Specialist Signed: 12/19/2021 13:00 12/26/2021 ADDENDUM STATUS: COMPLETED Failed Scheduling Efforts, RTC deleted. /billy/ FLORA KILGORE MSA Signed: 12/26/2021 10:11 Receipt Acknowledged By: * AWAITING SIGNATURE * EVETTE MURILLO
--- OUTSIDE RECORDS SUMMARY | 2022-04-02 16:10 | XMS_ITS | Encounter Summary ---
:1945 Author Organization [facility] Address [address] [place], [place] [id number] Care Team Providers Name Role Phone SAKSHI [...] MEDICARE MEDICARE PART Jun 25, PART B [id number] Saumya QUINONES PATIENT (WNR) (M) B 2011 78A 0 AVID MEDICARE MEDICARE PART Sep 25, PART A [id number] Saumya QUINONES PATIENT (WNR) (M) A 2009 78A 0 AVID MEDICARE MEDICARE PART Sep 25, PART A [id number] Saumya MICHELE ATTHOMAS (WNR) (M) A 2009 78A [id number] AVID MEDICARE MEDICARE PART Sep 25, PART B [id number] Saumya MICHELE ATTHOMAS (WNR) (M) B 2009 78A [phone] AVID Selected Encounter This section includes the information on record at [place] for the Encounter. Date/Time Encounter Type Encounter Reason Provider Source Description Dec 04, 2021 [facility] ICD-10-CM Z51.81 GEMINI WEATHERS 11:28 AM ASSMT&MGMT 21+ Encounter for SUNG therapeutic drug level monitoring with Provider Comments: Encounter for therapeutic drug level monitoring IHE Encounter Template Text not used by [facility] Assessments - Encounter Diagnoses This section includes the primary and secondary diagnoses documented for the Encounter. 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 This section includes future appointments and future orders which are active, pending orscheduled.Future Appointments This section includes appointments that were scheduled to occur 6 months from the date of the Encounter, up to a maximum of 20 appointments. The data comes from all [place] treatment facilities. Appointment Date/Time Appointment Type Appointment Facili ty Name Dec 21, 2021 09:30 AM AMBULATORY - NONE [facility] January 07, 2022 01:30 PM AMBULATORY - MEDICINE [facility] Feb 05, 2022 07:00 AM AMBULATORY - [facility] Feb 07, 2022 09:30 AM AMBULATORY - NONE [facility] Feb 13, 2022 10:00 AM AMBULATORY - [facility] Mar 21, 2022 09:30 AM AMBULATORY [facility] Active, Pending, and Scheduled Orders This section includes a listing of several types of active, pending, and scheduled orders, including clinic medications orders, diagnostic test orders, procedure orders and consult orders; where the start date of the order is 45 days before the date of the Encounter or 45 days after the date of the Encounter. The data comes from all [place] treatment facilities. Test Date/Time Test Type Test Details Facility Name Nov 29, 2021 06:30 AM Laboratory - Blood Bank TYPE & SCREEN - LA B [facility] Order BLOOD SP Dec 15, 2021 12:00 AM Laboratory - Chemistry BASIC METABOLIC MIN [facility] Order PANEL+MG PLASMA SP Lab Results: +/- [...] Reference Range Comment Nov 30, 2021 11:26 [facility] FINGERSTICK GLUCOSE Speci men Type: BLOOD AM Comment: [place] Nurse Notified Ordering Provid er: GRANT,IRENE TWO Report Released Date/Time: Nov 30, 2021 11:46 AM Reporting Lab: [facility] [address] [facility] [address] Performing Lab: [facility] [address] [facility] [address] FINGERSTICK GLUCOSE 284 mg/dL H 70-100 Nov 30, 2021 09:47 AM [facility] ALBUMIN Specim en Type: PLASMA No comment enter ed. Ordering Provid er: ELIUD DINERO Report Released Date/Time: Nov 29, 2021 07:53 PM Reporting Lab: [facility] [address] [facility] [address] Performing Lab: [facility] [address] [facility] [address] ALBUMIN 3.4 g/dL L 3.5-5.2 Nov 30, 2021 09:47 [facility] BASIC METABOLIC Specimen Type: PLASMA AM PANEL+MG No comment enter ed. Ordering Provid er: ANGIE MALHOTRA Report Released Date/Time: Nov 29, 2021 08:12 PM Reporting Lab: [facility] [address] [facility] [address] Performing Lab: [facility] [address] [facility] [address] CREATININE 1.2 mg/dL 0.7-1.2 UREA NITROGEN 18 mg/dL 8-26 GLUCOSE 342 mg/dL H 74-100 SODIUM 141 mmol/L 136-145 POTASSIUM 4.3 mmol/L 3.5-5.1 CHLORIDE 108 mmol/L H 98-107 CO2 26 mmol/L 22-29 CALCIUM 8.6 mg/dL 8.4-10.2 MAGNESIUM 1.5 mg/dL L 1.6-2.6 ANION GAP 7 mmol/L 5-15 CREAT EGFR(CKD-EPI) 63 >60 Nov 30, 2021 09:46 AM [facility] CBC Specim en Type: BLOOD No comment enter ed. Ordering Provid er: ANGIE MALHOTRA Report Released Date/Time: Nov 29, 2021 08:12 PM Reporting Lab: [facility] [address] [facility] [address] Performing Lab: [facility] [address] [facility] [address] WBC 10.61 10*3/uL 4.0-11.0 RBC 4.33 10*6/uL L 4.6-6.2 HGB 14.6 g/dL 13.5-17.9 HCT 45.2 41-54 MCV 104.4 fL H 80-100 MCH 33.7 pg H 27-33 MCHC 32.3 g/dL 32.0-37.5 PLT 71 10*3/uL L 150-400 MPV 13.9 fL H 7.4-10.4 RDW 14.7 H 11.5-14.5 IPF 17.8 H 0-10 Nov 30, 2021 06:09 [facility] FINGERSTICK GLUCOSE Speci men Type: BLOOD AM Comment: [place] Nurse Notified Ordering Provid er: TEAMIRENE TWO Report Released Date/Time: Nov 30, 2021 06:32 AM Reporting Lab: [facility] [address] [facility] [address] Performing Lab: [facility] [address] [facility] [address] FINGERSTICK GLUCOSE 165 mg/dL H 70-100 Nov 29, 2021 07:35 [facility] FINGERSTICK GLUCOSE Speci men Type: BLOOD PM Comment: [place] Nurse Notified Ordering Provid er: IRENE BURNS TWO Report Released Date/Time: Nov 29, 2021 07:48 PM Reporting Lab: [facility] [address] [facility] [address] Performing Lab: [facility] [address] [facility] [address] FINGERSTICK GLUCOSE 160 mg/dL H 70-100 Nov 29, 2021 06:52 [facility] FINGERSTICK GLUCOSE Speci men Type: BLOOD PM Comment: [place] Nurse Notified Ordering Provid er: SAKSHI CROUCH Report Released Date/Time: Nov 29, 2021 07:04 PM Reporting Lab: [facility] [address] [facility] [address] Performing Lab: [facility] [address] [facility] [address] FINGERSTICK GLUCOSE 161 mg/dL H 70-100 Nov 29, 2021 04:18 [facility] FINGERSTICK GLUCOSE Speci men Type: BLOOD PM No comment enter ed. Ordering Provid er: IRENE BURNS TWO Report Released Date/Time: Nov 29, 2021 08:08 PM Reporting Lab: [facility] [address] [facility] [address] Performing Lab: [facility] [address] FINGERSTICK GLUCOSE 179 mg/dL H 70-100 Nov 29, 2021 03:26 [facility] POC ABG/ELECTROLYTES Spec imen Type: ARTERIAL BLOOD PM Comment: Sample Type = ARTERIAL Ordering Provid er: IRENE BURNS TWO Report Released Date/Time: Nov 29, 2021 07:53 PM Reporting Lab: [facility] [address] [facility] [address] Performing Lab: [facility] [address] POC PH 7.321 L 7.35-7.45 POC PCO2 [...] mg/dL L 4.50-5.30 Nov 29, 2021 03:24 [facility] FINGERSTICK GLUCOSE Speci men Type: BLOOD PM Comment: Save R esult Ordering Provid er: IRENE BURNS TWO Report Released Date/Time: Nov 29, 2021 08:08 PM Reporting Lab: [facility] [address] [facility] [address] Performing Lab: [facility] [address] FINGERSTICK GLUCOSE 188 mg/dL H 70-100 Nov 29, 2021 02:06 [facility] POC ABG/ELECTROLYTES Spec imen Type: ARTERIAL BLOOD PM Comment: Sample Type = ARTERIAL Ordering Provid er: IRENE BURNS TWO Report Released Date/Time: Nov 29, 2021 07:53 PM Reporting Lab: [facility] [address] [facility] [address] Performing Lab: [facility] [address] [facility] [address] POC PH 7.313 L 7.35-7.45 POC PCO2 [...] mg/dL L 4.50-5.30 Nov 29, 2021 02:04 [facility] FINGERSTICK GLUCOSE Speci men Type: BLOOD PM Comment: Save R esult Ordering Provid er: IRENE BURNS TWO Report Released Date/Time: Nov 29, 2021 08:08 PM Reporting Lab: [facility] [address] [facility] [address] Performing Lab: [facility] [address] [facility] [address] FINGERSTICK GLUCOSE 236 mg/dL H 70-100 Nov 29, 2021 01:52 PM [facility] POC ACT Specim en Type: BLOOD No comment enter ed. Ordering Provid er: IRENE BURNS TWO Report Released Date/Time: Dec 03, 2021 01:31 PM Reporting Lab: [facility] [address] [facility] [address] Performing Lab: [facility] [address] [facility] [address] POC ACT 135 s 84-139 Nov 29, 2021 01:16 PM [facility] POC ACT Specim en Type: BLOOD No comment enter ed. Ordering Provid er: IRENE BURNS TWO Report Released Date/Time: Dec 03, 2021 01:30 PM Reporting Lab: [facility] [address] [facility] [address] Performing Lab: [facility] [address] [facility] [address] POC ACT 355 s 84-139 Nov 29, 2021 12:49 PM [facility] POC ACT Specim en Type: BLOOD No comment enter ed. Ordering Provid er: IRENE BURNS TWO Report Released Date/Time: Dec 03, 2021 01:30 PM Reporting Lab: [facility] [address] [facility] [address] Performing Lab: [facility] [address] [facility] [address] POC ACT 367 s 84-139 Nov 29, 2021 12:48 [facility] POC ABG/ELECTROLYTES Spec imen Type: ARTERIAL BLOOD PM Comment: Sample Type = ARTERIAL Ordering Provid er: IRENE BURNS TWO Report Released Date/Time: Nov 29, 2021 07:53 PM Reporting Lab: [facility] [address] [facility] [address] Performing Lab: [facility] [address] POC PH 7.289 L 7.35-7.45 POC PCO2 [...] 4.7 mg/dL 4.50-5.30 Nov 29, 2021 12:45 [facility] FINGERSTICK GLUCOSE Speci men Type: BLOOD PM Comment: Save R esult Ordering Provid er: IRENE BURNS TWO Report Released Date/Time: Nov 29, 2021 08:08 PM Reporting Lab: [facility] [address] [facility] [address] Performing Lab: [facility] [address] [facility] [address] FINGERSTICK GLUCOSE 186 mg/dL H 70-100 Nov 29, 2021 12:26 PM [facility] POC ACT Specim en Type: BLOOD No comment enter ed. Ordering Provid er: IRENE BURNS TWO Report Released Date/Time: Dec 03, 2021 01:30 PM Reporting Lab: [facility] [address] [facility] [address] Performing Lab: [facility] [address] [facility] [address] POC ACT 367 s 84-139 Nov 29, 2021 11:58 AM [facility] POC ACT Specim en Type: BLOOD No comment enter ed. Ordering Provid er: IRENE BURNS Report Released Date/Time: Dec 03, 2021 01:30 PM Reporting Lab: [facility] [address] [facility] [address] Performing Lab: [facility] [address] [facility] [address] POC ACT 338 s 84-139 Nov 29, 2021 11:53 [facility] FINGERSTICK GLUCOSE Speci men Type: BLOOD AM Comment: Save R esult Ordering Provid er: IRENE BURNS Report Released Date/Time: Nov 29, 2021 08:08 PM Reporting Lab: [facility] [address] [facility] [address] Performing Lab: [facility] [address] [facility] [address] FINGERSTICK GLUCOSE 225 mg/dL H 70-100 Nov 29, 2021 11:30 AM [facility] POC ACT Specim en Type: BLOOD No comment enter ed. Ordering Provid er: IRENE BURNS Report Released Date/Time: Dec 03, 2021 01:30 PM Reporting Lab: [facility] [address] [facility] [address] Performing Lab: [facility] [address] [facility] [address] POC ACT 355 s 84-139 Nov 29, 2021 11:26 [facility] POC ABG/ELECTROLYTES Spec imen Type: ARTERIAL BLOOD AM Comment: Sample Type = ARTERIAL Ordering Provid er: IRENE BURNS Report Released Date/Time: Nov 29, 2021 07:53 PM Reporting Lab: [facility] [address] [facility] [address] Performing Lab: [facility] [address] [facility] [address] POC PH 7.317 L 7.35-7.45 POC PCO2 [...] 4.8 mg/dL 4.50-5.30 Nov 29, 2021 11:06 [facility] FINGERSTICK GLUCOSE Speci men Type: BLOOD AM No comment enter ed. Ordering Provid er: IRENE BURNS Report Released Date/Time: Nov 29, 2021 08:08 PM Reporting Lab: [facility] [address] [facility] [address] Performing Lab: [facility] [address] [facility] [address] FINGERSTICK GLUCOSE 221 mg/dL H 70-100 Nov 29, 2021 11:02 AM [facility] POC ACT Specim en Type: BLOOD No comment enter ed. Ordering Provid er: IRENE BURNS Report Released Date/Time: Dec 03, 2021 01:30 PM Reporting Lab: [facility] [address] [facility] [address] Performing Lab: [facility] [address] [facility] [address] POC ACT 294 s 84-139 Nov 29, 2021 10:26 AM [facility] POC ACT Specim en Type: BLOOD No comment enter ed. Ordering Provid er: IRENE BURNS Report Released Date/Time: Dec 03, 2021 01:30 PM Reporting Lab: [facility] [address] [facility] [address] Performing Lab: [facility] [address] [facility] [address] POC ACT 329 s 84-139 Nov 29, 2021 10:06 AM [facility] POC ACT Specim en Type: BLOOD No comment enter ed. Ordering Provid er: IRENE BURNS Report Released Date/Time: Dec 03, 2021 01:30 PM Reporting Lab: [facility] [address] [facility] [address] Performing Lab: [facility] [address] [facility] [address] POC ACT 312 s 84-139 Nov 29, 2021 09:58 [facility] POC ABG/ELECTROLYTES Spec imen Type: ARTERIAL BLOOD AM Comment: Sample Type = ARTERIAL Ordering Provid er: IRENE BURNS Report Released Date/Time: Nov 29, 2021 07:53 PM Reporting Lab: [facility] [address] [facility] [address] Performing Lab: [facility] [address] [facility] [address] POC PH 7.334 L 7.35-7.45 POC PCO2 [...] 4.9 mg/dL 4.50-5.30 Nov 29, 2021 09:56 [facility] FINGERSTICK GLUCOSE Speci men Type: BLOOD AM No comment enter ed. Ordering Provid er: IRENE BURNS TWO Report Released Date/Time: Nov 29, 2021 08:08 PM Reporting Lab: [facility] [address] Performing Lab: [facility] [address] FINGERSTICK GLUCOSE 194 mg/dL H 70-100 Nov 29, 2021 09:45 AM [facility] POC ACT Specim en Type: BLOOD No comment enter ed. Ordering Provid er: IRENE BURNS Report Released Date/Time: Dec 03, 2021 01:30 PM Reporting Lab: [facility] [address] Performing Lab: [facility] [address] [facility] [address] POC ACT 269 s 84-139 Nov 29, 2021 08:59 AM [facility] POC ACT Specim en Type: BLOOD No comment enter ed. Ordering Provid er: IRENE BURNS TWO Report Released Date/Time: Dec 03, 2021 01:30 PM Reporting Lab: [facility] [address] [facility] [facility] [address] Performing Lab: [facility] [address] POC ACT 135 s 84-139 Nov 29, 2021 [facility] COVID-19 AND FLU/RSV Specime n Type: NASOPHARYNGEAL 07:05 AM DIAG PANEL(CEPHEID) Comment: Ce pheid GeneXpert (618) Ordering Provid er: KATHERINE FIGUEROA Report Released Date/Time: Oct 29, 2021 12:22 PM Reporting Lab: [facility] [address] Performing Lab: [facility] [address] COVID-19 (CEPHEID) Not Detected Not Dete cted INFLUENZA A (PCR) Not Detected Not Detec susanne INFLUENZA B (PCR) Not Detected Not Detec susanne RSV (PCR) Not Detected Not Detected Nov 29, 2021 [facility] BASIC METABOLIC Specimen Typ e: PLASMA 06:38 AM PANEL+MG No comment enter ed. Ordering Provid er: KATHERINE FIGUEROA Report Released Date/Time: Oct 29, 2021 12:22 PM Reporting Lab: [facility] [address] Performing Lab: [facility] [address] CREATININE 1.4 mg/dL H 0.7-1.2 UREA NITROGEN 23 mg/dL 8-26 GLUCOSE 201 mg/dL H 74-100 SODIUM 143 mmol/L 136-145 POTASSIUM 4.3 mmol/L 3.5-5.1 CHLORIDE 108 mmol/L H 98-107 CO2 28 mmol/L 22-29 CALCIUM 9.9 mg/dL 8.4-10.2 MAGNESIUM 1.9 mg/dL 1.6-2.6 ANION GAP 7 mmol/L 5-15 CREAT EGFR(CKD-EPI) 53 L >60 Nov 29, 2021 06:38 [facility] CBC Specimen Type: BLOOD AM No comment enter ed. Ordering Provid er: KATHERINE FIGUEROA Report Released Date/Time: Oct 29, 2021 12:22 PM Reporting Lab: [facility] [address] Performing Lab: [facility] [address] WBC 7.40 10*3/uL 4.0-11.0 RBC 5.17 10*6/uL 4.6-6.2 HGB 17.6 g/dL 13.5-17.9 HCT 52.7 41-54 MCV 101.9 fL H 80-100 MCH 34.0 pg H 27-33 MCHC 33.4 g/dL 32.0-37.5 PLT 88 10*3/uL L 150-400 MPV 14.3 fL H 7.4-10.4 RDW 14.4 11.5-14.5 IPF 18.0 H 0-10 Nov 29, 2021 [facility] PROTHROMBIN Specimen Typ e: PLASMA 06:38 AM TIME/INR No comment enter ed. Ordering Provid er: KATHERINE FIGUEROA Report Released Date/Time: Oct 29, 2021 12:22 PM Reporting Lab: [facility] [address] Performing Lab: [facility] [address] .INR 1.1 0.8-1.1 .PT 13.1 s H 9.4-12.5 Nov 29, 2021 [facility] ACT PART Specimen Typ e: PLASMA 06:38 AM THROMBO TIME No comment enter ed. Ordering Provid er: KATHERINE FIGUEROA Report Released Date/Time: Oct 29, 2021 12:22 PM Reporting Lab: [facility] [address] [facility] [address] Performing Lab: [facility] [address] APTT 33.3 s 25.1-36.5 Social History: Smoking [...] Comment Facility Nov 29, 2021 08:36 PM [facility] TOBACCO USE CURRENT NRT [facility] ACCEPT Tobacco Use History This section includes a history of the smoking, or tobacco- related health factors, that were collected on or before the date of the Encounter. The data comes from the [place] facility where the Encounter took place. 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 [facility] Nov 15, 2020 10:00 AM VA-TOBACCO USE MED NO [place] [facility] Nov 15, 2020 10:00 AM VA-TOBACCO USER EVERY DAY [facility] Jun 21, 2019 02:29 PM VA-TOBACCO USE 30 YEARS OR MORE [facility] Jun 21, 2019 02:29 PM VA-TOBACCO USE ADVICE [place] [facility] Jun 21, 2019 02:29 PM 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 [facility] Jun 21, 2019 02:29 PM VA-TOBACCO USE MED NO [place] [facility] Jun 21, 2019 02:29 PM VA-TOBACCO USE [place] 30 MIN OF WAKEUP [facility] Jun 21, 2019 02:29 PM VA-TOBACCO USER EVERY DAY [facility] Jun 09, 2018 03:48 PM VA-TOBACCO USE 30 YEARS OR MORE [facility] Jun 09, 2018 03:48 PM [facility] [place] Jun 09, 2018 03:48 PM 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 [facility] Jun 09, 2018 03:48 PM VA-TOBACCO USE MED NO [place] [facility] Jun 09, 2018 03:48 PM VA-TOBACCO USE [place] 30 MIN OF WAKEUP [facility] Jun 09, 2018 03:48 PM VA-TOBACCO USER EVERY DAY [facility] Jun 20, 2017 07:53 AM CURRENT TOBACCO USER [facility] Jun 19, 2016 08:41 AM CURRENT TOBACCO USER [facility] Jun 21, 2015 08:15 AM CURRENT TOBACCO USER [facility] Mar 22, 2014 10:03 AM CURRENT TOBACCO USER [facility] Mar 25, 2013 11:01 AM CURRENT TOBACCO USER [facility] Feb 05, 2012 08:55 AM CURRENT TOBACCO USER [facility] January 01, 2011 09:26 AM CURRENT TOBACCO USER [facility] Mar 07, 2010 10:02 AM CURRENT TOBACCO USER [facility] Feb 21, 2009 08:17 AM CURRENT TOBACCO USER [facility] Nov 06, 2007 10:02 AM CURRENT TOBACCO USER [facility] January 02, 2007 10:33 AM CURRENT TOBACCO USER [facility] Advance Directives: All historical and current Section Date Range: From patient's date of to the date document was created. This section includes ALL of a patient's completed or amended [place] Advance and Rescinded Directives. The entries below indicate that a directive exists for the patient, but an actual copy is not included with this document. The data comes from all [facility]. Date Advance Directives Provider Source Mar 06, 2005 ADVANCE DIRECTIVE GANESH RODRIGUEZ [facility] Radiology Reports: +/- 30 days [...] the Encounter. The data comes from all [place] treatment facilities. Date/Time Radiology Report Provider Source Nov 30, 2021 07:05 AM CHEST 2 VIEWS PA AND LAT: MONET LUDWIG [facility] PAUL MICHELE [id number] -[birth year] M Exm Date: NOV 30, 2021@07:05 Req Phys: CHERRY MENDOZA Loc: 3LSOB/ 2@08:05 Img Loc: MAIN X-RAY Service: zzcard sect (Case [id number] COMPLETE) CHEST 2 VIEWS PA AND LAT (R AD Detailed) CPT:87811 Reason for Study: s/p upgrade ICD adding an A l ead Clinical History: Post ICD or Pacemaker: Verify Lead Placement. [place] IS NOT under investigation for COVID-19 or is COVID-19 negative s/p upgrade ICD adding an A lead Responsible pr ovider name and phone number to notify for critical findings if other than user placing the order and pager listed below: User placing orders pager: [phone] LAST CREATININE 1.4 H (11/29/21) Report Status: Verified Date Reported: NOV 30, 2021 Date Verified: NOV 30, 2021 Award Clerk E-Sig:/BILLY/MONET LUDWIG MD, FACR, C CD Report: EXAMINATION: [...] MAGDALENE DAVIDSON [facility] PAUL MICHELE [id number] -[birth year] 9 M Exm Date: NOV 29, 2021@18:25 Req Phys: CHERRY MENDOZA Pat Loc: [facility] [address] [facility] (Req'g Loc) Img Loc: MAIN X-RAY Service: Unknown (Case [id number] COMPLETE) CHEST 1 VIEW (RAD Detailed) CPT:08182 Reason for Study: s/p upgrade ICD adding an A l ead Clinical History: Immediate Post-Op Pacemaker/ICD placement [place] IS NOT under investigation for COVID-19 or is COVID-19 negative s/p upgrade his ICD to dual chamber (adding an A lead) Responsible provider name and phone number to n otify for critical findings if other than user placing the order a nd pager listed below: User placing orders pager: [phone] LAST CREATININE 1.4 H (11/29/21) Report Status: Verified Date Reported: NOV 29, 2021 Date Verified: NOV 29, 2021 [employer] E-Sig:/[email or web address] DAVIDSON MD Report: DATE/TIME REGISTERED: 11/29/2021 [...] Primary Interpreting Staff: MAGDALENE DAVIDSON MD, RADIOLOGIST (Award Clerk) /LUAN Encounter Notes: All associated encounter notes This section contains the clinical notes associated to the Encounter. Date/Time Encounter Note(s) Provider Source Dec 04, 2021 11:28 AM MEDICATION MGT CONSULT: SHAHZAD NYE [facility] LOCAL TITLE: ANTICOAGULATION CLINIC CONSULT STANDARD TITLE: MEDICATION MGT CONSULT DATE OF NOTE: DEC 04, 2021@11:28 ENTRY DATE: DEC 04, 2021@11:28:21 AUTHOR: SHAHZAD NYE EXP COSIGNER: URGENCY: STATUS: COMPLETED DOAC DISCHARGE - Anticoagulant regimen: Apixaban 5mg every 12 h ours - Indication: Atrial fibrillation - Secondary Indication/Relevant PMH: HFrEF(EF:20 -25%) - h/o CABG 2010, thrombocytopenia - Prior major bleeds: none per pt - Prior anticoagulants: uncertain per pt - Start date: 12/2020 - Anticipated duration of therapy: indefinite - CHADS2-VASC = 5 (age, htn, DM, CAD, HF) - HAS-BLED = 2 (age, aspirin) SUBJECTIVE/OBJECTIVE: Obtained from chart review. Admission diagnosis: [facility] admit 11/29 - 11/30/21 fo r s/p ablation for his atrial fibrillation and device upgrade. Relevant changes in health status: - Apixaban held pre-op and restarted on 11/30/21 IP. - EP follow up in 4-6 weeks Medication changes (see [facility] MED INSTRUCTION/RECONCILIATION note): New medication(s): - cephalexin - spironolactone dashboard flags: none Labs ==== Age: 76 Height: 73.5 in [186.7 cm] (09/21/2021 09:49) Weight: 232 lb [105.23 kg] (11/29/2021 20:38) Collection DT Specimen Test Name Result Units Re f Range 11/30/2021 05:30 PLASMA CREATININE 1.2 mg/dL 0.7 - 1.2 11/29/2021 06:38 PLASMA CREATININE 1.4 H mg/dL 0 .7 - 1.2 09/21/2021 08:58 PLASMA CREATININE 1.3 H mg/dL 0 .7 - 1.2 06/18/2021 11:52 PLASMA CREATININE 1.3 H mg/dL 0 .7 - 1.2 06/18/2021 11:50 PLASMA CREATININE 1.3 H mg/dL 0 .7 - 1.2 03/23/2021 05:30 PLASMA!! CREATININE 1.3 H mg/dL 0.7 - 1.2 03/21/2021 05:30 PLASMA CREATININE 1.5 H mg/dL 0 .7 - 1.2 03/20/2021 08:16 PLASMA CREATININE 1.6 H mg/dL 0 .7 - 1.2 03/05/2021 09:42 PLASMA CREATININE 1.4 H mg/dL 0 .7 - 1.2 02/19/2021 12:03 PLASMA CREATININE 1.4 H mg/dL 0 .7 - 1.2 !! Indicates COMMENTS AVAILABLE...Refer to Inter im Lab Report. Cockcroft & Gault (Actual body weight) = 80.4 mL /min Collection DT Spec WBC HGB HCT PLT MCV 11/30/2021 05:30 BLOOD 10.61 14.6 45.2 71 L 104. 4 H 11/29/2021 06:38 BLOOD 7.40 17.6 52.7 88 L 101.9 H 06/18/2021 11:52 BLOOD 7.85 16.8 51.9 98 L 104.6 H Collection DT Specimen Test Name Result Units Re f Range 12/03/2011 14:20 PLASMA!! BILIRUBIN, TOTAL 0.5 m g/dL 0.2 - 1.0 12/03/2011 14:20 PLASMA!! ALKALINE PHOSPHAT 74 U /L 50 - 136 02/19/2021 12:03 PLASMA AST/SGOT 28 U/L Ref: <=3 4 02/19/2021 12:03 PLASMA ALT/SGPT 32 U/L Ref: <=5 5 !! Indicates COMMENTS AVAILABLE...Refer to Inter im Lab Report. ASSESSMENT/PLAN: - Changes in health/labs/medications do not affe ct anticoagulation. Labs are stable. Hgb dropped d/t acute blood loss post-s urgery, but still WNL. Plts low but still >50, known hx of chronic thromboc ytopenia. - Continue anticoagulation at current dose. - Monitor dashboard for labs, drug interactions, and compliance. - Dashboard flags reviewed/cleared, if applicabl e. - Lab monitoring frequency defined by dashboard or as clinically indicated. Time Spent: 25min /billy/ SHAHZAD NYE PHARMACIST Signed: 12/04/2021 12:07
--- OUTSIDE RECORDS SUMMARY | 2022-04-02 16:10 | XMS_ITS | Encounter Summary ---
:1945 Author Organization [facility] Address [address] [place] [address] Care Team Providers Name Role Phone WILLA [...] MEDICARE MEDICARE PART Jun 25, PART B [id number] Saumya QUINONES PATIENT (WNR) (M) B 2011 78A 0 AVID MEDICARE MEDICARE PART Sep 25, PART A [id number] Saumya QUINONES PATIENT (WNR) (M) A 2009 78A 0 AVID MEDICARE MEDICARE PART Sep 25, PART A [id number] Saumya MICHELE (WNR) (M) A 2009 [id number] [id number] AVID MEDICARE MEDICARE PART Sep 25, PART B [id number] Saumya MICHELE (WNR) (M) B 2009 [id number] [id number] AVID Selected Encounter This section includes the information on record at [place] for the Encounter. 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 This section includes future appointments and future orders which are active, pending orscheduled.Future Appointments This section includes appointments that were scheduled to occur 6 months from the date of the Encounter, up to a maximum of 20 appointments. The data comes from all [place] treatment [facility]. Appointment Date/Time Appointment Type Appointment Facili ty Name Dec 21, 2021 09:30 AM AMBULATORY - NONE [facility] January 07, 2022 01:30 PM AMBULATORY - MEDICINE [facility] Feb 05, 2022 07:00 AM AMBULATORY - [facility] Feb 07, 2022 09:30 AM AMBULATORY - NONE [facility] Feb 13, 2022 10:00 AM AMBULATORY - NONE [facility] Mar 21, 2022 09:30 AM AMBULATORY [facility] Active, Pending, and Scheduled Orders This section includes a listing of several types of active, pending, and scheduled orders, including clinic medications orders, diagnostic test orders, procedure orders and consult orders; where the start date of the order is 45 days before the date of the Encounter or 45 days after the date of the Encounter. The data comes from all [place] treatment [facility]. Test Date/Time Test Type Test Details Facility Name Nov 29, 2021 06:30 AM Laboratory - Blood Bank TYPE & SCREEN - LA B [facility] Order BLOOD SP Dec 15, 2021 12:00 AM Laboratory - Chemistry BASIC METABOLIC MIN [facility] Order PANEL+MG PLASMA SP Lab Results: +/- [...] Reference Range Comment Nov 30, 2021 11:26 [facility] FINGERSTICK GLUCOSE Speci men Type: BLOOD AM Comment: [place] Nurse Notified Ordering Provid er: GRANT,IRENE TWO Report Release d Date/Time: Nov 30, 2021 11:46 AM Reporting Lab: [facility] [address] [facility] [address] Performing Lab: [facility] [address] [facility] [address] FINGERSTICK GLUCOSE 284 mg/dL H 70-100 Nov 30, 2021 09:47 AM [facility] ALBUMIN Specim en Type: PLASMA No comment enter ed. Ordering Provid er: ELIUD DINERO Report Released Date/Time: Nov 29, 2021 07:53 PM Reporting Lab: [facility] [address] [facility] [address] Performing Lab: [facility] [address] [facility] [address] ALBUMIN 3.4 g/dL L 3.5-5.2 Nov 30, 2021 09:47 [facility] BASIC METABOLIC Specimen Type: PLASMA AM PANEL+MG No comment enter ed. Ordering Provid er: ANGIE MALHOTRA Report Released Date/Time: Nov 29, 2021 08:12 PM Reporting Lab: [facility] [address] [facility] [address] Performing Lab: [facility] [address] [facility] [address] CREATININE 1.2 mg/dL 0.7-1.2 UREA NITROGEN 18 mg/dL 8-26 GLUCOSE 342 mg/dL H 74-100 SODIUM 141 mmol/L 136-145 POTASSIUM 4.3 mmol/L 3.5-5.1 CHLORIDE 108 mmol/L H 98-107 CO2 26 mmol/L 22-29 CALCIUM 8.6 mg/dL 8.4-10.2 MAGNESIUM 1.5 mg/dL L 1.6-2.6 ANION GAP 7 mmol/L 5-15 CREAT EGFR(CKD-EPI) 63 >60 Nov 30, 2021 09:46 AM [facility] CBC Specim en Type: BLOOD No comment enter ed. Ordering Provid er: ANGIE MALHOTRA Report Released Date/Time: Nov 29, 2021 08:12 PM Reporting Lab: [facility] [address] [facility] [address] Performing Lab: [facility] [address] [facility] [address] WBC 10.61 10*3/uL 4.0-11.0 RBC 4.33 10*6/uL L 4.6-6.2 HGB 14.6 g/dL 13.5-17.9 HCT 45.2 41-54 MCV 104.4 fL H 80-100 MCH 33.7 pg H 27-33 MCHC 32.3 g/dL 32.0-37.5 PLT 71 10*3/uL L 150-400 MPV 13.9 fL H 7.4-10.4 RDW 14.7 H 11.5-14.5 IPF 17.8 H 0-10 Nov 30, 2021 06:09 [facility] FINGERSTICK GLUCOSE Speci men Type: BLOOD AM Comment: [place] Nurse Notified Ordering Provid er: TEAM,CARDS TWO Report Released Date/Time: Nov 30, 2021 06:32 AM Reporting [facility] [address] Performing [facility]: [facility] [address] FINGERSTICK GLUCOSE 165 mg/dL H 70-100 Nov 29, 2021 07:35 [facility] FINGERSTICK GLUCOSE Speci men Type: BLOOD PM Comment: [place] Nurse Notified Ordering Provid er: TEAM,CARDS TWO Report Released Date/Time: Nov 29, 2021 07:48 PM Reporting Lab: [facility] [address] Performing Lab: [facility] [address] FINGERSTICK GLUCOSE 160 mg/dL H 70-100 Nov 29, 2021 06:52 [facility] FINGERSTICK GLUCOSE Speci men Type: BLOOD PM Comment: [place] Nurse Notified Ordering Provid er: SAKSHI CROUCH Report Released Date/Time: Nov 29, 2021 07:04 PM Reporting Lab: [facility] [address] [facility] [address] Performing Lab: [facility] [address] FINGERSTICK GLUCOSE 161 mg/dL H 70-100 Nov 29, 2021 04:18 [facility] FINGERSTICK GLUCOSE Speci men Type: BLOOD PM No comment enter ed. Ordering Provid er: IRENE BURNS TWO Report Released Date/Time: Nov 29, 2021 08:08 PM Reporting Lab: [facility] [address] [facility] [address] Performing Lab: [facility] [address] [facility] [address] FINGERSTICK GLUCOSE 179 mg/dL H 70-100 Nov 29, 2021 03:26 [facility] POC ABG/ELECTROLYTES Spec imen Type: ARTERIAL BLOOD PM Comment: Sample Type = ARTERIAL Ordering Provid er: IRENE BURNS TWO Report Released Date/Time: Nov 29, 2021 07:53 PM Reporting Lab: [facility] [address] [facility] [address] Performing Lab: [facility] [address] POC PH 7.321 L 7.35-7.45 POC PCO2 [...] mg/dL L 4.50-5.30 Nov 29, 2021 03:24 [facility] FINGERSTICK GLUCOSE Speci men Type: BLOOD PM Comment: Save R esult Ordering Provid er: IRENE BURNS TWO Report Released Date/Time: Nov 29, 2021 08:08 PM Reporting Lab: [facility] [address] [facility] [address] Performing Lab: [facility] [address] [facility] [address] FINGERSTICK GLUCOSE 188 mg/dL H 70-100 Nov 29, 2021 02:06 [facility] POC ABG/ELECTROLYTES Spec imen Type: ARTERIAL BLOOD PM Comment: Sample Type = ARTERIAL Ordering Provid er: GRANTCARDS TWO Report Released Date/Time: Nov 29, 2021 07:53 PM Reporting Lab: [facility] [address] [facility] [address] Performing Lab: [facility] [address] [facility] [address] POC PH 7.313 L 7.35-7.45 POC PCO2 [...] mg/dL L 4.50-5.30 Nov 29, 2021 02:04 [facility] FINGERSTICK GLUCOSE Speci men Type: BLOOD PM Comment: Save R esult Ordering Provid er: IRENE BURNS TWO Report Released Date/Time: Nov 29, 2021 08:08 PM Reporting Lab: [facility] [address] [facility] [address] Performing Lab: [facility] [address] [facility] [address] FINGERSTICK GLUCOSE 236 mg/dL H 70-100 Nov 29, 2021 01:52 PM [facility] POC ACT Specim en Type: BLOOD No comment enter ed. Ordering Provid er: IRENE BURNS Report Released Date/Time: Dec 03, 2021 01:31 PM Reporting Lab: [facility] [address] [facility] [address] Performing Lab: [facility] [address] [facility] [address] POC ACT 135 s 84-139 Nov 29, 2021 01:16 PM [facility] POC ACT Specim en Type: BLOOD No comment enter ed. Ordering Provid er: IRENE BURNS TWO Report Released Date/Time: Dec 03, 2021 01:30 PM Reporting Lab: [facility] [address] [facility] [address] Performing Lab: [facility] [address] [facility] [address] POC ACT 355 s 84-139 Nov 29, 2021 12:49 PM [facility] POC ACT Specim en Type: BLOOD No comment enter ed. Ordering Provid er: IRENE BURNS TWO Report Released Date/Time: Dec 03, 2021 01:30 PM Reporting Lab: [facility] [address] [facility] [address] Performing Lab: [facility] [address] [facility] [address] POC ACT 367 s 84-139 Nov 29, 2021 12:48 [facility] POC ABG/ELECTROLYTES Spec imen Type: ARTERIAL BLOOD PM Comment: Sample Type = ARTERIAL Ordering Provid er: IRENE BURNS Report Released Date/Time: Nov 29, 2021 07:53 PM Reporting Lab: [facility] [address] [facility] [address] Performing Lab: [facility] [address] POC PH 7.289 L 7.35-7.45 POC PCO2 [...] 4.7 mg/dL 4.50-5.30 Nov 29, 2021 12:45 [facility] FINGERSTICK GLUCOSE Speci men Type: BLOOD PM Comment: Save R esult Ordering Provid er: IRENE BURNS Report Released Date/Time: Nov 29, 2021 08:08 PM Reporting Lab: [facility] [address] [facility] [address] Performing Lab: [facility] [address] [facility] [address] FINGERSTICK GLUCOSE 186 mg/dL H 70-100 Nov 29, 2021 12:26 PM [facility] POC ACT Specim en Type: BLOOD No comment enter ed. Ordering Provid er: IRENE BURNS Report Released Date/Time: Dec 03, 2021 01:30 PM Reporting Lab: [facility] [address] [facility] [address] Performing Lab: [facility] [address] [facility] [address] POC ACT 367 s 84-139 Nov 29, 2021 11:58 AM [facility] POC ACT Specim en Type: BLOOD No comment enter ed. Ordering Provid er: IRENE BURNS Report Released Date/Time: Dec 03, 2021 01:30 PM Reporting Lab: [facility] [address] [facility] [address] Performing Lab: [facility] [address] [facility] [address] POC ACT 338 s 84-139 Nov 29, 2021 11:53 [facility] FINGERSTICK GLUCOSE Speci men Type: BLOOD AM Comment: Save R esult Ordering Provid er: IRENE BURNS Report Released Date/Time: Nov 29, 2021 08:08 PM Reporting Lab: [facility] [address] [facility] [address] Performing Lab: [facility] [address] FINGERSTICK GLUCOSE 225 mg/dL H 70-100 Nov 29, 2021 11:30 AM [facility] POC ACT Specim en Type: BLOOD No comment enter ed. Ordering Provid er: IRENE BURNS Report Released Date/Time: Dec 03, 2021 01:30 PM Reporting Lab: [facility] [address] [facility] [address] Performing Lab: [facility] [address] [facility] [address] POC ACT 355 s 84-139 Nov 29, 2021 11:26 [facility] POC ABG/ELECTROLYTES Spec imen Type: ARTERIAL BLOOD AM Comment: Sample Type = ARTERIAL Ordering Provid er: IRENE BURNS Report Released Date/Time: Nov 29, 2021 07:53 PM Reporting Lab: [facility] [address] [facility] [address] Performing Lab: [facility] [address] [facility] [address] POC PH 7.317 L 7.35-7.45 POC PCO2 [...] 4.8 mg/dL 4.50-5.30 Nov 29, 2021 11:06 [facility] FINGERSTICK GLUCOSE Speci men Type: BLOOD AM No comment enter ed. Ordering Provid er: IRENE BURNS Report Released Date/Time: Nov 29, 2021 08:08 PM Reporting Lab: [facility] [address] [facility] [address] Performing Lab: [facility] [address] [facility] [address] FINGERSTICK GLUCOSE 221 mg/dL H 70-100 Nov 29, 2021 11:02 AM [facility] POC ACT Specim en Type: BLOOD No comment enter ed. Ordering Provid er: IRENE BURNS Report Released Date/Time: Dec 03, 2021 01:30 PM Reporting Lab: [facility] [address] [facility] [address] Performing Lab: [facility] [address] [facility] [address] POC ACT 294 s 84-139 Nov 29, 2021 10:26 AM [facility] POC ACT Specim en Type: BLOOD No comment enter ed. Ordering Provid er: IRENE BURNS Report Released Date/Time: Dec 03, 2021 01:30 PM Reporting Lab: [facility] [address] [facility] [address] Performing Lab: [facility] [address] [facility] [address] POC ACT 329 s 84-139 Nov 29, 2021 10:06 AM [facility] POC ACT Specim en Type: BLOOD No comment enter ed. Ordering Provid er: IRENE BURNS Report Released Date/Time: Dec 03, 2021 01:30 PM Reporting Lab: [facility] [address] [facility] [address] Performing Lab: [facility] [address] [facility] [address] POC ACT 312 s 84-139 Nov 29, 2021 09:58 [facility] POC ABG/ELECTROLYTES Spec imen Type: ARTERIAL BLOOD AM Comment: Sample Type = ARTERIAL Ordering Provid er: IRENE BURNS Report Released Date/Time: Nov 29, 2021 07:53 PM Reporting Lab: [facility] [address] [facility] [address] Performing Lab: [facility] [address] [facility] [address] POC PH 7.334 L 7.35-7.45 POC PCO2 [...] 4.9 mg/dL 4.50-5.30 Nov 29, 2021 09:56 [facility] FINGERSTICK GLUCOSE Speci men Type: BLOOD AM No comment enter ed. Ordering Provid er: IRENE BURNS TWO Report Released Date/Time: Nov 29, 2021 08:08 PM Reporting Lab: [facility] [address] Performing Lab: [facility] [address] FINGERSTICK GLUCOSE 194 mg/dL H 70-100 Nov 29, 2021 09:45 AM [facility] POC ACT Specim en Type: BLOOD No comment enter ed. Ordering Provid er: IRENE BURNS TWO Report Released Date/Time: Dec 03, 2021 01:30 PM Reporting Lab: [facility] [address] Performing Lab: [facility] [address] POC ACT 269 s 84-139 Nov 29, 2021 08:59 AM [facility] POC ACT Specim en Type: BLOOD No comment enter ed. Ordering Provid er: IRENE BURNS TWO Report Released Date/Time: Dec 03, 2021 01:30 PM Reporting [facility] [address] Performing Lab: [facility] [address] POC ACT 135 s 84-139 Nov 29, 2021 [facility] COVID-19 AND FLU/RSV Specime n Type: NASOPHARYNGEAL 07:05 AM DIAG PANEL(CEPHEID) Comment: Ce pheid GeneXpert (618) Ordering Provid er: KATHERINE FIGUEROA Report Released Date/Time: Oct 29, 2021 12:22 PM Reporting Lab: [facility] [address] Performing Lab: [facility] [address] COVID-19 (CEPHEID) Not Detected Not Dete cted INFLUENZA A (PCR) Not Detected Not Detec susanne INFLUENZA B (PCR) Not Detected Not Detec susanne RSV (PCR) Not Detected Not Detected Nov 29, 2021 [facility] BASIC METABOLIC Specimen Typ e: PLASMA 06:38 AM PANEL+MG No comment enter ed. Ordering Provid er: KATHERINE FIGUEROA Report Released Date/Time: Oct 29, 2021 12:22 PM Reporting Lab: [facility] [address] Performing Lab: [facility] [address] CREATININE 1.4 mg/dL H 0.7-1.2 UREA NITROGEN 23 mg/dL 8-26 GLUCOSE 201 mg/dL H 74-100 SODIUM 143 mmol/L 136-145 POTASSIUM 4.3 mmol/L 3.5-5.1 CHLORIDE 108 mmol/L H 98-107 CO2 28 mmol/L 22-29 CALCIUM 9.9 mg/dL 8.4-10.2 MAGNESIUM 1.9 mg/dL 1.6-2.6 ANION GAP 7 mmol/L 5-15 CREAT EGFR(CKD-EPI) 53 L >60 Nov 29, 2021 06:38 [facility] CBC Specimen Type: BLOOD AM No comment enter ed. Ordering Provid er: KATHERINE FIGUEROA Report Released Date/Time: Oct 29, 2021 12:22 PM Reporting Lab: [facility] [address] Performing Lab: [facility] [address] WBC 7.40 10*3/uL 4.0-11.0 RBC 5.17 10*6/uL 4.6-6.2 HGB 17.6 g/dL 13.5-17.9 HCT 52.7 41-54 MCV 101.9 fL H 80-100 MCH 34.0 pg H 27-33 MCHC 33.4 g/dL 32.0-37.5 PLT 88 10*3/uL L 150-400 MPV 14.3 fL H 7.4-10.4 RDW 14.4 11.5-14.5 IPF 18.0 H 0-10 Nov 29, 2021 [facility] PROTHROMBIN Specimen Typ e: PLASMA 06:38 AM TIME/INR No comment enter ed. Ordering Provid er: KATHERINE FIGUEROA Report Released Date/Time: Oct 29, 2021 12:22 PM Reporting Lab: [facility] [address] [facility] [address] Performing Lab: [facility] [address] [facility] [address] .INR 1.1 0.8-1.1 .PT 13.1 s H 9.4-12.5 Nov 29, 2021 [facility] ACT PART Specimen Typ e: PLASMA 06:38 AM THROMBO TIME No comment enter ed. Ordering Provid er: KATHERINE FIGUEROA Report Released Date/Time: Oct 29, 2021 12:22 PM Reporting Lab: [facility] [address] [facility] [address] Performing Lab: [facility] [address] [facility] [address] APTT 33.3 s 25.1-36.5 Social History: Smoking [...] Comment [facility] ACCEPT Tobacco Use History This section includes a history of the smoking, or tobacco- related health factors, that were collected on or before the date of the Encounter. The data comes from the [place] facility where the Encounter took place. Date/Time Smoking Status/Tobacco Use Comment Nicola matta Mar 20, 2021 11:21 AM [facility] TOBACCO USE CURRENT NRT [facility] DECLINE Nov 15, 2020 10:00 AM VA-TOBACCO DOESNT USE WI 30 MIN [facility] WAKEUP Nov 15, 2020 10:00 AM VA-TOBACCO USE 30 YEARS OR MORE [facility] Nov 15, 2020 10:00 AM VA-TOBACCO USE ADVICE [place] [facility] Nov 15, 2020 10:00 AM VA-TOBACCO USE LIABILITY ANALYST NO [facility] Nov 15, 2020 10:00 AM VA-TOBACCO USE MED NO [place] [facility] Nov 15, 2020 10:00 AM VA-TOBACCO USER EVERY DAY [facility] Jun 21, 2019 02:29 PM VA-TOBACCO USE 30 YEARS OR MORE [facility] Jun 21, 2019 02:29 PM VA-TOBACCO USE ADVICE [place] [facility] Jun 21, 2019 02:29 PM VA-TOBACCO USE LIABILITY ANALYST NO [facility] Jun 21, 2019 02:29 PM VA-TOBACCO USE MED NO [place] [facility] Jun 21, 2019 02:29 PM VA-TOBACCO USE WI 30 MIN OF WAKEUP [facility] Jun 21, 2019 02:29 PM VA-TOBACCO USER EVERY DAY [facility] Jun 09, 2018 03:48 PM VA-TOBACCO USE 30 YEARS OR MORE [facility] Jun 09, 2018 03:48 PM VA-TOBACCO USE ADVICE [place] [facility] Jun 09, 2018 03:48 PM VA-TOBACCO USE LIABILITY ANALYST NO [facility] Jun 09, 2018 03:48 PM VA-TOBACCO USE MED NO [place] [facility] Jun 09, 2018 03:48 PM VA-TOBACCO USE [place] 30 MIN OF WAKEUP [facility] Jun 09, 2018 03:48 PM VA-TOBACCO USER EVERY DAY [facility] Jun 20, 2017 07:53 AM CURRENT TOBACCO USER [facility] Jun 19, 2016 08:41 AM [facility] Jun 21, 2015 08:15 AM [facility] Mar 22, 2014 10:03 AM CURRENT TOBACCO USER [facility] Mar 25, 2013 11:01 AM [facility] Feb 05, 2012 08:55 AM [facility] January 01, 2011 09:26 AM CUR[facility] Mar 07, 2010 10:02 AM [facility] Feb 21, 2009 08:17 AM CURRENT [facility]ACCO USER [facility] Nov 06, 2007 10:02 AM CURRENT [...] Source Mar 06, 2005 ADVANCE DIRECTIVE MICHAELGANESH [facility] Radiology Reports: +/- 30 days [...] the Encounter. The data comes from all [place] treatment facilities. Date/Time Radiology Report Provider Source Nov 30, 2021 07:05 AM CHEST 2 VIEWS PA AND LAT: MONET LUDWIG [facility] PAUL MICHELE [id number] -[birth year] M Exm Date: NOV 30, 2021@07:05 Req Phys: CHERRY MENDOZA Loc: 3LSOB/ 2@08:05 Img Loc: MAIN X-RAY Service: zzcard sect (Case [id number] COMPLETE) CHEST 2 VIEWS PA AND LAT (R AD Detailed) CPT:88640 Reason for Study: s/p upgrade ICD adding an A l ead Clinical History: Post ICD or Pacemaker: Verify Lead Placement. [place] IS NOT under investigation for COVID-19 or is COVID-19 negative s/p upgrade ICD adding an A lead Responsible pr ovider name and phone number to notify for critical findings if other than user placing the order and pager listed below: User placing orders pager: [phone] LAST CREATININE 1.4 H (11/29/21) Report Status: Verified Date Reported: NOV 30, 2021 Date Verified: NOV 30, 2021 Flower Stripper E-Sig:/ES/MONET LUDWIG MD, FACR, C CD Report: [...] 06:25 PM CHEST 1 VIEW: MAGDALENE DAVIDSON [facility] PAUL MICHELE [id number] -[birth year] M Exm Date: NOV 29, 2021@18:25 Req Phys: CHERRY MENDOZA Pat Loc: [facility] [address] [facility] (Req'g Loc) Img Loc: MAIN X-RAY Service: Unknown (Case [id number] COMPLETE) CHEST 1 VIEW (RAD Detailed) CPT:83555 Reason for Study: s/p upgrade ICD adding [...] pager listed below: User placing orders pager: [phone] LAST CREATININE 1.4 H (11/29/21) Report Status: Verified Date Reported: NOV 29, 2021 Date Verified: NOV 29, 2021 Flower Stripper E-Sig:/ES/MAGDALENE DAVIDSON MD Report: DATE/TIME REGISTERED: 11/29/2021 [...] Primary Interpreting Staff: MAGDALENE DAVIDSON MD, RADIOLOGIST (Flower Stripper) /LUAN Encounter Notes: All associated encounter notes This section contains the clinical notes associated to the Encounter. Date/Time Encounter Note(s) Provider Source Dec 03, 2021 09:25 AM CARDIOLOGY DIAGNOSTIC STUDY NOTE: SNADI [facility] LOCAL TITLE: CARDIOLOGY ELECTROPHYSIOLOGY NOTE STANDARD TITLE: CARDIOLOGY DIAGNOSTIC STUDY NOTE DATE OF NOTE: DEC 03, 2021@09:25 ENTRY DATE: DEC 03, 2021@09:25:29 AUTHOR: SANDI BRADFORD EXP COSIGNER: URGENCY: STATUS: COMPLETED Patient's [employer] dual chamber ICD checked via [employer] [facility] ([facility]) comments: - Alert transmission. Appropriate discrimination o f SVT. Treated AT/AF episode(s) in progress. AFL/AF noted, longest episode 6 min utes to < 24 hours. AT/AF Daily [place] > Threshold, Fast V Rate During AT/AF. [facility] comments: Remote received shows 1 AT/A F and 1 SVT episodes. Both on 12/01/21. AT/AF episode in progress since 12/01 at 1411. SVT episode at 1748 shows AF w/RVR at 171bpm. Heart ra noy >110bpm 40% of time when in AT/AF. Total burden 15.7% since 11/29/21 - 8hrs. Patient on Apixaban a nd Metoprolol. Will alert EP MD's for FYI post ablation. Report available via [employer]. Indication: primary prevention/AF Active Outpatient Medications (including Supplie s): Active [...] METOPROLOL SUCCINATE 200MG SA TAB TAKE ONE-H JAIL ACTIVE TABLET BY MOUTH EVERY DAY FOR [...] CLAW ACTIVE MOUTH 20 Total Medications Next EP device: 12/2021 /billy/ SANDI BRADFORD RN REGISTERED NURSE Signed: 12/03/2021 09:52 Receipt Acknowledged By: * AWAITING SIGNATURE * CHERRY MENDOZA * AWAITING SIGNATURE * PAT FIGUEROA
--- OUTSIDE RECORDS SUMMARY | 2022-04-02 16:10 | XMS_ITS | Encounter Summary ---
:1945 Author Organization Department [facility] Address [address] [place] [id number] Care Team Providers Name Role Phone WILLA [...] MEDICARE MEDICARE PART Jun 25, PART B [id number] Saumya QUINONES PATIENT (WNR) (M) B 2011 78A 0 AVID MEDICARE MEDICARE PART Sep 25, PART A [id number] Saumya QUINONES PATIENT (WNR) (M) A 2009 78A 0 AVID MEDICARE MEDICARE PART Sep 25, PART A [id number] Saumya MICHELE (WNR) (M) A 2009 [id number] AVID MEDICARE MEDICARE PART Sep 25, PART B [id number] Saumya MICHELE (WNR) (M) B 2009 [id number] [id number] AVID Selected Encounter This section includes the information on record at NE for the Encounter. Date/Time Encounter Type Encounter Reason Provider Source Description Dec 07, 2021 POSTOP TELEPHONE/ANCILLA ICD-10-CM Z95.810 Sofia BRADFORD ANDR 03:36 PM FOLLOW-UP VISIT RY Presence of A L automatic (implantable) cardiac defibrillator with Provider Comments: Cardiac defibrillator in situ ([facility] [id number]) IHE Encounter Template Text not used by [facility] Assessments - Encounter Diagnoses This section includes the primary and secondary diagnoses documented for the Encounter. Date/Time Primary/Secondary Diagnosis Name Provider Source Diagnosis Dec 07, 2021 PRIMARY Presence of GREGORY BRADFORD [facility] 03:36 PM automatic A L HCS (implantable) cardiac defibrillator Plan of Treatment: Future Appointments (+ 6 months) and Future Tests (+/- 45 days) The Plan of Treatment section includes [facility] care [facility] for the [facility] This section includes future appointments and future orders which are active, pending orscheduled.Future Appointments This section includes appointments that were scheduled to occur 6 months from the date of the Encounter, up to a maximum of 20 appointments. The data comes from all [facility]. Appointment Date/Time Appointment Type Appointment Facili ty Name Dec 21, 2021 09:30 AM AMBULATORY - NONE [facility] January 07, 2022 01:30 PM AMBULATORY - MEDICINE [facility] Feb 05, 2022 07:00 AM AMBULATORY - NONE [facility] Feb 07, 2022 09:30 AM AMBULATORY - [facility] Feb 13, 2022 10:00 AM AMBULATORY - NONE [facility] Mar 21, 2022 09:30 AM AMBULATORY [facility] Active, Pending, and Scheduled Orders This section includes a listing of several types of active, pending, and scheduled orders, including clinic medications orders, diagnostic test orders, procedure orders and consult orders; where the start date of the order is 45 days before the date of the Encounter or 45 days after the date of the Encounter. The data comes from all [place] treatment [facility]. Test Date/Time Test Type Test Details Facility Name Nov 29, 2021 06:30 AM Laboratory - Blood Bank TYPE & SCREEN - LA B [facility] Order BLOOD SP Dec 15, 2021 12:00 AM Laboratory - Chemistry BASIC METABOLIC MIN [facility] Order PANEL+MG PLASMA SP Lab [...] Reference Range Comment Nov 30, 2021 11:26 [facility] FINGERSTICK GLUCOSE Speci men Type: BLOOD AM Comment: [place] Nurse Notified Ordering Provid er: IRENE BURNS Report Released Date/Time: Nov 30, 2021 11:46 AM Reporting Lab: [facility] [address] [facility] [address] Performing Lab: [facility] [address] [facility] [address] FINGERSTICK GLUCOSE 284 mg/dL H 70-100 Nov 30, 2021 09:47 AM [facility] ALBUMIN Specim en Type: PLASMA No comment enter ed. Ordering Provid er: ELIUD DINERO Report Released Date/Time: Nov 29, 2021 07:53 PM Reporting Lab: [facility] [address] [facility] [address] Performing Lab: [facility] [address] ALBUMIN 3.4 g/dL L 3.5-5.2 Nov 30, 2021 09:47 [facility] BASIC METABOLIC Specimen Type: PLASMA AM PANEL+MG No comment enter ed. Ordering Provid er: ANGIE MALHOTRA Report Released Date/Time: Nov 29, 2021 08:12 PM Reporting Lab: [facility] [address] [facility] [address] Performing Lab: [facility] [address] [facility] [address] CREATININE 1.2 mg/dL 0.7-1.2 UREA NITROGEN 18 mg/dL 8-26 GLUCOSE 342 mg/dL H 74-100 SODIUM 141 mmol/L 136-145 POTASSIUM 4.3 mmol/L 3.5-5.1 CHLORIDE 108 mmol/L H 98-107 CO2 26 mmol/L 22-29 CALCIUM 8.6 mg/dL 8.4-10.2 MAGNESIUM 1.5 mg/dL L 1.6-2.6 ANION GAP 7 mmol/L 5-15 CREAT EGFR(CKD-EPI) 63 >60 Nov 30, 2021 09:46 AM [facility] CBC Specim en Type: BLOOD No comment enter ed. Ordering Provid er: ANGIE MALHOTRA Report Released Date/Time: Nov 29, 2021 08:12 PM Reporting Lab: [facility] [address] [facility] [address] Performing Lab: [facility] [address] [facility] [address] WBC 10.61 10*3/uL 4.0-11.0 RBC 4.33 10*6/uL L 4.6-6.2 HGB 14.6 g/dL 13.5-17.9 HCT 45.2 41-54 MCV 104.4 fL H 80-100 MCH 33.7 pg H 27-33 MCHC 32.3 g/dL 32.0-37.5 PLT 71 10*3/uL L 150-400 MPV 13.9 fL H 7.4-10.4 RDW 14.7 H 11.5-14.5 IPF 17.8 H 0-10 Nov 30, 2021 06:09 [facility] FINGERSTICK GLUCOSE Speci men Type: BLOOD AM Comment: [place] Nurse Notified Ordering Provid er: IRENE BURNS Report Released Date/Time: Nov 30, 2021 06:32 AM Reporting Lab: [facility] [address] [facility] [address] Performing Lab: [facility] [address] [facility] [address] FINGERSTICK GLUCOSE 165 mg/dL H 70-100 Nov 29, 2021 07:35 [facility] FINGERSTICK GLUCOSE Speci men Type: BLOOD PM Comment: [place] Nurse Notified Ordering Provid er: IRENE BURNS Report Released Date/Time: Nov 29, 2021 07:48 PM Reporting Lab: [facility] [address] [facility] [address] Performing Lab: [facility] [address] [facility] [address] FINGERSTICK GLUCOSE 160 mg/dL H 70-100 Nov 29, 2021 06:52 [facility] FINGERSTICK GLUCOSE Speci men Type: BLOOD PM Comment: [place] Nurse Notified Ordering Provid er: SAKSHI CROUCH Report Released Date/Time: Nov 29, 2021 07:04 PM Reporting Lab: [facility] [address] [facility] [address] Performing Lab: [facility] [address] [facility] [address] FINGERSTICK GLUCOSE 161 mg/dL H 70-100 Nov 29, 2021 04:18 [facility] FINGERSTICK GLUCOSE Speci men Type: BLOOD PM No comment enter ed. Ordering Provid er: IRENE BURNS TWO Report Released Date/Time: Nov 29, 2021 08:08 PM Reporting Lab: [facility] [address] [facility] [address] Performing Lab: [facility] [address] [facility] [address] FINGERSTICK GLUCOSE 179 mg/dL H 70-100 Nov 29, 2021 03:26 [facility] POC ABG/ELECTROLYTES Spec imen Type: ARTERIAL BLOOD PM Comment: Sample Type = ARTERIAL Ordering Provid er: TEAM,CARDS TWO Report Released Date/Time: Nov 29, 2021 07:53 PM Reporting Lab: [facility] [address] [facility] [address] Performing Lab: [facility] [address] [facility] [address] POC PH 7.321 L 7.35-7.45 POC PCO2 [...] mg/dL L 4.50-5.30 Nov 29, 2021 03:24 [facility] FINGERSTICK GLUCOSE Speci men Type: BLOOD PM Comment: Save R esult Ordering Provid er: TEAM,CARDS TWO Report Released Date/Time: Nov 29, 2021 08:08 PM Reporting Lab: [facility] [address] [facility] [address] Performing Lab: [facility] [address] [facility] [address] FINGERSTICK GLUCOSE 188 mg/dL H 70-100 Nov 29, 2021 02:06 [facility] POC ABG/ELECTROLYTES Spec imen Type: ARTERIAL BLOOD PM Comment: Sample Type = ARTERIAL Ordering Provid er: TEAM,CARDS TWO Report Released Date/Time: Nov 29, 2021 07:53 PM Reporting Lab: [facility] [address] [facility] [address] Performing Lab: [facility] [address] [facility] [address] POC PH 7.313 L 7.35-7.45 POC PCO2 [...] mg/dL L 4.50-5.30 Nov 29, 2021 02:04 [facility] FINGERSTICK GLUCOSE Speci men Type: BLOOD PM Comment: [place] Ordering Provid er: IRENE BURNS TWO Report Released Date/Time: Nov 29, 2021 08:08 PM Reporting Lab: [facility] [address] [facility] [address] Performing Lab: [facility] [address] [facility] [address] FINGERSTICK GLUCOSE 236 mg/dL H 70-100 Nov 29, 2021 01:52 PM [facility] POC ACT Specim en Type: BLOOD No comment enter ed. Ordering Provid er: IRENE BURNS TWO Report Released Date/Time: Dec 03, 2021 01:31 PM Reporting Lab: [facility] [address] [facility] [address] Performing Lab: [facility] [address] [facility] [address] POC ACT 135 s 84-139 Nov 29, 2021 01:16 PM [facility] POC ACT Specim en Type: BLOOD No comment enter ed. Ordering Provid er: IRENE BURNS TWO Report Released Date/Time: Dec 03, 2021 01:30 PM Reporting Lab: [facility] [address] [facility] [address] Performing Lab: [facility] [address] [facility] [address] POC ACT 355 s 84-139 Nov 29, 2021 12:49 PM [facility] POC ACT Specim en Type: BLOOD No comment enter ed. Ordering Provid er: IRENE BURNS TWO Report Released Date/Time: Dec 03, 2021 01:30 PM Reporting Lab: [facility] [address] [facility] [address] Performing Lab: [facility] [address] [facility] [address] POC ACT 367 s 84-139 Nov 29, 2021 12:48 [facility] POC ABG/ELECTROLYTES Spec imen Type: ARTERIAL BLOOD PM Comment: Sample Type = ARTERIAL Ordering Provid er: IRENE BURNS TWO Report Released Date/Time: Nov 29, 2021 07:53 PM Reporting Lab: [facility] [address] [facility] [address] Performing Lab: [facility] [address] POC PH 7.289 L 7.35-7.45 POC PCO2 [...] 4.7 mg/dL 4.50-5.30 Nov 29, 2021 12:45 [facility] FINGERSTICK GLUCOSE Speci men Type: BLOOD PM Comment: Save R esult Ordering Provid er: IRENE BURNS TWO Report Released Date/Time: Nov 29, 2021 08:08 PM Reporting Lab: [facility] [place] [address] [facility] [address] Performing Lab: [facility] [address] [facility] [address] FINGERSTICK GLUCOSE 186 mg/dL H 70-100 Nov 29, 2021 12:26 PM [facility] POC ACT Specim en Type: BLOOD No comment enter ed. Ordering Provid er: IRENE BURNS TWO Report Released Date/Time: Dec 03, 2021 01:30 PM Reporting Lab: [facility] [address] [facility] [address] Performing Lab: [facility] [address] [facility] [address] POC ACT 367 s 84-139 Nov 29, 2021 11:58 AM [facility] POC ACT Specim en Type: BLOOD No comment enter ed. Ordering Provid er: IRENE BURNS Report Released Date/Time: Dec 03, 2021 01:30 PM Reporting Lab: [facility] [address] [facility] [address] Performing Lab: [facility] [place] [address] [facility] [address] POC ACT 338 s 84-139 Nov 29, 2021 11:53 [facility] FINGERSTICK GLUCOSE Speci men Type: BLOOD AM Comment: Save R esult Ordering Provid er: IRENE BURNS Report Released Date/Time: Nov 29, 2021 08:08 PM Reporting Lab: [facility] [address] [facility] [address] Performing Lab: [facility] [place] [address] [facility] [address] FINGERSTICK GLUCOSE 225 mg/dL H 70-100 Nov 29, 2021 11:30 AM [facility] POC ACT Specim en Type: BLOOD No comment enter ed. Ordering Provid er: IRENE BURNS Report Released Date/Time: Dec 03, 2021 01:30 PM Reporting Lab: [facility] [address] [facility] [address] Performing Lab: [facility] [address] [facility] [address] POC ACT 355 s 84-139 Nov 29, 2021 11:26 [facility] POC ABG/ELECTROLYTES Spec imen Type: ARTERIAL BLOOD AM Comment: Sample Type = ARTERIAL Ordering Provid er: IRENE BURNS Report Released Date/Time: Nov 29, 2021 07:53 PM Reporting Lab: [facility] [address] [facility] [address] Performing Lab: [facility] [address] [facility] [address] POC PH 7.317 L 7.35-7.45 POC PCO2 [...] 4.8 mg/dL 4.50-5.30 Nov 29, 2021 11:06 [facility] FINGERSTICK GLUCOSE Speci men Type: BLOOD AM No comment enter ed. Ordering Provid er: IRENE BURNS Report Released Date/Time: Nov 29, 2021 08:08 PM Reporting Lab: [facility] [address] [facility] [address] Performing Lab: [facility] [address] [facility] [address] FINGERSTICK GLUCOSE 221 mg/dL H 70-100 Nov 29, 2021 11:02 AM [facility] POC ACT Specim en Type: BLOOD No comment enter ed. Ordering Provid er: IRENE BURNS Report Released Date/Time: Dec 03, 2021 01:30 PM Reporting Lab: [facility] [address] [facility] [address] Performing Lab: [facility] [address] [facility] [address] POC ACT 294 s 84-139 Nov 29, 2021 10:26 AM [facility] POC ACT Specim en Type: BLOOD No comment enter ed. Ordering Provid er: IRENE BURNS Report Released Date/Time: Dec 03, 2021 01:30 PM Reporting Lab: [facility] [address] [facility] [address] Performing Lab: [facility] [address] [facility] [address] POC ACT 329 s 84-139 Nov 29, 2021 10:06 AM [facility] POC ACT Specim en Type: BLOOD No comment enter ed. Ordering Provid er: IRENE BURNS Report Released Date/Time: Dec 03, 2021 01:30 PM Reporting Lab: [facility] [address] [facility] [address] Performing Lab: [facility] [address] [facility] [address] POC ACT 312 s 84-139 Nov 29, 2021 09:58 [facility] POC ABG/ELECTROLYTES Spec imen Type: ARTERIAL BLOOD AM Comment: Sample Type = ARTERIAL Ordering Provid er: IRENE BURNS Report Released Date/Time: Nov 29, 2021 07:53 PM Reporting Lab: [facility] [address] [facility] [address] Performing Lab: [facility] [address] [facility] [address] POC PH 7.334 L 7.35-7.45 POC PCO2 [...] 4.9 mg/dL 4.50-5.30 Nov 29, 2021 09:56 [facility] FINGERSTICK GLUCOSE Speci men Type: BLOOD AM No comment enter ed. Ordering Provid er: IRENE BURNS TWO Report Released Date/Time: Nov 29, 2021 08:08 PM Reporting Lab: [facility] [address] [facility] [address] Performing Lab: [facility] [address] [facility] [address] FINGERSTICK GLUCOSE 194 mg/dL H 70-100 Nov 29, 2021 09:45 AM [facility] POC ACT Specim en Type: BLOOD No comment enter ed. Ordering Provid er: IRENE BURNS TWO Report Released Date/Time: Dec 03, 2021 01:30 PM Reporting Lab: [facility] [address] [facility] [address] Performing Lab: [facility] [address] [facility] [address] POC ACT 269 s 84-139 Nov 29, 2021 08:59 AM [facility] POC ACT Specim en Type: BLOOD No comment enter ed. Ordering Provid er: IRENE BURNS TWO Report Released Date/Time: Dec 03, 2021 01:30 PM Reporting Lab: [facility] [address] [facility] [address] Performing Lab: [facility] [address] [facility] [address] POC ACT 135 s 84-139 Nov 29, 2021 [facility] COVID-19 AND FLU/RSV Specime n Type: NASOPHARYNGEAL 07:05 AM DIAG PANEL(CEPHEID) Comment: Ce pheid GeneXpert (618) Ordering Provid er: KATHERINE FIGUEROA Report Released Date/Time: Oct 29, 2021 12:22 PM Reporting Lab: [facility] [address] Performing Lab: [facility] [address] COVID-19 (CEPHEID) Not Detected Not Dete cted INFLUENZA A (PCR) Not Detected Not Detec susanne INFLUENZA B (PCR) Not Detected Not Detec susanne RSV (PCR) Not Detected Not Detected Nov 29, 2021 [facility] BASIC METABOLIC Specimen Typ e: PLASMA 06:38 AM PANEL+MG No comment enter ed. Ordering Provid er: KATHERINE FIGUEROA Report Released Date/Time: Oct 29, 2021 12:22 PM Reporting Lab: [facility] [address] Performing Lab: [facility] [address] CREATININE 1.4 mg/dL H 0.7-1.2 UREA NITROGEN 23 mg/dL 8-26 GLUCOSE 201 mg/dL H 74-100 SODIUM 143 mmol/L 136-145 POTASSIUM 4.3 mmol/L 3.5-5.1 CHLORIDE 108 mmol/L H 98-107 CO2 28 mmol/L 22-29 CALCIUM 9.9 mg/dL 8.4-10.2 MAGNESIUM 1.9 mg/dL 1.6-2.6 ANION GAP 7 mmol/L 5-15 CREAT EGFR(CKD-EPI) 53 L >60 Nov 29, 2021 06:38 [facility] CBC Specimen Type: BLOOD AM No comment enter ed. Ordering Provid er: KATHERINE FIGUEROA Report Released Date/Time: Oct 29, 2021 12:22 PM Reporting Lab: [facility] [address] [facility] [address] Performing Lab: [facility] [address] WBC 7.40 10*3/uL 4.0-11.0 RBC 5.17 10*6/uL 4.6-6.2 HGB 17.6 g/dL 13.5-17.9 HCT 52.7 41-54 MCV 101.9 fL H 80-100 MCH 34.0 pg H 27-33 MCHC 33.4 g/dL 32.0-37.5 PLT 88 10*3/uL L 150-400 MPV 14.3 fL H 7.4-10.4 RDW 14.4 11.5-14.5 IPF 18.0 H 0-10 Nov 29, 2021 [facility] PROTHROMBIN Specimen Typ e: PLASMA 06:38 AM TIME/INR No comment enter ed. Ordering Provid er: KATHERINE FIGUEROA Report Released Date/Time: Oct 29, 2021 12:22 PM Reporting [facility] [address] Performing Lab: [facility] [address] .INR 1.1 0.8-1.1 .PT 13.1 s H 9.4-12.5 Nov 29, 2021 [facility] ACT PART Specimen Typ e: PLASMA 06:38 AM THROMBO TIME No comment enter ed. Ordering Provid er: KATHERINE FIGUEROA Report Released Date/Time: Oct 29, 2021 12:22 PM Reporting [facility] [address] Performing Lab: [facility] [address] APTT 33.3 s 25.1-36.5 Social History: Smoking [...] Comment Facility Nov 29, 2021 08:36 PM [facility] TOBACCO USE CURRENT NRT [facility] ACCEPT Tobacco Use History This section includes a history of the smoking, or tobacco- related health factors, that were collected on or before the date of the Encounter. The data comes from the [place] facility where the Encounter took place. Date/Time Smoking Status/Tobacco Use Comment [facility] Mar 20, 2021 11:21 AM NE-VAAES TOBACCO USE CURRENT NRT [facility] DECLINE Nov 15, 2020 10:00 AM VA-TOBACCO DOESNT USE WI 30 MIN [facility] WAKEUP Nov 15, 2020 10:00 AM VA-TOBACCO USE 30 YEARS OR MORE [facility] Nov 15, 2020 10:00 AM VA-TOBACCO USE ADVICE [place] [facility] Nov 15, 2020 10:00 AM VA-TOBACCO USE POLICE DETENTION ATTENDANT NO [facility] Nov 15, 2020 10:00 AM VA-TOBACCO USE MED NO [place] [facility] Nov 15, 2020 10:00 AM VA-TOBACCO USER EVERY DAY [facility] Jun 21, 2019 02:29 PM VA-TOBACCO USE 30 YEARS OR MORE [facility] Jun 21, 2019 02:29 PM VA-TOBACCO USE ADVICE [place] [facility] Jun 21, 2019 02:29 PM VA-TOBACCO USE POLICE DETENTION ATTENDANT NO [facility] Jun 21, 2019 02:29 PM VA-TOBACCO USE MED NO [place] [facility] Jun 21, 2019 02:29 PM VA-TOBACCO USE WI 30 MIN OF WAKEUP [facility] Jun 21, 2019 02:29 PM VA-TOBACCO USER EVERY DAY [facility] Jun 09, 2018 03:48 PM VA-TOBACCO USE 30 YEARS OR MORE [facility] Jun 09, 2018 03:48 PM VA-TOBACCO USE ADVICE [place] [facility] Jun 09, 2018 03:48 PM VA-TOBACCO USE POLICE DETENTION ATTENDANT NO [facility] Jun 09, 2018 03:48 PM VA-TOBACCO USE MED NO [place] [facility] Jun 09, 2018 03:48 PM VA-TOBACCO USE [place] 30 MIN OF WAKEUP [facility] Jun 09, 2018 03:48 PM VA-TOBACCO USER EVERY DAY [facility] Jun 20, 2017 07:53 AM [facility] Jun 19, 2016 08:41 AM CURRENT TOBACCO USER [facility] Jun 21, 2015 08:15 AM CURRENT TOBACCO USER [facility] Mar 22, 2014 10:03 AM CURRENT TOBACCO USER [facility] Mar 25, 2013 11:01 AM CURRENT TOBACCO USER [facility] Feb 05, 2012 08:55 AM CURRENT TOBACCO USER [facility] January 01, 2011 09:26 AM CURRENT TOBACCO USER [facility] Mar 07, 2010 10:02 AM CURRENT TOBACCO USER [facility] Feb 21, 2009 08:17 AM CURRENT TOBACCO USER [facility] Nov 06, 2007 10:02 AM CURRENT TOBACCO USER [facility] January 02, 2007 10:33 AM CURRENT [...] Mar 06, 2005 ADVANCE DIRECTIVE GANESH RODRIGUEZ [facility] Radiology Reports: +/- 30 days [...] the Encounter. The data comes from all NE treatment facilities. Date/Time Radiology Report Provider Source Nov 30, 2021 07:05 AM CHEST 2 VIEWS PA AND LAT: MONET LUDWIG [facility] PAUL MICHELE [id number] -[birth year] 9 M Exm Date: NOV 30, 2021@07:05 Req Phys: CHERRY MENDOZA Pat Loc: 3LSOB/ 2@08:05 Img Loc: MAIN X-RAY Service: zzcard sect (Case [id number] COMPLETE) CHEST 2 VIEWS PA AND LAT (R AD Detailed) CPT:09056 Reason for Study: s/p upgrade ICD adding [...] pager listed below: User placing orders pager: [phone] LAST CREATININE 1.4 H (11/29/21) Report Status: Verified Date Reported: NOV 30, 2021 Date Verified: NOV 30, 2021 Mica Builder E-Sig:/ES/MONET LUDWIG MD, FACR, C CD Report: [...] 2021 06:25 PM CHEST 1 VIEW: [facility] [place] [id number] -[birth year] M Exm Date: NOV 29, 2021@18:25 Req Phys: CHERRY MENDOZA Pat Loc: [facility] [address] [facility] (Req'g Loc) Img Loc: MAIN X-RAY Service: Unknown (Case [id number] COMPLETE) CHEST 1 VIEW (RAD Detailed) CPT:19168 Reason for Study: s/p upgrade ICD adding [...] pager listed below: User placing orders pager: [phone] LAST CREATININE 1.4 H (11/29/21) Report Status: Verified Date Reported: NOV 29, 2021 Date Verified: NOV 29, 2021 [employer] E-Sig:/ES/MAGDALENE DAVIDSON MD Report: DATE/TIME REGISTERED: 11/29/2021 [...] Primary Interpreting Staff: MAGDALENE DAVIDSON MD, RADIOLOGIST ([employer]) /LUAN Encounter Notes: All associated encounter notes This section contains the clinical notes associated to the Encounter. 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 New RA lead Exam/wound check: Wound on upper left chest from PPM placement on 11/30 looks WNL. No hematoma or bruising evident. Denies any c/o pain, f ever or s/s of infection. No reddness, swelling or drainage noted. Edges appear well approximated, as seen in between steristrips. Steristrips rem ain in place. States he has been compliant with arm restrictions. Education: Site care and arm restrictions reviewed. Clinic phone number given for additional questions/concerns. Plan: Patient to have device/wound check in 1 month - pending /billy/ SANDI BRADFORD RN REGISTERED NURSE Signed: 12/07/2021 15:43
--- OUTSIDE RECORDS SUMMARY | 2022-04-02 16:11 | XMS_ITS | Encounter Summary ---
:1945 Author Organization Department [facility] Address [address] [place] [address] Care Team Providers Name Role Phone SAKSHI [...] MEDICARE MEDICARE PART Jun 25, PART B [id number] Saumya QUINONES PATIENT (WNR) (M) B 2011 78A 0 AVID MEDICARE MEDICARE PART Sep 25, PART A [id number] Saumya QUINONES PATIENT (WNR) (M) A 2009 78A 0 AVID MEDICARE MEDICARE PART Sep 25, PART A [id number] Saumya MICHELE ATIENT (WNR) (M) A 2009 78A [id number] AVID MEDICARE MEDICARE PART Sep 25, PART B [id number] Saumya MICHELE ATIENT (WNR) (M) B 2009 78A [phone] AVID Selected Encounter This section includes the information on record at [place] for the Encounter. Date/Time Encounter Type Encounter Reason Provider Source Description Dec 01, 2021 01:00 Outpatient ADMIN PAT ACTIVTIES SYSTEM,C IS-RICHARDK AM Encounter (MASNONCT) IHE Encounter Template Text not used by MI Plan of Treatment: Future Appointments (+ 6 months) and Future Tests (+/- 45 days) The Plan of Treatment section includes future care activities for the patient from [facility]. This section includes future appointments and future orders which are active, pending orscheduled.Future Appointments This section includes appointments that were scheduled to occur 6 months from the date of the Encounter, up to a maximum of 20 appointments. The data comes from all [facility]. Appointment Date/Time Appointment Type Appointment Facili ty Name Dec 21, 2021 09:30 AM AMBULATORY - NONE [facility] January 07, 2022 01:30 PM AMBULATORY - MEDICINE [facility] Feb 05, 2022 07:00 AM AMBULATORY [facility] Feb 07, 2022 09:30 AM AMBULATORY - NONE [facility] Feb 13, 2022 10:00 AM AMBULATORY [facility] Mar 21, 2022 09:30 AM AMBULATORY [facility] Active, Pending, and Scheduled Orders [...] AM Laboratory - Chemistry BASIC METABOLIC MIN [facility] Order PANEL+MG PLASMA SP Lab Results: +/- 30 days of the encounter This section includes the Chemistry and Hematology Lab Results on record with MI for the patient. Radiology Reports and Pathology Reports are provided separately, in subsequent sections.Lab Results This section contains the Chemistry/Hematology Results that were resulted 30 days before or 30 daysafter the date of the Encounter. Date/Time Source Result Type Result - Unit Interpretation Reference Range Comment Nov 30, 2021 11:26 [facility] FINGERSTICK GLUCOSE Speci men Type: BLOOD AM Comment: [place] Nurse Notified Ordering Provid er: TEAM,CARDS TWO Report Released Date/Time: Nov 30, 2021 11:46 AM Reporting Lab: [facility] [address] Performing Lab: [facility] [address] FINGERSTICK GLUCOSE 284 mg/dL H 70-100 Nov 30, 2021 09:47 AM [facility] ALBUMIN Specim en Type: PLASMA No comment enter ed. Ordering Provid er: ELIUD DINERO Report Released Date/Time: Nov 29, 2021 07:53 PM Reporting Lab: [facility] [address] Performing Lab: [facility] [address] ALBUMIN 3.4 g/dL L 3.5-5.2 Nov 30, 2021 09:47 [facility] BASIC METABOLIC Specimen Type: PLASMA AM PANEL+MG No comment enter ed. Ordering Provid er: ANGIE MALHOTRA Report Released Date/Time: Nov 29, 2021 08:12 PM Reporting Lab: [facility] [address] Performing Lab: [facility] [address] CREATININE 1.2 mg/dL 0.7-1.2 UREA NITROGEN 18 mg/dL 8-26 GLUCOSE 342 mg/dL H 74-100 SODIUM 141 mmol/L 136-145 POTASSIUM 4.3 mmol/L 3.5-5.1 CHLORIDE 108 mmol/L H 98-107 CO2 26 mmol/L 22-29 CALCIUM 8.6 mg/dL 8.4-10.2 MAGNESIUM 1.5 mg/dL L 1.6-2.6 ANION GAP 7 mmol/L 5-15 CREAT EGFR(CKD-EPI) 63 >60 Nov 30, 2021 09:46 AM [facility] CBC Specim en Type: BLOOD No comment enter ed. Ordering Provid er: ANGIE MALHOTRA Report Released Date/Time: Nov 29, 2021 08:12 PM Reporting Lab: [facility] [address] Performing Lab: [facility] [address] [facility] [address] WBC 10.61 10*3/uL 4.0-11.0 RBC 4.33 10*6/uL L 4.6-6.2 HGB 14.6 g/dL 13.5-17.9 HCT 45.2 41-54 MCV 104.4 fL H 80-100 MCH 33.7 pg H 27-33 MCHC 32.3 g/dL 32.0-37.5 PLT 71 10*3/uL L 150-400 MPV 13.9 fL H 7.4-10.4 RDW 14.7 H 11.5-14.5 IPF 17.8 H 0-10 Nov 30, 2021 06:09 [facility] FINGERSTICK GLUCOSE Speci men Type: BLOOD AM Comment: [place] Nurse Notified Ordering Provid er: TEAM,CARDS TWO Report Released Date/Time: Nov 30, 2021 06:32 AM Reporting Lab: [facility] [address] [facility] [address] Performing Lab: [facility] [address] [facility] [address] FINGERSTICK GLUCOSE 165 mg/dL H 70-100 Nov 29, 2021 07:35 [facility] FINGERSTICK GLUCOSE Speci men Type: BLOOD PM Comment: [place] Nurse Notified Ordering Provid er: GRANTCARDS TWO Report Released Date/Time: Nov 29, 2021 07:48 PM Reporting Lab: [facility] [address] [facility] [address] Performing Lab: [facility] [address] [facility] [address] FINGERSTICK GLUCOSE 160 mg/dL H 70-100 Nov 29, 2021 06:52 [facility] FINGERSTICK GLUCOSE Speci men Type: BLOOD PM Comment: [place] Nurse Notified Ordering Provid er: SAKSHI CROUCH Report Released Date/Time: Nov 29, 2021 07:04 PM Reporting Lab: [facility] [address] [facility] [address] Performing Lab: [facility] [address] [facility] [address] FINGERSTICK GLUCOSE 161 mg/dL H 70-100 Nov 29, 2021 04:18 [facility] FINGERSTICK GLUCOSE Speci men Type: BLOOD PM No comment enter ed. Ordering Provid er: GRANTCARDS TWO Report Released Date/Time: Nov 29, 2021 08:08 PM Reporting Lab: [facility] [address] [facility] [address] Performing Lab: [facility] [address] [facility] [address] FINGERSTICK GLUCOSE 179 mg/dL H 70-100 Nov 29, 2021 03:26 [facility] POC ABG/ELECTROLYTES Spec imen Type: ARTERIAL BLOOD PM Comment: Sample Type = ARTERIAL Ordering Provid er: TEAMCARDS TWO Report Released Date/Time: Nov 29, 2021 07:53 PM Reporting Lab: [facility] [address] Performing Lab: [facility] [address] POC PH 7.321 L 7.35-7.45 POC PCO2 [...] mg/dL L 4.50-5.30 Nov 29, 2021 03:24 [facility] FINGERSTICK GLUCOSE Speci men Type: BLOOD PM Comment: Save R esult Ordering Provid er: IRENE BURNS Report Released Date/Time: Nov 29, 2021 08:08 PM Reporting Lab: [facility] [address] Performing Lab: [facility] [address] FINGERSTICK GLUCOSE 188 mg/dL H 70-100 Nov 29, 2021 02:06 [facility] POC ABG/ELECTROLYTES Spec imen Type: ARTERIAL BLOOD PM Comment: Sample Type = ARTERIAL Ordering Provid er: IRENE BURNS Report Released Date/Time: Nov 29, 2021 07:53 PM Reporting Lab: [facility] [address] Performing Lab: [facility] [address] POC PH 7.313 L 7.35-7.45 POC PCO2 [...] mg/dL L 4.50-5.30 Nov 29, 2021 02:04 [facility] FINGERSTICK GLUCOSE Speci men Type: BLOOD PM Comment: Save R esult Ordering Provid er: IRENE BURNS Report Released Date/Time: Nov 29, 2021 08:08 PM Reporting Lab: [facility] [address] [facility] [address] Performing Lab: [facility] [address] [facility] [address] FINGERSTICK GLUCOSE 236 mg/dL H 70-100 Nov 29, 2021 01:52 PM [facility] POC ACT Specim en Type: BLOOD No comment enter ed. Ordering Provid er: IRENE BURNS Report Released Date/Time: Dec 03, 2021 01:31 PM Reporting Lab: [facility] [address] [facility] [address] Performing Lab: [facility] [address] [facility] [address] POC ACT 135 s 84-139 Nov 29, 2021 01:16 PM [facility] POC ACT Specim en Type: BLOOD No comment enter ed. Ordering Provid er: IRENE BURNS Report Released Date/Time: Dec 03, 2021 01:30 PM Reporting Lab: [facility] [address] [address] Performing Lab: [facility] [address] [facility] [address] POC ACT 355 s 84-139 Nov 29, 2021 12:49 PM [facility] POC ACT Specim en Type: BLOOD No comment enter ed. Ordering Provid er: IRENE BUNRS Report Released Date/Time: Dec 03, 2021 01:30 PM Reporting Lab: [facility] [address] [facility] [address] Performing Lab: [facility] [address] [facility] [address] POC ACT 367 s 84-139 Nov 29, 2021 12:48 [facility] POC ABG/ELECTROLYTES Spec imen Type: ARTERIAL BLOOD PM Comment: Sample Type = ARTERIAL Ordering Provid er: IRENE BURNS Report Released Date/Time: Nov 29, 2021 07:53 PM Reporting Lab: [facility] [address] [facility] [address] Performing Lab: [facility] [address] POC PH 7.289 L 7.35-7.45 POC PCO2 [...] 4.7 mg/dL 4.50-5.30 Nov 29, 2021 12:45 [facility] FINGERSTICK GLUCOSE Speci men Type: BLOOD PM Comment: [place] Ordering Provid er: IRENE BURNS TWO Report Released Date/Time: Nov 29, 2021 08:08 PM Reporting [facility] [address] Performing Lab: [facility] [address] FINGERSTICK GLUCOSE 186 mg/dL H 70-100 Nov 29, 2021 12:26 PM [facility] POC ACT Specim en Type: BLOOD No comment enter ed. Ordering Provid er: IRENE BURNS Report Released Date/Time: Dec 03, 2021 01:30 PM Reporting Lab: [facility] [address] Performing Lab: [facility] [address] POC ACT 367 s 84-139 Nov 29, 2021 11:58 AM [facility] POC ACT Specim en Type: BLOOD No comment enter ed. Ordering Provid er: IRENE BURNS Report Released Date/Time: Dec 03, 2021 01:30 PM Reporting Lab: [facility] [address] Performing Lab: [facility] [address] POC ACT 338 s 84-139 Nov 29, 2021 11:53 [facility] FINGERSTICK GLUCOSE Speci men Type: BLOOD AM Comment: Save R esult Ordering Provid er: IRENE BURNS TWO Report Released Date/Time: Nov 29, 2021 08:08 PM Reporting Lab: [facility] [address] Performing Lab: [facility] [address] FINGERSTICK GLUCOSE 225 mg/dL H 70-100 Nov 29, 2021 11:30 AM [facility] POC ACT Specim en Type: BLOOD No comment enter ed. Ordering Provid er: IRENE BURNS TWO Report Released Date/Time: Dec 03, 2021 01:30 PM Reporting Lab: [facility] [address] Performing Lab: [facility] [address] POC ACT 355 s 84-139 Nov 29, 2021 11:26 [facility] POC ABG/ELECTROLYTES Spec imen Type: ARTERIAL BLOOD AM Comment: Sample Type = ARTERIAL Ordering Provid er: IRENE BURNS TWO Report Released Date/Time: Nov 29, 2021 07:53 PM Reporting Lab: [facility] [address] Performing Lab: [facility] [address] POC PH 7.317 L 7.35-7.45 POC PCO2 [...] 4.8 mg/dL 4.50-5.30 Nov 29, 2021 11:06 [facility] FINGERSTICK GLUCOSE Speci men Type: BLOOD AM No comment enter ed. Ordering Provid er: IRENE BURNS TWO Report Released Date/Time: Nov 29, 2021 08:08 PM Reporting Lab: [facility] [address] Performing Lab: [place] [address] FINGERSTICK GLUCOSE 221 mg/dL H 70-100 Nov 29, 2021 11:02 AM [facility] POC ACT Specim en Type: BLOOD No comment enter ed. Ordering Provid er: IRENE BURNS Report Released Date/Time: Dec 03, 2021 01:30 PM Reporting Lab: [facility] [address] [facility] [address] Performing Lab: [facility] [address] [address] POC ACT 294 s 84-139 Nov 29, 2021 10:26 AM [facility] POC ACT Specim en Type: BLOOD No comment enter ed. Ordering Provid er: IRENE BURNS Report Released Date/Time: Dec 03, 2021 01:30 PM Reporting Lab: [facility] [address] Performing Lab: [facility] [address] POC ACT 329 s 84-139 Nov 29, 2021 10:06 AM [facility] POC ACT Specim en Type: BLOOD No comment enter ed. Ordering Provid er: IRENE BURNS Report Released Date/Time: Dec 03, 2021 01:30 PM Reporting Lab: [facility] [address] [facility] [address] Performing Lab: [facility] [address] [facility] [facility] [address] POC ACT 312 s 84-139 Nov 29, 2021 09:58 [facility] POC ABG/ELECTROLYTES Spec imen Type: ARTERIAL BLOOD AM Comment: Sample Type = ARTERIAL Ordering Provid er: IRENE BURNS Report Released Date/Time: Nov 29, 2021 07:53 PM Reporting Lab: [facility] [address] [facility] [address] Performing Lab: [facility] [address] POC PH 7.334 L 7.35-7.45 POC PCO2 [...] 4.9 mg/dL 4.50-5.30 Nov 29, 2021 09:56 [facility] FINGERSTICK GLUCOSE Speci men Type: BLOOD AM No comment enter ed. Ordering Provid er: IRENE BURNS Report Released Date/Time: Nov 29, 2021 08:08 PM Reporting Lab: [facility] [address] Performing Lab: [facility] [address] FINGERSTICK GLUCOSE 194 mg/dL H 70-100 Nov 29, 2021 09:45 AM [facility] POC ACT Specim en Type: BLOOD No comment enter ed. Ordering Provid er: IRENE BURNS Report Released Date/Time: Dec 03, 2021 01:30 PM Reporting Lab: [facility] [address] Performing Lab: [facility] [address] POC ACT 269 s 84-139 Nov 29, 2021 08:59 AM [facility] POC ACT Specim en Type: BLOOD No comment enter ed. Ordering Provid er: IRENE BURNS Report Released Date/Time: Dec 03, 2021 01:30 PM Reporting Lab: [facility] [address] Performing Lab: [facility] [address] POC ACT 135 s 84-139 Nov 29, 2021 [facility] COVID-19 AND FLU/RSV Specime n Type: NASOPHARYNGEAL 07:05 AM DIAG PANEL(CEPHEID) Comment: Ce pheid GeneXpert (618) Ordering Provid er: KATHERINE FIGUEROA Report Released Date/Time: Oct 29, 2021 12:22 PM Reporting Lab: [facility] [address] Performing Lab: [facility] [address] COVID-19 (CEPHEID) Not Detected Not Dete cted INFLUENZA A (PCR) Not Detected Not Detec susanne INFLUENZA B (PCR) Not Detected Not Detec susanne RSV (PCR) Not Detected Not Detected Nov 29, 2021 [facility] BASIC METABOLIC Specimen Typ e: PLASMA 06:38 AM PANEL+MG No comment enter ed. Ordering Provid er: AKTHERINE FIGUEROA Report Released Date/Time: Oct 29, 2021 12:22 PM Reporting Lab: [facility] [address] Performing Lab: [facility] [address] CREATININE 1.4 mg/dL H 0.7-1.2 UREA NITROGEN 23 mg/dL 8-26 GLUCOSE 201 mg/dL H 74-100 SODIUM 143 mmol/L 136-145 POTASSIUM 4.3 mmol/L 3.5-5.1 CHLORIDE 108 mmol/L H 98-107 CO2 28 mmol/L 22-29 CALCIUM 9.9 mg/dL 8.4-10.2 MAGNESIUM 1.9 mg/dL 1.6-2.6 ANION GAP 7 mmol/L 5-15 CREAT EGFR(CKD-EPI) 53 L >60 Nov 29, 2021 06:38 [facility] CBC Specimen Type: BLOOD AM No comment enter ed. Ordering Provid er: KATHERINE FIGUEROA Report Released Date/Time: Oct 29, 2021 12:22 PM Reporting Lab: [facility] [address] Performing Lab: [facility] [address] WBC 7.40 10*3/uL 4.0-11.0 RBC 5.17 10*6/uL 4.6-6.2 HGB 17.6 g/dL 13.5-17.9 HCT 52.7 41-54 MCV 101.9 fL H 80-100 MCH 34.0 pg H 27-33 MCHC 33.4 g/dL 32.0-37.5 PLT 88 10*3/uL L 150-400 MPV 14.3 fL H 7.4-10.4 RDW 14.4 11.5-14.5 IPF 18.0 H 0-10 Nov 29, 2021 [facility] PROTHROMBIN Specimen Typ e: PLASMA 06:38 AM TIME/INR No comment enter ed. Ordering Provid er: KATHERINE FIGUEROA Report Released Date/Time: Oct 29, 2021 12:22 PM Reporting Lab: [facility] [address] [facility] [address] Performing Lab: [facility] [address] [facility] [address] .INR 1.1 0.8-1.1 .PT 13.1 s H 9.4-12.5 Nov 29, 2021 [facility] ACT PART Specimen Ty pe: PLASMA 06:38 AM THROMBO TIME No comment enter ed. Ordering Provid er: KATHERINE FIGUEROA Report Released Date/Time: Oct 29, 2021 12:22 PM Reporting Lab: [facility] [address] [facility] [address] Performing Lab: [facility] [address] [facility] [address] APTT 33.3 s 25.1-36.5 Social History: Smoking Status (Most current) and Tobacco Use (All prior to encounter date) This section includes the most current, and the historical, smoking and tobacco-related health factors from the [place] facility where the Encounter took place.Current Smoking Status This section includes the most current smoking, or tobacco-related health factor, from the [place] facility where the Encounter took place. Date/Time Current Smoking Status Comment Facility Nov 29, 2021 08:36 PM [facility] TOBACCO USE CURRENT NRT [facility] ACCEPT Tobacco Use History This section includes a history of the smoking, or tobacco- related health factors, that were collected on or before the date of the Encounter. The data comes from the [place] facility where the Encounter took place. 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 [facility] Nov 15, 2020 10:00 AM VA-TOBACCO USE MED NO [place] [facility] Nov 15, 2020 10:00 AM VA-TOBACCO USER EVERY DAY [facility] Jun 21, 2019 02:29 PM VA-TOBACCO USE 30 YEARS OR MORE [facility] Jun 21, 2019 02:29 PM VA-TOBACCO USE [facility]ICE [facility] Jun 21, 2019 02:29 PM 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 [facility] Jun 21, 2019 02:29 PM VA-TOBACCO USE MED NO [place] [facility] Jun 21, 2019 02:29 PM VA-TOBACCO USE WI 30 MIN OF WAKEUP [facility] Jun 21, 2019 02:29 PM VA-TOBACCO USER EVERY DAY [facility] Jun 09, 2018 03:48 PM VA-TOBACCO USE 30 YEARS OR MORE [facility] Jun 09, 2018 03:48 PM VA-TOBACCO USE ADVICE [facility] Jun 09, 2018 03:48 PM 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 Mar 25, 2013 11:01 AM CURRENT TOBACCO USER [facility] Feb 05, 2012 08:55 AM CURRENT TOBACCO USER [facility] January 01, 2011 09:26 AM CURRENT TOBACCO USER [facility] Mar 07, 2010 10:02 AM CURRENT TOBACCO USER [facility] Feb 21, 2009 08:17 AM CURRENT TOBACCO USER [facility] Nov 06, 2007 10:02 AM CURRENT TOBACCO USER [facility] January 02, 2007 10:33 AM CURRENT TOBACCO USER [facility] Advance Directives: All historical and current Section Date Range: From patient's date of to the date document was created. This section includes ALL of a patient's completed or amended [place] Advance and Rescinded Directives. The entries below indicate that a directive exists for the patient, but an actual copy is not included with this document. The data comes from all [place] facilities. Date Advance Directives Provider Source Mar 06, 2005 ADVANCE DIRECTIVE [facility]EL[facility] Radiology Reports: +/- 30 [...] the Encounter. The data comes from all [place] treatment facilities. Date/Time Radiology Report Provider Source Nov 30, 2021 07:05 AM CHEST 2 VIEWS PA AND LAT: MONET LUDWIG [facility] [id number] -[birth year] M Exm Date: NOV 30, 2021@07:05 Req Phys: CHERRY MENDOZA Loc: 3LSOB/ 2@08:05 Img Loc: MAIN X-RAY Service: zzcard sect (Case [id number] COMPLETE) CHEST 2 VIEWS PA AND LAT (R AD Detailed) CPT:43270 Reason for Study: s/p upgrade ICD adding an A l ead Clinical History: Post ICD or Pacemaker: Verify Lead Placement. Rozet IS NOT under investigation for COVID-19 or is COVID-19 negative s/p upgrade ICD adding an A lead Responsible pr ovider name and phone number to notify for critical findings if other than user placing the order and pager listed below: User placing orders pager: [phone] LAST CREATININE 1.4 H (11/29/21) Report Status: Verified Date Reported: NOV 30, 2021 Date Verified: NOV 30, 2021 Economics Department Chair E-Sig:/ES/MONET LUDWIG MD, FACR, C CD Report: [...] PM CHEST 1 VIEW: MAGDALENE DAVIDSON [facility] [id number] -[birth year] M Exm Date: NOV 29, 2021@18:25 Req Phys: CHERRY MENDOZA Pat Loc: [facility] [address] AY (Req'g Loc) Img Loc: MAIN X-RAY Service: Unknown (Case [id number] COMPLETE) CHEST 1 VIEW (RAD Detailed) CPT:69396 Reason for Study: s/p upgrade ICD adding an A l ead Clinical History: Immediate Post-Op Pacemaker/ICD placement Rozet IS NOT under investigation for COVID-19 or is COVID-19 negative s/p upgrade his ICD to dual chamber (adding an A lead) Responsible provider name and phone number to n otify for critical findings if other than user placing the order a nd pager listed below: User placing orders pager: [phone] LAST CREATININE 1.4 H (11/29/21) Report Status: Verified Date Reported: NOV 29, 2021 Date Verified: NOV 29, 2021 Economics Department Chair E-Sig:/ES/MAGDALENE DAVIDSON MD Report: DATE/TIME REGISTERED: 11/29/2021 [...] Primary Interpreting Staff: MAGDALENE DAVIDSON MD, RADIOLOGIST (Economics Department Chair) /LUAN Encounter Notes: All associated encounter notes This section contains the clinical notes associated to the Encounter. Date/Time Encounter Note(s) Provider Source Dec 01, 2021 01:00 AM CRITICAL CARE UNIT NOTE: [facility]ENCIO [facility] LOCAL TITLE: ICCA INPATIENT FLOWSHEET STANDARD TITLE: CRITICAL CARE UNIT NOTE DATE OF NOTE: DEC 01, 2021@01:00 ENTRY DATE: DEC 02, 2021@14:35:35 AUTHOR: FLORENCIO RIOS EXP COSIGNER: URGENCY: STATUS: COMPLETED This is a place pyle only. Please see VISTA Im aging to view document. /es/ FLORENCIO SYSTEM ICU DOCUMENT IMPORT Signed: 12/02/2021 14:35
--- OUTSIDE RECORDS SUMMARY | 2022-04-02 16:11 | XMS_ITS ---
DAILY HOSPITALIZATION DATA [facility] Encounter Summary Created on:November 30, 2021 Patient:PAUL MICHELE Sex:Male :1945 Author Organization Department [facility] Address [address] [place] [id number] Care Team Providers Name Role Phone WILLA [...] MEDICARE MEDICARE PART Jun 25, PART B [id number] Saumya QUINOENS PATIENT (WNR) (M) B 2011 78A 0 AVID MEDICARE MEDICARE PART Sep 25, PART A [id number] Saumya QUINONES PATIENT (WNR) (M) A 2009 78A 0 AVID MEDICARE MEDICARE PART Sep 25, PART A [id number] Saumya MICHELE (WNR) (M) A 2009 78A [id number] AVID MEDICARE MEDICARE PART Sep 25, PART B [id number] Saumya MICHELE (WNR) (M) B 2009 78A [id number] AVID Selected Encounter This section includes the information on record at [place] for the Encounter. Date/Time Encounter Type Encounter Description Reason Provider Source Nov 30, 2021 12:14 Inpatient Visit DAILY HOSPITALIZATION DATA AM [facility] Encounter Template Text not used by CO Plan of Treatment: Future Appointments (+ 6 months) and Future Tests (+/- 45 days) The Plan of Treatment section includes future care activities for the patient from all [facility]. This section includes future appointments and future orders which are active, pending orscheduled.Future Appointments This section includes appointments that were scheduled to occur 6 months from the date of the Encounter, up to a maximum of 20 appointments. The data comes from all [facility]. Appointment Date/Time Appointment Type Appointment Facili ty Name Dec 21, 2021 09:30 AM AMBULATORY - NONE [facility] January 07, 2022 01:30 PM AMBULATORY - MEDICINE [facility] Feb 05, 2022 07:00 AM [facility]ATORY - [facility] Feb 07, 2022 09:30 AM AMBULATORY - NONE [facility] Feb 13, 2022 10:00 AM AMBULATORY [facility] Mar 21, 2022 09:30 AM AMBULATORY [facility] Active, Pending, and Scheduled Orders This section includes a listing of several types of active, pending, and scheduled orders, including clinic medications orders, diagnostic test orders, procedure orders and consult orders; where the start date of the order is 45 days before the date of the Encounter or 45 days after the date of the Encounter. The data comes from all [facility]. Test Date/Time Test Type Test Details Facility Name Nov 29, 2021 06:30 AM Laboratory - Blood Bank TYPE & SCREEN - LA B [facility] Order BLOOD SP Dec 15, 2021 12:00 AM Laboratory - Chemistry BASIC METABOLIC MIN [facility] Order PANEL+MG PLASMA SP [...] Speci men Type: BLOOD AM Comment: Abram rokc Nurse Notified Ordering Provid er: TEAM,CARDS TWO Report Released Date/Time: Nov 30, 2021 11:46 AM Reporting Lab: [facility] [address] [facility] [address] Performing Lab: [facility] ONE [facility] I [address] [facility] [address] FINGERSTICK GLUCOSE 284 mg/dL H 70-100 Nov 30, 2021 09:47 AM [facility] ALBUMIN Specim en Type: PLASMA No comment enter ed. Ordering Provid er: ELIUD DINERO Report Released Date/Time: Nov 29, 2021 07:53 PM Reporting Lab: [facility] [address] [facility] [address] Performing Lab: [facility] [address] [facility] [address] ALBUMIN 3.4 g/dL L 3.5-5.2 Nov 30, 2021 09:47 [facility] BASIC METABOLIC Specimen Type: PLASMA AM PANEL+MG No comment enter ed. Ordering Provid er: ANGIE MALHOTRA Report Released Date/Time: Nov 29, 2021 08:12 PM Reporting Lab: [facility] [address] [facility] [address] Performing Lab: [facility] [address] [facility] [address] CREATININE 1.2 mg/dL 0.7-1.2 UREA NITROGEN 18 [...] Lab: [facility] [address] [facility] [address] Performing Lab: [facility] [address] [facility] [address] WBC 10.61 10*3/uL 4.0-11.0 RBC 4.33 10*6/uL [...] [facility] [address] [facility] [address] Performing Lab: [facility] [address] [facility] [address] FINGERSTICK GLUCOSE 165 mg/dL H 70-100 Nov 29, 2021 07:35 [facility] FINGERSTICK GLUCOSE Speci men Type: BLOOD PM Comment: [place]am rock Nurse Notified Ordering Provid er: IRENE BURNS TWO Report Released Date/Time: Nov 29, 2021 07:48 PM Reporting Lab: [facility] [address] [facility] [address] Performing Lab: [facility] [address] [facility] [address] FINGERSTICK GLUCOSE 160 mg/dL H 70-100 Nov 29, 2021 06:52 [facility] FINGERSTICK GLUCOSE Speci men Type: BLOOD PM Comment: [place]am rock Nurse Notified Ordering Provid er: SAKSHI CROUCH Report Released Date/Time: Nov 29, 2021 07:04 PM Reporting Lab: [facility] [address] [facility] [address] Performing Lab: [facility] [address] [facility] [address] FINGERSTICK GLUCOSE 161 mg/dL H 70-100 Nov 29, 2021 04:18 [facility] FINGERSTICK GLUCOSE Speci men Type: BLOOD PM No comment enter ed. Ordering Provid er: IRENE BURNS TWO Report Released Date/Time: Nov 29, 2021 08:08 PM Reporting Lab: [facility] [address] [facility] [address] Performing Lab: [facility] [address] [facility] [address] FINGERSTICK GLUCOSE 179 mg/dL H 70-100 Nov 29, 2021 03:26 [facility] POC ABG/ELECTROLYTES Spec imen Type: ARTERIAL BLOOD PM Comment: Sample Type = ARTERIAL Ordering Provid er: IRENE BURNS TWO Report Released Date/Time: Nov 29, 2021 07:53 PM Reporting Lab: [facility] [address] Performing Lab: [facility] [address] POC PH 7.321 L 7.35-7.45 POC PCO2 [...] Nov 29, 2021 08:08 PM Reporting Lab: [facility] [address] Performing Lab: [facility] [address] FINGERSTICK GLUCOSE 188 mg/dL H 70-100 Nov 29, 2021 02:06 [facility] POC ABG/ELECTROLYTES Spec imen Type: ARTERIAL BLOOD PM Comment: Sample Type = ARTERIAL Ordering Provid er: TEAM,CARDS TWO Report Released Date/Time: Nov 29, 2021 07:53 PM Reporting Lab: [facility] [address] Performing Lab: [facility] [address] POC PH 7.313 L 7.35-7.45 POC PCO2 [...] [facility] [address] [facility] [address] Performing Lab: [facility] [address] [facility] [address] FINGERSTICK GLUCOSE 236 mg/dL H 70-100 Nov 29, 2021 01:52 PM [facility] POC ACT Specim en Type: BLOOD No comment enter ed. Ordering Provid er: IRENE BURNS Report Released Date/Time: Dec 03, 2021 01:31 PM Reporting Lab: [facility] [address] [facility] [address] Performing Lab: [facility] [address] [facility] [address] POC ACT 135 s 84-139 Nov 29, 2021 01:16 PM [facility] POC ACT Specim en Type: BLOOD No comment enter ed. Ordering Provid er: IRENE BURNS Report Released Date/Time: Dec 03, 2021 01:30 PM Reporting Lab: [facility] [address] [facility] [address] Performing Lab: [facility] [address] [facility] [address] POC ACT 355 s 84-139 Nov 29, 2021 12:49 PM [facility] POC ACT Specim en Type: BLOOD No comment enter ed. Ordering Provid er: IRENE BURNS Report Released Date/Time: Dec 03, 2021 01:30 PM Reporting Lab: [facility] [address] [facility] [address] Performing Lab: [facility] [address] [facility] [address] POC ACT 367 s 84-139 Nov 29, 2021 12:48 [facility] POC ABG/ELECTROLYTES Spec imen Type: ARTERIAL BLOOD PM Comment: Sample Type = ARTERIAL Ordering Provid er: IRENE BURNS Report Released Date/Time: Nov 29, 2021 07:53 PM Reporting Lab: [facility] [address] [facility] [address] Performing Lab: [facility] [address] [facility] [address] POC PH 7.289 L 7.35-7.45 POC PCO2 [...] Nov 29, 2021 08:08 PM Reporting Lab: [facility] [address] Performing Lab: [facility] [address] FINGERSTICK GLUCOSE 186 mg/dL H 70-100 Nov 29, 2021 12:26 PM [facility] POC ACT Specim en Type: BLOOD No comment enter ed. Ordering Provid er: IRENE BURNS TWO Report Released Date/Time: Dec 03, 2021 01:30 PM Reporting Lab: [facility] [address] [facility] [address] Performing Lab: [facility] [address] [facility] [address] POC ACT 367 s 84-139 Nov 29, 2021 11:58 AM [facility] POC ACT Specim en Type: BLOOD No comment enter ed. Ordering Provid er: IRENE BURNS TWO Report Released Date/Time: Dec 03, 2021 01:30 PM Reporting Lab: [facility] [address] [facility] [address] Performing Lab: [facility] [address] [facility] [address] POC ACT 338 s 84-139 Nov 29, 2021 11:53 [facility] FINGERSTICK GLUCOSE Speci men Type: BLOOD AM Comment: Save R esult Ordering Provid er: IRENE BURNS TWO Report Released Date/Time: Nov 29, 2021 08:08 PM Reporting Lab: [facility] [address] [facility] [address] Performing Lab: [facility] [address] [facility] [address] FINGERSTICK GLUCOSE 225 mg/dL H 70-100 Nov 29, 2021 11:30 AM [facility] POC ACT Specim en Type: BLOOD No comment enter ed. Ordering Provid er: GRANTCARDS TWO Report Released Date/Time: Dec 03, 2021 01:30 PM Reporting Lab: [facility] [address] Performing Lab: [facility] [address] [facility] [address] POC ACT 355 s 84-139 Nov 29, 2021 11:26 [facility] POC ABG/ELECTROLYTES Spec imen Type: ARTERIAL BLOOD AM Comment: Sample Type = ARTERIAL Ordering Provid er: IRENE BURNS TWO Report Released Date/Time: Nov 29, 2021 07:53 PM Reporting Lab: [facility] [address] [facility] [address] Performing Lab: [facility] [address] POC PH 7.317 L 7.35-7.45 POC PCO2 [...] PM Reporting Lab: [facility] [address] [facility] [address] Performing Lab: [facility] [address] FINGERSTICK GLUCOSE 221 mg/dL H 70-100 Nov 29, 2021 11:02 AM [facility] POC ACT Specim en Type: BLOOD No comment enter ed. Ordering Provid er: IRENE BURNS Report Released Date/Time: Dec 03, 2021 01:30 PM Reporting Lab: [facility] [address] [facility] [address] Performing Lab: [facility] [address] [facility] [address] POC ACT 294 s 84-139 Nov 29, 2021 10:26 AM [facility] POC ACT Specim en Type: BLOOD No comment enter ed. Ordering Provid er: IRENE BURNS Report Released Date/Time: Dec 03, 2021 01:30 PM Reporting Lab: [facility] [address] [facility] [address] Performing Lab: [facility] [address] [facility] [address] POC ACT 329 s 84-139 Nov 29, 2021 10:06 AM [facility] POC ACT Specim en Type: BLOOD No comment enter ed. Ordering Provid er: IRENE BURNS Report Released Date/Time: Dec 03, 2021 01:30 PM Reporting Lab: [facility] [address] [facility] [address] Performing Lab: [facility] [address] [facility] [address] POC ACT 312 s 84-139 Nov 29, 2021 09:58 [facility] POC ABG/ELECTROLYTES Spec imen Type: ARTERIAL BLOOD AM Comment: Sample Type = ARTERIAL Ordering Provid er: IRENE BURNS Report Released Date/Time: Nov 29, 2021 07:53 PM Reporting Lab: [facility] [address] [facility] [address] Performing Lab: [facility] [address] [facility] [address] POC PH 7.334 L 7.35-7.45 POC PCO2 [...] Lab: [facility] [address] [facility] [address] Performing Lab: [facility] [address] [facility] [address] FINGERSTICK GLUCOSE 194 mg/dL H 70-100 Nov 29, 2021 09:45 AM [facility] POC ACT Specim en Type: BLOOD No comment enter ed. Ordering Provid er: IRENE BURNS Report Released Date/Time: Dec 03, 2021 01:30 PM Reporting Lab: [facility] [address] [facility] [address] Performing Lab: [facility] [address] [facility] [address] POC ACT 269 s 84-139 Nov 29, 2021 08:59 AM [facility] POC ACT Specim en Type: BLOOD No comment enter ed. Ordering Provid er: IRENE BURNS TWO Report Released Date/Time: Dec 03, 2021 01:30 PM Reporting Lab: [facility] [address] [facility] [address] Performing Lab: [facility] [address] [facility] [address] POC ACT 135 s 84-139 Nov 29, 2021 [facility] COVID-19 AND FLU/RSV Specime n Type: NASOPHARYNGEAL 07:05 AM DIAG PANEL(CEPHEID) Comment: Ce pheid GeneXpert (618) Ordering Provid er: KATHERINE FIGUEROA Report Released Date/Time: Oct 29, 2021 12:22 PM Reporting Lab: [facility] [address] [facility] [address] Performing Lab: [facility] [address] [facility] [address] COVID-19 (CEPHEID) Not Detected Not Dete cted [...] Lab: [facility] [address] [facility] [address] Performing Lab: [facility] [address] [facility] [address] CREATININE 1.4 mg/dL H 0.7-1.2 UREA NITROGEN [...] Reporting Lab: [facility] [address] [facility] [address] Performing Lab: [facility] [address] WBC 7.40 10*3/uL 4.0-11.0 RBC 5.17 10*6/uL [...] Oct 29, 2021 12:22 PM Reporting Lab: [facility] [address] Performing Lab: [facility] [address] [place] [facility] [address] .INR 1.1 0.8-1.1 .PT 13.1 s H 9.4-12.5 Nov 29, 2021 [facility] ACT PART Specimen Typ e: PLASMA 06:38 AM THROMBO TIME No comment enter ed. Ordering Provid er: KATHERINE FIGUEROA Report Released Date/Time: Oct 29, 2021 12:22 PM Reporting Lab: [facility] [address] [place] [facility] [address] Performing Lab: [facility] [address] [place] [facility] [address] APTT 33.3 s 25.1-36.5 Vital Signs: All taken on the encounter date This section contains inpatient and outpatient Vital Signs collected on the date of the Encounter. Date/Time Temperature Pulse Blood Respiratory SP02 Pain Height Weight Axel dy Source Pressure Rate Mass Index Nov 30 104/72 18 /min 92 % [place] 2021 10:19 /min mm[Hg] [facility] Nov 30, 99.0 F 92 102/69 18 /min 90 % 0 [place] 2021 07:53 /min mm[Hg] [facility] Nov 30, 88 98/65 16 /min 88 % [place] 2021 03:56 /min mm[Hg] [facility] Social History: Smoking Status (Most [...] Comment Facility Nov 29, 2021 08:36 PM [facility] TOBACCO USE CURRENT NRT [facility] ACCEPT Tobacco Use History This section includes a history of the smoking, or tobacco- related health factors, that were collected on or before the date of the Encounter. The data comes from the [place] facility where the Encounter took place. Date/Time Smoking Status/Tobacco Use Comment Nicola matta Mar 20, 2021 11:21 AM [facility] TOBACCO USE CURRENT NRT [facility] DECLINE Nov 15, 2020 10:00 AM VA-TOBACCO DOESNT USE WI 30 MIN [facility] WAKEUP Nov 15, 2020 10:00 AM VA-TOBACCO USE 30 YEARS OR MORE [facility] Nov 15, 2020 10:00 AM VA-TO[place]ACCO USE ADVICE [place] [facility] Nov 15, 2020 10:00 AM VA-TOBACCO USE ZIPPER TRIMMER NO [facility] Nov 15, 2020 10:00 AM VA-TOBACCO USE MED NO [place] [facility] Nov 15, 2020 10:00 AM VA-TOBACCO USER EVERY DAY [facility] Jun 21, 2019 02:29 PM VA-TOBACCO USE 30 YEARS OR MORE [facility] Jun 21, 2019 02:29 PM VA-TOBACCO USE ADVICE [place] [facility] Jun 21, 2019 02:29 PM VA-TOBACCO USE ZIPPER TRIMMER NO [facility] Jun 21, 2019 [...] 03:48 PM VA-TOBACCO USE ADVICE [place] [facility] Jun 09, 2018 03:48 PM VA-TOBACCO USE ZIPPER TRIMMER NO [facility] Jun 09, 2018 03:48 PM VA-TOBACCO USE MED NO [place] [facility] Jun 09, 2018 03:48 PM VA-TOBACCO USE WI 30 MIN OF WAKEUP [facility] Jun 09, 2018 03:48 PM VA-TOBACCO USER EVERY DAY [facility] Jun 20, 2017 07:53 AM CURRENT TOBACCO USER [facility] Jun 19, 2016 08:41 AM CUR[facility] Jun 21, 2015 08:15 AM CURRENT [facility]AC[facility]ER [facility] Mar 22, 2014 10:03 AM CURRENT [facility]AC[facility]ER [facility] Mar 25, 2013 11:01 AM CURRENT [facility]BACCO [facility]ER [facility] Feb 05, 2012 08:55 AM CURRENT [facility] January 01, 2011 09:26 AM CURRENT [facility]BACCO USER [facility] Mar 07, 2010 10:02 AM CURRENT [facility]BACCO USER [facility] Feb 21, 2009 08:17 AM CURRENT [facility]BACCO USER [facility] Nov 06, 2007 10:02 AM CURRENT [...] this document. The data comes from all [facility]. Date Advance Directives Provider Source Mar [...] the Encounter. The data comes from all [place] treatment facilities. Date/Time Radiology Report Provider Source Nov 30, 2021 07:05 AM CHEST 2 VIEWS PA AND LAT: MONET LUDWIG [facility] PAUL MICHELE [id number] -[birth year] M Exm Date: NOV 30, 2021@07:05 Req Phys: CHERRY MENDOZA Loc: 3LSOB/ 2@08:05 Img Loc: MAIN X-RAY Service: zzcard sect (Case [id number] COMPLETE) CHEST 2 VIEWS PA AND LAT (R AD Detailed) CPT:67210 Reason for Study: s/p upgrade ICD adding [...] pager listed below: User placing orders pager: [phone] LAST CREATININE 1.4 H (11/29/21) Report Status: Verified Date Reported: NOV 30, 2021 Date Verified: NOV 30, 2021 Lumber Tailer E-Sig:/ES/MONET LUDWIG MD, FACR, C CD Report: [...] 2021 06:25 PM CHEST 1 VIEW[facility] [id number] -[birth year] 9 M Exm Date: NOV 29, 2021@18:25 Req Phys: CHERRY MENDOZA Pat Loc: [facility] [address] [facility] (Req'g Loc) Img Loc: MAIN X-RAY Service: Unknown (Case [id number] COMPLETE) CHEST 1 VIEW (RAD Detailed) CPT:13087 Reason for Study: s/p upgrade ICD adding [...] pager listed below: User placing orders pager: [phone] LAST CREATININE 1.4 H (11/29/21) Report Status: Verified Date Reported: NOV 29, 2021 Date Verified: NOV 29, 2021 Lumber Tailer E-Sig:/ES/MAGDALENE DAVIDSON MD Report: DATE/TIME REGISTERED: 11/29/2021 [...] Primary Interpreting Staff: MAGDALENE DAVIDSON MD, RADIOLOGIST (Lumber Tailer) /LUAN
--- OUTSIDE RECORDS SUMMARY | 2022-04-02 16:11 | XMS_ITS | Encounter Summary ---
:1945 Author Organization Department [facility] Address [address] [place] [address] Care Team Providers Name Role Phone SAKSHI [...] MEDICARE MEDICARE PART Jun 25, PART B [id number] Saumya QUINONES PATIENT (WNR) (M) B 2011 78A 0 AVID MEDICARE MEDICARE PART Sep 25, PART A [id number] Saumya QUINONES PATIENT (WNR) (M) A 2009 78A 0 AVID MEDICARE MEDICARE PART Sep 25, PART A [id number] Saumya MICHELE ATIENT (WNR) (M) A 2009 78A [id number] AVID MEDICARE MEDICARE PART Sep 25, PART B [id number] Saumya MICHELE ATIENT (WNR) (M) B 2009 78A [id number] AVID Selected Encounter This section includes the information on record at [place] for the Encounter. Date/Time Encounter Type Encounter Reason Provider Source Description Dec 03, 2021 01:00 Outpatient ADMIN PAT ACTIVTIES SYSTEM,C IS-RICHARDK AM Encounter (MASNONCT) IHE Encounter Template Text not used by [place] Plan of Treatment: Future Appointments (+ 6 months) and Future Tests (+/- 45 days) The Plan of Treatment section includes future care activities for the [facility] This section includes future appointments and future orders which are active, pending orscheduled.Future Appointments This section includes appointments that were scheduled to occur 6 months from the date of the Encounter, up to a maximum of 20 appointments. The data comes from all [facility]. Appointment Date/Time Appointment Type Appointment Facili ty Name Dec 21, 2021 09:30 AM AMBULATORY - NONE [facility] January 07, 2022 01:30 PM AMBULATORY - MEDICINE [facility] Feb 05, 2022 07:00 AM AMBULATORY [facility] Feb 07, 2022 09:30 AM AMBULATORY - NONE [facility] Feb 13, 2022 10:00 AM AMBULATORY [facility] Mar 21, 2022 09:30 AM AMBULATORY [facility] Active, Pending, and Scheduled Orders This section includes a listing of several types of active, pending, and scheduled orders, including clinic medications orders, diagnostic test orders, procedure orders and consult orders; where the start date of the order is 45 days before the date of the Encounter or 45 days after the date of the Encounter. The data comes from all [facility]. Test Date/Time Test Type Test Details Facility Name Nov 29, 2021 06:30 AM Laboratory - Blood Bank TYPE & SCREEN - LA B [facility] Order BLOOD SP Dec 15, 2021 12:00 AM Laboratory - Chemistry BASIC METABOLIC MIN [facility] Order PANEL+MG PLASMA SP Lab Results: +/- 30 days of the encounter This section includes the Chemistry and Hematology Lab Results on record with [place] for the patient. Radiology Reports and Pathology Reports are provided separately, in subsequent sections.Lab Results This section contains the Chemistry/Hematology Results that were resulted 30 days before or 30 daysafter the date of the Encounter. Date/Time Source Result Type Result - Unit Interpretation Reference Range Comment Nov 30, 2021 11:26 [facility] FINGERSTICK GLUCOSE Speci men Type: BLOOD AM Comment: [place] Nurse Notified Ordering Provid er: TEAM,CARDS TWO Report Released Date/Time: Nov 30, 2021 11:46 AM Reporting Lab: [facility] [address] [facility] [place] [facility] [address] Performing Lab: [facility] [address] FINGERSTICK GLUCOSE 284 mg/dL H 70-100 Nov 30, 2021 09:47 AM [facility] ALBUMIN Specim en Type: PLASMA No comment enter ed. Ordering Provid er: ELIUD DINERO Report Released Date/Time: Nov 29, 2021 07:53 PM Reporting Lab: [facility] [facility] [address] Performing Lab: [facility] [address] [facility] [address] ALBUMIN 3.4 g/dL L 3.5-5.2 Nov 30, 2021 09:47 [facility] BASIC METABOLIC Specimen Type: PLASMA AM PANEL+MG No comment enter ed. Ordering Provid er: ANGIE MALHOTRA Report Released Date/Time: Nov 29, 2021 08:12 PM Reporting Lab: [facility] [address] Performing Lab: [facility] [address] CREATININE 1.2 mg/dL 0.7-1.2 UREA NITROGEN 18 mg/dL 8-26 GLUCOSE 342 mg/dL H 74-100 SODIUM 141 mmol/L 136-145 POTASSIUM 4.3 mmol/L 3.5-5.1 CHLORIDE 108 mmol/L H 98-107 CO2 26 mmol/L 22-29 CALCIUM 8.6 mg/dL 8.4-10.2 MAGNESIUM 1.5 mg/dL L 1.6-2.6 ANION GAP 7 mmol/L 5-15 CREAT EGFR(CKD-EPI) 63 >60 Nov 30, 2021 09:46 AM [facility] CBC Specim en Type: BLOOD No comment enter ed. Ordering Provid er: ANGIE MALHOTRA Report Released Date/Time: Nov 29, 2021 08:12 PM Reporting Lab: [facility] [address] [facility] [address] Performing Lab: [facility] [address] [facility] [address] WBC 10.61 10*3/uL 4.0-11.0 RBC 4.33 10*6/uL L 4.6-6.2 HGB 14.6 g/dL 13.5-17.9 HCT 45.2 41-54 MCV 104.4 fL H 80-100 MCH 33.7 pg H 27-33 MCHC 32.3 g/dL 32.0-37.5 PLT 71 10*3/uL L 150-400 MPV 13.9 fL H 7.4-10.4 RDW 14.7 H 11.5-14.5 IPF 17.8 H 0-10 Nov 30, 2021 06:09 [facility] FINGERSTICK GLUCOSE Speci men Type: BLOOD AM Comment: [place] Nurse Notified Ordering Provid er: TEAM,CARDS TWO Report Released Date/Time: Nov 30, 2021 06:32 AM Reporting Lab: [facility] [address] [facility] [address] Performing Lab: [facility] [address] [facility] [address] FINGERSTICK GLUCOSE 165 mg/dL H 70-100 Nov 29, 2021 07:35 [facility] FINGERSTICK GLUCOSE Speci men Type: BLOOD PM Comment: [place] Nurse Notified Ordering Provid er: GRANTCARDS TWO Report Released Date/Time: Nov 29, 2021 07:48 PM Reporting Lab: [facility] [address] [facility] [address] Performing Lab: [facility] [address] [facility] [address] FINGERSTICK GLUCOSE 160 mg/dL H 70-100 Nov 29, 2021 06:52 [facility] FINGERSTICK GLUCOSE Speci men Type: BLOOD PM Comment: [place] Nurse Notified Ordering Provid er: SAKSHI CROUCH Report Released Date/Time: Nov 29, 2021 07:04 PM Reporting Lab: [facility] [address] [facility] [address] Performing Lab: [facility] [address] [facility] [address] FINGERSTICK GLUCOSE 161 mg/dL H 70-100 Nov 29, 2021 04:18 [facility] FINGERSTICK GLUCOSE Speci men Type: BLOOD PM No comment enter ed. Ordering Provid er: GRANTCARDS TWO Report Released Date/Time: Nov 29, 2021 08:08 PM Reporting Lab: [facility] [address] [facility] [address] Performing Lab: [facility] [address] [facility] [address] FINGERSTICK GLUCOSE 179 mg/dL H 70-100 Nov 29, 2021 03:26 [facility] POC ABG/ELECTROLYTES Spec imen Type: ARTERIAL BLOOD PM Comment: Sample Type = ARTERIAL Ordering Provid er: TEAMCARDS TWO Report Released Date/Time: Nov 29, 2021 07:53 PM Reporting Lab: [facility] [address] Performing Lab: [facility] [address] POC PH 7.321 L 7.35-7.45 POC PCO2 [...] mg/dL L 4.50-5.30 Nov 29, 2021 03:24 [facility] FINGERSTICK GLUCOSE Speci men Type: BLOOD PM Comment: Save R esult Ordering Provid er: IRENE BURNS Report Released Date/Time: Nov 29, 2021 08:08 PM Reporting Lab: [facility] [address] Performing Lab: [facility] [address] FINGERSTICK GLUCOSE 188 mg/dL H 70-100 Nov 29, 2021 02:06 [facility] POC ABG/ELECTROLYTES Spec imen Type: ARTERIAL BLOOD PM Comment: Sample Type = ARTERIAL Ordering Provid er: IRENE BURNS Report Released Date/Time: Nov 29, 2021 07:53 PM Reporting Lab: [facility] [address] Performing Lab: [facility] [address] POC PH 7.313 L 7.35-7.45 POC PCO2 [...] mg/dL L 4.50-5.30 Nov 29, 2021 02:04 [facility] FINGERSTICK GLUCOSE Speci men Type: BLOOD PM Comment: Save R esult Ordering Provid er: IRENE BURNS Report Released Date/Time: Nov 29, 2021 08:08 PM Reporting Lab: [facility] [address] [facility] [address] Performing Lab: [facility] [address] [facility] [address] FINGERSTICK GLUCOSE 236 mg/dL H 70-100 Nov 29, 2021 01:52 PM [facility] POC ACT Specim en Type: BLOOD No comment enter ed. Ordering Provid er: IRENE BURNS Report Released Date/Time: Dec 03, 2021 01:31 PM Reporting Lab: [facility] [address] [facility] [address] Performing Lab: [facility] [address] [facility] [address] POC ACT 135 s 84-139 Nov 29, 2021 01:16 PM [facility] POC ACT Specim en Type: BLOOD No comment enter ed. Ordering Provid er: IRENE BURNS Report Released Date/Time: Dec 03, 2021 01:30 PM Reporting Lab: [facility] [address] [facility] [address] Performing Lab: [facility] [address] [facility] [address] POC ACT 355 s 84-139 Nov 29, 2021 12:49 PM [facility] POC ACT Specim en Type: BLOOD No comment enter ed. Ordering Provid er: IRENE BURNS Report Released Date/Time: Dec 03, 2021 01:30 PM Reporting Lab: [facility] [address] [facility] [address] Performing Lab: [facility] [address] [facility] [address] POC ACT 367 s 84-139 Nov 29, 2021 12:48 [facility] POC ABG/ELECTROLYTES Spec imen Type: ARTERIAL BLOOD PM Comment: Sample Type = ARTERIAL Ordering Provid er: IRENE BURNS Report Released Date/Time: Nov 29, 2021 07:53 PM Reporting Lab: [facility] [address] [facility] [address] Performing Lab: [facility] [address] [facility] [address] POC PH 7.289 L 7.35-7.45 POC PCO2 [...] 4.7 mg/dL 4.50-5.30 Nov 29, 2021 12:45 [facility] FINGERSTICK GLUCOSE Speci men Type: BLOOD PM Comment: [place] Ordering Provid er: IRENE BURNS TWO Report Released Date/Time: Nov 29, 2021 08:08 PM Reporting [facility] [address] Performing [facility] [address] FINGERSTICK GLUCOSE 186 mg/dL H 70-100 Nov 29, 2021 12:26 PM [facility] POC ACT Specim en Type: BLOOD No comment enter ed. Ordering Provid er: IRENE BURNS Report Released Date/Time: Dec 03, 2021 01:30 PM Reporting Lab: [facility] [address] [facility] [address] Performing Lab: [facility] [address] [facility] [address] POC ACT 367 s 84-139 Nov 29, 2021 11:58 AM [facility] POC ACT Specim en Type: BLOOD No comment enter ed. Ordering Provid er: IRENE BURNS Report Released Date/Time: Dec 03, 2021 01:30 PM Reporting Lab: [facility] [facility] [address] Performing Lab: [facility] [facility] [address] POC ACT 338 s 84-139 Nov 29, 2021 11:53 [facility] FINGERSTICK GLUCOSE Speci men Type: BLOOD AM Comment: Save R esult Ordering Provid er: IRENE BURNS TWO Report Released Date/Time: Nov 29, 2021 08:08 PM Reporting Lab: [facility] [address] Performing Lab: [facility] [address] FINGERSTICK GLUCOSE 225 mg/dL H 70-100 Nov 29, 2021 11:30 AM [facility] POC ACT Specim en Type: BLOOD No comment enter ed. Ordering Provid er: IRENE BURNS TWO Report Released Date/Time: Dec 03, 2021 01:30 PM Reporting Lab: [facility] [address] Performing Lab: [facility] [address] POC ACT 355 s 84-139 Nov 29, 2021 11:26 [facility] POC ABG/ELECTROLYTES Spec imen Type: ARTERIAL BLOOD AM Comment: Sample Type = ARTERIAL Ordering Provid er: IRENE BURNS TWO Report Released Date/Time: Nov 29, 2021 07:53 PM Reporting Lab: [facility] [address] Performing Lab: [facility] [address] POC PH 7.317 L 7.35-7.45 POC PCO2 [...] 4.8 mg/dL 4.50-5.30 Nov 29, 2021 11:06 [facility] FINGERSTICK GLUCOSE Speci men Type: BLOOD AM No comment enter ed. Ordering Provid er: IRENE BURNS TWO Report Released Date/Time: Nov 29, 2021 08:08 PM Reporting Lab: [facility] [address] Performing Lab: [place] [address] FINGERSTICK GLUCOSE 221 mg/dL H 70-100 Nov 29, 2021 11:02 AM [facility] POC ACT Specim en Type: BLOOD No comment enter ed. Ordering Provid er: IRENE BURNS Report Released Date/Time: Dec 03, 2021 01:30 PM Reporting Lab: [facility] [address] [facility] [address] Performing Lab: [facility] [facility] [address] POC ACT 294 s 84-139 Nov 29, 2021 10:26 AM [facility] POC ACT Specim en Type: BLOOD No comment enter ed. Ordering Provid er: IRENE BURNS Report Released Date/Time: Dec 03, 2021 01:30 PM Reporting Lab: [facility] [facility] [address] Performing Lab: [facility] [address] [facility] [address] POC ACT 329 s 84-139 Nov 29, 2021 10:06 AM [facility] POC ACT Specim en Type: BLOOD No comment enter ed. Ordering Provid er: IRENE BURNS Report Released Date/Time: Dec 03, 2021 01:30 PM Reporting Lab: [facility] [address] [facility] [address] Performing Lab: [facility] [address] [facility] [address] POC ACT 312 s 84-139 Nov 29, 2021 09:58 [facility] POC ABG/ELECTROLYTES Spec imen Type: ARTERIAL BLOOD AM Comment: Sample Type = ARTERIAL Ordering Provid er: IRENE BURNS Report Released Date/Time: Nov 29, 2021 07:53 PM Reporting Lab: [facility] [address] [facility] [address] Performing Lab: [facility] [address] [facility] [address] POC PH 7.334 L 7.35-7.45 POC PCO2 [...] 4.9 mg/dL 4.50-5.30 Nov 29, 2021 09:56 [facility] FINGERSTICK GLUCOSE Speci men Type: BLOOD AM No comment enter ed. Ordering Provid er: IRENE BURNS Report Released Date/Time: Nov 29, 2021 08:08 PM Reporting Lab: [facility] [address] [facility] [address] Performing Lab: [facility] [address] [facility] [address] FINGERSTICK GLUCOSE 194 mg/dL H 70-100 Nov 29, 2021 09:45 AM [facility] POC ACT Specim en Type: BLOOD No comment enter ed. Ordering Provid er: IRENE BURNS Report Released Date/Time: Dec 03, 2021 01:30 PM Reporting [facility] [address] Performing Lab[facility] [address] POC ACT 269 s 84-139 Nov 29, 2021 08:59 AM [facility] POC ACT Specim en Type: BLOOD No comment enter ed. Ordering Provid er: IRENE BURNS Report Released Date/Time: Dec 03, 2021 01:30 PM Reporting Lab: [facility] [address] [facility] [address] Performing Lab: [facility] [facility] [address] POC ACT 135 s 84-139 Nov 29, 2021 [facility] COVID-19 AND FLU/RSV Specime n Type: NASOPHARYNGEAL 07:05 AM DIAG PANEL(CEPHEID) Comment: Ce pheid GeneXpert (618) Ordering Provid er: KATHERINE FIGUEROA Report Released Date/Time: Oct 29, 2021 12:22 PM Reporting Lab: [facility] [address] [facility] [address] Performing Lab: [facility] [address] COVID-19 (CEPHEID) Not Detected Not Dete cted INFLUENZA A (PCR) Not Detected Not Detec susanne INFLUENZA B (PCR) Not Detected Not Detec susanne RSV (PCR) Not Detected Not Detected Nov 29, 2021 [facility] BASIC METABOLIC Specimen Typ e: PLASMA 06:38 AM PANEL+MG No comment enter ed. Ordering Provid er: KATHERINE FIGUEROA Report Released Date/Time: Oct 29, 2021 12:22 PM Reporting Lab: [facility] [address] Performing Lab: [facility] [address] CREATININE 1.4 mg/dL H 0.7-1.2 UREA NITROGEN 23 mg/dL 8-26 GLUCOSE 201 mg/dL H 74-100 SODIUM 143 mmol/L 136-145 POTASSIUM 4.3 mmol/L 3.5-5.1 CHLORIDE 108 mmol/L H 98-107 CO2 28 mmol/L 22-29 CALCIUM 9.9 mg/dL 8.4-10.2 MAGNESIUM 1.9 mg/dL 1.6-2.6 ANION GAP 7 mmol/L 5-15 CREAT EGFR(CKD-EPI) 53 L >60 Nov 29, 2021 06:38 [facility] CBC Specimen Type: BLOOD AM No comment enter ed. Ordering Provid er: KATHERINE FIGUEROA Report Released Date/Time: Oct 29, 2021 12:22 PM Reporting Lab: [facility] [address] Performing Lab: [facility] [address] WBC 7.40 10*3/uL 4.0-11.0 RBC 5.17 10*6/uL 4.6-6.2 HGB 17.6 g/dL 13.5-17.9 HCT 52.7 41-54 MCV 101.9 fL H 80-100 MCH 34.0 pg H 27-33 MCHC 33.4 g/dL 32.0-37.5 PLT 88 10*3/uL L 150-400 MPV 14.3 fL H 7.4-10.4 RDW 14.4 11.5-14.5 IPF 18.0 H 0-10 Nov 29, 2021 [facility] PROTHROMBIN Specimen Typ e: PLASMA 06:38 AM TIME/INR No comment enter ed. Ordering Provid er: KATHERINE FIGUEROA Report Released Date/Time: Oct 29, 2021 12:22 PM Reporting Lab: [facility] [address] [facility] [address] Performing Lab: [facility] [address] [facility] [address] .INR 1.1 0.8-1.1 .PT 13.1 s H 9.4-12.5 Nov 29, 2021 [facility] ACT PART Specimen Ty pe: PLASMA 06:38 AM THROMBO TIME No comment enter ed. Ordering Provid er: KATHERINE FIGUEROA Report Released Date/Time: Oct 29, 2021 12:22 PM Reporting Lab: [facility] [address] [facility] [address] Performing Lab: [facility] [address] [facility] [address] APTT 33.3 s 25.1-36.5 Social History: Smoking Status (Most current) and Tobacco Use (All prior to encounter date) This section includes the most current, and the historical, smoking and tobacco-related health factors from the [place] facility where the Encounter took place.Current Smoking Status This section includes the most current smoking, or tobacco-related health factor, from the [place] facility where the Encounter took place. Date/Time Current Smoking Status Comment Facility Nov 29, 2021 08:36 PM [facility] TOBACCO USE CURRENT NRT [facility] ACCEPT Tobacco Use History This section includes a history of the smoking, or tobacco- related health factors, that were collected on or before the date of the Encounter. The data comes from the [place] facility where the Encounter took place. Date/Time Smoking Status/Tobacco Use Comment Nicola matta Mar 20, 2021 11:21 AM [facility] TOBACCO USE CURRENT NRT [facility] DECLINE Nov 15, 2020 10:00 AM VA-TOBACCO DOESNT USE WI 30 MIN [facility] WAKEUP Nov 15, 2020 10:00 AM VA-TOBACCO USE 30 YEARS OR MORE [facility] Nov 15, 2020 10:00 AM 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 Jun 09, 2018 03:48 PM VA-TOBACCO USE WI 30 MIN OF WAKEUP [facility] Jun 09, 2018 03:48 PM VA-TOBACCO USER EVERY DAY [facility] Jun 20, 2017 07:53 AM [facility] Jun 19, 2016 08:41 AM CURRENT TOBACCO USER [facility] Jun 21, 2015 08:15 AM CURRENT TOBACCO USER [facility] Mar 22, 2014 10:03 AM CURRENT [facility]BACCO [facility]ER [facility] Mar 25, 2013 11:01 AM CURRENT TOBACCO USER [facility] Feb 05, 2012 08:55 AM CURRENT TOBACCO USER [facility] January 01, 2011 09:26 AM CURRENT TOBACCO USER [facility] Mar 07, 2010 10:02 AM CURRENT TOBACCO USER [facility] Feb 21, 2009 08:17 AM [facility] Nov 06, 2007 10:02 AM [facility] January 02, 2007 10:33 AM CURRENT TOBACCO USER [facility] Advance Directives: All historical and [...] Provider Source Mar 06, 2005 ADVANCE DIRECTIVE MICHAEL,[facility] Radiology Reports: +/- 30 days [...] 2 VIEWS PA AND LAT: MONET LUDWIG [facility] PAUL MICHELE [id number] -[birth year] M Exm Date: NOV 30, 2021@07:05 Req Phys: CHERRY MENDOZA Loc: 3LSOB/ 2@08:05 Img Loc: MAIN X-RAY Service: zzcard sect (Case [id number] COMPLETE) CHEST 2 VIEWS PA AND LAT (R AD Detailed) CPT:05956 Reason for Study: s/p upgrade ICD adding [...] pager listed below: User placing orders pager: [phone] LAST CREATININE 1.4 H (11/29/21) Report Status: Verified Date Reported: NOV 30, 2021 Date Verified: NOV 30, 2021 Poultry Barn Manager E-Sig:/ES/MONET LUDWIG MD, FACR, C CD [...] PM CHEST 1 VIEW: MAGDALENE DAVIDSON [facility] PAUL MIC[facility] [id number] -[birth year] 9 M Exm Date: NOV 29, 2021@18:25 Req Phys: CHERRY MENDOZA Pat Loc: [facility] [address] AY (Req'g Loc) Img Loc: MAIN X-RAY Service: Unknown (Case [id number] COMPLETE) CHEST 1 VIEW (RAD Detailed) CPT:63308 Reason for Study: s/p upgrade ICD adding [...] pager listed below: User placing orders pager: [phone] LAST CREATININE 1.4 H (11/29/21) Report Status: Verified Date Reported: NOV 29, 2021 Date Verified: NOV 29, 2021 Poultry Barn Manager E-Sig:/ES/MAGDALENE DAVIDSON MD Report: DATE/TIME REGISTERED: [...] Primary Interpreting Staff: MAGDALENE DAVIDSON MD, RADIOLOGIST (Poultry Barn Manager) /LUAN Encounter Notes: All associated encounter notes This section contains the clinical notes associated to the Encounter. Date/Time Encounter Note(s) Provider Source Dec 03, 2021 01:00 AM CRITICAL CARE UNIT NOTE: FLORENCIO RIOS [facility] LOCAL TITLE: ICCA INPATIENT FLOWSHEET STANDARD TITLE: CRITICAL CARE UNIT NOTE DATE OF NOTE: DEC 03, 2021@01:00 ENTRY DATE: DEC 04, 2021@14:45:08 AUTHOR: FLORENCIO RIOS EXP COSIGNER: URGENCY: STATUS: COMPLETED This is a place pyle only. Please see VISTA Im aging to view document. /es/ FLORENCIO SYSTEM ICU DOCUMENT IMPORT Signed: 12/04/2021 14:45
--- OUTSIDE RECORDS SUMMARY | 2022-04-02 16:11 | XMS_ITS | Encounter Summary ---
:[address] [facility] Address [address] [place] [address] Care Team Providers Name Role Phone SAKSHI [...] MEDICARE MEDICARE PART Jun 25, PART B [id number] Saumya QUINONES PATIENT (WNR) (M) B 2011 78A 0 AVID MEDICARE MEDICARE PART Sep 25, PART A [id number] Saumya QUINONES PATIENT (WNR) (M) A 2009 78A 0 AVID MEDICARE MEDICARE PART Sep 25, PART A [id number] Saumya MICHELE ATIENT (WNR) (M) A 2009 78A [id number] AVID MEDICARE MEDICARE PART Sep 25, PART B [id number] Saumya MICHELE ATIENT (WNR) (M) B 2009 78A [id number] AVID Selected Encounter This section includes the information on record at [facility] for the Encounter. Date/Time Encounter Type Encounter Reason Provider Source Description Dec 02, 2021 01:00 Outpatient ADMIN PAT ACTIVTIES SYSTEM,C IS-RICHARDK AM Encounter (MASNONCT) IHE Encounter Template Text not used by [facility] Plan of Treatment: Future Appointments (+ 6 months) and Future Tests (+/- 45 days) The Plan of Treatment section includes future care activities for the patient [facility] This section includes future appointments and future orders which are active, pending orscheduled.Future Appointments This section includes appointments that were scheduled to occur 6 months from the date of the Encounter, up to a maximum of 20 appointments. The data comes from all [facility]. Appointment Date/Time Appointment Type Appointment Facili ty Name Dec 21, 2021 09:30 AM AMBULATORY - NONE [facility] January 07, 2022 01:30 PM AMBULATORY - MEDICINE [facility] Feb 05, 2022 07:00 AM AMBULATORY [facility] Feb 07, 2022 09:30 AM AMBULATORY - NONE [facility] Feb 13, 2022 10:00 AM AMBULATORY [facility] Mar 21, 2022 09:30 AM AMBULATORY [facility] Active, Pending, and Scheduled Orders This section includes a listing of several types of active, pending, and scheduled orders, including clinic medications orders, diagnostic test orders, procedure orders and consult orders; where the start date of the order is 45 days before the date of the Encounter or 45 days after the date of the Encounter. The data comes from all [facility]. Test Date/Time Test Type Test Details Facility Name Nov 29, 2021 06:30 AM Laboratory - Blood Bank TYPE & SCREEN - LA B [facility] Order BLOOD SP Dec 15, 2021 12:00 AM Laboratory - Chemistry BASIC METABOLIC [facility] Order PANEL+MG PLASMA SP Lab [...] Reference Range Comment Nov 30, 2021 11:26 [facility] FINGERSTICK GLUCOSE Speci men Type: BLOOD AM Comment: [place] Nurse Notified Ordering Provid er: TEAM,CARDS TWO Report Released Date/Time: Nov 30, 2021 11:46 AM Reporting Lab: [facility] [address] Performing Lab: [facility] [address] FINGERSTICK GLUCOSE 284 mg/dL H 70-100 Nov 30, 2021 09:47 AM [facility] ALBUMIN Specim en Type: PLASMA No comment enter ed. Ordering Provid er: ELIUD DINERO Report Released Date/Time: Nov 29, 2021 07:53 PM Reporting Lab: [facility] [address] Performing Lab: [facility] [address] [facility] [address] ALBUMIN 3.4 g/dL L 3.5-5.2 Nov 30, 2021 09:47 [facility] BASIC METABOLIC Specimen Type: PLASMA AM PANEL+MG No comment enter ed. Ordering Provid er: ANGIE MALHOTRA Report Released Date/Time: Nov 29, 2021 08:12 PM Reporting Lab: [facility] [address] Performing Lab: [facility] [address] CREATININE 1.2 mg/dL 0.7-1.2 UREA NITROGEN 18 mg/dL 8-26 GLUCOSE 342 mg/dL H 74-100 SODIUM 141 mmol/L 136-145 POTASSIUM 4.3 mmol/L 3.5-5.1 CHLORIDE 108 mmol/L H 98-107 CO2 26 mmol/L 22-29 CALCIUM 8.6 mg/dL 8.4-10.2 MAGNESIUM 1.5 mg/dL L 1.6-2.6 ANION GAP 7 mmol/L 5-15 CREAT EGFR(CKD-EPI) 63 >60 Nov 30, 2021 09:46 AM [facility] CBC Specim en Type: BLOOD No comment enter ed. Ordering Provid er: ANGIE MALHOTRA Report Released Date/Time: Nov 29, 2021 08:12 PM Reporting Lab: [facility] [address] [facility] [facility] [address] Performing Lab: [facility] [address] [facility] [address] WBC 10.61 10*3/uL 4.0-11.0 RBC 4.33 10*6/uL L 4.6-6.2 HGB 14.6 g/dL 13.5-17.9 HCT 45.2 41-54 MCV 104.4 fL H 80-100 MCH 33.7 pg H 27-33 MCHC 32.3 g/dL 32.0-37.5 PLT 71 10*3/uL L 150-400 MPV 13.9 fL H 7.4-10.4 RDW 14.7 H 11.5-14.5 IPF 17.8 H 0-10 Nov 30, 2021 06:09 [facility] FINGERSTICK GLUCOSE Speci men Type: BLOOD AM Comment: [place] Nurse Notified Ordering Provid er: TEAM,CARDS TWO Report Released Date/Time: Nov 30, 2021 06:32 AM Reporting Lab: [facility] [address] [facility] [address] Performing Lab: [facility] [address] [facility] [address] FINGERSTICK GLUCOSE 165 mg/dL H 70-100 Nov 29, 2021 07:35 [facility] FINGERSTICK GLUCOSE Speci men Type: BLOOD PM Comment: [place] Nurse Notified Ordering Provid er: GRANTCARDS TWO Report Released Date/Time: Nov 29, 2021 07:48 PM Reporting Lab: [facility] [address] [facility] [address] Performing Lab: [facility] [address] [facility] [address] FINGERSTICK GLUCOSE 160 mg/dL H 70-100 Nov 29, 2021 06:52 [facility] FINGERSTICK GLUCOSE Speci men Type: BLOOD PM Comment: [place] Nurse Notified Ordering Provid er: SAKSHI CROUCH Report Released Date/Time: Nov 29, 2021 07:04 PM Reporting Lab: [facility] [address] [facility] [address] Performing Lab: [facility] [address] [facility] [address] FINGERSTICK GLUCOSE 161 mg/dL H 70-100 Nov 29, 2021 04:18 [facility] FINGERSTICK GLUCOSE Speci men Type: BLOOD PM No comment enter ed. Ordering Provid er: GRANTCARDS TWO Report Released Date/Time: Nov 29, 2021 08:08 PM Reporting Lab: [facility] [address] [facility] [address] Performing Lab: [facility] [address] [facility] [address] FINGERSTICK GLUCOSE 179 mg/dL H 70-100 Nov 29, 2021 03:26 [facility] POC ABG/ELECTROLYTES Spec imen Type: ARTERIAL BLOOD PM Comment: Sample Type = ARTERIAL Ordering Provid er: TEAMCARDS TWO Report Released Date/Time: Nov 29, 2021 07:53 PM Reporting Lab: [facility] [address] Performing Lab: [facility] [address] POC PH 7.321 L 7.35-7.45 POC PCO2 [...] mg/dL L 4.50-5.30 Nov 29, 2021 03:24 [facility] FINGERSTICK GLUCOSE Speci men Type: BLOOD PM Comment: Save R esult Ordering Provid er: IRENE BURNS Report Released Date/Time: Nov 29, 2021 08:08 PM Reporting Lab: [facility] [address] Performing Lab: [facility] [address] FINGERSTICK GLUCOSE 188 mg/dL H 70-100 Nov 29, 2021 02:06 [facility] POC ABG/ELECTROLYTES Spec imen Type: ARTERIAL BLOOD PM Comment: Sample Type = ARTERIAL Ordering Provid er: IRENE BURNS Report Released Date/Time: Nov 29, 2021 07:53 PM Reporting Lab: [facility] [address] Performing Lab: [facility] [address] POC PH 7.313 L 7.35-7.45 POC PCO2 [...] mg/dL L 4.50-5.30 Nov 29, 2021 02:04 [facility] FINGERSTICK GLUCOSE Speci men Type: BLOOD PM Comment: Save R esult Ordering Provid er: IRENE BURNS Report Released Date/Time: Nov 29, 2021 08:08 PM Reporting Lab: [facility] [address] [facility] [address] Performing Lab: [facility] [address] [facility] [address] FINGERSTICK GLUCOSE 236 mg/dL H 70-100 Nov 29, 2021 01:52 PM [facility] POC ACT Specim en Type: BLOOD No comment enter ed. Ordering Provid er: IRENE BURNS Report Released Date/Time: Dec 03, 2021 01:31 PM Reporting Lab: [facility] [address] [facility] [address] Performing Lab: [facility] [address] [facility] [address] POC ACT 135 s 84-139 Nov 29, 2021 01:16 PM [facility] POC ACT Specim en Type: BLOOD No comment enter ed. Ordering Provid er: IRENE BURNS Report Released Date/Time: Dec 03, 2021 01:30 PM Reporting Lab: [facility] [address] [facility] [address] Performing Lab: [facility] [address] [facility] [address] POC ACT 355 s 84-139 Nov 29, 2021 12:49 PM [facility] POC ACT Specim en Type: BLOOD No comment enter ed. Ordering Provid er: IRENE BURNS Report Released Date/Time: Dec 03, 2021 01:30 PM Reporting Lab: [facility] [address] [facility] [address] Performing Lab: [facility] [address] [facility] [address] POC ACT 367 s 84-139 Nov 29, 2021 12:48 [facility] POC ABG/ELECTROLYTES Spec imen Type: ARTERIAL BLOOD PM Comment: Sample Type = ARTERIAL Ordering Provid er: IRENE BURNS Report Released Date/Time: Nov 29, 2021 07:53 PM Reporting Lab: [facility] [address] [facility] [address] Performing Lab: [facility] [address] POC PH 7.289 L 7.35-7.45 POC PCO2 [...] 4.7 mg/dL 4.50-5.30 Nov 29, 2021 12:45 [facility] FINGERSTICK GLUCOSE Speci men Type: BLOOD PM Comment: [place] Ordering Provid er: IRENE BURNS TWO Report Released Date/Time: Nov 29, 2021 08:08 PM Reporting [facility] [address] [facility]forming Lab[facility] [address] FINGERSTICK GLUCOSE 186 mg/dL H 70-100 Nov 29, 2021 12:26 PM [facility] POC ACT Specim en Type: BLOOD No comment enter ed. Ordering Provid er: IRENE BURNS Report Released Date/Time: Dec 03, 2021 01:30 PM Reporting Lab: [facility] [address] Performing Lab: [facility] [address] POC ACT 367 s 84-139 Nov 29, 2021 11:58 AM [facility] POC ACT Specim en Type: BLOOD No comment enter ed. Ordering Provid er: IRENE BURNS Report Released Date/Time: Dec 03, 2021 01:30 PM Reporting Lab: [facility] [address] Performing Lab: [facility] [address] POC ACT 338 s 84-139 Nov 29, 2021 11:53 [facility] FINGERSTICK GLUCOSE Speci men Type: BLOOD AM Comment: Save R esult Ordering Provid er: IRENE BURNS TWO Report Released Date/Time: Nov 29, 2021 08:08 PM Reporting Lab: [facility] [address] Performing Lab: [facility] [address] FINGERSTICK GLUCOSE 225 mg/dL H 70-100 Nov 29, 2021 11:30 AM [facility] POC ACT Specim en Type: BLOOD No comment enter ed. Ordering Provid er: IRENE BURNS TWO Report Released Date/Time: Dec 03, 2021 01:30 PM Reporting Lab: [facility] [address] Performing Lab: [facility] [address] POC ACT 355 s 84-139 Nov 29, 2021 11:26 [facility] POC ABG/ELECTROLYTES Spec imen Type: ARTERIAL BLOOD AM Comment: Sample Type = ARTERIAL Ordering Provid er: IRENE BURNS TWO Report Released Date/Time: Nov 29, 2021 07:53 PM Reporting Lab: [facility] [address] Performing Lab: [facility] [address] POC PH 7.317 L 7.35-7.45 POC PCO2 [...] 4.8 mg/dL 4.50-5.30 Nov 29, 2021 11:06 [facility] FINGERSTICK GLUCOSE Speci men Type: BLOOD AM No comment enter ed. Ordering Provid er: IRENE BURNS TWO Report Released Date/Time: Nov 29, 2021 08:08 PM Reporting Lab: [facility] [address] Performing Lab: [place] [address] FINGERSTICK GLUCOSE 221 mg/dL H 70-100 Nov 29, 2021 11:02 AM [facility] POC ACT Specim en Type: BLOOD No comment enter ed. Ordering Provid er: IRENE BURNS Report Released Date/Time: Dec 03, 2021 01:30 PM Reporting Lab: [facility] [address] [facility] [address] Performing Lab: [facility] [address] POC ACT 294 s 84-139 Nov 29, 2021 10:26 AM [facility] POC ACT Specim en Type: BLOOD No comment enter ed. Ordering Provid er: IRENE BURNS Report Released Date/Time: Dec 03, 2021 01:30 PM Reporting Lab: [facility] [address] Performing Lab: [facility] [address] POC ACT 329 s 84-139 Nov 29, 2021 10:06 AM [facility] POC ACT Specim en Type: BLOOD No comment enter ed. Ordering Provid er: IRENE BURNS Report Released Date/Time: Dec 03, 2021 01:30 PM Reporting Lab: [facility] [address] [facility] [address] Performing Lab: [facility] [address] [facility] [address] POC ACT 312 s 84-139 Nov 29, 2021 09:58 [facility] POC ABG/ELECTROLYTES Spec imen Type: ARTERIAL BLOOD AM Comment: Sample Type = ARTERIAL Ordering Provid er: IRENE BURNS Report Released Date/Time: Nov 29, 2021 07:53 PM Reporting Lab: [facility] [address] [facility] [address] Performing Lab: [facility] [address] [facility] [address] POC PH 7.334 L 7.35-7.45 POC PCO2 [...] 4.9 mg/dL 4.50-5.30 Nov 29, 2021 09:56 [facility] FINGERSTICK GLUCOSE Speci men Type: BLOOD AM No comment enter ed. Ordering Provid er: IRENE BURNS Report Released Date/Time: Nov 29, 2021 08:08 PM Reporting Lab: [facility] [address] Performing Lab: [facility] [address] FINGERSTICK GLUCOSE 194 mg/dL H 70-100 Nov 29, 2021 09:45 AM [facility] POC ACT Specim en Type: BLOOD No comment enter ed. Ordering Provid er: IRENE BURNS Report Released Date/Time: Dec 03, 2021 01:30 PM Reporting [facility] [address] Performing Lab[facility] [address] POC ACT 269 s 84-139 Nov 29, 2021 08:59 AM [facility] POC ACT Specim en Type: BLOOD No comment enter ed. Ordering Provid er: IRENE BURNS Report Released Date/Time: Dec 03, 2021 01:30 PM Reporting Lab: [facility] [address] Performing Lab: [facility] [address] POC ACT 135 s 84-139 Nov 29, 2021 [facility] COVID-19 AND FLU/RSV Specime n Type: NASOPHARYNGEAL 07:05 AM DIAG PANEL(CEPHEID) Comment: Ce pheid GeneXpert (618) Ordering Provid er: KATHERINE FIGUEROA Report Released Date/Time: Oct 29, 2021 12:22 PM Reporting Lab: [facility] [address] [facility] Lab[facility] [address] COVID-19 (CEPHEID) Not Detected Not Dete cted INFLUENZA A (PCR) Not Detected Not Detec susanne INFLUENZA B (PCR) Not Detected Not Detec susanne RSV (PCR) Not Detected Not Detected Nov 29, 2021 [facility] BASIC METABOLIC Specimen Typ e: PLASMA 06:38 AM PANEL+MG No comment enter ed. Ordering Provid er: KATHERINE FIGUEROA Report Released Date/Time: Oct 29, 2021 12:22 PM Reporting Lab: [facility] [address] Performing Lab: [facility] [address] CREATININE 1.4 mg/dL H 0.7-1.2 UREA NITROGEN 23 mg/dL 8-26 GLUCOSE 201 mg/dL H 74-100 SODIUM 143 mmol/L 136-145 POTASSIUM 4.3 mmol/L 3.5-5.1 CHLORIDE 108 mmol/L H 98-107 CO2 28 mmol/L 22-29 CALCIUM 9.9 mg/dL 8.4-10.2 MAGNESIUM 1.9 mg/dL 1.6-2.6 ANION GAP 7 mmol/L 5-15 CREAT EGFR(CKD-EPI) 53 L >60 Nov 29, 2021 06:38 [facility] CBC Specimen Type: BLOOD AM No comment enter ed. Ordering Provid er: KATHERINE FIGUEROA Report Released Date/Time: Oct 29, 2021 12:22 PM Reporting Lab: [facility] [address] Performing Lab: [facility] [address] WBC 7.40 10*3/uL 4.0-11.0 RBC 5.17 10*6/uL 4.6-6.2 HGB 17.6 g/dL 13.5-17.9 HCT 52.7 41-54 MCV 101.9 fL H 80-100 MCH 34.0 pg H 27-33 MCHC 33.4 g/dL 32.0-37.5 PLT 88 10*3/uL L 150-400 MPV 14.3 fL H 7.4-10.4 RDW 14.4 11.5-14.5 IPF 18.0 H 0-10 Nov 29, 2021 [facility] PROTHROMBIN Specimen Typ e: PLASMA 06:38 AM TIME/INR No comment enter ed. Ordering Provid er: KATHERINE FIGUEROA Report Released Date/Time: Oct 29, 2021 12:22 PM Reporting Lab: [facility] [address] [facility] [address] Performing Lab: [facility] [address] [facility] [address] .INR 1.1 0.8-1.1 .PT 13.1 s H 9.4-12.5 Nov 29, 2021 [facility] ACT PART Specimen Ty pe: PLASMA 06:38 AM THROMBO TIME No comment enter ed. Ordering Provid er: KATHERINE FIGUEROA Report Released Date/Time: Oct 29, 2021 12:22 PM Reporting Lab: [facility] [address] [facility] [address] Performing Lab: [facility] [address] [facility] [address] APTT 33.3 s 25.1-36.5 Social History: Smoking [...] 08:36 PM VA-[facility]AAES TOBACCO USE CURRENT NRT [facility] ACCEPT Tobacco Use History This section includes a history of the smoking, or tobacco- related health factors, that were collected on or before the date of the Encounter. The data comes from the [facility] facility where the Encounter took place. 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 [facility] Nov 15, 2020 10:00 AM VA-TOBACCO USE MED NO [place] [facility] Nov 15, 2020 10:00 AM VA-TOBACCO USER EVERY DAY [facility] Jun 21, 2019 02:29 PM VA-TOBACCO USE 30 YEARS OR MORE [facility] Jun 21, 2019 02:29 PM VA-TOBACCO USE [facility]ICE [facility] Jun 21, 2019 02:29 PM 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 [facility] Jun 21, 2019 02:29 PM VA-TOBACCO USE MED NO [place] [facility] Jun 21, 2019 02:29 PM VA-TOBACCO USE WI 30 MIN OF WAKEUP [facility] Jun 21, 2019 02:29 PM VA-TOBACCO USER EVERY DAY [facility] Jun 09, 2018 03:48 PM VA-TOBACCO USE 30 YEARS OR MORE [facility] Jun 09, 2018 03:48 PM VA-TOBACCO USE [facility]ICE [facility] Jun 09, 2018 03:48 PM 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 [facility] Jun 09, 2018 03:48 PM VA-TOBACCO USE MED NO [facility] Jun 09, 2018 03:48 PM VA-TOBACCO USE WI 30 MIN OF WAKEUP [facility] Jun 09, 2018 03:48 PM VA-TOBACCO USER EVERY DAY [facility] Jun 20, 2017 07:53 AM [facility] Jun 19, 2016 08:41 AM CURRENT TOBACCO USER [facility] Jun 21, 2015 08:15 AM CURRENT TOBACCO USER [facility] Mar 22, 2014 10:03 AM CURRENT [facility]ACCO [facility] Mar 25, 2013 11:01 AM CURRENT TOBACCO USER [facility] Feb 05, 2012 08:55 AM CURRENT TOBACCO USER [facility] January 01, 2011 09:26 AM CURRENT TOBACCO USER [facility] Mar 07, 2010 10:02 AM CURRENT TOBACCO USER [facility] Feb 21, 2009 08:17 AM CURRENT [facility]ACCO [facility] Nov 06, 2007 10:02 AM CURRENT [facility]ACCO [facility]ER [facility] January 02, 2007 10:33 [...] Provider Source Mar 06, 2005 ADVANCE DIRECTIVE MICHAEL,[facility] Radiology Reports: +/- 30 days of [...] 2 VIEWS PA AND LAT: MONET LUDWIG [facility] PAUL MICHELE [id number] -[birth year] 9 M Exm Date: NOV 30, 2021@07:05 Req Phys: CHERRY MENDOZA Loc: 3LSOB/ 2@08:05 Img Loc: MAIN X-RAY Service: zzcard sect (Case [id number] COMPLETE) CHEST 2 VIEWS PA AND LAT (R AD Detailed) CPT:86882 Reason for Study: s/p upgrade ICD adding [...] pager listed below: User placing orders pager: [phone] LAST CREATININE 1.4 H (11/29/21) Report Status: Verified Date Reported: NOV 30, 2021 Date Verified: NOV 30, 2021 Split And Drum Room Supervisor E-Sig:/ES/MONET LUDWIG MD, FACR, C CD [...] PM CHEST 1 VIEW: MAGDALENE DAVIDSON [facility] PAUL MICHELE [id number] -[birth year], [birth year] 9 M Exm Date: NOV 29, 2021@18:25 Req Phys: CHERRY MENDOZA Pat Loc: [facility] [address] A[facility] (Req'g Loc) Img Loc: MAIN X-RAY Service: Unknown (Case [id number] COMPLETE) CHEST 1 VIEW (RAD Detailed) CPT:08812 Reason for Study: s/p upgrade ICD adding [...] pager listed below: User placing orders pager: [phone] LAST CREATININE 1.4 H (11/29/21) Report Status: Verified Date Reported: NOV 29, 2021 Date Verified: NOV 29, 2021 Split And Drum Room Supervisor E-Sig:/ES/MAGDALENE DAVIDSON MD Report: DATE/TIME REGISTERED: 11/29/2021 [...] Primary Interpreting Staff: MAGDALENE DAVIDSON MD, RADIOLOGIST (Split And Drum Room Supervisor) /LUAN Encounter Notes: All associated encounter notes This section contains the clinical notes associated to the Encounter. Date/Time Encounter Note(s) Provider Source Dec 02, 2021 01:00 AM CRITICAL CARE UNIT NOTE: FLORENCIO RIOS [facility] LOCAL TITLE: ICCA INPATIENT FLOWSHEET STANDARD TITLE: CRITICAL CARE UNIT NOTE DATE OF NOTE: DEC 02, 2021@01:00 ENTRY DATE: DEC 03, 2021@14:35:20 AUTHOR: FLORENCIO RIOS EXP COSIGNER: URGENCY: STATUS: COMPLETED This is a place pyle only. Please see VISTA Im aging to view document. /es/ FLORENCIO SYSTEM ICU DOCUMENT IMPORT Signed: 12/03/2021 14:35
--- OUTSIDE RECORDS SUMMARY | 2022-04-02 16:11 | XMS_ITS | Encounter Summary ---
:1945 Author Organization [facility] Address [address] [place] [id number] Care Team Providers Name Role Phone CROUCH [...] MEDICARE MEDICARE PART Jun 25, PART B [id number] Saumya QUINONES PATIENT (WNR) (M) B 2011 78A 0 AVID MEDICARE MEDICARE PART Sep 25, PART A [id number] Saumya QUINONES PATIENT (WNR) (M) A 2009 78A 0 AVID MEDICARE MEDICARE PART Sep 25, PART A [id number] Saumya MICHELE (WNR) (M) A 2009 78A [id number] AVID MEDICARE MEDICARE PART Sep 25, PART B [id number] Saumya MICHELE (WNR) (M) B 2009 [id number] [phone] AVID Selected Encounter This section includes the information on record at [place] for the Encounter. Date/Time Encounter Type Encounter Reason Provider Source Description Dec 01, 2021 HOSPITAL CARDIOLOGY ICD-10-CM I48.19 VICENTE PELAEZ 03:02 PM DISCHARGE DAY Other persistent A atrial fibrillation with Provider Comments: Persistent atrial fibrillation (SCT [id number]) IHE Encounter Template Text not used by [place] Assessments - Encounter Diagnoses This section includes the primary and secondary diagnoses documented for the Encounter. 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 This section includes future appointments and [...] 2021 09:30 AM AMBULATORY - NONE [facility] January 07, 2022 01:30 PM AMBULATORY - MEDICINE [facility] Feb 05, 2022 07:00 AM AMBULATORY - [facility] Feb 07, 2022 09:30 AM AMBULATORY [facility] Feb 13, 2022 10:00 AM AMBULATORY - [facility] Mar 21, 2022 09:30 AM AMBULATORY [facility] Active, Pending, and Scheduled Orders [...] The data comes from all [place] treatment [facility]. Test Date/Time Test Type Test Details Facility Name Nov 29, 2021 06:30 AM Laboratory - Blood Bank TYPE & SCREEN - LA B [facility] Order BLOOD SP Dec 15, 2021 12:00 AM Laboratory - Chemistry BASIC METABOLIC MIN [facility] Order PANEL+MG PLASMA SP Lab [...] Range Comment Nov 30, 2021 11:26 [facility] FINGERSTICK GLUCOSE Speci men Type: BLOOD AM Comment: [place] Nurse Notified Ordering Provid er: GRANT,IRENE TWO Report Released Date/Time: Nov 30, 2021 11:46 AM [facility] [address] Performing Lab: [facility] [address] FINGERSTICK GLUCOSE 284 mg/dL H 70-100 Nov 30, 2021 09:47 AM [facility] ALBUMIN Specim en Type: PLASMA No comment enter ed. Ordering Provid er: ELIUD DINERO Report Released Date/Time: Nov 29, 2021 07:53 PM Reporting Lab: [facility] [address] Performing Lab: [facility] [address] ALBUMIN 3.4 g/dL L 3.5-5.2 Nov 30, 2021 09:47 [facility] BASIC METABOLIC Specimen Type: PLASMA AM PANEL+MG No comment enter ed. Ordering Provid er: ANGIE MALHOTRA Report Released Date/Time: Nov 29, 2021 08:12 PM Reporting Lab: [facility] [address] [facility] [address] [facility] Lab[facility] [address] CREATININE 1.2 mg/dL 0.7-1.2 UREA NITROGEN 18 mg/dL 8-26 GLUCOSE 342 mg/dL H 74-100 SODIUM 141 mmol/L 136-145 POTASSIUM 4.3 mmol/L 3.5-5.1 CHLORIDE 108 mmol/L H 98-107 CO2 26 mmol/L 22-29 CALCIUM 8.6 mg/dL 8.4-10.2 MAGNESIUM 1.5 mg/dL L 1.6-2.6 ANION GAP 7 mmol/L 5-15 CREAT EGFR(CKD-EPI) 63 >60 Nov 30, 2021 09:46 AM [facility] CBC Specim en Type: BLOOD No comment enter ed. Ordering Provid er: ANGIE MALHOTRA Report Released Date/Time: Nov 29, 2021 08:12 PM Reporting Lab: [facility] [address] [facility] [address] Performing Lab: [facility] [address] [facility] [address] WBC 10.61 10*3/uL 4.0-11.0 RBC 4.33 10*6/uL L 4.6-6.2 HGB 14.6 g/dL 13.5-17.9 HCT 45.2 41-54 MCV 104.4 fL H 80-100 MCH 33.7 pg H 27-33 MCHC 32.3 g/dL 32.0-37.5 PLT 71 10*3/uL L 150-400 MPV 13.9 fL H 7.4-10.4 RDW 14.7 H 11.5-14.5 IPF 17.8 H 0-10 Nov 30, 2021 06:09 [facility] FINGERSTICK GLUCOSE Speci men Type: BLOOD AM Comment: [place] Nurse Notified Ordering Provid er: GRANTCARDS TWO Report Released Date/Time: Nov 30, 2021 06:32 AM Reporting Lab: [facility] [address] [facility] [address] Performing Lab: [facility] [address] [facility] [address] FINGERSTICK GLUCOSE 165 mg/dL H 70-100 Nov 29, 2021 07:35 [facility] FINGERSTICK GLUCOSE Speci men Type: BLOOD PM Comment: [place] Nurse Notified Ordering Provid er: TEAM,CARDS TWO Report Released Date/Time: Nov 29, 2021 07:48 PM Reporting Lab: [facility] [address] [facility] [address] Performing Lab: [facility] [address] [facility] [address] FINGERSTICK GLUCOSE 160 mg/dL H 70-100 Nov 29, 2021 06:52 [facility] FINGERSTICK GLUCOSE Speci men Type: BLOOD PM Comment: [place] Nurse Notified Ordering Provid er: SAKSHI CROUCH Report Released Date/Time: Nov 29, 2021 07:04 PM Reporting Lab: [facility] [address] [facility] [address] Performing Lab: [facility] [address] FINGERSTICK GLUCOSE 161 mg/dL H 70-100 Nov 29, 2021 04:18 [facility] FINGERSTICK GLUCOSE Speci men Type: BLOOD PM No comment enter ed. Ordering Provid er: TEAM,CARDS TWO Report Released Date/Time: Nov 29, 2021 08:08 PM Reporting Lab: [facility] [address] Performing Lab: [facility] [address] FINGERSTICK GLUCOSE 179 mg/dL H 70-100 Nov 29, 2021 03:26 [facility] POC ABG/ELECTROLYTES Spec imen Type: ARTERIAL BLOOD PM Comment: Sample Type = ARTERIAL Ordering Provid er: TEAM,CARDS TWO Report Released Date/Time: Nov 29, 2021 07:53 PM Reporting Lab: [facility] [address] Performing Lab: [facility] [address] POC PH 7.321 L 7.35-7.45 POC PCO2 [...] L 4.50-5.30 Nov 29, 2021 03:24 [facility] FINGERSTICK GLUCOSE Speci men Type: BLOOD PM Comment: Save R esult Ordering Provid er: TEAM,CARDS TWO Report Released Date/Time: Nov 29, 2021 08:08 PM Reporting Lab: [facility] [address] Performing Lab: [facility] [address] FINGERSTICK GLUCOSE 188 mg/dL H 70-100 Nov 29, 2021 02:06 [facility] POC ABG/ELECTROLYTES Spec imen Type: ARTERIAL BLOOD PM Comment: Sample Type = ARTERIAL Ordering Provid er: IRENE BURNS TWO Report Released Date/Time: Nov 29, 2021 07:53 PM Reporting Lab: [facility] [address] Performing Lab: [facility] [address] POC PH 7.313 L 7.35-7.45 POC PCO2 [...] L 4.50-5.30 Nov 29, 2021 02:04 [facility] FINGERSTICK GLUCOSE Speci men Type: BLOOD PM Comment: Save R esult Ordering Provid er: IRENE BURNS TWO Report Released Date/Time: Nov 29, 2021 08:08 PM Reporting Lab: [facility] [address] Performing Lab: [facility] [address] FINGERSTICK GLUCOSE 236 mg/dL H 70-100 Nov 29, 2021 01:52 PM [facility] POC ACT Specim en Type: BLOOD No comment enter ed. Ordering Provid er: IRENE BURNS TWO Report Released Date/Time: Dec 03, 2021 01:31 PM Reporting Lab: [facility] [address] Performing Lab: [facility] [address] POC ACT 135 s 84-139 Nov 29, 2021 01:16 PM [facility] POC ACT Specim en Type: BLOOD No comment enter ed. Ordering Provid er: IRENE BURNS TWO Report Released Date/Time: Dec 03, 2021 01:30 PM Reporting Lab: [facility] I [facility] [address] Performing Lab: [facility] [place] [address] [facility] [address] POC ACT 355 s 84-139 Nov 29, 2021 12:49 PM [facility] POC ACT Specim en Type: BLOOD No comment enter ed. Ordering Provid er: IRENE BURNS TWO Report Released Date/Time: Dec 03, 2021 01:30 PM Reporting Lab: [facility] [address] Performing Lab: [facility] [address] POC ACT 367 s 84-139 Nov 29, 2021 12:48 [facility] POC ABG/ELECTROLYTES Spec imen Type: ARTERIAL BLOOD PM Comment: Sample Type = ARTERIAL Ordering Provid er: TEAMCARDS TWO Report Released Date/Time: Nov 29, 2021 07:53 PM Reporting Lab: [facility] [address] Performing Lab: [facility] [address] POC PH 7.289 L 7.35-7.45 POC PCO2 [...] mg/dL 4.50-5.30 Nov 29, 2021 12:45 [facility] FINGERSTICK GLUCOSE Speci men Type: BLOOD PM Comment: Save R esult Ordering Provid er: TEAMCARDS TWO Report Released Date/Time: Nov 29, 2021 08:08 PM Reporting Lab: [facility] [address] [facility] [address] Performing Lab: [facility] [address] FINGERSTICK GLUCOSE 186 mg/dL H 70-100 Nov 29, 2021 12:26 PM [facility] POC ACT Specim en Type: BLOOD No comment enter ed. Ordering Provid er: IRENE BURNS Report Released Date/Time: Dec 03, 2021 01:30 PM Reporting Lab: [facility] [address] [facility] [address] Performing Lab: [facility] [address] [facility] [address] POC ACT 367 s 84-139 Nov 29, 2021 11:58 AM [facility] POC ACT Specim en Type: BLOOD No comment enter ed. Ordering Provid er: IRENE BURNS Report Released Date/Time: Dec 03, 2021 01:30 PM Reporting Lab: [facility] [address] [facility] [address] Performing Lab: [facility] [address] [facility] [address] POC ACT 338 s 84-139 Nov 29, 2021 11:53 [facility] FINGERSTICK GLUCOSE Speci men Type: BLOOD AM Comment: Save R esult Ordering Provid er: IRENE BURNS Report Released Date/Time: Nov 29, 2021 08:08 PM Reporting Lab: [facility] [address] [facility] [address] Performing Lab: [facility] [address] [facility] [address] FINGERSTICK GLUCOSE 225 mg/dL H 70-100 Nov 29, 2021 11:30 AM [facility] POC ACT Specim en Type: BLOOD No comment enter ed. Ordering Provid er: IRENE BURNS Report Released Date/Time: Dec 03, 2021 01:30 PM Reporting Lab: [facility] [address] [facility] [address] Performing Lab: [facility] [address] [facility] [address] POC ACT 355 s 84-139 Nov 29, 2021 11:26 [facility] POC ABG/ELECTROLYTES Spec imen Type: ARTERIAL BLOOD AM Comment: Sample Type = ARTERIAL Ordering Provid er: IRENE BURNS TWO Report Released Date/Time: Nov 29, 2021 07:53 PM Reporting Lab: [facility] [address] [facility] [address] Performing Lab: [facility] [address] [facility] [address] POC PH 7.317 L 7.35-7.45 POC PCO2 [...] mg/dL 4.50-5.30 Nov 29, 2021 11:06 [facility] FINGERSTICK GLUCOSE Speci men Type: BLOOD AM No comment enter ed. Ordering Provid er: IRENE BURNS Report Released Date/Time: Nov 29, 2021 08:08 PM Reporting Lab: [facility] [address] [facility] [address] Performing Lab: [facility] [address] [facility] [address] FINGERSTICK GLUCOSE 221 mg/dL H 70-100 Nov 29, 2021 11:02 AM [facility] POC ACT Specim en Type: BLOOD No comment enter ed. Ordering Provid er: IRENE BURNS TWO Report Released Date/Time: Dec 03, 2021 01:30 PM Reporting Lab: [facility] [address] [facility] [address] Performing Lab: [facility] [address] [facility] [address] POC ACT 294 s 84-139 Nov 29, 2021 10:26 AM [facility] POC ACT Specim en Type: BLOOD No comment enter ed. Ordering Provid er: IRENE BURNS TWO Report Released Date/Time: Dec 03, 2021 01:30 PM Reporting Lab: [facility] [address] [facility] [address] Performing Lab: [facility] [address] [facility] [address] POC ACT 329 s 84-139 Nov 29, 2021 10:06 AM [facility] POC ACT Specim en Type: BLOOD No comment enter ed. Ordering Provid er: IRENE BURNS TWO Report Released Date/Time: Dec 03, 2021 01:30 PM Reporting Lab: [facility] [address] [facility] [address] Performing Lab: [facility] [address] [facility] [address] POC ACT 312 s 84-139 Nov 29, 2021 09:58 [facility] POC ABG/ELECTROLYTES Spec imen Type: ARTERIAL BLOOD AM Comment: Sample Type = ARTERIAL Ordering Provid er: IRENE BURNS TWO Report Released Date/Time: Nov 29, 2021 07:53 PM Reporting Lab: [facility] [address] [facility] [address] Performing Lab: [facility] [address] [facility] [address] POC PH 7.334 L 7.35-7.45 POC PCO2 [...] mg/dL 4.50-5.30 Nov 29, 2021 09:56 [facility] FINGERSTICK GLUCOSE Speci men Type: BLOOD AM No comment enter ed. Ordering Provid er: IRENE BURNS TWO Report Released Date/Time: Nov 29, 2021 08:08 PM Reporting Lab: [facility] [address] [facility] [address] Performing Lab: [facility] [address] [facility] [address] FINGERSTICK GLUCOSE 194 mg/dL H 70-100 Nov 29, 2021 09:45 AM [facility] POC ACT Specim en Type: BLOOD No comment enter ed. Ordering Provid er: IRENE BURNS TWO Report Released Date/Time: Dec 03, 2021 01:30 PM Reporting Lab: [facility] [address] [facility] [address] Performing Lab: [facility] [address] [facility] [address] POC ACT 269 s 84-139 Nov 29, 2021 08:59 AM [facility] POC ACT Specim en Type: BLOOD No comment enter ed. Ordering Provid er: IRENE BURNS TWO Report Released Date/Time: Dec 03, 2021 01:30 PM Reporting Lab: [facility] [address] [facility] [address] Performing Lab: [facility] [address] [facility] [address] POC ACT 135 s 84-139 Nov 29, 2021 [facility] COVID-19 AND FLU/RSV Specime n Type: NASOPHARYNGEAL 07:05 AM DIAG PANEL(CEPHEID) Comment: [employer] GeneXpert (618) Ordering Provid er: KATHERINE FIGUEROA Report Released Date/Time: Oct 29, 2021 12:22 PM Reporting Lab: [facility] [address] Performing Lab: [facility] [address] COVID-19 (CEPHEID) Not Detected Not Dete cted INFLUENZA A (PCR) Not Detected Not Detec susanne INFLUENZA B (PCR) Not Detected Not Detec susanne RSV (PCR) Not Detected Not Detected Nov 29, 2021 [facility] BASIC METABOLIC Specimen Typ e: PLASMA 06:38 AM PANEL+MG No comment enter ed. Ordering Provid er: KATHERINE FIGUEROA Report Released Date/Time: Oct 29, 2021 12:22 PM Reporting Lab: [facility] [address] Performing Lab: [facility] [address] CREATININE 1.4 mg/dL H 0.7-1.2 UREA NITROGEN 23 mg/dL 8-26 GLUCOSE 201 mg/dL H 74-100 SODIUM 143 mmol/L 136-145 POTASSIUM 4.3 mmol/L 3.5-5.1 CHLORIDE 108 mmol/L H 98-107 CO2 28 mmol/L 22-29 CALCIUM 9.9 mg/dL 8.4-10.2 MAGNESIUM 1.9 mg/dL 1.6-2.6 ANION GAP 7 mmol/L 5-15 CREAT EGFR(CKD-EPI) 53 L >60 Nov 29, 2021 06:38 [facility] CBC Specimen Type: BLOOD AM No comment enter ed. Ordering Provid er: KATHERINE FIGUEROA Report Released Date/Time: Oct 29, 2021 12:22 PM Reporting Lab: [facility] [address] Performing Lab: [facility] [address] WBC 7.40 10*3/uL 4.0-11.0 RBC 5.17 10*6/uL 4.6-6.2 HGB 17.6 g/dL 13.5-17.9 HCT 52.7 41-54 MCV 101.9 fL H 80-100 MCH 34.0 pg H 27-33 MCHC 33.4 g/dL 32.0-37.5 PLT 88 10*3/uL L 150-400 MPV 14.3 fL H 7.4-10.4 RDW 14.4 11.5-14.5 IPF 18.0 H 0-10 Nov 29, 2021 [facility] PROTHROMBIN Specimen Typ e: PLASMA 06:38 AM TIME/INR No comment enter ed. Ordering Provid er: KATHERINE FIGUEROA Report Released Date/Time: Oct 29, 2021 12:22 PM Reporting Lab: [facility] [address] Performing Lab: [facility] [address] .INR 1.1 0.8-1.1 .PT 13.1 s H 9.4-12.5 Nov 29, 2021 [facility] ACT PART Specimen Typ e: PLASMA 06:38 AM THROMBO TIME No comment enter ed. Ordering Provid er: KATHERINE FIGUEROA Report Released Date/Time: Oct 29, 2021 12:22 PM Reporting Lab: [facility] [address] [facility] [address] Performing Lab: [facility] [address] [facility] [address] APTT 33.3 s 25.1-36.5 Social History: Smoking [...] Comment Facility Nov 29, 2021 08:36 PM [facility] TOBACCO USE CURRENT NRT [facility] ACCEPT Tobacco Use History This section includes a history of the smoking, or tobacco- related health factors, that were collected on or before the date of the Encounter. The data comes from the [place] facility where the Encounter took place. 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 [facility] Nov 15, 2020 10:00 AM VA-TOBACCO USE MED NO [place] [facility] Nov 15, 2020 10:00 AM VA-TOBACCO USER EVERY DAY [facility] Jun 21, 2019 02:29 PM VA-TOBACCO USE 30 YEARS OR MORE [facility] Jun 21, 2019 02:29 PM VA-TOBACCO USE ADVICE [place] [facility] Jun 21, 2019 02:29 PM 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 [facility] Jun 21, 2019 02:29 PM VA-TOBACCO USE MED NO [place] [facility] Jun 21, 2019 02:29 PM VA-TOBACCO USE WI 30 MIN OF WAKEUP [facility] Jun 21, 2019 02:29 PM VA-TOBACCO USER EVERY DAY [facility] Jun 09, 2018 03:48 PM VA-TOBACCO USE 30 YEARS OR MORE [facility] Jun 09, 2018 03:48 PM VA-TOBACCO USE ADVICE [place] [facility] Jun 09, 2018 03:48 PM 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 [facility] Jun 09, 2018 03:48 PM VA-TOBACCO USE MED NO [place] [facility] Jun 09, 2018 03:48 PM VA-TOBACCO USE [place] 30 MIN OF WAKEUP [facility] Jun 09, 2018 03:48 PM VA-TOBACCO USER EVERY DAY [facility] Jun 20, 2017 07:53 AM CURRENT TOBACCO USER [facility] Jun 19, 2016 08:41 AM CURRENT TOBACCO USER [facility] Jun 21, 2015 08:15 AM CURRENT TOBACCO USER [facility] Mar 22, 2014 10:03 AM CURRENT TOBACCO USER [facility] Mar 25, 2013 11:01 AM CURRENT TOBACCO USER [facility] Feb 05, 2012 08:55 AM CURRENT TOBACCO USER [facility] January 01, 2011 09:26 AM CURRENT TOBACCO USER [facility] Mar 07, 2010 10:02 AM CURRENT TOBACCO USER [facility] Feb 21, 2009 08:17 AM CURRENT TOBACCO USER [facility] Nov 06, 2007 10:02 AM CURRENT TOBACCO USER [facility] January 02, 2007 10:33 AM CURRENT TOBACCO USER [facility] Advance Directives: All historical and current [...] 06, 2005 ADVANCE DIRECTIVE GANESH RODRIGUEZ [facility] Radiology Reports: +/- 30 days [...] VIEWS PA AND LAT: MONET LUDWIG [facility] PAUL MICHELE [id number] -[birth year] 9 M Exm Date: NOV 30, 2021@07:05 Req Phys: CHERRY MENDOZA Pat Loc: 3LSOB/ 2@08:05 Img Loc: MAIN X-RAY Service: zzcard sect (Case [id number] COMPLETE) CHEST 2 VIEWS PA AND LAT (R AD Detailed) CPT:55366 Reason for Study: s/p upgrade ICD adding an A l ead Clinical History: Post ICD or Pacemaker: Verify Lead Placement. [place] IS NOT under investigation for COVID-19 or is COVID-19 negative s/p upgrade ICD adding an A lead Responsible pr ovider name and phone number to notify for critical findings if other than user placing the order and pager listed below: User placing orders pager: [phone] LAST CREATININE 1.4 H (11/29/21) Report Status: Verified Date Reported: NOV 30, 2021 Date Verified: NOV 30, 2021 Box Inspector E-Sig:/[email or web address] [email or web address] MD, FACR, C CD Report: [...] [facility] PAUL MICHELE [id number] -[birth year] 9 M Exm Date: NOV 29, 2021@18:25 Req Phys: CHERRY MENDOZA Loc: [facility] [address] [facility] (Req'g Loc) Img Loc: MAIN X-RAY Service: Unknown (Case [id number] COMPLETE) CHEST 1 VIEW (RAD Detailed) CPT:16084 Reason for Study: s/p upgrade ICD adding [...] pager listed below: User placing orders pager: [phone] LAST CREATININE 1.4 H (11/29/21) Report Status: Verified Date Reported: NOV 29, 2021 Date Verified: NOV 29, 2021 Box Inspector E-Sig:/[email or web address] DAVIDSON MD Report: DATE/TIME REGISTERED: 11/29/2021 [...] Primary Interpreting Staff: MAGDALENE DAVIDSON MD, RADIOLOGIST (Box Inspector) /LUAN
--- OUTSIDE RECORDS SUMMARY | 2022-04-02 16:11 | XMS_ITS ---
HOSPITALIZATION [facility] Encounter Summary Created on:November 30, 2021 Patient:PAUL MICHELE Sex:Male :1945 Author Organization [facility] Address [address] [place], [place] [id number] Care Team Providers Name Role Phone WILLA [...] MEDICARE MEDICARE PART Jun 25, PART B [id number] Saumya QUINONES PATIENT (WNR) (M) B 2011 78A 0 AVID MEDICARE MEDICARE PART Sep 25, PART A [id number] Saumya QUINONES PATIENT (WNR) (M) A 2009 78A 0 AVID MEDICARE MEDICARE PART Sep 25, PART A [id number] Saumya MICHELE (WNR) (M) A 2009 78A [id number] AVID MEDICARE MEDICARE PART Sep 25, PART B [id number] Saumya MICHELE (WNR) (M) B 2009 [id number] [id number] AVID Selected Encounter This section includes the information on record at [place] for the Encounter. Date/Time Encounter Type Encounter Description Reason Provider Source Nov 29, 2021 07:43 Inpatient Visit HOSPITALIZATION TEAM,CA MICAH TWO PM [facility] Encounter Template Text not used by [place] Assessments - Encounter Diagnoses This section includes the primary and secondary diagnoses documented for the Encounter. Date/Time Primary/Secondary Diagnosis Name Provider Source Diagnosis Nov 30, 2021 Diagnosis for Length of Paroxysmal atrial [facility] 01:36 PM Stay fibrillation [facility] Plan of Treatment: Future Appointments (+ 6 months) and Future Tests (+/- 45 days) The Plan of Treatment section includes future care activities for the patient from all [place] treatmentfacilities. This section includes future appointments and [...] 2021 09:30 AM AMBULATORY - NONE [facility] January 07, 2022 01:30 PM AMBULATORY - MEDICINE [facility] Feb 05, 2022 07:00 AM AMBULATORY - [facility] Feb 07, 2022 09:30 AM AMBULATORY [facility] Feb 13, 2022 10:00 AM AMBULATORY [facility] Mar 21, 2022 09:30 AM [...] TYPE & SCREEN - LA B [facility] Order BLOOD SP Dec 15, 2021 12:00 AM Laboratory - Chemistry BASIC METABOLIC MIN [facility] Order PANEL+MG PLASMA SP Lab [...] Range Comment Nov 30, 2021 11:26 [facility] FINGERSTICK GLUCOSE Speci men Type: BLOOD AM Comment: Save R pranav Nurse Notified Ordering Provid er: TEAM,CARDS TWO Report Released Date/Time: Nov 30, 2021 11:46 AM Reporting Lab: [facility] [address] [facility] [address] Performing Lab: [facility] [address] [facility] [address] FINGERSTICK GLUCOSE 284 mg/dL H 70-100 Nov 30, 2021 09:47 AM [facility] ALBUMIN Specim en Type: PLASMA No comment enter ed. Ordering Provid er: ELIUD DINERO Report Released Date/Time: Nov 29, 2021 07:53 PM Reporting Lab: [facility] [address] [facility] [address] Performing Lab: [facility] [address] [facility] [address] ALBUMIN 3.4 g/dL L 3.5-5.2 Nov 30, 2021 09:47 [facility] BASIC METABOLIC Specimen Type: PLASMA AM PANEL+MG No comment enter ed. Ordering Provid er: ANGIE SIMS Report Released Date/Time: Nov 29, 2021 08:12 PM Reporting Lab: [facility] [address] [facility]: [facility] [address] CREATININE 1.2 mg/dL 0.7-1.2 UREA NITROGEN 18 mg/dL 8-26 GLUCOSE 342 mg/dL H 74-100 SODIUM 141 mmol/L 136-145 POTASSIUM 4.3 mmol/L 3.5-5.1 CHLORIDE 108 mmol/L H 98-107 CO2 26 mmol/L 22-29 CALCIUM 8.6 mg/dL 8.4-10.2 MAGNESIUM 1.5 mg/dL L 1.6-2.6 ANION GAP 7 mmol/L 5-15 CREAT EGFR(CKD-EPI) 63 >60 Nov 30, 2021 09:46 AM [facility] CBC Specim en Type: BLOOD No comment enter ed. Ordering Provid er: ANGIE SIMS Report Released Date/Time: Nov 29, 2021 08:12 PM Reporting Lab: [facility] [address] Performing Lab: [facility] [address] WBC 10.61 10*3/uL 4.0-11.0 RBC 4.33 10*6/uL L 4.6-6.2 HGB 14.6 g/dL 13.5-17.9 HCT 45.2 41-54 MCV 104.4 fL H 80-100 MCH 33.7 pg H 27-33 MCHC 32.3 g/dL 32.0-37.5 PLT 71 10*3/uL L 150-400 MPV 13.9 fL H 7.4-10.4 RDW 14.7 H 11.5-14.5 IPF 17.8 H 0-10 Nov 30, 2021 06:09 [facility] FINGERSTICK GLUCOSE Speci men Type: BLOOD AM Comment: [place] Nurse Notified Ordering Provid er: IRENE BURNS TWO Report Released Date/Time: Nov 30, 2021 06:32 AM Reporting Lab: [facility] [address] [facility] [address] Performing Lab: [facility] [address] [facility] [address] FINGERSTICK GLUCOSE 165 mg/dL H 70-100 Nov 29, 2021 07:35 [facility] FINGERSTICK GLUCOSE Speci men Type: BLOOD PM Comment: [place] Nurse Notified Ordering Provid er: IRENE BURNS TWO Report Released Date/Time: Nov 29, 2021 07:48 PM Reporting Lab: [facility] [address] [facility] [address] Performing Lab: [facility] [address] [facility] [address] FINGERSTICK GLUCOSE 160 mg/dL H 70-100 Nov 29, 2021 06:52 [facility] FINGERSTICK GLUCOSE Speci men Type: BLOOD PM Comment: [place] Nurse Notified Ordering Provid er: SAKSHI CROUCH Report Released Date/Time: Nov 29, 2021 07:04 PM Reporting Lab: [facility] [address] [facility] [address] Performing Lab: [facility] [address] [facility] [address] FINGERSTICK GLUCOSE 161 mg/dL H 70-100 Nov 29, 2021 04:18 [facility] FINGERSTICK GLUCOSE Speci men Type: BLOOD PM No comment enter ed. Ordering Provid er: IRENE BURNS TWO Report Released Date/Time: Nov 29, 2021 08:08 PM Reporting Lab: [facility] [address] [facility] [address] Performing Lab: [facility] [address] [facility] [address] FINGERSTICK GLUCOSE 179 mg/dL H 70-100 Nov 29, 2021 03:26 [facility] POC ABG/ELECTROLYTES Spec imen Type: ARTERIAL BLOOD PM Comment: Sample Type = ARTERIAL Ordering Provid er: TEAM,CARDS TWO Report Released Date/Time: Nov 29, 2021 07:53 PM Reporting Lab: [facility] [address] [facility] [address] Performing Lab: [facility] [address] [facility] [address] POC PH 7.321 L 7.35-7.45 POC PCO2 [...] L 4.50-5.30 Nov 29, 2021 03:24 [facility] FINGERSTICK GLUCOSE Speci men Type: BLOOD PM Comment: Save R esult Ordering Provid er: TEAM,CARDS TWO Report Released Date/Time: Nov 29, 2021 08:08 PM Reporting Lab: [facility] [address] Performing Lab: [facility] [address] FINGERSTICK GLUCOSE 188 mg/dL H 70-100 Nov 29, 2021 02:06 [facility] POC ABG/ELECTROLYTES Spec imen Type: ARTERIAL BLOOD PM Comment: Sample Type = ARTERIAL Ordering Provid er: TEAM,CARDS TWO Report Released Date/Time: Nov 29, 2021 07:53 PM Reporting Lab: [facility] [address] [facility]: [facility] [address] POC PH 7.313 L 7.35-7.45 POC PCO2 [...] L 4.50-5.30 Nov 29, 2021 02:04 [facility] FINGERSTICK GLUCOSE Speci men Type: BLOOD PM Comment: Save R esult Ordering Provid er: IRENE BURNS TWO Report Released Date/Time: Nov 29, 2021 08:08 PM Reporting Lab: [facility] [address] [facility] [address] Performing Lab: [facility] [address] [facility] [address] FINGERSTICK GLUCOSE 236 mg/dL H 70-100 Nov 29, 2021 01:52 PM [facility] POC ACT Specim en Type: BLOOD No comment enter ed. Ordering Provid er: IRENE BURNS TWO Report Released Date/Time: Dec 03, 2021 01:31 PM Reporting Lab: [facility] [address] [facility] [address] Performing Lab: [facility] [address] [facility] [address] POC ACT 135 s 84-139 Nov 29, 2021 01:16 PM [facility] POC ACT Specim en Type: BLOOD No comment enter ed. Ordering Provid er: IRENE BURNS TWO Report Released Date/Time: Dec 03, 2021 01:30 PM Reporting Lab: [facility] [address] [facility] [address] Performing Lab: [facility] [address] [facility] [address] POC ACT 355 s 84-139 Nov 29, 2021 12:49 PM [facility] POC ACT Specim en Type: BLOOD No comment enter ed. Ordering Provid er: IRENE BURNS TWO Report Released Date/Time: Dec 03, 2021 01:30 PM Reporting Lab: [facility] [address] [facility] [address] Performing Lab: [facility] [address] [facility] [address] POC ACT 367 s 84-139 Nov 29, 2021 12:48 [facility] POC ABG/ELECTROLYTES Spec imen Type: ARTERIAL BLOOD PM Comment: Sample Type = ARTERIAL Ordering Provid er: IRENE BURNS Report Released Date/Time: Nov 29, 2021 07:53 PM Reporting Lab: [facility] [address] [facility] [address] Performing Lab: [facility] [address] [facility] [address] POC PH 7.289 L 7.35-7.45 POC PCO2 [...] mg/dL 4.50-5.30 Nov 29, 2021 12:45 [facility] FINGERSTICK GLUCOSE Speci men Type: BLOOD PM Comment: Save R esult Ordering Provid er: IRENE BURNS TWO Report Released Date/Time: Nov 29, 2021 08:08 PM Reporting Lab: [facility] [address] [facility] [address] Performing Lab: [facility] [address] [facility] [address] FINGERSTICK GLUCOSE 186 mg/dL H 70-100 Nov 29, 2021 12:26 PM [facility] POC ACT Specim en Type: BLOOD No comment enter ed. Ordering Provid er: IRENE BURNS Report Released Date/Time: Dec 03, 2021 01:30 PM Reporting Lab: [facility] [address] [facility] [address] Performing Lab: [facility] [address] [facility] [address] POC ACT 367 s 84-139 Nov 29, 2021 11:58 AM [facility] POC ACT Specim en Type: BLOOD No comment enter ed. Ordering Provid er: IRENE BURNS TWO Report Released Date/Time: Dec 03, 2021 01:30 PM Reporting Lab: [facility] [address] [facility] [address] Performing Lab: [facility] [address] [facility] [address] POC ACT 338 s 84-139 Nov 29, 2021 11:53 [facility] FINGERSTICK GLUCOSE Speci men Type: BLOOD AM Comment: Save R esult Ordering Provid er: IRENE BURNS Report Released Date/Time: Nov 29, 2021 08:08 PM Reporting Lab: [facility] [address] [facility] [address] Performing Lab: [facility] [address] [facility] [address] FINGERSTICK GLUCOSE 225 mg/dL H 70-100 Nov 29, 2021 11:30 AM [facility] POC ACT Specim en Type: BLOOD No comment enter ed. Ordering Provid er: IRENE BURNS TWO Report Released Date/Time: Dec 03, 2021 01:30 PM Reporting Lab: [facility] [address] Performing Lab: [facility] [address] [facility] [address] POC ACT 355 s 84-139 Nov 29, 2021 11:26 [facility] POC ABG/ELECTROLYTES Spec imen Type: ARTERIAL BLOOD AM Comment: Sample Type = ARTERIAL Ordering Provid er: IRENE BURNS Report Released Date/Time: Nov 29, 2021 07:53 PM Reporting Lab: [facility] [facility] [address] Performing Lab: [facility] [address] [facility] [address] POC PH 7.317 L 7.35-7.45 POC PCO2 [...] mg/dL 4.50-5.30 Nov 29, 2021 11:06 [facility] FINGERSTICK GLUCOSE Speci men Type: BLOOD AM No comment enter ed. Ordering Provid er: IRENE BURNS Report Released Date/Time: Nov 29, 2021 08:08 PM Reporting Lab: [facility] [address] [facility] [address] Performing Lab: [facility] [address] [facility] [address] FINGERSTICK GLUCOSE 221 mg/dL H 70-100 Nov 29, 2021 11:02 AM [facility] POC ACT Specim en Type: BLOOD No comment enter ed. Ordering Provid er: IRENE BURNS Report Released Date/Time: Dec 03, 2021 01:30 PM Reporting Lab: [facility] [address] [facility] [address] Performing Lab: [facility] [address] [facility] [address] POC ACT 294 s 84-139 Nov 29, 2021 10:26 AM [facility] POC ACT Specim en Type: BLOOD No comment enter ed. Ordering Provid er: IRENE BURNS Report Released Date/Time: Dec 03, 2021 01:30 PM Reporting Lab: [facility] [address] [facility] [address] Performing Lab: [facility] [address] [facility] [address] POC ACT 329 s 84-139 Nov 29, 2021 10:06 AM [facility] POC ACT Specim en Type: BLOOD No comment enter ed. Ordering Provid er: IRENE BURNS Report Released Date/Time: Dec 03, 2021 01:30 PM Reporting Lab: [facility] [address] [facility] [address] Performing Lab: [facility] [address] [facility] [address] POC ACT 312 s 84-139 Nov 29, 2021 09:58 [facility] POC ABG/ELECTROLYTES Spec imen Type: ARTERIAL BLOOD AM Comment: Sample Type = ARTERIAL Ordering Provid er: IRENE BURNS Report Released Date/Time: Nov 29, 2021 07:53 PM Reporting Lab: [facility] [address] [facility] [address] Performing Lab: [facility] [address] [facility] [address] POC PH 7.334 L 7.35-7.45 POC PCO2 [...] mg/dL 4.50-5.30 Nov 29, 2021 09:56 [facility] FINGERSTICK GLUCOSE Speci men Type: BLOOD AM No comment enter ed. Ordering Provid er: IRENE BURNS Report Released Date/Time: Nov 29, 2021 08:08 PM Reporting Lab: [facility] [address] [facility] [address] Performing Lab: [facility] [address] [facility] [address] FINGERSTICK GLUCOSE 194 mg/dL H 70-100 Nov 29, 2021 09:45 AM [facility] POC ACT Specim en Type: BLOOD No comment enter ed. Ordering Provid er: IRENE BURNS Report Released Date/Time: Dec 03, 2021 01:30 PM Reporting Lab: [facility] [address] [facility] [address] Performing Lab: [facility] [address] [facility] [address] POC ACT 269 s 84-139 Nov 29, 2021 08:59 AM [facility] POC ACT Specim en Type: BLOOD No comment enter ed. Ordering Provid er: IRENE BURNS Report Released Date/Time: Dec 03, 2021 01:30 PM Reporting Lab: [facility] [address] [facility] [address] Performing Lab: [facility] [address] [facility] [address] POC ACT 135 s 84-139 Nov 29, 2021 [facility] COVID-19 AND FLU/RSV Specime n Type: NASOPHARYNGEAL 07:05 AM DIAG PANEL(CEPHEID) Comment: Ce pheid GeneXpert (618) Ordering Provid er: KATHERINE FIGUEROA Report Released Date/Time: Oct 29, 2021 12:22 PM Reporting Lab: [facility] [address] [facility] [address] Performing Lab: [facility] [address] [facility] [address] COVID-19 (CEPHEID) Not Detected Not Dete cted INFLUENZA A (PCR) Not Detected Not Detec susanne INFLUENZA B (PCR) Not Detected Not Detec susanne RSV (PCR) Not Detected Not Detected Nov 29, 2021 [facility] BASIC METABOLIC Specimen Typ e: PLASMA 06:38 AM PANEL+MG No comment enter ed. Ordering Provid er: KATHERINE FIGUEROA Report Released Date/Time: Oct 29, 2021 12:22 PM Reporting Lab: [facility] [address] Performing Lab: [facility] [address] CREATININE 1.4 mg/dL H 0.7-1.2 UREA NITROGEN 23 mg/dL 8-26 GLUCOSE 201 mg/dL H 74-100 SODIUM 143 mmol/L 136-145 POTASSIUM 4.3 mmol/L 3.5-5.1 CHLORIDE 108 mmol/L H 98-107 CO2 28 mmol/L 22-29 CALCIUM 9.9 mg/dL 8.4-10.2 MAGNESIUM 1.9 mg/dL 1.6-2.6 ANION GAP 7 mmol/L 5-15 CREAT EGFR(CKD-EPI) 53 L >60 Nov 29, 2021 06:38 [facility] CBC Specimen Type: BLOOD AM No comment enter ed. Ordering Provid er: KATHERINE FIGUEROA Report Released Date/Time: Oct 29, 2021 12:22 PM Reporting Lab: [facility] [address] Performing Lab: [facility] [address] WBC 7.40 10*3/uL 4.0-11.0 RBC 5.17 10*6/uL 4.6-6.2 HGB 17.6 g/dL 13.5-17.9 HCT 52.7 41-54 MCV 101.9 fL H 80-100 MCH 34.0 pg H 27-33 MCHC 33.4 g/dL 32.0-37.5 PLT 88 10*3/uL L 150-400 MPV 14.3 fL H 7.4-10.4 RDW 14.4 11.5-14.5 IPF 18.0 H 0-10 Nov 29, 2021 [facility] PROTHROMBIN Specimen Typ e: PLASMA 06:38 AM TIME/INR No comment enter ed. Ordering Provid er: KATHERINE FIGUEROA Report Released Date/Time: Oct 29, 2021 12:22 PM Reporting Lab: [facility] [address] [facility] [address] Performing Lab: [facility] [address] [facility] [address] .INR 1.1 0.8-1.1 .PT 13.1 s H 9.4-12.5 Nov 29, 2021 [facility] ACT PART Specimen Typ e: PLASMA 06:38 AM THROMBO TIME No comment enter ed. Ordering Provid er: KATHERINE FIGUEROA Report Released Date/Time: Oct 29, 2021 12:22 PM Reporting Lab: [facility] [address] [facility] [address] Performing Lab: [facility] [address] [facility] [address] APTT 33.3 s 25.1-36.5 Vital Signs: All taken on the encounter date This section contains inpatient and outpatient Vital Signs collected on the date of the Encounter. Date/Time Temperature Pulse Blood Respiratory SP02 Pain Height Weight Axel dy Source Pressure Rate Mass Index Nov 29, 98.3 F 96 99/66 18 /min 90 % 0 [place] 2021 11:07 /min mm[Hg] [facility] Nov 29 96 % [place] 2021 08:40 /min [facility] Nov 29, 232 lb 30 [place] [facility] 08:38 [facility] Nov 29 112/73 97 % [place] 2021 08:35 /min mm[Hg] [facility] Nov 29, 113/69 90 % [place] 2021 08:15 /min mm[Hg] [facility] Social History: Smoking Status (Most current) [...] 08:36 PM [facility] TOBACCO USE CURRENT NRT [facility] ACCEPT Tobacco Use History This section includes a history of the smoking, or tobacco- related health factors, that were collected on or before the date of the Encounter. The data comes from the [place] facility where the Encounter took place. Date/Time Smoking Status/Tobacco Use Comment Nicola matta Mar 20, 2021 11:21 AM [facility] TOBACCO USE CURRENT NRT [facility] DECLINE Nov 15, 2020 10:00 AM VA-TOBACCO DOESNT USE WI 30 MIN [facility] WAKEUP Nov 15, 2020 10:00 AM VA-TOBACCO USE 30 YEARS OR MORE [facility] Nov 15, 2020 10:00 AM [facility] Nov 15, 2020 10:00 AM VA-TOBACCO USE SPARES SCHEDULER NO [facility] Nov 15, 2020 10:00 AM [facility]ACCO USE MED NO [facility] Nov 15, 2020 10:00 AM VA-TOBACCO USER EVERY DAY [facility] Jun 21, 2019 02:29 PM VA-TOBACCO USE 30 YEARS OR MORE [facility] Jun 21, 2019 02:29 PM VA-TOBACCO USE ADVICE [facility] Jun 21, 2019 02:29 PM VA-TOBACCO USE SPARES SCHEDULER NO [facility] Jun 21, 2019 02:29 PM VA-TOBACCO USE MED NO [facility] Jun 21, 2019 02:29 PM VA-TOBACCO USE WI 30 MIN OF WAKEUP [facility] Jun 21, 2019 02:29 PM VA-TOBACCO USER EVERY DAY [facility] Jun 09, 2018 03:48 PM VA-TOBACCO USE 30 YEARS OR MORE [facility] Jun 09, 2018 03:48 PM VA-TOBACCO USE ADVICE [facility] Jun 09, 2018 03:48 PM VA-TOBACCO USE SPARES SCHEDULER NO [facility] Jun 09, 2018 03:48 PM VA-TOBACCO USE MED NO [facility] Jun 09, 2018 03:48 PM VA-TOBACCO USE WI 30 MIN OF WAKEUP [facility] Jun 09, 2018 03:48 PM VA-TOBACCO USER EVERY DAY [facility] Jun 20, 2017 07:53 AM CURRENT TOBACCO USER [facility] Jun 19, 2016 08:41 AM CURRENT TOBACCO USER [facility] Jun 21, 2015 08:15 AM CURRENT TOBACCO USER [facility] Mar 22, 2014 10:03 AM CURRENT TOBACCO USER [facility] Mar 25, 2013 11:01 AM CURRENT TOBACCO USER [facility] Feb 05, 2012 08:55 AM CURRENT TOBACCO USER [facility] January 01, 2011 09:26 AM CURRENT TOBACCO USER [facility] Mar 07, 2010 10:02 AM CURRENT TOBACCO USER [facility] Feb 21, 2009 08:17 AM CURRENT TOBACCO USER [facility] Nov 06, 2007 10:02 AM CURRENT TOBACCO USER [facility] January 02, 2007 10:33 AM CURRENT TOBACCO USER [facility] Advance Directives: All historical and current [...] 06, 2005 ADVANCE DIRECTIVE GANESH RODRIGUEZ [facility] Radiology Reports: +/- 30 days [...] VIEWS PA AND LAT: MONET LUDWIG [facility] PAUL MICHELE [id number] -[birth year] M Exm Date: NOV 30, 2021@07:05 Req Phys: CHERRY MENDOZA Loc: 3LSOB/ 2@08:05 Img Loc: MAIN X-RAY Service: zzcard sect (Case [id number] COMPLETE) CHEST 2 VIEWS PA AND LAT (R AD Detailed) CPT:88812 Reason for Study: s/p upgrade ICD adding an A l ead Clinical History: Post ICD or Pacemaker: Verify Lead Placement. [place] IS NOT under investigation for COVID-19 or is COVID-19 negative s/p upgrade ICD adding an A lead Responsible pr ovider name and phone number to notify for critical findings if other than user placing the order and pager listed below: User placing orders pager: [phone] LAST CREATININE 1.4 H (11/29/21) Report Status: Verified Date Reported: NOV 30, 2021 Date Verified: NOV 30, 2021 Community Health Advisor E-Sig:/ES/MONET LUDWIG MD, FACR, C CD Report: [...] PM CHEST 1 VIEW: MAGDALENE DAVIDSON [facility] PA[place] MICHELE [id number] -[birth year] 9 M Exm Date: NOV 29, 2021@18:25 Req Phys: CHERRY MENDOZA Loc: [facility] [address] AY (Req'g Loc) Img Loc: MAIN X-RAY Service: Unknown (Case [id number] COMPLETE) CHEST 1 VIEW (RAD Detailed) CPT:49945 Reason for Study: s/p upgrade ICD adding an A l ead Clinical History: Immediate Post-Op Pacemaker/ICD placement [place] IS NOT under investigation for COVID-19 or is COVID-19 negative s/p upgrade his ICD to dual chamber (adding an A lead) Responsible provider name and phone number to n otify for critical findings if other than user placing the order a nd pager listed below: User placing orders pager: [phone] LAST CREATININE 1.4 H (11/29/21) Report Status: Verified Date Reported: NOV 29, 2021 Date Verified: NOV 29, 2021 Community Health Advisor E-Sig:/[email or web address]/MAGDALENE DAVIDSON MD Report: DATE/TIME REGISTERED: 11/29/2021 [...] Primary Interpreting Staff: MAGDALENE DAVIDSON MD, RADIOLOGIST (Community Health Advisor) /LUAN Encounter Notes: All associated encounter notes This section contains the clinical notes associated to the Encounter. Date/Time Encounter Note(s) Provider Source Nov 30, 2021 02:32 NURSING INPATIENT NOTE: MOJGAN ARAUJO [facility] LOCAL TITLE: [facility] PROGRESS NOTE STANDARD TITLE: NURSING INPATIENT NOTE DATE OF NOTE: NOV 30, 2021@14:32 ENTRY DATE: NOV 30, 2021@14:32:34 AUTHOR: MOJGAN ARAUJO EXP COSIGNER: URGENCY: STATUS: COMPLETED Nursing Shift Note Nursing care provided from [id number] Highlights from shift: Pt A&Ox3. No c/o pain and denies SOB. Bennett cat heter removed with no difficulty and voided 200ccs after. Awaiting discharge today. Dressings intact to groin and pacemaker site area. Using i mmobilzer to left arm and teaching given on restrictions with arm. Pt unde rstood. See ICCA for detailed assessment, Educa tion provided on medication/cares this shift as needed SKIN REINSPECTION/REASSESSMENT SKIN INSPECTION: Skin Color: Usual for ethnicity Skin Temperature: Warm Skin Moisture: Normal Skin Turgor: Elastic (normal/immediate) Radames Skin Assessment: The patient's Radames Scale Score is 21. [...] Adequate. Friction and shear No apparent problem. INTERVENTIONS: The pressure injury interventions were not need ed - patient/resident is not at risk. RISK FACTORS THAT INCREASE RISK FOR DEVELOPING PRESSURE INJURIES The patient/resident does not have any addition al risk factors. Localized abnormality: Other: Location(s): groin site dressings and pacemaker site dressing, rt wrist dressing Comment: CDI Skin Interventions performed this shift: Patient turned [id number] or as appropriate while in bed. Head of Bed kept below 30 degrees unless otherw ise ordered. /billy/ MOJGAN ARAUJO RN RN Signed: 11/30/2021 14:35 Nov 30, 2021 01:36 DISCHARGE SUMMARY: ANGIE SIMS [facility] LOCAL TITLE: Discharge Summary STANDARD TITLE: DISCHARGE SUMMARY DICT DATE: NOV 30, 2021@07:50 ENTRY DATE: Nov@07:50:27 DICTATED BY: ANGIE SIMS ATTENDING: VICENTE PELAEZ URGENCY: routine STATUS: COMPLETED Discharge Summary Has ADDENDA Medicine Discharge Summary DRAFT UNTIL SIGNED BY ATTENDING MEDICINE DISCHARGE SUMMARY Date of Admission: 11/29/2021 Date of Discharge: 11/30/2021 PRIMARY & SECONDARY DIAGNOSES - Atrial fibrillation s/p ablation and device up grade - CAD s/p angioplasty and CABG - HFrEF 2/2 ICM s/p ICD placement with EF 15% - Type 2 Diabetes melliltus - COPD - Neuropathy BRIEF SUMMARY OF HISTORY OF PRESENT ILLNESS: See admission history and physical for furthe r details Patient is a 76 year-old male with PMH including DM2, HTN, COPD, tobacco use, CAD s/p AK with angioplasty to RCA in 1993, s/p 3-vessel CABG 10/2010,ICM with single chamb er ICD implanted 2011 for primary prevention. In December 2020,patient was admitted to OSH with multiple ICD shocks (6) and found to be in atrial fibrillation, a new diagnosis for him. He was started on anticoagulation and rate-controlled. He also had some CHF and was diuresed. An echocardiogram was done show ing an ejection fraction of 23%. Dr. Figueroa saw patient in f/u and felt the episodes were likely inappropriate shocks due to AF with RVR, although one of the tachycardias ap peared to be possible dual tachycardia possibly triggered by ATP. Dr. Figueroa recommended dofetilide admiss ion for rhythm control ofAFib and consideration of PVI down the road. Patient was admitted 03/20-03/23/21 for dofetilide initiation - dose started at 250 mcg bid given borderline creatinine clearance. He marek erated this well and was successfully cardioverted. He unfortunately sustained an ICD shock on 03/30/21 due to VT and dofetilide was discontinued due to concern for pro-arrh ythmia. PVI was arranged. At recent EP f/u it was noted patient was havingfrequ ent PVCs on EKG and Ziopatch obtained, showing ~11% overall PVC burden. PT is here toda y for afib ablation. He underwent ablation along with the device upgrade (addition of an atrial lead). He was given IVF as well as 60 mg of lasix during the procedure. He is admitted to the cards 2 team for the overnight monitoring . Patient was assessed at bedside after the proced ure. Doing well, no pain, no chest pain, shortness of rené ath, headache, lightheadedness/dizziness, abdominal pain or back pain, nausea, leg pain/swelling. Tr emor in left hand (possibly right--not sure) for past tw o weeks. Groin sites intact. No acute complications. HOSPITAL COURSE BY PROBLEM: Patient is a 76 year-old male with PMH including DM2, HTN, COPD, tobacco use, CAD s/p AK with angioplasty to RCA in 1993, s/p 3-vessel CABG 10/2010,ICM with single chamb er ICD implanted 2011 for primary prevention, atrial fibrillation s/p dofetilide, 11% PVC burden on zio, admitted to the hospital for ablation and device upgrade. #atrial fibrillation s/p dofetilide treatment in 02/2021 #s/p ablation and device upgrade Doing well post-op, no immediate complications. CXR post-op WNL and on day of discharge stable. Patient feeling well. Groin si noy intact. EP interrogated device and made adjustments prior to discharge - Continue SOCIAL WORK INSTRUCTOR apixaban - SOCIAL WORK INSTRUCTOR metoprolol - EP post-operative instructions: - Patient instructed to remove telfa and tagade rm 24 hours post procedure on left chest. - Discussed with patient potential effects of e lectromagnetic interference with device. Patient advise d to avoid magnetic mo such as arc welding and large generators. Specific examples given to patient regarding caution to use with small magnetic mo such a s chain saws and cellular phones. Patient advised inci ryan dry for 5 days. Patient advised to report signs or symptoms of infection. Patient advised not to raise left arm above the shoulder and no lifting anything heavier than 10 lbs for the next 4-6 weeks, until he returns to clinic. He should follow-up in the EP clinic within 4-6 weeks as directed. Patient was given contact num kayli for further questions. 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 Euvolemic at discharge. On room air. Blood pressures stable. - SOCIAL WORK INSTRUCTOR Lasix - SOCIAL WORK INSTRUCTOR atorvastatin - SOCIAL WORK INSTRUCTOR empafliglozin - SOCIAL WORK INSTRUCTOR ARNI - Start spironolactone 12.5 mg daily - Discussed code status: FULL CODE #T2DM - SOCIAL WORK INSTRUCTOR glipizide - SOCIAL WORK INSTRUCTOR metformin, semiglutide #COPD - Home inhaler #Neuropathy - SOCIAL WORK INSTRUCTOR gabapentin #Chronic thrombocytopenia At baseline during admission. MEDICATION CHANGES DURING THIS HOSPITALIZATION: For a list of Discharge Medications; see the no te titled ED Medication Instruction or Rx Inpatient Me dications at Discharge Medication: Spironolactone 12.5 mg daily Change/Start/DC: Start Reason for Change/Indication: Heart failure man agement Medication: Cephalexin x2 days Change/Start/DC: Start Reason for Change/Indication: Post-operative in fection prophylaxis Otherwise resume home medications. FOLLOW UP care plan by issue: - Follow-up with PCP within 1-2 weeks for chroni c conditions. - Follow-up with EP within 4-6 weeks for device interrogation. Education: Patient instructed to remove telfa a nd tagaderm 24 hours post procedure.Discussed with patient potential effec ts of electromagnetic interference with device. Patient advise d to avoid magnetic mo such as arc welding and large generators. Specific examples given to patient regarding caution to use with small magnetic mo such a s chain saws and cellular phones. Patient advised inci ryan dry for 5 days. Patient advised to report signs or symptoms of infection. Patient advised not to raise left arm above the shoulder and no lifting anything heavier than 10 lbs for the next 4-6 weeks, until he returns to clinic. Patient was given co ntact numbers for further questions. Family will be asked to emai heri photo of site on 12/07/21 to in 7-10 days for wound check . Gomez will visist patient on 12/06 to assess wound site. Return to EP Cardiac Device Clinic (3010) in 4-6 weeks for device check and repeat wound check. VAT 10-0038 (684) 06/2001 DISPOSITION ON DISCHARGE: Home CONDITION AT DISCHARGE: Stable PERTINENT EXAM FINDINGS: Temperature: 98.3 F [36.8 C] (11/29/2021 23:07) Blood Pressure: 98/65 (11/30/2021 03:56) Pulse: 88 (11/30/2021 03:56) Respiration: 16 (11/30/2021 03:56) Pain: 0 (11/29/2021 23:07) General: Alert, NAD, lying flat in bed HEENT: PERRL, slightly tacky MM, IJ site CDI Cardio: Regular, no murmurs, no edema, pulses 2 +, radial artery site covered in pressure dressing with no blood, bilateral groin sites CDI without hematoma, swelling, bleeding Lungs: CTAB, on room air Abd: Soft, non-distended, non-tender Extrem: Moving all extremities, no edema Neuro: Slight tremor of left hand, no focal def icits PERTINENT LABS & IMAGING: CXR stable post-operatively. Hemoglobin mildly decreased. Stable thrombocytop enia. Creatinine stable. PERTINENT SOCIAL ISSUES: Lives with son and granddaughter. passed a way a year ago. > 30 minutes was spent on discharge care coordin ation for this patient. Patients plan was discussed with attending physi kianna Pelaez. Angie Sims MD-MPH Internal Medicine-Pediatrics, PGY-1 HOSPITAL ACQUIRED PNEUMONIA (HAP) HAP is defined as an inflammatory condition of t he lung parenchyma caused by infectious agents not present or incubating at the time of hospital admission; that is, conditions that develop mor e than 48 hours after admission. Did the patient develop a hospital acquired pneu monia this admission by meeting the following criteria? No /billy/ Angie Sims MD Resident Physician Signed: 11/30/2021 13:25 /billy/ VICENTE PELAEZ MD PHYSICIAN Cosigned: 12/01/2021 15:02 Receipt Acknowledged By: * AWAITING SIGNATURE * CROUCHSAKSHI 11/30/2021 ADDENDUM STATUS: COMPLETED 76-year-old man with a history of ischemic cardi omyopathy and severe left ventricular dysfunction followed by me in the art failure clinic. He had a single-chamber ICD placed years ago for primary prevention of sudden . He developed atrial fibrillation for the first time back in December 2020. He was started on dofetilide and successfully cardiover susanne. Unfortunately, he got an ICD shock for ventricular tachycardia a week lat er so the dofetilide was discontinued due to concern for proarrhythmia. Linn triana was hospitalized overnight after a scheduled admission for an A. fib/PVI ablation and an upgrade to his ICD to add an atrial lead since the goal is to reest ablish sinus rhythm. There were no immediate complications to the pro cedure. The patient is being discharged on guideline directed therapi es for his heart failure including the recent addition of spironola ctone and should have a basic metabolic panel in the next couple weeks. /billy/ VICENTE PELAEZ MD PHYSICIAN Signed: 12/01/2021 15:04 Nov 30, 2021 12:44 NURSING DISCHARGE NOTE: MOJGAN ARAUJO [facility] LOCAL TITLE: KATINA NURSING DISCHARGE SUMMARY STANDARD TITLE: NURSING DISCHARGE NOTE DATE OF NOTE: NOV 30, 2021@12:44 ENTRY DATE: NOV 30, 2021@12:44:23 AUTHOR: MOJGAN ARAUJO EXP COSIGNER: URGENCY: STATUS: COMPLETED Nursing Discharge Summary Home Discharge date and time: Nov@13:45 Accompanied by: Self, Other (specify): friend p icking up Ambulatory, Wheelchair Transportation: Other (specify): Friend Verify that the Contact Name and Phone Number a re correct: PAUL MICHELE [phone] Condition: Alert, Oriented Skin Condition: Intact Incision: No Dressings CDI Education/Teach Back Patient and/or Caregiver was given [...] NOT have an active YUVAL flag assigned. [place] /billy/ MOJGAN ARAUJO RN RN Signed: 11/30/2021 14:35 Nov 30, 2021 12:28 EDUCATION DISCHARGE NOTE: MOJGAN ARAUJO [facility] LOCAL TITLE: EDUCATION NURSING DISCHARGE [facility] STANDARD TITLE: EDUCATION DISCHARGE NOTE DATE OF NOTE: NOV 30, 2021@12:28 ENTRY DATE: NOV 30, 2021@12:28:26 AUTHOR: MOJGAN ARAUJO EXP COSIGNER: URGENCY: STATUS: COMPLETED Discharge Order : Discharge from Observation to Home Patient advised not to raise left arm above the shoulder and no lifting anything heavier th an 10 lbs for the next 4-6 weeks, until he returns to clinic. please follow up with EP in 4-6 weeks If you notice worsening chest pain, palpitation s, or shortness of breath, please come to the nearest ED for evaluation Treated for CHF this admit, h/o CHF or low EF? NO [place] Weight: Treated for Stroke/CVA/TIA this admit or h/o? No Has patient had delirium during this admission? No Delirium diagnosis upon admission? No Public Health Nurse Follow Up: Yes, Reason: med administration Follow Up Clinic Appointment:EP device clinic i n 4-6 weeks Review Outpatient Medications and Discontinue, Order New or Change No new medications or medication changes: Nursi ng, patient does not need to stop at the Outpatient Pharmacy. Nursing Order Educate patient on anticoagulation medication p rior to Discharge. Discharge Order Discharge Date: Nov Discharged to: Home Discharge Type: Hospital Discharge Provider Completing Summary: Yloi Attending Physician: Dr. Pelaez Discharge Diagnosis: atrial fibrillation Discharge Condition: Good Discharge Instructions: -please follow up with EP cardiac device clinic in 4-6 weeks for device check and repeat wound check -please continue taking cephlexin for [address] discharge (until 12/02) -please start taking spironolactone (started th is admission) Discharge Order Weight Bearing Restriction: Yes, Patient advised not to raise left arm above the shoulder and no lifting anything heavier th an 10 lbs for the next 4-6 weeks, until he returns to clinic.Patient a dvised not to raise left arm above the shoulder and no lifting anything heav Bathing Restriction: No, Activity Restriction: No, Patient advised not to raise left arm above the shoulder and no lifting anything heavier th an 10 lbs for the next 4-6 weeks, until he returns to clinic.Patient a dvised not to raise left arm above the shoulder and no lifting anything heav Diet: regular NSAID/Aspirin Restriction (MED/Date to Resume): n/a Wound Condition: Clean/Dry/Healing Oxygen Needed for Transport? No Special Transportation Needs: None IMPORTANT PHONE NUMBERS: IF YOU HAVE A LIFE THREATENING EMERGENCY CALL [phone] If you have questions about anything related to your inpatient care at the [facility] or your future care in the [facility], call the Call Center or After Hour numbers list ed below. If you receive care at another [place] facility or w ith a community provider, you will need to call them for questions about your future care. -Call Center Friday-Friday, 7:30-4:30 at or Toll Free -After Hours- toll-free -Outpatient Pharmacy - -Verification of Appointments for the following month - *'S CRISIS LINE NUMBER IS (TALK)* Discharge from ICU, Acute Care, Acute Rehab, or CLC C-SSRS Screening [place] Suicide Severity Rating Scale (C-SSRS) screener 1. [...] questions. Written education reviewed and given on: Diabetes Diabetes Self-Care Skills booklet given Exercise -Find ways to be more active Nutrition -Limit food portion sizes -Eat more vegetables -Cut back on sweets and surgared beverages Medications -Take diabetes medications as ordered Check you blood sugar if recommended -Blood sugar result greater than 250mg for 2-3 days Contact the call center: [phone] -Blood sugar is low Treat by the rule of 15 Contact the call center: [phone] Bring you blood glucose meter with you to your primary care doctor visits Contact the call center at [phone] if you would like information on: -Diabetes classes -Nutrition Other diagnosis/instructions: Afib Patient and/or other caregiver has had an oppor tunity to participate in the development of the discharge plan. The elli ent had an opportunity to ask questions. While in the hospital you were treated for: Atr ial Fibrillation Primary Care Team: Primary Care Team: LAURI PACT PositiveID Primary Care Provider: SAKSHI CROUCH No Associate Provider Assigned. Attending Physician: VICENTE PELAEZ You are being discharged to: Home Phone number you can be contacted at for the ga xt 2 weeks: [phone] Your diet is regular Activity: Lifting: No lifting anything heavier than 10 lb s for the next 4-6 weeks, until he returns to clinic. Other: No raising left arm above the shoulder When you go home you will need: Treatments: None Supplies: Other: Arm Immobilizer Continuing care needs: If you receive care at [facility] you will nee d to call the Primary Care Call Center number at [phone] . If you receive care at another [place] facility or [facility] provider, you will need to call them to arrange your follow u p care. Future appointments: 12/21/2021 09:30 [facility] PACT PHONE PHARM [facility] TIENT APPOINTMENT A copy of these instructions has been given to: Patient IM - Immunizations Immunization Series Date Facility Reaction Info COVID-19 (PFIZER), MRNA, LNP-S, P* 3 05/28/2021 [place] 2 11/04/2020 [place] 1 10/14/2020 [place]* INFLUENZA (HISTORICAL) District O* No Site INFLUENZA, HIGH DOSE SEASONAL 06/20/2017 [place]* 06/19/2016 [place] INFLUENZA, INJECTABLE, QUADRIVALE* 06/18/2021 [place] INFLUENZA, SEASONAL, INJECTABLE,* 07/19/2019 [place]* 2018 [place]* 06/21/2015 [place] INFLUENZA, UNSPECIFIED [...] RECOMBINANT 2 02/07/2020 [place]* 1 07/19/2019 [place]* <C> See the Detailed Immunizations Health [facility]ma [facility] Component[DIM] for Comments Copy of PROVIDERS DISCHARGE ORDERS /es/ MOJGAN ARAUJO RN, RN Signed: 11/30/2021 12:43 Nov 30, 2021 07:15 NURSING NOTE: CASIE CLEMENS [facility] LOCAL TITLE: TELEMETRY CENTRALIZED NOTE STANDARD TITLE: NURSING NOTE DATE OF NOTE: NOV 30, 2021@07:15 ENTRY DATE: NOV 30, 2021@11:04:05 AUTHOR: CASIE CLEMENS EXP COSIGNER: URGENCY: STATUS: COMPLETED Telemetry (Cardiac) Monitor: Day Shift Telemetry initiation date/time: Nov@19:3 5. Telemetry indication: Recent Cardiac pr ocedure (S/P A-Fib Ablation and Device Upgrade) Cardiac History: CAD, S/P CABG, AK, HTN , COPD, A-Fib, Systolic Heart Failure, Unifocal PVCs Pacemaker DDD 50/130 Cardiac rhythm interpretation: Sinus Rhythm wit h BBB and PVCs HR:98 MI Int:.10 QRS Int:.13 QT Int:.36 QTc Int:.46 Telemetry leads monitored this shift: II and V lead Alarm parameters verified this shift At 1008, Patient had a 5 beat run of VT. SYED chavarria fied. /billy/ CASIE CLEMENS television news reporter Signed: 11/30/2021 11:10 Nov 30, 2021 12:14 NURSING INPATIENT NOTE: SUJATA BORGES [facility] LOCAL TITLE: KATINA NURSING PROGRESS NOTE STANDARD TITLE: NURSING INPATIENT NOTE DATE OF NOTE: NOV 30, 2021@00:14 ENTRY DATE: NOV 30, 2021@00:14:31 AUTHOR: SUJATA BORGES EXP COSIGNER: URGENCY: STATUS: COMPLETED [place]INA NURSING PROGRESS NOTE Has ADDENDA Nursing Shift Note Assumed tour: 23:30-08:00 Admitting Diagnosis: PVI Gen Change Assessment performed at: Nov@23:30 Focused assessment/pertinent notes from shift: A&Ox4. VSS. SR w/1st degree AVB. TIPS. No c/o N/V/D, SOB, dyspnea, dizziness, chest pain or discomfort. Pt turned self while in bed. EKG and Xray obtained in AM. Pt slept through night w/no complication s. VITALS Blood Pressure: 99/66 (11/29/2021 23:07) Heart Rate: 96 (11/29/2021 23:07) Respirations: 18 (11/29/2021 23:07) Temperature: 98.3 F [36.8 C] (11/29/2021 23:07) Pain: 0 (11/29/2021 23:07) Pulse Oximetry: 90% (11/29/2021 23:07) RECENT LABS PT 13.1 H (11/29/21) INR 1.1 PLASMA (11/29/21 06:38) POTASSIUM 4.3 (11/29/21) SODIUM 143 (11/29/21) MAGNESIUM 1.9 (11/29/21) WBC 7.40 (11/29/21) HGB 17.6 (11/29/21) HCT 52.7 (11/29/21) CREATININE 1.4 H (11/29/21) FINGERSTICK GLUCOSE 160 H (11/29/21) SAFETY Safety interventions this shift: Call light within reach Side rails up x 2 Bed in lowest position Yellow socks (high falls) Purposeful rounding SKIN Skin Interventions performed this shift: Patient turned C1iuaxm or as appropriate while in bed. Patient's heels elevated with pressure relief b oots or pillows under calves. Patient kept clean and dry with barrier cream a pplied as ordered. Device(s) removed and skin underneath was inspe cted. Head of Bed kept below 30 degrees unless otherw ise ordered. /billy/ SUJATA BORGES RN REGISTERED NURSE Signed: 11/30/2021 06:38 11/30/2021 ADDENDUM STATUS: COMPLETED BS: 165, SS Aspart held. /billy/ SUJATA BORGES RN REGISTERED NURSE Signed: 11/30/2021 06:40 Nov 29, 2021 11:05 NURSING NOTE: MICHELLE YOUNGER [facility] LOCAL TITLE: TELEMETRY CENTRALIZED NOTE STANDARD TITLE: NURSING NOTE DATE OF NOTE: NOV 29, 2021@23:05 ENTRY DATE: NOV 30, 2021@03:34:34 AUTHOR: MICHELLE YOUNGER EXP COSIGNER: URGENCY: STATUS: COMPLETED Telemetry (Cardiac) Monitor: Contracts Law Professor Telemetry initiation date/time: Nov@19:3 0. Telemetry indication: Recent EP procedure Cardiac History: New A-Fib w/RVR s/p ablation + upgrade to dual chamber ICD (this admit); CAD s/p AK+CABG, ICM/CHF(EF 23%) s/p ICD placement, HTN (COPD) ICD: DDD 50/130 interventions@>188 bpm (vs 320 bpm? ~see EP notes dated 11/29/21) Cardiac rhythm interpretation: Sinus rhythm w/1 *AVB, BBB, isolated PVC HR:92 MI Int:0.205 QRS Int:0.135 QT Int:0.38 QT c Int:0.47 Telemetry leads monitored this shift: II and V lead Alarm parameters verified this shift /billy/ MICHELLE YOUNGER Stock Broker Signed: 11/30/2021 03:38 Nov 29, 2021 09:20 NURSING INPATIENT NOTE: LORAINE ARCOS [facility] LOCAL TITLE: [place] NURSING PROGRESS NOTE STANDARD TITLE: NURSING INPATIENT NOTE DATE OF NOTE: NOV 29, 2021@21:20 ENTRY DATE: NOV 29, 2021@21:20:23 AUTHOR: LORAINE ARCOS EXP COSIGNER: URGENCY: STATUS: COMPLETED Admitting Diagnosis: PVI GEN CHANGE Blood Pressure: 112/73 (11/29/2021 20:35) Pulse: 98 (11/29/2021 20:40) Temperature: 98.5 F [36.9 C] (11/29/2021 19:35) Respiratory Rate: 18 (11/29/2021 19:35) Oxygen Saturation: 96% (11/29/2021 20:40) Delivery of Oxygen: Room Air Lung Sounds: Bilaterally clear, Wheezes Cough: Non-Productive Secretions: Clear Labs: TROPONIN - NONE FOUND POTASSIUM 4.3 (11/29/21) WBC 7.40 (11/29/21) HGB 17.6 (11/29/21) Rhythm: Sinus Rhythm, Other: 1st AV block with B BB and PVCs media monitor alarm parameters verified. Nursing Shift Note Nursing care provided from 1530 -2400 Highlights from shift: A&OX4. Ind with walker for mobility and transfe r. VSS. Denies any pain. Afebrile. SR with 1st AV block/PVCs. Post vitals stable. Pluses are palpable. CMS intact. L upper chest, Groin, R wris t and R IJ site: c/d/i. No hematoma or bleeding noted. immobilizer applied to his left arm. Bennett care done. Bennett draining clear amena yellow urine. Helped him walk around the hernandez. Wean off on O2 supplement. No other acute event. Call within reach. See ICCA for detailed assessment, Educa tion provided on medication/cares this shift as needed SKIN REINSPECTION/REASSESSMENT SKIN INSPECTION: Skin Color: Usual for ethnicity Skin Temperature: Warm Skin Moisture: Normal Skin Turgor: Elastic (normal/immediate) INTERVENTIONS: No change in previous interventions as listed b elow PRESSURE ULCER-EDUCATION [C] 11/29/2021 Educate Importance Of Changing Posit ion Provide Education On Cause/Prevention Provide Education Regarding Tx Plan PRESSURE ULCER-MOISTURE [C] 11/29/2021 Protective Barrier Ointment PRESSURE ULCER-PRESSURE REDUCING [C] 11/29/2021 Frequent Position Changes PRESSURE ULCER-REMOBILIZE [C] 11/29/2021 Encourage Activity As Tolerated RISK FACTORS THAT INCR41 'EASE RISK FOR DEVELOPING PRESSURE INJURIES The patient/resident does not have any addition al risk factors. Localized abnormality: Other: Location(s): L upper chest, Groin, R wrist and R IJ site: c/d/i. Skin Interventions performed this shift: Patient's heels elevated with pressure relief b oots or pillows under calves. Patient kept clean and dry with barrier cream a pplied as ordered. /billy/ LORAINE ARCOS RN REGISTERED NURSE Signed: 11/29/2021 22:33 Nov 29, 2021 09:05 TREATMENT PLAN INTERDISCIPLINARY NOTE: LORAINE ARCOS [facility] LOCAL TITLE: ITP INTERDISCIPLINARY TREATMENT PL AN STANDARD TITLE: TREATMENT PLAN INTERDISCIPLINARY NOTE DATE OF NOTE: NOV 29, 2021@21:05 ENTRY DATE: NOV 29, 2021@21:06:04 AUTHOR: LORAINE ARCOS EXP COSIGNER: URGENCY: STATUS: COMPLETED ITP INTERDISCIPLINARY TREATMENT PLAN Has AD LETICIA Interdisciplinary Treatment Plan (ITP) Date of current Admission: Nov Medical problems to be addressed, including reas on for admission as well as all active medical problems: 1. Status post left inguinal hernia repair 2. Chronic low back pain 3. Thrombocytopenia (SNOMED CT 149588853) 4. Chronic obstructive pulmonary disease (SNOME D CT 90314321) 5. History of adenomatous polyp of colon (SNOME D CT 884320127) 6. Type 2 diabetes mellitus 7. Hypertension 8. Coronary artery disease 9. Chronic systolic heart failure 10. Hyperlipidemia 11. Tobacco use 12. Cardiac defibrillator in situ 13. Peripheral neuropathy 14. Persistent atrial fibrillation 15. Unifocal PVCs At risk indicators at time of admission: Pain noted other than 0 on 0-10 pain scale, Current tobacco use, Diagnosed as diabetic and using oral agents or insulin Support services in community: Current living situation: Lives with others (indicate who in comments) Patient/Family input to care: feel better Patient Goals:feel better Treatment plan/Interventions: Encourage activity as tolera susanne., Educated Patient on use of Pain Scale, Assess patients'coordination/balance before assisting w ith transfer/mobility., Use stable shoes or treaded slip pers, and use glasses and hearing aids if indicated. Measurable Outcomes: Patient will verablize understanding of the 0-10 pain scale., Patient will not fall during hospitalization. , Skin will remain intact/or no further breakdown., Patient will receive education on tobacco cessat ion., Patient will maintain maximum level of function., Patient will be afeb rile and without signs or symptoms of infection., Patient states understan ding of diabetic medications, symptoms of hypo/hyperglycemia, and plan for giovani f-monitoring. Discharge Plan: Patient will return home. Anticipated resources needed for discharge: No anticipated resources needed at this time. Anticipated educational needs: Tests/treatments/procedures: risks and benefits, disease process, medication management, and discharge instructions. Participants: Vet, family, MD, Diet, PHarm, RNs, Sharlene Transportation needs: none at this time Plan of care shared with patient/family and verb alized with understanding. /es/ LORAINE ARCOS RN REGISTERED NURSE Signed: 11/29/2021 21:08 11/30/2021 ADDENDUM STATUS: COMPLETED Patient will verablize understanding of the 0-10 pain scale. Yes Patient will not fall during hospitalization. Ye s Skin will remain intact/or no further breakdown. Yes Patient will receive education on tobacco cessat ion. Yes Patient will maintain maximum level of function. Yes Patient will be afebrile and without signs or sy mptoms of infection. Yes Patient states understanding of diabetic medicat ions, symptoms of hypo/hyperglycemia, and plan for self-monitoring . Yes /es/ MOJGAN ARAUJO RN RN Signed: 11/30/2021 14:36 Nov 29, 2021 08:36 NURSING ADMISSION EVALUATION NOTE: LILA ARCOS [facility] PM LOCAL TITLE: [facility] ACUTE INPATIENT NSG ADMISSIO N SCREEN STANDARD TITLE: NURSING ADMISSION EVALUATION NOT E DATE OF NOTE: NOV 29, 2021@20:36 ENTRY DATE: NOV 29, 2021@20:36:56 AUTHOR: LORAINE ARCOS COSIGNER: URGENCY: STATUS: COMPLETED ALLERGY/ADVERSE DRUG REACTION (ADR) REVIEW (MRT 5) FACILITY ALLERGY/ADR -------- No Remote Allergy/ADR Data available for this pa [facility] Allergy/Adverse Drug Reaction Review to be condu cted by: Nurse Results of Allergy/ADR Review: Allergy/Adverse Drug Reaction list confirmed MEDICATION REVIEW (MRR1) Did patient bring medication(s) from home? No Medication Review to be conducted by Pharmacist Medication Review to be conducted by Provider GENERAL INFORMATION Admission information given by: Patient Preferred Language for Discussing Healthcare: [place] Preferred mode of communication: Verbal Sensory Deficits: Visual deficit: Bilateral Items at bedside: Dentures: top and bottom Glasses/contacts: bifocal INFECTIOUS DISEASE RISK SCREEN Travel Screen: Have you traveled within the [facility] with in the last 21 days? No Have you traveled outside the [place] wit hin the last 21 days? No Within the last 14 days, have you had: No known exposure Other Exposure to Infectious Disease: No known exposure Patient reported the following symptoms: No Symptoms Present History of Multiple Drug Resistant Organism (MD RO): No NUTRITION SCREENING Malnutrition Screening Measurement DT WEIGHT LB(KG)[BMI] 09/21/2021 09:49 223.7(101.47)[29*] 06/20/2021 09:36 230.4(104.51)[30*] 06/18/2021 12:53 230.1(104.37)[30*] Lost weight recently without trying: No (0 points) Eating poorly due to decreased appetite: No (0 points) Total Score: 0 Additional Nutrition Screening ==== ======== Patient requiring tube feedings/TPN/PPN? No Do you have any food intolerances, special dieta ry needs, ethnic, cultural or faith preferences affecting dietary needs? No In the past 3 months, did you ever run o ut of food and were not able to access more food or money to buy more food? No RISK SCREENINGS Alcohol Screen: Screen to be completed by: Nurse SCREEN FOR ALCOHOL (AUDIT-C) An alcohol screening test (AUDIT-C) was negativ e (score=3). 1. How often did you have a [...] on one occasion in the past year? Never Have you consumed alcohol within the last 72 ho urs? No Tobacco or Nicotine Use: Current some day tobacco user Type: Cigarettes Patient offered FDA-Approved cessation medicati on (nicotine replacement): Patient requests cessation medication. Provider notified: Complete tobacco cessation education: Now Patient counseled on the followin. Recogniz ing danger situations: - Alcohol use during the first month after quit ting - Being around smoke and/or other smokers - Times/situations when you routinely smoked 2. Developing coping skills: - Learning new way to manage stress - Exercising - Relaxation breathing - Changing routines - Distraction techniques to prevent tobacco use 3. Providing basic information about quitting: - Benefits of quitting tobacco - How to quit techniques - Current resources for quitting - Use of e-cigarettes or vaping devices is not recommended to assist with quitting as they are not approved by the [facility] as effective cessation treatment. Patient understanding of tobacco cessation coun seling: Verbalizes understanding Demonstrates Substance Use Assessment: Have you used any recreational drugs or narcoti cs in the last 72 hours? No RISK OF WANDERING History of wandering or elopement: No Patient expressing a desire/plan to leave immed iately: No SUICIDE SCREEN [place] Suicide Severity Rating Scale (C-SSRS) 1. Over [...] a gun, gave away valuables, went to [facility] roof but didn't jump)? No 8. If YES, was this within the past 3 months? Response not required due to responses to other questions. C-SSRS Screen is Negative EXPOSURE TO VIOLENCE AND ABUSE PRE-SCREEN Are [...] Advance Care Planning and/or Advance Directive: Yes Social Work Consult ordered. SPIRITUAL ASSESSMENT Are there faith practices or spiritual conc erns you want the dress operator, your provider, and other health care team membe rs to know? No ANTICIPATED DISCHARGE NEEDS Where do you live? Living with family/friends Do you have a legal guardian/conservator? No Method of transportation: Private Vehicle EDUCATIONAL NEEDS/LEARNING STYLE Barriers to learning: None evident Patient learning style preferences: Demonstration Printed materials Verbal explanation VISITOR INFORMATION Will you have a primary support person while in the hospital? No Patient's Visitor Restriction preferences: No Privacy Review: No passcode provided due to opt out [place] FALL SCALE & TIPS PROGRAM Santiago Fall Scale: The Santiago Fall scale was performed and score wa s 35. This is indicative of moderate risk for falls. History of falling in past 3 months? No Secondary diagnosis: Yes Ambulatory aid: None/bedrest/nurse assist Intravenous therapy/Heparin lock: Yes Gait/Transferring: Normal/bed rest/immobile Mental Status: Oriented to own ability/knows own limitations Fall Tailoring Interventions for Patient Safety (TIPS) Fall TIPS initiated with patient: Yes Fall TIPS reviewed with patient: Yes ASPIRATION RISK ASSESSMENT AND SWALLOW SCREEN None PAIN ASSESSMENT Are you currently experiencing pain? INITIAL SKIN INSPECTION/ASSESSMENT SKIN INSPECTION: Skin Color: Usual for ethnicity Skin Temperature: Warm Skin Moisture: Normal Skin Turgor: Elastic (normal/immediate) Radames Skin Assessment: The patient's Radames Scale Score is 18. The pat ient is at mild risk for development of pressure ulcer/injury. Sensory perception -- ability to respond meanin gfully to pressure-related discomfort Slightly limited. Moisture -- degree to which skin is exposed to moisture Occasionally moist. Activity -- ability to change and control body position Walks occasionally. Mobility -- ability to change and control body position Slightly limited. Nutrition -- usual food intake patterns Adequate. Friction and shear No apparent problem. INTERVENTIONS: New or changed pressure ulcer/injury interventi ons or medical condition. Education: Provide patient/caregiver education regarding c auses and prevention of pressure ulcers/injuries. Provide patient/caregiver education regarding t reatment plan for pressure ulcers/injuries. Teach patient/caregiver importance of changing position frequently for pressure ulcer/injury prevention. Pressure-Redistribution measures: Encourage small, frequent position changes Maximize mobilization: Encourage activity as tolerated Manage moisture: Apply protective barrier ointment RISK FACTORS THAT INCREASE RISK FOR DEVELOPING PRESSURE INJURIES: The patient/resident has the following: Age over 75 Neuropathy Localized abnormality: Other: Location(s): surgical incision on his Bilateral groin site, R wrist, L Upper chest, and R neck: c/d/i. Items [place] admitted with: brown jacket, glasses, top and bottom dentures, black jeans with belt, white underwear, white socks, iqra k and brown buttom up, black shoes, blue flip phone. 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 Telemetry indication: Recent EP procedure Cardiac History: New A-Fib w/RVR s/p ablation + upgrade to dual chamber ICD (this admit); CAD s/p AK+CABG, ICM/CHF(EF 23%) s/p ICD placement, HTN (COPD) ICD: DDD 50/130 interventions@>188 bpm (vs 320 bpm? ~see EP notes dated 11/29/21) Cardiac rhythm interpretation: Sinus rhythm w/1 *AVB, BBB, PVC's HR:92 MI Int:0.205 QRS Int:0.13 QT Int:0.36 QTc Int:0.445 Telemetry leads monitored this shift: II and V lead Alarm parameters verified this shift /es/ MICHELLE YOUNGER Stock Broker Signed: 11/29/2021 20:24
--- OUTSIDE RECORDS SUMMARY | 2022-04-02 16:11 | XMS_ITS | Encounter Summary ---
:1945 Author Organization Department [facility] Address [address] [place] [id number] Care Team Providers Name Role Phone WILLA [...] MEDICARE MEDICARE PART Jun 25, PART B [id number] Saumya QUINONES PATIENT (WNR) (M) B 2011 78A 0 AVID MEDICARE MEDICARE PART Sep 25, PART A [id number] Saumya QUINONES PATIENT (WNR) (M) A 2009 78A 0 AVID MEDICARE MEDICARE PART Sep 25, PART A [id number] Saumya MICHELE (WNR) (M) A 2009 78A [phone] AVID MEDICARE MEDICARE PART Sep 25, PART B [id number] Saumya MICHELE (WNR) (M) B 2009 [id number] [phone] AVID Selected Encounter This section includes the information on record at [place] for the Encounter. Date/Time Encounter Type Encounter Reason Provider Source Description Nov 30, 2021 PM DEVICE PROGR CIED DEVICES ICD-10-CM Z95.810 SUGEY SURESH, 07:20 AM EVAL MULTI Presence of [facility] automatic (implantable) cardiac defibrillator with Provider Comments: Cardiac defibrillator in situ ([facility] [id number]) IHE Encounter Template Text not used by [facility] Assessments - Encounter Diagnoses This section includes the primary and secondary diagnoses documented for the Encounter. Date/Time Primary/Secondary Diagnosis Name Provider Source Diagnosis Nov 30, [address] [facility] 09:33 AM automatic [facility] (implantable) cardiac defibrillator Plan of Treatment: Future Appointments (+ 6 months) and Future Tests (+/- 45 days) The Plan of Treatment section includes future care activities for the patient from all [place] [facility] This section includes future appointments and future orders which are active, pending orscheduled.Future Appointments This section includes appointments that were scheduled to occur 6 months from the date of the Encounter, up to a maximum of 20 appointments. The data comes from all [facility]. Appointment Date/Time Appointment Type Appointment Facili ty Name Dec 21, 2021 09:30 AM AMBULATORY - NONE [facility] January 07, 2022 01:30 PM AMBULATORY - MEDICINE [facility] Feb 05, 2022 07:00 AM AMBULATORY - NONE [facility] Feb 07, 2022 09:30 AM AMBULATORY - NONE [facility] Feb 13, 2022 10:00 AM AMBULATORY - NONE [facility] Mar 21, 2022 09:30 AM AMBULATORY [facility] Active, Pending, and Scheduled Orders This section includes a listing of several types of active, pending, and scheduled orders, including clinic medications orders, diagnostic test orders, procedure orders and consult orders; where the start date of the order is 45 days before the date of the Encounter or 45 days after the date of the Encounter. The data comes from all [place] treatment [facility]. Test Date/Time Test Type Test Details Facility Name Nov 29, 2021 06:30 AM Laboratory - Blood Bank TYPE & SCREEN - [place] B [facility] Order BLOOD SP Dec 15, 2021 12:00 AM Laboratory - Chemistry BASIC METABOLIC MIN [facility] Order PANEL+MG PLASMA SP Lab Results: [...] Reference Range Comment Nov 30, 2021 11:26 [facility] FINGERSTICK GLUCOSE Speci men Type: BLOOD AM Comment: [place] Nurse Notified Ordering Provid er: IRENE BURNS Report Released Date/Time: Nov 30, 2021 11:46 AM Reporting Lab: [facility] [address] [facility] [address] Performing Lab: [facility] [address] [facility] [address] FINGERSTICK GLUCOSE 284 mg/dL H 70-100 Nov 30, 2021 09:47 AM [facility] ALBUMIN Specim en Type: PLASMA No comment enter ed. Ordering Provid er: ELIUD DINERO Report Released Date/Time: Nov 29, 2021 07:53 PM Reporting Lab: [facility] [address] [facility] [address] Performing Lab: [facility] [address] ALBUMIN 3.4 g/dL L 3.5-5.2 Nov 30, 2021 09:47 [facility] BASIC METABOLIC Specimen Type: PLASMA AM PANEL+MG No comment enter ed. Ordering Provid er: ANGIE MALHOTRA Report Released Date/Time: Nov 29, 2021 08:12 PM Reporting Lab: [facility] [address] [facility] [address] Performing Lab: [facility] [address] [facility] [address] CREATININE 1.2 mg/dL 0.7-1.2 UREA NITROGEN 18 mg/dL 8-26 GLUCOSE 342 mg/dL H 74-100 SODIUM 141 mmol/L 136-145 POTASSIUM 4.3 mmol/L 3.5-5.1 CHLORIDE 108 mmol/L H 98-107 CO2 26 mmol/L 22-29 CALCIUM 8.6 mg/dL 8.4-10.2 MAGNESIUM 1.5 mg/dL L 1.6-2.6 ANION GAP 7 mmol/L 5-15 CREAT EGFR(CKD-EPI) 63 >60 Nov 30, 2021 09:46 AM [facility] CBC Specim en Type: BLOOD No comment enter ed. Ordering Provid er: ANGIE MALHOTRA Report Released Date/Time: Nov 29, 2021 08:12 PM Reporting Lab: [facility] [address] [facility] [address] Performing Lab: [facility] [address] [facility] [address] WBC 10.61 10*3/uL 4.0-11.0 RBC 4.33 10*6/uL L 4.6-6.2 HGB 14.6 g/dL 13.5-17.9 HCT 45.2 41-54 MCV 104.4 fL H 80-100 MCH 33.7 pg H 27-33 MCHC 32.3 g/dL 32.0-37.5 PLT 71 10*3/uL L 150-400 MPV 13.9 fL H 7.4-10.4 RDW 14.7 H 11.5-14.5 IPF 17.8 H 0-10 Nov 30, 2021 06:09 [facility] FINGERSTICK GLUCOSE Speci men Type: BLOOD AM Comment: [place] Nurse Notified Ordering Provid er: IRENE BURNS Report Released Date/Time: Nov 30, 2021 06:32 AM Reporting Lab: [facility] [address] [facility] [address] Performing Lab: [facility] [address] [facility] [address] FINGERSTICK GLUCOSE 165 mg/dL H 70-100 Nov 29, 2021 07:35 [facility] FINGERSTICK GLUCOSE Speci men Type: BLOOD PM Comment: [place] Nurse Notified Ordering Provid er: IRENE BURNS Report Released Date/Time: Nov 29, 2021 07:48 PM Reporting Lab: [facility] [address] [facility] [address] Performing Lab: [facility] [address] [facility] [address] FINGERSTICK GLUCOSE 160 mg/dL H 70-100 Nov 29, 2021 06:52 [facility] FINGERSTICK GLUCOSE Speci men Type: BLOOD PM Comment: [place] Nurse Notified Ordering Provid er: SAKSHI CROUCH Report Released Date/Time: Nov 29, 2021 07:04 PM Reporting Lab: [facility] [address] [facility] [address] Performing Lab: [facility] [address] [facility] [address] FINGERSTICK GLUCOSE 161 mg/dL H 70-100 Nov 29, 2021 04:18 [facility] FINGERSTICK GLUCOSE Speci men Type: BLOOD PM No comment enter ed. Ordering Provid er: IRENE BURNS TWO Report Released Date/Time: Nov 29, 2021 08:08 PM Reporting Lab: [facility] [address] [facility] [address] Performing Lab: [facility] [address] [facility] [address] FINGERSTICK GLUCOSE 179 mg/dL H 70-100 Nov 29, 2021 03:26 [facility] POC ABG/ELECTROLYTES Spec imen Type: ARTERIAL BLOOD PM Comment: Sample Type = ARTERIAL Ordering Provid er: TEAM,CARDS TWO Report Released Date/Time: Nov 29, 2021 07:53 PM Reporting Lab: [facility] [address] [facility] [address] Performing Lab: [facility] [address] [facility] [address] POC PH 7.321 L 7.35-7.45 POC PCO2 [...] mg/dL L 4.50-5.30 Nov 29, 2021 03:24 [facility] FINGERSTICK GLUCOSE Speci men Type: BLOOD PM Comment: Save R esult Ordering Provid er: TEAM,CARDS TWO Report Released Date/Time: Nov 29, 2021 08:08 PM Reporting Lab: [facility] [address] [facility] [address] Performing Lab: [facility] [address] [facility] [address] FINGERSTICK GLUCOSE 188 mg/dL H 70-100 Nov 29, 2021 02:06 [facility] POC ABG/ELECTROLYTES Spec imen Type: ARTERIAL BLOOD PM Comment: Sample Type = ARTERIAL Ordering Provid er: TEAM,CARDS TWO Report Released Date/Time: Nov 29, 2021 07:53 PM Reporting Lab: [facility] [address] [facility] [address] Performing Lab: [facility] [address] [facility] [address] POC PH 7.313 L 7.35-7.45 POC PCO2 [...] mg/dL L 4.50-5.30 Nov 29, 2021 02:04 [facility] FINGERSTICK GLUCOSE Speci men Type: BLOOD PM Comment: [place] Ordering Provid er: IRENE BURNS TWO Report Released Date/Time: Nov 29, 2021 08:08 PM Reporting Lab: [facility] [address] [facility] [address] Performing Lab: [facility] [address] [facility] [address] FINGERSTICK GLUCOSE 236 mg/dL H 70-100 Nov 29, 2021 01:52 PM [facility] POC ACT Specim en Type: BLOOD No comment enter ed. Ordering Provid er: IRENE BURNS TWO Report Released Date/Time: Dec 03, 2021 01:31 PM Reporting Lab: [facility] [address] [facility] [address] Performing Lab: [facility] [address] [facility] [address] POC ACT 135 s 84-139 Nov 29, 2021 01:16 PM [facility] POC ACT Specim en Type: BLOOD No comment enter ed. Ordering Provid er: IRENE BURNS TWO Report Released Date/Time: Dec 03, 2021 01:30 PM Reporting Lab: [facility] [address] [facility] [address] Performing Lab: [facility] [address] [facility] [address] POC ACT 355 s 84-139 Nov 29, 2021 12:49 PM [facility] POC ACT Specim en Type: BLOOD No comment enter ed. Ordering Provid er: IRENE BURNS TWO Report Released Date/Time: Dec 03, 2021 01:30 PM Reporting Lab: [facility] [address] [facility] [address] Performing Lab: [facility] [address] [facility] [address] POC ACT 367 s 84-139 Nov 29, 2021 12:48 [facility] POC ABG/ELECTROLYTES Spec imen Type: ARTERIAL BLOOD PM Comment: Sample Type = ARTERIAL Ordering Provid er: IRENE BURNS TWO Report Released Date/Time: Nov 29, 2021 07:53 PM Reporting Lab: [facility] [address] [facility] [address] Performing Lab: [facility] [address] POC PH 7.289 L 7.35-7.45 POC PCO2 [...] 4.7 mg/dL 4.50-5.30 Nov 29, 2021 12:45 [facility] FINGERSTICK GLUCOSE Speci men Type: BLOOD PM Comment: Save R esult Ordering Provid er: IRENE BURNS TWO Report Released Date/Time: Nov 29, 2021 08:08 PM Reporting Lab: [facility] [address] [facility] [address] Performing Lab: [facility] [address] [facility] [address] FINGERSTICK GLUCOSE 186 mg/dL H 70-100 Nov 29, 2021 12:26 PM [facility] POC ACT Specim en Type: BLOOD No comment enter ed. Ordering Provid er: IRENE BURNS TWO Report Released Date/Time: Dec 03, 2021 01:30 PM Reporting Lab: [facility] [address] [facility] [address] Performing Lab: [facility] [address] [facility] [address] POC ACT 367 s 84-139 Nov 29, 2021 11:58 AM [facility] POC ACT Specim en Type: BLOOD No comment enter ed. Ordering Provid er: IRENE BURNS Report Released Date/Time: Dec 03, 2021 01:30 PM Reporting Lab: [facility] [address] [facility] [address] Performing Lab: [facility] [address] [facility] [address] POC ACT 338 s 84-139 Nov 29, 2021 11:53 [facility] FINGERSTICK GLUCOSE Speci men Type: BLOOD AM Comment: Save R esult Ordering Provid er: IRENE BURNS Report Released Date/Time: Nov 29, 2021 08:08 PM Reporting Lab: [facility] [address] [facility] [address] Performing Lab: [facility] [address] [facility] [address] FINGERSTICK GLUCOSE 225 mg/dL H 70-100 Nov 29, 2021 11:30 AM [facility] POC ACT Specim en Type: BLOOD No comment enter ed. Ordering Provid er: IRENE BURNS Report Released Date/Time: Dec 03, 2021 01:30 PM Reporting Lab: [facility] [address] [facility] [address] Performing Lab: [facility] [address] [facility] [address] POC ACT 355 s 84-139 Nov 29, 2021 11:26 [facility] POC ABG/ELECTROLYTES Spec imen Type: ARTERIAL BLOOD AM Comment: Sample Type = ARTERIAL Ordering Provid er: IRENE BURNS Report Released Date/Time: Nov 29, 2021 07:53 PM Reporting Lab: [facility] [address] [facility] [address] Performing Lab: [facility] [address] [facility] [address] POC PH 7.317 L 7.35-7.45 POC PCO2 [...] 4.8 mg/dL 4.50-5.30 Nov 29, 2021 11:06 [facility] FINGERSTICK GLUCOSE Speci men Type: BLOOD AM No comment enter ed. Ordering Provid er: IRENE BURNS Report Released Date/Time: Nov 29, 2021 08:08 PM Reporting Lab: [facility] [address] [facility] [address] Performing Lab: [facility] [address] [facility] [address] FINGERSTICK GLUCOSE 221 mg/dL H 70-100 Nov 29, 2021 11:02 AM [facility] POC ACT Specim en Type: BLOOD No comment enter ed. Ordering Provid er: IRENE BURNS Report Released Date/Time: Dec 03, 2021 01:30 PM Reporting Lab: [facility] [address] [facility] [address] Performing Lab: [facility] [address] [facility] [address] POC ACT 294 s 84-139 Nov 29, 2021 10:26 AM [facility] POC ACT Specim en Type: BLOOD No comment enter ed. Ordering Provid er: IRENE BURNS Report Released Date/Time: Dec 03, 2021 01:30 PM Reporting Lab: [facility] [address] [facility] [address] Performing Lab: [facility] [address] [facility] [address] POC ACT 329 s 84-139 Nov 29, 2021 10:06 AM [facility] POC ACT Specim en Type: BLOOD No comment enter ed. Ordering Provid er: IRENE BURNS Report Released Date/Time: Dec 03, 2021 01:30 PM Reporting Lab: [facility] [address] [facility] [address] Performing Lab: [facility] [address] [facility] [address] POC ACT 312 s 84-139 Nov 29, 2021 09:58 [facility] POC ABG/ELECTROLYTES Spec imen Type: ARTERIAL BLOOD AM Comment: Sample Type = ARTERIAL Ordering Provid er: IRENE BURNS Report Released Date/Time: Nov 29, 2021 07:53 PM Reporting Lab: [facility] [address] [facility] [address] Performing Lab: [facility] [address] [facility] [address] POC PH 7.334 L 7.35-7.45 POC PCO2 [...] 4.9 mg/dL 4.50-5.30 Nov 29, 2021 09:56 [facility] FINGERSTICK GLUCOSE Speci men Type: BLOOD AM No comment enter ed. Ordering Provid er: IRENE BURNS TWO Report Released Date/Time: Nov 29, 2021 08:08 PM Reporting Lab: [facility] [address] [facility] [address] Performing Lab: [facility] [address] [facility] [address] FINGERSTICK GLUCOSE 194 mg/dL H 70-100 Nov 29, 2021 09:45 AM [facility] POC ACT Specim en Type: BLOOD No comment enter ed. Ordering Provid er: IRENE BURNS TWO Report Released Date/Time: Dec 03, 2021 01:30 PM Reporting Lab: [facility] [address] [facility] [address] Performing Lab: [facility] [address] [facility] [address] POC ACT 269 s 84-139 Nov 29, 2021 08:59 AM [facility] POC ACT Specim en Type: BLOOD No comment enter ed. Ordering Provid er: IRENE BURNS TWO Report Released Date/Time: Dec 03, 2021 01:30 PM Reporting Lab: [facility] [address] [facility] [address] Performing Lab: [facility] [address] [facility] [address] POC ACT 135 s 84-139 Nov 29, 2021 [facility] COVID-19 AND FLU/RSV Specime n Type: NASOPHARYNGEAL 07:05 AM DIAG PANEL(CEPHEID) Comment: Ce pheid GeneXpert (618) Ordering Provid er: KATHERINE FIGUEROA Report Released Date/Time: Oct 29, 2021 12:22 PM Reporting Lab: [facility] [address] Performing Lab: [facility] [address] COVID-19 (CEPHEID) Not Detected Not Dete cted INFLUENZA A (PCR) Not Detected Not Detec susanne INFLUENZA B (PCR) Not Detected Not Detec susanne RSV (PCR) Not Detected Not Detected Nov 29, 2021 [facility] BASIC METABOLIC Specimen Typ e: PLASMA 06:38 AM PANEL+MG No comment enter ed. Ordering Provid er: KATHERINE FIGUEROA Report Released Date/Time: Oct 29, 2021 12:22 PM Reporting Lab: [facility] [address] Performing Lab: [facility] [address] CREATININE 1.4 mg/dL H 0.7-1.2 UREA NITROGEN 23 mg/dL 8-26 GLUCOSE 201 mg/dL H 74-100 SODIUM 143 mmol/L 136-145 POTASSIUM 4.3 mmol/L 3.5-5.1 CHLORIDE 108 mmol/L H 98-107 CO2 28 mmol/L 22-29 CALCIUM 9.9 mg/dL 8.4-10.2 MAGNESIUM 1.9 mg/dL 1.6-2.6 ANION GAP 7 mmol/L 5-15 CREAT EGFR(CKD-EPI) 53 L >60 Nov 29, 2021 06:38 [facility] CBC Specimen Type: BLOOD AM No comment enter ed. Ordering Provid er: KATHERINE FIGUEROA Report Released Date/Time: Oct 29, 2021 12:22 PM Reporting Lab: [facility] [address] [facility] [address] Performing Lab: [facility] [address] WBC 7.40 10*3/uL 4.0-11.0 RBC 5.17 10*6/uL 4.6-6.2 HGB 17.6 g/dL 13.5-17.9 HCT 52.7 41-54 MCV 101.9 fL H 80-100 MCH 34.0 pg H 27-33 MCHC 33.4 g/dL 32.0-37.5 PLT 88 10*3/uL L 150-400 MPV 14.3 fL H 7.4-10.4 RDW 14.4 11.5-14.5 IPF 18.0 H 0-10 Nov 29, 2021 [facility] PROTHROMBIN Specimen Typ e: PLASMA 06:38 AM TIME/INR No comment enter ed. Ordering Provid er: KATHERINE FIGUEROA Report Released Date/Time: Oct 29, 2021 12:22 PM Reporting Lab: [facility] [address] Performing Lab: [facility] [address] .INR 1.1 0.8-1.1 .PT 13.1 s H 9.4-12.5 Nov 29, 2021 [facility] ACT PART Specimen Typ e: PLASMA 06:38 AM THROMBO TIME No comment enter ed. Ordering Provid er: KATHERINE FIGUEROA Report Released Date/Time: Oct 29, 2021 12:22 PM Reporting Lab: [facility] [address] Performing Lab: [facility] [address] APTT 33.3 s 25.1-36.5 Vital Signs: All taken on the encounter date This section contains inpatient and outpatient Vital Signs collected on the date of the Encounter. Date/Time Temperature Pulse Blood Respiratory SP02 Pain Height Weight Axel dy Source Pressure Rate Mass Index Nov 30, 100 104/72 18 /min 92 % [place] 2021 10:19 /min mm[Hg] [facility] Nov 30, 99.0 F 92 102/69 18 /min 90 % 0 [place] 2021 07:53 /min mm[Hg] [facility] Nov 30, 98/65 16 /min 88 % [place] 2021 03:56 /min mm[Hg] [facility] Social History: Smoking Status (Most current) and Tobacco Use (All prior to encounter date) This section includes the most current, and the historical, smoking and tobacco-related health factors from the [place] facility where the Encounter took place.Current Smoking Status This section includes the most current smoking, or tobacco-related health factor, from the [place] facility where the Encounter took place. Date/Time Current Smoking Status Comment Facility Nov 29, 2021 08:36 PM [facility] TOBACCO USE CURRENT NRT [facility] ACCEPT Tobacco Use History This section includes a history of the smoking, or tobacco- related health factors, that were collected on or before the date of the Encounter. The data comes from the [place] facility where the Encounter took place. 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 [facility] Nov 15, 2020 10:00 AM VA-TOBACCO USE MED NO [place] [facility] Nov 15, 2020 10:00 AM VA-TOBACCO USER EVERY DAY [facility] Jun 21, 2019 02:29 PM VA-TOBACCO USE 30 YEARS OR MORE [facility] Jun 21, 2019 02:29 PM VA-TOBACCO USE ADVICE [place] [facility] Jun 21, 2019 02:29 PM 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 [facility] Jun 21, 2019 02:29 PM VA-TOBACCO USE MED NO [place] [facility] Jun 21, 2019 02:29 PM VA-TOBACCO USE WI 30 MIN OF WAKEUP [facility] Jun 21, 2019 02:29 PM VA-TOBACCO USER EVERY DAY [facility] Jun 09, 2018 03:48 PM VA-TOBACCO USE 30 YEARS OR MORE [facility] Jun 09, 2018 03:48 PM VA-TOBACCO USE ADVICE [place] [facility] Jun 09, 2018 03:48 PM 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 Jun 19, 2016 08:41 AM CURRENT TOBACCO USER [facility] Jun 21, 2015 08:15 AM CURRENT TOBACCO USER [facility] Mar 22, 2014 10:03 AM CURRENT TOBACCO [facility] Mar 25, 2013 11:01 AM CURRENT TOBACCO US[facility] Feb 05, 2012 08:55 AM CURRENT TOBACCO [facility] January 01, 2011 09:26 AM CURRENT TOBACCO [facility] Mar 07, 2010 10:02 AM CURRENT TOBACCO [facility] Feb 21, 2009 08:17 AM CURRENT TOBACCO [facility]ER [facility] Nov 06, 2007 10:02 AM CURRENT TOBACCO US[facility] January 02, 2007 10:33 AM CURRENT TOBACCO US[facility] Advance Directives: All historical and current [...] Mar 06, 2005 ADVANCE DIRECTIVE GANESH RODRIGUEZ [facility] Radiology Reports: +/- 30 days of the [...] the Encounter. The data comes from all [place] treatment facilities. Date/Time Radiology Report Provider Source Nov 30, 2021 07:05 AM CHEST 2 VIEWS PA AND LAT: MONET LUDWIG [facility] [place] [phone] -[birth year] 9 M Exm Date: NOV 30, 2021@07:05 Req Phys: CHERRY MENDOZA Loc: 3LSOB/ 2@08:05 Img Loc: MAIN X-RAY Service: zzcard sect (Case [id number] COMPLETE) CHEST 2 VIEWS PA AND LAT (R AD Detailed) CPT:03035 Reason for Study: s/p upgrade ICD adding an A l ead Clinical History: Post ICD or Pacemaker: Verify Lead Placement. Trevor IS NOT under investigation for COVID-19 or is COVID-19 negative s/p upgrade ICD adding an A lead Responsible pr ovider name and phone number to notify for critical findings if other than user placing the order and pager listed below: User placing orders pager: [phone] LAST CREATININE 1.4 H (11/29/21) Report Status: Verified Date Reported: NOV 30, 2021 Date Verified: NOV 30, 2021 Academic Support Coordinator E-Sig:/ES/MONET LUDWIG MD, FACR, C CD [...] 29, 2021 06:25 PM CHEST 1 VIEW[facility] [place] [phone] -[birth year], [birth year] 9 M Exm Date: NOV 29, 2021@18:25 Req Phys: CHERRY MENDOZA Pat Loc: [facility] [address] [facility] (Req'g Loc) Img Loc: MAIN X-RAY Service: Unknown (Case [id number] COMPLETE) CHEST 1 VIEW (RAD Detailed) CPT:25736 Reason for Study: s/p upgrade ICD adding [...] pager listed below: User placing orders pager: [phone] LAST CREATININE 1.4 H (11/29/21) Report Status: Verified Date Reported: NOV 29, 2021 Date Verified: NOV 29, 2021 Academic Support Coordinator E-Sig:/ES/MAGDALENE DAVIDSON MD Report: DATE/TIME REGISTERED: [...] Primary Interpreting Staff: MAGDALENE DAVIDSON MD, RADIOLOGIST (Academic Support Coordinator) /LUAN Encounter Notes: All associated encounter notes This section contains the clinical notes associated to the Encounter. Date/Time Encounter Note(s) Provider Source Nov 30, 2021 07:20 CARDIOLOGY DIAGNOSTIC STUDY NOTE: NESHA DAI [facility] LOCAL TITLE: CARDIOLOGY ELECTROPHYSIOLOGY NOTE RET STANDARD TITLE: CARDIOLOGY DIAGNOSTIC STUDY NOTE DATE OF NOTE: NOV 30, 2021@07:20 ENTRY DATE: NOV 30, 2021@07:20:19 AUTHOR: LUIS MURILLO EXP COSIGNER: URGENCY: STATUS: COMPLETED CARDIOLOGY ELECTROPHYSIOLOGY NOTE Has ADDEN DA ICD generator change and upgrade to DDD ICD yest erday 11/29/21. Patient had single chamber ICD at [facility], upgrade completed s/p PVI. Pressure dressing removed early today, site chrissy ins stable 2 hours post. Normal Medtronic dual chamber ICD function with mode switch turned on. Leads appear stable since implant yesterday: Atrial (R) Ventricular Sensin.6 mV 3.8 mV Pacing Threshold: 0.5 V@0.4 ms 0.75 V@0.4 ms Impedance: 437 ohms 342 ohms Shocking impedance 58 ohms <0.1% AP 22% SAT ACT INSTRUCTOR Programmed Parameters:DDD Luis Armando pacing set at 50bpm. Device will deliver therapies for rates > 188bpm . History of low R wave from 3 -7mV. Will alert Dr. Phillips to 22% RV pacing in DDD mode since implant. Analysis by: Jr Murillo, database coordinator Device report sent to [facility]. Will be viewable via [employer] imaging once scanned. Patient offered remote transmitter: Yes Patient agrees to remote transmitter: Yes Patient needs cell adaptor: No Patient Education: Patient indicates readiness to learn, verbalizes and demonstrates understanding of ins tructions. Denies further questions. Education: Patient instructed to remove telfa an d tagaderm 24 hours post procedure. Discussed with patient potential effects of elec tromagnetic interference with device. Patient advised to avoid magnetic f ields such as arc welding and large generators. Specific examples given to patient regarding caution to use with small magnetic mo such as chain saws and cellular phones. Patient advised incision dry for 5 days. Patient advised to report signs or symptoms of infection. Patient advised not to raise left arm above the shoulder and no lifting anything heavier saray n 10 lbs for the next 4-6 weeks, until he returns to clinic. Patient w as given contact numbers for further questions. Please assure follow-up is ordered: Family will be asked to isai liriano photo of site on 12/07/21 to in 7-10 days for wound check. [facility] to [facility] ([facility]) in 4-6 weeks for device check and repeat wound check. VAT [phone] 06/[address] Phillips to 22% RV pacing in DDD mode sin e implant. /billy/ JR MURILLO, [facility] EP Clinical Specialist Signed: 11/30/2021 08:51 11/30/2021 ADDENDUM STATUS: COMPLETED Discussed with Dr. Phillips, mode c hanged to [facility]. Did not cap AV delay, could consider capping at one month interrogation if desired. /eb MURILLO, EPC[facility] EP Clinical Specialist Signed: 11/30/2021 09:33 11/30/2021 ADDENDUM STATUS: COMPLETED Patient told me he lives wit h his son and granddaughter, unable to locate phone numbers for either. Per notes patient has [facility] Contacted Gomez at [facility]-[address] [place] [address] [phone] Gomez will visit patient next week on December 06 , will check site. Gomez confirms patient does lives with timothy hodgson and son but is unable to share contact number. Gomez states patient's wif e, who is in contacted one year ago. Per scheduling notes mireya jacob provided ride for admission. [address] clerk to assist patient in updating next of k in and emergency contact, /billy/ AKBAR JOYNER EP Clinical Specialist Signed: 11/30/2021 09:45 12/03/2021 ADDENDUM STATUS: COMPLETED Monitored status via [employer] with alert interrogation. One month apt pendig [facility] scheduling. /AKBAR Perla EP Clinical Specialist Signed: 12/03/2021 10:29 12/17/2021 ADDENDUM STATUS: COMPLETED Teams to [facility] to please assist patient in schedul ing one month apt. /AKBAR Perla EP Clinical Specialist Signed: 12/17/2021 15:54
--- OUTSIDE RECORDS SUMMARY | 2022-04-02 16:12 | XMS_ITS ---
DAILY HOSPITALIZATION DATA [facility] Encounter Summary Created on:November 29, 2021 Patient:PAUL MICHELE Sex:Male :1945 Author Organization Department [facility] Address [address] [place] [id number] Care Team Providers Name Role Phone WILLA [...] MEDICARE MEDICARE PART Jun 25, PART B [id number] Saumya QUINONES PATIENT (WNR) (M) B 2011 78A 0 AVID MEDICARE MEDICARE PART Sep 25, PART A [id number] Saumya QUINONES PATIENT (WNR) (M) A 2009 78A 0 AVID MEDICARE MEDICARE PART Sep 25, PART A [id number] Saumya MICHELE (WNR) (M) A 2009 78A [id number] AVID MEDICARE MEDICARE PART Sep 25, PART B [id number] Saumya MICHELE (WNR) (M) B 2009 [id number] [id number] AVID Selected Encounter This section includes the information on record at [place] for the Encounter. Date/Time Encounter Type Encounter Description Reason Provider Source Nov 29, 2021 08:36 Inpatient Visit DAILY HOSPITALIZATION DATA PM I[facility] Encounter Template Text not used by ND Plan of Treatment: Future Appointments (+ 6 months) and Future Tests (+/- 45 days) The Plan of Treatment section includes future care activities for the [facility] This section includes future appointments and future orders which are active, pending orscheduled.Future Appointments This section includes appointments that were scheduled to occur 6 months from the date of the Encounter, up to a maximum of 20 appointments. The data comes from all [facility]. Appointment Date/Time Appointment Type Appointment Facili ty Name Dec 21, 2021 09:30 AM AMBULATORY - NONE [facility] January 07, 2022 01:30 PM AMBULATORY - [facility] Feb 05, 2022 07:00 AM AM[facility]ULATORY - [facility] Feb 07, 2022 09:30 AM AMBULATORY - NONE [facility] Feb 13, 2022 10:00 AM AMBULATORY [facility] Mar 21, 2022 09:30 AM AMBULATORY [facility] Active, Pending, and Scheduled [...] comes from all [facility]. Test Date/Time Test Type Test Details Facility Name Nov 29, 2021 06:30 AM Laboratory - Blood Bank TYPE & SCREEN - [place] B [facility] Order BLOOD SP Dec 15, 2021 12:00 AM Laboratory - Chemistry BASIC METABOLIC MIN [facility] Order PANEL+MG PLASMA SP Lab Results: +/- 30 days of the encounter This section includes the Chemistry and Hematology Lab Results on record with [place] for the patient. Radiology Reports and Pathology Reports are provided separately, in subsequent sections.Lab Results This section contains the Chemistry/Hematology Results that were resulted 30 days before or 30 daysafter the date of the Encounter. Date/Time Source Result Type Result - Unit Interpretation Reference Range Comment Nov 30, 2021 11:26 [facility] FINGERSTICK GLUCOSE Speci men Type: BLOOD AM Comment: [place] Nurse Notified Ordering Provid er: TEAM,CARDS TWO Report Released Date/Time: Nov 30, 2021 11:46 AM Reporting Lab: [facility] [address] [facility] [address] Performing Lab: [facility] [address] [facility] I [facility] [address] FINGERSTICK GLUCOSE 284 mg/dL H 70-100 Nov 30, 2021 09:47 AM [facility] ALBUMIN Specim en Type: PLASMA No comment enter ed. Ordering Provid er: ELIUD DINERO Report Released Date/Time: Nov 29, 2021 07:53 PM Reporting Lab: [facility] [address] [facility] [address] Performing Lab: [facility] [address] [employer] [facility] [address] ALBUMIN 3.4 g/dL L 3.5-5.2 Nov 30, 2021 09:47 [facility] BASIC METABOLIC Specimen Type: PLASMA AM PANEL+MG No comment enter ed. Ordering Provid er: ANGIE MALHOTRA Report Released Date/Time: Nov 29, 2021 08:12 PM Reporting Lab: [facility] [address] [employer] [address] Performing Lab: [facility] [address] [facility] [address] CREATININE 1.2 mg/dL 0.7-1.2 UREA NITROGEN 18 mg/dL 8-26 GLUCOSE 342 mg/dL H 74-100 SODIUM 141 mmol/L 136-145 POTASSIUM 4.3 mmol/L 3.5-5.1 CHLORIDE 108 mmol/L H 98-107 CO2 26 mmol/L 22-29 CALCIUM 8.6 mg/dL 8.4-10.2 MAGNESIUM 1.5 mg/dL L 1.6-2.6 ANION GAP 7 mmol/L 5-15 CREAT EGFR(CKD-EPI) 63 >60 Nov 30, 2021 09:46 AM [facility] CBC Specim en Type: BLOOD No comment enter ed. Ordering Provid er: ANGIE MALHOTRA Report Released Date/Time: Nov 29, 2021 08:12 PM Reporting Lab: [facility] [address] [employer] [facility] [address] Performing Lab: [facility] [address] [employer] [facility] [address] WBC 10.61 10*3/uL 4.0-11.0 RBC 4.33 10*6/uL L 4.6-6.2 HGB 14.6 g/dL 13.5-17.9 HCT 45.2 41-54 MCV 104.4 fL H 80-100 MCH 33.7 pg H 27-33 MCHC 32.3 g/dL 32.0-37.5 PLT 71 10*3/uL L 150-400 MPV 13.9 fL H 7.4-10.4 RDW 14.7 H 11.5-14.5 IPF 17.8 H 0-10 Nov 30, 2021 06:09 [facility] FINGERSTICK GLUCOSE Speci men Type: BLOOD AM Comment: [place] Nurse Notified Ordering Provid er: IRENE BURNS TWO Report Released Date/Time: Nov 30, 2021 06:32 AM Reporting Lab: [facility] [address] [facility] [address] Performing Lab: [facility] [address] [facility] [address] FINGERSTICK GLUCOSE 165 mg/dL H 70-100 Nov 29, 2021 07:35 [facility] FINGERSTICK GLUCOSE Speci men Type: BLOOD PM Comment: [place] Nurse Notified Ordering Provid er: IRENE BURNS TWO Report Released Date/Time: Nov 29, 2021 07:48 PM Reporting Lab: [facility] [address] [facility] [address] Performing Lab: [facility] [address] [facility] [address] FINGERSTICK GLUCOSE 160 mg/dL H 70-100 Nov 29, 2021 06:52 [facility] FINGERSTICK GLUCOSE Speci men Type: BLOOD PM Comment: [place] Nurse Notified Ordering Provid er: SAKSHI CROUCH Report Released Date/Time: Nov 29, 2021 07:04 PM Reporting Lab: [facility] [address] [facility] [address] Performing Lab: [facility] [address] [facility] [address] FINGERSTICK GLUCOSE 161 mg/dL H 70-100 Nov 29, 2021 04:18 [facility] FINGERSTICK GLUCOSE Speci men Type: BLOOD PM No comment enter ed. Ordering Provid er: IRENE BURNS TWO Report Released Date/Time: Nov 29, 2021 08:08 PM Reporting Lab: [facility] [address] [facility] [address] Performing Lab: [facility] [address] [facility] [address] FINGERSTICK GLUCOSE 179 mg/dL H 70-100 Nov 29, 2021 03:26 [facility] POC ABG/ELECTROLYTES Spec imen Type: ARTERIAL BLOOD PM Comment: Sample Type = ARTERIAL Ordering Provid er: IRENE BURNS TWO Report Released Date/Time: Nov 29, 2021 07:53 PM Reporting Lab: [facility] [address] Performing Lab: [facility] [address] POC PH 7.321 L 7.35-7.45 POC PCO2 [...] mg/dL L 4.50-5.30 Nov 29, 2021 03:24 [facility] FINGERSTICK GLUCOSE Speci men Type: BLOOD PM Comment: Save R esult Ordering Provid er: TEAM,CARDS TWO Report Released Date/Time: Nov 29, 2021 08:08 PM Reporting Lab: [facility] [address] Performing Lab: [facility] [address] FINGERSTICK GLUCOSE 188 mg/dL H 70-100 Nov 29, 2021 02:06 [facility] POC ABG/ELECTROLYTES Spec imen Type: ARTERIAL BLOOD PM Comment: Sample Type = ARTERIAL Ordering Provid er: TEAM,CARDS TWO Report Released Date/Time: Nov 29, 2021 07:53 PM Reporting Lab: [facility] [address] Performing Lab: [facility] [address] POC PH 7.313 L 7.35-7.45 POC PCO2 [...] mg/dL L 4.50-5.30 Nov 29, 2021 02:04 [facility] FINGERSTICK GLUCOSE Speci men Type: BLOOD PM Comment: Save R esult Ordering Provid er: IRENE BURNS Report Released Date/Time: Nov 29, 2021 08:08 PM Reporting Lab: [facility] [address] [facility] [address] Performing Lab: [facility] [address] [facility] [address] FINGERSTICK GLUCOSE 236 mg/dL H 70-100 Nov 29, 2021 01:52 PM [facility] POC ACT Specim en Type: BLOOD No comment enter ed. Ordering Provid er: IRENE BURNS Report Released Date/Time: Dec 03, 2021 01:31 PM Reporting Lab: [facility] [address] [employer] [facility] [address] Performing Lab: [facility] [address] [employer] [facility] [address] POC ACT 135 s 84-139 Nov 29, 2021 01:16 PM [facility] POC ACT Specim en Type: BLOOD No comment enter ed. Ordering Provid er: IRENE BURNS Report Released Date/Time: Dec 03, 2021 01:30 PM Reporting Lab: [facility] [address] [facility] [address] Performing Lab: [facility] [address] [facility] [address] POC ACT 355 s 84-139 Nov 29, 2021 12:49 PM [facility] POC ACT Specim en Type: BLOOD No comment enter ed. Ordering Provid er: IRENE BURNS Report Released Date/Time: Dec 03, 2021 01:30 PM Reporting Lab: [facility] [address] [facility] [address] Performing Lab: [facility] [address] [facility] [address] POC ACT 367 s 84-139 Nov 29, 2021 12:48 [facility] POC ABG/ELECTROLYTES Spec imen Type: ARTERIAL BLOOD PM Comment: Sample Type = ARTERIAL Ordering Provid er: IRENE BURNS Report Released Date/Time: Nov 29, 2021 07:53 PM Reporting Lab: [facility] [address] [employer] [facility] [address] Performing Lab: [facility] [address] [employer] [address] POC PH 7.289 L 7.35-7.45 POC PCO2 [...] 4.7 mg/dL 4.50-5.30 Nov 29, 2021 12:45 [facility] FINGERSTICK GLUCOSE Speci men Type: BLOOD PM Comment: Abram R pranav Ordering Provid er: IRENE BURNS TWO Report Released Date/Time: Nov 29, 2021 08:08 PM [facility] [address] [facility] [address] FINGERSTICK GLUCOSE 186 mg/dL H 70-100 Nov 29, 2021 12:26 PM [facility] POC ACT Specim en Type: BLOOD No comment enter ed. Ordering Provid er: IRENE BURNS TWO Report Released Date/Time: Dec 03, 2021 01:30 PM Reporting Lab: [facility] [address] Performing Lab: [facility] [address] POC ACT 367 s 84-139 Nov 29, 2021 11:58 AM [facility] POC ACT Specim en Type: BLOOD No comment enter ed. Ordering Provid er: IRENE BURNS TWO Report Released Date/Time: Dec 03, 2021 01:30 PM Reporting Lab: [facility] [address] Performing Lab: [facility] [address] POC ACT 338 s 84-139 Nov 29, 2021 11:53 [facility] FINGERSTICK GLUCOSE Speci men Type: BLOOD AM Comment: Save R esult Ordering Provid er: IRENE BURNS TWO Report Released Date/Time: Nov 29, 2021 08:08 PM Reporting Lab: [facility] [address] Performing Lab: [facility] [address] FINGERSTICK GLUCOSE 225 mg/dL H 70-100 Nov 29, 2021 11:30 AM [facility] POC ACT Specim en Type: BLOOD No comment enter ed. Ordering Provid er: GRANTCARDS TWO Report Released Date/Time: Dec 03, 2021 01:30 PM Reporting Lab: [facility] [address] Performing Lab: [facility] [address] POC ACT 355 s 84-139 Nov 29, 2021 11:26 [facility] POC ABG/ELECTROLYTES Spec imen Type: ARTERIAL BLOOD AM Comment: Sample Type = ARTERIAL Ordering Provid er: IRENE BURNS TWO Report Released Date/Time: Nov 29, 2021 07:53 PM Reporting Lab: [facility] [address] Performing Lab: [facility] [address] POC PH 7.317 L 7.35-7.45 POC PCO2 [...] 4.8 mg/dL 4.50-5.30 Nov 29, 2021 11:06 [facility] FINGERSTICK GLUCOSE Speci men Type: BLOOD AM No comment enter ed. Ordering Provid er: IRENE BURNS Report Released Date/Time: Nov 29, 2021 08:08 PM Reporting Lab: [facility] [address] Performing Lab: [facility] [address] FINGERSTICK GLUCOSE 221 mg/dL H 70-100 Nov 29, 2021 11:02 AM [facility] POC ACT Specim en Type: BLOOD No comment enter ed. Ordering Provid er: IRENE BURNS Report Released Date/Time: Dec 03, 2021 01:30 PM Reporting Lab: [facility] [address] [employer] [facility] [address] Performing Lab: [facility] [address] [facility] [address] POC ACT 294 s 84-139 Nov 29, 2021 10:26 AM [facility] POC ACT Specim en Type: BLOOD No comment enter ed. Ordering Provid er: IRENE BURNS Report Released Date/Time: Dec 03, 2021 01:30 PM Reporting Lab: [facility] [address] [address] Performing Lab: [facility] [address] POC ACT 329 s 84-139 Nov 29, 2021 10:06 AM [facility] POC ACT Specim en Type: BLOOD No comment enter ed. Ordering Provid er: IRENE BURNS Report Released Date/Time: Dec 03, 2021 01:30 PM Reporting Lab: [facility] [address] [facility] [address] Performing Lab: [facility] [address] [facility] [address] POC ACT 312 s 84-139 Nov 29, 2021 09:58 [facility] POC ABG/ELECTROLYTES Spec imen Type: ARTERIAL BLOOD AM Comment: Sample Type = ARTERIAL Ordering Provid er: IRENE BURNS Report Released Date/Time: Nov 29, 2021 07:53 PM Reporting Lab: [facility] [address] [employer] [address] Performing Lab: [facility] [address] [facility] [address] POC PH 7.334 L 7.35-7.45 POC PCO2 [...] 4.9 mg/dL 4.50-5.30 Nov 29, 2021 09:56 [facility] FINGERSTICK GLUCOSE Speci men Type: BLOOD AM No comment enter ed. Ordering Provid er: RIENE BURNS TWO Report Released Date/Time: Nov 29, 2021 08:08 PM Reporting Lab: [facility] [address] [facility] [address] Performing Lab: [facility] [address] [facility] [address] FINGERSTICK GLUCOSE 194 mg/dL H 70-100 Nov 29, 2021 09:45 AM [facility] POC ACT Specim en Type: BLOOD No comment enter ed. Ordering Provid er: IRENE BURNS Report Released Date/Time: Dec 03, 2021 01:30 PM Reporting Lab: [facility] [address] [facility] [address] Performing Lab: [facility] [address] POC ACT 269 s 84-139 Nov 29, 2021 08:59 AM [facility] POC ACT Specim en Type: BLOOD No comment enter ed. Ordering Provid er: IRENE BURNS TWO Report Released Date/Time: Dec 03, 2021 01:30 PM Reporting Lab: [facility] [address] [employer] [address] Performing Lab: [facility] [address] [employer] [address] POC ACT 135 s 84-139 Nov 29, 2021 [facility] COVID-19 AND FLU/RSV Specime n Type: NASOPHARYNGEAL 07:05 AM DIAG PANEL(CEPHEID) Comment: Ce pheid GeneXpert (618) Ordering Provid er: KATHERINE FIGUEROA Report Released Date/Time: Oct 29, 2021 12:22 PM Reporting Lab: [facility] [address] [facility] [address] Performing Lab: [facility] [address] [employer] [facility] [address] COVID-19 (CEPHEID) Not Detected Not Dete cted INFLUENZA A (PCR) Not Detected Not Detec susanne INFLUENZA B (PCR) Not Detected Not Detec susanne RSV (PCR) Not Detected Not Detected Nov 29, 2021 [facility] BASIC METABOLIC Specimen Typ e: PLASMA 06:38 AM PANEL+MG No comment enter ed. Ordering Provid er: KATHERINE FIGUEROA Report Released Date/Time: Oct 29, 2021 12:22 PM Reporting Lab: [facility] [address] [employer] [address] Performing Lab: [facility] [address] CREATININE 1.4 mg/dL H 0.7-1.2 UREA NITROGEN 23 mg/dL 8-26 GLUCOSE 201 mg/dL H 74-100 SODIUM 143 mmol/L 136-145 POTASSIUM 4.3 mmol/L 3.5-5.1 CHLORIDE 108 mmol/L H 98-107 CO2 28 mmol/L 22-29 CALCIUM 9.9 mg/dL 8.4-10.2 MAGNESIUM 1.9 mg/dL 1.6-2.6 ANION GAP 7 mmol/L 5-15 CREAT EGFR(CKD-EPI) 53 L >60 Nov 29, 2021 06:38 [facility] CBC Specimen Type: BLOOD AM No comment enter ed. Ordering Provid er: KATHERINE FIGUEROA Report Released Date/Time: Oct 29, 2021 12:22 PM Reporting Lab: [facility] [address] [facility] [address] Performing Lab: [facility] [address] WBC 7.40 10*3/uL 4.0-11.0 RBC 5.17 10*6/uL 4.6-6.2 HGB 17.6 g/dL 13.5-17.9 HCT 52.7 41-54 MCV 101.9 fL H 80-100 MCH 34.0 pg H 27-33 MCHC 33.4 g/dL 32.0-37.5 PLT 88 10*3/uL L 150-400 MPV 14.3 fL H 7.4-10.4 RDW 14.4 11.5-14.5 IPF 18.0 H 0-10 Nov 29, 2021 [facility] PROTHROMBIN Specimen Typ e: PLASMA 06:38 AM TIME/INR No comment enter ed. Ordering Provid er: KATHERINE FIGUEROA Report Released Date/Time: Oct 29, 2021 12:22 PM Reporting Lab: [facility] [address] Performing Lab: [facility] [address] [facility] [address] .INR 1.1 0.8-1.1 .PT 13.1 s H 9.4-12.5 Nov 29, 2021 [facility] ACT PART Specimen Typ e: PLASMA 06:38 AM THROMBO TIME No comment enter ed. Ordering Provid er: KATHERINE FIGUEROA Report Released Date/Time: Oct 29, 2021 12:22 PM Reporting Lab: [facility] [address] [facility] [address] Performing Lab: [facility] [address] [facility] [address] APTT 33.3 s 25.1-36.5 Vital Signs: All taken on the encounter date This section contains inpatient and outpatient Vital Signs collected on the date of the Encounter. Date/Time Temperature Pulse Blood Respiratory SP02 Pain Height Weight Axel dy Source Pressure Rate Mass Index Nov 29, 98.3 F 96 99/66 18 /min 90 % 0 [place] 2021 11:07 /min mm[Hg] [facility] Nov 29 98 96 % [place] 2021 08:40 /min [facility] Nov 29, 232 lb 30 [place] 2021 08:38 [facility] Nov 29 112/73 97 % [place] 2021 08:35 /min mm[Hg] [facility] Nov 29, 95 113/69 90 % [place] 2021 08:15 /min mm[Hg] [facility] Social History: Smoking Status (Most current) and Tobacco Use (All prior to encounter date) This section includes the most current, and the historical, smoking and tobacco-related health factors from the [place] facility where the Encounter took place.Current Smoking Status This section includes the most current smoking, or tobacco-related health factor, from the [place] facility where the Encounter took place. Date/Time Current Smoking Status Comment Facility Nov 29[facility] 2021 08:[facility] ACCEPT Tobacco Use History This section includes a history of the smoking, or tobacco- related health factors, that were collected on or before the date of the Encounter. The data comes from the [place] facility where the Encounter took place. Date/Time Smoking Status/Tobacco Use Comment [facility] Mar 20, 2021 11:21 AM [...] Nov 15, 2020 10:00 AM VA-TOBACCO USE CUFF CUTTER NO [facility] Nov 15, 2020 [...] Jun 21, 2019 02:29 PM VA-TOBACCO USE CUFF CUTTER NO [facility] Jun 21, 2019 [...] Jun 09, 2018 03:48 PM VA-TOBACCO USE CUFF CUTTER NO [facility] Jun 09, 2018 03:48 PM VA-TOBACCO USE MED NO [place] [place] [facility] Jun 09, 2018 03:48 PM VA-TOBACCO USE WI 30 MIN OF WAKEUP [facility] Jun 09, 2018 03:48 PM VA-TOBACCO USER EVERY DAY [facility] Jun 20, 2017 07:53 AM CURRENT TOBACCO USER [facility] Jun 19, 2016 08:41 AM CURRENT TOBACCO USER [facility] Jun 21, 2015 08:15 AM CURRENT TOBACCO USER [facility] Mar 22, 2014 10:03 AM CURRENT TOBACCO USER [facility] Mar 25, 2013 11:01 AM CURRENT TOBACCO USER [facility] Feb 05, 2012 08:55 AM CURRENT TOBACCO USER [facility] January 01, 2011 09:26 AM CURRENT TOBACCO USER [facility] Mar 07, 2010 10:02 AM CURRENT TOBACCO USER [facility] Feb 21, 2009 08:17 AM CURRENT TOBACCO USER [facility] Nov 06, 2007 10:02 AM CURRENT TOBACCO USER [facility] January 02, 2007 10:33 AM CURRENT TOBACCO USER [facility] Advance Directives: All historical and current Section Date Range: From patient's date of to the date document was created. This section includes ALL of a patient's completed or amended [place] Advance and Rescinded Directives. The entries below indicate that a directive exists for the patient, but an actual copy is not included with this document. The data comes from all [facility]. Date Advance Directives Provider Source Mar 06, 2005 ADVANCE DIRECTIVE GANESH RODRIGUEZ [facility] Radiology Reports: +/- 30 days of the [...] the Encounter. The data comes from all [place] treatment facilities. Date/Time Radiology Report Provider Source Nov 30, 2021 07:05 AM CHEST 2 VIEWS PA AND LAT: MONET LUDWIG [facility] PAUL MICHELE [id number] -[birth year] M Exm Date: NOV 30, 2021@07:05 Req Phys: CHERRY MENDOZA Pat Loc: 3LSOB/ 2@08:05 Img Loc: MAIN X-RAY Service: zzcard sect (Case [id number] COMPLETE) CHEST 2 VIEWS PA AND LAT (R AD Detailed) CPT:28144 Reason for Study: s/p upgrade ICD adding an A l ead Clinical History: Post ICD or Pacemaker: Verify Lead Placement. [place] IS NOT under investigation for COVID-19 or is COVID-19 negative s/p upgrade ICD adding an A lead Responsible pr ovider name and phone number to notify for critical findings if other than user placing the order and pager listed below: User placing orders pager: [phone] LAST CREATININE 1.4 H (11/29/21) Report Status: Verified Date Reported: NOV 30, 2021 Date Verified: NOV 30, 2021 Service Order Clerk E-Sig:/[email or web address]/MONET LUDWIG MD, FACR, C CD Report: [...] 06:25 PM CHEST 1 VIEW: MAGDALENE DAVIDSON [facility] PA[place] MIC[place] [id number] -[birth year] M Exm Date: NOV 29, 2021@18:25 Req Phys: CHERRY MENDOZA Pat Loc: [facility] [address] [facility] (Req'g Loc) Img Loc: MAIN X-RAY Service: Unknown (Case [id number] COMPLETE) CHEST 1 VIEW (RAD Detailed) CPT:71128 Reason for Study: s/p upgrade ICD adding an A l ead Clinical History: Immediate Post-Op Pacemaker/ICD placement [place] IS NOT under investigation for COVID-19 or is COVID-19 negative s/p upgrade his ICD to dual chamber (adding an A lead) Responsible provider name and phone number to n otify for critical findings if other than user placing the order a nd pager listed below: User placing orders pager: [phone] LAST CREATININE 1.4 H (11/29/21) Report Status: Verified Date Reported: NOV 29, 2021 Date Verified: NOV 29, 2021 Service Order Clerk E-Sig:/[email or web address]/MAGDALENE DAVIDSON MD Report: DATE/TIME REGISTERED: 11/29/2021 [...] Primary Interpreting Staff: MAGDALENE DAVIDSON MD, RADIOLOGIST (Service Order Clerk) /LUAN
--- OUTSIDE RECORDS SUMMARY | 2022-04-02 16:12 | XMS_ITS | Encounter Summary ---
:1945 Author Organization [facility] Address [address] [place], [place] [id number] Care Team Providers Name Role Phone WILLA [...] MEDICARE MEDICARE PART Jun 25, PART B [id number] Saumya QUINONES PATIENT (WNR) (M) B 2011 78A 0 AVID MEDICARE MEDICARE PART Sep 25, PART A [id number] Saumya QUINONES PATIENT (WNR) (M) A 2009 78A 0 AVID MEDICARE MEDICARE PART Sep 25, PART A [id number] Saumya MICHELE (WNR) (M) A 2009 78A [id number] AVID MEDICARE MEDICARE PART Sep 25, PART B [id number] Saumya MICHELE ATTHOMAS (WNR) (M) B 2009 78A [phone] AVID Selected Encounter This section includes the information on record at [place] for the Encounter. Date/Time Encounter Type Encounter Reason Provider Source Description Nov 29, 2021 INJECTION EXT CARDIAC ICD-10-CM I48.19 THOLAKANAHAL 03:18 PM VENOGRAPHY CATHETERIZATION Other persistent LI,VENKATAKR atrial ISHNA NARAS fibrillation with Provider Comments: Persistent atrial fibrillation [id number] IHE Encounter Template Text not used by [place] Assessments - Encounter Diagnoses This section includes the primary and secondary diagnoses documented for the Encounter. Date/Time Primary/Secondary Diagnosis Name Provider Source Diagnosis Nov 30, 2021 PRIMARY Other persistent [place]ALL [place] 03:20 PM atrial IJOVI HCS fibrillation HNA NARAS Nov 30, 2021 SECONDARY Encntr for adjust [place] 03[place] PM and mgmt of I,AYAKARIS HCS automatic implntbl HNA NARAS card defib Nov 30, 2021 SECONDARY Typical atrial THOLAKANAHALL [facility] 03:20 PM flutter I,JOVI HCS HNA NARAS Plan of Treatment: Future Appointments (+ 6 months) and Future Tests (+/- 45 days) The Plan of Treatment section includes future care activities for the patient from all [place] [facility] This section includes future appointments and future orders which are active, pending orscheduled.Future Appointments This section includes appointments that were scheduled to occur 6 months from the date of the Encounter, up to a maximum of 20 appointments. The data comes from all [place] treatment [facility]. Appointment Date/Time Appointment Type Appointment Facili ty Name Dec 21, 2021 09:30 AM AMBULATORY - NONE [facility] January 07, 2022 01:30 PM AMBULATORY - MEDICINE [facility] Feb 05, 2022 07:00 AM AMBULATORY - [facility] Feb 07, 2022 09:30 AM AMBULATORY - [facility] Feb 13, 2022 10:00 AM AMBULATORY - [facility] Mar 21, 2022 09:30 AM AMBULATORY [place] [...] The data comes from all [place] treatment [facility]. Test Date/Time Test Type Test [...] AM Reporting Lab: [facility] [address] [facility] [address] Performing Lab: [facility] [address] FINGERSTICK GLUCOSE 284 mg/dL H 70-100 Nov 30, 2021 09:47 AM [facility] ALBUMIN Specim en Type: PLASMA No comment enter ed. Ordering Provid er: ELIUD DINERO Report Released Date/Time: Nov 29, 2021 07:53 PM Reporting Lab: [facility] [address] [facility] [address] Performing Lab: [facility] [address] [facility] [address] ALBUMIN 3.4 g/dL L 3.5-5.2 Nov 30, 2021 09:47 [facility] BASIC METABOLIC Specimen Type: PLASMA AM PANEL+MG No comment enter ed. Ordering Provid er: ANGIE MALHOTRA Report Released Date/Time: Nov 29, 2021 08:12 PM Reporting Lab: [facility] [address] [facility] [address] Performing Lab: [facility] [address] [facility] [address] CREATININE 1.2 mg/dL 0.7-1.2 UREA NITROGEN 18 [...] [facility] [address] [facility] [address] Performing Lab: [facility] [address] [facility] [address] WBC 10.61 10*3/uL 4.0-11.0 RBC 4.33 10*6/uL [...] [facility] [address] [facility] [address] Performing Lab: [facility] [address] [facility] [address] FINGERSTICK GLUCOSE 165 mg/dL H 70-100 Nov 29, 2021 07:35 [facility] FINGERSTICK GLUCOSE Speci men Type: BLOOD PM Comment: [place] Nurse Notified Ordering Provid er: IRENE BURNS TWO Report Released Date/Time: Nov 29, 2021 07:48 PM Reporting Lab: [facility] [address] [facility] [address] Performing Lab: [facility] [address] [facility] [address] FINGERSTICK GLUCOSE 160 mg/dL H 70-100 Nov 29, 2021 06:52 [facility] FINGERSTICK GLUCOSE Speci men Type: BLOOD PM Comment: [place] Nurse Notified Ordering Provid er: SAKSHI CROUCH Report Released Date/Time: Nov 29, 2021 07:04 PM Reporting Lab: [facility] [address] [facility] [address] Performing Lab: [facility] [address] FINGERSTICK GLUCOSE 161 mg/dL H 70-100 Nov 29, 2021 04:18 [facility] FINGERSTICK GLUCOSE Speci men Type: BLOOD PM No comment enter ed. Ordering Provid er: IRENE BURNS TWO Report Released Date/Time: Nov 29, 2021 08:08 PM Reporting Lab: [facility] [address] Performing Lab: [facility] [address] FINGERSTICK GLUCOSE 179 mg/dL H 70-100 Nov 29, 2021 03:26 [facility] POC ABG/ELECTROLYTES Spec imen Type: ARTERIAL BLOOD PM Comment: Sample Type = ARTERIAL Ordering Provid er: IRENE BURNS TWO Report Released Date/Time: Nov 29, 2021 07:53 PM Reporting Lab: [facility] [address] Performing Lab: [facility] [address] POC PH 7.321 L 7.35-7.45 POC PCO2 [...] Lab: [facility] [address] Performing Lab: [facility] [address] FINGERSTICK GLUCOSE 188 mg/dL H 70-100 Nov 29, 2021 02:06 [facility] POC ABG/ELECTROLYTES Spec imen Type: ARTERIAL BLOOD PM Comment: Sample Type = ARTERIAL Ordering Provid er: IRENE BURNS TWO Report Released Date/Time: Nov 29, 2021 07:53 PM Reporting Lab: [facility] [place] [address] [facility] [address] Performing Lab: [facility] [address] POC PH 7.313 L 7.35-7.45 POC PCO2 [...] Nov 29, 2021 08:08 PM Reporting Lab: [facility] [address] [facility] [address] Performing Lab: [facility] [address] FINGERSTICK GLUCOSE 236 mg/dL H 70-100 Nov 29, 2021 01:52 PM [facility] POC ACT Specim en Type: BLOOD No comment enter ed. Ordering Provid er: IRENE BURNS TWO Report Released Date/Time: Dec 03, 2021 01:31 PM Reporting Lab: [facility] [address] [facility] [address] Performing Lab: [facility] [address] [facility] [address] POC ACT 135 s 84-139 Nov 29, 2021 01:16 PM [facility] POC ACT Specim en Type: BLOOD No comment enter ed. Ordering Provid er: IRENE BURNS TWO Report Released Date/Time: Dec 03, 2021 01:30 PM [facility] [address] Performing Lab: [facility] [address] POC ACT 355 s 84-139 Nov 29, 2021 12:49 PM [facility] POC ACT Specim en Type: BLOOD No comment enter ed. Ordering Provid er: IRENE BURNS TWO Report Released Date/Time: Dec 03, 2021 01:30 PM Reporting Lab: [facility] [address] Performing Lab: [facility] [address] POC ACT 367 s 84-139 Nov 29, 2021 12:48 [facility] POC ABG/ELECTROLYTES Spec imen Type: ARTERIAL BLOOD PM Comment: Sample Type = ARTERIAL Ordering Provid er: IRENE BURNS TWO Report Released Date/Time: Nov 29, 2021 07:53 PM Reporting Lab: [facility] [address] Performing Lab: [facility] [address] POC PH 7.289 L 7.35-7.45 POC PCO2 [...] 2021 08:08 PM Reporting Lab: [facility] [address] Performing Lab: [facility] [address] FINGERSTICK GLUCOSE 186 mg/dL H 70-100 Nov 29, 2021 12:26 PM [facility] POC ACT Specim en Type: BLOOD No comment enter ed. Ordering Provid er: IRENE BURNS TWO Report Released Date/Time: Dec 03, 2021 01:30 PM Reporting Lab: [facility] [address] [facility] [address] Performing Lab: [facility] [address] [facility] [address] POC ACT 367 s 84-139 Nov 29, 2021 11:58 AM [facility] POC ACT Specim en Type: BLOOD No comment enter ed. Ordering Provid er: IRENE BURNS TWO Report Released Date/Time: Dec 03, 2021 01:30 PM Reporting Lab: [facility] [address] [facility] [address] Performing Lab: [facility] [address] [facility] [address] POC ACT 338 s 84-139 Nov 29, 2021 11:53 [facility] FINGERSTICK GLUCOSE Speci men Type: BLOOD AM Comment: Save R esult Ordering Provid er: IRENE BURNS TWO Report Released Date/Time: Nov 29, 2021 08:08 PM Reporting Lab: [facility] [address] [facility] [address] Performing Lab: [facility] [address] [facility] [address] FINGERSTICK GLUCOSE 225 mg/dL H 70-100 Nov 29, 2021 11:30 AM [facility] POC ACT Specim en Type: BLOOD No comment enter ed. Ordering Provid er: IRENE BURNS TWO Report Released Date/Time: Dec 03, 2021 01:30 PM Reporting Lab: [facility] [address] [facility] [address] Performing Lab: [facility] [place] [address] [facility] [address] POC ACT 355 s 84-139 Nov 29, 2021 11:26 [facility] POC ABG/ELECTROLYTES Spec imen Type: ARTERIAL BLOOD AM Comment: Sample Type = ARTERIAL Ordering Provid er: IRENE BURNS TWO Report Released Date/Time: Nov 29, 2021 07:53 PM Reporting Lab: [facility] [address] [facility] [address] Performing Lab: [facility] [address] [facility] [address] POC PH 7.317 L 7.35-7.45 POC PCO2 [...] [facility] [address] [facility] [address] Performing Lab: [facility] [address] [facility] [address] FINGERSTICK GLUCOSE 221 mg/dL H 70-100 Nov 29, 2021 11:02 AM [facility] POC ACT Specim en Type: BLOOD No comment enter ed. Ordering Provid er: IRENE BURNS Report Released Date/Time: Dec 03, 2021 01:30 PM Reporting Lab: [facility] [address] [facility] [address] Performing Lab: [facility] [address] [facility] [address] POC ACT 294 s 84-139 Nov 29, 2021 10:26 AM [facility] POC ACT Specim en Type: BLOOD No comment enter ed. Ordering Provid er: IRENE BURNS Report Released Date/Time: Dec 03, 2021 01:30 PM Reporting Lab: [facility] [address] [facility] [address] Performing Lab: [facility] [address] [facility] [address] POC ACT 329 s 84-139 Nov 29, 2021 10:06 AM [facility] POC ACT Specim en Type: BLOOD No comment enter ed. Ordering Provid er: IRENE BURNS Report Released Date/Time: Dec 03, 2021 01:30 PM Reporting Lab: [facility] [address] [facility] [address] Performing Lab: [facility] [address] [facility] [address] POC ACT 312 s 84-139 Nov 29, 2021 09:58 [facility] POC ABG/ELECTROLYTES Spec imen Type: ARTERIAL BLOOD AM Comment: Sample Type = ARTERIAL Ordering Provid er: IRENE BURNS Report Released Date/Time: Nov 29, 2021 07:53 PM Reporting Lab: [facility] [address] [facility] [address] Performing Lab: [facility] [address] [facility] [address] POC PH 7.334 L 7.35-7.45 POC PCO2 [...] [facility] [address] [facility] [address] Performing Lab: [facility] [address] [facility] [address] FINGERSTICK GLUCOSE 194 mg/dL H 70-100 Nov 29, 2021 09:45 AM [facility] POC ACT Specim en Type: BLOOD No comment enter ed. Ordering Provid er: IRENE BURNS TWO Report Released Date/Time: Dec 03, 2021 01:30 PM Reporting Lab: [facility] [address] [facility] [address] Performing Lab: [facility] [address] [facility] [address] POC ACT 269 s 84-139 Nov 29, 2021 08:59 AM [facility] POC ACT Specim en Type: BLOOD No comment enter ed. Ordering Provid er: IRENE BURNS TWO Report Released Date/Time: Dec 03, 2021 01:30 PM Reporting Lab: [facility] [address] [facility] [address] Performing Lab: [facility] [address] [facility] [address] POC ACT 135 s 84-139 Nov 29, 2021 [facility] COVID-19 AND FLU/RSV Specime n Type: NASOPHARYNGEAL 07:05 AM DIAG PANEL(CEPHEID) Comment: [employer] GeneXpert (618) Ordering Provid er: KATHERINE FIGUEROA Report Released Date/Time: Oct 29, 2021 12:22 PM Reporting Lab: [facility] [address] Performing Lab: [facility] [address] COVID-19 (CEPHEID) Not Detected Not Dete cted [...] Lab: [facility] [address] Performing Lab: [facility] [address] CREATININE 1.4 mg/dL H 0.7-1.2 UREA NITROGEN [...] Lab: [facility] [address] Performing Lab: [facility] [address] WBC 7.40 10*3/uL 4.0-11.0 RBC 5.17 10*6/uL [...] Oct 29, 2021 12:22 PM [facility] [address] Performing Lab: [facility] [address] .INR 1.1 0.8-1.1 .PT 13.1 s H 9.4-12.5 Nov 29, 2021 [facility] ACT PART Specimen Typ e: PLASMA 06:38 AM THROMBO TIME No comment enter ed. Ordering Provid er: KATHERINE FIGUEROA Report Released Date/Time: Oct 29, 2021 12:22 PM Reporting Lab: [facility] [address] [facility] [address] Performing Lab: [facility] [address] APTT 33.3 s 25.1-36.5 Vital Signs: All taken on the encounter date This section contains inpatient and outpatient Vital Signs collected on the date of the Encounter. Date/Time Temperature Pulse Blood Respiratory SP02 Pain Height Weight Axel dy Source Pressure Rate Mass Index Nov 29, 98.3 F 96 99/66 18 /min 90 % 0 [place] 2021 11:07 /min mm[Hg] [facility] Nov 29 96 % [place] 2021 08:40 /min [facility] Nov 29, 232 lb 30 [place] 2021 08:38 [place] Nov 29, 112/73 97 % [place] 2021 08:35 /min mm[Hg] [facility] Nov 29, 95 113/69 90 % [place] 2021 08:15 /min mm[Hg] [facility] Social History: Smoking Status (Most [...] 08:36 PM VA-V[facility]ES TOBACCO USE CURRENT NRT [facility] ACCEPT Tobacco Use History This section includes a history of the smoking, or tobacco- related health factors, that were collected on or before the date of the Encounter. The data comes from the [place] facility where the Encounter took place. 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 [facility] Nov 15, 2020 10:00 AM VA-TOBACCO USE MED NO [place] [facility] Nov 15, 2020 10:00 AM VA-TOBACCO USER EVERY DAY [facility] Jun 21, 2019 02:29 PM VA-TOBACCO USE 30 YEARS OR MORE [facility] Jun 21, 2019 02:29 PM VA-TOBACCO USE ADVICE [place] [facility] Jun 21, 2019 02:29 PM 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 [facility] Jun 21, 2019 02:29 PM VA-TOBACCO USE MED NO [place] [facility] Jun 21, 2019 02:29 PM VA-TOBACCO USE WI 30 MIN OF WAKEUP [facility] Jun 21, 2019 02:29 PM VA-TOBACCO USER EVERY DAY [facility] Jun 09, 2018 03:48 PM VA-TOBACCO USE 30 YEARS OR MORE [facility] Jun 09, 2018 03:48 PM VA-TOBACCO USE ADVICE [place] [facility] Jun 09, 2018 03:48 PM 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 [facility] Jun 09, 2018 03:48 PM VA-TOBACCO USE MED NO [place] [facility] Jun 09, 2018 03:48 PM VA-TOBACCO USE [place] 30 MIN OF WAKEUP [facility] Jun 09, 2018 03:48 PM VA-TOBACCO USER EVERY DAY [facility] Jun 20, 2017 07:53 AM CURRENT TOBACCO USER [facility] Jun 19, 2016 08:41 AM CURRENT TOBACCO USER [facility] Jun 21, 2015 08:15 AM CURRENT TOBACCO USER [facility] Mar 22, 2014 10:03 AM CURRENT TOBACCO USER [facility] Mar 25, 2013 11:01 AM CURRENT TOBACCO USER [facility] Feb 05, 2012 08:55 AM CURRENT TOBACCO USER [facility] January 01, 2011 09:26 AM CURRENT TOBACCO USER [facility] Mar 07, 2010 10:02 AM CURRENT TOBACCO USER [facility] Feb 21, 2009 08:17 AM CURRENT TOBACCO USER [facility] Nov 06, 2007 10:02 AM CURRENT TOBACCO USER [facility] January 02, 2007 10:33 AM CURRENT TOBACCO USER [facility] Advance Directives: All historical and current Section Date Range: From patient's date of to the date document was created. This section includes ALL of a patient's completed or amended [place] Advance and Rescinded Directives. The entries below indicate that a directive exists for the patient, but an actual copy is not included with this document. The data comes from all [facility]. Date Advance Directives Provider Source Mar 06, [...] MONET LUDWIG [facility] ABBEYELAYNEPAUL [id number] -[birth year] M Exm Date: NOV 30, 2021@07:05 Req Phys: CHERRY MENDOZA Swetha Loc: 3LSOB/ 2@08:05 Img Loc: MAIN X-RAY Service: zzcard sect (Case [id number] COMPLETE) CHEST 2 VIEWS PA AND LAT (R AD Detailed) CPT:82120 Reason for Study: s/p upgrade ICD adding [...] pager listed below: User placing orders pager: [phone] LAST CREATININE 1.4 H (11/29/21) Report Status: Verified Date Reported: NOV 30, 2021 Date Verified: NOV 30, 2021 Manager Core E-Sig:/ES/MONET LUDWIG MD, FACR, C CD Report: [...] 06:25 PM CHEST 1 VIEW: MAGDALENE DAVIDSON [facility] PAUL MICHELE [id number] -[birth year]UL [birth year] 9 M Exm Date: NOV 29, 2021@18:25 Req Phys: MICHAELVALENTINSofiaCHERRYANGELA Posada Loc: [facility] [address] [facility] (Req'g Loc) Img Loc: MAIN X-RAY Service: Unknown (Case [id number] COMPLETE) CHEST 1 VIEW (RAD Detailed) CPT:22679 Reason for Study: s/p upgrade ICD adding an A l ead Clinical History: Immediate Post-Op Pacemaker/ICD placement [place] IS NOT under investigation for COVID-19 or is COVID-19 negative s/p upgrade his ICD to dual chamber (adding an A lead) Responsible provider name and phone number to n otify for critical findings if other than user placing the order a nd pager listed below: User placing orders pager: [phone] LAST CREATININE 1.4 H (11/29/21) Report Status: Verified Date Reported: NOV 29, 2021 Date Verified: NOV 29, 2021 Manager Core E-Sig:/ES/MAGDALENE DAVIDSON MD Report: DATE/TIME REGISTERED: 11/29/2021 [...] Primary Interpreting Staff: MAGDALENE DAVIDSON MD, RADIOLOGIST (Brittany) /LUAN Encounter Notes: All associated encounter notes This section contains the clinical notes associated to the Encounter. Date/Time Encounter Note(s) Provider Source Nov 29, 2021 03:25 CARDIOLOGY PROCEDURE NOTE: LAUREANO FIGUEROA [facility] LOCAL TITLE: CARDIOLOGY ELECTROPHYSIOLOGY PROCE DURE NOTE RUKHSANA TORRES STANDARD TITLE: CARDIOLOGY PROCEDURE NOTE DATE OF NOTE: NOV 29, 2021@15:25 ENTRY DATE: NOV 30, 2021@15:26:02 AUTHOR: MARLEY FIGUEROA EXP COSIGNER: URGENCY: STATUS: COMPLETED [place] CART Program for Clinical Assessment, Report ing, and Tracking CARDIAC IMPLANTABLE ELECTRONIC DEVICE REPORT Patient: PAUL MICHELE SSN: [id number] D OB: 1945 AGE: 76 Procedure Date: 11/29/2021 Associated Assessment: EP (11/29/2021) Procedure Status: Elective outpatient procedure Attending: KATHERINE FIGUEROA Assisting: CHERRY MENDOZA PROCEDURE INDICATIONS Symptoms: Palpitations Dyspnea Dyspnea on Exertion Specific Conditions/Syndromes: Atrial Fibrillation Device Related Indications:Pulse Generator Scott shama Depletion Other Symptoms, Syndromes, Indications or Condi tions for Procedure: Atrial lead for diagnostic reasoning and for re active ATP PROCEDURES PERFORMED Upgrades: SC ICD to DDD ICD (29710,56777) TIME-OUT A time-out was performed addressing all safety requirements relevant to the procedure. Type of procedure, site, and patient ID were ve rified with the patient. The attending has assessed or re-assessed the p atient and there are no changes to the pre-procedure assessment. PROCEDURE DETAILS Procedures: 1. Single Chamber ICD Upgrade to dual Chamber. And generator change. Attending: Dr Figueroa EP Fellow: Dr Mendoza Procedure Date: 11/29/2021 Pre-operative Diagnosis: Single Chamber ICD wit h need of atrial monitoring for SVT discrimination. Post-operative diagnosis: s/p Single Chamber IC D Upgrade to dual Chamber. And generator change Complications: None. PROCEDURE The risks and benefits of the procedure were ex plained to the patient in full. The risks of the procedure include, but a re not limited to: pain, bleeding, blood transfusion reactions, infectio n, pneumothorax, perforation of vessels or heart, pericardial effusion, and . Informed Consent was obtained. The patient was brought to the EP lab in a fasting and hemodynamically stable condition. The patient w as prepped and draped in a sterile fashion. Sedation: This procedure was performed under ge neral anesthesia, Heart rate, blood pressure, oxygen saturation, and patient responses were monitored throughout the procedure with the assistance of the RN. The left chest wall was vigorously washed, prep ped, and sterilely draped. The chest wall was anesthetized with 2% lidocai ne. A subclavian venogram was performed. A 5 cm incision was made approximately 2 finger breadths from the clavicle over the previous incision. The subcutaneous ti ssue was carefully dissected down to the old generator. The generator was ta dorothy out of the pocket. The subclavian vein was accessed via the pocket and over the first rib under fluoroscopic guidance, and one guidewire was in serted down into the level of the IVC. A peel away sheath was inserted through the pepito dewire. The guidewire and dilator was removed. A right atrial lead was in serted through the sheath and positioned the lead at the RA appendage. The le ad was screwed into the myocardium. There was very good sensing and pac ing threshold at this position. Ten-volt pacing did not produce diaph ragmatic stimulation. The sheath was then peeled away. The right atrial l ead was sutured down into the underlying muscle using 0-ethibond. The pocket was then vigorously washed with anti biotic solution. The right atrial and right ventricular leads were inserte d into a new pulse generator (generator change was performed). The pulse gen erator and the lead were inserted into the subcutaneous pocket. The pocket was then closed in 3 layers using 2- 0 Vicryl for the deep layers and 4-0 Vicryl for the subcuticular layer. Ster i-Strips and a dressing were then applied over the incision site, and the pa tient was transported to a monitored bed. Dr. Figueroa was present throughout the e ntire procedure. EQUIPMENT 1.The Pulse Generator is [id number], Serial [id number] 2.The RA Lead is [id number], Serial [id number] 3.The RV Lead is a [id number], Serial [id number]. 4.Explanted: product: [id number] Serial: [id number] MEASUREMENTS The RA lead is sensing P waves of 1.3 mV and a pacing threshold of 0.75 V @ 0.40 msec with an impedance of 494ohms. The RV lead is sensing R waves of 4.1 mV and a pacing threshold of 0.50 V @ 0.40 msec with an impedance of 399 ohms. FINAL PROGRAMMING Luis Armando Settings: -Pacing mode: DDD. -Lower Rate Limit: 50 ppm. -Upper Rate Limit: 130 ppm. Tachy Settings: -MONITOR Zone: set at 450 bpm -VF zone: set at 320 bpm, Therapy: Defib PLAN 1. Wound care. 2. Antibiotics: for 3 days 3. CXR and Device interrogation in a.m. /billy/ CHERRY MENDOZA EP HANDICRAFT OR [employer] MANAGER I was present and supervised the procedure and I agree with the note. DEVICE DETAILS 1.The Pulse Generator is [id number], Serial [id number] 2.The RA Lead is [id number], Serial [id number] 3.The RV Lead is a [id number], Serial [id number]. 4.Explanted: product: [id number] Serial: [id number] MEASUREMENTS The RA lead is sensing P waves of 1.3 mV and a pacing threshold of 0.75 V @ 0.40 msec with an impedance of 494ohms. The RV lead is sensing R waves of 4.1 mV and a pacing threshold of 0.50 V @ 0.40 msec with an impedance of 399 ohms. FINAL PROGRAMMING Luis Armando Settings: -Pacing mode: DDD. -Lower Rate Limit: 50 ppm. -Upper Rate Limit: 130 ppm. Tachy Settings: -MONITOR Zone: set at 450 bpm -VF zone: set at 320 bpm, Therapy: Defib PERIPROCEDURAL COMPLICATIONS No Major Adverse Events or Complications EQUIPMENT/DEVICES No unexpected problems with equipment or device s. The attending was present throughout the procedu re. RECOMMENDATIONS PROCEDURE CODING Coding Procedure 79239,49362 PR ICD to DDD ICD 618 [facility]:[id number] 11/29/2021 /billy/ KATHERINE FIGUEROA MD STAFF PHYSICIAN - CARDIAC FISH FILLETER Signed: 11/30/2021 15:26 Nov 29, 2021 03:19 CARDIOLOGY PROCEDURE NOTE: LAUREANO FIGUEROA [facility] LOCAL TITLE: CARDIOLOGY ELECTROPHYSIOLOGY PROCE DURE NOTE RUKHSANA TORRES STANDARD TITLE: CARDIOLOGY PROCEDURE NOTE DATE OF NOTE: NOV 29, 2021@15:19 ENTRY DATE: NOV 30, 2021@15:19:13 AUTHOR: MARLEY FIGUEROA EXP COSIGNER: URGENCY: STATUS: COMPLETED [facility] Program for Clinical Assessment, Report ing, and Tracking ELECTROPHYSIOLOGY DIAGNOSTIC AND THERAPEUTIC PRO CEDURE REPORT Patient: PAUL MICHELE SSN: [id number] D OB: 1945 AGE: 76 Procedure Date: 11/29/2021 Associated Assessment: EP (11/29/2021) Procedure Status: Elective outpatient procedure Attending: KATHERINE FIGUEROA Assisting: CHERRY MENDOZA PROCEDURE INDICATIONS Symptoms: Palpitations Dyspnea on Exertion Indications: Atrial Fibrillation (AF) Atrial Flutter (AFL) PROCEDURES PERFORMED Diagnostic Procedures: Complex EP study (03632) Left atrial pacing/recording (23759-65) Therapeutic Procedures: Atrial fibrillation ablation (72125) Atrial flutter (cavotricuspid isthmus dependent ) ablation (44524) Adjunctive Procedures: Ultrasound guidance for vascular access (36388) Intracardiac Echocardiography (92700) 3D electroanatomic mapping (98890) Transseptal catheterization (60878) TIME-OUT A time-out was performed addressing all safety requirements relevant to the procedure. Type of procedure, site, and patient ID were ve rified with the patient. The attending has assessed or re-assessed the p atient and there are no changes to the pre-procedure assessment. PROCEDURE DETAILS Procedures: 1. Left Atrial Wide Area Circumferential Radiof requency Ablation. And Right Nancy line. 2. Trans-septal Puncture x1 3. Intracardiac Echocardiography. 4. Invasive Hemodynamic Monitoring. 5. 3D electro-anatomic Mapping using Carto3. 6. Esophageal temperature monitoring. 7. ICD upgrade with addition of an atrial lead. 8. Per-closure device 9. CTI line Ablation 10. Generator change. Attending: Dr Figueroa EP Fellow: Dr Mendoza Pre-operative Diagnosis: Paroxysmal Atrial Fibr illation resistant to AAT Post-operative diagnosis: S/p: 1. Left Atrial W lashonda Area Circumferential Radiofrequency Ablation. And Right Nancy line. CTI line Ablation Complications: None. Clinical Profile: HPI: Patient is a 76 year-old male with PMH inc luding DM2, HTN, COPD, tobacco use, CAD s/p [place] with angioplasty to RCA in 1993, s/p 3-vessel CABG 10/2010, ICM with single chamber ICD implanted 2 for primary prevention. In December 2020, patient was admitted to OSH with m ultiple ICD shocks (6) and found to be in atrial fibrillation, a new diagn osis for him. He was started on anticoagulation and rate-controlled. He also had some CHF and was diuresed. An echocardiogram was done showing an ejection fraction of 23%. Dr. Figueroa saw patient in f/u and felt the episodes were likely inappropr iate shocks due to AF with RVR, although one of the tachycardias appeared to be possible dual tachycardia possibly triggered by ATP. Dr. Figueroa recommended dofetilide admis ryan for rhythm control of AFib and consideration of PVI down the road. Shin sheth was admitted 03/20- 03/23/21 for dofetilide initiation - dose starte d at 250 mcg bid given borderline creatinine clearance. He tolerated t his well and was successfully cardioverted. He unfortunately albino tained an ICD shock on 03/30/21 due to VT and dofetilide was discontinue d due to concern for pro- arrhythmia. PVI has been arranged and is schedu led next month. At recent EP f/u it was noted patient was having frequent PVCs on EKG and Ziopatch obtained, showing ~11% overall PVC burden. PT is here today for afib ablation PROCEDURE The risks and benefits of the procedure were ex plained to the patient in full. The risks include, but are not limited to : pain, bleeding, blood transfusion reactions, arrhythmia, dissection o f vessels, cardiac perforation, pericardial effusion, stroke, and . Informed Consent was obtained. The patient was brought to the EP lab in a fasting and hemodynamically stable condition. The patient w as prepped and draped in a sterile fashion. This procedure was done under general anesthesia. Sheaths and Catheters: After local anesthesia with 2% lidocaine, vascu lar access was obtained using the modified Seldinger technique for the follow ing access points: Right Femoral Vein: - 7Fr Locking Sheath: A decapolar catheter was positioned into the coronary sinus. - 9Fr Sheath: Exchanged for an Agilis and Lamp trans-septal Sheath through which a [employer] Moran Thermacool Smartouch 3 .5 mm tip DF curve mapping and ablation catheter was placed into the LA. A s well as Pentarray catheter. Left Femoral Vein: - 9 Fr Sheath - an ICE catheter was placed into the RA / RV. - 6 FR sheath as a central line. EP study results (in milliseconds): Pre-ablation: In in flutter, VV= 519, GNT=792. Post-ablation: AA=VV= 579, UO=662, BKG=148, QT= 380. Procedure Description: After the above sheaths were in place, the cath eters were positioned under fluoroscopic guidance. The ICE catheter was francisco serenity into the RA. Baseline survey of the heart with the ICE did not reveal the presence of any significant pericardial effusion. A temperature probe was placed in the esophagus. At the start of the study pt was in atrial flut ter with concentric activation on the CS at a TCL of 260. We starte d LAT mapping of the right atrium that showed early meets late activation counterclockwise. we then entrained the tachycardia by pacing the CS 9,10 at 240 with a PPI of 296 (PPI-TCL= 36ms), we also repeated pacing at 230 with similar PPI measurements confirming reentrant tachycardia. Then we paced CS 1,2 PPI: 395 (PPI-SCF=396). We then performed a Cavotricuspid Isthmus ablat ion line. The ablation catheter was advanced into the cavotriscupid is thmus and checked in the both the REYES and MALAWIAN projections, with the catheter at 6 O'Clock in MALAWIAN. Radiofrequency Ablation was applied using 40 W for 30 second , and the catheter dragged from tricuspid annulus to IVC. The line was performed under Carto guidance. Post ablation, the TICT was 200 msec CS to ablation catheter (on the lateral side). Complete block was confi rmed using differential pacing/3D map with CSp pacing. We then performed the trans-septal access: The guide wire was advanced into the SVC. The Lamp trans-septal sheath and dilat or were advanced over the guide wire into the SVC and directed medially. The guide wire was removed, the dilator was aspirated, and the Bailys needl e was advanced. Using both the REYES and MALAWIAN projections, the trans-septal s ystem was then dragged down and the Fossa Ovalis was engaged. Tenting of th e interatrial septum was observed with ICE. The needle was advanced into the LA and the location confirmed using ICE. While fixing the needle, t he dilator was slightly advanced across the septum. The dilator and the n the sheath were advanced though the septum into the LA. The trans-septal needle was then withdrawn from the dilator. The dilator was removed, and the sheath was then flushed. A Heparin bolus and drip were started, with ser ial monitoring of ACTs to keep ACT around 350-400 We used the Pentarray and ablation catheters to build the LA, pulmonary vein and LA appendage geometry with FAM on Carto3. With the left atrial map in place,and the oesop hegeal probe in place, we then performed a wide area circumferential abla tion of the LA uding 40w anteriorly and 30 w posteriorly. And a Right Ca tj line abaltion was performed. The Pentarray was used to confirm el ectrical isolation of the pulmonary veins. Differential pacing was perfor med from the coronary sinus. Electrical isolation was achieved in all four p ulmonary veins. Exit block were confirmed The sheaths were pulled out of the left atrium into the RA. Heparin was stopped and protamine was given, after a test d ose had revealed no reaction. The catheters were withdrawn, and the sheaths w ere pulled. Perclosure devices were used, The patient was extubated th en transported to PACU for a monitored bed. ASSESSMENT: 1. Symptomatic Paroxysmal Atrial Fibrillation, refractory to AAT. 2.S/P 1. Left Atrial Wide Area Circumferential Radiofrequency Ablation. And Right Nancy line. 2.CTI line Ablation PLAN: 1. Re-start oral anticoagulation tomorrow. 2. Transfer to a monitored bed. PERIPROCEDURAL COMPLICATIONS No Major Adverse Events or Complications EQUIPMENT/DEVICES No unexpected problems with equipment or device s. The attending was present throughout the procedu re. RECOMMENDATIONS PROCEDURE CODING Coding Procedure 66330 Complex EP Study 57661-68 LA Pacing/Recording 46281 AF Ablation 83792 AFL (CTI) ablation 85652 Ultrasound Guidance for Vascular Access 55229 ICE 05111 3D Electroanatomic Mapping 13857 Transseptal Catheterization 618 [facility][id number] 11/29/2021 /billy/ KATHERINE FIGUEROA MD STAFF PHYSICIAN - CARDIAC FISH FILLETER Signed: 11/30/2021 15:20
--- OUTSIDE RECORDS SUMMARY | 2022-04-02 16:12 | XMS_ITS | Encounter Summary ---
:1945 Author Organization Department [facility] Address [address] [place] [address] Care Team Providers Name Role Phone SAKSHI [...] MEDICARE MEDICARE PART Jun 25, PART B [id number] Saumya QUINONES PATIENT (WNR) (M) B 2011 78A 0 AVID MEDICARE MEDICARE PART Sep 25, PART A [id number] Saumya QUINONES PATIENT (WNR) (M) A 2009 78A 0 AVID MEDICARE MEDICARE PART Sep 25, PART A [id number] Saumya MICHELE ATTHOMAS (WNR) (M) A 2009 78A [phone] AVID MEDICARE MEDICARE PART Sep 25, PART B [id number] Saumya MICHELE ATIENT (WNR) (M) B 2009 78A [phone] AVID Selected Encounter This section includes the information on record at [place] for the Encounter. Date/Time Encounter Type Encounter Description Reason Provider Source Nov 30, 2021 12:00 AM Inpatient Visit ADMIN PAT ACTIVTIES (MASNONCT) E Encounter Template Text not used by [place] Plan of Treatment: Future Appointments (+ 6 months) and Future Tests (+/- 45 days) The Plan of Treatment section includes future care activities for the patient from [facility] This section includes future appointments and future orders which are active, pending orscheduled.Future Appointments This section includes appointments that were scheduled to occur 6 months from the date of the Encounter, up to a maximum of 20 appointments. The data comes from all [place] treatment [facility]. Appointment Date/Time Appointment Type Appointment Facili ty Name Dec 21, 2021 09:30 AM AMBULATORY - NONE [facility] January 07, 2022 01:30 PM AMBULATORY - MEDICINE [facility] Feb 05, 2022 07:00 AM AMBULATORY - NONE [facility] Feb 07, 2022 09:30 AM AMBULATORY - NONE [facility] Feb 13, 2022 10:00 AM AMBULATORY [facility] Mar 21, 2022 09:30 AM AMBULATORY [facility] Active, Pending, and Scheduled Orders This section includes a listing of several types of active, pending, and scheduled orders, including clinic medications orders, diagnostic test orders, procedure orders and consult orders; where the start date of the order is 45 days before the date of the Encounter or 45 days after the date of the Encounter. The data comes from all [facility]. Test Date/Time Test Type Test Details [...] Nov 30, 2021 11:46 AM Reporting Lab: [facility] [place] [facility] [address] Performing Lab: [facility] I PHIL [facility] [address] FINGERSTICK GLUCOSE 284 mg/dL H 70-100 Nov 30, 2021 09:47 AM [facility] ALBUMIN Specim en Type: PLASMA No comment enter ed. Ordering Provid er: ELIUD DINERO Report Released Date/Time: Nov 29, 2021 07:53 PM Reporting Lab: [facility] [address] [facility] [address] Performing Lab: [facility] [address] [address] ALBUMIN 3.4 g/dL L 3.5-5.2 Nov 30, 2021 09:47 [facility] BASIC METABOLIC Specimen Type: PLASMA AM PANEL+MG No comment enter ed. Ordering Provid er: ANGIE MALHOTRA Report Released Date/Time: Nov 29, 2021 08:12 PM Reporting Lab: [facility] [address] [facility] [address] Performing Lab: [facility] [address] [facility] [address] CREATININE 1.2 mg/dL 0.7-1.2 UREA NITROGEN 18 [...] 08:12 PM Reporting Lab: [facility] [address] [facility] [address] Performing Lab: [facility] [address] [facility] [address] WBC 10.61 10*3/uL 4.0-11.0 RBC 4.33 10*6/uL [...] Lab: [facility] [address] [facility] [address] Performing Lab: [facility] [address] [facility] [address] FINGERSTICK GLUCOSE 165 mg/dL H 70-100 Nov 29, 2021 07:35 [facility] FINGERSTICK GLUCOSE Speci men Type: BLOOD PM Comment: [place] Nurse Notified Ordering Provid er: IRENE BURNS TWO Report Released Date/Time: Nov 29, 2021 07:48 PM Reporting [facility] [address] Performing Lab: [facility] [address] [facility] [address] FINGERSTICK GLUCOSE 160 mg/dL H 70-100 Nov 29, 2021 06:52 [facility] FINGERSTICK GLUCOSE Speci men Type: BLOOD PM Comment: [place] Nurse Notified Ordering Provid er: SAKSHI CROUCH Report Released Date/Time: Nov 29, 2021 07:04 PM Reporting Lab: [facility] [address] [facility] [address] Performing Lab: [facility] [address] [facility] [address] FINGERSTICK GLUCOSE 161 mg/dL H 70-100 Nov 29, 2021 04:18 [facility] FINGERSTICK GLUCOSE Speci men Type: BLOOD PM No comment enter ed. Ordering Provid er: IRENE BURNS TWO Report Released Date/Time: Nov 29, 2021 08:08 PM Reporting Lab: [facility] [address] [facility] [address] Performing [facility]: [facility] [address] FINGERSTICK GLUCOSE 179 mg/dL H 70-100 Nov 29, 2021 03:26 [facility] POC ABG/ELECTROLYTES Spec imen Type: ARTERIAL BLOOD PM Comment: Sample Type = ARTERIAL Ordering Provid er: IRENE BURNS TWO Report Released Date/Time: Nov 29, 2021 07:53 PM Reporting Lab: [facility] [address] Performing Lab: [facility] [address] POC PH 7.321 L 7.35-7.45 POC PCO2 [...] 2021 08:08 PM Reporting Lab: [facility] [address] Performing Lab: [facility] [address] FINGERSTICK GLUCOSE 188 mg/dL H 70-100 Nov 29, 2021 02:06 [facility] POC ABG/ELECTROLYTES Spec imen Type: ARTERIAL BLOOD PM Comment: Sample Type = ARTERIAL Ordering Provid er: IRENE BURNS TWO Report Released Date/Time: Nov 29, 2021 07:53 PM Reporting Lab: [facility] [address] Performing Lab: [facility] [address] POC PH 7.313 L 7.35-7.45 POC PCO2 [...] [facility] [address] [facility] [address] Performing Lab: [facility] [address] [facility] [address] FINGERSTICK GLUCOSE 236 mg/dL H 70-100 Nov 29, 2021 01:52 PM [facility] POC ACT Specim en Type: BLOOD No comment enter ed. Ordering Provid er: IRENE BURNS Report Released Date/Time: Dec 03, 2021 01:31 PM Reporting Lab: [facility] [address] [facility] [address] Performing Lab: [facility] [address] [facility] [address] POC ACT 135 s 84-139 Nov 29, 2021 01:16 PM [facility] POC ACT Specim en Type: BLOOD No comment enter ed. Ordering Provid er: IRENE BURNS Report Released Date/Time: Dec 03, 2021 01:30 PM Reporting Lab: [facility] [address] [facility] [address] Performing Lab: [facility] [address] [facility] [address] POC ACT 355 s 84-139 Nov 29, 2021 12:49 PM [facility] POC ACT Specim en Type: BLOOD No comment enter ed. Ordering Provid er: IRENE BURNS Report Released Date/Time: Dec 03, 2021 01:30 PM Reporting Lab: [facility] [address] [facility] [address] Performing Lab: [facility] [address] [facility] [address] POC ACT 367 s 84-139 Nov 29, 2021 12:48 [facility] POC ABG/ELECTROLYTES Spec imen Type: ARTERIAL BLOOD PM Comment: Sample Type = ARTERIAL Ordering Provid er: IRENE BURNS Report Released Date/Time: Nov 29, 2021 07:53 PM Reporting Lab: [facility] [address] [facility] [address] Performing Lab: [facility] [address] [facility] [address] POC PH 7.289 L 7.35-7.45 POC PCO2 [...] Nov 29, 2021 08:08 PM Reporting Lab: [facility] [address] [facility] [address] Performing Lab: [facility] [address] FINGERSTICK GLUCOSE 186 mg/dL H 70-100 Nov 29, 2021 12:26 PM [facility] POC ACT Specim en Type: BLOOD No comment enter ed. Ordering Provid er: IRENE BURNS Report Released Date/Time: Dec 03, 2021 01:30 PM Reporting Lab: [facility] [address] Performing Lab: [facility] [address] [facility] [address] POC ACT 367 s 84-139 Nov 29, 2021 11:58 AM [facility] POC ACT Specim en Type: BLOOD No comment enter ed. Ordering Provid er: IRENE BURNS TWO Report Released Date/Time: Dec 03, 2021 01:30 PM Reporting Lab: [facility] [address] [facility] [address] Performing Lab: [facility] [address] POC ACT 338 s 84-139 Nov 29, 2021 11:53 [facility] FINGERSTICK GLUCOSE Speci men Type: BLOOD AM Comment: Save R esult Ordering Provid er: IRENE BURNS TWO Report Released Date/Time: Nov 29, 2021 08:08 PM Reporting Lab: [facility] [address] [facility] [address] Performing Lab: [facility] [address] [facility] [address] FINGERSTICK GLUCOSE 225 mg/dL H 70-100 Nov 29, 2021 11:30 AM [facility] POC ACT Specim en Type: BLOOD No comment enter ed. Ordering Provid er: IRENE BURNS TWO Report Released Date/Time: Dec 03, 2021 01:30 PM Reporting Lab: [facility] [address] Performing Lab: [facility] [address] POC ACT 355 s 84-139 Nov 29, 2021 11:26 [facility] POC ABG/ELECTROLYTES Spec imen Type: ARTERIAL BLOOD AM Comment: Sample Type = ARTERIAL Ordering Provid er: IRENE BURNS TWO Report Released Date/Time: Nov 29, 2021 07:53 PM Reporting Lab: [facility] [address] Performing Lab: [facility] [address] POC PH 7.317 L 7.35-7.45 POC PCO2 [...] 2021 08:08 PM Reporting Lab: [facility] [address] Performing Lab: [facility] [address] FINGERSTICK GLUCOSE 221 mg/dL H 70-100 Nov 29, 2021 11:02 AM [facility] POC ACT Specim en Type: BLOOD No comment enter ed. Ordering Provid er: IRENE BURNS Report Released Date/Time: Dec 03, 2021 01:30 PM Reporting Lab: [facility] [address] [facility] [address] Performing Lab: [facility] [address] [facility] [address] POC ACT 294 s 84-139 Nov 29, 2021 10:26 AM [facility] POC ACT Specim en Type: BLOOD No comment enter ed. Ordering Provid er: IRENE BURNS Report Released Date/Time: Dec 03, 2021 01:30 PM Reporting Lab: [facility] [address] [facility] [address] Performing Lab: [facility] [address] [facility] [address] POC ACT 329 s 84-139 Nov 29, 2021 10:06 AM [facility] POC ACT Specim en Type: BLOOD No comment enter ed. Ordering Provid er: IRENE BURNS Report Released Date/Time: Dec 03, 2021 01:30 PM Reporting Lab: [facility] [address] [facility] [address] Performing Lab: [facility] [address] [facility] [address] POC ACT 312 s 84-139 Nov 29, 2021 09:58 [facility] POC ABG/ELECTROLYTES Spec imen Type: ARTERIAL BLOOD AM Comment: Sample Type = ARTERIAL Ordering Provid er: IRENE BURNS Report Released Date/Time: Nov 29, 2021 07:53 PM Reporting Lab: [facility] [address] [facility] [address] Performing Lab: [facility] [address] [facility] [address] POC PH 7.334 L 7.35-7.45 POC PCO2 [...] [facility] [address] [facility] [address] Performing Lab: [facility] [address] [facility] [address] FINGERSTICK GLUCOSE 194 mg/dL H 70-100 Nov 29, 2021 09:45 AM [facility] POC ACT Specim en Type: BLOOD No comment enter ed. Ordering Provid er: IRENE BURNS Report Released Date/Time: Dec 03, 2021 01:30 PM Reporting Lab: [facility] [address] [facility] [address] Performing Lab: [facility] [address] [facility] [address] POC ACT 269 s 84-139 Nov 29, 2021 08:59 AM [facility] POC ACT Specim en Type: BLOOD No comment enter ed. Ordering Provid er: IRENE BURNS Report Released Date/Time: Dec 03, 2021 01:30 PM Reporting Lab: [facility] [address] [facility] [address] Performing Lab: [facility] [address] [facility] [address] POC ACT 135 s 84-139 Nov 29, 2021 [facility] COVID-19 AND FLU/RSV Specime n Type: NASOPHARYNGEAL 07:05 AM DIAG PANEL(CEPHEID) Comment: Ce pheid GeneXpert (618) Ordering Provid er: KATHERINE FIGUEROA Report Released Date/Time: Oct 29, 2021 12:22 PM Reporting Lab: [facility] [address] [facility] [address] Performing Lab: [facility] [address] [facility] [address] COVID-19 (CEPHEID) Not Detected Not Dete cted [...] Reporting Lab: [facility] [address] [facility] [address] Performing Lab: [facility] [address] CREATININE 1.4 mg/dL H 0.7-1.2 UREA NITROGEN [...] 2021 12:22 PM Reporting Lab: [facility] [address] Performing Lab: [facility] [address] WBC 7.40 10*3/uL 4.0-11.0 RBC 5.17 10*6/uL [...] PM Reporting Lab: [facility] [address] [facility] [address] Performing Lab: [facility] [address] [facility] [address] .INR 1.1 0.8-1.1 .PT 13.1 s H 9.4-12.5 Nov 29, 2021 [facility] ACT PART Specimen Typ e: PLASMA 06:38 AM THROMBO TIME No comment enter ed. Ordering Provid er: KATHERINE FIGUEROA Report Released Date/Time: Oct 29, 2021 12:22 PM Reporting Lab: [facility] [address] [facility] [address] Performing Lab: [facility] [address] [facility] [address] APTT 33.3 s 25.1-36.5 Vital Signs: All taken on the encounter date This section contains inpatient and outpatient Vital Signs collected on the date of the Encounter. Date/Time Temperature Pulse Blood Respiratory SP02 Pain Height Weight Axel dy Source Pressure Rate Mass Index Nov 30, 100 104/72 18 /min 92 % [place] 2021 10:19 /min mm[Hg] [facility] Nov 30, 99.0 F 92 102/69 18 /min 90 % 0 [place] 2021 07:53 /min mm[Hg] [facility] Nov 30, 88 98/65 16 /min 88 % [place] 2021 03:56 /min mm[Hg] [facility] [...] Comment Facility Nov 29, 2021 08:36 PM [facility] TOBACCO USE CURRENT NRT [facility] ACCEPT Tobacco Use History This section includes a history of the smoking, or tobacco- related health factors, that were collected on or before the date of the Encounter. The data comes from the [place] facility where the Encounter took place. Date/Time Smoking Status/Tobacco Use Comment [facility] sigrid Mar 20, 2021 11:21 AM [facility] TOBACCO USE CURRENT NRT [facility] DECLINE Nov 15, 2020 10:00 AM VA-TOBACCO DOESNT USE WI 30 MIN [facility] WAKEUP Nov 15, 2020 10:00 AM VA-TOBACCO USE 30 YEARS OR MORE [facility] Nov 15, 2020 10:00 AM VA-TOBACCO USE ADVICE [place] [facility] Nov 15, 2020 10:00 AM VA-TOBACCO USE WIRE COILER NO [facility] Nov 15, 2020 10:00 AM VA-TOBACCO USE MED NO [place] [facility] Nov 15, 2020 10:00 AM VA-TOBACCO USER EVERY DAY [facility] Jun 21, 2019 02:29 PM VA-TOBACCO USE 30 YEARS OR MORE [facility] Jun 21, 2019 02:29 PM VA-TOBACCO USE ADVICE [place] [facility] Jun 21, 2019 02:29 PM VA-TOBACCO USE WIRE COILER NO [facility] Jun 21, 2019 02:29 PM VA-TOBACCO USE MED NO [place] [facility] Jun 21, 2019 02:29 PM VA-TOBACCO USE WI 30 MIN OF WAKEUP [facility] Jun 21, 2019 02:29 PM VA-TOBACCO USER EVERY DAY [facility] Jun 09, 2018 03:48 PM VA-TOBACCO USE 30 YEARS OR MORE [facility] Jun 09, 2018 03:48 PM VA-TOBACCO USE ADVICE [place] [facility] Jun 09, 2018 03:48 PM VA-TOBACCO USE WIRE COILER NO [facility] Jun 09, 2018 03:48 PM VA-TOBACCO USE MED NO [place] [facility] Jun 09, 2018 03:48 PM VA-TOBACCO USE WI 30 MIN OF WAKEUP [facility] Jun 09, 2018 03:48 PM VA-TOBACCO USER EVERY DAY [facility] Jun 20, 2017 07:53 AM CURRENT TOBACCO USER [facility] Jun 19, 2016 08:41 AM CURRENT TOBACCO USER [facility] Jun 21, 2015 08:15 AM CURRENT TOBACCO USER [facility] Mar 22, 2014 10:03 AM CURRENT TOBACCO USER [facility] Mar 25, 2013 11:01 AM CURRENT TOBACCO USER [facility] Feb 05, 2012 08:55 AM CURRENT TOBACCO USER [facility] January 01, 2011 09:26 AM CURRENT TOBACCO USER [facility] Mar 07, 2010 10:02 AM CURRENT TOBACCO USER [facility] Feb 21, 2009 08:17 AM CURRENT [...] MONET LUDWIG [facility] PAUL MICHELE [id number] -[birth year] M Exm Date: NOV 30, 2021@07:05 Req Phys: CHERRY MENDOZA Loc: 3LSOB/ 2@08:05 Img Loc: MAIN X-RAY Service: zzcard sect (Case [id number] COMPLETE) CHEST 2 VIEWS PA AND LAT (R AD Detailed) CPT:95437 Reason for Study: s/p upgrade ICD adding [...] pager listed below: User placing orders pager: [phone] LAST CREATININE 1.4 H (11/29/21) Report Status: Verified Date Reported: NOV 30, 2021 Date Verified: NOV 30, 2021 Cardiopulmonary Specialist E-Sig:/ES/MONET LUDWIG MD, FACR, C CD Report: [...] 06:25 PM CHEST 1 VIEW: MAGDALENE DAVIDSON [facility] [place] [id number] -[birth year] 9 M Exm Date: NOV 29, 2021@18:25 Req Phys: CHERRY MENDOZA Pat Loc: [facility] [address] A[facility] (Req'g Loc) Img Loc: MAIN X-RAY Service: Unknown (Case [id number] COMPLETE) CHEST 1 VIEW (RAD Detailed) CPT:01384 Reason for Study: s/p upgrade ICD adding [...] pager listed below: User placing orders pager: [phone] LAST CREATININE 1.4 H (11/29/21) Report Status: Verified Date Reported: NOV 29, 2021 Date Verified: NOV 29, 2021 Cardiopulmonary Specialist E-Sig:/HOLLIE/MAGDALENE DAVIDSON MD Report: DATE/TIME REGISTERED: 11/29/2021 [...] Primary Interpreting Staff: MAGDALENE DAVIDSON MD, RADIOLOGIST (Cardiopulmonary Specialist) /LUAN Encounter Notes: All associated encounter notes This section contains the clinical notes associated to the Encounter. Date/Time Encounter Note(s) Provider Source Nov 30, 2021 12:00 AM SCANNED REPORT: DARLENE BUTLER [facility] LOCAL TITLE: TELEMETRY RHYTHM STRIPS STANDARD TITLE: SCANNED REPORT DATE OF NOTE: NOV 30, 2021 ENTRY DATE: DEC 04 022@22:26:09 AUTHOR: DARLENE BUTLER EXP COSIGNER: URGENCY: STATUS: COMPLETED VistA Imaging - Scanned Document /es/ DARLENE BUTLER [facility] [employer] Signed: 12/04/2021 22:26
--- OUTSIDE RECORDS SUMMARY | 2022-04-02 16:12 | XMS_ITS | Encounter Summary ---
:1945 Author Organization Department [facility] Address [address] [place] [address] Care Team Providers Name Role Phone SAKSHI [...] MEDICARE MEDICARE PART Jun 25, PART B [id number] Saumya QUINONES PATIENT (WNR) (M) B 2011 78A 0 AVID MEDICARE MEDICARE PART Sep 25, PART A [id number] Saumya QUINONES PATIENT (WNR) (M) A 2009 78A 0 AVID MEDICARE MEDICARE PART Sep 25, PART A [id number] Saumya MICHELE ATTHOMAS (WNR) (M) A 2009 78A [id number] AVID MEDICARE MEDICARE PART Sep 25, PART B [id number] Saumya MICHELE ATIENT (WNR) (M) B 2009 78A [phone] AVID Selected Encounter This section includes the information on record at [place] for the Encounter. Date/Time Encounter Type Encounter Description Reason Provider Source Nov 29, 2021 07:46 Inpatient Visit ADMIN PAT ACTIVTIES SYS [place],CIS-ARK PM (MASNONCT) IHE Encounter Template Text not used by [place] Plan of Treatment: Future Appointments (+ 6 months) and Future Tests (+/- 45 days) The Plan of Treatment section includes future care activities for the patient from all [place] [facility]. This section includes future appointments and future orders which are active, pending orscheduled.Future Appointments This section includes appointments that were scheduled to occur 6 months from the date of the Encounter, up to a maximum of 20 appointments. The data comes from all [facility]. Appointment Date/Time Appointment Type Appointment Facili ty Name Dec 21, 2021 09:30 AM AMBULATORY - NONE [facility] January 07, 2022 01:30 PM AMBULATORY - MEDICINE [facility] Feb 05, 2022 07:00 AM AMBULATORY - [facility] Feb 07, 2022 09:30 AM AMBULATORY - NONE [facility] Feb 13, 2022 10:00 AM AMBULATORY [facility] Mar 21, 2022 09:30 AM AMBULATORY [facility] Active, Pending, and Scheduled [...] the Encounter. The data comes from all [facility]. Test Date/Time Test Type Test Details Facility Name Nov 29, 2021 06:30 AM Laboratory - Blood Bank TYPE & SCREEN - LA B [facility] Order BLOOD SP Dec 15, 2021 12:00 AM Laboratory - Chemistry BASIC METABOLIC MIN [facility] Order PANEL+MG PLASMA SP Lab [...] Reference Range Comment Nov 30, 2021 11:26 [facility] FINGERSTICK GLUCOSE Speci men Type: BLOOD AM Comment: [place] Nurse Notified Ordering Provid er: TEAM,CARDS TWO Report Released Date/Time: Nov 30, 2021 11:46 AM Reporting Lab: [facility] ONE [facility] [address] Performing Lab: [facility] I [facility] [address] FINGERSTICK GLUCOSE 284 mg/dL H 70-100 Nov 30, 2021 09:47 AM [facility] ALBUMIN Specim en Type: PLASMA No comment enter ed. Ordering Provid er: ELIUD DINERO Report Released Date/Time: Nov 29, 2021 07:53 PM Reporting Lab: [facility] [address] [facility] [address] Performing Lab: [facility] [address] [facility] [address] ALBUMIN 3.4 g/dL L 3.5-5.2 Nov 30, 2021 09:47 [facility] BASIC METABOLIC Specimen Type: PLASMA AM PANEL+MG No comment enter ed. Ordering Provid er: ANGIE MALHOTRA Report Released Date/Time: Nov 29, 2021 08:12 PM Reporting Lab: [facility] [address] [facility] [address] Performing Lab: [facility] [address] CREATININE 1.2 mg/dL 0.7-1.2 UREA NITROGEN 18 mg/dL 8-26 GLUCOSE 342 mg/dL H 74-100 SODIUM 141 mmol/L 136-145 POTASSIUM 4.3 mmol/L 3.5-5.1 CHLORIDE 108 mmol/L H 98-107 CO2 26 mmol/L 22-29 CALCIUM 8.6 mg/dL 8.4-10.2 MAGNESIUM 1.5 mg/dL L 1.6-2.6 ANION GAP 7 mmol/L 5-15 CREAT EGFR(CKD-EPI) 63 >60 Nov 30, 2021 09:46 AM [facility] CBC Specim en Type: BLOOD No comment enter ed. Ordering Provid er: ANGIE MALHOTRA Report Released Date/Time: Nov 29, 2021 08:12 PM Reporting Lab: [facility] [address] [facility] [address] Performing Lab: [facility] [address] [facility] [address] WBC 10.61 10*3/uL 4.0-11.0 RBC 4.33 10*6/uL L 4.6-6.2 HGB 14.6 g/dL 13.5-17.9 HCT 45.2 41-54 MCV 104.4 fL H 80-100 MCH 33.7 pg H 27-33 MCHC 32.3 g/dL 32.0-37.5 PLT 71 10*3/uL L 150-400 MPV 13.9 fL H 7.4-10.4 RDW 14.7 H 11.5-14.5 IPF 17.8 H 0-10 Nov 30, 2021 06:09 [facility] FINGERSTICK GLUCOSE Speci men Type: BLOOD AM Comment: [place] Nurse Notified Ordering Provid er: TEAM,CARDS TWO Report Released Date/Time: Nov 30, 2021 06:32 AM Reporting Lab: [facility] [address] [facility] [address] Performing Lab: [facility] [address] [facility] [address] FINGERSTICK GLUCOSE 165 mg/dL H 70-100 Nov 29, 2021 07:35 [facility] FINGERSTICK GLUCOSE Speci men Type: BLOOD PM Comment: [place] Nurse Notified Ordering Provid er: GRANTCARDS TWO Report Released Date/Time: Nov 29, 2021 07:48 PM Reporting Lab: [facility] [address] [facility] [address] Performing Lab: [facility] [address] [facility] [address] FINGERSTICK GLUCOSE 160 mg/dL H 70-100 Nov 29, 2021 06:52 [facility] FINGERSTICK GLUCOSE Speci men Type: BLOOD PM Comment: [place] Nurse Notified Ordering Provid er: SAKSHI CROUCH Report Released Date/Time: Nov 29, 2021 07:04 PM Reporting Lab: [facility] [address] [facility] [address] Performing Lab: [facility] [address] [facility] [address] FINGERSTICK GLUCOSE 161 mg/dL H 70-100 Nov 29, 2021 04:18 [facility] FINGERSTICK GLUCOSE Speci men Type: BLOOD PM No comment enter ed. Ordering Provid er: GRANTCARDS TWO Report Released Date/Time: Nov 29, 2021 08:08 PM Reporting Lab: [facility] [address] [facility] [address] Performing Lab: [facility] [address] [facility] [address] FINGERSTICK GLUCOSE 179 mg/dL H 70-100 Nov 29, 2021 03:26 [facility] POC ABG/ELECTROLYTES Spec imen Type: ARTERIAL BLOOD PM Comment: Sample Type = ARTERIAL Ordering Provid er: TEAM,CARDS TWO Report Released Date/Time: Nov 29, 2021 07:53 PM Reporting Lab: [facility] [address] Performing Lab: [facility] [address] POC PH 7.321 L 7.35-7.45 POC PCO2 [...] mg/dL L 4.50-5.30 Nov 29, 2021 03:24 [facility] FINGERSTICK GLUCOSE Speci men Type: BLOOD PM Comment: Save R esult Ordering Provid er: IRENE BURNS TWO Report Released Date/Time: Nov 29, 2021 08:08 PM Reporting Lab: [facility] [address] Performing Lab: [facility] [address] FINGERSTICK GLUCOSE 188 mg/dL H 70-100 Nov 29, 2021 02:06 [facility] POC ABG/ELECTROLYTES Spec imen Type: ARTERIAL BLOOD PM Comment: Sample Type = ARTERIAL Ordering Provid er: IRENE BURNS TWO Report Released Date/Time: Nov 29, 2021 07:53 PM Reporting Lab: [facility] [address] Performing Lab: [facility] [address] POC PH 7.313 L 7.35-7.45 POC PCO2 [...] mg/dL L 4.50-5.30 Nov 29, 2021 02:04 [facility] FINGERSTICK GLUCOSE Speci men Type: BLOOD PM Comment: Save R esult Ordering Provid er: IRENE BURNS Report Released Date/Time: Nov 29, 2021 08:08 PM Reporting Lab: [facility] [address] [facility] [address] Performing Lab: [facility] [address] [facility] [address] FINGERSTICK GLUCOSE 236 mg/dL H 70-100 Nov 29, 2021 01:52 PM [facility] POC ACT Specim en Type: BLOOD No comment enter ed. Ordering Provid er: IRENE BURNS Report Released Date/Time: Dec 03, 2021 01:31 PM Reporting Lab: [facility] [address] [facility] [address] Performing Lab: [facility] [address] [facility] [address] POC ACT 135 s 84-139 Nov 29, 2021 01:16 PM [facility] POC ACT Specim en Type: BLOOD No comment enter ed. Ordering Provid er: IRENE BURNS Report Released Date/Time: Dec 03, 2021 01:30 PM Reporting Lab: [facility] [address] [facility] [address] Performing Lab: [facility] [address] [facility] [address] POC ACT 355 s 84-139 Nov 29, 2021 12:49 PM [facility] POC ACT Specim en Type: BLOOD No comment enter ed. Ordering Provid er: IRENE BURNS Report Released Date/Time: Dec 03, 2021 01:30 PM Reporting Lab: [facility] [address] [facility] [address] Performing Lab: [facility] [address] [facility] [address] POC ACT 367 s 84-139 Nov 29, 2021 12:48 [facility] POC ABG/ELECTROLYTES Spec imen Type: ARTERIAL BLOOD PM Comment: Sample Type = ARTERIAL Ordering Provid er: IRENE BURNS Report Released Date/Time: Nov 29, 2021 07:53 PM Reporting Lab: [facility] [address] [facility] [address] Performing Lab: [facility] [address] [facility] [address] POC PH 7.289 L 7.35-7.45 POC PCO2 [...] 4.7 mg/dL 4.50-5.30 Nov 29, 2021 12:45 [facility] FINGERSTICK GLUCOSE Speci men Type: BLOOD PM Comment: [place] Ordering Provid er: IRENE BURNS Report Released Date/Time: Nov 29, 2021 08:08 PM Reporting Lab: [facility] [address] [facility] [address] Performing Lab: [facility] [address] FINGERSTICK GLUCOSE 186 mg/dL H 70-100 Nov 29, 2021 12:26 PM [facility] POC ACT Specim en Type: BLOOD No comment enter ed. Ordering Provid er: IRENE BURNS Report Released Date/Time: Dec 03, 2021 01:30 PM Reporting Lab: [facility] [address] [facility] [address] Performing Lab: [facility] [address] [facility] [address] POC ACT 367 s 84-139 Nov 29, 2021 11:58 AM [facility] POC ACT Specim en Type: BLOOD No comment enter ed. Ordering Provid er: IRENE BURNS Report Released Date/Time: Dec 03, 2021 01:30 PM Reporting Lab: [facility] [address] [facility] [address] Performing Lab: [facility] [address] POC ACT 338 s 84-139 Nov 29, 2021 11:53 [facility] FINGERSTICK GLUCOSE Speci men Type: BLOOD AM Comment: Save R esult Ordering Provid er: GRANTCARDS TWO Report Released Date/Time: Nov 29, 2021 08:08 PM Reporting Lab: [facility] [address] [facility] [address] Performing Lab: [facility] [address] [facility] [address] FINGERSTICK GLUCOSE 225 mg/dL H 70-100 Nov 29, 2021 11:30 AM [facility] POC ACT Specim en Type: BLOOD No comment enter ed. Ordering Provid er: IRENE BURNS TWO Report Released Date/Time: Dec 03, 2021 01:30 PM Reporting Lab: [facility] [address] Performing Lab: [facility] [address] POC ACT 355 s 84-139 Nov 29, 2021 11:26 [facility] POC ABG/ELECTROLYTES Spec imen Type: ARTERIAL BLOOD AM Comment: Sample Type = ARTERIAL Ordering Provid er: GRANTCARDS TWO Report Released Date/Time: Nov 29, 2021 07:53 PM Reporting Lab: [facility] [address] Performing Lab: [facility] [address] POC PH 7.317 L 7.35-7.45 POC PCO2 [...] 4.8 mg/dL 4.50-5.30 Nov 29, 2021 11:06 [facility] FINGERSTICK GLUCOSE Speci men Type: BLOOD AM No comment enter ed. Ordering Provid er: IRENE BURNS TWO Report Released Date/Time: Nov 29, 2021 08:08 PM Reporting Lab: [facility] [address] Performing Lab: [facility] [place] [place] [address] FINGERSTICK GLUCOSE 221 mg/dL H 70-100 Nov 29, 2021 11:02 AM [facility] POC ACT Specim en Type: BLOOD No comment enter ed. Ordering Provid er: IRENE BURNS Report Released Date/Time: Dec 03, 2021 01:30 PM Reporting Lab: [facility] [address] [facility] [address] Performing Lab: [facility] [address] POC ACT 294 s 84-139 Nov 29, 2021 10:26 AM [facility] POC ACT Specim en Type: BLOOD No comment enter ed. Ordering Provid er: IRENE BURNS Report Released Date/Time: Dec 03, 2021 01:30 PM Reporting Lab: [facility] [address] Performing Lab: [facility] [address] POC ACT 329 s 84-139 Nov 29, 2021 10:06 AM [facility] POC ACT Specim en Type: BLOOD No comment enter ed. Ordering Provid er: IRENE BURNS Report Released Date/Time: Dec 03, 2021 01:30 PM Reporting Lab: [facility] [address] [facility] [address] Performing Lab: [facility] [address] [address] [facility] [address] POC ACT 312 s 84-139 Nov 29, 2021 09:58 [facility] POC ABG/ELECTROLYTES Spec imen Type: ARTERIAL BLOOD AM Comment: Sample Type = ARTERIAL Ordering Provid er: IRENE BURNS Report Released Date/Time: Nov 29, 2021 07:53 PM Reporting Lab: [facility] [address] [facility] [address] Performing Lab: [facility] [address] [facility] [address] POC PH 7.334 L 7.35-7.45 POC PCO2 [...] 4.9 mg/dL 4.50-5.30 Nov 29, 2021 09:56 [facility] FINGERSTICK GLUCOSE Speci men Type: BLOOD AM No comment enter ed. Ordering Provid er: IRENE BURNS Report Released Date/Time: Nov 29, 2021 08:08 PM Reporting Lab: [facility] [address] [facility] [address] Performing Lab: [facility] [address] [address] FINGERSTICK GLUCOSE 194 mg/dL H 70-100 Nov 29, 2021 09:45 AM [facility] POC ACT Specim en Type: BLOOD No comment enter ed. Ordering Provid er: IRENE BURNS Report Released Date/Time: Dec 03, 2021 01:30 PM Reporting Lab: [facility] [address] Performing Lab: [facility] [address] POC ACT 269 s 84-139 Nov 29, 2021 08:59 AM [facility] POC ACT Specim en Type: BLOOD No comment enter ed. Ordering Provid er: IRENE BURNS Report Released Date/Time: Dec 03, 2021 01:30 PM Reporting Lab: [facility] [address] [facility] [address] Performing Lab: [facility] [address] [facility] [address] POC ACT 135 s 84-139 Nov 29, 2021 [facility] COVID-19 AND FLU/RSV Specime n Type: NASOPHARYNGEAL 07:05 AM DIAG PANEL(CEPHEID) Comment: Ce pheid GeneXpert (618) Ordering Provid er: KATHERINE FIGUEROA Report Released Date/Time: Oct 29, 2021 12:22 PM Reporting Lab: [facility] [address] [facility] [address] Performing Lab: [facility] [address] COVID-19 (CEPHEID) Not Detected Not Dete cted INFLUENZA A (PCR) Not Detected Not Detec susanne INFLUENZA B (PCR) Not Detected Not Detec susanne RSV (PCR) Not Detected Not Detected Nov 29, 2021 [facility] BASIC METABOLIC Specimen Typ e: PLASMA 06:38 AM PANEL+MG No comment enter ed. Ordering Provid er: KATHERINE FIGUEROA Report Released Date/Time: Oct 29, 2021 12:22 PM Reporting Lab: [facility] [address] Performing Lab: [facility] [address] CREATININE 1.4 mg/dL H 0.7-1.2 UREA NITROGEN 23 mg/dL 8-26 GLUCOSE 201 mg/dL H 74-100 SODIUM 143 mmol/L 136-145 POTASSIUM 4.3 mmol/L 3.5-5.1 CHLORIDE 108 mmol/L H 98-107 CO2 28 mmol/L 22-29 CALCIUM 9.9 mg/dL 8.4-10.2 MAGNESIUM 1.9 mg/dL 1.6-2.6 ANION GAP 7 mmol/L 5-15 CREAT EGFR(CKD-EPI) 53 L >60 Nov 29, 2021 06:38 [facility] CBC Specimen Type: BLOOD AM No comment enter ed. Ordering Provid er: KAHTERINE FIGUEROA Report Released Date/Time: Oct 29, 2021 12:22 PM Reporting Lab: [facility] [address] Performing Lab: [facility] [address] WBC 7.40 10*3/uL 4.0-11.0 RBC 5.17 10*6/uL 4.6-6.2 HGB 17.6 g/dL 13.5-17.9 HCT 52.7 41-54 MCV 101.9 fL H 80-100 MCH 34.0 pg H 27-33 MCHC 33.4 g/dL 32.0-37.5 PLT 88 10*3/uL L 150-400 MPV 14.3 fL H 7.4-10.4 RDW 14.4 11.5-14.5 IPF 18.0 H 0-10 Nov 29, 2021 [facility] PROTHROMBIN Specimen Typ e: PLASMA 06:38 AM TIME/INR No comment enter ed. Ordering Provid er: KATHERINE FIGUEROA Report Released Date/Time: Oct 29, 2021 12:22 PM Reporting Lab: [facility] [address] [facility] [address] Performing Lab: [facility] [address] [facility] [address] .INR 1.1 0.8-1.1 .PT 13.1 s H 9.4-12.5 Nov 29, 2021 [facility] ACT PART Specimen Typ e: PLASMA 06:38 AM THROMBO TIME No comment enter ed. Ordering Provid er: KATHERINE FIGUEROA Report Released Date/Time: Oct 29, 2021 12:22 PM Reporting Lab: [facility] [address] [facility] [facility] [address] Performing Lab: [facility] [address] [facility] [address] APTT 33.3 s 25.1-36.5 Vital Signs: All taken on the encounter date This section contains inpatient and outpatient Vital Signs collected on the date of the Encounter. Date/Time Temperature Pulse Blood Respiratory SP02 Pain Height Weight Axel dy Source Pressure Rate Mass Index Nov 29.3 F 96 99/66 18 /min 90 % 0 [place] 2021 11:07 /min mm[Hg] [facility] Nov 29 96 % [place] 2021 08:40 /min [facility] Nov 29, 232 lb 30 [place] 2021 08:38 [facility] Nov 29 112/73 97 % [place] 2021 08:35 /min mm[Hg] [facility] Nov 29 113/69 90 % [place] 2021 08:15 /min mm[Hg] [facility] Social History: Smoking Status (Most current) [...] Comment Facility Nov 29, 2021 08:36 PM [place] TOBACCO USE CURRENT NRT [facility] ACCEPT Tobacco Use History This section includes a history of the smoking, or tobacco- related health factors, that were collected on or before the date of the Encounter. The data comes from the [place] facility where the Encounter took place. 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 [facility] Nov 15, 2020 10:00 AM VA-TOBACCO USE MED NO [place] [facility] Nov 15, 2020 10:00 AM VA-TOBACCO USER EVERY DAY [facility] Jun 21, 2019 02:29 PM VA-TOBACCO USE 30 YEARS OR MORE [facility] Jun 21, 2019 02:29 PM VA-TOBACCO USE ADVICE [place] [facility] Jun 21, 2019 02:29 PM VA-TOBACCO USE 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 [facility] Jun 21, 2019 02:29 PM VA-TOBACCO USE MED NO [place] [facility] Jun 21, 2019 02:29 PM VA-TOBACCO USE WI 30 MIN OF WAKEUP [facility] Jun 21, 2019 02:29 PM VA-TOBACCO USER EVERY DAY [facility] Jun 09, 2018 03:48 PM VA-TOBACCO USE 30 YEARS OR MORE [facility] Jun 09, 2018 03:48 PM VA-TOBACCO USE ADVICE [place] [facility] Jun 09, 2018 03:48 PM VA-TOBACCO USE ADOBE LAYER HELPER NO [facility] Jun 09, 2018 03:48 PM VA-TOBACCO USE MED NO [place] [facility] Jun 09, 2018 03:48 PM VA-TOBACCO USE WI 30 MIN OF WAKEUP [facility] Jun 09, 2018 03:48 PM VA-TOBACCO USER EVERY DAY [facility] Jun 20, 2017 07:53 AM CURRENT TOBACCO USER [facility] Jun 19, 2016 08:41 AM CURRENT TOBACCO USER [facility] Jun 21, 2015 08:15 AM CURRENT TOBACCO USER [facility] Mar 22, 2014 10:03 AM CURRENT TOBACCO USER [facility] Mar 25, 2013 11:01 AM CURRENT TOBACCO USER [facility] Feb 05, 2012 08:55 AM CURRENT TOBACCO USER [facility] January 01, 2011 09:26 AM CURRENT [...] Provider Source Mar 06, 2005 ADVANCE DIRECTIVE MICHAELALEXANDRAE [facility] Radiology Reports: +/- 30 days [...] 2 VIEWS PA AND LAT: MONET LUDWIG [facility] PAUL MICHELE [id number] -[birth year] 9 M Exm Date: NOV 30, 2021@07:05 Req Phys: CHERRY MENDOZA Loc: 3LSOB/ 2@08:05 Img Loc: MAIN X-RAY Service: zzcard sect (Case [id number] COMPLETE) CHEST 2 VIEWS PA AND LAT (R AD Detailed) CPT:49000 Reason for Study: s/p upgrade ICD adding [...] pager listed below: User placing orders pager: [phone] LAST CREATININE 1.4 H (11/29/21) Report Status: Verified Date Reported: NOV 30, 2021 Date Verified: NOV 30, 2021 Human Services Supervisor E-Sig:/ES/MONET LUDWIG MD, FACR, C CD [...] 06:25 PM CHEST 1 VIEW: MAGDALENE DAVIDSON [facility] PA[place] MIC[place] [id number] -[birth year] 9 M Exm Date: NOV 29, 2021@18:25 Req Phys: CHERRY MENDOZA Pat Loc: [facility] [address] [facility] (Req'g Loc) Img Loc: MAIN X-RAY Service: Unknown (Case [id number] COMPLETE) CHEST 1 VIEW (RAD Detailed) CPT:97460 Reason for Study: s/p upgrade ICD adding [...] pager listed below: User placing orders pager: [phone] LAST CREATININE 1.4 H (11/29/21) Report Status: Verified Date Reported: NOV 29, 2021 Date Verified: NOV 29, 2021 Human Services Supervisor E-Sig:/HOLLIE/MAGDALENE DAVIDSON MD Report: DATE/TIME REGISTERED: [...] Primary Interpreting Staff: MAGDALENE DAVIDSON MD, RADIOLOGIST (Human Services Supervisor) /LUAN Encounter Notes: All associated encounter notes This section contains the clinical notes associated to the Encounter. Date/Time Encounter Note(s) Provider Source Nov 29, 2021 07:46 PM CRITICAL CARE UNIT NOTE: [employer] [facility] STAND[facility] TITLE: CRITICAL CARE UNIT NOTE DATE OF NOTE: NOV 29, 2021@19:46 ENTRY DATE: NOV 30, 2021@14:37:04 AUTHOR: BLANC[employer]ilk[employer] EXP COSIGNER: URGENCY: STATUS: COMPLETED This is a place pyle only. Please see [employer] to view document. /es/ [employer] SYSTEM ICU DOCUMENT IMPORT Signed: 11/30/2021 14:37 Nov 29, 2021 07:46 PM CRITICAL CARE UNIT NOTE: [employer] [facility] FLOWSHEET STANDARD TITLE: CRITICAL CARE UNIT NOTE DATE OF NOTE: NOV 29, 2021@19:46 ENTRY DATE: NOV 30, 2021@15:10:35 AUTHOR: BLANCAMilk[employer] EXP COSIGNER: URGENCY: STATUS: COMPLETED This is a place pyle only. Please see [employer] to view document. /es/ [employer] SYSTEM ICU DOCUMENT IMPORT Signed: 11/30/2021 15:10
--- OUTSIDE RECORDS SUMMARY | 2022-04-02 16:12 | XMS_ITS ---
DAILY HOSPITALIZATION DATA [facility] Encounter Summary Created on:November 30, 2021 Patient:PAUL MICHELE Sex:Male :1945 [address] Department [facility] Address [address] [place] [address] Support Name Relationship Address Phone NIDIA MICHELE Unavailable [address] [place] [phone] NIDIA MICHELE Unavailable [address] [phone] [place] [phone] Insurance Providers: All historical and current Section [...] MEDICARE MEDICARE PART Jun 25, PART B [id number] Saumya QUINONES PATIENT (WNR) (M) B 2011 78A 0 AVID MEDICARE MEDICARE PART Sep 25, PART A [id number] Saumya QUINONES PATIENT (WNR) (M) A 2009 78A 0 AVID MEDICARE MEDICARE PART Sep 25, PART A [id number] Saumya MICHELE (WNR) (M) A 2009 78A [id number] AVID MEDICARE MEDICARE PART Sep 25, PART B [id number] Saumya MICHELE (WNR) (M) B 2009 78A [id number] AVID Selected Encounter This section includes the information on record at [place] for the Encounter. Date/Time Encounter Type Encounter Description Reason Provider Source Nov 30, 2021 12:28 Inpatient Visit DAILY HOSPITALIZATION DATA PM [facility] Encounter Template Text not used by [place] Plan of Treatment: Future Appointments (+ 6 [...] comes from all [facility]. Appointment Date/Time Appointment Type Appointment Facili ty Name Dec 21, 2021 09:30 AM AMBULATORY - NONE [facility] January 07, 2022 01:30 PM AMBULATORY - MEDICINE [facility] Feb 05, 2022 07:00 AM AMBULATORY - NONE [facility] Feb 07, 2022 09:30 AM AMBULATORY - NONE [facility] Feb 13, 2022 10:00 AM [...] comes from all [facility]. Test Date/Time Test Type Test Details Facility Name Nov 29, 2021 06:30 AM Laboratory - Blood Bank TYPE & SCREEN - LA B [facility] Order BLOOD SP Dec 15, 2021 12:00 AM Laboratory - Chemistry BASIC METABOLIC MIN [facility] Order PANEL+MG PLASMA SP Lab [...] Reference Range Comment Nov 30, 2021 11:26 [facility] FINGERSTICK GLUCOSE Speci men Type: BLOOD AM Comment: [place] Nurse Notified Ordering Provid er: TEAM,CARDS TWO Report Released Date/Time: Nov 30, 2021 11:46 AM Reporting Lab: [facility] [address] [facility] [address] Performing Lab: [facility] [address] [facility] [address] FINGERSTICK GLUCOSE 284 H 70-100 Nov 30, 2021 09:47 AM [facility] ALBUMIN Specim en Type: PLASMA No comment enter ed. Ordering Provid er: ELIUD DINERO Report Released Date/Time: Nov 29, 2021 07:53 PM Reporting Lab: [facility] [address] [facility] [address] Performing Lab: [facility] [address] [facility] [address] ALBUMIN 3.4 L 3.5-5.2 Nov 30, 2021 09:47 [facility] BASIC METABOLIC Specimen Type: PLASMA AM PANEL+MG No comment enter ed. Ordering Provid er: ANGIE MALHOTRA Report Released Date/Time: Nov 29, 2021 08:12 PM Reporting Lab: [facility] [address] [facility] [address] Performing Lab: [facility] [address] [facility] [address] CREATININE 1.2 0.7-1.2 UREA NITROGEN 18 8-26 GLUCOSE 342 H 74-100 SODIUM 141 136-145 POTASSIUM 4.3 3.5-5.1 CHLORIDE 108 H 98-107 CO2 26 22-29 CALCIUM 8.6 8.4-10.2 MAGNESIUM 1.5 L 1.6-2.6 ANION GAP 7 5-15 CREAT EGFR(CKD-EPI) 63 >60 Nov 30, 2021 09:46 AM [facility] CBC Specim en Type: BLOOD No comment enter ed. Ordering Provid er: ANGIE MALHOTRA Report Released Date/Time: Nov 29, 2021 08:12 PM Reporting Lab: [facility] [address] [facility] [address] Performing Lab: [facility] [address] [facility] [address] WBC 10.61 4.0-11.0 RBC 4.33 L 4.6-6.2 HGB 14.6 13.5-17.9 HCT 45.2 41-54 MCV 104.4 H 80-100 MCH 33.7 H 27-33 MCHC 32.3 32.0-37.5 PLT 71 L 150-400 MPV 13.9 H 7.4-10.4 RDW 14.7 H 11.5-14.5 IPF 17.8 H 0-10 Nov 30, 2021 06:09 [facility] FINGERSTICK GLUCOSE Speci men Type: BLOOD AM Comment: [place] Nurse Notified Ordering Provid er: GRANT,IRENE TWO Report Released Date/Time: Nov 30, 2021 06:32 AM Reporting Lab: [facility] [address] [facility] [address] Performing Lab: [facility] [address] [facility] [address] FINGERSTICK GLUCOSE 165 H 70-100 Nov 29, 2021 07:35 [facility] FINGERSTICK GLUCOSE Speci men Type: BLOOD PM Comment: [place] Nurse Notified Ordering Provid er: IRENE BURNS TWO Report Released Date/Time: Nov 29, 2021 07:48 PM Reporting Lab: [facility] [address] [facility] [address] Performing Lab: [facility] [address] [facility] [address] FINGERSTICK GLUCOSE 160 H 70-100 Nov 29, 2021 06:52 [facility] FINGERSTICK GLUCOSE Speci men Type: BLOOD PM Comment: [place] Nurse Notified Ordering Provid er: SAKSHI CROUCH Report Released Date/Time: Nov 29, 2021 07:04 PM Reporting Lab: [facility] [address] [facility] [address] Performing Lab: [facility] [address] [facility] [address] FINGERSTICK GLUCOSE 161 H 70-100 Nov 29, 2021 04:18 [facility] FINGERSTICK GLUCOSE Speci men Type: BLOOD PM No comment enter ed. Ordering Provid er: IRENE BURNS TWO Report Released Date/Time: Nov 29, 2021 08:08 PM Reporting Lab: [facility] [address] [facility] [address] Performing Lab: [facility] [address] [facility] [address] FINGERSTICK GLUCOSE 179 H 70-100 Nov 29, 2021 03:26 [facility] POC ABG/ELECTROLYTES Spec imen Type: ARTERIAL BLOOD PM Comment: Sample Type = ARTERIAL Ordering Provid er: IRENE BURNS TWO Report Released Date/Time: Nov 29, 2021 07:53 PM Reporting Lab: [facility] [address] [facility] [address] Performing Lab: [facility] [address] POC PH 7.321 L 7.35-7.45 POC PCO2 46.0 H 35.00-45.00 POC PO2 103 80.0-105.0 POC TCO2 25 23.0-27.0 POC HCO3 23.8 22.0-26.0 POC BE ECT -2 -2 POC SO2 97 95-98 POC SODIUM 145 138.0-146.0 POC POTASSIUM 3.5 3.50-5.00 POC HGB 16.0 12.00-17.00 POC HCT 47 38.0-51.0 POC IONIZED CALCIUM 4.2 L 4.50-5.30 Nov 29, 2021 03:24 [facility] FINGERSTICK GLUCOSE Speci men Type: BLOOD PM Comment: Save R esult Ordering Provid er: TEAM,CARDS TWO Report Released Date/Time: Nov 29, 2021 08:08 PM Reporting Lab: [facility] [address] Performing Lab: [facility] [address] FINGERSTICK GLUCOSE 188 H 70-100 Nov 29, 2021 02:06 [facility] POC ABG/ELECTROLYTES Spec imen Type: ARTERIAL BLOOD PM Comment: Sample Type = ARTERIAL Ordering Provid er: TEAM,CARDS TWO Report Released Date/Time: Nov 29, 2021 07:53 PM Reporting Lab: [facility] [address] Performing Lab: [facility] [address] POC PH 7.313 L 7.35-7.45 POC PCO2 48.4 H 35.00-45.00 POC PO2 93 80.0-105.0 POC TCO2 26 23.0-27.0 POC HCO3 24.5 22.0-26.0 POC BE ECT -2 -2 POC SO2 96 95-98 POC SODIUM 144 138.0-146.0 POC POTASSIUM 3.5 3.50-5.00 POC HGB 16.3 12.00-17.00 POC HCT 48 38.0-51.0 POC IONIZED CALCIUM 4.3 L 4.50-5.30 Nov 29, 2021 02:04 [facility] FINGERSTICK GLUCOSE Speci men Type: BLOOD PM Comment: Save R esult Ordering Provid er: TEAM,CARDS TWO Report Released Date/Time: Nov 29, 2021 08:08 PM Reporting Lab: [facility] [address] [facility] [address] Performing Lab: [facility] [address] FINGERSTICK GLUCOSE 236 H 70-100 Nov 29, 2021 01:52 PM [facility] POC ACT Specim en Type: BLOOD No comment enter ed. Ordering Provid er: IRENE BURNS Report Released Date/Time: Dec 03, 2021 01:31 PM Reporting Lab: [facility] [address] [facility] [address] Performing Lab: [facility] [address] [facility] [address] POC ACT 135 84-139 Nov 29, 2021 01:16 PM [facility] POC ACT Specim en Type: BLOOD No comment enter ed. Ordering Provid er: IRENE BURNS Report Released Date/Time: Dec 03, 2021 01:30 PM Reporting Lab: [facility] [address] [facility] [address] Performing Lab: [facility] [address] [facility] [address] POC ACT 355 84-139 Nov 29, 2021 12:49 PM [facility] POC ACT Specim en Type: BLOOD No comment enter ed. Ordering Provid er: IRENE BURNS Report Released Date/Time: Dec 03, 2021 01:30 PM Reporting Lab: [facility] [address] [facility] [address] Performing Lab: [facility] [address] [facility] [address] POC ACT 367 84-139 Nov 29, 2021 12:48 [facility] POC ABG/ELECTROLYTES Spec imen Type: ARTERIAL BLOOD PM Comment: Sample Type = ARTERIAL Ordering Provid er: IRENE BURNS Report Released Date/Time: Nov 29, 2021 07:53 PM Reporting Lab: [facility] [address] [facility] [address] Performing Lab: [facility] [address] [facility] [address] POC PH 7.289 L 7.35-7.45 POC PCO2 52.6 H 35.00-45.00 POC PO2 86 80.0-105.0 POC TCO2 27 23.0-27.0 POC HCO3 25.2 22.0-26.0 POC BE ECT -1 -2 POC SO2 95 95-98 POC SODIUM 145 138.0-146.0 POC POTASSIUM 3.2 L 3.50-5.00 POC HGB 16.7 12.00-17.00 POC HCT 49 38.0-51.0 POC IONIZED CALCIUM 4.7 4.50-5.30 Nov 29, 2021 12:45 [facility] FINGERSTICK GLUCOSE Speci men Type: BLOOD PM Comment: Save R esult Ordering Provid er: IRENE BURNS Report Released Date/Time: Nov 29, 2021 08:08 PM Reporting Lab: [facility] [address] [facility] [address] Performing Lab: [facility] [address] [facility] [address] FINGERSTICK GLUCOSE 186 H 70-100 Nov 29, 2021 12:26 PM [facility] POC ACT Specim en Type: BLOOD No comment enter ed. Ordering Provid er: IRENE BURNS Report Released Date/Time: Dec 03, 2021 01:30 PM Reporting Lab: [facility] [address] [facility] [address] Performing Lab: [facility] [address] [facility] [address] POC ACT 367 84-139 Nov 29, 2021 11:58 AM [facility] POC ACT Specim en Type: BLOOD No comment enter ed. Ordering Provid er: IRENE BURNS Report Released Date/Time: Dec 03, 2021 01:30 PM Reporting Lab: [facility] [address] [facility] [address] Performing Lab: [facility] [address] [facility] [address] POC ACT 338 84-139 Nov 29, 2021 11:53 [facility] FINGERSTICK GLUCOSE Spec imen Type: BLOOD AM Comment: Save R esult Ordering Provid er: IRENE BURNS Report Released Date/Time: Nov 29, 2021 08:08 PM Reporting Lab: [facility] [address] [facility] [address] Performing Lab: [facility] [address] [facility] [address] FINGERSTICK GLUCOSE 225 H 70-100 Nov 29, 2021 11:30 AM [facility] POC ACT Specim en Type: BLOOD No comment enter ed. Ordering Provid er: IRENE BURNS TWO Report Released Date/Time: Dec 03, 2021 01:30 PM Reporting Lab: [facility] [address] [facility] [address] Performing Lab: [facility] [address] [facility] [address] POC ACT 355 84-139 Nov 29, 2021 11:26 [facility] POC ABG/ELECTROLYTES Spec imen Type: ARTERIAL BLOOD AM Comment: Sample Type = ARTERIAL Ordering Provid er: IRENE BURNS TWO Report Released Date/Time: Nov 29, 2021 07:53 PM Reporting Lab: [facility] [address] [facility] [address] Performing Lab: [facility] [address] [facility] [address] POC PH 7.317 L 7.35-7.45 POC PCO2 52.3 H 35.00-45.00 POC PO2 81 80.0-105.0 POC TCO2 28 H 23.0-27.0 POC HCO3 26.8 H 22.0-26.0 POC BE ECT 1 -2 POC SO2 94 L 95-98 POC SODIUM 143 138.0-146.0 POC POTASSIUM 3.5 3.50-5.00 POC HGB 17.3 H 12.00-17.00 POC HCT 51 38.0-51.0 POC IONIZED CALCIUM 4.8 4.50-5.30 Nov 29, 2021 11:06 [facility] FINGERSTICK GLUCOSE Speci men Type: BLOOD AM No comment enter ed. Ordering Provid er: IRENE BURNS Report Released Date/Time: Nov 29, 2021 08:08 PM Reporting Lab: [facility] [address] [facility] [address] Performing Lab: [facility] [address] [facility] [address] FINGERSTICK GLUCOSE 221 H 70-100 Nov 29, 2021 11:02 AM [facility] POC ACT Specim en Type: BLOOD No comment enter ed. Ordering Provid er: IRENE BURNS Report Released Date/Time: Dec 03, 2021 01:30 PM Reporting Lab: [facility] [address] [facility] [address] Performing Lab: [facility] [address] [facility] [address] POC ACT 294 84-139 Nov 29, 2021 10:26 AM [facility] POC ACT Specim en Type: BLOOD No comment enter ed. Ordering Provid er: IRENE BURNS TWO Report Released Date/Time: Dec 03, 2021 01:30 PM Reporting Lab: [facility] [address] [facility] [address] Performing Lab: [facility] [address] [facility] [address] POC ACT 329 84-139 Nov 29, 2021 10:06 AM [facility] POC ACT Specim en Type: BLOOD No comment enter ed. Ordering Provid er: IRENE BURNS TWO Report Released Date/Time: Dec 03, 2021 01:30 PM Reporting Lab: [facility] [address] [facility] [address] Performing Lab: [facility] [address] [facility] [address] POC ACT 312 84-139 Nov 29, 2021 09:58 [facility] POC ABG/ELECTROLYTES Spec imen Type: ARTERIAL BLOOD AM Comment: Sample Type = ARTERIAL Ordering Provid er: IRENE BURNS TWO Report Released Date/Time: Nov 29, 2021 07:53 PM Reporting Lab: [facility] [address] [facility] [address] Performing Lab: [facility] [address] [facility] [address] POC PH 7.334 L 7.35-7.45 POC PCO2 48.7 H 35.00-45.00 POC PO2 96 80.0-105.0 POC TCO2 27 23.0-27.0 POC HCO3 25.9 22.0-26.0 POC BE ECT 0 -2 POC SO2 97 95-98 POC SODIUM 143 138.0-146.0 POC POTASSIUM 4.1 3.50-5.00 POC HGB 17.3 H 12.00-17.00 POC HCT 51 38.0-51.0 POC IONIZED CALCIUM 4.9 4.50-5.30 Nov 29, 2021 09:56 [facility] FINGERSTICK GLUCOSE Speci men Type: BLOOD AM No comment enter ed. Ordering Provid er: IRENE BURNS TWO Report Released Date/Time: Nov 29, 2021 08:08 PM Reporting Lab: [facility] [address] [facility] [address] Performing Lab: [facility] [address] [facility] [address] FINGERSTICK GLUCOSE 194 H 70-100 Nov 29, 2021 09:45 AM [facility] POC ACT Specim en Type: BLOOD No comment enter ed. Ordering Provid er: IRENE BURNS TWO Report Released Date/Time: Dec 03, 2021 01:30 PM Reporting Lab: [facility] [address] [facility] [address] Performing Lab: [facility] [address] [facility] [address] POC ACT 269 84-139 Nov 29, 2021 08:59 AM [facility] POC ACT Specim en Type: BLOOD No comment enter ed. Ordering Provid er: IRENE BURNS TWO Report Released Date/Time: Dec 03, 2021 01:30 PM Reporting Lab: [facility] [address] [facility] [address] Performing Lab: [facility] [address] [facility] [address] POC ACT 135 84-139 Nov 29, 2021 [facility] COVID-19 AND FLU/RSV Specime n Type: NASOPHARYNGEAL 07:05 AM DIAG PANEL(CEPHEID) Comment: Ce pheid GeneXpert (618) Ordering Provid er: KATHERINE FIGUEROA Report Released Date/Time: Oct 29, 2021 12:22 PM Reporting Lab: [facility] [address] [facility] [address] Performing Lab: [facility] [address] [facility] [address] COVID-19 (CEPHEID) Not Detected Not Dete cted INFLUENZA A (PCR) Not Detected Not Detec susanne INFLUENZA B (PCR) Not Detected Not Detec susanne RSV (PCR) Not Detected Not Detected Nov 29, 2021 [facility] PROTHROMBIN Specimen Typ e: PLASMA 06:38 AM TIME/INR No comment enter ed. Ordering Provid er: KATHERINE FIGUEROA Report Released Date/Time: Oct 29, 2021 12:22 PM Reporting Lab: [facility] [address] [facility] [address] Performing Lab: [facility] [address] .INR 1.1 0.8-1.1 .PT 13.1 H 9.4-12.5 Nov 29, 2021 [facility] ACT PART Specimen Typ e: PLASMA 06:38 AM THROMBO TIME No comment enter ed. Ordering Provid er: KATHERINE FIGUEROA Report Released Date/Time: Oct 29, 2021 12:22 PM Reporting Lab: [facility] [address] [facility] [address] Performing Lab: [facility] [address] [facility] [address] APTT 33.3 25.1-36.5 Nov 29, 2021 06:38 [facility] CBC Specimen Type: BLOOD AM No comment enter ed. Ordering Provid er: KATHERINE FIGUEROA Report Released Date/Time: Oct 29, 2021 12:22 PM Reporting Lab: [facility] [address] [facility] [address] Performing Lab: [facility] [address] WBC 7.40 4.0-11.0 RBC 5.17 4.6-6.2 HGB 17.6 13.5-17.9 HCT 52.7 41-54 MCV 101.9 H 80-100 MCH 34.0 H 27-33 MCHC 33.4 32.0-37.5 PLT 88 L 150-400 MPV 14.3 H 7.4-10.4 RDW 14.4 11.5-14.5 IPF 18.0 H 0-10 Nov 29, 2021 [facility] BASIC METABOLIC Specimen Typ e: PLASMA 06:38 AM PANEL+MG No comment enter ed. Ordering Provid er: KATHERINE FIGUEROA Report Released Date/Time: Oct 29, 2021 12:22 PM Reporting Lab: [facility] [address] Performing Lab: [facility] [address] CREATININE 1.4 H 0.7-1.2 UREA NITROGEN 23 8-26 GLUCOSE 201 H 74-100 SODIUM 143 136-145 POTASSIUM 4.3 3.5-5.1 CHLORIDE 108 H 98-107 CO2 28 22-29 CALCIUM 9.9 8.4-10.2 MAGNESIUM 1.9 1.6-2.6 ANION GAP 7 5-15 CREAT EGFR(CKD-EPI) 53 L >60 Vital Signs: All taken on the encounter date This section contains inpatient and outpatient Vital Signs collected on the date of the Encounter. Date/Time Temperature Pulse Blood Respiratory SP02 Pain Height Weight Axel dy Source Pressure Rate Mass Index Nov 30, 100 104/72 18 /min 92 % [place] 2021 10:19 /min mm[Hg] [facility] Nov 30, 99.0 F 92 102/69 18 /min 90 % 0 [place] 2021 07:53 /min mm[Hg] [facility] Nov 30 98/65 16 /min 88 % [place] 2021 03:56 /min mm[Hg] [facility] Social History: Smoking Status (Most current) and Tobacco Use (All prior to encounter date) This section includes the most current, and the historical, smoking and tobacco-related health factors from the [place] facility where the Encounter took place.Current Smoking Status This section includes the most current smoking, or tobacco-related health factor, from the [place] facility where the Encounter took place. Date/Time Current Smoking Status Comment Facility Nov 29, 2021 08:36 PM [facility] TOBACCO USE CURRENT NRT [facility] ACCEPT Tobacco Use History This section includes a history of the smoking, or tobacco- related health factors, that were collected on or before the date of the Encounter. The data comes from the [place] facility where the Encounter took place. 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 [facility] Nov 15, 2020 10:00 AM VA-TOBACCO USE MED NO [place] [facility] Nov 15, 2020 10:00 AM VA-TOBACCO USER EVERY DAY [facility] Jun 21, 2019 02:29 PM VA-TOBACCO USE 30 YEARS OR MORE [facility] Jun 21, 2019 02:29 PM VA-TOBACCO USE ADVICE [place] [facility] Jun 21, 2019 02:29 PM 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 [facility] Jun 21, 2019 02:29 PM VA-TOBACCO USE MED NO [place] [facility] Jun 21, 2019 02:29 PM VA-TOBACCO USE [place] 30 MIN OF WAKEUP [facility] Jun 21, 2019 02:29 PM VA-TOBACCO USER EVERY DAY [facility] Jun 09, 2018 03:48 PM VA-TOBACCO USE 30 YEARS OR MORE [facility] Jun 09, 2018 03:48 PM VA-TOBACCO USE ADVICE [place] [facility] Jun 09, 2018 03:48 PM 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 [facility] Jun 09, 2018 03:48 PM VA-TOBACCO USE MED NO [place] [facility] Jun 09, 2018 03:48 PM VA-TOBACCO USE [place] 30 MIN OF WAKEUP [facility] Jun 09, 2018 03:48 PM VA-TOBACCO USER EVERY DAY [facility] Jun 20, 2017 07:53 AM CURRENT TOBACCO USER [facility] Jun 19, 2016 08:41 AM CURRENT TOBACCO USER [facility] Jun 21, 2015 08:15 AM CURRENT TOBACCO USER [facility] Mar 22, 2014 10:03 AM CURRENT TOBACCO USER [facility] Mar 25, 2013 11:01 AM CURRENT TOBACCO USER [facility] Feb 05, 2012 08:55 AM CURRENT TOBACCO USER [facility] January 01, 2011 09:26 AM CURRENT TOBACCO USER [facility] Mar 07, 2010 10:02 AM CURRENT TOBACCO USER [facility] Feb 21, 2009 08:17 AM CURRENT TOBACCO USER [facility] Nov 06, 2007 10:02 AM CURRENT TOBACCO USER [facility] January 02, 2007 10:33 AM CURRENT TOBACCO USER [facility] Advance Directives: All historical and current Section Date Range: From patient's date of to the date document was created. This section includes ALL of a patient's completed or amended [place] Advance and Rescinded Directives. The entries below indicate that a directive exists for the patient, but an actual copy is not included with this document. The data comes from all [facility]. Date Advance Directives Provider Source Mar 06, 2005 ADVANCE DIRECTIVE MICHAELALEXANDRAE [facility] Radiology Reports: +/- 30 days [...] 2 VIEWS PA AND LAT: MONET LUDWIG [facility] [place] [phone] -[birth year] 9 M Exm Date: NOV 30, 2021@07:05 Req Phys: CHERRY MENDOZA Loc: 3LSOB/ 2@08:05 Img Loc: MAIN X-RAY Service: zzcard sect (Case [id number] COMPLETE) CHEST 2 VIEWS PA AND LAT (R AD Detailed) CPT:69520 Reason for Study: s/p upgrade ICD adding an A l ead Clinical History: Post ICD or Pacemaker: Verify Lead Placement. [place] IS NOT under investigation for COVID-19 or is COVID-19 negative s/p upgrade ICD adding an A lead Responsible pr ovider name and phone number to notify for critical findings if other than user placing the order and pager listed below: User placing orders pager: [phone] LAST CREATININE 1.4 H (11/29/21) Report Status: Verified Date Reported: NOV 30, 2021 Date Verified: NOV 30, 2021 Community Dietitian E-Sig:/ES/MONET LUDWIG MD, FACR, C CD Report: [...] 29, 2021 06:25 PM CHEST 1 VIEW[facility] [place] [phone] -[birth year] 9 M Exm Date: NOV 29, 2021@18:25 Req Phys: CHERRY MENDOZA Pat Loc: [facility] [address] [facility] (Req'g Loc) Img Loc: MAIN X-RAY Service: Unknown (Case [id number] COMPLETE) CHEST 1 VIEW (RAD Detailed) CPT:84088 Reason for Study: s/p upgrade ICD adding an A l ead Clinical History: Immediate Post-Op Pacemaker/ICD placement [place] IS NOT under investigation for COVID-19 or is COVID-19 negative s/p upgrade his ICD to dual chamber (adding an A lead) Responsible provider name and phone number to n otify for critical findings if other than user placing the order a nd pager listed below: User placing orders pager: [phone] LAST CREATININE 1.4 H (11/29/21) Report Status: Verified Date Reported: NOV 29, 2021 Date Verified: NOV 29, 2021 Community Dietitian E-Sig:/ES/MAGDALENE DAVIDSON MD Report: DATE/TIME REGISTERED: 11/29/2021 [...] Interpreting Staff: MAGDALENE DAVIDSON MD, RADIOLOGIST (Community Dietitian) /LUAN
--- OUTSIDE RECORDS SUMMARY | 2022-04-02 16:12 | XMS_ITS | Encounter Summary ---
:1945 Author Organization Department [facility] Address [address] [place] [id number] Care Team Providers Name Role Phone WILLA [...] MEDICARE MEDICARE PART Jun 25, PART B [id number] Saumya QUINONES PATIENT (WNR) (M) B 2011 78A 0 AVID MEDICARE MEDICARE PART Sep 25, PART A [id number] Saumya QUINONES PATIENT (WNR) (M) A 2009 78A 0 AVID MEDICARE MEDICARE PART Sep 25, PART A [id number] Saumya MICHELE (WNR) (M) A 2009 78A [id number] AVID MEDICARE MEDICARE PART Sep 25, PART B [id number] Saumya MICHELE ATTHOMAS (WNR) (M) B 2009 78A [phone] AVID Selected Encounter This section includes the information on record at [place] for the Encounter. Date/Time Encounter Type Encounter Reason Provider Source Description Nov 30, 2021 INITIAL CARDIOLOGY ICD-10-CM I48.19 VICENTE PELAEZ 11:37 AM HOSPITAL CARE Other persistent A atrial fibrillation with Provider Comments: Persistent atrial fibrillation (SCT [id number]) IHE Encounter Template Text not used by [place] Assessments - Encounter Diagnoses This section includes the primary and secondary diagnoses documented for the Encounter. Date/Time Primary/Secondary Diagnosis Name Provider Source Diagnosis Nov 30, 2021 PRIMARY Other persistent RISHI MARIN [place] 12:37 PM atrial fibrillation P HCS Nov 30, 2021 SECONDARY [facility] 12[facility]37 PM disease of [place] A HCS coronary artery w/o ang pctrs Nov 30, 2021 SECONDARY Chronic systolic [facility] 12:37 PM (congestive) heart A HCS failure Nov 30, 2021 SECONDARY Presence of RISHI MARIN [facility] 12:37 PM automatic P HCS (implantable) cardiac defibrillator Nov 30, 2021 SECONDARY Ventricular [facility] 12:37 PM premature A HCS depolarization Plan of Treatment: Future Appointments (+ 6 months) and Future Tests (+/- 45 days) The Plan of Treatment section includes future care activities for the patient [facility] [place] [facility] This section includes future appointments and future orders which are active, pending orscheduled.Future Appointments This section includes appointments that were scheduled to occur 6 months from the date of the Encounter, up to a maximum of 20 appointments. The data comes from all [place] treatment [facility]. Appointment Date/Time Appointment Type Appointment Facili ty Name Dec 21, 2021 09:30 AM [facility]ATORY - [facility] January 07, 2022 01:30 PM [facility] - [facility] Feb 05, 2022 07:00 AM AMBULATORY - [facility] Feb 07, 2022 09:30 AM AMBULATORY - [facility] Feb 13, 2022 10:00 AM AMBULATORY - [facility] Mar 21, 2022 09:[address] [facility] Active, Pending, and Scheduled Orders This [...] The data comes from all [place] treatment [facility]. Test Date/Time Test Type Test Details Facility Name Nov 29, 2021 06:30 AM Laboratory - Blood Bank TYPE & SCREEN - [place] B [facility] Order BLOOD SP Dec 15, [...] Reference Range Comment Nov 30, 2021 11:26 [facility] FINGERSTICK GLUCOSE Speci men Type: BLOOD AM Comment: [place] Nurse Notified Ordering Provid er: TEAM,IRENE TWO Report Released Date/Time: Nov 30, 2021 11:46 AM Reporting Lab: [facility] [address] Performing Lab: [facility] [address] FINGERSTICK GLUCOSE 284 mg/dL H 70-100 Nov 30, 2021 09:47 AM [facility] ALBUMIN Specim en Type: PLASMA No comment enter ed. Ordering Provid er: ELIUD DINERO Report Released Date/Time: Nov 29, 2021 07:53 PM Reporting Lab: [facility] [address] Performing Lab: [facility] [address] ALBUMIN 3.4 g/dL L 3.5-5.2 Nov 30, 2021 09:47 [facility] BASIC METABOLIC Specimen Type: PLASMA AM PANEL+MG No comment enter ed. Ordering Provid er: ANGIE MALHOTRA Report Released Date/Time: Nov 29, 2021 08:12 PM Reporting Lab: [facility] [address] Performing Lab: [facility] [address] CREATININE 1.2 mg/dL 0.7-1.2 UREA NITROGEN 18 mg/dL 8-26 GLUCOSE 342 mg/dL H 74-100 SODIUM 141 mmol/L 136-145 POTASSIUM 4.3 mmol/L 3.5-5.1 CHLORIDE 108 mmol/L H 98-107 CO2 26 mmol/L 22-29 CALCIUM 8.6 mg/dL 8.4-10.2 MAGNESIUM 1.5 mg/dL L 1.6-2.6 ANION GAP 7 mmol/L 5-15 CREAT EGFR(CKD-EPI) 63 >60 Nov 30, 2021 09:46 AM [facility] CBC Specim en Type: BLOOD No comment enter ed. Ordering Provid er: ANGIE MALHOTRA Report Released Date/Time: Nov 29, 2021 08:12 PM Reporting Lab: [facility] [address] [facility] [address] Performing Lab: [facility] [address] [facility] [address] WBC 10.61 10*3/uL 4.0-11.0 RBC 4.33 10*6/uL L 4.6-6.2 HGB 14.6 g/dL 13.5-17.9 HCT 45.2 41-54 MCV 104.4 fL H 80-100 MCH 33.7 pg H 27-33 MCHC 32.3 g/dL 32.0-37.5 PLT 71 10*3/uL L 150-400 MPV 13.9 fL H 7.4-10.4 RDW 14.7 H 11.5-14.5 IPF 17.8 H 0-10 Nov 30, 2021 06:09 [facility] FINGERSTICK GLUCOSE Speci men Type: BLOOD AM Comment: [place] Nurse Notified Ordering Provid er: IRENE BURNS Report Released Date/Time: Nov 30, 2021 06:32 AM Reporting Lab: [facility] [address] [facility] [address] Performing Lab: [facility] [address] [facility] [address] FINGERSTICK GLUCOSE 165 mg/dL H 70-100 Nov 29, 2021 07:35 [facility] FINGERSTICK GLUCOSE Speci men Type: BLOOD PM Comment: [place] Nurse Notified Ordering Provid er: IRENE BURNS TWO Report Released Date/Time: Nov 29, 2021 07:48 PM Reporting Lab: [facility] [address] [facility] [address] Performing Lab: [facility] [address] [facility] [address] FINGERSTICK GLUCOSE 160 mg/dL H 70-100 Nov 29, 2021 06:52 [facility] FINGERSTICK GLUCOSE Speci men Type: BLOOD PM Comment: [place] Nurse Notified Ordering Provid er: SAKSHI CROUCH Report Released Date/Time: Nov 29, 2021 07:04 PM Reporting Lab: [facility] [address] [facility] [address] Performing Lab: [facility] [address] [facility] [address] FINGERSTICK GLUCOSE 161 mg/dL H 70-100 Nov 29, 2021 04:18 [facility] FINGERSTICK GLUCOSE Speci men Type: BLOOD PM No comment enter ed. Ordering Provid er: IRENE BURNS TWO Report Released Date/Time: Nov 29, 2021 08:08 PM Reporting Lab: [facility] [address] [facility] [address] Performing Lab: [facility] [address] FINGERSTICK GLUCOSE 179 mg/dL H 70-100 Nov 29, 2021 03:26 [facility] POC ABG/ELECTROLYTES Spec imen Type: ARTERIAL BLOOD PM Comment: Sample Type = ARTERIAL Ordering Provid er: GRANTCARDS TWO Report Released Date/Time: Nov 29, 2021 07:53 PM Reporting Lab: [facility] [address] [facility] [address] Performing Lab: [facility] [address] POC PH 7.321 L 7.35-7.45 POC PCO2 [...] mg/dL L 4.50-5.30 Nov 29, 2021 03:24 [facility] FINGERSTICK GLUCOSE Speci men Type: BLOOD PM Comment: Save R esult Ordering Provid er: GRANTCARDS TWO Report Released Date/Time: Nov 29, 2021 08:08 PM Reporting Lab: [facility] [address] [facility] [address] Performing Lab: [facility] [address] [facility] [address] FINGERSTICK GLUCOSE 188 mg/dL H 70-100 Nov 29, 2021 02:06 [facility] POC ABG/ELECTROLYTES Spec imen Type: ARTERIAL BLOOD PM Comment: Sample Type = ARTERIAL Ordering Provid er: IRENE BURNS TWO Report Released Date/Time: Nov 29, 2021 07:53 PM Reporting Lab: [facility] [address] [facility] [address] Performing Lab: [facility] [address] POC PH 7.313 L 7.35-7.45 POC PCO2 [...] mg/dL L 4.50-5.30 Nov 29, 2021 02:04 [facility] FINGERSTICK GLUCOSE Speci men Type: BLOOD PM Comment: Save R esult Ordering Provid er: IRENE BURNS TWO Report Released Date/Time: Nov 29, 2021 08:08 PM Reporting Lab: [facility] [address] [facility] [address] Performing Lab: [facility] [address] FINGERSTICK GLUCOSE 236 mg/dL H 70-100 Nov 29, 2021 01:52 PM [facility] POC ACT Specim en Type: BLOOD No comment enter ed. Ordering Provid er: IRENE BURNS TWO Report Released Date/Time: Dec 03, 2021 01:31 PM Reporting Lab: [facility] [address] [facility] [address] Performing Lab: [facility] [address] [facility] [address] POC ACT 135 s 84-139 Nov 29, 2021 01:16 PM [facility] POC ACT Specim en Type: BLOOD No comment enter ed. Ordering Provid er: IRENE BURNS TWO Report Released Date/Time: Dec 03, 2021 01:30 PM Reporting Lab: [facility] [address] [facility] [address] Performing Lab: [employer] [facility] [address] POC ACT 355 s 84-139 Nov 29, 2021 12:49 PM [facility] POC ACT Specim en Type: BLOOD No comment enter ed. Ordering Provid er: IRENE BURNS TWO Report Released Date/Time: Dec 03, 2021 01:30 PM Reporting Lab: [facility] [address] Performing Lab: [facility] [address] POC ACT 367 s 84-139 Nov 29, 2021 12:48 [facility] POC ABG/ELECTROLYTES Spec imen Type: ARTERIAL BLOOD PM Comment: Sample Type = ARTERIAL Ordering Provid er: IRENE BURNS TWO Report Released Date/Time: Nov 29, 2021 07:53 PM Reporting Lab: [facility] [address] Performing Lab: [facility] [address] POC PH 7.289 L 7.35-7.45 POC PCO2 [...] 4.7 mg/dL 4.50-5.30 Nov 29, 2021 12:45 [facility] FINGERSTICK GLUCOSE Speci men Type: BLOOD PM Comment: Save R esult Ordering Provid er: GRANTCARDS TWO Report Released Date/Time: Nov 29, 2021 08:08 PM Reporting Lab: [facility] [address] Performing Lab: [facility] [address] FINGERSTICK GLUCOSE 186 mg/dL H 70-100 Nov 29, 2021 12:26 PM [facility] POC ACT Specim en Type: BLOOD No comment enter ed. Ordering Provid er: IRENE BURNS TWO Report Released Date/Time: Dec 03, 2021 01:30 PM Reporting Lab: [facility] [address] [facility] [address] Performing Lab: [facility] [address] [facility] [address] POC ACT 367 s 84-139 Nov 29, 2021 11:58 AM [facility] POC ACT Specim en Type: BLOOD No comment enter ed. Ordering Provid er: IRENE BURNS Report Released Date/Time: Dec 03, 2021 01:30 PM Reporting Lab: [facility] [address] [facility] [address] Performing Lab: [facility] [address] [facility] [address] POC ACT 338 s 84-139 Nov 29, 2021 11:53 [facility] FINGERSTICK GLUCOSE Speci men Type: BLOOD AM Comment: Save R esult Ordering Provid er: IRENE BURNS Report Released Date/Time: Nov 29, 2021 08:08 PM Reporting Lab: [facility] [address] [facility] [address] Performing Lab: [facility] [address] [facility] [address] FINGERSTICK GLUCOSE 225 mg/dL H 70-100 Nov 29, 2021 11:30 AM [facility] POC ACT Specim en Type: BLOOD No comment enter ed. Ordering Provid er: IRENE BURNS Report Released Date/Time: Dec 03, 2021 01:30 PM Reporting Lab: [facility] [address] [facility] [address] Performing Lab: [facility] [address] [facility] [address] POC ACT 355 s 84-139 Nov 29, 2021 11:26 [facility] POC ABG/ELECTROLYTES Spec imen Type: ARTERIAL BLOOD AM Comment: Sample Type = ARTERIAL Ordering Provid er: IRENE BURNS Report Released Date/Time: Nov 29, 2021 07:53 PM Reporting Lab: [facility] [address] [facility] [address] Performing Lab: [facility] [address] [facility] [address] POC PH 7.317 L 7.35-7.45 POC PCO2 [...] 4.8 mg/dL 4.50-5.30 Nov 29, 2021 11:06 [facility] FINGERSTICK GLUCOSE Speci men Type: BLOOD AM No comment enter ed. Ordering Provid er: IRENE BURNS TWO Report Released Date/Time: Nov 29, 2021 08:08 PM Reporting Lab: [facility] [address] [facility] [address] Performing Lab: [facility] [address] [facility] [address] FINGERSTICK GLUCOSE 221 mg/dL H 70-100 Nov 29, 2021 11:02 AM [facility] POC ACT Specim en Type: BLOOD No comment enter ed. Ordering Provid er: IRENE BURNS TWO Report Released Date/Time: Dec 03, 2021 01:30 PM Reporting Lab: [facility] [address] [facility] [address] Performing Lab: [facility] [address] [facility] [address] POC ACT 294 s 84-139 Nov 29, 2021 10:26 AM [facility] POC ACT Specim en Type: BLOOD No comment enter ed. Ordering Provid er: IRENE BURNS TWO Report Released Date/Time: Dec 03, 2021 01:30 PM Reporting Lab: [facility] [address] [facility] [address] Performing Lab: [facility] [address] [facility] [address] POC ACT 329 s 84-139 Nov 29, 2021 10:06 AM [facility] POC ACT Specim en Type: BLOOD No comment enter ed. Ordering Provid er: IRENE BURNS TWO Report Released Date/Time: Dec 03, 2021 01:30 PM Reporting Lab: [facility] [address] [facility] [address] Performing Lab: [facility] [address] [facility] [address] POC ACT 312 s 84-139 Nov 29, 2021 09:58 [facility] POC ABG/ELECTROLYTES Spec imen Type: ARTERIAL BLOOD AM Comment: Sample Type = ARTERIAL Ordering Provid er: IRENE BURNS Report Released Date/Time: Nov 29, 2021 07:53 PM Reporting Lab: [facility] [address] [facility] [address] Performing Lab: [facility] [address] [facility] [address] POC PH 7.334 L 7.35-7.45 POC PCO2 [...] 4.9 mg/dL 4.50-5.30 Nov 29, 2021 09:56 [facility] FINGERSTICK GLUCOSE Speci men Type: BLOOD AM No comment enter ed. Ordering Provid er: IRENE BURNS TWO Report Released Date/Time: Nov 29, 2021 08:08 PM Reporting Lab: [facility] [address] [facility] [address] Performing Lab: [facility] [address] [facility] [address] FINGERSTICK GLUCOSE 194 mg/dL H 70-100 Nov 29, 2021 09:45 AM [facility] POC ACT Specim en Type: BLOOD No comment enter ed. Ordering Provid er: IRENE BURNS TWO Report Released Date/Time: Dec 03, 2021 01:30 PM Reporting Lab: [facility] [address] [facility] [address] Performing Lab: [facility] [address] [facility] [address] POC ACT 269 s 84-139 Nov 29, 2021 08:59 AM [facility] POC ACT Specim en Type: BLOOD No comment enter ed. Ordering Provid er: IRENE BURNS TWO Report Released Date/Time: Dec 03, 2021 01:30 PM Reporting Lab: [facility] [address] [facility] [address] Performing Lab: [facility] [address] [facility] [address] POC ACT 135 s 84-139 Nov 29, 2021 [facility] COVID-19 AND FLU/RSV Specime n Type: NASOPHARYNGEAL 07:05 AM DIAG PANEL(CEPHEID) Comment: [employer] GeneXpert (618) Ordering Provid er: KATHERINE FIGUEROA Report Released Date/Time: Oct 29, 2021 12:22 PM Reporting Lab: [facility] [address] Performing Lab: [facility] [address] COVID-19 (CEPHEID) Not Detected Not Dete cted INFLUENZA A (PCR) Not Detected Not Detec susanne INFLUENZA B (PCR) Not Detected Not Detec susanne RSV (PCR) Not Detected Not Detected Nov 29, 2021 [facility] BASIC METABOLIC Specimen Typ e: PLASMA 06:38 AM PANEL+MG No comment enter ed. Ordering Provid er: KATHERINE FIGUEROA Report Released Date/Time: Oct 29, 2021 12:22 PM Reporting Lab: [facility] [address] [facility] [address] Performing Lab: [facility] [address] CREATININE 1.4 mg/dL H 0.7-1.2 UREA NITROGEN 23 mg/dL 8-26 GLUCOSE 201 mg/dL H 74-100 SODIUM 143 mmol/L 136-145 POTASSIUM 4.3 mmol/L 3.5-5.1 CHLORIDE 108 mmol/L H 98-107 CO2 28 mmol/L 22-29 CALCIUM 9.9 mg/dL 8.4-10.2 MAGNESIUM 1.9 mg/dL 1.6-2.6 ANION GAP 7 mmol/L 5-15 CREAT EGFR(CKD-EPI) 53 L >60 Nov 29, 2021 06:38 [facility] CBC Specimen Type: BLOOD AM No comment enter ed. Ordering Provid er: KATHERINE FIGUEROA Report Released Date/Time: Oct 29, 2021 12:22 PM Reporting Lab: [facility] [address] [facility] [address] Performing Lab: [facility] [address] WBC 7.40 10*3/uL 4.0-11.0 RBC 5.17 10*6/uL 4.6-6.2 HGB 17.6 g/dL 13.5-17.9 HCT 52.7 41-54 MCV 101.9 fL H 80-100 MCH 34.0 pg H 27-33 MCHC 33.4 g/dL 32.0-37.5 PLT 88 10*3/uL L 150-400 MPV 14.3 fL H 7.4-10.4 RDW 14.4 11.5-14.5 IPF 18.0 H 0-10 Nov 29, 2021 [facility] PROTHROMBIN Specimen Typ e: PLASMA 06:38 AM TIME/INR No comment enter ed. Ordering Provid er: KATHERINE FIGUEROA Report Released Date/Time: Oct 29, 2021 12:22 PM Reporting Lab: [facility] [address] Performing Lab: [facility] [address] .INR 1.1 0.8-1.1 .PT 13.1 s H 9.4-12.5 Nov 29, 2021 [facility] ACT PART Specimen Typ e: PLASMA 06:38 AM THROMBO TIME No comment enter ed. Ordering Provid er: KATHERINE FIGUEROA Report Released Date/Time: Oct 29, 2021 12:22 PM Reporting Lab: [facility] [address] Performing Lab: [facility] [address] APTT 33.3 s 25.1-36.5 Vital Signs: All taken on the encounter date This section contains inpatient and outpatient Vital Signs collected on the date of the Encounter. Date/Time Temperature Pulse Blood Respiratory SP02 Pain Height Weight Axel dy Source Pressure Rate Mass Index Nov 30, 100 104/72 18 /min 92 % [place] 2021 10:19 /min mm[Hg] [facility] Nov 30, 99.0 F 92 102/69 18 /min 90 % 0 [place] 2021 07:53 /min mm[Hg] [facility] Nov 30, 88 98/65 16 /min 88 % [place] 2021 03:56 /min mm[Hg] [facility] Social History: Smoking Status (Most current) [...] 08:36 PM [facility] TOBACCO USE CURRENT NRT [facility] ACCEPT Tobacco Use History This section includes a history of the smoking, or tobacco- related health factors, that were collected on or before the date of the Encounter. The data comes from the [place] facility where the Encounter took place. Date/Time Smoking Status/Tobacco Use Comment [facility] it Mar 20, 2021 11:21 AM [facility] TOBACCO USE CURRENT NRT [facility] DECLINE Nov 15, 2020 10:00 AM VA-TOBACCO DOESNT USE WI 30 MIN [facility] WAKEUP Nov 15, 2020 10:00 AM VA-TOBACCO USE 30 YEARS OR MORE [facility] Nov 15, 2020 10:00 AM VA-TOBACCO USE ADVICE [place] [facility] Nov 15, 2020 10:00 AM VA-TOBACCO USE WIRE STEWARD NO [facility] Nov 15, [...] 21, 2019 02:29 PM VA-TOBACCO USE WIRE STEWARD NO [facility] Jun 21, [...] 09, 2018 03:48 PM VA-TOBACCO USE WIRE STEWARD NO [facility] Jun 09, [...] this document. The data comes from all [facility]. Date Advance Directives Provider Source Mar 06, 2005 ADVANCE DIRECTIVE MICHAELGANESH [facility] Radiology Reports: +/- 30 days [...] 2 VIEWS PA AND LAT: MONET LUDWIG [facility] PAUL MICHELE [id number] -[birth year] 9 M Exm Date: NOV 30, 2021@07:05 Req Phys: CHERRY MENDOZA Pat Loc: 3LSOB/ 2@08:05 Img Loc: MAIN X-RAY Service: zzcard sect (Case [id number] COMPLETE) CHEST 2 VIEWS PA AND LAT (R AD Detailed) CPT:82175 Reason for Study: s/p upgrade ICD adding [...] pager listed below: User placing orders pager: [phone] LAST CREATININE 1.4 H (11/29/21) Report Status: Verified Date Reported: NOV 30, 2021 Date Verified: NOV 30, 2021 [employer] Worker E-Sig:/ES/MONET LUDWIG MD, FACR, C CD Report: [...] 06:25 PM CHEST 1 VIEW: MAGDALENE DAVIDSON [facility] PAUL MICHELE [id number] -[birth year], [birth year] 9 M Exm Date: NOV 29, 2021@18:25 Req Phys: CHERRY MENDOZA Pat Loc: [facility] [address] A[facility] (Req'g Loc) Img Loc: MAIN X-RAY Service: Unknown (Case [id number] COMPLETE) CHEST 1 VIEW (RAD Detailed) CPT:57329 Reason for Study: s/p upgrade ICD adding an A l ead Clinical History: Immediate Post-Op Pacemaker/ICD placement [place] IS NOT under investigation for COVID-19 or is COVID-19 negative s/p upgrade his ICD to dual chamber (adding an A lead) Responsible provider name and phone number to n otify for critical findings if other than user placing the order a nd pager listed below: User placing orders pager: [phone] LAST CREATININE 1.4 H (11/29/21) Report Status: Verified Date Reported: NOV 29, 2021 Date Verified: NOV 29, 2021 [employer] Worker E-Sig:/ES/MAGDALENE DAVIDSON MD Report: DATE/TIME REGISTERED: 11/29/2021 [...] Primary Interpreting Staff: MAGDALENE DAVIDSON MD, RADIOLOGIST ([employer] Worker) /LUAN Encounter Notes: All associated encounter notes This section contains the clinical notes associated to the Encounter. Date/Time Encounter Note(s) Provider Source Nov 30, 2021 11:37 AM CARDIOLOGY ATTENDING NOTE: RISHI MARIN [facility] LOCAL TITLE: CARDIOLOGY ADMISSION STAFF NOTE STANDARD TITLE: CARDIOLOGY ATTENDING NOTE DATE OF NOTE: NOV 30, 2021@11:37 ENTRY DATE: NOV 30, 2021@11:37:29 AUTHOR: RSIHI MARIN EXP COSIGNER: URGENCY: STATUS: COMPLETED CARDIOLOGY ADMISSION STAFF NOTE Has ADDENDA 76 year old male with PMHGx of CAD s/p CABG, ICM , HFrEF with an EF:20-25%, afib, ICD who presents for scheduled admission f or atrial lead placement and PVI. 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 Patient was seen by EP in the p ast and underwent dofetillide initiation in the past that was aborted due to d eveloping Ventricular Tachycardia necessitating appropriate shock. As such, patient presented to the EP lab yesterday for PVI ablation and placem ent of atrial lead that occured without incident. Vitals: VSS GEN: AAOX3, NAD CV: S1, S2, RRR LUNG: CTAB ABD: Soft, nt Labs: Reviewed in [facility] Cardiac W/u TTE 07/25/2021 1. The left ventricle is moderate to severely di lated. The left ventricular systolic function is severely reduced. The [facility] estimated LV ejection fraction is 20%. There is severe global hypokine sis of the left ventricle. 2. There is moderate mitral valve regurgitation. 3. The right ventricle size is moderately enlarg ed. The right ventricular systolic function is moderately reduced. 4. No significant valvular pathology. 5. There is no pericardial effusion. 6. The inferior vena cava is normal in size, and has <50% collapse with respiration. Estmiated RA pressure is 8 mmHg. 7. Compared to prior study 12/11/11, LV systolic funciton is reduced. A/P 76 year old male with PMHGx of CAD s/p CABG, ICM , HFrEF with an EF:20-25%, afib, ICD who presents for scheduled admission f or atrial lead placement and PVI. #Afib s/p PVI #Implantation of addional atrial lead, now DC-IC D Device interrogation performed today with change s per EP. Apixaban restarted today. Patient will be scheduled for EP device c heck and pocket follow in 4-6 weeks - Keflex from 11/29- - EP follow up in 4-6 weeks - Restart Apixaban today Staffed with Dr. Benigno Marin Md Product Development Director PGY6 /es/ RISHI MARIN MD DIRECTOR INTERNATIONAL-ED/MOD GEORGE Signed: 11/30/2021 11:45 Receipt Acknowledged By: 11/30/2021 12:37 /billy/ VICENTE PELAEZ MD PHYSICIAN 11/30/2021 ADDENDUM STATUS: COMPLETED I saw and evaluated this patient with e fellow and agree with the assessment and plan. 76-year-old man with a history of ischemic [...] goal is to reest ablish sinus rhythm. /es/ VICENTE PELAEZ MD PHYSICIAN Signed: 11/30/2021 12:37
--- OUTSIDE RECORDS SUMMARY | 2022-04-02 16:12 | XMS_ITS | Encounter Summary ---
:1945 Author Organization [facility] Address [address] [place], [place] [address] Support Name Relationship Address Phone NIDIA MICHELE Unavailable [address] [phone] [place] [id number] NIDIA MICHELE Unavailable [address] [phone] [place] [id number] Insurance Providers: All historical and current Section [...] MEDICARE MEDICARE PART Jun 25, PART B [id number] Saumya QUINONES PATIENT (WNR) (M) B 2011 78A 0 AVID MEDICARE MEDICARE PART Sep 25, PART A [id number] Saumya QUINONES PATIENT (WNR) (M) A 2009 78A 0 AVID MEDICARE MEDICARE PART Sep 25, PART A [id number] Saumya MICHELE ATTHOMAS (WNR) (M) A 2009 78A [id number] AVID MEDICARE MEDICARE PART Sep 25, PART B [id number] Saumya MICHELE ATTHOMAS (WNR) (M) B 2009 78A [phone] AVID Selected Encounter This section includes the information on record at [place] for the Encounter. Date/Time Encounter Type Encounter Description Reason Provider Source Nov 30, 2021 01:00 Inpatient Visit ADMIN PAT ACTIVTIES SYS [place],CIS-ARK AM (MASNONCT) IHE Encounter Template Text not used by [place] Plan of Treatment: Future Appointments (+ 6 months) and Future Tests (+/- 45 days) The Plan of Treatment section includes future care activities for the patient from all [place] [facility]. This section includes future appointments and future orders which are active, pending orscheduled.Future Appointments This section includes appointments that were scheduled to occur 6 months from the date of the Encounter, up to a maximum of 20 appointments. The data comes from all [facility]. Appointment Date/Time Appointment Type Appointment Facili ty Name Dec 21, 2021 09:30 AM AMBULATORY - NONE [facility] January 07, 2022 01:30 PM AMBULATORY - MEDICINE [facility] Feb 05, 2022 07:00 AM AM[facility]ULATORY - [facility] Feb 07, 2022 09:30 AM AMBULATORY - NONE [facility] Feb 13, 2022 10:00 AM AMBULATORY [facility] Mar 21, 2022 09:30 AM AMBULATORY [facility] Active, Pending, and Scheduled Orders This section includes a listing of several types of active, pending, and scheduled orders, including clinic medications orders, diagnostic test orders, procedure orders and consult orders; where the start date of the order is 45 days before the date of the Encounter or 45 days after the date of the Encounter. The data comes from all [facility]. Test Date/Time Test Type Test Details Facility Name Nov 29, 2021 06:30 AM Laboratory - Blood Bank TYPE & SCREEN - LA B [facility] Order BLOOD SP Dec 15, 2021 12:00 AM Laboratory - Chemistry BASIC METABOLIC MIN [facility] Order PANEL+MG PLASMA SP Lab [...] [facility] [address] [facility] [address] Performing Lab: [facility] [address] [facility] [address] [facility] [address] FINGERSTICK GLUCOSE 284 H 70-100 Nov 30, 2021 09:47 AM [facility] ALBUMIN Specim en Type: PLASMA No comment enter ed. Ordering Provid er: ELIUD DINERO Report Released Date/Time: Nov 29, 2021 07:53 PM Reporting Lab: [facility] [address] [facility] [address] Performing Lab: [facility] [address] [facility] [address] ALBUMIN 3.4 L 3.5-5.2 Nov 30, 2021 09:47 [facility] BASIC METABOLIC Specimen Type: PLASMA AM PANEL+MG No comment enter ed. Ordering Provid er: ANGIE MALHOTRA Report Released Date/Time: Nov 29, 2021 08:12 PM Reporting Lab: [facility] [address] [facility] [address] Performing Lab: [facility] [address] CREATININE 1.2 0.7-1.2 UREA NITROGEN 18 8-26 [...] [facility] [address] [facility] [address] Performing Lab: [facility] [address] [facility] [address] WBC 10.61 4.0-11.0 RBC 4.33 L 4.6-6.2 [...] CARE SYSTEM [address] [facility] [address] Performing Lab: [facility] [address] [facility] [address] FINGERSTICK GLUCOSE 165 H 70-100 Nov 29, 2021 07:35 [facility] FINGERSTICK GLUCOSE Speci men Type: BLOOD PM Comment: [place] Nurse Notified Ordering Provid er: IRENE BURNS Report Released Date/Time: Nov 29, 2021 07:48 PM Reporting Lab: [facility] [address] [facility] [address] Performing Lab: [facility] [address] [facility] [address] FINGERSTICK GLUCOSE 160 H 70-100 Nov 29, 2021 06:52 [facility] FINGERSTICK GLUCOSE Speci men Type: BLOOD PM Comment: [place] Nurse Notified Ordering Provid er: SAKSHI CROUCH Report Released Date/Time: Nov 29, 2021 07:04 PM Reporting Lab: [facility] [address] [facility] [address] Performing Lab: [facility] [address] [facility] [address] FINGERSTICK GLUCOSE 161 H 70-100 Nov 29, 2021 04:18 [facility] FINGERSTICK GLUCOSE Speci men Type: BLOOD PM No comment enter ed. Ordering Provid er: IRENE BURNS Report Released Date/Time: Nov 29, 2021 08:08 PM Reporting Lab: [facility] [address] [facility] [address] Performing Lab: [facility] [address] [facility] [address] FINGERSTICK GLUCOSE 179 H 70-100 Nov 29, 2021 03:26 [facility] POC ABG/ELECTROLYTES Spec imen Type: ARTERIAL BLOOD PM Comment: Sample Type = ARTERIAL Ordering Provid er: IRENE BURNS Report Released Date/Time: Nov 29, 2021 07:53 PM Reporting Lab: [facility] [address] [facility] [address] Performing Lab: [facility] [address] [facility] [address] POC PH 7.321 L 7.35-7.45 POC PCO2 46.0 H 35.00-45.00 POC PO2 103 80.0-105.0 POC TCO2 25 23.0-27.0 POC HCO3 23.8 22.0-26.0 POC BE ECT -2 -2 POC SO2 97 95-98 POC SODIUM 145 138.0-146.0 POC POTASSIUM 3.5 3.50-5.00 POC HGB 16.0 12.00-17.00 POC HCT 47 38.0-51.0 POC IONIZED CALCIUM 4.2 L 4.50-5.30 Nov 29, 2021 03:24 [facility] FINGERSTICK GLUCOSE Speci men Type: BLOOD PM Comment: Save R esult Ordering Provid er: TEAM,CARDS TWO Report Released Date/Time: Nov 29, 2021 08:08 PM Reporting Lab: [facility] [address] Performing Lab: [facility] [address] FINGERSTICK GLUCOSE 188 H 70-100 Nov 29, 2021 02:06 [facility] POC ABG/ELECTROLYTES Spec imen Type: ARTERIAL BLOOD PM Comment: Sample Type = ARTERIAL Ordering Provid er: TEAM,CARDS TWO Report Released Date/Time: Nov 29, 2021 07:53 PM Reporting Lab: [facility] [address] Performing Lab: [facility] [address] POC PH 7.313 L 7.35-7.45 POC PCO2 48.4 H 35.00-45.00 POC PO2 93 80.0-105.0 POC TCO2 26 23.0-27.0 POC HCO3 24.5 22.0-26.0 POC BE ECT -2 -2 POC SO2 96 95-98 POC SODIUM 144 138.0-146.0 POC POTASSIUM 3.5 3.50-5.00 POC HGB 16.3 12.00-17.00 POC HCT 48 38.0-51.0 POC IONIZED CALCIUM 4.3 L 4.50-5.30 Nov 29, 2021 02:04 [facility] FINGERSTICK GLUCOSE Speci men Type: BLOOD PM Comment: Save R esult Ordering Provid er: TEAM,CARDS TWO Report Released Date/Time: Nov 29, 2021 08:08 PM Reporting Lab: [facility] [address] Performing Lab: [facility] [address] FINGERSTICK GLUCOSE 236 H 70-100 Nov 29, 2021 01:52 PM [facility] POC ACT Specim en Type: BLOOD No comment enter ed. Ordering Provid er: IRENE BURNS Report Released Date/Time: Dec 03, 2021 01:31 PM Reporting Lab: [facility] [address] [facility] [address] Performing Lab: [facility] [address] [facility] [address] POC ACT 135 84-139 Nov 29, 2021 01:16 PM [facility] POC ACT Specim en Type: BLOOD No comment enter ed. Ordering Provid er: IRENE BURNS Report Released Date/Time: Dec 03, 2021 01:30 PM Reporting Lab: [facility] [address] [facility] [address] Performing Lab: [facility] [address] POC ACT 355 84-139 Nov 29, 2021 12:49 PM [facility] POC ACT Specim en Type: BLOOD No comment enter ed. Ordering Provid er: IRENE BURNS Report Released Date/Time: Dec 03, 2021 01:30 PM Reporting Lab: [facility] [address] Performing Lab: [facility] [address] [facility] [address] POC ACT 367 84-139 Nov 29, 2021 12:48 [facility] POC ABG/ELECTROLYTES Spec imen Type: ARTERIAL BLOOD PM Comment: Sample Type = ARTERIAL Ordering Provid er: IRENE BURNS Report Released Date/Time: Nov 29, 2021 07:53 PM Reporting Lab: [facility] [address] [facility] [address] Performing Lab: [facility] [address] [facility] [address] POC PH 7.289 L 7.35-7.45 POC PCO2 52.6 H 35.00-45.00 POC PO2 86 80.0-105.0 POC TCO2 27 23.0-27.0 POC HCO3 25.2 22.0-26.0 POC BE ECT -1 -2 POC SO2 95 95-98 POC SODIUM 145 138.0-146.0 POC POTASSIUM 3.2 L 3.50-5.00 POC HGB 16.7 12.00-17.00 POC HCT 49 38.0-51.0 POC IONIZED CALCIUM 4.7 4.50-5.30 Nov 29, 2021 12:45 [facility] FINGERSTICK GLUCOSE Speci men Type: BLOOD PM Comment: Save R esult Ordering Provid er: IRNEE BURNS Report Released Date/Time: Nov 29, 2021 08:08 PM Reporting Lab: [facility] [address] [facility] [address] Performing Lab: [facility] [address] [facility] [address] FINGERSTICK GLUCOSE 186 H 70-100 Nov 29, 2021 12:26 PM [facility] POC ACT Specim en Type: BLOOD No comment enter ed. Ordering Provid er: IRENE BURNS Report Released Date/Time: Dec 03, 2021 01:30 PM Reporting Lab: [facility] [address] [facility] [address] Performing Lab: [facility] [address] [facility] [address] POC ACT 367 84-139 Nov 29, 2021 11:58 AM [facility] POC ACT Specim en Type: BLOOD No comment enter ed. Ordering Provid er: IRENE BURNS Report Released Date/Time: Dec 03, 2021 01:30 PM Reporting Lab: [facility] [address] [facility] [address] Performing Lab: [facility] [address] [facility] [address] POC ACT 338 84-139 Nov 29, 2021 11:53 [facility] FINGERSTICK GLUCOSE Speci men Type: BLOOD AM Comment: Save R esult Ordering Provid er: IRENE BURNS Report Released Date/Time: Nov 29, 2021 08:08 PM Reporting Lab: [facility] [address] [facility] [address] Performing Lab: [facility] [address] [facility] [address] FINGERSTICK GLUCOSE 225 H 70-100 Nov 29, 2021 11:30 AM [facility] POC ACT Specim en Type: BLOOD No comment enter ed. Ordering Provid er: IRENE BURNS TWO Report Released Date/Time: Dec 03, 2021 01:30 PM Reporting Lab: [facility] [address] [facility] [address] Performing Lab: [facility] [address] [facility] [address] POC ACT 355 84-139 Nov 29, 2021 11:26 [facility] POC ABG/ELECTROLYTES Spec imen Type: ARTERIAL BLOOD AM Comment: Sample Type = ARTERIAL Ordering Provid er: IRENE BURNS Report Released Date/Time: Nov 29, 2021 07:53 PM Reporting Lab: [facility] [address] [facility] [address] Performing Lab: [facility] [address] [facility] [address] POC PH 7.317 L 7.35-7.45 POC PCO2 52.3 H 35.00-45.00 POC PO2 81 80.0-105.0 POC TCO2 28 H 23.0-27.0 POC HCO3 26.8 H 22.0-26.0 POC BE ECT 1 -2 POC SO2 94 L 95-98 POC SODIUM 143 138.0-146.0 POC POTASSIUM 3.5 3.50-5.00 POC HGB 17.3 H 12.00-17.00 POC HCT 51 38.0-51.0 POC IONIZED CALCIUM 4.8 4.50-5.30 Nov 29, 2021 11:06 [facility] FINGERSTICK GLUCOSE Speci men Type: BLOOD AM No comment enter ed. Ordering Provid er: IRENE BURNS TWO Report Released Date/Time: Nov 29, 2021 08:08 PM Reporting Lab: [facility] [address] [facility] [address] Performing Lab: [facility] [address] [facility] [address] FINGERSTICK GLUCOSE 221 H 70-100 Nov 29, 2021 11:02 AM [facility] POC ACT Specim en Type: BLOOD No comment enter ed. Ordering Provid er: IRENE BURNS TWO Report Released Date/Time: Dec 03, 2021 01:30 PM Reporting Lab: [facility] [address] [facility] [address] Performing Lab: [facility] [address] [facility] [address] POC ACT 294 84-139 Nov 29, 2021 10:26 AM [facility] POC ACT Specim en Type: BLOOD No comment enter ed. Ordering Provid er: IRENE BURNS TWO Report Released Date/Time: Dec 03, 2021 01:30 PM Reporting Lab: [facility] [address] [facility] [address] Performing Lab: [facility] [address] [facility] [address] POC ACT 329 84-139 Nov 29, 2021 10:06 AM [facility] POC ACT Specim en Type: BLOOD No comment enter ed. Ordering Provid er: IRENE BURNS Report Released Date/Time: Dec 03, 2021 01:30 PM Reporting Lab: [facility] [address] [facility] [address] Performing Lab: [facility] [address] [facility] [address] POC ACT 312 84-139 Nov 29, 2021 09:58 [facility] POC ABG/ELECTROLYTES Spec imen Type: ARTERIAL BLOOD AM Comment: Sample Type = ARTERIAL Ordering Provid er: IRENE BURNS Report Released Date/Time: Nov 29, 2021 07:53 PM Reporting Lab: [facility] [address] [facility] [address] Performing Lab: [facility] [address] [facility] [address] POC PH 7.334 L 7.35-7.45 POC PCO2 48.7 H 35.00-45.00 POC PO2 96 80.0-105.0 POC TCO2 27 23.0-27.0 POC HCO3 25.9 22.0-26.0 POC BE ECT 0 -2 POC SO2 97 95-98 POC SODIUM 143 138.0-146.0 POC POTASSIUM 4.1 3.50-5.00 POC HGB 17.3 H 12.00-17.00 POC HCT 51 38.0-51.0 POC IONIZED CALCIUM 4.9 4.50-5.30 Nov 29, 2021 09:56 [facility] FINGERSTICK GLUCOSE Speci men Type: BLOOD AM No comment enter ed. Ordering Provid er: IRENE BURNS TWO Report Released Date/Time: Nov 29, 2021 08:08 PM Reporting Lab: [facility] [address] [facility] [address] Performing Lab: [facility] [address] [facility] [address] FINGERSTICK GLUCOSE 194 H 70-100 Nov 29, 2021 09:45 AM [facility] POC ACT Specim en Type: BLOOD No comment enter ed. Ordering Provid er: IRENE BURNS TWO Report Released Date/Time: Dec 03, 2021 01:30 PM Reporting Lab: [facility] [address] [facility] [address] Performing Lab: [facility] [address] [facility] [address] POC ACT 269 84-139 Nov 29, 2021 08:59 AM [facility] POC ACT Specim en Type: BLOOD No comment enter ed. Ordering Provid er: TEAM,CARDS TWO Report Released Date/Time: Dec 03, 2021 01:30 PM Reporting Lab: [facility] [address] [facility] [address] Performing Lab: [facility] [address] [facility] [address] POC ACT 135 84-139 Nov 29, 2021 [facility] COVID-19 AND FLU/RSV Specime n Type: NASOPHARYNGEAL 07:05 AM DIAG PANEL(CEPHEID) Comment: Ce pheid GeneXpert (618) Ordering Provid er: KATHERINE FIGUEROA Report Released Date/Time: Oct 29, 2021 12:22 PM Reporting Lab: [facility] [address] [facility] [address] Performing Lab: [facility] [address] [facility] [address] COVID-19 (CEPHEID) Not Detected Not Dete cted [...] CARE SYSTEM [address] [facility] [address] Performing Lab: [facility] [address] [facility] [address] APTT 33.3 25.1-36.5 Nov 29, 2021 [facility] PROTHROMBIN Specimen Typ e: PLASMA 06:38 AM TIME/INR No comment enter ed. Ordering Provid er: KATHERINE FIGUEROA Report Released Date/Time: Oct 29, 2021 12:22 PM Reporting Lab: [facility] [address] [facility] [address] Performing Lab: [facility] [address] [facility] [address] .INR 1.1 0.8-1.1 .PT 13.1 H 9.4-12.5 Nov 29, 2021 [facility] BASIC METABOLIC Specimen Typ e: PLASMA 06:38 AM PANEL+MG No comment enter ed. Ordering Provid er: KATHERINE FIGUEROA Report Released Date/Time: Oct 29, 2021 12:22 PM Reporting Lab: [facility] [address] Performing Lab: [facility] [address] CREATININE 1.4 H 0.7-1.2 UREA NITROGEN 23 [...] Oct 29, 2021 12:22 PM Reporting Lab: [facility] [address] Performing Lab: [facility] [address] WBC 7.40 4.0-11.0 RBC 5.17 4.6-6.2 HGB 17.6 13.5-17.9 HCT 52.7 41-54 MCV 101.9 H 80-100 MCH 34.0 H 27-33 MCHC 33.4 32.0-37.5 PLT 88 L 150-400 MPV 14.3 H 7.4-10.4 RDW 14.4 11.5-14.5 IPF 18.0 H 0-10 Vital Signs: All taken on the encounter date This section contains inpatient and outpatient Vital Signs collected on the date of the Encounter. Date/Time Temperature Pulse Blood Respiratory SP02 Pain Height Weight Axel dy Source Pressure Rate Mass Index Nov 30, 100 104/72 18 /min 92 % [place] 2021 10:19 /min mm[Hg] [facility] Nov 30, 99.0 F 92 102/69 18 /min 90 % 0 [place] 2021 07:53 /min mm[Hg] [facility] Nov 30 98/65 16 /min 88 % [place] 2021 03:56 /min mm[Hg] [facility] Social History: Smoking Status (Most current) and [...] 08:36 PM VA-VAAES TOBACCO USE CURRENT NRT [facility] ACCEPT Tobacco Use History This section includes a history of the smoking, or tobacco- related health factors, that were collected on or before the date of the Encounter. The data comes from the [place] facility where the Encounter took place. 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 [facility] Jun 09, 2018 03:48 PM VA-TOBACCO USE MED NO [place] [facility] Jun 09, 2018 03:48 PM VA-TOBACCO USE WI 30 MIN OF WAKEUP [facility] Jun 09, 2018 03:48 PM VA-TOBACCO USER EVERY DAY [facility] Jun 20, 2017 07:53 AM CURRENT TOBACCO USER [facility] Jun 19, 2016 08:41 AM CURRENT TOBACCO USER [facility] Jun 21, 2015 08:15 AM CURRENT TOBACCO USER [facility] Mar 22, 2014 10:03 AM CURRENT TOBACCO USER [facility] Mar 25, 2013 11:01 AM CURRENT TOBACCO USER [facility] Feb 05, 2012 08:55 AM CURRENT TOBACCO USER [facility] January 01, 2011 09:26 AM CURRENT TOBACCO USER [facility] Mar 07, 2010 10:02 AM CURRENT TOBACCO USER [facility] Feb 21, 2009 08:17 AM CURRENT [...] The data comes from all [facility]. Date Advance Directives Provider Source Mar 06, 2005 ADVANCE DIRECTIVE MICHAELGANESH [facility] Radiology Reports: [...] the Encounter. The data comes from all [place] treatment facilities. Date/Time Radiology Report Provider Source Nov 30, 2021 07:05 AM CHEST 2 VIEWS PA AND LAT: MONET LUDWIG [facility] PAUL MICHELE [id number] -[birth year] M Exm Date: NOV 30, 2021@07:05 Req Phys: KIRCHERRY SIERRA Loc: 3LSOB/ 2@08:05 Img Loc: MAIN X-RAY Service: zzcard sect (Case [id number] COMPLETE) CHEST 2 VIEWS PA AND LAT (R AD Detailed) CPT:37165 Reason for Study: s/p upgrade ICD adding [...] pager listed below: User placing orders pager: [phone] LAST CREATININE 1.4 H (11/29/21) Report Status: Verified Date Reported: NOV 30, 2021 Date Verified: NOV 30, 2021 Batch Blender E-Sig:/ES/MONET LUDWIG MD, FACR, C CD Report: [...] 06:25 PM CHEST 1 VIEW: MAGDALENE DAVIDSON [facility] PAUL MICHELE [id number] -[birth year] 9 M Exm Date: NOV 29, 2021@18:25 Req Phys: CHERRY MENDOZA Loc: [facility] [address] A[facility] (Req'g Loc) Img Loc: MAIN X-RAY Service: Unknown (Case [id number] COMPLETE) CHEST 1 VIEW (RAD Detailed) CPT:00765 Reason for Study: s/p upgrade ICD adding an A l ead Clinical History: Immediate Post-Op Pacemaker/ICD placement [place] IS NOT under investigation for COVID-19 or is COVID-19 negative s/p upgrade his ICD to dual chamber (adding an A lead) Responsible provider name and phone number to n otify for critical findings if other than user placing the order a nd pager listed below: User placing orders pager: [phone] LAST CREATININE 1.4 H (11/29/21) Report Status: Verified Date Reported: NOV 29, 2021 Date Verified: NOV 29, 2021 Batch Blender E-Sig:/ES/MAGDALENE DAVIDSON MD Report: DATE/TIME REGISTERED: 11/29/2021 [...] Encounter Note(s) Provider Source Nov 30, 2021 01:00 AM CRITICAL CARE UNIT NOTE: FLORENCIO RIOS [facility] LOCAL TITLE: ICCA INPATIENT FLOWSHEET STANDARD TITLE: CRITICAL CARE UNIT NOTE DATE OF NOTE: NOV 30, 2021@01:00 ENTRY DATE: DEC 01, 2021@14:32:01 AUTHOR: FLORENCIO RIOS EXP COSIGNER: URGENCY: STATUS: COMPLETED This is a place pyle only. Please see VISTA Im aging to view document. /billy/ FLORENCIO SYSTEM ICU DOCUMENT IMPORT Signed: 12/01/2021 14:32 Nov 30, 2021 01:00 AM CRITICAL CARE UNIT NOTE: FLORENC[facility] RI[facility] LOCAL TITLE: ICCA RESPIRATORY THERAPY FLOWSHEET STANDARD TITLE: CRITICAL CARE UNIT NOTE DATE OF NOTE: NOV 30, 2021@01:00 ENTRY DATE: DEC 01, 2021@15:01:03 AUTHOR: SYSTEM,[facility]-ARK EXP COSIGNER: URGENCY: STATUS: COMPLETED This is a place pyle only. Please see VISTA Im aging to view document. /es/ [facility]IS[facility] SYSTEM ICU DOCUMENT IMPORT Signed: 12/01/2021 15:01
--- OUTSIDE RECORDS SUMMARY | 2022-04-02 16:13 | XMS_ITS | Encounter Summary ---
:1945 Author Organization Department [facility] Address [address] [place] [id number] Care Team Providers Name Role Phone CROUCH [...] MEDICARE MEDICARE PART Jun 25, PART B [id number] Saumya QUINONES PATIENT (WNR) (M) B 2011 78A 0 AVID MEDICARE MEDICARE PART Sep 25, PART A [id number] Saumya QUINONES PATIENT (WNR) (M) A 2009 78A 0 AVID MEDICARE MEDICARE PART Sep 25, PART A [id number] Saumya MICHELE (WNR) (M) A 2009 78A [id number] AVID MEDICARE MEDICARE PART Sep 25, PART B [id number] Saumya MICHELE (WNR) (M) B 2009 78A [phone] AVID Selected Encounter This section includes the information on record at MA for the Encounter. Date/Time Encounter Type Encounter Description Reason Provider Source Nov 29, 2021 07:50 Outpatient Encounter EVENT (HISTORICAL) AM IHE Encounter Template Text not used by MA Plan of Treatment: Future Appointments (+ 6 months) and Future Tests (+/- 45 days) The Plan of Treatment section includes future care activities for the patient from [facility] This section includes future appointments and future orders which are active, pending orscheduled.Future Appointments This section includes appointments that were scheduled to occur 6 months from the date of the Encounter, up to a maximum of 20 appointments. The data comes from all [facility]. Appointment Date/Time Appointment Type Appointment Facili ty Name Dec 21, 2021 09:30 AM AMBULATORY - NONE [facility] January 07, 2022 01:30 PM AMBULATORY - [facility]INE [facility] Feb 05, 2022 07:00 AM AMBULATORY - [facility] Feb 07, 2022 09:30 AM AMBULATORY - NONE [facility] Feb 13, 2022 10:00 AM AMBULATORY [facility] Mar 21, 2022 09:30 AM AMBULATORY [facility] Active, Pending, and Scheduled Orders This section includes a listing of several types of active, pending, and scheduled orders, including clinic medications orders, diagnostic test orders, procedure orders and consult orders; where the start date of the order is 45 days before the date of the Encounter or 45 days after the date of the Encounter. The data comes from all [facility]. Test Date/Time Test Type Test Details Facility [...] and Hematology Lab Results on record with MA for the patient. Radiology Reports and Pathology [...] Nov 30, 2021 11:46 AM Reporting Lab: [facility] [address] Performing Lab: [facility] [address] FINGERSTICK GLUCOSE 284 mg/dL H 70-100 Nov 30, 2021 09:47 AM [facility] ALBUMIN Specim en Type: PLASMA No comment enter ed. Ordering Provid er: ELIUD DINERO Report Released Date/Time: Nov 29, 2021 07:53 PM Reporting Lab: [facility] [address] [facility] [address] Performing Lab: [facility] [address] ALBUMIN 3.4 g/dL L 3.5-5.2 Nov 30, 2021 09:47 [facility] BASIC METABOLIC Specimen Type: PLASMA AM PANEL+MG No comment enter ed. Ordering Provid er: ANGIE MALHOTRA Report Released Date/Time: Nov 29, 2021 08:12 PM Reporting Lab: [facility] [address] Performing Lab: [facility] [address] CREATININE 1.2 mg/dL 0.7-1.2 UREA NITROGEN 18 [...] [facility] [address] [facility] [address] Performing Lab: [facility] [address] WBC 10.61 10*3/uL 4.0-11.0 RBC 4.33 10*6/uL [...] [facility] [address] [facility] [address] Performing Lab: [facility] [address] [facility] [address] FINGERSTICK GLUCOSE 165 mg/dL H 70-100 Nov 29, 2021 07:35 [facility] FINGERSTICK GLUCOSE Speci men Type: BLOOD PM Comment: [place] Nurse Notified Ordering Provid er: IRENE BURNS TWO Report Released Date/Time: Nov 29, 2021 07:48 PM Reporting Lab: [facility] [address] [facility] [address] Performing Lab: [facility] [address] [facility] [address] FINGERSTICK GLUCOSE 160 mg/dL H 70-100 Nov 29, 2021 06:52 [facility] FINGERSTICK GLUCOSE Speci men Type: BLOOD PM Comment: [place] Nurse Notified Ordering Provid er: SAKSHI CROUCH Report Released Date/Time: Nov 29, 2021 07:04 PM Reporting Lab: [facility] [address] [facility] [address] Performing Lab: [facility] [address] [facility] [address] FINGERSTICK GLUCOSE 161 mg/dL H 70-100 Nov 29, 2021 04:18 [facility] FINGERSTICK GLUCOSE Speci men Type: BLOOD PM No comment enter ed. Ordering Provid er: IRENE BURNS TWO Report Released Date/Time: Nov 29, 2021 08:08 PM Reporting Lab: [facility] [address] [facility] [address] Performing Lab: [facility] [address] [facility] [address] FINGERSTICK GLUCOSE 179 mg/dL H 70-100 Nov 29, 2021 03:26 [facility] POC ABG/ELECTROLYTES Spec imen Type: ARTERIAL BLOOD PM Comment: Sample Type = ARTERIAL Ordering Provid er: IRENE BURNS TWO Report Released Date/Time: Nov 29, 2021 07:53 PM Reporting Lab: [facility] [address] Performing Lab: [facility] [address] POC PH 7.321 L 7.35-7.45 POC PCO2 [...] 08:08 PM Reporting Lab: [facility] [address] Performing Lab: [facility] [address] FINGERSTICK GLUCOSE 188 mg/dL H 70-100 Nov 29, 2021 02:06 [facility] POC ABG/ELECTROLYTES Spec imen Type: ARTERIAL BLOOD PM Comment: Sample Type = ARTERIAL Ordering Provid er: TEAM,CARDS TWO Report Released Date/Time: Nov 29, 2021 07:53 PM Reporting Lab: [facility] [address] Performing Lab: [facility] [address] POC PH 7.313 L 7.35-7.45 POC PCO2 [...] [facility] [address] [facility] [address] Performing Lab: [facility] [address] [facility] [address] FINGERSTICK GLUCOSE 236 mg/dL H 70-100 Nov 29, 2021 01:52 PM [facility] POC ACT Specim en Type: BLOOD No comment enter ed. Ordering Provid er: IRENE BURNS Report Released Date/Time: Dec 03, 2021 01:31 PM Reporting Lab: [facility] [address] [facility] [address] Performing Lab: [facility] [address] [facility] [address] POC ACT 135 s 84-139 Nov 29, 2021 01:16 PM [facility] POC ACT Specim en Type: BLOOD No comment enter ed. Ordering Provid er: IRENE BURNS Report Released Date/Time: Dec 03, 2021 01:30 PM Reporting Lab: [facility] [address] [facility] [address] Performing Lab: [facility] [address] [facility] [address] POC ACT 355 s 84-139 Nov 29, 2021 12:49 PM [facility] POC ACT Specim en Type: BLOOD No comment enter ed. Ordering Provid er: IRENE BURNS Report Released Date/Time: Dec 03, 2021 01:30 PM Reporting Lab: [facility] [address] [facility] [address] Performing Lab: [facility] [address] [facility] [address] POC ACT 367 s 84-139 Nov 29, 2021 12:48 [facility] POC ABG/ELECTROLYTES Spec imen Type: ARTERIAL BLOOD PM Comment: Sample Type = ARTERIAL Ordering Provid er: IRENE BURNS Report Released Date/Time: Nov 29, 2021 07:53 PM Reporting Lab: [facility] [address] [facility] [address] Performing Lab: [facility] [address] [facility] [address] POC PH 7.289 L 7.35-7.45 POC PCO2 [...] [facility] [address] [facility] [address] Performing Lab: [facility] [address] [facility] [address] FINGERSTICK GLUCOSE 186 mg/dL H 70-100 Nov 29, 2021 12:26 PM [facility] POC ACT Specim en Type: BLOOD No comment enter ed. Ordering Provid er: IRENE BURNS TWO Report Released Date/Time: Dec 03, 2021 01:30 PM Reporting Lab: [facility] [address] [facility] [address] Performing Lab: [facility] [address] [facility] [address] POC ACT 367 s 84-139 Nov 29, 2021 11:58 AM [facility] POC ACT Specim en Type: BLOOD No comment enter ed. Ordering Provid er: IRENE BURNS TWO Report Released Date/Time: Dec 03, 2021 01:30 PM Reporting Lab: [facility] [address] [facility] [address] Performing Lab: [facility] [address] [facility] [address] POC ACT 338 s 84-139 Nov 29, 2021 11:53 [facility] FINGERSTICK GLUCOSE Speci men Type: BLOOD AM Comment: Save R esult Ordering Provid er: IRENE BURNS TWO Report Released Date/Time: Nov 29, 2021 08:08 PM Reporting Lab: [facility] [address] [facility] [address] Performing Lab: [facility] [address] FINGERSTICK GLUCOSE 225 mg/dL H 70-100 Nov 29, 2021 11:30 AM [facility] POC ACT Specim en Type: BLOOD No comment enter ed. Ordering Provid er: IRENE BURNS Report Released Date/Time: Dec 03, 2021 01:30 PM Reporting Lab: [facility] [address] Performing Lab: [facility] [address] POC ACT 355 s 84-139 Nov 29, 2021 11:26 [facility] POC ABG/ELECTROLYTES Spec imen Type: ARTERIAL BLOOD AM Comment: Sample Type = ARTERIAL Ordering Provid er: IRENE BURNS TWO Report Released Date/Time: Nov 29, 2021 07:53 PM Reporting Lab: [facility] [address] Performing Lab: [facility] [address] POC PH 7.317 L 7.35-7.45 POC PCO2 [...] 08:08 PM Reporting Lab: [facility] [address] Performing Lab: [facility] [address] FINGERSTICK GLUCOSE 221 mg/dL H 70-100 Nov 29, 2021 11:02 AM [facility] POC ACT Specim en Type: BLOOD No comment enter ed. Ordering Provid er: IRENE BURNS Report Released Date/Time: Dec 03, 2021 01:30 PM Reporting Lab: [facility] [address] [facility] [address] Performing Lab: [facility] [address] [facility] [address] POC ACT 294 s 84-139 Nov 29, 2021 10:26 AM [facility] POC ACT Specim en Type: BLOOD No comment enter ed. Ordering Provid er: IRENE BURNS Report Released Date/Time: Dec 03, 2021 01:30 PM Reporting Lab: [facility] [address] [facility] [address] Performing Lab: [facility] [address] [facility] [address] POC ACT 329 s 84-139 Nov 29, 2021 10:06 AM [facility] POC ACT Specim en Type: BLOOD No comment enter ed. Ordering Provid er: IRENE BURNS Report Released Date/Time: Dec 03, 2021 01:30 PM Reporting Lab: [facility] [address] [facility] [address] Performing Lab: [facility] [address] [facility] [address] POC ACT 312 s 84-139 Nov 29, 2021 09:58 [facility] POC ABG/ELECTROLYTES Spec imen Type: ARTERIAL BLOOD AM Comment: Sample Type = ARTERIAL Ordering Provid er: IRENE BURNS Report Released Date/Time: Nov 29, 2021 07:53 PM Reporting Lab: [facility] [address] [facility] [address] Performing Lab: [facility] [address] [facility] [address] POC PH 7.334 L 7.35-7.45 POC PCO2 [...] [facility] [address] [facility] [address] Performing Lab: [facility] [address] [facility] [address] FINGERSTICK GLUCOSE 194 mg/dL H 70-100 Nov 29, 2021 09:45 AM [facility] POC ACT Specim en Type: BLOOD No comment enter ed. Ordering Provid er: IRENE BURNS Report Released Date/Time: Dec 03, 2021 01:30 PM Reporting Lab: [facility] [address] [facility] [address] Performing Lab: [facility] [address] [facility] [address] POC ACT 269 s 84-139 Nov 29, 2021 08:59 AM [facility] POC ACT Specim en Type: BLOOD No comment enter ed. Ordering Provid er: IRENE BURNS TWO Report Released Date/Time: Dec 03, 2021 01:30 PM Reporting Lab: [facility] [address] [facility] [address] Performing Lab: [facility] [address] [facility] [address] POC ACT 135 s 84-139 Nov 29, 2021 [facility] COVID-19 AND FLU/RSV Specime n Type: NASOPHARYNGEAL 07:05 AM DIAG PANEL(CEPHEID) Comment: Ce pheid GeneXpert (618) Ordering Provid er: KATHERINE FIGUEROA Report Released Date/Time: Oct 29, 2021 12:22 PM Reporting Lab: [facility] [address] [facility] [address] Performing Lab: [facility] [address] [facility] [address] COVID-19 (CEPHEID) Not Detected Not Dete cted [...] [facility] [address] [facility] [address] Performing Lab: [facility] [address] CREATININE 1.4 mg/dL H 0.7-1.2 UREA NITROGEN [...] 12:22 PM Reporting Lab: [facility] [address] Performing Lab: [facility] [address] WBC 7.40 10*3/uL 4.0-11.0 RBC 5.17 10*6/uL [...] 12:22 PM Reporting Lab: [facility] [address] Performing Lab: [facility] [address] [facility] [address] .INR 1.1 0.8-1.1 .PT 13.1 s H 9.4-12.5 Nov 29, 2021 [facility] ACT PART Specimen Typ e: PLASMA 06:38 AM THROMBO TIME No comment enter ed. Ordering Provid er: KATHERINE FIGUEROA Report Released Date/Time: Oct 29, 2021 12:22 PM Reporting Lab: [facility] [address] [address] Performing Lab: [facility] [address] APTT 33.3 s 25.1-36.5 Vital Signs: All taken on the encounter date This section contains inpatient and outpatient Vital Signs collected on the date of the Encounter. Date/Time Temperature Pulse Blood Respiratory SP02 Pain Height Weight Axel dy Source Pressure Rate Mass Index Nov 29, 98.3 F 96 99/66 18 /min 90 % 0 [place] 2021 11:07 /min mm[Hg] [facility] Nov 29 96 % [place] 2021 08:40 /min [facility] Nov 29, 232 lb 30 [place] 2021 08:38 [facility] Nov 29 112/73 97 % [place] 2021 08:35 /min mm[Hg] [facility] Nov 29, 113/69 90 % [place] 2021 08:15 /min mm[Hg] [facility] Social History: Smoking Status (Most current) and Tobacco Use (All prior to encounter date) This section includes the most current, and the historical, smoking and tobacco-related health factors from the [place] facility where the Encounter took place.Current Smoking Status This section includes the most current smoking, or tobacco-related health factor, from the [place] facility where the Encounter took place. Date/Time Current Smoking Status Comment Facility Nov 29, 2021 08:36 PM MA-VAAES TOBACCO USE CURRENT NRT [facility] ACCEPT Tobacco Use History This section includes a history of the smoking, or tobacco- related health factors, that were collected on or before the date of the Encounter. The data comes from the [place] facility where the Encounter took place. Date/Time Smoking Status/Tobacco Use Comment [facility] it Mar 20, 2021 11:21 AM VA-VAAES TOBACCO USE CURRENT NRT [facility] DECLINE Nov 15, 2020 10:00 AM VA-TOBACCO DOESNT USE WI 30 MIN [facility] WAKEUP Nov 15, 2020 10:00 AM VA-TOBACCO USE 30 YEARS OR MORE [facility] Nov 15, 2020 10:00 AM VA-TOBACCO USE ADVICE [place] [facility] Nov 15, 2020 10:00 AM VA-TOBACCO USE ALLERGIST/MD NO [facility] Nov 15, 2020 10:00 AM VA-TOBACCO USE MED NO [place] [facility] Nov 15, 2020 10:00 AM VA-TOBACCO USER EVERY DAY [facility] Jun 21, 2019 02:29 PM VA-TOBACCO USE 30 YEARS OR MORE [facility] Jun 21, 2019 02:29 PM VA-TOBACCO USE ADVICE [place] [facility] Jun 21, 2019 02:29 PM VA-TOBACCO USE ALLERGIST/MD NO [facility] Jun 21, 2019 02:29 PM VA-TOBACCO USE MED NO [place] [facility] Jun 21, 2019 02:29 PM VA-TOBACCO USE WI 30 MIN OF WAKEUP [facility] Jun 21, 2019 02:29 PM VA-TOBACCO USER EVERY DAY [facility] Jun 09, 2018 03:48 PM VA-TOBACCO USE 30 YEARS OR MORE [facility] Jun 09, 2018 03:48 PM VA-TOBACCO USE ADVICE [place] [facility] Jun 09, 2018 03:48 PM VA-TOBACCO USE ALLERGIST/MD NO [facility] Jun 09, 2018 03:48 PM VA-TOBACCO USE MED NO [place] [facility] Jun 09, 2018 03:48 PM VA-TOBACCO USE WI 30 MIN OF WAKEUP [facility] Jun 09, 2018 03:48 PM VA-TOBACCO USER EVERY DAY [facility] Jun 20, 2017 07:53 AM CURRENT TOBACCO USER [facility] Jun 19, 2016 08:41 AM CURRENT TOBACCO USER [facility] Jun 21, 2015 08:15 AM CURRENT TOBACCO USER [facility] Mar 22, 2014 10:03 AM CURRENT TOBACCO USER [facility] Mar 25, 2013 11:01 AM CURRENT TOBACCO USER [facility] Feb 05, 2012 08:55 AM CURRENT TOBACCO USER [facility] January 01, 2011 09:26 AM CURRENT TOBACCO USER [facility] Mar 07, 2010 10:02 AM CURRENT TOBACCO USER [facility] Feb 21, 2009 08:17 AM CURRENT TOBACCO USER [facility] Nov 06, 2007 10:02 AM CURRENT TOBACCO USER [facility] January 02, 2007 10:33 AM CURRENT TOBACCO USER [facility] Advance Directives: All historical and current Section Date Range: From patient's date of to the date document was created. This section includes ALL of a patient's completed or amended [place] Advance and Rescinded Directives. The entries below indicate that a directive exists for the patient, but an actual copy is not included with this document. The data comes from all [facility]. Date Advance Directives Provider Source Mar [...] the Encounter. The data comes from all [place] treatment facilities. Date/Time Radiology Report Provider Source Nov 30, 2021 07:05 AM CHEST 2 VIEWS PA AND LAT: MONET LUDWIG [facility] PAUL MICHELE [id number] -[birth year] 9 M Exm Date: NOV 30, 2021@07:05 Req Phys: CHERRY MENDOZA Loc: 3LSOB/ 2@08:05 Img Loc: MAIN X-RAY Service: zzcard sect (Case [id number] COMPLETE) CHEST 2 VIEWS PA AND LAT (R AD Detailed) CPT:27600 Reason for Study: s/p upgrade ICD adding an A l ead Clinical History: Post ICD or Pacemaker: Verify Lead Placement. [place] IS NOT under investigation for COVID-19 or is COVID-19 negative s/p upgrade ICD adding an A lead Responsible pr ovider name and phone number to notify for critical findings if other than user placing the order and pager listed below: User placing orders pager: [phone] LAST CREATININE 1.4 H (11/29/21) Report Status: Verified Date Reported: NOV 30, 2021 Date Verified: NOV 30, 2021 Field Training Agent E-Sig:/ES/MONET LUDWIG MD, FACR, C CD Report: [...] 06:25 PM CHEST 1 VIEW: MAGDALENE DAVIDSON [facility] PA[place] MIC[place] [id number] -JUL [birth year] 9 M Exm Date: NOV 29, 2021@18:25 Req Phys: CHERRY MENDOZA Pat Loc: [facility] [address] [facility] (Req'g Loc) Img Loc: MAIN X-RAY Service: Unknown (Case [id number] COMPLETE) CHEST 1 VIEW (RAD Detailed) CPT:10258 Reason for Study: s/p upgrade ICD adding an A l ead Clinical History: Immediate Post-Op Pacemaker/ICD placement [place] IS NOT under investigation for COVID-19 or is COVID-19 negative s/p upgrade his ICD to dual chamber (adding an A lead) Responsible provider name and phone number to n otify for critical findings if other than user placing the order a nd pager listed below: User placing orders pager: [phone] LAST CREATININE 1.4 H (11/29/21) Report Status: Verified Date Reported: NOV 29, 2021 Date Verified: NOV 29, 2021 Field Training Agent E-Sig:/[email or web address] DAVIDSON MD Report: DATE/TIME REGISTERED: 11/29/2021 [...] Primary Interpreting Staff: MAGDALENE DAVIDSON MD, RADIOLOGIST (Field Training Agent) /LUAN
--- OUTSIDE RECORDS SUMMARY | 2022-04-02 16:13 | XMS_ITS | Encounter Summary ---
:1945 Author Organization Department [facility] Address [address] [place] [address] Care Team Providers Name Role Phone SAKSHI [...] MEDICARE MEDICARE PART Jun 25, PART B [id number] Saumya QUINONES PATIENT (WNR) (M) B 2011 78A 0 AVID MEDICARE MEDICARE PART Sep 25, PART A [id number] Saumya QUINONES PATIENT (WNR) (M) A 2009 78A 0 AVID MEDICARE MEDICARE PART Sep 25, PART A [id number] Saumya MICHELE ATIENT (WNR) (M) A 2009 78A [id number] AVID MEDICARE MEDICARE PART Sep 25, PART B [id number] Saumya MICHELE ATIENT (WNR) (M) B 2009 [id number] [phone] AVID Selected Encounter This section includes the information on record at [place] for the Encounter. Date/Time Encounter Type Encounter Reason Provider Source Description Nov 29, 2021 01:00 Outpatient ADMIN PAT ACTIVTIES SYSTEM,C IS-ARK AM Encounter (MASNONCT) IHE Encounter Template Text not used by [place] Plan of Treatment: Future Appointments (+ 6 months) and Future Tests (+/- 45 days) The Plan of Treatment section includes future care activities for the patient [facility] [place] [facility] This section includes future appointments and future orders which are active, pending orscheduled.Future Appointments This section includes appointments that were scheduled to occur 6 months from the date of the Encounter, up to a maximum of 20 appointments. The data comes from all [facility]. Appointment Date/Time Appointment Type Appointment Facili ty Name Dec 21, 2021 09:30 AM AMBULATORY - NONE [facility] January 07, 2022 01:30 PM AMBULATORY - MEDICINE [facility] Feb 05, 2022 07:00 AM AMBULATORY [facility] Feb 07, 2022 09:30 AM AMBULATORY - NONE [facility] Feb 13, 2022 10:00 AM AMBULATORY [facility] Mar 21, 2022 09:30 AM AMBULATORY [facility] Active, Pending, and Scheduled Orders This section includes a listing of several types of active, pending, and scheduled orders, including clinic medications orders, diagnostic test orders, procedure orders and consult orders; where the start date of the order is 45 days before the date of the Encounter or 45 days after the date of the Encounter. The data comes from all [facility]. Test Date/Time Test Type Test Details Facility Name Nov 29, 2021 06:30 AM Laboratory - Blood Bank TYPE & SCREEN - LA B [facility] Order BLOOD SP Dec 15, 2021 12:00 [...] Reference Range Comment Nov 30, 2021 11:26 [facility] FINGERSTICK GLUCOSE Speci men Type: BLOOD AM Comment: [place] Nurse Notified Ordering Provid er: TEAM,CARDS TWO Report Released Date/Time: Nov 30, 2021 11:46 AM Reporting Lab: [facility] [address] Performing Lab: [facility] [address] FINGERSTICK GLUCOSE 284 mg/dL H 70-100 Nov 30, 2021 09:47 AM [facility] ALBUMIN Specim en Type: PLASMA No comment enter ed. Ordering Provid er: ELIUD DINERO Report Released Date/Time: Nov 29, 2021 07:53 PM Reporting Lab: [facility] [address] [facility] [address] Performing Lab: [facility] [address] [facility] [address] ALBUMIN 3.4 g/dL L 3.5-5.2 Nov 30, 2021 09:47 [facility] BASIC METABOLIC Specimen Type: PLASMA AM PANEL+MG No comment enter ed. Ordering Provid er: ANGIE MALHOTRA Report Released Date/Time: Nov 29, 2021 08:12 PM Reporting Lab: [facility] [address] [facility] [address] Performing Lab: [facility] [address] CREATININE 1.2 mg/dL 0.7-1.2 UREA NITROGEN 18 mg/dL 8-26 GLUCOSE 342 mg/dL H 74-100 SODIUM 141 mmol/L 136-145 POTASSIUM 4.3 mmol/L 3.5-5.1 CHLORIDE 108 mmol/L H 98-107 CO2 26 mmol/L 22-29 CALCIUM 8.6 mg/dL 8.4-10.2 MAGNESIUM 1.5 mg/dL L 1.6-2.6 ANION GAP 7 mmol/L 5-15 CREAT EGFR(CKD-EPI) 63 >60 Nov 30, 2021 09:46 AM [facility] CBC Specim en Type: BLOOD No comment enter ed. Ordering Provid er: ANGIE MALHOTRA Report Released Date/Time: Nov 29, 2021 08:12 PM Reporting Lab: [facility] [address] [facility] [address] Performing Lab: [facility] [address] [facility] [address] WBC 10.61 10*3/uL 4.0-11.0 RBC 4.33 10*6/uL L 4.6-6.2 HGB 14.6 g/dL 13.5-17.9 HCT 45.2 41-54 MCV 104.4 fL H 80-100 MCH 33.7 pg H 27-33 MCHC 32.3 g/dL 32.0-37.5 PLT 71 10*3/uL L 150-400 MPV 13.9 fL H 7.4-10.4 RDW 14.7 H 11.5-14.5 IPF 17.8 H 0-10 Nov 30, 2021 06:09 [facility] FINGERSTICK GLUCOSE Speci men Type: BLOOD AM Comment: [place] Nurse Notified Ordering Provid er: TEAM,CARDS TWO Report Released Date/Time: Nov 30, 2021 06:32 AM Reporting Lab: [facility] [address] [facility] [address] Performing Lab: [facility] [address] [facility] [address] FINGERSTICK GLUCOSE 165 mg/dL H 70-100 Nov 29, 2021 07:35 [facility] FINGERSTICK GLUCOSE Speci men Type: BLOOD PM Comment: [place] Nurse Notified Ordering Provid er: GRANTCARDS TWO Report Released Date/Time: Nov 29, 2021 07:48 PM Reporting Lab: [facility] [address] [facility] [address] Performing Lab: [facility] [address] [facility] [address] FINGERSTICK GLUCOSE 160 mg/dL H 70-100 Nov 29, 2021 06:52 [facility] FINGERSTICK GLUCOSE Speci men Type: BLOOD PM Comment: [place] Nurse Notified Ordering Provid er: SAKSHI CROUCH Report Released Date/Time: Nov 29, 2021 07:04 PM Reporting Lab: [facility] [address] [facility] [address] Performing Lab: [facility] [address] [facility] [address] FINGERSTICK GLUCOSE 161 mg/dL H 70-100 Nov 29, 2021 04:18 [facility] FINGERSTICK GLUCOSE Speci men Type: BLOOD PM No comment enter ed. Ordering Provid er: GRANTCARDS TWO Report Released Date/Time: Nov 29, 2021 08:08 PM Reporting Lab: [facility] [address] [facility] [address] Performing Lab: [facility] [address] [facility] [address] FINGERSTICK GLUCOSE 179 mg/dL H 70-100 Nov 29, 2021 03:26 [facility] POC ABG/ELECTROLYTES Spec imen Type: ARTERIAL BLOOD PM Comment: Sample Type = ARTERIAL Ordering Provid er: TEAMCARDS TWO Report Released Date/Time: Nov 29, 2021 07:53 PM Reporting Lab: [facility] [address] Performing Lab: [facility] [address] POC PH 7.321 L 7.35-7.45 POC PCO2 [...] mg/dL L 4.50-5.30 Nov 29, 2021 03:24 [facility] FINGERSTICK GLUCOSE Speci men Type: BLOOD PM Comment: Save R esult Ordering Provid er: IRENE BURNS Report Released Date/Time: Nov 29, 2021 08:08 PM Reporting Lab: [facility] [address] Performing Lab: [facility] [address] FINGERSTICK GLUCOSE 188 mg/dL H 70-100 Nov 29, 2021 02:06 [facility] POC ABG/ELECTROLYTES Spec imen Type: ARTERIAL BLOOD PM Comment: Sample Type = ARTERIAL Ordering Provid er: IRENE BURNS Report Released Date/Time: Nov 29, 2021 07:53 PM Reporting Lab: [facility] [address] Performing Lab: [facility] [address] POC PH 7.313 L 7.35-7.45 POC PCO2 [...] mg/dL L 4.50-5.30 Nov 29, 2021 02:04 [facility] FINGERSTICK GLUCOSE Speci men Type: BLOOD PM Comment: Save R esult Ordering Provid er: IRENE BURNS Report Released Date/Time: Nov 29, 2021 08:08 PM Reporting Lab: [facility] [address] [facility] [address] Performing Lab: [facility] [address] [facility] [address] FINGERSTICK GLUCOSE 236 mg/dL H 70-100 Nov 29, 2021 01:52 PM [facility] POC ACT Specim en Type: BLOOD No comment enter ed. Ordering Provid er: IRENE BURNS Report Released Date/Time: Dec 03, 2021 01:31 PM Reporting Lab: [facility] [address] [facility] [address] Performing Lab: [facility] [address] [facility] [address] POC ACT 135 s 84-139 Nov 29, 2021 01:16 PM [facility] POC ACT Specim en Type: BLOOD No comment enter ed. Ordering Provid er: IRENE BURNS Report Released Date/Time: Dec 03, 2021 01:30 PM Reporting Lab: [facility] [address] [facility] [address] Performing Lab: [facility] [address] [facility] [address] POC ACT 355 s 84-139 Nov 29, 2021 12:49 PM [facility] POC ACT Specim en Type: BLOOD No comment enter ed. Ordering Provid er: IRENE BURNS Report Released Date/Time: Dec 03, 2021 01:30 PM Reporting Lab: [facility] [address] [facility] [address] Performing Lab: [facility] [address] [facility] [address] POC ACT 367 s 84-139 Nov 29, 2021 12:48 [facility] POC ABG/ELECTROLYTES Spec imen Type: ARTERIAL BLOOD PM Comment: Sample Type = ARTERIAL Ordering Provid er: IRENE BURNS Report Released Date/Time: Nov 29, 2021 07:53 PM Reporting Lab: [facility] [address] [facility] [address] Performing Lab: [facility] [address] [facility] [address] POC PH 7.289 L 7.35-7.45 POC PCO2 [...] 4.7 mg/dL 4.50-5.30 Nov 29, 2021 12:45 [facility] FINGERSTICK GLUCOSE Speci men Type: BLOOD PM Comment: [place] Ordering Provid er: IRENE BURNS TWO Report Released Date/Time: Nov 29, 2021 08:08 PM Reporting [facility] [address] Performing [facility]: [facility] [address] FINGERSTICK GLUCOSE 186 mg/dL H 70-100 Nov 29, 2021 12:26 PM [facility] POC ACT Specim en Type: BLOOD No comment enter ed. Ordering Provid er: IRENE BURNS Report Released Date/Time: Dec 03, 2021 01:30 PM Reporting Lab: [facility] [address] [facility] [address] Performing Lab: [facility] [address] [facility] [address] POC ACT 367 s 84-139 Nov 29, 2021 11:58 AM [facility] POC ACT Specim en Type: BLOOD No comment enter ed. Ordering Provid er: IRENE BURNS Report Released Date/Time: Dec 03, 2021 01:30 PM Reporting Lab: [facility] [address] [facility] [address] Performing Lab: [facility] [address] [facility] [address] POC ACT 338 s 84-139 Nov 29, 2021 11:53 [facility] FINGERSTICK GLUCOSE Speci men Type: BLOOD AM Comment: Save R esult Ordering Provid er: IRENE BURNS TWO Report Released Date/Time: Nov 29, 2021 08:08 PM Reporting Lab: [facility] [address] Performing Lab: [facility] [address] FINGERSTICK GLUCOSE 225 mg/dL H 70-100 Nov 29, 2021 11:30 AM [facility] POC ACT Specim en Type: BLOOD No comment enter ed. Ordering Provid er: IRENE BURNS TWO Report Released Date/Time: Dec 03, 2021 01:30 PM Reporting Lab: [facility] [address] Performing Lab: [facility] [address] POC ACT 355 s 84-139 Nov 29, 2021 11:26 [facility] POC ABG/ELECTROLYTES Spec imen Type: ARTERIAL BLOOD AM Comment: Sample Type = ARTERIAL Ordering Provid er: IRENE BURNS TWO Report Released Date/Time: Nov 29, 2021 07:53 PM Reporting Lab: [facility] [address] Performing Lab: [facility] [address] POC PH 7.317 L 7.35-7.45 POC PCO2 [...] 4.8 mg/dL 4.50-5.30 Nov 29, 2021 11:06 [facility] FINGERSTICK GLUCOSE Speci men Type: BLOOD AM No comment enter ed. Ordering Provid er: IRENE BURNS TWO Report Released Date/Time: Nov 29, 2021 08:08 PM Reporting Lab: [facility] [address] Performing Lab: [facility] [place] [address] FINGERSTICK GLUCOSE 221 mg/dL H 70-100 Nov 29, 2021 11:02 AM [facility] POC ACT Specim en Type: BLOOD No comment enter ed. Ordering Provid er: IRENE BURNS Report Released Date/Time: Dec 03, 2021 01:30 PM Reporting Lab: [facility] [address] [facility] [address] Performing Lab: [facility] [address] [facility] [address] POC ACT 294 s 84-139 Nov 29, 2021 10:26 AM [facility] POC ACT Specim en Type: BLOOD No comment enter ed. Ordering Provid er: IRENE BURNS Report Released Date/Time: Dec 03, 2021 01:30 PM Reporting Lab: [facility] [address] [facility] [address] Performing Lab: [facility] [address] [facility] [address] POC ACT 329 s 84-139 Nov 29, 2021 10:06 AM [facility] POC ACT Specim en Type: BLOOD No comment enter ed. Ordering Provid er: IRENE BURNS Report Released Date/Time: Dec 03, 2021 01:30 PM Reporting Lab: [facility] [address] [facility] [address] Performing Lab: [facility] [address] [facility] [address] POC ACT 312 s 84-139 Nov 29, 2021 09:58 [facility] POC ABG/ELECTROLYTES Spec imen Type: ARTERIAL BLOOD AM Comment: Sample Type = ARTERIAL Ordering Provid er: IRENE BURNS Report Released Date/Time: Nov 29, 2021 07:53 PM Reporting Lab: [facility] [address] [facility] [address] Performing Lab: [facility] [address] [facility] [address] POC PH 7.334 L 7.35-7.45 POC PCO2 [...] 4.9 mg/dL 4.50-5.30 Nov 29, 2021 09:56 [facility] FINGERSTICK GLUCOSE Speci men Type: BLOOD AM No comment enter ed. Ordering Provid er: IRENE BURNS Report Released Date/Time: Nov 29, 2021 08:08 PM Reporting Lab: [facility] [address] [facility] [address] Performing Lab: [facility] [address] [address] FINGERSTICK GLUCOSE 194 mg/dL H 70-100 Nov 29, 2021 09:45 AM [facility] POC ACT Specim en Type: BLOOD No comment enter ed. Ordering Provid er: IRENE BURNS Report Released Date/Time: Dec 03, 2021 01:30 PM Reporting [facility] [address] Performing Lab: [facility] [address] POC ACT 269 s 84-139 Nov 29, 2021 08:59 AM [facility] POC ACT Specim en Type: BLOOD No comment enter ed. Ordering Provid er: IRENE BURNS Report Released Date/Time: Dec 03, 2021 01:30 PM Reporting Lab: [facility] [address] [facility] [address] Performing Lab: [facility] [address] [facility] [address] POC ACT 135 s 84-139 Nov 29, 2021 [facility] COVID-19 AND FLU/RSV Specime n Type: NASOPHARYNGEAL 07:05 AM DIAG PANEL(CEPHEID) Comment: Ce pheid GeneXpert (618) Ordering Provid er: KATHERINE FIGUEROA Report Released Date/Time: Oct 29, 2021 12:22 PM Reporting Lab: [facility] [address] [facility] [address] Performing Lab: [facility] [address] COVID-19 (CEPHEID) Not Detected Not Dete cted INFLUENZA A (PCR) Not Detected Not Detec susanne INFLUENZA B (PCR) Not Detected Not Detec susanne RSV (PCR) Not Detected Not Detected Nov 29, 2021 [facility] BASIC METABOLIC Specimen Typ e: PLASMA 06:38 AM PANEL+MG No comment enter ed. Ordering Provid er: KATHERINE FIGUEROA Report Released Date/Time: Oct 29, 2021 12:22 PM Reporting Lab: [facility] [address] Performing Lab: [facility] [address] CREATININE 1.4 mg/dL H 0.7-1.2 UREA NITROGEN 23 mg/dL 8-26 GLUCOSE 201 mg/dL H 74-100 SODIUM 143 mmol/L 136-145 POTASSIUM 4.3 mmol/L 3.5-5.1 CHLORIDE 108 mmol/L H 98-107 CO2 28 mmol/L 22-29 CALCIUM 9.9 mg/dL 8.4-10.2 MAGNESIUM 1.9 mg/dL 1.6-2.6 ANION GAP 7 mmol/L 5-15 CREAT EGFR(CKD-EPI) 53 L >60 Nov 29, 2021 06:38 [facility] CBC Specimen Type: BLOOD AM No comment enter ed. Ordering Provid er: KATHERINE FIGUEROA Report Released Date/Time: Oct 29, 2021 12:22 PM Reporting Lab: [facility] [address] Performing Lab: [facility] [address] WBC 7.40 10*3/uL 4.0-11.0 RBC 5.17 10*6/uL 4.6-6.2 HGB 17.6 g/dL 13.5-17.9 HCT 52.7 41-54 MCV 101.9 fL H 80-100 MCH 34.0 pg H 27-33 MCHC 33.4 g/dL 32.0-37.5 PLT 88 10*3/uL L 150-400 MPV 14.3 fL H 7.4-10.4 RDW 14.4 11.5-14.5 IPF 18.0 H 0-10 Nov 29, 2021 [facility] PROTHROMBIN Specimen Typ e: PLASMA 06:38 AM TIME/INR No comment enter ed. Ordering Provid er: KATHERINE FIGUEROA Report Released Date/Time: Oct 29, 2021 12:22 PM Reporting Lab: [facility] [address] [facility] [address] Performing Lab: [facility] [address] [facility] [address] .INR 1.1 0.8-1.1 .PT 13.1 s H 9.4-12.5 Nov 29, 2021 [facility] ACT PART Specimen Ty pe: PLASMA 06:38 AM THROMBO TIME No comment enter ed. Ordering Provid er: KATHERINE FIGUEROA Report Released Date/Time: Oct 29, 2021 12:22 PM Reporting Lab: [facility] [address] [facility] [address] Performing Lab: [facility] [address] [facility] [address] APTT 33.3 s 25.1-36.5 Vital Signs: All taken on the encounter date This section contains inpatient and outpatient Vital Signs collected on the date of the Encounter. Date/Time Temperature Pulse Blood Respiratory SP02 Pain Height Weight Axel dy Source Pressure Rate Mass Index Nov 29.3 F 96 99/66 18 /min 90 % 0 [place] 2021 11:07 /min mm[Hg] [facility] Nov 29 96 % [place] 2021 08:40 /min [facility] Nov 29, 232 lb 30 [place] 2021 08:38 [facility] [place] Nov 29 112/73 97 % [place] 2021 08:35 /min mm[Hg] [facility] Nov 29, 113/69 90 % [place] 2021 08:15 /min mm[Hg] [facility] [place] Social History: Smoking Status (Most current) and [...] Comment Facility Nov 29, 2021 08:36 PM [place] TOBACCO USE CURRENT NRT [facility] ACCEPT Tobacco Use History This section includes a history of the smoking, or tobacco- related health factors, that were collected on or before the date of the Encounter. The data comes from the [place] facility where the Encounter took place. Date/Time Smoking Status/Tobacco Use Comment Nicola matta Mar 20, 2021 11:21 AM [facility] TOBACCO USE CURRENT NRT [facility] DECLINE Nov 15, 2020 10:00 AM VA-TOBACCO DOESNT USE WI 30 MIN [facility] WAKEUP Nov 15, 2020 10:00 AM VA-TOBACCO USE 30 YEARS OR MORE [facility] Nov 15, 2020 10:00 AM [place]-TOBACCO USE ADVICE [place] [facility] Nov 15, 2020 10:00 AM VA-TOBACCO USE LICENSED MORTICIAN NO [facility] Nov 15, 2020 10:00 AM VA-TOBACCO USE MED NO [place] [facility] Nov 15, 2020 10:00 AM VA-TOBACCO USER EVERY DAY [facility] Jun 21, 2019 02:29 PM VA-TOBACCO USE 30 YEARS OR MORE [facility] Jun 21, 2019 02:29 PM VA-TOBACCO USE ADVICE [place] [facility] Jun 21, 2019 02:29 PM VA-TOBACCO USE LICENSED MORTICIAN NO [facility] Jun 21, 2019 02:29 PM VA-TOBACCO USE MED NO [place] [facility] Jun 21, 2019 02:29 PM VA-TOBACCO USE WI 30 MIN OF WAKEUP [facility] Jun 21, 2019 02:29 PM VA-TOBACCO USER EVERY DAY [facility] Jun 09, 2018 03:48 PM VA-TOBACCO USE 30 YEARS OR MORE [facility] Jun 09, 2018 03:48 PM VA-TOBACCO USE ADVICE [place] [facility] Jun 09, 2018 03:48 PM VA-TOBACCO USE LICENSED MORTICIAN NO [facility] Jun 09, 2018 03:48 PM VA-TOBACCO USE MED NO [place] [facility] Jun 09, 2018 03:48 PM VA-TOBACCO USE [place] 30 MIN OF WAKEUP [facility] Jun 09, 2018 03:48 PM VA-TOBACCO USER EVERY DAY [facility] Jun 20, 2017 07:53 AM CURRENT TOBACCO USER [facility] Jun 19, 2016 08:41 AM CURRENT TOBACCO USER [facility] Jun 21, 2015 08:15 AM CURRENT TOBACCO USER [facility] Mar 22, 2014 10:03 AM CURRENT TOBACCO USER [facility] Mar 25, 2013 11:01 AM CURRENT TOBACCO USER [facility] Feb 05, 2012 08:55 AM CURRENT TOBACCO USER [facility] January 01, 2011 09:26 AM CURRENT TOBACCO USER [facility] Mar 07, 2010 10:02 AM CURRENT TOBACCO USER [facility] Feb 21, 2009 08:17 AM CURRENT TOBACCO USER [facility] Nov 06, 2007 10:02 AM CURRENT TOBACCO USER [facility] January 02, 2007 10:33 AM CURRENT TOBACCO USER [facility] Advance Directives: All historical and [...] Mar 06, 2005 ADVANCE DIRECTIVE GANESH RODRIGUEZ [facility] Radiology Reports: +/- 30 days of the [...] 2 VIEWS PA AND LAT: MONET LUDWIG [facility] [place] [id number] -[birth year] M Exm Date: NOV 30, 2021@07:05 Req Phys: CHERRY MENDOZA Loc: 3LSOB/ 2@08:05 Img Loc: MAIN X-RAY Service: zzcard sect (Case [id number] COMPLETE) CHEST 2 VIEWS PA AND LAT (R AD Detailed) CPT:36646 Reason for Study: s/p upgrade ICD adding an A l ead Clinical History: Post ICD or Pacemaker: Verify Lead Placement. [place] IS NOT under investigation for COVID-19 or is COVID-19 negative s/p upgrade ICD adding an A lead Responsible pr ovider name and phone number to notify for critical findings if other than user placing the order and pager listed below: User placing orders pager: [phone] LAST CREATININE 1.4 H (11/29/21) Report Status: Verified Date Reported: NOV 30, 2021 Date Verified: NOV 30, 2021 Predictive Maintenance Technician E-Sig:/HOLLIE/MONET LUDWIG MD, FACR, C CD Report: [...] 06:25 PM CHEST 1 VIEW: MAGDALENE DAVIDSON [facility] [place] [id number] -[birth year] 9 M Exm Date: NOV 29, 2021@18:25 Req Phys: CHERRY MENDOZA Pat Loc: [facility] [address] [facility] (Req'g Loc) Img Loc: MAIN X-RAY Service: Unknown (Case [id number] COMPLETE) CHEST 1 VIEW (RAD Detailed) CPT:94214 Reason for Study: s/p upgrade ICD adding an A l ead Clinical History: Immediate Post-Op Pacemaker/ICD placement [place] IS NOT under investigation for COVID-19 or is COVID-19 negative s/p upgrade his ICD to dual chamber (adding an A lead) Responsible provider name and phone number to n otify for critical findings if other than user placing the order a nd pager listed below: User placing orders pager: [phone] LAST CREATININE 1.4 H (11/29/21) Report Status: Verified Date Reported: NOV 29, 2021 Date Verified: NOV 29, 2021 Predictive Maintenance Technician E-Sig:/[email or web address]/[email or web address] DAVIDSON MD Report: DATE/TIME REGISTERED: 11/29/2021 [...] Primary Interpreting Staff: MAGDALENE DAVIDSON MD, RADIOLOGIST (Predictive Maintenance Technician) /LUAN Encounter Notes: All associated encounter notes This section contains the clinical notes associated to the Encounter. Date/Time Encounter Note(s) Provider Source Nov 29, 2021 01:00 AM CRITICAL CARE UNIT NOTE: FLORENCIO RIOS [facility] LOCAL TITLE: ICCA RESPIRATORY THERAPY FLOWSHEET STANDARD TITLE: CRITICAL CARE UNIT NOTE DATE OF NOTE: NOV 29, 2021@01:00 ENTRY DATE: NOV 30, 2021@15:11:01 AUTHOR: FLORENCIO RIOS EXP COSIGNER: URGENCY: STATUS: COMPLETED This is a place pyle only. Please see VISTA Im aging to view document. /es/ FLORENCIO SYSTEM ICU DOCUMENT IMPORT Signed: 11/30/2021 15:11
--- OUTSIDE RECORDS SUMMARY | 2022-04-02 16:13 | XMS_ITS | Encounter Summary ---
:1945 Author Organization [facility] Address [address] [place] [address] Care Team Providers Name Role Phone SAKSHI [...] MEDICARE MEDICARE PART Jun 25, PART B [id number] Saumya QUINONES PATIENT (WNR) (M) B 2011 78A 0 AVID MEDICARE MEDICARE PART Sep 25, PART A [id number] Saumya QUINONES PATIENT (WNR) (M) A 2009 78A 0 AVID MEDICARE MEDICARE PART Sep 25, PART A [id number] Saumya MICHELE ATTHOMAS (WNR) (M) A 2009 78A [id number] AVID MEDICARE MEDICARE PART Sep 25, PART B [id number] Saumya MICHELE ATIENT (WNR) (M) B 2009 78A [phone] AVID Selected Encounter This section includes the information on record at ME for the Encounter. Date/Time Encounter Type Encounter Description Reason Provider Source Nov 29, 2021 05:15 Outpatient Encounter ADMIN PAT ACTIVTIES PM (MASSRIDEVICT) IHE Encounter Template Text not used by ME Plan of Treatment: Future Appointments (+ 6 months) and Future Tests (+/- 45 days) The Plan of Treatment section includes future care activities for the patient from all ME treatmentfapending [facility] to [facility]. This section includes future appointments and future orders which are active, pending orscheduled.Future Appointments This section includes appointments that were scheduled to occur 6 months from the date of the Encounter, up to a maximum of 20 appointments. The data comes from all ME treatment [facility]. Appointment Date/Time Appointment Type Appointment Facili ty Name Dec 21, 2021 09:30 AM AMBULATORY - NONE [facility] January 07, 2022 01:30 PM AMBULATORY - MEDICINE [facility] Feb 05, 2022 07:00 AM AMBULATORY - NONE [facility] Feb 07, 2022 09:30 AM AMBULATORY - NONE [facility] Feb 13, 2022 10:00 AM AMBULATORY [facility] Mar 21, 2022 09:30 AM AMBULATORY [facility] Active, Pending, and Scheduled Orders This [...] AM Laboratory - Chemistry BASIC METABOLIC MIN [facility] Order PANEL+MG PLASMA SP Lab Results: +/- 30 days of the encounter This section includes the Chemistry and Hematology Lab Results on record with ME for the patient. Radiology Reports and Pathology [...] 2021 11:46 AM Reporting Lab: [facility] [address] Performing Lab: [facility] [address] FINGERSTICK GLUCOSE 284 mg/dL H 70-100 Nov 30, 2021 09:47 AM [facility] ALBUMIN Specim en Type: PLASMA No comment enter ed. Ordering Provid er: ELIUD DINERO Report Released Date/Time: Nov 29, 2021 07:53 PM Reporting Lab: [facility] [address] [facility] [address] Performing Lab: [facility] [address] [facility] [address] ALBUMIN 3.4 g/dL L 3.5-5.2 Nov 30, 2021 09:47 [facility] BASIC METABOLIC Specimen Type: PLASMA AM PANEL+MG No comment enter ed. Ordering Provid er: ANGIE MALHOTRA Report Released Date/Time: Nov 29, 2021 08:12 PM Reporting Lab: [facility] [address] [facility] [address] Performing Lab: [facility] [address] [facility] [address] CREATININE 1.2 mg/dL 0.7-1.2 UREA NITROGEN 18 [...] comment enter ed. Ordering Provid er: ANGIE AMLHOTRA Report Released Date/Time: Nov 29, 2021 08:12 PM Reporting Lab: [facility] [address] [facility] [address] Performing Lab: [facility] [address] [facility] [address] WBC 10.61 10*3/uL 4.0-11.0 RBC 4.33 10*6/uL [...] Lab: [facility] [address] [facility] [address] Performing Lab: [facility] [address] [facility] [address] FINGERSTICK GLUCOSE 165 mg/dL H 70-100 Nov 29, 2021 07:35 [facility] FINGERSTICK GLUCOSE Speci men Type: BLOOD PM Comment: [place] Nurse Notified Ordering Provid er: IRENE BURNS TWO Report Released Date/Time: Nov 29, 2021 07:48 PM [facility] [address] Performing Lab: [facility] [address] [facility] [address] FINGERSTICK GLUCOSE 160 mg/dL H 70-100 Nov 29, 2021 06:52 [facility] FINGERSTICK GLUCOSE Speci men Type: BLOOD PM Comment: [place] Nurse Notified Ordering Provid er: SAKSHI CROUCH Report Released Date/Time: Nov 29, 2021 07:04 PM Reporting Lab: [facility] [address] [facility] [address] Performing Lab: [facility] [address] [facility] [address] FINGERSTICK GLUCOSE 161 mg/dL H 70-100 Nov 29, 2021 04:18 [facility] FINGERSTICK GLUCOSE Speci men Type: BLOOD PM No comment enter ed. Ordering Provid er: IRENE BURNS TWO Report Released Date/Time: Nov 29, 2021 08:08 PM Reporting Lab: [facility] [address] [facility] [address] [facility]: [facility] [address] FINGERSTICK GLUCOSE 179 mg/dL H 70-100 Nov 29, 2021 03:26 [facility] POC ABG/ELECTROLYTES Spec imen Type: ARTERIAL BLOOD PM Comment: Sample Type = ARTERIAL Ordering Provid er: IRENE BURNS TWO Report Released Date/Time: Nov 29, 2021 07:53 PM Reporting Lab: [facility] [address] Performing Lab: [facility] [address] POC PH 7.321 L 7.35-7.45 POC PCO2 [...] 2021 08:08 PM Reporting Lab: [facility] [address] Performing Lab: [facility] [address] FINGERSTICK GLUCOSE 188 mg/dL H 70-100 Nov 29, 2021 02:06 [facility] POC ABG/ELECTROLYTES Spec imen Type: ARTERIAL BLOOD PM Comment: Sample Type = ARTERIAL Ordering Provid er: IRENE BURNS TWO Report Released Date/Time: Nov 29, 2021 07:53 PM Reporting Lab: [facility] [address] Performing Lab: [facility] [address] POC PH 7.313 L 7.35-7.45 POC PCO2 [...] [facility] [address] [facility] [address] Performing Lab: [facility] [address] [facility] [address] FINGERSTICK GLUCOSE 236 mg/dL H 70-100 Nov 29, 2021 01:52 PM [facility] POC ACT Specim en Type: BLOOD No comment enter ed. Ordering Provid er: IRENE BURNS Report Released Date/Time: Dec 03, 2021 01:31 PM Reporting Lab: [facility] [address] [facility] [address] Performing Lab: [facility] [address] [facility] [address] POC ACT 135 s 84-139 Nov 29, 2021 01:16 PM [facility] POC ACT Specim en Type: BLOOD No comment enter ed. Ordering Provid er: IRENE BURNS Report Released Date/Time: Dec 03, 2021 01:30 PM Reporting Lab: [facility] [address] [facility] [address] Performing Lab: [facility] [address] [facility] [address] POC ACT 355 s 84-139 Nov 29, 2021 12:49 PM [facility] POC ACT Specim en Type: BLOOD No comment enter ed. Ordering Provid er: IRENE BURNS Report Released Date/Time: Dec 03, 2021 01:30 PM Reporting Lab: [facility] [address] [facility] [address] Performing Lab: [facility] [address] [facility] [address] POC ACT 367 s 84-139 Nov 29, 2021 12:48 [facility] POC ABG/ELECTROLYTES Spec imen Type: ARTERIAL BLOOD PM Comment: Sample Type = ARTERIAL Ordering Provid er: IRENE BURNS Report Released Date/Time: Nov 29, 2021 07:53 PM Reporting Lab: [facility] [address] [facility] [address] Performing Lab: [facility] [address] [facility] [address] POC PH 7.289 L 7.35-7.45 POC PCO2 [...] Lab: [facility] [address] [facility] [address] Performing Lab: [facility] [address] FINGERSTICK GLUCOSE 186 mg/dL H 70-100 Nov 29, 2021 12:26 PM [facility] POC ACT Specim en Type: BLOOD No comment enter ed. Ordering Provid er: IRENE BURNS Report Released Date/Time: Dec 03, 2021 01:30 PM Reporting [facility]: [facility] [address] Performing Lab: [facility] [address] [facility] [address] POC ACT 367 s 84-139 Nov 29, 2021 11:58 AM [facility] POC ACT Specim en Type: BLOOD No comment enter ed. Ordering Provid er: IRENE BURNS TWO Report Released Date/Time: Dec 03, 2021 01:30 PM Reporting Lab: [facility] [address] [facility] [address] Performing Lab: [facility] [address] POC ACT 338 s 84-139 Nov 29, 2021 11:53 [facility] FINGERSTICK GLUCOSE Speci men Type: BLOOD AM Comment: Save R esult Ordering Provid er: IRENE BURNS TWO Report Released Date/Time: Nov 29, 2021 08:08 PM Reporting Lab: [facility] [facility] [address] Performing Lab: [facility] [address] FINGERSTICK GLUCOSE 225 mg/dL H 70-100 Nov 29, 2021 11:30 AM [facility] POC ACT Specim en Type: BLOOD No comment enter ed. Ordering Provid er: IRENE BURNS TWO Report Released Date/Time: Dec 03, 2021 01:30 PM Reporting Lab: [facility] [address] Performing Lab: [facility] [address] POC ACT 355 s 84-139 Nov 29, 2021 11:26 [facility] POC ABG/ELECTROLYTES Spec imen Type: ARTERIAL BLOOD AM Comment: Sample Type = ARTERIAL Ordering Provid er: IRENE BURNS TWO Report Released Date/Time: Nov 29, 2021 07:53 PM Reporting Lab: [facility] [address] Performing Lab: [facility] [address] POC PH 7.317 L 7.35-7.45 POC PCO2 [...] 2021 08:08 PM Reporting Lab: [facility] [address] Performing Lab: [facility] [address] FINGERSTICK GLUCOSE 221 mg/dL H 70-100 Nov 29, 2021 11:02 AM [facility] POC ACT Specim en Type: BLOOD No comment enter ed. Ordering Provid er: IRENE BURNS Report Released Date/Time: Dec 03, 2021 01:30 PM Reporting Lab: [facility] [address] [facility] [address] Performing Lab: [facility] [address] [address] [facility] [address] POC ACT 294 s 84-139 Nov 29, 2021 10:26 AM [facility] POC ACT Specim en Type: BLOOD No comment enter ed. Ordering Provid er: IRENE BURNS Report Released Date/Time: Dec 03, 2021 01:30 PM Reporting Lab: [facility] [address] [facility] [address] Performing Lab: [facility] [address] [facility] [address] POC ACT 329 s 84-139 Nov 29, 2021 10:06 AM [facility] POC ACT Specim en Type: BLOOD No comment enter ed. Ordering Provid er: IRENE BURNS Report Released Date/Time: Dec 03, 2021 01:30 PM Reporting Lab: [facility] [address] [facility] [address] Performing Lab: [facility] [address] [facility] [address] POC ACT 312 s 84-139 Nov 29, 2021 09:58 [facility] POC ABG/ELECTROLYTES Spec imen Type: ARTERIAL BLOOD AM Comment: Sample Type = ARTERIAL Ordering Provid er: IRENE BURNS Report Released Date/Time: Nov 29, 2021 07:53 PM Reporting Lab: [facility] [address] [facility] [address] Performing Lab: [facility] [address] [facility] [address] POC PH 7.334 L 7.35-7.45 POC PCO2 [...] [facility] [address] [facility] [address] Performing Lab: [facility] [address] [facility] [address] FINGERSTICK GLUCOSE 194 mg/dL H 70-100 Nov 29, 2021 09:45 AM [facility] POC ACT Specim en Type: BLOOD No comment enter ed. Ordering Provid er: IRENE BURNS Report Released Date/Time: Dec 03, 2021 01:30 PM Reporting Lab: [facility] [address] [facility] [address] Performing Lab: [facility] [address] [facility] [address] POC ACT 269 s 84-139 Nov 29, 2021 08:59 AM [facility] POC ACT Specim en Type: BLOOD No comment enter ed. Ordering Provid er: IRENE BURNS Report Released Date/Time: Dec 03, 2021 01:30 PM Reporting Lab: [facility] [address] [facility] [address] Performing Lab: [facility] [address] [facility] [address] POC ACT 135 s 84-139 Nov 29, 2021 [facility] COVID-19 AND FLU/RSV Specime n Type: NASOPHARYNGEAL 07:05 AM DIAG PANEL(CEPHEID) Comment: Ce pheid GeneXpert (618) Ordering Provid er: KATHERINE FIGUEROA Report Released Date/Time: Oct 29, 2021 12:22 PM Reporting Lab: [facility] [address] [facility] [address] Performing Lab: [facility] [address] [facility] [address] COVID-19 (CEPHEID) Not Detected Not Dete cted [...] Reporting Lab: [facility] [address] [facility] [address] Performing Lab: [facility] [address] CREATININE 1.4 mg/dL H 0.7-1.2 UREA NITROGEN [...] 2021 12:22 PM Reporting Lab: [facility] [address] Performing Lab: [facility] [address] WBC 7.40 10*3/uL 4.0-11.0 RBC 5.17 10*6/uL [...] 2021 12:22 PM Reporting Lab: [facility] [address] Performing Lab: [facility] [address] [facility] [address] .INR 1.1 0.8-1.1 .PT 13.1 s H 9.4-12.5 Nov 29, 2021 [facility] ACT PART Specimen Typ e: PLASMA 06:38 AM THROMBO TIME No comment enter ed. Ordering Provid er: KATHERINE FIGUEROA Report Released Date/Time: Oct 29, 2021 12:22 PM Reporting Lab: [facility] [address] [facility] [address] Performing Lab: [facility] [address] [facility] [address] APTT 33.3 s 25.1-36.5 Vital Signs: All taken on the encounter date This section contains inpatient and outpatient Vital Signs collected on the date of the Encounter. Date/Time Temperature Pulse Blood Respiratory SP02 Pain Height Weight Axel dy Source Pressure Rate Mass Index Nov 29, 98.3 F 96 99/66 18 /min 90 % 0 [place] 2021 11:07 /min mm[Hg] [facility] Nov 29 96 % [place] 2021 08:40 /min [facility] Nov 29, 232 lb 30 [place] 2021 08:38 [facility] Nov 29 112/73 97 % [place] 2021 08:35 /min mm[Hg] [facility] Nov 29 113/69 90 % [place] 2021 08:15 /min mm[Hg] [facility] Social History: Smoking Status (Most current) and Tobacco Use (All prior to encounter date) This section includes the most current, and the historical, smoking and tobacco-related health factors from the ME facility where the Encounter took place.Current Smoking Status This section includes the most current smoking, or tobacco-related health factor, from the ME facility where the Encounter took place. Date/Time Current Smoking Status Comment Facility Nov 29, 2021 08:36 PM ME-VAAES TOBACCO USE CURRENT NRT [facility] ACCEPT Tobacco Use History This section includes a history of the smoking, or tobacco- related health factors, that were collected on or before the date of the Encounter. The data comes from the ME facility where the Encounter took place. Date/Time Smoking Status/Tobacco Use Comment Nicola matta Mar 20, 2021 11:21 AM VA-[facility] TOBACCO USE CURRENT NRT [facility] DECLINE Nov 15, 2020 10:00 AM VA-TOBACCO DOESNT USE WI 30 MIN [facility] WAKEUP Nov 15, 2020 10:00 AM VA-TOBACCO USE 30 YEARS OR MORE [facility] Nov 15, 2020 10:00 AM VA-TOBACCO USE ADVICE [place] [facility] [facility] Nov 15, 2020 10:00 AM VA-TOBACCO USE SOLE STAINER NO [facility] Nov 15, 2020 10:00 AM VA-TOBACCO USE MED NO [place] [facility] Nov 15, 2020 10:00 AM VA-TOBACCO USER EVERY DAY [facility] Jun 21, 2019 02:29 PM VA-TOBACCO USE 30 YEARS OR MORE [facility] Jun 21, 2019 02:29 PM [facility]BACCO [facility] Jun 21, 2019 02:29 PM VA-TOBACCO USE SOLE STAINER NO [facility] Jun 21, 2019 02:29 PM VA-TOBACCO USE MED NO [place] [facility] Jun 21, 2019 02:29 PM VA-TOBACCO USE WI 30 MIN OF WAKEUP [facility] Jun 21, 2019 02:29 PM VA-TOBACCO USER EVERY DAY [facility] Jun 09, 2018 03:48 PM VA-TOBACCO USE 30 YEARS OR MORE [facility] Jun 09, 2018 03:48 PM VA-TOBACCO USE ADVICE [place] [facility] Jun 09, 2018 03:48 PM VA-TOBACCO USE SOLE STAINER NO [facility] Jun 09, 2018 03:48 PM VA-TOBACCO USE MED NO [place] [facility] Jun 09, 2018 03:48 PM VA-TOBACCO USE WI 30 MIN OF WAKEUP [facility] Jun 09, 2018 03:48 PM VA-TOBACCO USER EVERY DAY [facility] Jun 20, 2017 07:53 AM CURRENT TOBACCO USER [facility] Jun 19, 2016 08:41 AM CURRENT TOBACCO USER [facility] Jun 21, 2015 08:15 AM CURRENT TOBACCO USER [facility] Mar 22, 2014 10:03 AM CURRENT TOBACCO USER [facility] Mar 25, 2013 11:01 AM CURRENT TOBACCO USER [facility] Feb 05, 2012 08:55 AM CURRENT TOBACCO USER [facility] January 01, 2011 09:26 AM CURRENT TOBACCO USER [facility] Mar 07, 2010 10:02 AM CURRENT TOBACCO USER [facility] Feb 21, 2009 08:17 AM CURRENT TOBACCO US[facility] Nov 06, 2007 10:02 AM [address]RENT TOBACCO US[facility] January 02, 2007 10:33 AM CURRENT TOBACCO US[facility] Advance Directives: All historical and current Section Date Range: From patient's date of to the date document was created. This section includes ALL of a patient's completed or amended ME Advance and Rescinded Directives. The entries below indicate that a directive exists for the patient, but an actual copy is not included with this document. The data comes from all [facility]. Date Advance Directives Provider Source Mar 06, 2005 ADVANCE DIRECTIVE GANESH RORDIGUEZ [facility] Radiology Reports: +/- 30 [...] the Encounter. The data comes from all [place] treatment facilities. Date/Time Radiology Report Provider Source Nov 30, 2021 07:05 AM CHEST 2 VIEWS PA AND LAT: MONET LUDWIG [facility] PAUL MICHELE [id number] -[birth year] M Exm Date: NOV 30, 2021@07:05 Req Phys: CHERRY MENDOZA Loc: 3LSOB/ 2@08:05 Img Loc: MAIN X-RAY Service: zzcard sect (Case [id number] COMPLETE) CHEST 2 VIEWS PA AND LAT (R AD Detailed) CPT:70405 Reason for Study: s/p upgrade ICD adding an A l ead Clinical History: Post ICD or Pacemaker: Verify Lead Placement. [place] IS NOT under investigation for COVID-19 or is COVID-19 negative s/p upgrade ICD adding an A lead Responsible pr ovider name and phone number to notify for critical findings if other than user placing the order and pager listed below: User placing orders pager: [phone] LAST CREATININE 1.4 H (11/29/21) Report Status: Verified Date Reported: NOV 30, 2021 Date Verified: NOV 30, 2021 Behavioral Therapist E-Sig:/ES/MONET LUDWIG MD, FACR, C CD Report: [...] 06:25 PM CHEST 1 VIEW: MAGDALENE DAVIDSON [facility] PAUL MICHELE [id number] -[birth year] 9 M Exm Date: NOV 29, 2021@18:25 Req Phys: CHERRY MENDOZA Pat Loc: [facility] [address] [facility] (Req'g Loc) Img Loc: MAIN X-RAY Service: Unknown (Case [id number] COMPLETE) CHEST 1 VIEW (RAD Detailed) CPT:74717 Reason for Study: s/p upgrade ICD adding an A l ead Clinical History: Immediate Post-Op Pacemaker/ICD placement [place] IS NOT under investigation for COVID-19 or is COVID-19 negative s/p upgrade his ICD to dual chamber (adding an A lead) Responsible provider name and phone number to n otify for critical findings if other than user placing the order a nd pager listed below: User placing orders pager: [phone] LAST CREATININE 1.4 H (11/29/21) Report Status: Verified Date Reported: NOV 29, 2021 Date Verified: NOV 29, 2021 Behavioral Therapist E-Sig:/[email or web address] DAVIDSON MD Report: DATE/TIME REGISTERED: 11/29/2021 [...] Primary Interpreting Staff: MAGDALENE DAVIDSON MD, RADIOLOGIST (Behavioral Therapist) /LUAN Encounter Notes: All associated encounter notes This section contains the clinical notes associated to the Encounter. Date/Time Encounter Note(s) Provider Source Nov 29, 2021 05:15 PM INTERVENTIONAL CARDIOLOGY PROCEDURE NO TE: GILDA GOVEA [facility] LOCAL TITLE: CARDIAC TEA AND SPICE SUPERVISOR PROCEDURE NOTE STANDARD TITLE: INTERVENTIONAL CARDIOLOGY PROCED URE NOTE DATE OF NOTE: NOV 29, 2021@17:15 ENTRY DATE: DEC 03, 2021@08:37:42 AUTHOR: GILDA GOVEA EXP COSIGNER: URGENCY: STATUS: COMPLETED [facility] - Scanned Document See [facility]. /billy/ GILDA GOVEA VISTA TYPESETTING MACHINE TENDER Signed: 12/03/2021 08:37
--- OUTSIDE RECORDS SUMMARY | 2022-04-02 16:13 | XMS_ITS | Encounter Summary ---
:[address] [facility] Address [address] [place] [id number] Care Team Providers Name Role Phone CROUCH [...] MEDICARE MEDICARE PART Jun 25, PART B [id number] Saumya QUINONES PATIENT (WNR) (M) B 2011 78A 0 AVID MEDICARE MEDICARE PART Sep 25, PART A [id number] Saumya QUINONES PATIENT (WNR) (M) A 2009 78A 0 AVID MEDICARE MEDICARE PART Sep 25, PART A [id number] Saumya MICHELE (WNR) (M) A 2009 [id number] [id number] AVID MEDICARE MEDICARE PART Sep 25, PART B [id number] Saumya MICHELE (WNR) (M) B 2009 [id number] [phone] AVID Selected Encounter This section includes the information on record at [place] for the Encounter. Date/Time Encounter Type Encounter Description Reason Provider Source Nov 29, 2021 07:51 Outpatient Encounter EVENT (HISTORICAL) AM IHE Encounter Template Text not used by [place] Plan of Treatment: Future Appointments (+ 6 months) and Future Tests (+/- 45 days) The Plan of Treatment section includes [facility] care activities [facility] the [facility] This section includes future appointments and [...] 21, 2021 09:30 AM AMBULATORY - NONE [facility] January 07, 2022 01:30 PM AMBULATORY - MEDICINE [facility] Feb 05, 2022 07:00 AM AMBULATORY - [facility] Feb 07, 2022 09:30 AM AMBULATORY - NONE [facility] Feb 13, 2022 10:00 AM AMBULATORY [facility] Mar 21, 2022 09:30 AM AMBULATORY [facility] Active, Pending, and Scheduled Orders This [...] Bank TYPE & SCREEN - LA B [facility] Order BLOOD SP Dec 15, 2021 12:00 AM Laboratory - Chemistry BASIC METABOLIC MIN [facility] Order PANEL+MG PLASMA SP Lab Results: +/- [...] Reference Range Comment Nov 30, 2021 11:26 [facility] FINGERSTICK GLUCOSE Speci men Type: BLOOD AM Comment: [place] Nurse Notified Ordering Provid er: TEAM,CARDS TWO Report Released Date/Time: Nov 30, 2021 11:46 AM Reporting Lab: [facility] [address] Performing Lab: [facility] [address] FINGERSTICK GLUCOSE 284 mg/dL H 70-100 Nov 30, 2021 09:47 AM [facility] ALBUMIN Specim en Type: PLASMA No comment enter ed. Ordering Provid er: ELIUD DINERO Report Released Date/Time: Nov 29, 2021 07:53 PM Reporting Lab: [facility] [address] [facility] [address] Performing Lab: [facility] [address] ALBUMIN 3.4 g/dL L 3.5-5.2 Nov 30, 2021 09:47 [facility] BASIC METABOLIC Specimen Type: PLASMA AM PANEL+MG No comment enter ed. Ordering Provid er: ANGIE MALHOTRA Report Released Date/Time: Nov 29, 2021 08:12 PM Reporting Lab: [facility] [address] Performing Lab: [facility] [address] CREATININE 1.2 mg/dL 0.7-1.2 UREA NITROGEN 18 mg/dL 8-26 GLUCOSE 342 mg/dL H 74-100 SODIUM 141 mmol/L 136-145 POTASSIUM 4.3 mmol/L 3.5-5.1 CHLORIDE 108 mmol/L H 98-107 CO2 26 mmol/L 22-29 CALCIUM 8.6 mg/dL 8.4-10.2 MAGNESIUM 1.5 mg/dL L 1.6-2.6 ANION GAP 7 mmol/L 5-15 CREAT EGFR(CKD-EPI) 63 >60 Nov 30, 2021 09:46 AM [facility] CBC Specim en Type: BLOOD No comment enter ed. Ordering Provid er: ANGIE MALHOTRA Report Released Date/Time: Nov 29, 2021 08:12 PM Reporting Lab: [facility] [address] [facility] [address] Performing Lab: [facility] [facility] [address] WBC 10.61 10*3/uL 4.0-11.0 RBC 4.33 10*6/uL L 4.6-6.2 HGB 14.6 g/dL 13.5-17.9 HCT 45.2 41-54 MCV 104.4 fL H 80-100 MCH 33.7 pg H 27-33 MCHC 32.3 g/dL 32.0-37.5 PLT 71 10*3/uL L 150-400 MPV 13.9 fL H 7.4-10.4 RDW 14.7 H 11.5-14.5 IPF 17.8 H 0-10 Nov 30, 2021 06:09 [facility] FINGERSTICK GLUCOSE Speci men Type: BLOOD AM Comment: [place] Nurse Notified Ordering Provid er: IRENE BURNS Report Released Date/Time: Nov 30, 2021 06:32 AM Reporting Lab: [facility] [address] [facility] [address] Performing Lab: [facility] [address] [facility] [address] FINGERSTICK GLUCOSE 165 mg/dL H 70-100 Nov 29, 2021 07:35 [facility] FINGERSTICK GLUCOSE Speci men Type: BLOOD PM Comment: [place] Nurse Notified Ordering Provid er: IRENE BURNS TWO Report Released Date/Time: Nov 29, 2021 07:48 PM Reporting Lab: [facility] [address] [facility] [address] Performing Lab: [facility] [address] [facility] [address] FINGERSTICK GLUCOSE 160 mg/dL H 70-100 Nov 29, 2021 06:52 [facility] FINGERSTICK GLUCOSE Speci men Type: BLOOD PM Comment: [place] Nurse Notified Ordering Provid er: SKASHI CROUCH Report Released Date/Time: Nov 29, 2021 07:04 PM Reporting Lab: [facility] [address] [facility] [address] Performing Lab: [facility] [address] [facility] [address] FINGERSTICK GLUCOSE 161 mg/dL H 70-100 Nov 29, 2021 04:18 [facility] FINGERSTICK GLUCOSE Speci men Type: BLOOD PM No comment enter ed. Ordering Provid er: IRENE BURNS TWO Report Released Date/Time: Nov 29, 2021 08:08 PM Reporting Lab: [facility] [address] [facility] [address] Performing Lab: [facility] [address] [facility] [address] FINGERSTICK GLUCOSE 179 mg/dL H 70-100 Nov 29, 2021 03:26 [facility] POC ABG/ELECTROLYTES Spec imen Type: ARTERIAL BLOOD PM Comment: Sample Type = ARTERIAL Ordering Provid er: IRENE BURNS TWO Report Released Date/Time: Nov 29, 2021 07:53 PM Reporting Lab: [facility] [address] Performing Lab: [facility] [address] POC PH 7.321 L 7.35-7.45 POC PCO2 [...] mg/dL L 4.50-5.30 Nov 29, 2021 03:24 [facility] FINGERSTICK GLUCOSE Speci men Type: BLOOD PM Comment: Save R esult Ordering Provid er: TEAM,CARDS TWO Report Released Date/Time: Nov 29, 2021 08:08 PM Reporting Lab: [facility] [address] Performing Lab: [facility] [address] FINGERSTICK GLUCOSE 188 mg/dL H 70-100 Nov 29, 2021 02:06 [facility] POC ABG/ELECTROLYTES Spec imen Type: ARTERIAL BLOOD PM Comment: Sample Type = ARTERIAL Ordering Provid er: TEAM,CARDS TWO Report Released Date/Time: Nov 29, 2021 07:53 PM Reporting Lab: [facility] [address] Performing Lab: [facility] [address] POC PH 7.313 L 7.35-7.45 POC PCO2 [...] mg/dL L 4.50-5.30 Nov 29, 2021 02:04 [facility] FINGERSTICK GLUCOSE Speci men Type: BLOOD PM Comment: Save R esult Ordering Provid er: IRENE BURNS Report Released Date/Time: Nov 29, 2021 08:08 PM Reporting Lab: [facility] [address] [facility] [address] Performing Lab: [facility] [address] [facility] [address] FINGERSTICK GLUCOSE 236 mg/dL H 70-100 Nov 29, 2021 01:52 PM [facility] POC ACT Specim en Type: BLOOD No comment enter ed. Ordering Provid er: IRENE BURNS Report Released Date/Time: Dec 03, 2021 01:31 PM Reporting Lab: [facility] [address] [address] Performing Lab: [facility] [address] POC ACT 135 s 84-139 Nov 29, 2021 01:16 PM [facility] POC ACT Specim en Type: BLOOD No comment enter ed. Ordering Provid er: IRENE BURNS Report Released Date/Time: Dec 03, 2021 01:30 PM Reporting Lab: [facility] [address] [facility] [address] Performing Lab: [facility] [address] [facility] [address] POC ACT 355 s 84-139 Nov 29, 2021 12:49 PM [facility] POC ACT Specim en Type: BLOOD No comment enter ed. Ordering Provid er: IRENE BURNS Report Released Date/Time: Dec 03, 2021 01:30 PM Reporting Lab: [facility] [address] [facility] [address] Performing Lab: [facility] [address] [facility] [address] POC ACT 367 s 84-139 Nov 29, 2021 12:48 [facility] POC ABG/ELECTROLYTES Spec imen Type: ARTERIAL BLOOD PM Comment: Sample Type = ARTERIAL Ordering Provid er: IRENE BURNS Report Released Date/Time: Nov 29, 2021 07:53 PM Reporting Lab: [facility] [address] [facility] [address] Performing Lab: [facility] [address] POC PH 7.289 L 7.35-7.45 POC PCO2 [...] 4.7 mg/dL 4.50-5.30 Nov 29, 2021 12:45 [facility] FINGERSTICK GLUCOSE Speci men Type: BLOOD PM Comment: Abram R pranav Ordering Provid er: IRENE BURNS TWO Report Released Date/Time: Nov 29, 2021 08:08 PM Reporting Lab: [facility] [address] [facility] [address] Performing Lab: [facility] [address] FINGERSTICK GLUCOSE 186 mg/dL H 70-100 Nov 29, 2021 12:26 PM [facility] POC ACT Specim en Type: BLOOD No comment enter ed. Ordering Provid er: IRENE BURNS TWO Report Released Date/Time: Dec 03, 2021 01:30 PM Reporting Lab: [facility] [facility] [address] Performing Lab: [facility] [address] [facility] [address] POC ACT 367 s 84-139 Nov 29, 2021 11:58 AM [facility] POC ACT Specim en Type: BLOOD No comment enter ed. Ordering Provid er: IRENE BURNS TWO Report Released Date/Time: Dec 03, 2021 01:30 PM Reporting Lab: [facility] [address] [facility] [address] Performing Lab: [facility] [address] POC ACT 338 s 84-139 Nov 29, 2021 11:53 [facility] FINGERSTICK GLUCOSE Speci men Type: BLOOD AM Comment: Save R esult Ordering Provid er: IRENE BURNS TWO Report Released Date/Time: Nov 29, 2021 08:08 PM Reporting Lab: [facility] [address] Performing Lab: [facility] [address] FINGERSTICK GLUCOSE 225 mg/dL H 70-100 Nov 29, 2021 11:30 AM [facility] POC ACT Specim en Type: BLOOD No comment enter ed. Ordering Provid er: IRENE BURNS Report Released Date/Time: Dec 03, 2021 01:30 PM Reporting Lab: [facility] [address] Performing Lab: [facility] [address] POC ACT 355 s 84-139 Nov 29, 2021 11:26 [facility] POC ABG/ELECTROLYTES Spec imen Type: ARTERIAL BLOOD AM Comment: Sample Type = ARTERIAL Ordering Provid er: IRENE BURNS TWO Report Released Date/Time: Nov 29, 2021 07:53 PM Reporting Lab: [facility] [address] Performing Lab: [facility] [address] POC PH 7.317 L 7.35-7.45 POC PCO2 [...] 4.8 mg/dL 4.50-5.30 Nov 29, 2021 11:06 [facility] FINGERSTICK GLUCOSE Speci men Type: BLOOD AM No comment enter ed. Ordering Provid er: IRENE BURNS Report Released Date/Time: Nov 29, 2021 08:08 PM Reporting Lab: [facility] [address] Performing Lab: [facility] [address] FINGERSTICK GLUCOSE 221 mg/dL H 70-100 Nov 29, 2021 11:02 AM [facility] POC ACT Specim en Type: BLOOD No comment enter ed. Ordering Provid er: IRENE BURNS Report Released Date/Time: Dec 03, 2021 01:30 PM Reporting Lab: [facility] [address] [address] Performing Lab: [facility] [address] POC ACT 294 s 84-139 Nov 29, 2021 10:26 AM [facility] POC ACT Specim en Type: BLOOD No comment enter ed. Ordering Provid er: IRENE BURNS Report Released Date/Time: Dec 03, 2021 01:30 PM Reporting Lab: [facility] [address] [address] Performing Lab: [facility] [address] POC ACT 329 s 84-139 Nov 29, 2021 10:06 AM [facility] POC ACT Specim en Type: BLOOD No comment enter ed. Ordering Provid er: IRENE BURNS Report Released Date/Time: Dec 03, 2021 01:30 PM Reporting Lab: [facility] [address] [facility] [address] Performing Lab: [facility] [address] [facility] [address] POC ACT 312 s 84-139 Nov 29, 2021 09:58 [facility] POC ABG/ELECTROLYTES Spec imen Type: ARTERIAL BLOOD AM Comment: Sample Type = ARTERIAL Ordering Provid er: IRENE BURNS Report Released Date/Time: Nov 29, 2021 07:53 PM Reporting Lab: [facility] [address] [facility] [address] Performing Lab: [facility] [address] [facility] [address] POC PH 7.334 L 7.35-7.45 POC PCO2 [...] 4.9 mg/dL 4.50-5.30 Nov 29, 2021 09:56 [facility] FINGERSTICK GLUCOSE Speci men Type: BLOOD AM No comment enter ed. Ordering Provid er: IRENE BURNS TWO Report Released Date/Time: Nov 29, 2021 08:08 PM Reporting Lab: [facility] [address] [address] Performing Lab: [facility] [address] [facility] [address] FINGERSTICK GLUCOSE 194 mg/dL H 70-100 Nov 29, 2021 09:45 AM [facility] POC ACT Specim en Type: BLOOD No comment enter ed. Ordering Provid er: IRENE BURNS Report Released Date/Time: Dec 03, 2021 01:30 PM Reporting Lab: [facility] [address] Performing Lab: [facility] [address] POC ACT 269 s 84-139 Nov 29, 2021 08:59 AM [facility] POC ACT Specim en Type: BLOOD No comment enter ed. Ordering Provid er: IRENE BURNS TWO Report Released Date/Time: Dec 03, 2021 01:30 PM Reporting Lab: [facility] [address] [facility] [address] Performing Lab: [facility] [address] [facility] [address] POC ACT 135 s 84-139 Nov 29, 2021 [facility] COVID-19 AND FLU/RSV Specime n Type: NASOPHARYNGEAL 07:05 AM DIAG PANEL(CEPHEID) Comment: Ce pheid GeneXpert (618) Ordering Provid er: KATHERINE FIGUEROA Report Released Date/Time: Oct 29, 2021 12:22 PM Reporting Lab: [facility] [address] [facility] [address] Performing Lab: [facility] [address] [facility] [address] COVID-19 (CEPHEID) Not Detected Not Dete cted INFLUENZA A (PCR) Not Detected Not Detec susanne INFLUENZA B (PCR) Not Detected Not Detec susanne RSV (PCR) Not Detected Not Detected Nov 29, 2021 [facility] BASIC METABOLIC Specimen Typ e: PLASMA 06:38 AM PANEL+MG No comment enter ed. Ordering Provid er: KATHERINE FIGUEROA Report Released Date/Time: Oct 29, 2021 12:22 PM Reporting Lab: [facility] [address] Performing Lab: [facility] [address] CREATININE 1.4 mg/dL H 0.7-1.2 UREA NITROGEN 23 mg/dL 8-26 GLUCOSE 201 mg/dL H 74-100 SODIUM 143 mmol/L 136-145 POTASSIUM 4.3 mmol/L 3.5-5.1 CHLORIDE 108 mmol/L H 98-107 CO2 28 mmol/L 22-29 CALCIUM 9.9 mg/dL 8.4-10.2 MAGNESIUM 1.9 mg/dL 1.6-2.6 ANION GAP 7 mmol/L 5-15 CREAT EGFR(CKD-EPI) 53 L >60 Nov 29, 2021 06:38 [facility] CBC Specimen Type: BLOOD AM No comment enter ed. Ordering Provid er: KATHERINE FIGUEROA Report Released Date/Time: Oct 29, 2021 12:22 PM Reporting Lab: [facility] [address] Performing Lab: [facility] [address] WBC 7.40 10*3/uL 4.0-11.0 RBC 5.17 10*6/uL 4.6-6.2 HGB 17.6 g/dL 13.5-17.9 HCT 52.7 41-54 MCV 101.9 fL H 80-100 MCH 34.0 pg H 27-33 MCHC 33.4 g/dL 32.0-37.5 PLT 88 10*3/uL L 150-400 MPV 14.3 fL H 7.4-10.4 RDW 14.4 11.5-14.5 IPF 18.0 H 0-10 Nov 29, 2021 [facility] PROTHROMBIN Specimen Typ e: PLASMA 06:38 AM TIME/INR No comment enter ed. Ordering Provid er: KATHERINE FIGUEROA Report Released Date/Time: Oct 29, 2021 12:22 PM Reporting Lab: [facility] [address] Performing Lab: [facility] [address] [facility] [address] .INR 1.1 0.8-1.1 .PT 13.1 s H 9.4-12.5 Nov 29, 2021 [facility] ACT PART Specimen Typ e: PLASMA 06:38 AM THROMBO TIME No comment enter ed. Ordering Provid er: KATHERINE FIGUEROA Report Released Date/Time: Oct 29, 2021 12:22 PM Reporting Lab: [facility] [address] Performing Lab: [facility] [address] APTT 33.3 s 25.1-36.5 Vital Signs: All taken on the encounter date This section contains inpatient and outpatient Vital Signs collected on the date of the Encounter. Date/Time Temperature Pulse Blood Respiratory SP02 Pain Height Weight Axel dy Source Pressure Rate Mass Index Nov 29, 98.3 F 96 99/66 18 /min 90 % 0 [place] 2021 11:07 /min mm[Hg] [facility] Nov 29 96 % [place] 2021 08:40 /min [facility] Nov 29, 232 lb 30 [place] 2021 08:38 [facility] Nov 29 112/73 97 % [place] 2021 08:35 /min mm[Hg] [facility] Nov 29, 113/69 90 % [place] 2021 08:15 /min mm[Hg] [facility] Social History: Smoking Status (Most current) and [...] Comment Facility Nov 29, 2021 08:36 PM DE-VAAES TOBACCO USE CURRENT NRT [facility] ACCEPT Tobacco Use History This section includes a history of the smoking, or tobacco- related health factors, that were collected on or before the date of the Encounter. The data comes from the [place] facility where the Encounter took place. 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 [facility] Nov 15, 2020 10:00 AM VA-TOBACCO USE MED NO [place] [facility] Nov 15, 2020 10:00 AM VA-TOBACCO USER EVERY DAY [facility] Jun 21, 2019 02:29 PM VA-TOBACCO USE 30 YEARS OR MORE [facility] Jun 21, 2019 02:29 PM VA-TOBACCO USE ADVICE [place] [facility] Jun 21, 2019 02:29 PM 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 [facility] Jun 21, 2019 02:29 PM VA-TOBACCO USE MED NO [place] [facility] Jun 21, 2019 02:29 PM VA-TOBACCO USE WI 30 MIN OF WAKEUP [facility] Jun 21, 2019 02:29 PM VA-TOBACCO USER EVERY DAY [facility] Jun 09, 2018 03:48 PM VA-TOBACCO USE 30 YEARS OR MORE [facility] Jun 09, 2018 03:48 PM VA-TOBACCO USE ADVICE [place] [facility] Jun 09, 2018 03:48 PM 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 [facility] Jun 09, 2018 03:48 PM VA-TOBACCO USE MED NO [place] [facility] Jun 09, 2018 03:48 PM VA-TOBACCO USE WI 30 MIN OF WAKEUP [facility] Jun 09, 2018 03:48 PM VA-TOBACCO USER EVERY DAY [facility] Jun 20, 2017 07:53 AM CURRENT TOBACCO USER [facility] Jun 19, 2016 08:41 AM CURRENT TOBACCO USER [facility] Jun 21, 2015 08:15 AM CURRENT TOBACCO USER [facility] Mar 22, 2014 10:03 AM CURRENT TOBACCO USER [facility] Mar 25, 2013 11:01 AM CURRENT TOBACCO USER [facility] Feb 05, 2012 08:55 AM CURRENT TOBACCO USER [facility] January 01, 2011 09:26 AM CURRENT TOBACCO USER [facility] Mar 07, 2010 10:02 AM CURRENT TOBACCO USER [facility] Feb 21, 2009 08:17 AM CURRENT TOBACCO USER [facility] Nov 06, 2007 10:02 AM CURRENT [...] 2005 ADVANCE DIRECTIVE GANESH RODRIGUEZ [facility] Radiology Reports: +/- 30 days of the [...] the Encounter. The data comes from all [place] treatment facilities. Date/Time Radiology Report Provider Source Nov 30, 2021 07:05 AM CHEST 2 VIEWS PA AND LAT: MONET LUDWIG [facility] [place] [id number] -[birth year] 9 M Exm Date: NOV 30, 2021@07:05 Req Phys: CHERRY MENDOZA Loc: 3LSOB/ 2@08:05 Img Loc: MAIN X-RAY Service: zzcard sect (Case [id number] COMPLETE) CHEST 2 VIEWS PA AND LAT (R AD Detailed) CPT:11614 Reason for Study: s/p upgrade ICD adding an A l ead Clinical History: Post ICD or Pacemaker: Verify Lead Placement. [place] IS NOT under investigation for COVID-19 or is COVID-19 negative s/p upgrade ICD adding an A lead Responsible pr ovider name and phone number to notify for critical findings if other than user placing the order and pager listed below: User placing orders pager: [phone] LAST CREATININE 1.4 H (11/29/21) Report Status: Verified Date Reported: NOV 30, 2021 Date Verified: NOV 30, 2021 Hospitalist Program Director E-Sig:/ES/MONET LUDWIG MD, FACR, C CD [...] 06:25 PM CHEST 1 VIEW: MAGDALENE DAVIDSON [facility] [place] [id number] -[birth year]UL [birth year] 9 M Exm Date: NOV 29, 2021@18:25 Req Phys: CHERRY MENDOZA Pat Loc: [facility] [address] [facility] (Req'g Loc) Img Loc: MAIN X-RAY Service: Unknown (Case [id number] COMPLETE) CHEST 1 VIEW (RAD Detailed) CPT:82946 Reason for Study: s/p upgrade ICD adding an A l ead Clinical History: Immediate Post-Op Pacemaker/ICD placement [place] IS NOT under investigation for COVID-19 or is COVID-19 negative s/p upgrade his ICD to dual chamber (adding an A lead) Responsible provider name and phone number to n otify for critical findings if other than user placing the order a nd pager listed below: User placing orders pager: [phone] LAST CREATININE 1.4 H (11/29/21) Report Status: Verified Date Reported: NOV 29, 2021 Date Verified: NOV 29, 2021 Hospitalist Program Director E-Sig:/[email or web address] DAVIDSON MD Report: DATE/TIME REGISTERED: 11/29/2021 [...] Primary Interpreting Staff: MAGDALENE DAVIDSON MD, RADIOLOGIST (Hospitalist Program Director) /LUAN
--- OUTSIDE RECORDS SUMMARY | 2022-04-02 16:13 | XMS_ITS | Encounter Summary ---
:[address] [facility] Address [address] [place] [id number] Care Team Providers Name Role Phone CROUCH [...] MEDICARE MEDICARE PART Jun 25, PART B [id number] Saumya QUINONES PATIENT (WNR) (M) B 2011 78A 0 AVID MEDICARE MEDICARE PART Sep 25, PART A [id number] Saumya QUINONES PATIENT (WNR) (M) A 2009 78A 0 AVID MEDICARE MEDICARE PART Sep 25, PART A [id number] Saumya MICHELE (WNR) (M) A 2009 78A [id number] AVID MEDICARE MEDICARE PART Sep 25, PART B [id number] Saumya MICHELE (WNR) (M) B 2009 78A [id number] AVID Selected Encounter This section includes the information on record at [place] for the Encounter. Date/Time Encounter Type Encounter Description Reason Provider Source Nov 29, 2021 10:00 Outpatient Encounter GENERAL INTERNAL AM MEDICINE IHE Encounter Template Text not used by [place] Plan of Treatment: Future Appointments (+ 6 months) and Future Tests (+/- 45 days) The Plan of Treatment section includes future care activities for the patient from all [place] [facility]. This section includes future appointments and future orders which are active, pending orscheduled.Future Appointments This section includes appointments that were scheduled to occur 6 months from the date of the Encounter, up to a maximum of 20 appointments. The data comes from all [facility]. Appointment Date/Time Appointment Type Appointment Facili ty Name Dec 21, 2021 09:30 AM AMBULATORY - NONE [facility] January 07, 2022 01:30 PM AMBULATORY - MEDICINE [facility] Feb 05, 2022 07:00 AM AMBULATORY - [facility] Feb 07, 2022 09:30 AM AMBULATORY - NONE [facility] Feb 13, 2022 10:00 AM AMBULATORY [facility] Mar 21, 2022 09:30 AM AMBULATORY [facility] Active, Pending, and Scheduled Orders This section includes a listing of several types of active, pending, and scheduled orders, including clinic medications orders, diagnostic test orders, procedure orders and consult orders; where the start date of the order is 45 days before the date of the Encounter or 45 days after the date of the Encounter. The data comes from all [facility]. Test Date/Time Test Type Test Details Facility Name Nov 29, 2021 06:30 AM Laboratory - Blood Bank TYPE & SCREEN - LA B [facility] Order BLOOD SP Dec 15, 2021 12:00 AM Laboratory - Chemistry BASIC METABOLIC MIN [facility] Order PANEL+MG PLASMA SP Lab [...] Comment Nov 30, 2021 11:26 [facility] FINGERSTICK GLUCOSE Speci men Type: BLOOD AM Comment: [place] Nurse Notified Ordering Provid er: TEAM,CARDS TWO Report Released Date/Time: Nov 30, 2021 11:46 AM Reporting Lab: [facility] [address] [facility] [address] Performing Lab: [facility] ONE [facility] I [address] [facility] [address] FINGERSTICK GLUCOSE 284 mg/dL H 70-100 Nov 30, 2021 09:47 AM [facility] ALBUMIN Specim en Type: PLASMA No comment enter ed. Ordering Provid er: ELIUD DINERO Report Released Date/Time: Nov 29, 2021 07:53 PM Reporting Lab: [facility] [address] [facility] [address] Performing Lab: [facility] [address] [facility] [address] ALBUMIN 3.4 g/dL L 3.5-5.2 Nov 30, 2021 09:47 [facility] BASIC METABOLIC Specimen Type: PLASMA AM PANEL+MG No comment enter ed. Ordering Provid er: ANGIE SIMS Report Released Date/Time: Nov 29, 2021 08:12 PM Reporting Lab: [facility] [address] [facility] [address] Performing Lab: [facility] [address] [facility] [address] CREATININE 1.2 mg/dL 0.7-1.2 UREA NITROGEN 18 mg/dL 8-26 GLUCOSE 342 mg/dL H 74-100 SODIUM 141 mmol/L 136-145 POTASSIUM 4.3 mmol/L 3.5-5.1 CHLORIDE 108 mmol/L H 98-107 CO2 26 mmol/L 22-29 CALCIUM 8.6 mg/dL 8.4-10.2 MAGNESIUM 1.5 mg/dL L 1.6-2.6 ANION GAP 7 mmol/L 5-15 CREAT EGFR(CKD-EPI) 63 >60 Nov 30, 2021 09:46 AM [facility] CBC Specim en Type: BLOOD No comment enter ed. Ordering Provid er: ANGIE SIMS Report Released Date/Time: Nov 29, 2021 08:12 PM Reporting Lab: [facility] [address] [facility] [address] Performing Lab: [facility] [address] [facility] [address] WBC 10.61 10*3/uL 4.0-11.0 RBC 4.33 10*6/uL L 4.6-6.2 HGB 14.6 g/dL 13.5-17.9 HCT 45.2 41-54 MCV 104.4 fL H 80-100 MCH 33.7 pg H 27-33 MCHC 32.3 g/dL 32.0-37.5 PLT 71 10*3/uL L 150-400 MPV 13.9 fL H 7.4-10.4 RDW 14.7 H 11.5-14.5 IPF 17.8 H 0-10 Nov 30, 2021 06:09 [facility] FINGERSTICK GLUCOSE Speci men Type: BLOOD AM Comment: [place] Nurse Notified Ordering Provid er: IRENE BURNS TWO Report Released Date/Time: Nov 30, 2021 06:32 AM Reporting Lab: [facility] [address] [facility] [address] Performing Lab: [facility] [address] [facility] [address] FINGERSTICK GLUCOSE 165 mg/dL H 70-100 Nov 29, 2021 07:35 [facility] FINGERSTICK GLUCOSE Speci men Type: BLOOD PM Comment: [place] Nurse Notified Ordering Provid er: IRENE BURNS TWO Report Released Date/Time: Nov 29, 2021 07:48 PM Reporting Lab: [facility] [address] [facility] [address] Performing Lab: [facility] [address] [facility] [address] FINGERSTICK GLUCOSE 160 mg/dL H 70-100 Nov 29, 2021 06:52 [facility] FINGERSTICK GLUCOSE Speci men Type: BLOOD PM Comment: [place] Nurse Notified Ordering Provid er: SAKSHI CROUCH Report Released Date/Time: Nov 29, 2021 07:04 PM Reporting Lab: [facility] [address] [facility] [address] Performing Lab: [facility] [address] [facility] [address] FINGERSTICK GLUCOSE 161 mg/dL H 70-100 Nov 29, 2021 04:18 [facility] FINGERSTICK GLUCOSE Speci men Type: BLOOD PM No comment enter ed. Ordering Provid er: IRENE BURNS TWO Report Released Date/Time: Nov 29, 2021 08:08 PM Reporting Lab: [facility] [address] [facility] [address] Performing Lab: [facility] [address] [facility] [address] FINGERSTICK GLUCOSE 179 mg/dL H 70-100 Nov 29, 2021 03:26 [facility] POC ABG/ELECTROLYTES Spec imen Type: ARTERIAL BLOOD PM Comment: Sample Type = ARTERIAL Ordering Provid er: IRENE BURNS TWO Report Released Date/Time: Nov 29, 2021 07:53 PM Reporting Lab: [facility] [address] Performing Lab: [facility] [address] POC PH 7.321 L 7.35-7.45 POC PCO2 [...] mg/dL L 4.50-5.30 Nov 29, 2021 03:24 [facility] FINGERSTICK GLUCOSE Speci men Type: BLOOD PM Comment: Save R esult Ordering Provid er: TEAM,CARDS TWO Report Released Date/Time: Nov 29, 2021 08:08 PM Reporting Lab: [facility] [address] Performing Lab: [facility] [address] FINGERSTICK GLUCOSE 188 mg/dL H 70-100 Nov 29, 2021 02:06 [facility] POC ABG/ELECTROLYTES Spec imen Type: ARTERIAL BLOOD PM Comment: Sample Type = ARTERIAL Ordering Provid er: TEAM,CARDS TWO Report Released Date/Time: Nov 29, 2021 07:53 PM Reporting Lab: [facility] [address] Performing Lab: [facility] [address] POC PH 7.313 L 7.35-7.45 POC PCO2 [...] mg/dL L 4.50-5.30 Nov 29, 2021 02:04 [facility] FINGERSTICK GLUCOSE Speci men Type: BLOOD PM Comment: Save R esult Ordering Provid er: IRENE BURNS Report Released Date/Time: Nov 29, 2021 08:08 PM Reporting Lab: [facility] [address] [facility] [address] Performing Lab: [facility] [address] [facility] [address] FINGERSTICK GLUCOSE 236 mg/dL H 70-100 Nov 29, 2021 01:52 PM [facility] POC ACT Specim en Type: BLOOD No comment enter ed. Ordering Provid er: IRENE BURNS Report Released Date/Time: Dec 03, 2021 01:31 PM Reporting Lab: [facility] [address] [facility] [address] Performing Lab: [facility] [address] [facility] [address] POC ACT 135 s 84-139 Nov 29, 2021 01:16 PM [facility] POC ACT Specim en Type: BLOOD No comment enter ed. Ordering Provid er: IRENE BURNS Report Released Date/Time: Dec 03, 2021 01:30 PM Reporting Lab: [facility] [address] [facility] [address] Performing Lab: [facility] [address] [facility] [address] POC ACT 355 s 84-139 Nov 29, 2021 12:49 PM [facility] POC ACT Specim en Type: BLOOD No comment enter ed. Ordering Provid er: IRENE BURNS Report Released Date/Time: Dec 03, 2021 01:30 PM Reporting Lab: [facility] [address] [facility] [address] Performing Lab: [facility] [address] [facility] [address] POC ACT 367 s 84-139 Nov 29, 2021 12:48 [facility] POC ABG/ELECTROLYTES Spec imen Type: ARTERIAL BLOOD PM Comment: Sample Type = ARTERIAL Ordering Provid er: IRENE BURNS Report Released Date/Time: Nov 29, 2021 07:53 PM Reporting Lab: [facility] [address] [facility] [address] Performing Lab: [facility] [address] [facility] [address] POC PH 7.289 L 7.35-7.45 POC PCO2 [...] 4.7 mg/dL 4.50-5.30 Nov 29, 2021 12:45 [facility] FINGERSTICK GLUCOSE Speci men Type: BLOOD PM Comment: Abram R pranav Ordering Provid er: IRENE BURNS TWO Report Released Date/Time: Nov 29, 2021 08:08 PM Reporting [facility] [address] Performing Lab: [facility] [address] FINGERSTICK GLUCOSE 186 mg/dL H 70-100 Nov 29, 2021 12:26 PM [facility] POC ACT Specim en Type: BLOOD No comment enter ed. Ordering Provid er: IRENE BURNS TWO Report Released Date/Time: Dec 03, 2021 01:30 PM Reporting Lab: [facility] [address] [facility] [address] Performing Lab: [facility] [address] [facility] [address] POC ACT 367 s 84-139 Nov 29, 2021 11:58 AM [facility] POC ACT Specim en Type: BLOOD No comment enter ed. Ordering Provid er: IRENE BURNS TWO Report Released Date/Time: Dec 03, 2021 01:30 PM Reporting Lab: [facility] [address] [facility] [address] Performing Lab: [facility] [address] [facility] [address] POC ACT 338 s 84-139 Nov 29, 2021 11:53 [facility] FINGERSTICK GLUCOSE Speci men Type: BLOOD AM Comment: Save R esult Ordering Provid er: IRENE BURNS TWO Report Released Date/Time: Nov 29, 2021 08:08 PM Reporting Lab: [facility] [address] Performing Lab: [facility] [address] FINGERSTICK GLUCOSE 225 mg/dL H 70-100 Nov 29, 2021 11:30 AM [facility] POC ACT Specim en Type: BLOOD No comment enter ed. Ordering Provid er: GRANTCARDS TWO Report Released Date/Time: Dec 03, 2021 01:30 PM Reporting Lab: [facility] [address] Performing Lab: [facility] [address] POC ACT 355 s 84-139 Nov 29, 2021 11:26 [facility] POC ABG/ELECTROLYTES Spec imen Type: ARTERIAL BLOOD AM Comment: Sample Type = ARTERIAL Ordering Provid er: IRENE BURNS TWO Report Released Date/Time: Nov 29, 2021 07:53 PM Reporting Lab: [facility] [address] Performing Lab: [facility] [address] POC PH 7.317 L 7.35-7.45 POC PCO2 [...] 4.8 mg/dL 4.50-5.30 Nov 29, 2021 11:06 [facility] FINGERSTICK GLUCOSE Speci men Type: BLOOD AM No comment enter ed. Ordering Provid er: IRENE BURNS Report Released Date/Time: Nov 29, 2021 08:08 PM Reporting Lab: [facility] [address] Performing Lab: [facility] [address] FINGERSTICK GLUCOSE 221 mg/dL H 70-100 Nov 29, 2021 11:02 AM [facility] POC ACT Specim en Type: BLOOD No comment enter ed. Ordering Provid er: IRENE BURNS Report Released Date/Time: Dec 03, 2021 01:30 PM Reporting Lab: [facility] [address] [facility] [address] Performing Lab: [facility] [address] [facility] [address] POC ACT 294 s 84-139 Nov 29, 2021 10:26 AM [facility] POC ACT Specim en Type: BLOOD No comment enter ed. Ordering Provid er: IRENE BURNS Report Released Date/Time: Dec 03, 2021 01:30 PM Reporting Lab: [facility] [address] [facility] [address] Performing Lab: [facility] [address] [facility] [address] POC ACT 329 s 84-139 Nov 29, 2021 10:06 AM [facility] POC ACT Specim en Type: BLOOD No comment enter ed. Ordering Provid er: IRENE BURNS Report Released Date/Time: Dec 03, 2021 01:30 PM Reporting Lab: [facility] [address] [facility] [address] Performing Lab: [facility] [address] [facility] [address] POC ACT 312 s 84-139 Nov 29, 2021 09:58 [facility] POC ABG/ELECTROLYTES Spec imen Type: ARTERIAL BLOOD AM Comment: Sample Type = ARTERIAL Ordering Provid er: IRENE BURNS Report Released Date/Time: Nov 29, 2021 07:53 PM Reporting Lab: [facility] [address] [facility] [address] Performing Lab: [facility] [address] [facility] [address] POC PH 7.334 L 7.35-7.45 POC PCO2 [...] 4.9 mg/dL 4.50-5.30 Nov 29, 2021 09:56 [facility] FINGERSTICK GLUCOSE Speci men Type: BLOOD AM No comment enter ed. Ordering Provid er: IRENE BURNS TWO Report Released Date/Time: Nov 29, 2021 08:08 PM Reporting Lab: [facility] [address] [facility] [address] Performing Lab: [facility] [address] [facility] [address] FINGERSTICK GLUCOSE 194 mg/dL H 70-100 Nov 29, 2021 09:45 AM [facility] POC ACT Specim en Type: BLOOD No comment enter ed. Ordering Provid er: IRENE BURNS Report Released Date/Time: Dec 03, 2021 01:30 PM Reporting Lab: [facility] [address] [facility] [address] Performing Lab: [facility] [address] [facility] [address] POC ACT 269 s 84-139 Nov 29, 2021 08:59 AM [facility] POC ACT Specim en Type: BLOOD No comment enter ed. Ordering Provid er: IRENE BURNS TWO Report Released Date/Time: Dec 03, 2021 01:30 PM Reporting Lab: [facility] [address] [facility] [address] Performing Lab: [facility] [address] [facility] [address] POC ACT 135 s 84-139 Nov 29, 2021 [facility] COVID-19 AND FLU/RSV Specime n Type: NASOPHARYNGEAL 07:05 AM DIAG PANEL(CEPHEID) Comment: Ce pheid GeneXpert (618) Ordering Provid er: KATHERINE FIGUEROA Report Released Date/Time: Oct 29, 2021 12:22 PM Reporting Lab: [facility] [address] [facility] [address] Performing Lab: [facility] [address] [facility] [address] COVID-19 (CEPHEID) Not Detected Not Dete cted INFLUENZA A (PCR) Not Detected Not Detec susanne INFLUENZA B (PCR) Not Detected Not Detec susanne RSV (PCR) Not Detected Not Detected Nov 29, 2021 [facility] BASIC METABOLIC Specimen Typ e: PLASMA 06:38 AM PANEL+MG No comment enter ed. Ordering Provid er: KATHERINE FIGUEROA Report Released Date/Time: Oct 29, 2021 12:22 PM Reporting Lab: [facility] [address] [facility] [address] Performing Lab: [facility] [address] CREATININE 1.4 mg/dL H 0.7-1.2 UREA NITROGEN 23 mg/dL 8-26 GLUCOSE 201 mg/dL H 74-100 SODIUM 143 mmol/L 136-145 POTASSIUM 4.3 mmol/L 3.5-5.1 CHLORIDE 108 mmol/L H 98-107 CO2 28 mmol/L 22-29 CALCIUM 9.9 mg/dL 8.4-10.2 MAGNESIUM 1.9 mg/dL 1.6-2.6 ANION GAP 7 mmol/L 5-15 CREAT EGFR(CKD-EPI) 53 L >60 Nov 29, 2021 06:38 [facility] CBC Specimen Type: BLOOD AM No comment enter ed. Ordering Provid er: KATHERINE FIGUEROA Report Released Date/Time: Oct 29, 2021 12:22 PM Reporting Lab: [facility] [address] [facility] [address] Performing Lab: [facility] [address] WBC 7.40 10*3/uL 4.0-11.0 RBC 5.17 10*6/uL 4.6-6.2 HGB 17.6 g/dL 13.5-17.9 HCT 52.7 41-54 MCV 101.9 fL H 80-100 MCH 34.0 pg H 27-33 MCHC 33.4 g/dL 32.0-37.5 PLT 88 10*3/uL L 150-400 MPV 14.3 fL H 7.4-10.4 RDW 14.4 11.5-14.5 IPF 18.0 H 0-10 Nov 29, 2021 [facility] PROTHROMBIN Specimen Typ e: PLASMA 06:38 AM TIME/INR No comment enter ed. Ordering Provid er: KATHERINE FIGUEROA Report Released Date/Time: Oct 29, 2021 12:22 PM Reporting Lab: [facility] [address] Performing Lab: [facility] [address] [place] [facility] [address] .INR 1.1 0.8-1.1 .PT 13.1 s H 9.4-12.5 Nov 29, 2021 [facility] ACT PART Specimen Typ e: PLASMA 06:38 AM THROMBO TIME No comment enter ed. Ordering Provid er: KATHERINE FIGUEROA Report Released Date/Time: Oct 29, 2021 12:22 PM Reporting Lab: [facility] [address] [place] [facility] [address] Performing Lab: [facility] [address] [place] [facility] [address] APTT 33.3 s 25.1-36.5 Vital Signs: All taken on the encounter date This section contains inpatient and outpatient Vital Signs collected on the date of the Encounter. Date/Time Temperature Pulse Blood Respiratory SP02 Pain Height Weight Axel dy Source Pressure Rate Mass Index Nov 29, 98.3 F 96 99/66 18 /min 90 % 0 [place] 2021 11:07 /min mm[Hg] [facility] Nov 29 98 96 % [place] 2021 08:40 /min [facility] Nov 29, 232 lb 30 [place] 2021 08:38 [facility] Nov 29 112/73 97 % [place] 2021 08:35 /min mm[Hg] [facility] Nov 29, 95 113/69 90 % [place] 2021 08:15 /min mm[Hg] [facility] Social History: Smoking Status (Most current) [...] Comment [facility] ACCEPT Tobacco Use History This section includes a history of the smoking, or tobacco- related health factors, that were collected on or before the date of the Encounter. The data comes from the [place] facility where the Encounter took place. Date/Time Smoking Status/Tobacco Use Comment [facility] Mar 20, 2021 11:21 AM [facility] TOBACCO USE CURRENT NRT [facility] DECLINE Nov 15, 2020 10:00 AM VA-TOBACCO DOESNT USE WI 30 MIN [facility] WAKEUP Nov 15, 2020 10:00 AM VA-TOBACCO USE 30 YEARS OR MORE [facility] Nov 15, 2020 10:00 AM VA-TOBACCO USE ADVICE [place] [facility] Nov 15, 2020 10:00 AM VA-TOBACCO USE DIRECTOR [place] NO [facility] Nov 15, 2020 10:00 AM VA-TOBACCO USE MED NO [place] [facility] Nov 15, 2020 10:00 AM VA-TOBACCO USER EVERY DAY [facility] Jun 21, 2019 02:29 PM VA-TOBACCO USE 30 YEARS OR MORE [facility] Jun 21, 2019 02:29 PM VA-TOBACCO USE ADVICE [place] [facility] Jun 21, 2019 02:29 PM VA-TOBACCO USE DIRECTOR [place] NO [facility] Jun 21, 2019 02:29 PM VA-TOBACCO USE MED NO [place] [facility] Jun 21, 2019 02:29 PM VA-TOBACCO USE WI 30 MIN OF WAKEUP [facility] Jun 21, 2019 02:29 PM VA-TOBACCO USER EVERY DAY [facility] Jun 09, 2018 03:48 PM VA-TOBACCO USE 30 YEARS OR MORE [facility] Jun 09, 2018 03:48 PM VA-TOBACCO USE ADVICE [place] [facility] Jun 09, 2018 03:48 PM VA-TOBACCO USE DIRECTOR [place] NO [facility] Jun 09, 2018 03:48 PM VA-TOBACCO USE MED NO [place] [facility] Jun 09, 2018 03:48 PM VA-TOBACCO USE WI 30 MIN OF WAKEUP [facility] Jun 09, 2018 03:48 PM VA-TOBACCO USER EVERY DAY [facility] Jun 20, 2017 07:53 AM CURRENT TOBACCO USER [facility] Jun 19, 2016 08:41 AM CURRENT TOBACCO USER [facility] Jun 21, 2015 08:15 AM CURRENT TOBACCO USER [facility] Mar 22, 2014 10:03 AM CURRENT TOBACCO USER [facility] Mar 25, 2013 11:01 AM CURRENT TOBACCO USER [facility] Feb 05, 2012 08:55 AM CURRENT TOBACCO USER [facility] January 01, 2011 09:26 AM CURRENT TOBACCO USER [facility] Mar 07, 2010 10:02 AM CURRENT TOBACCO USER [facility] Feb 21, 2009 08:17 AM CURRENT TOBACCO USER [facility] Nov 06, 2007 10:02 AM CURRENT TOBACCO USER [facility] January 02, 2007 10:33 AM [...] this document. The data comes from all [facility]. Date Advance Directives Provider Source Mar 06, 2005 ADVANCE DIRECTIVE GANESH RODRIGUEZ [facility] Radiology Reports: +/- 30 days of [...] the Encounter. The data comes from all [place] treatment facilities. Date/Time Radiology Report Provider Source Nov 30, 2021 07:05 AM CHEST 2 VIEWS PA AND LAT: MONET LUDWIG [facility] [place] [id number] -[birth year] 9 M Exm Date: NOV 30, 2021@07:05 Req Phys: CHERRY MENDOZA Pat Loc: 3LSOB/ 2@08:05 Img Loc: MAIN X-RAY Service: zzcard sect (Case [id number] COMPLETE) CHEST 2 VIEWS PA AND LAT (R AD Detailed) CPT:54098 Reason for Study: s/p upgrade ICD adding an A l ead Clinical History: Post ICD or Pacemaker: Verify Lead Placement. [place] IS NOT under investigation for COVID-19 or is COVID-19 negative s/p upgrade ICD adding an A lead Responsible pr ovider name and phone number to notify for critical findings if other than user placing the order and pager listed below: User placing orders pager: [phone] LAST CREATININE 1.4 H (11/29/21) Report Status: Verified Date Reported: NOV 30, 2021 Date Verified: NOV 30, 2021 Trains Service Conductor E-Sig:/[email or web address]/MONET LUDWIG MD, FACR, C CD Report: [...] 06:25 PM CHEST 1 VIEW: MAGDALENE DAVIDSON [facility] [place] [id number] -[birth year] 9 M Exm Date: NOV 29, 2021@18:25 Req Phys: CHERRY MENDOZA Pat Loc: [facility] [address] A[facility] (Req'g Loc) Img Loc: MAIN X-RAY Service: Unknown (Case [id number] COMPLETE) CHEST 1 VIEW (RAD Detailed) CPT:43229 Reason for Study: s/p upgrade ICD adding [...] pager listed below: User placing orders pager: [phone] LAST CREATININE 1.4 H (11/29/21) Report Status: Verified Date Reported: NOV 29, 2021 Date Verified: NOV 29, 2021 [employer] E-Sig:/[email or web address] DAVIDSON MD Report: DATE/TIME REGISTERED: 11/29/2021 [...] Primary Interpreting Staff: MAGDALENE DAVIDSON MD, RADIOLOGIST (Trains Service Conductor) /LUAN Encounter Notes: All associated encounter notes This section contains the clinical notes associated to the Encounter. Date/Time Encounter Note(s) Provider Source Nov 29, 2021 07:40 NURSING PROCEDURE NOTE: LORAINE ARCOS [facility] LOCAL TITLE: KATINA PROCEDURE NURSING NOTE STANDARD TITLE: NURSING PROCEDURE NOTE DATE OF NOTE: NOV 29, 2021@19:40 ENTRY DATE: NOV 29, 2021@19:40:20 AUTHOR: LORAINE ARCOS EXP COSIGNER: URGENCY: STATUS: COMPLETED Post Procedure Note Procedure: PVI Ablation, Generator change with a dding a 2nd lead Returned to floor at: Nov@19:42 Vitals: Temperature: 98.5 F [36.9 C] (11/29/2021 19:35) Pulse: 96 (11/29/2021 19:35) Respirations: 18 (11/29/2021 19:35) Blood Pressure: 125/79 (11/29/2021 19:35) Pain: 0 (11/29/2021 19:35) Oxygen saturation: Yes94% on 1L Incision/Site/Dressing(s): Bilateral groin site: c/d/i. L upper chest site: Dressing intact with slight strike throu gh blood, pressure dressing applied. R wrist access: c/d/i. R neck IJ site: c/d/i. All skin inspected for pressure injury, describe findings: none found Mental Status: alert and oriented PO Intake Status: resume diet Activity Level: as tolerated Other Nursing Observations and Intervent ions: Post op vitals, s/s of bleeding, CMS, pluse, tele monitoring, blood glucose monit oring, pain management, urine output, diet, medication management. /billy/ LORAINE JOSSELYN, RN REGISTERED NURSE Signed: 11/29/2021 19:46 Nov 29, 2021 06:54 H & P NOTE: ANGIE SIMS [facility] LOCAL TITLE: H&P HISTORY & PHYSICAL - MEDICINE STANDARD TITLE: H & P NOTE DATE OF NOTE: NOV 29, 2021@18:54 ENTRY DATE: NOV 29, 2021@18:54:40 AUTHOR: ANGIE SIMS EXP COSIGNER: URGENCY: STATUS: COMPLETED MEDICINE HISTORY & PHYSICAL Chief Complaint: s/p ablation for his atrial fibrillationa nd device upgrade (added atrial lead) History of Present Illness (HPI) - Patient is a 76 year-old male with PMH including DM2, HTN, COPD, tobacco use, CAD s/p OR with angioplasty to RCA in 1993, s/p [...] weeks. Groin sites intact. No acute complications. Emergency Department (ED) Course: Admitted from PACU Past Medical History: Active problems - Computerized Problem List is t he source for the followin. Status post left inguinal hernia repair 2. Chronic low back pain 3. Thrombocytopenia (SNOMED CT 799668922) 4. Chronic obstructive pulmonary disease (SNOME D CT [id number]) - FEV1/FVC (05/2011) 2.47/3.46. FEV1 58% pred. FEV1% 70. 5. History of adenomatous polyp of colon (SNOME D CT [id number]) 6. Type 2 diabetes mellitus 7. Hypertension 8. Coronary artery disease - S/P inferior OR in 1993. - S/P atherectomy RCA in 1993. - S/P CABG x 3 in 2010. 9. Chronic systolic heart failure - S/P ICD placement in 2011. - Echo (12/2020 ANW) EF 23%, LAE, mod global hyp okinesis. 10. Hyperlipidemia 11. Tobacco use 12. Cardiac defibrillator in situ 13. Peripheral neuropathy 14. Persistent atrial fibrillation 15. Unifocal PVCs Past Surgical History: As above Family History: Not significant Social History: 1. Tobacco - current smoker 1 ppd 2. Alcohol - moderate 2 gagandeep&coke every other day 3. Illicit Drug Use - none 4. Living Situation - With son and zeke colin Allergies: LISINOPRIL (Nov 09, 2007) Review of System: ROS is negative except as mentioned in the HPI Physical Exam: Temp: 97.5 F [36.4 C] (09/21/2021 09:49) Pulse:76 (09/21/2021 09:49) BP: 123/75 (09/21/2021 09:49) Resp: 18 (09/21/2021 09:49) Weight: 223.7 lb [101.47 kg] (09/21/2021 09:49) Pain: 0 (09/21/2021 09:49) O2 Sat: 98% (09/21/2021 09:49) BMI: 29.2 General: Alert, NAD, lying flat in bed HEENT: PERRL, slightly tacky MM, IJ site CDI Cardio: Regular, no murmurs, no edema, pulses 2 +, radial artery site covered in pressure dressing with no blood, bilateral groin sites CDI without hematoma, swelling, bleeding Lungs: CTAB Abd: Soft, non-distended, non-tender Extrem: Moving all extremities, no edema Neuro: Slight tremor of left hand, no focal def icits Labs: - INR: INR 1.1 PLASMA (11/29/21 06:38) - Complete Blood Count White count: WBC 7.40 (11/29/21) Hemoglobin: HGB 17.6 (11/29/21) Hematocrit: HCT 52.7 (11/29/21) Platelets: PLT 88 L (11/29/21) - Complete Metabolic Panel SODIUM 143 (11/29/21) POTASSIUM 4.3 (11/29/21) CHLORIDE 108 H (11/29/21) CO2 28 (11/29/21) UREA NITROGEN 23 (11/29/21) CREATININE 1.4 H (11/29/21) GLUCOSE 201 H (11/29/21) CALCIUM 9.9 (11/29/21) MAGNESIUM 1.9 (11/29/21) EGFR (03/28) 09/21/21 @ 0858 54 L CREATININE EGFR (CKD-EPI) 11/29/21 @ 0638 53 L AST/SGOT 28 (02/19/21) ALT/SGPT 32 (02/19/21) ALK PHOSPHATASE____ ALBUMIN 3.5 (03/21/21) BILIRUBIN, TOTAL____ Active and Recently Outpatient Medicatio ns (including Supplies): Active Outpatient Medications Status 1) ACCU-CHEK [...] 30 MINUTES BEFORE MEAL FOR DIABETES 9) METFORMIN HCL 1000MG TAB TAKE ONE TABLET BY M OUTH TWO ACTIVE TIMES A DAY FOR DIABETES 10) METOPROLOL SUCCINATE 200MG SA TAB TAKE ONE-H HALF-WAY ACTIVE TABLET BY MOUTH EVERY DAY FOR HEART 11) OLODATEROL/TIOTROP 2.5MCG/ACTUAT 60D INH INH COLE 2 ACTIVE PUFFS BY INHALATION EVERY DAY TO PREVENT TROUBL E BREATHING 12) SACUBITRIL 24MG/VALSARTAN 26MG TAB TAKE 1 TA BLET BY ACTIVE MOUTH TWICE A DAY FOR HEART FAILURE 13) SEMAGLUTIDE 1MG/0.75ML INJ PEN 3ML INJECT 1M G UNDER ACTIVE THE SKIN EVERY WEEK FOR DIABETES -REFRIGERATE -MULTIPLE DOSES PER PEN 14) VITAMIN B COMPLEX CAP TAKE 1 CAPSULE BY MOUT H EVERY ACTIVE DAY FOR NUTRITION Pending Outpatient Medications Status 1) CEPHALEXIN 500MG CAP TAKE ONE CAPSULE BY MOUT H TWICE PENDING A DAY FOR 3 DAYS Inactive Outpatient Medications Status 1) ACCU-CHEK GUIDE (GLUCOSE) TEST STRIP 1 STRIP FOR DISCONTINUED TESTING TWICE WEEKLY TO CHECK BLOOD SUGAR--USE WITHIN 3 MINUTES OF REMOVING FROM CONTAINER T EST AT DIFFERENT TIMES OF THE DAY OR DIRECTED 2) ACCU-CHEK GUIDE (GLUCOSE) TEST STRIP 1 STRIP FOR DISCONTINUED TESTING TWICE WEEKLY TO CHECK BLOOD SUGAR--USE (EDIT) WITHIN 3 MINUTES OF REMOVING FROM CONTAINER T EST AT DIFFERENT TIMES OF THE DAY OR DIRECTED 3) APIXABAN 5MG TAB TAKE ONE TABLET BY MOUTH SAMI RY 12 DISCONTINUED HOURS TO PREVENT BLOOD CLOTS, STROKE (EDIT) 4) ATORVASTATIN CALCIUM 80MG TAB TAKE ONE-HALF T ABLET BY DISCONTINUED MOUTH AT BEDTIME FOR CHOLESTEROL 5) BUDESONIDE 80/FORMOTER 4.5MCG 120D INH INHALE 2 PUFFS DISCONTINUED BY INHALATION TWICE A DAY *RINSE MOUTH AFTER US ING. 6) DIGOXIN 0.125MG TAB TAKE ONE TABLET BY MOUTH EVERY DISCONTINUED DAY 7) EMPAGLIFLOZIN 25MG TAB TAKE ONE TABLET BY FLORY TH EVERY DISCONTINUED DAY 8) EMPAGLIFLOZIN 25MG TAB TAKE ONE-HALF TABLET B Y MOUTH DISCONTINUED EVERY DAY (EDIT) 9) FLUTICASONE 230/SALMET 21MCG 120D INHL INHALE 1 PUFF DISCONTINUED BY INHALATION EVERY 12 HOURS RINSE MOUTH AFTER EACH USE; REPLACES SYMBICORT 10) FUROSEMIDE 40MG TAB TAKE ONE TABLET BY MOUTH EVERY DISCONTINUED DAY 11) GABAPENTIN 300MG CAP TAKE TWO CAPSULES BY MO UTH THREE DISCONTINUED TIMES A DAY FOR LEG PAIN 12) GABAPENTIN 300MG CAP TAKE ONE CAPSULE BY FLORY TH EVERY DISCONTINUED MORNING AND EVERYDAY AT NOON AND TAKE TWO CAPSU LES (EDIT) AT BEDTIME FOR LEG PAIN 13) GLIPIZIDE 10MG TAB TAKE TWO TABLETS BY MOUTH TWICE A DISCONTINUED DAY TAKE 30 MINUTES BEFORE MEAL FOR DIABETES 14) LOSARTAN 50MG TAB TAKE ONE-HALF TABLET BY MO UTH EVERY DISCONTINUED DAY FOR BLOOD PRESSURE, FOR HEART 15) METOPROLOL SUCCINATE 100MG SA TAB TAKE ONE-H OSWALD DISCONTINUED TABLET BY MOUTH EVERY DAY FOR HEART (EDIT) 16) METOPROLOL SUCCINATE 100MG SA TAB TAKE ONE-H OSWALD DISCONTINUED TABLET BY MOUTH EVERY DAY 17) METOPROLOL SUCCINATE 200MG SA TAB TAKE ONE-H HALF-WAY DISCONTINUED TABLET BY MOUTH EVERY DAY FOR HEART 18) METOPROLOL SUCCINATE 25MG SA TAB TAKE ONE AN D DISCONTINUED ONE-HALF TABLETS BY MOUTH EVERY DAY FOR HEART ( EDIT) 19) NITROGLYCERIN 0.4MG SL TAB DISSOLVE ONE TABL ET UNDER THE TONGUE ONCE FOR CHEST PAIN * MAY REPEAT SAMI RY 5 MINUTES--NO MORE THAN 3 TOTAL 20) SACUBITRIL 24MG/VALSARTAN 26MG TAB TAKE ONE- HALF DISCONTINUED TABLET BY MOUTH TWICE A DAY FOR HEART FAILURE ( EDIT) -REPLACES LOSARTAN 21) SEMAGLUTIDE 0.5MG/0.375ML INJ PEN 1.5ML INJE CT 0.5MG DISCONTINUED UNDER THE SKIN EVERY WEEK FOR DIABETES -MULTIPL E (EDIT) DOSES PER PEN 22) SEMAGLUTIDE 0.5MG/0.375ML INJ PEN 1.5ML INJE CT 0.25MG DISCONTINUED UNDER THE SKIN EVERY WEEK FOR 4 WEEKS, THEN INJ ECT 0.5MG EVERY WEEK FOR DIABETES -MULTIPLE DOSES P ER PEN Active Non-VA Medications Status 1) Non-VA ASCORBIC ACID 500MG TAB 1000MG EVERY D AY ACTIVE 2) Non-VA MARINE LIPID (FISH OIL) CAP,ORAL MOUTH ACTIVE 3) Non-VA MULTIVITAMINS CAP/TAB MOUTH ACTIVE 4) Non-VA NON VA MED NOT LISTED MISCELLANEOUS CA TS CLAW ACTIVE MOUTH 41 Total Medications No Active Remote Medications for this patient Imaging CXR on 11/29/2021 Impression: 1. New left subclavian lead. No evidence of pne umothorax. 2. Cardiomegaly and mild pulmonary venous conge stion. Echo 10/29/21 Interpretation Summary No thrombus or spontaneous echo contrast seen in the left atrial appendage. The left ventricular ejection fraction is severe ly reduced. The visually estimated ejection fraction is 15%. There is mild mitral valve regurgitation. The right ventricular systolic function is moder ately reduced. There are no significant valvular abnormalities. Assessment/Plan: Patient is a 76 year-old male with PMH includin g DM2, HTN, COPD, tobacco use, CAD s/p OR with angioplasty to RCA in 1993, s/p 3-vessel CABG 10/2010,ICM with single chamb er ICD implanted 2011 for primary prevention, atrial fibrillation s/p dofetilide, 11% PVC burden on zio, admitted to the hospital for ablation and device upgrade. #atrial fibrillation s/p defetilide treatment in 02/2021 #s/p ablation and device upgrade Doing well post-op, no immediate complications. CXR post-op WNL. 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 Monito r fluid status closely. Currently on 2L NC and satting well. Blood press ures WNL. - EMERGENCY VEHICLE OPERATOR Lasix - EMERGENCY VEHICLE OPERATOR atorvastatin - EMERGENCY VEHICLE OPERATOR empafliglozin - EMERGENCY VEHICLE OPERATOR ARNI #T2DM - EMERGENCY VEHICLE OPERATOR glipizide - Hold metformin, semiglutide - SSI - Hypoglycemia protocol #COPD - Home inhaler #Neuropathy - EMERGENCY VEHICLE OPERATOR gabapentin Fluids/Electrolytes/Nutrition (FEN): Cardiac Deep Vein Thrombosis (DVT) Prophylaxis: Chronic AC Code Status: Full Disposition: Home pending observation overnight Patient to be staffed formally in AM. Angie Sims MD-[facility] Internal Medicine-Pediatrics, PGY-1 Additional Secondary Diagnoses /es/ Angie Sims MD Resident Physician Signed: 11/29/2021 19:59 Nov 29, 2021 05:42 CARDIOLOGY PROCEDURE NOTE: CHERRY MENDOZA [facility] LOCAL TITLE: CARDIOLOGY ELECTROPHYSIOLOGY PROCE DURE NOTE STANDARD TITLE: CARDIOLOGY PROCEDURE NOTE DATE OF NOTE: NOV 29, 2021@17:42 ENTRY DATE: NOV 29, 2021@17:43:10 AUTHOR: CHERRY MENDOZA EXP COSIGNER: URGENCY: STATUS: COMPLETED CARDIOLOGY ELECTROPHYSIOLOGY PROCEDURE NOTE Has ADDENDA EP PROCEDURE NOTE Procedures: 1. Left Atrial Wide Area Circumferential Radiofr equency Ablation. And Right Nancy line. 2. Trans-septal Puncture x1 3. Intracardiac Echocardiography. 4. Invasive Hemodynamic Monitoring. 5. 3D electro-anatomic Mapping using Carto3. 6. Esophageal temperature monitoring. 7. ICD upgrade with addition of an atrial lead. 8. Per-closure device 9. CTI line Ablation 10. Generator change. Attending: Dr Figueroa EP Fellow: Dr Mendoza Procedure Date: 11/29/2021 Pre-operative Diagnosis: Paroxysmal Atrial Fibri llation resistant to AAT Post-operative diagnosis: S/p: 1. Left Atrial Wi de Area Circumferential Radiofrequency Ablation. And Right Nancy line. 2. ICD upgrade with addition of an atrial lead and Generator change. 3. CTI line Ablation Complications: None. Fluoroscopy time/dose: see procedure log Clinical Profile: HPI: Patient is a 76 year-old male with PMH incl uding DM2, HTN, COPD, tobacco use, CAD s/p OR with angioplasty to RCA in 1993 , s/p 3-vessel CABG 10/2010, ICM with single chamber ICD implanted 2011 for prim jorge a prevention. In December 2020, patient was admitted to OSH with multiple ICD s hocks (6) and found to be in atrial fibrillation, a new diagnosis for him. H e was started on anticoagulation and rate-controlled. He also had some CHF and w as diuresed. An echocardiogram was done showing an ejection fraction of 23%. Saumya Figueroa saw patient in f/u and felt [...] bid given borderline creatinine clearance. He tolerated this well and was succe ssfully cardioverted. He unfortunately sustained an ICD shock on 03/30/21 due to VT and dofetilide was discontinued due to concern for pro-arrhythmia. PVI has been arranged and is scheduled next month. At recent EP f/u it was n oted patient was having frequent PVCs on EKG and Ziopatch obtained, showing ~11% overall PVC burden. PT is here today for afib ablation PROCEDURE-1 The risks and benefits of the procedure were explained to the patient in full. The risks include, but are not limited to: pain, bleeding, blood transfusion reactions, arrhythmia, dissection of ves sels, cardiac perforation, pericardial effusion, stroke, and . Informed Consent wa s obtained. The patient was brought to the EP lab in a fasting and hemodynam ically stable condition. The patient was prepped and draped in a sterile [facility] ion. This procedure was done under general anesthesia. Sheaths and Catheters: After local anesthesia with 2% lidocaine, vascular access was obtained using the modified Seldinger technique for the following a ccess points: Right Femoral Vein: - 7Fr Locking Sheath: A decapolar catheter was p ositioned into the coronary sinus. - 9Fr Sheath: Exchanged for an Agilis and Lamp trans-septal Sheath through which a Biosense Moran Thermacoo l Smartouch 3.5 mm tip DF curve mapping and ablation catheter was placed into the LA. As well as Pent array catheter. Left Femoral Vein: - 9 Fr Sheath - an ICE catheter was placed into the RA / RV. - 6 FR sheath as a central line. EP study results (in milliseconds): Pre-ablation: In in flutter, VV= 519, VLD=507. Post-ablation: AA=VV= 579, PV=058, GLO=364, QT=3 80. Procedure Description: After the above sheaths were in place, the bunny ters were positioned under fluoroscopic guidance. The I CE catheter was placed into the RA. Baseline survey of the heart with the ICE did not reveal the pre sence of any significant pericardial effusion. A temperature probe was pl aced in the esophagus. At the start of the study pt was in atrial flutter with concentric activation on the CS at a TCL of 260. We started LAT m apping of the right atrium that showed early meets late activation counterclockwise. we then entrained the tachycardia by pacing the CS 9,10 at 240 with a PPI of 296 (PPI-TCL= 36ms), we also repeated pacing at 230 with similar PPI measurements conf irming reentrant tachycardia. Then we paced CS 1,2 PPI: 395 (PPI-IPS=423). We then performed a Cavotricuspid Isthmu s ablation line. The ablation catheter was advanced into the cavotr iscupid isthmus and checked in the both the REYES and CUBAN projections, with the ca theter at 6 O'Clock in CUBAN. Radiofrequency Ablation was applied using 40 W for 30 second , a nd the catheter dragged from tricuspid annulus to IVC. The line was performed under Carto guidance. Post ablation, the TICT was 200 msec CS to abla tion catheter (on the lateral side). Complete block was confirmed using differential pacing/3D map w ith CSp pacing. We then performed the trans- septal access: The guide wire was advanced into the SVC. The Lamp trans-septal s dang and dilator were advanced over the guide wire into the SVC and directed me dially. The guide wire was removed, the dilator was aspirated, and the Bailys needle was advanced. U sing both the REYES and CUBAN projections, the trans-septa l system was then dragged down and the Fossa Ovalis was engaged. Tenting of the interatrial septum w as observed with ICE. The needle was advanced into the LA and the location confirmed using ICE. While fixing the needle, the dilator was slightly adva nced across the septum. The dilator and then the sheath were advanced though the septum into the LA. The trans-septal needle was then withdrawn from the dilator. The dilator was removed, and the sheath was then flushed. A Heparin bolus and drip were started, with serial monitoring of ACTs to keep ACT aroun d 350-400 We used the Pentarray and ab lation catheters to build the LA, pulmonary vein and LA appendage geometry with FAM on Carto3. With the left atrial map in place,and the oesoph egeal probe in place, we then performed a wide area circumferential ablation o f the LA uding 40w anteriorly and 30 w posteriorly. And a Right Nancy line ab altion was performed. The Pentarray was used to confirm electrical isolati on of the pulmonary veins. Differential pacing was perf ormed from the coronary sinus. Electrical isolation was achieved in all four pulmonary veins. Exit b lock were confirmed The sheaths were pulled out of the left atrium into the RA. Heparin was stopped and protamine was given, after a test dose had r evealed no reaction. The catheters were withdrawn, and the sheath s were pulled. Perclosure devices were used, The patient was extubated then transported to PACU for a monitored bed. ASSESSMENT: 1. Symptomatic Paroxysmal Atrial Fibrillation, r efractory to AAT. 2.S/P 1. Left Atrial Wide Area Circumferential R adiofrequency Ablation. And Right Nancy line. 2.CTI line Ablation PLAN: 1. Re-start oral anticoagulation tomorrow. 2. Transfer to a monitored bed. PROCEDURE NOTE-2 Procedures: 1. Single Chamber ICD Upgrade to dual Chamber. A nd generator change. Attending: Dr Figueroa EP Fellow: Dr Mendoza Procedure Date: 11/29/2021 Pre-operative Diagnosis: Single Chamber ICD with need of atrial monitoring for SVT discrimination. Post-operative diagnosis: s/p Single Chamber ICD Upgrade to dual Chamber. And generator change Complications: None. Fluoroscopy time/dose: none PROCEDURE The risks and benefits of the procedure were explained to the patient in full. The risks of the procedure include, but are not limited to: pain, bleeding, blood transfusion reactions, infection, pneumothorax, perforation of vessels or heart, pericardial effusion, and . Informed Consent was obtained. The patient was brought to the EP lab in a fasting a nd hemodynamically stable condition. The patient was prepped and draped in a sterile fashion. Sedation: This procedure was performed under gen eral anesthesia, Heart rate, blood pressure, oxygen saturation, and patient r esponses were monitored throughout the procedure with the assistance of the RN. The left chest wall was vigorously washed, prepp ed, and sterilely draped. The chest wall was anesthetized with 2% lidocaine. A subclavian venogram was performed. A 5 cm incision was made approximately 2 fingerbreadths from the clavicle over the previous incision. The subcutaneous tissue was carefully dissected down to the old generator. The generator was taken out o f the pocket. The subclavian vein was accessed via the pocket and over the fi rst rib under fluoroscopic guidance, and one guidewire was inserted down in to the level of the IVC. A peel away sheath was inser susanne through the guidewire. The guidewire and dilator was removed. A right atrial lead was inserted through the sheath and positioned the lead at the RA appendage. The lead was screw ed into the myocardium. There was very good sensing and pa cing threshold at this position. Ten-volt pacing did not produce diaphragmatic stimulation. The sheat h was then peeled away. The right atrial lead was suture d down into the underlying muscle using 0-ethibond. The pocket was then vigorous ly washed with antibiotic solution. The right atrial and right ventricular leads were inserted into a new pulse generator (generator change was performed). The pulse generat or and the lead were inserted into the subcutaneous pocket. The pocket was then closed i n 3 layers using 2-0 Vicryl for the deep layers and 4-0 Vicryl for the subcuticular layer. Steri-Str ips and a dressing were then applied over the incision site, and the patient was transported to a monitored bed. Dr. Figueroa was present throughout the en tire procedure. EQUIPMENT 1.The Pulse Generator is [id number], Serial [id number] 2.The RA Lead is [id number], Serial [id number] 3.The RV Lead is a [id number], Serial [id number]. 4.Explanted: product: [id number] Serial: [id number] MEASUREMENTS The RA lead is sensing P wav es of 1.3 mV and a pacing threshold of 0.75 V @ 0.40 msec with an impedance of 494ohms. The RV lead is sensing R wav es of 4.1 mV and a pacing threshold [...] and Device interrogation in a.m. /billy/ CHERRY WILLSON PHOTOGRAMMETRIC TECH Signed: 11/29/2021 19:43 Receipt Acknowledged By: 11/30/2021 15:04 /billy/ KATHERINE AYON MD STAFF PHYSICIAN - CARDIAC GATE WATCH 11/30/2021 ADDENDUM STATUS: COMPLETED I performed the procedure with and I agree with the note. /billy/ KATHERINE FIGUEROA MD STAFF PHYSICIAN - CARDIAC GATE WATCH Signed: 11/30/2021 15:05 Nov 29, 2021 08:34 CARDIOLOGY DIAGNOSTIC STUDY NOTE: SHELLEY MENDOZA [facility] AM LOCAL TITLE: CARDIOLOGY ELECTROPHYSIOLOGY NOTE STANDARD TITLE: CARDIOLOGY DIAGNOSTIC STUDY NOTE DATE OF NOTE: NOV 29, 2021@08:34 ENTRY DATE: NOV 29, 2021@08:35:01 AUTHOR: CHERRY MENDOZA EXP COSIGNER: URGENCY: STATUS: COMPLETED [place] CART Program for Clinical Assessment, Report ing, and Tracking ELECTROPHYSIOLOGY PRE-PROCEDURE ASSESSMENT REPOR T Patient: PAUL MICHELE SSN: [id number] D OB: 1945 AGE: 76 Assessment for elective ELECTROPHYSIOLOGY proced ure Assessed by: CHERRY MENDOZA Date: 11/29/2021 Attending: KATHERINE FIGUEROA PRESENTATION Indications: Atrial Fibrillation (AF) CARDIAC RISK FACTORS Diabetes Hypertension Dyslipidemia Current tobacco use COMORBID CONDITIONS PHYSICAL EXAM Vital Value Unit Date/Time BP 123/ 75 mmHG 09/21/2021 09:49 HR 76 bpm 09/21/2021 09:49 Height 73.5 inches 09/21/2021 09:49 Weight 223.7 lbs 09/21/2021 09:49 BSA 2.1 m^2 09/21/2021 09:49 Neck: LABS Lab Value Date/Time Alert Creatinine 1.4 11/29/2021 06:38 high Potassium 4.3 11/29/2021 06:38 Hematocrit 52.7 11/29/2021 06:38 Platelets 88 11/29/2021 06:38 low INR 1.1 11/29/2021 06:38 PTT 33.3 11/29/2021 06:38 INPATIENT MEDICATIONS CEFAZOLIN 2 GM expires: 03/24/2022 in 0.9% NACL 20 ML IVPB ONCE INFUSE OVER 30 Minutes OUTPATIENT MEDICATIONS METOPROLOL SUCCINATE 200MG SA TAB Qty: 45 for 9 0 days expires: 09/27/2022; last filled: 11/08/2021; acti ve Sig: TAKE ONE-HALF TABLET BY MOUTH EVERY DAY FO R HEART VITAMIN B COMPLEX CAP Qty: 100 for 90 days expires: 08/17/2022; last filled: 11/23/2021; act madelin Sig: TAKE 1 CAPSULE BY MOUTH EVERY DAY FOR NUTR ITION *ALBUTEROL 90MCG (CFC-F) 200D ORAL INHL Qty: 2 for 50 days expires: 08/11/2022; last filled: 09/14/2021; ac tive Sig: INHALE 2 PUFFS BY INHALATION FOUR TIMES A DAY NEEDED FOR SHORTNESS OF BREATH *SHAKE WELL* (FOR IMMEDIATE RELIEF) OLODATEROL/TIOTROP 2.5MCG/ACTUAT 60D INH Qty: 1 for 30 days expires: 07/12/2022; last filled: 09/14/2021; ac tive Sig: INHALE 2 PUFFS BY INHALATION EVERY DAY TO PREVENT TROUBLE BREATHING ATORVASTATIN CALCIUM 80MG TAB Qty: 45 for 90 da ys expires: 06/21/2022; last filled: 09/01/2021; act madelin Sig: TAKE ONE-HALF TABLET BY MOUTH AT BEDTIME F OR CHOLESTEROL EMPAGLIFLOZIN 25MG TAB Qty: 60 for 60 days expires: 06/21/2022; last filled: 08/30/2021; act madelin Sig: TAKE ONE TABLET BY MOUTH EVERY DAY FUROSEMIDE 40MG TAB Qty: 90 for 90 days expires: 06/21/2022; last filled: 09/22/2021; ac tive Sig: TAKE ONE TABLET BY MOUTH EVERY DAY GABAPENTIN 300MG CAP Qty: 360 for 60 days expires: 06/21/2022; last filled: 10/25/2021; act madelin Sig: TAKE TWO CAPSULES BY MOUTH THREE TIMES A D AY FOR LEG PAIN GLIPIZIDE 10MG TAB Qty: 360 for 90 days expires: 06/21/2022; last filled: 09/09/2021; ac tive Sig: TAKE TWO TABLETS BY MOUTH TWICE A DAY T RENETTA 30 MINUTES BEFORE MEAL FOR DIABETES ACCU-CHEK GUIDE (GLUCOSE) TEST STRIP Qty: 100 f or 25 days expires: 06/21/2022; last filled: 10/29/2021; act madelin Sig: USE 1 STRIP TOPICALLY EVERY DAY TO CHECK B LOOD SUGAR--USE WITHIN 3 MINUTES OF REMOVING FROM CONTAINER TEST AT DI FFERENT TIMES OF THE *SEMAGLUTIDE 1MG/0.75ML INJ PEN 3ML Qty: 1 for 28 days expires: 05/09/2022; last filled: 10/02/2021; acti ve Sig: INJECT 1MG UNDER THE SKIN EVERY WEEK FOR D IABETES -REFRIGERATE - MULTIPLE DOSES PER PEN APIXABAN 5MG TAB Qty: 180 for 90 days expires: 03/27/2022; last filled: 09/28/2021; activ e Sig: TAKE ONE TABLET BY MOUTH EVERY 12 HOURS TO PREVENT BLOOD CLOTS, STROKE *SACUBITRIL 24MG/VALSARTAN 26MG TAB Qty: 120 fo r 60 days expires: 02/20/2022; last filled: 02/20/2021; act madelin Sig: TAKE 1 TABLET BY MOUTH TWICE A DAY FOR HEA RT FAILURE METFORMIN HCL 1000MG TAB Qty: 180 for 90 days expires: 01/30/2022; last filled: 10/11/2021; acti ve Sig: TAKE ONE TABLET BY MOUTH TWO TIMES A DAY F OR DIABETES Non-VA MARINE LIPID (FISH OIL) CAP,ORAL MOUTH Non-VA ASCORBIC ACID 500MG TAB 1000MG EVERY DAY Non-VA NON VA MED NOT LISTED MISCELLANEOUS CATS CLAW MOUTH Non-VA MULTIVITAMINS CAP/TAB MOUTH ALLERGIES/ADVERSE REACTIONS Lisinopril SEDATION/CONSENT General Anesthesia NPO status for procedure was explained to patie nt/surrogate. The risks, benefits, and alternatives of the pr ocedure and sedation/analgesia were explained to and discus sed with the patient/surrogate in detail. All questions have been answered and the patien t/surrogate understands the potential risks and benefits and consents to th e procedure and the plan for sedation. PROCEDURE PLAN Planned Therapeutic Procedures: Atrial fibrillation ablation SUMMARY From Chart: HPI: Patient is a 76 year-old male with PMH inc luding DM2, HTN, COPD, tobacco use, CAD s/p OR with angioplasty to RCA in 1993 , s/p 3-vessel CABG 10/2010, ICM with single chamber ICD implanted 2011 for prim jorge a prevention. In December 2020, patient was admitted to OSH with multiple ICD s hocks (6) and found to be in atrial fibrillation, a new diagnosis for him. H e was started on anticoagulation and rate-controlled. He also had some CHF and w as diuresed. An echocardiogram was done showing an ejection fraction of 23%. Saumya Figueroa saw patient in f/u and felt [...] bid given borderline creatinine clearance. He tolerated this well and was succe ssfully cardioverted. He unfortunately sustained an ICD shock on 03/30/21 due to VT and dofetilide was discontinued due to concern for pro-arrhythmia. PVI has been arranged and is scheduled next month. At recent EP f/u it was n oted patient was having frequent PVCs on EKG and Ziopatch obtained, showing ~11% overall PVC burden. PT is here today for afib ablation [id number] [facility][id number] 11/29/2021 /billy/ CHERRY MENDOZA EP PHOTOGRAMMETRIC TECH Signed: 11/29/2021 08:35
--- OUTSIDE RECORDS SUMMARY | 2022-04-02 16:13 | XMS_ITS | Encounter Summary ---
:1945 Author Organization [facility] Address [address] [place], [place] [id number] Care Team Providers Name Role Phone SAKSHI [...] MEDICARE MEDICARE PART Jun 25, PART B [id number] Saumya QUINONES PATIENT (WNR) (M) B 2011 78A 0 AVID MEDICARE MEDICARE PART Sep 25, PART A [id number] Saumya QUINONES PATIENT (WNR) (M) A 2009 78A 0 AVID MEDICARE MEDICARE PART Sep 25, PART A [id number] Saumya MICHELE (WNR) (M) A 2009 78A [phone] AVID MEDICARE MEDICARE PART Sep 25, PART B [id number] Saumya MICHELE ATTHOMAS (WNR) (M) B 2009 78A [phone] AVID Selected Encounter This section includes the information on record at [place] for the Encounter. Date/Time Encounter Type Encounter Reason Provider Source Description Nov 29, 2021 ECHO CARDIAC ECHO ICD-10-CM I49.3 WAGNER LYNN 08:00 AM TRANSESOPHAGEAL Ventricular L premature depolarization with Provider Comments: Unifocal PVCs ([facility] [id number]) IHE Encounter Template Text not used by [facility] Assessments - Encounter Diagnoses This section includes the primary and secondary diagnoses documented for the Encounter. Date/Time Primary/Secondary Diagnosis Name Provider Source Diagnosis Nov 29, 2021 PRIMARY Ventricular CARLOS EDUARDO NGUYEN [facility] 10:01 AM premature FRACISCO Foster [facility] depolarization Nov 29, 2021 SECONDARY Other persistent CARLOS EDUARDO NGUYEN [place] 10:01 AM atrial fibrillation FRACISCO Foster [facility] Plan of Treatment: Future Appointments (+ 6 months) and Future Tests (+/- 45 days) The Plan of Treatment section includes future care activities for the patient from [facility] [place] [facility] This section includes future appointments and future orders which are active, pending orscheduled.Future Appointments This section includes appointments that were scheduled to occur 6 months from the date of the Encounter, up to a maximum of 20 appointments. The data comes from all [place] treatment [facility]. Appointment Date/Time Appointment Type Appointment Facili ty Name Dec 21, 2021 09:30 AM AMBULATORY - NONE [facility] January 07, 2022 01:30 PM AMBULATORY - MEDICINE [facility] Feb 05, 2022 07:00 AM AMBULATORY - [facility] Feb 07, 2022 09:30 AM AMBULATORY - NONE [facility] Feb 13, 2022 10:00 AM AMBULATORY [facility] Mar 21, 2022 09:30 AM AMBULATORY [...] the Encounter. The data comes from all [place] treatment [facility]. Test Date/Time Test Type Test Details Facility Name Nov 29, 2021 06:30 AM Laboratory - Blood Bank TYPE & SCREEN - LA B [facility] Order BLOOD SP Dec 15, 2021 12:00 AM Laboratory - Chemistry BASIC METABOLIC MIN [facility] Order PANEL+MG PLASMA SP Lab Results: [...] 11:46 AM Reporting Lab: [facility] [address] [facility] [address] Performing Lab: [facility] [address] [facility] [address] FINGERSTICK GLUCOSE 284 mg/dL H 70-100 Nov 30, 2021 09:47 AM [facility] ALBUMIN Specim en Type: PLASMA No comment enter ed. Ordering Provid er: ELIUD DINERO Report Released Date/Time: Nov 29, 2021 07:53 PM Reporting Lab: [facility] [address] [facility] [address] Performing Lab: [facility] [address] [facility] [address] ALBUMIN 3.4 g/dL L 3.5-5.2 Nov 30, 2021 09:47 [facility] BASIC METABOLIC Specimen Type: PLASMA AM PANEL+MG No comment enter ed. Ordering Provid er: ANGIE MALHOTRA Report Released Date/Time: Nov 29, 2021 08:12 PM Reporting Lab: [facility] [address] [facility] [address] Performing Lab: [facility] [address] [facility] [address] CREATININE 1.2 mg/dL 0.7-1.2 UREA NITROGEN 18 [...] Reporting Lab: [facility] [address] [facility] [address] Performing Lab: [facility] [address] [facility] [address] WBC 10.61 10*3/uL 4.0-11.0 RBC 4.33 10*6/uL [...] Nov 30, 2021 06:32 AM Reporting Lab: [facility] [address] [facility] [address] [facility] [address] FINGERSTICK GLUCOSE 165 mg/dL H 70-100 Nov 29, 2021 07:35 [facility] FINGERSTICK GLUCOSE Speci men Type: BLOOD PM Comment: [place] Nurse Notified Ordering Provid er: IRENE BURNS Report Released Date/Time: Nov 29, 2021 07:48 PM Reporting Lab: [facility] [address] [facility] [address] Per[facility]: [facility] [address] FINGERSTICK GLUCOSE 160 mg/dL H 70-100 Nov 29, 2021 06:52 [facility] FINGERSTICK GLUCOSE Speci men Type: BLOOD PM Comment: [place] Nurse Notified Ordering Provid er: SAKSHI CROUCH Report Released Date/Time: Nov 29, 2021 07:04 PM Reporting Lab: [facility] [address] [facility] [address] Performing Lab: [facility] [address] FINGERSTICK GLUCOSE 161 mg/dL H 70-100 Nov 29, 2021 04:18 [facility] FINGERSTICK GLUCOSE Speci men Type: BLOOD PM No comment enter ed. Ordering Provid er: IRENE BURNS TWO Report Released Date/Time: Nov 29, 2021 08:08 PM Reporting Lab: [facility] [address] [facility] [address] Performing Lab: [facility] [address] [facility] [address] FINGERSTICK GLUCOSE 179 mg/dL H 70-100 Nov 29, 2021 03:26 [facility] POC ABG/ELECTROLYTES Spec imen Type: ARTERIAL BLOOD PM Comment: Sample Type = ARTERIAL Ordering Provid er: TEAM,CARDS TWO Report Released Date/Time: Nov 29, 2021 07:53 PM Reporting Lab: [facility] [address] [facility] [address] Performing Lab: [facility] [address] [facility] [address] POC PH 7.321 L 7.35-7.45 POC PCO2 [...] Reporting Lab: [facility] [address] [facility] [address] Performing Lab: [facility] [address] [facility] [address] FINGERSTICK GLUCOSE 188 mg/dL H 70-100 Nov 29, 2021 02:06 [facility] POC ABG/ELECTROLYTES Spec imen Type: ARTERIAL BLOOD PM Comment: Sample Type = ARTERIAL Ordering Provid er: TEAM,CARDS TWO Report Released Date/Time: Nov 29, 2021 07:53 PM Reporting Lab: [facility] [address] [facility] [address] Performing Lab: [facility] [address] [facility] [address] POC PH 7.313 L 7.35-7.45 POC PCO2 [...] Reporting Lab: [facility] [address] [facility] [address] Performing Lab: [facility] [address] FINGERSTICK GLUCOSE 236 mg/dL H 70-100 Nov 29, 2021 01:52 PM [facility] POC ACT Specim en Type: BLOOD No comment enter ed. Ordering Provid er: IRENE BURNS TWO Report Released Date/Time: Dec 03, 2021 01:31 PM Reporting Lab: [facility] [address] [facility] [address] Performing Lab: [facility] [address] [facility] [address] POC ACT 135 s 84-139 Nov 29, 2021 01:16 PM [facility] POC ACT Specim en Type: BLOOD No comment enter ed. Ordering Provid er: IRENE BURNS TWO Report Released Date/Time: Dec 03, 2021 01:30 PM Reporting Lab: [facility] [address] [facility] [address] Performing Lab: [facility] [address] [facility] [address] POC ACT 355 s 84-139 Nov 29, 2021 12:49 PM [facility] POC ACT Specim en Type: BLOOD No comment enter ed. Ordering Provid er: IRENE BURNS TWO Report Released Date/Time: Dec 03, 2021 01:30 PM Reporting Lab: [facility] [address] [facility] [address] Performing Lab: [facility] [address] [facility] [address] POC ACT 367 s 84-139 Nov 29, 2021 12:48 [facility] POC ABG/ELECTROLYTES Spec imen Type: ARTERIAL BLOOD PM Comment: Sample Type = ARTERIAL Ordering Provid er: IRENE BURNS TWO Report Released Date/Time: Nov 29, 2021 07:53 PM Reporting Lab: [facility] [address] [facility] [address] Performing Lab: [facility] [address] POC PH 7.289 L 7.35-7.45 POC PCO2 [...] 08:08 PM Reporting Lab: [facility] [address] [facility] [address] Performing Lab: [facility] [address] [facility] [address] FINGERSTICK GLUCOSE 186 mg/dL H 70-100 Nov 29, 2021 12:26 PM [facility] POC ACT Specim en Type: BLOOD No comment enter ed. Ordering Provid er: IRENE BURNS TWO Report Released Date/Time: Dec 03, 2021 01:30 PM Reporting Lab: [facility] [address] [facility] [address] Performing Lab: [facility] [address] [facility] [address] POC ACT 367 s 84-139 Nov 29, 2021 11:58 AM [facility] POC ACT Specim en Type: BLOOD No comment enter ed. Ordering Provid er: IRENE BURNS TWO Report Released Date/Time: Dec 03, 2021 01:30 PM Reporting Lab: [facility] [address] [facility] [address] Performing Lab: [facility] [address] [facility] [address] POC ACT 338 s 84-139 Nov 29, 2021 11:53 [facility] FINGERSTICK GLUCOSE Speci men Type: BLOOD AM Comment: Save R esult Ordering Provid er: IRENE BURNS TWO Report Released Date/Time: Nov 29, 2021 08:08 PM Reporting Lab: [facility] [address] Performing Lab: [facility] [address] FINGERSTICK GLUCOSE 225 mg/dL H 70-100 Nov 29, 2021 11:30 AM [facility] POC ACT Specim en Type: BLOOD No comment enter ed. Ordering Provid er: IRENE BURNS Report Released Date/Time: Dec 03, 2021 01:30 PM Reporting Lab: [facility] [address] [facility] [address] Performing Lab: [facility] [address] [facility] [address] POC ACT 355 s 84-139 Nov 29, 2021 11:26 [facility] POC ABG/ELECTROLYTES Spec imen Type: ARTERIAL BLOOD AM Comment: Sample Type = ARTERIAL Ordering Provid er: IRENE BURNS Report Released Date/Time: Nov 29, 2021 07:53 PM Reporting Lab: [facility] [address] [facility] [address] Performing Lab: [facility] [address] [facility] [address] POC PH 7.317 L 7.35-7.45 POC PCO2 [...] Lab: [facility] [address] [facility] [address] Performing Lab: [facility] [address] [facility] [address] FINGERSTICK GLUCOSE 221 mg/dL H 70-100 Nov 29, 2021 11:02 AM [facility] POC ACT Specim en Type: BLOOD No comment enter ed. Ordering Provid er: IRENE BURNS Report Released Date/Time: Dec 03, 2021 01:30 PM Reporting Lab: [facility] [address] [facility] [address] Performing Lab: [facility] [address] [facility] [address] POC ACT 294 s 84-139 Nov 29, 2021 10:26 AM [facility] POC ACT Specim en Type: BLOOD No comment enter ed. Ordering Provid er: IRENE BURNS Report Released Date/Time: Dec 03, 2021 01:30 PM Reporting Lab: [facility] [address] [facility] [address] Performing Lab: [facility] [address] [facility] [address] POC ACT 329 s 84-139 Nov 29, 2021 10:06 AM [facility] POC ACT Specim en Type: BLOOD No comment enter ed. Ordering Provid er: IRENE BURNS Report Released Date/Time: Dec 03, 2021 01:30 PM Reporting Lab: [facility] [address] [facility] [address] Performing Lab: [facility] [address] [facility] [address] POC ACT 312 s 84-139 Nov 29, 2021 09:58 [facility] POC ABG/ELECTROLYTES Spec imen Type: ARTERIAL BLOOD AM Comment: Sample Type = ARTERIAL Ordering Provid er: IRENE BURNS Report Released Date/Time: Nov 29, 2021 07:53 PM Reporting Lab: [facility] [address] [facility] [address] Performing Lab: [facility] [address] [facility] [address] POC PH 7.334 L 7.35-7.45 POC PCO2 [...] Reporting Lab: [facility] [address] [facility] [address] Performing Lab: [facility] [address] FINGERSTICK GLUCOSE 194 mg/dL H 70-100 Nov 29, 2021 09:45 AM [facility] POC ACT Specim en Type: BLOOD No comment enter ed. Ordering Provid er: IRENE BURNS TWO Report Released Date/Time: Dec 03, 2021 01:30 PM Reporting Lab: [facility] [address] [facility] [address] Performing Lab: [facility] [address] POC ACT 269 s 84-139 Nov 29, 2021 08:59 AM [facility] POC ACT Specim en Type: BLOOD No comment enter ed. Ordering Provid er: IRENE BURNS TWO Report Released Date/Time: Dec 03, 2021 01:30 PM Reporting Lab: [facility] [address] [facility] [address] Performing Lab: [facility] [address] [facility] [address] POC ACT 135 s 84-139 Nov 29, 2021 [facility] COVID-19 AND FLU/RSV Specime n Type: NASOPHARYNGEAL 07:05 AM DIAG PANEL(CEPHEID) Comment: Ce pheid GeneXpert (618) Ordering Provid er: KATHERINE FIGUEROA Report Released Date/Time: Oct 29, 2021 12:22 PM Reporting Lab: [facility] [address] Performing Lab: [facility] [address] COVID-19 (CEPHEID) Not Detected Not Dete cted [...] 2021 12:22 PM Reporting Lab: [facility] [address] Performing Lab: [facility] [address] CREATININE 1.4 mg/dL H 0.7-1.2 UREA NITROGEN [...] 12:22 PM Reporting Lab: [facility] [address] Performing Lab: [facility] [address] WBC 7.40 10*3/uL 4.0-11.0 RBC 5.17 10*6/uL [...] 2021 12:22 PM Reporting Lab: [facility] [address] Performing Lab: [facility] [address] .INR 1.1 0.8-1.1 .PT 13.1 s H 9.4-12.5 Nov 29, 2021 [facility] ACT PART Specimen Typ e: PLASMA 06:38 AM THROMBO TIME No comment enter ed. Ordering Provid er: KATHERINE FIGUEROA Report Released Date/Time: Oct 29, 2021 12:22 PM Reporting Lab: [facility] [address] Performing Lab: [facility] [address] APTT 33.3 s 25.1-36.5 Vital Signs: All taken on the encounter date This section contains inpatient and outpatient Vital Signs collected on the date of the Encounter. Date/Time Temperature Pulse Blood Respiratory SP02 Pain Height Weight Axel dy Source Pressure Rate Mass Index Nov 29, 98.3 F 96 99/66 18 /min 90 % 0 [place] 2021 11:07 /min mm[Hg] [facility] Nov 29 96 % [place] 2021 08:40 /min [facility] Nov 29, 232 lb 30 [place] 2021 08:38 [facility] Nov 29 112/73 97 % [place] 2021 08:35 /min mm[Hg] [facility] Nov 29 113/69 90 % [place] 2021 08:15 /min mm[Hg] [facility] Social History: Smoking Status [...] took place. Date/Time Smoking Status/Tobacco Use Comment [facility] Mar 20, 2021 11:21 AM VA-VAAES TOBACCO USE CURRENT NRT [facility] DECLINE Nov 15, 2020 10:00 AM VA-TOBACCO DOESNT USE WI 30 MIN [facility] WAKEUP Nov 15, 2020 10:00 AM VA-TOBACCO USE 30 YEARS OR MORE [facility] Nov 15, 2020 10:00 AM VA-TOBACCO USE ADVICE [place] [facility] Nov 15, 2020 10:00 AM VA-TOBACCO USE CORRECTIONS NURSE NO [facility] Nov 15, 2020 10:00 AM VA-TOBACCO USE MED NO [place] [facility] Nov 15, 2020 10:00 AM VA-TOBACCO USER EVERY DAY [facility] Jun 21, 2019 02:29 PM VA-TOBACCO USE 30 YEARS OR MORE [facility] Jun 21, 2019 02:29 PM VA-TOBACCO USE ADVICE [place] [facility] Jun 21, 2019 02:29 PM VA-TOBACCO USE CORRECTIONS NURSE NO [facility] Jun 21, 2019 02:29 PM VA-TOBACCO USE MED NO [place] [facility] Jun 21, 2019 02:29 PM VA-TOBACCO USE WI 30 MIN OF WAKEUP [facility] Jun 21, 2019 02:29 PM VA-TOBACCO USER EVERY DAY [facility] Jun 09, 2018 03:48 PM VA-TOBACCO USE 30 YEARS OR MORE [facility] Jun 09, 2018 03:48 PM VA-TOBACCO USE ADVICE [place] [facility] Jun 09, 2018 03:48 PM VA-TOBACCO USE CORRECTIONS NURSE NO [facility] Jun 09, 2018 03:48 PM VA-TOBACCO USE MED NO [place] [facility] Jun 09, 2018 03:48 PM VA-TOBACCO USE WI 30 MIN OF WAKEUP [facility] Jun 09, 2018 03:48 PM VA-TOBACCO USER EVERY DAY [facility] Jun 20, 2017 07:53 AM CURRENT TOBACCO USER [facility] Jun 19, 2016 08:41 AM CURRENT TOBACCO USER [facility] Jun 21, 2015 08:15 AM CURRENT TOBACCO USER [facility] Mar 22, 2014 10:03 AM CURRENT TOBACCO USER [facility] Mar 25, 2013 11:01 AM CURRENT TOBACCO USER [facility] Feb 05, 2012 08:55 AM CURRENT TOBACCO USER [facility] January 01, 2011 09:26 AM CURRENT TOBACCO USER [facility] Mar 07, 2010 10:02 AM CURRENT TOBACCO USER [facility] Feb 21, 2009 08:17 AM CURRENT TOBACCO USER [facility] Nov 06, 2007 10:02 AM CURRENT TOBACCO USER [facility] January 02, 2007 10:33 AM CURRENT TOBACCO USER [facility] Advance Directives: All historical and current Section Date Range: From patient's date of to the date document was created. This section includes ALL of a patient's completed or amended [place] Advance and Rescinded Directives. The entries below indicate that a directive exists for the patient, but an actual copy is not included with this document. The data comes from all [facility]. Date Advance Directives Provider Source Mar 06, 2005 ADVANCE DIRECTIVE GANESH RODRIGUEZ [facility] Radiology Reports: +/- 30 days of [...] the Encounter. The data comes from all [place] treatment facilities. Date/Time Radiology Report Provider Source Nov 30, 2021 07:05 AM CHEST 2 VIEWS PA AND LAT: MONET LUDWIG [facility] PAUL MICHELE ROBERTO [id number] -[birth year] M Exm Date: NOV 30, 2021@07:05 Req Phys: CHERRY MENDOZA Loc: 3LSOB/ 2@08:05 Img Loc: MAIN X-RAY Service: zzcard sect (Case [id number] COMPLETE) CHEST 2 VIEWS PA AND LAT (R AD Detailed) CPT:68737 Reason for Study: s/p upgrade ICD adding [...] pager listed below: User placing orders pager: [phone] LAST CREATININE 1.4 H (11/29/21) Report Status: Verified Date Reported: NOV 30, 2021 Date Verified: NOV 30, 2021 Head Up Operator E-Sig:/ES/MONET LUDWIG MD, FACR, C CD Report: [...] 06:25 PM CHEST 1 VIEW: MAGDALENE DAVIDSON [facility] PAUL MICHELE [id number] -[birth year] M Exm Date: NOV 29, 2021@18:25 Req Phys: CHERRY MENDOZA Pat Loc: [facility] [address] [facility] (Req'g Loc) Img Loc: MAIN X-RAY Service: Unknown (Case [id number] COMPLETE) CHEST 1 VIEW (RAD Detailed) CPT:20522 Reason for Study: s/p upgrade ICD adding an A l ead Clinical History: Immediate Post-Op Pacemaker/ICD placement [place] IS NOT under investigation for COVID-19 or is COVID-19 negative s/p upgrade his ICD to dual chamber (adding an A lead) Responsible provider name and phone number to n otify for critical findings if other than user placing the order a nd pager listed below: User placing orders pager: [phone] LAST CREATININE 1.4 H (11/29/21) Report Status: Verified Date Reported: NOV 29, 2021 Date Verified: NOV 29, 2021 Head Up Operator E-Sig:/ES/MAGDALENE DAVIDSON MD Report: DATE/TIME REGISTERED: 11/29/2021 [...] Encounter Note(s) Provider Source Nov 29, 2021 10:42 AM CARDIOLOGY PROCEDURE NOTE: [facility] LOCAL TITLE: ECHOCARDIOGRAM PROCEDURE STANDARD TITLE: CARDIOLOGY PROCEDURE NOTE DATE OF NOTE: NOV 29, 2021@10:42:04 ENTRY DATE: NOV 29, 2021@10:42:04 AUTHOR: CLINICAL,DEVICE PRO EXP COSIGNER: URGENCY: STATUS: COMPLETED PROCEDURE SUMMARY CODE: Machine Resulted DATE/TIME PERFORMED: NOV 29, 2021@08:00:1 DOCUMENT IN MegathreadTA IMAGING SEE FULL REPORT IN VISTA IMAGING SIGNATURE NOT REQUIRED SEE SIGNATURE IN VISTA IMAGING (XCELERA ISCV GIRMA OUTPT) AUTO-INSTRUMENT DIAG NOSIS Procedure: M_TEE GIRMA Release Status: Released Off-Line Verified Date Verified: Nov 29, 2021@10:41:17 Study ID: [id number] + + [place], [place] + + [facility] [address] [place] Transesophageal Echocardiogram Report + + :Name: PAUL MICHELE Study Date: 11/29 : : Patient [facility]: [facility] ECHO [facility] : :: 1945 Gender: Male : :Age: 76 yrs : :CP Order Number: [id number] : :Reason For Study: r/o Thrombus : + + :[employer]: Lata Nguyen RDCS : + + :Referring Physician: PAT FIGUEROA : + + Interpretation Summary No thrombus or spontaneous echo contrast seen in the left atrial appendage. The left ventricular ejection fraction is severe ly reduced. The visually estimated ejection fraction is 15%. There is mild mitral valve regurgitation. The right ventricular systolic function is moder ately reduced. There are no significant valvular abnormalities. No recent TEEs available for direct comparison. No significant changes noted compared to TTE done on 07/26/2021. Procedure A 2D transesophageal echocardiogram ([id number]) was performed. The usual views were obtained; basal, mid-esophageal, tr ansgastric, aortic , and 3D views. The patient's vital signs, including blood pressure, heart rate, pulse oximetry and cardiac rhythm were monitored throughout the procedure and remained stable. The patient tolerated the procedure well without complications. There were no complications. Left Ventricle The left ventricle is severely dilated. The left ventricular wall thickness is mild to moderately increased. The left ventricul ar ejection fraction is severely reduced. The visually estimated ejectio n fraction is 15%. Left Atrium The left atrium is mild to moderately di lated. No thrombus or spontaneous echo contrast seen in the left atrial appendage. Left atrial appendage velocities are normal. No interatrial shunt demonstrated on color doppler. Right Ventricle The right ventricle is not well visualized. The right ventricular systolic function is moderately reduced. Right Atrium Right atrium not well visualized. Mitral Valve Mitral valve structure is normal. There is mild mitral valve regurgitation. Tricuspid Valve Anatomically normal tricuspid valve. The re is trivial tricuspid regurgitation. Aortic Valve The trileaflet aortic valve opening is normal. N o aortic valvular regurgitation. Aorta The aortic root is normal in size. Jessica l ascending aorta. Mild atheromas seen in descending aorta. Pulmonic Valve The pulmonic valve is normal. There is no pulmon ic valve regurgitation. Pericardium/Pleural There is no pericardial effusion. Quality/IAC Study quality is good. Reading Physician:10:41 AM Administrative Closure: 11/29/2021 by: CLINICAL,DEVICE PROXY SERVICE
--- OUTSIDE RECORDS SUMMARY | 2022-04-02 16:14 | XMS_ITS ---
TELEPHONE ANESTHESIA [facility] Encounter Summary Created on:November 21, 2021 Patient:PAUL MICHELE Sex:Male :1945 Author Organization [facility] Address [address] [place], [place] [id number] Care Team Providers Name Role Phone SAKSHI [...] MEDICARE MEDICARE PART Jun 25, PART B [id number] Saumya QUINONES PATIENT (WNR) (M) B 2011 78A 0 AVID MEDICARE MEDICARE PART Sep 25, PART A [id number] Saumya QUINONES PATIENT (WNR) (M) A 2009 78A 0 AVID MEDICARE MEDICARE PART Sep 25, PART A [id number] Saumya MICHELE ATTHOMAS (WNR) (M) A 2009 78A [id number] AVID MEDICARE MEDICARE PART Sep 25, PART B [id number] Saumya MICHELE ATIENT (WNR) (M) B 2009 78A [id number] AVID Selected Encounter This section includes the information on record at [place] for the Encounter. Date/Time Encounter Type Encounter Reason Provider Source Description Nov 21, 2021 Outpatient TELEPHONE ICD-10-CM Z01.818 HANNAH REED 10:00 AM Encounter ANESTHESIA Encounter for other preprocedural examination with Provider Comments: Encounter for other Preprocedural Examination IHE Encounter Template Text not used by [facility] Assessments - Encounter Diagnoses This section includes the primary and secondary diagnoses documented for the Encounter. Date/Time Primary/Secondary Diagnosis Name Provider Source Diagnosis Nov 21, 2021 PRIMARY Encounter for other HANNAH REED [facility]I [facility] 10:00 AM preprocedural HCS examination Nov 21, 2021 SECONDARY Athscl heart HANNAH REED [facility] 10:00 AM disease of crow HCS coronary artery w/o ang pctrs Nov 21, 2021 SECONDARY Chronic obstructive HANNAH REED PATTIARETHA NHIWILLIESharmila [facility] 10:00 AM pulmonary disease, HCS unspecified Nov 21, 2021 SECONDARY Chronic systolic HANNAH REED [facility] 10:00 AM (congestive) heart HCS failure Nov 21, 2021 SECONDARY Other persistent HANNAH REED [facility] 10:00 AM atrial fibrillation HCS Nov 21, 2021 SECONDARY Presence of HANNAH REED [facility] 10:00 AM automatic HCS (implantable) cardiac defibrillator Nov 21, 2021 SECONDARY Tobacco use HANNAH REED [facility] 10:00 AM HCS Nov 21, 2021 SECONDARY Type 2 diabetes HANNAH REED [facility] 10:00 AM mellitus without HCS complications Plan of Treatment: Future Appointments (+ 6 months) and Future Tests (+/- 45 days) The Plan of Treatment section includes future care activities for the patient from all [place] treatmentfacilities. This section includes future appointments and future orders which are active, pending orscheduled.Future Appointments This section includes appointments that were scheduled to occur 6 months from the date of the Encounter, up to a maximum of 20 appointments. The data comes from all [place] treatment facilities. Appointment Date/Time Appointment Type Appointment Facili ty Name Nov 29, 2021 06:30 AM AMBULATORY - NONE [facility] Nov 29, 2021 07:30 AM [facility]ATORY - [facility]IC[facility] Nov 29, 2021 08:00 AM AMBULATORY - [facility]IC[facility] Dec 21, 2021 09:30 AM AMBULATORY - NONE [facility] January 07, 2022 01:30 PM AM[facility]ULATORY - [facility]IC[facility] Feb 05, 2022 07:00 AM AMBULATORY - NONE [facility] Feb 07, 2022 09:30 AM AMBULATORY - NONE [facility] Feb 13, 2022 10:00 AM AMBULATORY - NONE [facility] Mar 21, 2022 09:30 AM AM[facility]ULATORY - [facility] Active, Pending, and Scheduled Orders This section includes a listing of several types of active, pending, and scheduled orders, including clinic medications orders, diagnostic test orders, procedure orders and consult orders; where the start date of the order is 45 days before the date of the Encounter or 45 days after the date of the Encounter. The data comes from all [place] treatment facilities. Test Date/Time Test Type Test Details Facility Name Nov 29, 2021 06:30 AM Laboratory - Blood Bank TYPE & SCREEN - LA B [facility] Order BLOOD SP Dec 15, 2021 12:00 AM Laboratory - Chemistry BASIC METABOLIC MIN [facility] Order PANEL+MG PLASMA SP Lab Results: +/- 30 days of the encounter This section includes the Chemistry and Hematology Lab Results on record with [place] for the patient. Radiology Reports and Pathology [...] [facility] [address] [facility] [address] Performing Lab: [facility] [address] [facility] [address] FINGERSTICK GLUCOSE 284 mg/dL H 70-100 Nov 30, 2021 09:47 AM [facility] ALBUMIN Specim en Type: PLASMA No comment enter ed. Ordering Provid er: ELIUD DINERO Report Released Date/Time: Nov 29, 2021 07:53 PM Reporting Lab: [facility] [address] [facility] [address] Performing Lab: [facility] [address] [facility] [address] ALBUMIN 3.4 g/dL L 3.5-5.2 Nov 30, 2021 09:47 [facility] BASIC METABOLIC Specimen Type: PLASMA AM PANEL+MG No comment enter ed. Ordering Provid er: ANGIE MALHOTRA Report Released Date/Time: Nov 29, 2021 08:12 PM Reporting Lab: [facility] [address] [facility] [address] Performing Lab: [facility] [address] [facility] [address] CREATININE 1.2 mg/dL 0.7-1.2 UREA NITROGEN 18 [...] [facility] [address] [facility] [address] Performing Lab: [facility] [address] WBC 10.61 10*3/uL 4.0-11.0 RBC 4.33 10*6/uL [...] Lab: [facility] [address] [facility] [address] Performing Lab: [facility] [address] [facility] [address] FINGERSTICK GLUCOSE 165 mg/dL H 70-100 Nov 29, 2021 07:35 [facility] FINGERSTICK GLUCOSE Speci men Type: BLOOD PM Comment: [place] Nurse Notified Ordering Provid er: TEAM,CARDS TWO Report Released Date/Time: Nov 29, 2021 07:48 PM Reporting Lab: [facility] [address] [facility] [address] Performing Lab: [facility] [address] [facility] [address] FINGERSTICK GLUCOSE 160 mg/dL H 70-100 Nov 29, 2021 06:52 [facility] FINGERSTICK GLUCOSE Speci men Type: BLOOD PM Comment: [place] Nurse Notified Ordering Provid er: SAKSHI CROUCH Report Released Date/Time: Nov 29, 2021 07:04 PM Reporting Lab: [facility] [address] [facility] [address] Performing Lab: [facility] [address] [facility] [address] FINGERSTICK GLUCOSE 161 mg/dL H 70-100 Nov 29, 2021 04:18 [facility] FINGERSTICK GLUCOSE Speci men Type: BLOOD PM No comment enter ed. Ordering Provid er: IRENE BURNS Report Released Date/Time: Nov 29, 2021 08:08 PM Reporting Lab: [facility] [address] [facility] [address] Performing Lab: [facility] [address] [facility] [address] FINGERSTICK GLUCOSE 179 mg/dL H 70-100 Nov 29, 2021 03:26 [facility] POC ABG/ELECTROLYTES Spec imen Type: ARTERIAL BLOOD PM Comment: Sample Type = ARTERIAL Ordering Provid er: IRENE BURNS Report Released Date/Time: Nov 29, 2021 07:53 PM Reporting Lab: [facility] [address] [facility] [address] Performing Lab: [facility] [address] POC PH 7.321 L 7.35-7.45 POC PCO2 [...] Reporting Lab: [facility] [address] Performing Lab: [facility] [address] FINGERSTICK GLUCOSE 188 mg/dL H 70-100 Nov 29, 2021 02:06 [facility] POC ABG/ELECTROLYTES Spec imen Type: ARTERIAL BLOOD PM Comment: Sample Type = ARTERIAL Ordering Provid er: TEAMCARDS TWO Report Released Date/Time: Nov 29, 2021 07:53 PM Reporting Lab: [facility] [address] Performing Lab: [facility] [address] POC PH 7.313 L 7.35-7.45 POC PCO2 [...] 08:08 PM Reporting Lab: [facility] [address] Performing Lab: [facility] [address] FINGERSTICK GLUCOSE 236 mg/dL H 70-100 Nov 29, 2021 01:52 PM [facility] POC ACT Specim en Type: BLOOD No comment enter ed. Ordering Provid er: TEAM,CARDS TWO Report Released Date/Time: Dec 03, 2021 01:31 PM Reporting Lab: [facility] [address] [facility] [address] Performing Lab: [facility] [address] [facility] [address] POC ACT 135 s 84-139 Nov 29, 2021 01:16 PM [facility] POC ACT Specim en Type: BLOOD No comment enter ed. Ordering Provid er: IRENE BURNS Report Released Date/Time: Dec 03, 2021 01:30 PM Reporting Lab: [facility] [address] [facility] [address] Performing Lab: [facility] [address] [facility] [address] POC ACT 355 s 84-139 Nov 29, 2021 12:49 PM [facility] POC ACT Specim en Type: BLOOD No comment enter ed. Ordering Provid er: IRENE BURNS Report Released Date/Time: Dec 03, 2021 01:30 PM Reporting Lab: [facility] [address] Performing Lab: [facility] [address] [facility] [address] POC ACT 367 s 84-139 Nov 29, 2021 12:48 [facility] POC ABG/ELECTROLYTES Spec imen Type: ARTERIAL BLOOD PM Comment: Sample Type = ARTERIAL Ordering Provid er: IRENE BURNS Report Released Date/Time: Nov 29, 2021 07:53 PM Reporting Lab: [facility] [address] [facility] [address] Performing Lab: [facility] [address] POC PH 7.289 L 7.35-7.45 POC PCO2 [...] [facility] [address] [facility] [address] Performing Lab: [facility] [address] [facility] [address] FINGERSTICK GLUCOSE 186 mg/dL H 70-100 Nov 29, 2021 12:26 PM [facility] POC ACT Specim en Type: BLOOD No comment enter ed. Ordering Provid er: IRENE BURNS Report Released Date/Time: Dec 03, 2021 01:30 PM Reporting Lab: [facility] [address] [facility] [address] Performing Lab: [facility] [address] [facility] [address] POC ACT 367 s 84-139 Nov 29, 2021 11:58 AM [facility] POC ACT Specim en Type: BLOOD No comment enter ed. Ordering Provid er: IRENE BURNS Report Released Date/Time: Dec 03, 2021 01:30 PM Reporting Lab: [facility] [address] [facility] [address] Performing Lab: [facility] [address] [facility] [address] POC ACT 338 s 84-139 Nov 29, 2021 11:53 [facility] FINGERSTICK GLUCOSE Speci men Type: BLOOD AM Comment: Save R esult Ordering Provid er: IRENE BURNS Report Released Date/Time: Nov 29, 2021 08:08 PM Reporting Lab: [facility] [address] [facility] [address] Performing Lab: [facility] [address] [facility] [address] FINGERSTICK GLUCOSE 225 mg/dL H 70-100 Nov 29, 2021 11:30 AM [facility] POC ACT Specim en Type: BLOOD No comment enter ed. Ordering Provid er: IRENE BURNS Report Released Date/Time: Dec 03, 2021 01:30 PM Reporting Lab: [facility] [address] [facility] [address] Performing Lab: [facility] [address] [facility] [address] POC ACT 355 s 84-139 Nov 29, 2021 11:26 [facility] POC ABG/ELECTROLYTES Spec imen Type: ARTERIAL BLOOD AM Comment: Sample Type = ARTERIAL Ordering Provid er: IRENE BURNS Report Released Date/Time: Nov 29, 2021 07:53 PM Reporting Lab: [facility] [address] [facility] [address] Performing Lab: [facility] [address] [facility] [address] POC PH 7.317 L 7.35-7.45 POC PCO2 [...] [facility] [address] [facility] [address] Performing Lab: [facility] [address] [facility] [address] FINGERSTICK GLUCOSE 221 mg/dL H 70-100 Nov 29, 2021 11:02 AM [facility] POC ACT Specim en Type: BLOOD No comment enter ed. Ordering Provid er: IRENE BURNS Report Released Date/Time: Dec 03, 2021 01:30 PM Reporting Lab: [facility] [address] [facility] [address] Performing Lab: [facility] [address] [facility] [address] POC ACT 294 s 84-139 Nov 29, 2021 10:26 AM [facility] POC ACT Specim en Type: BLOOD No comment enter ed. Ordering Provid er: IRENE BURNS Report Released Date/Time: Dec 03, 2021 01:30 PM Reporting Lab: [facility] [address] [facility] [address] Performing Lab: [facility] [address] [facility] [address] POC ACT 329 s 84-139 Nov 29, 2021 10:06 AM [facility] POC ACT Specim en Type: BLOOD No comment enter ed. Ordering Provid er: IRENE BURNS TWO Report Released Date/Time: Dec 03, 2021 01:30 PM Reporting Lab: [facility] [address] [facility] [address] Performing Lab: [facility] [address] [facility] [address] POC ACT 312 s 84-139 Nov 29, 2021 09:58 [facility] POC ABG/ELECTROLYTES Spec imen Type: ARTERIAL BLOOD AM Comment: Sample Type = ARTERIAL Ordering Provid er: IRENE BURNS TWO Report Released Date/Time: Nov 29, 2021 07:53 PM Reporting Lab: [facility] [address] [facility] [address] Performing Lab: [facility] [address] [facility] [address] POC PH 7.334 L 7.35-7.45 POC PCO2 [...] [facility] [address] [facility] [address] Performing Lab: [facility] [address] [facility] [address] FINGERSTICK GLUCOSE 194 mg/dL H 70-100 Nov 29, 2021 09:45 AM [facility] POC ACT Specim en Type: BLOOD No comment enter ed. Ordering Provid er: IRENE BURNS TWO Report Released Date/Time: Dec 03, 2021 01:30 PM Reporting Lab: [facility] [address] [facility] [address] Performing Lab: [facility] [address] [facility] [address] POC ACT 269 s 84-139 Nov 29, 2021 08:59 AM [facility] POC ACT Specim en Type: BLOOD No comment enter ed. Ordering Provid er: TEAM,CARDS TWO Report Released Date/Time: Dec 03, 2021 01:30 PM Reporting Lab: [facility] [address] Performing Lab: [facility] [address] [facility] [address] POC ACT 135 s 84-139 Nov 29, 2021 [facility] COVID-19 AND FLU/RSV Specime n Type: NASOPHARYNGEAL 07:05 AM DIAG PANEL(CEPHEID) Comment: Ce pheid GeneXpert (618) Ordering Provid er: KATHERINE FIGUEROA Report Released Date/Time: Oct 29, 2021 12:22 PM Reporting Lab: [facility] [address] Performing Lab: [facility] [address] [facility] [address] COVID-19 (CEPHEID) Not Detected Not Dete cted [...] [facility] [address] [facility] [address] Performing Lab: [facility] [address] CREATININE 1.4 mg/dL H 0.7-1.2 UREA NITROGEN [...] [facility] [address] [facility] [address] Performing Lab: [facility] [address] WBC 7.40 10*3/uL 4.0-11.0 RBC 5.17 10*6/uL [...] [facility] [address] [facility] [address] Performing Lab: [facility] [address] .INR 1.1 0.8-1.1 .PT 13.1 s H 9.4-12.5 Nov 29, 2021 [facility] ACT PART Specimen Typ e: PLASMA 06:38 AM THROMBO TIME No comment enter ed. Ordering Provid er: KATHERINE FIGUEROA Report Released Date/Time: Oct 29, 2021 12:22 PM Reporting Lab: [facility] [address] [facility] [address] Performing Lab: [facility] [address] [facility] [address] APTT 33.3 s 25.1-36.5 Social History: Smoking Status (Most current) and Tobacco Use (All prior to encounter date) This section includes the most current, and the historical, smoking and tobacco-related health factors from the [place] facility where the Encounter took place.Current Smoking Status This section includes the most current smoking, or tobacco-related health factor, from the [place] facility where the Encounter took place. Date/Time Current Smoking Status Comment [facility] Mar 20, 2021 11:21 AM VA-VAAES TOBACCO USE CURRENT NRT [facility] DECLINE Tobacco Use History This section includes a history of the smoking, or tobacco- related health factors, that were collected on or before the date of the Encounter. The data comes from the [place] facility where the Encounter took place. Date/Time Smoking Status/Tobacco Use Comment [facility] it Nov 15, 2020 10:00 AM VA-TOBACCO DOESNT USE WI 30 MIN [facility] WAKEUP Nov 15, 2020 10:00 AM VA-TOBACCO USE 30 YEARS OR MORE [facility] Nov 15, 2020 10:00 AM VA-TOBACCO USE ADVICE [place] [place] [facility] Nov 15, 2020 10:00 AM VA-TOBACCO USE MOLDING PLASTERER NO [facility] Nov 15, [...] Jun 21, 2019 02:29 PM VA-TOBACCO USE MOLDING PLASTERER NO [facility] Jun 21, [...] Jun 09, 2018 03:48 PM VA-TOBACCO USE MOLDING PLASTERER NO [facility] Jun 09, 2018 03:48 PM VA-TOBACCO USE MED NO [place] [facility] Jun 09, 2018 03:48 PM VA-TOBACCO USE WI 30 MIN OF WAKEUP [facility] Jun 09, 2018 03:48 PM VA-TOBACCO USER EVERY DAY [facility] Jun 20, 2017 07:53 AM CURRENT TOBACCO USER [facility] Jun 19, 2016 08:41 AM CURRENT TOBACCO USER [facility] Jun 21, 2015 08:15 AM CURRENT TOBACCO USER [facility] Mar 22, 2014 10:03 AM CURRENT TOBACCO USER [facility] Mar 25, 2013 11:01 AM CURRENT TOBACCO USER [facility] Feb 05, 2012 08:55 AM CURRENT TOBACCO USER [facility] January 01, 2011 09:26 AM CURRENT TOBACCO USER [facility] Mar 07, 2010 10:02 AM CURRENT TOBACCO USER [facility] Feb 21, 2009 08:17 AM CURRENT TOBACCO USER [facility] Nov 06, 2007 10:02 AM CURRENT TOBACCO USER [facility] January 02, 2007 10:33 AM CURRENT TOBACCO USER [facility] Advance Directives: All historical and current Section Date Range: From patient's date of to the date document was created. This section includes ALL of a patient's completed or amended [place] Advance and Rescinded Directives. The entries below [...] the Encounter. The data comes from all [place] treatment facilities. Date/Time Radiology Report Provider Source Nov 30, 2021 07:05 AM CHEST 2 VIEWS PA AND LAT: MONET LUDWIG [facility] PAUL MICHELE ROBERTO [id number] -[birth year] 9 M Exm Date: NOV 30, 2021@07:05 Req Phys: CHERRY MENDOZA Loc: 3LSOB/ 2@08:05 Img Loc: MAIN X-RAY Service: zzcard sect (Case [id number] COMPLETE) CHEST 2 VIEWS PA AND LAT (R AD Detailed) CPT:30076 Reason for Study: s/p upgrade ICD adding [...] pager listed below: User placing orders pager: [phone] LAST CREATININE 1.4 H (11/29/21) Report Status: Verified Date Reported: NOV 30, 2021 Date Verified: NOV 30, 2021 Senior Devops Engineer E-Sig:/ES/MONET LUDWIG MD, FACR, C CD Report: [...] 29, 2021 06:25 PM CHEST 1 VIEW[facility] PAUL MICHELE [id number] -[birth year], [birth year] 9 M Exm Date: NOV 29, 2021@18:25 Req Phys: CHERRY MENDOZA Pat Loc: [facility] [address] [facility] (Req'g Loc) Img Loc: MAIN X-RAY Service: Unknown (Case [id number] COMPLETE) CHEST 1 VIEW (RAD Detailed) CPT:24178 Reason for Study: s/p upgrade ICD adding [...] pager listed below: User placing orders pager: [phone] LAST CREATININE 1.4 H (11/29/21) Report Status: Verified Date Reported: NOV 29, 2021 Date Verified: NOV 29, 2021 Senior Devops Engineer E-Sig:/ES/MAGDALENE DAVIDSON MD Report: DATE/TIME REGISTERED: 11/29/2021 [...] Encounter. Date/Time Encounter Note(s) Provider Source Nov 21, 2021 09:40 AM ANESTHESIOLOGY CONSULT: HANNAH REED [facility] LOCAL TITLE: ANESTHESIA PREOPERATIVE ASSESSMENT CONSULT STANDARD TITLE: ANESTHESIOLOGY CONSULT DATE OF NOTE: NOV 21, 2021@09:40 ENTRY DATE: NOV 21, 2021@09:40:58 AUTHOR: HANNAH REED EXP COSIGNER: URGENCY: STATUS: COMPLETED Preoperative Anesthesia Assessment Chief Complaint: 76 year old with BMI 29.2 for p reoperative anesthesia visit. This is a phone visit. Phone/VVC Patient Identifiers 2 patient identifier complete. Verified w/ Vete ran correct date & time for appt. Verbalized secure, private location for b [facility] provider & patient to divulge private health information. Verified cu rrent phone number/address/location (Provider to call in the event of emergency, will be routed to local tub operator ). ----History of present illness This is a 76 y/o male being evaluated preoperatively for PVI & generator change for ICD? scheduled on 11/30/19. His PMHx is sig for HTN, NIDDM II, COPD, active tobacco use (1 PPD, 50-60+ P YH), CKD IIIa, CAD s/p VA with angioplasty to RCA in 1993, s/p 3-vessel CABG 10/2010, ICM with single chamber ICD implanted 2011 for primary prevention, EF on EC Jul at 20%, and frequent PVCs (~11% burden). Cardiac EP: 11/05/2021 In December 2020, patient was adm itted to OSH with multiple ICD shocks (6) and found to be in atrial fibrillation, a new diagnosis fo r him. He was started on anticoagulation and [...] possibly triggered by ATP. Dr. Figueroa recommended dofetilid e admission for rhythm control of AFib and consideration of PVI down the road. Patient was admitted 03/20-03/23/21 for dofetilide initiation - dose started at 250 mcg bid given borderline creatinine clearance. He tolerated this well and was succes sfully cardioverted. He unfortunately sustained an ICD shock on 03/30/21 d ue to VT and dofetilide was discontinued due to concern for pro-arrhythmia. PVI has been arranged and is scheduled next month. At rec ent EP f/u it was noted patient was having frequent PVCs on EKG and Ziopatch obtained, showing ~11% overall PVC burden. ----Allergies LISINOPRIL (Nov 09, 2007) COUGH ----VITAL SIGNS HR: 76 (09/21/2021 09:49) BP: 123/75 (09/21/2021 09:49) RR: 18 (09/21/2021 09:49) O2: 98% (09/21/2021:49) Temp: 97.5 F [36.4 C] (09/21/2021:49) HT: 73.5 in [186.7 cm] (09/21/2021:) WT: 223.7 lb [101.47 kg] (09/21/2021:) BMI: 29.2 ----Past Surgical History No personal or family history of anesthesia comp lications 03/23/2021 cardioversion UNKNOWN Anesthesia GA, Meds: prop 70 mg, phenylephri ne 400 mcg Other: s/p 3-vessel CABG 10/2010 s/p ICD '12 ----SOCIAL HISTORY Tobacco: Yes, 1 PPD, started as a teenager - no interest in quitting Alcohol: Yes 2-3 drinks every other day , can taper down 1 week before surgery Substance use: No ----PAST MEDICAL HISTORY 1. Status post left inguinal hernia repair 2. Chronic low back pain 3. Thrombocytopenia (SNOMED CT [id number]) 4. Chronic obstructive pulmonary disease (SN[facility] D CT 38945541) - FEV1/FVC (05/2011) 2.47/3.46. FEV1 58% pred. FEV1% 70. 5. History of adenomatous polyp of colon (SN[facility] D CT [id number]) 6. Type 2 diabetes mellitus 7. Hypertension 8. Coronary artery disease - S/P inferior VA in 1993. - S/P atherectomy RCA in 1993. - S/P CABG x 3 in 2010. 9. Chronic systolic heart failure - S/P ICD placement in 2011. - Echo (12/2020 ANW) EF 23%, LAE, mod global hyp okinesis. 10. Hyperlipidemia 11. Tobacco use 12. Cardiac defibrillator in situ 13. Peripheral neuropathy 14. Persistent atrial fibrillation 15. Unifocal PVCs ----DETAILED PAST MEDICAL HISTORY CARDIAC SYSTEM - HTN: BP (136-107/71-67) - HLD: on statin. - AF: on AC - s/p dofetilide loading with 250 mcg bid (bord lizandro renal function) and successful DCCV February 2021 - dofetilide discontinued March 2021 after ICD shock for VT with concern about dofetilide proarrhythm ia - Frequent PVCs (~11% burden), pending future PV C ablation (possibly January per pt.) - CAD s/p VA with angioplasty (2 stents) to RCA in 1993, s/p 3-vessel CABG 10/2010 - HFrEF (echo EF ~23% at [facility] 12/2020): Chronic - Cardiac Implanted Electrical Device (CIED): PATTI S - ICM with single chamber ICD implanted 2011 fo r primary prevention - last shock per pt. in Mar Denies CP/palpiations/presyncope/syncope/worseni ng dyspnea/orthopnea/edema RESPIRATORY SYSTEM - COPD: moderate - uses albuterol inhale r every other day, no exacerbations in the last year, denies chronic cough EAR NOSE AND THROAT (ENT) SYSTEM - dentures GENITOURINARY SYSTEM - CKD: 3a - EGFR (03/28) 09/21/21 @ 0858 54 L & CREATININE 1.3 H (09/21/21), at baseline ENDOCRINE SYSTEM/METABOLIC - Obesity BMI: 30.2 NIDDM II 09/21/2021 08:55 BLOOD HEMOGLOBIN A1C 8.5 H % 4. 0 - 6.0 INFECTIOUS DISEASE - COVID-19 vaccine complete: Immunization Series Date Facility Reaction Info COVID-19 ([employer]), MRNA, LNP-S, P* 2 11/04/2020 [place] 1 10/14/2020 [place]* 15-point review of systems completed and negativ e other than stated above. ----FUNCTIONAL CAPACITY IN MEASURE OF EXERCISE T OLERANCE BEFORE SURGERY METS: >4 can do 1 FOS w/o CV sx ----MEDICATIONS 1) ACCU-CHEK GUIDE (GLUCOSE) TEST STRIP USE 1 S TRIP ACTIVE TOPICALLY EVERY DAY TO CHECK BLOOD SUGAR--USE WITHIN 3 MINUTES OF REMOVING FROM CONTAINER T EST AT DIFFERENT TIMES OF THE DAY OR DIRECTED 2) ALBUTEROL 90MCG (CFC-F) 200D ORAL INHL INHAL E 2 PUFFS ACTIVE BY INHALATION FOUR TIMES A DAY NEEDED FOR SHORTNESS OF BREATH *SHAKE WELL* (FOR IMMEDIATE RELIEF) - uses every other day 3) APIXABAN 5MG TAB TAKE ONE TABLET BY MOUTH EV ISIAH 12 ACTIVE HOURS TO PREVENT BLOOD CLOTS, STROKE 4) ATORVASTATIN CALCIUM 80MG TAB TAKE ONE-HALF TABLET BY ACTIVE MOUTH AT BEDTIME FOR CHOLESTEROL 5) EMPAGLIFLOZIN 25MG TAB TAKE ONE TABLET BY MO UTH EVERY ACTIVE DAY 6) FUROSEMIDE 40MG TAB [...] 10) METOPROLOL SUCCINATE 200MG SA TAB TAKE ONE- HALF ACTIVE TABLET BY MOUTH EVERY DAY FOR HEART 11) OLODATEROL/TIOTROP 2.5MCG/ACTUAT 60D INH IN [place] 2 ACTIVE PUFFS BY INHALATION EVERY DAY TO PREVENT TROUBL E BREATHING 12) SACUBITRIL 24MG/VALSARTAN 26MG TAB TAKE 1 T ABLET BY ACTIVE MOUTH TWICE A DAY FOR HEART FAILURE 13) SEMAGLUTIDE 1MG/0.75ML INJ PEN 3ML INJECT 1 MG UNDER ACTIVE THE SKIN EVERY WEEK FOR DIABETES -REFRIGERATE -MULTIPLE DOSES PER PEN 14) VITAMIN B COMPLEX CAP TAKE 1 CAPSULE BY FLORY TH EVERY ACTIVE DAY FOR NUTRITION 1) NITROGLYCERIN 0.4MG SL TAB DISSOLVE ONE TABL ET UNDER THE TONGUE ONCE FOR CHEST PAIN * MAY REPEAT SAMI RY 5 MINUTES--NO MORE THAN 3 TOTAL - has never used per pt. 1) Non-VA ASCORBIC ACID 500MG TAB 1000MG EVERY DAY ACTIVE 2) Non-VA MARINE LIPID (FISH OIL) CAP,ORAL MOUT H ACTIVE 3) Non-VA MULTIVITAMINS CAP/TAB MOUTH ACTIVE 4) Non-VA NON VA MED NOT LISTED MISCELLANEOUS C ATS CLAW ACTIVE MOUTH Naltrexone: No Buprenorphine: No ---LABORATORY STUDIES HGB- HGB 16.8 (06/18/21) HCT- HCT 51.9 (06/18/21) WBC- WBC 7.85 (06/18/21) PLT- PLT 98 L (06/18/21) INR- INR - NONE FOUND APTT- APTT____ GLUCOSE- GLUCOSE 173 H (09/21/21) NA- SODIUM 142 (09/21/21) K- POTASSIUM 4.0 (09/21/21) CL- CHLORIDE 107 (09/21/21) CREATINE- CREATININE 1.3 H (09/21/21) BILIRUBIN- BILIRUBIN, TOTAL____ AST- 02/19/2021 12:03 PLASMA AST/SGOT 28 U/L Ref: <= ALT- 02/19/2021 12:03 PLASMA ALT/SGPT 32 U/L Ref: <= GFR- EGFR (03/28) 09/21/21 @ 0858 54 L CREATININE EGFR (CKD-EPI) - NONE FOUND - 5Y A1C- HEMOGLOBIN A1C 8.5 H (09/21/21) Troponin- TROPONIN - NONE FOUND Blood Type- SLT - Lab Tests Selected No selection items chosen for this component. ----DIAGNOSTIC STUDIES - EKG (09/21/21): SR w/occasi onal PVCs, possible L-atrial enlargement, rightward axis, septal infarct, age un determined, nonspecific intraventricular conduction block, T-wave abnormality, consider inferior isc hemia, 78 bpm Compared to previous: no significant change - EKG (03/23/21): SR w/sinus arrhythmia w/occasio nal and consecutive PVCs and fusion complexes, possible L-atrial enla rgement, R-axis deviation, nonspecific intraventricular conduction block, T-wave abnorm ality, consider inferior ischemia, 85 bpm - PULMONARY FUNCTION TEST 11/06/2007: UNITS PRED ACTUAL %PRED PREV1 PREV2 CI FLOWS........................................................................... STANDARD STUDY FVC L 5.29 3.35 63.4 FEV1 L 4.00 2.40 60.0 PF L/SEC 8.230 4.680 56.9 5.26 [id number] L/SEC 3.636 2.040 56.1 1.97 FEV1/FVC % 72 AFTER BRONCHODILATOR FVC L 5.29 3.95 74.7 FEV1 L 4.00 2.93 73.3 PF L/SEC 8.230 7.920 96.2 5.26 [id number] L/SEC 3.636 2.280 62.7 1.97 FEV1/FVC % [...] ANW)2.47/3.46. FEV1 58% pred . FEV1% 70. -Echocardiogram (07/26/21): 1. The left ventricle is moderate to severely di lated. The left ventricular systolic function is severely reduced. The [facility] estimated LV ejection fraction is 20%. There [...] study 12/11/11, LV systolic funciton is reduced. - CARDIAC CATH (05/2011 ANW) LM 75%, LAD 30%, R1 80%, CX 80% ostial, 75% mid at Om1 bifurcation, RCA 35% prox and distal. EF 35% by LV gram. -Ziopatch (Sep 2021): Event monitor (Thoropatch) ECG REPORT 7 day heart monitor Sep 21 through Sep 28, 2021 INDICATION: PVCs HEART RATE MIN 58 AVERAGE 82 MAX 124 PVC% 11.4% PAC% <1% INTERPRETATION 1. The underlying rhythm is sinus with first-deg ree AV block 2. There was1 patient reported event associated with background PVCs 3. There were 1118 episodes of nonsustained VT, the longest lasted 14.1 seconds with an average heart rate of 134 4. There was a single 8 beat run of consecutive PACs 5. There were frequent PVCs with an overall regina en of 11.4% 6. No atrial fibrillation detected ----Risk Stratification Revised Cardiac Risk Index (RCRI): 2 risk factor s or class III CAPRINI score: 7 or high risk ----ASSESSMENT/PLAN This is a 76Y.O. undergoing evaluation f or PVI. The final anesthesia plan will be determined by the providers on the day of . 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 Denies CP/palpiations/presyncope/syncope/worsening dysp evelyn/orthopnea/edema. Pulmonary: Known hx of moderate COPD and active tobacco smoker (1 PPD, 50-60+ PYH). Pt. reports using his albuterol inhaler ev isiah other day. He denies any exacerbations in the last year. Denies SOB/SAHU/c hronic cough. Patient is a diabetic: nicholas triana consider sensitive perioperative insulin protocol for hyperglycemia. Pt. instr ucted to hold his empagliflozin hold x3 days. States he will hold all meds on the am of his procedure which he has discussed w/Cardiac EP. Hematologic: Pt. is anticoagulated on apixaban, Cardiac EP instructions are: HOLD your APIXABAN for 12hours prior to procedur e 11/29/21. Your LAST DOSE will be the morning of 11/28/21. DO N OT TAKE evening dose on 11/28/21. DO NOT TAKE the APIXABAN morning of your procedure . CKD IIIa: Consider avoidance of nephrotoxic meds as able. Anesthesia Plan: Final plan TBD by anesthesia an d surgical teams on DOS. Phone time documentation: Time spent on phone ca ll was between 21-30 minutes /billy/ HANNAH REED DNP, AGNP-C ADULT NAREN NURSE PRACTITIONER Signed: 11/24/2021 15:20
--- OUTSIDE RECORDS SUMMARY | 2022-04-02 16:14 | XMS_ITS | Encounter Summary ---
:1945 Author Organization [facility] Address [address] [place] [id number] Care Team Providers Name Role Phone WILLA [...] MEDICARE MEDICARE PART Jun 25, PART B [id number] Saumya QUINONES PATIENT (WNR) (M) B 2011 78A 0 AVID MEDICARE MEDICARE PART Sep 25, PART A [id number] Saumya QUINONES PATIENT (WNR) (M) A 2009 78A 0 AVID MEDICARE MEDICARE PART Sep 25, PART A [id number] Saumya MICHELE (WNR) (M) A 2009 78A [id number] AVID MEDICARE MEDICARE PART Sep 25, PART B [id number] Saumya MICHELE (WNR) (M) B 2009 [id number] [id number] AVID Selected Encounter This section includes the information on record at [place] for the Encounter. Date/Time Encounter Type Encounter Reason Provider Source Description Nov 19, 2021 DEV INTERROG CIED DEVICES ICD-10-CM I47.2 MANUEL SO 08:17 AM REMOTE 1/2/CARPET LAYER Ventricular tachycardia with Provider Comments: Ventricular tachycardia IHE Encounter Template Text not used by [place] Assessments - Encounter Diagnoses This section includes the primary and secondary diagnoses documented for the Encounter. Date/Time Primary/Secondary Diagnosis Name Provider Source Diagnosis Nov 19, [address] [facility] 08:35 AM tachycardia [facility] Plan of Treatment: Future Appointments (+ 6 months) and Future Tests (+/- 45 days) The Plan of Treatment section includes future care activities for the patient [facility] [place] [facility] This section includes future appointments and future orders which are active, pending orscheduled.Future Appointments This section includes appointments that were scheduled to occur 6 months from the date of the Encounter, up to a maximum of 20 appointments. The data comes from all [place] treatment [facility]. Appointment Date/Time Appointment Type Appointment Facili ty Name Nov 21, 2021 10:00 AM AMBULATORY - SURGERY [facility] S Nov 29, 2021 06:30 AM AMBULATORY - NONE [facility] Nov 29, 2021 07:30 AM AMBULATORY - MEDICINE [facility] Nov 29, 2021 08:00 AM AMBULATORY - MEDICINE [facility] Dec 21, 2021 09:30 AM AMBULATORY - NONE [facility] January 07, 2022 01:30 PM AMBULATORY - MEDICINE [facility] Feb 05, 2022 07:00 AM AMBULATORY - NONE [facility] Feb 07, 2022 09:30 AM AMBULATORY - NONE [facility] Feb 13, 2022 10:00 AM AMBULATORY - NONE [facility] Mar 21, 2022 09:30 AM AMBULATORY - NONE [facility] Active, Pending, and Scheduled Orders This section includes a listing of several types of active, pending, and scheduled orders, including clinic medications orders, diagnostic test orders, procedure orders and consult orders; where the start date of the order is 45 days before the date of the Encounter or 45 days after the date of the Encounter. The data comes from all [facility]. Test Date/Time Test Type Test Details Facility Name Nov 29, 2021 06:30 AM Laboratory - Blood Bank TYPE & SCREEN - LA B [facility] Order BLOOD SP Dec 15, 2021 12:00 AM Laboratory - Chemistry BASIC METABOLIC MIN [facility] Order PANEL+MG PLASMA SP Lab Results: [...] Speci men Type: BLOOD AM Comment: Abram Briceno billyjonathan Nurse Notified Ordering Provid er: IRENE BURNS Report Released Date/Time: Nov 30, 2021 11:46 AM Reporting Lab: [facility] [address] [facility] [address] Performing Lab: [facility] [address] [facility] [address] FINGERSTICK GLUCOSE 284 mg/dL H 70-100 Nov 30, 2021 09:47 AM [facility] ALBUMIN Specim en Type: PLASMA No comment enter ed. Ordering Provid er: ELIUD DINERO Report Released Date/Time: Nov 29, 2021 07:53 PM Reporting Lab: [facility] [address] [facility] [address] Performing Lab: [facility] [address] [facility] [address] ALBUMIN 3.4 g/dL L 3.5-5.2 Nov 30, 2021 09:47 [facility] BASIC METABOLIC Specimen Type: PLASMA AM PANEL+MG No comment enter ed. Ordering Provid er: ANGIE MALHOTRA Report Released Date/Time: Nov 29, 2021 08:12 PM Reporting Lab: [facility] [address] [facility] [address] Performing Lab: [facility] [address] [facility] [address] CREATININE 1.2 mg/dL 0.7-1.2 UREA NITROGEN 18 [...] Lab: [facility] [address] [facility] [address] Performing Lab: [facility] [address] [facility] [address] WBC 10.61 10*3/uL 4.0-11.0 RBC 4.33 10*6/uL [...] Reporting Lab: [facility] [address] [facility] [address] Performing Lab: [facility] [address] [facility] [address] FINGERSTICK GLUCOSE 165 mg/dL H 70-100 Nov 29, 2021 07:35 [facility] FINGERSTICK GLUCOSE Speci men Type: BLOOD PM Comment: Abram rock Nurse Notified Ordering Provid er: TEAM,CARDS TWO Report Released Date/Time: Nov 29, 2021 07:48 PM Reporting Lab: [facility] [address] [facility] [address] Performing Lab: [facility] [address] [facility] [address] FINGERSTICK GLUCOSE 160 mg/dL H 70-100 Nov 29, 2021 06:52 [facility] FINGERSTICK GLUCOSE Speci men Type: BLOOD PM Comment: Abram Welch Notified Ordering Provid er: SAKSHI CROUCH Report Released Date/Time: Nov 29, 2021 07:04 PM Reporting Lab: [facility] [address] [facility] [address] Performing Lab: [facility] [address] [facility] [address] FINGERSTICK GLUCOSE 161 mg/dL H 70-100 Nov 29, 2021 04:18 [facility] FINGERSTICK GLUCOSE Speci men Type: BLOOD PM No comment enter ed. Ordering Provid er: TEAM,CARDS TWO Report Released Date/Time: Nov 29, 2021 08:08 PM Reporting Lab: [facility] [address] [facility] [address] Performing Lab: [facility] [address] FINGERSTICK GLUCOSE 179 mg/dL H 70-100 Nov 29, 2021 03:26 [facility] POC ABG/ELECTROLYTES Spec imen Type: ARTERIAL BLOOD PM Comment: Sample Type = ARTERIAL Ordering Provid er: TEAMCARDS TWO Report Released Date/Time: Nov 29, 2021 07:53 PM Reporting Lab: [facility] [address] Performing Lab: [facility] [facility] [address] POC PH 7.321 L 7.35-7.45 POC PCO2 [...] 08:08 PM Reporting Lab: [facility] [address] Performing Lab: [facility] [address] FINGERSTICK GLUCOSE 188 mg/dL H 70-100 Nov 29, 2021 02:06 [facility] POC ABG/ELECTROLYTES Spec imen Type: ARTERIAL BLOOD PM Comment: Sample Type = ARTERIAL Ordering Provid er: GRANTCARDS TWO Report Released Date/Time: Nov 29, 2021 07:53 PM Reporting Lab: [facility] [address] Performing Lab: [facility] [address] [facility] [address] POC PH 7.313 L 7.35-7.45 POC PCO2 [...] 08:08 PM Reporting Lab: [facility] [address] Performing Lab: [facility] [address] FINGERSTICK GLUCOSE 236 mg/dL H 70-100 Nov 29, 2021 01:52 PM [facility] POC ACT Specim en Type: BLOOD No comment enter ed. Ordering Provid er: IRENE BURNS Report Released Date/Time: Dec 03, 2021 01:31 PM Reporting Lab: [facility] [address] Performing Lab: [facility] [address] POC ACT 135 s 84-139 Nov 29, 2021 01:16 PM [facility] POC ACT Specim en Type: BLOOD No comment enter ed. Ordering Provid er: IRENE BURNS Report Released Date/Time: Dec 03, 2021 01:30 PM Reporting Lab: [facility] [address] Performing Lab: [facility] [address] POC ACT 355 s 84-139 Nov 29, 2021 12:49 PM [facility] POC ACT Specim en Type: BLOOD No comment enter ed. Ordering Provid er: TEAM,CARDS TWO Report Released Date/Time: Dec 03, 2021 01:30 PM Reporting Lab: [facility] [address] [facility] [address] Performing Lab: [facility] [address] [facility] [address] POC ACT 367 s 84-139 Nov 29, 2021 12:48 [facility] POC ABG/ELECTROLYTES Spec imen Type: ARTERIAL BLOOD PM Comment: Sample Type = ARTERIAL Ordering Provid er: IRENE BURNS TWO Report Released Date/Time: Nov 29, 2021 07:53 PM Reporting Lab: [facility] [address] [facility] [address] Performing Lab: [facility] [address] POC PH 7.289 L 7.35-7.45 POC PCO2 [...] Reporting Lab: [facility] [address] [facility] [address] Performing Lab: [facility] [address] [facility] [address] FINGERSTICK GLUCOSE 186 mg/dL H 70-100 Nov 29, 2021 12:26 PM [facility] POC ACT Specim en Type: BLOOD No comment enter ed. Ordering Provid er: IRENE BURNS TWO Report Released Date/Time: Dec 03, 2021 01:30 PM Reporting Lab: [facility] [address] [facility] [address] Performing Lab: [facility] [address] [facility] [address] POC ACT 367 s 84-139 Nov 29, 2021 11:58 AM [facility] POC ACT Specim en Type: BLOOD No comment enter ed. Ordering Provid er: IRENE BURNS Report Released Date/Time: Dec 03, 2021 01:30 PM Reporting Lab: [facility] [address] [facility] [address] Performing Lab: [facility] [address] [facility] [address] POC ACT 338 s 84-139 Nov 29, 2021 11:53 [facility] FINGERSTICK GLUCOSE Speci men Type: BLOOD AM Comment: Save R esult Ordering Provid er: IRENE BURNS Report Released Date/Time: Nov 29, 2021 08:08 PM Reporting Lab: [facility] [address] [facility] [address] Performing Lab: [facility] [address] [facility] [address] FINGERSTICK GLUCOSE 225 mg/dL H 70-100 Nov 29, 2021 11:30 AM [facility] POC ACT Specim en Type: BLOOD No comment enter ed. Ordering Provid er: IRENE BURNS Report Released Date/Time: Dec 03, 2021 01:30 PM Reporting Lab: [facility] [address] [facility] [address] Performing Lab: [facility] [address] [facility] [address] POC ACT 355 s 84-139 Nov 29, 2021 11:26 [facility] POC ABG/ELECTROLYTES Spec imen Type: ARTERIAL BLOOD AM Comment: Sample Type = ARTERIAL Ordering Provid er: IRENE BURNS Report Released Date/Time: Nov 29, 2021 07:53 PM Reporting Lab: [facility] [address] [facility] [address] Performing Lab: [facility] [address] [facility] [address] POC PH 7.317 L 7.35-7.45 POC PCO2 [...] Lab: [facility] [address] [facility] [address] Performing Lab: [facility] [address] [facility] [address] FINGERSTICK GLUCOSE 221 mg/dL H 70-100 Nov 29, 2021 11:02 AM [facility] POC ACT Specim en Type: BLOOD No comment enter ed. Ordering Provid er: IRENE BURNS Report Released Date/Time: Dec 03, 2021 01:30 PM Reporting Lab: [facility] [address] [facility] [address] Performing Lab: [facility] [address] [facility] [address] POC ACT 294 s 84-139 Nov 29, 2021 10:26 AM [facility] POC ACT Specim en Type: BLOOD No comment enter ed. Ordering Provid er: IRENE BUNRS Report Released Date/Time: Dec 03, 2021 01:30 PM Reporting Lab: [facility] [address] [facility] [address] Performing Lab: [facility] [address] [facility] [address] POC ACT 329 s 84-139 Nov 29, 2021 10:06 AM [facility] POC ACT Specim en Type: BLOOD No comment enter ed. Ordering Provid er: IRENE BURNS Report Released Date/Time: Dec 03, 2021 01:30 PM Reporting Lab: [facility] [address] [facility] [address] Performing Lab: [facility] [address] [facility] [address] POC ACT 312 s 84-139 Nov 29, 2021 09:58 [facility] POC ABG/ELECTROLYTES Spec imen Type: ARTERIAL BLOOD AM Comment: Sample Type = ARTERIAL Ordering Provid er: IRENE BURNS Report Released Date/Time: Nov 29, 2021 07:53 PM Reporting Lab: [facility] [address] [facility] [address] Performing Lab: [facility] [address] [facility] [address] POC PH 7.334 L 7.35-7.45 POC PCO2 [...] 08:08 PM Reporting Lab: [facility] [address] Performing Lab: [facility] [address] FINGERSTICK GLUCOSE 194 mg/dL H 70-100 Nov 29, 2021 09:45 AM [facility] POC ACT Specim en Type: BLOOD No comment enter ed. Ordering Provid er: IRENE BURNS TWO Report Released Date/Time: Dec 03, 2021 01:30 PM Reporting Lab: [facility] [address] Performing Lab: [facility] [address] POC ACT 269 s 84-139 Nov 29, 2021 08:59 AM [facility] POC ACT Specim en Type: BLOOD No comment enter ed. Ordering Provid er: IRENE BURNS TWO Report Released Date/Time: Dec 03, 2021 01:30 PM Reporting Lab: [facility] [address] Performing Lab: [facility] [address] POC ACT 135 s 84-139 Nov 29, 2021 [facility] COVID-19 AND FLU/RSV Specime n Type: NASOPHARYNGEAL 07:05 AM DIAG PANEL(CEPHEID) Comment: Ce pheid GeneXpert (618) Ordering Provid er: KATHERINE FIGUEROA Report Released Date/Time: Oct 29, 2021 12:22 PM Reporting Lab: [facility] [address] Performing Lab: [facility] [address] COVID-19 (CEPHEID) Not Detected Not Dete cted [...] 12:22 PM Reporting Lab: [facility] [address] Performing Lab: [facility] [address] CREATININE 1.4 mg/dL H 0.7-1.2 UREA NITROGEN [...] 12:22 PM Reporting Lab: [facility] [address] Performing Lab: [facility] [address] WBC 7.40 10*3/uL 4.0-11.0 RBC 5.17 10*6/uL [...] No comment enter ed. Ordering Provid er: KATEHRINE FIGUEROA Report Released Date/Time: Oct 29, 2021 12:22 PM Reporting Lab: [facility] [address] [facility] [address] Performing Lab: [facility] [address] [facility] [address] .INR 1.1 0.8-1.1 .PT 13.1 s H 9.4-12.5 Nov 29, 2021 [facility] ACT PART Specimen Typ e: PLASMA 06:38 AM THROMBO TIME No comment enter ed. Ordering Provid er: KATHERINE FIGUEROA Report Released Date/Time: Oct 29, 2021 12:22 PM Reporting Lab: [facility] [address] [facility] [address] Performing Lab: [facility] [address] [facility] [address] APTT 33.3 s 25.1-36.5 Social History: Smoking [...] Comment Facility Mar 20, 2021 11:21 AM MI-VAAES TOBACCO USE CURRENT NRT [facility] DECLINE [...] Nov 15, 2020 10:00 AM VA-TOBACCO USE DIVISION ENGINEER NO [facility] Nov 15, 2020 10:00 [...] Jun 21, 2019 02:29 PM VA-TOBACCO USE DIVISION ENGINEER NO [facility] Jun 21, 2019 02:29 [...] Jun 09, 2018 03:48 PM VA-TOBACCO USE DIVISION ENGINEER NO [facility] Jun 09, 2018 03:48 PM VA-TOBACCO USE MED NO [facility] Jun 09, 2018 03:48 PM VA-TOBACCO USE WI 30 MIN OF WAKEUP [facility] Jun 09, 2018 03:48 PM VA-TOBACCO USER EVERY DAY [facility] Jun 20, 2017 07:53 AM CURRENT TOBACCO USER [facility] Jun 19, 2016 08:41 AM [facility] Jun 21, 2015 08:15 AM [facility] Mar 22, 2014 10:03 AM [facility] Mar 25, 2013 11:01 AM [facility] Feb 05, 2012 08:55 AM CURRENT [facility]BACCO [facility]ER [facility] January 01, 2011 09:26 AM CURRENT TOBACCO USER [facility] Mar 07, 2010 10:02 AM CURRENT TOBACCO USER [facility] Feb 21, 2009 08:17 AM CURRENT TOBACCO USER [facility] Nov 06, 2007 10:02 AM CURRENT TOBACCO USER [facility] January 02, 2007 10:33 AM CURRENT TOBACCO USER [facility] Advance Directives: All historical and [...] Mar 06, 2005 ADVANCE DIRECTIVE GANESH RODRIGUEZ [facility] Radiology Reports: +/- 30 days [...] LAT: MONET LUDWIG [facility] PAUL MICHELE [id number] -[birth year] 9 M Exm Date: NOV 30, 2021@07:05 Req Phys: CHERRY MENDOZA Loc: 3LSOB/ 2@08:05 Img Loc: MAIN X-RAY Service: zzcard sect (Case [id number] COMPLETE) CHEST 2 VIEWS PA AND LAT (R AD Detailed) CPT:38110 Reason for Study: s/p upgrade ICD adding [...] pager listed below: User placing orders pager: [phone] LAST CREATININE 1.4 H (11/29/21) Report Status: Verified Date Reported: NOV 30, 2021 Date Verified: NOV 30, 2021 Digital Music Instructor E-Sig:/ES/MONET LUDWIG MD, FACR, C CD Report: [...] 06:25 PM CHEST 1 VIEW: MAGDALENE DAVIDSON [facility] MIC[facility] [id number] -[birth year] 9 M Exm Date: NOV 29, 2021@18:25 Req Phys: CHERRY MENDOZA Pat Loc: [facility] [address] [facility] AY (Req'g Loc) Img Loc: MAIN X-RAY Service: Unknown (Case [id number] COMPLETE) CHEST 1 VIEW (RAD Detailed) CPT:39678 Reason for Study: s/p upgrade ICD adding [...] pager listed below: User placing orders pager: [phone] LAST CREATININE 1.4 H (11/29/21) Report Status: Verified Date Reported: NOV 29, 2021 Date Verified: NOV 29, 2021 Digital Music Instructor E-Sig:/ES/MAGDALENE DAVIDSON MD Report: DATE/TIME REGISTERED: 11/29/2021 [...] Primary Interpreting Staff: MAGDALENE DAVIDSON MD, RADIOLOGIST (Digital Music Instructor) /LUAN Encounter Notes: All associated encounter notes This section contains the clinical notes associated to the Encounter. Date/Time Encounter Note(s) Provider Source Nov 19, 2021 08:17 AM CARDIOLOGY DIAGNOSTIC STUDY NOTE: MANUEL SO [facility] LOCAL TITLE: CARDIOLOGY ELECTROPHYSIOLOGY NOTE STANDARD TITLE: CARDIOLOGY DIAGNOSTIC STUDY NOTE DATE OF NOTE: NOV 19, 2021@08:17 ENTRY DATE: NOV 19, 2021@08:18:02 AUTHOR: MANUEL SO EXP COSIGNER: URGENCY: STATUS: COMPLETED CARDIOLOGY ELECTROPHYSIOLOGY NOTE Has ADDEN DA [facility]'s single chamber Med[employer] ICD via carelink: Device reached ANJANA triggered 11/18/21 Active Outpatient Medications (including Supplie s): Active [...] METOPROLOL SUCCINATE 200MG SA TAB TAKE ONE-H OSWALD ACTIVE TABLET BY MOUTH EVERY DAY FOR [...] LISTED MISCELLANEOUS CA TS CLAW ACTIVE MOUTH 18 Total Medications Contacted patient due to cole rt having triggered and alarm he may be hearing from his device starting yesterday. Patient h ad not heard the alert, but is glad to know in case he hears it tod ay. Patient informed life insurance underwriter that plans were already made for generator change at time of PVI. On rev iew appears that upgrade to dual chamber is planned as w ell to allow for AFib monitoring and discriminators to prevent future inappropriate shocks. . Will relay information to providers of new generators have AF detections on single c hamber devices and also main discrimantor is wavelet on dual chamber devices as well and does not need typically to apply other SVT dicriminators as an FYI. Patient has had 3 VF episodes in the life of the device, two of which were shock terminated and 2 of which were likely in appropriate shocks for AF w ith RVR. Will attach device report. /eb SO RNC STAFF NURSE Signed: 11/19/2021 08:35 11/19/2021 ADDENDUM STATUS: COMPLETED Correction-Confirmed with Mdt and in dual chambe r ICD SVT discriminators are used first not wavelet. /billy/ MANUEL SO RNC STAFF NURSE Signed: 11/19/2021 08:42 11/20/2021 ADDENDUM STATUS: COMPLETED Additional correction, Patient had 8 total VT/VF shocks, and 2 of 3 shock terminated and 0 of 1 pace terminated VT/VF epis odes. /eb SO RNC STAFF NURSE Signed: 11/20/2021 09:04
--- OUTSIDE RECORDS SUMMARY | 2022-04-02 16:14 | XMS_ITS | Encounter Summary ---
:1945 Author Organization Department [facility] Address [address] [place] [id number] Care Team Providers Name Role Phone CROUCH [...] MEDICARE MEDICARE PART Jun 25, PART B [id number] Saumya QUINONES PATIENT (WNR) (M) B 2011 78A 0 AVID MEDICARE MEDICARE PART Sep 25, PART A [id number] Saumya QUINONES PATIENT (WNR) (M) A 2009 78A 0 AVID MEDICARE MEDICARE PART Sep 25, PART A [id number] Saumya MICHELE (WNR) (M) A 2009 78A [id number] AVID MEDICARE MEDICARE PART Sep 25, PART B [id number] Saumya MICHELE ATTHOMAS (WNR) (M) B 2009 78A [id number] AVID Selected Encounter This section includes the information on record at [place] for the Encounter. Date/Time Encounter Type Encounter Description Reason Provider Source Nov 29, 2021 12:00 Outpatient Encounter EVENT (HISTORICAL) AM IHE Encounter Template Text not used by [place] Plan of Treatment: Future Appointments (+ 6 months) and Future Tests (+/- 45 days) The Plan of Treatment section includes [facility] care activities for the [facility] [place] [facility] This section includes future appointments [...] 21, 2021 09:30 AM AMBULATORY - NONE [facility] January 07, 2022 01:30 PM AMBULATORY - MEDICINE [facility] Feb 05, 2022 07:00 AM AMBULATORY - [facility] Feb 07, 2022 09:30 AM AMBULATORY - NONE [facility] Feb 13, 2022 10:00 AM AMBULATORY [place] [...] Bank TYPE & SCREEN - LA B [facility] Order BLOOD SP Dec 15, 2021 12:00 AM Laboratory - Chemistry BASIC METABOLIC MIN [facility] Order PANEL+MG PLASMA SP Lab Results: [...] Reference Range Comment Nov 30, 2021 11:26 [facility] FINGERSTICK GLUCOSE Speci men Type: BLOOD AM Comment: [place] Nurse Notified Ordering Provid er: TEAM,CARDS TWO Report Released Date/Time: Nov 30, 2021 11:46 AM Reporting Lab: [facility] ONE [facility] [address] Performing Lab: [facility] I [facility] [address] FINGERSTICK GLUCOSE 284 mg/dL H 70-100 Nov 30, 2021 09:47 AM [facility] ALBUMIN Specim en Type: PLASMA No comment enter ed. Ordering Provid er: ELIUD DINERO Report Released Date/Time: Nov 29, 2021 07:53 PM Reporting Lab: [facility] [address] [facility] [address] Performing Lab: [facility] [address] [facility] [address] ALBUMIN 3.4 g/dL L 3.5-5.2 Nov 30, 2021 09:47 [facility] BASIC METABOLIC Specimen Type: PLASMA AM PANEL+MG No comment enter ed. Ordering Provid er: ANGIE MALHOTRA Report Released Date/Time: Nov 29, 2021 08:12 PM Reporting Lab: [facility] [address] Performing Lab: [facility] [address] CREATININE 1.2 mg/dL 0.7-1.2 UREA NITROGEN 18 mg/dL 8-26 GLUCOSE 342 mg/dL H 74-100 SODIUM 141 mmol/L 136-145 POTASSIUM 4.3 mmol/L 3.5-5.1 CHLORIDE 108 mmol/L H 98-107 CO2 26 mmol/L 22-29 CALCIUM 8.6 mg/dL 8.4-10.2 MAGNESIUM 1.5 mg/dL L 1.6-2.6 ANION GAP 7 mmol/L 5-15 CREAT EGFR(CKD-EPI) 63 >60 Nov 30, 2021 09:46 AM [facility] CBC Specim en Type: BLOOD No comment enter ed. Ordering Provid er: ANGIE MALHOTRA Report Released Date/Time: Nov 29, 2021 08:12 PM Reporting Lab: [facility] [address] [facility] [address] Performing Lab: [facility] [address] [facility] [address] WBC 10.61 10*3/uL 4.0-11.0 RBC 4.33 10*6/uL L 4.6-6.2 HGB 14.6 g/dL 13.5-17.9 HCT 45.2 41-54 MCV 104.4 fL H 80-100 MCH 33.7 pg H 27-33 MCHC 32.3 g/dL 32.0-37.5 PLT 71 10*3/uL L 150-400 MPV 13.9 fL H 7.4-10.4 RDW 14.7 H 11.5-14.5 IPF 17.8 H 0-10 Nov 30, 2021 06:09 [facility] FINGERSTICK GLUCOSE Speci men Type: BLOOD AM Comment: [place] Nurse Notified Ordering Provid er: IRENE BURNS Report Released Date/Time: Nov 30, 2021 06:32 AM Reporting Lab: [facility] [address] [facility] [address] Performing Lab: [facility] [address] [facility] [address] FINGERSTICK GLUCOSE 165 mg/dL H 70-100 Nov 29, 2021 07:35 [facility] FINGERSTICK GLUCOSE Speci men Type: BLOOD PM Comment: [place] Nurse Notified Ordering Provid er: IRENE BURNS TWO Report Released Date/Time: Nov 29, 2021 07:48 PM Reporting Lab: [facility] [address] [facility] [address] Performing Lab: [facility] [address] [facility] [address] FINGERSTICK GLUCOSE 160 mg/dL H 70-100 Nov 29, 2021 06:52 [facility] FINGERSTICK GLUCOSE Speci men Type: BLOOD PM Comment: [place] Nurse Notified Ordering Provid er: SAKSHI CROUCH Report Released Date/Time: Nov 29, 2021 07:04 PM Reporting Lab: [facility] [address] [facility] [address] Performing Lab: [facility] [address] [facility] [address] FINGERSTICK GLUCOSE 161 mg/dL H 70-100 Nov 29, 2021 04:18 [facility] FINGERSTICK GLUCOSE Speci men Type: BLOOD PM No comment enter ed. Ordering Provid er: IRENE BURNS TWO Report Released Date/Time: Nov 29, 2021 08:08 PM Reporting Lab: [facility] [address] [facility] [address] Performing Lab: [facility] [address] [facility] [address] FINGERSTICK GLUCOSE 179 mg/dL H 70-100 Nov 29, 2021 03:26 [facility] POC ABG/ELECTROLYTES Spec imen Type: ARTERIAL BLOOD PM Comment: Sample Type = ARTERIAL Ordering Provid er: IRENE BURNS TWO Report Released Date/Time: Nov 29, 2021 07:53 PM Reporting Lab: [facility] [address] Performing Lab: [facility] [address] POC PH 7.321 L 7.35-7.45 POC PCO2 [...] mg/dL L 4.50-5.30 Nov 29, 2021 03:24 [facility] FINGERSTICK GLUCOSE Speci men Type: BLOOD PM Comment: Save R esult Ordering Provid er: TEAM,CARDS TWO Report Released Date/Time: Nov 29, 2021 08:08 PM Reporting Lab: [facility] [address] Performing Lab: [facility] [address] FINGERSTICK GLUCOSE 188 mg/dL H 70-100 Nov 29, 2021 02:06 [facility] POC ABG/ELECTROLYTES Spec imen Type: ARTERIAL BLOOD PM Comment: Sample Type = ARTERIAL Ordering Provid er: TEAM,CARDS TWO Report Released Date/Time: Nov 29, 2021 07:53 PM Reporting Lab: [facility] [address] Performing Lab: [facility] [address] POC PH 7.313 L 7.35-7.45 POC PCO2 [...] mg/dL L 4.50-5.30 Nov 29, 2021 02:04 [facility] FINGERSTICK GLUCOSE Speci men Type: BLOOD PM Comment: Save R esult Ordering Provid er: IRENE BURNS Report Released Date/Time: Nov 29, 2021 08:08 PM Reporting Lab: [facility] [address] [facility] [address] Performing Lab: [facility] [address] [facility] [address] FINGERSTICK GLUCOSE 236 mg/dL H 70-100 Nov 29, 2021 01:52 PM [facility] POC ACT Specim en Type: BLOOD No comment enter ed. Ordering Provid er: IRENE BURNS Report Released Date/Time: Dec 03, 2021 01:31 PM Reporting Lab: [facility] [address] [facility] [address] Performing Lab: [facility] [address] [facility] [address] POC ACT 135 s 84-139 Nov 29, 2021 01:16 PM [facility] POC ACT Specim en Type: BLOOD No comment enter ed. Ordering Provid er: IRENE BURNS Report Released Date/Time: Dec 03, 2021 01:30 PM Reporting Lab: [facility] [address] [facility] [address] Performing Lab: [facility] [address] [facility] [address] POC ACT 355 s 84-139 Nov 29, 2021 12:49 PM [facility] POC ACT Specim en Type: BLOOD No comment enter ed. Ordering Provid er: IRENE BURNS Report Released Date/Time: Dec 03, 2021 01:30 PM Reporting Lab: [facility] [address] [facility] [address] Performing Lab: [facility] [address] [facility] [address] POC ACT 367 s 84-139 Nov 29, 2021 12:48 [facility] POC ABG/ELECTROLYTES Spec imen Type: ARTERIAL BLOOD PM Comment: Sample Type = ARTERIAL Ordering Provid er: IRENE BURNS Report Released Date/Time: Nov 29, 2021 07:53 PM Reporting Lab: [facility] [address] [facility] [address] Performing Lab: [facility] [address] [facility] [address] POC PH 7.289 L 7.35-7.45 POC PCO2 [...] 4.7 mg/dL 4.50-5.30 Nov 29, 2021 12:45 [facility] FINGERSTICK GLUCOSE Speci men Type: BLOOD PM Comment: Abram R pranav Ordering Provid er: IRENE BURNS TWO Report Released Date/Time: Nov 29, 2021 08:08 PM Reporting Lab: [facility] [address] [facility] [address] Performing Lab: [facility] [address] [facility] [address] FINGERSTICK GLUCOSE 186 mg/dL H 70-100 Nov 29, 2021 12:26 PM [facility] POC ACT Specim en Type: BLOOD No comment enter ed. Ordering Provid er: IRENE BURNS TWO Report Released Date/Time: Dec 03, 2021 01:30 PM Reporting Lab: [facility] [address] [facility] [address] Performing Lab: [facility] [address] [facility] [address] POC ACT 367 s 84-139 Nov 29, 2021 11:58 AM [facility] POC ACT Specim en Type: BLOOD No comment enter ed. Ordering Provid er: IRENE BURNS TWO Report Released Date/Time: Dec 03, 2021 01:30 PM Reporting Lab: [facility] [address] [facility] [address] Performing Lab: [facility] [address] [facility] [address] POC ACT 338 s 84-139 Nov 29, 2021 11:53 [facility] FINGERSTICK GLUCOSE Speci men Type: BLOOD AM Comment: Save R esult Ordering Provid er: IRENE BURNS TWO Report Released Date/Time: Nov 29, 2021 08:08 PM Reporting Lab: [facility] [address] [facility] [address] Performing Lab: [facility] [address] [facility] [address] FINGERSTICK GLUCOSE 225 mg/dL H 70-100 Nov 29, 2021 11:30 AM [facility] POC ACT Specim en Type: BLOOD No comment enter ed. Ordering Provid er: IRENE BURNS Report Released Date/Time: Dec 03, 2021 01:30 PM Reporting Lab: [facility] [address] Performing Lab: [facility] [address] [facility] [address] POC ACT 355 s 84-139 Nov 29, 2021 11:26 [facility] POC ABG/ELECTROLYTES Spec imen Type: ARTERIAL BLOOD AM Comment: Sample Type = ARTERIAL Ordering Provid er: IRENE BURNS TWO Report Released Date/Time: Nov 29, 2021 07:53 PM Reporting Lab: [facility] [address] [facility] [address] Performing Lab: [facility] [address] POC PH 7.317 L 7.35-7.45 POC PCO2 [...] 4.8 mg/dL 4.50-5.30 Nov 29, 2021 11:06 [facility] FINGERSTICK GLUCOSE Speci men Type: BLOOD AM No comment enter ed. Ordering Provid er: IRENE BURNS Report Released Date/Time: Nov 29, 2021 08:08 PM Reporting Lab: [facility] [address] Performing Lab: [facility] [address] FINGERSTICK GLUCOSE 221 mg/dL H 70-100 Nov 29, 2021 11:02 AM [facility] POC ACT Specim en Type: BLOOD No comment enter ed. Ordering Provid er: IRENE BURNS Report Released Date/Time: Dec 03, 2021 01:30 PM Reporting Lab: [facility] [address] [facility] [address] Performing Lab: [facility] [address] [facility] [address] POC ACT 294 s 84-139 Nov 29, 2021 10:26 AM [facility] POC ACT Specim en Type: BLOOD No comment enter ed. Ordering Provid er: IRENE BURNS Report Released Date/Time: Dec 03, 2021 01:30 PM Reporting Lab: [facility] [address] [facility] [address] Performing Lab: [facility] [address] [facility] [address] POC ACT 329 s 84-139 Nov 29, 2021 10:06 AM [facility] POC ACT Specim en Type: BLOOD No comment enter ed. Ordering Provid er: IRENE BURNS Report Released Date/Time: Dec 03, 2021 01:30 PM Reporting Lab: [facility] [address] [facility] [address] Performing Lab: [facility] [address] [facility] [address] POC ACT 312 s 84-139 Nov 29, 2021 09:58 [facility] POC ABG/ELECTROLYTES Spec imen Type: ARTERIAL BLOOD AM Comment: Sample Type = ARTERIAL Ordering Provid er: IRENE BURNS Report Released Date/Time: Nov 29, 2021 07:53 PM Reporting Lab: [facility] [address] [facility] [address] Performing Lab: [facility] [address] [facility] [address] POC PH 7.334 L 7.35-7.45 POC PCO2 [...] 4.9 mg/dL 4.50-5.30 Nov 29, 2021 09:56 [facility] FINGERSTICK GLUCOSE Speci men Type: BLOOD AM No comment enter ed. Ordering Provid er: IRENE BURNS TWO Report Released Date/Time: Nov 29, 2021 08:08 PM Reporting Lab: [facility] [address] [facility] [address] Performing Lab: [facility] [address] [facility] [address] FINGERSTICK GLUCOSE 194 mg/dL H 70-100 Nov 29, 2021 09:45 AM [facility] POC ACT Specim en Type: BLOOD No comment enter ed. Ordering Provid er: IRENE BURNS Report Released Date/Time: Dec 03, 2021 01:30 PM Reporting Lab: [facility] [address] [facility] [address] Performing Lab: [facility] [address] [facility] [address] POC ACT 269 s 84-139 Nov 29, 2021 08:59 AM [facility] POC ACT Specim en Type: BLOOD No comment enter ed. Ordering Provid er: IRENE BURNS TWO Report Released Date/Time: Dec 03, 2021 01:30 PM Reporting Lab: [facility] [address] [facility] [address] Performing Lab: [facility] [address] [facility] [address] POC ACT 135 s 84-139 Nov 29, 2021 [facility] COVID-19 AND FLU/RSV Specime n Type: NASOPHARYNGEAL 07:05 AM DIAG PANEL(CEPHEID) Comment: Ce pheid GeneXpert (618) Ordering Provid er: KATHERINE FIGUEROA Report Released Date/Time: Oct 29, 2021 12:22 PM Reporting Lab: [facility] [address] [facility] [address] Performing Lab: [facility] [address] [facility] [address] COVID-19 (CEPHEID) Not Detected Not Dete cted INFLUENZA A (PCR) Not Detected Not Detec susanne INFLUENZA B (PCR) Not Detected Not Detec susanne RSV (PCR) Not Detected Not Detected Nov 29, 2021 [facility] BASIC METABOLIC Specimen Typ e: PLASMA 06:38 AM PANEL+MG No comment enter ed. Ordering Provid er: KATHERINE FIGUEROA Report Released Date/Time: Oct 29, 2021 12:22 PM Reporting Lab: [facility] [address] [facility] [address] Performing Lab: [facility] [address] CREATININE 1.4 mg/dL H 0.7-1.2 UREA NITROGEN 23 mg/dL 8-26 GLUCOSE 201 mg/dL H 74-100 SODIUM 143 mmol/L 136-145 POTASSIUM 4.3 mmol/L 3.5-5.1 CHLORIDE 108 mmol/L H 98-107 CO2 28 mmol/L 22-29 CALCIUM 9.9 mg/dL 8.4-10.2 MAGNESIUM 1.9 mg/dL 1.6-2.6 ANION GAP 7 mmol/L 5-15 CREAT EGFR(CKD-EPI) 53 L >60 Nov 29, 2021 06:38 [facility] CBC Specimen Type: BLOOD AM No comment enter ed. Ordering Provid er: KATHERINE FIGUEROA Report Released Date/Time: Oct 29, 2021 12:22 PM Reporting Lab: [facility] [address] Performing Lab: [facility] [address] WBC 7.40 10*3/uL 4.0-11.0 RBC 5.17 10*6/uL 4.6-6.2 HGB 17.6 g/dL 13.5-17.9 HCT 52.7 41-54 MCV 101.9 fL H 80-100 MCH 34.0 pg H 27-33 MCHC 33.4 g/dL 32.0-37.5 PLT 88 10*3/uL L 150-400 MPV 14.3 fL H 7.4-10.4 RDW 14.4 11.5-14.5 IPF 18.0 H 0-10 Nov 29, 2021 [facility] PROTHROMBIN Specimen Typ e: PLASMA 06:38 AM TIME/INR No comment enter ed. Ordering Provid er: KATHERINE FIGUEROA Report Released Date/Time: Oct 29, 2021 12:22 PM Reporting Lab: [facility] [address] Performing Lab: [facility] [address] [facility] [address] .INR 1.1 0.8-1.1 .PT 13.1 s H 9.4-12.5 Nov 29, 2021 [facility] ACT PART Specimen Typ e: PLASMA 06:38 AM THROMBO TIME No comment enter ed. Ordering Provid er: KATHERINE FGIUEROA Report Released Date/Time: Oct 29, 2021 12:22 PM Reporting Lab: [facility] ONE [facility] [address] [facility] [address] Performing Lab: [facility] [address] APTT 33.3 s 25.1-36.5 Vital Signs: All taken on the encounter date This section contains inpatient and outpatient Vital Signs collected on the date of the Encounter. Date/Time Temperature Pulse Blood Respiratory SP02 Pain Height Weight Axel dy Source Pressure Rate Mass Index Nov 29, 98.3 F 96 99/66 18 /min 90 % 0 [place] 2021 11:07 /min mm[Hg] [facility] Nov 29 96 % [place] 2021 08:40 /min [facility] Nov 29, 232 lb 30 [place] 2021 08:38 [facility] Nov 29 112/73 97 % [place] 2021 08:35 /min mm[Hg] [facility] Nov 29, 113/69 90 % [place] 2021 08:15 /min mm[Hg] [facility] Social History: Smoking Status [...] Comment Facility Nov 29, 2021 08:36 PM [place]-[facility] TOBACCO USE CURRENT NRT [facility] ACCEPT Tobacco Use History This section includes a history of the smoking, or tobacco- related health factors, that were collected on or before the date of the Encounter. The data comes from the [place] facility where the Encounter took place. 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 [facility] Nov 15, 2020 10:00 AM VA-TOBACCO USE MED NO [place] [facility] Nov 15, 2020 10:00 AM VA-TOBACCO USER EVERY DAY [facility] Jun 21, 2019 02:29 PM VA-TOBACCO USE 30 YEARS OR MORE [facility] Jun 21, 2019 02:29 PM VA-TOBACCO USE ADVICE [place] [facility] Jun 21, 2019 02:29 PM 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 [facility] Jun 21, 2019 02:29 PM VA-TOBACCO USE MED NO [place] [facility] Jun 21, 2019 02:29 PM VA-TOBACCO USE WI 30 MIN OF WAKEUP [facility] Jun 21, 2019 02:29 PM VA-TOBACCO USER EVERY DAY [facility] Jun 09, 2018 03:48 PM VA-TOBACCO USE 30 YEARS OR MORE [facility] Jun 09, 2018 03:48 PM VA-TOBACCO USE ADVICE [place] [facility] Jun 09, 2018 03:48 PM 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 [facility] Jun 09, 2018 03:48 PM VA-TOBACCO USE MED NO [place] [facility] Jun 09, 2018 03:48 PM VA-TOBACCO USE [place] 30 MIN OF WAKEUP [facility] Jun 09, 2018 03:48 PM VA-TOBACCO USER EVERY DAY [facility] Jun 20, 2017 07:53 AM CURRENT TOBACCO USER NHI COREYJACKELYNSofia [facility] Jun 19, 2016 08:41 AM CURRENT TOBACCO USER NHI COREYCHRISSY [facility] Jun 21, 2015 08:15 AM CURRENT TOBACCO USER NHI COREYCHRISSY [facility] Mar 22, 2014 10:03 AM CURRENT TOBACCO USER NHI COREYCHRISSY [facility] Mar 25, 2013 11:01 AM CURRENT TOBACCO USER NHI COREYCHRISSY [facility] Feb 05, 2012 08:55 AM CURRENT TOBACCO USER NHI COREYCHRISSY [facility] January 01, 2011 09:26 AM CURRENT TOBACCO USER NHI COREYCHRISSY [facility] Mar 07, 2010 10:02 AM CURRENT TOBACCO USER [facility] Feb 21, 2009 08:17 AM CURRENT TOBACCO USER [facility] Nov 06, 2007 10:02 AM CURRENT TOBACCO USER [facility] January 02, 2007 10:33 AM CURRENT TOBACCO USER [facility] Advance Directives: All historical and current [...] Mar 06, 2005 ADVANCE DIRECTIVE GANESH RODRIGUEZ [facility] Radiology Reports: +/- 30 [...] 2 VIEWS PA AND LAT: MONET LUDWIG [facility] PA[place] MICHELE [id number] -[birth year] 9 M Exm Date: NOV 30, 2021@07:05 Req Phys: CHERRY MENDOZA Loc: 3LSOB/ 2@08:05 Img Loc: MAIN X-RAY Service: zzcard sect (Case [id number] COMPLETE) CHEST 2 VIEWS PA AND LAT (R AD Detailed) CPT:95656 Reason for Study: s/p upgrade ICD adding an A l ead Clinical History: Post ICD or Pacemaker: Verify Lead Placement. Laura IS NOT under investigation for COVID-19 or is COVID-19 negative s/p upgrade ICD adding an A lead Responsible pr ovider name and phone number to notify for critical findings if other than user placing the order and pager listed below: User placing orders pager: [phone] LAST CREATININE 1.4 H (11/29/21) Report Status: Verified Date Reported: NOV 30, 2021 Date Verified: NOV 30, 2021 Emergency Telecommunications Dispatcher E-Sig:/[email or web address] [email or web address] MD, FACR, C CD Report: [...] MAGDALENE DAVIDSON [facility] [place] [id number] -[birth year]UL [birth year] 9 M Exm Date: NOV 29, 2021@18:25 Req Phys: CHERRY MENDOZA Pat Loc: [facility] [address] [facility] (Req'g Loc) Img Loc: MAIN X-RAY Service: Unknown (Case [id number] COMPLETE) CHEST 1 VIEW (RAD Detailed) CPT:73127 Reason for Study: s/p upgrade ICD adding an A l ead Clinical History: Immediate Post-Op Pacemaker/ICD placement Laura IS NOT under investigation for COVID-19 or is COVID-19 negative s/p upgrade his ICD to dual chamber (adding an A lead) Responsible provider name and phone number to n otify for critical findings if other than user placing the order a nd pager listed below: User placing orders pager: [phone] LAST CREATININE 1.4 H (11/29/21) Report Status: Verified Date Reported: NOV 29, 2021 Date Verified: NOV 29, 2021 Emergency Telecommunications Dispatcher E-[email or web address] DAVIDSON MD Report: DATE/TIME REGISTERED: 11/29/2021 6:25 [...] Primary Interpreting Staff: MAGDALENE DAVIDSON MD, RADIOLOGIST (Emergency Telecommunications Dispatcher) /LUAN
--- OUTSIDE RECORDS SUMMARY | 2022-04-02 16:14 | XMS_ITS | Encounter Summary ---
:1945 Author Organization [facility] Address [address] [place], [place] [id number] Support Name Relationship Address Phone NIDIA MICHELE Unavailable [phone] [place] [phone] NIDIA MICHELE Unavailable [address] [place] [phone] Insurance Providers: All historical and current Section [...] MEDICARE MEDICARE PART Jun 25, PART B [id number] Saumya QUINONES PATIENT (WNR) (M) B 2011 78A 0 AVID MEDICARE MEDICARE PART Sep 25, PART A [id number] Saumya QUINONES PATIENT (WNR) (M) A 2009 78A 0 AVID MEDICARE MEDICARE PART Sep 25, PART A [id number] Saumya MICHELE ATIENT (WNR) (M) A 2009 [id number] [id number] AVID MEDICARE MEDICARE PART Sep 25, PART B [id number] Saumya MICHELE ATIENT (WNR) (M) B 2009 [id number] [id number] AVID Selected Encounter This section includes the information on record at [place] for the Encounter. Date/Time Encounter Type Encounter Reason Provider Source Description Nov 29, 2021 OFFICE O/P EST NON-OR ICD-10-CM D69.6 ALESIA RIVERA 06:16 PM MINIMAL PROB ANESTHESIA Thrombocytopenia, A PROCEDURES unspecified with Provider Comments: Thrombocytopenia (SCT [id number]) IHE Encounter Template Text not used by [place] Assessments - Encounter Diagnoses This section includes the primary and secondary diagnoses documented for the Encounter. 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 Nov 29, 2021 [facility]OND[facility] obstructive IE A [facility] pulmonary disease, unspecified Nov 29, 2021 SECONDARY Chronic systolic DANIELLE COLES [place] 06:16 PM (congestive) heart IE A [facility] failure Nov 29, 2021 SECONDARY Other persistent DANIELLE COLES [place] 06:16 PM atrial IE A [facility] fibrillation Nov 29, 2021 SECONDARY [facility] automatic IE A [facility] (implantable) cardiac defibrillator Nov 29, 2021 SECOND[address] Type [address] [facility]16 PM mellitus without IE A [facility] complications Plan of Treatment: Future Appointments (+ 6 months) and Future Tests (+/- 45 days) The Plan of Treatment section includes future care activities for the patient [facility] [place] [facility] This section includes future appointments [...] 21, 2021 09:30 AM AMBULATORY - NONE [facility] January 07, 2022 01:30 PM AMBULATORY - MEDICINE [facility] Feb 05, 2022 07:00 AM AMBULATORY - NONE [facility] Feb 07, 2022 09:30 AM AMBULATORY - NONE [facility] Feb 13, 2022 10:00 AM AMBULATORY - NONE [facility] Mar 21, 2022 09:30 AM AMBULATORY [facility] Active, Pending, and Scheduled Orders This section includes a listing of several types of active, pending, and scheduled orders, including clinic medications orders, diagnostic test orders, procedure orders and consult orders; where the start date of the order is 45 days before the date of the Encounter or 45 days after the date of the Encounter. The data comes from all [place] treatment facilities. Test Date/Time Test Type Test Details Facility Name Nov 29, 2021 06:30 AM Laboratory - Blood Bank TYPE & SCREEN - LA B [facility] Order BLOOD SP Dec 15, 2021 12:00 AM Laboratory - Chemistry BASIC METABOLIC MIN [facility] Order PANEL+MG PLASMA SP Lab Results: [...] Reference Range Comment Nov 30, 2021 11:26 [facility] F[place] GLUCOSE Speci men Type: BLOOD AM Comment: [place] Nurse Notified Ordering Provid er: IRENE BURNS TWO Report Released Date/Time: Nov 30, 2021 11:46 AM Reporting Lab: [facility] [address] [facility] [address] Performing Lab: [facility] [address] FINGERSTICK GLUCOSE 284 H 70-100 Nov 30, 2021 09:47 AM [facility] ALBUMIN Specim en Type: PLASMA No comment enter ed. Ordering Provid er: ELIUD DINERO Report Released Date/Time: Nov 29, 2021 07:53 PM Reporting Lab: [facility] [address] [facility] [address] Performing Lab: [facility] [address] ALBUMIN 3.4 L 3.5-5.2 Nov 30, 2021 09:47 [facility] BASIC METABOLIC Specimen Type: PLASMA AM PANEL+MG No comment enter ed. Ordering Provid er: ANGIE MALHOTRA Report Released Date/Time: Nov 29, 2021 08:12 PM Reporting Lab: [facility] [address] [facility] [address] Performing Lab: [facility] [address] CREATININE 1.2 0.7-1.2 UREA NITROGEN 18 8-26 GLUCOSE 342 H 74-100 SODIUM 141 136-145 POTASSIUM 4.3 3.5-5.1 CHLORIDE 108 H 98-107 CO2 26 22-29 CALCIUM 8.6 8.4-10.2 MAGNESIUM 1.5 L 1.6-2.6 ANION GAP 7 5-15 CREAT EGFR(CKD-EPI) 63 >60 Nov 30, 2021 09:46 AM [facility] CBC Specim en Type: BLOOD No comment enter ed. Ordering Provid er: ANGIE MALHOTRA Report Released Date/Time: Nov 29, 2021 08:12 PM Reporting Lab: [facility] [address] [facility] [address] Performing Lab: [facility] [address] [facility] [address] WBC 10.61 4.0-11.0 RBC 4.33 L 4.6-6.2 HGB 14.6 13.5-17.9 HCT 45.2 41-54 MCV 104.4 H 80-100 MCH 33.7 H 27-33 MCHC 32.3 32.0-37.5 PLT 71 L 150-400 MPV 13.9 H 7.4-10.4 RDW 14.7 H 11.5-14.5 IPF 17.8 H 0-10 Nov 30, 2021 06:09 [facility] F[place] GLUCOSE Speci men Type: BLOOD AM Comment: [place] Nurse Notified Ordering Provid er: IRENE BURNS TWO Report Released Date/Time: Nov 30, 2021 06:32 AM Reporting Lab: [facility] [address] [facility] [address] Performing Lab: [facility] [address] [place] GLUCOSE 165 H 70-100 Nov 29, 2021 07:35 [facility] [place] GLUCOSE Speci men Type: BLOOD PM Comment: [place] Nurse Notified Ordering Provid er: IRENE BURNS TWO Report Released Date/Time: Nov 29, 2021 07:48 PM Reporting Lab: [facility] [address] [facility] [address] Performing Lab: [facility] [address] [facility] [address] [place] GLUCOSE 160 H 70-100 Nov 29, 2021 06:52 [facility] F[place] GLUCOSE Speci men Type: BLOOD PM Comment: [place] Nurse Notified Ordering Provid er: SAKSHI CROUCH Report Released Date/Time: Nov 29, 2021 07:04 PM Reporting Lab: [facility] [address] [facility] [address] Performing Lab: [facility] [address] [place] GLUCOSE 161 H 70-100 Nov 29, 2021 04:18 [facility] F[place]ICK GLUCOSE Speci men Type: BLOOD PM No comment enter ed. Ordering Provid er: IRENE BURNS TWO Report Released Date/Time: Nov 29, 2021 08:08 PM Reporting Lab: [facility] [address] Performing Lab: [facility] [address] F[place]ICK GLUCOSE 179 H 70-100 Nov 29, 2021 03:26 [facility] POC ABG/ELECTROLYTES Spec imen Type: ARTERIAL BLOOD PM Comment: Sample Type = ARTERIAL Ordering Provid er: IRENE BURNS TWO Report Released Date/Time: Nov 29, 2021 07:53 PM Reporting Lab: [facility] [address] Performing Lab: [facility] [address] POC PH 7.321 L 7.35-7.45 POC PCO2 46.0 H 35.00-45.00 POC PO2 103 80.0-105.0 POC TCO2 25 23.0-27.0 POC HCO3 23.8 22.0-26.0 POC BE ECT -2 -2 POC SO2 97 95-98 POC SODIUM 145 138.0-146.0 POC POTASSIUM 3.5 3.50-5.00 POC HGB 16.0 12.00-17.00 POC HCT 47 38.0-51.0 POC IONIZED CALCIUM 4.2 L 4.50-5.30 Nov 29, 2021 03:24 [facility] F[place] GLUCOSE Speci men Type: BLOOD PM Comment: Save R esult Ordering Provid er: GRANTCARDS TWO Report Released Date/Time: Nov 29, 2021 08:08 PM Reporting Lab: [facility] [address] Performing Lab: [facility] [address] [place] GLUCOSE 188 H 70-100 Nov 29, 2021 02:06 [facility] POC ABG/ELECTROLYTES Spec imen Type: ARTERIAL BLOOD PM Comment: Sample Type = ARTERIAL Ordering Provid er: IRENE BURNS TWO Report Released Date/Time: Nov 29, 2021 07:53 PM Reporting Lab: [facility] [address] Performing Lab: [facility] [facility] [address] POC PH 7.313 L 7.35-7.45 POC PCO2 48.4 H 35.00-45.00 POC PO2 93 80.0-105.0 POC TCO2 26 23.0-27.0 POC HCO3 24.5 22.0-26.0 POC BE ECT -2 -2 POC SO2 96 95-98 POC SODIUM 144 138.0-146.0 POC POTASSIUM 3.5 3.50-5.00 POC HGB 16.3 12.00-17.00 POC HCT 48 38.0-51.0 POC IONIZED CALCIUM 4.3 L 4.50-5.30 Nov 29, 2021 02:04 [facility] FINGERSTICK GLUCOSE Speci men Type: BLOOD PM Comment: Save R esult Ordering Provid er: IRENE BURNS Report Released Date/Time: Nov 29, 2021 08:08 PM Reporting Lab: [facility] [address] Performing Lab: [facility] [address] F[place] GLUCOSE 236 H 70-100 Nov 29, 2021 01:52 PM [facility] POC ACT Specim en Type: BLOOD No comment enter ed. Ordering Provid er: IRENE BURNS TWO Report Released Date/Time: Dec 03, 2021 01:31 PM Reporting Lab: [facility] [address] Performing Lab: [facility] [address] POC ACT 135 84-139 Nov 29, 2021 01:16 PM [facility] POC ACT Specim en Type: BLOOD No comment enter ed. Ordering Provid er: IRENE BURNS TWO Report Released Date/Time: Dec 03, 2021 01:30 PM Reporting Lab: [facility] [address] Performing Lab: [facility] [address] POC ACT 355 84-139 Nov 29, 2021 12:49 PM [facility] POC ACT Specim en Type: BLOOD No comment enter ed. Ordering Provid er: IRENE BURNS TWO Report Released Date/Time: Dec 03, 2021 01:30 PM Reporting Lab: [facility] [address] [facility] [address] Performing Lab: [facility] [address] [facility] [address] POC ACT 367 84-139 Nov 29, 2021 12:48 [facility] POC ABG/ELECTROLYTES Spec imen Type: ARTERIAL BLOOD PM Comment: Sample Type = ARTERIAL Ordering Provid er: IRENE BURNS TWO Report Released Date/Time: Nov 29, 2021 07:53 PM Reporting Lab: [facility] [address] [address] [facility] [address] Performing Lab: [facility] [address] POC PH 7.289 L 7.35-7.45 POC PCO2 52.6 H 35.00-45.00 POC PO2 86 80.0-105.0 POC TCO2 27 23.0-27.0 POC HCO3 25.2 22.0-26.0 POC BE ECT -1 -2 POC SO2 95 95-98 POC SODIUM 145 138.0-146.0 POC POTASSIUM 3.2 L 3.50-5.00 POC HGB 16.7 12.00-17.00 POC HCT 49 38.0-51.0 POC IONIZED CALCIUM 4.7 4.50-5.30 Nov 29, 2021 12:45 [facility] FINGER[place] GLUCOSE Speci men Type: BLOOD PM Comment: Save R esult Ordering Provid er: IRENE BURNS TWO Report Released Date/Time: Nov 29, 2021 08:08 PM Reporting Lab: [facility] [address] [facility] [address] Performing Lab: [facility] [address] [place] GLUCOSE 186 H 70-100 Nov 29, 2021 12:26 PM [facility] POC ACT Specim en Type: BLOOD No comment enter ed. Ordering Provid er: IRENE BURNS TWO Report Released Date/Time: Dec 03, 2021 01:30 PM Reporting Lab: [facility] [address] Performing Lab: [facility] [address] POC ACT 367 84-139 Nov 29, 2021 11:58 AM [facility] POC ACT Specim en Type: BLOOD No comment enter ed. Ordering Provid er: IRENE BURNS TWO Report Released Date/Time: Dec 03, 2021 01:30 PM Reporting Lab: [facility] [address] [facility] [address] Performing Lab: [facility] [address] [facility] [address] POC ACT 338 84-139 Nov 29, 2021 11:53 [facility] FINGER[place]ICK GLUCOSE Speci men Type: BLOOD AM Comment: Save R esult Ordering Provid er: IRENE BURNS Report Released Date/Time: Nov 29, 2021 08:08 PM Reporting Lab: [facility] [address] [facility] [address] Performing Lab: [facility] [address] [facility] [address] [place] GLUCOSE 225 H 70-100 Nov 29, 2021 11:30 AM [facility] POC ACT Specim en Type: BLOOD No comment enter ed. Ordering Provid er: IRENE BURNS Report Released Date/Time: Dec 03, 2021 01:30 PM Reporting Lab: [facility] [address] [facility] [address] Performing Lab: [facility] [address] POC ACT 355 84-139 Nov 29, 2021 11:26 [facility] POC ABG/ELECTROLYTES Spec imen Type: ARTERIAL BLOOD AM Comment: Sample Type = ARTERIAL Ordering Provid er: IRENE BURNS TWO Report Released Date/Time: Nov 29, 2021 07:53 PM Reporting Lab: [facility] [facility] [address] Performing Lab: [facility] [address] POC PH 7.317 L 7.35-7.45 POC PCO2 52.3 H 35.00-45.00 POC PO2 81 80.0-105.0 POC TCO2 28 H 23.0-27.0 POC HCO3 26.8 H 22.0-26.0 POC BE ECT 1 -2 POC SO2 94 L 95-98 POC SODIUM 143 138.0-146.0 POC POTASSIUM 3.5 3.50-5.00 POC HGB 17.3 H 12.00-17.00 POC HCT 51 38.0-51.0 POC IONIZED CALCIUM 4.8 4.50-5.30 Nov 29, 2021 11:06 [facility] FINGER[place] GLUCOSE Speci men Type: BLOOD AM No comment enter ed. Ordering Provid er: IRENE BURNS TWO Report Released Date/Time: Nov 29, 2021 08:08 PM Reporting Lab: [facility] [address] [facility] [address] Performing Lab: [facility] [address] [facility] [address] [place] GLUCOSE 221 H 70-100 Nov 29, 2021 11:02 AM [facility] POC ACT Specim en Type: BLOOD No comment enter ed. Ordering Provid er: IRENE BURNS Report Released Date/Time: Dec 03, 2021 01:30 PM Reporting Lab: [facility] [address] [facility] [address] Performing Lab: [facility] [address] [facility] [address] POC ACT 294 84-139 Nov 29, 2021 10:26 AM [facility] POC ACT Specim en Type: BLOOD No comment enter ed. Ordering Provid er: IRENE BURNS Report Released Date/Time: Dec 03, 2021 01:30 PM Reporting Lab: [facility] [facility] [address] Performing Lab: [facility] [facility] [address] POC ACT 329 84-139 Nov 29, 2021 10:06 AM [facility] POC ACT Specim en Type: BLOOD No comment enter ed. Ordering Provid er: IRENE BURNS Report Released Date/Time: Dec 03, 2021 01:30 PM Reporting Lab: [facility] [address] [facility] [address] Performing Lab: [facility] [address] [facility] [address] POC ACT 312 84-139 Nov 29, 2021 09:58 [facility] POC ABG/ELECTROLYTES Spec imen Type: ARTERIAL BLOOD AM Comment: Sample Type = ARTERIAL Ordering Provid er: IRENE BURNS Report Released Date/Time: Nov 29, 2021 07:53 PM Reporting Lab: [facility] [address] [facility] [address] Performing Lab: [facility] [address] [facility] [address] POC PH 7.334 L 7.35-7.45 POC PCO2 48.7 H 35.00-45.00 POC PO2 96 80.0-105.0 POC TCO2 27 23.0-27.0 POC HCO3 25.9 22.0-26.0 POC BE ECT 0 -2 POC SO2 97 95-98 POC SODIUM 143 138.0-146.0 POC POTASSIUM 4.1 3.50-5.00 POC HGB 17.3 H 12.00-17.00 POC HCT 51 38.0-51.0 POC IONIZED CALCIUM 4.9 4.50-5.30 Nov 29, 2021 09:56 [facility] FINGERSTICK GLUCOSE Speci men Type: BLOOD AM No comment enter ed. Ordering Provid er: IRENE BURNS Report Released Date/Time: Nov 29, 2021 08:08 PM Reporting Lab: [facility] [address] [address] Performing Lab: [facility] [address] [place] GLUCOSE 194 H 70-100 Nov 29, 2021 09:45 AM [facility] POC ACT Specim en Type: BLOOD No comment enter ed. Ordering Provid er: IRENE BURNS Report Released Date/Time: Dec 03, 2021 01:30 PM Reporting [facility]: [facility] [address] Performing Lab: [facility] [address] POC ACT 269 84-139 Nov 29, 2021 08:59 AM [facility] POC ACT Specim en Type: BLOOD No comment enter ed. Ordering Provid er: IRENE BURNS Report Released Date/Time: Dec 03, 2021 01:30 PM Reporting Lab: [facility] [address] [address] Performing Lab: [facility] [address] [address] [address] POC ACT 135 84-139 Nov 29, 2021 [facility] COVID-19 AND FLU/RSV Specime n Type: NASOPHARYNGEAL 07:05 AM DIAG PANEL(CEPHEID) Comment: [place]og[place] pheid GeneXpert (618) Ordering Provid er: KATHERINE FIGUEROA Report Released Date/Time: Oct 29, 2021 12:22 PM Reporting Lab: [facility] [address] [address] [address] Performing Lab: [facility] [address] COVID-19 (CEPHEID) Not Detected Not Dete cted INFLUENZA A (PCR) Not Detected Not Detec susanne INFLUENZA B (PCR) Not Detected Not Detec susanne RSV (PCR) Not Detected Not Detected Nov 29, 2021 [facility] ACT PART Specimen Typ e: PLASMA 06:38 AM THROMBO TIME No comment enter ed. Ordering Provid er: KATHERINE FIGUEROA Report Released Date/Time: Oct 29, 2021 12:22 PM Reporting Lab: [facility] [address] [facility] [address] Performing Lab: [facility] [address] APTT 33.3 25.1-36.5 Nov 29, 2021 [facility] PROTHROMBIN Specimen Typ e: PLASMA 06:38 AM TIME/INR No comment enter ed. Ordering Provid er: KATHERINE FIGUEROA Report Released Date/Time: Oct 29, 2021 12:22 PM Reporting Lab: [facility] [address] Performing Lab: [facility] [address] .INR 1.1 0.8-1.1 .PT 13.1 H 9.4-12.5 Nov 29, 2021 [facility] BASIC METABOLIC Specimen Typ e: PLASMA 06:38 AM PANEL+MG No comment enter ed. Ordering Provid er: KATHERINE FIGUEROA Report Released Date/Time: Oct 29, 2021 12:22 PM Reporting Lab: [facility] [facility] [address] Performing Lab: [facility] [address] CREATININE 1.4 H 0.7-1.2 UREA NITROGEN 23 8-26 GLUCOSE 201 H 74-100 SODIUM 143 136-145 POTASSIUM 4.3 3.5-5.1 CHLORIDE 108 H 98-107 CO2 28 22-29 CALCIUM 9.9 8.4-10.2 MAGNESIUM 1.9 1.6-2.6 ANION GAP 7 5-15 CREAT EGFR(CKD-EPI) 53 L >60 Nov 29, 2021 06:38 [facility] CBC Specimen Type: BLOOD AM No comment enter ed. Ordering Provid er: KATHERINE FIGUEROA Report Released Date/Time: Oct 29, 2021 12:22 PM Reporting Lab: [facility] [address] Performing Lab: [facility] [address] WBC 7.40 4.0-11.0 RBC 5.17 4.6-6.2 HGB [...] 0 [place] 2021 11:07 /min mm[Hg] [facility] Nov 29 96 % [place] 2021 08:40 /min [facility] Nov 29, 232 lb 30 [place] 2021 08:38 [facility] Nov 29 112/73 97 % [place] 2021 08:35 /min mm[Hg] [facility] Nov 29 95 113/69 90 % [place] 2021 08:15 /min mm[Hg] [facility] Social History: Smoking Status (Most current) [...] Comment Facility Nov 29, 2021 08:36 PM [place] TOBACCO USE CURRENT NRT [facility] ACCEPT Tobacco Use History This section includes a history of the smoking, or tobacco- related health factors, that were collected on or before the date of the Encounter. The data comes from the [place] facility where the Encounter took place. Date/Time Smoking Status/Tobacco Use Comment [facility] Mar 20, 2021 11:21 AM [place] TOBACCO USE CURRENT NRT [facility] DECLINE Nov 15, 2020 10:00 AM [facility] DOESNT USE WI 30 MIN [facility] WAKEUP Nov 15, 2020 10:00 AM VA-TOBACCO USE 30 YEARS OR MORE [facility] Nov 15, 2020 10:00 AM [place]-TOBACCO USE ADVICE [place] [facility] Nov 15, 2020 10:00 AM VA-TOBACCO USE BOAT BUFFER PLASTIC NO [facility] Nov 15, 2020 [...] Jun 21, 2019 02:29 PM VA-TOBACCO USE BOAT BUFFER PLASTIC NO [facility] Jun 21, 2019 [...] Jun 09, 2018 03:48 PM VA-TOBACCO USE BOAT BUFFER PLASTIC NO [facility] Jun 09, 2018 03:48 PM VA-TOBACCO USE MED NO [place] [facility] Jun 09, 2018 03:48 PM VA-TOBACCO USE WI 30 MIN OF WAKEUP [facility] Jun 09, 2018 03:48 PM VA-TOBACCO USER EVERY DAY [facility] Jun 20, 2017 07:53 AM CURRENT TOBACCO USER [facility] Jun 19, 2016 08:41 AM CURRENT TOBACCO USER [facility] Jun 21, 2015 08:15 AM CURRENT TOBACCO USER [facility] Mar 22, 2014 10:03 AM CURRENT TOBACCO USER [facility] Mar 25, 2013 11:01 AM CURRENT TOBACCO USER [facility] Feb 05, 2012 08:55 AM CURRENT TOBACCO USER [facility] January 01, 2011 09:26 AM CURRENT TOBACCO USER [facility] Mar 07, 2010 10:02 AM CURRENT TOBACCO USER [facility] Feb 21, 2009 08:17 AM CURRENT TOBACCO USER [facility] Nov 06, 2007 10:02 AM CURRENT TOBACCO USER [facility] January 02, 2007 10:33 AM CURRENT TOBACCO USER [facility] Advance Directives: All historical and [...] ADVANCE DIRECTIVE GANESH RODRIGUEZ [facility] Radiology Reports: +/- 30 days [...] the Encounter. The data comes from all [place] treatment facilities. Date/Time Radiology Report Provider Source Nov 30, 2021 07:05 AM CHEST 2 VIEWS PA AND LAT: MONET LUDWIG [facility] [place] [id number] -JUL 03, 194 7 M Exm Date: NOV 30, 2021@07:05 Req Phys: CHERRY MENDOZA Loc: 3LSOB/ 2@08:05 Img Loc: MAIN X-RAY Service: zzcard sect (Case [id number] COMPLETE) CHEST 2 VIEWS PA AND LAT (R AD Detailed) CPT:57557 Reason for Study: s/p upgrade ICD adding [...] pager listed below: User placing orders pager: [phone] LAST CREATININE 1.4 H (11/29/21) Report Status: Verified Date Reported: NOV 30, 2021 Date Verified: NOV 30, 2021 [employer]ish[employer] Salesperson E-Sig:/ES/MONET LUDWIG MD, FACR, C CD Report: [...] MAGDALENE DAVIDSON [facility] [place] [id number] -[birth year] 9 M Exm Date: NOV 29, 2021@18:25 Req Phys: CHERRY MENDOZA Pat Loc: [facility] [address] [facility] (Req'g Loc) Img Loc: MAIN X-RAY Service: Unknown (Case [id number] COMPLETE) CHEST 1 VIEW (RAD Detailed) CPT:07247 Reason for Study: s/p upgrade ICD adding an A l ead Clinical History: Immediate Post-Op Pacemaker/ICD placement [place] NOT under investigation for COVID-19 or is COVID-19 negative s/p upgrade his ICD to dual chamber (adding an A lead) Responsible provider name and phone number to n otify for critical findings if other than user placing the order a nd pager listed below: User placing orders pager: [phone] LAST CREATININE 1.4 H (11/29/21) Report Status: Verified Date Reported: NOV 29, 2021 Date Verified: NOV 29, 2021 [employer] Salesperson E-Sig:/ES/MAGDALENE DAVIDSON MD Report: DATE/TIME REGISTERED: 11/29/2021 [...] Primary Interpreting Staff: MAGDALENE DAVIDSON MD, RADIOLOGIST ([employer] Salesperson) /LUAN Encounter Notes: All associated encounter notes This section contains the clinical notes associated to the Encounter. Date/Time Encounter Note(s) Provider Source Nov 29, 2021 07:01 PM NURSING TRANSFER SUMMARIZATION NOTE: VIRI CEBALLOS [facility] LOCAL TITLE: KATINA PACU TRANSFER NOTE STANDARD TITLE: NURSING TRANSFER SUMMARIZATION N OTE DATE OF NOTE: NOV 29, 2021@19:01 ENTRY DATE: NOV 29, 2021@18:43:22 AUTHOR: VIRI COYNE EXP COSIGNER: URGENCY: STATUS: COMPLETED PACU Transfer Note Status Post: A-flutter, A-fi b ablation, generator change & lead placement (ICD) Patient's Infection Control Status: Other:Standa rd Pertinent History: HTN, DM, COPD, smoker, CKD II I, ICD, EF 10%, CABG x3, DE Anesthesia Type: General If block used estimated time to wear off: Hrs. Estimated Blood Loss: 25 Crystalloid (OR/PACU): 3841/100 Colloid (OR/PACU): Medications Given in OR: Zofran 4 mg Fentanyl 250 mcg Other: Ancef 2 gm Medications Given in PACU: Other:Ancef 2gm Discharging Anesthesiologist: Tho Sargent Current Vital Signs: Temperature: 36.7 C BP: 114/60, HR: 92 Respiratory Rate: 18 0xygen 3 liters Nasal Dina tasneem Oxygen Saturation: 96% Heart Rhythm: SR, BBB Pain: Denies pain Neuro: A&O, moves all extremities CV: SR, BBB, 2 PIV, Art Line D/C 1845, Right IJ D/C'd Respiratory: on 3L NC, no signs of distress GI: Denies N/V : Amount:cc at Urine Output (OR/PACU): 375 cc Urine Source: Fol ey Dressings: Left chest site gauze dsg, scant blee ding, dsg intact Right groin site - gauze dsg, soft on palpation, C/D/I Left groin dsg Gauze dsg, C/D/I, soft on palpati on Drains: None Integrative Therapies: None Skin: Intact Pertinent labs:FBS 161 Transfer to: Condition: Stable Other pertinent information: Off BEDREST at 1800 RFV 11 fr, 7 fr, perclose LFV 9 fr, 6 fr, percose Last ACT 135 (baseline) /billy/ VIRI COYNE REGISTERED NURSE Signed: 11/29/2021 19:02 Nov 29, 2021 06:16 PM ANESTHESIOLOGY NOTE: ERLIN COLES [facility] LOCAL TITLE: ANESTHESIA NON OR PROCEDURE NOTE STANDARD TITLE: ANESTHESIOLOGY NOTE DATE OF NOTE: NOV 29, 2021@18:16 ENTRY DATE: NOV 29, 2021@18:17:03 AUTHOR: ERLIN COLES COSIGNER: URGENCY: STATUS: COMPLETED Prinicipal Procedure: Cariac Ablation Location of Procedure: [employer] 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
--- OUTSIDE RECORDS SUMMARY | 2022-04-02 16:14 | XMS_ITS | Encounter Summary ---
:1945 Author Organization Department [facility] Address [address] [place] [address] Support Name Relationship Address Phone NIDIA MICHELE Unavailable [address] [phone] [address] [phone] NIDIA MICHELE Unavailable [address] [phone] [address] [phone] Insurance Providers: All historical and current Section [...] MEDICARE MEDICARE PART Jun 25, PART B [id number] Saumya QUINONES PATIENT (WNR) (M) B 2011 78A 0 AVID MEDICARE MEDICARE PART Sep 25, PART A [id number] Saumya QUINONES PATIENT (WNR) (M) A 2009 78A 0 AVID MEDICARE MEDICARE PART Sep 25, PART A [id number] Saumya MICHELE (WNR) (M) A 2009 78A [phone] AVID MEDICARE MEDICARE PART Sep 25, PART B [id number] Saumya MICHELE (WNR) (M) B 2009 78A [phone] AVID Selected Encounter This section includes the information on record at [place] for the Encounter. Date/Time Encounter Type Encounter Reason Provider Source Description Nov 29, 2021 [facility] EVAL CIED DEVICES ICD-10-CM I51.7 WINIFRED SO 09:00 AM IMPLANTABLE DFB Cardiomegaly with Provider Comments: Cardiomegaly IHE Encounter Template Text not used by [facility] Assessments - Encounter Diagnoses This section includes the primary and secondary diagnoses documented for the Encounter. Date/Time Primary/Secondary Diagnosis Name Provider Source Diagnosis Nov 29, 2021 PRIMARY Cardiomegaly WINIFRED SO [facility] 03:[address] [facility] Plan of Treatment: Future Appointments (+ 6 months) and Future Tests (+/- 45 days) The Plan of Treatment section includes future care activities for the patient from all [facility]. This section includes future appointments and future orders which are active, pending orscheduled.Future Appointments This section includes appointments that were scheduled to occur 6 months from the date of the Encounter, up to a maximum of 20 appointments. The data comes from all [facility]. Appointment Date/Time Appointment Type Appointment Facili ty Name Dec 21, 2021 09:30 AM AMBULATORY - NONE [facility] January 07, 2022 01:30 PM AMBULATORY - MEDICINE [facility] Feb 05, 2022 07:00 AM AMBULATORY [facility] Feb 07, 2022 09:30 AM AMBULATORY [facility] Feb 13, 2022 10:00 AM AMBULATORY RICE [...] the Encounter. The data comes from all [facility]. Test Date/Time Test Type Test Details Facility Name Nov 29, 2021 06:30 AM Laboratory - Blood Bank TYPE & SCREEN - LA B [facility] Order BLOOD SP Dec 15, [...] Comment Nov 30, 2021 11:26 [facility] FINGERSTICK GLUCOSE Speci men Type: BLOOD AM Comment: Save R pranav Nurse Notified Ordering Provid er: TEAM,CARDS TWO Report Released Date/Time: Nov 30, 2021 11:46 AM Reporting Lab: [facility] [address] [facility] [address] Performing Lab: [facility] [address] [facility] [address] FINGERSTICK GLUCOSE 284 H 70-100 Nov 30, 2021 09:[address] [facility] ALBUMIN Specim en Type: PLASMA No comment enter ed. Ordering Provid er: ELIUD DINERO Report Released Date/Time: Nov 29, 2021 07:53 PM Reporting Lab: [facility] [address] [facility] [address] Performing Lab: [facility] [address] [facility] [address] ALBUMIN 3.4 L 3.5-5.2 Nov 30, 2021 09:47 [facility] BASIC METABOLIC Specimen Type: PLASMA AM PANEL+MG No comment enter ed. Ordering Provid er: ANGIE MALHOTRA Report Released Date/Time: Nov 29, 2021 08:12 PM Reporting Lab: [facility] [address] [facility] [address] Performing Lab: [facility] [address] [facility] [address] CREATININE 1.2 0.7-1.2 UREA NITROGEN 18 8-26 GLUCOSE 342 H 74-100 SODIUM 141 136-145 POTASSIUM 4.3 3.5-5.1 CHLORIDE 108 H 98-107 CO2 26 22-29 CALCIUM 8.6 8.4-10.2 MAGNESIUM 1.5 L 1.6-2.6 ANION GAP 7 5-15 CREAT EGFR(CKD-EPI) 63 >60 Nov 30, 2021 09:[address] [facility] CBC Specim en Type: BLOOD No comment enter ed. Ordering Provid er: ANGIE MALHOTRA Report Released Date/Time: Nov 29, 2021 08:12 PM Reporting Lab: [facility] [address] [facility] [address] Performing Lab: [facility] [address] WBC 10.61 4.0-11.0 RBC 4.33 L 4.6-6.2 HGB 14.6 13.5-17.9 HCT 45.2 41-54 MCV 104.4 H 80-100 MCH 33.7 H 27-33 MCHC 32.3 32.0-37.5 PLT 71 L 150-400 MPV 13.9 H 7.4-10.4 RDW 14.7 H 11.5-14.5 IPF 17.8 H 0-10 Nov 30, 2021 06:09 [facility] FINGERSTICK GLUCOSE Speci men Type: BLOOD AM Comment: [place] Nurse Notified Ordering Provid er: IRENE BURNS TWO Report Released Date/Time: Nov 30, 2021 06:32 AM Reporting Lab: [facility] [address] [facility] [address] Performing Lab: [facility] [address] [facility] [address] FINGERSTICK GLUCOSE 165 H 70-100 Nov 29, 2021 07:35 [facility] FINGERSTICK GLUCOSE Speci men Type: BLOOD PM Comment: [place] Nurse Notified Ordering Provid er: GRANTCARDS TWO Report Released Date/Time: Nov 29, 2021 07:48 PM Reporting Lab: [facility] [address] [facility] [address] Performing Lab: [facility] [address] [facility] [address] FINGERSTICK GLUCOSE 160 H 70-100 Nov 29, 2021 06:52 [facility] FINGERSTICK GLUCOSE Speci men Type: BLOOD PM Comment: [place] Nurse Notified Ordering Provid er: SAKSHI CROUCH Report Released Date/Time: Nov 29, 2021 07:04 PM Reporting Lab: [facility] [address] [facility] [address] Performing Lab: [facility] [address] [facility] [address] FINGERSTICK GLUCOSE 161 H 70-100 Nov 29, 2021 04:18 [facility] FINGERSTICK GLUCOSE Speci men Type: BLOOD PM No comment enter ed. Ordering Provid er: GRANTCARDS TWO Report Released Date/Time: Nov 29, 2021 08:08 PM Reporting Lab: [facility] [address] [facility] [address] Performing Lab: [facility] [address] [facility] [address] FINGERSTICK GLUCOSE 179 H 70-100 Nov 29, 2021 03:26 [facility] POC ABG/ELECTROLYTES Spec imen Type: ARTERIAL BLOOD PM Comment: Sample Type = ARTERIAL Ordering Provid er: GRANTCARDS TWO Report Released Date/Time: Nov 29, 2021 07:53 PM Reporting Lab: [facility] [address] Performing Lab: [facility] [address] POC PH 7.321 L 7.35-7.45 POC PCO2 46.0 H 35.00-45.00 POC PO2 103 80.0-105.0 POC TCO2 25 23.0-27.0 POC HCO3 23.8 22.0-26.0 POC BE ECT -2 -2 POC SO2 97 95-98 POC SODIUM 145 138.0-146.0 POC POTASSIUM 3.5 3.50-5.00 POC HGB 16.0 12.00-17.00 POC HCT 47 38.0-51.0 POC IONIZED CALCIUM 4.2 L 4.50-5.30 Nov 29, 2021 03:24 [facility] FINGERSTICK GLUCOSE Speci men Type: BLOOD PM Comment: [place] Ordering Provid er: TEAM,CARDS TWO Report Released Date/Time: Nov 29, 2021 08:08 PM Reporting Lab: [facility] [address] Performing Lab: [facility] [address] FINGERSTICK GLUCOSE 188 H 70-100 Nov 29, 2021 02:06 [facility] POC ABG/ELECTROLYTES Spec imen Type: ARTERIAL BLOOD PM Comment: Sample Type = ARTERIAL Ordering Provid er: TEAM,CARDS TWO Report Released Date/Time: Nov 29, 2021 07:53 PM Reporting Lab: [facility] [address] Performing Lab: [facility] [address] POC PH 7.313 L 7.35-7.45 POC PCO2 48.4 H 35.00-45.00 POC PO2 93 80.0-105.0 POC TCO2 26 23.0-27.0 POC HCO3 24.5 22.0-26.0 POC BE ECT -2 -2 POC SO2 96 95-98 POC SODIUM 144 138.0-146.0 POC POTASSIUM 3.5 3.50-5.00 POC HGB 16.3 12.00-17.00 POC HCT 48 38.0-51.0 POC IONIZED CALCIUM 4.3 L 4.50-5.30 Nov 29, 2021 02:04 [facility] FINGERSTICK GLUCOSE Speci men Type: BLOOD PM Comment: Save R esult Ordering Provid er: IRENE BURNS Report Released Date/Time: Nov 29, 2021 08:08 PM Reporting Lab: [facility] [address] [facility] [address] Performing Lab: [facility] [address] [facility] [address] FINGERSTICK GLUCOSE 236 H 70-100 Nov 29, 2021 01:[address] [facility] POC ACT Specim en Type: BLOOD No comment enter ed. Ordering Provid er: IRENE BURNS Report Released Date/Time: Dec 03, 2021 01:31 PM Reporting Lab: [facility] [address] [facility] [address] Performing Lab: [facility] [address] [facility] [address] POC ACT 135 84-139 Nov 29, 2021 01:[address] [facility] POC ACT Specim en Type: BLOOD No comment enter ed. Ordering Provid er: IRENE BURNS Report Released Date/Time: Dec 03, 2021 01:30 PM Reporting Lab: [facility] [address] [facility] [address] Performing Lab: [facility] [address] [facility] [address] POC ACT 355 84-139 Nov 29, 2021 12:[address] [facility] POC ACT Specim en Type: BLOOD No comment enter ed. Ordering Provid er: IRENE BURNS Report Released Date/Time: Dec 03, 2021 01:30 PM Reporting Lab: [facility] [address] [facility] [address] Performing Lab: [facility] [address] [facility] [address] POC ACT 367 84-139 Nov 29, 2021 12:48 [facility] POC ABG/ELECTROLYTES Spec imen Type: ARTERIAL BLOOD PM Comment: Sample Type = ARTERIAL Ordering Provid er: IRENE BURNS Report Released Date/Time: Nov 29, 2021 07:53 PM Reporting Lab: [facility] [address] [facility] [address] Performing Lab: [facility] [address] [facility] [address] POC PH 7.289 L 7.35-7.45 POC PCO2 52.6 H 35.00-45.00 POC PO2 86 80.0-105.0 POC TCO2 27 23.0-27.0 POC HCO3 25.2 22.0-26.0 POC BE ECT -1 -2 POC SO2 95 95-98 POC SODIUM 145 138.0-146.0 POC POTASSIUM 3.2 L 3.50-5.00 POC HGB 16.7 12.00-17.00 POC HCT 49 38.0-51.0 POC IONIZED CALCIUM 4.7 4.50-5.30 Nov 29, 2021 12:45 [facility] FINGERSTICK GLUCOSE Speci men Type: BLOOD PM Comment: Abrma R billyult Ordering Provid er: IRENE BURNS Report Released Date/Time: Nov 29, 2021 08:08 PM Reporting Lab: [facility] [address] [facility] [address] Performing Lab: [facility] [address] [facility] [address] FINGERSTICK GLUCOSE 186 H 70-100 Nov 29, 2021 12:[address] [facility] POC ACT Specim en Type: BLOOD No comment enter ed. Ordering Provid er: IRENE BURNS Report Released Date/Time: Dec 03, 2021 01:30 PM Reporting Lab: [facility] [address] [facility] [address] Performing Lab: [facility] [address] [facility] [address] POC ACT 367 84-139 Nov 29, 2021 11:[address] [facility] POC ACT Specim en Type: BLOOD No comment enter ed. Ordering Provid er: IRENE BURNS Report Released Date/Time: Dec 03, 2021 01:30 PM Reporting Lab: [facility] [address] [facility] [address] Performing Lab: [facility] [address] [facility] [address] POC ACT 338 84-139 Nov 29, 2021 11:53 [facility] FINGERSTICK GLUCOSE Speci men Type: BLOOD AM Comment: Save R esult Ordering Provid er: IRENE BURNS Report Released Date/Time: Nov 29, 2021 08:08 PM Reporting Lab: [facility] [address] [facility] [address] Performing Lab: [facility] [address] [facility] [address] FINGERSTICK GLUCOSE 225 H 70-100 Nov 29, 2021 11:[address] [facility] POC ACT Specim en Type: BLOOD No comment enter ed. Ordering Provid er: IRENE BURNS Report Released Date/Time: Dec 03, 2021 01:30 PM Reporting Lab: [facility] [address] [facility] [address] Performing Lab: [facility] [address] [facility] [address] POC ACT 355 84-139 Nov 29, 2021 11:26 [facility] POC ABG/ELECTROLYTES Spec imen Type: ARTERIAL BLOOD AM Comment: Sample Type = ARTERIAL Ordering Provid er: IRENE BURNS Report Released Date/Time: Nov 29, 2021 07:53 PM Reporting Lab: [facility] [address] Performing Lab: [facility] [address] POC PH 7.317 L 7.35-7.45 POC PCO2 52.3 H 35.00-45.00 POC PO2 81 80.0-105.0 POC TCO2 28 H 23.0-27.0 POC HCO3 26.8 H 22.0-26.0 POC BE ECT 1 -2 POC SO2 94 L 95-98 POC SODIUM 143 138.0-146.0 POC POTASSIUM 3.5 3.50-5.00 POC HGB 17.3 H 12.00-17.00 POC HCT 51 38.0-51.0 POC IONIZED CALCIUM 4.8 4.50-5.30 Nov 29, 2021 11:06 [facility] FINGERSTICK GLUCOSE Speci men Type: BLOOD AM No comment enter ed. Ordering Provid er: IRENE BURNS Report Released Date/Time: Nov 29, 2021 08:08 PM Reporting Lab: [facility] [address] Performing Lab: [facility] [address] FINGERSTICK GLUCOSE 221 H 70-100 Nov 29, 2021 11:[address] [facility] POC ACT Specim en Type: BLOOD No comment enter ed. Ordering Provid er: IRENE BURNS TWO Report Released Date/Time: Dec 03, 2021 01:30 PM Reporting Lab: [facility] [address] [facility] [address] Performing Lab: [facility] [address] POC ACT 294 84-139 Nov 29, 2021 10:[address] [facility] POC ACT Specim en Type: BLOOD No comment enter ed. Ordering Provid er: IRENE BURNS TWO Report Released Date/Time: Dec 03, 2021 01:30 PM Reporting Lab: [facility] [address] [facility] [address] Performing Lab: [facility] [address] [facility] [address] POC ACT 329 84-139 Nov 29, 2021 10:[address] [facility] POC ACT Specim en Type: BLOOD No comment enter ed. Ordering Provid er: IRENE BURNS Report Released Date/Time: Dec 03, 2021 01:30 PM Reporting Lab: [facility] [facility] [address] Performing Lab: [facility] [address] [facility] [address] POC ACT 312 84-139 Nov 29, 2021 09:58 [facility] POC ABG/ELECTROLYTES Spec imen Type: ARTERIAL BLOOD AM Comment: Sample Type = ARTERIAL Ordering Provid er: IRENE BURNS Report Released Date/Time: Nov 29, 2021 07:53 PM Reporting Lab: [facility] [facility] [address] Performing Lab: [facility] [address] POC PH 7.334 L 7.35-7.45 POC PCO2 48.7 H 35.00-45.00 POC PO2 96 80.0-105.0 POC TCO2 27 23.0-27.0 POC HCO3 25.9 22.0-26.0 POC BE ECT 0 -2 POC SO2 97 95-98 POC SODIUM 143 138.0-146.0 POC POTASSIUM 4.1 3.50-5.00 POC HGB 17.3 H 12.00-17.00 POC HCT 51 38.0-51.0 POC IONIZED CALCIUM 4.9 4.50-5.30 Nov 29, 2021 09:56 [facility] FINGERSTICK GLUCOSE Speci men Type: BLOOD AM No comment enter ed. Ordering Provid er: IRENE BURNS TWO Report Released Date/Time: Nov 29, 2021 08:08 PM Reporting Lab: [facility] [facility] [address] Performing Lab: [facility] [address] FINGERSTICK GLUCOSE 194 H 70-100 Nov 29, 2021 09:[address] [facility] POC ACT Specim en Type: BLOOD No comment enter ed. Ordering Provid er: IRENE BURNS TWO Report Released Date/Time: Dec 03, 2021 01:30 PM Reporting Lab: [facility] [address] [facility] [address] Performing Lab: [facility] [address] [facility] [address] POC ACT 269 84-139 Nov 29, 2021 08:[address] [facility] POC ACT Specim en Type: BLOOD No comment enter ed. Ordering Provid er: GRANT,CARDS TWO Report Released Date/Time: Dec 03, 2021 01:30 PM Reporting Lab: [facility] [address] [facility] [address] Performing Lab: [facility] [address] [facility] [address] POC ACT 135 84-139 Nov 29, 2021 [facility] COVID-19 AND FLU/RSV Specime n Type: NASOPHARYNGEAL 07:05 AM DIAG PANEL(CEPHEID) Comment: Ce pheid GeneXpert (618) Ordering Provid er: KATHERINE FIGUEROA Report Released Date/Time: Oct 29, 2021 12:22 PM Reporting Lab: [facility] [address] [facility] [address] Performing Lab: [facility] [address] [facility] [address] COVID-19 (CEPHEID) Not Detected Not Dete cted INFLUENZA A (PCR) Not Detected Not Detec susanne INFLUENZA B (PCR) Not Detected Not Detec susanne RSV (PCR) Not Detected Not Detected Nov 29, 2021 [facility] ACT PART Specimen Typ e: PLASMA 06:38 AM THROMBO TIME No comment enter ed. Ordering Provid er: KATHERINE FIGUEROA Report Released Date/Time: Oct 29, 2021 12:22 PM Reporting Lab: [facility] [address] [facility] [address] Performing Lab: [facility] [address] [facility] [address] APTT 33.3 25.1-36.5 Nov 29, 2021 [facility] PROTHROMBIN Specimen Typ e: PLASMA 06:38 AM TIME/INR No comment enter ed. Ordering Provid er: KATHERINE FIGUEROA Report Released Date/Time: Oct 29, 2021 12:22 PM Reporting Lab: [facility] [address] [facility] [address] Performing Lab: [facility] [address] [facility] [address] .INR 1.1 0.8-1.1 .PT 13.1 H 9.4-12.5 Nov 29, 2021 [facility] BASIC METABOLIC Specimen Typ e: PLASMA 06:38 AM PANEL+MG No comment enter ed. Ordering Provid er: KATHERINE FIGUEROA Report Released Date/Time: Oct 29, 2021 12:22 PM Reporting Lab: [facility] [address] Performing Lab: [facility] [address] CREATININE 1.4 H 0.7-1.2 UREA NITROGEN 23 8-26 GLUCOSE 201 H 74-100 SODIUM 143 136-145 POTASSIUM 4.3 3.5-5.1 CHLORIDE 108 H 98-107 CO2 28 22-29 CALCIUM 9.9 8.4-10.2 MAGNESIUM 1.9 1.6-2.6 ANION GAP 7 5-15 CREAT EGFR(CKD-EPI) 53 L >60 Nov 29, 2021 06:38 [facility] CBC Specimen Type: BLOOD AM No comment enter ed. Ordering Provid er: KATHERINE FIGUEROA Report Released Date/Time: Oct 29, 2021 12:22 PM Reporting Lab: [facility] [address] Performing Lab: [facility] [address] WBC 7.40 4.0-11.0 RBC 5.17 4.6-6.2 HGB [...] 0 [place] 2021 11:07 /min mm[Hg] [facility] Nov 29 96 % [place] 2021 08:40 /min [facility] Nov 29, 232 lb 30 [place] 2021 08:38 [facility] [address] [facility] Nov 29 112/73 97 % [place] 2021 08:35 /min mm[Hg] [facility] Nov 29 113/69 90 % [place] 2021 08:15 /min mm[Hg] [facility] Social History: Smoking Status (Most current) and [...] PM [facility] TOBACCO USE CURRENT NRT [facility] ACCEPT Tobacco Use History This section includes a history of the smoking, or tobacco- related health factors, that were collected on or before the date of the Encounter. The data comes from the [place] facility where the Encounter took place. Date/Time Smoking Status/Tobacco Use Comment [facility] Mar 20, 2021 11:21 AM VA-[facility]ES TOBACCO USE CURRENT NRT [facility] DECLINE Nov 15, 2020 10:00 AM VA-TOBACCO DOESNT USE WI [address] [facility] WAKEUP Nov 15, 2020 10:00 AM VA-TOBACCO USE [address] 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 Nov 15, [...] Jun 21, 2019 02:29 PM VA-TOBACCO USE CAR EXAMINER NO [facility] Jun 21, [...] 09, 2018 03:48 PM [facility] Jun 09, 2018 03:48 PM VA-TOBACCO USE CAR EXAMINER NO [facility] Jun 09, 2018 03:48 PM VA-TOBACCO USE MED NO [facility] Jun 09, 2018 03:48 PM VA-TOBACCO [...] this document. The data comes from all [place] facilities. Date Advance Directives Provider Source Mar 06, 2005 ADVANCE DIRECTIVE GANESH RODRIGUEZ [facility] Radiology Reports: +/- 30 days [...] PA AND LAT: MONET LUDWIG [facility] PAUL MICHELEEN [id number] -JUL 03 [birth year] 7 M Exm Date: NOV 30, 2021@07:05 Req Phys: CHERRY MENDOZA Loc: 3LSOB/ 2@08:05 Img Loc: MAIN X-RAY Service: zzcard sect (Case [id number] COMPLETE) CHEST 2 VIEWS PA AND LAT (R AD Detailed) CPT:33891 Reason for Study: s/p upgrade ICD adding [...] pager listed below: User placing orders pager: [phone] LAST CREATININE 1.4 H (11/29/21) Report Status: Verified Date Reported: NOV 30, 2021 Date Verified: NOV 30, 2021 Cart Driver E-Sig:/ES/MONET LUDWIG MD, FACR, C CD Report: [...] 06:25 PM CHEST 1 VIEW: LETYMAGDALENE JOLLY [facility] PAUL MICHELE ROBERTO [id number] -JUL 03 [birth year] 7 M Exm Date: NOV 29, 2021@18:25 Req Phys: CHERRY MENDOZA Pat Loc: [facility] [address] [facility] (Req'g Loc) Img Loc: MAIN X-RAY Service: Unknown (Case [id number] COMPLETE) CHEST 1 VIEW (RAD Detailed) CPT:27144 Reason for Study: s/p upgrade ICD adding [...] pager listed below: User placing orders pager: [phone] LAST CREATININE 1.4 H (11/29/21) Report Status: Verified Date Reported: NOV 29, 2021 Date Verified: NOV 29, 2021 Cart Driver E-Sig:/ES/MAGDALENE DAVIDSON MD Report: DATE/TIME REGISTERED: 11/29/2021 [...] Primary Interpreting Staff: MAGDALENE DAVIDSON MD, RADIOLOGIST (Cart Driver) /LUAN Encounter Notes: All associated encounter notes This section contains the clinical notes associated to the Encounter. Date/Time Encounter Note(s) Provider Source Nov 29, 2021 03:29 PM CARDIOLOGY DIAGNOSTIC STUDY NOTE: WINIFRED SO [facility] LOCAL TITLE: CARDIOLOGY ELECTROPHYSIOLOGY NOTE STANDARD TITLE: CARDIOLOGY DIAGNOSTIC STUDY NOTE DATE OF NOTE: NOV 29, 2021@15:29 ENTRY DATE: NOV 29, 2021@15:29:08 AUTHOR: WINIFRED SO EXP COSIGNER: URGENCY: STATUS: COMPLETED ICD Analysis Visit Location Clinic: [facility] Lab Diagnosis/Indication: ICMP/chf Implant Date: 02-04-2012 Engraver Set Up Operator: Medtronic Model: protecta Single Chamber Programmed Therapy: VF >188 bpm atp during lashanda ging then shocks, Device will deliver therapies for rates > 188 Luis Armando Parameters: VVI Lower Rate/Upper Rate: 40/ Mode Switch: Not Available Battery Voltage: 2.61 Last Charge Time: seconds Sensing Threshold - Atrium: mV (R) Ventricle: 3.5 mV (L) Ventricle: mV Pacing Threshold - Atrium: @ (R) Ventricle: 0.25 V @ 0.4 ms (L) Ventricle: @ Lead Impedance - Atrium: ohms (R) Ventricle: 399 ohms (L) Ventricle: ohms Shockin ohms Superior Venacava Coil (SVC): ohms Percent Paced - Atrium: % Ventricle: 0.1 % Pacer Dependent at VVI 30 bpm: No Ventricle Episodes: one NST VT 8 beats duration at rate of 207 bpm on -believe true NST VT. Mode Switch Episodes: na Comment: Patient on procedure table today for P and device upgrade to dual chamber with generator change to follow. Patient ICD therapies turned off for procedure. Reprogrammed: Yes Return to clinic: one month post upgrade Analysis by: Winifred So RN Device report sent to scanning. Will be viewabl e via [employer] once scanned. Patient enrolled in remote monitoring. Data avai lable via [place] [employer] Cardiac Device Surveillance System. Abnormal remote chec ks documented in CPRS. For questions call [phone] PAUL NELSON [id number] NOV 29, 2021 /es/ WINIFRED SO RNC STAFF NURSE Signed: 11/29/2021 15:43
--- OUTSIDE RECORDS SUMMARY | 2022-04-02 16:14 | XMS_ITS | Encounter Summary ---
:1945 Author Organization Department [facility] Address [address] [place] [id number] Care Team Providers Name Role Phone CROUCH [...] MEDICARE MEDICARE PART Jun 25, PART B [id number] Saumya QUINONES PATIENT (WNR) (M) B 2011 78A 0 AVID MEDICARE MEDICARE PART Sep 25, PART A [id number] Saumya QUINONES PATIENT (WNR) (M) A 2009 78A 0 AVID MEDICARE MEDICARE PART Sep 25, PART A [id number] Saumya MICHELE (WNR) (M) A 2009 78A [phone] AVID MEDICARE MEDICARE PART Sep 25, PART B [id number] Saumya MICHELE (WNR) (M) B 2009 78A [phone] AVID Selected Encounter This section includes the information on record at [facility] for the Encounter. Date/Time Encounter Type Encounter Description Reason Provider Source Nov 29, 2021 07:02 Outpatient Encounter EVENT (HISTORICAL) PM IHE Encounter Template Text not used by [facility] Plan of Treatment: Future Appointments (+ 6 months) and Future Tests (+/- 45 days) The Plan of Treatment section includes future care activities for the patient from all [facility]. This section includes future appointments and future orders which are active, pending orscheduled.Future Appointments This section includes appointments that were scheduled to occur 6 months from the date of the Encounter, up to a maximum of 20 appointments. The data comes from all [facility]. Appointment Date/Time Appointment Type Appointment Facili ty Name Dec 21, 2021 09:30 AM AMBULATORY - NONE [facility] January 07, 2022 01:30 PM AMBULATORY - MEDICINE [facility] Feb 05, 2022 07:00 AM AMBULATORY - [facility] Feb 07, 2022 09:30 AM AMBULATORY - NONE [facility] Feb 13, 2022 10:00 AM AMBULATORY [facility] Mar 21, 2022 09:30 AM AMBULATORY [facility] Active, Pending, and Scheduled Orders This section includes a listing of several types of active, pending, and scheduled orders, including clinic medications orders, diagnostic test orders, procedure orders and consult orders; where the start date of the order is 45 days before the date of the Encounter or 45 days after the date of the Encounter. The data comes from all [facility]. Test Date/Time Test Type Test Details Facility Name Nov 29, 2021 06:30 AM Laboratory - Blood Bank TYPE & SCREEN - LA B [facility] Order BLOOD SP Dec 15, 2021 12:00 AM Laboratory - Chemistry BASIC METABOLIC MIN [facility] Order PANEL+MG PLASMA SP Lab Results: +/- [...] AM Reporting Lab: [facility] ONE [facility]NOTE 3] [facility] [address] Performing Lab: [facility] [address] FINGERSTICK GLUCOSE 284 mg/dL H 70-100 Nov 30, 2021 09:47 AM [facility] ALBUMIN Specim en Type: PLASMA No comment enter ed. Ordering Provid er: ELIUD DINERO Report Released Date/Time: Nov 29, 2021 07:53 PM Reporting Lab: [facility] [address] [facility] [address] Performing Lab: [facility] [address] ALBUMIN 3.4 g/dL L 3.5-5.2 Nov 30, 2021 09:47 [facility] BASIC METABOLIC Specimen Type: PLASMA AM PANEL+MG No comment enter ed. Ordering Provid er: ANGIE MALHOTRA Report Released Date/Time: Nov 29, 2021 08:12 PM Reporting Lab: [facility] [address] Performing Lab: [facility] [address] CREATININE 1.2 mg/dL 0.7-1.2 UREA NITROGEN 18 [...] Lab: [facility] [address] [facility] [address] Performing Lab: [facility] [address] WBC 10.61 10*3/uL 4.0-11.0 RBC 4.33 10*6/uL [...] [facility] [address] [facility] [address] Performing Lab: [facility] [address] [facility] [address] FINGERSTICK GLUCOSE 165 mg/dL H 70-100 Nov 29, 2021 07:35 [facility] FINGERSTICK GLUCOSE Speci men Type: BLOOD PM Comment: [place] Nurse Notified Ordering Provid er: IRENE BURNS TWO Report Released Date/Time: Nov 29, 2021 07:48 PM Reporting Lab: [facility] [address] [facility] [address] Performing Lab: [facility] [address] [facility] [address] FINGERSTICK GLUCOSE 160 mg/dL H 70-100 Nov 29, 2021 06:52 [facility] FINGERSTICK GLUCOSE Speci men Type: BLOOD PM Comment: [place] Nurse Notified Ordering Provid er: SAKSHI CROUCH Report Released Date/Time: Nov 29, 2021 07:04 PM Reporting Lab: [facility] [address] [facility] [address] Performing Lab: [facility] [address] [facility] [address] FINGERSTICK GLUCOSE 161 mg/dL H 70-100 Nov 29, 2021 04:18 [facility] FINGERSTICK GLUCOSE Speci men Type: BLOOD PM No comment enter ed. Ordering Provid er: IRENE BURNS TWO Report Released Date/Time: Nov 29, 2021 08:08 PM Reporting Lab: [facility] [address] [facility] [address] Performing Lab: [facility] [address] [facility] [address] FINGERSTICK GLUCOSE 179 mg/dL H 70-100 Nov 29, 2021 03:26 [facility] POC ABG/ELECTROLYTES Spec imen Type: ARTERIAL BLOOD PM Comment: Sample Type = ARTERIAL Ordering Provid er: IRENE BURNS TWO Report Released Date/Time: Nov 29, 2021 07:53 PM Reporting Lab: [facility] [address] Performing Lab: [facility] [address] POC PH 7.321 L 7.35-7.45 POC PCO2 [...] 2021 08:08 PM Reporting Lab: [facility] [address] Performing Lab: [facility] [address] FINGERSTICK GLUCOSE 188 mg/dL H 70-100 Nov 29, 2021 02:06 [facility] POC ABG/ELECTROLYTES Spec imen Type: ARTERIAL BLOOD PM Comment: Sample Type = ARTERIAL Ordering Provid er: TEAM,CARDS TWO Report Released Date/Time: Nov 29, 2021 07:53 PM Reporting Lab: [facility] [address] Performing Lab: [facility] [address] POC PH 7.313 L 7.35-7.45 POC PCO2 [...] [facility] [address] [facility] [address] Performing Lab: [facility] [address] [facility] [address] FINGERSTICK GLUCOSE 236 mg/dL H 70-100 Nov 29, 2021 01:52 PM [facility] POC ACT Specim en Type: BLOOD No comment enter ed. Ordering Provid er: IRENE BURNS Report Released Date/Time: Dec 03, 2021 01:31 PM Reporting Lab: [facility] [address] Performing Lab: [facility] [address] POC ACT 135 s 84-139 Nov 29, 2021 01:16 PM [facility] POC ACT Specim en Type: BLOOD No comment enter ed. Ordering Provid er: IRENE BURNS Report Released Date/Time: Dec 03, 2021 01:30 PM Reporting Lab: [facility] [address] [facility] [address] Performing Lab: [facility] [place] [address] [facility] [address] POC ACT 355 s 84-139 Nov 29, 2021 12:49 PM [facility] POC ACT Specim en Type: BLOOD No comment enter ed. Ordering Provid er: IRENE BURNS Report Released Date/Time: Dec 03, 2021 01:30 PM Reporting Lab: [facility] [address] [facility] [address] Performing Lab: [facility] [address] [facility] [address] POC ACT 367 s 84-139 Nov 29, 2021 12:48 [facility] POC ABG/ELECTROLYTES Spec imen Type: ARTERIAL BLOOD PM Comment: Sample Type = ARTERIAL Ordering Provid er: IRENE BURNS Report Released Date/Time: Nov 29, 2021 07:53 PM Reporting Lab: [facility] [address] [facility] [address] Performing Lab: [facility] [address] POC PH 7.289 L 7.35-7.45 POC PCO2 [...] Lab: [facility] [address] [facility] [address] Performing Lab: [facility] [address] FINGERSTICK GLUCOSE 186 mg/dL H 70-100 Nov 29, 2021 12:26 PM [facility] POC ACT Specim en Type: BLOOD No comment enter ed. Ordering Provid er: IRENE BURNS TWO Report Released Date/Time: Dec 03, 2021 01:30 PM Reporting Lab: [facility] [address] [facility] [address] Performing Lab: [facility] [address] [facility] [address] POC ACT 367 s 84-139 Nov 29, 2021 11:58 AM [facility] POC ACT Specim en Type: BLOOD No comment enter ed. Ordering Provid er: IRENE BURNS TWO Report Released Date/Time: Dec 03, 2021 01:30 PM Reporting Lab: [facility] [address] [facility] [address] Performing Lab: [facility] [address] [facility] [facility] [address] POC ACT 338 s 84-139 Nov 29, 2021 11:53 [facility] FINGERSTICK GLUCOSE Speci men Type: BLOOD AM Comment: Save R esult Ordering Provid er: IRENE BURNS TWO Report Released Date/Time: Nov 29, 2021 08:08 PM Reporting Lab: [facility] [place] [facility] [address] Performing Lab: [facility] [address] FINGERSTICK GLUCOSE 225 mg/dL H 70-100 Nov 29, 2021 11:30 AM [facility] POC ACT Specim en Type: BLOOD No comment enter ed. Ordering Provid er: IRENE BURNS Report Released Date/Time: Dec 03, 2021 01:30 PM Reporting Lab: [facility] [address] Performing Lab: [facility] [address] POC ACT 355 s 84-139 Nov 29, 2021 11:26 [facility] POC ABG/ELECTROLYTES Spec imen Type: ARTERIAL BLOOD AM Comment: Sample Type = ARTERIAL Ordering Provid er: IRENE BURNS TWO Report Released Date/Time: Nov 29, 2021 07:53 PM Reporting Lab: [facility] [address] Performing Lab: [facility] [address] POC PH 7.317 L 7.35-7.45 POC PCO2 [...] 2021 08:08 PM Reporting Lab: [facility] [address] Performing Lab: [facility] [address] FINGERSTICK GLUCOSE 221 mg/dL H 70-100 Nov 29, 2021 11:02 AM [facility] POC ACT Specim en Type: BLOOD No comment enter ed. Ordering Provid er: IRENE BURNS Report Released Date/Time: Dec 03, 2021 01:30 PM Reporting Lab: [facility] [place] [address] [address] Performing Lab: [facility] [place] [address] [address] POC ACT 294 s 84-139 Nov 29, 2021 10:26 AM [facility] POC ACT Specim en Type: BLOOD No comment enter ed. Ordering Provid er: IRENE BURNS Report Released Date/Time: Dec 03, 2021 01:30 PM Reporting Lab: [facility] [place] [address] [facility] [address] Performing Lab: [facility] [address] POC ACT 329 s 84-139 Nov 29, 2021 10:06 AM [facility] POC ACT Specim en Type: BLOOD No comment enter ed. Ordering Provid er: IRENE BURNS Report Released Date/Time: Dec 03, 2021 01:30 PM Reporting Lab: [facility] [address] [facility] [address] Performing Lab: [facility] [address] [facility] [address] POC ACT 312 s 84-139 Nov 29, 2021 09:58 [facility] POC ABG/ELECTROLYTES Spec imen Type: ARTERIAL BLOOD AM Comment: Sample Type = ARTERIAL Ordering Provid er: IRENE BURNS Report Released Date/Time: Nov 29, 2021 07:53 PM Reporting Lab: [facility] [address] [facility] [address] Performing Lab: [facility] [address] [facility] [address] POC PH 7.334 L 7.35-7.45 POC PCO2 [...] Lab: [facility] [place] [address] [facility] [address] Performing Lab: [facility] [address] [facility] [address] FINGERSTICK GLUCOSE 194 mg/dL H 70-100 Nov 29, 2021 09:45 AM [facility] POC ACT Specim en Type: BLOOD No comment enter ed. Ordering Provid er: IRENE BURNS Report Released Date/Time: Dec 03, 2021 01:30 PM Reporting Lab: [facility] [address] [facility] [address] Performing Lab: [facility] [address] POC ACT 269 s 84-139 Nov 29, 2021 08:59 AM [facility] POC ACT Specim en Type: BLOOD No comment enter ed. Ordering Provid er: IRENE BURNS TWO Report Released Date/Time: Dec 03, 2021 01:30 PM Reporting Lab: [facility] [address] [facility] [address] Performing Lab: [facility] [address] [facility] [address] POC ACT 135 s 84-139 Nov 29, 2021 [facility] COVID-19 AND FLU/RSV Specime n Type: NASOPHARYNGEAL 07:05 AM DIAG PANEL(CEPHEID) Comment: Ce pheid GeneXpert (618) Ordering Provid er: KATHERINE FIGUEROA Report Released Date/Time: Oct 29, 2021 12:22 PM Reporting Lab: [facility] [address] [facility] [address] Performing Lab: [facility] [address] [facility] [address] COVID-19 (CEPHEID) Not Detected Not Dete cted [...] Lab: [facility] [facility] [address] Performing Lab: [facility] [address] CREATININE 1.4 mg/dL H 0.7-1.2 UREA NITROGEN [...] 29, 2021 12:22 PM Reporting Lab: [facility] [address] Performing Lab: [facility] [address] WBC 7.40 10*3/uL 4.0-11.0 RBC 5.17 10*6/uL [...] 29, 2021 12:22 PM Reporting Lab: [facility] [address] Performing Lab: [facility] [address] [facility] [address] .INR 1.1 0.8-1.1 .PT 13.1 s H 9.4-12.5 Nov 29, 2021 [facility] ACT PART Specimen Typ e: PLASMA 06:38 AM THROMBO TIME No comment enter ed. Ordering Provid er: KATHERINE FIGUEROA Report Released Date/Time: Oct 29, 2021 12:22 PM Reporting Lab: [facility] ONE [facility] [address] Performing Lab: [facility] [address] APTT 33.3 s 25.1-36.5 Vital Signs: All taken on the encounter date This section contains inpatient and outpatient Vital Signs collected on the date of the Encounter. Date/Time Temperature Pulse Blood Respiratory SP02 Pain Height Weight Axel dy Source Pressure Rate Mass Index Nov 29, 98.3 F 96 99/66 18 /min 90 % 0 [place] 2021 11:07 /min mm[Hg] [facility] Nov 29 96 % [place] 2021 08:40 /min [facility] Nov 29, 232 lb 30 [place] 2021 08:38 [facility] Nov 29 112/73 97 % [place] 2021 08:35 /min mm[Hg] [facility] Nov 29, 113/69 90 % [place] 2021 08:15 /min mm[Hg] [facility] Social History: Smoking Status (Most [...] took place. Date/Time Smoking Status/Tobacco Use Comment 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 [facility] Jun 09, 2018 03:48 PM VA-TOBACCO USE MED NO [place] [facility] Jun 09, 2018 03:48 PM VA-TOBACCO USE WI 30 MIN OF WAKEUP [facility] Jun 09, 2018 03:48 PM VA-TOBACCO USER EVERY DAY [facility] Jun 20, 2017 07:53 AM CURRENT TOBACCO USER [facility] Jun 19, 2016 08:41 AM CURRENT TOBACCO USER [facility] Jun 21, 2015 08:15 AM CURRENT TOBACCO USER [facility] Mar 22, 2014 10:03 AM CURRENT TOBACCO USER [facility] Mar 25, 2013 11:01 AM CURRENT TOBACCO USER [facility] Feb 05, 2012 08:55 AM CURRENT TOBACCO USER [facility] January 01, 2011 09:26 AM CURRENT TOBACCO USER [facility] Mar 07, 2010 10:02 AM CURRENT TOBACCO USER [facility] Feb 21, 2009 08:17 AM CURRENT TOBACCO USER [facility] Nov 06, 2007 10:02 AM CURRENT TOBACCO USER [facility] January 02, 2007 10:33 AM CURRENT TOBACCO USER [facility] Advance Directives: All historical and [...] MONET LUDWIG [facility] PAUL MICHELE [id number] -[birth year] 9 M Exm Date: NOV 30, 2021@07:05 Req Phys: CHERRY MENDOZA Loc: 3LSOB/ 2@08:05 Img Loc: MAIN X-RAY Service: zzcard sect (Case [id number] COMPLETE) CHEST 2 VIEWS PA AND LAT (R AD Detailed) CPT:62389 Reason for Study: s/p upgrade ICD adding an A l ead Clinical History: Post ICD or Pacemaker: Verify Lead Placement. [place] IS NOT under investigation for COVID-19 or is COVID-19 negative s/p upgrade ICD adding an A lead Responsible pr ovider name and phone number to notify for critical findings if other than user placing the order and pager listed below: User placing orders pager: [phone] LAST CREATININE 1.4 H (11/29/21) Report Status: Verified Date Reported: NOV 30, 2021 Date Verified: NOV 30, 2021 Shirring Machine Operator E-Sig:/ES/MONET LUDWIG MD, FACR, C CD [...] MAGDALENE DAVIDSON [facility] [place] [id number] -[birth year]UL [birth year] 9 M Exm Date: NOV 29, 2021@18:25 Req Phys: CHERRY MENDOZA Pat Loc: [facility] [address] [facility] (Req'g Loc) Img Loc: MAIN X-RAY Service: Unknown (Case [id number] COMPLETE) CHEST 1 VIEW (RAD Detailed) CPT:37658 Reason for Study: s/p upgrade ICD adding an A l ead Clinical History: Immediate Post-Op Pacemaker/ICD placement [place] IS NOT under investigation for COVID-19 or is COVID-19 negative s/p upgrade his ICD to dual chamber (adding an A lead) Responsible provider name and phone number to n otify for critical findings if other than user placing the order a nd pager listed below: User placing orders pager: [phone] LAST CREATININE 1.4 H (11/29/21) Report Status: Verified Date Reported: NOV 29, 2021 Date Verified: NOV 29, 2021 Shirring Machine Operator E-Sig:/BILLY/MAGDALENE DAVIDSON MD Report: DATE/TIME REGISTERED: 11/29/2021 [...] Primary Interpreting Staff: MAGDALENE DAVIDSON MD, RADIOLOGIST (Shirring Machine Operator) /LUAN Encounter Notes: All associated encounter notes This section contains the clinical notes associated to the Encounter. Date/Time Encounter Note(s) Provider Source Nov 29, 2021 05:57 PM ANESTHESIOLOGY OPERATIVE NOTE: RAND OLVERA [facility] LOCAL TITLE: [facility]K ANESTHESIA RECORD STANDARD TITLE: ANESTHESIOLOGY OPERATIVE NOTE DATE OF NOTE: NOV 29, 2021@17:57 ENTRY DATE: NOV 29, 2021@19:02:40 AUTHOR: RAND OLVERA EXP COSIGNER: URGENCY: STATUS: COMPLETED See [facility] for Full Anesthesia Record /billy/ RAND OLVERA MD ANESTHESIOLOGIST Signed: 11/29/2021 19:02
--- OUTSIDE RECORDS SUMMARY | 2022-04-02 16:14 | XMS_ITS | Encounter Summary ---
:1945 Author Organization Department [facility] Address [address] [place] [id number] Care Team Providers Name Role Phone WILLA [...] MEDICARE MEDICARE PART Jun 25, PART B [id number] Saumya QUINONES PATIENT (WNR) (M) B 2011 78A 0 AVID MEDICARE MEDICARE PART Sep 25, PART A [id number] Saumya QUINONES PATIENT (WNR) (M) A 2009 78A 0 AVID MEDICARE MEDICARE PART Sep 25, PART A [id number] Saumya MICHELE (WNR) (M) A 2009 78A [id number] AVID MEDICARE MEDICARE PART Sep 25, PART B [id number] Saumya MICHELE (WNR) (M) B 2009 78A [id number] AVID Selected Encounter This section includes the information on [place] at [place] for the Encounter. Date/Time Encounter Type Encounter Description Reason Provider Source Nov 28, 2021 02:02 Outpatient Encounter TELEPHONE PRIMARY CARE IHE Encounter Template Text not used by [place] Plan of Treatment: Future Appointments (+ 6 months) and Future Tests (+/- 45 days) The Plan of Treatment section includes [place] care activities [place] the [place] [facility] [place] [facility] This section includes future appointments and future orders which are active, pending orscheduled.Future Appointments This section includes appointments that were scheduled to occur 6 months from the date of the Encounter, up to a maximum of 20 appointments. The data comes from all [facility]. Appointment Date/Time Appointment Type Appointment Facili ty Name Nov 29, 2021 06:30 AM AMBULATORY - NONE [facility] Nov 29, 2021 07:30 AM AMBULATORY - MEDICINE [facility] Nov 29, 2021 08:00 AM AMBULATORY - MEDICINE [facility] Dec 21, 2021 09:30 AM AMBULATORY - [facility] January 07, 2022 01:30 PM AMBULATORY - MEDICINE [facility] Feb 05, 2022 07:00 AM AMBULATORY - [facility] Feb 07, 2022 09:30 AM AMBULATORY [facility] Feb 13, 2022 10:00 AM AMBULATORY DEER [...] the Encounter. The data comes from all [facility]. Test Date/Time Test Type Test Details Facility Name Nov 29, 2021 06:30 AM Laboratory - Blood Bank TYPE & SCREEN - LA B [facility] Order BLOOD SP Dec 15, 2021 12:00 AM Laboratory - Chemistry BASIC METABOLIC MIN [facility] Order PANEL+MG PLASMA SP Lab Results: +/- [...] Range Comment Nov 30, 2021 11:26 [facility] FINGERSTICK GLUCOSE Speci men Type: BLOOD AM Comment: Save R pranav Nurse Notified Ordering Provid er: TEAM,CARDS TWO Report Released Date/Time: Nov 30, 2021 11:46 AM Reporting Lab: [facility] [address] [facility] [address] Performing Lab: [facility] [address] [facility] [address] FINGERSTICK GLUCOSE 284 mg/dL H 70-100 Nov 30, 2021 09:47 AM [facility] ALBUMIN Specim en Type: PLASMA No comment enter ed. Ordering Provid er: ELIUD DINERO Report Released Date/Time: Nov 29, 2021 07:53 PM Reporting Lab: [facility] [address] [facility] [address] Performing Lab: [facility] [address] ALBUMIN 3.4 g/dL L 3.5-5.2 Nov 30, 2021 09:47 [facility] BASIC METABOLIC Specimen Type: PLASMA AM PANEL+MG No comment enter ed. Ordering Provid er: ANGIE MALHOTRA Report Released Date/Time: Nov 29, 2021 08:12 PM Reporting Lab: [facility] [address] Performing Lab: [facility] [address] [facility] [address] CREATININE 1.2 mg/dL 0.7-1.2 UREA NITROGEN 18 mg/dL 8-26 GLUCOSE 342 mg/dL H 74-100 SODIUM 141 mmol/L 136-145 POTASSIUM 4.3 mmol/L 3.5-5.1 CHLORIDE 108 mmol/L H 98-107 CO2 26 mmol/L 22-29 CALCIUM 8.6 mg/dL 8.4-10.2 MAGNESIUM 1.5 mg/dL L 1.6-2.6 ANION GAP 7 mmol/L 5-15 CREAT EGFR(CKD-EPI) 63 >60 Nov 30, 2021 09:46 AM [facility] CBC Specim en Type: BLOOD No comment enter ed. Ordering Provid er: ANGIE MALHOTRA Report Released Date/Time: Nov 29, 2021 08:12 PM Reporting Lab: [facility] [address] Performing Lab: [facility] [address] WBC 10.61 10*3/uL 4.0-11.0 RBC 4.33 10*6/uL L 4.6-6.2 HGB 14.6 g/dL 13.5-17.9 HCT 45.2 41-54 MCV 104.4 fL H 80-100 MCH 33.7 pg H 27-33 MCHC 32.3 g/dL 32.0-37.5 PLT 71 10*3/uL L 150-400 MPV 13.9 fL H 7.4-10.4 RDW 14.7 H 11.5-14.5 IPF 17.8 H 0-10 Nov 30, 2021 06:09 [facility] FINGERSTICK GLUCOSE Speci men Type: BLOOD AM Comment: [place] Nurse Notified Ordering Provid er: IRENE BURNS TWO Report Released Date/Time: Nov 30, 2021 06:32 AM Reporting Lab: [facility] [address] [facility] [address] Performing Lab: [facility] [address] [facility] [address] FINGERSTICK GLUCOSE 165 mg/dL H 70-100 Nov 29, 2021 07:35 [facility] FINGERSTICK GLUCOSE Speci men Type: BLOOD PM Comment: [place] Nurse Notified Ordering Provid er: IRENE BURNS TWO Report Released Date/Time: Nov 29, 2021 07:48 PM Reporting Lab: [facility] [address] [facility] [address] Performing Lab: [facility] [address] [facility] [address] FINGERSTICK GLUCOSE 160 mg/dL H 70-100 Nov 29, 2021 06:52 [facility] FINGERSTICK GLUCOSE Speci men Type: BLOOD PM Comment: [place] Nurse Notified Ordering Provid er: SAKSHI CROUCH Report Released Date/Time: Nov 29, 2021 07:04 PM Reporting Lab: [facility] [address] [facility] [address] Performing Lab: [facility] [address] [facility] [address] FINGERSTICK GLUCOSE 161 mg/dL H 70-100 Nov 29, 2021 04:18 [facility] FINGERSTICK GLUCOSE Speci men Type: BLOOD PM No comment enter ed. Ordering Provid er: IRENE BURNS TWO Report Released Date/Time: Nov 29, 2021 08:08 PM Reporting Lab: [facility] [address] [facility] [address] Performing Lab: [facility] [address] [facility] [address] FINGERSTICK GLUCOSE 179 mg/dL H 70-100 Nov 29, 2021 03:26 [facility] POC ABG/ELECTROLYTES Spec imen Type: ARTERIAL BLOOD PM Comment: Sample Type = ARTERIAL Ordering Provid er: TEAM,CARDS TWO Report Released Date/Time: Nov 29, 2021 07:53 PM Reporting Lab: [facility] [address] Performing Lab: [facility] [address] POC PH 7.321 L 7.35-7.45 POC PCO2 [...] L 4.50-5.30 Nov 29, 2021 03:24 [facility] FINGERSTICK GLUCOSE Speci men Type: BLOOD PM Comment: Save R esult Ordering Provid er: TEAM,CARDS TWO Report Released Date/Time: Nov 29, 2021 08:08 PM Reporting Lab: [facility] [address] Performing Lab: [facility] [address] FINGERSTICK GLUCOSE 188 mg/dL H 70-100 Nov 29, 2021 02:06 [facility] POC ABG/ELECTROLYTES Spec imen Type: ARTERIAL BLOOD PM Comment: Sample Type = ARTERIAL Ordering Provid er: TEAM,CARDS TWO Report Released Date/Time: Nov 29, 2021 07:53 PM Reporting [facility] [address] Performing Lab: [facility] [address] POC PH 7.313 L 7.35-7.45 POC PCO2 [...] L 4.50-5.30 Nov 29, 2021 02:04 [facility] FINGERSTICK GLUCOSE Speci men Type: BLOOD PM Comment: Save R esult Ordering Provid er: IRENE BURNS Report Released Date/Time: Nov 29, 2021 08:08 PM Reporting Lab: [facility] [address] [facility] [address] Performing Lab: [facility] [address] [facility] [address] FINGERSTICK GLUCOSE 236 mg/dL H 70-100 Nov 29, 2021 01:52 PM [facility] POC ACT Specim en Type: BLOOD No comment enter ed. Ordering Provid er: IRENE BURNS TWO Report Released Date/Time: Dec 03, 2021 01:31 PM Reporting Lab: [facility] [address] [facility] [address] Performing Lab: [facility] [address] [facility] [address] POC ACT 135 s 84-139 Nov 29, 2021 01:16 PM [facility] POC ACT Specim en Type: BLOOD No comment enter ed. Ordering Provid er: IRENE BURNS Report Released Date/Time: Dec 03, 2021 01:30 PM Reporting Lab: [facility] [address] [facility] [address] Performing Lab: [facility] [address] [facility] [address] POC ACT 355 s 84-139 Nov 29, 2021 12:49 PM [facility] POC ACT Specim en Type: BLOOD No comment enter ed. Ordering Provid er: IRENE BURNS TWO Report Released Date/Time: Dec 03, 2021 01:30 PM Reporting Lab: [facility] [address] [facility] [address] Performing Lab: [facility] [address] [facility] [address] POC ACT 367 s 84-139 Nov 29, 2021 12:48 [facility] POC ABG/ELECTROLYTES Spec imen Type: ARTERIAL BLOOD PM Comment: Sample Type = ARTERIAL Ordering Provid er: IRENE BURNS Report Released Date/Time: Nov 29, 2021 07:53 PM Reporting Lab: [facility] [address] [facility] [address] Performing Lab: [facility] [address] [facility] [address] POC PH 7.289 L 7.35-7.45 POC PCO2 [...] mg/dL 4.50-5.30 Nov 29, 2021 12:45 [facility] FINGERSTICK GLUCOSE Speci men Type: BLOOD PM Comment: Save R esult Ordering Provid er: IRENE BURNS TWO Report Released Date/Time: Nov 29, 2021 08:08 PM Reporting Lab: [facility] [address] [facility] [address] Performing Lab: [facility] [address] [facility] [address] FINGERSTICK GLUCOSE 186 mg/dL H 70-100 Nov 29, 2021 12:26 PM [facility] POC ACT Specim en Type: BLOOD No comment enter ed. Ordering Provid er: IRENE BURNS Report Released Date/Time: Dec 03, 2021 01:30 PM Reporting Lab: [facility] [address] [facility] [address] Performing Lab: [facility] [address] [facility] [address] POC ACT 367 s 84-139 Nov 29, 2021 11:58 AM [facility] POC ACT Specim en Type: BLOOD No comment enter ed. Ordering Provid er: IRENE BURNS TWO Report Released Date/Time: Dec 03, 2021 01:30 PM Reporting Lab: [facility] [address] [facility] [address] Performing Lab: [facility] [address] [facility] [address] POC ACT 338 s 84-139 Nov 29, 2021 11:53 [facility] FINGERSTICK GLUCOSE Speci men Type: BLOOD AM Comment: Save R esult Ordering Provid er: IRENE BURNS Report Released Date/Time: Nov 29, 2021 08:08 PM Reporting Lab: [facility] [address] [facility] [address] Performing Lab: [facility] [address] FINGERSTICK GLUCOSE 225 mg/dL H 70-100 Nov 29, 2021 11:30 AM [facility] POC ACT Specim en Type: BLOOD No comment enter ed. Ordering Provid er: IRENE BURNS Report Released Date/Time: Dec 03, 2021 01:30 PM Reporting Lab: [facility] [address] Performing Lab: [facility] [address] POC ACT 355 s 84-139 Nov 29, 2021 11:26 [facility] POC ABG/ELECTROLYTES Spec imen Type: ARTERIAL BLOOD AM Comment: Sample Type = ARTERIAL Ordering Provid er: IRENE BURNS Report Released Date/Time: Nov 29, 2021 07:53 PM Reporting Lab: [facility] [address] [facility] [address] Performing Lab: [facility] [address] POC PH 7.317 L 7.35-7.45 POC PCO2 [...] mg/dL 4.50-5.30 Nov 29, 2021 11:06 [facility] FINGERSTICK GLUCOSE Speci men Type: BLOOD AM No comment enter ed. Ordering Provid er: IRENE BURNS Report Released Date/Time: Nov 29, 2021 08:08 PM Reporting Lab: [facility] [address] [facility] [address] Performing Lab: [facility] [address] [facility] [address] FINGERSTICK GLUCOSE 221 mg/dL H 70-100 Nov 29, 2021 11:02 AM [facility] POC ACT Specim en Type: BLOOD No comment enter ed. Ordering Provid er: IRENE BURNS Report Released Date/Time: Dec 03, 2021 01:30 PM Reporting Lab: [facility] [address] [facility] [address] Performing Lab: [facility] [address] [facility] [address] POC ACT 294 s 84-139 Nov 29, 2021 10:26 AM [facility] POC ACT Specim en Type: BLOOD No comment enter ed. Ordering Provid er: IRENE BURNS Report Released Date/Time: Dec 03, 2021 01:30 PM Reporting Lab: [facility] [address] [facility] [address] Performing Lab: [facility] [address] [facility] [address] POC ACT 329 s 84-139 Nov 29, 2021 10:06 AM [facility] POC ACT Specim en Type: BLOOD No comment enter ed. Ordering Provid er: IRENE BURNS Report Released Date/Time: Dec 03, 2021 01:30 PM Reporting Lab: [facility] [address] [facility] [address] Performing Lab: [facility] [address] [address] [facility] [address] POC ACT 312 s 84-139 Nov 29, 2021 09:58 [facility] POC ABG/ELECTROLYTES Spec imen Type: ARTERIAL BLOOD AM Comment: Sample Type = ARTERIAL Ordering Provid er: IRENE BURNS Report Released Date/Time: Nov 29, 2021 07:53 PM Reporting Lab: [facility] [address] [facility] [address] Performing Lab: [facility] [address] [facility] [address] POC PH 7.334 L 7.35-7.45 POC PCO2 [...] mg/dL 4.50-5.30 Nov 29, 2021 09:56 [facility] FINGERSTICK GLUCOSE Speci men Type: BLOOD AM No comment enter ed. Ordering Provid er: IRENE BURNS Report Released Date/Time: Nov 29, 2021 08:08 PM Reporting Lab: [facility] [address] [facility] [address] Performing Lab: [facility] [address] [facility] [address] FINGERSTICK GLUCOSE 194 mg/dL H 70-100 Nov 29, 2021 09:45 AM [facility] POC ACT Specim en Type: BLOOD No comment enter ed. Ordering Provid er: IRENE BURNS TWO Report Released Date/Time: Dec 03, 2021 01:30 PM Reporting Lab: [facility] [address] [facility] [address] Performing Lab: [facility] [address] [facility] [address] POC ACT 269 s 84-139 Nov 29, 2021 08:59 AM [facility] POC ACT Specim en Type: BLOOD No comment enter ed. Ordering Provid er: IRENE BURNS Report Released Date/Time: Dec 03, 2021 01:30 PM Reporting Lab: [facility] [address] [facility] [address] Performing Lab: [facility] [address] [facility] [address] POC ACT 135 s 84-139 Nov 29, 2021 [facility] COVID-19 AND FLU/RSV Specime n Type: NASOPHARYNGEAL 07:05 AM DIAG PANEL(CEPHEID) Comment: Ce pheid GeneXpert (618) Ordering Provid er: KATHERINE FIGUEROA Report Released Date/Time: Oct 29, 2021 12:22 PM Reporting Lab: [facility] [address] [facility] [address] Performing Lab: [facility] [address] [facility] [address] COVID-19 (CEPHEID) Not Detected Not Dete cted INFLUENZA A (PCR) Not Detected Not Detec susanne INFLUENZA B (PCR) Not Detected Not Detec susanne RSV (PCR) Not Detected Not Detected Nov 29, 2021 [facility] BASIC METABOLIC Specimen Typ e: PLASMA 06:38 AM PANEL+MG No comment enter ed. Ordering Provid er: KATHERINE FIGUEROA Report Released Date/Time: Oct 29, 2021 12:22 PM Reporting Lab: [facility] [address] Performing Lab: [facility] [address] CREATININE 1.4 mg/dL H 0.7-1.2 UREA NITROGEN 23 mg/dL 8-26 GLUCOSE 201 mg/dL H 74-100 SODIUM 143 mmol/L 136-145 POTASSIUM 4.3 mmol/L 3.5-5.1 CHLORIDE 108 mmol/L H 98-107 CO2 28 mmol/L 22-29 CALCIUM 9.9 mg/dL 8.4-10.2 MAGNESIUM 1.9 mg/dL 1.6-2.6 ANION GAP 7 mmol/L 5-15 CREAT EGFR(CKD-EPI) 53 L >60 Nov 29, 2021 06:38 [facility] CBC Specimen Type: BLOOD AM No comment enter ed. Ordering Provid er: KATHERINE FIGUEROA Report Released Date/Time: Oct 29, 2021 12:22 PM Reporting Lab: [facility] [address] Performing Lab: [facility] [address] WBC 7.40 10*3/uL 4.0-11.0 RBC 5.17 10*6/uL 4.6-6.2 HGB 17.6 g/dL 13.5-17.9 HCT 52.7 41-54 MCV 101.9 fL H 80-100 MCH 34.0 pg H 27-33 MCHC 33.4 g/dL 32.0-37.5 PLT 88 10*3/uL L 150-400 MPV 14.3 fL H 7.4-10.4 RDW 14.4 11.5-14.5 IPF 18.0 H 0-10 Nov 29, 2021 [facility] PROTHROMBIN Specimen Typ e: PLASMA 06:38 AM TIME/INR No comment enter ed. Ordering Provid er: KATHERINE FIGUEROA Report Released Date/Time: Oct 29, 2021 12:22 PM Reporting Lab: [facility] [address] [facility] [address] Performing Lab: [facility] [address] [address] [facility] [address] .INR 1.1 0.8-1.1 .PT 13.1 s H 9.4-12.5 Nov 29, 2021 [facility] ACT PART Specimen Typ e: PLASMA 06:38 AM THROMBO TIME No comment enter ed. Ordering Provid er: KATHERINE FIGUEROA Report Released Date/Time: Oct 29, 2021 12:22 PM Reporting Lab: [facility] [address] [facility] [address] Performing Lab: [facility] [address] [facility] [address] APTT 33.3 s 25.1-36.5 Social History: Smoking [...] AM VA-VAAES TOBACCO USE CURRENT NRT [facility] DECLINE Tobacco Use History This section includes a history of the smoking, or tobacco- related health factors, that were collected on or before the date of the Encounter. The data comes from the [place] facility where the Encounter took place. 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 [facility] Nov 15, 2020 10:00 AM VA-TOBACCO USE MED NO [place] [facility] Nov 15, 2020 10:00 AM VA-TOBACCO USER EVERY DAY [facility] Jun 21, 2019 02:29 PM VA-TOBACCO USE 30 YEARS OR MORE [facility] Jun 21, 2019 02:29 PM VA-TOBACCO USE [facility]VICE [facility] Jun 21, 2019 02:29 PM VA-TOBACCO USE 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 [facility] Jun 21, 2019 02:29 PM [facility]ACCO [facility] Jun 21, 2019 02:29 PM VA-TOBACCO USE WI 30 MIN OF WAKEUP [facility] Jun 21, 2019 02:29 PM VA-TOBACCO USER EVERY DAY [facility] Jun 09, 2018 03:48 PM VA-TOBACCO USE 30 YEARS OR MORE [facility] Jun 09, 2018 03:48 PM VA-TOBACCO USE ADVICE [facility] Jun 09, 2018 03:48 PM VA-TOBACCO USE 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 [facility] Jun 09, 2018 03:48 PM VA-TOBACCO USE MED NO [facility] Jun 09, 2018 03:48 PM VA-TOBACCO USE WI 30 MIN OF WAKEUP [facility] Jun 09, 2018 03:48 PM VA-TOBACCO USER EVERY DAY [facility] Jun 20, 2017 07:53 AM CURRENT TOBACCO USER [facility] Jun 19, 2016 08:41 AM CURRENT TOBACCO USER [facility] Jun 21, 2015 08:15 AM CURRENT TOBACCO USER [facility] Mar 22, 2014 10:03 AM CURRENT TOBACCO USER [facility] Mar 25, 2013 11:01 AM CURRENT TOBACCO USER [facility] Feb 05, 2012 08:55 AM CURRENT TOBACCO USER [facility] January 01, 2011 09:26 AM CURRENT TOBACCO USER [facility] Mar 07, 2010 10:02 AM CURRENT TOBACCO USER [facility] Feb 21, 2009 08:17 AM CURRENT TOBACCO USER [facility] Nov 06, 2007 10:02 AM CURRENT TOBACCO USER [facility] January 02, 2007 10:33 AM CURRENT TOBACCO USER [facility] Advance Directives: All historical and current [...] 06, 2005 ADVANCE DIRECTIVE GANESH RODRIGUEZ [facility] Radiology Reports: +/- 30 days [...] the Encounter. The data comes from all [place] treatment facilities. Date/Time Radiology Report Provider Source Nov 30, 2021 07:05 AM CHEST 2 VIEWS PA AND LAT: MONET LUDWIG [facility] PAUL MICHELE [id number] -[birth year], [birth year] 9 M Exm Date: NOV 30, 2021@07:05 Req Phys: CHERRY MENDOZA Loc: 3LSOB/ 2@08:05 Img Loc: MAIN X-RAY Service: zzcard sect (Case [id number] COMPLETE) CHEST 2 VIEWS PA AND LAT (R AD Detailed) CPT:57214 Reason for Study: s/p upgrade ICD adding [...] pager listed below: User placing orders pager: [phone] LAST CREATININE 1.4 H (11/29/21) Report Status: Verified Date Reported: NOV 30, 2021 Date Verified: NOV 30, 2021 Package Handler E-Sig:/ES/MONET LUDWIG MD, FACR, C CD Report: [...] PM CHEST 1 VIEW: MAGDALENE DAVIDSON NOAH [facility] PAUL MICHELE [id number] -[birth year], [birth year] 9 M Exm Date: NOV 29, 2021@18:25 Req Phys: REJICHERRY Pat Loc: [facility] [address] A[facility] (Req'g Loc) Img Loc: MAIN X-RAY Service: Unknown (Case [id number] COMPLETE) CHEST 1 VIEW (RAD Detailed) CPT:82740 Reason for Study: s/p upgrade ICD adding an A l ead Clinical History: Immediate Post-Op Pacemaker/ICD placement [facility] IS NOT under investigation for COVID-19 or is COVID-19 negative s/p upgrade his ICD to dual chamber (adding an A lead) Responsible provider name and phone number to n otify for critical findings if other than user placing the order a nd pager listed below: User placing orders pager: [phone] LAST CREATININE 1.4 H (11/29/21) Report Status: Verified Date Reported: NOV 29, 2021 Date Verified: NOV 29, 2021 Package Handler E-Sig:/ES/MAGDALENE DAVIDSON MD Report: DATE/TIME REGISTERED: 11/29/2021 [...] Primary Interpreting Staff: MAGDALENE DAVIDSON MD, RADIOLOGIST (Package Handler) /LUAN Encounter Notes: All associated encounter notes This section contains the clinical notes associated to the Encounter. Date/Time Encounter Note(s) Provider Source Nov 28, 2021 02:02 PM [facility] TITLE: PATIENT CONTACT NOTE STANDARD TITLE: REPORT OF CONTACT DATE OF NOTE: NOV 28, 2021@14:02 ENTRY DATE: NOV 28, 2021@14:02:14 AUTHOR: PRITI MARIE EXP COSIGNER: URGENCY: STATUS: COMPLETED Patient contact Name of : PAUL MICHELE Name/Relationship of Contact if other than Veter an: Date & Time of Contact: Nov@14:02 Type of Contact: Other REMINDER LETTER Reason for Contact: 7 Days Reminder letter sent to to send [employer] data update. System - [employer] was mailed a reminder letter to upload / contact your director of casework services if there are technical difficulties or questions. /billy/ PRITI MARIE [employer] Signed: 11/28/2021 14:02 Receipt Acknowledged By: * AWAITING SIGNATURE * NILESH BURDICK
--- OUTSIDE RECORDS SUMMARY | 2022-04-02 16:15 | XMS_ITS | Encounter Summary ---
:1945 Author Organization [facility] Address [address] [place] [id number] Care Team Providers Name Role Phone WILLA [...] MEDICARE MEDICARE PART Jun 25, PART B [id number] Saumya QUINONES PATIENT (WNR) (M) B 2011 78A 0 AVID MEDICARE MEDICARE PART Sep 25, PART A [id number] Saumya QUINONES PATIENT (WNR) (M) A 2009 78A 0 AVID MEDICARE MEDICARE PART Sep 25, PART A [id number] Saumya MICHELE ATTHOMAS (WNR) (M) A 2009 [id number] [id number] AVID MEDICARE MEDICARE PART Sep 25, PART B [id number] Saumya MICHELE ATIENT (WNR) (M) B 2009 [id number] [id number] AVID Selected Encounter This section includes the information on record at [facility] for the Encounter. Date/Time Encounter Type Encounter Reason Provider Source Description Oct 12, 2021 EXT ECG>48HR<[id number] AMB ECG ICD-10-CM I47.2 VICENTE PELAEZ 09:08 AM RECORDING MONITORING Ventricular tachycardia with Provider Comments: Ventricular tachycardia IHE Encounter Template Text not used by AR Assessments - Encounter Diagnoses This section includes the primary and secondary diagnoses documented for the Encounter. Date/Time Primary/Secondary Diagnosis Name Provider Source Diagnosis Oct 12, 2021 PRIMARY Ventricular BENIGNO,VICENTE Brooks 09:12 AM tachycardia [facility] Plan of Treatment: Future Appointments (+ 6 months) and Future Tests (+/- 45 days) The Plan of Treatment section includes future care activities for the [facility] This section includes future appointments and future orders which are active, pending orscheduled.Future Appointments This section includes appointments that were scheduled to occur 6 months from the date of the Encounter, up to a maximum of 20 appointments. The data comes from all [facility] treatment [facility]. Appointment Date/Time Appointment Type Appointment Facili ty Name Nov 02, 2021 08:42 PM AMBULATORY [place] [facility] [place] Nov 05, 2021 11:30 AM [facility]ATORY [facility]ICINE [facility] Nov 09, 2021 09:30 AM AMBULATORY - NONE [facility] Nov 19, 2021 12:45 PM [place] [place] [facility] [place] Nov 21, 2021 10:00 AM AMBULATORY - SURGERY [facility] Nov 29, 2021 06:30 AM AMBULATORY - NONE [facility] Nov 29, 2021 07:30 AM AMBULATORY - MEDICINE [facility] Nov 29, 2021 08:00 AM AMBULATORY - MEDICINE [facility] Dec 21, 2021 09:30 AM AMBULATORY - NONE [facility] January 07, 2022 01:30 PM AMBULATORY - MEDICINE [facility] Feb 05, 2022 07:00 AM AMBULATORY - NONE [facility] Feb 07, 2022 09:30 AM AMBULATORY - NONE [facility] Feb 13, 2022 10:00 AM AMBULATORY - NONE [facility] Mar 21, 2022 09:30 AM AMBULATORY - NONE [facility] Active, Pending, and Scheduled Orders [...] Encounter. The data comes from all [facility]. Test Date/Time Test Type Test Details Facility Name Sep 25, 2021 03:21 PM Pharmacy - Clinic Infusion [facility] Order Lab Results: +/- 30 days of the encounter This section includes the Chemistry and Hematology Lab Results on record with AR for the patient. Radiology Reports and Pathology Reports are provided separately, in subsequent sections.Lab Results This section contains the Chemistry/Hematology Results that were resulted 30 days before or 30 daysafter the date of the Encounter. Date/Time Source Result Type Result - Unit Interpretation Reference Range Comment Sep 21, 2021 08:58 [facility] BASIC METABOLIC Specimen Type: PLASMA AM PANEL+MG No comment enter ed. Ordering Provid er: TUCKER JULIAN Report Released Date/Time: Sep 21, 2021 08:58 AM Reporting Lab: [facility] [id number] Performing Lab: [facility] [id number] CREATININE 1.3 mg/dL H 0.7-1.2 UREA NITROGEN 15 mg/dL 8-26 GLUCOSE 173 mg/dL H 74-100 SODIUM 142 mmol/L 136-145 POTASSIUM 4.0 mmol/L 3.5-5.1 CHLORIDE 107 mmol/L 98-107 CO2 29 mmol/L 22-29 CALCIUM 9.6 mg/dL 8.4-10.2 MAGNESIUM 2.0 mg/dL 1.6-2.6 ANION GAP 6 mmol/L 5-15 ESTIMATED GFR(eGFR) 54 L >60 Sep 21, 2021 08:55 AM [facility] HEMOGLOBIN A1C Specim en Type: BLOOD No comment enter ed. Ordering Provid er: JAYY SAMS Report Released Date/Time: Sep 14, 2021 11:24 AM Reporting Lab: [facility] [id number] Performing Lab: [facility] [id number] HEMOGLOBIN A1C 8.5 H 4.0-6.0 Social History: Smoking Status (Most current) and Tobacco Use (All prior to encounter date) This section includes the most current, and the historical, smoking and tobacco-related health factors from the AR facility where the Encounter took place.Current Smoking Status This section includes the most current smoking, or tobacco-related health factor, from the AR facility where the Encounter took place. Date/Time Current Smoking Status Comment Facility Mar 20, 2021 11:21 AM AR-VAAES TOBACCO USE CURRENT NRT [facility] DECLINE Tobacco Use History This section includes a history of the smoking, or tobacco- related health factors, that were collected on or before the date of the Encounter. The data comes from the AR facility where the Encounter took place. Date/Time Smoking Status/Tobacco Use Comment Facil ity Nov 15, 2020 10:00 AM VA-TOBACCO DOESNT USE WI 30 MIN [facility] WAKEUP Nov 15, 2020 10:00 AM VA-TOBACCO USE 30 YEARS OR MORE [facility] Nov 15, 2020 10:00 AM VA-TOBACCO USE ADVICE [place] [facility] Nov 15, 2020 10:00 AM VA-TOBACCO USE VOLUNTEER PATIENT REPRESENTATIVE NO [facility] Nov 15, 2020 10:00 AM VA-TOBACCO USE MED NO [place] [facility] Nov 15, 2020 10:00 AM VA-TOBACCO USER EVERY DAY [facility] Jun 21, 2019 02:29 PM VA-TOBACCO USE 30 YEARS OR MORE [facility] Jun 21, 2019 02:29 PM VA-TOBACCO USE ADVICE [place] [facility] Jun 21, 2019 02:29 PM VA-TOBACCO USE VOLUNTEER PATIENT REPRESENTATIVE NO [facility] Jun 21, 2019 02:29 PM VA-TOBACCO USE MED NO [place] [facility] Jun 21, 2019 02:29 PM VA-TOBACCO USE [place] 30 MIN OF WAKEUP [facility] Jun 21, 2019 02:29 PM VA-TOBACCO USER EVERY DAY [facility] Jun 09, 2018 03:48 PM VA-TOBACCO USE 30 YEARS OR MORE [facility] Jun 09, 2018 03:48 PM VA-TOBACCO USE ADVICE [place] [facility] Jun 09, 2018 03:48 PM VA-TOBACCO USE VOLUNTEER PATIENT REPRESENTATIVE NO [facility] Jun 09, 2018 03:48 PM VA-TOBACCO USE MED NO [place] [facility] Jun 09, 2018 03:48 PM VA-TOBACCO USE [place] 30 MIN OF WAKEUP [facility] Jun 09, 2018 03:48 PM VA-TOBACCO USER EVERY DAY [facility] Jun 20, 2017 07:53 AM CURRENT [...] 05, 2012 08:55 AM CURRENT TOBACCO USER [facility] January 01, 2011 09:26 AM [facility] Mar 07, 2010 10:02 [...] ALL of a patient's completed or amended AR Advance and Rescinded Directives. The entries below indicate that a directive exists for the patient, but an actual copy is not included with this document. The data comes from all [place] facilities. Date Advance Directives Provider Source Mar 06, 2005 ADVANCE DIRECTIVE GANESH RODRIGUEZ [facility] Encounter Notes: All associated encounter notes This section contains the clinical notes associated to the Encounter. Date/Time Encounter Note(s) Provider Source Oct 12, 2021 09:08 AM CARDIOLOGY DIAGNOSTIC STUDY CONSULT: VICENTE PELAEZ [facility] LOCAL TITLE: EKG CONSULT STANDARD TITLE: CARDIOLOGY DIAGNOSTIC STUDY CONS ULT DATE OF NOTE: OCT 12, 2021@09:08 ENTRY DATE: OCT 12, 2021@09:08:46 AUTHOR: VICENTE PELAEZ EXP COSIGNER: URGENCY: STATUS: COMPLETED Event monitor ([employer]) ECG REPORT 7 day heart monitor Sep [...] of 11.4% 6. No atrial fibrillation detected /es/ VICENTE PELAEZ MD PHYSICIAN Signed: 10/12/2021 09:12
--- OUTSIDE RECORDS SUMMARY | 2022-04-02 16:15 | XMS_ITS | Encounter Summary ---
:1945 Author Organization [facility] Address [address] [place] [id number] Care Team Providers Name Role Phone WILLA [...] MEDICARE MEDICARE PART Jun 25, PART B [id number] Saumya QUINONES PATIENT (WNR) (M) B 2011 78A 0 AVID MEDICARE MEDICARE PART Sep 25, PART A [id number] Saumya QUINONES PATIENT (WNR) (M) A 2009 78A 0 AVID MEDICARE MEDICARE PART Sep 25, PART A [id number] Saumya MICHELE (WNR) (M) A 2009 78A [id number] AVID MEDICARE MEDICARE PART Sep 25, PART B [id number] Saumya MICHELE (WNR) (M) B 2009 78A [id number] AVID Selected Encounter This section includes the information on record at [place] for the Encounter. 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 Date/Time Primary/Secondary Diagnosis Name Provider Source Diagnosis Nov 02, 2021 PRIMARY Presence of CHIDI [facility] 04:07 PM automatic EVETTE [facility] (implantable) cardiac defibrillator Plan of Treatment: Future Appointments (+ 6 months) and Future Tests (+/- 45 days) The Plan of Treatment section includes future care activities for the patient from [facility] [place] [facility] This section includes future appointments and future orders which are active, pending orscheduled.Future Appointments This section includes appointments that were scheduled to occur 6 months from the date of the Encounter, up to a maximum of 20 appointments. The data comes from all [place] treatment [facility]. Appointment Date/Time Appointment Type Appointment Facili ty Name Nov 05, 2021 11:30 AM AMBULATORY - MEDICINE [facility] Nov 09, 2021 09:30 AM AMBULATORY - NONE [facility] Nov 19, 2021 12:45 PM AM[facility]ULATORY - [facility]ICINE [facility] Nov 21, 2021 10:00 AM AMBULATORY - SURGERY [facility] Nov 29, 2021 06:30 AM AMBULATORY - NONE [facility] Nov 29, 2021 07:30 AM AMBULATORY - MEDICINE [facility] Nov 29, 2021 08:00 AM AMBULATORY - MEDICINE [facility] Dec 21, 2021 09:30 AM AMBULATORY [...] the Encounter. The data comes from all [place] treatment [facility]. Test Date/Time Test Type Test Details Facility Name Sep 25, 2021 03:21 PM Pharmacy - Clinic [facility] Infusion Order Nov 29, 2021 06:30 AM Laboratory - Blood Bank TYPE & SCREEN - LA B [facility] Order BLOOD SP Dec 15, 2021 12:00 AM Laboratory - [facility] PANEL+MG PLASMA SP Lab [...] Reporting Lab: [facility] [address] [facility] [address] Performing Lab: [facility] [address] [facility] [address] FINGERSTICK GLUCOSE 284 mg/dL H 70-100 Nov 30, 2021 09:47 AM [facility] ALBUMIN Specim en Type: PLASMA No comment enter ed. Ordering Provid er: ELIUD DINERO Report Released Date/Time: Nov 29, 2021 07:53 PM Reporting Lab: [facility] [address] [facility] [address] Performing Lab: [facility] [address] [facility] [address] ALBUMIN 3.4 g/dL L 3.5-5.2 Nov 30, 2021 09:47 [facility] BASIC METABOLIC Specimen Type: PLASMA AM PANEL+MG No comment enter ed. Ordering Provid er: ANGIE MALHOTRA Report Released Date/Time: Nov 29, 2021 08:12 PM Reporting Lab: [facility] [address] [facility] [address] Performing Lab: [facility] [address] [facility] [address] CREATININE 1.2 mg/dL 0.7-1.2 UREA NITROGEN 18 [...] 29, 2021 08:12 PM [facility] [address] [facility] [address] WBC 10.61 10*3/uL 4.0-11.0 RBC 4.33 10*6/uL [...] AM Reporting Lab: [facility] [address] [facility] [address] Performing Lab: [facility] [address] [facility] [address] FINGERSTICK GLUCOSE 165 mg/dL H 70-100 Nov 29, 2021 07:35 [facility] FINGERSTICK GLUCOSE Speci men Type: BLOOD PM Comment: [place] Nurse Notified Ordering Provid er: TEAM,CARDS TWO Report Released Date/Time: Nov 29, 2021 07:48 PM Reporting Lab: [facility] [address] [facility] [address] [facility]forming [facility] [address] FINGERSTICK GLUCOSE 160 mg/dL H 70-100 Nov 29, 2021 06:52 [facility] FINGERSTICK GLUCOSE Speci men Type: BLOOD PM Comment: [place] Nurse Notified Ordering Provid er: SAKSHI CROUCH Report Released Date/Time: Nov 29, 2021 07:04 PM Reporting Lab: [facility] [address] [facility] [address] Performing Lab: [facility] [address] FINGERSTICK GLUCOSE 161 mg/dL H 70-100 Nov 29, 2021 04:18 [facility] FINGERSTICK GLUCOSE Speci men Type: BLOOD PM No comment enter ed. Ordering Provid er: IRENE BURNS TWO Report Released Date/Time: Nov 29, 2021 08:08 PM Reporting Lab: [facility] [address] Performing Lab: [facility] [address] FINGERSTICK GLUCOSE 179 mg/dL H 70-100 Nov 29, 2021 03:26 [facility] POC ABG/ELECTROLYTES Spec imen Type: ARTERIAL BLOOD PM Comment: Sample Type = ARTERIAL Ordering Provid er: GRANTCARDS TWO Report Released Date/Time: Nov 29, 2021 07:53 PM Reporting [facility] [address] Performing Lab: [facility] [address] POC PH 7.321 L 7.35-7.45 POC PCO2 [...] 29, 2021 08:08 PM Reporting [facility] [address] Performing Lab: [facility] [address] [facility] [address] FINGERSTICK GLUCOSE 188 mg/dL H 70-100 Nov 29, 2021 02:06 [facility] POC ABG/ELECTROLYTES Spec imen Type: ARTERIAL BLOOD PM Comment: Sample Type = ARTERIAL Ordering Provid er: IRENE BURNS TWO Report Released Date/Time: Nov 29, 2021 07:53 PM Reporting Lab: [facility] [address] [facility] [address] Performing Lab: [facility] [address] [facility] [address] POC PH 7.313 L 7.35-7.45 POC PCO2 [...] Reporting Lab: [facility] [address] [facility] [address] Performing Lab: [facility] [address] [facility] [address] FINGERSTICK GLUCOSE 236 mg/dL H 70-100 Nov 29, 2021 01:52 PM [facility] POC ACT Specim en Type: BLOOD No comment enter ed. Ordering Provid er: IRENE BURNS TWO Report Released Date/Time: Dec 03, 2021 01:31 PM Reporting Lab: [facility] [address] [facility] [address] Performing Lab: [facility] [address] [facility] [address] POC ACT 135 s 84-139 Nov 29, 2021 01:16 PM [facility] POC ACT Specim en Type: BLOOD No comment enter ed. Ordering Provid er: IRENE BURNS TWO Report Released Date/Time: Dec 03, 2021 01:30 PM Reporting Lab: [facility] [address] Performing Lab: [facility] [address] POC ACT 355 s 84-139 Nov 29, 2021 12:49 PM [facility] POC ACT Specim en Type: BLOOD No comment enter ed. Ordering Provid er: IRENE BURNS TWO Report Released Date/Time: Dec 03, 2021 01:30 PM Reporting Lab: [facility] [address] Performing Lab: [facility] [address] POC ACT 367 s 84-139 Nov 29, 2021 12:48 [facility] POC ABG/ELECTROLYTES Spec imen Type: ARTERIAL BLOOD PM Comment: Sample Type = ARTERIAL Ordering Provid er: IRENE BURNS TWO Report Released Date/Time: Nov 29, 2021 07:53 PM Reporting Lab: [facility] [address] [facility] [address] POC PH 7.289 L 7.35-7.45 POC PCO2 [...] 08:08 PM Reporting Lab: [facility] [address] Performing Lab: [facility] [address] FINGERSTICK GLUCOSE 186 mg/dL H 70-100 Nov 29, 2021 12:26 PM [facility] POC ACT Specim en Type: BLOOD No comment enter ed. Ordering Provid er: IRENE BURNS Report Released Date/Time: Dec 03, 2021 01:30 PM Reporting Lab: [facility] [address] [facility] [address] Performing Lab: [facility] [address] [facility] [address] POC ACT 367 s 84-139 Nov 29, 2021 11:58 AM [facility] POC ACT Specim en Type: BLOOD No comment enter ed. Ordering Provid er: IRENE BURNS Report Released Date/Time: Dec 03, 2021 01:30 PM Reporting Lab: [facility] [address] [facility] [address] Performing Lab: [facility] [address] [facility] [address] POC ACT 338 s 84-139 Nov 29, 2021 11:53 [facility] FINGERSTICK GLUCOSE Speci men Type: BLOOD AM Comment: Save R esult Ordering Provid er: IRENE BURNS Report Released Date/Time: Nov 29, 2021 08:08 PM Reporting Lab: [facility] [address] [facility] [address] Performing Lab: [facility] [address] [facility] [address] FINGERSTICK GLUCOSE 225 mg/dL H 70-100 Nov 29, 2021 11:30 AM [facility] POC ACT Specim en Type: BLOOD No comment enter ed. Ordering Provid er: IRENE BURNS Report Released Date/Time: Dec 03, 2021 01:30 PM Reporting Lab: [facility] [address] [facility] [address] Performing Lab: [facility] [address] [facility] [address] POC ACT 355 s 84-139 Nov 29, 2021 11:26 [facility] POC ABG/ELECTROLYTES Spec imen Type: ARTERIAL BLOOD AM Comment: Sample Type = ARTERIAL Ordering Provid er: IRENE BURNS Report Released Date/Time: Nov 29, 2021 07:53 PM Reporting Lab: [facility] [address] [facility] [address] Performing Lab: [facility] [address] [facility] [address] POC PH 7.317 L 7.35-7.45 POC PCO2 [...] Lab: [facility] [address] [facility] [address] Performing Lab: [facility] [address] [facility] [address] FINGERSTICK GLUCOSE 221 mg/dL H 70-100 Nov 29, 2021 11:02 AM [facility] POC ACT Specim en Type: BLOOD No comment enter ed. Ordering Provid er: IRENE BURNS TWO Report Released Date/Time: Dec 03, 2021 01:30 PM Reporting Lab: [facility] [address] [facility] [address] Performing Lab: [facility] [address] [facility] [address] POC ACT 294 s 84-139 Nov 29, 2021 10:26 AM [facility] POC ACT Specim en Type: BLOOD No comment enter ed. Ordering Provid er: IRENE BURNS TWO Report Released Date/Time: Dec 03, 2021 01:30 PM Reporting Lab: [facility] [address] [facility] [address] Performing Lab: [facility] [address] [facility] [address] POC ACT 329 s 84-139 Nov 29, 2021 10:06 AM [facility] POC ACT Specim en Type: BLOOD No comment enter ed. Ordering Provid er: IRENE BURNS TWO Report Released Date/Time: Dec 03, 2021 01:30 PM Reporting Lab: [facility] [address] [facility] [address] Performing Lab: [facility] [address] [facility] [address] POC ACT 312 s 84-139 Nov 29, 2021 09:58 [facility] POC ABG/ELECTROLYTES Spec imen Type: ARTERIAL BLOOD AM Comment: Sample Type = ARTERIAL Ordering Provid er: IRENE BURNS TWO Report Released Date/Time: Nov 29, 2021 07:53 PM Reporting Lab: [facility] [address] Performing Lab: [facility] [address] POC PH 7.334 L 7.35-7.45 POC PCO2 [...] 08:08 PM Reporting Lab: [facility] [address] Performing Lab: [facility] [address] FINGERSTICK GLUCOSE 194 mg/dL H 70-100 Nov 29, 2021 09:45 AM [facility] POC ACT Specim en Type: BLOOD No comment enter ed. Ordering Provid er: IRENE BURNS TWO Report Released Date/Time: Dec 03, 2021 01:30 PM Reporting Lab: [facility] [address] Performing Lab: [facility] [address] POC ACT 269 s 84-139 Nov 29, 2021 08:59 AM [facility] POC ACT Specim en Type: BLOOD No comment enter ed. Ordering Provid er: IRENE BURNS TWO Report Released Date/Time: Dec 03, 2021 01:30 PM Reporting Lab: [facility] [address] Performing Lab: [facility] [address] [facility] [address] POC ACT 135 s 84-139 Nov 29, 2021 [facility] COVID-19 AND FLU/RSV Specime n Type: NASOPHARYNGEAL 07:05 AM DIAG PANEL(CEPHEID) Comment: Ce pheid GeneXpert (618) Ordering Provid er: KATHERINE FIGUEROA Report Released Date/Time: Oct 29, 2021 12:22 PM Reporting Lab: [facility] [address] Performing Lab: [facility] [address] COVID-19 (CEPHEID) Not Detected Not Dete cted [...] 12:22 PM Reporting Lab: [facility] [address] [facility] [address] Performing Lab: [facility] [address] CREATININE 1.4 mg/dL H 0.7-1.2 UREA NITROGEN [...] Oct 29, 2021 12:22 PM Reporting Lab: [facility] I [facility] [address] Performing Lab: [facility] [address] [facility] [address] WBC 7.40 10*3/uL 4.0-11.0 RBC 5.17 10*6/uL [...] 12:22 PM Reporting Lab: [facility] [address] Performing Lab: [facility] [address] .INR 1.1 0.8-1.1 .PT 13.1 s H 9.4-12.5 Nov 29, 2021 [facility] ACT PART Specimen Typ e: PLASMA 06:38 AM THROMBO TIME No comment enter ed. Ordering Provid er: KATHERINE FIGUEROA Report Released Date/Time: Oct 29, 2021 12:22 PM Reporting Lab: [facility] [address] Performing Lab: [facility] [address] APTT 33.3 s 25.1-36.5 Social History: Smoking [...] Comment Facility Mar 20, 2021 11:21 AM [place]-VAAE TOBACCO USE CURRENT NRT [facility] DECLINE [...] 2020 10:00 AM [facility] Nov 15, 2020 10:00 AM VA-TOBACCO USE EARLY LEARNING TEACHER NO [facility] Nov 15, 2020 10:00 AM [place]-TO[place]ACCO USE MED [place] [facility] Nov 15, 2020 10:00 AM VA-TOBACCO USER EVERY DAY [facility] Jun 21, 2019 02:29 PM VA-TOBACCO USE 30 YEARS OR MORE [facility] Jun 21, 2019 02:29 PM VA-TOBACCO USE ADVICE [place] [facility] Jun 21, 2019 02:29 PM VA-TOBACCO USE EARLY LEARNING TEACHER NO [facility] Jun 21, 2019 02:29 [...] Jun 09, 2018 03:48 PM VA-TOBACCO USE EARLY LEARNING TEACHER NO [facility] Jun 09, 2018 03:48 [...] the Encounter. The data comes from all [place] treatment facilities. Date/Time Radiology Report Provider Source Nov 30, 2021 07:05 AM CHEST 2 VIEWS PA AND LAT: MONET LUDWIG [facility] PAUL MICHELE [id number] -[birth year] M Exm Date: NOV 30, 2021@07:05 Req Phys: CHERRY MENDOZA Loc: 3LSOB/ 2@08:05 Img Loc: MAIN X-RAY Service: zzcard sect (Case [id number] COMPLETE) CHEST 2 VIEWS PA AND LAT (R AD Detailed) CPT:72959 Reason for Study: s/p upgrade ICD adding an A l ead Clinical History: Post ICD or Pacemaker: Verify Lead Placement. [place] IS NOT under investigation for COVID-19 or is COVID-19 negative s/p upgrade ICD adding an A lead Responsible pr ovider name and phone number to notify for critical findings if other than user placing the order and pager listed below: User placing orders pager: [phone] LAST CREATININE 1.4 H (11/29/21) Report Status: Verified Date Reported: NOV 30, 2021 Date Verified: NOV 30, 2021 Pump Installer E-Sig:/ES/MONET LUDWIG MD, FACR, C CD Report: [...] 06:25 PM CHEST 1 VIEW: MAGDALENE DAVIDSON [facility] PA[facility] MIC[facility] [id number] -[birth year] M Exm Date: NOV 29, 2021@18:25 Req Phys: CHERRY MENDOZA Loc: [facility] [address] A[facility] (Req'g Loc) Img Loc: MAIN X-RAY Service: Unknown (Case [id number] COMPLETE) CHEST 1 VIEW (RAD Detailed) CPT:38780 Reason for Study: s/p upgrade ICD adding [...] pager listed below: User placing orders pager: [phone] LAST CREATININE 1.4 H (11/29/21) Report Status: Verified Date Reported: NOV 29, 2021 Date Verified: NOV 29, 2021 Pump Installer E-Sig:/BILLY/MAGDALENE DAVIDSON MD Report: DATE/TIME REGISTERED: 11/29/2021 [...] Primary Interpreting Staff: MAGDALENE DAVIDSON MD, RADIOLOGIST (Pump Installer) /LUAN Encounter Notes: All associated encounter notes This section contains the clinical notes associated to the Encounter. Date/Time Encounter Note(s) Provider Source Nov 02, 2021 03:57 CARDIOLOGY DIAGNOSTIC STUDY NOTE: NESHA DAI [facility] PM LOCAL TITLE: CARDIOLOGY ELECTROPHYSIOLOGY NOTE RET STANDARD TITLE: CARDIOLOGY DIAGNOSTIC STUDY NOTE DATE OF NOTE: NOV 02, 2021@15:57 ENTRY DATE: NOV 02, 2021@15:57:37 AUTHOR: LUIS MURILLO EXP COSIGNER: URGENCY: STATUS: COMPLETED Patient's Medtronic single chamber ICD checked v ia [facility] 11/02/21 National Surveillance Center ([facility]) comments: Battery voltage is 2.61 V (RELIGION TEACHER =2.63 V), but patient alert has not been triggered ye for review [facility]'s comments: Scheduled RF [facility] on sin gle chamber ICD with battery noted to be close to ANJANA. Planned gen ch da with RA lead and ablation 11/29/21. Report available via [employer] [facility]. Indication: ICMP/CHF Implant Date: 02-04-2012 Electrician Telephone: Medtronic Model: Protecta Single Chamber Active Outpatient Medications (including Supplie s): Active [...] BY MOUTH EVERY DAY FOR HEART 11) NITROGLYCERIN 0.4MG SL TAB DISSOLVE ONE TABL ET UNDER ACTIVE THE TONGUE ONCE FOR CHEST PAIN * MAY REPEAT SAMI RY 5 MINUTES--NO MORE THAN 3 TOTAL 12) OLODATEROL/TIOTROP 2.5MCG/ACTUAT 60D INH INH COLE 2 ACTIVE PUFFS BY INHALATION EVERY DAY TO PREVENT TROUBL E BREATHING 13) SACUBITRIL 24MG/VALSARTAN 26MG TAB TAKE 1 TA BLET BY ACTIVE MOUTH TWICE A DAY FOR HEART FAILURE 14) SEMAGLUTIDE 1MG/0.75ML INJ PEN 3ML INJECT 1M G UNDER ACTIVE THE SKIN EVERY WEEK FOR DIABETES -REFRIGERATE -MULTIPLE DOSES PER PEN 15) VITAMIN B COMPLEX CAP TAKE 1 CAPSULE BY MOUT H EVERY ACTIVE DAY FOR NUTRITION Active Non-VA Medications Status 1) Non-VA ASCORBIC ACID 500MG TAB 1000MG EVERY D AY ACTIVE 2) Non-VA MARINE LIPID (FISH OIL) CAP,ORAL MOUTH ACTIVE 3) Non-VA MULTIVITAMINS CAP/TAB MOUTH ACTIVE 4) Non-VA NON VA MED NOT LISTED MISCELLANEOUS CA TS CLAW ACTIVE MOUTH 19 Total Medications Next Remote: 02/08/22 Next EP device: 11/29/21 gen change /billy/ JR MURILLO, EPCS EP Clinical Specialist Signed: 11/02/2021 16:07
--- OUTSIDE RECORDS SUMMARY | 2022-04-02 16:15 | XMS_ITS | Encounter Summary ---
:1945 Author Organization [facility] Address [address] [place] [address] Care Team Providers Name Role Phone CROUCH [...] MEDICARE MEDICARE PART Jun 25, PART B [id number] Saumya QUINONES PATIENT (WNR) (M) B 2011 78A 0 AVID MEDICARE MEDICARE PART Sep 25, PART A [id number] Saumya QUINONES PATIENT (WNR) (M) A 2009 78A 0 AVID MEDICARE MEDICARE PART Sep 25, PART A [id number] Saumya MICHELE (WNR) (M) A 2009 78A [id number] AVID MEDICARE MEDICARE PART Sep 25, PART B [id number] Saumya MICHELE (WNR) (M) B 2009 [id number] [id number] AVID Selected Encounter This section includes the information on record at [place] for the Encounter. Date/Time Encounter Type Encounter Reason Provider Source Description Nov 16, 2021 Outpatient HT NON-VIDEO ICD-10-CM I50.9 DOE BURDICK 08:55 AM Encounter MONITORING Heart failure, N M unspecified with Provider Comments: Heart Failure, unspecified IHE Encounter Template Text not used by [place] Assessments - Encounter Diagnoses This section includes the primary and secondary diagnoses documented for the Encounter. Date/Time Primary/Secondary Diagnosis Name Provider Source Diagnosis Nov 16, 2021 PRIMARY Heart failure, NILESH BURDICK [facility] 08:56 AM unspecified [facility] Plan of Treatment: Future Appointments (+ 6 months) and Future Tests (+/- 45 days) The Plan of Treatment section includes future care activities for the patient from all [place] [facility] This section includes future appointments and future orders which are active, pending orscheduled.Future Appointments This section includes appointments that were scheduled to occur 6 months from the date of the Encounter, up to a maximum of 20 appointments. The data comes from all [place] treatment [facility]. Appointment Date/Time Appointment Type Appointment Facili ty Name Nov 19, 2021 12:45 PM AMBULATORY - MEDICINE [facility] Nov 21, 2021 10:00 AM AMBULATORY - SURGERY [facility] Nov 29, 2021 06:30 AM AMBULATORY - NONE [facility] Nov 29, 2021 07:30 AM AMBULATORY - MEDICINE [facility] Nov 29, 2021 08:00 AM AMBULATORY - MEDICINE [facility] Dec 21, 2021 09:30 AM AMBULATORY - NONE [facility] January 07, 2022 01:30 PM AMBULATORY - MEDICINE [facility] Feb 05, 2022 07:00 AM AMBULATORY - NONE [facility] Feb 07, 2022 09:30 AM AMBULATORY - NONE [facility] Feb 13, 2022 10:00 AM AMBULATORY - NONE [facility] Mar 21, 2022 09:30 AM AMBULATORY - NONE [facility] Active, Pending, and Scheduled [...] The data comes from all [place] treatment [facility]. Test Date/Time Test Type Test Details Facility [...] Lab: [facility] [address] [facility] [address] Performing Lab: [facility] [address] [facility] [address] FINGERSTICK GLUCOSE 284 mg/dL H 70-100 Nov 30, 2021 09:47 AM [facility] ALBUMIN Specim en Type: PLASMA No comment enter ed. Ordering Provid er: ELIUD DINERO Report Released Date/Time: Nov 29, 2021 07:53 PM Reporting Lab: [facility] [address] [facility] [address] Performing Lab: [facility] [address] [facility] [address] ALBUMIN 3.4 g/dL L 3.5-5.2 Nov 30, 2021 09:47 [facility] BASIC METABOLIC Specimen Type: PLASMA AM PANEL+MG No comment enter ed. Ordering Provid er: ANGIE MALHOTRA Report Released Date/Time: Nov 29, 2021 08:12 PM Reporting Lab: [facility] [address] [facility] [address] Performing Lab: [facility] [address] [facility] [address] CREATININE 1.2 mg/dL 0.7-1.2 UREA NITROGEN 18 [...] [facility] [address] [facility] [address] Performing Lab: [facility] [address] [facility] [address] WBC 10.61 10*3/uL 4.0-11.0 RBC 4.33 10*6/uL [...] Comment: Abram Welch Notified Ordering Provid er: IRENE BURNS TWO Report Released Date/Time: Nov 30, 2021 06:32 AM Reporting Lab: [facility] [address] [facility] [address] Performing Lab: [facility] [address] [facility] [address] FINGERSTICK GLUCOSE 165 mg/dL H 70-100 Nov 29, 2021 07:35 [facility] FINGERSTICK GLUCOSE Speci men Type: BLOOD PM Comment: Abram rock Nurse Notified Ordering Provid er: IRENE BURNS TWO Report Released Date/Time: Nov 29, 2021 07:48 PM Reporting Lab: [facility] [address] [facility] [address] Performing Lab: [facility] [address] [facility] [address] FINGERSTICK GLUCOSE 160 mg/dL H 70-100 Nov 29, 2021 06:52 [facility] FINGERSTICK GLUCOSE Speci men Type: BLOOD PM Comment: Abram rock Nurse Notified Ordering Provid er: SAKSHI CROUCH Report Released Date/Time: Nov 29, 2021 07:04 PM Reporting Lab: [facility] [address] [facility] [address] Performing Lab: [facility] [address] [facility] [address] FINGERSTICK GLUCOSE 161 mg/dL H 70-100 Nov 29, 2021 04:18 [facility] FINGERSTICK GLUCOSE Speci men Type: BLOOD PM No comment enter ed. Ordering Provid er: GRANT,CARDS TWO Report Released Date/Time: Nov 29, 2021 08:08 PM Reporting Lab: [facility] [address] Performing Lab: [facility] [address] FINGERSTICK GLUCOSE 179 mg/dL H 70-100 Nov 29, 2021 03:26 [facility] POC ABG/ELECTROLYTES Spec imen Type: ARTERIAL BLOOD PM Comment: Sample Type = ARTERIAL Ordering Provid er: TEAMCARDS TWO Report Released Date/Time: Nov 29, 2021 07:53 PM Reporting Lab: [facility] [address] Performing Lab: [facility] [address] POC PH 7.321 L 7.35-7.45 POC PCO2 [...] mg/dL L 4.50-5.30 Nov 29, 2021 03:24 [facility] FINGERSTICK GLUCOSE Speci men Type: BLOOD PM Comment: Save R esult Ordering Provid er: TEAM,CARDS TWO Report Released Date/Time: Nov 29, 2021 08:08 PM Reporting Lab: [facility] [address] Performing Lab: [facility] [address] FINGERSTICK GLUCOSE 188 mg/dL H 70-100 Nov 29, 2021 02:06 [facility] POC ABG/ELECTROLYTES Spec imen Type: ARTERIAL BLOOD PM Comment: Sample Type = ARTERIAL Ordering Provid er: TEAM,CARDS TWO Report Released Date/Time: Nov 29, 2021 07:53 PM Reporting Lab: [facility] [address] [facility] [address] Performing Lab: [facility] [address] [facility] [address] POC PH 7.313 L 7.35-7.45 POC PCO2 [...] mg/dL L 4.50-5.30 Nov 29, 2021 02:04 [facility] FINGERSTICK GLUCOSE Speci men Type: BLOOD PM Comment: Save R esult Ordering Provid er: IRENE BURNS TWO Report Released Date/Time: Nov 29, 2021 08:08 PM Reporting Lab: [facility] [address] [facility] [address] Performing Lab: [facility] [address] [facility] [address] FINGERSTICK GLUCOSE 236 mg/dL H 70-100 Nov 29, 2021 01:52 PM [facility] POC ACT Specim en Type: BLOOD No comment enter ed. Ordering Provid er: IRENE BURNS TWO Report Released Date/Time: Dec 03, 2021 01:31 PM Reporting Lab: [facility] [address] [facility] [address] Performing Lab: [facility] [address] [facility] [address] POC ACT 135 s 84-139 Nov 29, 2021 01:16 PM [facility] POC ACT Specim en Type: BLOOD No comment enter ed. Ordering Provid er: IRENE BURNS TWO Report Released Date/Time: Dec 03, 2021 01:30 PM Reporting Lab: [facility] [address] [facility] [address] Performing Lab: [facility] [address] [facility] [address] POC ACT 355 s 84-139 Nov 29, 2021 12:49 PM [facility] POC ACT Specim en Type: BLOOD No comment enter ed. Ordering Provid er: IRENE BURNS TWO Report Released Date/Time: Dec 03, 2021 01:30 PM Reporting Lab: [facility] [address] [facility] [address] Performing Lab: [facility] [address] [facility] [address] POC ACT 367 s 84-139 Nov 29, 2021 12:48 [facility] POC ABG/ELECTROLYTES Spec imen Type: ARTERIAL BLOOD PM Comment: Sample Type = ARTERIAL Ordering Provid er: IRENE BURNS TWO Report Released Date/Time: Nov 29, 2021 07:53 PM Reporting Lab: [facility] [address] [facility] [address] Performing Lab: [facility] [address] [facility] [address] POC PH 7.289 L 7.35-7.45 POC PCO2 [...] 4.7 mg/dL 4.50-5.30 Nov 29, 2021 12:45 [facility] FINGERSTICK GLUCOSE Speci men Type: BLOOD PM Comment: Save R esult Ordering Provid er: GRANTCARDS TWO Report Released Date/Time: Nov 29, 2021 08:08 PM Reporting Lab: [facility] [address] [facility] [address] Performing Lab: [facility] [address] [facility] [address] FINGERSTICK GLUCOSE 186 mg/dL H 70-100 Nov 29, 2021 12:26 PM [facility] POC ACT Specim en Type: BLOOD No comment enter ed. Ordering Provid er: IRENE BURNS TWO Report Released Date/Time: Dec 03, 2021 01:30 PM Reporting Lab: [facility] [address] [facility] [address] Performing Lab: [facility] [address] [facility] [address] POC ACT 367 s 84-139 Nov 29, 2021 11:58 AM [facility] POC ACT Specim en Type: BLOOD No comment enter ed. Ordering Provid er: IRENE BURNS Report Released Date/Time: Dec 03, 2021 01:30 PM Reporting Lab: [facility] [address] [facility] [address] Performing Lab: [facility] [address] [facility] [address] POC ACT 338 s 84-139 Nov 29, 2021 11:53 [facility] FINGERSTICK GLUCOSE Speci men Type: BLOOD AM Comment: Save R esult Ordering Provid er: IRENE BURNS Report Released Date/Time: Nov 29, 2021 08:08 PM Reporting Lab: [facility] [address] [facility] [address] Performing Lab: [facility] [address] [facility] [address] FINGERSTICK GLUCOSE 225 mg/dL H 70-100 Nov 29, 2021 11:30 AM [facility] POC ACT Specim en Type: BLOOD No comment enter ed. Ordering Provid er: IRENE BURNS Report Released Date/Time: Dec 03, 2021 01:30 PM Reporting Lab: [facility] [address] [facility] [address] Performing Lab: [facility] [address] [facility] [address] POC ACT 355 s 84-139 Nov 29, 2021 11:26 [facility] POC ABG/ELECTROLYTES Spec imen Type: ARTERIAL BLOOD AM Comment: Sample Type = ARTERIAL Ordering Provid er: IRENE BURNS Report Released Date/Time: Nov 29, 2021 07:53 PM Reporting Lab: [facility] [address] [facility] [address] Performing Lab: [facility] [address] [facility] [address] POC PH 7.317 L 7.35-7.45 POC PCO2 [...] 4.8 mg/dL 4.50-5.30 Nov 29, 2021 11:06 [facility] FINGERSTICK GLUCOSE Speci men Type: BLOOD AM No comment enter ed. Ordering Provid er: IRENE BURNS Report Released Date/Time: Nov 29, 2021 08:08 PM Reporting Lab: [facility] [address] [facility] [address] Performing Lab: [facility] [address] [facility] [address] FINGERSTICK GLUCOSE 221 mg/dL H 70-100 Nov 29, 2021 11:02 AM [facility] POC ACT Specim en Type: BLOOD No comment enter ed. Ordering Provid er: IRENE BURNS Report Released Date/Time: Dec 03, 2021 01:30 PM Reporting Lab: [facility] [address] [facility] [address] Performing Lab: [facility] [address] [facility] [address] POC ACT 294 s 84-139 Nov 29, 2021 10:26 AM [facility] POC ACT Specim en Type: BLOOD No comment enter ed. Ordering Provid er: IRENE BURNS Report Released Date/Time: Dec 03, 2021 01:30 PM Reporting Lab: [facility] [address] [facility] [address] Performing Lab: [facility] [address] [facility] [address] POC ACT 329 s 84-139 Nov 29, 2021 10:06 AM [facility] POC ACT Specim en Type: BLOOD No comment enter ed. Ordering Provid er: IRENE BURNS Report Released Date/Time: Dec 03, 2021 01:30 PM Reporting Lab: [facility] [address] [facility] [address] Performing Lab: [facility] [address] [facility] [address] POC ACT 312 s 84-139 Nov 29, 2021 09:58 [facility] POC ABG/ELECTROLYTES Spec imen Type: ARTERIAL BLOOD AM Comment: Sample Type = ARTERIAL Ordering Provid er: IRENE BURNS TWO Report Released Date/Time: Nov 29, 2021 07:53 PM Reporting Lab: [facility] [address] [facility] [address] Performing Lab: [facility] [address] [facility] [address] POC PH 7.334 L 7.35-7.45 POC PCO2 [...] 4.9 mg/dL 4.50-5.30 Nov 29, 2021 09:56 [facility] FINGERSTICK GLUCOSE Speci men Type: BLOOD AM No comment enter ed. Ordering Provid er: IRENE BURNS TWO Report Released Date/Time: Nov 29, 2021 08:08 PM Reporting Lab: [facility] [address] [facility] [address] Performing Lab: [facility] [address] [facility] [address] FINGERSTICK GLUCOSE 194 mg/dL H 70-100 Nov 29, 2021 09:45 AM [facility] POC ACT Specim en Type: BLOOD No comment enter ed. Ordering Provid er: IRENE BURNS TWO Report Released Date/Time: Dec 03, 2021 01:30 PM Reporting Lab: [facility] [address] [facility] [address] Performing Lab: [facility] [address] [facility] [address] POC ACT 269 s 84-139 Nov 29, 2021 08:59 AM [facility] POC ACT Specim en Type: BLOOD No comment enter ed. Ordering Provid er: IRENE BURNS TWO Report Released Date/Time: Dec 03, 2021 01:30 PM Reporting Lab: [facility] [address] [facility] [address] Performing Lab: [facility] [address] [facility] [address] POC ACT 135 s 84-139 Nov 29, 2021 [facility] COVID-19 AND FLU/RSV Specime n Type: NASOPHARYNGEAL 07:05 AM DIAG PANEL(CEPHEID) Comment: Ce pheid GeneXpert (618) Ordering Provid er: KATHERINE FIGUEROA Report Released Date/Time: Oct 29, 2021 12:22 PM Reporting Lab: [facility] [address] Performing Lab: [facility] [address] COVID-19 (CEPHEID) Not Detected Not Dete cted INFLUENZA A (PCR) Not Detected Not Detec susanne INFLUENZA B (PCR) Not Detected Not Detec susanne RSV (PCR) Not Detected Not Detected Nov 29, 2021 [facility] BASIC METABOLIC Specimen Typ e: PLASMA 06:38 AM PANEL+MG No comment enter ed. Ordering Provid er: KATHERINE FIGUEROA Report Released Date/Time: Oct 29, 2021 12:22 PM Reporting Lab: [facility] [address] Performing Lab: [facility] [address] CREATININE 1.4 mg/dL H 0.7-1.2 UREA NITROGEN [...] PM Reporting Lab: [facility] [address] Performing Lab: [facility] [address] WBC 7.40 10*3/uL 4.0-11.0 RBC 5.17 10*6/uL 4.6-6.2 HGB 17.6 g/dL 13.5-17.9 HCT 52.7 41-54 MCV 101.9 fL H 80-100 MCH 34.0 pg H 27-33 MCHC 33.4 g/dL 32.0-37.5 PLT 88 10*3/uL L 150-400 MPV 14.3 fL H 7.4-10.4 RDW 14.4 11.5-14.5 IPF 18.0 H 0-10 Nov 29, 2021 [facility] PROTHROMBIN Specimen Typ e: PLASMA 06:38 AM TIME/INR No comment enter ed. Ordering Provid er: KATHERINE FIGUEROA Report Released Date/Time: Oct 29, 2021 12:22 PM Reporting Lab: [facility] [address] Performing Lab: [facility] [address] .INR 1.1 0.8-1.1 .PT 13.1 s H 9.4-12.5 Nov 29, 2021 [facility] ACT PART Specimen Typ e: PLASMA 06:38 AM THROMBO TIME No comment enter ed. 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 [facility] Jun 21, 2019 [...] 03:48 PM [facility] Jun 09, 2018 03:48 PM 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 [facility] Jun 09, 2018 03:48 PM VA-TOBACCO USE MED NO [place] [facility] Jun 09, 2018 03:48 PM VA-TOBACCO USE WI 30 MIN OF WAKEUP [facility] Jun 09, 2018 03:48 PM VA-TOBACCO USER EVERY DAY [facility] Jun 20, 2017 07:53 AM CURRENT TOBACCO USER [facility] Jun 19, 2016 08:41 AM CURRENT TOBACCO USER [facility] Jun 21, 2015 08:15 AM CURRENT TOBACCO USER [facility] Mar 22, 2014 10:03 AM CURRENT TOBACCO USER [facility] Mar 25, 2013 11:01 AM CURRENT TOBACCO USER [facility] Feb 05, 2012 08:55 AM CURRENT TOBACCO USER [facility] January 01, 2011 09:26 AM CURRENT TOBACCO USER [facility] Mar 07, 2010 10:02 AM CURRENT TOBACCO USER [facility] Feb 21, 2009 08:17 AM CURRENT TOBACCO USER [facility] Nov 06, 2007 10:02 AM [...] MONET LUDWIG [facility] PAUL MICHELE [id number] -[birth year] M Exm Date: NOV 30, 2021@07:05 Req Phys: CHERRY MENDOZA Loc: 3LSOB/ 2@08:05 Img Loc: MAIN X-RAY Service: zzcard sect (Case [id number] COMPLETE) CHEST 2 VIEWS PA AND LAT (R AD Detailed) CPT:25613 Reason for Study: s/p upgrade ICD adding [...] pager listed below: User placing orders pager: [phone] LAST CREATININE 1.4 H (11/29/21) Report Status: Verified Date Reported: NOV 30, 2021 Date Verified: NOV 30, 2021 Router Operator E-Sig:/ES/MONET LUDWIG MD, FACR, C CD [...] 06:25 PM CHEST 1 VIEW: MAGDALENE DAVIDSON [facility] [place] [id number] -[birth year] M Exm Date: NOV 29, 2021@18:25 Req Phys: CHERRY MENDOZA Pat Loc: [facility] [address] [facility] (Req'g Loc) Img Loc: MAIN X-RAY Service: Unknown (Case [id number] COMPLETE) CHEST 1 VIEW (RAD Detailed) CPT:31614 Reason for Study: s/p upgrade ICD adding an A l ead Clinical History: Immediate Post-Op Pacemaker/ICD placement [place] IS NOT under investigation for COVID-19 or is COVID-19 negative s/p upgrade his ICD to dual chamber (adding an A lead) Responsible provider name and phone number to n otify for critical findings if other than user placing the order a nd pager listed below: User placing orders pager: [phone] LAST CREATININE 1.4 H (11/29/21) Report Status: Verified Date Reported: NOV 29, 2021 Date Verified: NOV 29, 2021 Router Operator E-Sig:/HOLLIE/MAGDALENE DAVIDSON MD Report: DATE/TIME REGISTERED: 11/29/2021 [...] Primary Interpreting Staff: MAGDALENE DAVIDSON MD, RADIOLOGIST (Router Operator) /LUAN Encounter Notes: All associated encounter notes This section contains the clinical notes associated to the Encounter. Date/Time Encounter Note(s) Provider Source Nov 16, 2021 08:55 AM CARE COORDINATION HOME TELEHEALTH [facility] ARI[facility] NOTE: NILESH BURDICK [facility] LOCAL TITLE: HT MONTHLY MONITOR NOTE STANDARD TITLE: CARE COORDINATION HOME TELEHEALT H SUMMARIZATION DATE OF NOTE: NOV 16, 2021@08:55 ENTRY DATE: NOV 16, 2021@08:55:47 AUTHOR: NILESH BURDICK EXP COSIGNER: URGENCY: STATUS: COMPLETED The [place] is enrolled in the Home Telehealth ( HT) program and continues to be monitored via HT technology. The data sent by the [place] is reviewed and analyzed by the staff, who provide ongoin g case management and [place] health education while communicating and collaborating with the health care team as appropriate. This note cover s a total of 30 minutes for the month monitored. Month monitored: October/ NILESH BURDICK RN Chronic Media Sales Executive/HT Signed: 11/16/2021 08:56
--- OUTSIDE RECORDS SUMMARY | 2022-04-02 16:15 | XMS_ITS | Encounter Summary ---
:1945 Author Organization Department [facility] Address [address] [place] [id number] Care Team Providers Name Role Phone WILLA [...] MEDICARE MEDICARE PART Jun 25, PART B [id number] Saumya QUINONES PATIENT (WNR) (M) B 2011 78A 0 AVID MEDICARE MEDICARE PART Sep 25, PART A [id number] Saumya QUINONES PATIENT (WNR) (M) A 2009 78A 0 AVID MEDICARE MEDICARE PART Sep 25, PART A [id number] Saumya MICHELE (WNR) (M) A 2009 78A [phone] AVID MEDICARE MEDICARE PART Sep 25, PART B [id number] Saumya MICHELE (WNR) (M) B 2009 78A [phone] AVID Selected Encounter This section includes the information on record at [place] for the Encounter. Date/Time Encounter Type Encounter Reason Provider Source Description Nov 09, 2021 HC PRO PHONE TELEPHONE PRIMARY ICD-10-CM E11.9 JETT SAMS 09:30 AM CALL 5-10 MIN CARE Type 2 diabetes AN L mellitus without complications with Provider Comments: Type 2 diabetes mellitus ([facility] [id number]) IHE Encounter Template Text not used by [place] Assessments - Encounter Diagnoses This section includes the primary and secondary diagnoses documented for the Encounter. Date/Time Primary/Secondary Diagnosis Name Provider Source Diagnosis Nov 09, 2021 PRIMARY Type 2 diabetes JETT SAMS [facility] 09:30 AM mellitus without AN L [facility] complications Plan of Treatment: Future Appointments (+ 6 months) and Future Tests (+/- 45 days) The Plan of Treatment section includes future care activities for the patient from all [place] [facility]. This section includes future appointments and future orders which are active, pending orscheduled.Future Appointments This section includes appointments that were scheduled to occur 6 months from the date of the Encounter, up to a maximum of 20 appointments. The data comes from all [place] treatment facilities. Appointment Date/Time Appointment Type Appointment Facili ty Name Nov 19, 2021 12:45 PM AMBULATORY - MEDICINE [facility] Nov 21, 2021 10:00 AM AMBULATORY - SURGERY [facility] Nov 29, 2021 06:30 AM AMBULATORY - NONE [facility] Nov 29, 2021 07:30 AM AMBULATORY - MEDICINE [facility] Nov 29, 2021 08:00 AM AMBULATORY - MEDICINE [facility] Dec 21, 2021 09:30 AM AMBULATORY - NONE [facility] January 07, 2022 01:30 PM AMBULATORY - MEDICINE [facility] Feb 05, 2022 07:00 AM AMBULATORY [...] data comes from all [place] treatment facilities. Test Date/Time Test Type Test Details Facility Name Sep 25, 2021 03:21 PM Pharmacy - Clinic [facility] Infusion Order Nov 29, 2021 06:30 AM Laboratory - Blood Bank TYPE & SCREEN - LA B [facility] Order BLOOD SP Dec 15, 2021 12:00 AM Laboratory - Chemistry BASIC METABOLIC [facility] Order PANEL+MG PLASMA SP Lab Results: [...] AM Reporting Lab: [facility] [address] Performing Lab: [facility] [address] FINGERSTICK GLUCOSE 284 mg/dL H 70-100 Nov 30, 2021 09:47 AM [facility] ALBUMIN Specim en Type: PLASMA No comment enter ed. Ordering Provid er: ELIUD DINERO Report Released Date/Time: Nov 29, 2021 07:53 PM Reporting Lab: [facility] [address] Performing Lab: [facility] [address] ALBUMIN 3.4 g/dL L 3.5-5.2 Nov 30, 2021 09:47 [facility] BASIC METABOLIC Specimen Type: PLASMA AM PANEL+MG No comment enter ed. Ordering Provid er: ANGIE MALHOTRA Report Released Date/Time: Nov 29, 2021 08:12 PM Reporting Lab: [facility] [address] Performing Lab: [facility] [address] CREATININE 1.2 mg/dL 0.7-1.2 UREA NITROGEN 18 [...] [facility] [address] [facility] [address] Performing Lab: [facility] [address] [facility] [address] WBC 10.61 10*3/uL 4.0-11.0 RBC 4.33 10*6/uL [...] Lab: [facility] [address] [facility] [address] Performing Lab: [facility] [address] [facility] [address] FINGERSTICK GLUCOSE 165 mg/dL H 70-100 Nov 29, 2021 07:35 [facility] FINGERSTICK GLUCOSE Speci men Type: BLOOD PM Comment: [place] Nurse Notified Ordering Provid er: IRENE BURNS TWO Report Released Date/Time: Nov 29, 2021 07:48 PM Reporting Lab: [facility] [address] [facility] [address] Performing Lab: [facility] [address] [facility] [address] FINGERSTICK GLUCOSE 160 mg/dL H 70-100 Nov 29, 2021 06:52 [facility] FINGERSTICK GLUCOSE Speci men Type: BLOOD PM Comment: [place] Nurse Notified Ordering Provid er: SAKSHI CROUCH Report Released Date/Time: Nov 29, 2021 07:04 PM Reporting Lab: [facility] [address] [facility] [address] Performing Lab: [facility] [address] [facility] [address] FINGERSTICK GLUCOSE 161 mg/dL H 70-100 Nov 29, 2021 04:18 [facility] FINGERSTICK GLUCOSE Speci men Type: BLOOD PM No comment enter ed. Ordering Provid er: IRENE BURNS TWO Report Released Date/Time: Nov 29, 2021 08:08 PM Reporting Lab: [facility] [address] [facility] [address] Performing Lab: [facility] [address] [facility] [address] FINGERSTICK GLUCOSE 179 mg/dL H 70-100 Nov 29, 2021 03:26 [facility] POC ABG/ELECTROLYTES Spec imen Type: ARTERIAL BLOOD PM Comment: Sample Type = ARTERIAL Ordering Provid er: TEAMCARDS TWO Report Released Date/Time: Nov 29, 2021 07:53 PM Reporting Lab: [facility] [address] [facility] [address] Performing Lab: [facility] [address] [facility] [address] POC PH 7.321 L 7.35-7.45 POC PCO2 [...] Comment: Save R esult Ordering Provid er: GRANT,CARDS TWO Report Released Date/Time: Nov 29, 2021 08:08 PM Reporting Lab: [facility] [address] [facility] [address] Performing Lab: [facility] [address] [facility] [address] FINGERSTICK GLUCOSE 188 mg/dL H 70-100 Nov 29, 2021 02:06 [facility] POC ABG/ELECTROLYTES Spec imen Type: ARTERIAL BLOOD PM Comment: Sample Type = ARTERIAL Ordering Provid er: IRENE BURNS TWO Report Released Date/Time: Nov 29, 2021 07:53 PM Reporting Lab: [facility] [address] [facility] [address] Performing Lab: [facility] [address] POC PH 7.313 L 7.35-7.45 POC PCO2 [...] Lab: [facility] [address] [facility] [address] Performing Lab: [facility] [address] FINGERSTICK GLUCOSE 236 mg/dL H 70-100 Nov 29, 2021 01:52 PM [facility] POC ACT Specim en Type: BLOOD No comment enter ed. Ordering Provid er: IRENE BURNS TWO Report Released Date/Time: Dec 03, 2021 01:31 PM Reporting Lab: [facility] [address] [facility] [address] Performing Lab: [facility] [address] [facility] [address] POC ACT 135 s 84-139 Nov 29, 2021 01:16 PM [facility] POC ACT Specim en Type: BLOOD No comment enter ed. Ordering Provid er: IRENE BURNS TWO Report Released Date/Time: Dec 03, 2021 01:30 PM Reporting Lab: [facility] [address] [facility] [address] Performing Lab: [facility] [address] [facility] [address] POC ACT 355 s 84-139 Nov 29, 2021 12:49 PM [facility] POC ACT Specim en Type: BLOOD No comment enter ed. Ordering Provid er: IRENE BURNS TWO Report Released Date/Time: Dec 03, 2021 01:30 PM Reporting Lab: [facility] [address] Performing Lab: [facility] [address] POC ACT 367 s 84-139 Nov 29, 2021 12:48 [facility] POC ABG/ELECTROLYTES Spec imen Type: ARTERIAL BLOOD PM Comment: Sample Type = ARTERIAL Ordering Provid er: IRENE BURNS TWO Report Released Date/Time: Nov 29, 2021 07:53 PM Reporting Lab: [facility] [address] Performing Lab: [facility] [address] POC PH 7.289 L 7.35-7.45 POC PCO2 [...] PM Reporting Lab: [facility] [address] Performing Lab: [facility] [address] FINGERSTICK GLUCOSE 186 mg/dL H 70-100 Nov 29, 2021 12:26 PM [facility] POC ACT Specim en Type: BLOOD No comment enter ed. Ordering Provid er: TEAM,CARDS TWO Report Released Date/Time: Dec 03, 2021 01:30 PM Reporting Lab: [facility] [address] [facility] [address] Performing Lab: [facility] [address] [facility] [address] POC ACT 367 s 84-139 Nov 29, 2021 11:58 AM [facility] POC ACT Specim en Type: BLOOD No comment enter ed. Ordering Provid er: IRENE BURNS Report Released Date/Time: Dec 03, 2021 01:30 PM Reporting Lab: [facility] [address] [facility] [address] Performing Lab: [facility] [address] [facility] [address] POC ACT 338 s 84-139 Nov 29, 2021 11:53 [facility] FINGERSTICK GLUCOSE Speci men Type: BLOOD AM Comment: Save R esult Ordering Provid er: IRENE BURNS Report Released Date/Time: Nov 29, 2021 08:08 PM Reporting Lab: [facility] [address] [facility] [address] Performing Lab: [facility] [address] [facility] [address] FINGERSTICK GLUCOSE 225 mg/dL H 70-100 Nov 29, 2021 11:30 AM [facility] POC ACT Specim en Type: BLOOD No comment enter ed. Ordering Provid er: IRENE BURNS Report Released Date/Time: Dec 03, 2021 01:30 PM Reporting Lab: [facility] [address] [facility] [address] Performing Lab: [facility] [address] [facility] [address] POC ACT 355 s 84-139 Nov 29, 2021 11:26 [facility] POC ABG/ELECTROLYTES Spec imen Type: ARTERIAL BLOOD AM Comment: Sample Type = ARTERIAL Ordering Provid er: IRENE BURNS Report Released Date/Time: Nov 29, 2021 07:53 PM Reporting Lab: [facility] [address] [facility] [address] Performing Lab: [facility] [address] [facility] [address] POC PH 7.317 L 7.35-7.45 POC PCO2 [...] [facility] [address] [facility] [address] Performing Lab: [facility] [address] [facility] [address] FINGERSTICK GLUCOSE 221 mg/dL H 70-100 Nov 29, 2021 11:02 AM [facility] POC ACT Specim en Type: BLOOD No comment enter ed. Ordering Provid er: IRENE BURNS TWO Report Released Date/Time: Dec 03, 2021 01:30 PM Reporting Lab: [facility] [address] [facility] [address] Performing Lab: [facility] [address] [facility] [address] POC ACT 294 s 84-139 Nov 29, 2021 10:26 AM [facility] POC ACT Specim en Type: BLOOD No comment enter ed. Ordering Provid er: IRENE BURNS TWO Report Released Date/Time: Dec 03, 2021 01:30 PM Reporting Lab: [facility] [address] [facility] [address] Performing Lab: [facility] [address] [facility] [address] POC ACT 329 s 84-139 Nov 29, 2021 10:06 AM [facility] POC ACT Specim en Type: BLOOD No comment enter ed. Ordering Provid er: IRENE BURNS TWO Report Released Date/Time: Dec 03, 2021 01:30 PM Reporting Lab: [facility] [address] [facility] [address] Performing Lab: [facility] [address] [facility] [address] POC ACT 312 s 84-139 Nov 29, 2021 09:58 [facility] POC ABG/ELECTROLYTES Spec imen Type: ARTERIAL BLOOD AM Comment: Sample Type = ARTERIAL Ordering Provid er: IRENE BURNS Report Released Date/Time: Nov 29, 2021 07:53 PM Reporting Lab: [facility] [address] [facility] [address] Performing Lab: [facility] [address] [facility] [address] POC PH 7.334 L 7.35-7.45 POC PCO2 [...] Lab: [facility] [address] [facility] [address] Performing Lab: [facility] [address] [facility] [address] FINGERSTICK GLUCOSE 194 mg/dL H 70-100 Nov 29, 2021 09:45 AM [facility] POC ACT Specim en Type: BLOOD No comment enter ed. Ordering Provid er: IRENE BURNS TWO Report Released Date/Time: Dec 03, 2021 01:30 PM Reporting Lab: [facility] [address] [facility] [address] Performing Lab: [facility] [address] [facility] [address] POC ACT 269 s 84-139 Nov 29, 2021 08:59 AM [facility] POC ACT Specim en Type: BLOOD No comment enter ed. Ordering Provid er: IRENE BURNS TWO Report Released Date/Time: Dec 03, 2021 01:30 PM Reporting Lab: [facility] [address] [facility] [address] Performing Lab: [facility] [address] [facility] [address] POC ACT 135 s 84-139 Nov 29, 2021 [facility] COVID-19 AND FLU/RSV Specime n Type: NASOPHARYNGEAL 07:05 AM DIAG PANEL(CEPHEID) Comment: [employer] GeneXpert (618) Ordering Provid er: KATHERINE FIGUEROA Report Released Date/Time: Oct 29, 2021 12:22 PM Reporting [facility] [address] Performing Lab: [facility] [address] COVID-19 (CEPHEID) Not Detected Not Dete cted INFLUENZA A (PCR) Not Detected Not Detec susanne INFLUENZA B (PCR) Not Detected Not Detec susanne RSV (PCR) Not Detected Not Detected Nov 29, 2021 [facility] BASIC METABOLIC Specimen Typ e: PLASMA 06:38 AM PANEL+MG No comment enter ed. Ordering Provid er: KATHERINE FIGUEROA Report Released Date/Time: Oct 29, 2021 12:22 PM Reporting Lab: [facility] [address] Performing Lab: [facility] [address] CREATININE 1.4 mg/dL H 0.7-1.2 UREA NITROGEN [...] Oct 29, 2021 12:22 PM Reporting Lab: [facility] [address] Performing Lab: [facility] [address] WBC 7.40 10*3/uL 4.0-11.0 RBC 5.17 10*6/uL [...] 12:22 PM Reporting Lab[facility] [address] Performing Lab: [facility] [address] .INR 1.1 0.8-1.1 .PT 13.1 s H 9.4-12.5 Nov 29, 2021 [facility] ACT PART Specimen Typ e: PLASMA 06:38 AM THROMBO TIME No comment enter ed. Ordering Provid er: KATHERINE FIGUEROA Report Released Date/Time: Oct 29, 2021 12:22 PM Reporting Lab: [facility] [address] [facility] [address] Performing Lab: [facility] [address] [facility] [address] APTT 33.3 s 25.1-36.5 Social History: Smoking [...] Comment Facility Mar 20, 2021 11:21 AM [place]-VAAES TOBACCO USE CURRENT NRT [facility] DECLINE Tobacco Use History This section includes a history of the smoking, or tobacco- related health factors, that were collected on or before the date of the Encounter. The data comes from the [place] facility where the Encounter took place. Date/Time Smoking Status/Tobacco Use Comment Nicola matta Nov 15, 2020 10:00 AM VA-TOBACCO DOESNT USE WI 30 MIN [facility] WAKEUP Nov 15, 2020 10:00 AM VA-TOBACCO USE 30 YEARS OR MORE [facility] Nov 15, 2020 10:00 AM VA-TOBACCO USE ADVICE [place] [facility] Nov 15, 2020 10:00 AM VA-TOBACCO USE HEEL SANDER NO [facility] Nov 15, 2020 10:00 AM VA-TOBACCO USE MED NO [place] [facility] Nov 15, 2020 10:00 AM VA-TOBACCO USER EVERY DAY [facility] Jun 21, 2019 02:29 PM VA-TOBACCO USE 30 YEARS OR MORE [facility] Jun 21, 2019 02:29 PM VA-TOBACCO USE ADVICE [place] [facility] Jun 21, 2019 02:29 PM VA-TOBACCO USE HEEL SANDER NO [facility] Jun 21, 2019 02:29 PM VA-TOBACCO USE MED NO [place] [facility] Jun 21, 2019 02:29 PM VA-TOBACCO USE WI 30 MIN OF WAKEUP [facility] Jun 21, 2019 02:29 PM VA-TOBACCO USER EVERY DAY [facility] Jun 09, 2018 03:48 PM VA-TOBACCO USE 30 YEARS OR MORE [facility] Jun 09, 2018 03:48 PM VA-TOBACCO USE ADVICE [place] [facility] Jun 09, 2018 03:48 PM VA-TOBACCO USE HEEL SANDER NO [facility] Jun 09, 2018 03:48 PM VA-TOBACCO USE MED NO [place] [facility] Jun 09, 2018 03:48 PM VA-TOBACCO USE [place] 30 MIN OF WAKEUP [facility] Jun 09, 2018 03:48 PM VA-TOBACCO USER EVERY DAY [facility] Jun 20, 2017 07:53 AM CURRENT [facility]BACCO USER [facility] Jun 19, 2016 08:41 AM CURRENT TOBACCO USER [facility] Jun 21, 2015 08:15 AM CURRENT TOBACCO USER [facility] Mar 22, 2014 10:03 AM CURRENT TOBACCO USER [facility] Mar 25, 2013 11:01 AM CURRENT TOBACCO USER [facility] Feb 05, 2012 08:55 AM CURRENT TOBACCO USER [facility] January 01, 2011 09:26 AM CURRENT TOBACCO USER [facility] Mar 07, 2010 10:02 AM CURRENT TOBACCO USER [facility] Feb 21, 2009 08:17 AM CURRENT TOBACCO USER [facility] Nov 06, 2007 10:02 AM CURRENT TOBACCO USER [facility] January 02, 2007 10:33 AM CURRENT TOBACCO USER [facility] Advance Directives: All historical [...] document. The data comes from all [facility]. Date Advance Directives Provider Source [...] LAT: MONET LUDWIG [facility] PAUL MICHELE [id number] -[birth year] 9 M Exm Date: NOV 30, 2021@07:05 Req Phys: CHERRY MENDOZA Pat Loc: 3LSOB/ 2@08:05 Img Loc: MAIN X-RAY Service: zzcard sect (Case [id number] COMPLETE) CHEST 2 VIEWS PA AND LAT (R AD Detailed) CPT:48866 Reason for Study: s/p upgrade ICD adding an A l ead Clinical History: Post ICD or Pacemaker: Verify Lead Placement. Otto IS NOT under investigation for COVID-19 or is COVID-19 negative s/p upgrade ICD adding an A lead Responsible pr ovider name and phone number to notify for critical findings if other than user placing the order and pager listed below: User placing orders pager: [phone] LAST CREATININE 1.4 H (11/29/21) Report Status: Verified Date Reported: NOV 30, 2021 Date Verified: NOV 30, 2021 [employer] E-Sig:/ES/MONET LUDWIG MD, FACR, C CD Report: [...] 06:25 PM CHEST 1 VIEW: MAGDALENE DAVIDSON [facility] PAUL MICHELE [id number] -[birth year] M Exm Date: NOV 29, 2021@18:25 Req Phys: CHERRY MENDOZA Pat Loc: [facility] [address] AY (Req'g Loc) Img Loc: MAIN X-RAY Service: Unknown (Case [id number] COMPLETE) CHEST 1 VIEW (RAD Detailed) CPT:81053 Reason for Study: s/p upgrade ICD adding an A l ead Clinical History: Immediate Post-Op Pacemaker/ICD placement Otto IS NOT under investigation for COVID-19 or is COVID-19 negative s/p upgrade his ICD to dual chamber (adding an A lead) Responsible provider name and phone number to n otify for critical findings if other than user placing the order a nd pager listed below: User placing orders pager: [phone] LAST CREATININE 1.4 H (11/29/21) Report Status: Verified Date Reported: NOV 29, 2021 Date Verified: NOV 29, 2021 [employer] E-Sig:/HOLLIE/MAGDALENE DAVIDSON MD Report: DATE/TIME REGISTERED: 11/29/2021 [...] Primary Interpreting Staff: MAGDALENE DAVIDSON MD, RADIOLOGIST (Sandwich Board Carrier) /LUAN Encounter Notes: All associated encounter notes This section contains the clinical notes associated to the Encounter. Date/Time Encounter Note(s) Provider Source Nov 09, 2021 09:32 AM PIPER INSTALLER NOTE: JAYY SAMS [facility] LOCAL TITLE: DIABETES PIPER INSTALLER NOTE STANDARD TITLE: PIPER INSTALLER NOTE DATE OF NOTE: NOV 09, 2021@09:32 ENTRY DATE: NOV 09, 2021@09:32:59 AUTHOR: JAYY SAMS EXP COSIGNER: URGENCY: STATUS: COMPLETED PAUL MICHELE is a 76 YO MALE followed by [facility] for medication management. SUBJECTIVE: reports he isn't justo e why his BG have been higher. He has been trying to avoid sweets before bed or during the day. He no noy he missed his weekly injection this week. Upon discussion, he states he has at least 6 weeks' worth of doses right now (1/2 box and 1 full box). He thinks he might be missing more of his weekly injections that he thought. He has a pill container, but stores his injection in the fridge. He is going to move his pen by oral medications and write on calendar once he gi ve injection. He can also set an alarm on phone for reminder. Did not review inhalers today as was karen rt on time and leaving soon. ROS: (-) hypoglycemia symptoms (-) hyperglycemia symptoms SMBG Readings: Date AM Noon PM HS Notes 3/4 192 3/5 216 3/6 192 3/7 153 3/8 163 3/9 148 3/10 181 3/11 207 3/12 201 3/13 248 3/14 167 3/15 185 3/16 103 3/17 163 /18 191 MEDICATION RECONCILIATION: Active and Recently Outpatient Medicatio [...] METOPROLOL SUCCINATE 200MG SA TAB TAKE ONE-H FDC ACTIVE TABLET BY MOUTH EVERY DAY FOR [...] TS CLAW ACTIVE MOUTH 19 Total Medications OBJECTIVE: ALLERGIES/ADR: LISINOPRIL (Nov 09, 2007) Vitals: Temperature: 97.5 F [36.4 C] (09/21/2021 09:49) Blood Pressure: 123/75 (09/21/2021 09:49) Pulse: 76 (09/21/2021 09:49) Respiration: 18 (09/21/2021 09:49) Pain: 0 (09/21/2021 09:49) Height: 73.5 in [186.7 cm] (09/21/2021 09:49) Weight: 223.7 lb [101.7 kg] (09/21/2021 09:49) BMI: 29.2 LABS: Basic Metabolic Panel SODIUM 142 (09/21/21) POTASSIUM 4.0 (09/21/21) CREATININE 1.3 H (09/21/21) UREA NITROGEN 15 (09/21/21) GLUCOSE 173 H (09/21/21) CO2 29 (09/21/21) CHLORIDE 107 (09/21/21) ESTIMATED GFR(eGFR) 54 L (09/21/21) MAGNESIUM 2.0 (09/21/21) Collection DT Specimen Test Name Result Units Re f Range 09/21/2021 08:58 PLASMA CREATININE 1.3 H mg/dL 0 .7 - 1.2 06/18/2021 11:52 PLASMA CREATININE 1.3 H mg/dL 0 .7 - 1.2 06/18/2021 11:50 PLASMA CREATININE 1.3 H mg/dL 0 .7 - 1.2 09/21/2021 08:58 PLASMA ESTIMATED GFR(eGF 54 L [...] DT Spec WBC HGB HCT PLT MCV 06/18/2021 11:52 BLOOD 7.85 16.8 51.9 98 L 104.6 H ASSESSMENT: #DM - Goal A1c <8% (FBG 80-160, PP G <210) per [place]/DoD guidelines. Last A1C above goal. SMBG remain above goal at ti mes. Non-adherence likely main reason for elevations currently. Suspect doses have been missed for ab out 6 weeks based on refill history and medication available. Reviewed memor y aid and methods to improve adherence. Next step would be daily insulin, how ever, will defer and focus on improving adherence first (yandy yu on calendar, set phone alarm for Mondays, place pen next to oral medications). #COPD Unable to assess at today's visit. No id entifiable breathing concerns mentions during call or apparent signs of breathing distr ess during call (no coughing/wheezing/SOB) PLAN: - Improve adherence - No medication changes #Disease-Specific Med Rec: Completed today #Labs: due for updated lab, however, given non-a dherence will defer until improved adherence to regimen. - Educated vet on indication/risks/benefits of n ew/changed medication. - Education provided on therapeutic nonpharmacol ogic management to achieve goals. - Vet advised of recent labs. - verbalized underst anding to all plans discussed today. Questions were answered to vet's satisfaction. Time spent: (x) 5-10 minutes () 11-20 minutes () 21-30 minutes RTC: 12/21@09:30 /es/ JAYY SAMS Pharmacist Signed: 11/09/2021 09:57
--- OUTSIDE RECORDS SUMMARY | 2022-04-02 16:15 | XMS_ITS | Encounter Summary ---
:1945 Author Organization Department [facility] Address [address] [place] [id number] Care Team Providers Name Role Phone WILLA [...] MEDICARE MEDICARE PART Jun 25, PART B [id number] Saumya QUINONES PATIENT (WNR) (M) B 2011 78A 0 AVID MEDICARE MEDICARE PART Sep 25, PART A [id number] Saumya QUINONES PATIENT (WNR) (M) A 2009 78A 0 AVID MEDICARE MEDICARE PART Sep 25, PART A [id number] Saumya MICHELE (WNR) (M) A 2009 [id number] [id number] AVID MEDICARE MEDICARE PART Sep 25, PART B [id number] Saumya MICHELE (WNR) (M) B 2009 [id number] [phone] AVID Selected Encounter This section includes the information on record at [place] for the Encounter. Date/Time Encounter Type Encounter Reason Provider Source Description Oct 12, 2021 HC PRO PHONE TELEPHONE PRIMARY ICD-10-CM E11.9 JETT SAMS 09:30 AM CALL 11-20 MIN CARE Type 2 diabetes AN L mellitus without complications with Provider Comments: Type 2 diabetes mellitus ([facility] [id number]) IHE Encounter Template Text not used by [facility] Assessments - Encounter Diagnoses This section includes the primary and secondary diagnoses documented for the Encounter. Date/Time Primary/Secondary Diagnosis Name Provider Source Diagnosis Oct 12, 2021 PRIMARY Type 2 diabetes JETT SAMS [facility] 09:30 AM mellitus without AN L HCS complications Plan of Treatment: Future Appointments (+ 6 months) and Future Tests (+/- 45 days) The Plan of Treatment section includes [facility] care [facility] the [facility] This section includes future appointments and future orders which are active, pending orscheduled.Future Appointments This section includes appointments that were scheduled to occur 6 months from the date of the Encounter, up to a maximum of 20 appointments. The data comes from all [place] treatment [facility]. Appointment Date/Time Appointment Type Appointment Facili ty Name Nov 02, 2021 08:42 PM AMBULATORY - MEDICINE [facility] Nov 05, 2021 11:30 AM AMBULATORY - MEDICINE [facility] Nov 09, 2021 09:30 AM AMBULATORY - NONE [facility] Nov 19, 2021 12:45 PM AMBULATORY - MEDICINE [facility] Nov 21, 2021 10:00 AM AMBULATORY - SURGERY [facility] S Nov 29, 2021 06:30 AM AMBULATORY - NONE [facility] Nov 29, 2021 07:30 AM AMBULATORY - MEDICINE [facility] Nov 29, 2021 08:00 AM AMBULATORY - MEDICINE [facility] Dec 21, 2021 09:30 AM AMBULATORY - NONE [facility] January 07, 2022 01:30 PM AMBULATORY - MEDICINE [facility] Feb 05, 2022 07:00 AM AMBULATORY - NONE [facility] Feb 07, 2022 09:30 AM AMBULATORY - NONE [facility] Feb 13, 2022 10:00 AM AMBULATORY - NONE [facility] Mar 21, 2022 09:30 AM AMBULATORY - NONE [facility] Active, Pending, and Scheduled [...] The data comes from all [place] treatment [facility]. Test Date/Time Test Type Test Details Facility Name Sep 25, 2021 03:21 PM Pharmacy - Clinic Infusion [facility] Order Lab Results: +/- 30 days [...] Reference Range Comment Sep 21, 2021 08:58 [facility] BASIC METABOLIC Specimen Type: PLASMA AM PANEL+MG No comment enter ed. Ordering Provid er: TUCKER JULIAN Report Released Date/Time: Sep 21, 2021 08:58 AM Reporting Lab: [facility] [id number] Performing Lab: [facility] [id number] CREATININE 1.3 mg/dL H 0.7-1.2 UREA NITROGEN 15 mg/dL 8-26 GLUCOSE 173 mg/dL H 74-100 SODIUM 142 mmol/L 136-145 POTASSIUM 4.0 mmol/L 3.5-5.1 CHLORIDE 107 mmol/L 98-107 CO2 29 mmol/L 22-29 CALCIUM 9.6 mg/dL 8.4-10.2 MAGNESIUM 2.0 mg/dL 1.6-2.6 ANION GAP 6 mmol/L 5-15 ESTIMATED GFR(eGFR) 54 L >60 Sep 21, 2021 08:55 AM [facility] HEMOGLOBIN A1C Specim en Type: BLOOD No comment enter ed. Ordering Provid er: JAYY SAMS Report Released Date/Time: Sep 14, 2021 11:24 AM Reporting Lab: [facility] [id number] Performing Lab: [facility] [id number] HEMOGLOBIN A1C 8.5 H 4.0-6.0 Social History: [...] Comment Facility Mar 20, 2021 11:21 AM CO-COAES TOBACCO USE CURRENT NRT [facility] DECLINE Tobacco Use History This section includes a history of the smoking, or tobacco- related health factors, that were collected on or before the date of the Encounter. The data comes from the [place] facility where the Encounter took place. Date/Time Smoking Status/Tobacco Use Comment Facil ity Nov 15, 2020 10:00 AM VA-TOBACCO DOESNT USE WI 30 MIN [facility] WAKEUP Nov 15, 2020 10:00 AM VA-TOBACCO USE 30 YEARS OR MORE [facility] Nov 15, 2020 10:00 AM [facility] Nov 15, 2020 10:00 AM VA-TOBACCO USE YARN SPOOLER NO [facility] Nov 15, 2020 10:00 AM VA-TOBACCO USE MED NO [place] [facility] Nov 15, 2020 10:00 AM VA-TOBACCO USER EVERY DAY [facility] Jun 21, 2019 02:29 PM VA-TOBACCO USE 30 YEARS OR MORE [facility] Jun 21, 2019 02:29 PM VA-TOBACCO USE ADVICE [place] [facility] Jun 21, 2019 02:29 PM VA-TOBACCO USE YARN SPOOLER NO [facility] Jun 21, 2019 02:29 PM VA-TOBACCO USE MED [place] [facility] Jun 21, 2019 02:29 PM VA-TOBACCO USE WI 30 MIN OF WAKEUP [facility] Jun 21, 2019 02:29 PM VA-TOBACCO USER EVERY DAY [facility] Jun 09, 2018 03:48 PM VA-TOBACCO USE 30 YEARS OR MORE [facility] Jun 09, 2018 03:48 PM VA-TOBACCO USE ADVICE [place] [facility] Jun 09, 2018 03:48 PM VA-TOBACCO USE YARN SPOOLER NO [facility] Jun 09, 2018 03:48 PM VA-TOBACCO USE MED [place] [facility] Jun 09, 2018 03:48 PM VA-TOBACCO USE WI 30 MIN OF WAKEUP [facility] Jun 09, 2018 03:48 PM VA-TOBACCO USER EVERY DAY [facility] Jun 20, 2017 07:53 AM CURRENT TOBACCO USER [facility] Jun 19, 2016 08:41 AM [facility] Jun 21, 2015 08:15 AM [facility]AC[facility] Mar 22, 2014 10:03 AM CURRENT TOBACCO USER [facility] Mar 25, 2013 11:01 AM [facility] Feb 05, 2012 08:55 AM CURRENT TOBACCO USER [facility] January 01, 2011 09:26 AM CURRENT TOBACCO USER [facility] Mar 07, 2010 10:02 AM CURRENT TOBACCO USER [facility] Feb 21, 2009 08:17 AM CURRENT TOBACCO USER [facility] Nov 06, 2007 10:02 AM CURRENT TOBACCO USER [facility] January 02, 2007 10:33 AM CURRENT TOBACCO USER [facility] Advance Directives: All historical and current [...] 06, 2005 ADVANCE DIRECTIVE GANESH RODRIGUEZ [facility] Encounter Notes: All associated encounter notes This section contains the clinical notes associated to the Encounter. Date/Time Encounter Note(s) Provider Source Oct 12, 2021 09:33 AM STONE FINISHER NOTE: JAYY SAMS [facility] LOCAL TITLE: DIABETES STONE FINISHER NOTE STANDARD TITLE: STONE FINISHER NOTE DATE OF NOTE: OCT 12, 2021@09:33 ENTRY DATE: OCT 12, 2021@09:33:30 AUTHOR: JAYY SAMS EXP COSIGNER: URGENCY: STATUS: COMPLETED PAUL MICHELE is a 76 YO MALE followed by [facility] for medication management. SUBJECTIVE: reports he is doing well. He has struggled to reduce his candy intake. He notes he will eat candy in the morning and af ternoon. He recently went to store and didn't buy a new p ackage. He purchased a sugar free candy bar instead. He is trying to get more physical activi ty. He is walking at the mall and uses his girlfriend's treadmill when he can. He hopes to increase further once it warms up his spring. ROS: (-) hypoglycemia symptoms (-) hyperglycemia symptoms SMBG Readings: Date AM Noon PM HS Notes See HT INTERVENTION NOTE from 10/09 for below antonio mcgovern Blood Glucose Readings: Date 05:00-11:30 11:30-16:00 16:00-18:30 18:30-2 3:00 23:00-05:00 10/09/21 171(05:15) 10/08/21 172(06:26) 10/07/21 188(06:43) 10/06/21 180(05:03) 255(05:02) 10/05/21 173(04:50) 10/04/21 181(06:53) 10/03/21 133(05:53) 10/02/21 171(05:52) 10/01/21 186(04:58) 09/30/21 154(05:53) 09/29/21 181(05:45) 09/28/21 155(05:20) 09/27/21 143(05:18) 09/26/21 136(05:42) 09/25/21 153(05:01) 09/24/21 162(05:46) 09/23/21 183(05:26) 09/22/21 155(04:54) 09/21/21 167(06:27) 09/20/21 139(05:00) 09/19/21 149(04:24) 09/18/21 187(06:25) 09/17/21 147(05:25) 09/16/21 172(05:33) 09/15/21 208(05:02) 227(05:00) 09/14/21 199(06:21) 09/13/21 190(05:12) 09/12/21 186(05:41) 09/11/21 153(05:50) 09/10/21 149(03:46) 09/09/21 170(05:30) 09/08/21 157(04:29) COPD: He has started the new inhal er (Olodaterol/tiotropium). He thinks it is working well. He doesn't use it every day. He forgets to use it. He does use his albuterol every night before bed. He denies SOB he just feels like he sleeps better if he uses it. He sto res his Olodaterol/tiotropium in a basket that isn't next to his medications. Pt reported exacerbations in past 12 months: 0 COPD-related ED visits/hospitalizations in past 12 months: 0 COPD Assessment Test (CAT Questionnaire) No Yes 0 [1] 2 3 4 5 I cough all the time 0 [1] 2 3 4 5 My chest is full of phlegm (mucus) [0] 1 2 3 4 5 My chest feels tight 0 1 [2] 3 4 5 When I walk up a hill or one fligh t of stairs I am breathless [0] 1 2 3 4 5 I am very limited doing activities at home [0] 1 2 3 4 5 I am not at all confident leaving my home because of my lung condition [0] 1 2 3 4 5 I do not sleep soundly because of my lung condition [0] 1 2 3 4 5 I have no energy at all Total Score: 4 Interpretation: >10 suggests significant symptoms a change of 2 or more suggests a possible change in health status MEDICATION RECONCILIATION: Active and Recently Outpatient Medicatio [...] METOPROLOL SUCCINATE 200MG SA TAB TAKE ONE-H LONG TERM ACTIVE TABLET BY MOUTH EVERY DAY FOR [...] MOUTH 19 Total Medications Adherence to medications: OBJECTIVE: ALLERGIES/ADR: LISINOPRIL (Nov 09, 2007) Vitals: [...] ESTIMATED GFR(eGF 54 L R ef: >=60 CHOLESTEROL 166 (10/27/20) MEASURED LDL____ LDL CALCULATION 76 (10/27/20) HDL 63 (10/27/20) TRIGLYCERIDE____ Collection DT Spec HGBA1C 09/21/2021 08:55 BLOOD 8.5 H 06/18/2021 11:52 BLOOD 8.6 H 02/19/2021 12:03 BLOOD 10.0 H Collection DT Specimen Test Name Result Units Re f Range 12/22/2017 09:45 URINE ALB/CREAT RATIO,U 275.5 H mg/g creat 0 - 30 12/03/2011 18:23 URINE ALB/CREAT RATIO,U 65.79 H mg/g creat 0 - 30 SGOT 28 (02/19/21) SGPT 32 (02/19/21) TSH ____ Collection DT Spec WBC HGB HCT PLT MCV 06/18/2021 11:52 BLOOD 7.85 16.8 51.9 98 L 104.6 H 10/27/2020 09:36 BLOOD 8.30 16.7 52.6 78 L 103.5 H No data available GLUCOSE 173 H (09/21/21) ASSESSMENT: #DM - Goal A1c <8% (FBG 80-160, PP G <210) per [facility] guidelines. Last A1C above goal. SMBG remain above goal at times. Improving with changes in diet and exercise. Reviewed importance of reducing simple s ugar and processed foods. Next step in therapy would be daily insulin. Will sta rt next month if BG remain above goal. #COPD Tolerating change to LAMA/LABA. No worse jose antonio in symptoms. Not using every day. Reviewed difference between rescue/maintenance i nhaler. Discussed methods to help increase adherence (francisco ce inhaler next to oral medications taken in AM). No changes in regimen. PLAN: - Decrease sugary candy #Disease-Specific Med Rec: Completed today #Labs: A1C in 3-4 months - Educated vet on indication/risks/benefits of n ew/changed medication. - Education provided on therapeutic nonpharmacol ogic management to achieve goals. - Vet advised of recent labs. - Debary verbalized underst anding to all plans discussed today. Questions were answered to vet's satisfaction. Time spent: () 5-10 minutes (x) 11-20 minutes () 21-30 minutes RTC: 11/09@09:30 /billy/ JAYY SAMS Pharmacist Signed: 10/12/2021 16:17
--- OUTSIDE RECORDS SUMMARY | 2022-04-02 16:15 | XMS_ITS | Encounter Summary ---
:1945 Author Organization Department [facility] Address [address] [place] [id number] Care Team Providers Name Role Phone SAKSHI [...] MEDICARE MEDICARE PART Jun 25, PART B [id number] Saumya QUINONES PATIENT (WNR) (M) B 2011 78A 0 AVID MEDICARE MEDICARE PART Sep 25, PART A [id number] Saumya QUINONES PATIENT (WNR) (M) A 2009 78A 0 AVID MEDICARE MEDICARE PART Sep 25, PART A [id number] Saumya MICHELE (WNR) (M) A 2009 78A [id number] AVID MEDICARE MEDICARE PART Sep 25, PART B [id number] Saumya MICHELE (WNR) (M) B 2009 [id number] [id number] AVID Selected Encounter This section includes the information on record at [place] for the Encounter. Date/Time Encounter Type Encounter Reason Provider Source Description Nov 15, 2021 Outpatient TELEPHONE PRIMARY ICD-10-CM I50.9 MAGO BURDICK 11:58 AM Encounter CARE Heart failure, N M unspecified with Provider Comments: Heart Failure, unspecified IHE Encounter Template Text not used by [place] Assessments - Encounter Diagnoses This section includes the primary and secondary diagnoses documented for the Encounter. Date/Time Primary/Secondary Diagnosis Name Provider Source Diagnosis Nov 15, 2021 PRIMARY Heart failure, NILESH BURDICK [facility] 11:58 AM unspecified [facility] Plan of Treatment: Future Appointments (+ 6 months) and Future Tests (+/- 45 days) The Plan of Treatment section includes future care activities for the patient from all [place] [facility] This section includes future appointments and future orders which are active, pending orscheduled.Future Appointments This section includes appointments that were scheduled to occur 6 months from the date of the Encounter, up to a maximum of 20 appointments. The data comes from all [facility]. Appointment Date/Time Appointment Type Appointment Facili ty Name Nov 19, 2021 12:45 PM AMBULATORY - MEDICINE [facility] Nov 21, 2021 10:00 AM AMBULATORY - SURGERY [facility] S Nov 29, 2021 06:30 AM AMBULATORY - NONE [facility] Nov 29, 2021 07:30 AM AMBULATORY - MEDICINE [facility] CS Nov 29, 2021 08:00 AM AMBULATORY - MEDICINE [facility] Dec 21, 2021 09:30 AM AMBULATORY - NONE [facility] January 07, 2022 01:30 PM AMBULATORY - MEDICINE [facility] Feb 05, 2022 07:00 AM AMBULATORY - NONE [facility] Feb 07, 2022 09:30 AM AMBULATORY - NONE [facility] Feb 13, 2022 10:00 AM AMBULATORY - NONE [facility] Mar 21, 2022 09:30 AM AMBULATORY - NONE [facility] Active, Pending, and [...] The data comes from all [place] [facility]. Test Date/Time Test Type Test Details Facility Name Nov 29, 2021 06:30 AM Laboratory - Blood Bank TYPE & SCREEN - LA B [facility] Order BLOOD SP Dec 15, 2021 12:00 AM Laboratory - Chemistry BASIC METABOLIC MIN [facility] Order PANEL+MG PLASMA SP Lab Results: [...] Reference Range Comment Nov 30, 2021 11:26 [facility] FINGER[place]ICK GLUCOSE Speci men Type: BLOOD AM Comment: Save R esult Nurse Notified Ordering Provid er: IRENE BURNS Report Released Date/Time: Nov 30, 2021 11:46 AM Reporting Lab: [facility] [address] [employer] [address] Performing Lab: [facility] [employer] [address] FINGERSTICK GLUCOSE 284 mg/dL H 70-100 Nov 30, 2021 09:47 AM [facility] ALBUMIN Specim en Type: PLASMA No comment enter ed. Ordering Provid er: ELIUD DINERO Report Released Date/Time: Nov 29, 2021 07:53 PM Reporting Lab: [facility] [address] [employer] [address] Performing Lab: [facility] [employer] [address] ALBUMIN 3.4 g/dL L 3.5-5.2 Nov 30, 2021 09:47 [facility] BASIC METABOLIC Specimen Type: PLASMA AM PANEL+MG No comment enter ed. Ordering Provid er: ANGIE MALHOTRA Report Released Date/Time: Nov 29, 2021 08:12 PM Reporting Lab: [facility] [address] [employer] [address] Performing Lab: [facility] [employer] [address] CREATININE 1.2 mg/dL 0.7-1.2 UREA NITROGEN 18 mg/dL 8-26 GLUCOSE 342 mg/dL H 74-100 SODIUM 141 mmol/L 136-145 POTASSIUM 4.3 mmol/L 3.5-5.1 CHLORIDE 108 mmol/L H 98-107 CO2 26 mmol/L 22-29 CALCIUM 8.6 mg/dL 8.4-10.2 MAGNESIUM 1.5 mg/dL L 1.6-2.6 ANION GAP 7 mmol/L 5-15 CREAT EGFR(CKD-EPI) 63 >60 Nov 30, 2021 09:46 AM [facility] CBC Specim en Type: BLOOD No comment enter ed. Ordering Provid er: ANGIE MALHOTRA Report Released Date/Time: Nov 29, 2021 08:12 PM Reporting Lab: [facility] [address] [facility] [address] Performing Lab: [facility] [address] [facility] [address] WBC 10.61 10*3/uL 4.0-11.0 RBC 4.33 10*6/uL L 4.6-6.2 HGB 14.6 g/dL 13.5-17.9 HCT 45.2 41-54 MCV 104.4 fL H 80-100 MCH 33.7 pg H 27-33 MCHC 32.3 g/dL 32.0-37.5 PLT 71 10*3/uL L 150-400 MPV 13.9 fL H 7.4-10.4 RDW 14.7 H 11.5-14.5 IPF 17.8 H 0-10 Nov 30, 2021 06:09 [facility] FINGER[place]ICK GLUCOSE Speci men Type: BLOOD AM Comment: Abram Welch Notified Ordering Provid er: TEAMIRENE TWO Report Released Date/Time: Nov 30, 2021 06:32 AM Reporting Lab: [facility] [address] [facility] [address] Performing Lab: [facility] [address] [facility] [address] FINGERSTICK GLUCOSE 165 mg/dL H 70-100 Nov 29, 2021 07:35 [facility] F[place] GLUCOSE Speci men Type: BLOOD PM Comment: Abram Welch Notified Ordering Provid er: GRANTCARDS TWO Report Released Date/Time: Nov 29, 2021 07:48 PM Reporting Lab: [facility] [address] [facility] [address] Performing Lab: [facility] [address] [facility] [address] FINGERSTICK GLUCOSE 160 mg/dL H 70-100 Nov 29, 2021 06:52 [facility] FINGER[place]ICK GLUCOSE Speci men Type: BLOOD PM Comment: Abram rock Nurse Notified Ordering Provid er: SAKSHI CROUCH Report Released Date/Time: Nov 29, 2021 07:04 PM Reporting Lab: [facility] [address] [employer] [address] Performing Lab: [facility] [address] [facility] [address] FINGERSTICK GLUCOSE 161 mg/dL H 70-100 Nov 29, 2021 04:18 [facility] FINGER[place]ICK GLUCOSE Speci men Type: BLOOD PM No comment enter ed. Ordering Provid er: IRENE BURNS TWO Report Released Date/Time: Nov 29, 2021 08:08 PM Reporting Lab: [facility] [address] Performing Lab: [facility] [address] FINGERSTICK GLUCOSE 179 mg/dL H 70-100 Nov 29, 2021 03:26 [facility] POC ABG/ELECTROLYTES Spec imen Type: ARTERIAL BLOOD PM Comment: Sample Type = ARTERIAL Ordering Provid er: IRENE BURNS TWO Report Released Date/Time: Nov 29, 2021 07:53 PM Reporting Lab: [facility] [address] Performing Lab: [facility] [address] POC PH 7.321 L 7.35-7.45 POC PCO2 [...] mg/dL L 4.50-5.30 Nov 29, 2021 03:24 [facility] FINGERSTICK GLUCOSE Speci men Type: BLOOD PM Comment: Save R esult Ordering Provid er: IRENE BURNS TWO Report Released Date/Time: Nov 29, 2021 08:08 PM Reporting Lab: [facility] [address] Performing Lab: [facility] [address] FINGERSTICK GLUCOSE 188 mg/dL H 70-100 Nov 29, 2021 02:06 [facility] POC ABG/ELECTROLYTES Spec imen Type: ARTERIAL BLOOD PM Comment: Sample Type = ARTERIAL Ordering Provid er: IRENE BURNS TWO Report Released Date/Time: Nov 29, 2021 07:53 PM Reporting Lab: [facility] [address] [employer] [address] Performing Lab: [facility] [address] [employer] [address] POC PH 7.313 L 7.35-7.45 POC PCO2 [...] mg/dL L 4.50-5.30 Nov 29, 2021 02:04 [facility] FINGERSTICK GLUCOSE Speci men Type: BLOOD PM Comment: Save R esult Ordering Provid er: IRENE BURNS TWO Report Released Date/Time: Nov 29, 2021 08:08 PM Reporting Lab: [facility] [address] [employer] [address] Performing Lab: [facility] [employer] [address] FINGERSTICK GLUCOSE 236 mg/dL H 70-100 Nov 29, 2021 01:52 PM [facility] POC ACT Specim en Type: BLOOD No comment enter ed. Ordering Provid er: IRENE BURNS TWO Report Released Date/Time: Dec 03, 2021 01:31 PM Reporting Lab: [facility] [address] [employer] [address] Performing Lab: [facility] [employer] [address] POC ACT 135 s 84-139 Nov 29, 2021 01:16 PM [facility] POC ACT Specim en Type: BLOOD No comment enter ed. Ordering Provid er: IRENE BURNS TWO Report Released Date/Time: Dec 03, 2021 01:30 PM Reporting Lab: [facility] [address] [employer] [address] Performing Lab: [facility] [address] [employer] [address] POC ACT 355 s 84-139 Nov 29, 2021 12:49 PM [facility] POC ACT Specim en Type: BLOOD No comment enter ed. Ordering Provid er: GRANTCARDS TWO Report Released Date/Time: Dec 03, 2021 01:30 PM Reporting Lab: [facility] [address] [employer] [address] Performing Lab: [facility] [address] [facility] [employer] [address] POC ACT 367 s 84-139 Nov 29, 2021 12:48 [facility] POC ABG/ELECTROLYTES Spec imen Type: ARTERIAL BLOOD PM Comment: Sample Type = ARTERIAL Ordering Provid er: IRENE BURNS TWO Report Released Date/Time: Nov 29, 2021 07:53 PM Reporting Lab: [facility] [address] [employer] [address] Performing Lab: [facility] [address] [facility] [employer] [address] POC PH 7.289 L 7.35-7.45 POC PCO2 [...] 4.7 mg/dL 4.50-5.30 Nov 29, 2021 12:45 [facility] FINGERSTICK GLUCOSE Speci men Type: BLOOD PM Comment: Save R esult Ordering Provid er: IRENE BURNS TWO Report Released Date/Time: Nov 29, 2021 08:08 PM Reporting Lab: [facility] [address] [employer] [address] Performing Lab: [facility] [address] [facility] [employer] [address] FINGERSTICK GLUCOSE 186 mg/dL H 70-100 Nov 29, 2021 12:26 PM [facility] POC ACT Specim en Type: BLOOD No comment enter ed. Ordering Provid er: GRANTCARDS TWO Report Released Date/Time: Dec 03, 2021 01:30 PM Reporting Lab: [facility] [address] [employer] [address] Performing Lab: [facility] [address] [facility] [address] POC ACT 367 s 84-139 Nov 29, 2021 11:58 AM [facility] POC ACT Specim en Type: BLOOD No comment enter ed. Ordering Provid er: IRENE BURNS Report Released Date/Time: Dec 03, 2021 01:30 PM Reporting Lab: [facility] [address] [employer] [address] Performing Lab: [facility] [address] [employer] [address] POC ACT 338 s 84-139 Nov 29, 2021 11:53 [facility] FINGERSTICK GLUCOSE Speci men Type: BLOOD AM Comment: Save R esult Ordering Provid er: IRENE BURNS Report Released Date/Time: Nov 29, 2021 08:08 PM Reporting Lab: [facility] [address] [employer] [address] Performing Lab: [facility] [address] FINGERSTICK GLUCOSE 225 mg/dL H 70-100 Nov 29, 2021 11:30 AM [facility] POC ACT Specim en Type: BLOOD No comment enter ed. Ordering Provid er: IRENE BURNS TWO Report Released Date/Time: Dec 03, 2021 01:30 PM Reporting Lab: [facility] [address] [employer] [address] Performing Lab: [facility] [address] [employer] [address] POC ACT 355 s 84-139 Nov 29, 2021 11:26 [facility] POC ABG/ELECTROLYTES Spec imen Type: ARTERIAL BLOOD AM Comment: Sample Type = ARTERIAL Ordering Provid er: IRENE BURNS TWO Report Released Date/Time: Nov 29, 2021 07:53 PM Reporting Lab: [facility] [address] [facility] [address] Performing Lab: [facility] [address] [employer] [address] POC PH 7.317 L 7.35-7.45 POC PCO2 [...] 4.8 mg/dL 4.50-5.30 Nov 29, 2021 11:06 [facility] FINGERSTICK GLUCOSE Speci men Type: BLOOD AM No comment enter ed. Ordering Provid er: IRENE BURNS Report Released Date/Time: Nov 29, 2021 08:08 PM Reporting Lab: [facility] [address] [facility] [address] Performing Lab: [facility] [address] [facility] [address] FINGERSTICK GLUCOSE 221 mg/dL H 70-100 Nov 29, 2021 11:02 AM [facility] POC ACT Specim en Type: BLOOD No comment enter ed. Ordering Provid er: IRENE BURNS Report Released Date/Time: Dec 03, 2021 01:30 PM Reporting Lab: [facility] [address] [facility] [address] Performing Lab: [facility] [address] [employer] [address] POC ACT 294 s 84-139 Nov 29, 2021 10:26 AM [facility] POC ACT Specim en Type: BLOOD No comment enter ed. Ordering Provid er: IRENE BURNS Report Released Date/Time: Dec 03, 2021 01:30 PM Reporting Lab: [facility] [address] [facility] [address] Performing Lab: [facility] [address] [facility] [address] POC ACT 329 s 84-139 Nov 29, 2021 10:06 AM [facility] POC ACT Specim en Type: BLOOD No comment enter ed. Ordering Provid er: IRENE BURNS Report Released Date/Time: Dec 03, 2021 01:30 PM Reporting Lab: [facility] [address] [facility] [address] Performing Lab: [facility] [address] [employer] [address] POC ACT 312 s 84-139 Nov 29, 2021 09:58 [facility] POC ABG/ELECTROLYTES Spec imen Type: ARTERIAL BLOOD AM Comment: Sample Type = ARTERIAL Ordering Provid er: IRENE BURNS Report Released Date/Time: Nov 29, 2021 07:53 PM Reporting Lab: [facility] [address] [facility] [address] Performing Lab: [facility] [address] [facility] [employer] [address] POC PH 7.334 L 7.35-7.45 POC PCO2 [...] 4.9 mg/dL 4.50-5.30 Nov 29, 2021 09:56 [facility] FINGERSTICK GLUCOSE Speci men Type: BLOOD AM No comment enter ed. Ordering Provid er: IRENE BURNS TWO Report Released Date/Time: Nov 29, 2021 08:08 PM Reporting Lab: [facility] [facility] [employer] [address] Performing Lab: [facility] [address] FINGERSTICK GLUCOSE 194 mg/dL H 70-100 Nov 29, 2021 09:45 AM [facility] POC ACT Specim en Type: BLOOD No comment enter ed. Ordering Provid er: IRENE BURNS TWO Report Released Date/Time: Dec 03, 2021 01:30 PM Reporting Lab: [facility] [facility] [employer] [address] Performing Lab: [facility] [address] [employer] [address] POC ACT 269 s 84-139 Nov 29, 2021 08:59 AM [facility] POC ACT Specim en Type: BLOOD No comment enter ed. Ordering Provid er: IRENE BURNS TWO Report Released Date/Time: Dec 03, 2021 01:30 PM Reporting Lab: [facility] [address] [facility] [employer] [address] Performing Lab: [facility] [employer] [address] POC ACT 135 s 84-139 Nov 29, 2021 [facility] COVID-19 AND FLU/RSV Specime n Type: NASOPHARYNGEAL 07:05 AM DIAG PANEL(CEPHEID) Comment: Ce pheid GeneXpert (618) Ordering Provid er: KATHERINE FIGUEROA Report Released Date/Time: Oct 29, 2021 12:22 PM Reporting Lab: [facility] [address] Performing Lab: [facility] [address] COVID-19 (CEPHEID) Not Detected Not Dete cted INFLUENZA A (PCR) Not Detected Not Detec susanne INFLUENZA B (PCR) Not Detected Not Detec susanne RSV (PCR) Not Detected Not Detected Nov 29, 2021 [facility] BASIC METABOLIC Specimen Typ e: PLASMA 06:38 AM PANEL+MG No comment enter ed. Ordering Provid er: KATHERINE FIGUEROA Report Released Date/Time: Oct 29, 2021 12:22 PM Reporting Lab: [facility] [address] Performing Lab: [facility] [address] CREATININE 1.4 mg/dL H 0.7-1.2 UREA NITROGEN 23 mg/dL 8-26 GLUCOSE 201 mg/dL H 74-100 SODIUM 143 mmol/L 136-145 POTASSIUM 4.3 mmol/L 3.5-5.1 CHLORIDE 108 mmol/L H 98-107 CO2 28 mmol/L 22-29 CALCIUM 9.9 mg/dL 8.4-10.2 MAGNESIUM 1.9 mg/dL 1.6-2.6 ANION GAP 7 mmol/L 5-15 CREAT EGFR(CKD-EPI) 53 L >60 Nov 29, 2021 06:38 [facility] CBC Specimen Type: BLOOD AM No comment enter ed. Ordering Provid er: KATHERINE FIGUEROA Report Released Date/Time: Oct 29, 2021 12:22 PM Reporting Lab: [facility] [address] Performing Lab: [facility] [address] WBC 7.40 10*3/uL 4.0-11.0 RBC 5.17 10*6/uL 4.6-6.2 HGB 17.6 g/dL 13.5-17.9 HCT 52.7 41-54 MCV 101.9 fL H 80-100 MCH 34.0 pg H 27-33 MCHC 33.4 g/dL 32.0-37.5 PLT 88 10*3/uL L 150-400 MPV 14.3 fL H 7.4-10.4 RDW 14.4 11.5-14.5 IPF 18.0 H 0-10 Nov 29, 2021 [facility] PROTHROMBIN Specimen Typ e: PLASMA 06:38 AM TIME/INR No comment enter ed. Ordering Provid er: KATHERINE FIGUEROA Report Released Date/Time: Oct 29, 2021 12:22 PM Reporting Lab: [facility] [address] Performing Lab: [facility] [address] .INR 1.1 0.8-1.1 .PT 13.1 s H 9.4-12.5 Nov 29, 2021 [facility] ACT PART Specimen Typ e: PLASMA 06:38 AM THROMBO TIME No comment enter ed. Ordering Provid er: KATHERINE FIGUEROA Report Released Date/Time: Oct 29, 2021 12:22 PM Reporting Lab: [facility] [address] Performing Lab: [facility] [address] APTT 33.3 s 25.1-36.5 Social History: Smoking [...] Comment Facility Mar 20, 2021 11:21 AM [place] TOBACCO USE CURRENT NRT [facility] DECLINE Tobacco Use History This section includes a history of the smoking, or tobacco- related health factors, that were collected on or before the date of the Encounter. The data comes from the [place] facility where the Encounter took place. Date/Time Smoking Status/Tobacco Use Comment Nicola matta Nov 15, 2020 10:00 AM VA-TOBACCO DOESNT USE WI 30 MIN [facility] WAKEUP Nov 15, 2020 10:00 AM VA-TOBACCO USE 30 YEARS OR MORE [facility] Nov 15, 2020 10:00 AM VA-TOBACCO USE ADVICE MINN [facility] Nov 15, 2020 10:00 AM VA-TOBACCO USE DIRECTOR OF ACQUISITIONS NO [facility] Nov 15, 2020 10:00 AM VA-TOBACCO USE MED NO [place] [facility] Nov 15, 2020 10:00 AM VA-TOBACCO USER EVERY DAY [facility] Jun 21, 2019 02:29 PM VA-TOBACCO USE 30 YEARS OR MORE [facility] Jun 21, 2019 02:29 PM VA-TOBACCO USE ADVICE [place] [facility] Jun 21, 2019 02:29 PM VA-TOBACCO USE DIRECTOR OF ACQUISITIONS NO [facility] Jun 21, 2019 02:29 PM VA-TOBACCO USE MED NO [place] [facility] Jun 21, 2019 02:29 PM VA-TOBACCO USE [place] 30 MIN OF WAKEUP [facility] Jun 21, 2019 02:29 PM VA-TOBACCO USER EVERY DAY [facility] Jun 09, 2018 03:48 PM VA-TOBACCO USE 30 YEARS OR MORE [facility] Jun 09, 2018 03:48 PM [facility]BACCO [facility] Jun 09, 2018 03:48 PM VA-TOBACCO USE DIRECTOR OF ACQUISITIONS NO [facility] Jun 09, 2018 03:48 PM VA-TOBACCO USE MED NO [place] [facility] Jun 09, 2018 03:48 PM VA-TOBACCO USE [place] 30 MIN OF WAKEUP [facility] Jun 09, 2018 03:48 PM VA-TOBACCO USER EVERY DAY [facility] Jun 20, 2017 07:53 AM CURRENT TOBACCO USER [facility] Jun 19, 2016 08:41 AM CURRENT [facility]BACCO USER [facility] Jun 21, 2015 08:15 AM CURRENT TOBACCO USER [facility] Mar 22, 2014 10:03 AM CURRENT TOBACCO USER [facility] Mar 25, 2013 11:01 AM CURRENT TOBACCO USER [facility] Feb 05, 2012 08:55 AM CURRENT TOBACCO USER [facility] January 01, 2011 09:26 AM CURRENT TOBACCO USER [facility] Mar 07, 2010 10:02 AM CURRENT TOBACCO USER [facility] Feb 21, 2009 08:17 AM CURRENT TOBACCO USER [facility] Nov 06, 2007 10:02 AM CURRENT TOBACCO USER [facility] January 02, 2007 10:33 AM CURRENT TOBACCO USER [facility] Advance Directives: All historical and current [...] 2005 ADVANCE DIRECTIVE GANESH RODRIGUEZ [facility] Radiology Reports: +/- 30 days of [...] 2 VIEWS PA AND LAT: MONET LUDWIG [facility] PAUL MICHELE [id number] -[birth year] 9 M Exm Date: NOV 30, 2021@07:05 Req Phys: CHERRY MENDOZA Loc: 3LSOB/ 2@08:05 Img Loc: MAIN X-RAY Service: zzcard sect (Case [id number] COMPLETE) CHEST 2 VIEWS PA AND LAT (R AD Detailed) CPT:03142 Reason for Study: s/p upgrade ICD adding [...] pager listed below: User placing orders pager: [phone] LAST CREATININE 1.4 H (11/29/21) Report Status: Verified Date Reported: NOV 30, 2021 Date Verified: NOV 30, 2021 Cycle Manager E-Sig:/ES/MONET LUDWIG MD, FACR, C CD [...] 06:25 PM CHEST 1 VIEW: MAGDALENE DAVIDSON [facility] PAUL MICHELE [id number] -[birth year]UL [birth year] 9 M Exm Date: NOV 29, 2021@18:25 Req Phys: CHERRY MENDOZA Pat Loc: [facility] [address] [facility] (Req'g Loc) Img Loc: MAIN X-RAY Service: Unknown (Case [id number] COMPLETE) CHEST 1 VIEW (RAD Detailed) CPT:38729 Reason for Study: s/p upgrade ICD adding [...] pager listed below: User placing orders pager: [phone] LAST CREATININE 1.4 H (11/29/21) Report Status: Verified Date Reported: NOV 29, 2021 Date Verified: NOV 29, 2021 Cycle Manager E-Sig:/ES/MAGDALENE DAVIDSON MD Report: DATE/TIME REGISTERED: [...] Primary Interpreting Staff: MAGDALENE DAVIDSON MD, RADIOLOGIST (Cycle Manager) /LUAN Encounter Notes: All associated encounter notes This section contains the clinical notes associated to the Encounter. Date/Time Encounter Note(s) Provider Source Nov 15, 2021 11:58 AM CARE COORDINATION HOME TELEHEALTH NOTE: NILESH COLE [facility] LOCAL TITLE: HT NOTE STANDARD TITLE: CARE COORDINATION HOME TELEHEALT H NOTE DATE OF NOTE: NOV 15, 2021@11:58 ENTRY DATE: NOV 15, 2021@11:58:31 AUTHOR: NILESH BURDICK EXP COSIGNER: URGENCY: STATUS: COMPLETED HT NOTE Has ADDENDA Diagnosis: HF Type of Contact: Telephone Reason for Contact: No data in 8 days Intervention: Encouraged [place] to transmit weight & BP. Sorry forgot about it....but I am feeling good m y Dear... Instructed him to check weight tomorrow before e ating & after emptying bladder. in good spirits & agreeable to plan. /es/ NILESH BURDICK RN Chronic New Car Driver/HT Signed: 11/15/2021 12:03 11/16/2021 ADDENDUM STATUS: COMPLETED Patient Name: PAUL MICHELE Disease(s): CHF Date Range: 11/02/2021 - 11/16/2021 [place] Vitals Report Reading Date Sys/Aracely BP-HR Weight BG 11/16/21 224.5 (05:58) 11/07/21 96/81 (07:49) 120 (07:49) 226.0 (07:50) 103 (04:45) 11/06/21 185 (04:51) 11/05/21 167 (04:39) 11/04/21 248 (03:24) 11/03/21 201 (04:37) 11/02/21 110/86 (08:59) 113 (08:59) 224.5 (09:01 ) 207 (05:58) Blood Glucose Readings: Date 05:-11:30 11:30-16:00 16:00-18:30 18:30-2 3:00 23:00-05:00 11/07/21 103(04:45) 11/06/21 185(04:51) 11/05/21 167(04:39) 11/04/21 248(03:24) 11/03/21 201(04:37) 11/02/21 207(05:58) [facility] Average Report Sys/Aracely BP-HR Weight BG Average 103/84 116 225.0 185 High 110/86 120 226.0 248 Low 96/81 113 224.5 103 Blood Glucose Summary: :00-:30 11:30-16:00 16:00-18:30 18:30-23:00 23:00-05:00 Average 207 181 High 207 248 Low 207 103 /es/ NILESH BURDICK RN Chronic New Car Driver/HT Signed: 11/16/2021 08:25
--- OUTSIDE RECORDS SUMMARY | 2022-04-02 16:15 | XMS_ITS | Encounter Summary ---
:1945 Author Organization Department [facility] Address [address] [place] [id number] Care Team Providers Name Role Phone SAKSHI [...] MEDICARE MEDICARE PART Jun 25, PART B [id number] Saumya QUINONES PATIENT (WNR) (M) B 2011 78A 0 AVID MEDICARE MEDICARE PART Sep 25, PART A [id number] Saumya QUINONES PATIENT (WNR) (M) A 2009 78A 0 AVID MEDICARE MEDICARE PART Sep 25, PART A [id number] Saumya MICHELE (WNR) (M) A 2009 78A [id number] AVID MEDICARE MEDICARE PART Sep 25, PART B [id number] Saumya MICHELE (WNR) (M) B 2009 78A [id number] AVID Selected Encounter This section includes the information on record at [place] for the Encounter. Date/Time Encounter Type Encounter Reason Provider Source Description Oct 09, 2021 HC PRO PHONE TELEPHONE PRIMARY ICD-10-CM I50.9 KERON BURDICK 01:01 PM CALL 11-20 MIN CARE Heart failure, M unspecified with Provider Comments: Heart Failure, unspecified IHE Encounter Template Text not used by [place] Assessments - Encounter Diagnoses This section includes the primary and secondary diagnoses documented for the Encounter. Date/Time Primary/Secondary Diagnosis Name Provider Source Diagnosis Oct 09, 2021 PRIMARY Heart failure, NILESH BURDICK [facility] 01:01 PM unspecified M [facility] Plan of Treatment: Future Appointments (+ 6 months) and Future Tests (+/- 45 days) The Plan of Treatment section includes future care activities for the patient from all [facility]. This section includes future appointments and future orders which are active, pending orscheduled.Future Appointments This section includes appointments that were scheduled to occur 6 months from the date of the Encounter, up to a maximum of 20 appointments. The data comes from all [place] treatment [facility]. Appointment Date/Time Appointment Type Appointment Facili ty Name Oct 12, 2021 09:30 AM AMBULATORY - NONE [facility] Nov 02, 2021 08:42 PM AMBULATORY - MEDICINE [facility] Nov 05, 2021 11:30 AM AMBULATORY - MEDICINE [facility] Nov 09, 2021 09:30 AM AMBULATORY - NONE [facility] Nov 19, 2021 12:45 PM AMBULATORY - MEDICINE [facility] Nov 21, 2021 10:00 AM AMBULATORY - SURGERY [facility] Nov 29, 2021 06:30 AM AMBULATORY - NONE [facility] Nov 29, 2021 07:30 AM AMBULATORY - MEDICINE [facility] Nov 29, 2021 08:00 AM AMBULATORY - MEDICINE [facility] Dec 21, 2021 09:30 AM AMBULATORY - NONE [facility] January 07, 2022 01:30 PM AMBULATORY - MEDICINE [facility] Feb 05, 2022 07:00 AM AMBULATORY - NONE [facility] Feb 07, 2022 09:30 AM AMBULATORY - NONE [facility] Feb 13, 2022 10:00 AM AMBULATORY - NONE [facility] Mar 21, 2022 09:30 AM AMBULATORY - NONE [facility] Active, Pending, and Scheduled Orders This [...] The data comes from all [place] treatment [facility]. Test Date/Time Test Type Test Details Facility Name Sep 25, 2021 03:21 PM Pharmacy - Clinic Infusion [facility] Order Lab Results: +/- 30 days [...] Reference Range Comment Sep 21, 2021 08:58 [facility] BASIC METABOLIC Specimen Type: PLASMA AM PANEL+MG No comment enter ed. Ordering Provid er: TUCKER JULIAN Report Released Date/Time: Sep 21, 2021 08:58 AM Reporting Lab: [facility] [id number] Performing Lab: [facility] [id number] CREATININE 1.3 mg/dL H 0.7-1.2 UREA NITROGEN 15 mg/dL 8-26 GLUCOSE 173 mg/dL H 74-100 SODIUM 142 mmol/L 136-145 POTASSIUM 4.0 mmol/L 3.5-5.1 CHLORIDE 107 mmol/L 98-107 CO2 29 mmol/L 22-29 CALCIUM 9.6 mg/dL 8.4-10.2 MAGNESIUM 2.0 mg/dL 1.6-2.6 ANION GAP 6 mmol/L 5-15 ESTIMATED GFR(eGFR) 54 L >60 Sep 21, 2021 08:55 AM [facility] HEMOGLOBIN A1C Specim en Type: BLOOD No comment enter ed. 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 [facility] Nov 15, 2020 10:00 AM VA-TOBACCO USE MED NO [facility] Nov 15, 2020 10:00 AM VA-TOBACCO USER EVERY DAY [facility] Jun 21, 2019 02:29 PM VA-TOBACCO USE 30 YEARS OR MORE [facility] Jun 21, 2019 02:29 PM VA-TOBACCO USE ADVICE [facility] Jun 21, 2019 02:29 PM 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 [facility] Jun 21, 2019 02:29 [...] Jun 09, 2018 03:48 PM VA-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 [facility] Jun 09, 2018 03:48 PM VA-TOBACCO USE MED NO [facility] [facility] [facility] Jun 09, 2018 03:48 PM VA-TOBACCO USE WI 30 MIN OF WAKEUP [facility] Jun 09, 2018 03:48 PM VA-TOBACCO USER EVERY DAY [facility] Jun 20, 2017 07:53 AM CURRENT TOBACCO USER [facility] Jun 19, 2016 08:41 AM CURRENT TOBACCO USER [facility] Jun 21, 2015 08:15 AM CURRENT TOBACCO USER [facility] Mar 22, 2014 10:03 AM CURRENT TOBACCO USER [facility] Mar 25, 2013 11:01 AM CURRENT TOBACCO USER [facility] Feb 05, 2012 08:55 AM CURRENT TOBACCO USER [facility] January 01, 2011 09:26 AM CURRENT TOBACCO USER [facility] Mar 07, 2010 10:02 AM CURRENT TOBACCO USER [facility] Feb 21, 2009 08:17 AM CURRENT TOBACCO USER [facility] Nov 06, 2007 10:02 AM CURRENT TOBACCO USER [facility] January 02, 2007 10:33 AM CURRENT TOBACCO USER [facility] Advance Directives: All historical and [...] Encounter. Date/Time Encounter Note(s) Provider Source Oct 09, 2021 01:01 PM CARE COORDINATION HOME TELEHEALTH FOLL OW-UP NOTE: NILESH BURDICK [facility] LOCAL TITLE: HT INTERVENTION NOTE STANDARD TITLE: CARE COORDINATION HOME TELEHEALT H FOLLOW-UP NOTE DATE OF NOTE: OCT 09, 2021@13:01 ENTRY DATE: OCT 09, 2021@13:01:25 AUTHOR: NILESH BURDICK EXP COSIGNER: URGENCY: STATUS: COMPLETED is actively enrolled in the Home Telehea lth program. Review of data shows the following out of range responses: Weight gain over-night Measurements: Patient Name: PAUL MICHELE Disease(s): CHF Date Range: 09/08/2021 - 10/09/2021 [facility] Vitals Report Reading Date Sys/Aracely BP-HR Weight BG 10/09/21 124/85 (08:16) 41 (08:16) 227.5 (08:17) 171 (05:15) 10/08/21 96/84 (09:11) 80 (09:11) 224.0 (09:12) 172 (06:26) 10/07/21 188 (06:43) 10/06/21 180 (05:03) 10/06/21 255 (05:02) 10/05/21 173 (04:50) 10/04/21 181 (06:53) 10/03/21 133 (05:53) 10/02/21 121/92 (07:54) 76 (07:54) 224.5 (07:55) 171 (05:52) 10/01/21 186 (04:58) 09/30/21 154 (05:53) 09/29/21 181 (05:45) 09/28/21 128/93 (07:46) 77 (07:46) 225.0 (07:47) 155 (05:20) 09/27/21 143 (05:18) 09/26/21 136 (05:42) 09/25/21 118/92 (08:19) 88 (08:19) 226.0 (08:20) 153 (05:01) 09/24/21 162 (05:46) 09/23/21 183 (05:26) 09/22/21 155 (04:54) 09/21/21 167 (06:27) 09/20/21 139 (05:00) 09/19/21 119/83 (08:36) 82 (08:36) 225.0 (08:37) 149 (04:24) 09/18/21 106/84 (08:31) 89 (08:31) 224.5 (08:32) 187 (06:25) 09/17/21 147 (05:25) 09/16/21 172 (05:33) 09/15/21 208 (05:02) 09/15/21 227 (05:00) 09/14/21 113/83 (08:42) 90 (08:42) 225.5 (08:43) 199 (06:21) 09/13/21 154/77 (12:13) 91 (12:13) 223.0 (12:14) 190 (05:12) 09/12/21 186 (05:41) 09/11/21 120/87 (08:44) 84 (08:44) 153 (05:50) 09/10/21 149 (03:46) 09/09/21 170 (05:30) 09/08/21 157 (04:29) Blood Glucose Readings: Date 05:00- 11:30-16:00 16:00-18:30 18:30-2 3:00 23:00-05:00 10/09/21 171(05:15) [...] 153(05:50) 09/10/21 149(03:46) 09/09/21 170(05:30) 09/08/21 157(04:29) [facility] Average Report Sys/Arcaely BP-HR Weight BG Average 120/86 80 225.0 172 High 154/93 91 227.5 255 Low 96/77 41 223.0 133 Blood Glucose Summary: 05:00-11:30 11:30-16:00 16:00-18:30 18:30-23:00 23:00-05:00 Average 174 162 High 255 186 Low 133 149 Assessment: Heart Failure/CAD: Shortness of breath...............Same Edema.............................None Dizziness.........................None Chest pain/palpitations...........None Cough (productive/nonproductive)..Same Fatigue...........................Same Abdominal distension..............Same Increased urination...............No Decreased urination...............No Intervention(s)/Plan: shares that he had a big [employer] da y dinner. He enjoyed a 14oz Ribeye, salad, shrimp & chili. Denies any worse jose antonio HF symptoms. SOB upon exertion. No swelling to speak of. Reports taking 40mg of Lasix daily. Doesn't garcia e any extra doses. There is no PRN currently--will add it to HF or lou for future reference. Reinforced HF education. I don't add no salt... in good spirits today & has a recall wi th HF in November. DISEASE SPECIFIC INTERVENTIONS: Cardiac: Educated on HF symptoms (when to seek medical a ttention/when to call care coordination or healthcare team) Reviewed with patient parameters for fluid rest riction 2 liters Educated patient on sodium restriction 2 grams Reviewed with patient hidden sodium without chris bee a salt shaker/avoid foods and beverages high in sodium Coached patient to avoid tobacco products, caff eine, exercise or ETOH within 30 minutes before checking BP Provided support and Encouragement Encouraged to report health concerns and/or see k medical attention if needed PROGRESS TOWARDS GOAL(S): Making progress toward at least one goal. TYPE OF ENCOUNTER: Telephone Length of call: 11-20 minutes /billy/ NILESH BURDICK RN Chronic Office Machine Servicer/ Signed: 10/09/2021 13:18 Receipt Acknowledged By: * AWAITING SIGNATURE * VICENTE PELAEZ
--- OUTSIDE RECORDS SUMMARY | 2022-04-02 16:15 | XMS_ITS | Encounter Summary ---
:1945 [address] [facility] Address [address] [place] [id number] Care Team Providers Name Role Phone HILL EFREN Primary Care Provider Unavailable Insurance Providers: [...] MEDICARE MEDICARE PART Jun 25, PART B [id number] Saumya QUINONES PATIENT (WNR) (M) B 2011 78A 0 AVID MEDICARE MEDICARE PART Sep 25, PART A [id number] Saumya QUINONES PATIENT (WNR) (M) A 2009 78A 0 AVID MEDICARE MEDICARE PART Sep 25, PART A [id number] Saumya MICHELE (WNR) (M) A 2009 78A [id number] AVID MEDICARE MEDICARE PART Sep 25, PART B [id number] Saumya MICHELE (WNR) (M) B 2009 78A [id number] AVID Selected Encounter This section includes the information on record at [place] for the Encounter. Date/Time Encounter Type Encounter Description Reason Provider Source Oct 19, 2021 02:14 Outpatient Encounter PRIMARY CARE/MEDICINE PM IHE Encounter Template Text not used by [place] Plan of Treatment: Future Appointments (+ 6 months) and Future Tests (+/- 45 days) The Plan of Treatment section includes future care activities for the patient from all [place] [facility] This section includes future appointments and future orders which are active, pending orscheduled.Future Appointments This section includes appointments that were scheduled to occur 6 months from the date of the Encounter, up to a maximum of 20 appointments. The data comes from all [facility]. Appointment Date/Time Appointment Type Appointment Facili ty Name Nov 02, 2021 08:42 PM AMBULATORY - MEDICINE [facility] Nov 05, 2021 11:30 AM AMBULATORY - MEDICINE [facility] Nov 09, 2021 09:30 AM AMBULATORY - NONE [facility] Nov 19, 2021 12:45 PM AMBULATORY - MEDICINE [facility] Nov 21, 2021 10:00 AM AMBULATORY - SURGERY [facility] Nov 29, 2021 06:30 AM AMBULATORY - NONE [facility] Nov 29, 2021 07:30 AM AMBULATORY - MEDICINE [facility] Nov 29, 2021 08:00 AM AMBULATORY - MEDICINE [facility] Dec 21, 2021 09:30 AM AMBULATORY - NONE [facility] January 07, 2022 01:30 PM AMBULATORY - MEDICINE [facility] Feb 05, 2022 07:00 AM AMBULATORY - NONE [facility] Feb 07, 2022 09:30 AM AMBULATORY - NONE [facility] Feb 13, 2022 10:00 AM AMBULATORY - NONE [facility] Mar 21, 2022 09:30 AM AMBULATORY - NONE [facility] Active, [...] the Encounter. The data comes from all [facility]. Test Date/Time Test Type Test Details Facility Name Sep 25, 2021 03:21 PM [facility] Infusion Order Nov 29, 2021 06:30 AM Laboratory - Blood Bank TYPE & SCREEN - LA B [facility] Order BLOOD SP Lab Results: +/- 30 days of the encounter This section includes the Chemistry and Hematology Lab Results on record with [place] for the patient. Radiology Reports and Pathology Reports are provided separately, in subsequent sections.Lab Results This section contains the Chemistry/Hematology Results that were resulted 30 days before or 30 daysafter the date of the Encounter. Date/Time Source Result Type Result - Unit Interpretation Reference Range Comment Sep 21, 2021 08:58 [facility] BASIC METABOLIC Specimen Type: PLASMA AM PANEL+MG No comment enter ed. Ordering Provid er: TUCKER JULIAN Report Released Date/Time: Sep 21, 2021 08:58 AM Reporting Lab: [facility] [address] [facility] [id number] Performing Lab: [facility] [id number] CREATININE 1.3 mg/dL H 0.7-1.2 UREA NITROGEN 15 mg/dL 8-26 GLUCOSE 173 mg/dL H 74-100 SODIUM 142 mmol/L 136-145 POTASSIUM 4.0 mmol/L 3.5-5.1 CHLORIDE 107 mmol/L 98-107 CO2 29 mmol/L 22-29 CALCIUM 9.6 mg/dL 8.4-10.2 MAGNESIUM 2.0 mg/dL 1.6-2.6 ANION GAP 6 mmol/L 5-15 ESTIMATED GFR(eGFR) 54 L >60 Sep 21, 2021 08:55 AM [facility] HEMOGLOBIN A1C Specim en Type: BLOOD No comment enter ed. Ordering Provid er: JAYY SAMS Report Released Date/Time: Sep 14, 2021 11:24 AM Reporting Lab: [facility] [id number] Performing Lab: [facility] [id number] HEMOGLOBIN A1C 8.5 H 4.0-6.0 Social History: Smoking Status (Most current) and Tobacco Use (All prior to encounter date) This section includes the most current, and the historical, smoking and tobacco-related health factors from the [place] facility where the Encounter took place.Current Smoking Status This section includes the most current smoking, or tobacco-related health factor, from the [place] facility where the Encounter took place. Date/Time Current Smoking Status Comment Facility Mar 20, 2021 11:21 AM [place]-VTAES TOBACCO USE CURRENT NRT [facility] DECLINE Tobacco Use History This section includes a history of the smoking, or tobacco- related health factors, that were collected on or before the date of the Encounter. The data comes from the [place] facility where the Encounter took place. 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 [facility] Nov 15, 2020 10:00 AM VA-TOBACCO USE MED NO [place] [facility] Nov 15, 2020 10:00 AM VA-TOBACCO USER EVERY DAY [facility] Jun 21, 2019 02:29 PM VA-TOBACCO USE 30 YEARS OR MORE [facility] Jun 21, 2019 02:29 PM VA-TOBACCO USE ADVICE [place] [facility] Jun 21, 2019 02:29 PM VA-TOBACCO USE 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 [facility] Jun 21, 2019 02:29 PM VA-TOBACCO USE MED NO [place] [facility] Jun 21, 2019 02:29 PM VA-TOBACCO USE [place] 30 MIN OF WAKEUP [facility] Jun 21, 2019 02:29 PM VA-TOBACCO USER EVERY DAY [facility] Jun 09, 2018 03:48 PM VA-TOBACCO USE 30 YEARS OR MORE [facility] Jun 09, 2018 03:48 PM VA-TOBACCO USE ADVICE [place] [facility] Jun 09, 2018 03:48 PM VA-TOBACCO USE 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 [facility] Jun 09, 2018 03:48 PM VA-TOBACCO USE MED NO [place] [facility] Jun 09, 2018 03:48 PM VA-TOBACCO USE WI 30 MIN OF WAKEUP [facility] Jun 09, 2018 03:48 PM VA-TOBACCO USER EVERY DAY [facility] Jun 20, 2017 07:53 AM CURRENT TOBACCO USER [facility] Jun 19, 2016 08:41 AM [facility] Jun 21, 2015 08:15 AM [facility] Mar 22, 2014 10:03 AM CURRENT [facility] Mar 25, 2013 11:01 AM [facility]RENT [facility] Feb 05, 2012 08:55 AM [facility] January 01, 2011 09:26 AM CURRENT [facility]ER [facility] Mar 07, 2010 10:02 AM [facility] Feb 21, 2009 08:17 AM [facility] Nov 06, 2007 10:02 AM CURRENT TOBACCO USER [facility] January 02, 2007 10:33 AM CURRENT TOBACCO USER [facility] Advance Directives: All historical and current Section Date Range: From patient's date of to the date document was created. This section includes ALL of a patient's completed or amended [place] Advance and Rescinded Directives. The entries below indicate that a directive exists for the patient, but an actual copy is not included with this document. The data comes from all [place] facilities. Date Advance Directives Provider Source Mar 06, 2005 ADVANCE DIRECTIVE MICHAELALEXANDRAE [facility] Encounter Notes: All associated encounter notes This section contains the clinical notes associated to the Encounter. Date/Time Encounter Note(s) Provider Source Oct 19, 2021 02:14 PM HOME HEALTH REFERRAL NOTE: KODI MUHAMMAD [facility] LOCAL TITLE: [facility] HOME HEALTH CARE STANDARD TITLE: HOME HEALTH REFERRAL NOTE DATE OF NOTE: OCT 19, 2021@14:14 ENTRY DATE: OCT 19, 2021@14:14:45 AUTHOR: KODI MUHAMMAD EXP COSIGNER: URGENCY: STATUS: COMPLETED HOME HEALTH CARE CERTIFICATION AND PLAN OF CARE SIGNED BY: Dr. Efren Hill for [place] [facility] Certification period From: 10/06/21 To: 12/04/21 /billy/ KODI MUHAMMAD ADVANCED HOB GRINDER Signed: 10/19/2021 14:15
--- OUTSIDE RECORDS SUMMARY | 2022-04-02 16:15 | XMS_ITS | Encounter Summary ---
:1945 Author Organization Department [facility] Address [address] [place] [id number] Care Team Providers Name Role Phone WILLA [...] MEDICARE MEDICARE PART Jun 25, PART B [id number] Saumya QUINONES PATIENT (WNR) (M) B 2011 78A 0 AVID MEDICARE MEDICARE PART Sep 25, PART A [id number] Saumya QUINONES PATIENT (WNR) (M) A 2009 78A 0 AVID MEDICARE MEDICARE PART Sep 25, PART A [id number] Saumya MICHELE (WNR) (M) A 2009 78A [id number] AVID MEDICARE MEDICARE PART Sep 25, PART B [id number] Saumya MICHELE (WNR) (M) B 2009 78A [id number] AVID Selected Encounter This section includes the information on record at [place] for the Encounter. Date/Time Encounter Type Encounter Reason Provider Source Description Nov 05, 2021 Outpatient TELEPHONE/MEDICI ICD-10-CM Z95.810 GLAUSER,ZAFAR RA 11:30 AM Encounter NE Presence of N automatic (implantable) cardiac defibrillator with Provider Comments: Cardiac defibrillator in situ ([facility] [id number]) IHE Encounter Template Text not used by [facility] Assessments - Encounter Diagnoses This section includes the primary and secondary diagnoses documented for the Encounter. Date/Time Primary/Secondary Diagnosis Name Provider Source Diagnosis Nov 05, 2021 PRIMARY Presence of [facility] 11:30 AM automatic N [facility] (implantable) cardiac defibrillator Nov 05, 2021 SECONDARY Other persistent GLAUSER,[facility] 11:30 AM atrial fibrillation N [facility] Nov 05, 2021 SECONDARY Ventricular GLAUSER,[facility] 11:30 AM premature N [facility] depolarization Plan of Treatment: Future Appointments (+ 6 months) and Future Tests (+/- 45 days) The Plan of Treatment section includes future care activities for the patient from all [place] [facility] hospital. This section includes future appointments and future orders which are active, pending orscheduled.Future Appointments This section includes appointments that were scheduled to occur 6 months from the date of the Encounter, up to a maximum of 20 appointments. The data comes from all [place] treatment facilities. Appointment Date/Time Appointment Type Appointment Facili ty Name Nov 09, 2021 09:30 AM AMBULATORY - NONE [facility] Nov 19, 2021 12:45 PM AMBULATORY - MEDICINE [facility] Nov 21, 2021 10:00 AM AMBULATORY - SURGERY [facility] Nov 29, 2021 06:30 AM AMBULATORY - NONE [facility] Nov 29, 2021 07:30 AM AMBULATORY - MEDICINE [facility] Nov 29, 2021 08:00 AM AMBULATORY - MEDICINE [facility] Dec 21, 2021 09:30 AM AMBULATORY - NONE [facility] January 07, 2022 01:30 PM AMBULATORY - MEDICINE [facility] Feb 05, 2022 07:00 AM AMBULATORY - NONE [facility] Feb 07, 2022 09:30 AM AMBULATORY - NONE [facility] Feb 13, 2022 10:00 AM AMBULATORY - NONE [facility] Mar 21, 2022 09:30 AM AMBULATORY - NONE [facility] Active, Pending, and Scheduled Orders This section includes a listing of several types of active, pending, and scheduled orders, including clinic medications orders, diagnostic test orders, procedure orders and consult orders; where the start date of the order is 45 days before the date of the Encounter or 45 days after the date of the Encounter. The data comes from all [place] treatment facilities. Test Date/Time Test Type Test Details Facility Name Sep 25, 2021 03:21 PM Pharmacy - Clinic [facility] Infusion Order Nov 29, 2021 06:30 AM Laboratory - Blood Bank TYPE & SCREEN - LA B [facility] Order BLOOD SP Dec 15, 2021 [...] Range Comment Nov 30, 2021 11:26 [facility] FINGERSTICK GLUCOSE Speci men Type: BLOOD AM Comment: [place] Nurse Notified Ordering Provid er: IRENE BURNS TWO Report Released Date/Time: Nov 30, 2021 11:46 AM Reporting Lab: [facility] [address] [facility] [address] Performing Lab: [facility] [address] [facility] [address] FINGERSTICK GLUCOSE 284 mg/dL H 70-100 Nov 30, 2021 09:[address] [facility] ALBUMIN Specim en Type: PLASMA No comment enter ed. Ordering Provid er: ELIUD DINERO Report Released Date/Time: Nov 29, 2021 07:53 PM Reporting Lab: [facility] [address] [facility] [address] Performing Lab: [facility] [address] [facility] [address] ALBUMIN 3.4 g/dL L 3.5-5.2 Nov 30, 2021 09:47 [facility] BASIC METABOLIC Specimen Type: PLASMA AM PANEL+MG No comment enter ed. Ordering Provid er: ANGIE MALHOTRA Report Released Date/Time: Nov 29, 2021 08:12 PM Reporting Lab: [facility] [address] [facility] [address] Performing Lab: [facility] [address] [facility] [address] CREATININE 1.2 mg/dL 0.7-1.2 UREA NITROGEN 18 mg/dL 8-26 GLUCOSE 342 mg/dL H 74-100 SODIUM 141 mmol/L 136-145 POTASSIUM 4.3 mmol/L 3.5-5.1 CHLORIDE 108 mmol/L H 98-107 CO2 26 mmol/L 22-29 CALCIUM 8.6 mg/dL 8.4-10.2 MAGNESIUM 1.5 mg/dL L 1.6-2.6 ANION GAP 7 mmol/L 5-15 CREAT EGFR(CKD-EPI) 63 >60 Nov 30, 2021 09:[address] [facility] CBC Specim en Type: BLOOD No comment enter ed. Ordering Provid er: ANGIE MALHOTRA Report Released Date/Time: Nov 29, 2021 08:12 PM Reporting Lab: [facility] [address] [facility] [address] Performing Lab: [facility] [address] WBC 10.61 10*3/uL 4.0-11.0 RBC 4.33 10*6/uL L 4.6-6.2 HGB 14.6 g/dL 13.5-17.9 HCT 45.2 41-54 MCV 104.4 fL H 80-100 MCH 33.7 pg H 27-33 MCHC 32.3 g/dL 32.0-37.5 PLT 71 10*3/uL L 150-400 MPV 13.9 fL H 7.4-10.4 RDW 14.7 H 11.5-14.5 IPF 17.8 H 0-10 Nov 30, 2021 06:09 [facility] FINGERSTICK GLUCOSE Speci men Type: BLOOD AM Comment: [place] Nurse Notified Ordering Provid er: TEAM,CARDS TWO Report Released Date/Time: Nov 30, 2021 06:32 AM Reporting Lab: [facility] [address] [facility] [address] Performing Lab: [facility] [address] [facility] [address] FINGERSTICK GLUCOSE 165 mg/dL H 70-100 Nov 29, 2021 07:35 [facility] FINGERSTICK GLUCOSE Speci men Type: BLOOD PM Comment: [place] Nurse Notified Ordering Provid er: TEAM,CARDS TWO Report Released Date/Time: Nov 29, 2021 07:48 PM Reporting Lab: [facility] [address] [facility] [address] Performing Lab: [facility] [address] [facility] [address] FINGERSTICK GLUCOSE 160 mg/dL H 70-100 Nov 29, 2021 06:52 [facility] FINGERSTICK GLUCOSE Speci men Type: BLOOD PM Comment: [place] Nurse Notified Ordering Provid er: SAKSHI CROUCH Report Released Date/Time: Nov 29, 2021 07:04 PM Reporting Lab: [facility] [address] [facility] [address] Performing Lab: [facility] [address] FINGERSTICK GLUCOSE 161 mg/dL H 70-100 Nov 29, 2021 04:18 [facility] FINGERSTICK GLUCOSE Speci men Type: BLOOD PM No comment enter ed. Ordering Provid er: IRENE BURNS TWO Report Released Date/Time: Nov 29, 2021 08:08 PM Reporting Lab: [facility] [address] Performing Lab: [facility] [address] FINGERSTICK GLUCOSE 179 mg/dL H 70-100 Nov 29, 2021 03:26 [facility] POC ABG/ELECTROLYTES Spec imen Type: ARTERIAL BLOOD PM Comment: Sample Type = ARTERIAL Ordering Provid er: IRENE BURNS TWO Report Released Date/Time: Nov 29, 2021 07:53 PM Reporting Lab: [facility] [address] Performing Lab: [facility] [address] POC PH 7.321 L 7.35-7.45 POC PCO2 [...] L 4.50-5.30 Nov 29, 2021 03:24 [facility] FINGERSTICK GLUCOSE Speci men Type: BLOOD PM Comment: [place] Ordering Provid er: GRANTCARDS TWO Report Released Date/Time: Nov 29, 2021 08:08 PM Reporting Lab: [facility] [address] [facility] [address] Performing Lab: [facility] [address] [facility] [address] FINGERSTICK GLUCOSE 188 mg/dL H 70-100 Nov 29, 2021 02:06 [facility] POC ABG/ELECTROLYTES Spec imen Type: ARTERIAL BLOOD PM Comment: Sample Type = ARTERIAL Ordering Provid er: IRENE BURNS TWO Report Released Date/Time: Nov 29, 2021 07:53 PM Reporting Lab: [facility] [address] [facility] [address] Performing Lab: [facility] [address] POC PH 7.313 L 7.35-7.45 POC PCO2 [...] L 4.50-5.30 Nov 29, 2021 02:04 [facility] FINGERSTICK GLUCOSE Speci men Type: BLOOD PM Comment: Save R esult Ordering Provid er: IRENE BURNS TWO Report Released Date/Time: Nov 29, 2021 08:08 PM Reporting Lab: [facility] [address] [facility] [address] Performing Lab: [facility] [place] [address] [facility] [address] FINGERSTICK GLUCOSE 236 mg/dL H 70-100 Nov 29, 2021 01:[address] [facility] POC ACT Specim en Type: BLOOD No comment enter ed. Ordering Provid er: IRENE BURNS TWO Report Released Date/Time: Dec 03, 2021 01:31 PM Reporting Lab: [facility] [place] [address] [facility] [address] Performing Lab: [facility] [address] [facility] [address] POC ACT 135 s 84-139 Nov 29, 2021 01:[address] [facility] POC ACT Specim en Type: BLOOD No comment enter ed. Ordering Provid er: IRENE BURNS TWO Report Released Date/Time: Dec 03, 2021 01:30 PM Reporting Lab: [facility] [address] [facility] [address] Performing Lab: [facility] [address] [facility] [address] POC ACT 355 s 84-139 Nov 29, 2021 12:[address] [facility] POC ACT Specim en Type: BLOOD No comment enter ed. Ordering Provid er: IRENE BURNS TWO Report Released Date/Time: Dec 03, 2021 01:30 PM Reporting Lab: [facility] [address] Performing Lab: [facility] [address] POC ACT 367 s 84-139 Nov 29, 2021 12:48 [facility] POC ABG/ELECTROLYTES Spec imen Type: ARTERIAL BLOOD PM Comment: Sample Type = ARTERIAL Ordering Provid er: IRENE BURNS TWO Report Released Date/Time: Nov 29, 2021 07:53 PM Reporting Lab: [facility] [address] [facility] [address] Performing Lab: [facility] [address] POC PH 7.289 L 7.35-7.45 POC PCO2 [...] mg/dL 4.50-5.30 Nov 29, 2021 12:45 [facility] FINGERSTICK GLUCOSE Speci men Type: BLOOD PM Comment: Save R esult Ordering Provid er: IRENE BURNS TWO Report Released Date/Time: Nov 29, 2021 08:08 PM Reporting Lab: [facility] [address] [facility] [address] Performing Lab: [facility] [address] [facility] [address] FINGERSTICK GLUCOSE 186 mg/dL H 70-100 Nov 29, 2021 12:[address] [facility] POC ACT Specim en Type: BLOOD No comment enter ed. Ordering Provid er: IRENE BURNS Report Released Date/Time: Dec 03, 2021 01:30 PM Reporting Lab: [facility] [address] [place] [facility] [address] Performing Lab: [facility] [address] [place] [facility] [address] POC ACT 367 s 84-139 Nov 29, 2021 11:[address] [facility] POC ACT Specim en Type: BLOOD No comment enter ed. Ordering Provid er: IRENE BURNS Report Released Date/Time: Dec 03, 2021 01:30 PM Reporting Lab: [facility] [address] [place] [facility] [address] Performing Lab: [facility] [address] [place] [facility] [address] POC ACT 338 s 84-139 Nov 29, 2021 11:53 [facility] FINGERSTICK GLUCOSE Speci men Type: BLOOD AM Comment: Save R esult Ordering Provid er: IRENE BURNS Report Released Date/Time: Nov 29, 2021 08:08 PM Reporting Lab: [facility] [address] [place] [facility] [address] Performing Lab: [facility] [address] [place] [facility] [address] FINGERSTICK GLUCOSE 225 mg/dL H 70-100 Nov 29, 2021 11:[address] [facility] POC ACT Specim en Type: BLOOD No comment enter ed. Ordering Provid er: IRENE BURNS Report Released Date/Time: Dec 03, 2021 01:30 PM Reporting Lab: [facility] [address] [place] [facility] [address] Performing Lab: [facility] [address] [place] [facility] [address] POC ACT 355 s 84-139 Nov 29, 2021 11:26 [facility] POC ABG/ELECTROLYTES Spec imen Type: ARTERIAL BLOOD AM Comment: Sample Type = ARTERIAL Ordering Provid er: IRENE BURNS Report Released Date/Time: Nov 29, 2021 07:53 PM Reporting Lab: [facility] [address] [place] [facility] [address] Performing Lab: [facility] [address] [place] [facility] [address] POC PH 7.317 L 7.35-7.45 POC PCO2 [...] mg/dL 4.50-5.30 Nov 29, 2021 11:06 [facility] FINGERSTICK GLUCOSE Speci men Type: BLOOD AM No comment enter ed. Ordering Provid er: IRENE BURNS TWO Report Released Date/Time: Nov 29, 2021 08:08 PM Reporting Lab: [facility] [facility] [address] Performing Lab: [facility] [address] FINGERSTICK GLUCOSE 221 mg/dL H 70-100 Nov 29, 2021 11:[address] [facility] POC ACT Specim en Type: BLOOD No comment enter ed. Ordering Provid er: IRENE BURNS TWO Report Released Date/Time: Dec 03, 2021 01:30 PM Reporting Lab: [facility] [address] [facility] [address] Performing Lab: [facility] [address] POC ACT 294 s 84-139 Nov 29, 2021 10:[address] [facility] POC ACT Specim en Type: BLOOD No comment enter ed. Ordering Provid er: IRENE BURNS TWO Report Released Date/Time: Dec 03, 2021 01:30 PM Reporting Lab: [facility] [address] [facility] [address] Performing Lab: [facility] [address] POC ACT 329 s 84-139 Nov 29, 2021 10:[address] [facility] POC ACT Specim en Type: BLOOD No comment enter ed. Ordering Provid er: IRENE BURNS TWO Report Released Date/Time: Dec 03, 2021 01:30 PM Reporting Lab: [facility] [address] [facility] [address] Performing Lab: [facility] [address] [facility] [address] POC ACT 312 s 84-139 Nov 29, 2021 09:58 [facility] POC ABG/ELECTROLYTES Spec imen Type: ARTERIAL BLOOD AM Comment: Sample Type = ARTERIAL Ordering Provid er: IRENE BURNS TWO Report Released Date/Time: Nov 29, 2021 07:53 PM Reporting Lab: [facility] [place] [address] [facility] [address] Performing Lab: [facility] [address] POC PH 7.334 L 7.35-7.45 POC PCO2 [...] mg/dL 4.50-5.30 Nov 29, 2021 09:56 [facility] FINGERSTICK GLUCOSE Speci men Type: BLOOD AM No comment enter ed. Ordering Provid er: IRENE BURNS TWO Report Released Date/Time: Nov 29, 2021 08:08 PM Reporting Lab: [facility] [facility] [facility] [address] Performing Lab: [facility] [address] [facility] [address] FINGERSTICK GLUCOSE 194 mg/dL H 70-100 Nov 29, 2021 09:[address] [facility] POC ACT Specim en Type: BLOOD No comment enter ed. Ordering Provid er: IRENE BURNS TWO Report Released Date/Time: Dec 03, 2021 01:30 PM Reporting Lab: [facility] [address] [facility] [address] Performing Lab: [facility] [address] [facility] [address] POC ACT 269 s 84-139 Nov 29, 2021 08:[address] [facility] POC ACT Specim en Type: BLOOD No comment enter ed. Ordering Provid er: TEAM,CARDS TWO Report Released Date/Time: Dec 03, 2021 01:30 PM Reporting Lab: [facility] [address] Performing Lab: [facility] [address] POC ACT 135 s 84-139 Nov 29, 2021 [facility] COVID-19 AND FLU/RSV Specime n Type: NASOPHARYNGEAL 07:05 AM DIAG PANEL(CEPHEID) Comment: Ce pheid GeneXpert (618) Ordering Provid er: KATHERINE FIGUEROA Report Released Date/Time: Oct 29, 2021 12:22 PM Reporting Lab: [facility] [address] Performing Lab: [facility] [address] COVID-19 (CEPHEID) Not Detected Not Dete cted INFLUENZA A (PCR) Not Detected Not Detec susanne INFLUENZA B (PCR) Not Detected Not Detec susanne RSV (PCR) Not Detected Not Detected Nov 29, 2021 [facility] BASIC METABOLIC Specimen Typ e: PLASMA 06:38 AM PANEL+MG No comment enter ed. Ordering Provid er: KATHERINE FIGUEROA Report Released Date/Time: Oct 29, 2021 12:22 PM Reporting Lab: [facility] [address] [facility] [address] Performing Lab: [facility] [address] CREATININE 1.4 mg/dL H 0.7-1.2 UREA NITROGEN 23 mg/dL 8-26 GLUCOSE 201 mg/dL H 74-100 SODIUM 143 mmol/L 136-145 POTASSIUM 4.3 mmol/L 3.5-5.1 CHLORIDE 108 mmol/L H 98-107 CO2 28 mmol/L 22-29 CALCIUM 9.9 mg/dL 8.4-10.2 MAGNESIUM 1.9 mg/dL 1.6-2.6 ANION GAP 7 mmol/L 5-15 CREAT EGFR(CKD-EPI) 53 L >60 Nov 29, 2021 06:38 [facility] CBC Specimen Type: BLOOD AM No comment enter ed. Ordering Provid er: KATHERINE FIGUEROA Report Released Date/Time: Oct 29, 2021 12:22 PM Reporting Lab: [facility] [address] [place] [address] Performing Lab: [facility] [place] [address] WBC 7.40 10*3/uL 4.0-11.0 RBC 5.17 10*6/uL 4.6-6.2 HGB 17.6 g/dL 13.5-17.9 HCT 52.7 41-54 MCV 101.9 fL H 80-100 MCH 34.0 pg H 27-33 MCHC 33.4 g/dL 32.0-37.5 PLT 88 10*3/uL L 150-400 MPV 14.3 fL H 7.4-10.4 RDW 14.4 11.5-14.5 IPF 18.0 H 0-10 Nov 29, 2021 [facility] PROTHROMBIN Specimen Typ e: PLASMA 06:38 AM TIME/INR No comment enter ed. Ordering Provid er: KATHERINE FIGUEROA Report Released Date/Time: Oct 29, 2021 12:22 PM Reporting Lab: [facility] [address] [address] Performing Lab: [facility] [address] [place] [address] .INR 1.1 0.8-1.1 .PT 13.1 s H 9.4-12.5 Nov 29, 2021 [facility] ACT PART Specimen Typ e: PLASMA 06:38 AM THROMBO TIME No comment enter ed. Ordering Provid er: KATHERINE FIGUEROA Report Released Date/Time: Oct 29, 2021 12:22 PM Reporting Lab: [facility] [address] [address] Performing Lab: [facility] [address] [facility] [address] APTT 33.3 s 25.1-36.5 Social History: Smoking [...] AM VA-VAAES TOBACCO USE CURRENT NRT [facility] DECLINE Tobacco Use History This section includes a history of the smoking, or tobacco- related health factors, that were collected on or before the date of the Encounter. The data comes from the [facility] where the Encounter took place. Date/Time Smoking Status/Tobacco Use Comment Facil ity Nov 15, 2020 10:00 AM VA-TOBACCO DOESNT USE [place] [address] [facility] WAKEUP Nov 15, 2020 10:00 AM VA-TOBACCO USE [address] 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 Nov 15, 2020 10:00 AM VA-TOBACCO USE MED NO [place] [facility] Nov 15, 2020 10:00 AM VA-TOBACCO USER EVERY DAY [facility] Jun 21, 2019 02:29 PM VA-TOBACCO USE [address] 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 Jun 21, 2019 02:29 PM VA-TOBACCO USE MED NO [place] [facility] Jun 21, 2019 02:29 PM VA-TOBACCO [place] [address] [facility] Jun 21, 2019 02:29 PM VA-TOBACCO USER EVERY DAY [facility] Jun 09, 2018 03:48 PM VA-TOBACCO USE [address] 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 Jun 09, 2018 03:48 PM VA-TOBACCO USE MED NO [place] [facility] Jun 09, 2018 03:48 PM VA-TOBACCO [place] [address] [facility] Jun 09, 2018 03:48 PM VA-TOBACCO USER EVERY DAY [facility] Jun 20, 2017 07:53 AM CURRENT TOBACCO USER [facility] Jun 19, 2016 08:41 AM CURRENT TOBACCO USER [facility] Jun 21, 2015 08:15 AM CURRENT TOBACCO USER [facility] Mar 22, 2014 10:03 AM [...] 06, 2005 ADVANCE DIRECTIVE GANESH RODRIGUEZ [facility] Radiology Reports: +/- 30 days of [...] the Encounter. The data comes from all [place] treatment facilities. Date/Time Radiology Report Provider Source Nov 30, 2021 07:05 AM CHEST 2 VIEWS PA AND LAT: MONET LUDWIG [facility] PAUL MICHELE ROBERTO [id number] -[birth year], [birth year] 9 M Exm Date: NOV 30, 2021@07:05 Req Phys: CHERRY MENDOZA Loc: 3LSOB/ 2@08:05 Img Loc: MAIN X-RAY Service: zzcard sect (Case [id number] COMPLETE) CHEST 2 VIEWS PA AND LAT (R AD Detailed) CPT:12756 Reason for Study: s/p upgrade ICD adding [...] pager listed below: User placing orders pager: [phone] LAST CREATININE 1.4 H (11/29/21) Report Status: Verified Date Reported: NOV 30, 2021 Date Verified: NOV 30, 2021 Production Statistical Clerk E-Sig:/ES/MONET LUDWIG MD, FACR, C CD Report: [...] 29, 2021 06:25 PM CHEST 1 VIEW[facility] PA[facility] [id number] -[birth year], [birth year] 9 M Exm Date: NOV 29, 2021@18:25 Req Phys: CHERRY MENDOZA Loc: [facility] [address] [facility] (Req'g Loc) Img Loc: MAIN X-RAY Service: Unknown (Case [id number] COMPLETE) CHEST 1 VIEW (RAD Detailed) CPT:66637 Reason for Study: s/p upgrade ICD adding [...] pager listed below: User placing orders pager: [phone] LAST CREATININE 1.4 H (11/29/21) Report Status: Verified Date Reported: NOV 29, 2021 Date Verified: NOV 29, 2021 Production Statistical Clerk E-Sig:/ES/MAGDALENE DAVIDSON MD Report: DATE/TIME REGISTERED: 11/29/2021 [...] Primary Interpreting Staff: MAGDALENE DAVIDSON MD, RADIOLOGIST (Production Statistical Clerk) /LUAN Encounter Notes: All associated encounter notes This section contains the clinical notes associated to the Encounter. Date/Time Encounter Note(s) Provider Source Nov 05, 2021 08:20 AM CARDIOLOGY DIAGNOSTIC STUDY NOTE: TUCKER JULIAN [facility] LOCAL TITLE: CARDIOLOGY ELECTROPHYSIOLOGY NOTE STANDARD TITLE: CARDIOLOGY DIAGNOSTIC STUDY NOTE DATE OF NOTE: NOV 05, 2021@08:20 ENTRY DATE: NOV 05, 2021@08:20:24 AUTHOR: TUCKER JULIAN EXP COSIGNER: URGENCY: STATUS: COMPLETED CARDIAC ELECTROPHYSIOLOGY TELEPHONE CLINIC NOTE This visit was completed via telephone CC: F/U atrial fibrillation/ICD/cardiomyopathy/P VCs HPI: Patient is a 76 year-old male with PMH incl uding DM2, HTN, COPD, tobacco use, CAD s/p GA with angioplasty to RCA in 1993, s/p [...] arranged and is scheduled next month. At [facility] ent EP f/u it was noted patient was having frequent PVCs on EKG and Ziopatch obtained, showing ~11% overall PVC burden. Patient was contacted over the phone today for f /u. He reports doing well - denies current palpitations, dyspnea on exertion , chest pain/pressure, lightheadedness, dizziness, presyncope, syncope, orthopnea, PND, or LE edema. PAST MEDICAL HISTORY Active problems - Computerized Problem List is t he source for the followin. Status post left inguinal hernia repair 2. Chronic low back pain 3. Thrombocytopenia (SNOMED CT 366169753) 4. Chronic obstructive pulmonary disease (SNOME D CT 08509265) - FEV1/FVC (05/2011) 2.47/3.46. FEV1 58% pred. FEV1% 70. 5. History of adenomatous polyp of colon (SNOME D CT 235961935) 6. Type 2 diabetes mellitus 7. Hypertension 8. Coronary artery disease - S/P inferior GA in 1993. - S/P atherectomy RCA in 1993. - S/P CABG x 3 in 2010. 9. Chronic systolic heart failure - S/P ICD placement in 2011. - Echo (12/2020 ANW) EF 23%, LAE, mod global hyp okinesis. 10. Hyperlipidemia 11. Tobacco use 12. Cardiac defibrillator in situ 13. Peripheral neuropathy 14. Persistent atrial fibrillation -----PRIOR CARDIAC TESTING----- -Echocardiogram (07/26/21): 1. The left ventricle is moderate to severely di lated. The left ventricular systolic function is severely reduced. The [facility] estimated LV ejection fraction is 20%. [...] study 12/11/11, LV systolic funciton is reduced. -Echocardiogram (01/11/21): 1. Severely increased left ventricular [...] studies on this patient for comparison purposes. -Ziopatch (Sep 2021): Event monitor ([employer]) ECG REPORT 7 day heart monitor Sep [...] of 11.4% 6. No atrial fibrillation detected -Latest EKG (01/17/21): SR with PVCs 78 bpm ALLERGIES LISINOPRIL (Nov 09, 2007) FACILITY ALLERGY/ADR -------- No Remote Allergy/ADR Data available for this ray sheth [facility] LISINOPRIL MEDICATIONS Active and Recently Outpatient [...] METOPROLOL SUCCINATE 200MG SA TAB TAKE ONE-H GROUP HOME ACTIVE TABLET BY MOUTH EVERY DAY FOR [...] TS CLAW ACTIVE MOUTH 19 Total Medications No Active Remote Medications for this patient LABS SODIUM 142 (09/21/21) POTASSIUM 4.0 (09/21/21) MAGNESIUM 2.0 (09/21/21) UREA NITROGEN 15 (09/21/21) CREATININE 1.3 H (09/21/21) GLUCOSE 173 H (09/21/21) WBC 7.85 (06/18/21) HGB 16.8 (06/18/21) PLT 98 L (06/18/21) Collection DT Specimen Test Name Result Units [...] COMMENTS AVAILABLE...Refer to Inter im Lab Report. ASSESSMENT/PLAN 1. Freq PVCs: Discussed with Dr. Figueroa and patient - will consider PVC ablation down the road (afte r PVI) as PVCs are monomorphic and with high burden could be contributing to cardiomyopathy as well as triggering ventricular arrhythmias. Discussed with patient who is in ag reement. Will prioritize AFib ablation over PVC given h/o inappropriate shocks . 2. H/O persistent atrial fibrillation: S /P dofetilide loading with 250 mcg bid (borderline renal function) and successful DCCV February 2021 - dofetilide discontinued March 2021 after ICD shock for VT with concern about dofetilide proarrhythmia. -No AFib episodes noted during Ziopatch monitori ng period -PVI scheduled next month -CHADSVASC score is at least 5 (age, CHF, HTN, D M, CAD), on apixaban 5 mg bid with no bleeding concerns -Discussed lifestyle interve ntions for atrial fibrillation. He is not interested in USAMA evaluation. He drinks 2-3 alcohol ic drinks several times per week - not interested in cutting back. 3. 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 Garcia, on me dical therapy with metoprolol succinate, Entresto, emplagliflozin. 4. Single-chamber ICD in place: Implante d 2011 for primary prevention, has had appropriate and inappropriat e shocks. Programmed VVI 40 with <1% V pacing. Lead measurements stable. -No recent arrhythmias noted -Device battery nearing ANJANA - plan to replace ge nerator and upgrade to dual chamber device at that time to allow for AFib monitoring and discriminators to prevent future inappropriate shocks. 5. Tobacco use: Advised cessation, he rodríguez s no interest in quitting at this time 6. CAD: Denies angina, on medical therapy. Follow up: Will be arranged after PVI Time spent: 30 minutes /billy/ TUCKER JULIAN PA-C PHYSICIAN COMMERCIAL SALES MANAGER Signed: 11/05/2021 16:09
--- OUTSIDE RECORDS SUMMARY | 2022-04-02 16:15 | XMS_ITS | Encounter Summary ---
:1945 Author Organization [facility] Address [address] [place] [address] Care Team Providers Name Role Phone CROUCH [...] MEDICARE MEDICARE PART Jun 25, PART B [id number] Saumya QUINONES PATIENT (WNR) (M) B 2011 78A 0 AVID MEDICARE MEDICARE PART Sep 25, PART A [id number] Saumya QUINONES PATIENT (WNR) (M) A 2009 78A 0 AVID MEDICARE MEDICARE PART Sep 25, PART A [id number] Saumya MICHELE (WNR) (M) A 2009 78A [id number] AVID MEDICARE MEDICARE PART Sep 25, PART B [id number] Saumya MICHELE (WNR) (M) B 2009 78A [id number] AVID Selected Encounter This section includes the information on record at MD for the Encounter. Date/Time Encounter Type Encounter Reason Provider Source Description Oct 18, 2021 Outpatient HT NON-VIDEO ICD-10-CM I50.9 DOE BURDICK 11:15 AM Encounter MONITORING Heart failure, N M unspecified with Provider Comments: Heart Failure, unspecified IHE Encounter Template Text not used by MD Assessments - Encounter Diagnoses This section includes the primary and secondary diagnoses documented for the Encounter. Date/Time Primary/Secondary Diagnosis Name Provider Source Diagnosis Oct 18, 2021 PRIMARY Heart failure, NILESH BURDICK [facility] 11:16 AM unspecified [facility] Plan of Treatment: Future Appointments (+ 6 months) and Future Tests (+/- 45 days) The Plan of Treatment section includes future care activities for the patient [facility] This section includes future appointments and future orders which are active, pending orscheduled.Future Appointments This section includes appointments that were scheduled to occur 6 months from the date of the Encounter, up to a maximum of 20 appointments. The data comes from all MD treatment [facility]. Appointment Date/Time Appointment Type Appointment Facili ty Name Nov 02, 2021 08:42 PM AMBULATORY - MEDICINE [facility] Nov 05, 2021 11:30 AM AMBULATORY - MEDICINE [facility] Nov 09, 2021 09:30 AM AMBULATORY - NONE [facility] Nov 19, 2021 12:45 PM AMBULATORY - MEDICINE [facility] Nov 21, 2021 10:00 AM AMBULATORY - SURGERY [facility] S Nov 29, 2021 06:30 AM AMBULATORY - NONE [facility] Nov 29, 2021 07:30 AM AMBULATORY - MEDICINE [facility] Nov 29, 2021 08:00 AM AMBULATORY - MEDICINE [facility] Dec 21, 2021 09:30 AM AMBULATORY - NONE [facility] January 07, 2022 01:30 PM AMBULATORY - MEDICINE [facility] Feb 05, 2022 07:00 AM AMBULATORY - NONE [facility] Feb 07, 2022 09:30 AM AMBULATORY - NONE [facility] Feb 13, 2022 10:00 AM AMBULATORY - NONE [facility] Mar 21, 2022 09:30 AM AMBULATORY - NONE [facility] Active, Pending, and Scheduled Orders This section includes a listing of several types of active, pending, and scheduled orders, including clinic medications orders, diagnostic test orders, procedure orders and consult orders; where the start date of the order is 45 days before the date of the Encounter or 45 days after the date of the Encounter. The data comes from all MD treatment [facility]. Test Date/Time Test Type Test Details Facility Name Sep 25, 2021 03:21 PM Pharmacy - Clinic [facility] Infusion Order Nov 29, 2021 06:30 AM Laboratory - Blood Bank TYPE & SCREEN - LA B [facility] Order BLOOD SP Lab Results: +/- 30 days of the encounter This section includes the Chemistry and Hematology Lab Results on record with MD for the patient. Radiology Reports and Pathology Reports are provided separately, in subsequent sections.Lab Results This section contains the Chemistry/Hematology Results that were resulted 30 days before or 30 daysafter the date of the Encounter. Date/Time Source Result Type Result - Unit Interpretation Reference Range Comment Sep 21, 2021 08:58 [facility] BASIC METABOLIC Specimen Type: PLASMA AM PANEL+MG No comment enter ed. Ordering Provid er: TUCKER JULIAN Report Released Date/Time: Sep 21, 2021 08:58 AM Reporting Lab: [facility] [id number] Performing Lab: [facility] [id number] CREATININE 1.3 mg/dL H 0.7-1.2 UREA NITROGEN 15 mg/dL 8-26 GLUCOSE 173 mg/dL H 74-100 SODIUM 142 mmol/L 136-145 POTASSIUM 4.0 mmol/L 3.5-5.1 CHLORIDE 107 mmol/L 98-107 CO2 29 mmol/L 22-29 CALCIUM 9.6 mg/dL 8.4-10.2 MAGNESIUM 2.0 mg/dL 1.6-2.6 ANION GAP 6 mmol/L 5-15 ESTIMATED GFR(eGFR) 54 L >60 Sep 21, 2021 08:55 AM [facility] HEMOGLOBIN A1C Specim en Type: BLOOD No comment enter ed. Ordering Provid er: JAYY SAMS Report Released Date/Time: Sep 14, 2021 11:24 AM Reporting Lab: [facility] [id number] Performing Lab: [facility] [id number] HEMOGLOBIN A1C 8.5 H 4.0-6.0 Social History: Smoking Status (Most current) and Tobacco Use (All prior to encounter date) This section includes the most current, and the historical, smoking and tobacco-related health factors from the MD facility where the Encounter took place.Current Smoking Status This section includes the most current smoking, or tobacco-related health factor, from the MD facility where the Encounter took place. Date/Time Current Smoking Status Comment Facility Mar 20, 2021 11:21 AM VA-VAAES TOBACCO USE CURRENT NRT [facility] DECLINE Tobacco Use History This section includes a history of the smoking, or tobacco- related health factors, that were collected on or before the date of the Encounter. The data comes from the [facility] where the Encounter took place. Date/Time Smoking Status/Tobacco Use Comment Facil ity Nov 15, 2020 10:00 AM VA-TOBACCO DOESNT USE WI 30 MIN [facility] WAKEUP Nov 15, 2020 10:00 AM VA-TOBACCO USE 30 YEARS OR MORE [facility] Nov 15, 2020 10:00 AM VA-TOBACCO USE ADVICE [place] [facility] Nov 15, 2020 10:00 AM VA-TOBACCO USE CREDIT UNDERWRITER NO [facility] Nov 15, 2020 10:00 AM VA-TOBACCO USE MED NO [place] [facility] Nov 15, 2020 10:00 AM VA-TOBACCO USER EVERY DAY [facility] Jun 21, 2019 02:29 PM VA-TOBACCO USE 30 YEARS OR MORE [facility] Jun 21, 2019 02:29 PM VA-TOBACCO USE ADVICE [place] [facility] Jun 21, 2019 02:29 PM VA-TOBACCO USE CREDIT UNDERWRITER NO [facility] Jun 21, 2019 [...] Jun 09, 2018 03:48 PM VA-TOBACCO USE CREDIT UNDERWRITER NO [facility] Jun 09, 2018 03:48 PM VA-TOBACCO USE MED NO [place] [facility] Jun 09, 2018 03:48 PM VA-TOBACCO USE [place] 30 MIN OF WAKEUP [facility] Jun 09, 2018 03:48 PM VA-TOBACCO USER EVERY DAY [facility] Jun 20, 2017 07:53 AM CURRENT TOBACCO USER [facility] Jun 19, 2016 08:41 AM CURRENT TOBACCO USER [facility] Jun 21, 2015 08:15 AM CURRENT TOBACCO USER [facility] Mar 22, 2014 10:03 AM CURRENT TOBACCO USER [facility] Mar 25, 2013 11:01 AM CURRENT TOBACCO USER [facility] Feb 05, 2012 08:55 AM CURRENT TOBACCO USER NHI [facility] January 01, 2011 09:26 AM CURRENT TOBACCO USER [facility] Mar 07, 2010 10:02 AM CURRENT [...] ALL of a patient's completed or amended MD Advance and Rescinded Directives. The entries below indicate that a directive exists for the patient, but an actual copy is not included with this document. The data comes from all MD facilities. Date Advance Directives Provider Source Mar 06, 2005 ADVANCE DIRECTIVE GANESH RODRIGUEZ [facility] Encounter Notes: All associated encounter notes This section contains the clinical notes associated to the Encounter. Date/Time Encounter Note(s) Provider Source Oct 18, 2021 11:15 AM CARE COORDINATION HOME TELEHEALTH [facility] NOTE: NILESH BURDICK [facility] LOCAL TITLE: HT MONTHLY MONITOR NOTE STANDARD TITLE: CARE COORDINATION HOME TELEHEALT H SUMMARIZATION DATE OF NOTE: OCT 18, 2021@11:15 ENTRY DATE: OCT 18, 2021@11:15:42 AUTHOR: NILESH BURDICK EXP COSIGNER: URGENCY: STATUS: COMPLETED The [facility] is enrolled in the Home Telehealth ( HT) program and continues to be monitored via HT technology. The data sent by the [facility] is reviewed and analyzed by the staff, who provide ongoin g case management and [facility] health education while communicating and collaborating with the health care team as appropriate. This note cover s a total of 30 minutes for the month monitored. Month monitored: September/ NILESH BURDICK RN Chronic Statistics Manager/HT Signed: 10/18/2021 11:16
--- OUTSIDE RECORDS SUMMARY | 2022-04-02 16:15 | XMS_ITS | Encounter Summary ---
:1945 Author Organization [facility] Address [address] [place], [place] [id number] Care Team Providers Name Role Phone WILLA [...] MEDICARE MEDICARE PART Jun 25, PART B [id number] Saumya QUINONES PATIENT (WNR) (M) B 2011 78A 0 AVID MEDICARE MEDICARE PART Sep 25, PART A [id number] Saumya QUINONES PATIENT (WNR) (M) A 2009 78A 0 AVID MEDICARE MEDICARE PART Sep 25, PART A [id number] Saumya CROUCH (WNR) (M) A 2009 78A [id number] AVID MEDICARE MEDICARE PART Sep 25, PART B [id number] Saumya CROUCH ATTHOMAS (WNR) (M) B 2009 [id number] [id number] AVID Selected Encounter This section includes the information on record at [place] for the Encounter. Date/Time Encounter Type Encounter Description Reason Provider Source Oct 29, 2021 12:12 Outpatient CARDIAC CATHETERIZATION PM Encounter IHE Encounter Template Text not used by [facility] Plan of Treatment: Future Appointments (+ 6 months) and Future Tests (+/- 45 days) The Plan of Treatment section includes future care activities for the patient from all [place] [facility] This section includes future appointments and future orders which are active, pending orscheduled.Future Appointments This section includes appointments that were scheduled to occur 6 months from the date of the Encounter, up to a maximum of 20 appointments. The data comes from all [facility]. Appointment Date/Time Appointment Type Appointment Facili ty Name Nov 02, 2021 08:42 PM AMBULATORY - MEDICINE [facility] Nov 05, 2021 11:30 AM AMBULATORY - MEDICINE [facility] Nov 09, 2021 09:30 AM AMBULATORY - NONE [facility] Nov 19, 2021 12:45 PM AMBULATORY - MEDICINE [facility] Nov 21, 2021 10:00 AM AMBULATORY - SURGERY [facility] S Nov 29, 2021 06:30 AM AMBULATORY - NONE [facility] Nov 29, 2021 07:30 AM AMBULATORY - MEDICINE [facility] CS Nov 29, 2021 08:00 AM AMBULATORY - MEDICINE [facility] Dec 21, 2021 09:30 AM AMBULATORY - NONE [facility] January 07, 2022 01:30 PM AMBULATORY - MEDICINE [facility] Feb 05, 2022 07:00 AM AMBULATORY - NONE [facility] Feb 07, 2022 09:30 AM AMBULATORY - NONE [facility] Feb 13, 2022 10:00 AM AMBULATORY - NONE [facility] Mar 21, 2022 09:30 AM AMBULATORY - NONE [facility] Active, Pending, and Scheduled Orders This [...] 25, 2021 03:21 PM Pharmacy - Clinic [facility] Infusion Order Nov 29, 2021 06:30 AM Laboratory - Blood Bank TYPE & SCREEN - LA B [facility] Order BLOOD SP Social History: Smoking Status [...] 11:21 AM VA-VAAES TOBACCO USE CURRENT NRT [facility] DECLINE Tobacco Use History This section includes a history of the smoking, or tobacco- related health factors, that were collected on or before the date of the Encounter. The data comes from the [place] facility where the Encounter took place. Date/Time Smoking Status/Tobacco Use Comment Facil ity Nov 15, 2020 10:00 AM VA-TOBACCO DOESNT USE WI 30 MIN [facility] WAKEUP Nov 15, 2020 10:00 AM VA-TOBACCO USE 30 YEARS OR MORE [facility] Nov 15, 2020 10:00 AM [facility] Nov 15, 2020 10:00 AM VA-TOBACCO USE SOCIAL MEDIA 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 [facility] Nov 15, 2020 10:00 AM VA-TOBACCO USE MED NO [place] [facility] Nov 15, 2020 10:00 AM VA-TOBACCO USER EVERY DAY [facility] Jun 21, 2019 02:29 PM VA-TOBACCO USE 30 YEARS OR MORE [facility] Jun 21, 2019 02:29 PM [facility]ACCO [facility] Jun 21, 2019 02:29 PM VA-TOBACCO USE SOCIAL MEDIA 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 [facility] Jun 21, 2019 02:29 PM VA-TOBACCO USE MED NO [place] [facility] Jun 21, 2019 02:29 PM VA-TOBACCO USE WI 30 MIN OF WAKEUP [facility] Jun 21, 2019 02:29 PM VA-TOBACCO USER EVERY DAY [facility] Jun 09, 2018 03:48 PM VA-TOBACCO USE 30 YEARS OR MORE [facility] Jun 09, 2018 03:48 PM VA-TOBACCO USE ADVICE [place] [facility] Jun 09, 2018 03:48 PM VA-TOBACCO USE SOCIAL MEDIA 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 [facility] Jun 09, 2018 03:48 PM VA-TOBACCO USE MED NO [place] [facility] Jun 09, 2018 03:48 PM VA-TOBACCO USE WI 30 MIN OF WAKEUP [facility] Jun 09, 2018 03:48 PM VA-TOBACCO USER EVERY DAY [facility] Jun 20, 2017 07:53 AM CURRENT TOBACCO USER [facility] Jun 19, 2016 08:41 AM CURRENT TOBACCO USER [facility] Jun 21, 2015 08:15 AM CURRENT TOBACCO USER [facility] Mar 22, 2014 10:03 AM CURRENT TOBACCO USER [facility] Mar 25, 2013 11:01 AM CURRENT TOBACCO USER [facility] Feb 05, 2012 08:55 AM CURRENT [...] Mar 06, 2005 ADVANCE DIRECTIVE GANESH RODRIGUEZ [facility] Encounter Notes: All associated encounter notes This section contains the clinical notes associated to the Encounter. Date/Time Encounter Note(s) Provider Source Oct 29, 2021 12:55 CARDIOLOGY DIAGNOSTIC STUDY NOTE: OBEY PENNINGTON [facility] LOCAL TITLE: CARDIOLOGY ELECTROPHYSIOLOGY NOTE STANDARD TITLE: CARDIOLOGY DIAGNOSTIC STUDY NOTE DATE OF NOTE: OCT 29, 2021@12:55 ENTRY DATE: OCT 29, 2021@12:55:44 AUTHOR: OBEY PENNINGTON EXP COSIGNER: URGENCY: STATUS: COMPLETED EP Coordinator Preprocedure Note ------ Spoke to the patient today to schedule procedure . Diagnosis:atrial fibrillation EP Procedure:PVI & ICD generator change MD:Dr. Villasenor Company:[employer] anesthesia Lives:[place] Tool Marker:girlfriend 3LSS same discharge Procedure Date:11/29 DM:yes Blood thinners:yes Apixaban 12 hour hold Beta edmond: yes Metoprolol 24 hours hold Meds to hold prior to procedure: ( x ) Diabetic ( ) Antiarrhythmic ( x ) Anticoagulation Echo required? GIRMA required?yes Echo consult placed: ------ Allergy: LISINOPRIL (Nov 09, 2007) ------ ----- Medications ------ Active Outpatient Medications (excluding Supplie s): Outpatient Medications Status 1) ACCU-CHEK GUIDE (GLUCOSE) TEST STRIP USE 1 ST RIP ACTIVE (S) TOPICALLY EVERY DAY TO CHECK BLOOD SUGAR--USE [...] METOPROLOL SUCCINATE 200MG SA TAB TAKE ONE-H FCI ACTIVE TABLET BY MOUTH EVERY DAY FOR [...] TS CLAW ACTIVE MOUTH 19 Total Medications Education IDENTIFIED LEARNING NEEDS/TOPIC: PARTICIPANTS: [x] Patient over the phone [] Family/Significant other [] Other caregiver (specify): OBJECTIVES/CONTENT: 1. Patient understands type of procedure to be p erformed 2. Patient correctly states date and time of clay ts 3. Patient understands he will be able to go [place] after procedure with responsible transit driver 4. Patient understands he needs to have nothing to eat or drink after midnight the night before his/her procedure and until aft er his procedure. 5. Patient understands to hold all diabetic medi cation on the day of procedure. 6. Patient understands to perform gentle scrub on chest from chin to nipples x ten minutes in shower night before procedure wit h sponge pad provided. EDUCATION SCREENING BARRIERS/SPECIAL NEEDS: (x)No Barriers Identified ()Cognitive Limitations ()Speech Limitations ()Visual Limitations ()Hearing Limitations ()Physical Limitations ()Financial Implications ()Lack of Support System ()Language other than Montserratian (specify): ()Literacy ()Other Need or Barrier (specify): ()Cultural/Bahai Beliefs that might influen ce learning/health care delivery. If present, specify beliefs and recom mended approach: TEACHING STRATEGY: (x)1:1 by intensive care unit nurse (x)Written/print materials: (x)Scrub/ablation mailed (x)Written preprocedure instructions- mailed (x)Contact numbers to call if any questions PATIENT/FAMILY RESPONSE (OUTCOME): (x)Demonstrates skill(s) safely and effectively (x)Verbalizes critical information about the to pic ()Incomplete learning ()No evidence of learning ()Unable to assess due to: FOLLOW UP RECOMMENDED: (x) None needed ()Reteach/ Reinforce/ Repeat demonstration ()Other: READINESS TO LEARN [x] No Barriers [] Denial of need for education [] Lack of Support System [] Severe Illness [] Pain [] Lack of Interest [] Not motivated - seems disinterested, uncooper ative [] Attention span - limited, confused, distracti ble [] Lethargic/sedated/fatigued [] Not able to assess 10/29/21 Dear Mr. Crouch, Your PVI ablation and Generator change for your Defibrillator procedure is scheduled on 11/29/2021. Please follow the instructions below: General Instructions: * DO NOT EAT OR DRINK anything after midnight th e night before, and on the morning of your ablation procedures. * The night before your procedure, gently scrub your chest from chin to nipples for ten minutes while in the shower w ith the sponge pad provided. Medication Instructions: * HOLD your APIXABAN for 12hours prior to proced ure 11/29/21. Your LAST DOSE will be the morning of 11/28/21. DO N OT TAKE evening dose on 11/28/21. DO NOT TAKE the APIXABAN morning of your procedure . * HOLD all your DIABETIC medications (METFORMIN, GLIPIZIDE) the morning of your procedure 11/29/21. * HOLD your METOPROLOL for 24hours prior to proc edure on 11/29/21. Your LAST DOSE WILL BE on 11/27/21. DO NOT TAKE any dos es on 11/28/21 and 11/29/21. You may take the rest of your medications with a sip of water Instructions for Pre- Procedures on 11/29/2021: Do not eat or drink anything after midnight prio r to your procedures. Begin your appointments at 6:30 AM as follows: Blood Draw (BA-117) Basement, then go to Cardiology Holding Room ([id number]) on third floor In our Cardiology Holding Room is where we will prep you for your procedure. You will be put to sleep by anesthesia f or the procedure, which takes about 4- 6 hours. You will be monitored after the procedu re 2-4 hours and will be able to go home with a responsible transit driver. You will a lso need someone to stay with you overnight. Education & Information: You will be on light d uty for ten days after your procedure for proper groin healing. This means no lifting more than ten pounds and not too much bending. If you have any questions, call SYED Begum, . For after hour questions or concerns, call . /es/ OBEY PENNINGTON RN REGISTERED NURSE Signed: 10/29/2021 13:02
--- OUTSIDE RECORDS SUMMARY | 2022-04-02 16:16 | XMS_ITS | Encounter Summary ---
:[address] [facility] Address [address] [place] [id number] Care Team Providers Name Role Phone WILLA [...] MEDICARE MEDICARE PART Jun 25, PART B [id number] Saumya QUINONES PATIENT (WNR) (M) B 2011 78A 0 AVID MEDICARE MEDICARE PART Sep 25, PART A [id number] Saumya QUINONES PATIENT (WNR) (M) A 2009 78A 0 AVID MEDICARE MEDICARE PART Sep 25, PART A [id number] Saumya MICHELE (WNR) (M) A 2009 78A [id number] AVID MEDICARE MEDICARE PART Sep 25, PART B [id number] Saumya MICHELE (WNR) (M) B 2009 78A [id number] AVID Selected Encounter This section includes the information on record at [place] for the Encounter. Date/Time Encounter Type Encounter Reason Provider Source Description Aug 10, 2021 HC PRO PHONE TELEPHONE PRIMARY ICD-10-CM E11.9 JETT SAMS 10:30 AM CALL 11-20 MIN CARE Type 2 diabetes AN L mellitus without complications with Provider Comments: Type 2 diabetes mellitus ([facility] [id number]) IHE Encounter Template Text not used by [place] Assessments - Encounter Diagnoses This section includes the primary and secondary diagnoses documented for the Encounter. Date/Time Primary/Secondary Diagnosis Name Provider Source Diagnosis Aug 10, 2021 PRIMARY Type 2 diabetes EJTT SAMS [facility] 10:30 AM mellitus without AN L [facility] complications Plan of Treatment: Future Appointments (+ 6 months) and Future Tests (+/- 45 days) The Plan of Treatment section includes future care activities for the patient from all [place] treatmentfacilities. This section includes future appointments and future orders which are active, pending orscheduled.Future Appointments This section includes appointments that were scheduled to occur 6 months from the date of the Encounter, up to a maximum of 20 appointments. The data comes from all [place] treatment facilities. Appointment Date/Time Appointment Type Appointment Facili ty Name Sep 14, 2021 09:00 AM AMBULATORY - NONE [facility] Sep 21, 2021 09:45 AM AMBULATORY - MEDICINE [facility] Sep 21, 2021 10:00 AM AMBULATORY - MEDICINE [facility] Sep 21, 2021 10:30 AM AMBULATORY - MEDICINE [facility] Sep 21, 2021 11:00 AM AMBULATORY - MEDICINE [facility] Sep 21, 2021 11:30 AM AMBULATORY - MEDICINE [facility] Oct 12, 2021 09:30 AM AMBULATORY - NONE [facility] Nov 02, 2021 08:42 PM AMBULATORY - MEDICINE [facility] Nov 05, 2021 11:30 AM AMBULATORY - MEDICINE [facility] Nov 09, 2021 09:30 AM AMBULATORY - NONE [facility] Nov 19, 2021 12:45 PM AMBULATORY - MEDICINE [facility] Nov 21, 2021 10:00 AM AMBULATORY - SURGERY [facility] Nov 29, 2021 06:30 AM AMBULATORY - NONE [facility] Nov 29, 2021 07:30 AM AMBULATORY - MEDICINE [facility] Nov 29, 2021 08:00 AM AMBULATORY - MEDICINE [facility] Dec 21, 2021 09:30 AM AMBULATORY - NONE [facility] January 07, 2022 01:30 PM AMBULATORY - MEDICINE [facility] CS Feb 05, 2022 07:00 AM AMBULATORY - NONE [facility] Feb 07, 2022 09:30 AM AMBULATORY - NONE [facility] Active, Pending, and Scheduled Orders This section includes a listing of several types of active, pending, and scheduled orders, including clinic medications orders, diagnostic test orders, procedure orders and consult orders; where the start date of the order is 45 days before the date of the Encounter or 45 days after the date of the Encounter. The data comes from all [place] treatment facilities. Test Date/Time Test Type Test Details Facility Name Jul 26, 2021 09:16 AM Pharmacy - Clinic Infusion [facility] Order Social History: Smoking Status (Most current) and [...] [facility] DECLINE Tobacco Use History This section includes a history of the smoking, or tobacco- related health factors, that were collected on or before the date of the Encounter. The data comes from the [place] facility where the Encounter took place. 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 Jun 09, 2018 03:48 PM VA-TOBACCO USE WI 30 MIN OF WAKEUP [facility] Jun 09, 2018 03:48 PM VA-TOBACCO USER EVERY DAY [facility] Jun 20, 2017 07:53 AM CURRENT TOBACCO USER [facility] Jun 19, 2016 08:41 AM [...] document. The data comes from all [facility]. Date Advance Directives Provider Source Mar [...] the Encounter. The data comes from all [place] treatment facilities. Date/Time Radiology Report Provider Source Jul 26, 2021 09:06 AM US RIGHT UPPER QUADRANT (P): LAMBERT DHILLON [facility] PAUL MICHELE [id number] -1945 M Exm Date: JUL 26, 2021@09:06 Req Phys: SAKSHI CROUCH Loc: [facility] PACT CLOUD 4E (Req'g Loc) Img Loc: Ultrasound Imaging Service: Unknown (Case [id number] COMPLETE) US ECHOGRAM ABDOMEN LTD (US Detailed) CPT:77807 Proc Modifiers : RIGHT Reason for Study: Chronic thrombocytopenia Clinical History: IS NOT under investigation for COVID-19 or is COVID-19 negative Look for any evident cirrhosis Responsible prov ider name and phone number to notify for critical findings if other than user placing the order and pager listed below: User placing orders pager: [phone] LAST CREATININE 1.3 H (06/18/21) Report Status: Verified Date Reported: JUL 26, 2021 Date Verified: JUL 26, 2021 Commercial Sales Manager E-Sig:/ES/JOSE DHILLON MD Report: EXAM: Right upper [...] I, JOSE DHILLON, have reviewed the images and report. Primary Interpreting Staff: JOSE DHILLON MD, RADIOLOGIST (Commercial Sales Manager) Primary Interpreting Resident: KIMBERLY GOODSON DO, ROAD BUILDER /NVP Encounter Notes: All associated encounter notes This section contains the clinical notes associated to the Encounter. Date/Time Encounter Note(s) Provider Source Aug 10, 2021 10:41 AM PHARMACY NOTE: JAYY SAMS [facility] LOCAL TITLE: PHARMACOTHERAPY-CLINICAL PHARMACY NOTE STANDARD TITLE: PHARMACY NOTE DATE OF NOTE: AUG 10, 2021@10:41 ENTRY DATE: AUG 10, 2021@10:41:33 AUTHOR: JAYY SAMS EXP COSIGNER: URGENCY: STATUS: COMPLETED PAUL MICHELE is a 76 YO MALE followed by [facility] for medication management. SUBJECTIVE: [place] reports he thinks his BG have been highe r because of the sweets he is eating. He is having multiple sweets per day. He will have candy bars before bed. He isn't getting as much physical a ctivity in every day. He doesn't think any of that will change until after the holiday. He denies any missed doses. ROS: (-) hypoglycemia symptoms (-) hyperglycemia symptoms (-) chest pain (-) muscle pain/cramps (-) hypotension symptoms (-) HTN symptoms Blood Glucose Summary: 05:00-11:30 11:30-16:00 16:00-18:30 18:30-23:0 0 23:00-05:00 Average 159 148 High 257 176 Low 103 107 Blood Glucose Readings: Date 05:00-11:30 11:30-16:00 16:00-18:30 18:30- 23:00 23:00-05:00 08/09/21 176(04:53) 08/08/21 189(05:11) 08/07/21 158(05:33) 08/06/21 205(09:52) 08/04/21 164(04:57) 08/03/21 212(07:53) 257(07:52) 08/02/21 146(04:20) 08/01/21 174(05:32) 07/31/21 141(05:42) 07/30/21 145(03:45) 07/29/21 174(07:26) 07/28/21 189(07:21) 07/27/21 173(05:17) 07/26/21 107(02:52) 07/25/21 171(07:11) 07/24/21 152(06:56) 07/23/21 142(06:40) 07/22/21 109(07:00) 07/21/21 130(05:24) 07/20/21 162(06:20) 07/19/21 153(06:39) 07/18/21 103(06:33) 07/17/21 127(06:40) 07/16/21 158(06:54) 07/15/21 144(07:23) 07/14/21 145(05:38) 07/13/21 130(06:09) 07/12/21 120(06:05) reports confusion regarding his new inha ler. He couldn't get the medication to produce any mi st. He had tried it a few times without success. He was able to get the inhaler to work during the c all. Pt reported exacerbations in past 12 months: 0 COPD-related ED visits/hospitalizations in past 12 months: 0 COPD Assessment Test (CAT Questionnaire) No Yes 0 [1] 2 3 4 5 I cough all the time 0 [1] 2 3 4 5 My chest is full of phlegm (mucus) [0] 1 2 3 4 5 My chest feels tight 0 [1] 2 3 4 5 When I walk up a hill or one fligh t of stairs I am breathless 0 [1] 2 3 4 5 I am very [...] TIMES OF THE DAY OR DIRECTED 2) APIXABAN 5MG TAB TAKE ONE TABLET BY MOUTH SAMI RY 12 ACTIVE HOURS TO PREVENT BLOOD CLOTS, STROKE 3) ATORVASTATIN CALCIUM 80MG TAB TAKE ONE-HALF T ABLET BY ACTIVE (S) MOUTH AT BEDTIME FOR CHOLESTEROL 4) EMPAGLIFLOZIN 25MG TAB TAKE ONE TABLET BY FLORY TH EVERY ACTIVE DAY *confirms* 5) FUROSEMIDE 40MG TAB TAKE ONE TABLET BY MOUTH EVERY ACTIVE DAY 6) GABAPENTIN 300MG CAP TAKE TWO CAPSULES BY FLORY TH THREE ACTIVE TIMES A DAY FOR LEG PAIN 7) GLIPIZIDE 10MG TAB TAKE TWO TABLETS BY MOUTH TWICE A ACTIVE DAY TAKE 30 MINUTES BEFORE MEAL FOR DIABETES *confirms* 8) METFORMIN HCL 1000MG TAB TAKE ONE TABLET BY M OUTH TWO ACTIVE TIMES A DAY FOR DIABETES *confirms* 9) METOPROLOL SUCCINATE 100MG SA TAB TAKE ONE-COLLADO LF ACTIVE TABLET BY MOUTH EVERY DAY FOR HEART 10) NITROGLYCERIN 0.4MG SL TAB DISSOLVE ONE TABL ET UNDER ACTIVE THE TONGUE ONCE FOR CHEST PAIN * MAY REPEAT SAMI RY 5 MINUTES--NO MORE THAN 3 TOTAL 11) OLODATEROL/TIOTROP 2.5MCG/ACTUAT 60D INH INH COLE 2 ACTIVE PUFFS BY INHALATION EVERY DAY TO PREVENT TROUBL E BREATHING 12) SACUBITRIL 24MG/VALSARTAN 26MG TAB TAKE 1 TA BLET BY ACTIVE MOUTH TWICE A DAY FOR HEART FAILURE 13) SEMAGLUTIDE 1MG/0.75ML INJ PEN 3ML INJECT 1M G UNDER ACTIVE THE SKIN EVERY WEEK FOR DIABETES -REFRIGERATE -MULTIPLE DOSES PER PEN *confirms* Active Non-VA Medications Status 1) Non-VA ASCORBIC ACID 500MG TAB 1000MG EVERY D AY ACTIVE 2) Non-VA MARINE LIPID (FISH OIL) CAP,ORAL MOUTH ACTIVE 3) Non-VA MULTIVITAMINS CAP/TAB MOUTH ACTIVE 4) Non-VA NON VA MED NOT LISTED MISCELLANEOUS CA TS CLAW ACTIVE MOUTH 17 Total Medications Adherence to medications: OBJECTIVE: ALLERGIES/ADR: LISINOPRIL (Nov 09, 2007) Vitals: Temperature: 98.6 F [37.0 C] (06/20/2021 09:36) Blood Pressure: 114/79 (06/20/2021 09:36) Pulse: 88 (06/20/2021 09:36) Respiration: 18 (06/20/2021 09:36) Pain: 1 (06/20/2021 09:36) Height: 73 in [185.4 cm] (06/18/2021 12:53) Weight: 230.4 lb [104.7 kg] (06/20/2021 09:36) BMI: 30.5 LABS: Basic Metabolic Panel SODIUM 142 (06/18/21) POTASSIUM 4.0 (06/18/21) CREATININE 1.3 H (06/18/21) UREA NITROGEN 15 (06/18/21) GLUCOSE 205 H (06/18/21) CO2 26 (06/18/21) CHLORIDE 106 (06/18/21) ESTIMATED GFR(eGFR) 54 L (06/18/21) MAGNESIUM 2.2 (06/18/21) Collection DT Specimen Test Name Result Units Re f Range 06/18/2021 11:52 PLASMA CREATININE 1.3 H mg/dL 0 .7 - 1.2 06/18/2021 11:50 PLASMA CREATININE 1.3 H mg/dL 0 .7 - 1.2 03/23/2021 05:30 PLASMA!! CREATININE 1.3 H mg/dL 0.7 - 1.2 06/18/2021 11:52 PLASMA ESTIMATED GFR(eGF 54 L R ef: >= 60 06/18/2021 11:50 PLASMA ESTIMATED GFR(eGF 54 L R ef: >= 60 03/23/2021 05:30 PLASMA!! ESTIMATED GFR(eGF 54 L Ref: >= 60 CHOLESTEROL 166 (10/27/20) MEASURED LDL____ LDL CALCULATION 76 (10/27/20) HDL 63 (10/27/20) TRIGLYCERIDE____ Collection DT Spec HGBA1C 06/18/2021 11:52 BLOOD 8.6 H 02/19/2021 12:03 BLOOD 10.0 H 10/27/2020 09:36 BLOOD 9.5 H Collection DT Specimen Test Name Result [...] <8% (FBG 80-160, PPG <210) per VA/DoD dian vargas. Last A1C above goal, however, has improved. Recent SMBG with significant worsening. Secondary to changes to diet and reduced physical activity . [place] does not plan on changing those things until after holidays. Reviewed next steps would be insulin glargine if BG remain above goal. No changes at this time. #COPD [place] hadn't started Oloda terol/tiotropium. 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 Will use yulia y. No changes to therapy at this time. PLAN: - No changes to medications - Increase physical activity - Reduce sugary snacks #Disease-Specific Med Rec: Completed today #Labs: A1C in ~ Aug/sep --- - Educated vet on indication/risks/benefits of n ew/changed medication. - Education provided on therapeutic nonpharmacol ogic management to achieve goals. - Vet advised of recent labs. - [place] verbalized understanding to all plans discussed today. Questions were answered to vet's satisfaction. --- Time spent: () 5-10 minutes (x) 11-20 minutes () 21-30 minutes RTC: 09/14@09:00 /billy/ JAYY SAMS Pharmacist Signed: 08/10/2021 14:02
--- OUTSIDE RECORDS SUMMARY | 2022-04-02 16:16 | XMS_ITS | Encounter Summary ---
:1945 Author Organization [facility] Address [address] [place] [address] Support Name Relationship Address Phone NIDIA MICHELE Unavailable [phone] [place] [address] NIDIA MICHELE Unavailable [address] [place] [address] Insurance Providers: All historical and current Section [...] MEDICARE MEDICARE PART Jun 25, PART B [id number] Saumya QUINONES PATIENT (WNR) (M) B 2011 78A 0 AVID MEDICARE MEDICARE PART Sep 25, PART A [id number] Saumya QUINONES PATIENT (WNR) (M) A 2009 78A 0 AVID MEDICARE MEDICARE PART Sep 25, PART A [id number] Saumya MICHELE (WNR) (M) A 2009 78A [id number] AVID MEDICARE MEDICARE PART Sep 25, PART B [id number] Saumya MICHELE (WNR) (M) B 2009 78A [id number] AVID Selected Encounter This section includes the information on record at [place] for the Encounter. Date/Time Encounter Type Encounter Description Reason Provider Source Sep 25, 2021 03:21 Outpatient Encounter TELEPHONE TRIAGE PM IHE Encounter [...] from all [facility]. Appointment Date/Time Appointment Type Appointment Facili ty Name Oct 12, 2021 09:30 AM AMBULATORY - NONE [facility] Nov 02, 2021 08:42 PM AMBULATORY - MEDICINE [facility] Nov 05, 2021 11:30 AM AMBULATORY - MEDICINE [facility] Nov 09, 2021 09:30 AM AMBULATORY - NONE [facility] Nov 19, 2021 12:45 PM AMBULATORY - MEDICINE [facility] Nov 21, 2021 10:00 AM AMBULATORY - SURGERY [facility] Nov 29, 2021 06:30 AM AMBULATORY - NONE [facility] Nov 29, 2021 07:30 AM AMBULATORY - MEDICINE [facility] Nov 29, 2021 08:00 AM AMBULATORY - MEDICINE [facility] Dec 21, 2021 09:30 AM AMBULATORY - NONE [facility] January 07, 2022 01:30 PM AMBULATORY - MEDICINE [facility] Feb 05, 2022 07:00 AM AMBULATORY - NONE [facility] Feb 07, 2022 09:30 AM AMBULATORY - NONE [facility] Feb 13, 2022 10:00 AM AMBULATORY - NONE [facility] Mar 21, 2022 09:30 AM AMBULATORY - NONE [facility] Active, Pending, and Scheduled [...] from all [facility]. Test Date/Time Test Type Test Details Facility Name Sep 25, 2021 03:21 PM Pharmacy - Clinic Infusion [facility] Order Lab Results: +/- 30 days [...] Reference Range Comment Sep 21, 2021 08:58 [facility] BASIC METABOLIC Specimen Type: PLASMA AM PANEL+MG No comment enter ed. Ordering Provid er: TUCKER JULIAN Report Released Date/Time: Sep 21, 2021 08:58 AM Reporting Lab: [facility] [id number] Performing Lab: [facility] [id number] CREATININE 1.3 H 0.7-1.2 UREA NITROGEN 15 8-26 GLUCOSE 173 H 74-100 SODIUM 142 136-145 POTASSIUM 4.0 3.5-5.1 CHLORIDE 107 98-107 CO2 29 22-29 CALCIUM 9.6 8.4-10.2 MAGNESIUM 2.0 1.6-2.6 ANION GAP 6 5-15 ESTIMATED GFR(eGFR) 54 L >60 Sep 21, 2021 08:55 AM [facility] HEMOGLOBIN A1C Specim en Type: BLOOD No comment enter ed. 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 LITHOGRAPHIC NO [facility] Nov 15, 2020 10:00 AM VA-TOBACCO USE MED NO [place] [facility] Nov 15, 2020 10:00 AM VA-TOBACCO USER EVERY DAY [facility] Jun 21, 2019 02:29 PM VA-TOBACCO USE 30 YEARS OR MORE [facility] Jun 21, 2019 02:29 PM VA-TOBACCO USE ADVICE [place] [facility] Jun 21, 2019 02:29 PM VA-TOBACCO USE 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 APPRENTICE LITHOGRAPHIC NO [facility] Jun 21, 2019 [...] 03:48 PM VA-TOBACCO USE ADVICE [place] [facility] Jun 09, 2018 03:48 PM VA-TOBACCO USE 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 APPRENTICE LITHOGRAPHIC NO [facility] Jun 09, 2018 03:48 PM VA-TOBACCO USE MED NO [place] [facility] Jun 09, 2018 03:48 PM VA-TOBACCO USE WI 30 MIN OF WAKEUP [facility] Jun 09, 2018 03:48 PM VA-TOBACCO USER EVERY DAY [facility] Jun 20, 2017 07:53 AM CURRENT [facility]ACCO USER [facility] Jun 19, 2016 08:41 AM CURRENT TOBACCO USER [facility] Jun 21, 2015 08:15 AM CURRENT TOBACCO USER [facility] Mar 22, 2014 10:03 AM CURRENT TOBACCO USER [facility] Mar 25, 2013 11:01 AM CURRENT TOBACCO USER [facility] Feb 05, 2012 08:55 AM CURRENT TOBACCO USER [facility] January 01, 2011 09:26 AM CURRENT TOBACCO USER [facility] Mar 07, 2010 10:02 AM CURRENT TOBACCO USER [facility] Feb 21, 2009 08:17 AM CURRENT TOBACCO USER [facility] Nov 06, 2007 10:02 AM CURRENT TOBACCO USER [facility] January 02, 2007 10:33 AM CURRENT TOBACCO USER [facility] Advance Directives: All historical and [...] Mar 06, 2005 ADVANCE DIRECTIVE GANESH RODRIGUEZ [facility] Encounter Notes: All associated encounter notes This section contains the clinical notes associated to the Encounter. Date/Time Encounter Note(s) Provider Source Sep 25, 2021 03:21 PM REPORT OF CONTACT: CHARISSE HILL [facility] LOCAL TITLE: PATIENT CONTACT NOTE STANDARD TITLE: REPORT OF CONTACT DATE OF NOTE: SEP 25, 2021@15:21 ENTRY DATE: SEP 25, 2021@15:21:36 AUTHOR: CHARISSE HILL EXP COSIGNER: URGENCY: STATUS: COMPLETED PATIENT CONTACT NOTE Has ADDENDA Patient contact Name of : PAUL MICHELE Name/Relationship of Contact if other than Veter an: Arti from [facility] Date & Time of Contact: Sep@15:22 Type of Contact: Telephone Reason for Contact: Arti from [facility] requesting return call for orders. Thank you. Phone number verified as correct. Arti from [facility] /billy/ Charisse Hill [facility] [employer] [facility] Signed: 09/25/2021 15:23 Receipt Acknowledged By: 09/26/2021 16:16 /billy/ EMERSON SKAGGS RN REGISTERED NURSE 09/26/2021 ADDENDUM STATUS: COMPLETED Called and spoke with Ti colin from [facility]. Informed her the plan of care for period from: 06/08/21 To: 08/06/21 was signed and faxed to their listed # on 09/20/2021. /billy/ EMERSON SKAGGS RN REGISTERED NURSE Signed: 09/26/2021 16:21
--- OUTSIDE RECORDS SUMMARY | 2022-04-02 16:16 | XMS_ITS | Encounter Summary ---
:1945 Author Organization [facility] Address [address] [place] [id number] Care Team Providers Name Role Phone WILLA [...] MEDICARE MEDICARE PART Jun 25, PART B [id number] Saumya QUINONES PATIENT (WNR) (M) B 2011 [id number] 0 AVID MEDICARE MEDICARE PART Sep 25, PART A [id number] Saumya QUINONES PATIENT (WNR) (M) A 2009 [id number] 0 AVID MEDICARE MEDICARE PART Sep 25, PART A [id number] Saumya MICHELE (WNR) (M) A 2009 78A [id number] AVID MEDICARE MEDICARE PART Sep 25, PART B [id number] Saumya MICHELE (WNR) (M) B 2009 78A [id number] AVID Selected Encounter This section includes the information on record at [place] for the Encounter. Date/Time Encounter Type Encounter Reason Provider Source Description Sep 21, 2021 INTERROG DEVICE CIED DEVICES ICD-10-CM Z95.810 Sofia BRADFORD ANDR 10:30 AM EVAL HEART Presence of A L automatic (implantable) cardiac defibrillator with Provider Comments: Cardiac defibrillator in situ ([facility] [id number]) IHE Encounter Template Text not used by [place] Assessments - Encounter Diagnoses This section includes the primary and secondary diagnoses documented for the Encounter. Date/Time Primary/Secondary Diagnosis Name Provider Source Diagnosis Sep 21, 2021 PRIMARY Presence of GREGORY BRADFORD [place] 10:27 AM automatic A L HCS (implantable) cardiac defibrillator Sep 21, 2021 SECONDARY Other persistent GREGORY BRADFORD [place] 10:27 AM atrial A L HCS fibrillation Plan of Treatment: Future Appointments (+ 6 months) and Future Tests (+/- 45 days) The Plan of Treatment section includes future care activities for the patient [facility]. This section includes future appointments and future orders which are active, pending orscheduled.Future Appointments This section includes appointments that were scheduled to occur 6 months from the date of the Encounter, up to a maximum of 20 appointments. The data comes from all [place] treatment facilities. Appointment Date/Time Appointment Type Appointment Facili ty Name Oct 12, 2021 09:30 AM AMBULATORY - NONE [facility] Nov 02, 2021 08:42 PM AMBULATORY - MEDICINE [facility] Nov 05, 2021 11:30 AM AMBULATORY - MEDICINE [facility] Nov 09, 2021 09:30 AM AMBULATORY - NONE [facility] Nov 19, 2021 12:45 PM AMBULATORY - MEDICINE [facility] Nov 21, 2021 10:00 AM AMBULATORY - SURGERY [facility] Nov 29, 2021 06:30 AM AMBULATORY - NONE [facility] Nov 29, 2021 07:30 AM AMBULATORY - MEDICINE [facility] Nov 29, 2021 08:00 AM AMBULATORY - MEDICINE [facility] Dec 21, 2021 09:30 AM AMBULATORY - NONE [facility] January 07, 2022 01:30 PM AMBULATORY - MEDICINE [facility] Feb 05, 2022 07:00 AM AMBULATORY [...] the Encounter. The data comes from all [place] treatment facilities. Test Date/Time Test Type Test Details Facility Name Sep 25, 2021 03:21 PM Pharmacy - Clinic Infusion [facility] Order Lab Results: +/- 30 days of the encounter This section includes the Chemistry and Hematology Lab Results on record with [place] for the patient. Radiology Reports and Pathology Reports are provided separately, in subsequent sections.Lab Results This section contains the Chemistry/Hematology Results that were resulted 30 days before or 30 daysafter the date of the Encounter. Date/Time Source Result Type Result - Unit Interpretation Reference Range Comment Sep 21, 2021 08:58 [facility] BASIC METABOLIC Specimen Type: PLASMA AM PANEL+MG No comment enter ed. Ordering Provid er: TUCKER JULIAN Report Released Date/Time: Sep 21, 2021 08:58 AM Reporting Lab: [facility] [id number] Performing Lab: [facility] [id number] CREATININE 1.3 mg/dL H 0.7-1.2 UREA NITROGEN 15 mg/dL 8-26 GLUCOSE 173 mg/dL H 74-100 SODIUM 142 mmol/L 136-145 POTASSIUM 4.0 mmol/L 3.5-5.1 CHLORIDE 107 mmol/L 98-107 CO2 29 mmol/L 22-29 CALCIUM 9.6 mg/dL 8.4-10.2 MAGNESIUM 2.0 mg/dL 1.6-2.6 ANION GAP 6 mmol/L 5-15 ESTIMATED GFR(eGFR) 54 L >60 Sep 21, 2021 08:55 AM [facility] HEMOGLOBIN A1C Specim en Type: BLOOD No comment enter ed. Ordering Provid er: JAYY SAMS Report Released Date/Time: Sep 14, 2021 11:24 AM Reporting Lab: [facility] [id number] Performing Lab: [facility] [id number] HEMOGLOBIN A1C 8.5 H 4.0-6.0 Vital Signs: All taken on the encounter date This section contains inpatient and outpatient Vital Signs collected on the date of the Encounter. Date/Time Temperature Pulse Blood Respiratory SP02 Pain Height Weight Axel dy Source Pressure Rate Mass Index Sep 21, 97.5 F 76 123/75 18 /min 98 % 0 73.5 in 223.7 29 [place] P 2021 09:49 /min mm[Hg] lb [facility] Social History: Smoking Status (Most current) and Tobacco Use (All prior to encounter date) This section includes the most current, and the historical, smoking and tobacco-related health factors from the [place] facility where the Encounter took place.Current Smoking Status This section includes the most current smoking, or tobacco-related health factor, from the [place] facility where the Encounter took place. Date/Time Current Smoking Status Comment Facility Mar 20, 2021 11:21 AM VA-VAAES TOBACCO USE CURRENT NRT [facility] DECLINE Tobacco Use History This section includes a history of the smoking, or tobacco- related health factors, that were collected on or before the date of the Encounter. The data comes from the [place] facility where the Encounter took place. Date/Time Smoking Status/Tobacco Use Comment [facility] it Nov 15, 2020 10:00 AM VA-TOBACCO DOESNT USE WI 30 MIN [facility] WAKEUP Nov 15, 2020 10:00 AM VA-TOBACCO USE 30 YEARS OR MORE [facility] Nov 15, 2020 10:00 AM VA-TOBACCO USE ADVICE [place] [facility] Nov 15, 2020 10:00 AM VA-TOBACCO USE SANDBLAST CARVER NO [facility] Nov 15, 2020 10:00 AM VA-TOBACCO USE MED NO [place] [facility] Nov 15, 2020 10:00 AM VA-TOBACCO USER EVERY DAY [facility] Jun 21, 2019 02:29 PM VA-TOBACCO USE 30 YEARS OR MORE [facility] Jun 21, 2019 02:29 PM VA-TOBACCO USE ADVICE [place] [facility] Jun 21, 2019 02:29 PM VA-TOBACCO USE SANDBLAST CARVER NO [facility] Jun 21, 2019 02:29 [...] Jun 09, 2018 03:48 PM VA-TOBACCO USE SANDBLAST CARVER NO [facility] Jun 09, 2018 03:48 PM VA-TOBACCO USE MED NO [place] [facility] Jun 09, 2018 03:48 PM VA-TOBACCO USE WI 30 MIN OF WAKEUP [facility] Jun 09, 2018 03:48 PM VA-TOBACCO USER EVERY DAY [facility] Jun 20, 2017 07:53 AM CURRENT TOBACCO USER [facility] Jun 19, 2016 08:41 AM CURRENT [...] ALL of a patient's completed or amended [place] Advance and Rescinded Directives. The entries below indicate that a directive exists for the patient, but an actual copy is not included with this document. The data comes from all [place] facilities. Date Advance Directives Provider Source Mar 06, 2005 ADVANCE DIRECTIVE MICHAELGANESH [facility] Encounter Notes: All associated encounter notes This section contains the clinical notes associated to the Encounter. 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: [employer] Model: Protecta Single Chamber Incision check performed Site: clean, dry, intact, without sign or sympt oms of infection Programmed Therapy: VF> 188 bpm atp during lashanda ging then shocks Device will deliver therapies for rates > 188 Luis Armando Parameters: VVI Lower Rate/Upper Rate: 40/ Mode Switch: On Battery Voltage: 2.62 Last Charge Time: 16.4sec onds Sensing Threshold - (R) Ventricle: 7.6 mV Pacing Threshold - (R) Ventricle: 0.75 V @ 0.4 ms Lead Impedance - (R) Ventricle: 475 ohms Shockin ohms Percent Paced - Ventricle: 0.5 % Pacer Dependent at VVI 30 bpm: No Ventricle Episodes: 11 NST VT since 02/19/21. Ep isode on 03/30 with shock delivered. Patient seen at OSH. 2 VT-NS episodes since 03/30. Most recent 07/19 at 2145. An 8 beat run at 226bpm. Histograms show heart rates >110bpm 8-10% of lola e. Patient on AC. Last ECHO 07/25/2021 EF 20%. Patie nt to see EP PA today. Mode Switch Episodes: na Comment: All measurements WNL's. Histograms karen w good heart rate variation. Device is close to triggering ANJANA. Discu ssed generator change process and what will take place. Patient verbalized ne gTamera Reprogrammed: No Remote monitoring with: Carelink Discussed: Continuous communication with device confirmed Comment: Return to clinic: 1 year Analysis by: Jenae Bradford RN Device report sent to scanning. Will be viewabl e via vista imaging once scanned. Patient enrolled in remote monitoring. Data avai lable via [place] National Cardiac Device Surveillance System. Abnormal remote chec ks documented in CPRS. For questions call /es/ SANDI BRADFORD RN REGISTERED NURSE Signed: 09/21/2021 10:27
--- OUTSIDE RECORDS SUMMARY | 2022-04-02 16:16 | XMS_ITS | Encounter Summary ---
:1945 Author Organization Department [facility] Address [address] [place] [id number] Care Team Providers Name Role Phone SAKSHI [...] MEDICARE MEDICARE PART Jun 25, PART B [id number] Saumya QUINONES PATIENT (WNR) (M) B 2011 78A 0 AVID MEDICARE MEDICARE PART Sep 25, PART A [id number] Saumya QUINONES PATIENT (WNR) (M) A 2009 [id number] 0 AVID MEDICARE MEDICARE PART Sep 25, PART A [id number] Saumya MICHELE (WNR) (M) A 2009 78A [id number] AVID MEDICARE MEDICARE PART Sep 25, PART B [id number] Saumya MICHELE (WNR) (M) B [id number] 78A [id number] AVID Selected Encounter This section includes the information on record at [place] for the Encounter. Date/Time Encounter Type Encounter Reason Provider Source Description Jul 30, 2021 HC PRO PHONE TELEPHONE PRIMARY ICD-10-CM ELOISE WILBURN 08:57 AM CALL 11-20 MIN CARE I50.22 Chronic systolic (congestive) heart failure with Provider Comments: Chronic systolic heart failure ([facility] [id number]) IHE Encounter Template Text not used by [facility] Assessments - Encounter Diagnoses This section includes the primary and secondary diagnoses documented for the Encounter. Date/Time Primary/Secondary Diagnosis Name Provider Source Diagnosis Jul 30, 2021 PRIMARY Chronic ELOISE WILBURN [facility] 08:57 AM systolic HCS (congestive) heart failure Plan of Treatment: Future Appointments (+ 6 months) and Future Tests (+/- 45 days) The Plan of Treatment section includes future care activities for the patient from all [place] treatmentfacilities. This section includes future appointments and future orders which are active, pending orscheduled.Future Appointments This section includes appointments that were scheduled to occur 6 months from the date of the Encounter, up to a maximum of 20 appointments. The data comes from all [place] treatment facilities. Appointment Date/Time Appointment Type Appointment Facili ty Name Aug 03, 2021 10:46 AM AMBULATORY - MEDICINE [facility] Aug 08, 2021 07:00 AM AMBULATORY - NONE [facility] Aug 10, 2021 10:30 AM AMBULATORY - NONE [facility] Sep 14, 2021 09:00 AM AMBULATORY - NONE [facility] Sep 21, 2021 09:45 AM AMBULATORY - MEDICINE [facility] Sep 21, 2021 10:00 AM AMBULATORY - MEDICINE [facility] Sep 21, 2021 10:30 AM AMBULATORY - MEDICINE [facility] Sep 21, 2021 11:00 AM AMBULATORY - MEDICINE [facility] Sep 21, 2021 11:30 AM AMBULATORY - MEDICINE [facility] Oct 12, 2021 09:30 AM AMBULATORY - NONE [facility] Nov 02, 2021 08:42 PM AMBULATORY - MEDICINE [facility] Nov 05, 2021 11:30 AM [facility] Nov 09, 2021 09:30 AM AMBULATORY - NONE [facility] Nov 19, 2021 12:45 PM AMBULATORY - MEDICINE [facility] Nov 21, 2021 10:00 AM AMBULATORY - SURGERY [facility] Nov 29, 2021 06:30 AM AMBULATORY - NONE [facility] Nov 29, 2021 07:30 AM AMBULATORY - MEDICINE [facility] Nov 29, 2021 08:00 AM AMBULATORY - MEDICINE [facility] Dec 21, 2021 09:30 AM AMBULATORY - NONE [facility] January 07, 2022 01:30 PM AMBULATORY - MEDICINE [facility] Active, Pending, and Scheduled Orders This section includes a listing of several types of active, pending, and scheduled orders, including clinic medications orders, diagnostic test orders, procedure orders and consult orders; where the start date of the order is 45 days before the date of the Encounter or 45 days after the date of the Encounter. The data comes from all [place] treatment facilities. 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 [facility] Jun 21, 2019 02:29 [...] 2018 03:48 PM [facility]ACCO [facility]VICE [facility] Jun 09, 2018 03:48 PM VA-TOBACCO USE 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 The data comes from all [facility]. Date Advance Directives Provider Source Mar 06, [...] the Encounter. The data comes from all [place] treatment facilities. Date/Time Radiology Report Provider Source Jul 26, 2021 09:06 AM US RIGHT UPPER QUADRANT (P): LAMBERT DHILLON [facility] PAUL MICHELE [id number] -1945 M Exm Date: JUL 26, 2021@09:06 Req Phys: CROUCHSAKSHI SIDHU Loc: [facility] PACT CLOUD 4E (Req'g Loc) Img Loc: Ultrasound Imaging Service: Unknown (Case 2006 COMPLETE) US ECHOGRAM ABDOMEN LTD (US Detailed) CPT:45814 Proc Modifiers : RIGHT Reason for Study: Chronic thrombocytopenia Clinical History: IS NOT under investigation for COVID-19 or is COVID-19 negative Look for any evident cirrhosis Responsible prov ider name and phone number to notify for critical findings if other than user placing the order and pager listed below: User placing orders pager: [phone] LAST CREATININE 1.3 H (06/18/21) Report Status: Verified Date Reported: JUL 26, 2021 Date Verified: JUL 26, 2021 Learning Developer E-Sig:/ES/JOSE DHILLON MD Report: EXAM: Right upper [...] Primary Interpreting Staff: JOSE DHILLON MD, RADIOLOGIST (Learning Developer) Primary Interpreting Resident: KIMBERLY GOODSON DO, TRACK REPAIR SUPERVISOR /NVP Encounter Notes: All associated encounter notes This section contains the clinical notes associated to the Encounter. Date/Time Encounter Note(s) Provider Source Jul 30, 2021 08:57 AM CARE COORDINATION HOME TELEHEALTH FOLL OW-UP NOTE: ELOISE WILBURN [facility] LOCAL TITLE: HT INTERVENTION NOTE STANDARD TITLE: CARE COORDINATION HOME TELEHEALT H FOLLOW-UP NOTE DATE OF NOTE: JUL 30, 2021@08:57 ENTRY DATE: JUL 30, 2021@08:57:23 AUTHOR: ELOISE WILBURN EXP COSIGNER: URGENCY: STATUS: COMPLETED is actively enrolled in the Home Telehea lth program. Review of data shows the following out of range responses: wt increase Measurements: Patient Name: PAUL MICHELE Disease(s): CHF Date Range: 07/24/2021-07/30/2021 [place] Average Report Sys/Aracely BP-HR Weight BG Average 111/81 90 224.6 159 High 129/96 93 226.0 189 Low 102/65 84 222.5 107 [place] Vitals Report Reading Date Sys/Aracely BP-HR Weight BG 07/30/21 08:10 104/85 84 07/30/21 03:45 145 07/30/21 08:26 226.0 07/29/21 07:26 174 07/28/21 07:21 189 07/27/21 07:51 129/96 91 07/27/21 05:17 173 07/27/21 07:52 224.5 07/26/21 02:52 107 07/25/21 08:14 108/79 92 07/25/21 07:11 171 07/25/21 08:20 225.5 07/24/21 11:16 102/65 93 07/24/21 06:56 152 07/24/21 11:19 222.5 Assessment: -- denies s/s of fluid retention. Reports it could be his diet..over eating this time of year Heart Failure/CAD: Shortness of breath...............None Edema.............................None Dizziness.........................None Chest pain/palpitations...........None Cough (productive/nonproductive)..None Fatigue...........................None Abdominal distension..............None Increased urination...............No Decreased urination...............No Other............................. Intervention(s)/Plan: --No med adjustments today. sounds good , denies s/s will continue to f/u DISEASE SPECIFIC INTERVENTIONS: Cardiac: Educated on HF symptoms (when to seek medical a ttention/when to call care coordination or healthcare team) Reviewed importance of medication compliance/re port any medication concerns Educated patient on obtaining a dry weight (upo n arising, after urination, before eating and drinking, similar clothing) Reviewed with patient parameters for fluid rest riction 2 liters Educated patient on sodium restriction 2 grams Reviewed with patient hidden sodium without chris bee a salt shaker/avoid foods and beverages high in sodium Coached patient on eating healthy foods that ar e low in salt and fat Reviewed with patient to check BP 2 hours after taking medication and sitting quietly for 5-10 minutes Advised to repeat vital signs when [id number] l ranges and/or not feeling well Provided support and Encouragement Encouraged to report health concerns and/or see k medical attention if needed PROGRESS TOWARDS GOAL(S): No progress toward goals. TYPE OF ENCOUNTER: Telephone Length of call: 21-30 minutes /billy/ Eloise Wilburn RN Ht It Teacher Signed: 07/30/2021 09:03
--- OUTSIDE RECORDS SUMMARY | 2022-04-02 16:16 | XMS_ITS | Encounter Summary ---
:1945 Author Organization [facility] Address [address] [place] [address] Support Name Relationship Address Phone NIDIA MICHELE Unavailable [address] [place] [phone] NIDIA MICHELE Unavailable [address] [place] [phone] Insurance Providers: All historical and current Section [...] MEDICARE MEDICARE PART Jun 25, PART B [id number] Saumya QUINONES PATIENT (WNR) (M) B 2011 78A 0 AVID MEDICARE MEDICARE PART Sep 25, PART A [id number] Saumya QUINONES PATIENT (WNR) (M) A 2009 78A 0 AVID MEDICARE MEDICARE PART Sep 25, PART A [id number] Saumya MICHELE ATIENT (WNR) (M) A 2009 78A [id number] AVID MEDICARE MEDICARE PART Sep 25, PART B [id number] Saumya MICHELE ATTHOMAS (WNR) (M) B 2009 78A [id number] AVID Selected Encounter This section includes the information on record at [place] for the Encounter. Date/Time Encounter Type Encounter Reason Provider Source Description Sep 21, 2021 OFFICE O/P EST CARDIOLOGY ICD-10-CM I48.19 TUCKER JULIAN 11:00 AM HI 40-54 MIN Other persistent N atrial fibrillation with Provider Comments: Persistent atrial fibrillation ([facility] [id number]) IHE Encounter Template Text not used by [place] Assessments - Encounter Diagnoses This section includes the primary and secondary diagnoses documented for the Encounter. Date/Time Primary/Secondary Diagnosis Name Provider Source Diagnosis Sep 21, 2021 PRIMARY Other persistent GLAUSERTUCKER [facility] 04:17 PM atrial N HCS fibrillation Sep 21, 2021 SECONDARY Presence of MICHELEUSETUCKER Briceno [facility] 04:17 PM automatic N HCS (implantable) cardiac defibrillator Plan of Treatment: Future Appointments (+ 6 months) and Future Tests (+/- 45 days) The Plan of Treatment section includes future care activities for the [place] [facility] [place] [facility] This section includes future appointments [...] 12, 2021 09:30 AM AMBULATORY - NONE [facility] Nov 02, 2021 08:42 PM AMBULATORY - MEDICINE [facility] Nov 05, 2021 11:30 AM AMBULATORY - MEDICINE [facility] Nov 09, 2021 09:30 AM AMBULATORY - NONE [facility] Nov 19, 2021 12:45 PM AMBULATORY - MEDICINE [facility] Nov 21, 2021 10:00 AM AM[facility]UL[facility]ERY [facility] Nov 29, 2021 06:30 AM AMBULATORY - NONE [facility] Nov 29, 2021 07:30 AM AMBULATORY - MEDICINE [facility] Nov 29, 2021 08:00 AM AMBULATORY - MEDICINE [facility] Dec 21, 2021 09:30 AM AMBULATORY - NONE [facility] January 07, 2022 01:30 PM AMBULATORY - MEDICINE [facility] Feb 05, 2022 07:00 AM AMBULATORY - NONE [facility] Feb 07, 2022 09:30 AM AMBULATORY - NONE [facility] Feb 13, 2022 10:00 AM AMBULATORY - NONE [facility] Mar 21, 2022 09:30 AM AMBULATORY - NONE [facility] Active, Pending, and Scheduled Orders This [...] data comes from all [place] treatment facilities. Test Date/Time Test Type Test Details Facility Name Sep 25, 2021 03:21 PM Pharmacy - Clinic Infusion [facility] Order Lab Results: +/- 30 days [...] Reference Range Comment Sep 21, 2021 08:58 [facility] BASIC METABOLIC Specimen Type: PLASMA AM PANEL+MG No comment enter ed. Ordering Provid er: TUCKER JULIAN Report Released Date/Time: Sep 21, 2021 08:58 AM Reporting Lab: [facility] [id number] Performing Lab: [facility] [id number] CREATININE 1.3 H 0.7-1.2 UREA NITROGEN 15 8-26 GLUCOSE 173 H 74-100 SODIUM 142 136-145 POTASSIUM 4.0 3.5-5.1 CHLORIDE 107 98-107 CO2 29 22-29 CALCIUM 9.6 8.4-10.2 MAGNESIUM 2.0 1.6-2.6 ANION GAP 6 5-15 ESTIMATED GFR(eGFR) 54 L >60 Sep 21, 2021 08:55 AM [facility] HEMOGLOBIN A1C Specim en Type: BLOOD No comment enter ed. Ordering Provid er: JAYY SAMS Report Released Date/Time: Sep 14, 2021 11:24 AM Reporting Lab: [facility] [id number] Performing Lab: [facility] [id number] HEMOGLOBIN A1C 8.5 H 4.0-6.0 Vital Signs: [...] P 2021 09:49 /min mm[Hg] lb [facility] Social History: Smoking Status (Most current) [...] took place. Date/Time Current Smoking Status Comment [facility] Mar 20, 2021 11:21 AM VA-VAAES TOBACCO USE CURRENT NRT [facility] DECLINE Tobacco Use History This section includes a history of the smoking, or tobacco- related health factors, that were collected on or before the date of the Encounter. The data comes from the [place] facility where the Encounter took place. 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 [facility] Nov 15, 2020 10:00 AM VA-TOBACCO USE MED NO [facility] Nov 15, 2020 10:00 AM VA-TOBACCO USER EVERY DAY [facility] Jun 21, 2019 02:29 PM VA-TOBACCO USE 30 YEARS OR MORE [facility] Jun 21, 2019 02:29 PM VA-TOBACCO USE ADVICE [facility] Jun 21, 2019 02:29 PM 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 [facility] Jun 21, 2019 02:29 PM VA-TOBACCO USE MED NO [facility] Jun 21, 2019 02:29 PM VA-TOBACCO USE WI 30 MIN OF WAKEUP [facility] Jun 21, 2019 02:29 PM VA-TOBACCO USER EVERY DAY [facility] Jun 09, 2018 03:48 PM VA-TOBACCO USE 30 YEARS OR MORE [facility] Jun 09, 2018 03:48 PM VA-TOBACCO USE ADVICE [facility] Jun 09, 2018 03:48 PM 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 [facility] Jun 09, 2018 03:48 PM VA-TOBACCO USE MED NO [facility] Jun 09, 2018 03:48 PM VA-TOBACCO USE WI 30 MIN OF WAKEUP [facility] Jun 09, 2018 03:48 PM VA-TOBACCO USER EVERY DAY [facility] Jun 20, 2017 07:53 AM CURRENT TOBACCO USER [facility] Jun 19, 2016 08:41 AM CURRENT TOBACCO USER [facility] Jun 21, 2015 08:15 AM CURRENT TOBACCO USER [facility] Mar 22, 2014 10:03 AM CURRENT [facility]ACCO [facility]ER [facility] Mar 25, 2013 11:01 AM CURRENT TOBACCO USER [facility] Feb 05, 2012 08:55 AM CURRENT TOBACCO USER [facility] January 01, 2011 09:26 AM [...] Mar 06, 2005 ADVANCE DIRECTIVE GANESH RODRIGUEZ [facility] Encounter Notes: All associated encounter notes This section contains the clinical notes associated to the Encounter. Date/Time Encounter Note(s) Provider Source Sep 21, 2021 10:43 AM CARDIOLOGY DIAGNOSTIC STUDY NOTE: TUCKER JULIAN [facility] LOCAL TITLE: CARDIOLOGY ELECTROPHYSIOLOGY NOTE STANDARD TITLE: CARDIOLOGY DIAGNOSTIC STUDY NOTE DATE OF NOTE: SEP 21, 2021@10:43 ENTRY DATE: SEP 21, 2021@10:43:54 AUTHOR: TUCKER JULIAN EXP COSIGNER: URGENCY: STATUS: COMPLETED CARDIOLOGY ELECTROPHYSIOLOGY NOTE Has ADDEN DA CARDIAC ELECTROPHYSIOLOGY CLINIC NOTE CC: F/U atrial fibrillation HPI: Patient is a 76 year-old male with PMH incl uding DM2, HTN, COPD, tobacco use, CAD s/p CA with angioplasty to RCA in 1993, s/p [...] was discontinued due to concern for pro-arrhythmia. He presents to EP clinic bria shin for f/u. EKG today shows sinus rhythm with PVCs. He reports doing well - melissa es current palpitations, dyspnea on exertion, chest pain/pressure, lightheadedne ss, dizziness, presyncope, syncope, orthopnea, PND, or LE edema. PAST MEDICAL HISTORY Active problems - Computerized Problem List is t he source for the followin. Status post left inguinal hernia repair 2. Chronic low back pain 3. Thrombocytopenia (SNOMED CT [id number]) 4. Chronic obstructive pulmonary disease ([facility] D [facility] [id number]) - FEV1/FVC (05/2011) 2.47/3.46. FEV1 58% pred. FEV1% 70. 5. History of adenomatous polyp of colon ([facility] D CT [id number]) 6. Type 2 diabetes mellitus 7. Hypertension 8. Coronary artery disease - S/P inferior CA in 1993. - S/P atherectomy RCA in [...] systolic function is severely reduced. The visua lly estimated LV ejection fraction is 20%. There [...] patient for comparison purposes. -Latest EKG (01/17/21): SR with PVCs 78 bpm ALLERGIES LISINOPRIL (Nov 09, 2007) FACILITY ALLERGY/ADR -------- No Remote Allergy/ADR Data available for this [facility] LISINOPRIL MEDICATIONS Active and Recently Outpatient Medicatio [...] A DAY FOR DIABETES 10) METOPROLOL SUCCINATE 100MG SA TAB TAKE ONE-H OSWALD ACTIVE TABLET [...] COMMENTS AVAILABLE...Refer to Inter im Lab Report. VITALS Temp: 97.5 F [36.4 C] (09/21/2021 09:49) Pulse:76 (09/21/2021 09:49) BP: 123/75 (09/21/2021 09:49) Resp: 18 (09/21/2021 09:49) Weight: 223.7 lb [101.7 kg] (09/21/2021 09:49) Pain: 0 (09/21/2021 09:49) O2 Sat: 98% (09/21/2021 09:49) BMI: 29.2 EXAM GA: very pleasant, well-appearing, NAD; LUNGS: CTAB, no crackles, wheezes, or rhonchi CV: RRR; no murmurs, rubs, or gallops; no JVD EXT: no cyanosis, clubbing, or edema ASSESSMENT/PLAN 1. H/O persistent atrial fibrillation: S /P dofetilide loading with 250 mcg bid (borderline renal function) and successful DCCV February 2021 - dofetilide discontinued March 2021 after ICD shock for VT with concern about dofetilide proarrhythmia. EKG today shows sinus rhythm. ICD is single chamber but no e/o AFib episodes recently on that. -He is interested in PVI for custodial treatment of AFib - will discuss with Dr. Figueroa -CHADSVASC score is at least 5 (age, CHF, HTN, D M, CAD), on apixaban 5 mg bid with no bleeding concerns -Discussed lifestyle interve ntions for atrial fibrillation. He is not interested in USAMA evaluation. He drinks 2-3 alcohol ic drinks several times per week - not interested in cutting back. 2. 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 Garcia, on me dical therapy with metoprolol succinate, Entresto, emplagliflozin 3. Single-chamber ICD in place: Implante d 2011 for primary prevention, has had appropriate and inappropriat e shocks. Programmed VVI 40 with <1% V pacing. Lead measurements stable. 2 NSVT episodes since his I CD shock in March - most recently June 2021 with 8 beat run. Device b attery nearing [facility] - will discuss with Dr. Vivian odom about planning possible upgrade to dual chamber device to allow for AFib monitoring and discrimi nators to prevent future inappropriate shocks. 4. Tobacco use: Advised cessation, he rodríguez s no interest in quitting at this time 5. CAD: Denies angina, on medical therapy. 6. 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 Anirudh Wynn for PVC burden -Consider upgrade to DC-ICD at time of gen repla cement (soon) -F/U 1 month I spent a total of 45 minutes between preparat ion, review of testing, discussion with patient and documentation of enc ounter /billy/ TUCKER JULIAN PA-C PHYSICIAN PARTY PLAN SALESPERSON Signed: 09/21/2021 16:17 09/26/2021 ADDENDUM STATUS: COMPLETED Discussed with Dr. Jayde evans who is in agreement with plan for PVI and will also plan ICD generator replacement and atrial lead addition at the same time, with possible PVC ablation concurrently if having frequent PVCs. Will increase patient's metoprolol succinate dose to 1 00 mg daily to prevent significant RVR if atrial fibrillation recurs. For EP coordinator: -Please arrange for PVI/ICD generator replacemen t/upgrade to dual chamber ICD (Medtronic)/possible PVC ablation next available , no later than 4-6 weeks -Patient is on anticoagulation with apixaban -Patient is diabetic -Patient has no known antibiotic allergies /es/ TUCKER JULIAN PA-C PHYSICIAN PARTY PLAN SALESPERSON Signed: 09/26/2021 14:13 Receipt Acknowledged By: * AWAITING SIGNATURE * FEI AGUILAR * AWAITING SIGNATURE * PAT FIGUEROA Sep 21, 2021 09:51 AM INTERNAL MEDICINE OUTPATIENT NOTE: GLORIA MARIE [facility] LOCAL TITLE: MEDICINE CLINIC NURSING NOTE STANDARD TITLE: INTERNAL MEDICINE OUTPATIENT NOT E DATE OF NOTE: SEP 21, 2021@09:51 ENTRY DATE: SEP 21, 2021@09:52:01 AUTHOR: GLORIA MARIE EXP COSIGNER: JOSIAH GUIDRY URGENCY: STATUS: COMPLETED TYPE OF VISIT: Appointment Check In Type of appointment: In-person appointment REASON FOR VISIT: scheduled visit ALLERGIES: LISINOPRIL (Nov 09, 2007) VITAL SIGNS: Blood Pressure: 123/75 (09/21/2021 09:49) Pulse: 76 (09/21/2021 09:49) Respiration: 18 (09/21/2021 09:49) Temperature: 97.5 F [36.4 C] (09/21/2021 09:49) Weight: 223.7 lb [101.7 kg] (09/21/2021 09:49) Height: 73.5 in [186.7 cm] (09/21/2021 09:49) BMI: 29.2 O2 Sat: 98% (09/21/2021 09:49) Pain: 0 (09/21/2021 09:49) PAIN SCREEN: Patient is not having significant pain that the y wish to discuss with their provider today. MEDICATION Over the Counter/Herbal Medications: The patient states that they take some outside medications and/or herbals. /es/ GLORIA MARIE NURSE STUDENT Signed: 09/21/2021 09:53 /es/ JAREK GUIDRY RN Cosigned: 09/21/2021 10:23
--- OUTSIDE RECORDS SUMMARY | 2022-04-02 16:16 | XMS_ITS | Encounter Summary ---
:1945 Author Organization [facility] Address [address] [place] [id number] Care Team Providers Name Role Phone WILLA [...] MEDICARE MEDICARE PART Jun 25, PART B [id number] Saumya QUINONES PATIENT (WNR) (M) B 2011 78A 0 AVID MEDICARE MEDICARE PART Sep 25, PART A [id number] Saumya QUINONES PATIENT (WNR) (M) A 2009 78A 0 AVID MEDICARE MEDICARE PART Sep 25, PART A [id number] Saumya MICHELE (WNR) (M) A 2009 78A [id number] AVID MEDICARE MEDICARE PART Sep 25, PART B [id number] Saumya MICHELE (WNR) (M) B 2009 78A [id number] AVID Selected Encounter This section includes the information on record at [place] for the Encounter. Date/Time Encounter Type Encounter Reason Provider Source Description Aug 03, 2021 DEV INTERROG CIED DEVICES ICD-10-CM Z95.810 RIZWAN BRADFORD 01:25 PM REMOTE 1/2/CONTENT EDITOR Presence of A L automatic (implantable) cardiac defibrillator with Provider Comments: Cardiac defibrillator in situ ([facility] [id number]) IHE Encounter Template Text not used by [place] Assessments - Encounter Diagnoses This section includes the primary and secondary diagnoses documented for the Encounter. Date/Time Primary/Secondary Diagnosis Name Provider Source Diagnosis Aug 03, 2021 PRIMARY Presence of GREGORY BRADFORD [place] 01:30 PM automatic A L HCS (implantable) cardiac defibrillator Aug 03, 2021 SECONDARY Chronic systolic GREGORY BRADFORD [place] 01:30 PM (congestive) heart A L HCS failure Plan of Treatment: Future Appointments (+ 6 months) and Future Tests (+/- 45 days) The Plan of Treatment section includes future care activities for the patient from all [place] treatmentfacilities. This section includes future appointments and [...] AMBULATORY - NONE [facility] Aug 10, 2021 10:30 AM AMBULATORY - NONE [facility] Sep 14, 2021 09:00 AM AMBULATORY - NONE [facility] Sep 21, 2021 09:45 AM AMBULATORY - MEDICINE [facility] Sep 21, 2021 10:00 AM AMBULATORY - MEDICINE [facility] Sep 21, 2021 10:30 AM AMBULATORY - MEDICINE [facility] Sep 21, 2021 11:00 AM AMBULATORY - MEDICINE [facility] Sep 21, 2021 11:30 AM AMBULATORY - MEDICINE [facility] Oct 12, 2021 09:30 AM AMBULATORY - NONE [facility] Nov 02, 2021 08:42 PM AMBULATORY - MEDICINE [facility] Nov 05, 2021 11:30 AM AMBULATORY - MEDICINE [facility] Nov 09, 2021 09:30 AM AMBULATORY - NONE [facility] Nov 19, 2021 12:45 PM AMBULATORY - MEDICINE [facility] Nov 21, 2021 10:00 AM AMBULATORY - SURGERY [facility] Nov 29, 2021 06:30 AM AMBULATORY - NONE [facility] Nov 29, 2021 07:30 AM AM[facility]ULATORY - MEDICINE [facility] Nov 29, 2021 08:00 AM AMBULATORY - MEDICINE [facility] Dec 21, 2021 09:30 AM AMBULATORY - NONE [facility] January 07, 2022 01:30 PM AMBULATORY - MEDICINE [facility] Active, Pending, and Scheduled Orders This [...] 2021 09:16 AM Pharmacy - Clinic Infusion [facility] Order Social History: Smoking Status (Most current) [...] 11:21 AM VA-VAAES TOBACCO USE CURRENT NRT [facility] DECLINE Tobacco Use History This section includes a history of the smoking, or tobacco- related health factors, that were collected on or before the date of the Encounter. The data comes from the [place] facility where the Encounter took place. 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 [facility] Nov 15, 2020 10:00 AM VA-TOBACCO USE MED NO [place] [facility] Nov 15, 2020 10:00 AM VA-TOBACCO USER EVERY DAY [facility] Jun 21, 2019 02:29 PM VA-TOBACCO USE 30 YEARS OR MORE [facility] Jun 21, 2019 02:29 PM VA-TOBACCO USE ADVICE [place] [facility] Jun 21, 2019 02:29 PM 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 [facility] Jun 21, 2019 02:29 PM VA-TOBACCO USE MED NO [place] [facility] Jun 21, 2019 02:29 PM VA-TOBACCO USE WI 30 MIN OF WAKEUP [facility] Jun 21, 2019 02:29 PM VA-TOBACCO USER EVERY DAY [facility] Jun 09, 2018 03:48 PM VA-TOBACCO USE 30 YEARS OR MORE [facility] Jun 09, 2018 03:48 PM VA-TOBACCO USE ADVICE [facility] Jun 09, 2018 03:48 PM 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 [facility] Jun 09, 2018 03:48 PM [facility]ACCO [facility] Jun 09, 2018 03:48 PM VA-TOBACCO [...] ADVANCE DIRECTIVE GANESH RODRIGUEZ [facility] Radiology Reports: +/- 30 days of [...] US RIGHT UPPER QUADRANT (P): LAMBERT DHILLON [facility] PAUL MICHELE [id number] -1945 M Exm Date: JUL 26, 2021@09:06 Req Phys: SAKSHI CROUCH Loc: [facility] PACT CLOUD 4E (Req'g Loc) Img Loc: Ultrasound Imaging Service: Unknown (Case 2006 COMPLETE) US ECHOGRAM ABDOMEN LTD (US Detailed) CPT:97659 Proc Modifiers : RIGHT Reason for Study: Chronic thrombocytopenia Clinical History: [place] IS NOT under investigation for COVID-19 or is COVID-19 negative Look for any evident cirrhosis Responsible prov ider name and phone number to notify for critical findings if other than user placing the order and pager listed below: User placing orders pager: [phone] LAST CREATININE 1.3 H (06/18/21) Report Status: Verified Date Reported: JUL 26, 2021 Date Verified: JUL 26, 2021 [employer] E-Sig:/ES/JOSE DHILLON MD Report: EXAM: Right upper [...] Primary Interpreting Staff: JOSE DHILLON MD, RADIOLOGIST ([employer]) Primary Interpreting Resident: KIMBERLY GOODSON DO, PATIENT PARTNER /NVP Encounter Notes: All associated encounter notes This section contains the clinical notes associated to the Encounter. Date/Time Encounter Note(s) Provider Source Aug 03, 2021 01:25 PM CARDIOLOGY DIAGNOSTIC STUDY NOTE: SANDI BRADFORD [facility] LOCAL TITLE: CARDIOLOGY ELECTROPHYSIOLOGY NOTE STANDARD TITLE: CARDIOLOGY DIAGNOSTIC STUDY NOTE DATE OF NOTE: AUG 03, 2021@13:25 ENTRY DATE: AUG 03, 2021@13:25:52 AUTHOR: SANDI BRADFORD EXP COSIGNER: URGENCY: STATUS: COMPLETED Patient's Medtronic single chamber ICD checked v ia [employer] [facility] ([facility]) comments: No significant abnormalities. 2 VT-NS. Battery voltage is 2.61 V (SHOE POLISHER =2.63 V), but patient alert has not been triggered yet [facility]'s comments: Remote received shows batter y voltage at 2.61V(ANJANA 2.63V) but alert has not triggered yet. Will monitor. 2 NSVT episodes. Longest 3 seconds and most rece nt 07/19/21 with a rate of 226bpm. No symptoms reported. Per SOP no consult needed. Report available via [employer] imaging. Indication: Active Outpatient Medications (including Supplie s): Active [...] TABLET BY FLORY TH EVERY ACTIVE DAY 5) FUROSEMIDE 40MG TAB TAKE ONE TABLET BY MOUTH EVERY ACTIVE DAY 6) GABAPENTIN 300MG CAP TAKE TWO CAPSULES BY FLORY TH THREE ACTIVE TIMES A DAY FOR LEG PAIN 7) GLIPIZIDE 10MG TAB TAKE TWO TABLETS BY MOUTH TWICE A ACTIVE DAY TAKE 30 MINUTES BEFORE MEAL FOR DIABETES 8) METFORMIN HCL 1000MG TAB TAKE ONE TABLET BY M OUTH TWO ACTIVE TIMES A DAY FOR DIABETES 9) METOPROLOL SUCCINATE 100MG SA TAB TAKE [...] FOR DIABETES -REFRIGERATE -MULTIPLE DOSES PER PEN Active Non-VA Medications Status 1) Non-VA ASCORBIC ACID 500MG TAB 1000MG EVERY D AY ACTIVE 2) Non-VA MARINE LIPID (FISH OIL) CAP,ORAL MOUTH ACTIVE 3) Non-VA MULTIVITAMINS CAP/TAB MOUTH ACTIVE 4) Non-VA NON VA MED NOT LISTED MISCELLANEOUS CA TS CLAW ACTIVE MOUTH 17 Total Medications Next Remote: Next EP device: /billy/ SANDI BRADFORD RN REGISTERED NURSE Signed: 08/03/2021 13:30
--- OUTSIDE RECORDS SUMMARY | 2022-04-02 16:16 | XMS_ITS | Encounter Summary ---
:1945 Author Organization [facility] Address [address] [place], [place] [address] Care Team Providers Name Role Phone SAKSHI [...] MEDICARE MEDICARE PART Jun 25, PART B [id number] Saumya QUINONES PATIENT (WNR) (M) B 2011 78A 0 AVID MEDICARE MEDICARE PART Sep 25, PART A [id number] Saumya QUINONES PATIENT (WNR) (M) A 2009 78A 0 AVID MEDICARE MEDICARE PART Sep 25, PART A [id number] Saumya MICHELE (WNR) (M) A 2009 78A [id number] AVID MEDICARE MEDICARE PART Sep 25, PART B [id number] Saumya MICHELE (WNR) (M) B 2009 78A [id number] AVID Selected Encounter This section includes the information on record at [place] for the Encounter. Date/Time Encounter Type Encounter Reason Provider Source Description Jul 26, 2021 INJ PERFLUTREN CARDIAC ECHO ICD-10-CM COLEMAN LYNN 09:00 AM JOMAR HICKMAN I50.22 Chronic systolic (congestive) heart failure with Provider Comments: Chronic systolic heart failure ([facility] [id number]) IHE Encounter Template Text not used by [facility] Assessments - Encounter Diagnoses This section includes the primary and secondary diagnoses documented for the Encounter. Date/Time Primary/Secondary Diagnosis Name Provider Source Diagnosis Jul 26, 2021 PRIMARY Chronic systolic FLO [facility] 09:35 AM (congestive) heart C HCS failure Jul 26, 2021 SECONDARY Other persistent FLO [facility] 09:35 AM atrial C HCS fibrillation Plan of Treatment: Future Appointments (+ 6 months) and Future Tests (+/- 45 days) The Plan of Treatment section includes future care activities for the patient from all [place] treatmentfacilities. This section includes future appointments and [...] 2021 10:46 AM AMBULATORY - MEDICINE [facility] Aug 08, 2021 07:00 AM AMBULATORY - NONE [facility] Aug 10, 2021 10:30 AM AMBULATORY - NONE [facility] Sep 14, 2021 09:00 AM AMBULATORY - NONE [facility] Sep 21, 2021 09:45 AM AMBULATORY - MEDICINE [facility] Sep 21, 2021 10:00 AM AMBULATORY - MEDICINE [facility] Sep 21, 2021 10:30 AM AMBULATORY - MEDICINE [facility] Sep 21, 2021 11:00 AM AMBULATORY - MEDICINE [facility] Sep 21, 2021 11:30 AM AMBULATORY - MEDICINE [facility] Oct 12, 2021 09:30 AM AMBULATORY - NONE [facility] Nov 02, 2021 08:42 PM AMBULATORY - MEDICINE [facility] Nov 05, 2021 11:30 AM AMBULATORY - MEDICINE [facility] Nov 09, 2021 09:30 AM AMBULATORY - NONE [facility] Nov 19, 2021 12:45 PM AMBULATORY - MEDICINE [facility] Nov 21, 2021 10:00 AM AMBULATORY - SURGERY [facility] Nov 29, 2021 06:30 AM AMBULATORY - NONE [facility] Nov 29, 2021 07:30 AM AMBULATORY - MEDICINE [facility] Nov 29, 2021 08:00 AM AMBULATORY - MEDICINE [facility] Dec 21, 2021 09:30 AM AMBULATORY - NONE [facility] January 07, 2022 01:30 PM AMBULATORY - MEDICINE [facility] Active, Pending, and Scheduled Orders This [...] 2021 09:16 AM Pharmacy - Clinic Infusion [facility] Order Social History: Smoking Status (Most current) [...] USE CURRENT NRT [facility] DECLINE Tobacco Use History This section includes [...] Nov 15, 2020 10:00 AM VA-TOBACCO USE PATIENT COORDINATOR FRONT DESK NO [facility] Nov 15, 2020 10:00 AM VA-TOBACCO USE MED NO [place] [facility] Nov 15, 2020 10:00 AM VA-TOBACCO USER EVERY DAY [facility] Jun 21, 2019 02:29 PM VA-TOBACCO USE 30 YEARS OR MORE [facility] Jun 21, 2019 02:29 PM [facility] Jun 21, 2019 02:29 PM VA-TOBACCO USE PATIENT COORDINATOR FRONT DESK NO [facility] Jun 21, 2019 [...] 2018 03:48 PM [facility] Jun 09, 2018 03:48 PM VA-TOBACCO USE PATIENT COORDINATOR FRONT DESK NO [facility] Jun 09, 2018 03:48 PM [facility]BACCO USE MED [facility] Jun 09, 2018 03:48 PM VA-TOBACCO USE WI 30 MIN OF LOWNDESUP [facility] Jun 09, 2018 03:48 PM VA-TOBACCO USER EVERY DAY [facility] Jun 20, 2017 07:53 AM CURRENT TOBACCO USER [facility] Jun 19, 2016 08:41 AM CURRENT TOBACCO USER [facility] Jun 21, 2015 08:15 AM CURRENT TOBACCO USER [facility] Mar 22, 2014 10:03 AM CURRENT TOBACCO USER [facility] Mar 25, 2013 11:01 AM CURRENT TOBACCO USER [facility] Feb 05, 2012 08:55 AM CURRENT TOBACCO USER [facility] January 01, 2011 09:26 AM CURRENT TOBACCO USER [facility] Mar 07, 2010 10:02 AM CURRENT TOBACCO USER [facility] Feb 21, 2009 08:17 AM CURRENT TOBACCO USER [facility] Nov 06, 2007 10:02 AM CURRENT TOBACCO USER [facility] January 02, 2007 10:33 AM CURRENT TOBACCO USER [facility] Advance Directives: All historical and [...] US RIGHT UPPER QUADRANT (P): LAMBERT DHILLON [facility] PAUL MICHELE [id number] -1945 M Exm Date: JUL 26, 2021@09:06 Req Phys: SAKSHI CROUCH Loc: [facility] PACT CLOUD 4E (Req'g Loc) Img Loc: Ultrasound Imaging Service: Unknown (Case 2006 COMPLETE) US ECHOGRAM ABDOMEN LTD (US Detailed) CPT:95629 Proc Modifiers : RIGHT Reason for Study: Chronic thrombocytopenia Clinical History: [place] IS NOT under investigation for COVID-19 or is COVID-19 negative Look for any evident cirrhosis Responsible prov ider name and phone number to notify for critical findings if other than user placing the order and pager listed below: User placing orders pager: [phone] LAST CREATININE 1.3 H (06/18/21) Report Status: Verified Date Reported: JUL 26, 2021 Date Verified: JUL 26, 2021 Electronic Maintenance Supervisor E-Sig:/ES/JOSE DHILLON MD Report: EXAM: Right upper [...] Primary Interpreting Staff: JOSE DHILLON MD, RADIOLOGIST (Electronic Maintenance Supervisor) Primary Interpreting Resident: KIMBERLY GOODSON DO, DRUM FILLER /NVP Encounter Notes: All associated encounter notes This section contains the clinical notes associated to the Encounter. Date/Time Encounter Note(s) Provider Source Jul 26, 2021 12:09 PM CARDIOLOGY PROCEDURE NOTE: [facility] LOCAL TITLE: ECHOCARDIOGRAM PROCEDURE STANDARD TITLE: CARDIOLOGY PROCEDURE NOTE DATE OF NOTE: JUL 26, 2021@12:09:06 ENTRY DATE: JUL 26, 2021@12:09:06 AUTHOR: CLINICAL,DEVICE PRO EXP COSIGNER: URGENCY: STATUS: COMPLETED PROCEDURE SUMMARY CODE: Machine Resulted DATE/TIME PERFORMED: JUL 26, 2021@09:05:5 DOCUMENT IN [facility] SEE FULL REPORT IN VISTA IMAGING SIGNATURE NOT REQUIRED SEE SIGNATURE IN VISTA IMAGING (XCELERA ISCV TTE OUTPT) AUTO-INSTRUMENT DIAG NOSIS Procedure: M_TTE Adult Release Status: Released Off-Line Verified Date Verified: Jul 26, 2021@12:08:42 Study ID: [id number] [employer] + + [place], [place] + + [facility] [address] [address] Transthoracic Echocardiogram Report + :Name: PAUL MICHELE Study Date: 07/26/2021 H eight: 75 in : : [facility] TIENTWeight: 224 lb: :: 1945 Gender: Male BSA: 2.3 m2 : :Age: 76 yrs : :CP Order Number: [id number] : :Reason For Study: Afib with low EF : + :Photocopying Equipment Repairer: Flo George RDCS : + :Referring Physician: VICENTE PELAEZ : + + Interpretation Summary A complete two-dimensional transthoracic echocar diogram (18895) was performed with contrast (Q9957). 1. The left ventricle is moderate to severely di lated. The left ventricular systolic function is severely reduced. The [facility] estimated LV ejection fraction is [...] study 12/11/11, LV systolic funciton is reduced. Procedure A complete two-dimensional transthoracic echocar diogram (18590) was performed with contrast (Q9957). Left Ventricle The left ventricle is moderate to severely dilat ed. The left ventricular wall thickness is mild to moderately increased. The l eft ventricular systolic function is severely reduced. The visual ly estimated ejection fraction is 20%. There is severe global hypokinesis of the left v entricle. Right Ventricle The right ventricle size is moderately e nlarged. There is a catheter/pacemaker lead seen in the right ventricular cavity. The r ight ventricular systolic function is moderately reduced. Left Atrium/Right Atrium/Atrial Septum The left atrium is moderately dilated. Mitral Valve Mild mitral annular calcification. There is mode rate mitral valve regurgitation. Tricuspid Valve Estimated RVSP is 25 + RA mmHg. There is trivial tricuspid regurgitation. Aortic Valve No aortic valvular regurgitation. Pulmonic Valve Mild pulmonic valvular regurgitation. Aorta The aortic root is normal in size. Normal ascend ing aorta. Pericardium/Pleural There is no pericardial effusion. Inferior Vena Cava/Hepatic Veins The inferior vena cava is normal in size, and rodríguez s <50% collapse with respiration. Estmiated RA pressure is 8 mmHg. + + :Measurements : :LA dimension: 6.4 cm(2.7-4.0 cm) LVIDd: 6.8 cm( 3.9-5.9 cm) : : : : :LVIDs: 6.5 cm(2.0-4.0 cm) IVSd: 1.5 cm(0.6-1.1 cm) : : : : :LVPWd: 1.3 cm(0.6-1.1 cm) TAPSE: 1.2 cm(>1.7) : : : : :EF(Teich): 8.5 %(52-74%) : + + MMode/2D Measurements \T\ Calculations FS: 3.8 % Ao root diam: 3.3 cm EDV(Teich): 238.4 ml ESV(Teich): 218.3 ml Asc Aorta diam: 3.5 cm LVOT diam: 2.3 cm LVLd ap4: 10.3 cm LVLd ap2: 10.8 cm EDV(MOD-sp4): 302.0 ml EDV(MOD-sp2): 309.0 ml LVLs ap4: 9.0 cm LVLs ap2: 9.4 cm ESV(MOD-sp4): 225.0 ml ESV(MOD-sp2): 247.0 ml EF(MOD-sp4): 25.5 % EF (MOD-bp): 23.3 % SV(MOD-sp4): 77.0 ml LAV (MOD-bp): 111.0 ml LAV Index (MOD-bp): 48.2 ml/m2 IVC Diam: 2.0 cm LA Length: 5.6 cm Doppler Measurements \T\ Calculations MV E max dominguez: 49.0 cm/sec MV dec slope: 260.7 cm /sec2 MV dec time: 0.19 sec Lat Peak E' Dominguez: 4.1 cm/sec Ao V2 max: 129.7 cm/ sec Lat E/e': 11.9 Ao max P.7 mmHg Med E/e': 7.8 Ao V2 mean: 89.2 cm/sec Med Peak E' Dominguez: 6.3 cm/sec Ao mean P.3 mmHg Ao V2 VTI: 23.6 cm ELADIO(I,D): 2.9 cm2 ELADIO(V,D): 3.3 cm2 LV V1 max P.3 mmHg SV(LVOT): 67.3 ml LV V1 mean P.0 mmHg LV V1 max: 103.0 cm/sec LV V1 mean: 67.4 cm/sec LV V1 VTI: 16.2 cm TR max dominguez: 252.0 cm/sec Dimensionless Index (DI ): 0.79 TR max P.0 mmHg ELADIO(VTI)/BSA: 1.2 RV S Dominguez: 7.2 cm/sec Ratio of MV Peak Velocity t o L: 11.9 Reading Physician:12:08 PM Administrative Closure: 07/26/2021 by: CLINICAL,DEVICE PROXY SERVICE Jul 26, 2021 08:58 AM NURSING INPATIENT NOTE: NAOMI MARCOS [place] [facility] LOCAL TITLE: [place] NURSING PROGRESS NOTE STANDARD TITLE: NURSING INPATIENT NOTE DATE OF NOTE: JUL 26, 2021@08:58 ENTRY DATE: JUL 26, 2021@08:58:22 AUTHOR: NAOMI MARCOS EXP COSIGNER: URGENCY: STATUS: COMPLETED SUBJECT: Perflutren Administration Note CONTRAINDICATIONS: Does patient have allergy or known hypersensitiv ity to Perflutren microspheres? No Does Patient have allergy or known hypersensitiv ity to polyethylene glycol (PEG) or products that contain PEG such a s colonoscopy bowel preparations and laxatives? No Patient was given an explanation of the indicati ons and potential side effects, patient indicates readiness to learn, v erbalizes understanding and consents to procedure. Yes Comment: BASELINE VITAL SIGNS: BP:123/78 HR: 73 Rhythm: O2 Sats: 95 RR: 20 Pain: No 0 Comment: IV ACCESS: IV Placed Comment: 22ga PIV placed in left hand 1.5ML ACTIVATED PERFLUTREN DILUTED IN 8.5ML OF 0 .9 NS SYRINGE: Amount administered IV: 0.5MLs Time administered: 0845 ADVERSE REACTIONS: No Comment: Action Taken: Not Applicable Comment: POST STUDY VITAL SIGNS: BP:110/73 HR: 74 Rhythm: O2 Sats: 98 RR: 18 Pain: 0 No Comment: IV REMOVED: Yes Comment: /billy/ NAOMI MARCOSGLAZIER SUPERVISOR NAOMI MARCOS RN BSN Signed: 07/26/2021 08:59
--- OUTSIDE RECORDS SUMMARY | 2022-04-02 16:16 | XMS_ITS | Encounter Summary ---
:1945 [address] [facility] Address [address] [place] [id number] Care Team Providers Name Role Phone HILL SAKSHI Primary Care Provider Unavailable Insurance Providers: [...] MEDICARE MEDICARE PART Jun 25, PART B [id number] Saumya QUINONES PATIENT (WNR) (M) B 2011 [id number] 0 AVID MEDICARE MEDICARE PART Sep 25, PART A [id number] Saumya QUINONES PATIENT (WNR) (M) A 2009 [id number] 0 AVID MEDICARE MEDICARE PART Sep 25, PART A [id number] Saumya MICHELE (WNR) (M) A 2009 78A [id number] AVID MEDICARE MEDICARE PART Sep 25, PART B [id number] Saumya MICHELE (WNR) (M) B 2009 78A [id number] AVID Selected Encounter This section includes the [place] for the Encounter. Date/Time Encounter Type Encounter Description Reason Provider Source Oct 02, 2021 11:35 Outpatient Encounter PRIMARY CARE/MEDICINE AM IHE Encounter Template Text not used by [place] Plan of Treatment: Future Appointments (+ 6 months) and Future Tests (+/- 45 days) The Plan of Treatment section includes future care activities for the patient [facility] [place] [facility] This section includes future appointments and future orders which are active, pending orscheduled.Future Appointments This section includes appointments that were scheduled to occur 6 months from the date of the Encounter, up to a maximum of 20 appointments. The data comes from all [facility]. Appointment Date/Time Appointment Type Appointment Facili ty Name Oct 12, 2021 09:30 AM AMBULATORY - NONE [facility] Nov 02, 2021 08:42 PM AMBULATORY - MEDICINE [facility] Nov 05, 2021 11:30 AM AMBULATORY - MEDICINE [facility] Nov 09, 2021 09:30 AM AMBULATORY - NONE [facility] Nov 19, 2021 12:45 PM AMBULATORY - MEDICINE [facility] Nov 21, 2021 10:00 AM AMBULATORY - SURGERY [facility] S Nov 29, 2021 06:30 AM AMBULATORY - NONE [facility] Nov 29, 2021 07:30 AM AMBULATORY - MEDICINE [facility] Nov 29, 2021 08:00 AM AMBULATORY - MEDICINE [facility] Dec 21, 2021 09:30 AM AMBULATORY - NONE [facility] January 07, 2022 01:30 PM AMBULATORY - MEDICINE [facility] Feb 05, 2022 07:00 AM AMBULATORY - NONE [facility] Feb 07, 2022 09:30 AM AMBULATORY - NONE [facility] Feb 13, 2022 10:00 AM AMBULATORY - NONE [facility] Mar 21, 2022 09:30 AM AMBULATORY - NONE [facility] Active, Pending, and Scheduled Orders This section includes a listing of several types of active, pending, and scheduled orders, including clinic medications orders, diagnostic test orders, procedure orders and consult orders; where the start date of the order is 45 days before the date of the Encounter or 45 days after the date of the Encounter. The data comes from all [facility]. Test Date/Time Test Type Test Details Facility Name Sep 25, 2021 03:21 PM Pharmacy - Clinic Infusion [facility] Order Lab Results: +/- 30 days [...] Reference Range Comment Sep 21, 2021 08:58 [facility] BASIC METABOLIC Specimen Type: PLASMA AM PANEL+MG No comment enter ed. Ordering Provid er: TUCKER JULIAN Report Released Date/Time: Sep 21, 2021 08:58 AM Reporting Lab: [facility] [address] [facility] [id number] Performing Lab: [facility] [address] [facility] [id number] CREATININE 1.3 mg/dL H 0.7-1.2 UREA NITROGEN 15 mg/dL 8-26 GLUCOSE 173 mg/dL H 74-100 SODIUM 142 mmol/L 136-145 POTASSIUM 4.0 mmol/L 3.5-5.1 CHLORIDE 107 mmol/L 98-107 CO2 29 mmol/L 22-29 CALCIUM 9.6 mg/dL 8.4-10.2 MAGNESIUM 2.0 mg/dL 1.6-2.6 ANION GAP 6 mmol/L 5-15 ESTIMATED GFR(eGFR) 54 L >60 Sep 21, 2021 08:[address] [facility] HEMOGLOBIN A1C Specim en Type: BLOOD No comment enter ed. Ordering Provid er: JAYY SAMS Report Released Date/Time: Sep 14, 2021 11:24 AM Reporting Lab: [facility] [address] [facility] [id number] Performing Lab: [facility] [id number] HEMOGLOBIN A1C 8.5 H 4.0-6.0 Social History: [...] Comment Facility [facility] CURRENT [facility] DECLINE Tobacco Use History This section includes a history of the smoking, or tobacco- related health factors, that were collected on or before the date of the Encounter. The data comes from the [place] facility where the Encounter took place. Date/Time Smoking Status/Tobacco Use Comment Facil ity Nov 15, 2020 10:00 AM VA-TOBACCO DOES[place] USE [place] [address] [facility] WAKEUP Nov 15, 2020 10:00 AM VA-TOBACCO USE [address] [facility] Nov 15, 2020 10:00 AM VA-TOBACCO USE ADVICE [facility] Nov 15, 2020 10:00 AM VA-TOBACCO USE HIM CLERK NO [facility] Nov 15, 2020 10:00 AM VA-TOBACCO USE MED NO [place] [facility] Nov 15, 2020 10:00 AM VA-TOBACCO USER EVERY DAY [facility] Jun 21, 2019 02:29 PM VA-TOBACCO USE [address] [facility] Jun 21, 2019 02:29 PM VA-TOBACCO USE ADVICE [facility] [facility] Jun 21, 2019 02:29 PM VA-TOBACCO USE HIM CLERK NO [facility] Jun 21, 2019 02:29 PM VA-TOBACCO USE MED NO [facility] [facility] Jun 21, 2019 02:29 PM VA-TOBACCO [place] [address] [facility] Jun 21, 2019 02:29 PM VA-TOBACCO USER EVERY DAY [facility] Jun 09, 2018 03:48 PM VA-TOBACCO USE [address] [facility] Jun 09, 2018 03:48 PM VA-TOBACCO USE ADVICE [facility] Jun 09, 2018 03:48 PM VA-TOBACCO USE HIM CLERK NO [facility] Jun 09, 2018 03:48 PM VA-TOBACCO USE MED NO [facility] Jun 09, 2018 03:48 PM VA-TOBACCO [place] [address] [facility] Jun 09, 2018 03:48 PM VA-TOBACCO USER EVERY DAY [facility] Jun 20, 2017 07:53 AM [facility] Jun 19, 2016 08:41 AM [facility] Jun 21, 2015 08:15 AM [facility] Mar 22, 2014 10:03 AM [facility] Mar 25, 2013 11:01 AM [facility] Feb 05, 2012 08:55 AM [facility] January 01, 2011 09:26 AM [facility] Mar 07, 2010 10:02 AM [facility] Feb 21, 2009 08:17 AM [facility] Nov 06, 2007 10:02 AM [facility] January 02, 2007 10:33 AM [facility] Advance Directives: All historical and [...] 06, 2005 ADVANCE DIRECTIVE GANESH RODRIGUEZ [facility] Encounter Notes: All associated encounter notes This section contains the clinical notes associated to the Encounter. Date/Time Encounter Note(s) Provider Source Oct 02, 2021 11:36 AM HOME HEALTH REFERRAL NOTE: RONNI JOHNSON [facility] LOCAL TITLE: [facility]ALTH CARE STANDARD TITLE: HOME HEALTH REFERRAL NOTE DATE OF NOTE: OCT 02, 2021@11:36 ENTRY DATE: OCT 02, 2021@11:36:58 AUTHOR: RONNI JOHNSON EXP COSIGNER: URGENCY: STATUS: COMPLETED HOME HEALTH CARE CERTIFICATION AND PLAN OF CARE SIGNED BY: [facility] [place] [id number] Certification period From: 02/08/2021 To: 2020 /eb JOHNSON ADVANCED ROSANGELA Signed: 10/02/2021 11:37 Oct 02, 2021 11:35 AM HOME HEALTH REFERRAL NOTE: RONNI JOHNSON [facility] LOCAL TITLE: [facility] STANDARD TITLE: HOME HEALTH REFERRAL NOTE DATE OF NOTE: OCT 02, 2021@11:35 ENTRY DATE: OCT 02, 2021@11:35:33 AUTHOR: RONNI JOHNSON EXP COSIGNER: URGENCY: STATUS: COMPLETED HOME HEALTH CARE CERTIFICATION AND PLAN OF CARE SIGNED BY: Dr. [facility] [place] [id number] Certification period From: 08/07/2021 To: 2021 /eb JOHNSON ADVANCED MSA Signed: 10/02/2021 11:36
--- OUTSIDE RECORDS SUMMARY | 2022-04-02 16:16 | XMS_ITS | Encounter Summary ---
:[address] [facility] Address [address] [place] [id number] Care Team Providers Name Role Phone JOSHI SAKSHI Primary Care Provider Unavailable Insurance Providers: [...] MEDICARE MEDICARE PART Jun 25, PART B [id number] Saumya QUINONES PATIENT (WNR) (M) B 2011 78A 0 AVID MEDICARE MEDICARE PART Sep 25, PART A [id number] Saumya QUINONES PATIENT (WNR) (M) A 2009 78A 0 AVID MEDICARE MEDICARE PART Sep 25, PART A [id number] Saumya MICHELE (WNR) (M) A 2009 [id number] [id number] AVID MEDICARE MEDICARE PART Sep 25, PART B [id number] Saumya MICHELE (WNR) (M) B [id number] AVID Selected Encounter This section includes the information on record at [place] for the Encounter. Date/Time Encounter Type Encounter Description Reason Provider Source Sep 20, 2021 01:27 Outpatient Encounter PRIMARY CARE/MEDICINE PM IHE Encounter Template Text not used by [place] Plan of Treatment: Future Appointments (+ 6 months) and Future Tests (+/- 45 days) The Plan of Treatment section includes future care activities for the patient from [facility] [place] [facility] This section includes future appointments and future orders which are active, pending orscheduled.Future Appointments This section includes appointments that were scheduled to occur 6 months from the date of the Encounter, up to a maximum of 20 appointments. The data comes from all [place] [facility]. Appointment Date/Time Appointment Type Appointment Facili ty Name Sep 21, 2021 09:45 AM AMBULATORY - MEDICINE [facility] Sep 21, 2021 10:00 AM AMBULATORY - MEDICINE [facility] Sep 21, 2021 10:30 AM AMBULATORY - MEDICINE [facility] Sep 21, 2021 11:00 AM AMBULATORY - MEDICINE [facility] Sep 21, 2021 11:30 AM AMBULATORY - MEDICINE [facility] Oct 12, 2021 09:30 AM AMBULATORY - NONE [facility] Nov 02, 2021 08:42 PM AMBULATORY - MEDICINE [facility] Nov 05, 2021 11:30 AM AMBULATORY - MEDICINE [facility] Nov 09, 2021 09:30 AM AMBULATORY - NONE [facility] Nov 19, 2021 12:45 PM AMBULATORY - MEDICINE [facility] Nov 21, 2021 10:00 AM AMBULATORY - SURGERY [facility] Nov 29, 2021 06:30 AM AMBULATORY - NONE [facility] Nov 29, 2021 07:30 AM AMBULATORY - MEDICINE [facility] Nov 29, 2021 08:00 AM AMBULATORY - MEDICINE [facility] Dec 21, 2021 09:30 AM AMBULATORY - NONE [facility] January 07, 2022 01:30 PM AMBULATORY - MEDICINE [facility] Feb 05, 2022 07:00 AM AMBULATORY - NONE [facility] Feb 07, 2022 09:30 AM AMBULATORY - NONE [facility] Feb 13, 2022 10:00 AM AMBULATORY - NONE [facility] Active, Pending, and [...] Encounter. The data comes from all [facility]. Test Date/Time Test Type Test Details Facility Name Sep 25, 2021 03:21 PM Pharmacy - Clinic Infusion [facility] Order Lab Results: +/- 30 days [...] Reference Range Comment Sep 21, 2021 08:58 [facility] BASIC METABOLIC Specimen Type: PLASMA AM PANEL+MG No comment enter ed. Ordering Provid er: TUCKER JULIAN Report Released Date/Time: Sep 21, 2021 08:58 AM Reporting Lab: [facility] [id number] Performing Lab: [facility] [id number] CREATININE 1.3 mg/dL H 0.7-1.2 UREA NITROGEN 15 mg/dL 8-26 GLUCOSE 173 mg/dL H 74-100 SODIUM 142 mmol/L 136-145 POTASSIUM 4.0 mmol/L 3.5-5.1 CHLORIDE 107 mmol/L 98-107 CO2 29 mmol/L 22-29 CALCIUM 9.6 mg/dL 8.4-10.2 MAGNESIUM 2.0 mg/dL 1.6-2.6 ANION GAP 6 mmol/L 5-15 ESTIMATED GFR(eGFR) 54 L >60 Sep 21, 2021 08:55 AM [facility] HEMOGLOBIN A1C Specim en Type: BLOOD No comment enter ed. Ordering Provid er: JAYY SAMS Report Released Date/Time: Sep 14, 2021 11:24 AM Reporting Lab: [facility] [id number] Performing Lab: [facility] [id number] HEMOGLOBIN A1C 8.5 H 4.0-6.0 Social History: [...] Comment Facility Mar 20, 2021 11:21 AM [place] TOBACCO USE CURRENT NRT [facility] DECLINE Tobacco Use History This section includes a history of the smoking, or tobacco- related health factors, that were collected on or before the date of the Encounter. The data comes from the [place] facility where the Encounter took place. Date/Time Smoking Status/Tobacco Use Comment Facil ity Nov 15, 2020 10:00 AM VA-TOBACCO DOESNT USE WI 30 MIN [facility] WAKEUP Nov 15, 2020 10:00 AM VA-TOBACCO USE 30 YEARS OR MORE [facility] Nov 15, 2020 10:00 AM [facility] Nov 15, 2020 10:00 AM VA-TOBACCO USE SHOE SPRAYER NO [facility] Nov 15, 2020 10:00 AM [facility]ACCO USE MED [facility] Nov 15, 2020 10:00 AM VA-TOBACCO USER EVERY DAY [facility] Jun 21, 2019 02:29 PM VA-TOBACCO USE 30 YEARS OR MORE [facility] Jun 21, 2019 02:29 PM [facility]CO [facility] Jun 21, 2019 02:29 PM VA-TOBACCO USE SHOE SPRAYER NO [facility] Jun 21, 2019 02:29 PM VA-TOBACCO USE MED [place] [facility] Jun 21, 2019 02:29 PM VA-TOBACCO USE WI 30 MIN OF WAKEUP [facility] Jun 21, 2019 02:29 PM VA-TOBACCO USER EVERY DAY [facility] Jun 09, 2018 03:48 PM VA-TOBACCO USE 30 YEARS OR MORE [facility] Jun 09, 2018 03:48 PM [facility]ACCO [facility] Jun 09, 2018 03:48 PM VA-TOBACCO USE SHOE SPRAYER NO [facility] Jun 09, 2018 03:48 PM VA-TOBACCO USE MED NO [place] [facility] Jun 09, 2018 03:48 PM VA-TOBACCO USE WI 30 MIN OF WAKEUP [facility] Jun 09, 2018 03:48 PM VA-TOBACCO USER EVERY DAY [facility] Jun 20, 2017 07:53 AM CURRENT [...] Mar 06, 2005 ADVANCE DIRECTIVE GANESH RODRIGUEZ [facility] Encounter Notes: All associated encounter notes This section contains the clinical notes associated to the Encounter. Date/Time Encounter Note(s) Provider Source Sep 20, 2021 01:27 PM HOME HEALTH REFERRAL NOTE: ELVIRAJosiah [facility] LOCAL TITLE: [facility] LUIS ANGEL SARKAR STANDARD TITLE: HOME HEALTH REFERRAL NOTE DATE OF NOTE: SEP 20, 2021@13:27 ENTRY DATE: SEP 20, 2021@13:27:32 AUTHOR: JACLYN WEISS EXP COSIGNER: URGENCY: STATUS: COMPLETED HOME HEALTH CARE CERTIFICATION AND PLAN OF CARE SIGNED BY: Dr. joshi.. [facility] eliceo salvador Certification period From: 06/08/21 To: 08/06/21 /billy/ LUIS ANGEL MARQUEZ ADVANCED MSA Signed: 09/20/2021 13:28
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
--- OUTSIDE RECORDS SUMMARY | 2022-04-02 16:16 | XMS_ITS | Encounter Summary ---
:1945 Author Organization Department [facility] Address [address] [place] [id number] Care Team Providers Name Role Phone WILLA [...] MEDICARE MEDICARE PART Jun 25, PART B [id number] Saumya QUINONES PATIENT (WNR) (M) B 2011 78A 0 AVID MEDICARE MEDICARE PART Sep 25, PART A [id number] Saumya QUINONES PATIENT (WNR) (M) A 2009 78A 0 AVID MEDICARE MEDICARE PART Sep 25, PART A [id number] Saumya MICHELE (WNR) (M) A 2009 [id number] [id number] AVID MEDICARE MEDICARE PART Sep 25, PART B [id number] Saumya MICHELE (WNR) (M) B 2009 [id number] [id number] AVID Selected Encounter This section includes the information on record at CT for the Encounter. Date/Time Encounter Type Encounter Reason Provider Source Description Jul 11, 2021 HC PRO PHONE TELEPHONE PRIMARY ICD-10-CM E11.9 JETT SAMS 01:00 PM CALL 21-30 MIN CARE Type 2 diabetes AN L mellitus without complications with Provider Comments: Type 2 diabetes mellitus ([facility] [id number]) IHE Encounter Template Text not used by [facility] Assessments - Encounter Diagnoses This section includes the primary and secondary diagnoses documented for the Encounter. Date/Time Primary/Secondary Diagnosis Name Provider Source Diagnosis Jul 11, 2021 PRIMARY Type 2 diabetes JETT SAMS [facility] 01:00 PM mellitus without AN L [facility] complications Plan of Treatment: Future Appointments (+ 6 months) and Future Tests (+/- 45 days) The Plan of Treatment section includes future care activities for the patient from all CT treatmentfacilities. This section includes future appointments and future orders which are active, pending orscheduled.Future Appointments This section includes appointments that were scheduled to occur 6 months from the date of the Encounter, up to a maximum of 20 appointments. The data comes from all CT treatment facilities. Appointment Date/Time Appointment Type Appointment Facili ty Name Jul 26, 2021 09:00 AM AMBULATORY - MEDICINE [facility] Jul 26, 2021 10:30 AM AMBULATORY - NONE [facility] Aug 03, 2021 10:46 AM AMBULATORY - MEDICINE [facility] Aug 08, 2021 07:00 AM AMBULATORY - NONE [facility] Aug 10, 2021 10:30 AM AMBULATORY - NONE [facility] Sep 14, 2021 09:00 AM AMBULATORY - NONE [facility] Sep 21, 2021 09:45 AM AMBULATORY - MEDICINE [facility] Sep 21, 2021 10:00 AM AMBULATORY - MEDICINE [facility] Sep 21, 2021 10:30 AM AMBULATORY - MEDICINE [facility] Sep 21, 2021 11:00 AM AMBULATORY - MEDICINE [facility] Sep 21, 2021 11:30 AM AMBULATORY - MEDICINE [facility] Oct 12, 2021 09:30 AM AMBULATORY - NONE [facility] Nov 02, 2021 08:42 PM AMBULATORY - MEDICINE [facility] Nov 05, 2021 11:30 AM AMBULATORY - MEDICINE [facility] Nov 09, 2021 09:30 AM AMBULATORY - NONE [facility] Nov 19, 2021 12:45 PM AMBULATORY - MEDICINE [facility] Nov 21, 2021 10:00 AM AMBULATORY - SURGERY [facility] Nov 29, 2021 06:30 AM AMBULATORY - NONE [facility] Nov 29, 2021 07:30 AM AMBULATORY - MEDICINE [facility] Nov 29, 2021 08:00 AM [facility] Active, Pending, and Scheduled Orders This section includes a listing of several types of active, pending, and scheduled orders, including clinic medications orders, diagnostic test orders, procedure orders and consult orders; where the start date of the order is 45 days before the date of the Encounter or 45 days after the date of the Encounter. The data comes from all CT treatment facilities. Test Date/Time Test Type Test Details Facility Name Jul 26, 2021 09:16 AM Pharmacy - Clinic Infusion [facility] Order Lab Results: +/- 30 days of the encounter This section includes the Chemistry and Hematology Lab Results on record with CT for the patient. Radiology Reports and Pathology Reports are provided separately, in subsequent sections.Lab Results This section contains the Chemistry/Hematology Results that were resulted 30 days before or 30 daysafter the date of the Encounter. Date/Time Source Result Type Result - Unit Interpretation Reference Range Comment Jun 18, 2021 [facility] CREATININE(INCLUDES EGFR) Sp ecimen Type: PLASMA 11:52 AM No comment enter ed. Ordering Provid er: SAKSHI CROUCH Report Released Date/Time: Nov 15, 2020 10:48 AM Reporting Lab: [facility] [address] [facility] [address] Performing Lab: [facility] [address] [facility] [address] CREATININE 1.3 mg/dL H 0.7-1.2 ESTIMATED GFR(eGFR) 54 L >60 Jun 18, 2021 11:52 AM [facility] POTASSIUM Specim en Type: PLASMA No comment enter ed. Ordering Provid er: SAKSHI CROUCH Report Released Date/Time: Nov 15, 2020 10:48 AM Reporting Lab: [facility] [address] [facility] [address] Performing Lab: [facility] [address] [facility] [address] POTASSIUM 4.0 mmol/L 3.5-5.1 Jun 18, 2021 11:52 AM [facility] CBC Specim en Type: BLOOD No comment enter ed. Ordering Provid er: SAKSHI CROUCH Report Released Date/Time: Nov 15, 2020 10:48 AM Reporting Lab: [facility] [address] [facility] [address] Performing Lab: [facility] [address] [facility] [address] WBC 7.85 10*3/uL 4.0-11.0 RBC 4.96 10*6/uL 4.6-6.2 HGB 16.8 g/dL 13.5-17.9 HCT 51.9 41-54 MCV 104.6 fL H 80-100 MCH 33.9 pg H 27-33 MCHC 32.4 g/dL 32.0-37.5 PLT 98 10*3/uL L 150-400 MPV 14.0 fL H 7.4-10.4 RDW 14.1 11.5-14.5 IPF 17.3 H 0-10 Jun 18, 2021 11:52 AM [facility] HEMOGLOBIN A1C Specim en Type: BLOOD No comment enter ed. Ordering Provid er: SAKSHI CROUCH Report Released Date/Time: Nov 15, 2020 10:48 AM Reporting Lab: [facility] [id number] Performing Lab: [facility] [address] HEMOGLOBIN A1C 8.6 H 4.0-6.0 Jun 18, 2021 11:50 [facility] BASIC METABOLIC Specimen Type: PLASMA AM PANEL+MG No comment enter ed. Ordering Provid er: VICENTE PELAEZ Report Released Date/Time: Feb 19, 2021 01:50 PM Reporting Lab: [facility] [address] Performing Lab: [facility] [address] CREATININE 1.3 mg/dL H 0.7-1.2 UREA NITROGEN 15 mg/dL 8-26 GLUCOSE 205 mg/dL H 74-100 SODIUM 142 mmol/L 136-145 POTASSIUM 4.1 mmol/L 3.5-5.1 CHLORIDE 106 mmol/L 98-107 CO2 26 mmol/L 22-29 CALCIUM 9.5 mg/dL 8.4-10.2 MAGNESIUM 2.2 mg/dL 1.6-2.6 ANION GAP 10 mmol/L 5-15 ESTIMATED GFR(eGFR) 54 L >60 Social History: Smoking Status (Most current) and Tobacco Use (All prior to encounter date) This section includes the most current, and the historical, smoking and tobacco-related health factors from the [facility] where the Encounter took place.Current Smoking Status This section includes the most current smoking, or tobacco-related health factor, from the CT facility where the Encounter took place. Date/Time Current Smoking Status Comment Facility Mar 20, 2021 11:21 AM [facility] TOBACCO USE CURRENT NRT [facility] DECLINE Tobacco Use History This section includes a history of the smoking, or tobacco- related health factors, that were collected on or before the date of the Encounter. The data comes from the CT facility where the Encounter took place. 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 [facility] Nov 15, 2020 10:00 AM VA-TOBACCO USE MED NO [place] [facility] Nov 15, 2020 10:00 AM VA-TOBACCO USER EVERY DAY [facility] Jun 21, 2019 02:29 PM VA-TOBACCO USE 30 YEARS OR MORE [facility] Jun 21, 2019 02:29 PM VA-TOBACCO USE ADVICE [place] [facility] Jun 21, 2019 02:29 PM VA-TOBACCO 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 [facility] Jun 21, 2019 02:29 PM VA-TOBACCO USE MED NO [place] [facility] Jun 21, 2019 02:29 PM VA-TOBACCO USE [place] 30 MIN OF WAKEUP [facility] Jun 21, 2019 02:29 PM VA-TOBACCO USER EVERY DAY [facility] Jun 09, 2018 03:48 PM VA-TOBACCO USE 30 YEARS OR MORE [facility] Jun 09, 2018 03:48 PM VA-TOBACCO USE ADVICE [place] [facility] Jun 09, 2018 03:48 PM VA-TOBACCO 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 [facility] Jun 09, 2018 03:48 PM VA-TOBACCO USE MED NO [place] [facility] Jun 09, 2018 03:48 PM VA-TOBACCO USE [place] 30 MIN OF WAKEUP [facility] Jun 09, 2018 03:48 PM VA-TOBACCO USER EVERY DAY [facility] Jun 20, 2017 07:53 AM CURRENT TOBACCO USER [facility] Jun 19, 2016 08:41 AM CURRENT TOBACCO USER [facility] Jun 21, 2015 08:15 AM CURRENT TOBACCO USER [facility] Mar 22, 2014 10:03 AM CURRENT TOBACCO USER [facility] Mar 25, 2013 11:01 AM CURRENT TOBACCO USER [facility] Feb 05, 2012 08:55 AM CURRENT TOBACCO USER [facility] January 01, 2011 09:26 AM CURRENT TOBACCO USER [facility] Mar 07, 2010 10:02 AM CURRENT TOBACCO USER [facility] Feb 21, 2009 08:17 AM CURRENT TOBACCO USER [facility] Nov 06, 2007 10:02 AM CURRENT TOBACCO USER [facility] January 02, 2007 10:33 AM CURRENT TOBACCO USER [facility] Advance Directives: All historical [...] Mar 06, 2005 ADVANCE DIRECTIVE GANESH RODRIGUEZ [facility] Radiology Reports: +/- 30 days [...] the Encounter. The data comes from all CT treatment facilities. Date/Time Radiology Report Provider Source Jul 26, 2021 09:06 AM US RIGHT UPPER QUADRANT (P): LAMBERT DHILLON [facility] PAUL MICHELE [id number] -1945 M Exm Date: JUL 26, 2021@09:06 Req Phys: SAKSHI CROUCH Loc: [facility] PACT CLOUD 4E (Req'g Loc) Img Loc: Ultrasound Imaging Service: Unknown (Case 2006 COMPLETE) US ECHOGRAM ABDOMEN LTD (US Detailed) CPT:35118 Proc Modifiers : RIGHT Reason for Study: Chronic thrombocytopenia Clinical History: IS NOT under investigation for COVID-19 or is COVID-19 negative Look for any evident cirrhosis Responsible prov ider name and phone number to notify for critical findings if other than user placing the order and pager listed below: User placing orders pager: [phone] LAST CREATININE 1.3 H (06/18/21) Report Status: Verified Date Reported: JUL 26, 2021 Date Verified: JUL 26, 2021 Industrial Hire Sales Assistant E-Sig:/ES/JOSE DHILLON MD Report: EXAM: Right upper [...] Primary Interpreting Staff: JOSE DHILLON MD, RADIOLOGIST (Industrial Hire Sales Assistant) Primary Interpreting Resident: KIMBERLY GOODSON DO, SPORTS COORDINATOR /NVP Encounter Notes: All associated encounter notes This section contains the clinical notes associated to the Encounter. Date/Time Encounter Note(s) Provider Source Jul 11, 2021 01:09 PM RN LONG TERM CARE NOTE: JAYY SAMS [facility] LOCAL TITLE: DIABETES RN LONG TERM CARE NOTE STANDARD TITLE: RN LONG TERM CARE NOTE DATE OF NOTE: JUL 11, 2021@13:09 ENTRY DATE: JUL 11, 2021@13:10 AUTHOR: JAYY SAMS EXP COSIGNER: URGENCY: STATUS: COMPLETED DIABETES RN LONG TERM CARE NOTE Has ADDENDA PAUL MICHELE is a 76 YO MALE followed by [facility] for medication management. SUBJECTIVE: Bruno reports he is doing well with his diabet es. He reports the weekly injection is going well. No concerns regarding i t at this time. He denies any symptoms of hypoglycemia. He tries to get some m ovement, however, limited. Bruno reports he has been using the ne w inhaler (fluticasone/salmeterol). He uses it about once per week. He thought it was r escue inhalers. He uses his albuterol for symptoms every other day t o daily. He thinks he can increase his intake of fluticasone/salmeterol usage a s he didn't realize it was supposed to be taken more frequently. He doesn't rinse his m outh out after its use. Lifestyle: Diet: Breakfast: nothing; 1 bowel of cereal once per week Lunch: 1 can of chicken noodle with fruit Evening meal: anything I can scrape up Snacks: candy bar here or there Beverages: more water; little bottle of vanda D or apple juice; 3 cups black coffee Exercise: deer hunting; walk around home ROS: (-) hypoglycemia symptoms (-) hyperglycemia symptoms SMBG Readings: Date AM Noon PM HS Notes 171 99 155 155 168 137 90 137 139 138 198 130 140 Pt reported exacerbations in past 12 months: [...] 1) ACCU-CHEK GUIDE (GLUCOSE) TEST STRIP USE ST ACTIVE TOPICALLY EVERY DAY TO CHECK BLOOD [...] FLORY TH EVERY ACTIVE DAY *confirms* 5) FLUTICASONE 230/SALMET 21MCG 120D INHL INHALE 1 PUFF ACTIVE BY INHALATION EVERY 12 HOURS RINSE MOUTH AFTER EACH USE; REPLACES SYMBICORT *not using consistently* 6) FUROSEMIDE 40MG TAB TAKE ONE TABLET BY MOUTH EVERY ACTIVE DAY 7) GABAPENTIN 300MG CAP TAKE TWO CAPSULES BY FLORY TH THREE ACTIVE TIMES A DAY FOR LEG PAIN 8) GLIPIZIDE 10MG TAB TAKE TWO TABLETS BY MOUTH TWICE A ACTIVE DAY TAKE 30 MINUTES BEFORE MEAL FOR DIABETES *confirms* 9) METFORMIN HCL 1000MG TAB TAKE ONE TABLET BY M OUTH TWO ACTIVE TIMES A DAY FOR DIABETES *confirms* 10) METOPROLOL SUCCINATE 100MG SA TAB TAKE ONE-H USP ACTIVE TABLET BY MOUTH EVERY DAY FOR HEART 11) NITROGLYCERIN 0.4MG SL TAB DISSOLVE ONE TABL ET UNDER ACTIVE THE TONGUE ONCE FOR CHEST PAIN * MAY REPEAT SAMI RY 5 MINUTES--NO MORE THAN 3 TOTAL 12) SACUBITRIL 24MG/VALSARTAN 26MG TAB TAKE 1 TA BLET BY ACTIVE MOUTH TWICE A DAY FOR HEART FAILURE 13) SEMAGLUTIDE 1MG/0.75ML INJ PEN 3ML INJECT 1M G UNDER ACTIVE THE SKIN EVERY WEEK FOR DIABETES -REFRIGERATE -MULTIPLE DOSES PER PEN *confirms* Inactive Outpatient Medications Status 1) ALBUTEROL 90MCG (CFC-F) 200D ORAL INHL INHALE 2 PUFFS BY INHALATION FOUR TIMES A DAY NEEDED FOR SHORTNESS OF BREATH *SHAKE WELL* (FOR IMMEDIATE RELIEF) 2) VITAMIN B COMPLEX CAP TAKE 1 CAPSULE BY MOUTH EVERY DAY FOR NUTRITION Active Non-VA Medications Status 1) Non-VA ASCORBIC ACID 500MG TAB 1000MG EVERY D AY ACTIVE 2) Non-VA MARINE LIPID (FISH OIL) CAP,ORAL MOUTH ACTIVE 3) Non-VA MULTIVITAMINS CAP/TAB MOUTH ACTIVE 4) Non-VA NON VA MED NOT LISTED MISCELLANEOUS CA TS CLAW ACTIVE MOUTH 19 Total Medications Adherence to medications: good per OBJECTIVE: ALLERGIES/ADR: LISINOPRIL (Nov 09, 2007) Vitals: [...] PLASMA!! ESTIMATED GFR(eGF 54 L Ref: >=60 !! Indicates COMMENTS AVAILABLE...Refer to Inter im Lab Report. CHOLESTEROL 166 (10/27/20) MEASURED LDL____ LDL CALCULATION [...] Last A1C above goal, however, has improved. has not bee n on semaglutide maximum dose for a full three months, so expect continued imp roved A1C. SMBG are at goal. Tolerating semaglutide. No changes at this time. If any hypoglycemia, will consider reducing glipizide. #COPD Bruno is not using inhalers correctly. Using m aintenance inhaler PRN. Given risk associated with steroids and multiple daily dosing, will switch fluticasone/salmeterol to LAMA/LABA (tiotropium/ Olodaterol). Change should reduce complexity and improve adherence. PLAN: - No changes to diabetes regimen - STOP fluticasone/salmeterol - START tiotropium/Olodaterol 2 puffs once daily #Disease-Specific Med Rec: Completed today #Labs: A1C in ~ Aug/sep - Educated vet on indication/risks/benefits of n ew/changed medication. - Education provided on therapeutic nonpharmacol ogic management to achieve goals. - Vet advised of recent labs. - verbalized underst anding to all plans discussed today. Questions were answered to vet's satisfaction. Time spent: () 5-10 minutes () 11-20 minutes (x) 21-30 minutes RTC: 08/10@10:30 /eb SAMS Pharmacist Signed: 07/12/2021 08:27 07/12/2021 ADDENDUM STATUS: COMPLETED mail print out /eb SAMS Pharmacist Signed: 07/12/2021 15:26 08/09/2021 ADDENDUM STATUS: COMPLETED --FYI to Pharm for review at tomorrow's appt Patient Name: PAUL MICHELE Disease(s): CHF Date Range: 07/11/2021-08/09/2021 [place] Average Report Sys/Aracely BP-HR Weight BG Average 120/84 85 224.4 157 High 149/97 97 226.0 257 Low 88/54 67 222.0 103 Blood Glucose Summary: 05:00-11:30 11:30-16:00 16:00-18:30 18:30-23:0 [...] 144(07:23) 07/14/21 145(05:38) 07/13/21 130(06:09) 07/12/21 120(06:05) /es/ Eloise Kiser RN Principal Trainer Signed: 08/09/2021 09:18 Receipt Acknowledged By: * AWAITING SIGNATURE * JAYY SAMS
--- OUTSIDE RECORDS SUMMARY | 2022-04-02 16:16 | XMS_ITS | Encounter Summary ---
:1945 Author Organization [facility] Address [address] [place] [address] Care Team Providers Name Role Phone CROUCH [...] MEDICARE MEDICARE PART Jun 25, PART B [id number] Saumya QUINONES PATIENT (WNR) (M) B 2011 78A 0 AVID MEDICARE MEDICARE PART Sep 25, PART A [id number] Saumya QUINONES PATIENT (WNR) (M) A 2009 [id number] 0 AVID MEDICARE MEDICARE PART Sep 25, PART A [id number] Saumya MICHELE (WNR) (M) A 2009 [id number] [id number] AVID MEDICARE MEDICARE PART Sep 25, PART B [id number] Saumya MICHELE (WNR) (M) B [id number] AVID Selected Encounter This section includes the information on record at [place] for the Encounter. Date/Time Encounter Type Encounter Reason Provider Source Description Jul 31, 2021 Outpatient HT NON-VIDEO ICD-10-CM J44.9 ELOISE WILBURN 07:52 AM Encounter MONITORING Chronic obstructive pulmonary disease, unspecified with Provider Comments: Chronic obstructive pulmonary disease ([facility] [id number]) IHE Encounter Template Text not used by [place] Assessments - Encounter Diagnoses This section includes the primary and secondary diagnoses documented for the Encounter. Date/Time Primary/Secondary Diagnosis Name Provider Source Diagnosis Jul 31, 2021 PRIMARY Chronic ELOISE WILBURN [facility] 07:53 AM obstructive HCS pulmonary disease, unspecified Jul 31, 2021 SECONDARY Chronic systolic ELOISE WILBURN [facility] 07:53 AM (congestive) [facility] heart failure Plan of Treatment: Future Appointments [...] 03, 2021 10:46 AM AMBULATORY - MEDICINE [facility] Aug 08, 2021 07:00 AM AMBULATORY - NONE [facility] Aug 10, 2021 10:30 AM AMBULATORY - NONE [facility] Sep 14, 2021 09:00 AM AMBULATORY - NONE [facility] Sep 21, 2021 09:45 AM AMBULATORY - MEDICINE [facility] Sep 21, 2021 10:00 AM AMBULATORY - MEDICINE [facility] Sep 21, 2021 10:30 AM AMBULATORY - MEDICINE [facility] Sep 21, 2021 11:00 AM AMBULATORY - MEDICINE [facility] Sep 21, 2021 11:30 AM AMBULATORY - MEDICINE [facility] Oct 12, 2021 09:30 AM AMBULATORY - NONE [facility] Nov 02, 2021 08:42 PM AMBULATORY - MEDICINE [facility] Nov 05, 2021 11:30 AM AMBULATORY - MEDICINE [facility] CS Nov 09, 2021 09:30 AM AMBULATORY - NONE [facility] Nov 19, 2021 12:45 PM AMBULATORY - MEDICINE [facility] Nov 21, 2021 10:00 AM AMBULATORY - SURGERY [facility] Nov 29, 2021 06:30 AM AMBULATORY - NONE [facility] Nov 29, 2021 07:30 AM AMBULATORY - MEDICINE [facility] Nov 29, 2021 08:00 AM AMBULATORY - MEDICINE [facility] Dec 21, 2021 09:30 AM AMBULATORY - NONE [facility] January 07, 2022 01:30 PM AMBULATORY - MEDICINE [facility] CS Active, Pending, and Scheduled Orders This [...] 2021 09:16 AM Pharmacy - Clinic Infusion [facility] Order Social History: Smoking Status (Most [...] 11:21 AM VA-VAAES TOBACCO USE CURRENT NRT [facility] DECLINE Tobacco Use History This section includes a history of the smoking, or tobacco- related health factors, that were collected on or before the date of the Encounter. The data comes from the [place] facility where the Encounter took place. 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 [facility] Nov 15, 2020 10:00 AM VA-TOBACCO USE MED NO [place] [facility] Nov 15, 2020 10:00 AM VA-TOBACCO USER EVERY DAY [facility] Jun 21, 2019 02:29 PM VA-TOBACCO USE 30 YEARS OR MORE [facility] Jun 21, 2019 02:29 PM VA-TOBACCO USE ADVICE [place] [facility] Jun 21, 2019 02:29 PM VA-TOBACCO USE SAS ADMINISTRATOR NO [facility] Jun 21, 2019 02:29 PM VA-TOBACCO USE MED NO [place] [facility] Jun 21, 2019 02:29 PM VA-TOBACCO USE [place] 30 MIN OF WAKEUP [facility] Jun 21, 2019 02:29 PM VA-TOBACCO USER EVERY DAY [facility] Jun 09, 2018 03:48 PM VA-TOBACCO USE 30 YEARS OR MORE [facility] Jun 09, 2018 03:48 PM [facility]CO [facility] Jun 09, 2018 03:48 PM VA-TOBACCO USE SAS ADMINISTRATOR NO [facility] Jun 09, 2018 03:48 PM VA-TOBACCO USE MED [facility] Jun 09, 2018 03:48 PM VA-TOBACCO USE [place] 30 MIN OF WAKEUP [facility] Jun 09, 2018 03:48 PM VA-TOBACCO USER EVERY DAY [facility] Jun 20, 2017 07:53 AM CURRENT [...] Mar 06, 2005 ADVANCE DIRECTIVE GANESH RODRIGUEZ [facility] Radiology Reports: +/- 30 days of [...] US RIGHT UPPER QUADRANT (P): LAMBERT DHILLON [facility] PAUL MICHELE [id number] -1945 M Exm Date: JUL 26, 2021@09:06 Req Phys: SAKSHI CROUCH Loc: [facility] PACT CLOUD 4E (Req'g Loc) Img Loc: Ultrasound Imaging Service: Unknown (Case 2006 COMPLETE) US ECHOGRAM ABDOMEN LTD (US Detailed) CPT:62179 Proc Modifiers : RIGHT Reason for Study: Chronic thrombocytopenia Clinical History: IS NOT under investigation for COVID-19 or is COVID-19 negative Look for any evident cirrhosis Responsible prov ider name and phone number to notify for critical findings if other than user placing the order and pager listed below: User placing orders pager: [phone] LAST CREATININE 1.3 H (06/18/21) Report Status: Verified Date Reported: JUL 26, 2021 Date Verified: JUL 26, 2021 Speech Language Pathologist Prn E-Sig:/ES/JOSE DHILLON MD Report: EXAM: Right upper [...] Primary Interpreting Staff: JOSE DHILLON MD, RADIOLOGIST (Speech Language Pathologist Prn) Primary Interpreting Resident: KIMBERLY GOODSON DO, WARDSPERSON /NVP Encounter Notes: All associated encounter notes This section contains the clinical notes associated to the Encounter. Date/Time Encounter Note(s) Provider Source Jul 31, 2021 07:52 AM CARE COORDINATION HOME TELE[facility] NOTE: ELOISE WILBURN [facility] LOCAL TITLE: HT MONTHLY MONITOR NOTE STANDARD TITLE: CARE COORDINATION HOME TELEHEALT H SUMMARIZATION DATE OF NOTE: JUL 31, 2021@07:52 ENTRY DATE: JUL 31, 2021@07:52:21 AUTHOR: ELOISE WILBURN EXP COSIGNER: URGENCY: STATUS: COMPLETED SUBJECT: Ht Monthly Note The is enrolled in the Home Telehealth ( HT) program and continues to be monitored via HT technology. The data sent by the [place] is reviewed and analyzed by the staff, who provide ongoin g case management and [place] health education while communicating and collaborating with the health care team as appropriate. This note cover s a total of 30 minutes for the month monitored. Month monitored: /billy/ Eloise Wilburn RN Ht Systems Mgr Signed: 07/31/2021 07:53
--- OUTSIDE RECORDS SUMMARY | 2022-04-02 16:16 | XMS_ITS | Encounter Summary ---
:1945 Author Organization [facility] Address [address] [place], [place] [id number] Care Team Providers Name Role Phone WILLA [...] MEDICARE MEDICARE PART Jun 25, PART B [id number] Saumya QUINONES PATIENT (WNR) (M) B 2011 [id number] 0 AVID MEDICARE MEDICARE PART Sep 25, PART A [id number] Saumya QUINONES PATIENT (WNR) (M) A 2009 [id number] 0 AVID MEDICARE MEDICARE PART Sep 25, PART A [id number] Saumya MICHELE (WNR) (M) A 2009 78A [id number] AVID MEDICARE MEDICARE PART Sep 25, PART B [id number] Saumya MICHELE ATIENT (WNR) (M) B 2009 78A [id number] AVID Selected Encounter This section includes the information on record at [place] for the Encounter. Date/Time Encounter Type Encounter Reason Provider Source Description Sep 21, 2021 ELECTROCARDIOGRAM EKG ICD-10-CM Z13.6 RASHAWN PELAEZ 10:00 AM COMPLETE Encounter for Y A screening for cardiovascular disorders with Provider Comments: Encounter for Screening for Cardiovascular Disorders IHE Encounter Template Text not used by [place] Assessments - Encounter Diagnoses This section includes the primary and secondary diagnoses documented for the Encounter. Date/Time Primary/Secondary Diagnosis Name Provider Source Diagnosis Sep 21, 2021 PRIMARY Encounter for MARIA ISABEL POOL 04:37 PM screening for HCS cardiovascular disorders Plan of Treatment: Future Appointments (+ 6 months) and Future Tests (+/- 45 days) The Plan of Treatment section includes future care activities for the patient [facility] This section includes future appointments and future orders which are active, pending orscheduled.Future Appointments This section includes appointments that were scheduled to occur 6 months from the date of the Encounter, up to a maximum of 20 appointments. The data comes from all [place] treatment [facility]. Appointment Date/Time Appointment Type Appointment Facili ty Name Oct 12, 2021 09:30 AM AMBULATORY - NONE [facility] Nov 02, 2021 08:42 PM AMBULATORY - MEDICINE [facility] Nov 05, 2021 11:30 AM AMBULATORY - MEDICINE [facility] Nov 09, 2021 09:30 AM AMBULATORY - NONE [facility] Nov 19, 2021 12:45 PM AMBULATORY - MEDICINE [facility] Nov 21, 2021 10:00 AM AMBULATORY - SURGERY [facility] S Nov 29, 2021 06:30 AM AMBULATORY - NONE [facility] Nov 29, 2021 07:30 AM AMBULATORY - MEDICINE [facility] Nov 29, 2021 08:00 AM AMBULATORY - MEDICINE [facility] Dec 21, 2021 09:30 AM AMBULATORY - NONE [facility] January 07, 2022 01:30 PM AMBULATORY - MEDICINE [facility] Feb 05, 2022 07:00 AM AMBULATORY [...] the Encounter. The data comes from all [place] treatment [facility]. Test Date/Time Test Type Test Details Facility Name Sep 25, 2021 03:21 PM Pharmacy - Clinic Infusion [facility] Order Lab Results: +/- 30 [...] Sep 21, 2021 08:58 AM Reporting Lab: [facility] [id number] Performing Lab: [facility] [id number] CREATININE 1.3 mg/dL H 0.7-1.2 UREA NITROGEN [...] Sep 14, 2021 11:24 AM Reporting Lab: [facility] [id number] Performing Lab: [facility] [id number] HEMOGLOBIN A1C 8.5 H 4.0-6.0 Vital Signs: [...] P 2021 09:49 /min mm[Hg] lb [facility] Social History: Smoking Status (Most current) [...] took place. Date/Time Smoking Status/Tobacco Use Comment [facility] it Nov 15, 2020 10:00 AM VA-TOBACCO DOESNT USE WI 30 MIN [facility] WAKEUP Nov 15, 2020 10:00 AM VA-TOBACCO USE 30 YEARS OR MORE [facility] Nov 15, 2020 10:00 AM VA-TOBACCO USE ADVICE [place] [facility] Nov 15, 2020 10:00 AM VA-TOBACCO USE DIRECTOR OF PEDIATRIC REHABILITATION NO [facility] Nov 15, 2020 [...] 2019 02:29 PM VA-TOBACCO USE DIRECTOR OF PEDIATRIC REHABILITATION NO [facility] Jun 21, 2019 [...] 2018 03:48 PM VA-TOBACCO USE DIRECTOR OF PEDIATRIC REHABILITATION NO [facility] Jun 09, 2018 03:48 PM VA-TOBACCO USE MED NO [place] [facility] Jun 09, 2018 03:48 PM VA-TOBACCO USE [place] 30 MIN OF WAKEUP [facility] Jun 09, 2018 03:48 PM VA-TOBACCO USER EVERY DAY [facility] Jun 20, 2017 07:53 AM CURRENT TOBACCO USER [facility] Jun 19, 2016 08:41 AM CURRENT TOBACCO USER [facility] Jun 21, 2015 08:15 AM CURRENT TOBACCO USER [facility] Mar 22, 2014 10:03 AM [facility] Mar 25, 2013 11:01 AM [facility] Feb 05, 2012 08:55 AM [...]
--- OUTSIDE RECORDS SUMMARY | 2022-04-02 16:16 | XMS_ITS | Encounter Summary ---
:1945 [address] [facility] Address [address] [place] [address] Care Team Providers Name Role Phone WILLA [...] MEDICARE MEDICARE PART Jun 25, PART B [id number] Saumya QUINONES PATIENT (WNR) (M) B 2011 78A 0 AVID MEDICARE MEDICARE PART Sep 25, PART A [id number] Saumya QUINONES PATIENT (WNR) (M) A 2009 78A 0 AVID MEDICARE MEDICARE PART Sep 25, PART A [id number] Saumya MICHELE (WNR) (M) A 2009 78A [id number] AVID MEDICARE MEDICARE PART Sep 25, PART B [id number] Saumya MICHELE (WNR) (M) B 2009 [id number] [phone] AVID Selected Encounter This section includes the information on record at [place] for the Encounter. Date/Time Encounter Type Encounter Reason Provider Source Description Jun 26, 2021 HC PRO PHONE TELEPHONE PRIMARY ICD-10-CM ELOISE WILBURN 06:22 AM CALL 21-30 MIN CARE I50.22 Chronic systolic (congestive) heart failure with Provider Comments: Chronic systolic heart failure ([facility] [id number]) IHE Encounter Template Text not used by [facility] Assessments - Encounter Diagnoses This section includes the primary and secondary diagnoses documented for the Encounter. Date/Time Primary/Secondary Diagnosis Name Provider Source Diagnosis Jun 26, 2021 PRIMARY Chronic systolic ELOISE WILBURN [facility] 06:22 AM (congestive) heart HCS failure Jun 26, 2021 SECONDARY Type [address] 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 This section includes future appointments and future orders which are active, pending orscheduled.Future Appointments This section includes appointments that were scheduled to occur 6 months from the date of the Encounter, up to a maximum of 20 appointments. The data comes from all [place] treatment facilities. Appointment Date/Time Appointment Type Appointment Facili ty Name Jul 11, 2021 01:00 PM AMBULATORY - NONE [facility] Jul 26, 2021 09:00 AM AMBULATORY - MEDICINE [facility] Jul 26, 2021 10:30 AM AMBULATORY - NONE [facility] Aug 03, 2021 10:46 AM AMBULATORY - MEDICINE [facility] Aug 08, 2021 07:00 AM AMBULATORY - NONE [facility] Aug 10, 2021 10:30 AM AMBULATORY - NONE [facility] Sep 14, 2021 09:00 AM AMBULATORY - NONE [facility] Sep 21, 2021 09:45 AM AMBULATORY - MEDICINE [facility] Sep 21, 2021 10:00 AM AMBULATORY - MEDICINE [facility] Sep 21, 2021 10:30 AM AMBULATORY - MEDICINE [facility] Sep 21, 2021 11:00 AM AMBULATORY - MEDICINE [facility] Sep 21, 2021 11:30 AM AMBULATORY - MEDICINE [facility] Oct 12, 2021 09:30 AM AMBULATORY - NONE [facility] Nov 02, 2021 08:42 PM AMBULATORY - MEDICINE [facility] Nov 05, 2021 11:30 AM AMBULATORY - MEDICINE [facility] Nov 09, 2021 09:30 AM AMBULATORY - NONE [facility] Nov 19, 2021 12:45 PM AMBULATORY - MEDICINE [facility] Nov 21, 2021 10:00 AM AMBULATORY - SURGERY [facility] Nov 29, 2021 06:30 AM AMBULATORY - NONE [facility] Nov 29, 2021 07:30 AM AMBULATORY - MEDICINE [facility] Active, Pending, and Scheduled [...] 2021 09:16 AM Pharmacy - Clinic Infusion [facility] Order Lab Results: +/- 30 days of [...] Interpretation Reference Range Comment Jun 18, 2021 [facility] CREATININE(INCLUDES EGFR) Sp ecimen Type: PLASMA 11:52 AM No comment enter ed. Ordering Provid er: SAKSHI CROUCH Report Released Date/Time: Nov 15, 2020 10:48 AM Reporting Lab: [facility] [address] [facility] [address] Performing Lab: [facility] [address] [facility] [address] CREATININE 1.3 mg/dL H 0.7-1.2 ESTIMATED GFR(eGFR) 54 L >60 Jun 18, 2021 11:52 AM [facility] POTASSIUM Specim en Type: PLASMA No comment enter ed. Ordering Provid er: SAKSHI CROUCH Report Released Date/Time: Nov 15, 2020 10:48 AM Reporting Lab: [facility] [address] [facility] [address] Performing Lab: [facility] [address] [facility] [address] POTASSIUM 4.0 mmol/L 3.5-5.1 Jun 18, 2021 11:52 AM [facility] CBC Specim en Type: BLOOD No comment enter ed. Ordering Provid er: SAKSHI CROUCH Report Released Date/Time: Nov 15, 2020 10:48 AM Reporting Lab: [facility] [address] [facility] [address] Performing Lab: [facility] [address] [address] WBC 7.85 10*3/uL 4.0-11.0 RBC 4.96 10*6/uL 4.6-6.2 HGB 16.8 g/dL 13.5-17.9 HCT 51.9 41-54 MCV 104.6 fL H 80-100 MCH 33.9 pg H 27-33 MCHC 32.4 g/dL 32.0-37.5 PLT 98 10*3/uL L 150-400 MPV 14.0 fL H 7.4-10.4 RDW 14.1 11.5-14.5 IPF 17.3 H 0-10 Jun 18, 2021 11:52 AM [facility] HEMOGLOBIN A1C Specim en Type: BLOOD No comment enter ed. Ordering Provid er: SAKSHI CROUCH Report Released Date/Time: Nov 15, 2020 10:48 AM Reporting Lab: [facility] [address] [facility] [address] Performing Lab: [facility] [address] HEMOGLOBIN A1C 8.6 H 4.0-6.0 Jun 18, 2021 11:50 [facility] BASIC METABOLIC Specimen Type: PLASMA AM PANEL+MG No comment enter ed. 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 [facility] Nov 15, 2020 10:00 AM VA-TOBACCO USE MED NO [place] [facility] Nov 15, 2020 10:00 AM VA-TOBACCO USER EVERY DAY [facility] Jun 21, 2019 02:29 PM VA-TOBACCO USE 30 YEARS OR MORE [facility] Jun 21, 2019 02:29 PM [facility] Jun 21, 2019 02:29 PM VA-TOBACCO USE INDUSTRIAL ENGINEERING TECHNICIAN NO [facility] Jun 21, 2019 02:29 [...] Jun 09, 2018 03:48 PM VA-TOBACCO USE INDUSTRIAL ENGINEERING TECHNICIAN NO [facility] Jun 09, 2018 03:48 PM VA-TOBACCO USE MED NO [place] [facility] Jun 09, 2018 03:48 PM VA-TOBACCO USE WI 30 MIN OF WAKEUP [facility] Jun 09, 2018 03:48 PM VA-TOBACCO USER EVERY DAY [facility] Jun 20, 2017 07:53 AM CURRENT TOBACCO USER [facility] Jun 19, 2016 08:41 AM CURRENT TOBACCO USER [facility] Jun 21, 2015 08:15 AM CURRENT TOBACCO USER [facility] Mar 22, 2014 10:03 AM CURRENT TOBACCO USER [facility] Mar 25, 2013 11:01 AM CURRENT TOBACCO USER [facility] Feb 05, 2012 08:55 AM CURRENT TOBACCO USER [facility] January 01, 2011 09:26 AM CURRENT TOBACCO USER [facility] Mar 07, 2010 10:02 AM CURRENT TOBACCO USER [facility] Feb 21, 2009 08:17 AM CURRENT TOBACCO USER [facility] Nov 06, 2007 10:02 AM CURRENT TOBACCO USER [facility] January 02, 2007 10:33 AM CURRENT TOBACCO USER [facility] Advance Directives: All historical and [...] Source Mar 06, 2005 ADVANCE DIRECTIVE MICHAELGANESH [facility] Radiology Reports: +/- 30 days of the [...] US RIGHT UPPER QUADRANT (P): LAMBERT DHILLON [facility] PAUL MICHELE [id number] -[id number] M Exm Date: JUL 26, 2021@09:06 Req Phys: SAKSHI CROUCH Loc: [facility] PACT CLOUD 4E (Req'g Loc) Img Loc: Ultrasound Imaging Service: Unknown (Case 2006 COMPLETE) US ECHOGRAM ABDOMEN LTD (US Detailed) CPT:67533 Proc Modifiers : RIGHT Reason for Study: Chronic thrombocytopenia Clinical History: IS NOT under investigation for COVID-19 or is COVID-19 negative Look for any evident cirrhosis Responsible prov ider name and phone number to notify for critical findings if other than user placing the order and pager listed below: User placing orders pager: [phone] LAST CREATININE 1.3 H (06/18/21) Report Status: Verified Date Reported: JUL 26, 2021 Date Verified: JUL 26, 2021 Military Pilot E-Sig:/ES/JOSE DHILLON MD Report: EXAM: Right upper [...] Primary Interpreting Staff: JOSE DHILLON MD, RADIOLOGIST (Military Pilot) Primary Interpreting Resident: KIMBERLY GOODSON DO, PUBLIC HEALTH /NVP Encounter Notes: All associated encounter notes This section contains the clinical notes associated to the Encounter. Date/Time Encounter Note(s) Provider Source Jun 26, 2021 08:08 AM CARE COORDINATION HOME TELEHEALTH EDUC ATION NOTE: ELOISE WILBURN [facility] LOCAL TITLE: HT TECH EDUCATION NOTE STANDARD TITLE: CARE COORDINATION HOME TELEHEALT H EDUCATION NOTE DATE OF NOTE: JUN 26, 2021@08:08 ENTRY DATE: JUN 26, 2021@08:09:55 AUTHOR: ELOISE WILBURN EXP COSIGNER: URGENCY: STATUS: COMPLETED SUBJECT: Ht Tech Ed HOME TELEHEALTH (HT) TECH EDUCATION AND INSTALLA TION NOTE Home Monitoring technology assigned: In Home Messaging Device (IHMD) Vendor: [employer] Connection via: Cellular modem Peripheral Device(s): Blood pressure Monitor with pulse Entry: Bluetooth Digital Scale Entry: Bluetooth Non-pharmacy provided Blood Glucose Meter Entry: Bluetooth Delivery mode: Mailed to [place] from [facility] ([place] [employer]) Technology installed by: /Caregiver /Caregiver was educated on technology by : Automatic Mounter (name): Eloise Wilburn RN /Caregiver is able to understand verbal instructions. /Caregiver is able to follow visual inst ructions. [place]/Caregiver has adequate hearing (for Int eractive Voice Response). /Caregiver does not need learning aid. /Caregiver trained on the following: Level of Understanding: Good Power and phone connections Safety information Ability to read and answer questions Ability to push appropriate buttons Password information Confidentiality of information When to contact staff for technology problems How to connect and transmit vital sign data Whom to call for urgent/emergent needs /Caregiver verbalized understanding of h ow to operate Home Telehealth Technology during telephone enrollme nt. /Caregiver is able to do return demonstr ation. Contact information given to [place]/Caregiver? Yes /es/ Eloise Wilburn RN Ht Automatic Mounter Signed: 06/26/2021 08:15 Jun 26, 2021 07:59 AM CARE COORDINATION HOME TELEHEALTH E & M NOTE: ELOISE WILBURN [facility] LOCAL TITLE: HT CONTINUUM OF CARE NOTE STANDARD TITLE: CARE COORDINATION HOME TELEHEALT H E & M NOTE DATE OF NOTE: JUN 26, 2021@07:59 ENTRY DATE: JUN 26, 2021@07:59:31 AUTHOR: ELOISE WILBURN EXP COSIGNER: URGENCY: STATUS: COMPLETED SUBJECT: Ht Continuum of senior living TELEHEALTH CONTINUUM OF CARE - Initial asse ssment 'S LIVING SITUATION: [place] lives with spouse only. lives in a private home or apartment. PRIMARY (UNPAID) CAREGIVER INFORMATION: The has an unpaid caregiver. Caregiver lives with the [place]. Caregiver's name: Caregiver relationship: Spouse Caregiver provides advice/emotional support. Caregiver provides basic ADL (Activities of Latoya ly Living) help. Caregiver provides IADL (Instrumental Activitie s of Daily Living) help. Caregiver is willing/able to increase help. BASIC ACTIVITIES OF DAILY LIVING: In the last 7 days, has the [place] required help or supervision with the following activitie s? Bathing (tub bath, shower, or sponge) - No Dressing (lower and upper body) - Yes Eating (taking food by any method, including tu be feedings) - No Using the toilet (or urinal/bedpan, cleaning se lf) - No Moving around in bed (turning, to/from sitting, repositioning) - No Transfers (from bed, chair, wheelchair) - No Moving around indoors (even with cane, walker, or scooter) - No INSTRUMENTAL ACTIVITES OF DAILY LIVING: In the l ast 7 days, has the [place] expressed difficulty with the following activities? Preparing meals (planning, cooking, setting out food/utensils) - Yes 's meals were prepared by others. Performing housework - Yes Shopping (selecting items, managing money) - Ye s Transportation (getting to places beyond walkin g distance by any mode) - No Using the telephone (receiving or making calls with or without assistive devices) - No Managing medications (remembering to take meds, opening bottles, taking correct dosages at correct times) - No Managing own finances (maintaining a checkbook, paying own routine bills) - No BEHAVIORS AND SYMPTOMS THAT HAVE BEEN MI ESENT OR WOULD LIKELY MANIFEST IN THE ABSENCE OF CARE COORDINAT ION SERVICES: Wandering - No Verbally abusive behavior - No Physically abusive behavior - No Hallucinations - No Delusions - No Substance abuse or dependence - No Depression - No Nubia - No PTSD or other severe anxiety disorder - No Resisting care - No COGNITIVE STATUS: In the last 7 days (or would likely manifest in the absence of continued HT services) did the have dif ficulty making decisions that are reasonable about organizing the day, such as when to get up, what meals to have or what clot hes to wear? No In the last 7 days (or would likely manifest in the absence of continued HT services) has the been cory ble to make himself/herself understood? No In the last 90 days, has the [place] become so agitated or disoriented that his/her safety was endangered or he/she required protection by others as a result? No PROGNOSIS: The [place] has NOT had a recent (2-3 month) ch da in his/her level of functioning. The [place] has not experienced a flare-up of a recurrent or chronic health problem in the last 7 days. The direct care staff does NOT think the Vetera n is capable of increased independence in ADLs, IADLs and/or mobility. The [place] does NOT have a limited life expect melba of 6-12 months. NON-INSTITUTIONAL CARE/CHRONIC CARE MANAGEMENT S CORING SUMMARY: [place] does not meet JESI (Non-Institutional Ca re) criteria. has one or more chronic illnesses savana ble to care in Home Telehealth. [place] requires ongoing intensive case managem ent, monitoring and interventions. [place] meets criteria for Chronic Care Managem ent (CCM). The complexity of the [place]'s care needs is n ot greater than Home Telehealth services alone can provide. TYPE OF ENCOUNTER: Telephone Length of call: 21-30 minutes /billy/ Eloise Wilburn RN Ht Automatic Mounter Signed: 06/26/2021 08:05 Jun 26, 2021 06:22 AM CARE COORDINATION HOME TELEHEALTH PETER TMENT PLAN NOTE: ELOISE WILBURN [facility] LOCAL TITLE: HT ASSESSMENT TREATMENT PLAN NOTE STANDARD TITLE: CARE COORDINATION HOME TELEHEALT H TREATMENT PLAN DATE OF NOTE: JUN 26, 2021@06:22 ENTRY DATE: JUN 26, 2021@06:22:54 AUTHOR: ELOISE WILBURN EXP COSIGNER: URGENCY: STATUS: COMPLETED SUBJECT: Ht Admission Note CARE COORDINATION ASSESSMENT TREATMENT PLAN [place] Enrollment Agreement reviewed and Veter an consents to participate in the HT Program. Discussion details: program requirements Home Telehealth enrollment starting date: Date: June 26, 2021 Clinician's reason for Home Telehealth enrollme nt: HF How do you think this program will benefit you ([place]'s goal): learn how to better manage my heart failure MENTAL STATUS: Alert Oriented to person Oriented to place Oriented to time HEALTH STATUS: Current symptoms (Chief Complaints): denies s/s Major health problem(s) (Review of Systems): hf,copd,a-fib,dm VITAL SIGNS: VITALS: Temp: 98.6 F [37.0 C] (06/20/2021 09:36) Pulse: 88 (06/20/2021 09:36) Resp: 18 (06/20/2021 09:36) BP: 114/79 (06/20/2021 09:36) Height: 73 in [185.4 cm] (06/18/2021 12:53) Weight: 230.4 lb [104.7 kg] (06/20/2021 09:36) Pain: 1 (06/20/2021 09:36) Assessment of Vital signs (eg. baselines, trend s) baseline VS above Current pain level: 0 The hasn't expressed any complaints of pain. Is the [place] on Oxygen? No Sensory abilities/disabilities: intact Spiritual/cultural preferences: none Advance Directive yes Active Outpatient Medications Status 1) ACCU-CHEK GUIDE [...] 3) ATORVASTATIN CALCIUM 80MG TAB TAKE ONE-HALF TABLET BY ACTIVE (S) MOUTH AT BEDTIME FOR CHOLESTEROL 4) EMPAGLIFLOZIN 25MG TAB TAKE ONE TABLET BY MO UTH EVERY ACTIVE DAY 5) FLUTICASONE 230/SALMET 21MCG 120D INHL INHAL E 1 PUFF ACTIVE BY INHALATION EVERY 12 HOURS RINSE MOUTH AFTER EACH USE; REPLACES SYMBICORT 6) FUROSEMIDE 40MG TAB TAKE ONE TABLET BY MOUTH EVERY ACTIVE DAY 7) GABAPENTIN 300MG CAP TAKE TWO CAPSULES BY MO UTH THREE ACTIVE (S) TIMES A DAY FOR LEG PAIN 8) GLIPIZIDE 10MG TAB TAKE TWO TABLETS BY MOUTH TWICE A ACTIVE DAY TAKE 30 MINUTES BEFORE MEAL FOR DIABETES 9) METFORMIN HCL 1000MG TAB TAKE ONE TABLET BY MOUTH TWO ACTIVE TIMES A DAY FOR DIABETES 10) METOPROLOL SUCCINATE 100MG SA TAB TAKE ONE- HALF ACTIVE TABLET BY MOUTH EVERY DAY FOR HEART 11) NITROGLYCERIN 0.4MG SL TAB DISSOLVE ONE TAB LET UNDER ACTIVE THE TONGUE ONCE FOR CHEST [...] LISTED MISCELLANEOUS C ATS CLAW ACTIVE MOUTH 17 Total Medications MEDICATION MANAGEMENT ASSESSMENT AND ANALYSIS: Level of Understanding: Good /Caregiver knows what the is garcia ing medications for. /Caregiver verbalizes medication side ef fects. [place]/Caregiver is able to verbalize the refi ll process. reports taking medications as prescribe d. does not have any special adaptations f or medication administration at home. The does not get prescriptions from out side providers. Is the taking other medications includi ng over the counter medications? No [place]/caregiver has a current list of active medications. The and/or caregiver does not have ques tions about medications. MEDICATION INTERVENTIONS: Reviewed current list of medications, educated as needed LIVING ARRANGEMENTS/ENVIRONMENTAL SAFETY (as re ported by /Caregiver): Structural barriers in residence: None Safety hazards in residence: None Sanitation hazards in residence: None EDUCATION/LEARNING NEEDS: Barriers to learning: None identified /Caregiver is able to understand verbal instructions. [place]/Caregiver is able to understand written instructions. [place]/Caregiver is able to follow visual inst ructions. [place]/Caregiver has adequate hearing (for Int eractive Voice Response). /Caregiver does not need learning aid. [place]'s/Caregiver's preferred learning method s: Reading Discussion Demonstration ASSESSMENT (SUMMARY OF 'S CURRENT CONDIT ION): active 75 y/o lives with spouse,currently doing well GOALS (determined with [place]/caregiver): to learn/become educated on my disease CARE COORDINATION INTERVENTION PLAN: Disease management protocol HF Other: telephone DISEASE SPECIFIC INTERVENTIONS: Cardiac: Educated on HF [...] medication and sitting quietly for 5-10 minutes Coached patient to avoid tobacco products, caff eine, exercise or ETOH within 30 minutes before checking BP Advised to repeat vital signs when [id number] l ranges and/or not feeling well Coached to be physically active, pace activitie s, and avoid over exertion Provided support and Encouragement Encouraged to report health concerns and/or see k medical attention if needed EMERGENCY MANAGEMENT (DUE TO ENVIRONMENTALLY-RE LATED OR TECHNOLOGY -RELATED EMERGENCIES) - PATIENT CLASSSIFICATION /PRIORITY LEVEL: Level 2 (Moderate Priority) - Need to be evalua susanne within 3-7 days A. Veterans who are able to manage for 3-7 days without HT intervention. Disaster Plan discussed with [place]/Caregiver discussed HT PROGRAM DIAGNOSIS(ES): Heart failure TYPE OF ENCOUNTER: Telephone Length of call: 31-45 minutes /es/ Eloise Wilburn RN Ht Automatic Mounter Signed: 06/26/2021 07:55
--- OUTSIDE RECORDS SUMMARY | 2022-04-02 16:16 | XMS_ITS | Encounter Summary ---
:1945 Author Organization [facility] Address [address] [place] [address] Care Team Providers Name Role Phone CROUCH [...] MEDICARE MEDICARE PART Jun 25, PART B [id number] Saumya QUINONES PATIENT (WNR) (M) B 2011 78A 0 AVID MEDICARE MEDICARE PART Sep 25, PART A [id number] Saumya QUINONES PATIENT (WNR) (M) A 2009 [id number] 0 AVID MEDICARE MEDICARE PART Sep 25, PART A [id number] Saumya MICHELE (WNR) (M) A 2009 [id number] [id number] AVID MEDICARE MEDICARE PART Sep 25, PART B [id number] Saumya MICHELE (WNR) (M) B 2009 [id number] [id number] AVID Selected Encounter This section includes the information on record at [place] for the Encounter. Date/Time Encounter Type Encounter Reason Provider Source Description 2021 Outpatient HT NON-VIDEO ICD-10-CM ELOISE WILBURN 06:55 AM Encounter MONITORING I50.22 Chronic systolic (congestive) heart failure with Provider Comments: Chronic systolic heart failure ([facility] [id number]) IHE Encounter Template Text not used by [facility] Assessments - Encounter Diagnoses This section includes the primary and secondary diagnoses documented for the Encounter. Date/Time Primary/Secondary Diagnosis Name Provider Source Diagnosis 2021 PRIMARY Chronic ELOISE WILBURN [facility] 06:55 AM systolic HCS (congestive) heart failure Plan of Treatment: Future Appointments (+ 6 months) and Future Tests (+/- 45 days) The Plan of Treatment section includes future care activities for the patient from all [place] treatmentfacilities. This section includes future appointments and future orders which are active, pending orscheduled.Future Appointments This section includes appointments that were scheduled to occur 6 months from the date of the Encounter, up to a maximum of 20 appointments. The data comes from all [place] treatment facilities. Appointment Date/Time Appointment Type Appointment Facili ty Name Jul 11, 2021 01:00 PM AMBULATORY - NONE [facility] Jul 26, 2021 09:00 AM AMBULATORY - MEDICINE [facility] Jul 26, 2021 10:30 AM AMBULATORY - NONE [facility] Aug 03, 2021 10:46 AM AMBULATORY - MEDICINE [facility] Aug 08, 2021 07:00 AM AMBULATORY - NONE [facility] Aug 10, 2021 10:30 AM AMBULATORY - NONE [facility] Sep 14, 2021 09:00 AM AMBULATORY - NONE [facility] Sep 21, 2021 09:45 AM AMBULATORY - MEDICINE [facility] Sep 21, 2021 10:00 AM AMBULATORY - MEDICINE [facility] Sep 21, 2021 10:30 AM AMBULATORY - MEDICINE [facility] Sep 21, 2021 11:00 AM AMBULATORY - MEDICINE [facility] Sep 21, 2021 11:30 AM AMBULATORY - MEDICINE [facility] Oct 12, 2021 09:30 AM AMBULATORY - NONE [facility] Nov 02, 2021 08:42 PM AMBULATORY - MEDICINE [facility] Nov 05, 2021 11:30 AM AMBULATORY - MEDICINE [facility] CS Nov 09, 2021 09:30 AM AMBULATORY - NONE [facility] Nov 19, 2021 12:45 PM AMBULATORY - MEDICINE [facility] Nov 21, 2021 10:00 AM AMBULATORY - SURGERY [facility] Nov 29, 2021 06:30 AM AMBULATORY - NONE [facility] Nov 29, 2021 07:30 AM [facility] [place] [facility] [...] the Encounter. The data comes from all [place] treatment facilities. Test Date/Time Test Type Test Details Facility Name Jul 26, 2021 09:16 AM Pharmacy - Clinic Infusion [facility] Order Lab Results: +/- 30 [...] Interpretation Reference Range Comment Jun 18, 2021 [facility] CREATININE(INCLUDES EGFR) Sp ecimen Type: PLASMA 11:52 AM No comment enter ed. Ordering Provid er: SAKSHI CROUCH Report Released Date/Time: Nov 15, 2020 10:48 AM Reporting Lab: [facility] [address] [facility] [id number] Performing Lab: [facility] [address] [facility] [address] CREATININE 1.3 mg/dL H 0.7-1.2 ESTIMATED GFR(eGFR) 54 L >60 Jun 18, 2021 11:52 AM [facility] POTASSIUM Specim en Type: PLASMA No comment enter ed. Ordering Provid er: SAKSHI CROUCH Report Released Date/Time: Nov 15, 2020 10:48 AM Reporting Lab: [facility] [address] [facility] [id number] Performing Lab: [facility] [address] [facility] [address] POTASSIUM 4.0 mmol/L 3.5-5.1 Jun 18, 2021 11:52 AM [facility] CBC Specim en Type: BLOOD No comment enter ed. Ordering Provid er: SAKSHI CROUCH Report Released Date/Time: Nov 15, 2020 10:48 AM Reporting Lab: [facility] [address] [facility] [address] Performing Lab: [facility] [address] [facility] [address] WBC 7.85 10*3/uL 4.0-11.0 RBC 4.96 10*6/uL 4.6-6.2 HGB 16.8 g/dL 13.5-17.9 HCT 51.9 41-54 MCV 104.6 fL H 80-100 MCH 33.9 pg H 27-33 MCHC 32.4 g/dL 32.0-37.5 PLT 98 10*3/uL L 150-400 MPV 14.0 fL H 7.4-10.4 RDW 14.1 11.5-14.5 IPF 17.3 H 0-10 Jun 18, 2021 11:52 AM [facility] HEMOGLOBIN A1C Specim en Type: BLOOD No comment enter ed. Ordering Provid er: SAKSHI CROUCH Report Released Date/Time: Nov 15, 2020 10:48 AM Reporting Lab: [facility] [id number] Performing Lab: [facility] [address] HEMOGLOBIN A1C 8.6 H 4.0-6.0 Jun 18, 2021 11:50 [facility] BASIC METABOLIC Specimen Type: PLASMA AM PANEL+MG No comment enter ed. Ordering Provid er: VICENTE PELAEZ Report Released Date/Time: Feb 19, 2021 01:50 PM Reporting Lab: [facility] [address] Performing Lab: [facility] [address] CREATININE 1.3 mg/dL H 0.7-1.2 UREA NITROGEN [...] smoking and tobacco-related health factors from the [facility] where the Encounter took place.Current Smoking Status This section includes the most current smoking, or tobacco-related health factor, from the [place] facility where the Encounter took place. 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 [facility] Nov 15, 2020 [...] 21, 2019 02:29 PM VA-TOBACCO USE SUPERVISOR [place] [facility] Jun 21, 2019 [...] 09, 2018 03:48 PM VA-TOBACCO USE SUPERVISOR [place] NO [facility] Jun 09, 2018 03:48 PM VA-TOBACCO USE MED NO [place] [facility] Jun 09, 2018 03:48 PM VA-TOBACCO USE [place] 30 MIN OF WAKEUP [facility] Jun 09, 2018 03:48 PM VA-TOBACCO USER EVERY DAY [facility] Jun 20, 2017 07:53 AM CURRENT TOBACCO USER [facility] Jun 19, 2016 08:41 AM CURRENT TOBACCO USER [facility] Jun 21, 2015 08:15 AM CURRENT TOBACCO USER [facility] Mar 22, 2014 10:03 AM CURRENT TOBACCO USER [facility] Mar 25, 2013 11:01 AM CURRENT TOBACCO USER [facility] Feb 05, 2012 08:55 AM CURRENT TOBACCO USER [facility] January 01, 2011 09:26 AM CURRENT TOBACCO USER [facility] Mar 07, 2010 10:02 AM CURRENT TOBACCO USER [facility] Feb 21, 2009 08:17 AM CURRENT TOBACCO USER [facility] Nov 06, 2007 10:02 AM CURRENT TOBACCO USER [facility] January 02, 2007 10:33 AM CURRENT TOBACCO USER [facility] Advance Directives: All historical and [...] Mar 06, 2005 ADVANCE DIRECTIVE GANESH RODRIGUEZ [facility] Radiology Reports: +/- 30 [...] the Encounter. The data comes from all [place] treatment facilities. Date/Time Radiology Report Provider Source Jul 26, 2021 09:06 AM US RIGHT UPPER QUADRANT (P): LAMBERT DHILLON [facility] PAUL MICHELE [id number] -1945 M Exm Date: JUL 26, 2021@09:06 Req Phys: SAKSHI CROUCH Loc: [facility] PACT CLOUD 4E (Req'g Loc) Img Loc: Ultrasound Imaging Service: Unknown (Case [id number] COMPLETE) US ECHOGRAM ABDOMEN LTD (US Detailed) CPT:15103 Proc Modifiers : RIGHT Reason for Study: Chronic thrombocytopenia Clinical History: IS NOT under investigation for COVID-19 or is COVID-19 negative Look for any evident cirrhosis Responsible prov ider name and phone number to notify for critical findings if other than user placing the order and pager listed below: User placing orders pager: [phone] LAST CREATININE 1.3 H (06/18/21) Report Status: Verified Date Reported: JUL 26, 2021 Date Verified: JUL 26, 2021 [place] E-Sig:/ES/JOSE DHILLON MD Report: EXAM: Right upper [...] Primary Interpreting Staff: JOSE DHILLON MD, RADIOLOGIST (Cap [place]er) Primary Interpreting Resident: KIMBERLY GOODSON DO, INDUSTRIAL MAINTENANCE MILLWRIGHT /NVP Encounter Notes: All associated encounter notes This section contains the clinical notes associated to the Encounter. Date/Time Encounter Note(s) Provider Source 2021 06:55 AM CARE COORDINATION [facility] NOTE: ELOISE WILBURN [facility] LOCAL TITLE: HT MONTHLY MONITOR NOTE STANDARD TITLE: CARE COORDINATION HOME TELEHEALT H SUMMARIZATION DATE OF NOTE: 2021@06:55 ENTRY DATE: 2021@06:55:13 AUTHOR: ELOISE WILBURN EXP COSIGNER: URGENCY: STATUS: COMPLETED SUBJECT: Ht Monthly Note The is enrolled in the Home Telehealth ( HT) program and continues to be monitored via HT technology. The data sent by the [place] is reviewed and analyzed by the HT staff, who provide ongoin g case management and [facility] health education while communicating and collaborating with the health care team as appropriate. This note cover s a total of 30 minutes for the month monitored. Month monitored: /billy/ Eloise Wilburn RN Ht Bulk Plant Supervisor Signed: 2021 06:55
--- OUTSIDE RECORDS SUMMARY | 2022-04-02 16:16 | XMS_ITS | Encounter Summary ---
:1945 Author Organization [facility] Address [address] [place] [address] Care Team Providers Name Role Phone CROUCH [...] MEDICARE MEDICARE PART Jun 25, PART B [id number] Saumya QUINONES PATIENT (WNR) (M) B 2011 [id number] 0 AVID MEDICARE MEDICARE PART Sep 25, PART A [id number] Saumya QUINONES PATIENT (WNR) (M) A 2009 [id number] 0 AVID MEDICARE MEDICARE PART Sep 25, PART A [id number] Saumya MICHELE (WNR) (M) A 2009 78A [id number] AVID MEDICARE MEDICARE PART Sep 25, PART B [id number] Saumya MICHELE (WNR) (M) B 2009 78A [id number] AVID Selected Encounter This section includes the information on record at [place] for the Encounter. Date/Time Encounter Type Encounter Reason Provider Source Description Sep 03, 2021 Outpatient HT NON-VIDEO ICD-10-CM ELOISE WILBURN 07:07 AM Encounter MONITORING I50.22 Chronic systolic (congestive) heart failure with Provider Comments: Chronic systolic heart failure ([facility] [id number]) IHE Encounter Template Text not used by [facility] Assessments - Encounter Diagnoses This section includes the primary and secondary diagnoses documented for the Encounter. Date/Time Primary/Secondary Diagnosis Name Provider Source Diagnosis Sep 03, 2021 PRIMARY Chronic ELOISE WILBURN [facility] 07:07 AM systolic HCS (congestive) heart failure Plan of Treatment: Future Appointments (+ 6 months) and Future Tests (+/- 45 days) The Plan of Treatment section includes future care activities for the patient from all [place] treatmentfacilities. This section includes future appointments and future orders which are active, pending orscheduled.Future Appointments This section includes appointments that were scheduled to occur 6 months from the date of the Encounter, up to a maximum of 20 appointments. The data comes from all [place] treatment facilities. Appointment Date/Time Appointment Type Appointment Facili ty Name Sep 14, 2021 09:00 AM AMBULATORY - NONE [facility] Sep 21, 2021 09:45 AM AMBULATORY - MEDICINE [facility] Sep 21, 2021 10:00 AM AM[facility]ULATORY - [facility]ICINE [facility] Sep 21, 2021 10:30 AM [facility] Sep 21, 2021 11:00 AM [facility]UL[facility] - [facility]IC[facility] Sep 21, 2021 11:30 AM AMBULATORY - MEDICINE [facility] Oct 12, 2021 09:30 AM AMBULATORY - NONE [facility] Nov 02, 2021 08:42 PM AMBULATORY - MEDICINE [facility] Nov 05, 2021 11:30 AM AMBULATORY - MEDICINE [facility] Nov 09, 2021 09:30 AM AMBULATORY - NONE [facility] Nov 19, 2021 12:45 PM AMBULATORY - MEDICINE [facility] Nov 21, 2021 10:00 AM AMBULATORY - SURGERY [facility] S Nov 29, 2021 06:30 AM AMBULATORY - NONE [facility] Nov 29, 2021 07:30 AM [facility] Nov 29, 2021 08:00 AM [facility] Dec 21, 2021 09:30 AM AMBULATORY - NONE [facility] January 07, 2022 01:30 PM AMBULATORY - MEDICINE [facility] CS Feb 05, 2022 [...] the Encounter. The data comes from all [facility] facilities. Test Date/Time Test Type Test Details Facility Name Jul 26, 2021 09:16 AM Pharmacy - Clinic Infusion [facility] Order Sep 25, 2021 03:21 PM Pharmacy - Clinic Infusion [facility] Order Lab Results: +/- 30 days of the encounter This section includes the Chemistry and Hematology Lab Results on record with [place] for the patient. Radiology Reports and Pathology [...] [facility] [id number] Performing Lab: [facility] [id number] CREATININE 1.3 mg/dL H 0.7-1.2 UREA NITROGEN [...] 2021 11:24 AM Reporting Lab: [facility] [address] Performing Lab: [facility] [address] HEMOGLOBIN A1C 8.5 H 4.0-6.0 Social History: Smoking Status (Most current) and Tobacco Use (All prior to encounter date) This section includes the most current, and the historical, smoking and tobacco-related health factors from the [place] facility where the Encounter took place.Current Smoking Status This section includes the most current smoking, or tobacco-related health factor, from the [place] facility where the Encounter took place. Date/Time Current Smoking Status Comment Facility Mar 20, 2021 11:21 AM VA-VAAES TOBACCO USE CURRENT NRT [facility] DECLINE Tobacco Use History This section includes a history of the smoking, or tobacco- related health factors, that were collected on or before the date of the Encounter. The data comes from the [place] facility where the Encounter took place. Date/Time Smoking Status/Tobacco Use Comment 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 [facility] Nov 15, 2020 10:00 AM [facility] Nov 15, 2020 10:00 AM VA-TOBACCO USER EVERY DAY [facility] Jun 21, 2019 02:29 PM VA-TOBACCO USE 30 YEARS OR MORE [facility] Jun 21, 2019 02:29 PM [facility] Jun 21, 2019 02:29 PM VA-TOBACCO USE PATTERNMAKER METAL NO [facility] Jun 21, 2019 02:29 PM VA-TOBACCO USE [place] [facility] Jun 21, 2019 02:29 PM VA-TOBACCO USE [place] 30 MIN OF WAKEUP [facility] Jun 21, 2019 02:29 PM VA-TOBACCO USER EVERY DAY [facility] Jun 09, 2018 03:48 PM VA-TOBACCO USE 30 YEARS OR MORE [facility] Jun 09, 2018 03:48 PM [facility]ACCO [facility] Jun 09, 2018 03:48 PM VA-TOBACCO USE PATTERNMAKER METAL NO [facility] Jun 09, 2018 03:48 PM [facility] Jun 09, 2018 03:48 PM VA-TOBACCO USE [place] 30 MIN OF WAKEUP [facility] Jun 09, 2018 03:48 PM VA-TOBACCO USER EVERY DAY [facility] Jun 20, 2017 07:53 AM CURRENT TOBACCO USER [facility] Jun 19, 2016 08:41 AM CURRENT TOBACCO USER [facility] Jun 21, 2015 08:15 AM CURRENT TOBACCO USER [facility] Mar 22, 2014 10:03 AM CURRENT TOBACCO USER [facility] Mar 25, 2013 11:01 AM CURRENT TOBACCO USER [facility] Feb 05, 2012 08:55 AM CURRENT TOBACCO USER [facility] January 01, 2011 09:26 AM CURRENT TOBACCO USER [facility] Mar 07, 2010 10:02 AM CURRENT TOBACCO USER [facility] Feb 21, 2009 08:17 AM CURRENT TOBACCO USER [facility] Nov 06, 2007 10:02 AM CURRENT TOBACCO USER [facility] January 02, 2007 10:33 AM CURRENT TOBACCO USER [facility] Advance Directives: All historical and current Section Date Range: From patient's date of to the date document was created. This section includes ALL of a patient's completed or amended [place] Advance and Rescinded Directives. The entries below indicate that a directive exists for the patient, but an actual copy is not included with this document. The data comes from all [place] facilities. Date Advance Directives Provider Source Mar 06, 2005 ADVANCE DIRECTIVE MICHAELGANESH [facility] Encounter Notes: All associated encounter notes This section contains the clinical notes associated to the Encounter. Date/Time Encounter Note(s) Provider Source Sep 03, 2021 07:07 AM CARE COORDINATION HOME TELEHEALTH [facility] NOTE: ELOISE WILBURN [facility] LOCAL TITLE: HT MONTHLY MONITOR NOTE STANDARD TITLE: CARE COORDINATION HOME TELEHEALT H SUMMARIZATION DATE OF NOTE: SEP 03, 2021@07:07 ENTRY DATE: SEP 03, 2021@07:07:14 AUTHOR: ELOISE WILBURN EXP COSIGNER: URGENCY: STATUS: COMPLETED SUBJECT: Ht Monthly Note The [place] is enrolled in the Home Telehealth ( HT) program and continues to be monitored via HT technology. The data sent by the [place] is reviewed and analyzed by the staff, who provide ongoin g case management and health education while communicating and collaborating with the health care team as appropriate. This note cover s a total of 30 minutes for the month monitored. Month monitored: /es/ Eloise Wilburn RN Ht Kindergarten Classroom Teacher Signed: 09/03/2021 07:08
--- OUTSIDE RECORDS SUMMARY | 2022-04-02 16:16 | XMS_ITS | Encounter Summary ---
:1945 Author Organization [facility] Address [address] [place], [place] [id number] Support Name Relationship Address Phone NIDIA MICHELE Unavailable [address] [place] [address] NIDIA MICHELE Unavailable [address] [place] [address] Insurance Providers: All historical and current Section [...] MEDICARE MEDICARE PART Jun 25, PART B [id number] Saumya QUINONES PATIENT (WNR) (M) B 2011 78A 0 AVID MEDICARE MEDICARE PART Sep 25, PART A [id number] Saumya QUINONES PATIENT (WNR) (M) A 2009 78A 0 AVID MEDICARE MEDICARE PART Sep 25, PART A [id number] Saumya MICHELE (WNR) (M) A 2009 78A [id number] AVID MEDICARE MEDICARE PART Sep 25, PART B [id number] Saumya MICHELE (WNR) (M) B 2009 78A [id number] AVID Selected Encounter This section includes the information on record at [place] for the Encounter. Date/Time Encounter Type Encounter Description Reason Provider Source Jul 31, 2021 12:30 Outpatient Encounter PRIMARY CARE/MEDICINE PM IHE Encounter [...] 20 appointments. The data comes from all [facility]. Appointment Date/Time Appointment Type Appointment Facili ty Name Aug 03, 2021 10:46 AM AMBULATORY - MEDICINE [facility] Aug 08, 2021 07:00 AM AMBULATORY - NONE [facility] Aug 10, 2021 10:30 AM AMBULATORY - NONE [facility] Sep 14, 2021 09:00 AM AMBULATORY - NONE [facility] Sep 21, 2021 09:45 AM AMBULATORY - MEDICINE [facility] Sep 21, 2021 10:00 AM AMBULATORY - MEDICINE [facility] Sep 21, 2021 10:30 AM AMBULATORY - MEDICINE [facility] Sep 21, 2021 11:00 AM AMBULATORY - MEDICINE [facility] Sep 21, 2021 11:30 AM AMBULATORY - MEDICINE [facility] Oct 12, 2021 09:30 AM AMBULATORY - NONE [facility] Nov 02, 2021 08:42 PM AMBULATORY - MEDICINE [facility] Nov 05, 2021 11:30 AM AMBULATORY - MEDICINE [facility] Nov 09, 2021 09:30 AM AMBULATORY - NONE [facility] Nov 19, 2021 12:45 PM AMBULATORY - MEDICINE [facility] Nov 21, 2021 10:00 AM AMBULATORY - SURGERY [facility] Nov 29, 2021 06:30 AM AMBULATORY - NONE [facility] Nov 29, 2021 07:30 AM AMBULATORY - MEDICINE [facility] Nov 29, 2021 08:00 AM AMBULATORY - MEDICINE [facility] Dec 21, 2021 09:30 AM AMBULATORY - NONE [facility] January 07, 2022 01:30 PM AMBULATORY - MEDICINE [facility] Active, Pending, and Scheduled Orders This section includes a listing of several types of active, pending, and scheduled orders, including clinic medications orders, diagnostic test orders, procedure orders and consult orders; where the start date of the order is 45 days before the date of the Encounter or 45 days after the date of the Encounter. The data comes from all [facility]. Test Date/Time Test Type Test Details Facility Name Jul 26, 2021 09:16 AM Pharmacy - Clinic Infusion [facility] Order Social History: Smoking Status (Most current) [...] 11:21 AM VA-VAAES TOBACCO USE CURRENT NRT [facility] DECLINE Tobacco Use History This section includes a history of the smoking, or tobacco- related health factors, that were collected on or before the date of the Encounter. The data comes from the [place] facility where the Encounter took place. 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 [facility] Nov 15, 2020 10:00 AM VA-TOBACCO USE MED NO [place] [facility] Nov 15, 2020 10:00 AM VA-TOBACCO USER EVERY DAY [facility] Jun 21, 2019 02:29 PM VA-TOBACCO USE 30 YEARS OR MORE [facility] Jun 21, 2019 02:29 PM VA-TOBACCO USE ADVICE [place] [facility] Jun 21, 2019 02:29 PM 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 [facility] Jun 21, 2019 02:29 PM VA-TOBACCO USE MED NO [place] [facility] Jun 21, 2019 02:29 PM VA-TOBACCO USE [place] 30 MIN OF WAKEUP [facility] Jun 21, 2019 02:29 PM VA-TOBACCO USER EVERY DAY [facility] Jun 09, 2018 03:48 PM VA-TOBACCO USE 30 YEARS OR MORE [facility] Jun 09, 2018 03:48 PM VA-TOBACCO USE ADVICE [place] [facility] Jun 09, 2018 03:48 PM 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 The data comes from all [place] treatment facilities. Date/Time Radiology Report Provider Source Jul 26, 2021 09:06 AM US RIGHT UPPER QUADRANT (P): LAMBERT DHILLON [facility] PAUL MICHELE [id number] -1945 M Exm Date: JUL 26, 2021@09:06 Req Phys: SAKSHI CROUCH Loc: [facility] (Req'g Loc) Img Loc: Ultrasound Imaging Service: Unknown (Case 2006 COMPLETE) US ECHOGRAM ABDOMEN LTD (US Detailed) CPT:66796 Proc Modifiers : RIGHT Reason for Study: Chronic thrombocytopenia Clinical History: Emmet IS NOT under investigation for COVID-19 or is COVID-19 negative Look for any evident cirrhosis Responsible prov ider name and phone number to notify for critical findings if other than user placing the order and pager listed below: User placing orders pager: [phone] LAST CREATININE 1.3 H (06/18/21) Report Status: Verified Date Reported: JUL 26, 2021 Date Verified: JUL 26, 2021 Press Tender Incendiary Grenade E-Sig:/ES/JOSE DHILLON MD Report: EXAM: Right upper [...] Primary Interpreting Staff: JOSE DHILLON MD, RADIOLOGIST (Press Tender Incendiary Grenade) Primary Interpreting Resident: KIMBERLY GOODSON DO, FOOD AND BEVERAGE SERVICE MANAGER /NVP Encounter Notes: All associated encounter notes This section contains the clinical notes associated to the Encounter. Date/Time Encounter Note(s) Provider Source Jul 31, 2021 12:30 PM LETTERS: SAKSHI CROUCH [facility] LOCAL TITLE: FOLLOW UP RESULTS LETTER STANDARD TITLE: LETTERS DATE OF NOTE: JUL 31, 2021@12:30 ENTRY DATE: JUL 31, 2021@12:30:56 AUTHOR: SAKSHI CROUCH EXP COSIGNER: URGENCY: STATUS: COMPLETED [facility] [address] [place] [address] Jul PAUL Kevin RYNE [address] [place] [address] Dear Emmet: I am writing to inform you of the results of the tests you had done at the [facility]. The tests below were performed and are satisfactory unless otherwise noted. Comments: liver ultrasound done 07-26-21 looking for any signs of liver cirrhosis as a cause for low platelets did not s how any definite evidence for that. You have had low platelets as far back as our records here go (2002). In that time it has not really changed/worsened. If you have any further questions or problems, tiffanie landrum contact our nursing staff or me at the following number: . Sincerely, SAKSHI CROUCH MD STAFF PHYSICIAN
--- OUTSIDE RECORDS SUMMARY | 2022-04-02 16:17 | XMS_ITS | Encounter Summary ---
:1945 Author Organization Department [facility] Address [address] [place] [id number] Care Team Providers Name Role Phone JOSHI [...] MEDICARE MEDICARE PART Jun 25, PART B [id number] Saumya QUINONES PATIENT (WNR) (M) B 2011 78A 0 AVID MEDICARE MEDICARE PART Sep 25, PART A [id number] Saumya QUINONES PATIENT (WNR) (M) A 2009 78A 0 AVID MEDICARE MEDICARE PART Sep 25, PART A [id number] Saumya MICHELE (WNR) (M) A 2009 78A [id number] AVID MEDICARE MEDICARE PART Sep 25, PART B [id number] Saumya MICHELE (WNR) (M) B 2009 78A [phone] AVID Selected Encounter This section includes the information on record at [place] for the Encounter. Date/Time Encounter Type Encounter Description Reason Provider Source Jun 06, 2021 12:11 Outpatient Encounter PRIMARY CARE/MEDICINE PM IHE Encounter Template Text not used by [place] Plan of Treatment: Future Appointments (+ 6 months) and Future Tests (+/- 45 days) The Plan of Treatment section includes future care activities for the patient from all [place] [facility]. This section includes future appointments and future orders which are active, pending orscheduled.Future Appointments This section includes appointments that were scheduled to occur 6 months from the date of the Encounter, up to a maximum of 20 appointments. The data comes from all [place] treatment facilities. Appointment Date/Time Appointment Type Appointment Facili ty Name Jun 13, 2021 02:00 PM AMBULATORY - NONE [facility] Jun 18, 2021 12:45 PM AMBULATORY - NONE [facility] Jun 18, 2021 01:30 PM AMBULATORY - MEDICINE [facility] Jun 20, 2021 10:00 AM AMBULATORY - MEDICINE [facility] Jul 11, 2021 01:00 PM AMBULATORY - NONE [facility] Jul 26, 2021 09:00 AM AMBULATORY - MEDICINE [facility] Jul 26, 2021 10:30 AM AMBULATORY - NONE [facility] Aug 03, 2021 10:46 AM AMBULATORY - MEDICINE [facility] Aug 08, 2021 07:00 AM AMBULATORY - NONE [facility] Aug 10, 2021 10:30 AM AMBULATORY - NONE [facility] Sep 14, 2021 09:00 AM AMBULATORY - NONE [facility] Sep 21, 2021 09:45 AM AMBULATORY - MEDICINE [facility] Sep 21, 2021 10:00 AM AMBULATORY - MEDICINE [facility] Sep 21, 2021 10:30 AM AMBULATORY - MEDICINE [facility] Sep 21, 2021 11:00 AM AMBULATORY - MEDICINE [facility] Sep 21, 2021 11:30 AM AMBULATORY - MEDICINE [facility] Oct 12, 2021 09:30 AM AMBULATORY - NONE [facility] Nov 02, 2021 08:42 PM AMBULATORY - MEDICINE [facility] Nov 05, 2021 11:30 AM AMBULATORY - MEDICINE [facility] Nov 09, 2021 09:30 AM AMBULATORY - NONE [facility] Lab Results: +/- 30 days of [...] Interpretation Reference Range Comment Jun 18, 2021 [facility] CREATININE(INCLUDES EGFR) Sp ecimen Type: PLASMA 11:52 AM No comment enter ed. Ordering Provid er: SAKSHI JOSHI Report Released Date/Time: Nov 15, 2020 10:48 AM Reporting Lab: [facility] [phone] Performing Lab: [facility] [address] CREATININE 1.3 mg/dL H 0.7-1.2 ESTIMATED GFR(eGFR) 54 L >60 Jun 18, 2021 11:52 AM [facility] POTASSIUM Specim en Type: PLASMA No comment enter ed. Ordering Provid er: SAKSHI JOSHI Report Released Date/Time: Nov 15, 2020 10:48 AM Reporting Lab: [facility] [id number] Performing Lab: [facility] [address] POTASSIUM 4.0 mmol/L 3.5-5.1 Jun 18, 2021 11:52 AM [facility] CBC Specim en Type: BLOOD No comment enter ed. Ordering Provid er: SAKSHI JOSHI Report Released Date/Time: Nov 15, 2020 10:48 AM Reporting Lab: [facility] [address] Performing Lab: [facility] [address] WBC 7.85 10*3/uL 4.0-11.0 RBC 4.96 10*6/uL 4.6-6.2 HGB 16.8 g/dL 13.5-17.9 HCT 51.9 41-54 MCV 104.6 fL H 80-100 MCH 33.9 pg H 27-33 MCHC 32.4 g/dL 32.0-37.5 PLT 98 10*3/uL L 150-400 MPV 14.0 fL H 7.4-10.4 RDW 14.1 11.5-14.5 IPF 17.3 H 0-10 Jun 18, 2021 11:52 AM [facility] HEMOGLOBIN A1C Specim en Type: BLOOD No comment enter ed. Ordering Provid er: SAKSHI JOSHI Report Released Date/Time: Nov 15, 2020 10:48 AM Reporting Lab: [facility] [address] [facility] [id number] Performing Lab: [facility] [address] HEMOGLOBIN A1C 8.6 H 4.0-6.0 Jun 18, 2021 11:50 [facility] BASIC METABOLIC Specimen Type: PLASMA AM PANEL+MG No comment enter ed. Ordering Provid er: VICENTE PELAEZ Report Released Date/Time: Feb 19, 2021 01:50 PM Reporting Lab: [facility] [address] [facility] [address] Performing Lab: [facility] [address] [facility] [address] CREATININE 1.3 mg/dL H 0.7-1.2 UREA NITROGEN [...] 11:21 AM AR-VAAES TOBACCO USE CURRENT NRT [facility] DECLINE Tobacco Use History This section includes a history of the smoking, or tobacco- related health factors, that were collected on or before the date of the Encounter. The data comes from the [place] facility where the Encounter took place. 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 [facility] Nov 15, 2020 10:00 AM VA-TOBACCO USE MED NO [place] [facility] Nov 15, 2020 10:00 AM VA-TOBACCO USER EVERY DAY [facility] Jun 21, 2019 02:29 PM VA-TOBACCO USE 30 YEARS OR MORE [facility] Jun 21, 2019 02:29 PM VA-TOBACCO USE [facility]ICE [facility] Jun 21, 2019 02:29 PM 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 [facility] Jun 21, 2019 02:29 PM [facility]CO [facility] Jun 21, 2019 02:29 PM VA-TOBACCO USE [place] 30 MIN OF WAKEUP [facility] Jun 21, 2019 02:29 PM VA-TOBACCO USER EVERY DAY [facility] Jun 09, 2018 03:48 PM VA-TOBACCO USE 30 YEARS OR MORE [facility] Jun 09, 2018 03:48 PM [facility]CO [facility] Jun 09, 2018 03:48 PM 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 [facility] Jun 09, 2018 03:48 PM [facility]ACCO [facility] Jun 09, 2018 03:48 PM VA-TOBACCO USE [place] 30 MIN OF WAKEUP [facility] Jun 09, 2018 03:48 PM VA-TOBACCO USER EVERY DAY [facility] Jun 20, 2017 07:53 AM CURRENT TOBACCO USER [facility] Jun 19, 2016 08:41 AM CURRENT TOBACCO USER [facility] Jun 21, 2015 08:15 AM CURRENT TOBACCO USER [facility] Mar 22, 2014 10:03 AM CURRENT TOBACCO USER [facility] Mar 25, 2013 11:01 AM CURRENT TOBACCO USER [facility] Feb 05, 2012 08:55 AM CURRENT TOBACCO USER [facility] January 01, 2011 09:26 AM CURRENT TOBACCO USER [facility] Mar 07, 2010 10:02 AM CURRENT TOBACCO USER [facility] Feb 21, 2009 08:17 AM CURRENT TOBACCO USER [facility] Nov 06, 2007 10:02 AM CURRENT TOBACCO USER [facility] January 02, 2007 10:33 AM CURRENT TOBACCO USER [facility] Advance Directives: All historical and current [...] Mar 06, 2005 ADVANCE DIRECTIVE GANESH RODRIGUEZ [facility] Encounter Notes: All associated encounter notes This section contains the clinical notes associated to the Encounter. Date/Time Encounter Note(s) Provider Source Jun 06, 2021 12:11 PM HOME HEALTH REFERRAL NOTE: EDY COPPOLA [facility] LOCAL TITLE: [facility] CARE STANDARD TITLE: HOME HEALTH REFERRAL NOTE DATE OF NOTE: JUN 06, 2021@12:11 ENTRY DATE: JUN 06, 2021@12:11:14 AUTHOR: EDY COPPOLA EXP COSIGNER: URGENCY: STATUS: COMPLETED HOME HEALTH CARE CERTIFICATION AND PLAN OF CARE SIGNED BY: Dr. joshi.. 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
--- OUTSIDE RECORDS SUMMARY | 2022-04-02 16:17 | XMS_ITS | Encounter Summary ---
:1945 Author Organization Department [facility] Address [address] [place] [id number] Care Team Providers Name Role Phone WILLA [...] MEDICARE MEDICARE PART Jun 25, PART B [id number] Saumya QUINONES PATIENT (WNR) (M) B 2011 78A 0 AVID MEDICARE MEDICARE PART Sep 25, PART A [id number] Saumya QUINONES PATIENT (WNR) (M) A 2009 78A 0 AVID MEDICARE MEDICARE PART Sep 25, PART A [id number] Saumya MICHELE (WNR) (M) A 2009 [id number] AVID MEDICARE MEDICARE PART Sep 25, PART B [id number] Saumya MICHELE (WNR) (M) B 2009 [id number] AVID Selected Encounter This section includes the information on record at [facility] for the Encounter. Date/Time Encounter Type Encounter Reason Provider Source Description Jun 19, 2021 TELEMONITORING/H TELEPHONE/MEDICINE ICD-10-CM GREGOR WILBURN 11:55 AM OME PER [facility] I50.22 Chronic systolic (congestive) heart failure with Provider Comments: Chronic systolic heart failure ([facility] [id number]) IHE Encounter Template Text not used by [facility] Assessments - Encounter Diagnoses This section includes the primary and secondary diagnoses documented for the Encounter. 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 This section includes future appointments and future orders which are active, pending orscheduled.Future Appointments This section includes appointments that were scheduled to occur 6 months from the date of the Encounter, up to a maximum of 20 appointments. The data comes from all [facility] treatment facilities. Appointment Date/Time Appointment Type Appointment Facili ty Name Jun 20, 2021 10:00 AM AMBULATORY - MEDICINE [facility] Jul 11, 2021 01:00 PM AMBULATORY - NONE [facility] Jul 26, 2021 09:00 AM AMBULATORY - MEDICINE [facility] Jul 26, 2021 10:30 AM AMBULATORY - NONE [facility] Aug 03, 2021 10:46 AM AMBULATORY - MEDICINE [facility] Aug 08, 2021 07:00 AM AMBULATORY - NONE [facility] Aug 10, 2021 10:30 AM AMBULATORY - NONE [facility] Sep 14, 2021 09:00 AM AMBULATORY - NONE [facility] Sep 21, 2021 09:45 AM AMBULATORY - MEDICINE [facility] Sep 21, 2021 10:00 AM AMBULATORY - MEDICINE [facility] Sep 21, 2021 10:30 AM AMBULATORY - MEDICINE [facility] Sep 21, 2021 11:00 AM AMBULATORY - MEDICINE [facility] Sep 21, 2021 11:30 AM AMBULATORY - MEDICINE [facility] Oct 12, 2021 09:30 AM AMBULATORY - NONE [facility] Nov 02, 2021 08:42 PM AMBULATORY - MEDICINE [facility] Nov 05, 2021 11:30 AM AMBULATORY - MEDICINE [facility] Nov 09, 2021 09:30 AM AMBULATORY - NONE [facility] Nov 19, 2021 12:45 PM AMBULATORY - MEDICINE [facility] Nov 21, 2021 10:00 AM AMBULATORY - SURGERY [facility] Nov 29, 2021 06:30 AM AMBULATORY [...] data comes from all [facility] treatment facilities. Test Date/Time Test Type Test Details Facility Name Jul 26, 2021 09:16 AM Pharmacy - Clinic Infusion [facility] Order Lab Results: +/- 30 [...] Interpretation Reference Range Comment Jun 18, 2021 [facility] CREATININE(INCLUDES EGFR) Sp ecimen Type: PLASMA 11:52 AM No comment enter ed. Ordering Provid er: SAKSHI CROUCH Report Released Date/Time: Nov 15, 2020 10:48 AM Reporting Lab: [facility] [address] [facility] [id number] Performing Lab: [facility] [address] [facility] [address] CREATININE 1.3 mg/dL H 0.7-1.2 ESTIMATED GFR(eGFR) 54 L >60 Jun 18, 2021 11:52 AM [facility] POTASSIUM Specim en Type: PLASMA No comment enter ed. Ordering Provid er: SAKSHI CROUCH Report Released Date/Time: Nov 15, 2020 10:48 AM Reporting Lab: [facility] [address] [facility] [address] Performing Lab: [facility] [address] [facility] [address] POTASSIUM 4.0 mmol/L 3.5-5.1 Jun 18, 2021 11:52 AM [facility] CBC Specim en Type: BLOOD No comment enter ed. Ordering Provid er: SAKSHI CROUCH Report Released Date/Time: Nov 15, 2020 10:48 AM Reporting Lab: [facility] [address] [facility] [address] Performing Lab: [facility] [address] WBC 7.85 10*3/uL 4.0-11.0 RBC 4.96 10*6/uL 4.6-6.2 HGB 16.8 g/dL 13.5-17.9 HCT 51.9 41-54 MCV 104.6 fL H 80-100 MCH 33.9 pg H 27-33 MCHC 32.4 g/dL 32.0-37.5 PLT 98 10*3/uL L 150-400 MPV 14.0 fL H 7.4-10.4 RDW 14.1 11.5-14.5 IPF 17.3 H 0-10 Jun 18, 2021 11:52 AM [facility] HEMOGLOBIN A1C Specim en Type: BLOOD No comment enter ed. Ordering Provid er: SAKSHI CROUCH Report Released Date/Time: Nov 15, 2020 10:48 AM Reporting Lab: [facility] [address] Performing Lab: [facility] [address] HEMOGLOBIN A1C 8.6 H 4.0-6.0 Jun 18, 2021 11:50 [facility] BASIC METABOLIC Specimen Type: PLASMA AM PANEL+MG No comment enter ed. Ordering Provid er: VICENTE PELAEZ Report Released Date/Time: Feb 19, 2021 01:50 PM Reporting Lab: [facility] [address] Performing Lab: [facility] [address] CREATININE 1.3 mg/dL H 0.7-1.2 UREA NITROGEN [...] NRT [facility] DECLINE Tobacco Use History This section includes a history of the smoking, or tobacco- related health factors, that were collected on or before the date of the Encounter. The data comes from the [facility] facility where the Encounter took place. 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 [facility] Nov 15, 2020 10:00 AM VA-TOBACCO USE MED NO [facility] Nov 15, 2020 10:00 AM VA-TOBACCO USER EVERY DAY [facility] Jun 21, 2019 02:29 PM VA-TOBACCO USE 30 YEARS OR MORE [facility] Jun 21, 2019 02:29 PM [facility]ACCO [facility]VICE [facility] Jun 21, 2019 02:29 PM 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 [facility] Jun [...] Jun 09, 2018 03:48 PM 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 [facility] Jun 09, 2018 03:48 PM VA-TOBACCO USE MED NO [place] [facility] Jun 09, 2018 03:48 PM VA-TOBACCO USE WI 30 MIN OF WAKEUP [facility] Jun 09, 2018 03:48 PM VA-TOBACCO USER EVERY DAY [facility] Jun 20, 2017 07:53 AM CURRENT TOBACCO USER [facility] Jun 19, 2016 08:41 AM CURRENT TOBACCO USER [facility] Jun 21, 2015 08:15 AM CURRENT TOBACCO USER [facility] Mar 22, 2014 10:03 AM CURRENT TOBACCO USER [facility] Mar 25, 2013 11:01 AM CURRENT TOBACCO USER [facility] Feb 05, 2012 08:55 AM CURRENT TOBACCO USER [facility] January 01, 2011 09:26 AM CURRENT TOBACCO USER [facility] Mar 07, 2010 10:02 AM CURRENT TOBACCO USER [facility] Feb 21, 2009 08:17 AM CURRENT TOBACCO USER [facility] Nov 06, 2007 10:02 AM CURRENT TOBACCO USER [facility] January 02, 2007 10:33 AM CURRENT TOBACCO USER [facility] Advance Directives: All historical and current [...] GANESH RODRIGUEZ [facility] Encounter Notes: All associated encounter notes This section contains the clinical notes associated to the Encounter. Date/Time Encounter Note(s) Provider Source Jun 19, 2021 12:00 PM CARE COORDINATION HOME TELEHEALTH CONSULT: ELOISE WILBURN [facility] LOCAL TITLE: HT SCREENING CONSULT STANDARD TITLE: CARE COORDINATION HOME TELEHEALT H CONSULT DATE OF NOTE: JUN 19, 2021@12:00 ENTRY DATE: JUN 19, 2021@12:00:24 AUTHOR: ELOISE WILBURN EXP COSIGNER: URGENCY: STATUS: COMPLETED SUBJECT: Ht Screening Note HOME TELEHEALTH (HT) SCREENING CONSULT [place] is interested in participating in the H T program.--Self referred TELEHEALTH SUITABILITY: Clinical Indications for Telehealth: Chronic disease management: Congestive Heart Failure-- called heron parra [facility] Hume/Caregiver Capabilities: Able to see and read text Able to hear Manual dexterity (able to push monitor keys) Able to understand and follow directions Willingness to try; positive, enthusiastic atti tude toward technology Supportive other (care provider) if the [place] is unable to independently use equipment Connectivity: Mobile phone Features/Accessories connected to the telephone that may affect connectivity: None Adequate privacy (for video encounters) HOME TELEHEALTH PROGRAM ASSESSMENT: meets criteria for enrollment in Home T elehealth. Home Telehealth device type: In Home Messaging Device (IHMD) Comment: [employer] TYPE OF ENCOUNTER: Telephone Length of call: 21-30 minutes /billy/ Eloise Wilburn RN [employer] Signed: 06/19/2021 12:03 Receipt Acknowledged By: * AWAITING SIGNATURE * VICENTE PELAEZ * AWAITING SIGNATURE * EDITH GONSALEZ * AWAITING SIGNATURE * SAKSHI CROUCH
--- OUTSIDE RECORDS SUMMARY | 2022-04-02 16:17 | XMS_ITS | Encounter Summary ---
:1945 Author Organization Department [facility] Address [address] [place] [id number] Care Team Providers Name Role Phone SAKSHI [...] MEDICARE MEDICARE PART Jun 25, PART B [id number] Saumya QUINONES PATIENT (WNR) (M) B 2011 78A 0 AVID MEDICARE MEDICARE PART Sep 25, PART A [id number] Saumya QUINONES PATIENT (WNR) (M) A 2009 78A 0 AVID MEDICARE MEDICARE PART Sep 25, PART A [id number] Saumya MICHELE ATIENT (WNR) (M) A 2009 [id number] [id number] AVID MEDICARE MEDICARE PART Sep 25, PART B [id number] Saumya MICHELE ATIENT (WNR) (M) B 2009 [id number] [phone] AVID Selected Encounter This section includes the information on record at [place] for the Encounter. Date/Time Encounter Type Encounter Reason Provider Source Description Jun 20, 2021 OFFICE O/P EST PRIMARY ICD-10-CM E11.9 SAKSHI CROUCH 10:00 AM LOW 20-29 MIN CARE/MEDICINE Type 2 diabetes R mellitus without complications with Provider Comments: Type 2 diabetes mellitus ([facility] [id number]) IHE Encounter Template Text not used by [facility] Assessments - Encounter Diagnoses This section includes the primary and secondary diagnoses documented for the Encounter. 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 Jun 20, 2021 SECONDARY Chronic systolic SAKSHI CROUCH [place] 10:28 AM (congestive) heart R HCS failure Jun 20, 2021 SECONDARY Essential (primary) SAKSHI CROUCH [facility] 10:28 AM hypertension R HCS Jun 20, 2021 SECONDARY Other persistent SAKSHI CROUCH [place] 10:28 AM atrial fibrillation R HCS Jun 20, 2021 SECONDARY Polyneuropathy in SAKSHI CROUCH [place] 10:28 AM diseases classified R HCS elsewhere Jun 20, 2021 SECONDARY Thrombocytopenia, SAKSHI CROUCH [facility] 10:28 AM unspecified R HCS Jun 20, 2021 SECONDARY Tobacco use SAKSHI CROUCH [place] 10:28 AM R HCS Plan of Treatment: Future Appointments (+ 6 months) and Future Tests (+/- 45 days) The Plan of Treatment section includes future care activities for the patient from all [place] treatmentfacilities. This section includes future appointments and future orders which are active, pending orscheduled.Future Appointments This section includes appointments that were scheduled to occur 6 months from the date of the Encounter, up to a maximum of 20 appointments. The data comes from all [place] treatment facilities. Appointment Date/Time Appointment Type Appointment Facili ty Name Jul 11, 2021 01:00 PM AMBULATORY - NONE [facility] Jul 26, 2021 09:00 AM AMBULATORY - MEDICINE [facility] Jul 26, 2021 10:30 AM AMBULATORY - NONE [facility] Aug 03, 2021 10:46 AM AMBULATORY - MEDICINE [facility] Aug 08, 2021 07:00 AM AMBULATORY - NONE [facility] Aug 10, 2021 10:30 AM AMBULATORY - NONE [facility] Sep 14, 2021 09:00 AM AMBULATORY - [facility] Sep 21, 2021 09:45 AM AMBULATORY - MEDICINE [facility] Sep 21, 2021 10:00 AM AMBULATORY - MEDICINE [facility] Sep 21, 2021 10:30 AM AMBULATORY - MEDICINE [facility] Sep 21, 2021 11:00 AM AMBULATORY - MEDICINE [facility] Sep 21, 2021 11:30 AM AMBULATORY - MEDICINE [facility] Oct 12, 2021 09:30 AM AMBULATORY - NONE [facility] Nov 02, 2021 08:42 PM AMBULATORY - MEDICINE [facility] Nov 05, 2021 11:30 AM AMBULATORY - MEDICINE [facility] Nov 09, 2021 09:30 AM AMBULATORY - NONE [facility] Nov 19, 2021 12:45 PM AMBULATORY - MEDICINE [facility] Nov 21, 2021 10:00 AM AMBULATORY - SURGERY [facility] Nov 29, 2021 06:30 AM AMBULATORY - NONE [facility] Nov 29, 2021 07:30 AM AMBULATORY - MEDICINE [facility] Active, Pending, and Scheduled [...] data comes from all [place] treatment facilities. Test Date/Time Test Type Test Details Facility Name Jul 26, 2021 09:16 AM Pharmacy - Clinic Infusion [facility] Order Lab Results: +/- 30 [...] Interpretation Reference Range Comment Jun 18, 2021 [facility] CREATININE(INCLUDES EGFR) Sp ecimen Type: PLASMA 11:52 AM No comment enter ed. Ordering Provid er: SAKSHI CROUCH Report Released Date/Time: Nov 15, 2020 10:48 AM Reporting Lab: [facility] [address] [place] [facility] [id number] Performing Lab: [facility] [address] [facility] [id number] CREATININE 1.3 mg/dL H 0.7-1.2 ESTIMATED GFR(eGFR) 54 L >60 Jun 18, 2021 11:52 AM [facility] POTASSIUM Specim en Type: PLASMA No comment enter ed. Ordering Provid er: SAKSHI CROUCH Report Released Date/Time: Nov 15, 2020 10:48 AM Reporting Lab: [facility] [address] [facility] [id number] Performing Lab: [facility] [address] [employer] [phone] POTASSIUM 4.0 mmol/L 3.5-5.1 Jun 18, 2021 11:52 AM [facility] CBC Specim en Type: BLOOD No comment enter ed. Ordering Provid er: SAKSHI CROUCH Report Released Date/Time: Nov 15, 2020 10:48 AM Reporting Lab: [facility] [address] [facility] [phone] Performing Lab: [facility] [address] [employer] [facility] [id number] WBC 7.85 10*3/uL 4.0-11.0 RBC 4.96 10*6/uL 4.6-6.2 HGB 16.8 g/dL 13.5-17.9 HCT 51.9 41-54 MCV 104.6 fL H 80-100 MCH 33.9 pg H 27-33 MCHC 32.4 g/dL 32.0-37.5 PLT 98 10*3/uL L 150-400 MPV 14.0 fL H 7.4-10.4 RDW 14.1 11.5-14.5 IPF 17.3 H 0-10 Jun 18, 2021 11:52 AM [facility] HEMOGLOBIN A1C Specim en Type: BLOOD No comment enter ed. Ordering Provid er: SAKSHI CROUCH Report Released Date/Time: Nov 15, 2020 10:48 AM Reporting Lab: [facility] [address] [employer] [facility] [phone] Performing Lab: [facility] [address] [employer] [facility] [phone] HEMOGLOBIN A1C 8.6 H 4.0-6.0 Jun 18, 2021 11:50 [facility] BASIC METABOLIC Specimen Type: PLASMA AM PANEL+MG No comment enter ed. Ordering Provid er: VICENTE PELAEZ Report Released Date/Time: Feb 19, 2021 01:50 PM Reporting Lab: [facility] [address] [employer] [phone] Performing Lab: [facility] [address] [employer] [phone] CREATININE 1.3 mg/dL H 0.7-1.2 UREA NITROGEN 15 mg/dL 8-26 GLUCOSE 205 mg/dL H 74-100 SODIUM 142 mmol/L 136-145 POTASSIUM 4.1 mmol/L 3.5-5.1 CHLORIDE 106 mmol/L 98-107 CO2 26 mmol/L 22-29 CALCIUM 9.5 mg/dL 8.4-10.2 MAGNESIUM 2.2 mg/dL 1.6-2.6 ANION GAP 10 mmol/L 5-15 ESTIMATED GFR(eGFR) 54 L >60 Vital Signs: All taken on the encounter date This section contains inpatient and outpatient Vital Signs collected on the date of the Encounter. Date/Time Temperature Pulse Blood Respiratory SP02 Pain Height Weight Axel dy Source Pressure Rate Mass Index Jun 20, 98.6 F 88 114/79 18 /min 96 % 1 230.4 30 [place] 2020 09:36 /min mm[Hg] lb [facility] Social History: Smoking Status (Most current) [...] Nov 15, 2020 10:00 AM VA-TOBACCO USE GRADUATE INTERNSHIP NO [facility] Nov 15, 2020 10:00 AM VA-TOBACCO USE MED NO [place] [facility] Nov 15, 2020 10:00 AM VA-TOBACCO USER EVERY DAY [facility] Jun 21, 2019 02:29 PM VA-TOBACCO USE 30 YEARS OR MORE [facility] Jun 21, 2019 02:29 PM VA-TOBACCO USE ADVICE [facility] Jun 21, 2019 02:29 PM VA-TOBACCO USE GRADUATE INTERNSHIP NO [facility] Jun 21, 2019 02:29 PM [facility]ACCO USE [facility] Jun 21, 2019 02:29 PM VA-TOBACCO USE WI 30 MIN OF WAKEUP [facility] Jun 21, 2019 02:29 PM VA-TOBACCO USER EVERY DAY [facility] Jun 09, 2018 03:48 PM VA-TOBACCO USE 30 YEARS OR MORE [facility] Jun 09, 2018 03:48 PM VA-TOBACCO USE ADVICE [facility] Jun 09, 2018 03:48 PM VA-TOBACCO USE GRADUATE INTERNSHIP NO [facility] Jun 09, 2018 03:48 PM VA-TOBACCO USE MED NO [facility] Jun 09, 2018 03:48 PM VA-TOBACCO [...] ADVANCE DIRECTIVE GANESH RODRIGUEZ [facility] Encounter Notes: All associated encounter notes This section contains the clinical notes associated to the Encounter. Date/Time Encounter Note(s) Provider Source Jun 20, 2021 09:51 AM INTERNAL MEDICINE NOTE: SAKSHI CROUCH [place] [facility] LOCAL TITLE: MEDICINE CLINIC NOTE STANDARD TITLE: INTERNAL MEDICINE NOTE DATE OF NOTE: JUN 20, 2021@09:51 ENTRY DATE: JUN 20, 2021@09:51:14 AUTHOR: SAKSHI CROUCH EXP COSIGNER: URGENCY: STATUS: COMPLETED S/ 75 y.o. man here in follow up of a DM, ASCVD, HTN, AF and PN. nurse note reviewed. Here alone. Says priscilla triana has been feeling pretty good in general. Offers no complaints. Denies dyspnea with ordinary exertions. No anginal symptoms. Still smoking but has cut to rough ly 1/2-3/4 PPD. Home glucose readings in past month range 114-201. No hypoglycemic symptoms recalled . Home BP's past month range 113-168 with about 75-80% in goal range. Past Medical History: 1. Ischemic cardiomyopathy. - S/P ICD placement in 2011. - Echo(12/2020 ANW) EF 23%. LAE, mod global hyok [place]. 2. ASCVD. - S/P inferior [place] in 1993. - S/P atherectomy/PTCA of RCA in 1993. - S/P CABG x 3 in 2010 (ANW). 3. Atrial fibrillation. 4. Type 2 diabetes. 5. Hypertension. 6. COPD. - FEV1/FVC (2010 ANW) 2.47/3.46. FEV1 58% pred. FEV1% 70. 7. Tobacco use. 8. Hyperlipidemia. 9. Chronic thrombocytopenia. 10. Chronic low back pain. 11. History of adenomatous colon polyps. - By 2017 colonoscopy. 12. Status post left inguinal hernia repair. 13. Status post abdominal wall leiomyoma resecti on. O/ VS: Temp: 98.6 F [37.0 C] (06/20/2021 09:36) BP: 114/79 (06/20/2021 09:36) Pulse:88 (06/20/2021 09:36) Resp: 18 (06/20/2021 09:36) Weight: 230.4 lb [104.7 kg] (06/20/2021 09:36) Pain: 1 (06/20/2021 09:36) O2 Sat: 96 (06/20/2021 09:36) BMI: 30.5 Lungs- clear CV- Irr Normal S1 S2 w/o murmur Abd- nontender, normal liver span Ext- no edema Lab Data: SODIUM 142 (06/18/21) POTASSIUM 4.0 (06/18/21) CHLORIDE 106 (06/18/21) CO2 26 (06/18/21) UREA NITROGEN 15 (06/18/21) CREATININE 1.3 H (06/18/21) GLUCOSE 205 H (06/18/21) CALCIUM 9.5 (06/18/21) MAGNESIUM 2.2 (06/18/21) WBC 7.85 (06/18/21) HGB 16.8 (06/18/21) MCV 104.6 H (06/18/21) PLT 98 L (06/18/21) HGB A1C 8.6 % H (06/18/21) Medications: Active Outpatient Medications (including Supplie s): Active Outpatient Medications Status 1) ALBUTEROL 90MCG (CFC-F) 200D ORAL INHL INHALE 2 PUFFS ACTIVE BY INHALATION FOUR TIMES A DAY NEEDED FOR SHORTNESS OF BREATH *SHAKE WELL* (FOR IMMEDIATE RELIEF) 2) APIXABAN 5MG TAB TAKE ONE TABLET BY MOUTH SAMI RY 12 ACTIVE HOURS TO PREVENT BLOOD CLOTS, STROKE 3) ATORVASTATIN CALCIUM 80MG TAB TAKE ONE-HALF T ABLET BY ACTIVE MOUTH AT BEDTIME FOR CHOLESTEROL 4) EMPAGLIFLOZIN 25MG TAB TAKE ONE TABLET BY FLORY TH EVERY ACTIVE DAY 5) FLUTICASONE 230/SALMET 21MCG 120D INHL INHALE [...] METOPROLOL SUCCINATE 100MG SA TAB TAKE ONE-H PRISON ACTIVE TABLET BY MOUTH EVERY DAY FOR [...] FOR NUTRITION Pending Outpatient Medications Status 1) ACCU-CHEK GUIDE (GLUCOSE) TEST STRIP USE [address] RIP PENDING TOPICALLY EVERY DAY TO CHECK BLOOD SUGAR--USE WITHIN 3 MINUTES OF REMOVING FROM CONTAINER T EST AT DIFFERENT TIMES OF THE DAY OR DIRECTED Active Non-VA Medications Status 1) Non-VA ASCORBIC ACID 500MG TAB 1000MG EVERY D AY ACTIVE 2) Non-VA MARINE LIPID (FISH OIL) CAP,ORAL MOUTH ACTIVE 3) Non-VA MULTIVITAMINS CAP/TAB MOUTH ACTIVE 4) Non-VA NON VA MED NOT LISTED MISCELLANEOUS CA TS CLAW ACTIVE MOUTH Comments: MEDICATION RECONCILIATION Outpatient At this visit I have reviewed the medication li st, and discussed relevant medications with the patient/surrogate . An updated patient medication list was given to the participant(s). No Change A/P 1. DM- has improved considerably since adding se maglutide. He brings all AM fasting readings. In past month there has been a steady improvement in those readings such that most now in 110-150 range. PACT pharmacist has been managing. 2. HTN- continues on medication regimen largely targetting ischemic cardiomyopathy. Control reasonable at current do ses. 3. ASCVD- no ongoing anginal symptoms. 4. Chronic systolic heart failure- a repeat echo is scheduled 07-26-21. [facility]. 5. AF- consideration being given to rhyt hm control depending to some degree on upcoming echo result. 6. Tobacco- remains at a low motivation level to quit. He is pleased to have managed to cut down under 1 PPD currently. 7. PN- gabapentin working reasonably well at cur rent dose. 8. Thrombocytopenia- chronic . Cause not clear. He is not known to have cirrhosis but has never had direct seda ging (prior low dose chest CT's have shown parts of liver those studies not ideal for the purpose). Has not had any LFT abnormalities to date. Will obtain RUQ at [facility] re appt date. /es/ SAKSHI CROUCH MD STAFF PHYSICIAN Signed: 06/20/2021 10:28 Jun 20, 2021 09:39 AM INTERNAL MEDICINE OUTPATIENT NOTE: GORAN JONES [facility] LOCAL TITLE: MEDICINE CLINIC NURSING NOTE STANDARD TITLE: INTERNAL MEDICINE OUTPATIENT NOT E DATE OF NOTE: JUN 20, 2021@09:39 ENTRY DATE: JUN 20, 2021@09:39:40 AUTHOR: GORAN ALVARENGA EXP COSIGNER: URGENCY: STATUS: COMPLETED TYPE OF VISIT: Appointment Check In Type of appointment: In-person appointment REASON FOR VISIT: Annual check-up ALLERGIES: LISINOPRIL (Nov 09, 2007) VITAL SIGNS: Blood Pressure: 114/79 (06/20/2021 09:36) Pulse: 88 (06/20/2021 09:36) Respiration: 18 (06/20/2021 09:36) Temperature: 98.6 F [37.0 C] (06/20/2021 09:36) Weight: 230.4 lb [104.7 kg] (06/20/2021 09:36) Height: 73 in [185.4 cm] (06/18/2021 12:53) BMI: 30.5 O2 Sat: 96 (06/20/2021 09:36) Pain: 1 (06/20/2021 09:36) PAIN SCREEN: Patient is having significant pain that they wo uld like to talk to their provider about today. Old (Chronic) (began more than 6 months ago) Patient states their average pain this past wee k is 2 Patient states the average number on how the ch ronic pain affects their enjoyment of life the past week is 2 Patient states during the past week the average number on how the pain has interfered with their general activity is 2 Pain Education Patient indicates readiness to learn and verbal izes understanding of the following: Managing Your Chronic Pain, Regaini ng Control of Your Life handout given Has concerns/questions, advised to discuss with provider MEDICATION Over the Counter/Herbal Medications: The patient states that they take some outside medications and/or herbals. CHF Weight Monitoring Educ/[place]: CHF and Weight Monitoring Education Brochure Guidelines for Weighing Yourself When You Have Congestive Heart Failure given to patient at this visit. Brochu re includes content that advises patient to: 1. Weigh themselves daily. 2. Keep a record of daily weights. 3. Call provider if weight changes > 2 lbs over night. 4. Call provider if weight changes > 3 lbs in a week. Patient has no questions. Level of Understanding: Good COVID-19 Immunization: Pfizer COVID-19 Vaccine given previously Patient received a prior dose of the Pfizer COV ID-19 Vaccine. Date: May 28, 2021 Series: Series 3 [facility] GORAN ALVARENGA LPN LPN Signed: 06/20/2021 09:44
--- OUTSIDE RECORDS SUMMARY | 2022-04-02 16:17 | XMS_ITS | Encounter Summary ---
:1945 Author Organization Department [facility] Address [address] [place] [address] Care Team Providers Name Role Phone CROUCH [...] MEDICARE MEDICARE PART Jun 25, PART B [id number] Saumya QUINONES PATIENT (WNR) (M) B 2011 78A 0 AVID MEDICARE MEDICARE PART Sep 25, PART A [id number] Saumya QUINONES PATIENT (WNR) (M) A 2009 78A 0 AVID MEDICARE MEDICARE PART Sep 25, PART A [id number] Saumya MICHELE (WNR) (M) A 2009 78A [id number] AVID MEDICARE MEDICARE PART Sep 25, PART B [id number] Saumya MICHELE ATTHOMAS (WNR) (M) B 2009 78A [id number] AVID Selected Encounter This section includes the information on record at [place] for the Encounter. Date/Time Encounter Type Encounter Description Reason Provider Source Jun 26, 2021 12:00 Outpatient Encounter EVENT (HISTORICAL) AM IHE Encounter Template Text not used by [place] Plan of Treatment: Future Appointments (+ 6 months) and Future Tests (+/- 45 days) The Plan of Treatment section includes future care activities for the patient from all [place] This section includes future appointments and future orders which are active, pending orscheduled.Future Appointments This section includes appointments that were scheduled to occur 6 months from the date of the Encounter, up to a maximum of 20 appointments. The data comes from all [place] treatment [facility]. Appointment Date/Time Appointment Type Appointment Facili ty Name Jul 11, 2021 01:00 PM AMBULATORY - NONE [facility] Jul 26, 2021 09:00 AM AMBULATORY - MEDICINE [facility] Jul 26, 2021 10:30 AM AMBULATORY - NONE [facility] Aug 03, 2021 10:46 AM AMBULATORY - MEDICINE [facility] Aug 08, 2021 07:00 AM AMBULATORY - NONE [facility] Aug 10, 2021 10:30 AM AMBULATORY - NONE [facility] Sep 14, 2021 09:00 AM AMBULATORY - NONE [facility] Sep 21, 2021 09:45 AM AMBULATORY - MEDICINE [facility] Sep 21, 2021 10:00 AM AMBULATORY - MEDICINE [facility] Sep 21, 2021 10:30 AM AMBULATORY - MEDICINE [facility] Sep 21, 2021 11:00 AM AMBULATORY - MEDICINE [facility] Sep 21, 2021 11:30 AM AMBULATORY - MEDICINE [facility] Oct 12, 2021 09:30 AM AMBULATORY - NONE [facility] Nov 02, 2021 08:42 PM AMBULATORY - MEDICINE [facility] Nov 05, 2021 11:30 AM AMBULATORY - MEDICINE [facility] Nov 09, 2021 09:30 AM AMBULATORY - NONE [facility] Nov 19, 2021 12:45 PM AMBULATORY - MEDICINE [facility] Nov 21, 2021 10:00 AM AMBULATORY - SURGERY [facility] Nov 29, 2021 06:30 AM AMBULATORY - NONE [facility] Nov 29, 2021 07:30 AM AMBULATORY - MEDICINE [facility] Active, Pending, and [...] The data comes from all [place] treatment [facility]. Test Date/Time Test Type Test Details Facility Name Jul 26, 2021 09:16 AM Pharmacy - Clinic Infusion [facility] Order Lab Results: +/- 30 days of [...] Interpretation Reference Range Comment Jun 18, 2021 [facility] CREATININE(INCLUDES EGFR) Sp ecimen Type: PLASMA 11:52 AM No comment enter ed. Ordering Provid er: SAKSHI CROUCH Report Released Date/Time: Nov 15, 2020 10:48 AM Reporting Lab: [facility] [id number] Performing Lab: [facility] [address] CREATININE 1.3 mg/dL H 0.7-1.2 ESTIMATED GFR(eGFR) 54 L >60 Jun 18, 2021 11:52 AM [facility] POTASSIUM Specim en Type: PLASMA No comment enter ed. Ordering Provid er: SAKSHI CROUCH Report Released Date/Time: Nov 15, 2020 10:48 AM Reporting Lab: [facility] [address] [facility] [address] Performing Lab: [facility] [address] POTASSIUM 4.0 mmol/L 3.5-5.1 Jun 18, 2021 11:52 AM [facility] CBC Specim en Type: BLOOD No comment enter ed. Ordering Provid er: SAKSHI CROUCH Report Released Date/Time: Nov 15, 2020 10:48 AM Reporting Lab: [facility] [address] [facility] [address] Performing Lab: [facility] [address] WBC 7.85 10*3/uL 4.0-11.0 RBC 4.96 10*6/uL 4.6-6.2 HGB 16.8 g/dL 13.5-17.9 HCT 51.9 41-54 MCV 104.6 fL H 80-100 MCH 33.9 pg H 27-33 MCHC 32.4 g/dL 32.0-37.5 PLT 98 10*3/uL L 150-400 MPV 14.0 fL H 7.4-10.4 RDW 14.1 11.5-14.5 IPF 17.3 H 0-10 Jun 18, 2021 11:52 AM [facility] HEMOGLOBIN A1C Specim en Type: BLOOD No comment enter ed. Ordering Provid er: SAKSHI CROUCH Report Released Date/Time: Nov 15, 2020 10:48 AM Reporting Lab: [facility] [address] [facility] [address] Performing Lab: [facility] [address] [facility] [address] HEMOGLOBIN A1C 8.6 H 4.0-6.0 Jun 18, 2021 11:50 [facility] BASIC METABOLIC Specimen Type: PLASMA AM PANEL+MG No comment enter ed. Ordering Provid er: VICENTE PELAEZ Report Released Date/Time: Feb 19, 2021 01:50 PM Reporting Lab: [facility] [address] [facility] [address] Performing Lab: [facility] [address] [facility] [address] CREATININE 1.3 mg/dL H 0.7-1.2 UREA NITROGEN [...] tobacco-related health factors from the [facility] where the Encounter took place.Current Smoking Status This section includes the most current smoking, or tobacco-related health factor, from the [place] facility where the Encounter took place. 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 [facility] Nov 15, 2020 10:00 AM VA-TOBACCO USE MED NO [place] [facility] Nov 15, 2020 10:00 AM VA-TOBACCO USER EVERY DAY [facility] Jun 21, 2019 02:29 PM VA-TOBACCO USE 30 YEARS OR MORE [facility] Jun 21, 2019 02:29 PM VA-TOBACCO USE ADVICE [place] [facility] Jun 21, 2019 02:29 PM VA-TOBACCO USE 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 [facility] Jun 21, 2019 [...] 03:48 PM VA-TOBACCO USE ADVICE [place] [facility] Jun 09, 2018 03:48 PM VA-TOBACCO USE 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 [facility] Jun 09, 2018 03:48 PM VA-TOBACCO USE MED NO [place] [facility] Jun 09, 2018 03:48 PM VA-TOBACCO USE WI 30 MIN OF WAKEUP [facility] Jun 09, 2018 03:48 PM VA-TOBACCO USER EVERY DAY [facility] Jun 20, 2017 07:53 AM CURRENT TOBACCO USER [facility] [facility] Jun 19, 2016 08:41 AM [facility] Jun 21, 2015 08:15 AM CURRENT [facility]ACCO USER [facility] Mar 22, 2014 10:03 AM CURRENT [facility]BACCO USER [facility] Mar 25, 2013 11:01 AM CURRENT TOBACCO USER [facility] Feb 05, 2012 08:55 AM CURRENT [facility]BACCO USER [facility] January 01, 2011 09:26 AM CURRENT TOBACCO USER [facility] Mar 07, 2010 10:02 AM CURRENT TOBACCO USER [facility] Feb 21, 2009 08:17 AM CURRENT TOBACCO USER [facility] Nov 06, 2007 10:02 AM CURRENT [...] LAMBERT DHILLON [facility] PAUL MICHELE [id number] -1945 M Exm Date: JUL 26, 2021@09:06 Req Phys: SAKSHI CROUCH Loc: [facility] 4E (Req'g Loc) Img Loc: Ultrasound Imaging Service: Unknown (Case 2006 COMPLETE) US ECHOGRAM ABDOMEN LTD (US Detailed) CPT:39701 Proc Modifiers : RIGHT Reason for Study: Chronic thrombocytopenia Clinical History: IS NOT under investigation for COVID-19 or is COVID-19 negative Look for any evident cirrhosis Responsible prov ider name and phone number to notify for critical findings if other than user placing the order and pager listed below: User placing orders pager: [phone] LAST CREATININE 1.3 H (06/18/21) Report Status: Verified Date Reported: JUL 26, 2021 Date Verified: JUL 26, 2021 Economics Instructor E-Sig:/ES/JOSE DHILLON MD Report: EXAM: Right upper [...] Primary Interpreting Staff: JOSE DHILLON MD, RADIOLOGIST (Economics Instructor) Primary Interpreting Resident: KIMBERLY GOODSON DO, CLASSIFIED COPY CONTROL CLERK /NVP
--- OUTSIDE RECORDS SUMMARY | 2022-04-02 16:17 | XMS_ITS | Encounter Summary ---
:1945 Author Organization Department [facility] Address [address] [place] [address] Care Team Providers Name Role Phone WILLA [...] MEDICARE MEDICARE PART Jun 25, PART B [id number] Saumya QUINONES PATIENT (WNR) (M) B 2011 78A 0 AVID MEDICARE MEDICARE PART Sep 25, PART A [id number] Saumya QUINONES PATIENT (WNR) (M) A 2009 [id number] 0 AVID MEDICARE MEDICARE PART Sep 25, PART A [id number] Saumya IMCHELE (WNR) (M) A 2009 78A [id number] AVID MEDICARE MEDICARE PART Sep 25, PART B [id number] Saumya MICHELE (WNR) (M) B 2009 78A [phone] AVID Selected Encounter This section includes the information on record at MD for the Encounter. Date/Time Encounter Type Encounter Reason Provider Source Description Jun 13, 2021 HC PRO PHONE TELEPHONE PRIMARY ICD-10-CM E11.9 JETT SAMS 02:00 PM CALL 11-20 MIN CARE Type 2 diabetes AN L mellitus without complications with Provider Comments: Type 2 diabetes mellitus ([facility] [id number]) IHE Encounter Template Text not used by MD Assessments - Encounter Diagnoses This section includes the primary and secondary diagnoses documented for the Encounter. Date/Time Primary/Secondary Diagnosis Name Provider Source Diagnosis Jun 13, 2021 PRIMARY Type 2 diabetes JETT SAMS [facility] 02:00 PM mellitus without AN L [facility] complications Plan of Treatment: Future Appointments (+ 6 months) and Future Tests (+/- 45 days) The Plan of Treatment section includes future care activities for the patient from all MD treatmentfacilities. This section includes future appointments and future orders which are active, pending orscheduled.Future Appointments This section includes appointments that were scheduled to occur 6 months from the date of the Encounter, up to a maximum of 20 appointments. The data comes from all MD treatment facilities. Appointment Date/Time Appointment Type Appointment Facili ty Name Jun 18, 2021 12:45 PM AMBULATORY - [...] 03, 2021 10:46 AM AMBULATORY - MEDICINE [facility] Aug 08, 2021 07:00 AM AMBULATORY - NONE [facility] Aug 10, 2021 10:30 AM AMBULATORY [...] AMBULATORY - MEDICINE [facility] Oct 12, 2021 09:30 AM AMBULATORY - NONE [facility] Nov 02, 2021 08:42 PM AMBULATORY - MEDICINE [facility] Nov 05, 2021 11:30 AM AMBULATORY - MEDICINE [facility] Nov 09, 2021 09:30 AM AMBULATORY - NONE [facility] Nov 19, 2021 12:45 PM AMBULATORY - MEDICINE [facility] Active, Pending, and Scheduled Orders [...] The data comes from all MD treatment facilities. Test Date/Time Test Type Test Details Facility Name Jul 26, 2021 09:16 AM Pharmacy - Clinic Infusion [facility] [...] Interpretation Reference Range Comment Jun 18, 2021 [facility] CREATININE(INCLUDES EGFR) Sp ecimen Type: PLASMA 11:52 AM No comment enter ed. Ordering Provid er: SAKSHI CROUCH Report Released Date/Time: Nov 15, 2020 10:48 AM Reporting Lab: [facility] [address] [facility] [address] Performing Lab: [facility] [address] [facility] [address] CREATININE 1.3 mg/dL H 0.7-1.2 ESTIMATED GFR(eGFR) 54 L >60 Jun 18, 2021 11:52 AM [facility] POTASSIUM Specim en Type: PLASMA No comment enter ed. Ordering Provid er: SAKSHI CROUCH Report Released Date/Time: Nov 15, 2020 10:48 AM Reporting Lab: [facility] [address] [facility] [address] Performing Lab: [facility] [address] [facility] [address] POTASSIUM 4.0 mmol/L 3.5-5.1 Jun 18, 2021 11:52 AM [facility] CBC Specim en Type: BLOOD No comment enter ed. Ordering Provid er: SAKSHI CROUCH Report Released Date/Time: Nov 15, 2020 10:48 AM Reporting Lab: [facility] [address] [facility] [address] Performing Lab: [facility] [address] [facility] [address] WBC 7.85 10*3/uL 4.0-11.0 RBC 4.96 10*6/uL 4.6-6.2 HGB 16.8 g/dL 13.5-17.9 HCT 51.9 41-54 MCV 104.6 fL H 80-100 MCH 33.9 pg H 27-33 MCHC 32.4 g/dL 32.0-37.5 PLT 98 10*3/uL L 150-400 MPV 14.0 fL H 7.4-10.4 RDW 14.1 11.5-14.5 IPF 17.3 H 0-10 Jun 18, 2021 11:52 AM [facility] HEMOGLOBIN A1C Specim en Type: BLOOD No comment enter ed. Ordering Provid er: SAKSHI CROUCH Report Released Date/Time: Nov 15, 2020 10:48 AM Reporting Lab: [facility] [address] Performing Lab: [facility] [address] HEMOGLOBIN A1C 8.6 H 4.0-6.0 Jun 18, 2021 11:50 [facility] BASIC METABOLIC Specimen Type: PLASMA AM PANEL+MG No comment enter ed. Ordering Provid er: VICENTE PELAEZ Report Released Date/Time: Feb 19, 2021 01:50 PM Reporting Lab: [facility] [address] Performing Lab: [facility] [address] CREATININE 1.3 mg/dL H 0.7-1.2 UREA NITROGEN [...] smoking and tobacco-related health factors from the [facility] where the Encounter took place.Current Smoking Status This section includes the most current smoking, or tobacco-related health factor, from the [place] facility where the Encounter took place. Date/Time Current Smoking Status Comment Facility Mar 20, 2021 11:21 AM [facility] TOBACCO USE CURRENT NRT [facility] DECLINE Tobacco Use History This section includes a history of the smoking, or tobacco- related health factors, that were collected on or before the date of the Encounter. The data comes from the [place] facility where the Encounter took place. Date/Time Smoking Status/Tobacco Use Comment Facil ity Nov 15, 2020 10:00 AM VA-TOBACCO DOESNT USE WI 30 MIN [facility] WAKEUP Nov 15, 2020 10:00 AM VA-TOBACCO USE 30 YEARS OR MORE [facility] Nov 15, 2020 10:00 AM VA-TOBACCO USE ADVICE [place] [facility] Nov 15, 2020 10:00 AM VA-TOBACCO USE DEVELOPMENT TEAM LEAD NO [facility] Nov 15, 2020 10:00 AM VA-TOBACCO USE MED NO [place] [facility] Nov 15, 2020 10:00 AM VA-TOBACCO USER EVERY DAY [facility] Jun 21, 2019 02:29 PM VA-TOBACCO USE 30 YEARS OR MORE [facility] Jun 21, 2019 02:29 PM VA-TOBACCO USE ADVICE [place] [facility] Jun 21, 2019 02:29 PM VA-TOBACCO USE DEVELOPMENT TEAM LEAD NO [facility] Jun 21, 2019 02:29 PM VA-TOBACCO USE MED NO [place] [facility] Jun 21, 2019 02:29 PM VA-TOBACCO USE WI 30 MIN OF WAKEUP [facility] Jun 21, 2019 02:29 PM VA-TOBACCO USER EVERY DAY [facility] Jun 09, 2018 03:48 PM VA-TOBACCO USE 30 YEARS OR MORE [facility] Jun 09, 2018 03:48 PM VA-TOBACCO USE ADVICE [place] [facility] Jun 09, 2018 03:48 PM VA-TOBACCO USE DEVELOPMENT TEAM LEAD NO [facility] Jun 09, 2018 03:48 PM VA-TOBACCO USE MED NO [place] [facility] Jun 09, 2018 03:48 PM VA-TOBACCO USE WI 30 MIN OF WAKEUP [facility] Jun 09, 2018 03:48 PM VA-TOBACCO USER EVERY DAY [facility] Jun 20, 2017 07:53 AM CURRENT TOBACCO USER [facility] Jun 19, 2016 08:41 AM CURRENT TOBACCO USER [facility] Jun 21, 2015 08:15 AM CURRENT TOBACCO USER [facility] Mar 22, 2014 10:03 AM CURRENT TOBACCO USER [facility] Mar 25, 2013 11:01 AM CURRENT TOBACCO USER [facility] Feb 05, 2012 08:55 AM CURRENT TOBACCO USER [facility] January 01, 2011 09:26 AM CURRENT TOBACCO USER [facility] Mar 07, 2010 10:02 AM CURRENT TOBACCO USER [facility] Feb 21, 2009 08:17 AM CURRENT TOBACCO USER [facility] Nov 06, 2007 10:02 AM CURRENT TOBACCO USER [facility] January 02, 2007 10:33 AM CURRENT TOBACCO USER [facility] Advance Directives: All historical and [...] Source Mar 06, 2005 ADVANCE DIRECTIVE MICHAELGANESH [facility] Encounter Notes: All associated encounter notes This section contains the clinical notes associated to the Encounter. Date/Time Encounter Note(s) Provider Source Jun 13, 2021 02:04 PM RETREAD BUILDER NOTE: JAYY SAMS [facility] LOCAL TITLE: DIABETES RETREAD BUILDER NOTE STANDARD TITLE: RETREAD BUILDER NOTE DATE OF NOTE: JUN 13, 2021@14:04 ENTRY DATE: JUN 13, 2021@14:04:47 AUTHOR: JAYY SAMS EXP COSIGNER: URGENCY: STATUS: COMPLETED PAUL MICHELE is a 75 YO MALE followed by [facility] for medication management. SUBJECTIVE: reports he is doing well. He has started the higher dose semaglutide. He isn't completely sure how ma ny doses he has given, however, has noticed that his blood sugars have been improving with it. He has noticed they are now down in the 120-130's. He missed one dose a few weeks ago, so now his girlfriend calls and reminds him to take it. He denies any side e ffects with the medication so far. ROS: (-) hypoglycemia symptoms (-) hyperglycemia symptoms SMBG Readings: Date AM Noon PM HS Notes 187 209 174 184 195 177 156 187 129 165 201 114 155 142 164 128 187 125 133 134 139 MEDICATION RECONCILIATION: Active and Recently Outpatient Medicatio [...] FOR DIABETES -REFRIGERATE -MULTIPLE DOSES PER PEN *confirms given 2 or 3 doses of the 1.0 mg dos e 15) VITAMIN B COMPLEX CAP TAKE 1 [...] MOUTH 19 Total Medications Adherence to medications: missed his semaglutide OBJECTIVE: ALLERGIES/ADR: LISINOPRIL (Nov 09, 2007) Vitals: [...] ESTIMATED GFR(eGF 43 L R ef: >=60 !! Indicates COMMENTS AVAILABLE...Refer to Inter [...] per [facility]D dian vargas. Last A1C above goal. SMBG have improved in the last few weeks a nd are at goal on high dose semaglutide. Tolerating therapy at this time. No hypoglycemia. Reasonable to continue current regimen. If any hypoglycemia oc curs, may consider reducing glipizide. Encouraged to set phone alarms t o aid adherence with weekly injection. PLAN: - Continue Metformin 1000 mg 1 tablet twice yulia y - Continue Empagliflozin 25 mg 1 tablet daily - Continue Glipizide 10 mg 2 tablets twice daily - Continue Semaglutide 1.0 mg qweek #Disease-Specific Med Rec: Completed today #Labs: A1C (scheduled with PCP on 06/18) - Educated vet on indication/risks/benefits of n ew/changed medication. - Education provided on therapeutic nonpharmacol ogic management to achieve goals. - Vet advised of recent labs. - [place] verbalized underst anding to all plans discussed today. Questions were answered to vet's satisfaction. Time spent: () 5-10 minutes () 11-20 minutes (x) 21-30 minutes RTC: 07/11@14:00 /billy/ JAYY SAMS Pharmacist Signed: 06/13/2021 14:27
--- OUTSIDE RECORDS SUMMARY | 2022-04-02 16:17 | XMS_ITS | Encounter Summary ---
:1945 Author Organization [facility] Address [address] [place] [id number] Care Team Providers Name Role Phone CROUCH [...] MEDICARE MEDICARE PART Jun 25, PART B [id number] Saumya QUINONES PATIENT (WNR) (M) B 2011 78A 0 AVID MEDICARE MEDICARE PART Sep 25, PART A [id number] Saumya QUINONES PATIENT (WNR) (M) A 2009 78A 0 AVID MEDICARE MEDICARE PART Sep 25, PART A [id number] Saumya MICHELE (WNR) (M) A 2009 78A [id number] AVID MEDICARE MEDICARE PART Sep 25, PART B [id number] Saumya MICHELE ATTHOMAS (WNR) (M) B 2009 [id number] AVID Selected Encounter This section includes the information on record at [place] for the Encounter. Date/Time Encounter Type Encounter Description Reason Provider Source May 28, 2021 12:00 Outpatient Encounter EVENT (HISTORICAL) AM IHE Encounter Template Text not used by [place] Plan of Treatment: Future Appointments (+ 6 months) and Future Tests (+/- 45 days) The Plan of Treatment section includes future care activities for the [facility] [place] [facility]. This section includes future appointments and [...] 02:00 PM AMBULATORY - NONE [facility] Jun 18, 2021 12:45 PM AMBULATORY - NONE [facility] Jun 18, 2021 01:30 PM AMBULATORY - MEDICINE [facility] Jun 20, 2021 10:00 AM AMBULATORY - MEDICINE [facility] Jul 11, 2021 01:00 PM AMBULATORY - NONE [facility] Jul 26, 2021 09:00 AM AMBULATORY - MEDICINE [facility] Jul 26, 2021 10:30 AM AMBULATORY - NONE [facility] Aug 03, 2021 10:46 AM AMBULATORY - MEDICINE [facility] Aug 08, 2021 07:00 AM AMBULATORY - NONE [facility] Aug 10, 2021 10:30 AM AMBULATORY - NONE [facility] Sep 14, 2021 09:00 AM AMBULATORY - NONE [facility] Sep 21, 2021 09:45 AM AMBULATORY [...] 09:30 AM AMBULATORY - NONE [facility] Nov 02, 2021 08:42 PM AMBULATORY - MEDICINE [facility] Nov 05, 2021 11:30 AM AMBULATORY - MEDICINE [facility] Nov 09, 2021 09:30 AM AMBULATORY - NONE [facility] Lab Results: +/- 30 days of [...] Interpretation Reference Range Comment Jun 18, 2021 [facility] CREATININE(INCLUDES EGFR) Sp ecimen Type: PLASMA 11:52 AM No comment enter ed. Ordering Provid er: SAKSHI CROUCH Report Released Date/Time: Nov 15, 2020 10:48 AM Reporting Lab: [facility] [address] [facility] [id number] Performing Lab: [facility] [address] [facility] [id number] CREATININE 1.3 mg/dL H 0.7-1.2 ESTIMATED GFR(eGFR) 54 L >60 Jun 18, 2021 11:52 AM [facility] POTASSIUM Specim en Type: PLASMA No comment enter ed. Ordering Provid er: SAKSIH CROUCH Report Released Date/Time: Nov 15, 2020 10:48 AM Reporting Lab: [facility] [id number] Performing Lab: [facility] [address] POTASSIUM 4.0 mmol/L 3.5-5.1 Jun 18, 2021 11:52 AM [facility] CBC Specim en Type: BLOOD No comment enter ed. Ordering Provid er: SAKSHI CROUCH Report Released Date/Time: Nov 15, 2020 10:48 AM Reporting Lab: [facility] [address] [facility] [facility] [phone] Performing Lab: [facility] [address] [id number] WBC 7.85 10*3/uL 4.0-11.0 RBC 4.96 10*6/uL 4.6-6.2 HGB 16.8 g/dL 13.5-17.9 HCT 51.9 41-54 MCV 104.6 fL H 80-100 MCH 33.9 pg H 27-33 MCHC 32.4 g/dL 32.0-37.5 PLT 98 10*3/uL L 150-400 MPV 14.0 fL H 7.4-10.4 RDW 14.1 11.5-14.5 IPF 17.3 H 0-10 Jun 18, 2021 11:52 AM [facility] HEMOGLOBIN A1C Specim en Type: BLOOD No comment enter ed. Ordering Provid er: SAKSHI CROUCH Report Released Date/Time: Nov 15, 2020 10:48 AM Reporting Lab: [facility] [address] [facility] [id number] Performing Lab: [facility] [phone] HEMOGLOBIN A1C 8.6 H 4.0-6.0 Jun 18, 2021 11:50 [facility] BASIC METABOLIC Specimen Type: PLASMA AM PANEL+MG No comment enter ed. Ordering Provid er: VICENTE PELAEZ Report Released Date/Time: Feb 19, 2021 01:50 PM Reporting Lab: [facility] [address] [facility] [address] Performing Lab: [facility] [address] [facility] [address] CREATININE 1.3 mg/dL H 0.7-1.2 UREA NITROGEN 15 mg/dL 8-26 GLUCOSE 205 mg/dL H 74-100 SODIUM 142 mmol/L 136-145 POTASSIUM 4.1 mmol/L 3.5-5.1 CHLORIDE 106 mmol/L 98-107 CO2 26 mmol/L 22-29 CALCIUM 9.5 mg/dL 8.4-10.2 MAGNESIUM 2.2 mg/dL 1.6-2.6 ANION GAP 10 mmol/L 5-15 ESTIMATED GFR(eGFR) 54 L >60 Immunizations: All administered on the encounter date This section contains immunizations associated to the Encounter. Immunization Series Date Issued Reaction Comments COVID-19 ([employer]), MRNA, LNP-S, PF, 30 MCG/0.3 3 May 28, 2021 ML DOSE Social History: Smoking Status (Most current) and [...] Comment Facility Mar 20, 2021 11:21 AM [place]-VAAES TOBACCO USE CURRENT NRT [facility] DECLINE Tobacco Use History This section includes a history of the smoking, or tobacco- related health factors, that were collected on or before the date of the Encounter. The data comes from the [place] facility where the Encounter took place. Date/Time Smoking Status/Tobacco Use Comment Nicola matta Nov 15, 2020 10:00 AM VA-TOBACCO DOESNT USE WI 30 MIN [facility] WAKEUP Nov 15, 2020 10:00 AM VA-TOBACCO USE 30 YEARS OR MORE [facility] Nov 15, 2020 10:00 AM VA-TOBACCO USE ADVICE [facility] Nov 15, 2020 10:00 AM VA-TOBACCO USE ROLL CHANGER NO [facility] Nov 15, 2020 10:00 AM VA-TOBACCO USE MED NO [facility] Nov 15, 2020 10:00 AM VA-TOBACCO USER EVERY DAY [facility] Jun 21, 2019 02:29 PM VA-TOBACCO USE 30 YEARS OR MORE [facility] Jun 21, 2019 02:29 PM VA-TOBACCO USE ADVICE [place] [facility] [facility] Jun 21, 2019 02:29 PM VA-TOBACCO USE ROLL CHANGER NO [facility] Jun 21, 2019 02:29 PM VA-TOBACCO USE MED NO [place] [facility] [facility] Jun 21, 2019 02:29 PM VA-TOBACCO USE WI 30 MIN OF WAKEUP [facility] Jun 21, 2019 02:29 PM VA-TOBACCO USER EVERY DAY [facility] Jun 09, 2018 03:48 PM VA-TOBACCO USE 30 YEARS OR MORE [facility] Jun 09, 2018 03:48 PM VA-TOBACCO USE ADVICE [facility] Jun 09, 2018 03:48 PM VA-TOBACCO USE ROLL CHANGER NO [facility] Jun 09, 2018 03:48 PM VA-TOBACCO USE MED NO [place] [facility] Jun 09, 2018 03:48 PM VA-TOBACCO USE [place] 30 MIN OF WAKEUP [facility] Jun 09, 2018 03:48 PM VA-TOBACCO USER EVERY DAY [facility] Jun 20, 2017 07:53 AM CURRENT TOBACCO USER [facility] Jun 19, 2016 08:41 AM CURRENT TOBACCO USER [facility] Jun 21, 2015 08:15 AM CURRENT TOBACCO USER [facility] Mar 22, 2014 10:03 AM CURRENT TOBACCO USER [facility] Mar 25, 2013 11:01 AM CURRENT TOBACCO USER [facility] Feb 05, 2012 08:55 AM CURRENT TOBACCO USER [facility] January 01, 2011 09:26 AM CURRENT TOBACCO USER [facility] Mar 07, 2010 10:02 AM CURRENT TOBACCO USER [facility] Feb 21, 2009 08:17 AM CURRENT TOBACCO USER [facility] Nov 06, 2007 10:02 AM CURRENT TOBACCO USER [facility] January 02, 2007 10:33 AM CURRENT [...] this document. The data comes from all [place] facilities. Date Advance Directives Provider Source Mar 06, 2005 ADVANCE DIRECTIVE GANESH RODRIGUEZ [facility]
--- OUTSIDE RECORDS SUMMARY | 2022-04-02 16:17 | XMS_ITS | Encounter Summary ---
:1945 Author Organization Department [facility] Address [address] [place] [id number] Care Team Providers Name Role Phone SAKSHI [...] MEDICARE MEDICARE PART Jun 25, PART B [id number] Saumya QUINONES PATIENT (WNR) (M) B 2011 78A 0 AVID MEDICARE MEDICARE PART Sep 25, PART A [id number] Saumya QUINONES PATIENT (WNR) (M) A 2009 78A 0 AVID MEDICARE MEDICARE PART Sep 25, PART A [id number] Saumya MICHELE ATIENT (WNR) (M) A 2009 78A [id number] AVID MEDICARE MEDICARE PART Sep 25, PART B [id number] Saumya MICHELE ATIENT (WNR) (M) B 2009 78A [id number] AVID Selected Encounter This section includes the information on record at [place] for the Encounter. Date/Time Encounter Type Encounter Reason Provider Source Description Jun 18, 2021 OFFICE O/P EST CARDIOLOGY ICD-10-CM VICENTE PELAEZ 01:30 PM MOD 30-39 MIN I50.22 Chronic systolic (congestive) heart failure with Provider Comments: Chronic systolic heart failure ([facility] [id number]) IHE Encounter Template Text not used by [facility] Assessments - Encounter Diagnoses This section includes the primary and secondary diagnoses documented for the Encounter. Date/Time Primary/Secondary Diagnosis Name Provider Source Diagnosis Jun 18, 2021 PRIMARY [facility] (congestive) heart A HCS failure Jun 18, 2021 SECONDARY Encounter for MATT AREVALO V A 02:20 PM immunization ND S HCS Jun 18, 2021 SECONDARY Essential [facility] 02:20 PM (primary) A HCS hypertension Jun 18, 2021 SECONDARY Other persistent [facility] 02:20 PM atrial A HCS fibrillation Jun 18, 2021 SECONDARY Presence of [facility] 02:20 PM automatic A [facility] (implantable) cardiac defibrillator Jun 18, 2021 SECONDARY Type 2 diabetes [facility] 02:20 PM mellitus without A HCS complications Plan of Treatment: Future Appointments (+ 6 months) and Future Tests (+/- 45 days) The Plan of Treatment section includes future care activities for the patient from all [place] [facility]. This section includes future appointments and future orders which are active, pending orscheduled.Future Appointments This section includes appointments that were scheduled to occur 6 months from the date of the Encounter, up to a maximum of 20 appointments. The data comes from all [place] treatment facilities. Appointment Date/Time Appointment Type Appointment Facili ty Name Jun 20, 2021 10:00 AM AMBULATORY - MEDICINE [facility] Jul 11, 2021 01:00 PM AMBULATORY - NONE [facility] Jul 26, 2021 09:00 AM AMBULATORY - MEDICINE [facility] Jul 26, 2021 10:30 AM AMBULATORY - NONE [facility] Aug 03, 2021 10:46 AM AMBULATORY - MEDICINE [facility] Aug 08, 2021 07:00 AM AMBULATORY - NONE [facility] Aug 10, 2021 10:30 AM AMBULATORY - NONE [facility] Sep 14, 2021 09:00 AM AMBULATORY - NONE [facility] Sep 21, 2021 09:45 AM AMBULATORY - MEDICINE [facility] Sep 21, 2021 10:00 AM AMBULATORY - MEDICINE [facility] Sep 21, 2021 10:30 AM AMBULATORY - MEDICINE [facility] Sep 21, 2021 11:00 AM AMBULATORY - MEDICINE [facility] Sep 21, 2021 11:30 AM AMBULATORY - MEDICINE [facility] Oct 12, 2021 09:30 AM AMBULATORY - NONE [facility] Nov 02, 2021 08:42 PM AMBULATORY - MEDICINE [facility] Nov 05, 2021 11:30 AM AMBULATORY - MEDICINE [facility] Nov 09, 2021 09:30 AM AMBULATORY - NONE [facility] Nov 19, 2021 12:45 PM AMBULATORY - MEDICINE [facility] Nov 21, 2021 10:00 AM AMBULATORY - SURGERY [facility] Nov 29, 2021 06:30 AM AMBULATORY - NONE [facility] Active, Pending, and Scheduled Orders This [...] data comes from all [place] treatment facilities. Test Date/Time Test Type Test Details Facility Name Jul 26, 2021 09:16 AM Pharmacy - Clinic Infusion [facility] Order Lab Results: +/- 30 days [...] Interpretation Reference Range Comment Jun 18, 2021 [facility] CREATININE(INCLUDES EGFR) Sp ecimen Type: PLASMA 11:52 AM No comment enter ed. Ordering Provid er: SAKSHI CROUCH Report Released Date/Time: Nov 15, 2020 10:48 AM Reporting Lab: [facility] [address] [facility] [id number] Performing Lab: [facility] [address] [facility] [address] CREATININE 1.3 mg/dL H 0.7-1.2 ESTIMATED GFR(eGFR) 54 L >60 Jun 18, 2021 11:52 AM [facility] POTASSIUM Specim en Type: PLASMA No comment enter ed. Ordering Provid er: SAKSHI CROUCH Report Released Date/Time: Nov 15, 2020 10:48 AM Reporting Lab: [facility] [address] [facility] [address] Performing Lab: [facility] [address] [facility] [address] POTASSIUM 4.0 mmol/L 3.5-5.1 Jun 18, 2021 11:52 AM [facility] CBC Specim en Type: BLOOD No comment enter ed. Ordering Provid er: SAKSHI CROUCH Report Released Date/Time: Nov 15, 2020 10:48 AM Reporting Lab: [facility] [address] [facility] [address] Performing Lab: [facility] [id number] WBC 7.85 10*3/uL 4.0-11.0 RBC 4.96 10*6/uL 4.6-6.2 HGB 16.8 g/dL 13.5-17.9 HCT 51.9 41-54 MCV 104.6 fL H 80-100 MCH 33.9 pg H 27-33 MCHC 32.4 g/dL 32.0-37.5 PLT 98 10*3/uL L 150-400 MPV 14.0 fL H 7.4-10.4 RDW 14.1 11.5-14.5 IPF 17.3 H 0-10 Jun 18, 2021 11:52 AM [facility] HEMOGLOBIN A1C Specim en Type: BLOOD No comment enter ed. Ordering Provid er: SAKSHI CROUCH Report Released Date/Time: Nov 15, 2020 10:48 AM Reporting Lab: [facility] [id number] Performing Lab: [facility] [id number] HEMOGLOBIN A1C 8.6 H 4.0-6.0 Jun 18, 2021 11:50 [facility] BASIC METABOLIC Specimen Type: PLASMA AM PANEL+MG No comment enter ed. Ordering Provid er: VICENTE PELAEZ Report Released Date/Time: Feb 19, 2021 01:50 PM Reporting Lab: [facility] [phone] Performing Lab: [facility] [address] CREATININE 1.3 mg/dL H 0.7-1.2 UREA NITROGEN [...] dy Source Pressure Rate Mass Index Jun 18, 96.8 F 62 114/71 16 /min 99 % 0 73 in 230.1 30 [place] 2020 12:53 /min mm[Hg] lb [facility] Immunizations: All administered on the encounter date This section contains immunizations associated to the Encounter. Immunization Series Date Issued Reaction Comments INFLUENZA, INJECTABLE, QUADRIVALENT, Jun 18, 2021 PRESERVATIVE FREE Social History: Smoking Status (Most current) and [...] Nov 15, 2020 10:00 AM VA-TOBACCO USE MEDIA PRODUCER NO [facility] Nov 15, 2020 10:00 AM VA-TOBACCO USE MED NO [place] [facility] Nov 15, 2020 10:00 AM VA-TOBACCO USER EVERY DAY [facility] Jun 21, 2019 02:29 PM VA-TOBACCO USE 30 YEARS OR MORE [facility] Jun 21, 2019 02:29 PM VA-TOBACCO USE ADVICE [place] [facility] Jun 21, 2019 02:29 PM VA-TOBACCO USE MEDIA PRODUCER NO [facility] Jun 21, 2019 02:29 PM VA-TOBACCO USE MED NO [facility] Jun 21, 2019 02:29 PM VA-TOBACCO USE WI 30 MIN OF WAKEUP [facility] Jun 21, 2019 02:29 PM VA-TOBACCO USER EVERY DAY [facility] Jun 09, 2018 03:48 PM VA-TOBACCO USE 30 YEARS OR MORE [facility] Jun 09, 2018 03:48 PM VA-TOBACCO USE ADVICE [place] [facility] Jun 09, 2018 03:48 PM VA-TOBACCO USE MEDIA PRODUCER NO [facility] Jun 09, 2018 03:48 PM [facility]CO [facility] Jun 09, 2018 03:48 PM VA-TOBACCO USE [place] 30 MIN OF WAKEUP [facility] Jun 09, 2018 03:48 PM VA-TOBACCO USER EVERY DAY [facility] Jun 20, 2017 07:53 AM CURRENT TOBACCO USER [facility] Jun 19, 2016 08:41 AM [...] ADVANCE DIRECTIVE GANESH RODRIGUEZ [facility] Encounter Notes: All associated encounter notes This section contains the clinical notes associated to the Encounter. Date/Time Encounter Note(s) Provider Source Jun 18, 2021 01:48 PM CARDIOLOGY ATTENDING OUTPATIENT NOTE: VICENTE PELAEZ [facility] LOCAL TITLE: CARDIOLOGY CLINIC NOTE STANDARD TITLE: CARDIOLOGY ATTENDING OUTPATIENT NOTE DATE OF NOTE: JUN 18, 2021@13:48 ENTRY DATE: JUN 18, 2021@13:48:26 AUTHOR: VICENTE PELAEZ EXP COSIGNER: URGENCY: STATUS: COMPLETED Focused Problem List/Expanded HPI -Coronary artery disease [place] with angioplasty to the RCA in 1993 NSTEMI with three-vessel disease status post CA BG times 10/2010 -Heart failure with reduced ejection fraction -Single-chamber ICD placed in 2011 -New diagnosis atrial fibrillation December 2020 -Dofetilide load and cardioversion in Feb 2021 -Recurrent A. fib and ICD shock in Mar 2021-> d ofetilide stopped -Hypertension -Diabetes -Hyperlipidemia -COPD -Tobacco use disorder 75-year-old man comes in for scheduled appointme nt. He had a scheduled hospitalization in February for dofetilide loading f ollowed by direct-current cardioversion. Unfortunately , he developed ventricular tachycardia, was shocked by his ICD, and went back in to atrial fibrillation. The dofetilide was stopped. Since then, the patient has been fine. No chest pain or pressure, no palpitations, lightheadedness, syncope, orthopne a. He leads a sedentary lifestyle but can go grocery shopping an d take care of chores around the house without any limitation. He has been keeping meti culous records of his vital signs at home. His systolic blood pressure has g enerally been in the 120s, heart rate between 50 and 90, weight is slowly c oming down at 223 pounds. Assessment and Plan 1. CAD status post bypass surgery in 2010. No on going evidence of ischemia or infarction. The patient i s currently taking aspirin, apixaban, atorvastatin. 2. Recurrent persistent atrial fibrillation. Did not tolerate dofetilide because of a ICD shock event. Patient is complet madhu asymptomatic from his atrial fibrillation. It would be reasonable to r epeat an echocardiogram prior to deciding whether to pursue a rhythm control s trategy any further with ablation. I placed an order for an echocardiogra m looking for any interval change compared to the last one that was done in December 2020 at an outside hospital. In the meantime, the patient will cont inue on systemic anticoagulation. 3. Heart failure with reduced ejection fraction of 23% in December 2020. Stage C, class II, clinically euvo lemic. The patient is currently tolerating low doses of beta-blockers, Sacubitril/Valsartan, empaglif lozin, and furosemide. No changes planned today since the patient has had problems with progressive azotemia in the past and since he may be undergo ing an EP procedure in the future. Repeating an echocardiogram looking for interval change as described above. Follow-up 6-month with labs Physical Examination Temperature: 96.8 F [36.0 C] (06/18/2021 12:53) Blood Pressure: 114/71 (06/18/2021 12:53) Pulse: 62 (06/18/2021 12:53) Respiration: 16 (06/18/2021 12:53) Pain: 0 (06/18/2021 12:53) Measurement DT WEIGHT LB(KG)[BMI] 06/18/2021 12:53 230.1(104.37)[30*] 02/19/2021 12:45 231.2(104.87)[30*] 01/17/2021 09:55 232(105.23)[30*] Constitutional: resting comfortably in no distre ss Eyes: no reddness, no arcus Ears, Nose, Throat: No trauma or obvious signs o f infection Cardiovascular: Irregular without murmur, rub, g allop, JVP normal, no edema Respiratory: Decreased breath sounds bilaterally , no wheezes or rales Gastrointestinal:abdomen soft, non-tender, no ma sses Musculoskeletal: Normal strength and muscle tone Skin: no errhythema Neuro: Grossly intact with no focal neurologic d eficits Psych: Normal affect, mood Smoking status: Ongoing Active problems - Computerized Problem List is t he source for the followin. Status post left inguinal hernia repair 2. Chronic low back pain 3. Thrombocytopenia (SNOMED CT [id number]) 4. Chronic obstructive pulmonary disease ([facility] D CT [id number]) - FEV1/FVC (05/2011) 2.47/3.46. FEV1 58% pred. FEV1% 70. 5. History of adenomatous polyp of colon ([facility] [id number]) 6. Type 2 diabetes mellitus 7. Hypertension 8. Coronary artery disease - S/P inferior [place] in 1993. - S/P atherectomy RCA in 1993. - S/P CABG x 3 in 2010. 9. Chronic systolic heart failure - S/P ICD placement in 2011. - Echo (12/2020 ANW) EF 23%, LAE, mod global hyp okinesis. 10. Hyperlipidemia 11. Tobacco use 12. Cardiac defibrillator in situ 13. Peripheral neuropathy 14. Persistent atrial fibrillation Allergies: LISINOPRIL (Nov 09, 2007) Medications: Active Outpatient Medications (incl uding Supplies): ACCU-CHEK GUIDE (GLUCOSE) TEST STRIP 1 STRIP FOR TESTING ACTIVE TWICE WEEKLY TO CHECK BLOOD SUGAR--USE WITHIN 3 MINUTES OF REMOVING FROM CONTAINER TEST AT DIFFERENT TIMES OF THE DAY OR DIRECTED ALBUTEROL 90MCG (CFC-F) 200D ORAL INHL INHALE 2 PUFFS BY ACTIVE INHALATION FOUR TIMES A DAY NEEDED FOR SHORT NESS OF BREATH *SHAKE WELL* (FOR IMMEDIATE RELIEF) APIXABAN 5MG TAB TAKE ONE TABLET BY MOUTH EVERY 12 HOURS ACTIVE TO PREVENT BLOOD CLOTS, STROKE ATORVASTATIN CALCIUM 80MG TAB TAKE ONE-HALF TABL ET BY ACTIVE MOUTH AT BEDTIME FOR CHOLESTEROL EMPAGLIFLOZIN 25MG TAB TAKE ONE TABLET BY MOUTH EVERY DAY ACTIVE FLUTICASONE 230/SALMET 21MCG 120D INHL INHALE 1 PUFF BY ACTIVE INHALATION EVERY 12 HOURS RINSE MOUTH AFTER EAC H USE; REPLACES SYMBICORT FUROSEMIDE 40MG TAB TAKE ONE TABLET BY MOUTH SAMI DAY ACTIVE GABAPENTIN 300MG CAP TAKE TWO CAPSULES BY MOUTH THREE ACTIVE TIMES A DAY FOR LEG PAIN GLIPIZIDE 10MG TAB TAKE TWO TABLETS BY MOUTH TWI CE A DAY ACTIVE TAKE 30 MINUTES BEFORE MEAL FOR DIABETES METFORMIN HCL 1000MG TAB TAKE ONE TABLET BY MOUT H TWO ACTIVE TIMES A DAY FOR DIABETES METOPROLOL SUCCINATE 100MG SA TAB TAKE ONE-HALF TABLET BY ACTIVE MOUTH EVERY DAY FOR HEART NITROGLYCERIN 0.4MG SL TAB DISSOLVE ONE TABLET U NDER THE ACTIVE TONGUE ONCE FOR CHEST PAIN * MAY REPEAT EVERY 5 MINUTES--NO MORE THAN 3 TOTAL SACUBITRIL 24MG/VALSARTAN 26MG TAB TAKE 1 TABLET BY MOUTH ACTIVE TWICE A DAY FOR HEART FAILURE SEMAGLUTIDE 1MG/0.75ML INJ PEN 3ML INJECT 1MG UN LESLY THE ACTIVE SKIN EVERY WEEK FOR DIABETES -REFRIGERATE -MULT IPLE DOSES PER PEN VITAMIN B COMPLEX CAP TAKE 1 CAPSULE BY MOUTH EV ACTIVE FOR NUTRITION Non-VA ASCORBIC ACID 500MG TAB 1000MG EVERY DAY ACTIVE Non-VA MARINE LIPID (FISH OIL) CAP,ORAL MOUTH AC TIVE Non-VA MULTIVITAMINS CAP/TAB MOUTH ACTIVE Non-VA NON VA MED NOT LISTED MISCELLANEOUS CATS CLAW MOUTH ACTIVE LABS: UREA NITROGEN 15 (06/18/21) CREATININE 1.3 H (06/18/21) GLUCOSE 205 H (06/18/21) SODIUM 142 (06/18/21) CHLORIDE 106 (06/18/21) POTASSIUM 4.0 (06/18/21) CO2 26 (06/18/21) Collection DT Specimen Test Name Result Units Re f Range 06/18/2021 11:52 PLASMA ESTIMATED GFR(eGF 54 L R ef: >=60 No data available No data available CBC: HCT: 52.6 (10/27/20) 51.9 (06/18/21) HGB: 16.7 (10/27/20) 16.8 (06/18/21) IPF: 19.0 (10/27/20) 17.3 (06/18/21) MCH: 32.9 (10/27/20) 33.9 (06/18/21) MCHC: 31.7 (10/27/20) 32.4 (06/18/21) MCV: 103.5 (10/27/20) 104.6 (06/18/21) MPV: 13.2 (10/27/20) 14.0 (06/18/21) PLT: 78 (10/27/20) 98 (06/18/21) RBC: 5.08 (10/27/20) 4.96 (06/18/21) RDW: 13.1 (10/27/20) 14.1 (06/18/21) WBC: 8.30 (10/27/20) 7.85 (06/18/21) CHOLESTEROL 166 (10/27/20) HDL 63 (10/27/20) LDL CALCULATION 76 (10/27/20) LDL Measured: TRIGLYCERIDE____ SGOT 28 (02/19/21) SGPT 32 (02/19/21) TSH ____ The results and significance of today's testing was discussed with the patient in lay terms. 50% of this 30 minute session was spent counseling the patient and coordinating care. /billy/ VICENTE PELAEZ MD PHYSICIAN Signed: 06/18/2021 14:20 Jun 18, 2021 12:54 PM INTERNAL MEDICINE OUTPATIENT NOTE: NATALY AREVALO [facility] LOCAL TITLE: MEDICINE CLINIC NURSING NOTE STANDARD TITLE: INTERNAL MEDICINE OUTPATIENT NOT E DATE OF NOTE: JUN 18, 2021@12:54 ENTRY DATE: JUN 18, 2021@12:54:47 AUTHOR: NATALY AREVALO EXP COSIGNER: URGENCY: STATUS: COMPLETED TYPE OF VISIT: Appointment Check In Type of appointment: In-person appointment REASON FOR VISIT: Consult ALLERGIES: LISINOPRIL (Nov 09, 2007) VITAL SIGNS: Blood Pressure: 114/71 (06/18/2021 12:53) Pulse: 62 (06/18/2021 12:53) Respiration: 16 (06/18/2021 12:53) Temperature: 96.8 F [36.0 C] (06/18/2021 12:53) Weight: 230.1 lb [104.6 kg] (06/18/2021 12:53) Height: 73 in [185.4 cm] (06/18/2021 12:53) BMI: 30.4 O2 Sat: 99 (06/18/2021 12:53) Pain: 0 (06/18/2021 12:53) PAIN SCREEN: Patient is not having significant pain that the y wish to discuss with their provider today. MEDICATION Over the Counter/Herbal Medications: The patient states that they take some outside medications and/or herbals. Influenza Immunization: The patient was given the influenza VIS which l ists the benefits and side effects of the vaccine and which reviews the ri sks of not receiving the flu vaccine. The VIS was reviewed with the patient and they were given an opportunity to ask questions. The patient was p rovided education on how to decrease the risk of influenza infection inc luding social distancing and use of good hand hygiene. The patient denied an y prior severe reaction to the flu vaccine or its components. The patient gave verbal consent to receive the vaccine. The seasonal influenza vaccine VIS given to the patient: VIS version date Mar. The patient received seasonal influenza vaccine today - Influenza, Quadrivalent preservative free (Afluria) 0.5 ml IM today in Left Deltoid. Lard Maker: [employer]. Lot # and Expiration Date: Lot#:[id number], EXP :02/04/2022 /billy/ URSZULA BLANCHARD LPN Signed: 06/18/2021 13:00
--- OUTSIDE RECORDS SUMMARY | 2022-04-02 16:26 | XMS_ITS | Continuity of Care Document ---
:1945 Author Organization [facility] Care Team Providers Name Role Phone [facility] Unavailable Unavailable Problems Combined list of problems from Department of Defense and [facility] Affairs facilities. It does not include entries that were removed or entered in error. Problem Status Onset Problem Date of Comments Source Date Type Resolution Chronic systolic Active Condition Jun 21, [place] heart failure 011 2014 Entered [facility] By: SAKSHI CROUCH Comment: S/P ICD placement in 2011. January 17, 2021 Entered By: SAKSHI CROUCH Comment: Echo (12/2020 ANW) EF 23%, LAE, mod global hypokinesis. Coronary artery Active Condition Jun 21, [place] disease 994 2014 Entered [facility] By: SAKSHI CROUCH Comment: S/P inferior [place] in 1993. Jun 21, 2015 Entered By: SAKSHI CROUCH Comment: S/P atherectomy RCA in 1993. Jun 21, 2015 Entered By: SAKSHI CROUCH Comment: S/P CABG x 3 in 2010. Cardiac defibrillator Active Condition [place] in situ [facility] Chronic low back pain Active Condition [facility] Chronic obstructive Active Condition Jun 26 [place] pulmonary disease 2010 Entered [facility] (SNOMED CT [id number]) By: SAKSHI CROUCH Comment: FEV1/FVC (05/2011) 2.47/3.46. FEV1 58% pred. FEV1% 70. History of Active Condition [place] adenomatous polyp of [facility] colon (SNOMED CT [id number]) Hyperlipidemia Active Condition [place] [facility] Hypertension Active Condition [place] [facility] Peripheral neuropathy Active Condition [facility] Persistent atrial Active Condition [place] fibrillation [facility] Status post left Active Condition [place] inguinal hernia [facility] CS repair Thrombocytopenia Active Condition [place] (SNOMED CT [id number]) [facility] Tobacco use Active Condition [place] [facility] Type 2 diabetes Active Condition [place] mellitus [facility] Unifocal PVCs [facility] Diagnosis: ICD-10-CM active Diagnosis [place] I50.9 Heart failure, [facility] unspecifiedwith Provider Comments: Heart Failure, unspecified Diagnosis: ICD-10-CM active Diagnosis [place] E11.9 Type 2 diabetes [facility] mellitus without complicationswith Provider Comments: Type 2 diabetes mellitus ([facility] [email or web address]] [phone]) Diagnosis: ICD-10-CM active Diagnosis [place] Z95.810 Presence of [facility] automatic (implantable) cardiac defibrillatorwith Provider Comments: Cardiac defibrillator in situ ([facility] [[email or web address]] [phone]) Diagnosis: ICD-10-CM active Diagnosis [place] Z51.81 Encounter for [facility] therapeutic drug level monitoringwith Provider Comments: Encounter for therapeutic drug level monitoring Diagnosis: ICD-10-CM active Diagnosis [place] I48.19 Other [facility] persistent atrial fibrillationwith Provider Comments: Persistent atrial fibrillation ([facility] [[email or web address]] [phone]) Admit Reason: PVI GEN active Diagnosis [place] CHANGE [facility] Diagnosis: ICD-10-CM active Diagnosis [place] D69.6 [facility] Thrombocytopenia, unspecifiedwith Provider Comments: Thrombocytopenia ([facility] [[email or web address]] [phone]) Diagnosis: ICD-10-CM active Diagnosis [place] I51.7 [facility] Cardiomegalywith Provider Comments: Cardiomegaly Diagnosis: ICD-10-CM active Diagnosis [place] Z01.818 Encounter for [facility] other preprocedural examinationwith Provider Comments: Encounter for other preprocedural examination Diagnosis: ICD-10-CM active Diagnosis [place] I49.3 Ventricular [facility] premature depolarizationwith Provider Comments: Unifocal PVCs ([facility] [[email or web address]] [phone]) Diagnosis: ICD-10-CM active Diagnosis [place] Z01.818 Encounter for [facility] other preprocedural examinationwith Provider Comments: Encounter for other Preprocedural Examination Diagnosis: ICD-10-CM active Diagnosis [place] Z95.810 Presence of [facility] automatic (implantable) cardiac defibrillatorwith Provider Comments: Presence of automatic (implantable) cardiac defibrillator Diagnosis: ICD-10-CM active Diagnosis [place] I47.2 Ventricular [facility] tachycardiawith Provider Comments: Ventricular tachycardia Diagnosis: ICD-10-CM active Diagnosis [place] Z13.6 Encounter for [facility] screening for cardiovascular disorderswith Provider Comments: Encounter for Screening for Cardiovascular Disorders Diagnosis: ICD-10-CM active Diagnosis [place] I50.22 Chronic 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 systolic (congestive) heart failurewith Provider Comments: Chronic Systolic (Congestive) Heart Failure Diagnosis: ICD-10-CM active Diagnosis [place] E11.9 Type 2 diabetes [facility] mellitus without complicationswith Provider Comments: Type 2 diabetes mellitus without complications Diagnosis: ICD-10-CM active Diagnosis [place] J44.9 Chronic [facility] obstructive pulmonary disease, unspecifiedwith Provider Comments: COPD, Stable Diagnosis: ICD-10-CM active Diagnosis [place] I48.19 Other [facility] persistent atrial fibrillationwith Provider Comments: Persistent atrial fibrillation (SNOMED CT [id number]) Diagnosis: ICD-10-CM active Diagnosis [place] G63 Polyneuropathy in [facility] diseases classified elsewherewith Provider Comments: Peripheral neuropathy ([facility] [[email or web address]] [phone]) Diagnosis: ICD-10-CM active Diagnosis [place] M54.17 Radiculopathy, [facility] lumbosacral regionwith Provider Comments: Radiculopathy, [place]umb[place] Region Medications Combined list of outpatient medications from Department of Defense and Veterans Affairs facilities. Medications provided include 1) outpatient medications from the last 15 months, and 2) patient-reported medications. Medication Details Route Status Patient Prescription Prescription Last Ordering Order Source Instructions Expires Number Dispense Provider Date Date ADVAIR HFA Active [id number] [place] 12/24 3/ Pharmac (FLUTICASON 1 R,MAXIMILIANO 2020 y Da ta E/SALMETERO Transac L), tion 115-21MCG, Service HFA AER AD, Facilit INHALATION, y GLAXOSMITHK LINE, 12 g CANISTER ALBUTEROL INHALE 2 INHALA ACTIVE 08/11/2022 [id number] JENIFFER GALLEGOS, 08/10/ [place] 90MCG/ACTUA PUFFS BY TION 2 JAYY L 2020 [place] T (CFC-F) INHALATI HCS INHL,ORAL,8 ON FOUR .5GM DOSE TIMES A COUNTER DAY NEEDED FOR SHORTNES S OF BREATH *SHAKE WELL* (FOR IMMEDIAT E RELIEF) ALBUTEROL INHALE 2 INHALA DISCONT 06/21/2021 [id number] H LISA,BR 06/22/ [place] 90MCG/ACTUA PUFFS BY TION INUE 1 UCE R 2020 [place] T (CFC-F) INHALATI HCS INHL,ORAL,8 ON FOUR .5GM DOSE TIMES A COUNTER DAY NEEDED FOR SHORTNES S OF BREATH *SHAKE WELL* (FOR IMMEDIAT E RELIEF) APIXABAN 5 TAKE ONE Active 03/27/2022 [id number] HELMR ICK, 06/01/ [place] MG ORAL TAB TABLET 1 2020 [place] BY MOUTH [facility] EVERY 12 HOURS TO PREVENT BLOOD CLOTS, STROKE APIXABAN 5 TAKE ONE Discont 01/19/2022 [id number] HOWL ETT, 03/27/ [place] MG ORAL TAB TABLET inued 1 MEGHAN Y 2020 alok s BY MOUTH [facility] EVERY 12 HOURS TO PREVENT BLOOD CLOTS, STROKE APIXABAN 5 TAKE ONE Discont 02/14/2021 [id number] THOL AKANA 01/19/ [place] MG ORAL TAB TABLET inued 1 BOOGIE2020 [place] BY MOUTH [facility] TWICE A ISHNA DAY TO [facility] PREVENT BLOOD CLOTS APIXABAN TAKE ONE ORALLY ACTIVE 03/27/2022 [id number] HELMRI CK, 03/26/ [place] 5MG TAB TABLET 2 2020 [place] BY MOUTH [facility] EVERY 12 HOURS TO PREVENT BLOOD CLOTS, STROKE APIXABAN TAKE ONE ORALLY DISCONT 01/19/2022 [id number] HOW EVELIO,K 01/18/ [place] 5MG TAB TABLET INUED 1 RISTIN Y 2020 [place] BY MOUTH (EDIT) [facility] EVERY 12 HOURS TO PREVENT BLOOD CLOTS, STROKE APIXABAN TAKE ONE ORALLY DISCONT 02/14/2021 [id number] THO LAKANA 01/17/ [place] 5MG TAB TABLET INUED 1 BOOGIE,FORMERLY [facility] 2020 [place] BY MOUTH (EDIT) [facility] TWICE A NA NARAS DAY TO PREVENT BLOOD CLOTS ASCORBIC TAKE TWO ACTIVE JJ PELAEZ [place] ACID 500MG TABLETS JONI A 2020 [place] TAB EVERY HCS DAY atorvastati TAKE Active 06/21/2022 [id number] WILLA, 12/29/ [place] n (U/D) 80 ONE-HALF 2 SAKSHI R 2021 [place] MG ORAL TAB TABLET [facility] BY MOUTH AT BEDTIME FOR CHOLESTE ROL atorvastati TAKE Discont 10/31/2021 [id number] WILLA , 06/23/ [place] n (U/D) 80 ONE-HALF inued 1 SAKSHI R 2020 [place] MG ORAL TAB TABLET [facility] BY MOUTH AT BEDTIME FOR CHOLESTE ROL ATORVASTATI TAKE ORALLY ACTIVE 06/21/2022 [id number] RACHEL Kumar,BR 09/01/ [place] 80MG ONE-HALF 2 UCE R 2021 [place] TAB TABLET HCS BY MOUTH AT BEDTIME FOR CHOLESTE ROL ATORVASTATI TAKE ORALLY DISCONT 10/31/2021 [id number] H LISA,JORGE ALBERTO 11/30/ [place] CA 80MG ONE-HALF INUE 1 R 2020 [place] TAB TABLET HCS BY MOUTH AT BEDTIME FOR CHOLESTE ROL cephALEXin TAKE ONE 12/29/2021 [id number] PETER GAITAN 12/02/ [place] (U/D) 500 CAPSULE 2 CHERRY 2021 [place] MG ORAL CAP BY MOUTH [facility] TWICE A DAY FOR 3 DAYS - AFTER CIED PROCEDUR E - CEPHALEXIN TAKE ONE ORALLY 12/29/2021 [id number] Mehran CEVALLOS I 11/30/ [place] 500MG CAP CAPSULE 2 [id number] [place] BY MOUTH HCS TWICE A DAY FOR 3 DAYS - AFTER CIED PROCEDUR E - DIGOXIN Active [id number] CHARITY 01/14/ Pharmac (digoxin), 1 ,AVERY 2020 y Data 125 MCG, Transac TABLET, tion ORAL, Service [facility] Facilit RX LL, 100 y ea. BOTTLE digoxin TAKE ONE Discont 01/16/2022 [id number] THOLAKA NA 03/25/ [place] (U/D) 125 TABLET inued 1 2020 [place] MCG ORAL BY MOUTH VEN[place] [facility] TAB EVERY ISHNA DAY MELANY DIGOXIN TAKE ONE ORALLY DISCONT 01/16/2022 [id number] THOLAK EBONY 01/15/ [place] 0.125MG TAB TABLET INUED 1 BOOGIE,LAUREANO 2020 ALOK S [facility] BY MOUTH [facility] EVERY NA NARAS DAY DOFETILIDE TAKE ONE Discont 06/21/2021 [id number] ANDRADE NGI, 04/04/ [place] 250 MCG CAPSULE inued 1 RODO S 2020 [place] ORAL CAP BY MOUTH [facility] TWICE A DAY FOR HEART RHYTHM CONTROL DOFETILIDE TAKE ONE ORALLY DISCONT 06/21/2021 [id number] V ELANGI,P 03/23/ [place] 250MCG CAP CAPSULE INUED 1 RATIK S 2020 [place] BY MOUTH HCS TWICE A DAY FOR HEART RHYTHM CONTROL ELIQUIS Active [id number] OGINO 01/14/ (APIXABAN), 1 ,AVERY 2020 y Data 5 MG, Transac TABLET, tion ORAL, [facility] Facilit , 60 ea. y BOTTLE EMPAGLIFLOZ TAKE ONE Active 06/21/2022 [id number] BHASKAR ON, 01/21/ [place] IN 25 MG TABLET 2 SAKSHI R 2021 [place] ORAL TAB BY MOUTH [facility] EVERY DAY EMPAGLIFLOZ TAKE ONE Discont 01/30/2022 [id number] PRISCA SON, 06/23/ [place] IN 25 MG TABLET inued 1 SAKSHI R 2020 [place] ORAL TAB BY MOUTH [facility] EVERY DAY EMPAGLIFLOZ TAKE ONE Discont 11/16/2021 [id number] COPE SON, [place] IN 25 MG TABLET inued 1 SAKSHI R 2020 [place] ORAL TAB BY MOUTH [facility] EVERY DAY EMPAGLIFLOZ TAKE ONE ORALLY ACTIVE 06/21/2022 [id number] JORGE ALBERTO CROUCH 07/03/ [place] IN 25MG TAB TABLET 2 [facility] R 2020 [place] BY MOUTH HCS EVERY DAY EMPAGLIFLOZ TAKE ONE ORALLY DISCONT 01/30/2022 [id number] JORGE ALBERTO CROUCH 03/15/ [place] IN 25MG TAB TABLET INUE 1 [facility] R 2020 [place] BY MOUTH HCS EVERY DAY EMPAGLIFLOZ TAKE ONE ORALLY DISCONT 11/16/2021 [id number] JORGE ALBERTO CROUCH 11/20/ [place] IN 25MG TAB TABLET INUE 1 [facility] 2020 [place] BY MOUTH HCS EVERY DAY FLUTICASONE INHALE 1 INHALA DISCONT 01/30/2022 [id number] JORGE ALBERTO CROUCH 04/07/ [place] 230MCG/SALM PUFF BY TION INUED 1 [facility] 2020 [place] V A ETEROL INHALATI HCS 21MCG ON EVERY INHL,ORAL,1 12 HOURS 2GM RINSE MOUTH AFTER EACH USE; REPLACES SYMBICOR T FLUTICASONE INHALE 1 INHALA DISCONT 04/15/2021 [id number] THOLAKANA 01/17/ [place] 230MCG/SALM PUFF BY TION INUE 1 [facility] 2020 [place] ETEROL INHALATI [place] [facility] 21MCG ON EVERY NA NARAS INHL,ORAL,1 12 HOURS 2GM RINSE MOUTH AFTER EACH USE; REPLACES SYMBICOR T Fluticasone INHALE 1 Discont 01/30/2022 [id number] COPE SON, 07/15/ [place] Propionate PUFF inued 1 [facility] 2020 [place] 0.23mg/Actu BYINHALA [facility] at + TION Salmeterol EVERY 12 0.021mg/Act HOURS uat, RINSE Aerosol, MOUTH Inhalation AFTER EACH USE; REPLACES SYMBICOR T Fluticasone INHALE 1 Discont 04/15/2021 [id number] THO LAKANA 02/01/ [place] Propionate PUFF BY inued 1 [id number] [place] 0.23mg/Actu INHALATI [facility]KR [facility] + ON EVERY ISHNA Salmeterol 12 HOURS MELANY 0.021mg/Act RINSE uat, MOUTH Aerosol, AFTER Inhalation EACH USE; REPLACES SYMBICOR T FUROSEMIDE Active [id number] [place] 05/2 3/ Pharmac (FUROSEMIDE 1 ,AVERY 2020 y Data ), 40MG, Transac TABLET, tion ORAL, Service MYLAN, 1000 Facilit ea. BOTTLE y FUROSEMIDE TAKE ONE Active 06/21/2022 [id number] HANSO N, 01/21/ [place] (U/D) 40 MG TABLET 2 SAKSHI R 2021 [place] ORAL TAB BY MOUTH [facility] EVERY DAY FUROSEMIDE TAKE ONE Discont 01/16/2022 [id number] THOL AKANA 06/23/ [place] (U/D) 40 MG TABLET inued 1 2020 [place] ORAL TAB BY MOUTH [facility] EVERY ISHNA DAY MELANY FUROSEMIDE TAKE ONE ORALLY SUSPEND 06/21/2022 [id number] JORGE ALBERTO CROUCH 07/04/ [place] 40MG TAB TABLET ED 2 UC R 2020 [place] BY MOUTH [facility] EVERY DAY FUROSEMIDE TAKE ONE ORALLY DISCONT 01/16/2022 [id number] T HOLAKANA 01/15/ [place] 40MG TAB TABLET INUE 1 BOOGIE,LAUREANO 2020 [place] V A BY MOUTH [facility] EVERY NA NAR DAY GABAPENTIN TAKE TWO Active 06/21/2022 [id number] HANSO N, 01/21/ [place] (U/D) 300 CAPSULES 2 2021 [place] MG ORAL CAP BY MOUTH [facility] THREE TIMES A DAY FOR LEG PAIN GABAPENTIN TAKE TWO Discont 01/30/2022 [id number] [place] ON, 06/23/ [place] (U/D) 300 CAPSULES inued 1 2020 [place] MG ORAL CAP BY MOUTH [facility] THREE TIMES A DAY FOR LEG PAIN GABAPENTIN TAKE TWO ORALLY ACTIVE 06/21/2022 [id number] H JORGE ALBERTO GONZALEZ 07/21/ [place] 300MG CAP CAPSULES 2 UCE R 2020 [place] BY MOUTH HCS THREE TIMES A DAY FOR LEG PAIN GABAPENTIN TAKE TWO ORALLY DISCONT 01/30/2022 [id number] WILLABR 01/31/ [place] 300MG CAP CAPSULES INUE 1 UCE R 2020 [place] [facility] BY MOUTH HCS THREE TIMES A DAY FOR LEG PAIN glipiZIDE TAKE TWO Active 06/21/2022 [id number] CROUCH , 08/27/ [place] (U/D) 10 MG TABLETS 2 SAKSHI R 2021 [place] ORAL TAB BY MOUTH VA TWICE A DAY TAKE 30 MINUTES BEFORE MEAL FOR DIABETES glipiZIDE TAKE TWO Discont 10/31/2021 [id number] BHASKARO N, 06/23/ [place] (U/D) 10 MG TABLETS inued 1 SAKSHI R 2020 [place] ORAL TAB BY MOUTH VA TWICE A DAY TAKE 30 MINUTES BEFORE MEAL FOR DIABETES GLIPIZIDE TAKE TWO ORALLY ACTIVE 06/21/2022 [id number] COLLADO NSON,BR 06/21/ [place] 10MG TAB TABLETS 2 [facility] R 2020 [place] BY MOUTH HCS TWICE A DAY TAKE 30 MINUTES BEFORE MEAL FOR DIABETES GLIPIZIDE TAKE TWO ORALLY DISCONT 10/31/2021 [id number] COLLADO NSON,BR 10/31/ [place] 10MG TAB TABLETS INUE 1 [facility] R 2020 [place] BY MOUTH HCS TWICE A DAY TAKE 30 MINUTES BEFORE MEAL FOR DIABETES MARINE TAKE BY ORALLY ACTIVE JJ PELAEZ 02/19/ [place] LIPID (FISH MOUTH JONI A 2020 [place] OIL) HCS CAP,ORAL METFORMIN TAKE ONE ORALLY 01/30/2022 [id number] H JORGE ALBERTO GONZALEZ 01/31/ [place] HCL 1000MG TABLET 2 [facility] R 2020 [place] TAB BY MOUTH HCS TWO TIMES A DAY FOR DIABETES Metformin TAKE ONE 01/30/2022 [id number] [place] N, 10/16/ [place] Hydrochlori TABLET 2 SAKSHI R 2021 [place] de Tablet BY MOUTH VA Extended TWO Release TIMES A 1,000 mg DAY FOR Oral DIABETES metoprolol TAKE Active 04/03/2022 [id number] SUSY, 06/25/ [place] succ (U/D) ONE-HALF 1 JOSSELYN Thakur 2020 alok s 100 MG ORAL TABLET VA TB24 BY MOUTH EVERY DAY FOR HEART metoprolol TAKE ONE Discont 01/30/2022 [id number] [place] ON, 08/11/ [place] succ (U/D) AND inued 1 SAKSHI R 2020 [place] 25 MG ORAL ONE-HALF VA TB24 TABLETS BY MOUTH EVERY DAY FOR HEART metoprolol TAKE ONE Discont 04/15/2021 [id number] THOL AKANA 01/30/ [place] succ (U/D) AND inued 1 BOOGIE, 2020 [place] 25 MG ORAL ONE-HALF VENK[place]KR VA TB24 TABLETS ISHNA BY MOUTH MELANY EVERY DAY FOR HEART -REPLACE S METOPROL OL SUCCINAT E 100MG SA TABLET METOPROLOL TAKE Active 09/27/2022 [id number] GLAUSER, 11/11/ [place] SUCC 200 MG ONE-HALF 2 TUCKER N 2021 olis ORAL TB24 TABLET [facility] BY MOUTH EVERY DAY FOR HEART METOPROLOL TAKE Discont 09/27/2022 [id number] GLAUSER , 11/11/ [place] SUCC 200 MG ONE-HALF inued 2 TUCKER N 2021 [place] ORAL TB24 TABLET [facility] BY MOUTH EVERY DAY FOR HEART METOPROLOL Active [id number] CHARITY 12/24 3/ Pharmac SUCCINATE 1 ,AVERY 2020 y Data (metoprolol Transac succinate), tion 25 MG, TAB Service ER 24H, Facilit ORAL, y [facility], 500 ea. BOTTLE METOPROLOL TAKE ORALLY DISCONT 04/03/2022 [id number] BRENT JAIN 04/03/ [place] SUCCINATE ONE-HALF INUED 2 SEPH J 2020 [place] V A 100MG TABLET (EDIT) HCS TAB,SA BY MOUTH EVERY DAY FOR HEART METOPROLOL TAKE ORALLY ACTIVE 09/27/2022 [id number] GLAUSER ,N 11/08/ [place] SUCCINATE ONE-HALF 2 ORA N 2021 [place] 200MG TABLET HCS TAB,SA BY MOUTH EVERY DAY FOR HEART METOPROLOL TAKE ORALLY DISCONT 09/27/2022 [id number] GLAUSE R,N 09/27/ [place] SUCCINATE ONE-HALF INUED 2 ORA N 2021 [place] 200MG TABLET HCS TAB,SA BY MOUTH EVERY DAY FOR HEART METOPROLOL TAKE ONE ORALLY DISCONT 01/30/2022 [id number] H LISA,BR 01/31/ [place] SUCCINATE AND INUED 1 UCE R 2020 [place] 25MG TAB,SA ONE-HALF (EDIT) HCS TABLETS BY MOUTH EVERY DAY FOR HEART METOPROLOL TAKE ONE ORALLY DISCONT 04/15/2021 [id number] T HOLAKANA 01/15/ [place] SUCCINATE AND INUED [...] MOUTH HCS Olodaterol INHALE 2 Active 07/12/2022 [id number] JEFF MCLAUGLHIN, 07/17/ [place] 0.0025 PUFFS BY 1 JAYY L 2020 [place] mg/Actuat + INHALATI [facility] Tiotropium ON EVERY 0.0025 DAY TO mg/Actuat PREVENT Mist, TROUBLE Inhalation BREATHIN G OLODATEROL INHALE 2 INHALA ACTIVE 07/12/2022 [id number] JENIFFER GALLEGOS, 07/11/ [place] 2.5MCG/TIOT PUFFS BY TION 2 JAYY L 2020 [place] VA ROPIUM INHALATI HCS 2.5MCG/ACTU ON EVERY AT DAY TO INHL,ORAL,6 PREVENT 0D,4GM TROUBLE BREATHIN G Sacubitril TAKE 1 02/20/2022 [id number] BENIGNO, 03/05/ [place] 24 mg + TABLET 1 VICENTE Brooks 2021 olis Valsartan BY MOUTH [facility] 26 mg TWICE A Tablet, DAY FOR Oral HEART FAILURE Sacubitril TAKE Discont 01/16/2022 [id number] THOLAKA NA 02/19/ [place] 24 mg + ONE-HALF inued 1 2020 [place]is Valsartan TABLET [facility]KJanak [facility] 26 mg BY MOUTH ISHNA Tablet, TWICE A MELANY Oral DAY FOR HEART FAILURE -REPLACE S [place] SACUBITRIL TAKE ORALLY DISCONT 01/16/2022 [id number] THOLAK EBONY 01/15/ [place] 24MG/VALSAR ONE-HALF INUED 1 BOOGIE,LAUREANO 2020 O [place] VA ERICKSON 26MG TABLET (EDIT) [place] [facility] TAB BY MOUTH NA NARAS TWICE A DAY FOR HEART FAILURE -REPLACE S [place] SACUBITRIL TAKE 1 ORALLY 02/20/2022 [id number] BAR T,JJ 02/20/ [place] 24MG/VALSAR TABLET 1 JONI A 2020 [place] ER[place] 26MG BY MOUTH HCS TAB TWICE A DAY FOR HEART FAILURE SEMAGLUTIDE INJECT SUBCUT DISCONT 02/22/2022 [id number] NE CHAELS, 04/09/ [place] 0.5MG/0.375 0.5MG ANEOUS INUED 1 [facility] 2020 [place] ML UNDER (EDIT) HCS INJ,SOLN,PE THE SKIN N,1.5ML EVERY WEEK FOR DIABETES -MULTIPL E DOSES PER PEN SEMAGLUTIDE INJECT SUBCUT DISCONT 02/22/2022 [id number] NE CHAELS, 02/22/ [place] 0.5MG/0.375 0.25MG ANEOUS INUE 1 [facility] 2020 ALOK S VA ML UNDER HCS INJ,SOLN,PE THE SKIN N,1.5ML EVERY WEEK FOR 4 WEEKS, THEN INJECT 0.5MG EVERY WEEK FOR DIABETES -MULTIPL E DOSES PER PEN SEMAGLUTIDE INJECT SUBCUT ACTIVE 12/05/2022 [id number] [place] CHAELS, 12/05/ [place] 1MG/0.75ML 1MG ANEOUS 2 [facility] 2021 [place] INJ,SOLN,PE UNDER HCS N,3ML THE SKIN EVERY WEEK FOR DIABETES -REFRIGE RATE -MULTIPL E DOSES PER PEN SEMAGLUTIDE INJECT SUBCUT DISCONT 05/09/2022 [id number] NE CHAELS, 05/09/ [place] 1MG/0.75ML 1MG ANEOUS INUED 2 [facility] 2020 [place] VA INJ,SOLN,PE UNDER HCS N,3ML THE SKIN EVERY WEEK FOR DIABETES -REFRIGE RATE -MULTIPL E DOSES PER PEN SILDENAFIL TAKE ONE ORALLY ACTIVE 01/03/2023 [id number] COLLADO NSON,BR 01/03/ [place] CITRATE TABLET 2 UCE R 2021 [place] 100MG TAB BY MOUTH HCS ONCE NEEDED 1 HOUR BEFORE ANTICIPA ERI SEXUAL ACTIVITY spironolact TAKE 02/28/2022 [id number] PRITCHETT, 12/02/ [place] one (U/D) ONE-HALF 2 APRIL U 2021 olis 25 MG ORAL TABLET [facility] TAB BY MOUTH EVERY DAY SPIRONOLACT TAKE ORALLY ACTIVE 01/03/2023 [id number] [place] N,BR 02/18/ [place] ONE 25MG ONE-HALF 2 UCE R 2021 [place] VA TAB TABLET HCS BY MOUTH EVERY DAY SPIRONOLACT TAKE ORALLY DISCONT 02/28/2022 [id number] PRITCHETT ,NID 11/30/ [place] ONE 25MG ONE-HALF INUED 2 HI U 2021 [place] VA TAB TABLET HCS BY MOUTH EVERY DAY VITAMIN B TAKE 1 ORALLY ACTIVE 08/17/2022 [id number] WILLA ,BR 08/20/ [place] COMPLEX CAP CAPSULE 2 UCE R 2020 [place] V A BY MOUTH HCS EVERY DAY FOR NUTRITIO N VITAMIN B TAKE 1 ORALLY DISCONT 06/21/2021 [id number] PRISAC JORGENSEN,BR 09/07/ [place] COMPLEX CAP CAPSULE INUE [...] Drug active [place] allergy allergy 8 [facility] Immunizations Combined list of available immunizations from the Department of Defense and Veterans Affairs facilities. 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 IS [facility] BIN.TOTAL Ordering Prov ider: JAYY SAMS IN BLOOD Report Release d Date/Time: Feb 07, 2022 04:30 PM Reporting Lab: [facility] [address] [place] [phone] Performing Lab: [facility] [address] [place] [id number] FINGERSTI GLUCOSE 284 70 - 100 11/30 H Specimen Type : BLOOD [place] CK [MASS/VOLUM /2021 Comment: Sa ve Result Nurse Notified IS [facility] GLUCOSE E] IN Ordering Provid er: TEAM,CARDS TWO CAPILLARY Report Releas ed Date/Time: Nov 30, 2021 11:46 AM BLOOD Reporting Lab: [facility] [address] [place] [phone] Performing Lab: [facility] [address] [place] [phone] ALBUMIN ALBUMIN 3.4 3.5 - 5.2 04 L Specimen Type: PLASMA [place] [MASS/VOLUM /2021 No comment e ntered. IS [place] [facility] E] IN SERUM Ordering Pr ovider: ELIUD DINERO F OR PLASMA Report Releas ed Date/Time: Nov 29, 2021 07:53 PM Reporting Lab: [facility] [address] CARRION COOK [facility] [address] Performing Lab: [facility] [address] [facility] [address] BASIC CREATININE 1.2 0.7 - 1.2 11/30 Specimen Ty pe: PLASMA [place] METABOLIC [MASS/VOLUM /2021 No comment entered. IS [facility] PANEL+MG E] IN SERUM Ordering P rovider: ANGIE MALHOTRA OR PLASMA Report Releas ed Date/Time: Nov 29, 2021 08:12 PM Reporting Lab: [facility] [address] [place] [address] Performing Lab: [facility] [address] BASIC UREA 18 8 - 26 11/30 Specimen Type: P LASMA [place] METABOLIC NITROGEN /2021 No comment en tered. IS [facility] PANEL+MG [MASS/VOLUM Ordering P rovider: ANGIE MALHOTRA E] IN SERUM Report Rele ased Date/Time: Nov 29, 2021 08:12 PM OR PLASMA Reporting Lab : [facility] [address] [place] [address] Performing Lab: [facility] [place] [address] BASIC GLUCOSE 342 74 - 100 11/30 H Specimen Type: PLASMA [place] METABOLIC [MASS/VOLUM /2021 No comment entered. IS [facility] PANEL+MG E] IN SERUM Ordering P rovider: ANGIE MALHOTRA OR PLASMA Report Releas ed Date/Time: Nov 29, 2021 08:12 PM Reporting Lab: [facility] [address] [facility] [address] Performing Lab: [facility] [address] BASIC SODIUM 141 136 - 145 11/30 Specimen Type: PLASMA [place] METABOLIC [MOLES/VOLU /2021 No comment entered. IS [facility] PANEL+MG ME] IN Ordering Provi lou: ANGIE MALHOTRA SERUM OR Report Release d Date/Time: Nov 29, 2021 08:12 PM PLASMA Reporting Lab: [facility] [address] [place] [address] Performing Lab: [facility] [address] [place] [address] BASIC POTASSIUM 4.3 3.5 - 5.1 11/30 Specimen Typ e: PLASMA [place] METABOLIC [MOLES/VOLU /2021 No comment entered. IS [facility] PANEL+MG ME] IN Ordering Provi lou: ANGIE MALHOTRA SERUM OR Report Release d Date/Time: Nov 29, 2021 08:12 PM PLASMA Reporting Lab: [facility] [address] [place] [address] Performing Lab: [facility] [address] [place] [address] BASIC CHLORIDE 108 98 - 107 11/30 H Specimen Type: PLASMA [place] METABOLIC [MOLES/VOLU /2021 No comment entered. IS [facility] PANEL+MG ME] IN Ordering Provi lou: ANGIE MALHOTRA SERUM OR Report Release d Date/Time: Nov 29, 2021 08:12 PM PLASMA Reporting Lab: [facility] [address] [place] [address] Performing Lab: [facility] [address] [place] [address] BASIC CARBON 26 22 - 29 11/30 Specimen Type: P LASMA [place] METABOLIC DIOXIDE, /2021 No comment en tered. IS [facility] PANEL+MG TOTAL Ordering Provi lou: ANGIE MALHOTRA [MOLES/VOLU Report Rele ased Date/Time: Nov 29, 2021 08:12 PM ME] IN Reporting Lab: [facility] SERUM OR [facility] [address] PLASMA Performing Lab: [facility] [address] [place] [address] BASIC CALCIUM 8.6 8.4 - 10.2 11/30 Specimen Type : PLASMA [place] METABOLIC [MASS/VOLUM /2021 No comment entered. IS [facility] PANEL+MG E] IN SERUM Ordering P rovider: ANGIE MALHOTRA OR PLASMA Report Releas ed Date/Time: Nov 29, 2021 08:12 PM Reporting Lab: [facility] [address] [place] [address] Performing Lab: [facility] [address] [place] [address] BASIC MAGNESIUM 1.5 1.6 - 2.6 11/30 L Specimen Typ e: PLASMA [place] METABOLIC [MASS/VOLUM /2021 No comment entered. IS [facility] PANEL+MG E] IN SERUM Ordering P rovider: ANGIE MALHOTRA OR PLASMA Report Releas ed Date/Time: Nov 29, 2021 08:12 PM Reporting Lab: [facility] [address] [facility] [address] Performing Lab: [facility] [address] [facility] [address] BASIC ANION GAP 7 5 - 15 11/30 Specimen Type: PLASMA [place] METABOLIC IN SERUM OR /2021 No comment entered. IS [facility] PANEL+MG PLASMA Ordering Provi lou: ANGIE MALHOTRA Report Released Date/Time: Nov 29, 2021 08:12 PM Reporting Lab: [facility] [address] [facility] [address] Performing Lab: [facility] [address] [facility] [address] BASIC CREAT 63 60 11/30 Specimen Type: P LASMA [place] METABOLIC EGFR(CKD-EP /2021 No comment entered. IS [facility] PANEL+MG I) Ordering Provi lou: ANGIE MALHOTRA Report Released Date/Time: Nov 29, 2021 08:12 PM Reporting Lab: [facility] [address] [facility] [address] Performing Lab: [facility] [address] [facility] [address] CBC LEUKOCYTES 10.61 4.0 - 11.0 11/30 Specimen T ype: BLOOD [place] [#/VOLUME] /2021 No comment en tered. IS [facility] IN BLOOD BY Ordering Pr ovider: ANGIE MALHOTRA AUTOMATED Report Releas ed Date/Time: Nov 29, 2021 08:12 PM COUNT Reporting Lab: [facility] [address] [facility] [address] Performing Lab: [facility] [address] [facility] [address] CBC ERYTHROCYTE 4.33 4.6 - 6.2 11/30 L Specimen T ype: BLOOD [place] S /2021 No comment enter ed. IS [place] [facility] [#/VOLUME] Ordering Pro vider: ANGIE MALHOTRA IN BLOOD BY Report Rele ased Date/Time: Nov 29, 2021 08:12 PM AUTOMATED Reporting Lab : [facility] [address] [facility] [address] Performing Lab: [facility] [address] [facility] [address] CBC HEMOGLOBIN 14.6 13.5 - 11/30 Specimen Type : BLOOD [place] [MASS/VOLUM 17.9 /2021 No comment e [facility]tered. [facility] E] IN BLOOD Ordering Pr ovider: ANGIE MALHOTRA Report Released Date/Time: Nov 29, 2021 08:12 PM Reporting Lab: [facility] [address] [facility] [address] Performing Lab: [facility] [address] [facility] [address] CBC HEMATOCRIT 45.2 41 - 54 11/30 Specimen Type : BLOOD [place] [VOLUME /2021 No comment enter ed. IS [facility] FRACTION] Ordering Prov ider: ANGIE MALHOTRA OF BLOOD BY Report Rele ased Date/Time: Nov 29, 2021 08:12 PM AUTOMATED Reporting Lab : [facility] [address] [facility] [address] Performing Lab: [facility] [address] [facility] [address] CBC MCV 104.4 80 - 100 04/ H Specimen Type: BLOOD [place] [ENTITIC /2021 No comment ente red. IS [facility] VOLUME] BY Ordering Pro vider: ANGIE MALHOTRA AUTOMATED Report Releas ed Date/Time: Nov 29, 2021 08:12 PM COUNT Reporting Lab: [facility] [address] [facility] [address] Performing Lab: [facility] [address] [facility] [address] CBC MCH 33.7 27 - 33 11/30 H Specimen Type: B LOOD [place] [ENTITIC /2021 No comment ente red. [place] [facility] MASS] BY Ordering Provi lou: ANGIE MALHOTRA AUTOMATED Report Releas ed Date/Time: Nov 29, 2021 08:12 PM COUNT Reporting Lab: [facility] [address] [facility] [address] Performing Lab: [facility] [address] [facility] [address] CBC MCHC 32.3 32.0 - 11/30 Specimen Type: B LOOD [place] [MASS/VOLUM 37.5 No comment e ntered. [facility] E] BY Ordering Provid er: ANGIE MALHOTRA AUTOMATED Report Releas ed Date/Time: Nov 29, 2021 08:12 PM COUNT Reporting Lab: [facility] [address] [facility] [address] Performing Lab: [facility] [address] [facility] [address] CBC PLATELETS 71 150 - 400 04/08 L Specimen Typ e: BLOOD [place] [#/VOLUME] /2021 No comment en tered. [place] [facility] IN BLOOD BY Ordering Pr ovider: ANGIE MALHOTRA AUTOMATED Report Releas ed Date/Time: Nov 29, 2021 08:12 PM COUNT Reporting Lab: [facility] [address] [facility] [address] Performing Lab: [facility] [address] [facility] [address] CBC PLATELET 13.9 7.4 - 10.4 04/08 H Specimen Typ e: BLOOD [place] MEAN VOLUME /2021 No comment e ntered. [place] [facility] [ENTITIC Ordering Provi lou: ANGIE MALHOTRA VOLUME] IN Report Relea sed Date/Time: Nov 29, 2021 08:12 PM BLOOD BY Reporting Lab: [facility] AUTOMATED [address] [facility] [address] COUNT Performing Lab: [facility] [address] [facility] [address] CBC ERYTHROCYTE 14.7 11.5 - 04/08 H Specimen Typ e: BLOOD [place] DISTRIBUTIO 14.5 /2021 No comment e ntered. [place] [facility] N WIDTH Ordering Provid er: ANGIE MALHOTRA [RATIO] BY Report Relea sed Date/Time: Nov 29, 2021 08:12 PM AUTOMATED Reporting Lab : [facility] [address] [facility] [address] Performing Lab: [facility] [address] [facility] [address] CBC PLATELETS 17.8 0 - 10 04/08 H Specimen Type: BLOOD [place] RETICULATED /2021 No comment e ntered. [facility] /100 Ordering Provid er: ANGIE MALHOTRA PLATELETS Report Releas ed Date/Time: Nov 29, 2021 08:12 PM IN BLOOD BY Reporting L ab: [facility] AUTOMATED [address] [facility] [address] COUNT Performing Lab: [facility] [address] [facility] [address] FINGERSTI GLUCOSE 165 70 - 100 04/08 H Specimen Type : BLOOD [place] CK [MASS/VOLUM /2021 Comment: Sa ve Result Nurse Notified IS [facility] GLUCOSE E] IN Ordering Provid er: IRENE BURNS TWO CAPILLARY Report Releas ed Date/Time: Nov 30, 2021 06:32 AM BLOOD Reporting Lab: [facility] [address] [place] [address] Performing Lab: [facility] [address] [place] [address] FINGERSTI GLUCOSE 160 70 - 100 04/07 H Specimen Type : BLOOD [place] CK [MASS/VOLUM /2021 Comment: Sa ve Result Nurse Notified IS [facility] GLUCOSE E] IN Ordering Provid er: IRENE BURNS TWO CAPILLARY Report Releas ed Date/Time: Nov 29, 2021 07:48 PM BLOOD Reporting Lab: [facility] [address] [place] [address] Performing Lab: [facility] [address] [place] [address] FINGERSTI GLUCOSE 161 70 - 100 04/07 H Specimen Type : BLOOD [place] CK [MASS/VOLUM /2021 Comment: Sa ve Result Nurse Notified IS [facility] GLUCOSE E] IN Ordering Provid er: SAKSHI CROUCH CAPILLARY Report Releas ed Date/Time: Nov 29, 2021 07:04 PM BLOOD Reporting Lab: [facility] [address] [place] [address] Performing Lab: [facility] [address] [place] [address] FINGERSTI GLUCOSE 179 70 - 100 04/07 H Specimen Type : BLOOD [place] CK [MASS/VOLUM /2021 No comment e ntered. IS [facility] GLUCOSE E] IN Ordering Provid er: IRENE BURNS TWO CAPILLARY Report Releas ed Date/Time: Nov 29, 2021 08:08 PM BLOOD Reporting Lab: [facility] [address] [place] [address] Performing Lab: [facility] [address] [place] [place] [address] POC PH OF 7.321 7.35 - 04 L Specimen Type: A RTERIAL BLOOD [place] ABG/ELECT ARTERIAL 7.45 /2021 Comment: Chris ple Type = ARTERIAL IS [facility] ROLYTES BLOOD Ordering Provid er: IRENE BURNS TWO Report Released Date/Time: Nov 29, 2021 07:53 PM Reporting Lab: [facility] [address] [place] [address] Performing Lab: [facility] [address] [place] [address] POC CARBON 46.0 35.00 - 04/07 H Specimen Type: A RTERIAL BLOOD [place] ABG/ELECT DIOXIDE 45.00 /2021 Comment: [place] le Type = [place] [facility] ROLYTES [PARTIAL Ordering Provi lou: TEAM,CARDS TWO PRESSURE] Report Releas ed Date/Time: Nov 29, 2021 07:53 PM IN ARTERIAL Reporting L ab: [facility] B[facility] [address] [place] [address] Performing Lab: [facility] [address] [facility] [place] [address] POC OXYGEN 103 80.0 - 11/29 Specimen Type: A RTERIAL BLOOD [place] ABG/ELECT [PARTIAL 105.0 /2021 Comment: Chris ple Type = ARTERIAL IS [facility] PRESSURE] Ordering Prov ider: IRENE BURNS TWO IN ARTERIAL Report Rele ased Date/Time: Nov 29, 2021 07:53 PM BLOOD Reporting Lab: [facility] [address] [facility] [address] Performing Lab: [facility] [place] [address] POC CARBON 25 23.0 - 11/29 Specimen Type: A RTERIAL BLOOD [place] ABG/ELECT DIOXIDE, 27.0 /2021 Comment: Chris ple Type = ARTERIAL IS [facility] TOTAL Ordering Provid er: IRENE BURNS TWO [MOLES/VOLU Report Rele ased Date/Time: Nov 29, 2021 07:53 PM ME] IN Reporting Lab: [facility] ARTERIAL [address] [facility] [address] BLOOD Performing Lab: [facility] [address] POC BICARBONATE 23.8 22.0 - 04 Specimen Typ e: ARTERIAL BLOOD [place] ABG/ELECT [MOLES/VOLU 26.0 /2021 Comment: Sample Type = ARTERIAL IS [facility] ROLYTES ME] IN Ordering Provid er: IRENE BURNS TWO ARTERIAL Report Release d Date/Time: Nov 29, 2021 07:53 PM BLOOD Reporting Lab: [facility] [place] [address] Performing Lab: [facility] [address] POC BASE EXCESS -2 - 2 11/29 Specimen Typ e: ARTERIAL BLOOD [place] ABG/ELECT IN ARTERIAL /2021 Comment: Sample Type = [facility] ROL[facility] BLOOD BY Ordering Provi lou: IRENE BURNS TWO CALCULATION Report Rele ased Date/Time: Nov 29, 2021 07:53 PM Reporting Lab: [facility] [address] [place] [address] Performing Lab: [facility] [address] [place] [address] POC FRACTIONAL 97 95 - 98 11/29 Specimen Type : ARTERIAL BLOOD [place] ABG/ELECT OXYHEMOGLOB /2021 Comment: Sample Type = [facility] ROL[facility]TES IN IN Ordering Provid er: IRENE BURNS TWO ARTERIAL Report Release d Date/Time: Nov 29, 2021 07:53 PM BLOOD Reporting Lab: [facility] [address] [place] [address] Performing Lab: [facility] [place] [address] POC SODIUM 145 138.0 - 11/29 Specimen Type: A RTERIAL BLOOD [place] ABG/ELECT [MOLES/VOLU 146.0 /2021 Comment: Sample Type = [facility] ROL[facility]TES ME] IN Ordering Provid er: IRENE BURNS TWO ARTERIAL Report Release d Date/Time: Nov 29, 2021 07:53 PM BLOOD Reporting Lab: [facility] [address] [place] [address] Performing Lab: [facility] [place] [address] POC POTASSIUM 3.5 3.50 - 11/29 Specimen Type: ARTERIAL BLOOD [place] ABG/ELECT [MOLES/VOLU 5.00 /2021 Comment: Sample Type = [facility] ROL[facility]TES ME] IN Ordering Provid er: IRENE BURNS TWO ARTERIAL Report Release d Date/Time: Nov 29, 2021 07:53 PM BLOOD Reporting Lab: [facility] [address] [facility] [address] Performing Lab: [facility] [address] [facility] [address] POC HEMOGLOBIN 16.0 12.00 - 11/29 Specimen Type : ARTERIAL BLOOD [place] ABG/ELECT [MASS/VOLUM 17.00 /2021 Comment: Sample Type = [facility] ROL[facility] E] IN Ordering Provid er: IRENE BURNS TWO ARTERIAL Report Release d Date/Time: Nov 29, 2021 07:53 PM BLOOD Reporting Lab: [facility] [address] [place] [address] Performing Lab: [facility] [address] [facility] [address] POC HEMATOCRIT 47 38.0 - 11/29 Specimen Type : ARTERIAL BLOOD [place] ABG/ELECT [VOLUME 51.0 Comment: Samp le Type = ARTERIAL IS [facility] ROLYTES FRACTION] Ordering Prov ider: TEAM,CARDS TWO OF ARTERIAL Report Rele ased Date/Time: Nov 29, 2021 07:53 PM BLOOD Reporting Lab: [facility] [address] [facility] [address] Performing Lab: [facility] [address] [facility] [address] POC CALCIUM.ION 4.2 4.50 - 11/29 L Specimen Typ e: ARTERIAL BLOOD [place] ABG/ELECT IZED 5.30 Comment: Samp le Type = ARTERIAL IS [facility] ROLYTES [MOLES/VOLU Ordering Pr ovider: TEAM,CARDS TWO ME] IN Report Released Date/Time: Nov 29, 2021 07:53 PM ARTERIAL Reporting Lab: [facility] BLO[facility] [address] [facility] [address] Performing Lab: [facility] [address] [facility] [address] Vital Signs Combined list of inpatient and outpatient Vital Signs from Department of Defense and Veterans Affairs, ranging from 12 months to all on record, depending upon the facility. Vital Sign Value Date Comments Source SYSTOLIC BLOOD PRESSURE 98 11/30/2021 03:56:00 [facility] DIASTOLIC BLOOD PRESSURE 65 11/30/2021 03:56:00 [facility] PULSE OXIMETRY 88% 11/30/2021 03:56:00 [place] [facility] PULSE 88 11/30/2021 03:56:00 [place] [facility] RESPIRATION 16 11/30/2021 03:56:00 [place] [facility] SYSTOLIC BLOOD PRESSURE 104 11/29/2021 19:53:00 [facility] DIASTOLIC BLOOD PRESSURE 68 11/29/2021 19:53:00 [facility] PULSE OXIMETRY 94% 11/29/2021 19:53:00 [place] [facility] PULSE 91 11/29/2021 19:53:00 [place] [facility] SYSTOLIC BLOOD PRESSURE 123 09/21/2021 09:49:59 [facility] DIASTOLIC BLOOD PRESSURE 75 09/21/2021 09:49:59 [place] [...] SYSTOLIC BLOOD PRESSURE 114 06/20/2021 09:36:05 [place] [facility] DIASTOLIC BLOOD PRESSURE 79 06/20/2021 09:36:05 [place] [facility] PULSE OXIMETRY 96% 06/20/2021 09:36:05 [place] [facility] TEMPERATURE 96.8 06/18/2021 12:53:22 [facility] PULSE 62 06/18/2021 12:53[facility] RESP[facility] 16 06/18/2021 12:53:22 [facility] Encounters Combined list of: 1) Encounters from Department of Veterans Affairs facilities going back up to the last 18 months, not all VA inpatient encounters are included; 2) Encounters from the Department of Defense facilities going back up to 280 months. Location Location Encounter Encounter Reason Attending ADM DC Stat us Disposition Source Details Type Number For Provider Date Date Visit Outpatient [id number] TIFFANY BERNAL 09/27 [place] Encounter [id number] GRICELDA /2020 [facility] Outpatient [id number] 09/27 [place] Encounter [id number] /2020 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
with Provide r Comment s: Periphe ral neuropa thy ([facility] [[email or web address] [id number] 06) Outpatient [id number] 10/14 [place] Encounter [id number] /2021 [facility] Outpatient 95788-1.61 10/24 [place] Encounter [id number] /2020 [facility] Outpatient 83672-4.61 11/02 [place] Encounter [id number] /2020 [facility] [id number] 11/04 [place] Encounter [id number] /2020 [facility] 58503-3.61 11/06 [place] Encounter [id number] /2020 [facility] 81513-8.61 11/14 [place] Encounter [id number] /2020 [facility] OFFICE O/P 22251-6.61 Diagnos WILLA,BRU 11/15 [place] EST MOD [id number] is: CE R /2020 [facility] 30-39 MIN ICD-10- HCS CM E11.9 Type 2 diabete s mellitu s without complic ations< br/>wit h Provide r Comment s: Type 2 diabete s mellitu s (SCT 9718178 6) Outpatient 39436-3.61 11/15 [place] Encounter [id number] /2020 [facility] 97158-0.61 11/16 [place] Encounter [id number] /2020 [place] [address]-1.61 Diagnos MYLENE, 11/20 [place] DIG [id number] is: ANGEL K /2020 [facility] ASS[facility]MG[facility] ICD-10- HCS 5-10 CM E11.9 Type 2 diabete s mellitu s without complic ations< br/>wit h Provide r Comment s: Type 2 diabete s mellitu s (SCT 1798522 6) Outpatient [id number] 01/10 [place] Encounter [id number] /2020 [facility] OFFICE O/P 74305-9.61 Diagnos SUZETTE,SA 01/10 [place] EST [id number] is: NDRA L /2020 [facility] MINIMAL ICD-10- HCS PROB CM Z95.810 Presenc e of automat ic (implan table) cardiac defibri llator< br/>wit h Provide r Comment s: Cardiac defibri llator in situ (SCT 2545182 02) REM 43975-3.66 Diagnos DARLEENG 01/10 [place] INTERROG [id number] is: REGORY /2020 [facility] PM/IDS ICD-10- [place] [facility] CM Z95.810 Presenc e of automat ic (implan table) cardiac defibri llator< br/>wit h Provide r Comment s: Presenc e of automat ic (implan table) cardiac defibri llator Outpatient [id number] 01/11 [place] Encounter [id number] /2020 [facility] Out[facility] 46394-9.61 RONALD,Alan 01/11 [place] Encounter [id number] ERRY /2020 [facility] Outpatient 70688-201/12 [place] Encounter [id number] /2020 [facility] Outpatient 47309-301/12 [place] Encounter [id number] /2020 [facility] Outpatient LISHA CROUCH 01/12 [place] Encounter [id number] CE R /2020 [facility] OFFICE O/P Diagnos THOLAKANAH 01/15 [place] NEW MOD [id number] is: MOSESVENKA /2020 [facility] 45-59 MIN ICD-10- [facility] CM NARAS I48.19 Other persist ent atrial fibrill ation<b r/>with Provide r Comment s: Persist ent atrial fibrill ation (SNOMED CT 8938912 07) QVTP OL Diagnos MYLENE, 01/15 [place] DIG [id number] is: ANGEL K [facility] ASSMT&MGMT ICD-10- HCS 5-10 CM I50.22 Chronic systoli c (conges tive) heart failure
wi th Provide r Comment s: Chronic systoli c heart failure (SCT [id number] 04) QNHP OL Diagnos DAHLEN,AND 01/16 [place] [id number] is: HUI L [facility] ICD-10- HCS 5-10 CM J44.9 Chronic obstruc tive pulmona ry disease , unspeci fied
with Provide r Comment s: COPD, Stable OFFICE O/P Diagnos LISHA CROUCH 01/17 [place] EST LOW [id number] is: CE R /2020 [facility] 20-29 MIN ICD-10- HCS CM I50.22 Chronic systoli c (conges tive) heart failure
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
wi th Provide r Comment s: [facility] (curren t) use of anticoa gulants OFFICE O/P [id number] Diagnos QUENTIN SHAFFER 01/19 [place] EST MOD [id number] is: LL D /2020 [facility] 30-39 MIN ICD-10- HCS CM E11.9 Type 2 diabete s mellitu s without complic ations< br/>wit h Provide r Comment s: Type 2 diabete s mellitu s without complic ations Outpatient 55385-7.61 06/02 [place] Encounter [id number] /2020 [facility] 00207-7.61 06/02 [place] Encounter [id number] /2020 [facility] 85433-6.61 Diagnos CROUCHLISHA 01/29 [place] Encounter [id number] is: CE R /2020 [facility] ICD-10- HCS CM I50.22 Chronic systoli c (conges tive) heart failure
wi th Provide r Comment s: Chronic systoli c heart failure (SCT [id number] ) REM 39779-6.66 Diagnos Frans[place] MOREJON 02/09 [place] [id number] is: REGORY /2020 [facility] PM/IDS ICD-10- CO [facility] CM Z95.810 Presenc e of automat ic (implan table) cardiac defibri llator< br/>wit h Provide r Comment s: Presenc e of automat ic (implan table) cardiac defibri llator OFFICE O/P 87022-6.61 Diagnos BENIGNOBRADL 02/19 [place] [id number] is: EY A [facility] 60-74 MIN ICD-10- HCS CM I50.22 Chronic systoli c (conges tive) heart failure
wi th Provide r Comment s: Chronic systoli c heart failure (SCT 1629815 04) INTERROG 31283-561 Diagnos CHERELLESHERYLJANELL,L 02/19 [place] DEVICE [id number] is: CHRIS [facility] EVAL HEART ICD-10- HCS CM I51.7 Cardiom egaly<b r/>with Provide r Comment s: [place] [address]-3 Diagnos OMER,STEP 02/19 [place] DIG [id number] is: HANIE [facility] ASSMT&MGMT ICD-10- HCS 5-10 CM E11.9 Type 2 diabete s mellitu s without complic ations< br/>wit h Provide r Comment s: Type 2 diabete s mellitu s (SCT 9060136 6) [place] [address]-6 Diagnos Ofe SAMS 03/05 [place] PHARM ADDL 8.78521604 is: ORDAN [facility] 15 MIN ICD-10- HCS CM E11.9 Type 2 diabete s mellitu s without complic ations< br/>wit h Provide r Comment s: Type 2 diabete s mellitu s (SCT 8050846 6) OFFICE O/P 23797-0 Diagnos EMPERATRIZ GONSALEZ 03/05 [place] EST [id number] is: LLE [facility] MINIMAL ICD-10- HCS PROB CM I50.22 Chronic systoli c (conges tive) heart failure
wi th Provide r Comment s: Chronic Systoli c (Conges tive) Heart Failure Outpatient 68391-6.61 03/07 [place] Encounter [id number] /2021 [facility] 65227-1 MANOLO JOHNSON 03/14 [place] Encounter [id number] [facility] OFFICE O/P 66200-3 Diagnos Alan NAVA 03/15 [place] EST [id number] is: BERTRAND K [facility] MINIMAL ICD-10- HCS PROB CM Z95.810 Presenc e of automat ic (implan table) cardiac defibri llator< br/>wit h Provide r Comment s: Cardiac defibri llator in situ ([facility] [[email or web address]] [id number] 02) Outpatient 45344-0.61 Diagnos GLAUSER,NO 03/15 [place] Encounter [id number] is: RA N [facility] ICD-10- HCS CM I48.19 Other persist ent atrial fibrill ation<b r/>with Provide r Comment s: Persist ent atrial fibrill ation ([facility] [[email or web address]] 0457400 07) Outpatient 72791-7.61 03/20 [place] Encounter [id number] [facility] Outpatient 67550-2.61 SYSTEM,CIS 03/20 [place] Encounter [id number] -AR [facility] HCS ELECTROCAR 51434-161 Diagnos FLOREA,LEIGH 03/20 [place] DIOGRAM 8.60936449 is: REL [facility] COMPLETE ICD-10- HCS CM Z13.6 Encount er for screeni ng for cardiov ascular disorde rs
with Provide r Comment s: Encount er for Screeni ng for Cardiov ascular Disorde rs OFFICE O/P 41162-5.61 Diagnos GLAUSER,NO 03/20 [place] EST MOD [id number] is: RA N [facility] 30-39 MIN ICD-10- HCS CM I48.19 Other persist ent atrial fibrill ation<b r/>with Provide r Comment s: Persist ent atrial fibrill ation ([facility] [[email or web address]] 2651403 07) Inpatient 91622-8.61 Admit TEAM,CARD 03/20 [place] En[place] [id number] Reason: II [facility] A-[facility],D H[facility] OFETILI DE LOAD
Inpatient 90471-1.61 Admit TEAM,CARD 03/20 03/23 [place] Encounter [id number] Reason: II from [facility] inpatient HCS OFETILI treatment to DE the Service LOAD<br Connected /> (OPT-SC) rolls. Inpatient 18415-7.61 AMARI,L 03/20 03/20 [place] Encounter [id number] [facility]AS A /2020 [facility] Inpatient 36749-2.61 03/20 [place] En[place] [id number] /2020 [facility] INPATIENT 92145-0.61 Diagnos CHANDRASHE 03/20 03/20 [place] CONSULTATI [id number] is: WHIT,Seamus S /2020 [place] ICD-10- HCS CM I48.19 Other persist ent atrial fibrill ation<b r/>with Provide r Comment s: Persist ent atrial fibrill ation ([facility] [[email or web address]] [id number] 07) Inpatient 72962-8.61 RODERICK, 03/20 03/20 [place] Encounter [id number] IGLESIA R /2020 [facility] Inpatient 21882-4.61 HERTLING,M 03/20 03/20 [place] Encounter [id number] ICHAELA R /2020 [facility] Inpatient 63202-7.61 03/21 03/21 [place] En[place] [id number] /2020 [facility] Inpatient 67072-3.61 SYSTEM,CIS 03/21 03/21 [place] Encounter [id number] -ARK /2020 [facility] Inpatient 99966-6.61 ESCALERA,CAR 03/21 03/21 [place] Encounter [id number] A M /2020 [facility] Inpatient 89400-6.61 VELANGI,ME 03/21 03/21 [place] Encounter [id number] ATIK S /2020 [facility] [facility] [address]-5.61 Diagnos FRIDA,HILDA 03/21 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: ALD F /2020 [facility] IMPORT COORDINATOR ICD-10- HCS INDIVIDU CM 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 73291-6.61 03/22 03/22 [place] En[place] [id number] /2020 [facility] Inpatient 82141-0.61 RODRÍGUEZ LANDRY 03/22 03/22 [place] Encounter [id number] RLA /2020 [facility] REM 66490-4.66 Diagnos Fransisco MOREJON 03/22 [place] 2.32737441 is: REGORY /2020 [place] EVL PM/IDS ICD-10- CO [facility] CM Z95.810 Presenc e of automat ic (implan table) cardiac defibri llator< br/>wit h Provide r Comment s: Presenc e of automat ic (implan table) cardiac defibri llator Inpatient 15897-7.61 03/23 03/23 [place] En[place] [id number] /2020 [facility] Inpatient 65076-3.61 03/23 03/23 [place] En[place] [id number] /2020 [facility] Inpatient 21859-1.61 SYSTEM,CIS 03/23 03/23 [place] Encounter [id number] -ARK /2020 [facility] [facility] [address]-4.61 Diagnos HILDA GALICIA 03/23 03/23 [place]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
with Provide r Comment s: Chronic obstruc tive pulmona ry disease (SCT 2624047 5) Inpatient 37828-961 ANDREEA,[place] 03/23 03/23 [place] Encounter [id number] DUSTY J /2020 [facility] ANESTH 04491-8 Diagnos MICHELLE BOJORQUEZ 03/23 03/23 [place] CORRECT [id number] is: José MCCALLUM /2020 [facility] HEART ICD-10- HCS RHYTHM CM I48.19 Other persist ent atrial fibrill ation<b r/>with Provide r Comment s: Persist ent atrial fibrill ation ([facility] [[email or web address]] 4798254 07) Outpatient 03848-203/23 [place] Encounter [id number] [facility] Outpatient 74513-861 03/23 [place] Encounter [id number] [facility] 14684-5 Diagnos CHANDRASHE 03/23 [place] DISCHARGE [id number] is: Seamus SHERMAN OL [facility] DAY ICD-10- HCS CM I48.19 Other persist ent atrial fibrill ation<b r/>with Provide r Comment s: Persist ent atrial fibrill ation ([facility] [[email or web address]] 9553088 07) Outpatient 15831-061 03/26 [place] Encounter [id number] [facility] HC PRO 14045-661 Diagnos WINTER,03/26 [place] PHONE CALL 8.34608296 is: [facility] 11-20 MIN ICD-10- HCS CM 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
Provide r Comment s: [facility] (curren t) use of anticoa gulants Outpatient 84208-0 CARROLL SKAGGS 03/28 [place] Encounter [id number] E [facility] Outpatient 35731-061 03/30 [place] Encounter [id number] [facility] OFFICE O/P 17516-461 Diagnos Alan NAVA 04/02 [place] EST 8.51083303 is: [facility] ICD-10- H[facility] PROB CM Z95.810 Presenc e of automat ic (implan table) cardiac defibri llator< br/>wit h Provide r Comment s: Cardiac defibri llator in situ ([facility] [[email or web address]] 3588150 02) REM 15661-9.66 Diagnos NEETALEAHPADMINI,G 04/02 [place] 2.43987361 is: REGORY FRANC [place] EVL PM/IDS ICD-10- CO [facility] CM Z95.810 Presenc e of automat ic (implan table) cardiac defibri llator< br/>wit h Provide r Comment s: Presenc e of automat ic (implan table) cardiac defibri llator Outpatient 57223-604/12 [place] Encounter [id number] [facility] PRO 07874-3 Diagnos Ofe SAMS 04/12 [place] PHONE CALL 8.28026772 is: ORDAN L [facility] 11-20 MIN ICD-10- HCS CM E11.9 Type 2 diabete s mellitu s without complic ations< br/>wit h Provide r Comment s: Type 2 diabete s mellitu s ([facility] [[email or web address]] 3946915 6) PRO 99223-1 Diagnos Ofe SAMS 05/08 [place] PHONE CALL 8.96981488 is: ORDAN L [facility] 11-20 MIN ICD-10- HCS CM E11.9 Type 2 diabete s mellitu s without complic ations< br/>wit h Provide r Comment s: Type 2 diabete s mellitu s (SCT 5908074 6) Outpatient 98744-1.61 / [place] Encounter [id number] [facility] Outpatient 76600-306/06 [place] En[place] [id number] [facility] HC PRO Diagnos FLAQUITAOfe 06/13 [place] PHONE CALL 8.60763771 is: CHIVO L [facility] 11-20 MIN ICD-10- HCS CM E11.9 Type 2 diabete s mellitu s without complic ations< br/>wit h Provide r Comment s: Type 2 diabete s mellitu s ([facility] [[email or web address]] 4839808 6) OFFICE O/P Diagnos BENIGNOBRADL 06/18 [place] EST MOD 8.43989782 is: EY [facility] 30-39 MIN ICD-10- HCS CM I50.22 Chronic systoli c (conges tive) heart failure
wi th Provide r Comment s: Chronic systoli c heart failure ([facility] [[email or web address]] 8536851 04) TELEMONITO Diagnos WILLY WILBURN 06/19 [place] RING/HOME 8.65537869 is: [facility] PER MNTH ICD-10- HCS CM I50.22 Chronic systoli c (conges tive) heart failure
wi th Provide r Comment s: Chronic systoli c heart failure ([facility] [[email or web address]] 8109070 04) OFFICE O/P Diagnos WILLABRU 06/20 [place] EST LOW 8.46955646 is: CE [facility] 20-29 MIN ICD-10- HCS CM E11.9 Type 2 diabete s mellitu s without complic ations< br/>wit h Provide r Comment s: Type 2 diabete s mellitu s ([facility] [[email or web address]] 7900605 6) Outpatient 06/26 [place] En[place] [id number] [facility] HC PRO Diagnos WILLY WILBURN 06/26 [place] PHONE CALL 8.68870971 is: [facility] 21-30 MIN ICD-10- HCS CM I50.22 Chronic systoli c (conges tive) heart failure
wi th Provide r Comment s: Chronic systoli c heart failure ([facility] [[email or web address]] 8357902 04) Outpatient Diagnos WILLY WILBURN 07/03 [place] Encounter [id number] is: [facility] ICD-10- HCS CM I50.22 Chronic systoli c (conges tive) heart failure
wi th Provide r Comment s: Chronic systoli c heart failure (SCT 6854211 04) PRO 16781-1 Diagnos FLAQUITAOfe 07/11 [place] PHONE CALL 8.28659368 is: CHIVO L [facility] 21-30 MIN ICD-10- HCS CM E11.9 Type 2 diabete s mellitu s without complic ations< br/>wit h Provide r Comment s: Type 2 diabete s mellitu s (SCT 9016484 6) INJ 15493-9.61 Diagnos BENEDICT LYNNO 07/26 [place] PERFLUTREN 8.91216705 is: [facility] LIP ICD-10- HCS MICROS,ML CM I50.22 Chronic systoli c (conges tive) heart failure
wi th Provide r Comment s: Chronic systoli c heart failure (SCT 4542200 04) PRO 04715-5 Diagnos WILLY WILBURN 07/30 [place] PHONE CALL 8.09690563 is: [facility] 11-20 MIN ICD-10- HCS CM I50.22 Chronic systoli c (conges tive) heart failure
wi th Provide r Comment s: Chronic systoli c heart failure (SCT 9202758 04) Outpatient 76615-5 Diagnos WILLY WILBURN 07/31 [place] Encounter [id number] is: [facility] ICD-10- HCS CM J44.9 Chronic obstruc tive pulmona ry disease , unspeci fied
with Provide r Comment s: Chronic obstruc tive pulmona ry disease (SCT 5892364 5) Outpatient 61962-207/31 [place] En[place] [id number] [facility] REM 63612-1. Diagnos NEETARBACH,P 08/03 [place] 2.32627057 is: ATLY ROSS S EVL PM/IDS ICD-10- CO [facility] CM Z95.810 Presenc e of automat ic (implan table) cardiac defibri llator< br/>wit h Provide r Comment s: Presenc e of automat ic (implan table) cardiac defibri llator DEV Diagnos SUZETTE,SA 08/03 [place] INTERROG 8.02456145 is: NDRA [facility] REMOTE ICD-10- HCS 1/2/[employer] CM Z95.810 Presenc e of automat ic (implan table) cardiac defibri llator< br/>wit h Provide r Comment s: Cardiac defibri llator in situ ([facility] [[email or web address]] 0770527 02) HC PRO Diagnos Ofe SAMS 08/10 [place] PHONE CALL 8.70216912 is: CHIVO [facility] 11-20 MIN ICD-10- HCS CM E11.9 Type 2 diabete s mellitu s without complic ations< br/>wit h Provide r Comment s: Type 2 diabete s mellitu s (SCT 2378991 6) Outpatient Diagnos WILBURN,WILLY 09/03 [place] Encounter [id number] is: [facility] ICD-10- HCS CM I50.22 Chronic systoli c (conges tive) heart failure
wi Provide r Comment s: Chronic systoli c heart failure (SCT 4354859 04) HC PRO Ofe Stout 09/14 [place] PHONE CALL 8.61249695 is: CHIVO [facility] 11-20 MIN ICD-10- HCS CM E11.9 Type 2 diabete s mellitu s without complic ations< br/>wit h Provide r Comment s: Type 2 diabete s mellitu s (SCT 8813876 6) Outpatient 09/20 [place] Encounter [id number] [facility] ELECTROCAR Diagnos BENIGNO,BRADL 09/21 [place] DIOGRAM 8.83241359 is: EY [facility] COMPLETE ICD-10- HCS CM Z13.6 Encount er for screeni ng for cardiov ascular disorde rs
with Provide r Comment s: Encount er for Screeni ng for Cardiov ascular Disorde rs INTERROG 91174-3.61 Diagnos SUZETTE,SA 09/21 [place] DEVICE 8.08235902 is: NDRA [facility] EVAL HEART ICD-10- HCS CM Z95.810 Presenc e of automat ic (implan table) cardiac defibri llator< br/>wit h Provide r Comment s: Cardiac defibri llator in situ ([facility] [[email or web address]] 7727297 02) OFFICE O/P 86888-461 Diagnos GLAUSER,NO 09/21 [place] EST HI 8.24146309 is: RA N [facility] 40-54 MIN ICD-10- HCS CM I48.19 Other persist ent atrial fibrill ation<b r/>with Provide r Comment s: Persist ent atrial fibrill ation ([facility] [[email or web address]] 0809522 07) Outpatient 70591-6.61 / [place] En[place] [id number] /[facility]21 [facility] Out[facility] 86439-5.61 10/02 [place] Encounter [id number] /2021 [facility] HC PRO 18889-761 Diagnos GENNARO,JANET 10/09 [place] PHONE CALL 8.05963649 is: HRYN [facility] 11-20 MIN ICD-10- HCS CM I50.9 Heart failure , unspeci fied
with Provide r Comment s: Heart Failure , unspeci fied EXT 27812-7.61 Diagnos BENIGNO,BRADL 10/12 [place] ECG>48HR<7 8.84855191 is: EY A [facility] D ICD-10- HCS RECORDING CM I47.2 Ventric ular tachyca rdia
with Provide r Comment s: Ventric ular tachyca rdia HC PRO 46936-5.61 Diagnos Ofe SAMS 10/12 [place] PHONE CALL 8.23608917 is: ORDAN L [facility] 11-20 MIN ICD-10- HCS CM E11.9 Type 2 diabete s mellitu s without complic ations< br/>wit h Provide r Comment s: Type 2 diabete s mellitu s ([facility] [[email or web address]] 0257171 6) Outpatient 03036-5 Diagnos GENNAROJANET 10/18 [place] Encounter [id number] is: HRYN M /2021 [facility] ICD-10- HCS CM I50.9 Heart failure , unspeci fied
with Provide r Comment s: Heart Failure , unspeci fied Outpatient 34619-861 10/19 [place] En[place] [id number] /2021 [facility] Outpatient 29752-1.10/25 [place] Encounter [id number] /2021 [facility] Outpatient 01051-561 10/29 [place] Encounter [id number] /2021 [facility] Outpatient 25381-0.66 11/02 [place] Encounter [id number] /2021 [place] [facility] DEV 11351-2 Diagnos FASHINGBAU 11/02 [place] INTERROG [id number] is: GOPAL RAMIREZ /2021 O [facility] ICD-10- T HCS 1/2/[employer] CM Z95.810 Presenc e of automat ic (implan table) cardiac defibri llator< br/>wit h Provide r Comment s: Cardiac defibri llator in situ ([facility] [[email or web address]] 5185062 ) REM 44461-8.66 Diagnos ROWENA,KR 11/02 [place] INTER[place]OG 2.00986616 is: ISTI L /2021 [place] IS EVL PM/IDS ICD-10- CO [facility] CM Z95.810 Presenc e of automat ic (implan table) cardiac defibri llator< br/>wit h Provide r Comment s: Presenc e of automat ic (implan table) cardiac defibri llator Outpatient 62014-861 Diagnos GLAUSER,NO 11/05 [place] Encounter [id number] is: RA N /2021 [facility] ICD-10- HCS CM Z95.810 Presenc e of automat ic (implan table) cardiac defibri llator< br/>wit h Provide r Comment s: Cardiac defibri llator in situ ([facility] [[email or web address]] [id number] ) HC PRO 36181-3 Diagnos Ofe SAMS 11/09 [place] PHONE CALL 8.67588792 is: CHIVO L [facility] 5-10 MIN ICD-10- HCS CM E11.9 Type 2 diabete s mellitu s without complic ations< br/>wit h Provide r Comment s: Type 2 diabete s mellitu s (SCT 5181300 6) Outpatient 14205-7. Diagnos GENNARO,JANET 11/15 [place] Encounter [id number] is: HRYN M [facility] ICD-10- HCS CM I50.9 Heart failure , unspeci fied
with Provide r Comment s: Heart Failure , unspeci fied Outpatient 19969-1.61 Diagnos GENNARO,JANET 11/16 [place] Encounter [id number] is: HRYN M [facility] ICD-10- HCS CM I50.9 Heart failure , unspeci fied
with Provide r Comment s: Heart Failure , unspeci fied Outpatient 17064-6.66 11/19 [place] Encounter [id number] ALTAF IS [facility] DEV 49900-161 Diagnos JUDAH,L 11/19 [place] INTERROG 8.88594846 is: CHRIS [facility] A REMOTE ICD-10- HCS 1/2/[employer] CM I47.2 Ventric ular tachyca rdia
with Provide r Comment s: Ventric ular tachyca rdia REM 15584-8.66 Diagnos DARLEEN,G 11/19 [place] INTER[place]OG 2.56227299 is: REGORY ALTAF IS EVL PM/IDS ICD-10- CO [facility] CM Z95.810 Presenc e of automat ic (implan table) cardiac defibri llator< br/>wit h Provide r Comment s: Presenc e of automat ic (implan table) cardiac defibri llator Outpatient 77499-6.61 Diagnos HANNAH REED 11/21 [place] Encounter [id number] is: YENG [facility] ICD-10- HCS CM Z01.818 Encount er for other preproc edural examina tion
with Provide r Comment s: Encount er for other Preproc edural Examina tion Outpatient 39367-1.61 04/ [place] En[place] [id number] [facility] 04741-2.61 / [place] En[place] [id number] [facility] 61571-0.61 SYSTEM,CIS 11/29 [place] Encounter [id number] -ARK [facility] Outpatient 14494-2.61 / [place] En[place] [id number] [facility] Outpatient 42801-0.61 / [place] Encounter [id number] [facility] Outpatient 51721-5.61 11/29 [place] Encounter [id number] /2022 [facility]patient 23032-461 11/29 [place] Encounter [id number] /2022 [facility] [place] [facility] ECHO 21055-9 Diagnos FLOREA,LEIGH 11/29 [place] TRANSESOPH 8.76271625 is: REL [place] AGEAL ICD-10- HCS CM I49.3 Ventric ular prematu re depolar ization
wi Provide r Comment s: Unifoca l PVCs ([facility] [[email or web address]] 0281806 7) OFFICE O/P 84257-5 Diagnos NICOLEKRIT 11/29 [place] EST [place] 8.10805485 is: HIKA [facility] 40-54 MIN ICD-10- HCS CM Z01.818 Encount er for other preproc edural examina tion
with Provide r Comment s: Encount er for other preproc edural examina tion Outpatient 92062-961 RIC OLVERA 11/29 [place] Encounter [id number] E E [facility] [facility] PRGRMG 48592-361 Diagnos SZUMIJANELL,L 11/29 [place] EVAL 8.13156159 is: CHRIS [facility] IMPLANTABL ICD-10- HCS E DFB CM I51.7 Cardiom egaly<b r/>with Provide r Comment s: Cardiom egaly Outpatient 97583-6.61 11/29 [place] Encounter [id number] /2021 [facility] Outpatient 25354-5.61 SYSTEM,CIS 11/29 [place] Encounter [id number] -AR [facility] INJECTION 41733-6.61 Diagnos RENE 11/29 [place] EXT 8.32170884 is: MOSES,VEN [facility] VENOGRAPHY ICD-10- TAKRISHNA [facility] CM NARAS I48.19 Other persist ent atrial fibrill ation<b r/>with Provide r Comment s: Persist ent atrial fibrill ation (SCT 1710527 07) Outpatient 05338-5.61 11/29 [place] Encounter [id number] [facility] OFFICE O/P 30090-0.61 Diagnos LANNY RIVERA 11/29 [place] EST 8.27745484 is: HI [facility] MINIMAL ICD-10- HCS PROB CM D69.6 Thrombo cytopen ia, unspeci fied
with Provide r Comment s: Thrombo cytopen ia ([facility] [[email or web address]] 5571291 00) Outpatient 51993-9.61 11/29 [place] Encounter [id number] [facility] Inpatient 70165-8.61 Admit TEAM,CARDS 11/29 11/30 [place] Encounter [id number] Reason: TWO /2021 [facility] from [facility] CHANGE< inpatient br/> treatment. Inpatient 36738-9.61 SYSTEM,CIS 11/29 11/29 [place] Encounter [id number] -ARK /2021 [facility] Inpatient 60347-6.61 11/29 [place] En[place] [id number] /2021 [facility] Inpatient 01662-3.61 11/29 11/29 [place] Encounter [id number] /2021 [facility] Inpatient 27224-1.61 11/30 11/30 [place] Encounter [id number] /2021 [facility] Inpatient 22785-6.61 11/30 11/30 [place] Encounter [id number] /2021 [facility] Inpatient 35005-8.61 SYSTEM,CIS 11/30 11/30 [place] Encounter [id number] -ARK /2021 [facility] PM DEVICE 16979-561 Diagnos FASHINGBAU 11/30 11/30 [place] PROGR EVAL [id number] is: ER,DANIAARE /2021 [facility] ICD-10- T [facility] CM Z95.810 Presenc e of automat ic (implan table) cardiac defibri llator< br/>wit h Provide r Comment s: Cardiac defibri llator in situ (SCT [id number] 02) INITIAL 27293-5 Diagnos CARCORA,YA 11/30 11/30 [facility] [id number] is: SER P /2021 [facility] ICD-10- [facility] CM I48.19 Other persist ent atrial fibrill ation<b r/>with Provide r Comment s: Persist ent atrial fibrill ation ([facility] [[email or web address]] [id number] 07) Inpatient 28439-2.61 11/30 11/30 [place] Encounter [id number] /2021 [facility] Outpatient 17913-161 11/30 [place] Encounter [id number] [facility] Outpatient 36773-861 SYSTEM,CIS 12/01 [place] Encounter [id number] - [facility] 83322-4 Diagnos BENIGNO,BRADL 12/01 [place] DISCHARGE [id number] is: EY A /2021 [facility] ICD-10- [facility] CM I48.19 Other persist ent atrial fibrill ation<b r/>with Provide r Comment s: Persist ent atrial fibrill ation (SCT 6882066 07) Outpatient 64232-061 SYSTEM,CIS 12/02 [place] Encounter [id number] - [facility] Outpatient 83109-261 SYSTEM,CIS 12/03 [place] Encounter [id number] -AR [facility] Outpatient 34751-6.66 12/03 [place] Encounter [id number] [facility] DEV 14918-0 Diagnos SUZETTE,SA 12/03 [place] INTERROG [id number] is: NDRA L [place] REMOTE ICD-10- HCS 1/2/[employer] CM Z95.810 Presenc e of automat ic (implan table) cardiac defibri llator< br/>wit h Provide r Comment s: Cardiac defibri llator in situ ([facility] [[email or web address]] [id number] 02) [place] [address]-8.61 Diagnos UWIMBABAZI 12/04 [place] DIG [id number] is: ,DAHLIA [place] ASSMT&MGMT ICD-10- HCS 21+ CM Z51.81 Encount er for therape utic drug level monitor ing<br/ >with Provide r Comment s: Encount er for therape utic drug level monitor ing Outpatient 27012-8.61 12/05 [place] Encounter [id number] [facility] [place] [facility] [place] 35636-712/06 [place] Encounter [id number] [facility] [place] [facility] POSTOP 40615-0.61 Diagnos SUZETTE,SA 12/07 [place] FOLLOW-UP [id number] is: NDRA L [place] VISIT ICD-10- H[facility] CM Z95.810 Presenc e of automat ic (implan table) cardiac defibri llator< br/>wit h Provide r Comment s: Cardiac defibri llator in situ ([facility] [[email or web address]] [id number] 02) Outpatient 44181-6.12/12 [place] Encounter [id number] [facility] 96358-9.61 12/21 [place] Encounter [id number] [facility] [place] [facility] HC PRO 86430-4.61 Diagnos Ofe SAMS 12/21 [place] PHONE CALL [phone] is: OR[facility]AN L [facility] 11[facility] ICD-10- HCS CM E11.9 Type 2 diabete s mellitu s without complic ations< br/>wit h Provide r Comment s: Type 2 diabete s mellitu s (SCT [id number]) Outpatient [id number] Diagnos GENNARO,JANET 12/21 [place] Encounter [id number] is: [facility] ICD-10- HCS CM I50.9 Heart failure , unspeci fied
with Provide r Comment s: Heart Failure , unspeci fied Outpatient [id number] 01/02 [place] Encounter [id number] /2021 [facility] PM DEVICE 52030-1 Diagnos FASHINGBAU 01/07 [place] PROGR EVAL [id number] is: ER,MARGARE /2021 [facility] DUAL ICD-10- T HCS CM Z95.810 Presenc e of automat ic (implan table) cardiac defibri llator< br/>wit h Provide r Comment s: Cardiac defibri llator in situ (SCT [id number]) PRO 08963-7 Diagnos JANET BURDICK 01/08 [place] PHONE CALL [phone] is: HRYN M [facility] 11[facility] ICD-10- HCS CM I50.9 Heart failure , unspeci fied
with Provide r Comment s: Heart Failure , unspeci fied Outpatient 03816-801/11 [place] Encounter [id number] /2021 [facility] Outpatient [id number] Diagnos JANET BURDICK 01/18 [place] Encounter [id number] is: HRYN M /2021 [facility] ICD-10- HCS CM I50.9 Heart failure , unspeci fied
with Provide r Comment s: Heart Failure , unspeci fied HC PRO 04632-8 Diagnos Ofe SAMS 02/07 [place] PHONE CALL [phone] is: ORDAN L /2021 [facility] ICD-10- HCS CM E11.9 Type 2 diabete s mellitu s without complic ations< br/>wit h Provide r Comment s: Type 2 diabete s mellitu s (SCT [id number] 6) Outpatient 21799-4.66 02/12 [place] En[place] [id number] [place] [facility] Outpatient 36938-3.61 02/13 [place] Encounter [id number] [facility] Outpatient [id number] Diagnos GENNAROJANET 02/20 [place] Encounter [id number] is: HRYN M [facility] ICD-10- [facility] CM I50.9 Heart failure , unspeci fied
with Provide r Comment s: Heart Failure , unspeci fied Outpatient [id number] 03/06 [place] Encounter [id number] [facility] Social History Combined list of available smoking, tobacco, and other [facility]. Social History Type Response Date Comment Source Tobacco smoking status [facility] TOBACCO USE 11/29/2021 [facility] NHIS CURRENT NRT ACCEPT History of tobacco use [facility] TOBACCO USE 03/20/2021 [facility] CURRENT NRT DECLINE [facility] of [facility]2020 [facility] NO [facility] of tobacco [facility] 06/21/2019 [facility] NO [facility] of tobacco [facility] 06/09/2018 [facility] MIN OF [place] History of tobacco use CURRENT TOBACCO USER 06/20/2017 [facility] History of tobacco use CURRENT TOBACCO USER 06/19/2016 [facility] History of tobacco use CURRENT TOBACCO USER 06/21/2015 [facility] History of tobacco use CURRENT TOBACCO USER 03/22/2014 [facility] History of tobacco use CURRENT TOBACCO USER 03/25/2013 [facility] History of tobacco use CURRENT TOBACCO USER 02/05/2012 [facility] History of tobacco use CURRENT TOBACCO USER 01/01/2011 [facility] History of tobacco use CURRENT TOBACCO USER 03/07/2010 [facility] History of tobacco use CURRENT TOBACCO USER 02/21/2009 [facility] History of tobacco use CURRENT TOBACCO USER 11/06/2007 [facility] History of tobacco use CURRENT TOBACCO USER 01/02/2007 [facility] This section is an [facility] empty social history section. Plan of Care List of future care activities from [facility] facilities. Additional future care activities may be listed in the Assessment and Plan section. Date/Time Care Activity Care Activity Detail Facility 03/21/2022 AMBULATORY - NONE AMBULATORY - NONE [facility] Advance Directives List of completed, amended, or rescinded Advance Directives on record at [facility] facilities. An actual copy of the Directive is not included. Date Advance Directive Provider Source 03/06/2005 ADVANCE DIRECTIVE GANESH RODRIGUEZ [facility]
--- OUTSIDE RECORDS SUMMARY | 2022-04-02 16:34 | XMS_ITS | Encounter Summary ---
:[address] [facility] Address [address] [place] [address] Care Team Providers Name Role Phone SAKSHI [...] MEDICARE MEDICARE PART Jun 25, PART B [id number] [phone] Saumya QUINONES PATIENT (WNR) (M) B 2011 78A 0 AVID MEDICARE MEDICARE PART Sep 25, PART A [id number] Saumya MICHELE (WNR) (M) A 2009 78A [id number] AVID MEDICARE MEDICARE PART Sep 25, PART B [id number] Saumya MICHELE (WNR) (M) B 2009 78A [id number] AVID MEDICARE MEDICARE PART Sep 25, PART A [id number] [id number] Saumya QUINONES PATIENT (WNR) (M) A 2009 78A 0 AVID Selected Encounter This section includes the information on record at [place] for the Encounter. Date/Time Encounter Type Encounter Reason Provider Source Description Nov 29, 2021 OFFICE O/P EST ANESTHESIA ICD-10-CM Z01.818 NADIRA RIVERA 08:02 AM HI 40-54 MIN PRE/POST-OP Encounter for A CONSULT other preprocedural examination with Provider Comments: Encounter for other preprocedural examination IHE Encounter Template Text not used by [facility] Assessments - Encounter Diagnoses This section includes the primary and secondary diagnoses documented for the Encounter. 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 Nov 29, 2021 SECONDARY Chronic obstructive NICOLE,ALESIA [place] 08:03 AM pulmonary disease, A [facility] unspecified Nov 29, 2021 SECONDARY Chronic systolic [place] 08:03 AM (congestive) heart A [facility] failure Nov 29, 2021 SECONDARY Essential (primary) [place]LEALESIAAP [place] 08:03 AM hypertension A [facility] Nov 29, 2021 SECONDARY Hyperlipidemia, [place]IVERA [place] 08:[facility] AM unspecified A [facility] Nov 29, 2021 SECONDARY Other persistent NICOLE,ALESIA [place] 08:[facility] AM atrial fibrillation A [facility] Nov 29, 2021 SECONDARY Personal history of [place] RIVERA [place] 08:03 AM colonic polyps A [facility] Nov 29, 2021 SECONDARY Polyneuropathy in [place] R[place]A [place] 08:03 AM diseases classified A [facility] elsewhere Nov 29, 2021 SECONDARY 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 The data comes from all [facility]. Appointment Date/Time Appointment Type Appointment Facili ty Name Dec 21, 2021 09:30 AM AMBULATORY - NONE [facility] January 07, 2022 01:30 PM AMBULATORY - MEDICINE [facility] Feb 05, 2022 07:00 AM AMBULATORY - NONE [facility] Feb 07, 2022 09:30 AM AMBULATORY - NONE [facility] Feb 13, 2022 10:00 AM AMBULATORY - NONE [facility] Mar 21, 2022 09:30 AM AMBULATORY [facility] Active, Pending, and Scheduled Orders This section includes a listing of several types of active, pending, and scheduled orders, including clinic medications orders, diagnostic test orders, procedure orders and consult orders; where the start date of the order is 45 days before the date of the Encounter or 45 days after the date of the Encounter. The data comes from all [facility]. Test Date/Time Test Type Test Details [...] [facility] [address] [facility] [address] Performing Lab: [facility] [address] [facility] [address] FINGERSTICK GLUCOSE 284 mg/dL H 70-100 Nov 30, 2021 09:47 AM [facility] ALBUMIN Specim en Type: PLASMA No comment enter ed. Ordering Provid er: ELIUD DINERO Report Released Date/Time: Nov 29, 2021 07:53 PM Reporting Lab: [facility] [address] [facility] [address] Performing Lab: [facility] [address] ALBUMIN 3.4 g/dL L 3.5-5.2 Nov 30, 2021 09:47 [facility] BASIC METABOLIC Specimen Type: PLASMA AM PANEL+MG No comment enter ed. Ordering Provid er: NAGIE MALHOTRA Report Released Date/Time: Nov 29, 2021 08:12 PM Reporting Lab: [facility] [address] [facility] [address] Performing Lab: [facility] [address] CREATININE 1.2 mg/dL 0.7-1.2 UREA NITROGEN 18 [...] 08:12 PM Reporting Lab: [facility] [address] Performing Lab: [facility] [address] WBC 10.61 10*3/uL 4.0-11.0 RBC 4.33 10*6/uL [...] [facility] [address] [facility] [address] Performing Lab: [facility] [address] [facility] [address] FINGERSTICK GLUCOSE 165 mg/dL H 70-100 Nov 29, 2021 07:35 [facility] FINGERSTICK GLUCOSE Speci men Type: BLOOD PM Comment: [place] Nurse Notified Ordering Provid er: IRENE BURNS TWO Report Released Date/Time: Nov 29, 2021 07:48 PM Reporting Lab: [facility] [address] [facility] [address] Performing Lab: [facility] [address] [facility] [address] FINGERSTICK GLUCOSE 160 mg/dL H 70-100 Nov 29, 2021 06:52 [facility] FINGERSTICK GLUCOSE Speci men Type: BLOOD PM Comment: [place] Nurse Notified Ordering Provid er: SAKSHI CROUCH Report Released Date/Time: Nov 29, 2021 07:04 PM Reporting Lab: [facility] [address] [facility] [address] Performing Lab: [facility] [address] [facility] [address] FINGERSTICK GLUCOSE 161 mg/dL H 70-100 Nov 29, 2021 04:18 [facility] FINGERSTICK GLUCOSE Speci men Type: BLOOD PM No comment enter ed. Ordering Provid er: IRENE BURNS Report Released Date/Time: Nov 29, 2021 08:08 PM Reporting Lab: [facility] [address] [facility] [address] Performing Lab: [facility] [address] [facility] [address] FINGERSTICK GLUCOSE 179 mg/dL H 70-100 Nov 29, 2021 03:26 [facility] POC ABG/ELECTROLYTES Spec imen Type: ARTERIAL BLOOD PM Comment: Sample Type = ARTERIAL Ordering Provid er: IRENE BURNS Report Released Date/Time: Nov 29, 2021 07:53 PM Reporting Lab: [facility] [address] [facility] [address] Performing Lab: [facility] [address] POC PH 7.321 L 7.35-7.45 POC PCO2 [...] 08:08 PM Reporting Lab: [facility] [address] Performing Lab: [facility] [address] FINGERSTICK GLUCOSE 188 mg/dL H 70-100 Nov 29, 2021 02:06 [facility] POC ABG/ELECTROLYTES Spec imen Type: ARTERIAL BLOOD PM Comment: Sample Type = ARTERIAL Ordering Provid er: TEAM,CARDS TWO Report Released Date/Time: Nov 29, 2021 07:53 PM Reporting Lab: [facility] [address] Performing Lab: [facility] [address] POC PH 7.313 L 7.35-7.45 POC PCO2 [...] [facility] [address] [facility] [address] Performing Lab: [facility] [address] [facility] [address] FINGERSTICK GLUCOSE 236 mg/dL H 70-100 Nov 29, 2021 01:52 PM [facility] POC ACT Specim en Type: BLOOD No comment enter ed. Ordering Provid er: IRENE BURNS Report Released Date/Time: Dec 03, 2021 01:31 PM Reporting Lab: [facility] [address] [facility] [address] Performing Lab: [facility] [address] [facility] [address] POC ACT 135 s 84-139 Nov 29, 2021 01:16 PM [facility] POC ACT Specim en Type: BLOOD No comment enter ed. Ordering Provid er: IRENE BURNS Report Released Date/Time: Dec 03, 2021 01:30 PM Reporting Lab: [facility] [address] [facility] [address] Performing Lab: [facility] [address] [facility] [address] POC ACT 355 s 84-139 Nov 29, 2021 12:49 PM [facility] POC ACT Specim en Type: BLOOD No comment enter ed. Ordering Provid er: IRENE BURNS Report Released Date/Time: Dec 03, 2021 01:30 PM Reporting Lab: [facility] [address] [facility] [address] Performing Lab: [facility] [address] [facility] [address] POC ACT 367 s 84-139 Nov 29, 2021 12:48 [facility] POC ABG/ELECTROLYTES Spec imen Type: ARTERIAL BLOOD PM Comment: Sample Type = ARTERIAL Ordering Provid er: IRENE BURNS Report Released Date/Time: Nov 29, 2021 07:53 PM Reporting Lab: [facility] [address] [facility] [address] Performing Lab: [facility] [address] [facility] [address] POC PH 7.289 L 7.35-7.45 POC PCO2 [...] men Type: BLOOD PM Comment: Abram R esult Ordering Provid er: IRENE BURNS TWO Report Released Date/Time: Nov 29, 2021 08:08 PM Reporting Lab: [facility] [address] [facility] [address] Performing Lab: [facility] [address] [facility] [address] FINGERSTICK GLUCOSE 186 mg/dL H 70-100 Nov 29, 2021 12:26 PM [facility] POC ACT Specim en Type: BLOOD No comment enter ed. Ordering Provid er: IRENE BURNS TWO Report Released Date/Time: Dec 03, 2021 01:30 PM Reporting Lab: [facility] [address] [facility] [address] Performing Lab: [facility] [address] [facility] [address] POC ACT 367 s 84-139 Nov 29, 2021 11:58 AM [facility] POC ACT Specim en Type: BLOOD No comment enter ed. Ordering Provid er: IRENE BURNS TWO Report Released Date/Time: Dec 03, 2021 01:30 PM Reporting Lab: [facility] [address] [facility] [address] Performing Lab: [facility] [address] [facility] [address] POC ACT 338 s 84-139 Nov 29, 2021 11:53 [facility] FINGERSTICK GLUCOSE Speci men Type: BLOOD AM Comment: Save R esult Ordering Provid er: IRENE BURNS TWO Report Released Date/Time: Nov 29, 2021 08:08 PM Reporting Lab: [facility] [address] [facility] [address] Performing Lab: [facility] [place] [address] [facility] [address] FINGERSTICK GLUCOSE 225 mg/dL H 70-100 Nov 29, 2021 11:30 AM [facility] POC ACT Specim en Type: BLOOD No comment enter ed. Ordering Provid er: IRENE BURNS Report Released Date/Time: Dec 03, 2021 01:30 PM Reporting Lab: [facility] [place] [facility] [address] Performing Lab: [facility] [place] [facility] [address] POC ACT 355 s 84-139 Nov 29, 2021 11:26 [facility] POC ABG/ELECTROLYTES Spec imen Type: ARTERIAL BLOOD AM Comment: Sample Type = ARTERIAL Ordering Provid er: IRENE BURNS Report Released Date/Time: Nov 29, 2021 07:53 PM Reporting Lab: [facility] [place] [facility] [address] Performing Lab: [facility] [place] [facility] [address] POC PH 7.317 L 7.35-7.45 POC PCO2 [...] PM Reporting Lab: [facility] [place] [facility] [address] Performing Lab: [facility] [place] [facility] [address] FINGERSTICK GLUCOSE 221 mg/dL H 70-100 Nov 29, 2021 11:02 AM [facility] POC ACT Specim en Type: BLOOD No comment enter ed. Ordering Provid er: IRENE BURNS Report Released Date/Time: Dec 03, 2021 01:30 PM Reporting Lab: [facility] [place] [address] [facility] [address] Performing Lab: [facility] [place] [address] [facility] [address] POC ACT 294 s 84-139 Nov 29, 2021 10:26 AM [facility] POC ACT Specim en Type: BLOOD No comment enter ed. Ordering Provid er: IRENE BURNS Report Released Date/Time: Dec 03, 2021 01:30 PM Reporting Lab: [facility] [address] [facility] [address] Performing Lab: [facility] [place] [address] [facility] [address] POC ACT 329 s 84-139 Nov 29, 2021 10:06 AM [facility] POC ACT Specim en Type: BLOOD No comment enter ed. Ordering Provid er: IRENE BURNS Report Released Date/Time: Dec 03, 2021 01:30 PM Reporting Lab: [facility] [place] [address] [facility] [address] Performing Lab: [facility] [address] [facility] [address] POC ACT 312 s 84-139 Nov 29, 2021 09:58 [facility] POC ABG/ELECTROLYTES Spec imen Type: ARTERIAL BLOOD AM Comment: Sample Type = ARTERIAL Ordering Provid er: IRENE BURNS Report Released Date/Time: Nov 29, 2021 07:53 PM Reporting Lab: [facility] [place] [address] [facility] [address] Performing Lab: [facility] [place] [address] [facility] [address] POC PH 7.334 L 7.35-7.45 POC PCO2 [...] [facility] [address] [facility] [address] Performing Lab: [facility] [address] [facility] [address] FINGERSTICK GLUCOSE 194 mg/dL H 70-100 Nov 29, 2021 09:45 AM [facility] POC ACT Specim en Type: BLOOD No comment enter ed. Ordering Provid er: IRENE BURNS Report Released Date/Time: Dec 03, 2021 01:30 PM Reporting Lab: [facility] [address] [facility] [address] Performing Lab: [facility] [address] [facility] [address] POC ACT 269 s 84-139 Nov 29, 2021 08:59 AM [facility] POC ACT Specim en Type: BLOOD No comment enter ed. Ordering Provid er: IRENE BURNS Report Released Date/Time: Dec 03, 2021 01:30 PM Reporting Lab: [facility] [address] [facility] [address] Performing Lab: [facility] [address] [facility] [address] POC ACT 135 s 84-139 Nov 29, 2021 [facility] COVID-19 AND FLU/RSV Specime n Type: NASOPHARYNGEAL 07:05 AM DIAG PANEL(CEPHEID) Comment: Ce pheid GeneXpert (618) Ordering Provid er: KATHERINE FIGUEROA Report Released Date/Time: Oct 29, 2021 12:22 PM Reporting Lab: [facility] [address] [facility] [address] Performing Lab: [facility] [address] [facility] [address] COVID-19 (CEPHEID) Not Detected Not Dete cted [...] 12:22 PM Reporting Lab: [facility] [address] Performing Lab: [facility] [address] CREATININE 1.4 mg/dL H 0.7-1.2 UREA NITROGEN [...] 12:22 PM Reporting Lab: [facility] [address] Performing Lab: [facility] [address] WBC 7.40 10*3/uL 4.0-11.0 RBC 5.17 10*6/uL [...] 12:22 PM Reporting Lab: [facility] [address] Performing Lab: [facility] [address] .INR 1.1 0.8-1.1 .PT 13.1 s H 9.4-12.5 Nov 29, 2021 [facility] ACT PART Specimen Typ e: PLASMA 06:38 AM THROMBO TIME No comment enter ed. Ordering Provid er: KATHERINE FIGUEROA Report Released Date/Time: Oct 29, 2021 12:22 PM Reporting Lab: [facility] [address] [place] [facility] [address] Performing Lab: [facility] [address] [facility] [address] APTT 33.3 s 25.1-36.5 Vital Signs: All taken on the encounter date This section contains inpatient and outpatient Vital Signs collected on the date of the Encounter. Date/Time Temperature Pulse Blood Respiratory SP02 Pain Height Weight Axel dy Source Pressure Rate Mass Index Nov 29, 98.3 F 96 99/66 18 /min 90 % 0 [place] 2021 11:07 /min mm[Hg] [facility] Nov 29 96 % [place] 2021 08:40 /min [facility] Nov 29, 232 lb 30 [place] 2021 08:38 [facility] Nov 29 112/73 97 % [place] 2021 08:35 /min mm[Hg] [facility] Nov 29 113/69 90 % [place] 2021 08:15 /min mm[Hg] [facility] Social History: Smoking Status (Most [...] Comment Facility Nov 29, 2021 08:36 PM [place]-VAAES TOBACCO USE CURRENT NRT [facility] ACCEPT Tobacco Use History This section includes a history of the smoking, or tobacco- related health factors, that were collected on or before the date of the Encounter. The data comes from the [place] facility where the Encounter took place. 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 [facility] Nov 15, 2020 10:00 AM VA-TOBACCO USE MED NO [place] [facility] Nov 15, 2020 10:00 AM VA-TOBACCO USER EVERY DAY [facility] Jun 21, 2019 02:29 PM VA-TOBACCO USE 30 YEARS OR MORE [facility] Jun 21, 2019 02:29 PM VA-TOBACCO USE ADVICE [place] [facility] Jun 21, 2019 02:29 PM 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 [facility] Jun 21, 2019 [...] 03:48 PM VA-TOBACCO USE ADVICE [place] [facility] Jun 09, 2018 03:48 PM 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 [facility] Jun 09, 2018 03:48 PM VA-TOBACCO USE MED NO [place] [facility] Jun 09, 2018 03:48 PM VA-TOBACCO USE WI 30 MIN OF WAKEUP [facility] Jun 09, 2018 03:48 PM VA-TOBACCO USER EVERY DAY [facility] Jun 20, 2017 07:53 AM CURRENT TOBACCO USER [facility] Jun 19, 2016 08:41 AM [facility] Jun 21, 2015 08:15 AM [facility] Mar 22, 2014 10:03 AM [facility] Mar 25, 2013 11:01 AM [facility] Feb 05, 2012 08:55 AM [facility] January 01, 2011 09:26 AM [facility] Mar 07, 2010 10:02 AM [facility] Feb 21, 2009 08:17 AM [facility] Nov 06, 2007 10:02 AM [...] MONET LUDWIG [facility] PAUL MICHELE [id number] -[birth year] 9 M Exm Date: NOV 30, 2021@07:05 Req Phys: CHERRY MENDOZA Loc: 3LSOB/ 2@08:05 Img Loc: MAIN X-RAY Service: zzcard sect (Case [id number] COMPLETE) CHEST 2 VIEWS PA AND LAT (R AD Detailed) CPT:67762 Reason for Study: s/p upgrade ICD adding an A l ead Clinical History: Post ICD or Pacemaker: Verify Lead Placement. Kaycee IS NOT under investigation for COVID-19 or is COVID-19 negative s/p upgrade ICD adding an A lead Responsible pr ovider name and phone number to notify for critical findings if other than user placing the order and pager listed below: User placing orders pager: [phone] LAST CREATININE 1.4 H (11/29/21) Report Status: Verified Date Reported: NOV 30, 2021 Date Verified: NOV 30, 2021 Seed Sales Manager E-Sig:/ES/MONET LUDWIG MD, FACR, C CD [...] 06:25 PM CHEST 1 VIEW: MAGDALENE DAVIDSON [facility] [place] [id number] -[birth year]UL [birth year] 9 M Exm Date: NOV 29, 2021@18:25 Req Phys: CHERRY MENDOZA Pat Loc: [facility] [address] A[facility] (Req'g Loc) Img Loc: MAIN X-RAY Service: Unknown (Case [id number] COMPLETE) CHEST 1 VIEW (RAD Detailed) CPT:92609 Reason for Study: s/p upgrade ICD adding an A l ead Clinical History: Immediate Post-Op Pacemaker/ICD placement Kaycee IS NOT under investigation for COVID-19 or is COVID-19 negative s/p upgrade his ICD to dual chamber (adding an A lead) Responsible provider name and phone number to n otify for critical findings if other than user placing the order a nd pager listed below: User placing orders pager: [phone] LAST CREATININE 1.4 H (11/29/21) Report Status: Verified Date Reported: NOV 29, 2021 Date Verified: NOV 29, 2021 Seed Sales Manager E-Sig:/ES/MAGDALENE DAVIDSON MD Report: DATE/TIME REGISTERED: [...] Primary Interpreting Staff: MAGDALENE DAVIDSON MD, RADIOLOGIST (Seed Sales Manager) /LUAN Encounter Notes: All associated encounter notes This section contains the clinical notes associated to the Encounter. Date/Time Encounter Note(s) Provider Source Nov 29, 2021 07:13 PM ANESTHESIOLOGY NOTE: RAND OLVERA [facility] LOCAL TITLE: ANESTHESIA POST-ANESTHESIA EVALUAT ION STANDARD TITLE: ANESTHESIOLOGY NOTE DATE OF NOTE: NOV 29, 2021@19:13 ENTRY DATE: NOV 29, 2021@19:13:39 AUTHOR: RAND OLVERA COSIGNER: URGENCY: STATUS: COMPLETED POST-ANESTHESIA EVALUATION PACU [...] STATUS AT SIGNOUT -- stable DISPOSITION -- hernandez /billy/ RAND OLVERA MD ANESTHESIOLOGIST Signed: 11/29/2021 19:14 Nov 29, 2021 09:36 AM UROLOGY [facility]ENDING [facility]: UROLOGY INPT PROGRESS NOTE STANDARD TITLE: UROLOGY ATTENDING NOTE DATE OF NOTE: NOV 29, 2021@09:36 ENTRY DATE: NOV 29, 2021@09:36:41 AUTHOR: AUSTEN TORO EXP COSIGNER: URGENCY: STATUS: COMPLETED Paged by RN for difficult bowman prior to cardiac procedure, unable to obtain urine return with 14fr bowman, balloon not inflat ed. STANDARD CATHETER PLACEMENT Patient prepped and drapped in standard sterile fashion. 1 full urojet instilled within urethra. 18fr coude p laced without resistance into bladder, hubbed, 10 cc instilled within balloon, seated well and return of clear yellow urine. Plan: -Bowman per primary team. If patient stays overnight, please keep bowman catheter overnight. /billy/ AUSTEN TORO MD RESIDENT Signed: 11/29/2021 10:01 Nov 29, 2021 08:02 AM ANESTHESIOLOGY NOTE: CANDIS RIVERA [facility] LOCAL TITLE: ANESTHESIA PRE-INDUCTION NOTE STANDARD TITLE: ANESTHESIOLOGY NOTE DATE OF NOTE: NOV 29, 2021@08:02 ENTRY DATE: NOV 29, 2021@08:02:55 AUTHOR: CANDIS RIVERA EXP COSIGNER: URGENCY: STATUS: COMPLETED ANESTHESIA PREINDUCTION NOTE Patient identified by name and either date of b irth or full social security. -- Scheduled procedure: ^@@^ -- PREOPERATIVE ASSESSMENT -- ASA status: IV Patient's preoperative assessment reviewed----- -- There are no significant changes, new condition s, or additions from the patient's anesthesia preoperative assessment No personal or family history of anesthesia com plications NPO status --- Met ASA guidelines (>2 hrs clear liquids, >6 hr s light meal, >8 hrs heavy meal) Gastroesophogeal Reflux Disease: No Functional Capacity in Measure of Exercise Cme pablo before surgery (METS): <4 Obstructive sleep apnea: No ----SOCIAL HISTORY Tobacco: Yes Current, 50-60 PYH Alcohol: Yes Substance use: No Naltrexone: No Buprenorphine: No No medications taken today. Physical Exam -- HT: 73.5 in [186.7 cm] (09/21/2021 09:49) WT: 223.7 lb [101.47 kg] (09/21/2021 09:49) BMI: 29.2 Vital signs stable Airway Exam: Mallampati Class: III Mouth opening: full Neck: full range of motion Thyromental distance: >6cm Dentition: edentulous Cardiac System: Cardiovascular System: Abnormal irregular rhythm Respiratory: Clear to auscultation, normal respiratory rate and effort Mental/Neuro exam: Alert, oriented, calm, cooperative Anesthetic technique -- General Anesthesia Airway Endotracheal tube: oral, video laryngoscope Induction: propofol Maintenance: balanced Monitors/Equipment: Standard montitors--------- -- Non-invasive: 2nd IV Invasive monitors: arterial line, central venou s line, transesophegeal echocardiogram Postop nausea/vomiting prophylaxis -- Ondansetron, Dexamethasone Pathways -- Hyperglycemia Patient/manufacturers representative verbally consents to blo od products Informed consent discussion of anesthesia plan The anesthetic plan has been discussed with the patient and/or responsible manufacturers representative. The patient/manufacturers representative has been encouraged to ask questions and any concerns have been addressed. The risks, benefits, side effects, and alternative options of the plan we re discussed. The patient/manufacturers representative endorses understanding o f the information disclosed. The patient/manufacturers representative voluntarily elects t o move forward with the anesthetic plan. Planned destination -- Phase I PACU /es/ CANDIS RIVERA MD ANESTHESIOLOGIST Signed: 11/29/2021 08:06
== END 2022-03-12 10:35 | disposition home or self-care (01) ==
LOC: ED 19:44 → MEDSURG 21:57
PROVIDERS: Admitting Provider Internal Medicine; Emergency Provider Family Medicine; Visit Provider Internal Medicine
DX: Z45.02 Encounter for adjustment and management of automatic implantable cardiac defibrillator (principal); Z95.810 Presence of automatic (implantable) cardiac defibrillator; I47.2 Ventricular tachycardia; I44.0 Atrioventricular block, first degree; I48.91 Unspecified atrial fibrillation; I50.41 Acute combined systolic (congestive) and diastolic (congestive) heart failure; I25.5 Ischemic cardiomyopathy; I25.10 Atherosclerotic heart disease of native coronary artery without angina pectoris; I11.0 Hypertensive heart disease with heart failure; E87.6 Hypokalemia; E11.69 Type 2 diabetes mellitus with other specified complication; E66.9 Obesity, unspecified; E78.5 Hyperlipidemia, unspecified; Z79.01 Long term (current) use of anticoagulants; F17.200 Nicotine dependence, unspecified, uncomplicated; F10.929 Alcohol use, unspecified with intoxication, unspecified; Z79.82 Long term (current) use of aspirin; Z79.84 Long term (current) use of oral hypoglycemic drugs
CPT/HCPCS: 36415; 71046; 80048; 80069; 80076; 82077; 82947; 83735; 84484; 85025; 87635; 93005; 96361; 96365; 99284; 99285; G0378; A9270; J3480; J7030